=== PATIENT | male | born 1955 | race Caucasian/White ===

== ENCOUNTER 2021-04-25 10:30 | Inpatient (IN) | payer MEDICARE, BC ==
[~2021-04-25] VITALS: Ht 185.4 cm; Wt 157.2 kg
[2021-04-25] MEDS ORDERED: ACETAMINOPHEN 325 MG TABLET PO PRN (12:15)
[2021-04-25] MEDS ORDERED: METHYL SALICYLATE/MENTHOL TOPICAL OINTMENT 57GM TUBE. TP PRN (12:15)
[2021-04-25] MEDS ORDERED: MAGNESIUM HYDROXIDE 2,400 MG/30 ML ORAL.SUSP. PO PRN (12:15)
[2021-04-25] MEDS ORDERED: MAG HYDROX/AL HYDROX/SIMETH 30 ML ORAL.SUSP PO PRN ×2 (12:15→14:45)
[2021-04-25] MEDS ORDERED: SIMETHICONE 80 MG TAB.CHEW PO PRN (13:45)
[2021-04-25] MEDS ORDERED: guaiFENesin 300 MG/15 ML LIQUID PO PRN (13:45)
[2021-04-25] MEDS ORDERED: SENNOSIDES 8.6 MG TABLET PO PRN (13:45)
[2021-04-25] MEDS ORDERED: BISACODYL 10 MG SUPP.RECT RC PRN (13:45)
[2021-04-25] MEDS ORDERED: BISACODYL TAB 5 MG TABLET.DR. PO PRN (13:45)
[2021-04-25] MEDS: hydrALAZINE 25 MG TABLET PO SCH ×2 (14:00→21:33)
[2021-04-25] MEDS: ACETAMINOPHEN 500 MG TABLET PO SCH ×2 (14:00→21:34)
[2021-04-25] MEDS ORDERED: ACET500T33 PO (14:10)
[2021-04-25] MEDS ORDERED: HYDR30CR61 TP (14:10)
[2021-04-25] MEDS ORDERED: SPIR25TA5 PO (14:10)
[2021-04-25] MEDS ORDERED: MINE50OI TP (14:10)
[2021-04-25] MEDS ORDERED: MELA10TA7 PO (14:10)
[2021-04-25] MEDS ORDERED: LOPE2TAB27 PO ×2 (14:10)
[2021-04-25] MEDS ORDERED: INSU100I13 SQ (14:10)
[2021-04-25] MEDS ORDERED: SIME80TA14 PO (14:10)
[2021-04-25] MEDS ORDERED: POTA20TA4 PO (14:10)
[2021-04-25] MEDS ORDERED: [UNRECOGNIZED DRUG - OTHER] PO (14:10)
[2021-04-25] MEDS ORDERED: SENN-182 PO (14:10)
[2021-04-25] MEDS ORDERED: DULO60CA7 PO (14:10)
[2021-04-25] MEDS ORDERED: BUME2TAB3 PO (14:10)
[2021-04-25] MEDS ORDERED: HYDR-2868 PO (14:10)
[2021-04-25] MEDS ORDERED: ASPI-630 PO (14:10)
[2021-04-25] MEDS ORDERED: CYCL5TAB PO (14:10)
[2021-04-25] MEDS ORDERED: MENT3.5O TP (14:10)
[2021-04-25] MEDS ORDERED: LIPITOR80 MG PO (14:10)
[2021-04-25] MEDS ORDERED: CALC1TAB21 PO (14:10)
[2021-04-25] MEDS ORDERED: NYST15PO9 TP (14:10)
[2021-04-25] MEDS ORDERED: SITA100T PO (14:10)
[2021-04-25] MEDS ORDERED: INSU100C4 SQ (14:10)
[2021-04-25] MEDS ORDERED: METO2.5T PO (14:10)
[2021-04-25] MEDS ORDERED: PHEN26CR2 RC (14:10)
[2021-04-25] MEDS ORDERED: ARGI1POW4 PO (14:10)
[2021-04-25] MEDS ORDERED: MULT-121 PO (14:10)
[2021-04-25] MEDS ORDERED: TRAM50TA PO (14:10)
[2021-04-25] MEDS ORDERED: CARV25TA2 PO (14:10)
[2021-04-25] MEDS ORDERED: POLY17PO5 PO (14:10)
[2021-04-25] MEDS ORDERED: CLOP75TA PO (14:10)
[2021-04-25] MEDS ORDERED: BISA10SU4 RC (14:10)
[2021-04-25] MEDS ORDERED: BISA5TAB4 PO (14:10)
[2021-04-25] MEDS ORDERED: TRAZ-125 PO (14:10)
[2021-04-25] MEDS ORDERED: LIDO700A21 TP (14:10)
[2021-04-25] MEDS ORDERED: GUAI100L12 PO (14:13)
[2021-04-25] MEDS ORDERED: CYCLOBENZAPRINE 10 MG TABLET. PO PRN (14:45)
[2021-04-25] MEDS ORDERED: PHENYLEPH/MINERAL OIL/PETROLAT RECTAL OINTMENT TUBE. RC PRN (15:00)
[2021-04-25] MEDS ORDERED: LOPERAMIDE 2 MG CAPSULE PO PRN ×2 (15:00→15:15)
[2021-04-25] MEDS ORDERED: SALIVA STIMULANT AGENT 44ML SPRAY BOTTLE. PO PRN (15:15)
--- NOTE | 2021-04-25 15:30 | NUR ---
Admission Note with Justification for Admission to [facility] Patient admitted to [facility] for protective oversight for emergency stabilization of acute psychiatric crisis. Pt admitted from: LT Facility Mode of arrival: Facility Transport Accompanied By: LT Staff Precipitating behaviors that initiated intake and admission: Anxious, labile mood, grandiose, depressed, stating he wants to give up, expressing self harm thoughts, hitting head with hands Description of failure of out patient attempts at stabilization in previous setting list behavior and medication trials: Q15m checks, redirection, medication changes Behaviors and assessment findings upon admission: This nurse received report from Solange MODI at [facility] ([phone]). Pt admitted and orientated to unit. He is A&Ox4, denies SI/HI/VH/AH. He reports pain in his lower back and RUE, states he was informed by [facility] staff that [facility] would provide him with pain medications "right away." Pt does express grandiose statements such has talking about having a lot of money. Pt brought a CPAP machine; per Solange at [facility] their orders were to apply CPAP HS "at pt's home setting." Pt has a pressure ulcer on R heel, photograph taken. Per Solange at [facility], their wound care consisted of wound cleanser, silver alginate, ABD pad, and kirlex. Pt has already received his COVID and Flu vaccinations at [facility]. When CNAs attempted to transfer pt 2:1 with gait belt from w/c to bed to obtain weight, he began to refuse to cooperate and screamed profanities and yelled "I wish I had a gun so I could shoot myself." At the time of this writing staff unable to complete a head to toe skin assessment d/t pt elevated agitation in regards to standing/transferring. Plan: Admit for protective oversight for adjustment and stabilization of medications, behaviors and mood. Intense treatment regimen including groups, medication adjustments, therapy, consistent regimen for ADL's, self care, and sleep hygiene. Daily monitoring by Inpatient staff, Psychiatry, and Medical Physician.
[2021-04-25 15:43] VITALS: BP 123/79
[2021-04-25] MEDS: traMADol 50 MG TABLET PO PRN ×2 (15:51→21:58)
--- NOTE | 2021-04-25 15:54 | NUR ---
During medication administration pt was observed with a pen and paper. He states he is angry at [facility] for firmly encouraging him to stand and transfer to bed to be weighed. Pt stated, "I'm going to write that bitch up."
[2021-04-25] MEDS: INSULIN LISPRO 300 UNITS/3 ML VIAL. SQ SCH (16:30)
[2021-04-25] MEDS: LIDOCAINE (700MG/PATCH) PATCH. TP SCH (18:00)
--- NOTE | 2021-04-25 18:00 | NUR ---
Pt requesting to have a visit from a Corporate Treasurer, he states that he is a Yaz[employer]. Order placed for spiritual consult and voice message left with [facility] Corporate Treasurer Services ([phone]).
--- NOTE | 2021-04-25 18:29 | NUR ---
This nurse received a call from RIAN Narvaez at [facility]. She states after speaking with [facility] staff she learned that the settings on pt's CPAP are already preset, however at times he will refuse to wear it and staff will substitute with O2 2LPM via NC. Solange also reports that pt has history of being "manipulative" towards nursing staff as well as "pitting administration against nursing staff." She recommends staff going in to provide cares in pairs of 2 d/t this hx. Solange further reports that pt in the past has shown Liam Varner pictures of nude women on his cellphone, and claiming the women are his "girlfriend."
[2021-04-25] MEDS ORDERED: NON FORMULARY ITEM (Menthol/Zinc Oxide (Calmoseptine Ointment) 3.5 GM) TP SCH (21:00)
[2021-04-25] MEDS ORDERED: GLUTAMINE PO SCH (21:00)
[2021-04-25] MEDS: HYDROCORTISONE 2.5% RECTAL CREAM 30GM TUBE. RC SCH (21:00)
[2021-04-25] MEDS: MINERAL OIL/PETROLATUM TOPICAL CREAM 113GM JAR. TP SCH (21:00)
[2021-04-25] MEDS ORDERED: MELATONIN 3 MG TABLET PO SCH (21:00)
[2021-04-25] MEDS ORDERED: ARGININE PO SCH (21:00)
[2021-04-25] MEDS ORDERED: CALCIUM HMB PO SCH (21:00)
[2021-04-25 21:04] LABS: BACTERIA,URINE FEW /HPF (0-FEW); BILIRUBIN,URINE NEG (NEG); CLARITY,URINE CLEAR; COLOR,URINE YELLOW; GLUCOSE,URINE NEG (NEG); HYALINE CASTS, URINE FEW /HPF; NITRITE,URINE NEG (NEG); UROBILINOGEN,URINE 0.2 mg/dL (0.2 mg/dL); WBC,URINE 0 /HPF (0-4)
[2021-04-25] MEDS: ATORVASTATIN CALCIUM 20 MG TABLET PO SCH (21:29)
[2021-04-25] MEDS: traZODone 100 MG TABLET. PO SCH (21:29)
[2021-04-25] MEDS: CARVEDILOL 12.5 MG TABLET PO SCH (21:29)
[2021-04-25] MEDS: NYSTATIN TOPICAL POWDER 15GM BOTTLE. TP SCH (21:30)
[2021-04-25] MEDS: INSULIN GLARGINE SYRINGE. SQ SCH (22:09)
--- NOTE | 2021-04-26 00:03 | NUR ---
Nursing Note The patient was located in his room laying in bed for his assessment and medication pass. The patient was pleasant during interactions with this nurse and took his medication whole. The patient received PRN Tramadol per PRN order @ for shoulder pain. The patient was alert to name, date and location. The patient is currently sleeping in his room.
[2021-04-26] MEDS: traMADol 50 MG TABLET PO PRN ×4 (02:01→20:47)
[2021-04-26 03:12] LABS: HEMOGLOBIN A1C 6.6 % (4.8-5.6); THYROXINE 7.6 ug/dL (4.5-12.0)
[2021-04-26 06:31] VITALS: BP 110/77
[2021-04-26] MEDS: INSULIN LISPRO 300 UNITS/3 ML VIAL. SQ SCH ×3 (07:30→16:30)
[2021-04-26] MEDS: LINAGLIPTIN 5 MG TABLET PO SCH (08:34)
[2021-04-26] MEDS: hydrALAZINE 25 MG TABLET PO SCH (08:34)
[2021-04-26] MEDS: DULoxetine HCL 60 MG CAPSULE.DR PO SCH (08:34)
[2021-04-26] MEDS: CLOPIDOGREL BISULFATE 75 MG TABLET PO SCH (08:34)
[2021-04-26] MEDS: POTASSIUM CHLORIDE 10 MEQ TABLET.ER. PO SCH (08:34)
[2021-04-26] MEDS: CARVEDILOL 12.5 MG TABLET PO SCH ×2 (08:35→20:45)
[2021-04-26] MEDS: BUMETANIDE 1 MG TABLET PO SCH (08:35)
[2021-04-26] MEDS: ACETAMINOPHEN 500 MG TABLET PO SCH (08:36)
[2021-04-26] MEDS: ASPIRIN CHEWABLE 81 MG TABLET. PO SCH (08:36)
[2021-04-26] MEDS: LIDOCAINE (700MG/PATCH) PATCH. TP SCH (08:40)
[2021-04-26] MEDS: MINERAL OIL/PETROLATUM TOPICAL CREAM 113GM JAR. TP SCH (08:40)
[2021-04-26] MEDS: NYSTATIN TOPICAL POWDER 15GM BOTTLE. TP SCH (08:43)
[2021-04-26] MEDS: HYDROCORTISONE 2.5% RECTAL CREAM 30GM TUBE. RC SCH ×2 (08:44→20:43)
--- NOTE | 2021-04-26 08:54 | PDOC ---
Exam Note: Josef Note: Late entry for 04/25/2021.Please also refer to the separate dictated note~for this date of service dictated separately.~Patient seen individually. Discussed the patient with Nursing staff reviewed the chart.~Reviewed interim history and current functioning. Reviewed vital signs,~Labs/ Radiology~and current medica tions noted below. Continue current treatment with the changes noted in the dictated addendum note Assessment: Vital Signs/I&O: Vital Signs Date Time Temp Pulse Resp B/P (MAP) Pulse Ox O2 Delivery O2 Flow Rate FiO2 04/26/21 08:50 16 Room Air 04/26/21 08:35 90 110/77 04/26/21 06:31 97.3 93 I & O 04/25/21 04/25/21 04/26/21 15:00 23:00 07:00 Intake Total 480 ml Balance 480 ml Labs: Laboratory Tests Test 04/25/21 12:29 04/25/21 17:15 04/25/21 19:17 04/25/21 20:40 D-Dimer (Lucina) 0.55 mg/L (0.00-0.50) H Hemoglobin A1c 6.6 % (4.8-5.6) H Magnesium Level 2.1 mg/dL (1.8-2.4) Thyroxine (T4) 7.6 ug/dL (4.5-12.0) Total Triiodothyronine (TT3) 84 ng/dL (71-180) Glucose (Fingerstick) 169 mg/dL (70-99) H 157 mg/dL (70-99) H Urine Collection Type Unknown Urine Color Yellow Urine Clarity Clear Urine pH 5.5 Urine Specific [place] 1.010 Urine Protein Neg (NEG-TRACE) Urine Glucose (UA) Neg mg/dL (NEG) Urine Ketones (Stick) Neg mg/dL (NEG) Urine Blood Neg (NEG) Urine Nitrite Neg (NEG) Urine Bilirubin Neg (NEG) Urine Urobilinogen Dipstick 0.2 mg/dL (0.2 mg/dL) Urine Leukocyte Esterase Neg (NEG) Urine RBC 1-2 /HPF (0-2) Urine WBC 0 /HPF (0-4) Urine Squamous Epithelial Cells None /LPF Urine Bacteria Few /HPF (0-FEW) Urine Hyaline Casts Few /HPF Test 04/26/21 07:34 Glucose (Fingerstick) 84 mg/dL (70-99) Current Medications: Meds: Current Medications Medications (Trade) Dose Ordered Sig/Nicky Route PRN Reason Start Time Stop Time Status Last Admin Dose Admin Acetaminophen (Tylenol) 1,000 mg TID PO 04/25/21 14:00 04/26/21 08:36 Aspirin (Aspirin Chewable) 81 mg DAILY PO 04/26/21 09:00 04/26/21 08:36 Clopidogrel Bisulfate (Plavix) 75 mg DAILY PO 04/26/21 09:00 04/26/21 08:34 Duloxetine HCl (Cymbalta) 60 mg DAILY PO 04/26/21 09:00 04/26/21 08:34 Hydralazine HCl (Apresoline) 25 mg TID PO 04/25/21 14:00 04/26/21 08:34 Hydrocortisone (Proctosol-Hc) 1 neelima BID RC 04/25/21 21:00 04/26/21 08:44 Lidocaine (Lidoderm) 1 patch DAILY TP 04/25/21 18:00 04/26/21 08:40 Metolazone (Zaroxolyn) 2.5 mg QODAY PO 04/26/21 09:00 04/26/21 08:34 Nystatin (Nystop) 1 neelima BID TP 04/25/21 21:00 04/26/21 08:43 Potassium Chloride (Klor-Con) 30 meq DAILY PO 04/26/21 09:00 04/26/21 08:34 Spironolactone (Aldactone) 25 mg DAILY PO 04/26/21 09:00 04/26/21 08:34 Tramadol HCl (Ultram) 100 mg PRN Q4HRS PRN PO PAIN 04/25/21 13:45 04/26/21 08:50 Trazodone HCl (Desyrel) 200 mg HS PO 04/25/21 21:00 04/25/21 21:29 Atorvastatin Calcium (Lipitor) 80 mg QHS PO 04/25/21 21:00 04/25/21 21:29 Bumetanide (Bumex) 2 mg DAILY PO 04/26/21 09:00 04/26/21 08:35 Al Hydroxide/Mg Hydroxide (Mylanta Plus Xs) 30 ml PRN Q12HR PRN PO DYSPEPSIA 04/25/21 14:45 04/26/21 01:37 Carvedilol (Coreg) 37.5 mg BID PO 04/25/21 21:00 04/26/21 08:35 Insulin Glargine (Lantus Syringe) 48 unit QHS SQ 04/25/21 21:00 04/25/21 22:09 Melatonin (Melatonin) 9 mg QHS PO 04/25/21 21:00 04/25/21 21:29 Multi-Ingred Cream/Lotion/Oil/ Oint (Hydrocerin) 1 neelima BID TP 04/25/21 21:00 04/26/21 08:40 Multivitamins/ Calcium (Thera-M Plus) 1 tab DAILY PO 04/26/21 09:00 04/26/21 08:34 Linagliptin (Tradjenta) 5 mg DAILY PO 04/26/21 09:00 04/26/21 08:34 I have reviewed the current psychotropics carefully including drug interactions. Risk benefit ratio favors no change other than as noted in my dictated progress note. ESE LEVI MD Apr 26, 2021 08:54
[2021-04-26] MEDS ORDERED: SPIRONOLACTONE 25 MG TABLET PO SCH (09:00)
[2021-04-26] MEDS ORDERED: MULTIVITAMIN with MINERAL TABLET. PO SCH (09:00)
[2021-04-26] MEDS ORDERED: metOLazone 2.5 MG TABLET PO SCH (09:00)
--- NOTE | 2021-04-26 09:57 | NUR ---
Pt appropriate and cooperative this morning. He is compliant with whole medications. He denies SI/HI/VH/AH, he reports 10/10 pain in lower back and R shoulder, PRN medications given per MAR. He is A&Ox4. So far pt absent of exaggerated or labile affect, absent of physical/verbal aggression. He appears receptive to medication education and explanation for plan of day. He is able to make his needs known to staff. Plan of care continues, will pass to next shift.
[2021-04-26 11:40] LABS: THYROID STIM HORMONE (TSH) 1.914 uIU/mL (0.358-3.740)
--- NOTE | 2021-04-26 13:44 | NUR ---
Pt c/o of not being able to void urine completely. He states, "Something is wrong with my prostate." Per CNAs 150 mL has been emptied from his urinal x2 so far this shift and 250 mL at the start of shift. Pt speaks of his medical concerns in a self-deprecating manner, stating "I'm an utter shame," and "My life is a failure." Pt pending transfer to bed for a bladder scan.
--- NOTE | 2021-04-26 15:09 | NUR ---
Pt transferred to bed her for BM. During transfer he began to scream in pain, swear, and hit self in forehead with his hands. He states rolling onto the bed her is painful for his shoulder. He then began to speak of himself in a dramatic and negative fashion, "My life is worthless," "I'm a freak." Pt had BM and then urinated approx 300 mL. Post void bladder scan performed and revealed approx 0 mL. PRN Tramadol administered per SEP.
[2021-04-26 16:07] VITALS: BP 110/69
--- NOTE | 2021-04-26 17:34 | CONS ---
DATE OF CONSULTATION: 04/26/2021 ATTENDING PHYSICIAN: Dr. Jacobs. We were asked to see this patient for medical consultation. HISTORY OF PRESENT ILLNESS: The patient is a 66-year-old gentleman who is morbidly obese, multiple medical issues. He recently has been living at an extended care facility for the last 4 months, as he cannot take care of himself. He has what appears to be bipolar mood disorder. He is very low at this time, he has had some suicidal ideations; wants to bash his head in and ending the pain. He has also had labile moods with grandiose behavior. PAST MEDICAL HISTORY: Significant for morbid obesity. His weight in excess of 350 pounds. He has a history of old stroke, type 2 diabetes, degenerative arthritis in the knee, congestive heart failure and chronic kidney disease stage 3. ALLERGIES: He has no known drug allergies. MEDICATIONS: Reviewed. He has 40 of them by my count. They include Tylenol, aspirin, Lipitor, bisacodyl, Bumex, Coreg 37.5 mg b.i.d., Plavix, Flexeril, Cymbalta, guaifenesin, hydralazine, hydrocortisone, insulin, Lidoderm patch, Tradjenta, Imodium, magnesium hydroxide, melatonin, methyl salicylate, Zaroxolyn, nystatin, MiraLax, potassium, saliva stimulant, senna, simethicone, Aldactone, tramadol, Desyrel, and menthol. SOCIAL HISTORY: He is a nonsmoker, nondrinker. FAMILY HISTORY: Unobtainable. REVIEW OF SYSTEMS: Significant for his bipolar behavior. He is fairly alert, but when I saw him, his affect was flat. 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 There is also a nonhealing ulcer at the heel. PHYSICAL EXAMINATION: GENERAL: When I saw him, this is an obese, elderly gentleman with a flat affect. VITAL SIGNS: Initial vital signs showed a blood pressure of 110/77 mmHg. He is afebrile. Oxygen saturation 93% on room air. HEENT: Head is without trauma. Pupils are reactive. Sclerae nonicteric. Oropharynx is clear. NECK: Supple, no bruits. LUNGS: Good breath sounds. CARDIOVASCULAR: Regular heart tones. ABDOMEN: Morbidly obese. No guarding or rebound tenderness. EXTREMITIES: Show trace edema. There is surgical absence of the second and third toes of the right foot. There is a draining nonhealing ulcer of the right heel that has been dressed. SKIN: Warm and dry. PERTINENT LABORATORY STUDIES: Obtained from [facility] 2 days ago; his sodium was 133 mEq, potassium 3.2 mEq, creatinine 1.8 mg/dL, BUN 57. Hemoglobin 13.7 g with a white count of 7400. ASSESSMENT: 1. This 66-year-old gentleman has probable bipolar disorder in the depressed phase. 2. Morbid obesity. 3. Polypharmacy. He is on way too many medicines. 4. Underlying depression this admission. 5. Type 2 diabetes. 6. Nonhealing diabetic foot ulcer due to decreased circulation. RECOMMENDATIONS: 1. I will review his medication and try to simplify his regimen. He certainly does not need to be on half of these medications. I will take the liberty of stopping them. 2. Follow up chemistries. I do believe that his elevated creatinine is due to his diuresis. Thank you again for asking to see the patient for medical consultation. I will manage his meds for now and hopefully get him tuned up a bit. We should gladly follow along during his inpatient stay. LORI/CALIXTO DR: ANGEL/luis TID: [id number]
--- NOTE | 2021-04-26 17:47 | HP ---
ADMIT DATE: 04/25/2021 PSYCHIATRIC ADMISSION HISTORY/EVALUATION This is a late entry, date of service 04/25/2021, covers elements not covered in my initial note on 04/25/2021. I met with the patient on the evening of 04/25/2021 for this evaluation. Previously discussed with nursing staff and Shiloh Almanzar, audio visual collections coordinator. IDENTIFYING DATA: The patient is a 66-year-old male referred to us from [facility] by his primary care physician/psychiatrist on account of worsening symptoms of depression, increased anxiety, marked mood lability, being quite grandiose at other times and irritable. Reportedly, he has been depressed and wants to "give up." He has expressed thoughts of hurting himself, hitting himself in the head with his hands repeatedly observed by nursing staff. Behaviors have been deemed dangerous, unmanageable at the facility. He has failed outpatient psychiatric interventions resulting in this referral. CHIEF COMPLAINT: "Yes, I have been very depressed. I also have panic attacks. I have had these problems for about 6 years, but it is getting much worse recently. My of 25 years in 2017 from a pulmonary embolism. She was a tier lift operator. We went to bed at night and when I woke up in the morning she was gone. She was just age 51. 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 Everything changed after that. 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 He has been quite erratic in his behaviors; admits to feeling helpless, hopeless, worthless, but denies current suicidal ideation or homicidal ideation. No clear psychotic symptoms. Cognitively, he is reasonably intact. PAST PSYCHIATRIC HISTORY: As above. MEDICAL HISTORY: Morbid obesity, status post CVA, type 2 diabetes mellitus, osteoarthritis of the knees, CHF, chronic kidney disease stage III, hypertension, dysphagia, coronary artery bypass graft, obstructive sleep apnea, dysphagia, polyphagia, current pressure ulcer, right heel. ACCU-CHEKS: Before meals and at bedtime. CODE STATUS: Full code. DRUG ALLERGIES: Negative. DIET: Mechanical soft ADA renal, cardiac. Takes medications whole. Ambulates, 1-2 person transfer, in his own personal wheelchair. UA is awaited. Earlier in the day, per nursing report, the patient had some grandiose language, was verbally aggressive, resisting a transfer to the toilet. Reportedly, became angry at the DESULFURIZER OPERATOR and asked for paper and a pen to write a grievance against the DESULFURIZER OPERATOR. Per nursing report, he bragged "I am going to write that bitch up." Nursing staff had called me at that time, they have contacted the snf, who shared similar behaviors at their facility and suggested staff should go into the room in pairs. He is also wanting a spiritual consult. CURRENT PSYCHOTROPICS: Trazodone 200 mg at bedtime. He is also on a CPAP machine. FAMILY HISTORY: Noncontributory. SOCIAL HISTORY: No alcohol, drug abuse, physical, sexual or elder abuse history is noted. He is not known to be a perpetrator. REACTION TO HOSPITALIZATION: The patient accepting of it. REVIEW OF SYSTEMS: Ambulation impaired. No CV, , pulmonary, eye system symptoms on review. MENTAL STATUS EXAM: The patient was seen individually evening of 04/25/2021. He is very verbal, forthcoming, somewhat distractible, anxious, hyperverbal at times, but subjectively admits to feeling very depressed and anxious. No active suicidal or homicidal ideation. Cognitively reasonably intact. LABORATORY DATA: Reviewed. IMPRESSION: Major depressive disorder, recurrent; anxiety disorder, unspecified; impulse control disorder, unspecified. Rest as above. PLAN: Admit to Geropsychiatry unit at [facility]. I will see the patient daily individually from a psychiatric standpoint, medical followup, Dr. Gandhi/Dr. Hendrickson. Continue current psychotropics. Consider adding Zoloft or Celexa as an antidepressant post-baseline assessment. If marked mood lability is evident we will look at other options. ESTIMATED LENGTH OF STAY: 10-12 days. DISPOSITION PLANS: Back to snf when stable. YAIMA DR: Reid TID: [id number]
[2021-04-26] MEDS: ATORVASTATIN CALCIUM 20 MG TABLET PO SCH (20:44)
[2021-04-26] MEDS: traZODone 100 MG TABLET. PO SCH (20:44)
[2021-04-26] MEDS: INSULIN GLARGINE SYRINGE. SQ SCH (20:46)
--- NOTE | 2021-04-26 20:47 | NUR ---
Patient reports pain 8/10 in his back. PRN tramadol given for pain per patient request. Will continue to monitor.
--- NOTE | 2021-04-26 21:42 | PDOC ---
Exam Note: Josef Note: Please also refer to the separate dictated note~for this date of service dictated separately.~Patient seen individually. Discussed the patient with Nursing staff reviewed the chart.~Reviewed interim history and current functioning. Reviewed vital signs,~Labs/ Radiology~and current medications noted below. Continue current treatment with the changes noted in the dictated addendum note Assessment: Vital Signs/I&O: Vital Signs Date Time Temp Pulse Resp B/P (MAP) Pulse Ox O2 Delivery O2 Flow Rate FiO2 04/26/21 20:45 67 110/69 04/26/21 18:25 96 Room Air 04/26/21 17:22 18 04/26/21 16:07 97.5 I & O 04/25/21 04/25/21 04/26/21 15:00 23:00 07:00 Intake Total 480 ml Balance 480 ml Labs: Laboratory Tests Test 04/26/21 07:34 04/26/21 12:02 04/26/21 16:36 04/26/21 19:34 Glucose (Fingerstick) 84 mg/dL (70-99) 148 mg/dL (70-99) H 81 mg/dL (70-99) 182 mg/dL (70-99) H Current Medications: Meds: Laboratory Tests Test 04/26/21 07:34 04/26/21 12:02 04/26/21 16:36 04/26/21 19:34 Glucose (Fingerstick) 84 mg/dL 148 mg/dL 81 mg/dL 182 mg/dL Current Medications Medications (Trade) Dose Ordered Sig/Nicky Route PRN Reason Start Time Stop Time Status Last Admin Dose Admin Acetaminophen (Tylenol) 650 mg PRN Q6HRS PRN PO MILD PAIN / TEMP > 100.3'F 04/25/21 12:15 04/25/21 14:18 DC Multi-Ingredient Ointment (Analgesic [place]) 1 neelima PRN QID PRN TP MUSCLE PAIN 04/25/21 12:15 Al Hydroxide/Mg Hydroxide (Mylanta Plus Xs) 15 ml PRN AFTMEALHC PRN PO DYSPEPSIA 04/25/21 12:15 04/26/21 10:24 DC Magnesium Hydroxide (Milk Of Magnesia) 2,400 mg PRN QHS PRN PO 2nd choice CONSTIPATION 04/25/21 12:15 04/26/21 10:24 DC Acetaminophen (Tylenol) 1,000 mg TID PO 04/25/21 14:00 04/26/21 10:24 DC 04/26/21 08:36 Aspirin (Aspirin Chewable) 81 mg DAILY PO 04/26/21 09:00 04/26/21 08:36 Bisacodyl (Dulcolax Tab) 10 mg PRN BID PRN PO 3rd choice CONSTIPATION 04/25/21 13:45 04/26/21 10:24 DC Bisacodyl (Dulcolax Supp) 10 mg PRN DAILY PRN RC 4th choice CONSTIPATION 04/25/21 13:45 04/26/21 10:24 DC Clopidogrel Bisulfate (Plavix) 75 mg DAILY PO 04/26/21 09:00 04/26/21 08:34 Duloxetine HCl (Cymbalta) 60 mg DAILY PO 04/26/21 09:00 04/26/21 08:34 Guaifenesin (Robitussin) 200 mg PRN Q4HRS PRN PO COUGH 04/25/21 13:45 04/26/21 10:24 DC Hydralazine HCl (Apresoline) 25 mg TID PO 04/25/21 14:00 04/26/21 10:24 DC 04/26/21 08:34 Hydrocortisone (Proctosol-Hc) 1 neelima BID RC 04/25/21 21:00 04/26/21 20:43 Lidocaine (Lidoderm) 1 patch DAILY TP 04/25/21 18:00 04/26/21 08:40 Metolazone (Zaroxolyn) 2.5 mg QODAY PO 04/26/21 09:00 04/26/21 10:24 DC 04/26/21 08:34 Nystatin (Nystop) 1 neelima BID TP 04/25/21 21:00 04/26/21 10:24 DC 04/26/21 08:43 Polyethylene Glycol (miraLAX) 17 gm PRN DAILY PRN PO 1st choice CONSTIPATION 04/25/21 13:45 Potassium Chloride (Klor-Con) 30 meq DAILY PO 04/26/21 09:00 04/26/21 08:34 Sennosides (Senna) 8.6 mg PRN QHS PRN PO constipation 04/25/21 13:45 04/26/21 10:24 DC Simethicone (Gas-X) 80 mg PRN BID PRN PO gas 04/25/21 13:45 04/26/21 10:24 DC Spironolactone (Aldactone) 25 mg DAILY PO 04/26/21 09:00 04/26/21 10:24 DC 04/26/21 08:34 Tramadol HCl (Ultram) 100 mg PRN Q4HRS PRN PO PAIN 04/25/21 13:45 04/26/21 20:47 Trazodone HCl (Desyrel) 200 mg HS PO 04/25/21 21:00 04/26/21 20:44 Non-Formulary Medication (Arginine/ Glutamine/Calcium Hmb (Stephen Packet)) 1 each BID PO 04/25/21 21:00 04/25/21 15:06 DC Atorvastatin Calcium (Lipitor) 80 mg QHS PO 04/25/21 21:00 04/26/21 20:44 Bumetanide (Bumex) 2 mg DAILY PO 04/26/21 09:00 04/26/21 08:35 Al Hydroxide/Mg Hydroxide (Mylanta Plus Xs) 30 ml PRN Q12HR PRN PO DYSPEPSIA 04/25/21 14:45 04/26/21 10:24 DC 04/26/21 01:37 Carvedilol (Coreg) 37.5 mg BID PO 04/25/21 21:00 04/26/21 20:45 Cyclobenzaprine HCl (Flexeril) 5 mg PRN BID PRN PO MUSCLE SPASMS 04/25/21 14:45 04/26/21 10:24 DC Insulin Human Lispro (HumaLOG) 8 units TIDBFRMEAL SQ 04/25/21 16:30 04/26/21 12:18 Insulin Glargine (Lantus Syringe) 48 unit QHS SQ 04/25/21 21:00 04/26/21 20:46 Loperamide HCl (Imodium) 2 mg PRN Q1HR PRN PO severe DIARRHEA 04/25/21 15:00 04/26/21 10:24 DC Loperamide HCl (Imodium) 2 mg PRN Q6HRS PRN PO MILD-MOD DIARRHEA 04/25/21 15:15 04/26/21 10:24 DC Melatonin (Melatonin) 9 mg QHS PO 04/25/21 21:00 04/26/21 10:24 DC 04/25/21 21:29 Non-Formulary Medication (Menthol/Zinc Oxide (Calmoseptine Ointment)) 3.5 gm BID TP 04/25/21 21:00 04/25/21 14:56 DC Multi-Ingred Cream/Lotion/Oil/ Oint (Hydrocerin) 1 neelima BID TP 04/25/21 21:00 04/26/21 10:24 DC 04/26/21 08:40 Multivitamins/ Calcium (Thera-M Plus) 1 tab DAILY PO 04/26/21 09:00 04/26/21 10:24 DC 04/26/21 08:34 Phenyleph/Shark Oil/Min Oil/Petrol (Preparation H) 1 neelima PRN Q12HR PRN RC RECTAL PAIN 04/25/21 15:00 04/26/21 10:24 DC Linagliptin (Tradjenta) 5 mg DAILY PO 04/26/21 09:00 04/26/21 08:34 Saliva Substitute (Biotene Moisturizing Mouth) 1 spray PRN Q1HR PRN PO DRY MOUTH 04/25/21 15:15 Duloxetine HCl (Cymbalta) 30 mg DAILY PO 04/27/21 09:00 Current Medications Medications (Trade) Dose Ordered Sig/Nicky Route PRN Reason Start Time Stop Time Status Last Admin Dose Admin Aspirin (Aspirin Chewable) 81 mg DAILY PO 04/26/21 09:00 04/26/21 08:36 Clopidogrel Bisulfate (Plavix) 75 mg DAILY PO 04/26/21 09:00 04/26/21 08:34 Duloxetine HCl (Cymbalta) 60 mg DAILY PO 04/26/21 09:00 04/26/21 08:34 Metolazone (Zaroxolyn) 2.5 mg QODAY PO 04/26/21 09:00 04/26/21 10:24 DC 04/26/21 08:34 Potassium Chloride (Klor-Con) 30 meq DAILY PO 04/26/21 09:00 04/26/21 08:34 Spironolactone (Aldactone) 25 mg DAILY PO 04/26/21 09:00 04/26/21 10:24 DC 04/26/21 08:34 Bumetanide (Bumex) 2 mg DAILY PO 04/26/21 09:00 04/26/21 08:35 Multivitamins/ Calcium (Thera-M Plus) 1 tab DAILY PO 04/26/21 09:00 04/26/21 10:24 DC 04/26/21 08:34 Linagliptin (Tradjenta) 5 mg DAILY PO 04/26/21 09:00 04/26/21 08:34 I have reviewed the current psychotropics carefully including drug interactions. Risk benefit ratio favors no change other than as noted in my dictated progress note. Diagnosis: Problems: (1) Major depressive disorder, recurrent (2) Anxiety disorder, unspecified (3) Impulse control disorder, unspecified ESE LEVI MD Apr 26, 2021 21:41
--- NOTE | 2021-04-27 00:12 | NUR ---
Patient was interactive and pleasant during assessment. Throughout the shift he has had brief episodes of anger, in which he swears and yells out, then immediately apologizes. Patient stated it frustrates him that he cannot do things for himself anymore and that he is in constant pain from his back, shoulder and arm. He asked nurse if she thought he has Tourette Syndrome. Nurse stated that it is not likely, his word outbursts come when he is angry, not just randomly like what is usually observed in Tourettes. Patient then stated that he feels frustrated often and may have "anger management" issues. Patient has not had any episodes of "hitting himself in the head" so far this shift and denies SI when asked directly. Patient compliant with medications and SQ insulin injection. Right heel pressure wound cleansed with saline wash, then wrapped with ABD pad and Kerlix per directions from nurse on former shift. Wound consult had previously been ordered. Patient stated that he was feeling anxious at around 2300, he has no prescribed anxiety medication available. This nurse spoke with Lyn, nursing linen room supervisor, about getting a bariatric bed for patient. He is 6'3" and 334 LBS and is too tall for the [facility] bed. [facility] ordered bariatric bed, which will be here 04/27 at around 0800.
[2021-04-27] MEDS: traMADol 50 MG TABLET PO PRN ×2 (01:57→06:06)
--- NOTE | 2021-04-27 02:04 | NUR ---
patient requested PRN pain medication for back pain, arm pain and shoulder pain. PRN tramadol provided as prescribed. Will continue to monitor.
--- NOTE | 2021-04-27 06:06 | NUR ---
Patient has been asking for PRN tramadol since 0500. Tramadol given per order PRN Q4hrs. Patients pain does not seem to be controlled with Tramadol. Will pass on in shift report to day nurse to speak to hospitalist about it.
[2021-04-27 06:19] VITALS: BP 94/62
[2021-04-27] MEDS: INSULIN LISPRO 300 UNITS/3 ML VIAL. SQ SCH ×3 (07:30→16:30)
--- NOTE | 2021-04-27 07:52 | NUR ---
Pt's morning blood sugar 64, 8 oz of orange juice provided and insulin held
[2021-04-27] MEDS: HYDROCORTISONE 2.5% RECTAL CREAM 30GM TUBE. RC SCH ×2 (09:00→20:58)
[2021-04-27] MEDS ORDERED: DULoxetine HCL 30 MG CAPSULE.DR PO SCH (09:00)
[2021-04-27] MEDS: LIDOCAINE (700MG/PATCH) PATCH. TP SCH (09:20)
[2021-04-27] MEDS: BUMETANIDE 1 MG TABLET PO SCH (09:20)
[2021-04-27] MEDS: CLOPIDOGREL BISULFATE 75 MG TABLET PO SCH (09:21)
[2021-04-27] MEDS: LINAGLIPTIN 5 MG TABLET PO SCH (09:21)
[2021-04-27] MEDS: DULoxetine HCL 60 MG CAPSULE.DR PO SCH (09:21)
[2021-04-27] MEDS: ASPIRIN CHEWABLE 81 MG TABLET. PO SCH (09:21)
[2021-04-27] MEDS: POTASSIUM CHLORIDE 10 MEQ TABLET.ER. PO SCH (09:21)
[2021-04-27] MEDS: CARVEDILOL 12.5 MG TABLET PO SCH ×2 (09:22→20:58)
--- NOTE | 2021-04-27 11:03 | NUR ---
Pt began the morning calling out repeatedly for assistance in a rapid fashion. After pt was informed that someone would assist him as soon as they are able pt called out from his room loudly and very dramatically, "Oh, I guess everyone is too busy to help me!" This nurse, who was assembling his morning medications in the S Nurse station by his room, called out to him by name and said that I was on my way. Upon entering pt's room he appeared to be sulking in bed and said, "I'm sorry for yelling. I was told to 'knock it off'." At no time did any staff member instruct pt to "knock it off" in regards to any behavior during the morning. Pt A&O x4 absent of SI/HI/VH/AH/delusions. Pt compliant with morning medications, Lidocaine patch applied to R shoulder. His bedside urinal was emptied which contained approx 150 mL of clear dark yellow urine. The unit is pending a delivery for a bariatric bed for pt to sleep in. When asked what he needed assistance with which required a rapid repetition of yelling out for staff pt replied, "I need the head of my bed lowered a little." His request was accommodated for. Pt is currently in bed sleeping slightly on his L side. His Tramadol order has been d/c by Dr Hendrickson, and he has given a new order for Percocet 10/325mg 1 tab PO Q6HPRN for pain. Pt is pending dressing change and assessment to wound on R heel. He is also pending a wound care consult during the weekday. Plan of care continues, will pass to next shift.
--- NOTE | 2021-04-27 12:40 | PN ---
DATE: 04/26/2021 PSYCHIATRIC PROGRESS NOTE SUBJECTIVE: I met with the patient in his room. Discussed with RIAN Pappas. The patient slept 4-1/2 hours previous night. Alert, oriented x4. Denies suicidal ideation. Compliant with medications. However, as I met with him in the evening, as I entered the room, he was hitting his head really hard with his hand, complained of having back pain, but he was not able to get the next dosage of tramadol for another 45 minutes. I discussed this with RIAN Restrepo at the shift manager. He denies suicidal ideation. He has been making statements that he feels shameful of himself. He has had limited cooperation with transfers, or for rolling on to his bed, needing a Shyam lift. REVIEW OF SYSTEMS: Positive for back pain, impaired ambulation. No CV, , pulmonary, eye system symptoms on review. MENTAL STATUS EXAMINATION: Reasonably oriented. Speech has some latency coherent. Abstraction fair. Computation impaired. Language function intact. Mood and affect depressed, quiet, withdrawn, irritable. Labs reviewed. Denies suicidal ideation. DIAGNOSIS: Major depressive disorder, severe; anxiety disorder, unspecified. PLAN: Start Cymbalta 30 mg a day. We will increase gradually. Cymbalta will be preferable given his significant pain symptoms. I addressed this at some length with him. Maintain trazodone 200 mg at bedtime. Reviewed drug interactions. SEB/JORGE LUIS DR: Reid TID: [id number]
--- NOTE | 2021-04-27 13:41 | NUR ---
Per Solange at [facility] during pre-admission report, pt's wound care on R heel consisted of wound cleanser, silver alginate, ABD pad, and kirlex. [facility] does not have silver alginate dressings, however we do have Chitosan-based gelling fiber with antimicrobial silver. This nurse spoke with Cushion Assembler Olga, who suggested that this dressing may be a suitable substitute that is closest to [facility]'s wound care until we get further guidance from [facility]'s wound care nurse. Wound cleansed, chitosan-based fiber with silver pad and ABD pad applied, wrapped with kirlex.
--- NOTE | 2021-04-27 15:24 | NUR ---
Received a call from Froylan, pt's son/POJone, inquiring to speak to pt. Pt consented to speak with son. Prior to transfer of call, Froylan spoke of his concerns regarding pt's hx of behaviors. Froylan reported that pt is "cyclical and on going" with dramatic behaviors and language, and states he has copious text messages from pt in the past where pt has threatened suicide or implied about . Froylan also states that this is the 1st successful hospitalization that LTC has been able to do with pt, and the last time LTC attempted inpatient psych care that pt "tried to put himself in hospice out of attention." Froylan states he is concerned about his father "talking himself out of the hospitalization," and stated that once he was on a 48 hour suicide hold after the of his and somehow "convinced the assistant professor nurse education to let him go after 4 hours." Froylan also states that prior to admission pt (who is a self sign) sent texts saying that he was "coerced" to sign the consents for treatment for [facility]. This nurse encouraged Froylan to speak his concerns with SW on Wednesday, and the call was transferred to pt.
[2021-04-27 15:46] VITALS: BP 118/89
[2021-04-27] MEDS: oxyCODONE/APAP 10/325 1 TAB TABLET PO PRN ×2 (16:15→23:49)
[2021-04-27] MEDS: ATORVASTATIN CALCIUM 20 MG TABLET PO SCH (20:57)
[2021-04-27] MEDS: traZODone 100 MG TABLET. PO SCH (20:57)
[2021-04-27] MEDS: INSULIN GLARGINE SYRINGE. SQ SCH (21:04)
--- NOTE | 2021-04-27 21:46 | PDOC ---
Exam Note: Josef Note: Please also refer to the separate dictated note~for this date of service dictated separately.~Patient seen individually. Discussed the patient with Nursing staff reviewed the chart.~Reviewed interim history and current functioning. Reviewed vital signs,~Labs/ Radiology~and current medications noted below. Continue current treatment with the changes noted in the dictated addendum note Assessment: Vital Signs/I&O: Vital Signs Date Time Temp Pulse Resp B/P (MAP) Pulse Ox O2 Delivery O2 Flow Rate FiO2 04/27/21 20:58 92 118/89 04/27/21 15:46 97.4 18 98 Room Air 04/27/21 06:19 2.0 I & O 04/26/21 04/26/21 04/27/21 15:00 23:00 07:00 Intake Total 750 ml 840 ml Output Total 650 ml 975 ml Balance 100 ml -135 ml Labs: Laboratory Tests Test 04/27/21 07:39 04/27/21 11:43 04/27/21 16:56 04/27/21 20:50 Glucose (Fingerstick) 64 mg/dL (70-99) L 102 mg/dL (70-99) H 152 mg/dL (70-99) H 134 mg/dL (70-99) H Current Medications: Meds: Laboratory Tests Test 04/27/21 07:39 04/27/21 11:43 04/27/21 16:56 04/27/21 20:50 Glucose (Fingerstick) 64 mg/dL 102 mg/dL 152 mg/dL 134 mg/dL Current Medications Medications (Trade) Dose Ordered Sig/Nicky Route PRN Reason Start Time Stop Time Status Last Admin Dose Admin Acetaminophen (Tylenol) 650 mg PRN Q6HRS PRN PO MILD PAIN / TEMP > 100.3'F 04/25/21 12:15 04/25/21 14:18 DC Multi-Ingredient Ointment (Analgesic [place]) 1 neelima PRN QID PRN TP MUSCLE PAIN 04/25/21 12:15 Al Hydroxide/Mg Hydroxide (Mylanta Plus Xs) 15 ml PRN AFTMEALHC PRN PO DYSPEPSIA 04/25/21 12:15 04/26/21 10:24 DC Magnesium Hydroxide (Milk Of Magnesia) 2,400 mg PRN QHS PRN PO 2nd choice CONSTIPATION 04/25/21 12:15 10/16/21 10:24 DC Acetaminophen (Tylenol) 1,000 mg TID PO 04/25/21 14:00 04/26/21 10:24 DC 04/26/21 08:36 Aspirin (Aspirin Chewable) 81 mg DAILY PO 04/26/21 09:00 04/27/21 09:21 Bisacodyl (Dulcolax Tab) 10 mg PRN BID PRN PO 3rd choice CONSTIPATION 04/25/21 13:45 04/26/21 10:24 DC Bisacodyl (Dulcolax Supp) 10 mg PRN DAILY PRN RC 4th choice CONSTIPATION 04/25/21 13:45 04/26/21 10:24 DC Clopidogrel Bisulfate (Plavix) 75 mg DAILY PO 04/26/21 09:00 04/27/21 09:21 Duloxetine HCl (Cymbalta) 60 mg DAILY PO 04/26/21 09:00 04/27/21 20:03 DC 04/27/21 09:21 Guaifenesin (Robitussin) 200 mg PRN Q4HRS PRN PO COUGH 04/25/21 13:45 04/26/21 10:24 DC Hydralazine HCl (Apresoline) 25 mg TID PO 04/25/21 14:00 04/26/21 10:24 DC 04/26/21 08:34 Hydrocortisone (Proctosol-Hc) 1 neelima BID RC 04/25/21 21:00 04/27/21 09:00 Lidocaine (Lidoderm) 1 patch DAILY TP 04/25/21 18:00 04/27/21 09:20 Metolazone (Zaroxolyn) 2.5 mg QODAY PO 04/26/21 09:00 04/26/21 10:24 DC 04/26/21 08:34 Nystatin (Nystop) 1 neelima BID TP 04/25/21 21:00 04/26/21 10:24 DC 04/26/21 08:43 Polyethylene Glycol (miraLAX) 17 gm PRN DAILY PRN PO 1st choice CONSTIPATION 04/25/21 13:45 Potassium Chloride (Klor-Con) 30 meq DAILY PO 04/26/21 09:00 04/27/21 09:21 Sennosides (Senna) 8.6 mg PRN QHS PRN PO constipation 04/25/21 13:45 04/26/21 10:24 DC Simethicone (Gas-X) 80 mg PRN BID PRN PO gas 04/25/21 13:45 04/26/21 10:24 DC Spironolactone (Aldactone) 25 mg DAILY PO 04/26/21 09:00 04/26/21 10:24 DC 04/26/21 08:34 Tramadol HCl (Ultram) 100 mg PRN Q4HRS PRN PO PAIN 04/25/21 13:45 04/27/21 10:01 DC 04/27/21 06:06 Trazodone HCl (Desyrel) 200 mg HS PO 04/25/21 21:00 04/27/21 20:57 Non-Formulary Medication (Arginine/ Glutamine/Calcium Hmb (Stephen Packet)) 1 each BID PO 04/25/21 21:00 04/25/21 15:06 DC Atorvastatin Calcium (Lipitor) 80 mg QHS PO 04/25/21 21:00 04/27/21 20:57 Bumetanide (Bumex) 2 mg DAILY PO 04/26/21 09:00 04/27/21 09:20 Al Hydroxide/Mg Hydroxide (Mylanta Plus Xs) 30 ml PRN Q12HR PRN PO DYSPEPSIA 04/25/21 14:45 04/26/21 10:24 DC 04/26/21 01:37 Carvedilol (Coreg) 37.5 mg BID PO 04/25/21 21:00 04/27/21 20:58 Cyclobenzaprine HCl (Flexeril) 5 mg PRN BID PRN PO MUSCLE SPASMS 04/25/21 14:45 04/26/21 10:24 DC Insulin Human Lispro (HumaLOG) 8 units TIDBFRMEAL SQ 04/25/21 16:30 04/26/21 12:18 Insulin Glargine (Lantus Syringe) 48 unit QHS SQ 04/25/21 21:00 04/27/21 21:04 Loperamide HCl (Imodium) 2 mg PRN Q1HR PRN PO severe DIARRHEA 04/25/21 15:00 04/26/21 10:24 DC Loperamide HCl (Imodium) 2 mg PRN Q6HRS PRN PO MILD-MOD DIARRHEA 04/25/21 15:15 04/26/21 10:24 DC Melatonin (Melatonin) 9 mg QHS PO 04/25/21 21:00 04/26/21 10:24 DC 04/25/21 21:29 Non-Formulary Medication (Menthol/Zinc Oxide (Calmoseptine Ointment)) 3.5 gm BID TP 04/25/21 21:00 04/25/21 14:56 DC Multi-Ingred Cream/Lotion/Oil/ Oint (Hydrocerin) 1 neelima BID TP 04/25/21 21:00 04/26/21 10:24 DC 04/26/21 08:40 Multivitamins/ Calcium (Thera-M Plus) 1 tab DAILY PO 04/26/21 09:00 04/26/21 10:24 DC 04/26/21 08:34 Phenyleph/Shark Oil/Min Oil/Petrol (Preparation H) 1 neelima PRN Q12HR PRN RC RECTAL PAIN 04/25/21 15:00 04/26/21 10:24 DC Linagliptin (Tradjenta) 5 mg DAILY PO 04/26/21 09:00 04/27/21 09:21 Saliva Substitute (Biotene Moisturizing Mouth) 1 spray PRN Q1HR PRN PO DRY MOUTH 04/25/21 15:15 Duloxetine HCl (Cymbalta) 30 mg DAILY PO 04/27/21 09:00 04/27/21 07:48 DC Oxycodone/ Acetaminophen (Percocet 10/325) 1 tab PRN Q6HRS PRN PO PAIN 04/27/21 10:00 04/27/21 16:15 Duloxetine HCl (Cymbalta) 90 mg DAILY PO 04/28/21 09:00 Current Medications Medications (Trade) Dose Ordered Sig/Nicky Route PRN Reason Start Time Stop Time Status Last Admin Dose Admin Oxycodone/ Acetaminophen (Percocet 10/325) 1 tab PRN Q6HRS PRN PO PAIN 04/27/21 10:00 04/27/21 16:15 I have reviewed the current psychotropics carefully including drug interactions. Risk benefit ratio favors no change other than as noted in my dictated progress note. Diagnosis: Problems: (1) Major depressive disorder, severe (2) Impulse control disorder, unspecified (3) Anxiety disorder, unspecified AMITA,MAN M MD Apr 27, 2021 21:46
--- NOTE | 2021-04-27 22:59 | NUR ---
Pt laying in bed this evening. Pt interactive and compliant with whole medications. Pt attention seeking and yelling out occasionally. Pt c/o pain to right shoulder 04/20. Pt was informed that he had 2 more hours to wait to receive pain medication.
[2021-04-28 06:03] VITALS: BP 106/73
[2021-04-28] MEDS: oxyCODONE/APAP 10/325 1 TAB TABLET PO PRN ×3 (06:05→21:01)
[2021-04-28] MEDS: INSULIN LISPRO 300 UNITS/3 ML VIAL. SQ SCH ×3 (07:30→17:49)
[2021-04-28] MEDS: HYDROCORTISONE 2.5% RECTAL CREAM 30GM TUBE. RC SCH (09:00)
[2021-04-28] MEDS: LIDOCAINE (700MG/PATCH) PATCH. TP SCH (09:37)
[2021-04-28] MEDS: ASPIRIN CHEWABLE 81 MG TABLET. PO SCH (09:38)
[2021-04-28] MEDS: POTASSIUM CHLORIDE 10 MEQ TABLET.ER. PO SCH (09:38)
[2021-04-28] MEDS: DULoxetine HCL 30 MG CAPSULE.DR PO SCH (09:38)
[2021-04-28] MEDS: LINAGLIPTIN 5 MG TABLET PO SCH (09:38)
[2021-04-28] MEDS: CLOPIDOGREL BISULFATE 75 MG TABLET PO SCH (09:38)
[2021-04-28] MEDS: BUMETANIDE 1 MG TABLET PO SCH (09:39)
[2021-04-28] MEDS: CARVEDILOL 12.5 MG TABLET PO SCH ×2 (09:39→21:00)
--- NOTE | 2021-04-28 10:38 | EKG ---
[address] [address] Test Date: 2021-04-25 Test Time: 21:26:45 Pat Name: MARTA ARIZA Department: Room: [address] [place] [address] Gender: M Nurse Obgyn: : 1955 Requested By: ESE LEVI Order Number: [id number] Reading MD: Oswaldo Arguello MD Measurements Intervals [place] Rate: P: WA: QRS: QRSD: T: QT: QTc: Interpretive Statements POOR QUALITY EKG LBBB POOR R WAVE PROGRESSION CONSIDER V-PACED RHYTHM POSSIBLE UNDERLYING ATRIAL FIBRILLATION REPEAT 12 LEAD Electronically Signed On 04-28-2021 10:38:25 CDT by Oswaldo Arguello MD
--- NOTE | 2021-04-28 12:15 | NUR ---
ACTIVITY THERAPY ASSESSMENT completed based on notes, observation and interview. Pt was sitting in the hallway eating his lunch. Pt was willing to answer assessment questions and was pleasant. SOIL SCIENCE TEACHER, asked what activities he enjoys and he said Richard, poker and watching the Lyst game. Pt went off topic a couple of times but was redirectable. Pt talked in length about his . 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 Pt was able to answer orientation questions without error. Pt did express that he acted poorly towards staff and asked SOIL SCIENCE TEACHER to extend his apology. Pt was offered a few magazines to keep in his room which he accepted. Initial goal aimed to increase socialization and self-esteem development. Pt will participate in at least five Activity Therapy session per week. Addendum: 04/28/21 at 1556 by FORTUNATO NAM ACT Pt denied SI during time of assessment but said that early in the morning he experienced SI Addendum: 05/12/21 at 1313 by FORTUNATO NAM ACT Goal changed 05/12:Pt will participate in at all Activity Therapy session offered
--- NOTE | 2021-04-28 13:00 | NUR ---
Nursing note: Pt has been attention seeking and somatic this shift. Upon entering his room this AM, he immediately began apologizing for not being "cooperative". Pt then stated that he needed to get into bed to lay down in order to urinate because "I can't pee while sitting in this wheelchair". Pt encouraged to use the toilet when he needed to go to the bathroom, but was insistent on using the urinal. Pt agreed to let me change the dressing on his heel first. Therapy then walked in and assisted pt back to bed with the intent of working on exercises. Pt stated he hasn't "been able to bear weight for several months." He was then able to stand up from his wheelchair with some assistance and transfer himself to his bed. When therapy asked him to do exercises, he very dramatically laid himself down in his bed and proceeded to turn from one side to another in order to get his pants down. Pt was getting angry with himself and yelling out, attempting to yell out encouraging words for himself in order to complete his task. Pt continued to attempt to get his pants off on his own and stated "I'm sorry you guys have to witness this and me being overdramatic and hopeless." Pt was assisted with his urinal and began massaging his lower abdomen stating "you just have to milk the cow." Pt continued to do this for a short time and then said he was done. Pt did not urinate but said "the pressure was relieved". Pt continued to lay in bed to allow me to finish his dressing change. Pt's leg was propped up on pillows to allow for leg to be wrapped easier. Pt continued yell out, saying another staff member was needed to hold his leg up. He then started yelling at himself while holding onto the side rail, "Don't hyperventilate! Don't hyperventilate! Just breathe! You can do it!" I was encouraging him the entire time, that with his leg being propped on the pillow, he did not need to hold his leg up and that I was just about finished with his dressing. Pt then began hitting himself in the face with his hands. He quickly stopped with redirection and apologized for his behaviors. Will continue to monitor.
--- NOTE | 2021-04-28 15:49 | NUR ---
WEEKLY ACTIVITY THERAPY NOTE Date of Admission:04/25/21 Date of AT Assessment: 04/28 Precipitating behaviors that initiated intake and admission:Anxious, labile mood, grandiose, depressed, stating he wants to give up, expressing self harm thoughts, hitting head with hands Goal aimed: increase socialization and self-esteem development Initial Goal: Pt will participate in at least five Activity Therapy session per week Weekly progress towards goal: goal evaluation begins next week Group participation level: NA Weekly highlights: arrived on [facility] Behaviors observed: Plan: goal evaluation begins next week Beneficial adaptations: TBD
[2021-04-28 15:50] VITALS: BP 117/80
[2021-04-28] MEDS: traZODone 100 MG TABLET. PO SCH (20:59)
[2021-04-28] MEDS: ATORVASTATIN CALCIUM 20 MG TABLET PO SCH (20:59)
[2021-04-28] MEDS ORDERED: HYDROCORTISONE 2.5% RECTAL CREAM 30GM TUBE. RC PRN (21:00)
[2021-04-28] MEDS: INSULIN GLARGINE SYRINGE. SQ SCH (21:03)
--- NOTE | 2021-04-28 21:37 | PDOC ---
Exam Note: Josef Note: Please also refer to the separate dictated note~for this date of service dictated separately.~Patient seen individually. Discussed the patient with Nursing staff reviewed the chart.~Reviewed interim history and current functioning. Reviewed vital signs,~Labs/ Radiology~and current medications noted below. Continue current treatment with the changes noted in the dictated addendum note Assessment: Vital Signs/I&O: Vital Signs Date Time Temp Pulse Resp B/P (MAP) Pulse Ox O2 Delivery O2 Flow Rate FiO2 04/28/21 21:00 100 117/80 04/28/21 15:50 97.0 20 96 04/28/21 06:03 2.0 04/27/21 15:46 Room Air I & O 04/27/21 04/27/21 04/28/21 15:00 23:00 07:00 Intake Total 480 ml 600 ml Output Total 0 ml 800 ml Balance 480 ml 600 ml -800 ml Labs: Laboratory Tests Test 04/28/21 07:26 04/28/21 11:54 04/28/21 16:46 04/28/21 19:19 Glucose (Fingerstick) 84 mg/dL (70-99) 127 mg/dL (70-99) H 155 mg/dL (70-99) H 173 mg/dL (70-99) H Current Medications: Meds: Laboratory Tests Test 04/28/21 07:26 04/28/21 11:54 04/28/21 16:46 04/28/21 19:19 Glucose (Fingerstick) 84 mg/dL 127 mg/dL 155 mg/dL 173 mg/dL Current Medications Medications (Trade) Dose Ordered Sig/Nicky Route PRN Reason Start Time Stop Time Status Last Admin Dose Admin Acetaminophen (Tylenol) 650 mg PRN Q6HRS PRN PO MILD PAIN / TEMP > 100.3'F 04/25/21 12:15 04/25/21 14:18 DC Multi-Ingredient Ointment (Analgesic [place]) 1 neelima PRN QID PRN TP MUSCLE PAIN 04/25/21 12:15 Al Hydroxide/Mg Hydroxide (Mylanta Plus Xs) 15 ml PRN AFTMEALHC PRN PO DYSPEPSIA 04/25/21 12:15 04/26/21 10:24 DC Magnesium Hydroxide (Milk Of Magnesia) 2,400 mg PRN QHS PRN PO 2nd choice CONSTIPATION 04/25/21 12:15 04/26/21 10:24 DC Acetaminophen (Tylenol) 1,000 mg TID PO 04/25/21 14:00 04/26/21 10:24 DC 04/26/21 08:36 Aspirin (Aspirin Chewable) 81 mg DAILY PO 04/26/21 09:00 04/28/21 09:38 Bisacodyl (Dulcolax Tab) 10 mg PRN BID PRN PO 3rd choice CONSTIPATION 04/25/21 13:45 04/26/21 10:24 DC Bisacodyl (Dulcolax Supp) 10 mg PRN DAILY PRN RC 4th choice CONSTIPATION 04/25/21 13:45 04/26/21 10:24 DC Clopidogrel Bisulfate (Plavix) 75 mg DAILY PO 04/26/21 09:00 04/28/21 09:38 Duloxetine HCl (Cymbalta) 60 mg DAILY PO 04/26/21 09:00 04/27/21 20:03 DC 04/27/21 09:21 Guaifenesin (Robitussin) 200 mg PRN Q4HRS PRN PO COUGH 04/25/21 13:45 04/26/21 10:24 DC Hydralazine HCl (Apresoline) 25 mg TID PO 04/25/21 14:00 04/26/21 10:24 DC 04/26/21 08:34 Hydrocortisone (Proctosol-Hc) 1 neelima BID RC 04/25/21 21:00 04/28/21 11:07 DC 04/27/21 09:00 Lidocaine (Lidoderm) 1 patch DAILY TP 04/25/21 18:00 04/28/21 09:37 Metolazone (Zaroxolyn) 2.5 mg QODAY PO 04/26/21 09:00 04/26/21 10:24 DC 04/26/21 08:34 Nystatin (Nystop) 1 neelima BID TP 04/25/21 21:00 04/26/21 10:24 DC 04/26/21 08:43 Polyethylene Glycol (miraLAX) 17 gm PRN DAILY PRN PO 1st choice CONSTIPATION 04/25/21 13:45 Potassium Chloride (Klor-Con) 30 meq DAILY PO 04/26/21 09:00 04/28/21 09:38 Sennosides (Senna) 8.6 mg PRN QHS PRN PO constipation 04/25/21 13:45 04/26/21 10:24 DC Simethicone (Gas-X) 80 mg PRN BID PRN PO gas 04/25/21 13:45 04/26/21 10:24 DC Spironolactone (Aldactone) 25 mg DAILY PO 04/26/21 09:00 04/26/21 10:24 DC 04/26/21 08:34 Tramadol HCl (Ultram) 100 mg PRN Q4HRS PRN PO PAIN 04/25/21 13:45 04/27/21 10:01 DC 04/27/21 06:06 Trazodone HCl (Desyrel) 200 mg HS PO 04/25/21 21:00 04/28/21 20:59 Non-Formulary Medication (Arginine/ Glutamine/Calcium Hmb (Stephen Packet)) 1 each BID PO 04/25/21 21:00 04/25/21 15:06 DC Atorvastatin Calcium (Lipitor) 80 mg QHS PO 04/25/21 21:00 04/28/21 20:59 Bumetanide (Bumex) 2 mg DAILY PO 04/26/21 09:00 04/28/21 09:39 Al Hydroxide/Mg Hydroxide (Mylanta Plus Xs) 30 ml PRN Q12HR PRN PO DYSPEPSIA 04/25/21 14:45 04/26/21 10:24 DC 04/26/21 01:37 Carvedilol (Coreg) 37.5 mg BID PO 04/25/21 21:00 04/28/21 21:00 Cyclobenzaprine HCl (Flexeril) 5 mg PRN BID PRN PO MUSCLE SPASMS 04/25/21 14:45 04/26/21 10:24 DC Insulin Human Lispro (HumaLOG) 8 units TIDBFRMEAL SQ 04/25/21 16:30 04/28/21 17:49 Insulin Glargine (Lantus Syringe) 48 unit QHS SQ 04/25/21 21:00 04/28/21 21:03 Loperamide HCl (Imodium) 2 mg PRN Q1HR PRN PO severe DIARRHEA 04/25/21 15:00 04/26/21 10:24 DC Loperamide HCl (Imodium) 2 mg PRN Q6HRS PRN PO MILD-MOD DIARRHEA 04/25/21 15:15 04/26/21 10:24 DC Melatonin (Melatonin) 9 mg QHS PO 04/25/21 21:00 04/26/21 10:24 DC 04/25/21 21:29 Non-Formulary Medication (Menthol/Zinc Oxide (Calmoseptine Ointment)) 3.5 gm BID TP 04/25/21 21:00 04/25/21 14:56 DC Multi-Ingred Cream/Lotion/Oil/ Oint (Hydrocerin) 1 neelima BID TP 04/25/21 21:00 04/26/21 10:24 DC 04/26/21 08:40 Multivitamins/ Calcium (Thera-M Plus) 1 tab DAILY PO 04/26/21 09:00 04/26/21 10:24 DC 04/26/21 08:34 Phenyleph/Shark Oil/Min Oil/Petrol (Preparation H) 1 neelima PRN Q12HR PRN RC RECTAL PAIN 04/25/21 15:00 04/26/21 10:24 DC Linagliptin (Tradjenta) 5 mg DAILY PO 04/26/21 09:00 04/28/21 09:38 Saliva Substitute (Biotene Moisturizing Mouth) 1 spray PRN Q1HR PRN PO DRY MOUTH 04/25/21 15:15 Duloxetine HCl (Cymbalta) 30 mg DAILY PO 04/27/21 09:00 04/27/21 07:48 DC Oxycodone/ Acetaminophen (Percocet 10/325) 1 tab PRN Q6HRS PRN PO PAIN 04/27/21 10:00 04/28/21 21:01 Duloxetine HCl (Cymbalta) 90 mg DAILY PO 04/28/21 09:00 04/28/21 09:38 Hydrocortisone (Proctosol-Hc) 1 neelima PRN BID PRN RC RECTAL PAIN 04/28/21 21:00 Aripiprazole (Abilify) 2.5 mg DAILY PO 04/29/21 09:00 Current Medications Medications (Trade) Dose Ordered Sig/Nicky Route PRN Reason Start Time Stop Time Status Last Admin Dose Admin Duloxetine HCl (Cymbalta) 90 mg DAILY PO 04/28/21 09:00 04/28/21 09:38 I have reviewed the current psychotropics carefully including drug interactions. Risk benefit ratio favors no change other than as noted in my dictated progress note. Diagnosis: Problems: (1) Impulse control disorder, unspecified (2) Anxiety disorder, unspecified (3) Major depressive disorder, recurrent ESE LVEI MD Apr 28, 2021 21:37
--- NOTE | 2021-04-28 23:55 | NUR ---
Pt attention seeking this evening, repeatedly asking for various items/ medications. Pt compliant with shower; however was overly dramatic when completing the task. Compliant with whole medications. PRN Percocet administered per pt request. 04/20 pain in right shoulder.
[2021-04-29] MEDS: oxyCODONE/APAP 10/325 1 TAB TABLET PO PRN ×3 (03:02→17:04)
[2021-04-29 06:10] VITALS: BP 105/71
[2021-04-29 06:48] LABS: BASO % 0 % (0-3); EOS # 0.2 x10^3/uL (0.0-0.7); EOS % 2 % (0-3); HEMATOCRIT 42.1 % (39.0-53.0); HEMOGLOBIN 14.2 g/dL (13.0-17.5); LYMPH # 1.4 x10^3/uL (1.0-4.8); LYMPH % 16 % (24-48); MEAN CORPUSCULAR HEMOGLOBIN 31 pg (25-35); MEAN CORPUSCULAR HGB CONC 34 g/dL (31-37); MEAN CORPUSCULAR VOLUME 92 fL (79-100); MONO # 0.9 x10^3/uL (0.0-1.1); MONO % 11 % (0-9); NEUT # 6.1 x10^3uL (1.8-7.7); NEUT % 71 % (31-73); PLATELET COUNT 208 x10^3/uL (140-400); RED BLOOD COUNT 4.58 x10^6/uL (4.30-5.70); RED CELL DISTRIBUTION WIDTH 13.8 % (11.5-14.5); WHITE BLOOD COUNT 8.5 x10^3/uL (4.0-11.0)
[2021-04-29 06:54] LABS: ALBUMIN 3.2 g/dL (3.4-5.0); ALBUMIN/GLOBULIN RATIO 0.8 (1.0-1.7); CALCIUM 8.9 mg/dL (8.5-10.1); CREATININE 1.7 mg/dL (0.7-1.3); GFR 40.4; POTASSIUM 3.3 mmol/L (3.5-5.1); TOTAL BILIRUBIN 0.6 mg/dL (0.2-1.0); TOTAL PROTEIN 7.2 g/dL (6.4-8.2)
[2021-04-29] MEDS: INSULIN LISPRO 300 UNITS/3 ML VIAL. SQ SCH ×3 (07:30→16:30)
[2021-04-29] MEDS: LIDOCAINE (700MG/PATCH) PATCH. TP SCH (09:00)
[2021-04-29] MEDS ORDERED: ARIPiprazole 5 MG TABLET PO SCH (09:00)
[2021-04-29] MEDS: CLOPIDOGREL BISULFATE 75 MG TABLET PO SCH (09:21)
[2021-04-29] MEDS: POTASSIUM CHLORIDE 10 MEQ TABLET.ER. PO SCH (09:21)
[2021-04-29] MEDS: LINAGLIPTIN 5 MG TABLET PO SCH (09:21)
[2021-04-29] MEDS: DULoxetine HCL 30 MG CAPSULE.DR PO SCH (09:22)
[2021-04-29] MEDS: CARVEDILOL 12.5 MG TABLET PO SCH ×2 (09:22→21:05)
[2021-04-29] MEDS: ASPIRIN CHEWABLE 81 MG TABLET. PO SCH (09:22)
[2021-04-29] MEDS: BUMETANIDE 1 MG TABLET PO SCH (09:22)
--- NOTE | 2021-04-29 09:33 | NUR ---
Pt A&Ox4, denies active SI thoughts however states "I just don't want to go on anymore." He began the morning requesting pain medications, but then when this nurse arrived with pain and scheduled medications he stated, "Oh no, go on and take care of other people, they need more help." He presents as very somatic this morning; c/o difficulty breathing, c/o difficulties voiding, c/o his prostate, c/o pain, c/o his depression medications not working. He has periods of dramatic attention seeking, such as screaming loudly every time medications are administered d/t "a pill being stuck in the throat." Later in the morning he continued to crash his w/c into the doorway of the day room while yelling incoherent statements in frustration. Pt also has periods of self-deprecating statements. Dressing to R heel is CDI, pending dressing change later this morning. Plan of care continues, will pass to next shift.
[2021-04-29 15:45] VITALS: BP 110/75
--- NOTE | 2021-04-29 16:30 | NUR ---
Wound/Ostomy Care Wound Type/Assessment: WC consult for right foot wound. 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 Pt states that he has had a recent x-ray and MRI that were negative for osteo. Right heel is red non-granulation with slough present. Wound is 0.9cm deep and very close to bone. patient is very worried he will lose his leg. Treatment Recommendations/Plan: Cleanse wound, apply hydrofera blue and foam dressing, change every 2-3 days. Education provided: Pt educated to use heel medix boot while in bed and to bear weight on toes as much as possible while transferring. He would benefit form heel relief shoe if he is going to ambulate. Pt educated not to use heel to push himself up in bed and to keep all pressure off wound site. Pt verbalized understanding. Offloading surface/device: heel medix boot applied. TQ2H. Recommended Referrals/Tests: may benefit from arterial study if not already done at facility, will consult Justina WILKES to assess. Discharge Recommendations for dressings: see above
[2021-04-29] MEDS: ATORVASTATIN CALCIUM 20 MG TABLET PO SCH (21:05)
[2021-04-29] MEDS: traZODone 100 MG TABLET. PO SCH (21:05)
[2021-04-29] MEDS: INSULIN GLARGINE SYRINGE. SQ SCH (21:07)
--- NOTE | 2021-04-29 22:52 | PDOC ---
Exam Note: Josef Note: Please also refer to the separate dictated note~for this date of service dictated separately.~Patient seen individually. Discussed the patient with Nursing staff reviewed the chart.~Reviewed interim history and current functioning. Reviewed vital signs,~Labs/ Radiology~and current medications noted below. Continue current treatment with the changes noted in the dictated addendum note Assessment: Vital Signs/I&O: Vital Signs Date Time Temp Pulse Resp B/P (MAP) Pulse Ox O2 Delivery O2 Flow Rate FiO2 04/29/21 21:05 93 110/75 04/29/21 15:45 98.4 20 99 04/28/21 06:03 2.0 04/27/21 15:46 Room Air I & O 04/28/21 04/28/21 04/29/21 15:00 23:00 07:00 Intake Total 1020 ml 240 ml Balance 1020 ml 240 ml Labs: Laboratory Tests Test 04/29/21 06:30 04/29/21 07:22 04/29/21 11:46 04/29/21 16:59 White Blood Count 8.5 x10^3/uL (4.0-11.0) Red Blood Count 4.58 x10^6/uL (4.30-5.70) Hemoglobin 14.2 g/dL (13.0-17.5) Hematocrit 42.1 % (39.0-53.0) Mean Corpuscular Volume 92 fL (79-100) Mean Corpuscular Hemoglobin 31 pg (25-35) Mean Corpuscular Hemoglobin Concent 34 g/dL (31-37) Red Cell Distribution Width 13.8 % (11.5-14.5) Platelet Count 208 x10^3/uL (140-400) Neutrophils (%) (Auto) 71 % (31-73) Lymphocytes (%) (Auto) 16 % (24-48) L Monocytes (%) (Auto) 11 % (0-9) H Eosinophils (%) (Auto) 2 % (0-3) Basophils (%) (Auto) 0 % (0-3) Neutrophils # (Auto) 6.1 x10^3uL (1.8-7.7) Lymphocytes # (Auto) 1.4 x10^3/uL (1.0-4.8) Monocytes # (Auto) 0.9 x10^3/uL (0.0-1.1) Eosinophils # (Auto) 0.2 x10^3/uL (0.0-0.7) Basophils # (Auto) 0.0 x10^3/uL (0.0-0.2) Sodium Level 130 mmol/L (136-145) L Potassium Level 3.3 mmol/L (3.5-5.1) L Chloride Level 92 mmol/L (98-107) L Carbon Dioxide Level 32 mmol/L (21-32) Anion Gap 6 (6-14) Blood Urea Nitrogen 42 mg/dL (8-26) H Creatinine 1.7 mg/dL (0.7-1.3) H Estimated GFR (Cockcroft-Gault) 40.4 BUN/Creatinine Ratio 25 (6-20) H Glucose Level 76 mg/dL (70-99) Calcium Level 8.9 mg/dL (8.5-10.1) Total Bilirubin 0.6 mg/dL (0.2-1.0) Aspartate Amino Transferase (AST) 30 U/L (15-37) Alanine Aminotransferase (ALT) 23 U/L (16-63) Alkaline Phosphatase 78 U/L (46-116) Total Protein 7.2 g/dL (6.4-8.2) Albumin 3.2 g/dL (3.4-5.0) L Albumin/Globulin Ratio 0.8 (1.0-1.7) L Glucose (Fingerstick) 95 mg/dL (70-99) 109 mg/dL (70-99) H 151 mg/dL (70-99) H Test 04/29/21 19:26 Glucose (Fingerstick) 123 mg/dL (70-99) H Current Medications: Meds: Laboratory Tests Test 04/29/21 06:30 04/29/21 07:22 04/29/21 11:46 04/29/21 16:59 White Blood Count 8.5 x10^3/uL Red Blood Count 4.58 x10^6/uL Hemoglobin 14.2 g/dL Hematocrit 42.1 % Mean Corpuscular Volume 92 fL Mean Corpuscular Hemoglobin 31 pg Mean Corpuscular Hemoglobin Concent 34 g/dL Red Cell Distribution Width 13.8 % Platelet Count 208 x10^3/uL Neutrophils (%) (Auto) 71 % Lymphocytes (%) (Auto) 16 % Monocytes (%) (Auto) 11 % Eosinophils (%) (Auto) 2 % Basophils (%) (Auto) 0 % Neutrophils # (Auto) 6.1 x10^3uL Lymphocytes # (Auto) 1.4 x10^3/uL Monocytes # (Auto) 0.9 x10^3/uL Eosinophils # (Auto) 0.2 x10^3/uL Basophils # (Auto) 0.0 x10^3/uL Sodium Level 130 mmol/L Potassium Level 3.3 mmol/L Chloride Level 92 mmol/L Carbon Dioxide Level 32 mmol/L Anion Gap 6 Blood Urea Nitrogen 42 mg/dL Creatinine 1.7 mg/dL Estimated GFR (Cockcroft-Gault) 40.4 BUN/Creatinine Ratio 25 Glucose Level 76 mg/dL Calcium Level 8.9 mg/dL Total Bilirubin 0.6 mg/dL Aspartate Amino Transf (AST/SGOT) 30 U/L Alanine Aminotransferase (ALT/SGPT) 23 U/L Alkaline Phosphatase 78 U/L Total Protein 7.2 g/dL Albumin 3.2 g/dL Albumin/Globulin Ratio 0.8 Glucose (Fingerstick) 95 mg/dL 109 mg/dL 151 mg/dL Test 04/29/21 19:26 Glucose (Fingerstick) 123 mg/dL Current Medications Medications (Trade) Dose Ordered Sig/Nicky Route PRN Reason Start Time Stop Time Status Last Admin Dose Admin Acetaminophen (Tylenol) 650 mg PRN Q6HRS PRN PO MILD PAIN / TEMP > 100.3'F 04/25/21 12:15 04/25/21 14:18 DC Multi-Ingredient Ointment (Analgesic [place]) 1 neelima PRN QID PRN TP MUSCLE PAIN 04/25/21 12:15 Al Hydroxide/Mg Hydroxide (Mylanta Plus Xs) 15 ml PRN AFTMEALHC PRN PO DYSPEPSIA 04/25/21 12:15 04/26/21 10:24 DC Magnesium Hydroxide (Milk Of Magnesia) 2,400 mg PRN QHS PRN PO 2nd choice CONSTIPATION 04/25/21 12:15 04/26/21 10:24 DC Acetaminophen (Tylenol) 1,000 mg TID PO 04/25/21 14:00 04/26/21 10:24 DC 04/26/21 08:36 Aspirin (Aspirin Chewable) 81 mg DAILY PO 04/26/21 09:00 04/29/21 09:22 Bisacodyl (Dulcolax Tab) 10 mg PRN BID PRN PO 3rd choice CONSTIPATION 04/25/21 13:45 04/26/21 10:24 DC Bisacodyl (Dulcolax Supp) 10 mg PRN DAILY PRN RC 4th choice CONSTIPATION 04/25/21 13:45 04/26/21 10:24 DC Clopidogrel Bisulfate (Plavix) 75 mg DAILY PO 04/26/21 09:00 04/29/21 09:21 Duloxetine HCl (Cymbalta) 60 mg DAILY PO 04/26/21 09:00 04/27/21 20:03 DC 04/27/21 09:21 Guaifenesin (Robitussin) 200 mg PRN Q4HRS PRN PO COUGH 04/25/21 13:45 04/26/21 10:24 DC Hydralazine HCl (Apresoline) 25 mg TID PO 04/25/21 14:00 04/26/21 10:24 DC 04/26/21 08:34 Hydrocortisone (Proctosol-Hc) 1 neelima BID RC 04/25/21 21:00 04/28/21 11:07 DC 04/27/21 09:00 Lidocaine (Lidoderm) 1 patch DAILY TP 04/25/21 18:00 04/29/21 09:00 Metolazone (Zaroxolyn) 2.5 mg QODAY PO 04/26/21 09:00 04/26/21 10:24 DC 04/26/21 08:34 Nystatin (Nystop) 1 neelima BID TP 04/25/21 21:00 04/26/21 10:24 DC 04/26/21 08:43 Polyethylene Glycol (miraLAX) 17 gm PRN DAILY PRN PO 1st choice CONSTIPATION 04/25/21 13:45 Potassium Chloride (Klor-Con) 30 meq DAILY PO 04/26/21 09:00 04/29/21 09:21 Sennosides (Senna) 8.6 mg PRN QHS PRN PO constipation 04/25/21 13:45 04/26/21 10:24 DC Simethicone (Gas-X) 80 mg PRN BID PRN PO gas 04/25/21 13:45 04/26/21 10:24 DC Spironolactone (Aldactone) 25 mg DAILY PO 04/26/21 09:00 04/26/21 10:24 DC 04/26/21 08:34 Tramadol HCl (Ultram) 100 mg PRN Q4HRS PRN PO PAIN 04/25/21 13:45 04/27/21 10:01 DC 04/27/21 06:06 Trazodone HCl (Desyrel) 200 mg HS PO 04/25/21 21:00 04/29/21 21:05 Non-Formulary Medication (Arginine/ Glutamine/Calcium Hmb (Stephen Packet)) 1 each BID PO 04/25/21 21:00 04/25/21 15:06 DC Atorvastatin Calcium (Lipitor) 80 mg QHS PO 04/25/21 21:00 04/29/21 21:05 Bumetanide (Bumex) 2 mg DAILY PO 04/26/21 09:00 04/29/21 09:22 Al Hydroxide/Mg Hydroxide (Mylanta Plus Xs) 30 ml PRN Q12HR PRN PO DYSPEPSIA 04/25/21 14:45 04/26/21 10:24 DC 04/26/21 01:37 Carvedilol (Coreg) 37.5 mg BID PO 04/25/21 21:00 04/29/21 21:05 Cyclobenzaprine HCl (Flexeril) 5 mg PRN BID PRN PO MUSCLE SPASMS 04/25/21 14:45 04/26/21 10:24 DC Insulin Human Lispro (HumaLOG) 8 units TIDBFRMEAL SQ 04/25/21 16:30 04/29/21 16:30 Insulin Glargine (Lantus Syringe) 48 unit QHS SQ 04/25/21 21:00 04/29/21 21:07 Loperamide HCl (Imodium) 2 mg PRN Q1HR PRN PO severe DIARRHEA 04/25/21 15:00 04/26/21 10:24 DC Loperamide HCl (Imodium) 2 mg PRN Q6HRS PRN PO MILD-MOD DIARRHEA 04/25/21 15:15 04/26/21 10:24 DC Melatonin (Melatonin) 9 mg QHS PO 04/25/21 21:00 04/26/21 10:24 DC 04/25/21 21:29 Non-Formulary Medication (Menthol/Zinc Oxide (Calmoseptine Ointment)) 3.5 gm BID TP 04/25/21 21:00 04/25/21 14:56 DC Multi-Ingred Cream/Lotion/Oil/ Oint (Hydrocerin) 1 neelima BID TP 04/25/21 21:00 04/26/21 10:24 DC 04/26/21 08:40 Multivitamins/ Calcium (Thera-M Plus) 1 tab DAILY PO 04/26/21 09:00 04/26/21 10:24 DC 04/26/21 08:34 Phenyleph/Shark Oil/Min Oil/Petrol (Preparation H) 1 neelima PRN Q12HR PRN RC RECTAL PAIN 04/25/21 15:00 04/26/21 10:24 DC Linagliptin (Tradjenta) 5 mg DAILY PO 04/26/21 09:00 04/29/21 09:21 Saliva Substitute (Biotene Moisturizing Mouth) 1 spray PRN Q1HR PRN PO DRY MOUTH 04/25/21 15:15 Duloxetine HCl (Cymbalta) 30 mg DAILY PO 04/27/21 09:00 04/27/21 07:48 DC Oxycodone/ Acetaminophen (Percocet 10325) 1 tab PRN Q6HRS PRN PO PAIN 04/27/21 10:00 04/29/21 17:04 Duloxetine HCl (Cymbalta) 90 mg DAILY PO 04/28/21 09:00 04/29/21 09:22 Hydrocortisone (Proctosol-Hc) 1 neelima PRN BID PRN RC RECTAL PAIN 04/28/21 21:00 Aripiprazole (Abilify) 2.5 mg DAILY PO 04/29/21 09:00 04/29/21 20:16 DC 04/29/21 09:23 Aripiprazole (Abilify) 5 mg DAILY PO 04/30/21 09:00 Current Medications Medications (Trade) Dose Ordered Sig/Nicky Route PRN Reason Start Time Stop Time Status Last Admin Dose Admin Aripiprazole (Abilify) 2.5 mg DAILY PO 04/29/21 09:00 04/29/21 20:16 DC 04/29/21 09:23 I have reviewed the current psychotropics carefully including drug interactions. Risk benefit ratio favors no change other than as noted in my dictated progress note. Diagnosis: Problems: (1) Impulse control disorder, unspecified (2) Anxiety disorder, unspecified (3) Major depressive disorder, severe ESE LEVI MD Apr 29, 2021 22:52
--- NOTE | 2021-04-29 23:16 | NUR ---
Pt laying in his bed all evening tonight. When approached, pt found with his pants down to his knees. Pt had periods of yelling out and then apologized to staff when asked why he was yelling. Compliant with whole medications.
--- NOTE | 2021-04-30 00:08 | PN ---
DATE: 04/27/2021 PSYCHIATRIC PROGRESS NOTE This late entry of 04/27 covers elements not covered in my initial note. SUBJECTIVE: I met with the patient evening of 04/27/2021. Discussed with RIAN Aquino. The patient slept 3-1/2 hours previous night. He has been anxious, somewhat dramatic, especially during assisting with transfers. REVIEW OF SYSTEMS: Ambulation impaired. No CV, , pulmonary, eye system symptoms on review. Does complain of back pain. MENTAL STATUS EXAMINATION: Reasonably oriented. Speech is coherent, has some latency. Abstraction fair. Computation impaired. Language function intact. Mood and affect is still depressed, anxious, labile. LABORATORY DATA: Reviewed. IMPRESSION: Major depressive disorder, rule out psychotic features; anxiety disorder, unspecified, rule out personality disorder, unspecified; impulse control disorder. PLAN: Continue current psychotropics. Increase Cymbalta to 90 mg a day. Consider augmentation with Abilify for depression depending on his progress. TRANG DR: Reid TID: [id number]
--- NOTE | 2021-04-30 00:37 | PN ---
DATE: 04/28/2021 PSYCHIATRIC PROGRESS NOTE This late entry, date of service 04/28/2021, covers elements not covered in my initial note. Discussed with RIAN Aquino. SUBJECTIVE: The patient slept 5 hours previous night. Per nursing report, he has been attention seeking and gamey, hollering previous night, smacking himself in the head when frustrated. Discussed with treatment team, meeting with entire team in the morning including Chen Morales and Shiloh Almanzar protective services social worker, [facility] activity therapy and RIAN Castellanos. Average appetite, 50%. Average sleep, 4 hours. Occasionally, hitting himself in the head, manipulative, dramatic, reflective of possible personality disorder in addition to depression. Has brief fleeting suicidal ideation, no plans, intent or attempt. REVIEW OF SYSTEMS: Positive for back pain, impaired ambulation. No CV, , pulmonary, eye system symptoms on review. MENTAL STATUS EXAMINATION: Reasonably oriented. Speech is coherent. Abstraction fair. Computation impaired. Language function intact. Mood and affect depressed, anxious, labile. Labs reviewed. No active suicidal ideation. IMPRESSION: Major depressive disorder, recurrent; anxiety disorder, unspecified; impulse control disorder; personality disorder. PLAN: Continue Cymbalta 90 mg a day, augment with Abilify 2.5 mg a day. Continue trazodone 200 mg at bedtime. Rest unchanged for now. [place] DR: Reid TID: [id number]
[2021-04-30] MEDS: oxyCODONE/APAP 10/325 1 TAB TABLET PO PRN ×3 (00:44→20:44)
[2021-04-30 05:52] VITALS: BP 115/81
[2021-04-30] MEDS: INSULIN LISPRO 300 UNITS/3 ML VIAL. SQ SCH ×4 (07:30→16:30)
[2021-04-30] MEDS: ASPIRIN CHEWABLE 81 MG TABLET. PO SCH (08:56)
[2021-04-30] MEDS: LIDOCAINE (700MG/PATCH) PATCH. TP SCH (08:56)
[2021-04-30] MEDS: DULoxetine HCL 30 MG CAPSULE.DR PO SCH (08:56)
[2021-04-30] MEDS: POTASSIUM CHLORIDE 10 MEQ TABLET.ER. PO SCH (08:56)
[2021-04-30] MEDS: LINAGLIPTIN 5 MG TABLET PO SCH (08:56)
[2021-04-30] MEDS: CLOPIDOGREL BISULFATE 75 MG TABLET PO SCH (08:57)
[2021-04-30] MEDS: CARVEDILOL 12.5 MG TABLET PO SCH ×2 (08:57→20:45)
[2021-04-30] MEDS: ARIPiprazole 5 MG TABLET PO SCH (08:57)
[2021-04-30] MEDS: BUMETANIDE 1 MG TABLET PO SCH (08:57)
--- NOTE | 2021-04-30 09:34 | NUR ---
Pt A&Ox4, absent of SI behaviors so far this shift. He is compliant with whole medications. Per NOC shift report, pt woke at approx 0500 requesting his PRN Percoset, but it was too soon for the available dose. Pt began morning shift with elevated statements towards other patients regarding his pain, stating "I'm trying so hard not to go nuts, but I'm in so much pain." Every time pt is asked his pain level, he will consistently each time answer "10/10" but PAINAD score is 0. PRN Percoset 10/325 mg PO administered at approx 0900 for 10/10 R shoulder and lower back pain at his request. Pt claims to this nurse that he has Alzheimers and he has had it "for almost 6 years." Per IGNACIO Matamoros, who did pt's admission intake, pt's facility did not disclose an Alzheimers/dementia diagnosis. Staff unsure about the validity of pt's statement. Dressing to R heel CDI, pt was seen by [facility] yesterday (04/29/21). Plan of care continues, will pass to next shift.
--- NOTE | 2021-04-30 12:42 | NUR ---
Lunch insulin held d\\t pt not consuming lunch. When asked he states he isn't eating because "I'm scared I'm going to throw it up."
[2021-04-30 15:57] VITALS: BP 118/83
--- NOTE | 2021-04-30 16:28 | PDOC2 ---
CONSULT DOS: DATE: 04/30/21 TIME: 16:11 Reason for Consult: Right heel DFU History of Present Illness Patient admitted to [facility] unit for major depressive d kelli. Patient admitted from [facility] in which their wound care doctor was following him for his right heel DFU. Patient states that the wound began in September as a blister and then gradually broke down from there. Patient reports approximately 1 month ago he did have arterial Dopplers which revealed normal blood flow to the affected foot. Patient also states that he had an MRI which did show osteomyelitis. Patient received 3 weeks of oral antibiotics. Patient denies painful symptoms of the affected foot secondary to diabetic neuropathy. 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 Past Medical History Morbid obesity, status post CVA, type 2 diabetes mellitus, osteoarthritis of the knees, CHF, chronic kidney disease stage III, hypertension, dysphagia, coronary artery bypass graft, obstructive sleep apnea, dysphagia, polyphagia, current pressure ulcer, right heel. Social History Patient is . Patient denies use of tobacco, alcohol or illicit drugs. Current Medications Current Medications Acetaminophen (Tylenol) 650 mg PRN Q6HRS PRN PO MILD PAIN / TEMP > 100.3'F; Start 04/25/21 at 12:15; Stop 04/25/21 at 14:18; Status DC Multi-Ingredient Ointment (Analgesic [place]) 1 raquel PRN QID PRN TP MUSCLE PAIN; Start 04/25/21 at 12:15 Al Hydroxide/Mg Hydroxide (Mylanta Plus Xs) 15 ml PRN AFTMEALHC PRN PO DYSPEPSIA; Start 04/25/21 at 12:15; Stop 04/26/21 at 10:24; Status DC Magnesium Hydroxide (Milk Of Magnesia) 2,400 mg PRN QHS PRN PO 2nd choice CONSTIPATION; Start 04/25/21 at 12:15; Stop 04/26/21 at 10:24; Status DC Acetaminophen (Tylenol) 1,000 mg TID PO Last administered on 04/26/21at 08:36; Start 04/25/21 at 14:00; Stop 04/26/21 at 10:24; Status DC Aspirin (Aspirin Chewable) 81 mg DAILY PO Last administered on 04/30/21at 08:56; Start 04/26/21 at 09:00 Bisacodyl (Dulcolax Tab) 10 mg PRN BID PRN PO 3rd choice CONSTIPATION; Start 04/25/21 at 13:45; Stop 04/26/21 at 10:24; Status DC Bisacodyl (Dulcolax Supp) 10 mg PRN DAILY PRN RC 4th choice CONSTIPATION; Start 04/25/21 at 13:45; Stop 04/26/21 at 10:24; Status DC Clopidogrel Bisulfate (Plavix) 75 mg DAILY PO Last administered on 04/30/21at 08:57; Start 04/26/21 at 09:00 Duloxetine HCl (Cymbalta) 60 mg DAILY PO Last administered on 04/27/21at 09:21; Start 04/26/21 at 09:00; Stop 04/27/21 at 20:03; Status DC Guaifenesin (Robitussin) 200 mg PRN Q4HRS PRN PO COUGH; Start 04/25/21 at 13:45; Stop 04/26/21 at 10:24; Status DC Hydralazine HCl (Apresoline) 25 mg TID PO Last administered on 04/26/21at 08:34; Start 04/25/21 at 14:00; Stop 04/26/21 at 10:24; Status DC Hydrocortisone (Proctosol-Hc) 1 raquel BID RC Last administered on 04/27/21at 09:00; Start 04/25/21 at 21:00; Stop 04/28/21 at 11:07; Status DC Lidocaine (Lidoderm) 1 patch DAILY TP Last administered on 04/30/21at 08:56; Start 04/25/21 at 18:00 Metolazone (Zaroxolyn) 2.5 mg QODAY PO Last administered on 04/26/21at 08:34; Start 04/26/21 at 09:00; Stop 04/26/21 at 10:24; Status DC Nystatin (Nystop) 1 raquel BID TP Last administered on 04/26/21at 08:43; Start 04/25/21 at 21:00; Stop 04/26/21 at 10:24; Status DC Polyethylene Glycol (miraLAX) 17 gm PRN DAILY PRN PO 1st choice CONSTIPATION; Start 04/25/21 at 13:45 Potassium Chloride (Klor-Con) 30 meq DAILY PO Last administered on 04/30/21at 08:56; Start 04/26/21 at 09:00 Sennosides (Senna) 8.6 mg PRN QHS PRN PO constipation ; Start 04/25/21 at 13:45; Stop 04/26/21 at 10:24; Status DC Simethicone (Gas-X) 80 mg PRN BID PRN PO gas; Start 04/25/21 at 13:45; Stop 04/26/21 at 10:24; Status DC Spironolactone (Aldactone) 25 mg DAILY PO Last administered on 04/26/21at 08:34; Start 04/26/21 at 09:00; Stop 04/26/21 at 10:24; Status DC Tramadol HCl (Ultram) 100 mg PRN Q4HRS PRN PO PAIN Last administered on 04/11 01/29at 06:06; Start 04/25/21 at 13:45; Stop 04/27/21 at 10:01; Status DC Trazodone HCl (Desyrel) 200 mg HS PO Last administered on 04/29/21at 21:05; Start 04/25/21 at 21:00 Non-Formulary Medication (Arginine/ Glutamine/Calcium Hmb (Stephen Packet)) 1 each BID PO ; Start 04/25/21 at 21:00; Stop 04/25/21 at 15:06; Status DC Atorvastatin Calcium (Lipitor) 80 mg QHS PO Last administered on 04/29/21at 21:05; Start 04/25/21 at 21:00 Bumetanide (Bumex) 2 mg DAILY PO Last administered on 04/30/21at 08:57; Start 04/26/21 at 09:00; Stop 04/30/21 at 10:39; Status DC Al Hydroxide/Mg Hydroxide (Mylanta Plus Xs) 30 ml PRN Q12HR PRN PO DYSPEPSIA Last administered on 04/26/21at 01:37; Start 04/25/21 at 14:45; Stop 04/26/21 at 10:24; Status DC Carvedilol (Coreg) 37.5 mg BID PO Last administered on 04/30/21at 08:57; Start 04/25/21 at 21:00 Cyclobenzaprine HCl (Flexeril) 5 mg PRN BID PRN PO MUSCLE SPASMS; Start 04/25/21 at 14:45; Stop 04/26/21 at 10:24; Status DC Insulin Human Lispro (HumaLOG) 8 units TIDBFRMEAL SQ Last administered on 04/29/21at 16:30; Start 04/25/21 at 16:30 Insulin Glargine (Lantus Syringe) 48 unit QHS SQ Last administered on 04/29/21at 21:07; Start 04/25/21 at 21:00 Loperamide HCl (Imodium) 2 mg PRN Q1HR PRN PO severe DIARRHEA; Start 04/25/21 at 15:00; Stop 04/26/21 at 10:24; Status DC Loperamide HCl (Imodium) 2 mg PRN Q6HRS PRN PO MILD-MOD DIARRHEA; Start 04/25/21 at 15:15; Stop 04/26/21 at 10:24; Status DC Melatonin (Melatonin) 9 mg QHS PO Last administered on 04/25/21at 21:29; Start 04/25/21 at 21:00; Stop 04/26/21 at 10:24; Status DC Non-Formulary Medication (Menthol/Zinc Oxide (Calmoseptine Ointment)) 3.5 gm BID TP ; Start 04/25/21 at 21:00; Stop 04/25/21 at 14:56; Status DC Multi-Ingred Cream/Lotion/Oil/ Oint (Hydrocerin) 1 raquel BID TP Last administered on 04/26/21at 08:40; Start 04/25/21 at 21:00; Stop 04/26/21 at 10:24; Status DC Multivitamins/ Calcium (Thera-M Plus) 1 tab DAILY PO Last administered on 04/26/21at 08:34; Start 04/26/21 at 09:00; Stop 04/26/21 at 10:24; Status DC Phenyleph/Shark Oil/Min Oil/Petrol (Preparation H) 1 raquel PRN Q12HR PRN RC RECTAL PAIN; Start 04/25/21 at 15:00; Stop 04/26/21 at 10:24; Status DC Linagliptin (Tradjenta) 5 mg DAILY PO Last administered on 04/30/21at 08:56; Start 04/26/21 at 09:00 Saliva Substitute (Biotene Moisturizing Mouth) 1 spray PRN Q1HR PRN PO DRY MOUTH; Start 04/25/21 at 15:15 Duloxetine HCl (Cymbalta) 30 mg DAILY PO ; Start 04/27/21 at 09:00; Stop 04/27/21 at 07:48; Status DC Oxycodone/ Acetaminophen (Percocet 10/325) 1 tab PRN Q6HRS PRN PO PAIN Last administered on 04/30/21at 09:25; Start 04/27/21 at 10:00 Duloxetine HCl (Cymbalta) 90 mg DAILY PO Last administered on 04/30/21at 08:56; Start 04/28/21 at 09:00 Hydrocortisone (Proctosol-Hc) 1 raquel PRN BID PRN RC RECTAL PAIN; Start 04/28/21 at 21:00 Aripiprazole (Abilify) 2.5 mg DAILY PO Last administered on 04/29/21at 09:23; Start 04/29/21 at 09:00; Stop 04/29/21 at 20:16; Status DC Aripiprazole (Abilify) 5 mg DAILY PO Last administered on 04/30/21at 08:57; Start 04/30/21 at 09:00 Active Scripts Active Reported Guaifenesin 100 Mg/5 Ml Liquid 10 Ml PO PRN Q4HRS PRN Tylenol Extra Strength (Acetaminophen) 500 Mg Tablet 1,000 Mg PO TID Trazodone Hcl 100 Mg Tablet 200 Mg PO HS Tramadol Hcl (Tramadol HCl) 50 Mg Tablet 100 Mg PO PRN Q4HRS PRN Spironolactone 25 Mg Tablet 25 Mg PO DAILY Senna (Sennosides) 8.6 Mg Tablet 8.6 Mg PO PRN HS Preparation H Cream (Phenyleph/Pramoxin/Glycr/W.pet) 26 Gm Cream..g. 26 Gm RC PRN Q12HR PRN Potassium Chloride (Potassium Chloride) 20 Meq Tablet.er 30 Meq PO DAILY Nystatin 15 Gm Powder 1 Raquel TP BID apply to affected area(s) Multiple Vitamins (Multivitamin) 1 Each Tablet 1 Tab PO DAILY Miralax (Polyethylene Glycol 3350) 17 Gm Powd.pack 1 Packet PO PRN DAILY PRN dissolve in water Metolazone 2.5 Mg Tablet 2.5 Mg PO DAILY Melatonin 10 Mg Tab.rapdis 10 Mg PO HS Maalox Advanced Tab Chew (Calcium Carbonate/Simethicone) 1 Each Tab.chew 2 Each PO PRN Q12HR PRN Loperamide (Loperamide Hcl) 2 Mg Tablet 2 Tab PO PRN Q6HRS PRN 30 Days Loperamide (Loperamide Hcl) 2 Mg Tablet 2 Mg PO PRN Q1HR Lipitor (Atorvastatin Calcium) 80 Mg Tablet 80 Mg PO QHS Lidocaine PATCH (Lidocaine) 1 Each Adh..patch 1 Each TP DAILY REMOVE AFTER 12 HOURS Lantus Solostar (Insulin Glargine,Hum.rec.anlog) 100 Unit/1 Ml Insuln.pen 48 Unit SQ HS Stephen Packet (Arginine/Glutamine/Calcium Hmb) 1 Each Powd.pack 1 Each PO BID Januvia (Sitagliptin Phosphate) 100 Mg Tablet 100 Mg PO DAILY Novolog (Insulin Aspart) 100 Unit/1 Ml Cartridge 8 Unit SQ BEFORE MEALS Hydralazine Hcl 25 Mg Tablet 25 Mg PO TID Simethicone 80 Mg Tab.chew 80 Mg PO PRN BID PRN Cymbalta (Duloxetine Hcl) 60 Mg Capsule.dr 60 Mg PO DAILY Cyclobenzaprine Hcl 5 Mg Tablet 5 Mg PO PRN BID PRN Clopidogrel (Clopidogrel Bisulfate) 75 Mg Tablet 1 Tab PO DAILY Carvedilol 25 Mg Tablet 37.5 Mg PO BID Calmoseptine Ointment (Menthol/Zinc Oxide) 3.5 Gm Oint.pack 3.5 Gm TP BID Bumetanide 2 Mg Tablet 2 Mg PO DAILY Bisacodyl 5 Mg Tablet.dr 10 Mg PO BID PRN Bisacodyl 10 Mg Supp.rect 10 Mg RC PRN DAILY PRN Aspirin 81 Mg Tab.chew 81 Mg PO DAILY [Saliva Gel] 1 Raquel PO PRN Q1HR PRN Aquaphor Healing Ointment (Mineral Oil/Hydrophil Petrolat) 50 Gm Oint...g. 1 Raquel TP BID Anusol-Hc (Hydrocortisone) 30 Gm Cream..g. 1 Raquel TP BID Allergies: Coded Allergies: No Known Drug Allergies (Unverified , 04/25/21) Review of System Patient states that he is feeling well. Patient states that he has been eating and drinking well without nausea, vomiting or diarrhea. Patient denies cough or shortness of breath. Patient denies painful symptoms to the affected area secondary to diabetic neuropathy. Physical Exam Patient awake and alert 66-year-old male in no apparent distress. Patient pleasant conversation and appears to be a good historian. Vital signs are stable. Patient is afebrile. Hemoglobin A1c 6.6 on 04/25. On 04/29 WBC was 8.5, and albumin 3.2. Respirations are even and unlabored. Patient is on room air not requiring supplemental oxygen at this time. Abdomen is soft, nondistended and nontender to palpation. Skin is warm, dry and pink. The right heel presents with an open ulceration, measurements found in nursing documentation. Wound bed 90% granulated to the surface with 10% boggy slough centrally. Max depth is 0.9 cm. Bone is not palpable at this time at max depth however slough is present. Surrounding tissue without erythema or edema at this time. Moderate serosanguineous drainage. No odor following cleansing. VITALS Vital Signs Date Time Temp Pulse Resp B/P (MAP) Pulse Ox O2 Delivery O2 Flow Rate FiO2 04/30/21 15:57 98.2 96 20 118/83 (95) 92 04/28/21 06:03 2.0 04/27/21 15:46 Room Air Labs Laboratory Tests Test 04/28/21 16:46 04/28/21 19:19 04/29/21 06:30 04/29/21 07:22 Glucose (Fingerstick) 155 mg/dL (70-99) 173 mg/dL (70-99) 95 mg/dL (70-99) White Blood Count 8.5 x10^3/uL (4.0-11.0) Red Blood Count 4.58 x10^6/uL (4.30-5.70) Hemoglobin 14.2 g/dL (13.0-17.5) Hematocrit 42.1 % (39.0-53.0) Mean Corpuscular Volume 92 fL (79-100) Mean Corpuscular Hemoglobin 31 pg (25-35) Mean Corpuscular Hemoglobin Concent 34 g/dL (31-37) Red Cell Distribution Width 13.8 % (11.5-14.5) Platelet Count 208 x10^3/uL (140-400) Neutrophils (%) (Auto) 71 % (31-73) Lymphocytes (%) (Auto) 16 % (24-48) Monocytes (%) (Auto) 11 % (0-9) Eosinophils (%) (Auto) 2 % (0-3) Basophils (%) (Auto) 0 % (0-3) Neutrophils # (Auto) 6.1 x10^3uL (1.8-7.7) Lymphocytes # (Auto) 1.4 x10^3/uL (1.0-4.8) Monocytes # (Auto) 0.9 x10^3/uL (0.0-1.1) Eosinophils # (Auto) 0.2 x10^3/uL (0.0-0.7) Basophils # (Auto) 0.0 x10^3/uL (0.0-0.2) Sodium Level 130 mmol/L (136-145) Potassium Level 3.3 mmol/L (3.5-5.1) Chloride Level 92 mmol/L (98-107) Carbon Dioxide Level 32 mmol/L (21-32) Anion Gap 6 (6-14) Blood Urea Nitrogen 42 mg/dL (8-26) Creatinine 1.7 mg/dL (0.7-1.3) Estimated GFR (Cockcroft-Gault) 40.4 BUN/Creatinine Ratio 25 (6-20) Glucose Level 76 mg/dL (70-99) Calcium Level 8.9 mg/dL (8.5-10.1) Total Bilirubin 0.6 mg/dL (0.2-1.0) Aspartate Amino Transf (AST/SGOT) 30 U/L (15-37) Alanine Aminotransferase (ALT/SGPT) 23 U/L (16-63) Alkaline Phosphatase 78 U/L (46-116) Total Protein 7.2 g/dL (6.4-8.2) Albumin 3.2 g/dL (3.4-5.0) Albumin/Globulin Ratio 0.8 (1.0-1.7) Test 04/29/21 11:46 04/29/21 16:59 04/29/21 19:26 04/30/21 06:00 Glucose (Fingerstick) 109 mg/dL (70-99) 151 mg/dL (70-99) 123 mg/dL (70-99) Coronavirus (COVID-19)(PCR) Not detected (NOT DETECTD) Test 04/30/21 07:27 04/30/21 11:45 Glucose (Fingerstick) 79 mg/dL (70-99) 164 mg/dL (70-99) Assessment/Plan Wound assessment and plan: 1) diabetes with right heel ulceration, Rousseau 3 -Per patient report, arterial Doppler recently performed which showed good blood flow. MRI also recently done which showed osteomyelitis. Patient received 3 weeks of oral antibiotics per facility wound care doctor, Dr. Hinton. -If wound stagnates in healing or worsens in presentation, recommend repeat MRI to determine extent of osteomyelitis. If MRI positive for osteomyelitis, patient would require 6 weeks of IV antibiotics. -Cleanse and pat dry. Apply skin prep to surrounding tissue. Cover with Hydrofera Blue and foam adhesive. Change every other day or as needed if dressing loose or saturated -Recommend dietary consult to ensure patient with adequate protein intake for optimal wound healing -Offload heel at all times with heel medics CHRISTIANO Wells APRN Apr 30, 2021 16:27
--- NOTE | 2021-04-30 17:40 | NUR ---
Pt was not willing to get out of bed and come into the hallway to eat dinner until he was provided attention and encouragement by SILVER DESIGNER to do so. After sitting in front of his meal he began to list his grievances regarding his meal: there were no mashed potatoes, the rice was "too hard," and he did not like the ground meat. He then left his plate and did not eat the food. Of note, his diet is dysphagia 2 (ground), ADA, cardiac, renal and so the plate presentation reflects his various dietary needs and restrictions. Dinner time insulin held at this time d\\t pt not eating.
[2021-04-30] MEDS: traZODone 100 MG TABLET. PO SCH (20:44)
[2021-04-30] MEDS: ATORVASTATIN CALCIUM 20 MG TABLET PO SCH (20:45)
--- NOTE | 2021-04-30 21:00 | NUR ---
Pt has been in WC in cha and has been trying to get staff to put him back to bed. He has been demanding and yelling at staff and requesting pain med. He also gags and acts as if he might vomit at times. He told nurse that he has Alzheimers and his prostate is as big as a basketball.He took meds whole. Percocet was given for complaints of generalized pain. At bedtime pt transferred self to bed with encouragement.
[2021-04-30] MEDS: INSULIN GLARGINE SYRINGE. SQ SCH (21:44)
--- NOTE | 2021-04-30 21:56 | PDOC ---
Exam Note: Josef Note: Please also refer to the separate dictated note~for this date of service dictated separately.~Patient seen individually. Discussed the patient with Nursing staff reviewed the chart.~Reviewed interim history and current functioning. Reviewed vital signs,~Labs/ Radiology~and current medications noted below. Continue current treatment with the changes noted in the dictated addendum note Assessment: Vital Signs/I&O: Vital Signs Date Time Temp Pulse Resp B/P (MAP) Pulse Ox O2 Delivery O2 Flow Rate FiO2 04/30/21 20:45 96 118/83 04/30/21 15:57 98.2 20 92 04/28/21 06:03 2.0 04/27/21 15:46 Room Air I & O 04/29/21 04/29/21 04/30/21 15:00 23:00 07:00 Intake Total 840 ml 600 ml Balance 840 ml 600 ml Labs: Laboratory Tests Test 04/30/21 06:00 04/30/21 07:27 04/30/21 11:45 04/30/21 17:00 SARS-CoV-2 (PCR) Not detected (NOT DETECTD) Glucose (Fingerstick) 79 mg/dL (70-99) 164 mg/dL (70-99) H 134 mg/dL (70-99) H Test 04/30/21 19:07 Glucose (Fingerstick) 154 mg/dL (70-99) H Current Medications: Meds: Laboratory Tests Test 04/30/21 06:00 04/30/21 07:27 04/30/21 11:45 04/30/21 17:00 Coronavirus (COVID-19)(PCR) Not detected Glucose (Fingerstick) 79 mg/dL 164 mg/dL 134 mg/dL Test 04/30/21 19:07 Glucose (Fingerstick) 154 mg/dL Current Medications Medications (Trade) Dose Ordered Sig/Nicky Route PRN Reason Start Time Stop Time Status Last Admin Dose Admin Acetaminophen (Tylenol) 650 mg PRN Q6HRS PRN PO MILD PAIN / TEMP > 100.3'F 04/25/21 12:15 04/25/21 14:18 DC Multi-Ingredient Ointment (Analgesic [place]) 1 neelima PRN QID PRN TP MUSCLE PAIN 04/25/21 12:15 Al Hydroxide/Mg Hydroxide (Mylanta Plus Xs) 15 ml PRN AFTMEALHC PRN PO DYSPEPSIA 04/25/21 12:15 04/26/21 10:24 DC Magnesium Hydroxide (Milk Of Magnesia) 2,400 mg PRN QHS PRN PO 2nd choice CONSTIPATION 04/25/21 12:15 04/26/21 10:24 DC Acetaminophen (Tylenol) 1,000 mg TID PO 04/25/21 14:00 04/26/21 10:24 DC 04/26/21 08:36 Aspirin (Aspirin Chewable) 81 mg DAILY PO 04/26/21 09:00 04/30/21 08:56 Bisacodyl (Dulcolax Tab) 10 mg PRN BID PRN PO 3rd choice CONSTIPATION 04/25/21 13:45 04/26/21 10:24 DC Bisacodyl (Dulcolax Supp) 10 mg PRN DAILY PRN RC 4th choice CONSTIPATION 04/25/21 13:45 04/26/21 10:24 DC Clopidogrel Bisulfate (Plavix) 75 mg DAILY PO 04/26/21 09:00 04/30/21 08:57 Duloxetine HCl (Cymbalta) 60 mg DAILY PO 04/26/21 09:00 04/27/21 20:03 DC 04/27/21 09:21 Guaifenesin (Robitussin) 200 mg PRN Q4HRS PRN PO COUGH 04/25/21 13:45 04/26/21 10:24 DC Hydralazine HCl (Apresoline) 25 mg TID PO 04/25/21 14:00 04/26/21 10:24 DC 04/26/21 08:34 Hydrocortisone (Proctosol-Hc) 1 neelima BID RC 04/25/21 21:00 04/28/21 11:07 DC 04/27/21 09:00 Lidocaine (Lidoderm) 1 patch DAILY TP 04/25/21 18:00 04/30/21 08:56 Metolazone (Zaroxolyn) 2.5 mg QODAY PO 04/26/21 09:00 04/26/21 10:24 DC 04/26/21 08:34 Nystatin (Nystop) 1 neelima BID TP 04/25/21 21:00 04/26/21 10:24 DC 04/26/21 08:43 Polyethylene Glycol (miraLAX) 17 gm PRN DAILY PRN PO 1st choice CONSTIPATION 04/25/21 13:45 Potassium Chloride (Klor-Con) 30 meq DAILY PO 04/26/21 09:00 04/30/21 08:56 Sennosides (Senna) 8.6 mg PRN QHS PRN PO constipation 04/25/21 13:45 04/26/21 10:24 DC Simethicone (Gas-X) 80 mg PRN BID PRN PO gas 04/25/21 13:45 04/26/21 10:24 DC Spironolactone (Aldactone) 25 mg DAILY PO 04/26/21 09:00 04/26/21 10:24 DC 04/26/21 08:34 Tramadol HCl (Ultram) 100 mg PRN Q4HRS PRN PO PAIN 04/25/21 13:45 04/27/21 10:01 DC 04/27/21 06:06 Trazodone HCl (Desyrel) 200 mg HS PO 04/25/21 21:00 04/30/21 20:44 Non-Formulary Medication (Arginine/ Glutamine/Calcium Hmb (Stephen Packet)) 1 each BID PO 04/25/21 21:00 04/25/21 15:06 DC Atorvastatin Calcium (Lipitor) 80 mg QHS PO 04/25/21 21:00 04/30/21 20:45 Bumetanide (Bumex) 2 mg DAILY PO 04/26/21 09:00 04/30/21 10:39 DC 04/30/21 08:57 Al Hydroxide/Mg Hydroxide (Mylanta Plus Xs) 30 ml PRN Q12HR PRN PO DYSPEPSIA 04/25/21 14:45 04/26/21 10:24 DC 04/26/21 01:37 Carvedilol (Coreg) 37.5 mg BID PO 04/25/21 21:00 04/30/21 20:45 Cyclobenzaprine HCl (Flexeril) 5 mg PRN BID PRN PO MUSCLE SPASMS 04/25/21 14:45 04/26/21 10:24 DC Insulin Human Lispro (HumaLOG) 8 units TIDBFRMEAL SQ 04/25/21 16:30 04/29/21 16:30 Insulin Glargine (Lantus Syringe) 48 unit QHS SQ 04/25/21 21:00 04/30/21 21:44 Loperamide HCl (Imodium) 2 mg PRN Q1HR PRN PO severe DIARRHEA 04/25/21 15:00 04/26/21 10:24 DC Loperamide HCl (Imodium) 2 mg PRN Q6HRS PRN PO MILD-MOD DIARRHEA 04/25/21 15:15 04/26/21 10:24 DC Melatonin (Melatonin) 9 mg QHS PO 04/25/21 21:00 04/26/21 10:24 DC 04/25/21 21:29 Non-Formulary Medication (Menthol/Zinc Oxide (Calmoseptine Ointment)) 3.5 gm BID TP 04/25/21 21:00 04/25/21 14:56 DC Multi-Ingred Cream/Lotion/Oil/ Oint (Hydrocerin) 1 neelima BID TP 04/25/21 21:00 04/26/21 10:24 DC 04/26/21 08:40 Multivitamins/ Calcium (Thera-M Plus) 1 tab DAILY PO 04/26/21 09:00 04/26/21 10:24 DC 04/26/21 08:34 Phenyleph/Shark Oil/Min Oil/Petrol (Preparation H) 1 neelima PRN Q12HR PRN RC RECTAL PAIN 04/25/21 15:00 04/26/21 10:24 DC Linagliptin (Tradjenta) 5 mg DAILY PO 04/26/21 09:00 04/30/21 08:56 Saliva Substitute (Biotene Moisturizing Mouth) 1 spray PRN Q1HR PRN PO DRY MOUTH 04/25/21 15:15 Duloxetine HCl (Cymbalta) 30 mg DAILY PO 04/27/21 09:00 04/27/21 07:48 DC Oxycodone/ Acetaminophen (Percocet 10/325) 1 tab PRN Q6HRS PRN PO PAIN 04/27/21 10:00 04/30/21 20:44 Duloxetine HCl (Cymbalta) 90 mg DAILY PO 04/28/21 09:00 04/30/21 08:56 Hydrocortisone (Proctosol-Hc) 1 neelima PRN BID PRN RC RECTAL PAIN 04/28/21 21:00 Aripiprazole (Abilify) 2.5 mg DAILY PO 04/29/21 09:00 04/29/21 20:16 DC 04/29/21 09:23 Aripiprazole (Abilify) 5 mg DAILY PO 04/30/21 09:00 04/30/21 08:57 Current Medications Medications (Trade) Dose Ordered Sig/Nicky Route PRN Reason Start Time Stop Time Status Last Admin Dose Admin Aripiprazole (Abilify) 5 mg DAILY PO 04/30/21 09:00 04/30/21 08:57 I have reviewed the current psychotropics carefully including drug interactions. Risk benefit ratio favors no change other than as noted in my dictated progress note. Diagnosis: Problems: (1) Impulse control disorder, unspecified (2) Anxiety disorder, unspecified (3) Major depressive disorder, recurrent ESE LEVI MD Apr 30, 2021 21:56
[2021-05-01 06:31] VITALS: BP 103/75
[2021-05-01 07:23] LABS: BASO % 0 % (0-3); EOS # 0.1 x10^3/uL (0.0-0.7); EOS % 1 % (0-3); HEMATOCRIT 38.3 % (39.0-53.0); HEMOGLOBIN 13.4 g/dL (13.0-17.5); LYMPH # 1.1 x10^3/uL (1.0-4.8); LYMPH % 17 % (24-48); MEAN CORPUSCULAR HEMOGLOBIN 32 pg (25-35); MEAN CORPUSCULAR HGB CONC 35 g/dL (31-37); MEAN CORPUSCULAR VOLUME 91 fL (79-100); MONO # 0.9 x10^3/uL (0.0-1.1); MONO % 13 % (0-9); NEUT # 4.5 x10^3uL (1.8-7.7); NEUT % 68 % (31-73); PLATELET COUNT 182 x10^3/uL (140-400); RED BLOOD COUNT 4.22 x10^6/uL (4.30-5.70); RED CELL DISTRIBUTION WIDTH 13.7 % (11.5-14.5); WHITE BLOOD COUNT 6.6 x10^3/uL (4.0-11.0)
[2021-05-01 07:26] LABS: ALBUMIN 2.8 g/dL (3.4-5.0); ALBUMIN/GLOBULIN RATIO 0.7 (1.0-1.7); CALCIUM 8.9 mg/dL (8.5-10.1); CREATININE 1.6 mg/dL (0.7-1.3); GFR 43.3; POTASSIUM 3.1 mmol/L (3.5-5.1); TOTAL BILIRUBIN 0.5 mg/dL (0.2-1.0); TOTAL PROTEIN 6.6 g/dL (6.4-8.2)
[2021-05-01] MEDS: INSULIN LISPRO 300 UNITS/3 ML VIAL. SQ SCH ×3 (07:30→16:30)
[2021-05-01] MEDS: ARIPiprazole 5 MG TABLET PO SCH (09:19)
[2021-05-01] MEDS: CARVEDILOL 12.5 MG TABLET PO SCH ×2 (09:20→21:29)
[2021-05-01] MEDS: POTASSIUM CHLORIDE 10 MEQ TABLET.ER. PO SCH (09:20)
[2021-05-01] MEDS: DULoxetine HCL 30 MG CAPSULE.DR PO SCH (09:20)
[2021-05-01] MEDS: LINAGLIPTIN 5 MG TABLET PO SCH (09:20)
[2021-05-01] MEDS: CLOPIDOGREL BISULFATE 75 MG TABLET PO SCH (09:20)
[2021-05-01] MEDS: LIDOCAINE (700MG/PATCH) PATCH. TP SCH (09:21)
[2021-05-01] MEDS: ASPIRIN CHEWABLE 81 MG TABLET. PO SCH (09:22)
--- NOTE | 2021-05-01 12:30 | NUR ---
Patient complained of increased shoulder and back pain, prn medication provided per eMAR, will continue to monitor.
[2021-05-01] MEDS: oxyCODONE/APAP 10/325 1 TAB TABLET PO PRN ×2 (12:32→21:29)
[2021-05-01 16:19] VITALS: BP 165/88
[2021-05-01] MEDS: traZODone 100 MG TABLET. PO SCH (21:27)
[2021-05-01] MEDS: ATORVASTATIN CALCIUM 20 MG TABLET PO SCH (21:27)
[2021-05-01] MEDS: INSULIN GLARGINE SYRINGE. SQ SCH (21:28)
--- NOTE | 2021-05-01 21:32 | NUR ---
PRN pain med given for "prostate Burning." Pt has been in his room tonight and has been cooperative with staff. He took meds whole and has not had behaviors tonight.
--- NOTE | 2021-05-01 22:27 | PDOC ---
Exam Note: Josef Note: This note is a late entry for 04/29/2021 covers elements not covered in my initial note. Subjective: The patient was seen individually in the evening of 04/29/2021 with Isidra MODI, discussed and reviewed the chart. The patient slept 6-1/4 hours previous night. Patient has been quite somatic, anxious, and very dramatic about his pain. He complains of breathing problems, yelling, attention seeking. He has been started on Percocet, wanting it more frequently than prescribed per nursing report. Review of Systems: Ambulation impaired in wheelchair. He complains of pain all over shoulders and back. No CV, , pulmonary, eye system symptoms on review. Mental Status Exam: The patient is reasonably oriented. Speech coherent. Abstraction fair. Computation impaired. Language function intact. Attention span short. Mood and affect remains anxious, somewhat depressed, labile. Laboratory Data: Reviewed. Impression: Major depressive disorder, recurrent severe with psychotic features. Anxiety disorder, unspecified. Personality disorder unspecified. Impulse control disorder. Plan: Continue Cymbalta 90 mg a day. Increase Abilify from 2.5 mg a day to 5 mg a day to augment the Cymbalta. Maintain trazodone 200 mg h.s. Make further adjustments as clinically indicated. Consider Lamictal as a mood stabilizer. Reviewed drug interactions and risk-benefit ratio. Assessment: Vital Signs/I&O: Vital Signs Date Time Temp Pulse Resp B/P (MAP) Pulse Ox O2 Delivery O2 Flow Rate FiO2 05/01/21 21:29 96 165/88 05/01/21 16:19 98.6 20 95 04/28/21 06:03 2.0 04/27/21 15:46 Room Air I & O 04/30/21 04/30/21 05/01/21 15:00 23:00 07:00 Intake Total 200 ml 120 ml 50 ml Output Total 500 ml Balance 200 ml 120 ml -450 ml Labs: Laboratory Tests Test 05/01/21 06:42 05/01/21 07:42 05/01/21 11:46 05/01/21 16:31 White Blood Count 6.6 x10^3/uL (4.0-11.0) Red Blood Count 4.22 x10^6/uL (4.30-5.70) L Hemoglobin 13.4 g/dL (13.0-17.5) Hematocrit 38.3 % (39.0-53.0) L Mean Corpuscular Volume 91 fL (79-100) Mean Corpuscular Hemoglobin 32 pg (25-35) Mean Corpuscular Hemoglobin Concent 35 g/dL (31-37) Red Cell Distribution Width 13.7 % (11.5-14.5) Platelet Count 182 x10^3/uL (140-400) Neutrophils (%) (Auto) 68 % (31-73) Lymphocytes (%) (Auto) 17 % (24-48) L Monocytes (%) (Auto) 13 % (0-9) H Eosinophils (%) (Auto) 1 % (0-3) Basophils (%) (Auto) 0 % (0-3) Neutrophils # (Auto) 4.5 x10^3uL (1.8-7.7) Lymphocytes # (Auto) 1.1 x10^3/uL (1.0-4.8) Monocytes # (Auto) 0.9 x10^3/uL (0.0-1.1) Eosinophils # (Auto) 0.1 x10^3/uL (0.0-0.7) Basophils # (Auto) 0.0 x10^3/uL (0.0-0.2) Sodium Level 132 mmol/L (136-145) L Potassium Level 3.1 mmol/L (3.5-5.1) L Chloride Level 94 mmol/L (98-107) L Carbon Dioxide Level 33 mmol/L (21-32) H Anion Gap 5 (6-14) L Blood Urea Nitrogen 38 mg/dL (8-26) H Creatinine 1.6 mg/dL (0.7-1.3) H Estimated GFR (Cockcroft-Gault) 43.3 BUN/Creatinine Ratio 24 (6-20) H Glucose Level 70 mg/dL (70-99) Calcium Level 8.9 mg/dL (8.5-10.1) Total Bilirubin 0.5 mg/dL (0.2-1.0) Aspartate Amino Transferase (AST) 28 U/L (15-37) Alanine Aminotransferase (ALT) 23 U/L (16-63) Alkaline Phosphatase 69 U/L (46-116) Total Protein 6.6 g/dL (6.4-8.2) Albumin 2.8 g/dL (3.4-5.0) L Albumin/Globulin Ratio 0.7 (1.0-1.7) L Glucose (Fingerstick) 75 mg/dL (70-99) 129 mg/dL (70-99) H 67 mg/dL (70-99) L Test 05/01/21 19:05 Glucose (Fingerstick) 135 mg/dL (70-99) H Current Medications: Meds: Laboratory Tests Test 05/01/21 06:42 05/01/21 07:42 05/01/21 11:46 05/01/21 16:31 White Blood Count 6.6 x10^3/uL Red Blood Count 4.22 x10^6/uL Hemoglobin 13.4 g/dL Hematocrit 38.3 % Mean Corpuscular Volume 91 fL Mean Corpuscular Hemoglobin 32 pg Mean Corpuscular Hemoglobin Concent 35 g/dL Red Cell Distribution Width 13.7 % Platelet Count 182 x10^3/uL Neutrophils (%) (Auto) 68 % Lymphocytes (%) (Auto) 17 % Monocytes (%) (Auto) 13 % Eosinophils (%) (Auto) 1 % Basophils (%) (Auto) 0 % Neutrophils # (Auto) 4.5 x10^3uL Lymphocytes # (Auto) 1.1 x10^3/uL Monocytes # (Auto) 0.9 x10^3/uL Eosinophils # (Auto) 0.1 x10^3/uL Basophils # (Auto) 0.0 x10^3/uL Sodium Level 132 mmol/L Potassium Level 3.1 mmol/L Chloride Level 94 mmol/L Carbon Dioxide Level 33 mmol/L Anion Gap 5 Blood Urea Nitrogen 38 mg/dL Creatinine 1.6 mg/dL Estimated GFR (Cockcroft-Gault) 43.3 BUN/Creatinine Ratio 24 Glucose Level 70 mg/dL Calcium Level 8.9 mg/dL Total Bilirubin 0.5 mg/dL Aspartate Amino Transf (AST/SGOT) 28 U/L Alanine Aminotransferase (ALT/SGPT) 23 U/L Alkaline Phosphatase 69 U/L Total Protein 6.6 g/dL Albumin 2.8 g/dL Albumin/Globulin Ratio 0.7 Glucose (Fingerstick) 75 mg/dL 129 mg/dL 67 mg/dL Test 05/01/21 19:05 Glucose (Fingerstick) 135 mg/dL Current Medications Medications (Trade) Dose Ordered Sig/Nicky Route PRN Reason Start Time Stop Time Status Last Admin Dose Admin Acetaminophen (Tylenol) 650 mg PRN Q6HRS PRN PO MILD PAIN / TEMP > 100.3'F 04/25/21 12:15 04/25/21 14:18 DC Multi-Ingredient Ointment (Analgesic [place]) 1 neelima PRN QID PRN TP MUSCLE PAIN 04/25/21 12:15 05/01/21 16:28 Al Hydroxide/Mg Hydroxide (Mylanta Plus Xs) 15 ml PRN AFTMEALHC PRN PO DYSPEPSIA 04/25/21 12:15 04/26/21 10:24 DC Magnesium Hydroxide (Milk Of Magnesia) 2,400 mg PRN QHS PRN PO 2nd choice CONSTIPATION 04/25/21 12:15 04/26/21 10:24 DC Acetaminophen (Tylenol) 1,000 mg TID PO 04/25/21 14:00 04/26/21 10:24 DC 04/26/21 08:36 Aspirin (Aspirin Chewable) 81 mg DAILY PO 04/26/21 09:00 05/01/21 09:22 Bisacodyl (Dulcolax Tab) 10 mg PRN BID PRN PO 3rd choice CONSTIPATION 04/25/21 13:45 04/26/21 10:24 DC Bisacodyl (Dulcolax Supp) 10 mg PRN DAILY PRN RC 4th choice CONSTIPATION 04/25/21 13:45 04/26/21 10:24 DC Clopidogrel Bisulfate (Plavix) 75 mg DAILY PO 04/26/21 09:00 05/01/21 09:20 Duloxetine HCl (Cymbalta) 60 mg DAILY PO 04/26/21 09:00 04/27/21 20:03 DC 04/27/21 09:21 Guaifenesin (Robitussin) 200 mg PRN Q4HRS PRN PO COUGH 04/25/21 13:45 04/26/21 10:24 DC Hydralazine HCl (Apresoline) 25 mg TID PO 04/25/21 14:00 04/26/21 10:24 DC 04/26/21 08:34 Hydrocortisone (Proctosol-Hc) 1 neelima BID RC 04/25/21 21:00 04/28/21 11:07 DC 04/27/21 09:00 Lidocaine (Lidoderm) 1 patch DAILY TP 04/25/21 18:00 05/01/21 09:21 Metolazone (Zaroxolyn) 2.5 mg QODAY PO 04/26/21 09:00 04/26/21 10:24 DC 04/26/21 08:34 Nystatin (Nystop) 1 neelima BID TP 04/25/21 21:00 04/26/21 10:24 DC 04/26/21 08:43 Polyethylene Glycol (miraLAX) 17 gm PRN DAILY PRN PO 1st choice CONSTIPATION 04/25/21 13:45 Potassium Chloride (Klor-Con) 30 meq DAILY PO 04/26/21 09:00 05/01/21 09:20 Sennosides (Senna) 8.6 mg PRN QHS PRN PO constipation 04/25/21 13:45 04/26/21 10:24 DC Simethicone (Gas-X) 80 mg PRN BID PRN PO gas 04/25/21 13:45 04/26/21 10:24 DC Spironolactone (Aldactone) 25 mg DAILY PO 04/26/21 09:00 04/26/21 10:24 DC 04/26/21 08:34 Tramadol HCl (Ultram) 100 mg PRN Q4HRS PRN PO PAIN 04/25/21 13:45 04/27/21 10:01 DC 04/27/21 06:06 Trazodone HCl (Desyrel) 200 mg HS PO 04/25/21 21:00 05/01/21 21:27 Non-Formulary Medication (Arginine/ Glutamine/Calcium Hmb (Stephen Packet)) 1 each BID PO 04/25/21 21:00 04/25/21 15:06 DC Atorvastatin Calcium (Lipitor) 80 mg QHS PO 04/25/21 21:00 05/01/21 21:27 Bumetanide (Bumex) 2 mg DAILY PO 04/26/21 09:00 04/30/21 10:39 DC 04/30/21 08:57 Al Hydroxide/Mg Hydroxide (Mylanta Plus Xs) 30 ml PRN Q12HR PRN PO DYSPEPSIA 04/25/21 14:45 10/16/21 10:24 DC 04/26/21 01:37 Carvedilol (Coreg) 37.5 mg BID PO 04/25/21 21:00 05/01/21 21:29 Cyclobenzaprine HCl (Flexeril) 5 mg PRN BID PRN PO MUSCLE SPASMS 04/25/21 14:45 04/26/21 10:24 DC Insulin Human Lispro (HumaLOG) 8 units TIDBFRMEAL SQ 04/25/21 16:30 05/01/21 12:31 Insulin Glargine (Lantus Syringe) 48 unit QHS SQ 04/25/21 21:00 05/01/21 21:28 Loperamide HCl (Imodium) 2 mg PRN Q1HR PRN PO severe DIARRHEA 04/25/21 15:00 04/26/21 10:24 DC Loperamide HCl (Imodium) 2 mg PRN Q6HRS PRN PO MILD-MOD DIARRHEA 04/25/21 15:15 04/26/21 10:24 DC Melatonin (Melatonin) 9 mg QHS PO 04/25/21 21:00 04/26/21 10:24 DC 04/25/21 21:29 Non-Formulary Medication (Menthol/Zinc Oxide (Calmoseptine Ointment)) 3.5 gm BID TP 04/25/21 21:00 04/25/21 14:56 DC Multi-Ingred Cream/Lotion/Oil/ Oint (Hydrocerin) 1 neelima BID TP 04/25/21 21:00 04/26/21 10:24 DC 04/26/21 08:40 Multivitamins/ Calcium (Thera-M Plus) 1 tab DAILY PO 04/26/21 09:00 04/26/21 10:24 DC 04/26/21 08:34 Phenyleph/Shark Oil/Min Oil/Petrol (Preparation H) 1 neelima PRN Q12HR PRN RC RECTAL PAIN 04/25/21 15:00 04/26/21 10:24 DC Linagliptin (Tradjenta) 5 mg DAILY PO 04/26/21 09:00 05/01/21 09:20 Saliva Substitute (Biotene Moisturizing Mouth) 1 spray PRN Q1HR PRN PO DRY MOUTH 04/25/21 15:15 Duloxetine HCl (Cymbalta) 30 mg DAILY PO 04/27/21 09:00 04/27/21 07:48 DC Oxycodone/ Acetaminophen (Percocet 10) 1 tab PRN Q6HRS PRN PO PAIN 04/27/21 10:00 05/01/21 21:29 Duloxetine HCl (Cymbalta) 90 mg DAILY PO 04/28/21 09:00 05/01/21 09:20 Hydrocortisone (Proctosol-Hc) 1 neelima PRN BID PRN RC RECTAL PAIN 04/28/21 21:00 Aripiprazole (Abilify) 2.5 mg DAILY PO 04/29/21 09:00 04/29/21 20:16 DC 04/29/21 09:23 Aripiprazole (Abilify) 5 mg DAILY PO 04/30/21 09:00 05/01/21 09:19 I have reviewed the current psychotropics carefully including drug interactions. Risk benefit ratio favors no change other than as noted in my dictated progress note. Diagnosis: Problems: (1) Major depressive disorder, recurrent, severe with psychotic features (2) Personality disorder, unspecified (3) Anxiety disorder, unspecified (4) Impulse control disorder, unspecified ESE LEVI MD May 01, 2021 22:27
--- NOTE | 2021-05-01 22:30 | NUR ---
Pt sleeping now, no further complaints of pain.
--- NOTE | 2021-05-01 22:37 | PDOC ---
Exam Note: Josef Note: Please also refer to the separate dictated note~for this date of service dictated separately.~Patient seen individually. Discussed the patient with Nursing staff reviewed the chart.~Reviewed interim history and current functioning. Reviewed vital signs,~Labs/ Radiology~and current medications noted below. Continue current treatment with the changes noted in the dictated addendum note Assessment: Vital Signs/I&O: Vital Signs Date Time Temp Pulse Resp B/P (MAP) Pulse Ox O2 Delivery O2 Flow Rate FiO2 05/01/21 21:29 96 165/88 05/01/21 16:19 98.6 20 95 04/28/21 06:03 2.0 04/27/21 15:46 Room Air I & O 04/30/21 04/30/21 05/01/21 15:00 23:00 07:00 Intake Total 200 ml 120 ml 50 ml Output Total 500 ml Balance 200 ml 120 ml -450 ml Labs: Laboratory Tests Test 05/01/21 06:42 05/01/21 07:42 05/01/21 11:46 05/01/21 16:31 White Blood Count 6.6 x10^3/uL (4.0-11.0) Red Blood Count 4.22 x10^6/uL (4.30-5.70) L Hemoglobin 13.4 g/dL (13.0-17.5) Hematocrit 38.3 % (39.0-53.0) L Mean Corpuscular Volume 91 fL (79-100) Mean Corpuscular Hemoglobin 32 pg (25-35) Mean Corpuscular Hemoglobin Concent 35 g/dL (31-37) Red Cell Distribution Width 13.7 % (11.5-14.5) Platelet Count 182 x10^3/uL (140-400) Neutrophils (%) (Auto) 68 % (31-73) Lymphocytes (%) (Auto) 17 % (24-48) L Monocytes (%) (Auto) 13 % (0-9) H Eosinophils (%) (Auto) 1 % (0-3) Basophils (%) (Auto) 0 % (0-3) Neutrophils # (Auto) 4.5 x10^3uL (1.8-7.7) Lymphocytes # (Auto) 1.1 x10^3/uL (1.0-4.8) Monocytes # (Auto) 0.9 x10^3/uL (0.0-1.1) Eosinophils # (Auto) 0.1 x10^3/uL (0.0-0.7) Basophils # (Auto) 0.0 x10^3/uL (0.0-0.2) Sodium Level 132 mmol/L (136-145) L Potassium Level 3.1 mmol/L (3.5-5.1) L Chloride Level 94 mmol/L (98-107) L Carbon Dioxide Level 33 mmol/L (21-32) H Anion Gap 5 (6-14) L Blood Urea Nitrogen 38 mg/dL (8-26) H Creatinine 1.6 mg/dL (0.7-1.3) H Estimated GFR (Cockcroft-Gault) 43.3 BUN/Creatinine Ratio 24 (6-20) H Glucose Level 70 mg/dL (70-99) Calcium Level 8.9 mg/dL (8.5-10.1) Total Bilirubin 0.5 mg/dL (0.2-1.0) Aspartate Amino Transferase (AST) 28 U/L (15-37) Alanine Aminotransferase (ALT) 23 U/L (16-63) Alkaline Phosphatase 69 U/L (46-116) Total Protein 6.6 g/dL (6.4-8.2) Albumin 2.8 g/dL (3.4-5.0) L Albumin/Globulin Ratio 0.7 (1.0-1.7) L Glucose (Fingerstick) 75 mg/dL (70-99) 129 mg/dL (70-99) H 67 mg/dL (70-99) L Test 05/01/21 19:05 Glucose (Fingerstick) 135 mg/dL (70-99) H Current Medications: Meds: Laboratory Tests Test 05/01/21 06:42 05/01/21 07:42 05/01/21 11:46 05/01/21 16:31 White Blood Count 6.6 x10^3/uL Red Blood Count 4.22 x10^6/uL Hemoglobin 13.4 g/dL Hematocrit 38.3 % Mean Corpuscular Volume 91 fL Mean Corpuscular Hemoglobin 32 pg Mean Corpuscular Hemoglobin Concent 35 g/dL Red Cell Distribution Width 13.7 % Platelet Count 182 x10^3/uL Neutrophils (%) (Auto) 68 % Lymphocytes (%) (Auto) 17 % Monocytes (%) (Auto) 13 % Eosinophils (%) (Auto) 1 % Basophils (%) (Auto) 0 % Neutrophils # (Auto) 4.5 x10^3uL Lymphocytes # (Auto) 1.1 x10^3/uL Monocytes # (Auto) 0.9 x10^3/uL Eosinophils # (Auto) 0.1 x10^3/uL Basophils # (Auto) 0.0 x10^3/uL Sodium Level 132 mmol/L Potassium Level 3.1 mmol/L Chloride Level 94 mmol/L Carbon Dioxide Level 33 mmol/L Anion Gap 5 Blood Urea Nitrogen 38 mg/dL Creatinine 1.6 mg/dL Estimated GFR (Cockcroft-Gault) 43.3 BUN/Creatinine Ratio 24 Glucose Level 70 mg/dL Calcium Level 8.9 mg/dL Total Bilirubin 0.5 mg/dL Aspartate Amino Transf (AST/SGOT) 28 U/L Alanine Aminotransferase (ALT/SGPT) 23 U/L Alkaline Phosphatase 69 U/L Total Protein 6.6 g/dL Albumin 2.8 g/dL Albumin/Globulin Ratio 0.7 Glucose (Fingerstick) 75 mg/dL 129 mg/dL 67 mg/dL Test 05/01/21 19:05 Glucose (Fingerstick) 135 mg/dL Current Medications Medications (Trade) Dose Ordered Sig/Nicky Route PRN Reason Start Time Stop Time Status Last Admin Dose Admin Acetaminophen (Tylenol) 650 mg PRN Q6HRS PRN PO MILD PAIN / TEMP > 100.3'F 04/25/21 12:15 04/25/21 14:18 DC Multi-Ingredient Ointment (Analgesic [place]) 1 neelima PRN QID PRN TP MUSCLE PAIN 04/25/21 12:15 05/01/21 16:28 Al Hydroxide/Mg Hydroxide (Mylanta Plus Xs) 15 ml PRN AFTMEALHC PRN PO DYSPEPSIA 04/25/21 12:15 04/26/21 10:24 DC Magnesium Hydroxide (Milk Of Magnesia) 2,400 mg PRN QHS PRN PO 2nd choice CONSTIPATION 04/25/21 12:15 04/26/21 10:24 DC Acetaminophen (Tylenol) 1,000 mg TID PO 04/25/21 14:00 04/26/21 10:24 DC 04/26/21 08:36 Aspirin (Aspirin Chewable) 81 mg DAILY PO 04/26/21 09:00 05/01/21 09:22 Bisacodyl (Dulcolax Tab) 10 mg PRN BID PRN PO 3rd choice CONSTIPATION 04/25/21 13:45 04/26/21 10:24 DC Bisacodyl (Dulcolax Supp) 10 mg PRN DAILY PRN RC 4th choice CONSTIPATION 04/25/21 13:45 04/26/21 10:24 DC Clopidogrel Bisulfate (Plavix) 75 mg DAILY PO 04/26/21 09:00 05/01/21 09:20 Duloxetine HCl (Cymbalta) 60 mg DAILY PO 04/26/21 09:00 04/27/21 20:03 DC 04/27/21 09:21 Guaifenesin (Robitussin) 200 mg PRN Q4HRS PRN PO COUGH 04/25/21 13:45 04/26/21 10:24 DC Hydralazine HCl (Apresoline) 25 mg TID PO 04/25/21 14:00 04/26/21 10:24 DC 04/26/21 08:34 Hydrocortisone (Proctosol-Hc) 1 neelima BID RC 04/25/21 21:00 04/28/21 11:07 DC 04/27/21 09:00 Lidocaine (Lidoderm) 1 patch DAILY TP 04/25/21 18:00 05/01/21 09:21 Metolazone (Zaroxolyn) 2.5 mg QODAY PO 04/26/21 09:00 04/26/21 10:24 DC 04/26/21 08:34 Nystatin (Nystop) 1 neelima BID TP 04/25/21 21:00 04/26/21 10:24 DC 04/26/21 08:43 Polyethylene Glycol (miraLAX) 17 gm PRN DAILY PRN PO 1st choice CONSTIPATION 04/25/21 13:45 Potassium Chloride (Klor-Con) 30 meq DAILY PO 04/26/21 09:00 05/01/21 09:20 Sennosides (Senna) 8.6 mg PRN QHS PRN PO constipation 04/25/21 13:45 04/26/21 10:24 DC Simethicone (Gas-X) 80 mg PRN BID PRN PO gas 04/25/21 13:45 04/26/21 10:24 DC Spironolactone (Aldactone) 25 mg DAILY PO 04/26/21 09:00 04/26/21 10:24 DC 04/26/21 08:34 Tramadol HCl (Ultram) 100 mg PRN Q4HRS PRN PO PAIN 04/25/21 13:45 04/27/21 10:01 DC 04/27/21 06:06 Trazodone HCl (Desyrel) 200 mg HS PO 04/25/21 21:00 05/01/21 21:27 Non-Formulary Medication (Arginine/ Glutamine/Calcium Hmb (Stephen Packet)) 1 each BID PO 04/25/21 21:00 04/25/21 15:06 DC Atorvastatin Calcium (Lipitor) 80 mg QHS PO 04/25/21 21:00 05/01/21 21:27 Bumetanide (Bumex) 2 mg DAILY PO 04/26/21 09:00 04/30/21 10:39 DC 04/30/21 08:57 Al Hydroxide/Mg Hydroxide (Mylanta Plus Xs) 30 ml PRN Q12HR PRN PO DYSPEPSIA 04/25/21 14:45 04/26/21 10:24 DC 04/26/21 01:37 Carvedilol (Coreg) 37.5 mg BID PO 04/25/21 21:00 05/01/21 21:29 Cyclobenzaprine HCl (Flexeril) 5 mg PRN BID PRN PO MUSCLE SPASMS 04/25/21 14:45 04/26/21 10:24 DC Insulin Human Lispro (HumaLOG) 8 units TIDBFRMEAL SQ 04/25/21 16:30 05/01/21 12:31 Insulin Glargine (Lantus Syringe) 48 unit QHS SQ 04/25/21 21:00 05/01/21 21:28 Loperamide HCl (Imodium) 2 mg PRN Q1HR PRN PO severe DIARRHEA 04/25/21 15:00 04/26/21 10:24 DC Loperamide HCl (Imodium) 2 mg PRN Q6HRS PRN PO MILD-MOD DIARRHEA 04/25/21 15:15 04/26/21 10:24 DC Melatonin (Melatonin) 9 mg QHS PO 04/25/21 21:00 04/26/21 10:24 DC 04/25/21 21:29 Non-Formulary Medication (Menthol/Zinc Oxide (Calmoseptine Ointment)) 3.5 gm BID TP 04/25/21 21:00 04/25/21 14:56 DC Multi-Ingred Cream/Lotion/Oil/ Oint (Hydrocerin) 1 neelima BID TP 04/25/21 21:00 04/26/21 10:24 DC 04/26/21 08:40 Multivitamins/ Calcium (Thera-M Plus) 1 tab DAILY PO 04/26/21 09:00 04/26/21 10:24 DC 04/26/21 08:34 Phenyleph/Shark Oil/Min Oil/Petrol (Preparation H) 1 neelima PRN Q12HR PRN RC RECTAL PAIN 04/25/21 15:00 04/26/21 10:24 DC Linagliptin (Tradjenta) 5 mg DAILY PO 04/26/21 09:00 05/01/21 09:20 Saliva Substitute (Biotene Moisturizing Mouth) 1 spray PRN Q1HR PRN PO DRY MOUTH 04/25/21 15:15 Duloxetine HCl (Cymbalta) 30 mg DAILY PO 04/27/21 09:00 04/27/21 07:48 DC Oxycodone/ Acetaminophen (Percocet 10/325) 1 tab PRN Q6HRS PRN PO PAIN 04/27/21 10:00 05/01/21 21:29 Duloxetine HCl (Cymbalta) 90 mg DAILY PO 04/28/21 09:00 05/01/21 09:20 Hydrocortisone (Proctosol-Hc) 1 neelima PRN BID PRN RC RECTAL PAIN 04/28/21 21:00 Aripiprazole (Abilify) 2.5 mg DAILY PO 04/29/21 09:00 04/29/21 20:16 DC 04/29/21 09:23 Aripiprazole (Abilify) 5 mg DAILY PO 04/30/21 09:00 05/01/21 09:19 I have reviewed the current psychotropics carefully including drug interactions. Risk benefit ratio favors no change other than as noted in my dictated progress note. Diagnosis: Problems: (1) Impulse control disorder, unspecified (2) Anxiety disorder, unspecified (3) Major depressive disorder, recurrent, severe with psychotic features (4) Personality disorder, unspecified ESE LEVI MD May 01, 2021 22:37
--- NOTE | 2021-05-02 03:00 | NUR ---
PRN percocet given for right shoulder pain.
[2021-05-02] MEDS: oxyCODONE/APAP 10/325 1 TAB TABLET PO PRN ×3 (03:07→16:32)
--- NOTE | 2021-05-02 03:45 | NUR ---
Pt appears to be asleep, no further complaints of pain.
[2021-05-02 06:14] VITALS: BP 108/78
[2021-05-02 06:58] LABS: CALCIUM 8.9 mg/dL (8.5-10.1); CREATININE 1.7 mg/dL (0.7-1.3); GFR 40.4; POTASSIUM 3.3 mmol/L (3.5-5.1)
[2021-05-02] MEDS: INSULIN LISPRO 300 UNITS/3 ML VIAL. SQ SCH ×3 (07:30→16:30)
--- NOTE | 2021-05-02 08:50 | PDOC ---
Exam Note: Josef Note: This note is a late entry for 04/30/2021 covers elements not covered in my initial note. Subjective: The patient was seen individually in the evening of 04/30/2021 with Elyse OMDI, discussed and reviewed the chart. The patient slept 4-1/2 hours previous night. He has been extremely somatic, dramatic regarding pain which he always states as 10/10. Per nursing report he is attention seeking but yelling is better. He is very medication seeking for Percocet p.r.n. We will defer to Dr. Hendrickson/Dr. Gandhi for this. 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 Review of Systems: Ambulation impaired in wheelchair. He complains of pain 101/10 back, shoulders all over. No CV, , pulmonary system symptoms on review. Mental Status Exam: The patient is reasonably oriented. Speech coherent. Abstraction fair. Computation impaired. Language function intact. Attention span short. Mood and affect somewhat anxious, labile. Laboratory Data: Reviewed. Impression: Major depressive disorder, recurrent. Anxiety disorder, unspecified. Personality disorder unspecified. Impulse control disorder. Morbid obesity. Chronic pain. Plan: Continue psychotropics from initial note. Continue Cymbalta 90 mg a day, Abilify 5 mg a day to augment the Cymbalta, trazodone 200 mg h.s. Adjust further as clinically indicated. Assessment: Vital Signs/I&O: Vital Signs Date Time Temp Pulse Resp B/P (MAP) Pulse Ox O2 Delivery O2 Flow Rate FiO2 05/02/21 06:14 96.9 84 18 108/78 (88) 97 2.0 04/27/21 15:46 Room Air I & O 05/01/21 05/01/21 05/02/21 15:00 23:00 07:00 Intake Total 500 ml 600 ml Output Total 320 ml Balance 180 ml 600 ml Labs: Laboratory Tests Test 05/01/21 11:46 05/01/21 16:31 05/01/21 19:05 05/02/21 06:35 Glucose (Fingerstick) 129 mg/dL (70-99) H 67 mg/dL (70-99) L 135 mg/dL (70-99) H Sodium Level 132 mmol/L (136-145) L Potassium Level 3.3 mmol/L (3.5-5.1) L Chloride Level 94 mmol/L (98-107) L Carbon Dioxide Level 31 mmol/L (21-32) Anion Gap 7 (6-14) Blood Urea Nitrogen 39 mg/dL (8-26) H Creatinine 1.7 mg/dL (0.7-1.3) H Estimated GFR (Cockcroft-Gault) 40.4 Glucose Level 97 mg/dL (70-99) Calcium Level 8.9 mg/dL (8.5-10.1) Test 05/02/21 07:23 Glucose (Fingerstick) 95 mg/dL (70-99) Current Medications: Meds: Laboratory Tests Test 05/01/21 11:46 05/01/21 16:31 05/01/21 19:05 05/02/21 06:35 Glucose (Fingerstick) 129 mg/dL 67 mg/dL 135 mg/dL Sodium Level 132 mmol/L Potassium Level 3.3 mmol/L Chloride Level 94 mmol/L Carbon Dioxide Level 31 mmol/L Anion Gap 7 Blood Urea Nitrogen 39 mg/dL Creatinine 1.7 mg/dL Estimated GFR (Cockcroft-Gault) 40.4 Glucose Level 97 mg/dL Calcium Level 8.9 mg/dL Test 05/02/21 07:23 Glucose (Fingerstick) 95 mg/dL Current Medications Medications (Trade) Dose Ordered Sig/Nicky Route PRN Reason Start Time Stop Time Status Last Admin Dose Admin Acetaminophen (Tylenol) 650 mg PRN Q6HRS PRN PO MILD PAIN / TEMP > 100.3'F 04/25/21 12:15 04/25/21 14:18 DC Multi-Ingredient Ointment (Analgesic [place]) 1 neelima PRN QID PRN TP MUSCLE PAIN 04/25/21 12:15 05/01/21 16:28 Al Hydroxide/Mg Hydroxide (Mylanta Plus Xs) 15 ml PRN AFTMEALHC PRN PO DYSPEPSIA 04/25/21 12:15 04/26/21 10:24 DC Magnesium Hydroxide (Milk Of Magnesia) 2,400 mg PRN QHS PRN PO 2nd choice CONSTIPATION 04/25/21 12:15 04/26/21 10:24 DC Acetaminophen (Tylenol) 1,000 mg TID PO 04/25/21 14:00 04/26/21 10:24 DC 04/26/21 08:36 Aspirin (Aspirin Chewable) 81 mg DAILY PO 04/26/21 09:00 05/01/21 09:22 Bisacodyl (Dulcolax Tab) 10 mg PRN BID PRN PO 3rd choice CONSTIPATION 04/25/21 13:45 04/26/21 10:24 DC Bisacodyl (Dulcolax Supp) 10 mg PRN DAILY PRN RC 4th choice CONSTIPATION 04/25/21 13:45 04/26/21 10:24 DC Clopidogrel Bisulfate (Plavix) 75 mg DAILY PO 04/26/21 09:00 05/01/21 09:20 Duloxetine HCl (Cymbalta) 60 mg DAILY PO 04/26/21 09:00 04/27/21 20:03 DC 04/27/21 09:21 Guaifenesin (Robitussin) 200 mg PRN Q4HRS PRN PO COUGH 04/25/21 13:45 04/26/21 10:24 DC Hydralazine HCl (Apresoline) 25 mg TID PO 04/25/21 14:00 04/26/21 10:24 DC 04/26/21 08:34 Hydrocortisone (Proctosol-Hc) 1 neelima BID RC 04/25/21 21:00 04/28/21 11:07 DC 04/27/21 09:00 Lidocaine (Lidoderm) 1 patch DAILY TP 04/25/21 18:00 05/01/21 09:21 Metolazone (Zaroxolyn) 2.5 mg QODAY PO 04/26/21 09:00 04/26/21 10:24 DC 04/26/21 08:34 Nystatin (Nystop) 1 neelima BID TP 04/25/21 21:00 04/26/21 10:24 DC 04/26/21 08:43 Polyethylene Glycol (miraLAX) 17 gm PRN DAILY PRN PO 1st choice CONSTIPATION 04/25/21 13:45 Potassium Chloride (Klor-Con) 30 meq DAILY PO 04/26/21 09:00 05/01/21 09:20 Sennosides (Senna) 8.6 mg PRN QHS PRN PO constipation 04/25/21 13:45 04/26/21 10:24 DC Simethicone (Gas-X) 80 mg PRN BID PRN PO gas 04/25/21 13:45 04/26/21 10:24 DC Spironolactone (Aldactone) 25 mg DAILY PO 04/26/21 09:00 04/26/21 10:24 DC 04/26/21 08:34 Tramadol HCl (Ultram) 100 mg PRN Q4HRS PRN PO PAIN 04/25/21 13:45 04/27/21 10:01 DC 04/27/21 06:06 Trazodone HCl (Desyrel) 200 mg HS PO 04/25/21 21:00 05/01/21 21:27 Non-Formulary Medication (Arginine/ Glutamine/Calcium Hmb (Stephen Packet)) 1 each BID PO 04/25/21 21:00 04/25/21 15:06 DC Atorvastatin Calcium (Lipitor) 80 mg QHS PO 04/25/21 21:00 05/01/21 21:27 Bumetanide (Bumex) 2 mg DAILY PO 04/26/21 09:00 04/30/21 10:39 DC 04/30/21 08:57 Al Hydroxide/Mg Hydroxide (Mylanta Plus Xs) 30 ml PRN Q12HR PRN PO DYSPEPSIA 04/25/21 14:45 04/26/21 10:24 DC 04/26/21 01:37 Carvedilol (Coreg) 37.5 mg BID PO 04/25/21 21:00 05/01/21 21:29 Cyclobenzaprine HCl (Flexeril) 5 mg PRN BID PRN PO MUSCLE SPASMS 04/25/21 14:45 04/26/21 10:24 DC Insulin Human Lispro (HumaLOG) 8 units TIDBFRMEAL SQ 04/25/21 16:30 05/01/21 12:31 Insulin Glargine (Lantus Syringe) 48 unit QHS SQ 04/25/21 21:00 05/01/21 21:28 Loperamide HCl (Imodium) 2 mg PRN Q1HR PRN PO severe DIARRHEA 04/25/21 15:00 04/26/21 10:24 DC Loperamide HCl (Imodium) 2 mg PRN Q6HRS PRN PO MILD-MOD DIARRHEA 04/25/21 15:15 04/26/21 10:24 DC Melatonin (Melatonin) 9 mg QHS PO 04/25/21 21:00 04/26/21 10:24 DC 04/25/21 21:29 Non-Formulary Medication (Menthol/Zinc Oxide (Calmoseptine Ointment)) 3.5 gm BID TP 04/25/21 21:00 04/25/21 14:56 DC Multi-Ingred Cream/Lotion/Oil/ Oint (Hydrocerin) 1 neelima BID TP 04/25/21 21:00 04/26/21 10:24 DC 04/26/21 08:40 Multivitamins/ Calcium (Thera-M Plus) 1 tab DAILY PO 04/26/21 09:00 04/26/21 10:24 DC 04/26/21 08:34 Phenyleph/Shark Oil/Min Oil/Petrol (Preparation H) 1 neelima PRN Q12HR PRN RC RECTAL PAIN 04/25/21 15:00 04/26/21 10:24 DC Linagliptin (Tradjenta) 5 mg DAILY PO 04/26/21 09:00 05/01/21 09:20 Saliva Substitute (Biotene Moisturizing Mouth) 1 spray PRN Q1HR PRN PO DRY MOUTH 04/25/21 15:15 Duloxetine HCl (Cymbalta) 30 mg DAILY PO 04/27/21 09:00 04/27/21 07:48 DC Oxycodone/ Acetaminophen (Percocet 10/325) 1 tab PRN Q6HRS PRN PO PAIN 04/27/21 10:00 05/02/21 03:07 Duloxetine HCl (Cymbalta) 90 mg DAILY PO 04/28/21 09:00 05/01/21 09:20 Hydrocortisone (Proctosol-Hc) 1 neelima PRN BID PRN RC RECTAL PAIN 04/28/21 21:00 Aripiprazole (Abilify) 2.5 mg DAILY PO 04/29/21 09:00 04/29/21 20:16 DC 04/29/21 09:23 Aripiprazole (Abilify) 5 mg DAILY PO 04/30/21 09:00 05/01/21 09:19 I have reviewed the current psychotropics carefully including drug interactions. Risk benefit ratio favors no change other than as noted in my dictated progress note. Diagnosis: Problems: (1) Major depressive disorder, recurrent (2) Anxiety disorder, unspecified (3) Impulse control disorder, unspecified (4) Personality disorder, unspecified (5) Morbid obesity (6) Chronic pain ESE LEVI MD May 02, 2021 08:50
[2021-05-02] MEDS: ARIPiprazole 5 MG TABLET PO SCH (09:17)
[2021-05-02] MEDS: CLOPIDOGREL BISULFATE 75 MG TABLET PO SCH (09:18)
[2021-05-02] MEDS: CARVEDILOL 12.5 MG TABLET PO SCH ×2 (09:18→20:00)
[2021-05-02] MEDS: ASPIRIN CHEWABLE 81 MG TABLET. PO SCH (09:18)
[2021-05-02] MEDS: POTASSIUM CHLORIDE 10 MEQ TABLET.ER. PO SCH (09:18)
[2021-05-02] MEDS: LINAGLIPTIN 5 MG TABLET PO SCH (09:19)
[2021-05-02] MEDS: LIDOCAINE (700MG/PATCH) PATCH. TP SCH (09:19)
[2021-05-02] MEDS: DULoxetine HCL 30 MG CAPSULE.DR PO SCH (09:19)
--- NOTE | 2021-05-02 14:59 | NUR ---
Pt became frustrated at the disruptive actions of another patient in the day room. He became so angry that he loudly yelled "shut the hell up!" directly in the other patient's face in very close proximity. Both pt and the other individual were by staff and instructed to stay away from each other.
[2021-05-02 15:48] VITALS: BP 120/90
--- NOTE | 2021-05-02 17:49 | NUR ---
Patient has been labile, attention seeking at times, cooperative with medications, and social with peers. In the later afternoon he started randomly calling out, then started making statements such as "I can't continue like this" and "I have to stop." Patient went to his room where staff members reported he was making crying noises. Went to check on patient, he complained of pain; prn medication provided per eMAR. Will continue to monitor and report to oncoming shift.
[2021-05-02] MEDS: traZODone 100 MG TABLET. PO SCH (20:00)
[2021-05-02] MEDS: ATORVASTATIN CALCIUM 20 MG TABLET PO SCH (20:00)
[2021-05-02] MEDS: ACETAMINOPHEN 500 MG TABLET PO PRN (20:08)
[2021-05-02] MEDS: INSULIN GLARGINE SYRINGE. SQ SCH (21:00)
--- NOTE | 2021-05-02 21:42 | PDOC ---
Exam Note: Josef Note: Please also refer to the separate dictated note~for this date of service dictated separately.~Patient seen individually. Discussed the patient with Nursing staff reviewed the chart.~Reviewed interim history and current functioning. Reviewed vital signs,~Labs/ Radiology~and current medications noted below. Continue current treatment with the changes noted in the dictated addendum note Assessment: Vital Signs/I&O: Vital Signs Date Time Temp Pulse Resp B/P (MAP) Pulse Ox O2 Delivery O2 Flow Rate FiO2 05/02/21 20:00 100 120/90 05/02/21 15:48 97.0 20 93 05/02/21 06:14 2.0 04/27/21 15:46 Room Air I & O 05/01/21 05/01/21 05/02/21 15:00 23:00 07:00 Intake Total 500 ml 600 ml Output Total 320 ml Balance 180 ml 600 ml Labs: Laboratory Tests Test 05/02/21 06:35 05/02/21 07:23 05/02/21 11:49 05/02/21 16:18 Sodium Level 132 mmol/L (136-145) L Potassium Level 3.3 mmol/L (3.5-5.1) L Chloride Level 94 mmol/L (98-107) L Carbon Dioxide Level 31 mmol/L (21-32) Anion Gap 7 (6-14) Blood Urea Nitrogen 39 mg/dL (8-26) H Creatinine 1.7 mg/dL (0.7-1.3) H Estimated GFR (Cockcroft-Gault) 40.4 Glucose Level 97 mg/dL (70-99) Calcium Level 8.9 mg/dL (8.5-10.1) Glucose (Fingerstick) 95 mg/dL (70-99) 169 mg/dL (70-99) H 90 mg/dL (70-99) Test 05/02/21 19:12 Glucose (Fingerstick) 158 mg/dL (70-99) H Current Medications: Meds: Laboratory Tests Test 05/02/21 06:35 05/02/21 07:23 05/02/21 11:49 05/02/21 16:18 Sodium Level 132 mmol/L Potassium Level 3.3 mmol/L Chloride Level 94 mmol/L Carbon Dioxide Level 31 mmol/L Anion Gap 7 Blood Urea Nitrogen 39 mg/dL Creatinine 1.7 mg/dL Estimated GFR (Cockcroft-Gault) 40.4 Glucose Level 97 mg/dL Calcium Level 8.9 mg/dL Glucose (Fingerstick) 95 mg/dL 169 mg/dL 90 mg/dL Test 05/02/21 19:12 Glucose (Fingerstick) 158 mg/dL Current Medications Medications (Trade) Dose Ordered Sig/Nicky Route PRN Reason Start Time Stop Time Status Last Admin Dose Admin Acetaminophen (Tylenol) 650 mg PRN Q6HRS PRN PO MILD PAIN / TEMP > 100.3'F 04/25/21 12:15 04/25/21 14:18 DC Multi-Ingredient Ointment (Analgesic [place]) 1 neelima PRN QID PRN TP MUSCLE PAIN 04/25/21 12:15 05/01/21 16:28 Al Hydroxide/Mg Hydroxide (Mylanta Plus Xs) 15 ml PRN AFTMEALHC PRN PO DYSPEPSIA 04/25/21 12:15 04/26/21 10:24 DC Magnesium Hydroxide (Milk Of Magnesia) 2,400 mg PRN QHS PRN PO 2nd choice CONSTIPATION 04/25/21 12:15 04/26/21 10:24 DC Acetaminophen (Tylenol) 1,000 mg TID PO 04/25/21 14:00 04/26/21 10:24 DC 04/26/21 08:36 Aspirin (Aspirin Chewable) 81 mg DAILY PO 04/26/21 09:00 05/02/21 09:18 Bisacodyl (Dulcolax Tab) 10 mg PRN BID PRN PO 3rd choice CONSTIPATION 04/25/21 13:45 04/26/21 10:24 DC Bisacodyl (Dulcolax Supp) 10 mg PRN DAILY PRN RC 4th choice CONSTIPATION 04/25/21 13:45 04/26/21 10:24 DC Clopidogrel Bisulfate (Plavix) 75 mg DAILY PO 04/26/21 09:00 05/02/21 09:18 Duloxetine HCl (Cymbalta) 60 mg DAILY PO 04/26/21 09:00 04/27/21 20:03 DC 04/27/21 09:21 Guaifenesin (Robitussin) 200 mg PRN Q4HRS PRN PO COUGH 04/25/21 13:45 04/26/21 10:24 DC Hydralazine HCl (Apresoline) 25 mg TID PO 04/25/21 14:00 04/26/21 10:24 DC 04/26/21 08:34 Hydrocortisone (Proctosol-Hc) 1 neelima BID RC 04/25/21 21:00 04/28/21 11:07 DC 04/27/21 09:00 Lidocaine (Lidoderm) 1 patch DAILY TP 04/25/21 18:00 05/02/21 09:19 Metolazone (Zaroxolyn) 2.5 mg QODAY PO 04/26/21 09:00 04/26/21 10:24 DC 04/26/21 08:34 Nystatin (Nystop) 1 neelima BID TP 04/25/21 21:00 04/26/21 10:24 DC 04/26/21 08:43 Polyethylene Glycol (miraLAX) 17 gm PRN DAILY PRN PO 1st choice CONSTIPATION 04/25/21 13:45 Potassium Chloride (Klor-Con) 30 meq DAILY PO 04/26/21 09:00 05/02/21 09:18 Sennosides (Senna) 8.6 mg PRN QHS PRN PO constipation 04/25/21 13:45 04/26/21 10:24 DC Simethicone (Gas-X) 80 mg PRN BID PRN PO gas 04/25/21 13:45 04/26/21 10:24 DC Spironolactone (Aldactone) 25 mg DAILY PO 04/26/21 09:00 04/26/21 10:24 DC 04/26/21 08:34 Tramadol HCl (Ultram) 100 mg PRN Q4HRS PRN PO PAIN 04/25/21 13:45 04/27/21 10:01 DC 04/27/21 06:06 Trazodone HCl (Desyrel) 200 mg HS PO 04/25/21 21:00 05/02/21 20:00 Non-Formulary Medication (Arginine/ Glutamine/Calcium Hmb (Stephen Packet)) 1 each BID PO 04/25/21 21:00 04/25/21 15:06 DC Atorvastatin Calcium (Lipitor) 80 mg QHS PO 04/25/21 21:00 05/02/21 20:00 Bumetanide (Bumex) 2 mg DAILY PO 04/26/21 09:00 04/30/21 10:39 DC 04/30/21 08:57 Al Hydroxide/Mg Hydroxide (Mylanta Plus Xs) 30 ml PRN Q12HR PRN PO DYSPEPSIA 04/25/21 14:45 04/26/21 10:24 DC 04/26/21 01:37 Carvedilol (Coreg) 37.5 mg BID PO 04/25/21 21:00 05/02/21 20:00 Cyclobenzaprine HCl (Flexeril) 5 mg PRN BID PRN PO MUSCLE SPASMS 04/25/21 14:45 04/26/21 10:24 DC Insulin Human Lispro (HumaLOG) 8 units TIDBFRMEAL SQ 04/25/21 16:30 05/02/21 12:37 Insulin Glargine (Lantus Syringe) 48 unit QHS SQ 04/25/21 21:00 05/01/21 21:28 Loperamide HCl (Imodium) 2 mg PRN Q1HR PRN PO severe DIARRHEA 04/25/21 15:00 04/26/21 10:24 DC Loperamide HCl (Imodium) 2 mg PRN Q6HRS PRN PO MILD-MOD DIARRHEA 04/25/21 15:15 04/26/21 10:24 DC Melatonin (Melatonin) 9 mg QHS PO 04/25/21 21:00 04/26/21 10:24 DC 04/25/21 21:29 Non-Formulary Medication (Menthol/Zinc Oxide (Calmoseptine Ointment)) 3.5 gm BID TP 04/25/21 21:00 04/25/21 14:56 DC Multi-Ingred Cream/Lotion/Oil/ Oint (Hydrocerin) 1 neelima BID TP 04/25/21 21:00 04/26/21 10:24 DC 04/26/21 08:40 Multivitamins/ Calcium (Thera-M Plus) 1 tab DAILY PO 04/26/21 09:00 04/26/21 10:24 DC 04/26/21 08:34 Phenyleph/Shark Oil/Min Oil/Petrol (Preparation H) 1 neelima PRN Q12HR PRN RC RECTAL PAIN 04/25/21 15:00 04/26/21 10:24 DC Linagliptin (Tradjenta) 5 mg DAILY PO 04/26/21 09:00 05/02/21 09:19 Saliva Substitute (Biotene Moisturizing Mouth) 1 spray PRN Q1HR PRN PO DRY MOUTH 04/25/21 15:15 Duloxetine HCl (Cymbalta) 30 mg DAILY PO 04/27/21 09:00 04/27/21 07:48 DC Oxycodone/ Acetaminophen (Percocet 10/325) 1 tab PRN Q6HRS PRN PO PAIN 04/27/21 10:00 05/02/21 16:32 Duloxetine HCl (Cymbalta) 90 mg DAILY PO 04/28/21 09:00 05/02/21 09:19 Hydrocortisone (Proctosol-Hc) 1 neelima PRN BID PRN RC RECTAL PAIN 04/28/21 21:00 Aripiprazole (Abilify) 2.5 mg DAILY PO 04/29/21 09:00 04/29/21 20:16 DC 04/29/21 09:23 Aripiprazole (Abilify) 5 mg DAILY PO 04/30/21 09:00 05/02/21 09:17 Acetaminophen (Tylenol) 1,000 mg PRN Q6HRS PRN PO PAIN 05/02/21 11:00 05/02/21 20:08 Current Medications Medications (Trade) Dose Ordered Sig/Nicky Route PRN Reason Start Time Stop Time Status Last Admin Dose Admin Acetaminophen (Tylenol) 1,000 mg PRN Q6HRS PRN PO PAIN 05/02/21 11:00 05/02/21 20:08 I have reviewed the current psychotropics carefully including drug interactions. Risk benefit ratio favors no change other than as noted in my dictated progress note. Diagnosis: Problems: (1) Impulse control disorder, unspecified (2) Anxiety disorder, unspecified (3) Major depressive disorder, recurrent, severe with psychotic features (4) Personality disorder, unspecified (5) Morbid obesity (6) Chronic pain ESE LEVI MD May 02, 2021 21:42
--- NOTE | 2021-05-03 02:54 | NUR ---
Nursing Note The patient was located in the hallway for his assessment and medication pass. The patient was compliant with medications and took them whole. The patient requested PRN Tylenol for pain. The patient received PRN Tylenol with HS medications. The patient was alert to name, date and location. The patient is currently sleeping in his room.
[2021-05-03 06:00] VITALS: BP 119/76
[2021-05-03] MEDS: ASPIRIN CHEWABLE 81 MG TABLET. PO SCH (08:53)
[2021-05-03] MEDS: CLOPIDOGREL BISULFATE 75 MG TABLET PO SCH (08:54)
[2021-05-03] MEDS: POTASSIUM CHLORIDE 10 MEQ TABLET.ER. PO SCH (08:54)
[2021-05-03] MEDS: ARIPiprazole 5 MG TABLET PO SCH (08:54)
[2021-05-03] MEDS: LINAGLIPTIN 5 MG TABLET PO SCH (08:54)
[2021-05-03] MEDS: DULoxetine HCL 30 MG CAPSULE.DR PO SCH (08:54)
[2021-05-03] MEDS: CARVEDILOL 12.5 MG TABLET PO SCH ×2 (08:54→20:14)
[2021-05-03] MEDS: LIDOCAINE (700MG/PATCH) PATCH. TP SCH (08:55)
[2021-05-03] MEDS: oxyCODONE/APAP 10/325 1 TAB TABLET PO PRN ×3 (08:56→21:21)
[2021-05-03] MEDS: INSULIN LISPRO 300 UNITS/3 ML VIAL. SQ SCH ×3 (09:01→16:30)
[2021-05-03] MEDS: MAG HYDROX/AL HYDROX/SIMETH 30 ML ORAL.SUSP PO PRN (10:52)
[2021-05-03 15:11] VITALS: BP 124/80
--- NOTE | 2021-05-03 17:48 | NUR ---
Patient has been labile, attention seeking at times, cooperative with medications, and social with peers. In the later afternoon he was withdrawn to his room. Patient had multiple complaints of pain, prn medication provided per eMAR. Will continue to monitor and report to oncoming shift.
[2021-05-03] MEDS: traZODone 100 MG TABLET. PO SCH (20:13)
[2021-05-03] MEDS: ATORVASTATIN CALCIUM 20 MG TABLET PO SCH (20:13)
--- NOTE | 2021-05-03 22:06 | PDOC ---
Exam Note: Josef Note: Please also refer to the separate dictated note~for this date of service dictated separately.~Patient seen individually. Discussed the patient with Nursing staff reviewed the chart.~Reviewed interim history and current functioning. Reviewed vital signs,~Labs/ Radiology~and current medications noted below. Continue current treatment with the changes noted in the dictated addendum note Assessment: Vital Signs/I&O: Vital Signs Date Time Temp Pulse Resp B/P (MAP) Pulse Ox O2 Delivery O2 Flow Rate FiO2 05/03/21 20:14 99 124/80 05/03/21 15:11 97.4 20 98 05/02/21 06:14 2.0 04/27/21 15:46 Room Air I & O 05/02/21 05/02/21 05/03/21 15:00 23:00 07:00 Intake Total 830 ml 360 ml Output Total 200 ml Balance 830 ml 360 ml -200 ml Labs: Laboratory Tests Test 05/03/21 07:29 05/03/21 11:26 05/03/21 16:30 05/03/21 19:16 Glucose (Fingerstick) 151 mg/dL (70-99) H 180 mg/dL (70-99) H 100 mg/dL (70-99) H 192 mg/dL (70-99) H Current Medications: Meds: Laboratory Tests Test 05/03/21 07:29 05/03/21 11:26 05/03/21 16:30 05/03/21 19:16 Glucose (Fingerstick) 151 mg/dL 180 mg/dL 100 mg/dL 192 mg/dL Current Medications Medications (Trade) Dose Ordered Sig/Nicky Route PRN Reason Start Time Stop Time Status Last Admin Dose Admin Acetaminophen (Tylenol) 650 mg PRN Q6HRS PRN PO MILD PAIN / TEMP > 100.3'F 04/25/21 12:15 04/25/21 14:18 DC Multi-Ingredient Ointment (Analgesic [place]) 1 neelima PRN QID PRN TP MUSCLE PAIN 04/25/21 12:15 05/01/21 16:28 Al Hydroxide/Mg Hydroxide (Mylanta Plus Xs) 15 ml PRN AFTMEALHC PRN PO DYSPEPSIA 04/25/21 12:15 04/26/21 10:24 DC Magnesium Hydroxide (Milk Of Magnesia) 2,400 mg PRN QHS PRN PO 2nd choice CONSTIPATION 04/25/21 12:15 04/26/21 10:24 DC Acetaminophen (Tylenol) 1,000 mg TID PO 04/25/21 14:00 04/26/21 10:24 DC 04/26/21 08:36 Aspirin (Aspirin Chewable) 81 mg DAILY PO 04/26/21 09:00 05/03/21 08:53 Bisacodyl (Dulcolax Tab) 10 mg PRN BID PRN PO 3rd choice CONSTIPATION 04/25/21 13:45 04/26/21 10:24 DC Bisacodyl (Dulcolax Supp) 10 mg PRN DAILY PRN RC 4th choice CONSTIPATION 04/25/21 13:45 04/26/21 10:24 DC Clopidogrel Bisulfate (Plavix) 75 mg DAILY PO 04/26/21 09:00 05/03/21 08:54 Duloxetine HCl (Cymbalta) 60 mg DAILY PO 04/26/21 09:00 04/27/21 20:03 DC 04/27/21 09:21 Guaifenesin (Robitussin) 200 mg PRN Q4HRS PRN PO COUGH 04/25/21 13:45 04/26/21 10:24 DC Hydralazine HCl (Apresoline) 25 mg TID PO 04/25/21 14:00 04/26/21 10:24 DC 04/26/21 08:34 Hydrocortisone (Proctosol-Hc) 1 neelima BID RC 04/25/21 21:00 04/28/21 11:07 DC 04/27/21 09:00 Lidocaine (Lidoderm) 1 patch DAILY TP 04/25/21 18:00 05/03/21 08:55 Metolazone (Zaroxolyn) 2.5 mg QODAY PO 04/26/21 09:00 04/26/21 10:24 DC 04/26/21 08:34 Nystatin (Nystop) 1 neelima BID TP 04/25/21 21:00 04/26/21 10:24 DC 04/26/21 08:43 Polyethylene Glycol (miraLAX) 17 gm PRN DAILY PRN PO 1st choice CONSTIPATION 04/25/21 13:45 Potassium Chloride (Klor-Con) 30 meq DAILY PO 04/26/21 09:00 05/03/21 08:54 Sennosides (Senna) 8.6 mg PRN QHS PRN PO constipation 04/25/21 13:45 04/26/21 10:24 DC Simethicone (Gas-X) 80 mg PRN BID PRN PO gas 04/25/21 13:45 04/26/21 10:24 DC Spironolactone (Aldactone) 25 mg DAILY PO 04/26/21 09:00 04/26/21 10:24 DC 04/26/21 08:34 Tramadol HCl (Ultram) 100 mg PRN Q4HRS PRN PO PAIN 04/25/21 13:45 04/27/21 10:01 DC 04/27/21 06:06 Trazodone HCl (Desyrel) 200 mg HS PO 04/25/21 21:00 05/03/21 20:13 Non-Formulary Medication (Arginine/ Glutamine/Calcium Hmb (Stephen Packet)) 1 each BID PO 04/25/21 21:00 04/25/21 15:06 DC Atorvastatin Calcium (Lipitor) 80 mg QHS PO 04/25/21 21:00 05/03/21 20:13 Bumetanide (Bumex) 2 mg DAILY PO 04/26/21 09:00 04/30/21 10:39 DC 04/30/21 08:57 Al Hydroxide/Mg Hydroxide (Mylanta Plus Xs) 30 ml PRN Q12HR PRN PO DYSPEPSIA 04/25/21 14:45 04/26/21 10:24 DC 04/26/21 01:37 Carvedilol (Coreg) 37.5 mg BID PO 04/25/21 21:00 05/03/21 20:14 Cyclobenzaprine HCl (Flexeril) 5 mg PRN BID PRN PO MUSCLE SPASMS 04/25/21 14:45 04/26/21 10:24 DC Insulin Human Lispro (HumaLOG) 8 units TIDBFRMEAL SQ 04/25/21 16:30 05/03/21 12:29 Insulin Glargine (Lantus Syringe) 48 unit QHS SQ 04/25/21 21:00 05/01/21 21:28 Loperamide HCl (Imodium) 2 mg PRN Q1HR PRN PO severe DIARRHEA 04/25/21 15:00 10/16/21 10:24 DC Loperamide HCl (Imodium) 2 mg PRN Q6HRS PRN PO MILD-MOD DIARRHEA 04/25/21 15:15 04/26/21 10:24 DC Melatonin (Melatonin) 9 mg QHS PO 04/25/21 21:00 04/26/21 10:24 DC 04/25/21 21:29 Non-Formulary Medication (Menthol/Zinc Oxide (Calmoseptine Ointment)) 3.5 gm BID TP 04/25/21 21:00 04/25/21 14:56 DC Multi-Ingred Cream/Lotion/Oil/ Oint (Hydrocerin) 1 neelima BID TP 04/25/21 21:00 04/26/21 10:24 DC 04/26/21 08:40 Multivitamins/ Calcium (Thera-M Plus) 1 tab DAILY PO 04/26/21 09:00 04/26/21 10:24 DC 04/26/21 08:34 Phenyleph/Shark Oil/Min Oil/Petrol (Preparation H) 1 neelima PRN Q12HR PRN RC RECTAL PAIN 04/25/21 15:00 04/26/21 10:24 DC Linagliptin (Tradjenta) 5 mg DAILY PO 04/26/21 09:00 05/03/21 08:54 Saliva Substitute (Biotene Moisturizing Mouth) 1 spray PRN Q1HR PRN PO DRY MOUTH 04/25/21 15:15 Duloxetine HCl (Cymbalta) 30 mg DAILY PO 04/27/21 09:00 04/27/21 07:48 DC Oxycodone/ Acetaminophen (Percocet 10/325) 1 tab PRN Q6HRS PRN PO PAIN 04/27/21 10:00 05/03/21 21:21 Duloxetine HCl (Cymbalta) 90 mg DAILY PO 04/28/21 09:00 05/03/21 08:54 Hydrocortisone (Proctosol-Hc) 1 neelima PRN BID PRN RC RECTAL PAIN 04/28/21 21:00 Aripiprazole (Abilify) 2.5 mg DAILY PO 04/29/21 09:00 04/29/21 20:16 DC 04/29/21 09:23 Aripiprazole (Abilify) 5 mg DAILY PO 04/30/21 09:00 05/03/21 08:54 Acetaminophen (Tylenol) 1,000 mg PRN Q6HRS PRN PO PAIN 05/02/21 11:00 05/02/21 20:08 Al Hydroxide/Mg Hydroxide (Mylanta Plus Xs) 30 ml PRN AFTMEALHC PRN PO DYSPEPSIA 05/03/21 10:45 05/03/21 10:52 Current Medications Medications (Trade) Dose Ordered Sig/Nicky Route PRN Reason Start Time Stop Time Status Last Admin Dose Admin Al Hydroxide/Mg Hydroxide (Mylanta Plus Xs) 30 ml PRN AFTMEALHC PRN PO DYSPEPSIA 05/03/21 10:45 05/03/21 10:52 I have reviewed the current psychotropics carefully including drug interactions. Risk benefit ratio favors no change other than as noted in my dictated progress note. Diagnosis: Problems: (1) Impulse control disorder, unspecified (2) Anxiety disorder, unspecified (3) Major depressive disorder, recurrent, severe with psychotic features (4) Personality disorder, unspecified (5) Morbid obesity (6) Chronic pain ESE LEVI MD May 03, 2021 22:06
[2021-05-03] MEDS: INSULIN GLARGINE SYRINGE. SQ SCH (22:29)
--- NOTE | 2021-05-04 02:42 | NUR ---
Nursing Note The patient was located in his room for his assessment and medication pass. The patient took his medication whole. The patient requested PRN Pain medication @[facility]. The patient was alert to name, date and location. The patient is currently sleeping in his room.
[2021-05-04 05:46] VITALS: BP 122/87
[2021-05-04] MEDS: ACETAMINOPHEN 500 MG TABLET PO PRN (06:30)
[2021-05-04] MEDS: ARIPiprazole 5 MG TABLET PO SCH (08:01)
[2021-05-04] MEDS: ASPIRIN CHEWABLE 81 MG TABLET. PO SCH (08:01)
[2021-05-04] MEDS: POTASSIUM CHLORIDE 10 MEQ TABLET.ER. PO SCH (08:02)
[2021-05-04] MEDS: LINAGLIPTIN 5 MG TABLET PO SCH (08:02)
[2021-05-04] MEDS: CARVEDILOL 12.5 MG TABLET PO SCH ×2 (08:02→20:32)
[2021-05-04] MEDS: LIDOCAINE (700MG/PATCH) PATCH. TP SCH (08:03)
[2021-05-04] MEDS: CLOPIDOGREL BISULFATE 75 MG TABLET PO SCH (08:03)
[2021-05-04] MEDS: DULoxetine HCL 30 MG CAPSULE.DR PO SCH (08:03)
[2021-05-04] MEDS: INSULIN LISPRO 300 UNITS/3 ML VIAL. SQ SCH ×3 (08:08→16:53)
--- NOTE | 2021-05-04 08:57 | PDOC ---
Exam Note: Josef Note: This note is a late entry for 05/01/2021 covers elements not covered in my initial note. Subjective: The patient was seen individually in the evening of 05/01/2021 with Bj MODI, discussed and reviewed the chart. The patient slept 5-1/2 hours previous night. He has been more polite, somewhat attention seeking, anxious, always wanting to be back in bed. Review of Systems: Ambulation impaired in wheelchair. No CV, , pulmonary system symptoms on review. Mental Status Exam: The patient is reasonably oriented. Speech coherent has some latency. Abstraction fair. Computation impaired. Language function intact. Mood and affect somewhat depression, anxious. Laboratory Data: Reviewed. Impression: Major depressive disorder, recurrent. Anxiety disorder, unspecified. Personality disorder unspecified. Plan: Continue psychotropics Cymbalta 90 mg a day, Abilify 5 mg a day to augment the Cymbalta, trazodone for insomnia. Adjust further as clinically indicated. Assessment: Vital Signs/I&O: Vital Signs Date Time Temp Pulse Resp B/P (MAP) Pulse Ox O2 Delivery O2 Flow Rate FiO2 05/04/21 08:02 90 122/87 05/04/21 05:46 97.6 18 97 05/02/21 06:14 2.0 I & O 05/03/21 05/03/21 05/04/21 15:00 23:00 07:00 Intake Total 720 ml 360 ml Balance 720 ml 360 ml Labs: Laboratory Tests Test 05/03/21 11:26 05/03/21 16:30 05/03/21 19:16 05/04/21 07:34 Glucose (Fingerstick) 180 mg/dL (70-99) H 100 mg/dL (70-99) H 192 mg/dL (70-99) H 148 mg/dL (70-99) H Current Medications: Meds: Laboratory Tests Test 05/03/21 11:26 05/03/21 16:30 05/03/21 19:16 05/04/21 07:34 Glucose (Fingerstick) 180 mg/dL 100 mg/dL 192 mg/dL 148 mg/dL Current Medications Medications (Trade) Dose Ordered Sig/Nicky Route PRN Reason Start Time Stop Time Status Last Admin Dose Admin Acetaminophen (Tylenol) 650 mg PRN Q6HRS PRN PO MILD PAIN / TEMP > 100.3'F 04/25/21 12:15 04/25/21 14:18 DC Multi-Ingredient Ointment (Analgesic [place]) 1 neelima PRN QID PRN TP MUSCLE PAIN 04/25/21 12:15 05/01/21 16:28 Al Hydroxide/Mg Hydroxide (Mylanta Plus Xs) 15 ml PRN AFTMEALHC PRN PO DYSPEPSIA 04/25/21 12:15 04/26/21 10:24 DC Magnesium Hydroxide (Milk Of Magnesia) 2,400 mg PRN QHS PRN PO 2nd choice CONSTIPATION 04/25/21 12:15 04/26/21 10:24 DC Acetaminophen (Tylenol) 1,000 mg TID PO 04/25/21 14:00 04/26/21 10:24 DC 04/26/21 08:36 Aspirin (Aspirin Chewable) 81 mg DAILY PO 04/26/21 09:00 05/04/21 08:01 Bisacodyl (Dulcolax Tab) 10 mg PRN BID PRN PO 3rd choice CONSTIPATION 04/25/21 13:45 04/26/21 10:24 DC Bisacodyl (Dulcolax Supp) 10 mg PRN DAILY PRN RC 4th choice CONSTIPATION 04/25/21 13:45 04/26/21 10:24 DC Clopidogrel Bisulfate (Plavix) 75 mg DAILY PO 04/26/21 09:00 05/04/21 08:03 Duloxetine HCl (Cymbalta) 60 mg DAILY PO 04/26/21 09:00 04/27/21 20:03 DC 04/27/21 09:21 Guaifenesin (Robitussin) 200 mg PRN Q4HRS PRN PO COUGH 04/25/21 13:45 04/26/21 10:24 DC Hydralazine HCl (Apresoline) 25 mg TID PO 04/25/21 14:00 04/26/21 10:24 DC 04/26/21 08:34 Hydrocortisone (Proctosol-Hc) 1 neelima BID RC 04/25/21 21:00 04/28/21 11:07 DC 04/27/21 09:00 Lidocaine (Lidoderm) 1 patch DAILY TP 04/25/21 18:00 05/04/21 08:03 Metolazone (Zaroxolyn) 2.5 mg QODAY PO 04/26/21 09:00 04/26/21 10:24 DC 04/26/21 08:34 Nystatin (Nystop) 1 neelima BID TP 04/25/21 21:00 04/26/21 10:24 DC 04/26/21 08:43 Polyethylene Glycol (miraLAX) 17 gm PRN DAILY PRN PO 1st choice CONSTIPATION 04/25/21 13:45 Potassium Chloride (Klor-Con) 30 meq DAILY PO 04/26/21 09:00 05/04/21 08:02 Sennosides (Senna) 8.6 mg PRN QHS PRN PO constipation 04/25/21 13:45 04/26/21 10:24 DC Simethicone (Gas-X) 80 mg PRN BID PRN PO gas 04/25/21 13:45 04/26/21 10:24 DC Spironolactone (Aldactone) 25 mg DAILY PO 04/26/21 09:00 04/26/21 10:24 DC 04/26/21 08:34 Tramadol HCl (Ultram) 100 mg PRN Q4HRS PRN PO PAIN 04/25/21 13:45 04/27/21 10:01 DC 04/27/21 06:06 Trazodone HCl (Desyrel) 200 mg HS PO 04/25/21 21:00 05/03/21 20:13 Non-Formulary Medication (Arginine/ Glutamine/Calcium Hmb (Stephen Packet)) 1 each BID PO 04/25/21 21:00 04/25/21 15:06 DC Atorvastatin Calcium (Lipitor) 80 mg QHS PO 04/25/21 21:00 05/03/21 20:13 Bumetanide (Bumex) 2 mg DAILY PO 04/26/21 09:00 04/30/21 10:39 DC 04/30/21 08:57 Al Hydroxide/Mg Hydroxide (Mylanta Plus Xs) 30 ml PRN Q12HR PRN PO DYSPEPSIA 04/25/21 14:45 04/26/21 10:24 DC 04/26/21 01:37 Carvedilol (Coreg) 37.5 mg BID PO 04/25/21 21:00 05/04/21 08:02 Cyclobenzaprine HCl (Flexeril) 5 mg PRN BID PRN PO MUSCLE SPASMS 04/25/21 14:45 04/26/21 10:24 DC Insulin Human Lispro (HumaLOG) 8 units TIDBFRMEAL SQ 04/25/21 16:30 05/04/21 08:08 Insulin Glargine (Lantus Syringe) 48 unit QHS SQ 04/25/21 21:00 05/03/21 22:29 Loperamide HCl (Imodium) 2 mg PRN Q1HR PRN PO severe DIARRHEA 04/25/21 15:00 04/26/21 10:24 DC Loperamide HCl (Imodium) 2 mg PRN Q6HRS PRN PO MILD-MOD DIARRHEA 04/25/21 15:15 04/26/21 10:24 DC Melatonin (Melatonin) 9 mg QHS PO 04/25/21 21:00 04/26/21 10:24 DC 04/25/21 21:29 Non-Formulary Medication (Menthol/Zinc Oxide (Calmoseptine Ointment)) 3.5 gm BID TP 04/25/21 21:00 04/25/21 14:56 DC Multi-Ingred Cream/Lotion/Oil/ Oint (Hydrocerin) 1 neelima BID TP 04/25/21 21:00 04/26/21 10:24 DC 04/26/21 08:40 Multivitamins/ Calcium (Thera-M Plus) 1 tab DAILY PO 04/26/21 09:00 04/26/21 10:24 DC 04/26/21 08:34 Phenyleph/Shark Oil/Min Oil/Petrol (Preparation H) 1 neelima PRN Q12HR PRN RC RECTAL PAIN 04/25/21 15:00 04/26/21 10:24 DC Linagliptin (Tradjenta) 5 mg DAILY PO 04/26/21 09:00 05/04/21 08:02 Saliva Substitute (Biotene Moisturizing Mouth) 1 spray PRN Q1HR PRN PO DRY MOUTH 04/25/21 15:15 Duloxetine HCl (Cymbalta) 30 mg DAILY PO 04/27/21 09:00 04/27/21 07:48 DC Oxycodone/ Acetaminophen (Percocet 10/325) 1 tab PRN Q6HRS PRN PO PAIN 04/27/21 10:00 05/03/21 21:21 Duloxetine HCl (Cymbalta) 90 mg DAILY PO 04/28/21 09:00 05/04/21 08:03 Hydrocortisone (Proctosol-Hc) 1 neelima PRN BID PRN RC RECTAL PAIN 04/28/21 21:00 Aripiprazole (Abilify) 2.5 mg DAILY PO 04/29/21 09:00 04/29/21 20:16 DC 04/29/21 09:23 Aripiprazole (Abilify) 5 mg DAILY PO 04/30/21 09:00 05/04/21 08:01 Acetaminophen (Tylenol) 1,000 mg PRN Q6HRS PRN PO PAIN 05/02/21 11:00 05/04/21 06:30 Al Hydroxide/Mg Hydroxide (Mylanta Plus Xs) 30 ml PRN AFTMEALHC PRN PO DYSPEPSIA 05/03/21 10:45 05/03/21 10:52 Current Medications Medications (Trade) Dose Ordered Sig/Nicky Route PRN Reason Start Time Stop Time Status Last Admin Dose Admin Al Hydroxide/Mg Hydroxide (Mylanta Plus Xs) 30 ml PRN AFTMEALHC PRN PO DYSPEPSIA 05/03/21 10:45 05/03/21 10:52 I have reviewed the current psychotropics carefully including drug interactions. Risk benefit ratio favors no change other than as noted in my dictated progress note. Diagnosis: Problems: (1) Impulse control disorder, unspecified (2) Anxiety disorder, unspecified (3) Major depressive disorder, recurrent (4) Personality disorder, unspecified ESE LEVI MD May 04, 2021 08:57
--- NOTE | 2021-05-04 09:13 | PDOC ---
Exam Note: Josef Note: This note is a late entry for 05/02/2021 covers elements not covered in my initial note. Subjective: The patient was seen individually in the evening of 05/02/2021 with Froylan MODI, discussed and reviewed the chart. The patient slept 4-1/2 hours previous night. He remains somewhat depressed, anxious, does not want to do things independently even when he can. He had many questions about his diet as I met with him in his room, wanting pureed diet instead of soft and is quite concerned that he has prostate problems. We will defer the latter to Dr. Gandhi. Review of Systems: Ambulation impaired in wheelchair. He complains of back pain and shoulder pain. No CV, GI, system symptoms on review. He has vague somatic symptoms. Mental Status Exam: The patient is reasonably oriented. Speech coherent. Abstraction fair. Computation impaired. Language function intact. Attention span short. Mood and affect somewhat anxious, labile. Laboratory Data: Reviewed. Impression: Major depressive disorder with psychotic features. Anxiety disorder, unspecified. Impulse control disorder unspecified. Plan: Continue current psychotropics, drug interactions and risk-benefit ratio. Adjust further as clinically indicated. Assessment: Vital Signs/I&O: Vital Signs Date Time Temp Pulse Resp B/P (MAP) Pulse Ox O2 Delivery O2 Flow Rate FiO2 05/04/21 08:02 90 122/87 05/04/21 05:46 97.6 18 97 05/02/21 06:14 2.0 I & O 05/03/21 05/03/21 05/04/21 15:00 23:00 07:00 Intake Total 720 ml 360 ml Balance 720 ml 360 ml Labs: Laboratory Tests Test 05/03/21 11:26 05/03/21 16:30 05/03/21 19:16 05/04/21 07:34 Glucose (Fingerstick) 180 mg/dL (70-99) H 100 mg/dL (70-99) H 192 mg/dL (70-99) H 148 mg/dL (70-99) H Current Medications: Meds: Laboratory Tests Test 05/03/21 11:26 05/03/21 16:30 05/03/21 19:16 05/04/21 07:34 Glucose (Fingerstick) 180 mg/dL 100 mg/dL 192 mg/dL 148 mg/dL Current Medications Medications (Trade) Dose Ordered Sig/Nicky Route PRN Reason Start Time Stop Time Status Last Admin Dose Admin Acetaminophen (Tylenol) 650 mg PRN Q6HRS PRN PO MILD PAIN / TEMP > 100.3'F 04/25/21 12:15 04/25/21 14:18 DC Multi-Ingredient Ointment (Analgesic [place]) 1 neelima PRN QID PRN TP MUSCLE PAIN 04/25/21 12:15 05/01/21 16:28 Al Hydroxide/Mg Hydroxide (Mylanta Plus Xs) 15 ml PRN AFTMEALHC PRN PO DYSPEPSIA 04/25/21 12:15 04/26/21 10:24 DC Magnesium Hydroxide (Milk Of Magnesia) 2,400 mg PRN QHS PRN PO 2nd choice CONSTIPATION 04/25/21 12:15 04/26/21 10:24 DC Acetaminophen (Tylenol) 1,000 mg TID PO 04/25/21 14:00 04/26/21 10:24 DC 04/26/21 08:36 Aspirin (Aspirin Chewable) 81 mg DAILY PO 04/26/21 09:00 05/04/21 08:01 Bisacodyl (Dulcolax Tab) 10 mg PRN BID PRN PO 3rd choice CONSTIPATION 04/25/21 13:45 04/26/21 10:24 DC Bisacodyl (Dulcolax Supp) 10 mg PRN DAILY PRN RC 4th choice CONSTIPATION 04/25/21 13:45 04/26/21 10:24 DC Clopidogrel Bisulfate (Plavix) 75 mg DAILY PO 04/26/21 09:00 05/04/21 08:03 Duloxetine HCl (Cymbalta) 60 mg DAILY PO 04/26/21 09:00 04/27/21 20:03 DC 04/27/21 09:21 Guaifenesin (Robitussin) 200 mg PRN Q4HRS PRN PO COUGH 04/25/21 13:45 04/26/21 10:24 DC Hydralazine HCl (Apresoline) 25 mg TID PO 04/25/21 14:00 04/26/21 10:24 DC 04/26/21 08:34 Hydrocortisone (Proctosol-Hc) 1 neelima BID RC 04/25/21 21:00 04/28/21 11:07 DC 04/27/21 09:00 Lidocaine (Lidoderm) 1 patch DAILY TP 04/25/21 18:00 05/04/21 08:03 Metolazone (Zaroxolyn) 2.5 mg QODAY PO 04/26/21 09:00 04/26/21 10:24 DC 04/26/21 08:34 Nystatin (Nystop) 1 neelima BID TP 04/25/21 21:00 04/26/21 10:24 DC 04/26/21 08:43 Polyethylene Glycol (miraLAX) 17 gm PRN DAILY PRN PO 1st choice CONSTIPATION 04/25/21 13:45 Potassium Chloride (Klor-Con) 30 meq DAILY PO 04/26/21 09:00 05/04/21 08:02 Sennosides (Senna) 8.6 mg PRN QHS PRN PO constipation 04/25/21 13:45 04/26/21 10:24 DC Simethicone (Gas-X) 80 mg PRN BID PRN PO gas 04/25/21 13:45 04/26/21 10:24 DC Spironolactone (Aldactone) 25 mg DAILY PO 04/26/21 09:00 04/26/21 10:24 DC 04/26/21 08:34 Tramadol HCl (Ultram) 100 mg PRN Q4HRS PRN PO PAIN 04/25/21 13:45 04/27/21 10:01 DC 04/27/21 06:06 Trazodone HCl (Desyrel) 200 mg HS PO 04/25/21 21:00 05/03/21 20:13 Non-Formulary Medication (Arginine/ Glutamine/Calcium Hmb (Stephen Packet)) 1 each BID PO 04/25/21 21:00 04/25/21 15:06 DC Atorvastatin Calcium (Lipitor) 80 mg QHS PO 04/25/21 21:00 05/03/21 20:13 Bumetanide (Bumex) 2 mg DAILY PO 04/26/21 09:00 04/30/21 10:39 DC 04/30/21 08:57 Al Hydroxide/Mg Hydroxide (Mylanta Plus Xs) 30 ml PRN Q12HR PRN PO DYSPEPSIA 04/25/21 14:45 04/26/21 10:24 DC 04/26/21 01:37 Carvedilol (Coreg) 37.5 mg BID PO 04/25/21 21:00 05/04/21 08:02 Cyclobenzaprine HCl (Flexeril) 5 mg PRN BID PRN PO MUSCLE SPASMS 04/25/21 14:45 04/26/21 10:24 DC Insulin Human Lispro (HumaLOG) 8 units TIDBFRMEAL SQ 04/25/21 16:30 05/04/21 08:08 Insulin Glargine (Lantus Syringe) 48 unit QHS SQ 04/25/21 21:00 05/03/21 22:29 Loperamide HCl (Imodium) 2 mg PRN Q1HR PRN PO severe DIARRHEA 04/25/21 15:00 04/26/21 10:24 DC Loperamide HCl (Imodium) 2 mg PRN Q6HRS PRN PO MILD-MOD DIARRHEA 04/25/21 15:15 04/26/21 10:24 DC Melatonin (Melatonin) 9 mg QHS PO 04/25/21 21:00 04/26/21 10:24 DC 04/25/21 21:29 Non-Formulary Medication (Menthol/Zinc Oxide (Calmoseptine Ointment)) 3.5 gm BID TP 04/25/21 21:00 04/25/21 14:56 DC Multi-Ingred Cream/Lotion/Oil/ Oint (Hydrocerin) 1 neelima BID TP 04/25/21 21:00 04/26/21 10:24 DC 04/26/21 08:40 Multivitamins/ Calcium (Thera-M Plus) 1 tab DAILY PO 04/26/21 09:00 04/26/21 10:24 DC 04/26/21 08:34 Phenyleph/Shark Oil/Min Oil/Petrol (Preparation H) 1 neelima PRN Q12HR PRN RC RECTAL PAIN 04/25/21 15:00 04/26/21 10:24 DC Linagliptin (Tradjenta) 5 mg DAILY PO 04/26/21 09:00 05/04/21 08:02 Saliva Substitute (Biotene Moisturizing Mouth) 1 spray PRN Q1HR PRN PO DRY MOUTH 04/25/21 15:15 Duloxetine HCl (Cymbalta) 30 mg DAILY PO 04/27/21 09:00 04/27/21 07:48 DC Oxycodone/ Acetaminophen (Percocet 10/325) 1 tab PRN Q6HRS PRN PO PAIN 04/27/21 10:00 05/03/21 21:21 Duloxetine HCl (Cymbalta) 90 mg DAILY PO 04/28/21 09:00 05/04/21 08:03 Hydrocortisone (Proctosol-Hc) 1 neelima PRN BID PRN RC RECTAL PAIN 04/28/21 21:00 Aripiprazole (Abilify) 2.5 mg DAILY PO 04/29/21 09:00 04/29/21 20:16 DC 04/29/21 09:23 Aripiprazole (Abilify) 5 mg DAILY PO 04/30/21 09:00 05/04/21 08:01 Acetaminophen (Tylenol) 1,000 mg PRN Q6HRS PRN PO PAIN 05/02/21 11:00 05/04/21 06:30 Al Hydroxide/Mg Hydroxide (Mylanta Plus Xs) 30 ml PRN AFTMEALHC PRN PO DYSPEPSIA 05/03/21 10:45 05/03/21 10:52 Current Medications Medications (Trade) Dose Ordered Sig/Nicky Route PRN Reason Start Time Stop Time Status Last Admin Dose Admin Al Hydroxide/Mg Hydroxide (Mylanta Plus Xs) 30 ml PRN AFTMEALHC PRN PO DYSPEPSIA 05/03/21 10:45 05/03/21 10:52 I have reviewed the current psychotropics carefully including drug interactions. Risk benefit ratio favors no change other than as noted in my dictated progress note. Diagnosis: Problems: (1) Impulse control disorder, unspecified (2) Major depressive disorder, recurrent, severe with psychotic features (3) Anxiety disorder, unspecified (4) Personality disorder, unspecified ESE LEVI MD May 04, 2021 09:13
--- NOTE | 2021-05-04 11:48 | NUR ---
NURSING NOTE PT WAS IN HIS CHAIR AT DINNING ROOM THIS AM UPON ASSESSMENT AND MEDICATION ADMINISTRATION. PT TOOK HIS MEDS WHOLE, WITH NO DIFFICULTY. PT WAS A&OX3 THIS AM. PT REPORTS LBM AT 05/03 SELF TOILETS WITH MINIMAL ASSIST. PT HAS R HEEL WOUND, DRESSING CHANGED. NOTIFIED [facility] [employer] FOR [employer] BOOT, PT STATES HE WILL WEAR THE BOOT WHILE IN THE CHAIR TO KEEP THE PRESSURE OF HIS HEEL OFF THE GROUND WHEN SITTING IN THE CHAIR. PT C/O CHRONIC PAIN IN HIS LOWER BACK, KNEES, SHOULDER, AND "ALL OVER REALLY". PT WENT ON AND ON ABOUT "OBAMA KILLED MY ", "IM GOING TO WRITE A BOOK ABOUT MY BABY WHEN I LEAVE HERE", AND ALSO QUOTED AND TEARED UP WHEN TALKING ABOUT LORIN SIDDIQUI AND STATED "PEOPLE ARE LIKE JEREZ, AND ITS BEEN A PLEASURE WALKING IN YOUR GARDEN". 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 PT HAS BEEN VERBALLY ABUSIVE TO OTHER PATIENTS, YELLING "SHUT UP" AT PATIENTS WHO ARE CONFUSED AND DEMENTED. HAS HAD TO BE MOVED SEVERAL TIMES TODAY AWAY FROM PATIENTS D/T YELLING AT THEM. RIAN KAUR.
[2021-05-04] MEDS: oxyCODONE/APAP 10/325 1 TAB TABLET PO PRN ×2 (13:02→21:35)
[2021-05-04] MEDS: POLYETHYLENE GLYCOL 3350 17 GM PACKET. PO PRN (13:02)
--- NOTE | 2021-05-04 13:03 | NUR ---
NURSING NOTE PRN PAIN MEDICATION GIVEN FOR PAIN 6/10 AND PRN MIRALAX GIVEN PER PT REQUEST. RIAN KAUR.
[2021-05-04] MEDS: MAG HYDROX/AL HYDROX/SIMETH 30 ML ORAL.SUSP PO PRN (15:26)
--- NOTE | 2021-05-04 15:27 | NUR ---
Patient reports that he has gas pains and requests PRN gas X. PRN mylanta given per order for dyspepsia. Will continue to monitor.
--- NOTE | 2021-05-04 15:33 | NUR ---
assumed care of patient at 1400, patient in the day room watching football game.
[2021-05-04 15:53] VITALS: BP 117/83
[2021-05-04] MEDS: ATORVASTATIN CALCIUM 20 MG TABLET PO SCH (20:31)
[2021-05-04] MEDS: traZODone 100 MG TABLET. PO SCH (20:32)
[2021-05-04] MEDS: INSULIN GLARGINE SYRINGE. SQ SCH (20:33)
--- NOTE | 2021-05-04 21:52 | PDOC ---
Exam Note: Josef Note: Please also refer to the separate dictated note~for this date of service dictated separately.~Patient seen individually. Discussed the patient with Nursing staff reviewed the chart.~Reviewed interim history and current functioning. Reviewed vital signs,~Labs/ Radiology~and current medications noted below. Continue current treatment with the changes noted in the dictated addendum note Assessment: Vital Signs/I&O: Vital Signs Date Time Temp Pulse Resp B/P (MAP) Pulse Ox O2 Delivery O2 Flow Rate FiO2 05/04/21 20:32 88 117/83 05/04/21 15:53 96.3 20 94 05/02/21 06:14 2.0 I & O 05/03/21 05/03/21 05/04/21 15:00 23:00 07:00 Intake Total 720 ml 360 ml Balance 720 ml 360 ml Labs: Laboratory Tests Test 05/04/21 07:34 05/04/21 11:36 05/04/21 16:45 05/04/21 19:38 Glucose (Fingerstick) 148 mg/dL (70-99) H 123 mg/dL (70-99) H 116 mg/dL (70-99) H 221 mg/dL (70-99) H Current Medications: Meds: Laboratory Tests Test 05/04/21 07:34 05/04/21 11:36 05/04/21 16:45 05/04/21 19:38 Glucose (Fingerstick) 148 mg/dL 123 mg/dL 116 mg/dL 221 mg/dL Current Medications Medications (Trade) Dose Ordered Sig/Nicky Route PRN Reason Start Time Stop Time Status Last Admin Dose Admin Acetaminophen (Tylenol) 650 mg PRN Q6HRS PRN PO MILD PAIN / TEMP > 100.3'F 04/25/21 12:15 04/25/21 14:18 DC Multi-Ingredient Ointment (Analgesic [place]) 1 neelima PRN QID PRN TP MUSCLE PAIN 04/25/21 12:15 05/01/21 16:28 Al Hydroxide/Mg Hydroxide (Mylanta Plus Xs) 15 ml PRN AFTMEALHC PRN PO DYSPEPSIA 04/25/21 12:15 04/26/21 10:24 DC Magnesium Hydroxide (Milk Of Magnesia) 2,400 mg PRN QHS PRN PO 2nd choice CONSTIPATION 04/25/21 12:15 04/26/21 10:24 DC Acetaminophen (Tylenol) 1,000 mg TID PO 04/25/21 14:00 04/26/21 10:24 DC 04/26/21 08:36 Aspirin (Aspirin Chewable) 81 mg DAILY PO 04/26/21 09:00 05/04/21 08:01 Bisacodyl (Dulcolax Tab) 10 mg PRN BID PRN PO 3rd choice CONSTIPATION 04/25/21 13:45 04/26/21 10:24 DC Bisacodyl (Dulcolax Supp) 10 mg PRN DAILY PRN RC 4th choice CONSTIPATION 04/25/21 13:45 04/26/21 10:24 DC Clopidogrel Bisulfate (Plavix) 75 mg DAILY PO 04/26/21 09:00 05/04/21 08:03 Duloxetine HCl (Cymbalta) 60 mg DAILY PO 04/26/21 09:00 04/27/21 20:03 DC 04/27/21 09:21 Guaifenesin (Robitussin) 200 mg PRN Q4HRS PRN PO COUGH 04/25/21 13:45 04/26/21 10:24 DC Hydralazine HCl (Apresoline) 25 mg TID PO 04/25/21 14:00 04/26/21 10:24 DC 04/26/21 08:34 Hydrocortisone (Proctosol-Hc) 1 neelima BID RC 04/25/21 21:00 04/28/21 11:07 DC 04/27/21 09:00 Lidocaine (Lidoderm) 1 patch DAILY TP 04/25/21 18:00 05/04/21 08:03 Metolazone (Zaroxolyn) 2.5 mg QODAY PO 04/26/21 09:00 04/26/21 10:24 DC 04/26/21 08:34 Nystatin (Nystop) 1 neelima BID TP 04/25/21 21:00 04/26/21 10:24 DC 04/26/21 08:43 Polyethylene Glycol (miraLAX) 17 gm PRN DAILY PRN PO 1st choice CONSTIPATION 04/25/21 13:45 05/04/21 13:02 Potassium Chloride (Klor-Con) 30 meq DAILY PO 04/26/21 09:00 05/04/21 08:02 Sennosides (Senna) 8.6 mg PRN QHS PRN PO constipation 04/25/21 13:45 04/26/21 10:24 DC Simethicone (Gas-X) 80 mg PRN BID PRN PO gas 04/25/21 13:45 04/26/21 10:24 DC Spironolactone (Aldactone) 25 mg DAILY PO 04/26/21 09:00 04/26/21 10:24 DC 04/26/21 08:34 Tramadol HCl (Ultram) 100 mg PRN Q4HRS PRN PO PAIN 04/25/21 13:45 04/27/21 10:01 DC 04/27/21 06:06 Trazodone HCl (Desyrel) 200 mg HS PO 04/25/21 21:00 05/04/21 20:32 Non-Formulary Medication (Arginine/ Glutamine/Calcium Hmb (Stephen Packet)) 1 each BID PO 04/25/21 21:00 04/25/21 15:06 DC Atorvastatin Calcium (Lipitor) 80 mg QHS PO 04/25/21 21:00 05/04/21 20:31 Bumetanide (Bumex) 2 mg DAILY PO 04/26/21 09:00 04/30/21 10:39 DC 04/30/21 08:57 Al Hydroxide/Mg Hydroxide (Mylanta Plus Xs) 30 ml PRN Q12HR PRN PO DYSPEPSIA 04/25/21 14:45 04/26/21 10:24 DC 04/26/21 01:37 Carvedilol (Coreg) 37.5 mg BID PO 04/25/21 21:00 05/04/21 20:32 Cyclobenzaprine HCl (Flexeril) 5 mg PRN BID PRN PO MUSCLE SPASMS 04/25/21 14:45 04/26/21 10:24 DC Insulin Human Lispro (HumaLOG) 8 units TIDBFRMEAL SQ 04/25/21 16:30 05/04/21 12:16 Insulin Glargine (Lantus Syringe) 48 unit QHS SQ 04/25/21 21:00 05/04/21 20:33 Loperamide HCl (Imodium) 2 mg PRN Q1HR PRN PO severe DIARRHEA 04/25/21 15:00 04/26/21 10:24 DC Loperamide HCl (Imodium) 2 mg PRN Q6HRS PRN PO MILD-MOD DIARRHEA 04/25/21 15:15 04/26/21 10:24 DC Melatonin (Melatonin) 9 mg QHS PO 04/25/21 21:00 04/26/21 10:24 DC 04/25/21 21:29 Non-Formulary Medication (Menthol/Zinc Oxide (Calmoseptine Ointment)) 3.5 gm BID TP 04/25/21 21:00 04/25/21 14:56 DC Multi-Ingred Cream/Lotion/Oil/ Oint (Hydrocerin) 1 neelima BID TP 04/25/21 21:00 04/26/21 10:24 DC 04/26/21 08:40 Multivitamins/ Calcium (Thera-M Plus) 1 tab DAILY PO 04/26/21 09:00 04/26/21 10:24 DC 04/26/21 08:34 Phenyleph/Shark Oil/Min Oil/Petrol (Preparation H) 1 neelima PRN Q12HR PRN RC RECTAL PAIN 04/25/21 15:00 04/26/21 10:24 DC Linagliptin (Tradjenta) 5 mg DAILY PO 04/26/21 09:00 05/04/21 08:02 Saliva Substitute (Biotene Moisturizing Mouth) 1 spray PRN Q1HR PRN PO DRY MOUTH 04/25/21 15:15 Duloxetine HCl (Cymbalta) 30 mg DAILY PO 04/27/21 09:00 04/27/21 07:48 DC Oxycodone/ Acetaminophen (Percocet 10/325) 1 tab PRN Q6HRS PRN PO MOD-SEV PAIN 04/27/21 10:00 05/04/21 13:02 Duloxetine HCl (Cymbalta) 90 mg DAILY PO 04/28/21 09:00 05/04/21 08:03 Hydrocortisone (Proctosol-Hc) 1 neelima PRN BID PRN RC RECTAL PAIN 04/28/21 21:00 Aripiprazole (Abilify) 2.5 mg DAILY PO 04/29/21 09:00 04/29/21 20:16 DC 04/29/21 09:23 Aripiprazole (Abilify) 5 mg DAILY PO 04/30/21 09:00 05/04/21 08:01 Acetaminophen (Tylenol) 1,000 mg PRN Q6HRS PRN PO MILD PAIN 1-3 05/02/21 11:00 05/04/21 06:30 Al Hydroxide/Mg Hydroxide (Mylanta Plus Xs) 30 ml PRN AFTMEALHC PRN PO DYSPEPSIA 05/03/21 10:45 05/04/21 15:26 I have reviewed the current psychotropics carefully including drug interactions. Risk benefit ratio favors no change other than as noted in my dictated progress note. Diagnosis: Problems: (1) Personality disorder, unspecified (2) Major depressive disorder, recurrent, severe with psychotic features (3) Anxiety disorder, unspecified (4) Impulse control disorder, unspecified ESE LEVI MD May 04, 2021 21:52
--- NOTE | 2021-05-04 22:00 | NUR ---
Patient called nurse to his room to look at his right buttock, stating that it was bleeding. Nurse examined area, and observed an old, dried healing scab, not bleeding at the time. Patient then stated that his heel was bleeding, nurse observed that patient was in the bed without the medi-boots on to protect his heel. Bandage did not have drainage on it when nurse examined it and no blood was observed. Provided patient with education about wearing the medi-boots to protect his heel. J[employer] assisted nurse to position patients legs and feet at comfortable angle for him. Patient then stated he was having pain and requested his PRN percocet. PRN percocet given for pain per order at 2135. Will continue to monitor.
[2021-05-05] MEDS: oxyCODONE/APAP 10/325 1 TAB TABLET PO PRN ×2 (03:40→20:17)
--- NOTE | 2021-05-05 03:41 | NUR ---
PRN oxycodone/APAP 10/325 give per patient request for pain. He states it is his heel, back, neck and coccyx. Will continue to monitor.
[2021-05-05 05:49] VITALS: BP 111/73
[2021-05-05] MEDS: INSULIN LISPRO 300 UNITS/3 ML VIAL. SQ SCH ×3 (07:30→16:30)
[2021-05-05] MEDS: CARVEDILOL 12.5 MG TABLET PO SCH ×2 (08:55→20:18)
[2021-05-05] MEDS: LIDOCAINE (700MG/PATCH) PATCH. TP SCH (08:55)
[2021-05-05] MEDS: ASPIRIN CHEWABLE 81 MG TABLET. PO SCH (08:56)
[2021-05-05] MEDS: DULoxetine HCL 30 MG CAPSULE.DR PO SCH (08:56)
[2021-05-05] MEDS: CLOPIDOGREL BISULFATE 75 MG TABLET PO SCH (08:56)
[2021-05-05] MEDS: ARIPiprazole 5 MG TABLET PO SCH (08:56)
[2021-05-05] MEDS: POTASSIUM CHLORIDE 10 MEQ TABLET.ER. PO SCH (08:56)
[2021-05-05] MEDS: LINAGLIPTIN 5 MG TABLET PO SCH (08:56)
--- NOTE | 2021-05-05 10:47 | NUR ---
pt presents with a calm mood/affect. pt is medication compliant. pt is able to make needs known to staff. pts vitals are WNL. pt continues to have a good appetite. pt is noted to spend time in the day room with peers. pt is approachable and communicative with select peers and staff. will continue to monitor.
--- NOTE | 2021-05-05 13:40 | NUR ---
WEEKLY ACTIVITY THERAPY NOTE Date of Admission:04/25/21 Date of AT Assessment: 04/28 Precipitating behaviors that initiated intake and admission:Anxious, labile mood, grandiose, depressed, stating he wants to give up, expressing self harm thoughts, hitting head with hands Goal aimed: increase socialization and self-esteem development Initial Goal: Pt will participate in at least five Activity Therapy session per week Weekly progress towards goal: did not achieve, 1/2 Group participation level: 1 full Weekly highlights: moved to group therapy side, socialized with peers and listened to peer sing Wednesday afternoon Behaviors observed: social and pleasant Plan: no change to goal Beneficial adaptations: socialization and engagement
[2021-05-05 16:04] VITALS: BP 112/80
[2021-05-05] MEDS: MAG HYDROX/AL HYDROX/SIMETH 30 ML ORAL.SUSP PO PRN (16:44)
[2021-05-05] MEDS: ATORVASTATIN CALCIUM 20 MG TABLET PO SCH (20:17)
[2021-05-05] MEDS: traZODone 100 MG TABLET. PO SCH (20:17)
--- NOTE | 2021-05-05 21:51 | PDOC ---
Exam Note: Josef Note: Please also refer to the separate dictated note~for this date of service dictated separately.~Patient seen individually. Discussed the patient with Nursing staff reviewed the chart.~Reviewed interim history and current functioning. Reviewed vital signs,~Labs/ Radiology~and current medications noted below. Continue current treatment with the changes noted in the dictated addendum note Assessment: Vital Signs/I&O: Vital Signs Date Time Temp Pulse Resp B/P (MAP) Pulse Ox O2 Delivery O2 Flow Rate FiO2 05/05/21 20:18 92 112/80 05/05/21 16:04 96.5 20 98 05/05/21 05:49 Nasal Cannula 2.0 I & O 0 05/04/21 05/04/21 05/05/21 15:00 23:00 07:00 Intake Total 740 ml 360 ml Output Total 425 ml Balance 740 ml -65 ml Labs: Laboratory Tests Test 05/05/21 07:55 05/05/21 11:56 05/05/21 16:41 05/05/21 19:13 Glucose (Fingerstick) 101 mg/dL (70-99) H 170 mg/dL (70-99) H 86 mg/dL (70-99) 146 mg/dL (70-99) H Current Medications: Meds: Laboratory Tests Test 05/05/21 07:55 05/05/21 11:56 05/05/21 16:41 05/05/21 19:13 Glucose (Fingerstick) 101 mg/dL 170 mg/dL 86 mg/dL 146 mg/dL Current Medications Medications (Trade) Dose Ordered Sig/Nicky Route PRN Reason Start Time Stop Time Status Last Admin Dose Admin Acetaminophen (Tylenol) 650 mg PRN Q6HRS PRN PO MILD PAIN / TEMP > 100.3'F 04/25/21 12:15 04/25/21 14:18 DC Multi-Ingredient Ointment (Analgesic [place]) 1 neelima PRN QID PRN TP MUSCLE PAIN 04/25/21 12:15 05/01/21 16:28 Al Hydroxide/Mg Hydroxide (Mylanta Plus Xs) 15 ml PRN AFTMEALHC PRN PO DYSPEPSIA 04/25/21 12:15 04/26/21 10:24 DC Magnesium Hydroxide (Milk Of Magnesia) 2,400 mg PRN QHS PRN PO 2nd choice CONSTIPATION 04/25/21 12:15 04/26/21 10:24 DC Acetaminophen (Tylenol) 1,000 mg TID PO 04/25/21 14:00 04/26/21 10:24 DC 04/26/21 08:36 Aspirin (Aspirin Chewable) 81 mg DAILY PO 04/26/21 09:00 05/05/21 08:56 Bisacodyl (Dulcolax Tab) 10 mg PRN BID PRN PO 3rd choice CONSTIPATION 04/25/21 13:45 04/26/21 10:24 DC Bisacodyl (Dulcolax Supp) 10 mg PRN DAILY PRN RC 4th choice CONSTIPATION 04/25/21 13:45 04/26/21 10:24 DC Clopidogrel Bisulfate (Plavix) 75 mg DAILY PO 04/26/21 09:00 05/05/21 08:56 Duloxetine HCl (Cymbalta) 60 mg DAILY PO 04/26/21 09:00 04/27/21 20:03 DC 04/27/21 09:21 Guaifenesin (Robitussin) 200 mg PRN Q4HRS PRN PO COUGH 04/25/21 13:45 04/26/21 10:24 DC Hydralazine HCl (Apresoline) 25 mg TID PO 04/25/21 14:00 04/26/21 10:24 DC 04/26/21 08:34 Hydrocortisone (Proctosol-Hc) 1 neelima BID RC 04/25/21 21:00 04/28/21 11:07 DC 04/27/21 09:00 Lidocaine (Lidoderm) 1 patch DAILY TP 04/25/21 18:00 05/05/21 08:55 Metolazone (Zaroxolyn) 2.5 mg QODAY PO 04/26/21 09:00 04/26/21 10:24 DC 04/26/21 08:34 Nystatin (Nystop) 1 neelima BID TP 04/25/21 21:00 04/26/21 10:24 DC 04/26/21 08:43 Polyethylene Glycol (miraLAX) 17 gm PRN DAILY PRN PO 1st choice CONSTIPATION 04/25/21 13:45 05/04/21 13:02 Potassium Chloride (Klor-Con) 30 meq DAILY PO 04/26/21 09:00 05/05/21 08:56 Sennosides (Senna) 8.6 mg PRN QHS PRN PO constipation 04/25/21 13:45 04/26/21 10:24 DC Simethicone (Gas-X) 80 mg PRN BID PRN PO gas 04/25/21 13:45 04/26/21 10:24 DC Spironolactone (Aldactone) 25 mg DAILY PO 04/26/21 09:00 04/26/21 10:24 DC 04/26/21 08:34 Tramadol HCl (Ultram) 100 mg PRN Q4HRS PRN PO PAIN 04/25/21 13:45 04/27/21 10:01 DC 04/27/21 06:06 Trazodone HCl (Desyrel) 200 mg HS PO 04/25/21 21:00 05/05/21 20:17 Non-Formulary Medication (Arginine/ Glutamine/Calcium Hmb (Stephen Packet)) 1 each BID PO 04/25/21 21:00 04/25/21 15:06 DC Atorvastatin Calcium (Lipitor) 80 mg QHS PO 04/25/21 21:00 05/05/21 20:17 Bumetanide (Bumex) 2 mg DAILY PO 04/26/21 09:00 04/30/21 10:39 DC 04/30/21 08:57 Al Hydroxide/Mg Hydroxide (Mylanta Plus Xs) 30 ml PRN Q12HR PRN PO DYSPEPSIA 04/25/21 14:45 04/26/21 10:24 DC 04/26/21 01:37 Carvedilol (Coreg) 37.5 mg BID PO 04/25/21 21:00 05/05/21 20:18 Cyclobenzaprine HCl (Flexeril) 5 mg PRN BID PRN PO MUSCLE SPASMS 04/25/21 14:45 04/26/21 10:24 DC Insulin Human Lispro (HumaLOG) 8 units TIDBFRMEAL SQ 04/25/21 16:30 05/05/21 12:09 Insulin Glargine (Lantus Syringe) 48 unit QHS SQ 04/25/21 21:00 05/04/21 20:33 Loperamide HCl (Imodium) 2 mg PRN Q1HR PRN PO severe DIARRHEA 04/25/21 15:00 04/26/21 10:24 DC Loperamide HCl (Imodium) 2 mg PRN Q6HRS PRN PO MILD-MOD DIARRHEA 04/25/21 15:15 04/26/21 10:24 DC Melatonin (Melatonin) 9 mg QHS PO 04/25/21 21:00 04/26/21 10:24 DC 04/25/21 21:29 Non-Formulary Medication (Menthol/Zinc Oxide (Calmoseptine Ointment)) 3.5 gm BID TP 04/25/21 21:00 04/25/21 14:56 DC Multi-Ingred Cream/Lotion/Oil/ Oint (Hydrocerin) 1 neelima BID TP 04/25/21 21:00 04/26/21 10:24 DC 04/26/21 08:40 Multivitamins/ Calcium (Thera-M Plus) 1 tab DAILY PO 04/26/21 09:00 04/26/21 10:24 DC 04/26/21 08:34 Phenyleph/Shark Oil/Min Oil/Petrol (Preparation H) 1 neelima PRN Q12HR PRN RC RECTAL PAIN 04/25/21 15:00 04/26/21 10:24 DC Linagliptin (Tradjenta) 5 mg DAILY PO 04/26/21 09:00 05/05/21 08:56 Saliva Substitute (Biotene Moisturizing Mouth) 1 spray PRN Q1HR PRN PO DRY MOUTH 04/25/21 15:15 Duloxetine HCl (Cymbalta) 30 mg DAILY PO 04/27/21 09:00 04/27/21 07:48 DC Oxycodone/ Acetaminophen (Percocet 10/325) 1 tab PRN Q6HRS PRN PO MOD-SEV PAIN 04/27/21 10:00 05/05/21 20:17 Duloxetine HCl (Cymbalta) 90 mg DAILY PO 04/28/21 09:00 05/05/21 08:56 Hydrocortisone (Proctosol-Hc) 1 neelima PRN BID PRN RC RECTAL PAIN 04/28/21 21:00 Aripiprazole (Abilify) 2.5 mg DAILY PO 04/29/21 09:00 04/29/21 20:16 DC 04/29/21 09:23 Aripiprazole (Abilify) 5 mg DAILY PO 04/30/21 09:00 05/05/21 08:56 Acetaminophen (Tylenol) 1,000 mg PRN Q6HRS PRN PO MILD PAIN 1-3 05/02/21 11:00 05/04/21 06:30 Al Hydroxide/Mg Hydroxide (Mylanta Plus Xs) 30 ml PRN AFTMEALHC PRN PO DYSPEPSIA 05/03/21 10:45 05/05/21 16:44 I have reviewed the current psychotropics carefully including drug interactions. Risk benefit ratio favors no change other than as noted in my dictated progress note. Diagnosis: Problems: (1) Impulse control disorder, unspecified (2) Anxiety disorder, unspecified (3) Major depressive disorder, recurrent, severe with psychotic features (4) Personality disorder, unspecified ESE LEVI MD May 05, 2021 21:50
[2021-05-05] MEDS: INSULIN GLARGINE SYRINGE. SQ SCH (21:58)
--- NOTE | 2021-05-05 22:27 | NUR ---
Pt irritable tonight and refusing to help transfer himself to shower chair. Patient yelled at staff and also at a peer with dementia. Patient eventually stood and was transferred to the shower chair. He was cooperative in the shower. Patient reports that he cannot urinate when he is "forced" to sit in the wheelchair all day because he is "sitting on his prostate". Nurse discussed patient following up with his PCP or a urologist to have his PSA checked to evaluate his prostate health after discharge as we do not offer urology services on [facility]. Patient seemed agreeable to this idea. Patient reports 8/10 pain and requested PRN percocet for pain with HS meds. PRN perocet provided per order for pain at 2019. Patient compliant with medications taken whole accompanied by water.
[2021-05-06 05:36] VITALS: BP 121/84
[2021-05-06] MEDS: INSULIN LISPRO 300 UNITS/3 ML VIAL. SQ SCH ×3 (07:30→16:30)
[2021-05-06] MEDS: CARVEDILOL 12.5 MG TABLET PO SCH ×2 (08:23→21:06)
[2021-05-06] MEDS: ARIPiprazole 5 MG TABLET PO SCH (08:23)
[2021-05-06] MEDS: ASPIRIN CHEWABLE 81 MG TABLET. PO SCH (08:24)
[2021-05-06] MEDS: DULoxetine HCL 30 MG CAPSULE.DR PO SCH (08:28)
[2021-05-06] MEDS: POTASSIUM CHLORIDE 10 MEQ TABLET.ER. PO SCH (08:30)
[2021-05-06] MEDS: CLOPIDOGREL BISULFATE 75 MG TABLET PO SCH (08:31)
[2021-05-06] MEDS: LINAGLIPTIN 5 MG TABLET PO SCH (08:31)
[2021-05-06] MEDS: LIDOCAINE (700MG/PATCH) PATCH. TP SCH (08:34)
--- NOTE | 2021-05-06 09:17 | PDOC ---
Exam Note: Josef Note: This note is a late entry for 05/03/2021 covers elements not covered in my initial note. Subjective: The patient was seen individually in the evening of 05/03/2021 with Hadley MODI, discussed and reviewed the chart. The patient slept 7 hours previous night. He has had a better appetite. He is still obsessing about his prostate, wanting this checked out. We will defer to Dr. Hendrickson/Dr. Gandhi. He continues to be somewhat anxious, manipulative of staff, somewhat dramatic. Review of Systems: He complains of ongoing pain and impaired ambulation in wheelchair. No CV, , pulmonary, eye system symptoms on review. Mental Status Exam: The patient is reasonably oriented. Speech coherent. Abst raction fair. Computation impaired. He still appears somewhat depressed. Language function intact. Attention span short. Mood and affect somewhat anxious. No suicidal ideation. He talked about his marriage, loss of his suddenly from a pulmonary embolism but less tearful and depressed about this. Laboratory Data: Reviewed. Impression: Major depressive disorder with psychotic features. Anxiety disorder, unspecified. Impulse control disorder unspecified. Plan: Continue current psychotropics. Assessment: Vital Signs/I&O: Vital Signs Date Time Temp Pulse Resp B/P (MAP) Pulse Ox O2 Delivery O2 Flow Rate FiO2 05/06/21 08:23 79 121/84 05/06/21 05:36 97.4 18 96 Room Air 05/05/21 05:49 2.0 I & O 05/05/21 05/05/21 05/06/21 15:00 23:00 07:00 Intake Total 960 ml 840 ml Balance 960 ml 840 ml Labs: Laboratory Tests Test 05/05/21 11:56 05/05/21 16:41 05/05/21 19:13 05/06/21 07:45 Glucose (Fingerstick) 170 mg/dL (70-99) H 86 mg/dL (70-99) 146 mg/dL (70-99) H 101 mg/dL (70-99) H Current Medications: Meds: Laboratory Tests Test 05/05/21 11:56 05/05/21 16:41 05/05/21 19:13 05/06/21 07:45 Glucose (Fingerstick) 170 mg/dL 86 mg/dL 146 mg/dL 101 mg/dL Current Medications Medications (Trade) Dose Ordered Sig/Nicky Route PRN Reason Start Time Stop Time Status Last Admin Dose Admin Acetaminophen (Tylenol) 650 mg PRN Q6HRS PRN PO MILD PAIN / TEMP > 100.3'F 04/25/21 12:15 04/25/21 14:18 DC Multi-Ingredient Ointment (Analgesic [place]) 1 neelima PRN QID PRN TP MUSCLE PAIN 04/25/21 12:15 05/01/21 16:28 Al Hydroxide/Mg Hydroxide (Mylanta Plus Xs) 15 ml PRN AFTMEALHC PRN PO DYSPEPSIA 04/25/21 12:15 04/26/21 10:24 DC Magnesium Hydroxide (Milk Of Magnesia) 2,400 mg PRN QHS PRN PO 2nd choice CONSTIPATION 04/25/21 12:15 04/26/21 10:24 DC Acetaminophen (Tylenol) 1,000 mg TID PO 04/25/21 14:00 04/26/21 10:24 DC 04/26/21 08:36 Aspirin (Aspirin Chewable) 81 mg DAILY PO 04/26/21 09:00 05/06/21 08:24 Bisacodyl (Dulcolax Tab) 10 mg PRN BID PRN PO 3rd choice CONSTIPATION 04/25/21 13:45 04/26/21 10:24 DC Bisacodyl (Dulcolax Supp) 10 mg PRN DAILY PRN RC 4th choice CONSTIPATION 04/25/21 13:45 04/26/21 10:24 DC Clopidogrel Bisulfate (Plavix) 75 mg DAILY PO 04/26/21 09:00 05/06/21 08:31 Duloxetine HCl (Cymbalta) 60 mg DAILY PO 04/26/21 09:00 04/27/21 20:03 DC 04/27/21 09:21 Guaifenesin (Robitussin) 200 mg PRN Q4HRS PRN PO COUGH 04/25/21 13:45 04/26/21 10:24 DC Hydralazine HCl (Apresoline) 25 mg TID PO 04/25/21 14:00 04/26/21 10:24 DC 04/26/21 08:34 Hydrocortisone (Proctosol-Hc) 1 neelima BID RC 04/25/21 21:00 04/28/21 11:07 DC 04/27/21 09:00 Lidocaine (Lidoderm) 1 patch DAILY TP 04/25/21 18:00 05/06/21 08:34 Metolazone (Zaroxolyn) 2.5 mg QODAY PO 04/26/21 09:00 04/26/21 10:24 DC 04/26/21 08:34 Nystatin (Nystop) 1 neelima BID TP 04/25/21 21:00 04/26/21 10:24 DC 04/26/21 08:43 Polyethylene Glycol (miraLAX) 17 gm PRN DAILY PRN PO 1st choice CONSTIPATION 04/25/21 13:45 05/04/21 13:02 Potassium Chloride (Klor-Con) 30 meq DAILY PO 04/26/21 09:00 05/06/21 08:30 Sennosides (Senna) 8.6 mg PRN QHS PRN PO constipation 04/25/21 13:45 04/26/21 10:24 DC Simethicone (Gas-X) 80 mg PRN BID PRN PO gas 04/25/21 13:45 04/26/21 10:24 DC Spironolactone (Aldactone) 25 mg DAILY PO 04/26/21 09:00 04/26/21 10:24 DC 04/26/21 08:34 Tramadol HCl (Ultram) 100 mg PRN Q4HRS PRN PO PAIN 04/25/21 13:45 04/27/21 10:01 DC 04/27/21 06:06 Trazodone HCl (Desyrel) 200 mg HS PO 04/25/21 21:00 05/05/21 20:17 Non-Formulary Medication (Arginine/ Glutamine/Calcium Hmb (Stephen Packet)) 1 each BID PO 04/25/21 21:00 04/25/21 15:06 DC Atorvastatin Calcium (Lipitor) 80 mg QHS PO 04/25/21 21:00 05/05/21 20:17 Bumetanide (Bumex) 2 mg DAILY PO 04/26/21 09:00 04/30/21 10:39 DC 04/30/21 08:57 Al Hydroxide/Mg Hydroxide (Mylanta Plus Xs) 30 ml PRN Q12HR PRN PO DYSPEPSIA 04/25/21 14:45 04/26/21 10:24 DC 04/26/21 01:37 Carvedilol (Coreg) 37.5 mg BID PO 04/25/21 21:00 05/06/21 08:23 Cyclobenzaprine HCl (Flexeril) 5 mg PRN BID PRN PO MUSCLE SPASMS 04/25/21 14:45 04/26/21 10:24 DC Insulin Human Lispro (HumaLOG) 8 units TIDBFRMEAL SQ 04/25/21 16:30 05/05/21 12:09 Insulin Glargine (Lantus Syringe) 48 unit QHS SQ 04/25/21 21:00 05/05/21 21:58 Loperamide HCl (Imodium) 2 mg PRN Q1HR PRN PO severe DIARRHEA 04/25/21 15:00 04/26/21 10:24 DC Loperamide HCl (Imodium) 2 mg PRN Q6HRS PRN PO MILD-MOD DIARRHEA 04/25/21 15:15 04/26/21 10:24 DC Melatonin (Melatonin) 9 mg QHS PO 04/25/21 21:00 04/26/21 10:24 DC 04/25/21 21:29 Non-Formulary Medication (Menthol/Zinc Oxide (Calmoseptine Ointment)) 3.5 gm BID TP 04/25/21 21:00 04/25/21 14:56 DC Multi-Ingred Cream/Lotion/Oil/ Oint (Hydrocerin) 1 neelima BID TP 04/25/21 21:00 04/26/21 10:24 DC 04/26/21 08:40 Multivitamins/ Calcium (Thera-M Plus) 1 tab DAILY PO 04/26/21 09:00 04/26/21 10:24 DC 04/26/21 08:34 Phenyleph/Shark Oil/Min Oil/Petrol (Preparation H) 1 neelima PRN Q12HR PRN RC RECTAL PAIN 04/25/21 15:00 04/26/21 10:24 DC Linagliptin (Tradjenta) 5 mg DAILY PO 04/26/21 09:00 05/06/21 08:31 Saliva Substitute (Biotene Moisturizing Mouth) 1 spray PRN Q1HR PRN PO DRY MOUTH 04/25/21 15:15 Duloxetine HCl (Cymbalta) 30 mg DAILY PO 04/27/21 09:00 04/27/21 07:48 DC Oxycodone/ Acetaminophen (Percocet 10) 1 tab PRN Q6HRS PRN PO MOD-SEV PAIN 04/27/21 10:00 05/05/21 20:17 Duloxetine HCl (Cymbalta) 90 mg DAILY PO 04/28/21 09:00 05/06/21 08:28 Hydrocortisone (Proctosol-Hc) 1 neelima PRN BID PRN RC RECTAL PAIN 04/28/21 21:00 Aripiprazole (Abilify) 2.5 mg DAILY PO 04/29/21 09:00 04/29/21 20:16 DC 04/29/21 09:23 Aripiprazole (Abilify) 5 mg DAILY PO 04/30/21 09:00 05/06/21 08:23 Acetaminophen (Tylenol) 1,000 mg PRN Q6HRS PRN PO MILD PAIN 1-3 05/02/21 11:00 05/04/21 06:30 Al Hydroxide/Mg Hydroxide (Mylanta Plus Xs) 30 ml PRN AFTMEALHC PRN PO DYSPEPSIA 05/03/21 10:45 05/05/21 16:44 I have reviewed the current psychotropics carefully including drug interactions. Risk benefit ratio favors no change other than as noted in my dictated progress note. Diagnosis: Problems: (1) Impulse control disorder, unspecified (2) Anxiety disorder, unspecified (3) Major depressive disorder, recurrent, severe with psychotic features (4) Personality disorder, unspecified ESE LEVI MD May 06, 2021 09:17
--- NOTE | 2021-05-06 10:03 | PDOC ---
Exam Note: Josef Note: This note is a late entry for 05/04/2021 covers elements not covered in my initial note. Subjective: The patient was seen individually in the evening of 05/04/2021 with Kaye MODI, discussed and reviewed the chart. The patient slept 7-1/2 hours previous night. Reportedly per nursing report he was talking earlier in the day of President Mary killed his . It is unclear whether he is referring to the healthcare system. 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 He did come out of the day room interacting with others. Review of Systems: Ambulation impaired in wheelchair. He still complains of pain but feels it is better. No CV, , pulmonary, eye system symptoms on review. Mental Status Exam: The patient is reasonably oriented. Speech coherent. When I questioned him how he was doing, he stated he was feeling better. This is the first time he stated this though apparently during the day there was not much consistency with this. Abstraction fair. Computation impaired. Language function intact. Attention span short. Mood and affect somewhat anxious, labile. Laboratory Data: Reviewed. Impression: Major depressive disorder with psychotic features. Anxiety disorder, unspecified. Impulse control disorder unspecified. Plan: Continue current psychotropics. Assessment: Vital Signs/I&O: Vital Signs Date Time Temp Pulse Resp B/P (MAP) Pulse Ox O2 Delivery O2 Flow Rate FiO2 05/06/21 08:23 79 121/84 05/06/21 05:36 97.4 18 96 Room Air 05/05/21 05:49 2.0 I & O 05/05/21 05/05/21 05/06/21 15:00 23:00 07:00 Intake Total 960 ml 840 ml Balance 960 ml 840 ml Labs: Laboratory Tests Test 05/05/21 11:56 05/05/21 16:41 05/05/21 19:13 05/06/21 07:45 Glucose (Fingerstick) 170 mg/dL (70-99) H 86 mg/dL (70-99) 146 mg/dL (70-99) H 101 mg/dL (70-99) H Current Medications: Meds: Laboratory Tests Test 05/05/21 11:56 05/05/21 16:41 05/05/21 19:13 05/06/21 07:45 Glucose (Fingerstick) 170 mg/dL 86 mg/dL 146 mg/dL 101 mg/dL Current Medications Medications (Trade) Dose Ordered Sig/Nicky Route PRN Reason Start Time Stop Time Status Last Admin Dose Admin Acetaminophen (Tylenol) 650 mg PRN Q6HRS PRN PO MILD PAIN / TEMP > 100.3'F 04/25/21 12:15 04/25/21 14:18 DC Multi-Ingredient Ointment (Analgesic [place]) 1 neelima PRN QID PRN TP MUSCLE PAIN 04/25/21 12:15 05/01/21 16:28 Al Hydroxide/Mg Hydroxide (Mylanta Plus Xs) 15 ml PRN AFTMEALHC PRN PO DYSPEPSIA 04/25/21 12:15 04/26/21 10:24 DC Magnesium Hydroxide (Milk Of Magnesia) 2,400 mg PRN QHS PRN PO 2nd choice CONSTIPATION 04/25/21 12:15 04/26/21 10:24 DC Acetaminophen (Tylenol) 1,000 mg TID PO 04/25/21 14:00 04/26/21 10:24 DC 04/26/21 08:36 Aspirin (Aspirin Chewable) 81 mg DAILY PO 04/26/21 09:00 05/06/21 08:24 Bisacodyl (Dulcolax Tab) 10 mg PRN BID PRN PO 3rd choice CONSTIPATION 04/25/21 13:45 04/26/21 10:24 DC Bisacodyl (Dulcolax Supp) 10 mg PRN DAILY PRN RC 4th choice CONSTIPATION 04/25/21 13:45 04/26/21 10:24 DC Clopidogrel Bisulfate (Plavix) 75 mg DAILY PO 04/26/21 09:00 05/06/21 08:31 Duloxetine HCl (Cymbalta) 60 mg DAILY PO 04/26/21 09:00 04/27/21 20:03 DC 04/27/21 09:21 Guaifenesin (Robitussin) 200 mg PRN Q4HRS PRN PO COUGH 04/25/21 13:45 04/26/21 10:24 DC Hydralazine HCl (Apresoline) 25 mg TID PO 04/25/21 14:00 04/26/21 10:24 DC 04/26/21 08:34 Hydrocortisone (Proctosol-Hc) 1 neelima BID RC 04/25/21 21:00 04/28/21 11:07 DC 04/27/21 09:00 Lidocaine (Lidoderm) 1 patch DAILY TP 04/25/21 18:00 05/06/21 08:34 Metolazone (Zaroxolyn) 2.5 mg QODAY PO 04/26/21 09:00 04/26/21 10:24 DC 04/26/21 08:34 Nystatin (Nystop) 1 neelima BID TP 04/25/21 21:00 04/26/21 10:24 DC 04/26/21 08:43 Polyethylene Glycol (miraLAX) 17 gm PRN DAILY PRN PO 1st choice CONSTIPATION 04/25/21 13:45 05/04/21 13:02 Potassium Chloride (Klor-Con) 30 meq DAILY PO 04/26/21 09:00 05/06/21 08:30 Sennosides (Senna) 8.6 mg PRN QHS PRN PO constipation 04/25/21 13:45 04/26/21 10:24 DC Simethicone (Gas-X) 80 mg PRN BID PRN PO gas 04/25/21 13:45 04/26/21 10:24 DC Spironolactone (Aldactone) 25 mg DAILY PO 04/26/21 09:00 04/26/21 10:24 DC 04/26/21 08:34 Tramadol HCl (Ultram) 100 mg PRN Q4HRS PRN PO PAIN 04/25/21 13:45 04/27/21 10:01 DC 04/27/21 06:06 Trazodone HCl (Desyrel) 200 mg HS PO 04/25/21 21:00 05/05/21 20:17 Non-Formulary Medication (Arginine/ Glutamine/Calcium Hmb (Stephen Packet)) 1 each BID PO 04/25/21 21:00 04/25/21 15:06 DC Atorvastatin Calcium (Lipitor) 80 mg QHS PO 04/25/21 21:00 05/05/21 20:17 Bumetanide (Bumex) 2 mg DAILY PO 04/26/21 09:00 04/30/21 10:39 DC 04/30/21 08:57 Al Hydroxide/Mg Hydroxide (Mylanta Plus Xs) 30 ml PRN Q12HR PRN PO DYSPEPSIA 04/25/21 14:45 04/26/21 10:24 DC 04/26/21 01:37 Carvedilol (Coreg) 37.5 mg BID PO 04/25/21 21:00 05/06/21 08:23 Cyclobenzaprine HCl (Flexeril) 5 mg PRN BID PRN PO MUSCLE SPASMS 04/25/21 14:45 04/26/21 10:24 DC Insulin Human Lispro (HumaLOG) 8 units TIDBFRMEAL SQ 04/25/21 16:30 05/05/21 12:09 Insulin Glargine (Lantus Syringe) 48 unit QHS SQ 04/25/21 21:00 05/05/21 21:58 Loperamide HCl (Imodium) 2 mg PRN Q1HR PRN PO severe DIARRHEA 04/25/21 15:00 04/26/21 10:24 DC Loperamide HCl (Imodium) 2 mg PRN Q6HRS PRN PO MILD-MOD DIARRHEA 04/25/21 15:15 04/26/21 10:24 DC Melatonin (Melatonin) 9 mg QHS PO 04/25/21 21:00 04/26/21 10:24 DC 04/25/21 21:29 Non-Formulary Medication (Menthol/Zinc Oxide (Calmoseptine Ointment)) 3.5 gm BID TP 04/25/21 21:00 04/25/21 14:56 DC Multi-Ingred Cream/Lotion/Oil/ Oint (Hydrocerin) 1 neelima BID TP 04/25/21 21:00 04/26/21 10:24 DC 04/26/21 08:40 Multivitamins/ Calcium (Thera-M Plus) 1 tab DAILY PO 04/26/21 09:00 04/26/21 10:24 DC 04/26/21 08:34 Phenyleph/Shark Oil/Min Oil/Petrol (Preparation H) 1 neelima PRN Q12HR PRN RC RECTAL PAIN 04/25/21 15:00 04/26/21 10:24 DC Linagliptin (Tradjenta) 5 mg DAILY PO 04/26/21 09:00 05/06/21 08:31 Saliva Substitute (Biotene Moisturizing Mouth) 1 spray PRN Q1HR PRN PO DRY MOUTH 04/25/21 15:15 Duloxetine HCl (Cymbalta) 30 mg DAILY PO 04/27/21 09:00 04/27/21 07:48 DC Oxycodone/ Acetaminophen (Percocet 10) 1 tab PRN Q6HRS PRN PO MOD-SEV PAIN 04/27/21 10:00 05/05/21 20:17 Duloxetine HCl (Cymbalta) 90 mg DAILY PO 04/28/21 09:00 05/06/21 08:28 Hydrocortisone (Proctosol-Hc) 1 neelima PRN BID PRN RC RECTAL PAIN 04/28/21 21:00 Aripiprazole (Abilify) 2.5 mg DAILY PO 04/29/21 09:00 04/29/21 20:16 DC 04/29/21 09:23 Aripiprazole (Abilify) 5 mg DAILY PO 04/30/21 09:00 05/06/21 08:23 Acetaminophen (Tylenol) 1,000 mg PRN Q6HRS PRN PO MILD PAIN 1-3 05/02/21 11:00 05/04/21 06:30 Al Hydroxide/Mg Hydroxide (Mylanta Plus Xs) 30 ml PRN AFTMEALHC PRN PO DYSPEPSIA 05/03/21 10:45 05/05/21 16:44 I have reviewed the current psychotropics carefully including drug interactions. Risk benefit ratio favors no change other than as noted in my dictated progress note. Diagnosis: Problems: (1) Major depressive disorder, recurrent, severe with psychotic features (2) Anxiety disorder, unspecified (3) Impulse control disorder, unspecified (4) Personality disorder, unspecified ESE LEVI MD May 06, 2021 10:03
[2021-05-06] MEDS: MAG HYDROX/AL HYDROX/SIMETH 30 ML ORAL.SUSP PO PRN (12:17)
[2021-05-06] MEDS: oxyCODONE/APAP 10/325 1 TAB TABLET PO PRN ×2 (12:47→21:07)
[2021-05-06 15:28] VITALS: BP 118/72
--- NOTE | 2021-05-06 16:10 | NUR ---
Nursing Note Pt. has been pleasant today no behaviors observed. Pt. took all medications and treatment as per the pt.'s care plan. The pt. was receptive to teachings in regards to medication and pain management. Patient requested to have lidocaine patch q day on (R) shoulder due to old "football" injury. Put request on Doctor's "to do" list.
--- NOTE | 2021-05-06 16:21 | NUR ---
Wound/Ostomy Care Wound Type/Assessment: Right heel DFU with red gran and slough, improving in size Treatment Recommendations/Plan: Cleanse wound, apply hydrofera blue, cover with ABD and kerlix. Change Q3 days. Heel medix boot at all times Education provided: PU prevention and WC POC, pt v/u of teaching Offloading surface/device: hel medix boot and order WC cushion. Recommended Referrals/Tests: na Discharge Recommendations for dressings: see above
[2021-05-06] MEDS: ATORVASTATIN CALCIUM 20 MG TABLET PO SCH (21:06)
[2021-05-06] MEDS: traZODone 100 MG TABLET. PO SCH (21:07)
[2021-05-06] MEDS: INSULIN GLARGINE SYRINGE. SQ SCH (21:24)
--- NOTE | 2021-05-06 21:51 | PDOC ---
Exam Note: Josef Note: Please also refer to the separate dictated note~for this date of service dictated separately.~Patient seen individually. Discussed the patient with Nursing staff reviewed the chart.~Reviewed interim history and current functioning. Reviewed vital signs,~Labs/ Radiology~and current medications noted below. Continue current treatment with the changes noted in the dictated addendum note Assessment: Vital Signs/I&O: Vital Signs Date Time Temp Pulse Resp B/P (MAP) Pulse Ox O2 Delivery O2 Flow Rate FiO2 05/06/21 21:06 76 118/72 05/06/21 15:28 98.0 18 96 Room Air 05/05/21 05:49 2.0 I & O 05/05/21 05/05/21 05/06/21 15:00 23:00 07:00 Intake Total 960 ml 840 ml Balance 960 ml 840 ml Labs: Laboratory Tests Test 05/06/21 07:45 05/06/21 11:36 05/06/21 17:00 05/06/21 19:15 Glucose (Fingerstick) 101 mg/dL (70-99) H 156 mg/dL (70-99) H 142 mg/dL (70-99) H 153 mg/dL (70-99) H Current Medications: Meds: Laboratory Tests Test 05/06/21 07:45 05/06/21 11:36 05/06/21 17:00 05/06/21 19:15 Glucose (Fingerstick) 101 mg/dL 156 mg/dL 142 mg/dL 153 mg/dL Current Medications Medications (Trade) Dose Ordered Sig/Nicky Route PRN Reason Start Time Stop Time Status Last Admin Dose Admin Acetaminophen (Tylenol) 650 mg PRN Q6HRS PRN PO MILD PAIN / TEMP > 100.3'F 04/25/21 12:15 04/25/21 14:18 DC Multi-Ingredient Ointment (Analgesic [place]) 1 neelima PRN QID PRN TP MUSCLE PAIN 04/25/21 12:15 05/01/21 16:28 Al Hydroxide/Mg Hydroxide (Mylanta Plus Xs) 15 ml PRN AFTMEALHC PRN PO DYSPEPSIA 04/25/21 12:15 04/26/21 10:24 DC Magnesium Hydroxide (Milk Of Magnesia) 2,400 mg PRN QHS PRN PO 2nd choice CONSTIPATION 04/25/21 12:15 04/26/21 10:24 DC Acetaminophen (Tylenol) 1,000 mg TID PO 04/25/21 14:00 04/26/21 10:24 DC 04/26/21 08:36 Aspirin (Aspirin Chewable) 81 mg DAILY PO 04/26/21 09:00 05/06/21 08:24 Bisacodyl (Dulcolax Tab) 10 mg PRN BID PRN PO 3rd choice CONSTIPATION 04/25/21 13:45 04/26/21 10:24 DC Bisacodyl (Dulcolax Supp) 10 mg PRN DAILY PRN RC 4th choice CONSTIPATION 04/25/21 13:45 04/26/21 10:24 DC Clopidogrel Bisulfate (Plavix) 75 mg DAILY PO 04/26/21 09:00 05/06/21 08:31 Duloxetine HCl (Cymbalta) 60 mg DAILY PO 04/26/21 09:00 04/27/21 20:03 DC 04/27/21 09:21 Guaifenesin (Robitussin) 200 mg PRN Q4HRS PRN PO COUGH 04/25/21 13:45 04/26/21 10:24 DC Hydralazine HCl (Apresoline) 25 mg TID PO 04/25/21 14:00 04/26/21 10:24 DC 04/26/21 08:34 Hydrocortisone (Proctosol-Hc) 1 neelima BID RC 04/25/21 21:00 04/28/21 11:07 DC 04/27/21 09:00 Lidocaine (Lidoderm) 1 patch DAILY TP 04/25/21 18:00 05/06/21 08:34 Metolazone (Zaroxolyn) 2.5 mg QODAY PO 04/26/21 09:00 04/26/21 10:24 DC 04/26/21 08:34 Nystatin (Nystop) 1 neelima BID TP 04/25/21 21:00 04/26/21 10:24 DC 04/26/21 08:43 Polyethylene Glycol (miraLAX) 17 gm PRN DAILY PRN PO 1st choice CONSTIPATION 04/25/21 13:45 05/04/21 13:02 Potassium Chloride (Klor-Con) 30 meq DAILY PO 04/26/21 09:00 05/06/21 08:30 Sennosides (Senna) 8.6 mg PRN QHS PRN PO constipation 04/25/21 13:45 04/26/21 10:24 DC Simethicone (Gas-X) 80 mg PRN BID PRN PO gas 04/25/21 13:45 04/26/21 10:24 DC Spironolactone (Aldactone) 25 mg DAILY PO 04/26/21 09:00 04/26/21 10:24 DC 04/26/21 08:34 Tramadol HCl (Ultram) 100 mg PRN Q4HRS PRN PO PAIN 04/25/21 13:45 04/27/21 10:01 DC 04/27/21 06:06 Trazodone HCl (Desyrel) 200 mg HS PO 04/25/21 21:00 05/06/21 21:07 Non-Formulary Medication (Arginine/ Glutamine/Calcium Hmb (Stephen Packet)) 1 each BID PO 04/25/21 21:00 04/25/21 15:06 DC Atorvastatin Calcium (Lipitor) 80 mg QHS PO 04/25/21 21:00 05/06/21 21:06 Bumetanide (Bumex) 2 mg DAILY PO 04/26/21 09:00 04/30/21 10:39 DC 04/30/21 08:57 Al Hydroxide/Mg Hydroxide (Mylanta Plus Xs) 30 ml PRN Q12HR PRN PO DYSPEPSIA 04/25/21 14:45 04/26/21 10:24 DC 04/26/21 01:37 Carvedilol (Coreg) 37.5 mg BID PO 04/25/21 21:00 05/06/21 21:06 Cyclobenzaprine HCl (Flexeril) 5 mg PRN BID PRN PO MUSCLE SPASMS 04/25/21 14:45 04/26/21 10:24 DC Insulin Human Lispro (HumaLOG) 8 units TIDBFRMEAL SQ 04/25/21 16:30 05/05/21 12:09 Insulin Glargine (Lantus Syringe) 48 unit QHS SQ 04/25/21 21:00 05/06/21 21:24 Loperamide HCl (Imodium) 2 mg PRN Q1HR PRN PO severe DIARRHEA 04/25/21 15:00 04/26/21 10:24 DC Loperamide HCl (Imodium) 2 mg PRN Q6HRS PRN PO MILD-MOD DIARRHEA 04/25/21 15:15 04/26/21 10:24 DC Melatonin (Melatonin) 9 mg QHS PO 04/25/21 21:00 04/26/21 10:24 DC 04/25/21 21:29 Non-Formulary Medication (Menthol/Zinc Oxide (Calmoseptine Ointment)) 3.5 gm BID TP 04/25/21 21:00 04/25/21 14:56 DC Multi-Ingred Cream/Lotion/Oil/ Oint (Hydrocerin) 1 neelima BID TP 04/25/21 21:00 04/26/21 10:24 DC 04/26/21 08:40 Multivitamins/ Calcium (Thera-M Plus) 1 tab DAILY PO 04/26/21 09:00 04/26/21 10:24 DC 04/26/21 08:34 Phenyleph/Shark Oil/Min Oil/Petrol (Preparation H) 1 neelima PRN Q12HR PRN RC RECTAL PAIN 04/25/21 15:00 04/26/21 10:24 DC Linagliptin (Tradjenta) 5 mg DAILY PO 04/26/21 09:00 05/06/21 08:31 Saliva Substitute (Biotene Moisturizing Mouth) 1 spray PRN Q1HR PRN PO DRY MOUTH 04/25/21 15:15 Duloxetine HCl (Cymbalta) 30 mg DAILY PO 04/27/21 09:00 04/27/21 07:48 DC Oxycodone/ Acetaminophen (Percocet 10/325) 1 tab PRN Q6HRS PRN PO MOD-SEV PAIN 04/27/21 10:00 05/06/21 21:07 Duloxetine HCl (Cymbalta) 90 mg DAILY PO 04/28/21 09:00 05/06/21 08:28 Hydrocortisone (Proctosol-Hc) 1 neelima PRN BID PRN RC RECTAL PAIN 04/28/21 21:00 Aripiprazole (Abilify) 2.5 mg DAILY PO 04/29/21 09:00 04/29/21 20:16 DC 04/29/21 09:23 Aripiprazole (Abilify) 5 mg DAILY PO 04/30/21 09:00 05/06/21 08:23 Acetaminophen (Tylenol) 1,000 mg PRN Q6HRS PRN PO MILD PAIN 1-3 05/02/21 11:00 05/04/21 06:30 Al Hydroxide/Mg Hydroxide (Mylanta Plus Xs) 30 ml PRN AFTMEALHC PRN PO DYSPEPSIA 05/03/21 10:45 05/06/21 12:17 I have reviewed the current psychotropics carefully including drug interactions. Risk benefit ratio favors no change other than as noted in my dictated progress note. Diagnosis: Problems: (1) Impulse control disorder, unspecified (2) Anxiety disorder, unspecified (3) Major depressive disorder, recurrent, severe with psychotic features (4) Personality disorder, unspecified ESE LEVI MD May 06, 2021 21:51
--- NOTE | 2021-05-07 02:00 | NUR ---
Patient was in better spirits tonight than he has been previously this week, tonight he is less somatic and more positive. Patient has been making lists on some papers in his room and doing some writing about anxiety and depression. Tonight he seemed to have a better understanding of what he can do to help himself feel better. Patient reports that he is still having pain in his right shoulder and would like a lidoderm patch prescribed for it. Will pass on in shift report and put on hospitalist list. PRN percocet given with HS meds at 2100 per order for pain. Will continue to monitor.
[2021-05-07] MEDS: oxyCODONE/APAP 10/325 1 TAB TABLET PO PRN ×3 (03:52→21:18)
--- NOTE | 2021-05-07 03:53 | NUR ---
PRN percocet given per order for pain. Patient reported pain rated 09/10 in shoulder, back, etc. Will continue to monitor.
[2021-05-07 06:23] VITALS: BP 110/73
[2021-05-07] MEDS: INSULIN LISPRO 300 UNITS/3 ML VIAL. SQ SCH ×3 (07:30→17:30)
[2021-05-07] MEDS: ASPIRIN CHEWABLE 81 MG TABLET. PO SCH (08:18)
[2021-05-07] MEDS: LINAGLIPTIN 5 MG TABLET PO SCH (08:19)
[2021-05-07] MEDS: CARVEDILOL 12.5 MG TABLET PO SCH ×2 (08:19→21:11)
[2021-05-07] MEDS: POTASSIUM CHLORIDE 10 MEQ TABLET.ER. PO SCH (08:19)
[2021-05-07] MEDS: ARIPiprazole 5 MG TABLET PO SCH (08:19)
[2021-05-07] MEDS: CLOPIDOGREL BISULFATE 75 MG TABLET PO SCH (08:20)
[2021-05-07] MEDS: DULoxetine HCL 30 MG CAPSULE.DR PO SCH (08:20)
[2021-05-07] MEDS: LIDOCAINE (700MG/PATCH) PATCH. TP SCH ×2 (08:22→16:15)
--- NOTE | 2021-05-07 10:57 | NUR ---
Pt has been a bit attention seeking today during breakfast. Joking about how "overcooked" his toast is to other patients...but then taking the toast and hitting it onto the table (and creating a huge mess of crumbs) for them to laugh. He also engaged in c/o various somatic complaints to the other patients while they were eating; primarily back pain, anxiety, shoulder pain, prostate pain, and "my underwear is pulled up too far and cutting into my gonads." He has been absent of SI/HI behaviors, absent of delusional statements/behaviors. He is compliant with whole medications. He continues to c/o 10/10 pain in the R shoulder and lower back, scheduled Lidocaine patch applied to R shoulder per his request. He spoke about wanting another PRN Percoset "when I am able to get it." Plan of care continues, will pass to next shift.
--- NOTE | 2021-05-07 12:55 | NUR ---
Pt not eating lunch. He sat at the lunch table among other patients, with his tray pushed to the side of him. He would lay his head down on the table at times...but would continuously sit among peers in an obvious sad and gloomy state. When asked by SILVESTRE what was upsetting him and why he wasn't eating he replied, "I can't eat. I keep thinking about all those starving children on the [facility]." Pt's feeling validated and provided verbal encouragement to eat. Pt then turned back to the table and attempted to consume some lunch. Addendum: 05/07/21 at 1446 by VINCENT BAILEY RN RADHA Percoset 10/325 mg PO administered for 04/20 back and R shoulder pain
[2021-05-07] MEDS: MAG HYDROX/AL HYDROX/SIMETH 30 ML ORAL.SUSP PO PRN (13:59)
[2021-05-07 15:46] VITALS: BP 126/83
[2021-05-07] MEDS: PATCH REMOVAL. MC SCH (21:00)
[2021-05-07] MEDS: ATORVASTATIN CALCIUM 20 MG TABLET PO SCH (21:11)
[2021-05-07] MEDS: traZODone 100 MG TABLET. PO SCH (21:11)
[2021-05-07] MEDS: INSULIN GLARGINE SYRINGE. SQ SCH (21:12)
--- NOTE | 2021-05-07 23:54 | NUR ---
Pt calm and cooperative this evening. Compliant with shower and whole medications. Less attention seeking. PRN Percocet administered with HS medications per pt request.
--- NOTE | 2021-05-08 00:48 | PN ---
DATE: 05/06/2021 PSYCHIATRIC PROGRESS NOTE This is a late entry of 05/06 covers the elements not covered in my initial note. SUBJECTIVE: I met with the patient on the evening of 05/06. Discussed with RIAN Restrepo. The patient slept 6-1/2 hours previous night. He still remained somewhat anxious at times, withdrawn, complains of pain being 8 on a scale of 0-10, back pain, shoulder pain. Impaired ambulation, in wheelchair. REVIEW OF SYSTEMS: No CV, , pulmonary, eye, ENT system symptoms on review. He has been started on lidocaine patch for his pain. MENTAL STATUS EXAMINATION: The patient is reasonably oriented. Speech has some latency, coherent. Abstraction fair. Computation impaired. Language function intact. Attention span short. Mood and affect remain somewhat anxious, labile. LABORATORY DATA: Reviewed. IMPRESSION: Major depressive disorder, recurrent, severe with psychotic features, in partial remission. Personality disorder, unspecified. Anxiety disorder, unspecified. PLAN: Continue current psychotropics from initial note Cymbalta, Abilify and trazodone. Make further adjustments as clinically indicated. Start lidocaine patch for pain in addition to the Percocet. PEACE DR: Reid TID: [id number]
[2021-05-08 05:37] VITALS: BP 108/70
[2021-05-08 06:33] LABS: BASO % 0 % (0-3); EOS # 0.1 x10^3/uL (0.0-0.7); EOS % 1 % (0-3); HEMATOCRIT 41.7 % (39.0-53.0); HEMOGLOBIN 13.8 g/dL (13.0-17.5); LYMPH # 0.7 x10^3/uL (1.0-4.8); LYMPH % 9 % (24-48); MEAN CORPUSCULAR HEMOGLOBIN 31 pg (25-35); MEAN CORPUSCULAR HGB CONC 33 g/dL (31-37); MEAN CORPUSCULAR VOLUME 92 fL (79-100); MONO # 0.6 x10^3/uL (0.0-1.1); MONO % 9 % (0-9); NEUT # 5.7 x10^3uL (1.8-7.7); NEUT % 81 % (31-73); PLATELET COUNT 211 x10^3/uL (140-400); RED BLOOD COUNT 4.51 x10^6/uL (4.30-5.70); RED CELL DISTRIBUTION WIDTH 13.7 % (11.5-14.5)
[2021-05-08 06:44] LABS: ALBUMIN 3.1 g/dL (3.4-5.0); ALBUMIN/GLOBULIN RATIO 0.8 (1.0-1.7); CREATININE 1.4 mg/dL (0.7-1.3); GFR 50.5; POTASSIUM 4.3 mmol/L (3.5-5.1); TOTAL BILIRUBIN 0.5 mg/dL (0.2-1.0)
--- NOTE | 2021-05-08 08:26 | PDOC ---
Exam Note: Josef Note: Late entry for 05/07/2021. Please also refer to the separate dictated note~for this date of service dictated separately.~Patient seen individually. Discussed the patient with Nursing staff reviewed the chart.~Reviewed interim history and current functioning. Reviewed vital signs,~Labs/ Radiology~and current medic ations noted below. Continue current treatment with the changes noted in the dictated addendum note Assessment: Vital Signs/I&O: Vital Signs Date Time Temp Pulse Resp B/P (MAP) Pulse Ox O2 Delivery O2 Flow Rate FiO2 05/08/21 05:37 97.5 67 18 108/70 (83) 94 05/07/21 06:23 2.0 05/06/21 15:28 Room Air I & O 05/07/21 05/07/21 05/08/21 14:59 22:59 06:59 Intake Total 840 ml 840 ml Balance 840 ml 840 ml Labs: Laboratory Tests Test 05/07/21 11:35 05/07/21 16:45 05/07/21 19:16 05/08/21 05:54 Glucose (Fingerstick) 115 mg/dL (70-99) H 157 mg/dL (70-99) H 106 mg/dL (70-99) H 47 mg/dL (70-99) L Test 05/08/21 06:03 05/08/21 06:32 05/08/21 07:41 White Blood Count 7.0 x10^3/uL (4.0-11.0) Red Blood Count 4.51 x10^6/uL (4.30-5.70) Hemoglobin 13.8 g/dL (13.0-17.5) Hematocrit 41.7 % (39.0-53.0) Mean Corpuscular Volume 92 fL (79-100) Mean Corpuscular Hemoglobin 31 pg (25-35) Mean Corpuscular Hemoglobin Concent 33 g/dL (31-37) Red Cell Distribution Width 13.7 % (11.5-14.5) Platelet Count 211 x10^3/uL (140-400) Neutrophils (%) (Auto) 81 % (31-73) H Lymphocytes (%) (Auto) 9 % (24-48) L Monocytes (%) (Auto) 9 % (0-9) Eosinophils (%) (Auto) 1 % (0-3) Basophils (%) (Auto) 0 % (0-3) Neutrophils # (Auto) 5.7 x10^3uL (1.8-7.7) Lymphocytes # (Auto) 0.7 x10^3/uL (1.0-4.8) L Monocytes # (Auto) 0.6 x10^3/uL (0.0-1.1) Eosinophils # (Auto) 0.1 x10^3/uL (0.0-0.7) Basophils # (Auto) 0.0 x10^3/uL (0.0-0.2) Sodium Level 132 mmol/L (136-145) L Potassium Level 4.3 mmol/L (3.5-5.1) Chloride Level 97 mmol/L (98-107) L Carbon Dioxide Level 32 mmol/L (21-32) Anion Gap 3 (6-14) L Blood Urea Nitrogen 24 mg/dL (8-26) Creatinine 1.4 mg/dL (0.7-1.3) H Estimated GFR (Cockcroft-Gault) 50.5 BUN/Creatinine Ratio 17 (6-20) Glucose Level 50 mg/dL (70-99) L Calcium Level 9.0 mg/dL (8.5-10.1) Total Bilirubin 0.5 mg/dL (0.2-1.0) Aspartate Amino Transferase (AST) 25 U/L (15-37) Alanine Aminotransferase (ALT) 26 U/L (16-63) Alkaline Phosphatase 73 U/L (46-116) Total Protein 7.0 g/dL (6.4-8.2) Albumin 3.1 g/dL (3.4-5.0) L Albumin/Globulin Ratio 0.8 (1.0-1.7) L Glucose (Fingerstick) 101 mg/dL (70-99) H 173 mg/dL (70-99) H Current Medications: Meds: Current Medications Medications (Trade) Dose Ordered Sig/Nicky Route PRN Reason Start Time Stop Time Status Last Admin Dose Admin Lidocaine (Lidoderm) 2 patch DAILY TP 05/07/21 16:15 05/07/21 16:15 I have reviewed the current psychotropics carefully including drug interactions. Risk benefit ratio favors no change other than as noted in my dictated progress note. Diagnosis: Problems: (1) Major depressive disorder, recurrent, severe with psychotic features (2) Anxiety disorder, unspecified (3) Impulse control disorder, unspecified ESE LEVI MD May 08, 2021 08:26
[2021-05-08] MEDS: ARIPiprazole 5 MG TABLET PO SCH (08:39)
[2021-05-08] MEDS: DULoxetine HCL 30 MG CAPSULE.DR PO SCH (08:39)
[2021-05-08] MEDS: CLOPIDOGREL BISULFATE 75 MG TABLET PO SCH (08:39)
[2021-05-08] MEDS: ASPIRIN CHEWABLE 81 MG TABLET. PO SCH (08:39)
[2021-05-08] MEDS: CARVEDILOL 12.5 MG TABLET PO SCH ×2 (08:39→21:35)
[2021-05-08] MEDS: LINAGLIPTIN 5 MG TABLET PO SCH (08:39)
--- NOTE | 2021-05-08 08:39 | PN ---
DATE: 05/05/2021 PSYCHIATRIC PROGRESS NOTE This is a late entry, date of service 05/05, covers elements not covered in my initial note. SUBJECTIVE: I met with the patient in the evening at some length and discussed with RIAN Restrepo in the evening. The patient was also discussed at lengthy treatment team meeting with the entire team in the morning and RIAN Celis ____ the nursing staff. He slept 6-1/4 hours. Appetite 60%, compliant with medications. Had his flu vaccine on 04/10. He remains fairly dramatic regarding his pain, though he is in pain, but seems to exaggerate the symptoms per nursing observation. REVIEW OF SYSTEMS: Positive for the back pain and pain all over his body, impaired ambulation. He is extremely obese. No CV, , pulmonary, eye system symptoms on review. MENTAL STATUS EXAMINATION: The patient is reasonably oriented. Speech is coherent, has some latency. Abstraction fair. Computation impaired. Language function intact. Attention span short. Mood and affect somewhat withdrawn. LABORATORY DATA: Reviewed. IMPRESSION: Major depressive disorder, rule out psychotic features; anxiety disorder, unspecified; personality disorder, unspecified. PLAN: Continue current psychotropics, Cymbalta 90 mg a day which is being augmented with Abilify 5 mg a day, trazodone 200 mg at bedtime. He is on Percocet for pain. Adjust further as clinically indicated. WINSTON/JAVON DR: Reid TID: [id number]
[2021-05-08] MEDS: POTASSIUM CHLORIDE 10 MEQ TABLET.ER. PO SCH (08:40)
[2021-05-08] MEDS: LIDOCAINE (700MG/PATCH) PATCH. TP SCH (08:41)
[2021-05-08] MEDS: INSULIN LISPRO 300 UNITS/3 ML VIAL. SQ SCH ×3 (08:44→16:30)
[2021-05-08] MEDS: oxyCODONE/APAP 10/325 1 TAB TABLET PO PRN ×2 (08:49→16:40)
--- NOTE | 2021-05-08 13:14 | NUR ---
Nursing note: Pt in dining room at time of AM med pass and assessment. He is pleasant, med compliant and cooperative. He c/o pain in his R shoulder and lower back and requested PRN. PRN administered with good effect. He is currently in the day room. Will continue to monitor.
[2021-05-08 15:25] VITALS: BP 137/88
[2021-05-08] MEDS: INSULIN GLARGINE SYRINGE. SQ SCH (21:00)
[2021-05-08] MEDS: PATCH REMOVAL. MC SCH (21:00)
--- NOTE | 2021-05-08 21:26 | PDOC ---
Exam Note: Josef Note: Please also refer to the separate dictated note~for this date of service dictated separately.~Patient seen individually. Discussed the patient with Nursing staff reviewed the chart.~Reviewed interim history and current functioning. Reviewed vital signs,~Labs/ Radiology~and current medications noted below. Continue current treatment with the changes noted in the dictated addendum note Assessment: Vital Signs/I&O: Vital Signs Date Time Temp Pulse Resp B/P (MAP) Pulse Ox O2 Delivery O2 Flow Rate FiO2 05/08/21 15:25 97.4 88 18 137/88 (104) 98 Room Air 05/07/21 06:23 2.0 I & O 05/07/21 05/07/21 05/08/21 15:00 23:00 07:00 Intake Total 840 ml 840 ml Balance 840 ml 840 ml Labs: Laboratory Tests Test 05/08/21 05:54 05/08/21 06:03 05/08/21 06:32 05/08/21 07:41 Glucose (Fingerstick) 47 mg/dL (70-99) L 101 mg/dL (70-99) H 173 mg/dL (70-99) H White Blood Count 7.0 x10^3/uL (4.0-11.0) Red Blood Count 4.51 x10^6/uL (4.30-5.70) Hemoglobin 13.8 g/dL (13.0-17.5) Hematocrit 41.7 % (39.0-53.0) Mean Corpuscular Volume 92 fL (79-100) Mean Corpuscular Hemoglobin 31 pg (25-35) Mean Corpuscular Hemoglobin Concent 33 g/dL (31-37) Red Cell Distribution Width 13.7 % (11.5-14.5) Platelet Count 211 x10^3/uL (140-400) Neutrophils (%) (Auto) 81 % (31-73) H Lymphocytes (%) (Auto) 9 % (24-48) L Monocytes (%) (Auto) 9 % (0-9) Eosinophils (%) (Auto) 1 % (0-3) Basophils (%) (Auto) 0 % (0-3) Neutrophils # (Auto) 5.7 x10^3uL (1.8-7.7) Lymphocytes # (Auto) 0.7 x10^3/uL (1.0-4.8) L Monocytes # (Auto) 0.6 x10^3/uL (0.0-1.1) Eosinophils # (Auto) 0.1 x10^3/uL (0.0-0.7) Basophils # (Auto) 0.0 x10^3/uL (0.0-0.2) Sodium Level 132 mmol/L (136-145) L Potassium Level 4.3 mmol/L (3.5-5.1) Chloride Level 97 mmol/L (98-107) L Carbon Dioxide Level 32 mmol/L (21-32) Anion Gap 3 (6-14) L Blood Urea Nitrogen 24 mg/dL (8-26) Creatinine 1.4 mg/dL (0.7-1.3) H Estimated GFR (Cockcroft-Gault) 50.5 BUN/Creatinine Ratio 17 (6-20) Glucose Level 50 mg/dL (70-99) L Calcium Level 9.0 mg/dL (8.5-10.1) Total Bilirubin 0.5 mg/dL (0.2-1.0) Aspartate Amino Transferase (AST) 25 U/L (15-37) Alanine Aminotransferase (ALT) 26 U/L (16-63) Alkaline Phosphatase 73 U/L (46-116) Total Protein 7.0 g/dL (6.4-8.2) Albumin 3.1 g/dL (3.4-5.0) L Albumin/Globulin Ratio 0.8 (1.0-1.7) L Test 05/08/21 12:05 05/08/21 17:05 05/08/21 19:36 Glucose (Fingerstick) 209 mg/dL (70-99) H 91 mg/dL (70-99) 170 mg/dL (70-99) H Current Medications: Meds: Laboratory Tests Test 05/08/21 05:54 05/08/21 06:03 05/08/21 06:32 05/08/21 07:41 Glucose (Fingerstick) 47 mg/dL 101 mg/dL 173 mg/dL White Blood Count 7.0 x10^3/uL Red Blood Count 4.51 x10^6/uL Hemoglobin 13.8 g/dL Hematocrit 41.7 % Mean Corpuscular Volume 92 fL Mean Corpuscular Hemoglobin 31 pg Mean Corpuscular Hemoglobin Concent 33 g/dL Red Cell Distribution Width 13.7 % Platelet Count 211 x10^3/uL Neutrophils (%) (Auto) 81 % Lymphocytes (%) (Auto) 9 % Monocytes (%) (Auto) 9 % Eosinophils (%) (Auto) 1 % Basophils (%) (Auto) 0 % Neutrophils # (Auto) 5.7 x10^3uL Lymphocytes # (Auto) 0.7 x10^3/uL Monocytes # (Auto) 0.6 x10^3/uL Eosinophils # (Auto) 0.1 x10^3/uL Basophils # (Auto) 0.0 x10^3/uL Sodium Level 132 mmol/L Potassium Level 4.3 mmol/L Chloride Level 97 mmol/L Carbon Dioxide Level 32 mmol/L Anion Gap 3 Blood Urea Nitrogen 24 mg/dL Creatinine 1.4 mg/dL Estimated GFR (Cockcroft-Gault) 50.5 BUN/Creatinine Ratio 17 Glucose Level 50 mg/dL Calcium Level 9.0 mg/dL Total Bilirubin 0.5 mg/dL Aspartate Amino Transf (AST/SGOT) 25 U/L Alanine Aminotransferase (ALT/SGPT) 26 U/L Alkaline Phosphatase 73 U/L Total Protein 7.0 g/dL Albumin 3.1 g/dL Albumin/Globulin Ratio 0.8 Test 05/08/21 12:05 05/08/21 17:05 05/08/21 19:36 Glucose (Fingerstick) 209 mg/dL 91 mg/dL 170 mg/dL Current Medications Medications (Trade) Dose Ordered Sig/Nicky Route PRN Reason Start Time Stop Time Status Last Admin Dose Admin Acetaminophen (Tylenol) 650 mg PRN Q6HRS PRN PO MILD PAIN / TEMP > 100.3'F 04/25/21 12:15 04/25/21 14:18 DC Multi-Ingredient Ointment (Analgesic [place]) 1 neelima PRN QID PRN TP MUSCLE PAIN 04/25/21 12:15 05/01/21 16:28 Al Hydroxide/Mg Hydroxide (Mylanta Plus Xs) 15 ml PRN AFTMEALHC PRN PO DYSPEPSIA 04/25/21 12:15 04/26/21 10:24 DC Magnesium Hydroxide (Milk Of Magnesia) 2,400 mg PRN QHS PRN PO 2nd choice CONSTIPATION 04/25/21 12:15 04/26/21 10:24 DC Acetaminophen (Tylenol) 1,000 mg TID PO 04/25/21 14:00 04/26/21 10:24 DC 04/26/21 08:36 Aspirin (Aspirin Chewable) 81 mg DAILY PO 04/26/21 09:00 05/08/21 08:39 Bisacodyl (Dulcolax Tab) 10 mg PRN BID PRN PO 3rd choice CONSTIPATION 04/25/21 13:45 04/26/21 10:24 DC Bisacodyl (Dulcolax Supp) 10 mg PRN DAILY PRN RC 4th choice CONSTIPATION 04/25/21 13:45 04/26/21 10:24 DC Clopidogrel Bisulfate (Plavix) 75 mg DAILY PO 04/26/21 09:00 05/08/21 08:39 Duloxetine HCl (Cymbalta) 60 mg DAILY PO 04/26/21 09:00 04/27/21 20:03 DC 04/27/21 09:21 Guaifenesin (Robitussin) 200 mg PRN Q4HRS PRN PO COUGH 04/25/21 13:45 04/26/21 10:24 DC Hydralazine HCl (Apresoline) 25 mg TID PO 04/25/21 14:00 04/26/21 10:24 DC 04/26/21 08:34 Hydrocortisone (Proctosol-Hc) 1 neelima BID RC 04/25/21 21:00 04/28/21 11:07 DC 04/27/21 09:00 Lidocaine (Lidoderm) 1 patch DAILY TP 04/25/21 18:00 05/07/21 16:12 DC 05/07/21 08:22 Metolazone (Zaroxolyn) 2.5 mg QODAY PO 04/26/21 09:00 04/26/21 10:24 DC 04/26/21 08:34 Nystatin (Nystop) 1 neelima BID TP 04/25/21 21:00 04/26/21 10:24 DC 04/26/21 08:43 Polyethylene Glycol (miraLAX) 17 gm PRN DAILY PRN PO 1st choice CONSTIPATION 04/25/21 13:45 05/04/21 13:02 Potassium Chloride (Klor-Con) 30 meq DAILY PO 04/26/21 09:00 05/08/21 08:40 Sennosides (Senna) 8.6 mg PRN QHS PRN PO constipation 04/25/21 13:45 04/26/21 10:24 DC Simethicone (Gas-X) 80 mg PRN BID PRN PO gas 04/25/21 13:45 04/26/21 10:24 DC Spironolactone (Aldactone) 25 mg DAILY PO 04/26/21 09:00 04/26/21 10:24 DC 04/26/21 08:34 Tramadol HCl (Ultram) 100 mg PRN Q4HRS PRN PO PAIN 04/25/21 13:45 04/27/21 10:01 DC 04/27/21 06:06 Trazodone HCl (Desyrel) 200 mg HS PO 04/25/21 21:00 05/07/21 21:11 Non-Formulary Medication (Arginine/ Glutamine/Calcium Hmb (Stephen Packet)) 1 each BID PO 04/25/21 21:00 04/25/21 15:06 DC Atorvastatin Calcium (Lipitor) 80 mg QHS PO 04/25/21 21:00 05/07/21 21:11 Bumetanide (Bumex) 2 mg DAILY PO 04/26/21 09:00 04/30/21 10:39 DC 04/30/21 08:57 Al Hydroxide/Mg Hydroxide (Mylanta Plus Xs) 30 ml PRN Q12HR PRN PO DYSPEPSIA 04/25/21 14:45 04/26/21 10:24 DC 04/26/21 01:37 Carvedilol (Coreg) 37.5 mg BID PO 04/25/21 21:00 05/08/21 08:39 Cyclobenzaprine HCl (Flexeril) 5 mg PRN BID PRN PO MUSCLE SPASMS 04/25/21 14:45 04/26/21 10:24 DC Insulin Human Lispro (HumaLOG) 8 units TIDBFRMEAL SQ 04/25/21 16:30 05/08/21 12:22 Insulin Glargine (Lantus Syringe) 48 unit QHS SQ 04/25/21 21:00 05/07/21 21:12 Loperamide HCl (Imodium) 2 mg PRN Q1HR PRN PO severe DIARRHEA 04/25/21 15:00 04/26/21 10:24 DC Loperamide HCl (Imodium) 2 mg PRN Q6HRS PRN PO MILD-MOD DIARRHEA 04/25/21 15:15 04/26/21 10:24 DC Melatonin (Melatonin) 9 mg QHS PO 04/25/21 21:00 04/26/21 10:24 DC 04/25/21 21:29 Non-Formulary Medication (Menthol/Zinc Oxide (Calmoseptine Ointment)) 3.5 gm BID TP 04/25/21 21:00 04/25/21 14:56 DC Multi-Ingred Cream/Lotion/Oil/ Oint (Hydrocerin) 1 neelima BID TP 04/25/21 21:00 04/26/21 10:24 DC 04/26/21 08:40 Multivitamins/ Calcium (Thera-M Plus) 1 tab DAILY PO 04/26/21 09:00 04/26/21 10:24 DC 04/26/21 08:34 Phenyleph/Shark Oil/Min Oil/Petrol (Preparation H) 1 neelima PRN Q12HR PRN RC RECTAL PAIN 04/25/21 15:00 04/26/21 10:24 DC Linagliptin (Tradjenta) 5 mg DAILY PO 04/26/21 09:00 05/08/21 08:39 Saliva Substitute (Biotene Moisturizing Mouth) 1 spray PRN Q1HR PRN PO DRY MOUTH 04/25/21 15:15 Duloxetine HCl (Cymbalta) 30 mg DAILY PO 04/27/21 09:00 04/27/21 07:48 DC Oxycodone/ Acetaminophen (Percocet 10/325) 1 tab PRN Q6HRS PRN PO MOD-SEV PAIN 04/27/21 10:00 05/08/21 16:40 Duloxetine HCl (Cymbalta) 90 mg DAILY PO 04/28/21 09:00 05/08/21 08:39 Hydrocortisone (Proctosol-Hc) 1 neelima PRN BID PRN RC RECTAL PAIN 04/28/21 21:00 Aripiprazole (Abilify) 2.5 mg DAILY PO 04/29/21 09:00 04/29/21 20:16 DC 04/29/21 09:23 Aripiprazole (Abilify) 5 mg DAILY PO 04/30/21 09:00 05/08/21 08:39 Acetaminophen (Tylenol) 1,000 mg PRN Q6HRS PRN PO MILD PAIN 1-3 05/02/21 11:00 05/04/21 06:30 Al Hydroxide/Mg Hydroxide (Mylanta Plus Xs) 30 ml PRN AFTMEALHC PRN PO DYSPEPSIA 05/03/21 10:45 05/07/21 13:59 Lidocaine (Lidoderm) 2 patch DAILY TP 05/07/21 16:15 05/08/21 08:41 Miscellaneous (Lidoderm Patch Removal) 1 ea QHS MC 05/07/21 21:00 I have reviewed the current psychotropics carefully including drug interactions. Risk benefit ratio favors no change other than as noted in my dictated progress note. Diagnosis: Problems: (1) Major depressive disorder, recurrent, severe with psychotic features (2) Personality disorder, unspecified (3) Anxiety disorder, unspecified ESE LEVI MD May 08, 2021 21:26
[2021-05-08] MEDS: traZODone 100 MG TABLET. PO SCH (21:34)
[2021-05-08] MEDS: ATORVASTATIN CALCIUM 20 MG TABLET PO SCH (21:35)
--- NOTE | 2021-05-08 22:05 | NUR ---
Pt has been cooperative with staff shruthi. He took meds whole without difficulty. HS Insulin was held due to pts decreased meal intake and some low glucose levels today. [facility] and seemed to be getting himself upset about it.
[2021-05-09 06:24] VITALS: BP 127/79
[2021-05-09] MEDS: INSULIN LISPRO 300 UNITS/3 ML VIAL. SQ SCH ×3 (07:30→16:30)
[2021-05-09] MEDS: POTASSIUM CHLORIDE 10 MEQ TABLET.ER. PO SCH (08:00)
[2021-05-09] MEDS: ARIPiprazole 5 MG TABLET PO SCH (08:00)
[2021-05-09] MEDS: DULoxetine HCL 30 MG CAPSULE.DR PO SCH (08:00)
[2021-05-09] MEDS: CLOPIDOGREL BISULFATE 75 MG TABLET PO SCH (08:00)
[2021-05-09] MEDS: LINAGLIPTIN 5 MG TABLET PO SCH (08:00)
[2021-05-09] MEDS: ASPIRIN CHEWABLE 81 MG TABLET. PO SCH (08:00)
[2021-05-09] MEDS: CARVEDILOL 12.5 MG TABLET PO SCH ×2 (08:01→20:12)
[2021-05-09] MEDS: LIDOCAINE (700MG/PATCH) PATCH. TP SCH (08:03)
[2021-05-09] MEDS: oxyCODONE/APAP 10/325 1 TAB TABLET PO PRN ×2 (09:43→16:10)
--- NOTE | 2021-05-09 12:35 | NUR ---
Pt observed not eating lunch (mechanical ground pork, rice, and green beans). He states he needs a puree diet d/t lack of teeth and not the mechanical soft diet which was ordered. When asked what he at at his facility he replied "I didn't eat their food, I ordered [employer]." When asked what he ordered from [employer] he replied "Chicken and dumplings." When I stated that rice is easier to chew than chicken and dumplings he stated "The rice here is too hard." When asked if cooked green beans is harder in consistency than chicken and dumplings he picked up a green goss and said "Oh I guess I can just swallow it whole." Addendum: 05/09/21 at 1310 by VINCENT BAILEY RN Pt a&o x4, absent of SI/HI/VH/AH/delusions. He reports 10/10 pain in the R shoulder, PRN Percoset 10/325 mg PO administered at his request. He is compliant with whole medications and is receptive to education provided. Pt is able to make his needs known to staff and is appropriate with his interactions with others. He still displays periods of being somatic or exaggerated with complaints and concerns. Plan of care continues, will pass to next shift.
[2021-05-09 15:24] VITALS: BP 121/81
[2021-05-09] MEDS: MAG HYDROX/AL HYDROX/SIMETH 30 ML ORAL.SUSP PO PRN (16:10)
--- NOTE | 2021-05-09 16:25 | NUR ---
Pt c/o indigestion and 10 R shoulder pain. PRN medication administered per SEP.
--- NOTE | 2021-05-09 17:22 | NUR ---
Pt's blood glucose 104, dinner insulin held. He went to dinner and c/o feeling like his blood sugar as "too low," and he was encouraged by staff to consume food. He refused to eat and kept laying his head on the table, this nurse encouraged him further to eat...stating that not eating will only cause his blood sugar to further drop and he will continue to feel worse. He ate one bite of mixed vegetables and then went back to laying his head on the table in a depressed fashion. I once again encouraged him to continue eating and he complained "Do I have to?" He then took a bite of cooked vegetable mix and c/o that it was "too hard to chew." Staff pointed out that in the afternoon he was observed eating apple slices with caramel dip as a snack, and pt attempted to explain that the slices were "thin." Another patient at the table also interjected and began to encourage pt to eat as well.
[2021-05-09] MEDS ORDERED: DEXTROSE ORAL GEL 15 GM TUBE. PO PRN (18:00)
[2021-05-09] MEDS: PATCH REMOVAL. MC SCH (20:11)
[2021-05-09] MEDS: ATORVASTATIN CALCIUM 20 MG TABLET PO SCH (20:12)
[2021-05-09] MEDS: INSULIN GLARGINE SYRINGE. SQ SCH (20:12)
[2021-05-09] MEDS: traZODone 100 MG TABLET. PO SCH (20:12)
[2021-05-09] MEDS ORDERED: MELATONIN 3 MG TABLET PO PRN (21:00)
--- NOTE | 2021-05-09 21:40 | PDOC ---
Exam Note: Josef Note: Please also refer to the separate dictated note~for this date of service dictated separately.~Patient seen individually. Discussed the patient with Nursing staff reviewed the chart.~Reviewed interim history and current functioning. Reviewed vital signs,~Labs/ Radiology~and current medications noted below. Continue current treatment with the changes noted in the dictated addendum note Assessment: Vital Signs/I&O: Vital Signs Date Time Temp Pulse Resp B/P (MAP) Pulse Ox O2 Delivery O2 Flow Rate FiO2 05/09/21 20:12 76 121/81 05/09/21 15:24 97.6 20 97 05/09/21 06:24 Room Air 05/07/21 06:23 2.0 I & O 05/08/21 05/08/21 05/09/21 15:00 23:00 07:00 Intake Total 600 ml 480 ml Balance 600 ml 480 ml Labs: Laboratory Tests Test 05/09/21 07:31 05/09/21 11:15 05/09/21 16:31 05/09/21 19:33 Glucose (Fingerstick) 119 mg/dL (70-99) H 187 mg/dL (70-99) H 104 mg/dL (70-99) H 151 mg/dL (70-99) H Current Medications: Meds: Laboratory Tests Test 05/09/21 07:31 05/09/21 11:15 05/09/21 16:31 05/09/21 19:33 Glucose (Fingerstick) 119 mg/dL 187 mg/dL 104 mg/dL 151 mg/dL Current Medications Medications (Trade) Dose Ordered Sig/Nicky Route PRN Reason Start Time Stop Time Status Last Admin Dose Admin Acetaminophen (Tylenol) 650 mg PRN Q6HRS PRN PO MILD PAIN / TEMP > 100.3'F 04/25/21 12:15 04/25/21 14:18 DC Multi-Ingredient Ointment (Analgesic [place]) 1 neelima PRN QID PRN TP MUSCLE PAIN 04/25/21 12:15 05/01/21 16:28 Al Hydroxide/Mg Hydroxide (Mylanta Plus Xs) 15 ml PRN AFTMEALHC PRN PO DYSPEPSIA 04/25/21 12:15 04/26/21 10:24 DC Magnesium Hydroxide (Milk Of Magnesia) 2,400 mg PRN QHS PRN PO 2nd choice CONSTIPATION 04/25/21 12:15 04/26/21 10:24 DC Acetaminophen (Tylenol) 1,000 mg TID PO 04/25/21 14:00 04/26/21 10:24 DC 04/26/21 08:36 Aspirin (Aspirin Chewable) 81 mg DAILY PO 04/26/21 09:00 05/09/21 08:00 Bisacodyl (Dulcolax Tab) 10 mg PRN BID PRN PO 3rd choice CONSTIPATION 04/25/21 13:45 04/26/21 10:24 DC Bisacodyl (Dulcolax Supp) 10 mg PRN DAILY PRN RC 4th choice CONSTIPATION 04/25/21 13:45 04/26/21 10:24 DC Clopidogrel Bisulfate (Plavix) 75 mg DAILY PO 04/26/21 09:00 05/09/21 08:00 Duloxetine HCl (Cymbalta) 60 mg DAILY PO 04/26/21 09:00 04/27/21 20:03 DC 04/27/21 09:21 Guaifenesin (Robitussin) 200 mg PRN Q4HRS PRN PO COUGH 04/25/21 13:45 04/26/21 10:24 DC Hydralazine HCl (Apresoline) 25 mg TID PO 04/25/21 14:00 04/26/21 10:24 DC 04/26/21 08:34 Hydrocortisone (Proctosol-Hc) 1 neelima BID RC 04/25/21 21:00 04/28/21 11:07 DC 04/27/21 09:00 Lidocaine (Lidoderm) 1 patch DAILY TP 04/25/21 18:00 05/07/21 16:12 DC 05/07/21 08:22 Metolazone (Zaroxolyn) 2.5 mg QODAY PO 04/26/21 09:00 04/26/21 10:24 DC 04/26/21 08:34 Nystatin (Nystop) 1 neelima BID TP 04/25/21 21:00 04/26/21 10:24 DC 04/26/21 08:43 Polyethylene Glycol (miraLAX) 17 gm PRN DAILY PRN PO 1st choice CONSTIPATION 04/25/21 13:45 05/04/21 13:02 Potassium Chloride (Klor-Con) 30 meq DAILY PO 04/26/21 09:00 05/09/21 08:00 Sennosides (Senna) 8.6 mg PRN QHS PRN PO constipation 04/25/21 13:45 04/26/21 10:24 DC Simethicone (Gas-X) 80 mg PRN BID PRN PO gas 04/25/21 13:45 04/26/21 10:24 DC Spironolactone (Aldactone) 25 mg DAILY PO 04/26/21 09:00 04/26/21 10:24 DC 04/26/21 08:34 Tramadol HCl (Ultram) 100 mg PRN Q4HRS PRN PO PAIN 04/25/21 13:45 04/27/21 10:01 DC 04/27/21 06:06 Trazodone HCl (Desyrel) 200 mg HS PO 04/25/21 21:00 05/09/21 20:12 Non-Formulary Medication (Arginine/ Glutamine/Calcium Hmb (Stephen Packet)) 1 each BID PO 04/25/21 21:00 04/25/21 15:06 DC Atorvastatin Calcium (Lipitor) 80 mg QHS PO 04/25/21 21:00 05/09/21 20:12 Bumetanide (Bumex) 2 mg DAILY PO 04/26/21 09:00 04/30/21 10:39 DC 04/30/21 08:57 Al Hydroxide/Mg Hydroxide (Mylanta Plus Xs) 30 ml PRN Q12HR PRN PO DYSPEPSIA 04/25/21 14:45 04/26/21 10:24 DC 04/26/21 01:37 Carvedilol (Coreg) 37.5 mg BID PO 04/25/21 21:00 05/09/21 20:12 Cyclobenzaprine HCl (Flexeril) 5 mg PRN BID PRN PO MUSCLE SPASMS 04/25/21 14:45 04/26/21 10:24 DC Insulin Human Lispro (HumaLOG) 8 units TIDBFRMEAL SQ 04/25/21 16:30 05/09/21 13:03 Insulin Glargine (Lantus Syringe) 48 unit QHS SQ 04/25/21 21:00 05/07/21 21:12 Loperamide HCl (Imodium) 2 mg PRN Q1HR PRN PO severe DIARRHEA 10/15/21 15:00 04/26/21 10:24 DC Loperamide HCl (Imodium) 2 mg PRN Q6HRS PRN PO MILD-MOD DIARRHEA 04/25/21 15:15 04/26/21 10:24 DC Melatonin (Melatonin) 9 mg QHS PO 04/25/21 21:00 04/26/21 10:24 DC 04/25/21 21:29 Non-Formulary Medication (Menthol/Zinc Oxide (Calmoseptine Ointment)) 3.5 gm BID TP 04/25/21 21:00 04/25/21 14:56 DC Multi-Ingred Cream/Lotion/Oil/ Oint (Hydrocerin) 1 neelima BID TP 04/25/21 21:00 04/26/21 10:24 DC 04/26/21 08:40 Multivitamins/ Calcium (Thera-M Plus) 1 tab DAILY PO 04/26/21 09:00 04/26/21 10:24 DC 04/26/21 08:34 Phenyleph/Shark Oil/Min Oil/Petrol (Preparation H) 1 neelima PRN Q12HR PRN RC RECTAL PAIN 04/25/21 15:00 04/26/21 10:24 DC Linagliptin (Tradjenta) 5 mg DAILY PO 04/26/21 09:00 05/09/21 08:00 Saliva Substitute (Biotene Moisturizing Mouth) 1 spray PRN Q1HR PRN PO DRY MOUTH 04/25/21 15:15 Duloxetine HCl (Cymbalta) 30 mg DAILY PO 04/27/21 09:00 04/27/21 07:48 DC Oxycodone/ Acetaminophen (Percocet 10/325) 1 tab PRN Q6HRS PRN PO MOD-SEV PAIN 04/27/21 10:00 05/09/21 16:10 Duloxetine HCl (Cymbalta) 90 mg DAILY PO 04/28/21 09:00 05/09/21 08:00 Hydrocortisone (Proctosol-Hc) 1 neelima PRN BID PRN RC RECTAL PAIN 04/28/21 21:00 Aripiprazole (Abilify) 2.5 mg DAILY PO 04/29/21 09:00 04/29/21 20:16 DC 04/29/21 09:23 Aripiprazole (Abilify) 5 mg DAILY PO 04/30/21 09:00 05/09/21 08:00 Acetaminophen (Tylenol) 1,000 mg PRN Q6HRS PRN PO MILD PAIN 1-3 05/02/21 11:00 05/04/21 06:30 Al Hydroxide/Mg Hydroxide (Mylanta Plus Xs) 30 ml PRN AFTMEALHC PRN PO DYSPEPSIA 05/03/21 10:45 05/09/21 16:10 Lidocaine (Lidoderm) 2 patch DAILY TP 05/07/21 16:15 05/09/21 08:03 Miscellaneous (Lidoderm Patch Removal) 1 ea QHS MC 05/07/21 21:00 05/09/21 20:11 Glucose (Insta-Glucose) 15 gm PRN Q15MIN PRN PO LOW BLOOD SUGAR 05/09/21 18:00 Melatonin (Melatonin) 3 mg PRN QHS PRN PO INSOMNIA 05/09/21 21:00 I have reviewed the current psychotropics carefully including drug interactions. Risk benefit ratio favors no change other than as noted in my dictated progress note. Diagnosis: Problems: (1) Impulse control disorder, unspecified (2) Anxiety disorder, unspecified (3) Major depressive disorder, recurrent, severe with psychotic features (4) Personality disorder, unspecified ESE LEVI MD May 09, 2021 21:40
[2021-05-10] MEDS: oxyCODONE/APAP 10/325 1 TAB TABLET PO PRN ×3 (01:34→20:01)
[2021-05-10 06:00] VITALS: BP 121/83
[2021-05-10] MEDS: INSULIN LISPRO 300 UNITS/3 ML VIAL. SQ SCH ×3 (07:30→16:30)
[2021-05-10] MEDS: ASPIRIN CHEWABLE 81 MG TABLET. PO SCH (08:47)
[2021-05-10] MEDS: LINAGLIPTIN 5 MG TABLET PO SCH (08:48)
[2021-05-10] MEDS: CARVEDILOL 12.5 MG TABLET PO SCH ×2 (08:48→19:51)
[2021-05-10] MEDS: DULoxetine HCL 30 MG CAPSULE.DR PO SCH (08:48)
[2021-05-10] MEDS: ARIPiprazole 5 MG TABLET PO SCH (08:48)
[2021-05-10] MEDS: CLOPIDOGREL BISULFATE 75 MG TABLET PO SCH (08:48)
[2021-05-10] MEDS: LIDOCAINE (700MG/PATCH) PATCH. TP SCH (08:49)
[2021-05-10] MEDS: POTASSIUM CHLORIDE 10 MEQ TABLET.ER. PO SCH (08:49)
--- NOTE | 2021-05-10 13:39 | NUR ---
RN Day Shift Note: Pt presents with a social/interactive/mildly attention seeking mood/affect. Pt was medication compliant for morning medications. Pt is approachable and is very verbal with staff. Pt often initiates offering up information about his health and/or social hx when not prompted to do so. Pt is able to make needs known to staff. Pt is social with select peers. Pt is noted to spend time in the day room today. Pt follows rules/routines on the unit. Pt vitals are WNL. Pt's Blood Sugar read at 142 this am and 160 at noon. Insulin was withheld due to a recent hx of blood sugars rapidly declining from unpredictable eating habits of pt. Will continue to monitor Blood Sugar and insulin needs. Pt was given a PRN Percocet for complaints of shoulder pain. Pt slept 7 hours last night. pt denies SI/HI thoughts. Will continue to monitor.
[2021-05-10 15:53] VITALS: BP 133/81
[2021-05-10] MEDS: MAG HYDROX/AL HYDROX/SIMETH 30 ML ORAL.SUSP PO PRN (18:29)
[2021-05-10] MEDS: MELATONIN 3 MG TABLET PO SCH (19:50)
[2021-05-10] MEDS: traZODone 100 MG TABLET. PO SCH (19:50)
[2021-05-10] MEDS: ATORVASTATIN CALCIUM 20 MG TABLET PO SCH (19:51)
[2021-05-10] MEDS: PATCH REMOVAL. MC SCH (19:51)
[2021-05-10] MEDS: INSULIN GLARGINE SYRINGE. SQ SCH (19:52)
--- NOTE | 2021-05-10 20:00 | NUR ---
PRN Percocet given for rt shoulder pain.
--- NOTE | 2021-05-10 20:30 | NUR ---
Pt now sleeping off and on, no further complaints of pain.
--- NOTE | 2021-05-10 22:00 | NUR ---
Jeancarlos pt sat in the day room watching the [employer] series until bedtime. He was social and interactive with peers and staff. At times seeks attention. and when transferring to bed said his legs would not work and had to be reminded to assist with transfers. The dressing on his rt foot was changed because it was wet, pt said he had gotten urine on the dressing a couple of times. He takes meds whole without difficulty.
[2021-05-11 06:05] VITALS: BP 131/84
[2021-05-11] MEDS: oxyCODONE/APAP 10/325 1 TAB TABLET PO PRN ×2 (06:43→20:08)
[2021-05-11] MEDS: INSULIN LISPRO 300 UNITS/3 ML VIAL. SQ SCH ×3 (07:30→16:30)
[2021-05-11] MEDS: DULoxetine HCL 30 MG CAPSULE.DR PO SCH (08:47)
[2021-05-11] MEDS: ARIPiprazole 5 MG TABLET PO SCH (08:48)
[2021-05-11] MEDS: LINAGLIPTIN 5 MG TABLET PO SCH (08:48)
[2021-05-11] MEDS: CARVEDILOL 12.5 MG TABLET PO SCH ×2 (08:48→20:06)
[2021-05-11] MEDS: POTASSIUM CHLORIDE 10 MEQ TABLET.ER. PO SCH (08:48)
[2021-05-11] MEDS: ASPIRIN CHEWABLE 81 MG TABLET. PO SCH (08:48)
[2021-05-11] MEDS: CLOPIDOGREL BISULFATE 75 MG TABLET PO SCH (08:48)
[2021-05-11] MEDS: LIDOCAINE (700MG/PATCH) PATCH. TP SCH (08:49)
--- NOTE | 2021-05-11 09:53 | PDOC ---
Exam Note: Josef Note: This note is a late entry for 05/07/2021 covers elements not covered in my initial note. Subjective: The patient was seen individually in the evening of 05/07/2021 with Elyse MODI, discussed and reviewed the chart. The patient slept 7 hours previous night. He has been anxious, somewhat attention seeking, especially during meal times when he was hitting his toast on the table, spilling crumbs all over, trying to present the nursing staff that the toast was over-toasted. I addressed this with him. He seemed insightful. Otherwise subjectively he states he feels better since he has been here. Review of Systems: Ambulation impaired in wheelchair. No CV, , pulmonary, eye system symptoms on review. He does complain of pain but feels it better with the Lidocaine patch. Mental Status Exam: The patient is awake, alert and oriented. Speech coherent. Abstraction fair. Computation impaired. Language function intact. Mood and affect is improved, less labile, less dramatic. Laboratory Data: Reviewed. Impression: Major depressive disorder with psychotic features. Anxiety disorder, unspecified. Impulse control disorder unspecified. Plan: Continue current psychotropics. Assessment: Vital Signs/I&O: Vital Signs Date Time Temp Pulse Resp B/P (MAP) Pulse Ox O2 Delivery O2 Flow Rate FiO2 05/11/21 08:48 80 131/84 05/11/21 06:05 97.4 16 96 Room Air 05/07/21 06:23 2.0 I & O 05/10/21 05/10/21 05/11/21 14:59 22:59 06:59 Intake Total 1250 ml 840 ml Output Total 1700 ml Balance 1250 ml 840 ml -1700 ml Labs: Laboratory Tests Test 05/10/21 11:26 05/10/21 16:12 05/10/21 19:05 05/11/21 07:22 Glucose (Fingerstick) 160 mg/dL (70-99) H 182 mg/dL (70-99) H 194 mg/dL (70-99) H 139 mg/dL (70-99) H Current Medications: Meds: Laboratory Tests Test 05/10/21 11:26 05/10/21 16:12 05/10/21 19:05 05/11/21 07:22 Glucose (Fingerstick) 160 mg/dL 182 mg/dL 194 mg/dL 139 mg/dL Current Medications Medications (Trade) Dose Ordered Sig/Nicky Route PRN Reason Start Time Stop Time Status Last Admin Dose Admin Acetaminophen (Tylenol) 650 mg PRN Q6HRS PRN PO MILD PAIN / TEMP > 100.3'F 04/25/21 12:15 04/25/21 14:18 DC Multi-Ingredient Ointment (Analgesic [place]) 1 neelima PRN QID PRN TP MUSCLE PAIN 04/25/21 12:15 05/01/21 16:28 Al Hydroxide/Mg Hydroxide (Mylanta Plus Xs) 15 ml PRN AFTMEALHC PRN PO DYSPEPSIA 04/25/21 12:15 04/26/21 10:24 DC Magnesium Hydroxide (Milk Of Magnesia) 2,400 mg PRN QHS PRN PO 2nd choice CONSTIPATION 04/25/21 12:15 04/26/21 10:24 DC Acetaminophen (Tylenol) 1,000 mg TID PO 04/25/21 14:00 04/26/21 10:24 DC 04/26/21 08:36 Aspirin (Aspirin Chewable) 81 mg DAILY PO 04/26/21 09:00 05/11/21 08:48 Bisacodyl (Dulcolax Tab) 10 mg PRN BID PRN PO 3rd choice CONSTIPATION 04/25/21 13:45 04/26/21 10:24 DC Bisacodyl (Dulcolax Supp) 10 mg PRN DAILY PRN RC 4th choice CONSTIPATION 04/25/21 13:45 04/26/21 10:24 DC Clopidogrel Bisulfate (Plavix) 75 mg DAILY PO 04/26/21 09:00 05/11/21 08:48 Duloxetine HCl (Cymbalta) 60 mg DAILY PO 04/26/21 09:00 04/27/21 20:03 DC 04/27/21 09:21 Guaifenesin (Robitussin) 200 mg PRN Q4HRS PRN PO COUGH 04/25/21 13:45 04/26/21 10:24 DC Hydralazine HCl (Apresoline) 25 mg TID PO 04/25/21 14:00 04/26/21 10:24 DC 04/26/21 08:34 Hydrocortisone (Proctosol-Hc) 1 neelima BID RC 04/25/21 21:00 04/28/21 11:07 DC 04/27/21 09:00 Lidocaine (Lidoderm) 1 patch DAILY TP 04/25/21 18:00 05/07/21 16:12 DC 05/07/21 08:22 Metolazone (Zaroxolyn) 2.5 mg QODAY PO 04/26/21 09:00 04/26/21 10:24 DC 04/26/21 08:34 Nystatin (Nystop) 1 neelima BID TP 04/25/21 21:00 04/26/21 10:24 DC 04/26/21 08:43 Polyethylene Glycol (miraLAX) 17 gm PRN DAILY PRN PO 1st choice CONSTIPATION 04/25/21 13:45 05/04/21 13:02 Potassium Chloride (Klor-Con) 30 meq DAILY PO 04/26/21 09:00 05/11/21 08:48 Sennosides (Senna) 8.6 mg PRN QHS PRN PO constipation 04/25/21 13:45 04/26/21 10:24 DC Simethicone (Gas-X) 80 mg PRN BID PRN PO gas 04/25/21 13:45 04/26/21 10:24 DC Spironolactone (Aldactone) 25 mg DAILY PO 04/26/21 09:00 04/26/21 10:24 DC 04/26/21 08:34 Tramadol HCl (Ultram) 100 mg PRN Q4HRS PRN PO PAIN 04/25/21 13:45 04/27/21 10:01 DC 04/27/21 06:06 Trazodone HCl (Desyrel) 200 mg HS PO 04/25/21 21:00 05/10/21 19:50 Non-Formulary Medication (Arginine/ Glutamine/Calcium Hmb (Stephen Packet)) 1 each BID PO 04/25/21 21:00 04/25/21 15:06 DC Atorvastatin Calcium (Lipitor) 80 mg QHS PO 04/25/21 21:00 05/10/21 19:51 Bumetanide (Bumex) 2 mg DAILY PO 04/26/21 09:00 04/30/21 10:39 DC 04/30/21 08:57 Al Hydroxide/Mg Hydroxide (Mylanta Plus Xs) 30 ml PRN Q12HR PRN PO DYSPEPSIA 04/25/21 14:45 04/26/21 10:24 DC 04/26/21 01:37 Carvedilol (Coreg) 37.5 mg BID PO 04/25/21 21:00 05/11/21 08:48 Cyclobenzaprine HCl (Flexeril) 5 mg PRN BID PRN PO MUSCLE SPASMS 04/25/21 14:45 04/26/21 10:24 DC Insulin Human Lispro (HumaLOG) 8 units TIDBFRMEAL SQ 04/25/21 16:30 05/09/21 13:03 Insulin Glargine (Lantus Syringe) 48 unit QHS SQ 04/25/21 21:00 05/10/21 16:26 DC 05/07/21 21:12 Loperamide HCl (Imodium) 2 mg PRN Q1HR PRN PO severe DIARRHEA 04/25/21 15:00 04/26/21 10:24 DC Loperamide HCl (Imodium) 2 mg PRN Q6HRS PRN PO MILD-MOD DIARRHEA 04/25/21 15:15 04/26/21 10:24 DC Melatonin (Melatonin) 9 mg QHS PO 04/25/21 21:00 04/26/21 10:24 DC 04/25/21 21:29 Non-Formulary Medication (Menthol/Zinc Oxide (Calmoseptine Ointment)) 3.5 gm BID TP 04/25/21 21:00 04/25/21 14:56 DC Multi-Ingred Cream/Lotion/Oil/ Oint (Hydrocerin) 1 neelima BID TP 04/25/21 21:00 04/26/21 10:24 DC 04/26/21 08:40 Multivitamins/ Calcium (Thera-M Plus) 1 tab DAILY PO 04/26/21 09:00 04/26/21 10:24 DC 04/26/21 08:34 Phenyleph/Shark Oil/Min Oil/Petrol (Preparation H) 1 neelima PRN Q12HR PRN RC RECTAL PAIN 04/25/21 15:00 04/26/21 10:24 DC Linagliptin (Tradjenta) 5 mg DAILY PO 04/26/21 09:00 05/11/21 08:48 Saliva Substitute (Biotene Moisturizing Mouth) 1 spray PRN Q1HR PRN PO DRY MOUTH 04/25/21 15:15 Duloxetine HCl (Cymbalta) 30 mg DAILY PO 04/27/21 09:00 04/27/21 07:48 DC Oxycodone/ Acetaminophen (Percocet 10325) 1 tab PRN Q6HRS PRN PO MOD-SEV PAIN 04/27/21 10:00 05/11/21 06:43 Duloxetine HCl (Cymbalta) 90 mg DAILY PO 04/28/21 09:00 05/11/21 08:47 Hydrocortisone (Proctosol-Hc) 1 neelima PRN BID PRN RC RECTAL PAIN 04/28/21 21:00 Aripiprazole (Abilify) 2.5 mg DAILY PO 04/29/21 09:00 04/29/21 20:16 DC 04/29/21 09:23 Aripiprazole (Abilify) 5 mg DAILY PO 04/30/21 09:00 05/11/21 08:48 Acetaminophen (Tylenol) 1,000 mg PRN Q6HRS PRN PO MILD PAIN 1-3 05/02/21 11:00 05/04/21 06:30 Al Hydroxide/Mg Hydroxide (Mylanta Plus Xs) 30 ml PRN AFTMEALHC PRN PO DYSPEPSIA 05/03/21 10:45 05/10/21 18:29 Lidocaine (Lidoderm) 2 patch DAILY TP 05/07/21 16:15 05/11/21 08:49 Miscellaneous (Lidoderm Patch Removal) 1 ea QHS MC 05/07/21 21:00 05/10/21 19:51 Glucose (Insta-Glucose) 15 gm PRN Q15MIN PRN PO LOW BLOOD SUGAR 05/09/21 18:00 Melatonin (Melatonin) 3 mg PRN QHS PRN PO INSOMNIA 05/09/21 21:00 05/10/21 03:08 DC Melatonin (Melatonin) 3 mg HS PO 05/10/21 21:00 05/10/21 19:50 Insulin Glargine (Lantus Syringe) 40 unit QHS SQ 05/10/21 21:00 Current Medications Medications (Trade) Dose Ordered Sig/Nicky Route PRN Reason Start Time Stop Time Status Last Admin Dose Admin Melatonin (Melatonin) 3 mg HS PO 05/10/21 21:00 05/10/21 19:50 I have reviewed the current psychotropics carefully including drug interactions. Risk benefit ratio favors no change other than as noted in my dictated progress note. Diagnosis: Problems: (1) Impulse control disorder, unspecified (2) Anxiety disorder, unspecified (3) Major depressive disorder, recurrent, severe with psychotic features ESE LEVI MD May 11, 2021 09:53
--- NOTE | 2021-05-11 10:05 | NUR ---
Nursing note: Pt in dining room at time of AM med pass and assessment. He is pleasant, med compliant and cooperative. Pt c/o generalized pain. He is currently in the day room watching restoration on TV. Will continue to monitor.
--- NOTE | 2021-05-11 10:10 | PDOC ---
Exam Note: Josef Note: This note is a late entry for 05/08/2021 covers elements not covered in my initial note. Subjective: The patient was seen individually in the evening of 05/08/2021 with Bj MODI, discussed and reviewed the chart. The patient slept 6-1/4 hours previous night. I met with the patient in the dayroom. He was watching TV and was quite aware of what he was watching as I questioned him. Blood sugar is somewhat low. We will defer to Dr. Gandhi. Review of Systems: Ambulation impaired in wheelchair. No CV, , pulmonary, eye system symptoms on review. Mental Status Exam: The patient is reasonably oriented. Speech coherent, has some latency. Abstraction fair. Computation impaired. Language function intact. Mood and affect is less dramatic, less depressed. He states he feels better. No suicidal or homicidal ideation. Laboratory Data: Reviewed. Impression: Major depressive disorder with psychotic features. Anxiety disorder, unspecified. Impulse control disorder unspecified. Plan: Continue current psychotropics. Assessment: Vital Signs/I&O: Vital Signs Date Time Temp Pulse Resp B/P (MAP) Pulse Ox O2 Delivery O2 Flow Rate FiO2 05/11/21 08:48 80 131/84 05/11/21 06:05 97.4 16 96 Room Air 05/07/21 06:23 2.0 I & O 05/10/21 05/10/21 05/11/21 15:00 23:00 07:00 Intake Total 1250 ml 840 ml Output Total 1700 ml Balance 1250 ml 840 ml -1700 ml Labs: Laboratory Tests Test 05/10/21 11:26 05/10/21 16:12 05/10/21 19:05 05/11/21 07:22 Glucose (Fingerstick) 160 mg/dL (70-99) H 182 mg/dL (70-99) H 194 mg/dL (70-99) H 139 mg/dL (70-99) H Current Medications: Meds: Laboratory Tests Test 05/10/21 11:26 05/10/21 16:12 05/10/21 19:05 05/11/21 07:22 Glucose (Fingerstick) 160 mg/dL 182 mg/dL 194 mg/dL 139 mg/dL Current Medications Medications (Trade) Dose Ordered Sig/Nicky Route PRN Reason Start Time Stop Time Status Last Admin Dose Admin Acetaminophen (Tylenol) 650 mg PRN Q6HRS PRN PO MILD PAIN / TEMP > 100.3'F 04/25/21 12:15 04/25/21 14:18 DC Multi-Ingredient Ointment (Analgesic [place]) 1 neelima PRN QID PRN TP MUSCLE PAIN 04/25/21 12:15 05/01/21 16:28 Al Hydroxide/Mg Hydroxide (Mylanta Plus Xs) 15 ml PRN AFTMEALHC PRN PO DYSPEPSIA 04/25/21 12:15 04/26/21 10:24 DC Magnesium Hydroxide (Milk Of Magnesia) 2,400 mg PRN QHS PRN PO 2nd choice CONSTIPATION 04/25/21 12:15 04/26/21 10:24 DC Acetaminophen (Tylenol) 1,000 mg TID PO 04/25/21 14:00 04/26/21 10:24 DC 04/26/21 08:36 Aspirin (Aspirin Chewable) 81 mg DAILY PO 04/26/21 09:00 05/11/21 08:48 Bisacodyl (Dulcolax Tab) 10 mg PRN BID PRN PO 3rd choice CONSTIPATION 04/25/21 13:45 04/26/21 10:24 DC Bisacodyl (Dulcolax Supp) 10 mg PRN DAILY PRN RC 4th choice CONSTIPATION 04/25/21 13:45 04/26/21 10:24 DC Clopidogrel Bisulfate (Plavix) 75 mg DAILY PO 04/26/21 09:00 05/11/21 08:48 Duloxetine HCl (Cymbalta) 60 mg DAILY PO 04/26/21 09:00 04/27/21 20:03 DC 04/27/21 09:21 Guaifenesin (Robitussin) 200 mg PRN Q4HRS PRN PO COUGH 04/25/21 13:45 04/26/21 10:24 DC Hydralazine HCl (Apresoline) 25 mg TID PO 04/25/21 14:00 04/26/21 10:24 DC 04/26/21 08:34 Hydrocortisone (Proctosol-Hc) 1 neelima BID RC 04/25/21 21:00 04/28/21 11:07 DC 04/27/21 09:00 Lidocaine (Lidoderm) 1 patch DAILY TP 04/25/21 18:00 05/07/21 16:12 DC 05/07/21 08:22 Metolazone (Zaroxolyn) 2.5 mg QODAY PO 04/26/21 09:00 04/26/21 10:24 DC 04/26/21 08:34 Nystatin (Nystop) 1 neelima BID TP 04/25/21 21:00 04/26/21 10:24 DC 04/26/21 08:43 Polyethylene Glycol (miraLAX) 17 gm PRN DAILY PRN PO 1st choice CONSTIPATION 04/25/21 13:45 05/04/21 13:02 Potassium Chloride (Klor-Con) 30 meq DAILY PO 04/26/21 09:00 05/11/21 08:48 Sennosides (Senna) 8.6 mg PRN QHS PRN PO constipation 04/25/21 13:45 04/26/21 10:24 DC Simethicone (Gas-X) 80 mg PRN BID PRN PO gas 04/25/21 13:45 04/26/21 10:24 DC Spironolactone (Aldactone) 25 mg DAILY PO 04/26/21 09:00 04/26/21 10:24 DC 04/26/21 08:34 Tramadol HCl (Ultram) 100 mg PRN Q4HRS PRN PO PAIN 04/25/21 13:45 04/27/21 10:01 DC 04/27/21 06:06 Trazodone HCl (Desyrel) 200 mg HS PO 04/25/21 21:00 05/10/21 19:50 Non-Formulary Medication (Arginine/ Glutamine/Calcium Hmb (Stephen Packet)) 1 each BID PO 04/25/21 21:00 04/25/21 15:06 DC Atorvastatin Calcium (Lipitor) 80 mg QHS PO 04/25/21 21:00 05/10/21 19:51 Bumetanide (Bumex) 2 mg DAILY PO 04/26/21 09:00 04/30/21 10:39 DC 04/30/21 08:57 Al Hydroxide/Mg Hydroxide (Mylanta Plus Xs) 30 ml PRN Q12HR PRN PO DYSPEPSIA 04/25/21 14:45 04/26/21 10:24 DC 04/26/21 01:37 Carvedilol (Coreg) 37.5 mg BID PO 04/25/21 21:00 05/11/21 08:48 Cyclobenzaprine HCl (Flexeril) 5 mg PRN BID PRN PO MUSCLE SPASMS 04/25/21 14:45 04/26/21 10:24 DC Insulin Human Lispro (HumaLOG) 8 units TIDBFRMEAL SQ 04/25/21 16:30 05/09/21 13:03 Insulin Glargine (Lantus Syringe) 48 unit QHS SQ 04/25/21 21:00 05/10/21 16:26 DC 05/07/21 21:12 Loperamide HCl (Imodium) 2 mg PRN Q1HR PRN PO severe DIARRHEA 04/25/21 15:00 04/26/21 10:24 DC Loperamide HCl (Imodium) 2 mg PRN Q6HRS PRN PO MILD-MOD DIARRHEA 04/25/21 15:15 04/26/21 10:24 DC Melatonin (Melatonin) 9 mg QHS PO 04/25/21 21:00 04/26/21 10:24 DC 04/25/21 21:29 Non-Formulary Medication (Menthol/Zinc Oxide (Calmoseptine Ointment)) 3.5 gm BID TP 04/25/21 21:00 04/25/21 14:56 DC Multi-Ingred Cream/Lotion/Oil/ Oint (Hydrocerin) 1 neelima BID TP 04/25/21 21:00 04/26/21 10:24 DC 04/26/21 08:40 Multivitamins/ Calcium (Thera-M Plus) 1 tab DAILY PO 04/26/21 09:00 04/26/21 10:24 DC 04/26/21 08:34 Phenyleph/Shark Oil/Min Oil/Petrol (Preparation H) 1 neelima PRN Q12HR PRN RC RECTAL PAIN 04/25/21 15:00 04/26/21 10:24 DC Linagliptin (Tradjenta) 5 mg DAILY PO 04/26/21 09:00 05/11/21 08:48 Saliva Substitute (Biotene Moisturizing Mouth) 1 spray PRN Q1HR PRN PO DRY MOUTH 04/25/21 15:15 Duloxetine HCl (Cymbalta) 30 mg DAILY PO 04/27/21 09:00 04/27/21 07:48 DC Oxycodone/ Acetaminophen (Percocet 10/325) 1 tab PRN Q6HRS PRN PO MOD-SEV PAIN 04/27/21 10:00 05/11/21 06:43 Duloxetine HCl (Cymbalta) 90 mg DAILY PO 04/28/21 09:00 05/11/21 08:47 Hydrocortisone (Proctosol-Hc) 1 neelima PRN BID PRN RC RECTAL PAIN 04/28/21 21:00 Aripiprazole (Abilify) 2.5 mg DAILY PO 04/29/21 09:00 04/29/21 20:16 DC 04/29/21 09:23 Aripiprazole (Abilify) 5 mg DAILY PO 04/30/21 09:00 05/11/21 08:48 Acetaminophen (Tylenol) 1,000 mg PRN Q6HRS PRN PO MILD PAIN 1-3 05/02/21 11:00 05/04/21 06:30 Al Hydroxide/Mg Hydroxide (Mylanta Plus Xs) 30 ml PRN AFTMEALHC PRN PO DYSPEPSIA 05/03/21 10:45 05/10/21 18:29 Lidocaine (Lidoderm) 2 patch DAILY TP 05/07/21 16:15 05/11/21 08:49 Miscellaneous (Lidoderm Patch Removal) 1 ea QHS MC 05/07/21 21:00 05/10/21 19:51 Glucose (Insta-Glucose) 15 gm PRN Q15MIN PRN PO LOW BLOOD SUGAR 05/09/21 18:00 Melatonin (Melatonin) 3 mg PRN QHS PRN PO INSOMNIA 05/09/21 21:00 05/10/21 03:08 DC Melatonin (Melatonin) 3 mg HS PO 05/10/21 21:00 05/10/21 19:50 Insulin Glargine (Lantus Syringe) 40 unit QHS SQ 05/10/21 21:00 Current Medications Medications (Trade) Dose Ordered Sig/Nicky Route PRN Reason Start Time Stop Time Status Last Admin Dose Admin Melatonin (Melatonin) 3 mg HS PO 05/10/21 21:00 05/10/21 19:50 I have reviewed the current psychotropics carefully including drug interactions. Risk benefit ratio favors no change other than as noted in my dictated progress note. Diagnosis: Problems: (1) Major depressive disorder, recurrent, severe with psychotic features (2) Anxiety disorder, unspecified (3) Impulse control disorder, unspecified ESE LEVI MD May 11, 2021 10:09
--- NOTE | 2021-05-11 10:25 | PDOC ---
Exam Note: Josef Note: Late entry for 05/10/21. Please also refer to the separate dictated note~for this date of service dictated separately.~Patient seen individually. Discussed the patient with Nursing staff reviewed the chart.~Reviewed interim history and current functioning. Reviewed vital signs,~Labs/ Radiology~and current medicat ions noted below. Continue current treatment with the changes noted in the dictated addendum note Assessment: Vital Signs/I&O: Vital Signs Date Time Temp Pulse Resp B/P (MAP) Pulse Ox O2 Delivery O2 Flow Rate FiO2 05/11/21 08:48 80 131/84 05/11/21 06:05 97.4 16 96 Room Air 05/07/21 06:23 2.0 I & O 05/10/21 05/10/21 05/11/21 15:00 23:00 07:00 Intake Total 1250 ml 840 ml Output Total 1700 ml Balance 1250 ml 840 ml -1700 ml Labs: Laboratory Tests Test 05/10/21 11:26 05/10/21 16:12 05/10/21 19:05 05/11/21 07:22 Glucose (Fingerstick) 160 mg/dL (70-99) H 182 mg/dL (70-99) H 194 mg/dL (70-99) H 139 mg/dL (70-99) H Current Medications: Meds: Current Medications Medications (Trade) Dose Ordered Sig/Nicky Route PRN Reason Start Time Stop Time Status Last Admin Dose Admin Melatonin (Melatonin) 3 mg HS PO 05/10/21 21:00 05/10/21 19:50 I have reviewed the current psychotropics carefully including drug interactions. Risk benefit ratio favors no change other than as noted in my dictated progress note. Diagnosis: Problems: (1) Impulse control disorder, unspecified (2) Anxiety disorder, unspecified (3) Major depressive disorder, recurrent, severe with psychotic features ESE LEVI MD May 11, 2021 10:25
[2021-05-11 16:03] VITALS: BP 123/92
[2021-05-11] MEDS: MELATONIN 3 MG TABLET PO SCH (20:06)
[2021-05-11] MEDS: traZODone 100 MG TABLET. PO SCH (20:06)
[2021-05-11] MEDS: ATORVASTATIN CALCIUM 20 MG TABLET PO SCH (20:06)
[2021-05-11] MEDS: PATCH REMOVAL. MC SCH (20:07)
[2021-05-11] MEDS: INSULIN GLARGINE SYRINGE. SQ SCH (20:11)
--- NOTE | 2021-05-11 22:11 | NUR ---
Pt located in his room eating his leftover dinner. Pt with flat affect, apologetic after his episode this afternoon. Compliant with whole medications. PRN Percocet administered per pt request.
[2021-05-12 05:53] VITALS: BP 112/77
[2021-05-12] MEDS: INSULIN LISPRO 300 UNITS/3 ML VIAL. SQ SCH ×3 (07:30→16:30)
--- NOTE | 2021-05-12 08:29 | PDOC ---
Exam Note: Josef Note: This note is a late entry for 05/09/2021 covers elements not covered in my initial note. Subjective: The patient was seen individually in the evening of 05/09/2021 with jB MODI, discussed and reviewed the chart. The patient slept 4-3/4 hours previous night. He slept poorly last night. Patient remains depressed, refusing his meals, somewhat dramatic in his presentation. I met with him in the dayroom. He was watching television, was able to describe to me what he was watching, quite appropriately. Review of Systems: Ambulation impaired in wheelchair. No CV, , pulmonary, eye system symptoms on review. He complains of chronic back pain. Mental Status Exam: The patient is reasonably oriented. Speech coherent. Abstraction fair. Computation impaired. Language function intact. Attention span short. Mood and affect appears depressed. Laboratory Data: Reviewed. Impression: Major depressive disorder with psychotic features. Anxiety disorder, unspecified. Impulse control disorder unspecified. Plan: We will add melatonin 3 mg h.s. for his insomnia. Continue Cymbalta, Abilify and trazodone unchanged. Assessment: Vital Signs/I&O: Vital Signs Date Time Temp Pulse Resp B/P (MAP) Pulse Ox O2 Delivery O2 Flow Rate FiO2 05/12/21 05:53 96.9 82 20 112/77 (89) 97 05/11/21 06:05 Room Air 05/07/21 06:23 2.0 I & O 05/11/21 05/11/21 05/12/21 15:00 23:00 07:00 Intake Total 960 ml 720 ml Balance 960 ml 720 ml Labs: Laboratory Tests Test 05/11/21 11:50 05/11/21 17:19 05/11/21 19:28 05/12/21 07:45 Glucose (Fingerstick) 185 mg/dL (70-99) H 153 mg/dL (70-99) H 174 mg/dL (70-99) H 116 mg/dL (70-99) H Current Medications: Meds: Laboratory Tests Test 05/11/21 11:50 05/11/21 17:19 05/11/21 19:28 05/12/21 07:45 Glucose (Fingerstick) 185 mg/dL 153 mg/dL 174 mg/dL 116 mg/dL Current Medications Medications (Trade) Dose Ordered Sig/Nicky Route PRN Reason Start Time Stop Time Status Last Admin Dose Admin Acetaminophen (Tylenol) 650 mg PRN Q6HRS PRN PO MILD PAIN / TEMP > 100.3'F 04/25/21 12:15 04/25/21 14:18 DC Multi-Ingredient Ointment (Analgesic [place]) 1 neelima PRN QID PRN TP MUSCLE PAIN 04/25/21 12:15 05/01/21 16:28 Al Hydroxide/Mg Hydroxide (Mylanta Plus Xs) 15 ml PRN AFTMEALHC PRN PO DYSPEPSIA 04/25/21 12:15 04/26/21 10:24 DC Magnesium Hydroxide (Milk Of Magnesia) 2,400 mg PRN QHS PRN PO 2nd choice CONSTIPATION 04/25/21 12:15 04/26/21 10:24 DC Acetaminophen (Tylenol) 1,000 mg TID PO 04/25/21 14:00 04/26/21 10:24 DC 04/26/21 08:36 Aspirin (Aspirin Chewable) 81 mg DAILY PO 04/26/21 09:00 05/11/21 08:48 Bisacodyl (Dulcolax Tab) 10 mg PRN BID PRN PO 3rd choice CONSTIPATION 04/25/21 13:45 04/26/21 10:24 DC Bisacodyl (Dulcolax Supp) 10 mg PRN DAILY PRN RC 4th choice CONSTIPATION 04/25/21 13:45 04/26/21 10:24 DC Clopidogrel Bisulfate (Plavix) 75 mg DAILY PO 04/26/21 09:00 05/11/21 08:48 Duloxetine HCl (Cymbalta) 60 mg DAILY PO 04/26/21 09:00 04/27/21 20:03 DC 04/27/21 09:21 Guaifenesin (Robitussin) 200 mg PRN Q4HRS PRN PO COUGH 04/25/21 13:45 04/26/21 10:24 DC Hydralazine HCl (Apresoline) 25 mg TID PO 04/25/21 14:00 04/26/21 10:24 DC 04/26/21 08:34 Hydrocortisone (Proctosol-Hc) 1 neelima BID RC 04/25/21 21:00 04/28/21 11:07 DC 04/27/21 09:00 Lidocaine (Lidoderm) 1 patch DAILY TP 04/25/21 18:00 05/07/21 16:12 DC 05/07/21 08:22 Metolazone (Zaroxolyn) 2.5 mg QODAY PO 04/26/21 09:00 04/26/21 10:24 DC 04/26/21 08:34 Nystatin (Nystop) 1 neelima BID TP 04/25/21 21:00 04/26/21 10:24 DC 04/26/21 08:43 Polyethylene Glycol (miraLAX) 17 gm PRN DAILY PRN PO 1st choice CONSTIPATION 04/25/21 13:45 05/04/21 13:02 Potassium Chloride (Klor-Con) 30 meq DAILY PO 04/26/21 09:00 05/11/21 08:48 Sennosides (Senna) 8.6 mg PRN QHS PRN PO constipation 04/25/21 13:45 04/26/21 10:24 DC Simethicone (Gas-X) 80 mg PRN BID PRN PO gas 04/25/21 13:45 04/26/21 10:24 DC Spironolactone (Aldactone) 25 mg DAILY PO 04/26/21 09:00 04/26/21 10:24 DC 04/26/21 08:34 Tramadol HCl (Ultram) 100 mg PRN Q4HRS PRN PO PAIN 04/25/21 13:45 04/27/21 10:01 DC 04/27/21 06:06 Trazodone HCl (Desyrel) 200 mg HS PO 04/25/21 21:00 05/11/21 20:06 Non-Formulary Medication (Arginine/ Glutamine/Calcium Hmb (Stephen Packet)) 1 each BID PO 04/25/21 21:00 04/25/21 15:06 DC Atorvastatin Calcium (Lipitor) 80 mg QHS PO 04/25/21 21:00 05/11/21 20:06 Bumetanide (Bumex) 2 mg DAILY PO 04/26/21 09:00 04/30/21 10:39 DC 04/30/21 08:57 Al Hydroxide/Mg Hydroxide (Mylanta Plus Xs) 30 ml PRN Q12HR PRN PO DYSPEPSIA 04/25/21 14:45 04/26/21 10:24 DC 04/26/21 01:37 Carvedilol (Coreg) 37.5 mg BID PO 04/25/21 21:00 05/11/21 20:06 Cyclobenzaprine HCl (Flexeril) 5 mg PRN BID PRN PO MUSCLE SPASMS 04/25/21 14:45 04/26/21 10:24 DC Insulin Human Lispro (HumaLOG) 8 units TIDBFRMEAL SQ 04/25/21 16:30 05/09/21 13:03 Insulin Glargine (Lantus Syringe) 48 unit QHS SQ 04/25/21 21:00 05/10/21 16:26 DC 05/07/21 21:12 Loperamide HCl (Imodium) 2 mg PRN Q1HR PRN PO severe DIARRHEA 04/25/21 15:00 04/26/21 10:24 DC Loperamide HCl (Imodium) 2 mg PRN Q6HRS PRN PO MILD-MOD DIARRHEA 04/25/21 15:15 04/26/21 10:24 DC Melatonin (Melatonin) 9 mg QHS PO 04/25/21 21:00 04/26/21 10:24 DC 04/25/21 21:29 Non-Formulary Medication (Menthol/Zinc Oxide (Calmoseptine Ointment)) 3.5 gm BID TP 04/25/21 21:00 04/25/21 14:56 DC Multi-Ingred Cream/Lotion/Oil/ Oint (Hydrocerin) 1 neelima BID TP 04/25/21 21:00 04/26/21 10:24 DC 04/26/21 08:40 Multivitamins/ Calcium (Thera-M Plus) 1 tab DAILY PO 04/26/21 09:00 04/26/21 10:24 DC 04/26/21 08:34 Phenyleph/Shark Oil/Min Oil/Petrol (Preparation H) 1 neelima PRN Q12HR PRN RC RECTAL PAIN 04/25/21 15:00 04/26/21 10:24 DC Linagliptin (Tradjenta) 5 mg DAILY PO 04/26/21 09:00 05/11/21 08:48 Saliva Substitute (Biotene Moisturizing Mouth) 1 spray PRN Q1HR PRN PO DRY MOUTH 04/25/21 15:15 Duloxetine HCl (Cymbalta) 30 mg DAILY PO 04/27/21 09:00 04/27/21 07:48 DC Oxycodone/ Acetaminophen (Percocet 10) 1 tab PRN Q6HRS PRN PO MOD-SEV PAIN 04/27/21 10:00 05/11/21 20:08 Duloxetine HCl (Cymbalta) 90 mg DAILY PO 04/28/21 09:00 05/11/21 08:47 Hydrocortisone (Proctosol-Hc) 1 neelima PRN BID PRN RC RECTAL PAIN 04/28/21 21:00 Aripiprazole (Abilify) 2.5 mg DAILY PO 04/29/21 09:00 04/29/21 20:16 DC 04/29/21 09:23 Aripiprazole (Abilify) 5 mg DAILY PO 04/30/21 09:00 05/11/21 08:48 Acetaminophen (Tylenol) 1,000 mg PRN Q6HRS PRN PO MILD PAIN 1-3 05/02/21 11:00 05/04/21 06:30 Al Hydroxide/Mg Hydroxide (Mylanta Plus Xs) 30 ml PRN AFTMEALHC PRN PO DYSPEPSIA 05/03/21 10:45 05/10/21 18:29 Lidocaine (Lidoderm) 2 patch DAILY TP 05/07/21 16:15 05/11/21 08:49 Miscellaneous (Lidoderm Patch Removal) 1 ea QHS MC 05/07/21 21:00 05/10/21 19:51 Glucose (Insta-Glucose) 15 gm PRN Q15MIN PRN PO LOW BLOOD SUGAR 05/09/21 18:00 Melatonin (Melatonin) 3 mg PRN QHS PRN PO INSOMNIA 05/09/21 21:00 05/10/21 03:08 DC Melatonin (Melatonin) 3 mg HS PO 05/10/21 21:00 05/11/21 20:19 DC 05/11/21 20:06 Insulin Glargine (Lantus Syringe) 40 unit QHS SQ 05/10/21 21:00 05/11/21 20:11 Melatonin (Melatonin) 6 mg HS PO 05/12/21 21:00 Docusate Sodium (Colace) 100 mg DAILY PO 05/12/21 09:00 I have reviewed the current psychotropics carefully including drug interactions. Risk benefit ratio favors no change other than as noted in my dictated progress note. Diagnosis: Problems: (1) Anxiety disorder, unspecified (2) Impulse control disorder, unspecified (3) Major depressive disorder, severe (4) Chronic pain ESE LEVI MD May 12, 2021 08:29
--- NOTE | 2021-05-12 08:42 | PDOC ---
Exam Note: Josef Note: This note is a late entry for 05/10/2021 covers elements not covered in my initial note. Subjective: The patient was seen individually in the evening of 05/10/2021 with Bj MODI, discussed and reviewed the chart. The patient slept 7 hours previous night. He has had poor appetite. 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 His insulin is being held because of his oral intake. He refuses to assist with standing up. He was smacking himself in the morning and he was unable to assist with his own ADLs, somewhat rambling in his speech per nursing report in the evening, questionable hallucinations. Review of Systems: Ambulation impaired in wheelchair. No CV, , pulmonary, eye system symptoms on review. Mental Status Exam: The patient is alert and oriented. Speech coherent. Abstraction fair. Computation impaired. Again he was in the dayroom, able to follow along with the TV. Language function intact. Attention span short. Mood and affect is still depressed, anxious but less so than before, somewhat distractible. No suicidal or homicidal ideation. Laboratory Data: Reviewed. Impression: Major depressive disorder with psychotic features. Anxiety disorder, unspecified. Impulse control disorder unspecified. Plan: No change from initial note. Assessment: Vital Signs/I&O: Vital Signs Date Time Temp Pulse Resp B/P (MAP) Pulse Ox O2 Delivery O2 Flow Rate FiO2 05/12/21 05:53 96.9 82 20 112/77 (89) 97 05/11/21 06:05 Room Air 05/07/21 06:23 2.0 I & O 05/11/21 05/11/21 05/12/21 15:00 23:00 07:00 Intake Total 960 ml 720 ml Balance 960 ml 720 ml Labs: Laboratory Tests Test 05/11/21 11:50 05/11/21 17:19 05/11/21 19:28 05/12/21 07:45 Glucose (Fingerstick) 185 mg/dL (70-99) H 153 mg/dL (70-99) H 174 mg/dL (70-99) H 116 mg/dL (70-99) H Current Medications: Meds: Laboratory Tests Test 05/11/21 11:50 05/11/21 17:19 05/11/21 19:28 05/12/21 07:45 Glucose (Fingerstick) 185 mg/dL 153 mg/dL 174 mg/dL 116 mg/dL Current Medications Medications (Trade) Dose Ordered Sig/Nicky Route PRN Reason Start Time Stop Time Status Last Admin Dose Admin Acetaminophen (Tylenol) 650 mg PRN Q6HRS PRN PO MILD PAIN / TEMP > 100.3'F 04/25/21 12:15 04/25/21 14:18 DC Multi-Ingredient Ointment (Analgesic Rupert) 1 neelima PRN QID PRN TP MUSCLE PAIN 04/25/21 12:15 05/01/21 16:28 Al Hydroxide/Mg Hydroxide (Mylanta Plus Xs) 15 ml PRN AFTMEALHC PRN PO DYSPEPSIA 04/25/21 12:15 04/26/21 10:24 DC Magnesium Hydroxide (Milk Of Magnesia) 2,400 mg PRN QHS PRN PO 2nd choice CONSTIPATION 04/25/21 12:15 04/26/21 10:24 DC Acetaminophen (Tylenol) 1,000 mg TID PO 04/25/21 14:00 04/26/21 10:24 DC 04/26/21 08:36 Aspirin (Aspirin Chewable) 81 mg DAILY PO 04/26/21 09:00 05/11/21 08:48 Bisacodyl (Dulcolax Tab) 10 mg PRN BID PRN PO 3rd choice CONSTIPATION 04/25/21 13:45 04/26/21 10:24 DC Bisacodyl (Dulcolax Supp) 10 mg PRN DAILY PRN RC 4th choice CONSTIPATION 04/25/21 13:45 04/26/21 10:24 DC Clopidogrel Bisulfate (Plavix) 75 mg DAILY PO 04/26/21 09:00 05/11/21 08:48 Duloxetine HCl (Cymbalta) 60 mg DAILY PO 04/26/21 09:00 04/27/21 20:03 DC 04/27/21 09:21 Guaifenesin (Robitussin) 200 mg PRN Q4HRS PRN PO COUGH 04/25/21 13:45 04/26/21 10:24 DC Hydralazine HCl (Apresoline) 25 mg TID PO 04/25/21 14:00 04/26/21 10:24 DC 04/26/21 08:34 Hydrocortisone (Proctosol-Hc) 1 neelima BID RC 04/25/21 21:00 04/28/21 11:07 DC 04/27/21 09:00 Lidocaine (Lidoderm) 1 patch DAILY TP 04/25/21 18:00 05/07/21 16:12 DC 05/07/21 08:22 Metolazone (Zaroxolyn) 2.5 mg QODAY PO 04/26/21 09:00 04/26/21 10:24 DC 04/26/21 08:34 Nystatin (Nystop) 1 neelima BID TP 04/25/21 21:00 04/26/21 10:24 DC 04/26/21 08:43 Polyethylene Glycol (miraLAX) 17 gm PRN DAILY PRN PO 1st choice CONSTIPATION 04/25/21 13:45 05/04/21 13:02 Potassium Chloride (Klor-Con) 30 meq DAILY PO 04/26/21 09:00 05/11/21 08:48 Sennosides (Senna) 8.6 mg PRN QHS PRN PO constipation 04/25/21 13:45 04/26/21 10:24 DC Simethicone (Gas-X) 80 mg PRN BID PRN PO gas 04/25/21 13:45 04/26/21 10:24 DC Spironolactone (Aldactone) 25 mg DAILY PO 04/26/21 09:00 04/26/21 10:24 DC 04/26/21 08:34 Tramadol HCl (Ultram) 100 mg PRN Q4HRS PRN PO PAIN 04/25/21 13:45 04/27/21 10:01 DC 04/27/21 06:06 Trazodone HCl (Desyrel) 200 mg HS PO 04/25/21 21:00 05/11/21 20:06 Non-Formulary Medication (Arginine/ Glutamine/Calcium Hmb (Stephen Packet)) 1 each BID PO 04/25/21 21:00 04/25/21 15:06 DC Atorvastatin Calcium (Lipitor) 80 mg QHS PO 04/25/21 21:00 05/11/21 20:06 Bumetanide (Bumex) 2 mg DAILY PO 04/26/21 09:00 04/30/21 10:39 DC 04/30/21 08:57 Al Hydroxide/Mg Hydroxide (Mylanta Plus Xs) 30 ml PRN Q12HR PRN PO DYSPEPSIA 04/25/21 14:45 04/26/21 10:24 DC 04/26/21 01:37 Carvedilol (Coreg) 37.5 mg BID PO 04/25/21 21:00 05/11/21 20:06 Cyclobenzaprine HCl (Flexeril) 5 mg PRN BID PRN PO MUSCLE SPASMS 04/25/21 14:45 04/26/21 10:24 DC Insulin Human Lispro (HumaLOG) 8 units TIDBFRMEAL SQ 04/25/21 16:30 05/09/21 13:03 Insulin Glargine (Lantus Syringe) 48 unit QHS SQ 04/25/21 21:00 05/10/21 16:26 DC 05/07/21 21:12 Loperamide HCl (Imodium) 2 mg PRN Q1HR PRN PO severe DIARRHEA 04/25/21 15:00 04/26/21 10:24 DC Loperamide HCl (Imodium) 2 mg PRN Q6HRS PRN PO MILD-MOD DIARRHEA 04/25/21 15:15 04/26/21 10:24 DC Melatonin (Melatonin) 9 mg QHS PO 04/25/21 21:00 04/26/21 10:24 DC 04/25/21 21:29 Non-Formulary Medication (Menthol/Zinc Oxide (Calmoseptine Ointment)) 3.5 gm BID TP 04/25/21 21:00 04/25/21 14:56 DC Multi-Ingred Cream/Lotion/Oil/ Oint (Hydrocerin) 1 neelima BID TP 04/25/21 21:00 04/26/21 10:24 DC 04/26/21 08:40 Multivitamins/ Calcium (Thera-M Plus) 1 tab DAILY PO 04/26/21 09:00 04/26/21 10:24 DC 04/26/21 08:34 Phenyleph/Shark Oil/Min Oil/Petrol (Preparation H) 1 neelima PRN Q12HR PRN RC RECTAL PAIN 04/25/21 15:00 04/26/21 10:24 DC Linagliptin (Tradjenta) 5 mg DAILY PO 04/26/21 09:00 05/11/21 08:48 Saliva Substitute (Biotene Moisturizing Mouth) 1 spray PRN Q1HR PRN PO DRY MOUTH 04/25/21 15:15 Duloxetine HCl (Cymbalta) 30 mg DAILY PO 04/27/21 09:00 04/27/21 07:48 DC Oxycodone/ Acetaminophen (Percocet 10/325) 1 tab PRN Q6HRS PRN PO MOD-SEV PAIN 04/27/21 10:00 05/11/21 20:08 Duloxetine HCl (Cymbalta) 90 mg DAILY PO 04/28/21 09:00 05/11/21 08:47 Hydrocortisone (Proctosol-Hc) 1 neelima PRN BID PRN RC RECTAL PAIN 04/28/21 21:00 Aripiprazole (Abilify) 2.5 mg DAILY PO 04/29/21 09:00 04/29/21 20:16 DC 04/29/21 09:23 Aripiprazole (Abilify) 5 mg DAILY PO 04/30/21 09:00 05/11/21 08:48 Acetaminophen (Tylenol) 1,000 mg PRN Q6HRS PRN PO MILD PAIN 1-3 05/02/21 11:00 05/04/21 06:30 Al Hydroxide/Mg Hydroxide (Mylanta Plus Xs) 30 ml PRN AFTMEALHC PRN PO DYSPEPSIA 05/03/21 10:45 05/10/21 18:29 Lidocaine (Lidoderm) 2 patch DAILY TP 05/07/21 16:15 05/11/21 08:49 Miscellaneous (Lidoderm Patch Removal) 1 ea QHS MC 05/07/21 21:00 05/10/21 19:51 Glucose (Insta-Glucose) 15 gm PRN Q15MIN PRN PO LOW BLOOD SUGAR 05/09/21 18:00 Melatonin (Melatonin) 3 mg PRN QHS PRN PO INSOMNIA 05/09/21 21:00 05/10/21 03:08 DC Melatonin (Melatonin) 3 mg HS PO 05/10/21 21:00 05/11/21 20:19 DC 05/11/21 20:06 Insulin Glargine (Lantus Syringe) 40 unit QHS SQ 05/10/21 21:00 05/11/21 20:11 Melatonin (Melatonin) 6 mg HS PO 05/12/21 21:00 Docusate Sodium (Colace) 100 mg DAILY PO 05/12/21 09:00 I have reviewed the current psychotropics carefully including drug interactions. Risk benefit ratio favors no change other than as noted in my dictated progress note. Diagnosis: Problems: (1) Major depressive disorder, severe (2) Anxiety disorder, unspecified (3) Impulse control disorder, unspecified (4) Chronic pain ESE LEVI MD May 12, 2021 08:42
--- NOTE | 2021-05-12 09:02 | PDOC ---
Exam Note: Josef Note: Late entry for 05/11/2021. Please also refer to the separate dictated note~for this date of service dictated separately. Discussed the patient with Nursing staff reviewed the chart.~Reviewed interim history and current functioning. Reviewed vital signs,~Labs/ Radiology~and current medications noted below. Continue current treatment with the changes noted in the dictated addendum note Assessment: Vital Signs/I&O: Vital Signs Date Time Temp Pulse Resp B/P (MAP) Pulse Ox O2 Delivery O2 Flow Rate FiO2 05/12/21 05:53 96.9 82 20 112/77 (89) 97 05/11/21 06:05 Room Air 05/07/21 06:23 2.0 I & O 05/11/21 05/11/21 05/12/21 15:00 23:00 07:00 Intake Total 960 ml 720 ml Balance 960 ml 720 ml Labs: Laboratory Tests Test 05/11/21 11:50 05/11/21 17:19 05/11/21 19:28 05/12/21 07:45 Glucose (Fingerstick) 185 mg/dL (70-99) H 153 mg/dL (70-99) H 174 mg/dL (70-99) H 116 mg/dL (70-99) H Current Medications: Meds: Laboratory Tests Test 05/11/21 11:50 05/11/21 17:19 05/11/21 19:28 05/12/21 07:45 Glucose (Fingerstick) 185 mg/dL 153 mg/dL 174 mg/dL 116 mg/dL Current Medications Medications (Trade) Dose Ordered Sig/Nicky Route PRN Reason Start Time Stop Time Status Last Admin Dose Admin Acetaminophen (Tylenol) 650 mg PRN Q6HRS PRN PO MILD PAIN / TEMP > 100.3'F 04/25/21 12:15 04/25/21 14:18 DC Multi-Ingredient Ointment (Analgesic Josephine) 1 neelima PRN QID PRN TP MUSCLE PAIN 04/25/21 12:15 05/01/21 16:28 Al Hydroxide/Mg Hydroxide (Mylanta Plus Xs) 15 ml PRN AFTMEALHC PRN PO DYSPEPSIA 04/25/21 12:15 04/26/21 10:24 DC Magnesium Hydroxide (Milk Of Magnesia) 2,400 mg PRN QHS PRN PO 2nd choice CONSTIPATION 04/25/21 12:15 04/26/21 10:24 DC Acetaminophen (Tylenol) 1,000 mg TID PO 04/25/21 14:00 04/26/21 10:24 DC 04/26/21 08:36 Aspirin (Aspirin Chewable) 81 mg DAILY PO 04/26/21 09:00 05/11/21 08:48 Bisacodyl (Dulcolax Tab) 10 mg PRN BID PRN PO 3rd choice CONSTIPATION 04/25/21 13:45 04/26/21 10:24 DC Bisacodyl (Dulcolax Supp) 10 mg PRN DAILY PRN RC 4th choice CONSTIPATION 04/25/21 13:45 04/26/21 10:24 DC Clopidogrel Bisulfate (Plavix) 75 mg DAILY PO 04/26/21 09:00 05/11/21 08:48 Duloxetine HCl (Cymbalta) 60 mg DAILY PO 04/26/21 09:00 04/27/21 20:03 DC 04/27/21 09:21 Guaifenesin (Robitussin) 200 mg PRN Q4HRS PRN PO COUGH 04/25/21 13:45 04/26/21 10:24 DC Hydralazine HCl (Apresoline) 25 mg TID PO 04/25/21 14:00 04/26/21 10:24 DC 04/26/21 08:34 Hydrocortisone (Proctosol-Hc) 1 neelima BID RC 04/25/21 21:00 04/28/21 11:07 DC 04/27/21 09:00 Lidocaine (Lidoderm) 1 patch DAILY TP 04/25/21 18:00 05/07/21 16:12 DC 05/07/21 08:22 Metolazone (Zaroxolyn) 2.5 mg QODAY PO 04/26/21 09:00 04/26/21 10:24 DC 04/26/21 08:34 Nystatin (Nystop) 1 neelima BID TP 04/25/21 21:00 04/26/21 10:24 DC 04/26/21 08:43 Polyethylene Glycol (miraLAX) 17 gm PRN DAILY PRN PO 1st choice CONSTIPATION 04/25/21 13:45 05/04/21 13:02 Potassium Chloride (Klor-Con) 30 meq DAILY PO 04/26/21 09:00 05/11/21 08:48 Sennosides (Senna) 8.6 mg PRN QHS PRN PO constipation 04/25/21 13:45 04/26/21 10:24 DC Simethicone (Gas-X) 80 mg PRN BID PRN PO gas 04/25/21 13:45 04/26/21 10:24 DC Spironolactone (Aldactone) 25 mg DAILY PO 04/26/21 09:00 04/26/21 10:24 DC 04/26/21 08:34 Tramadol HCl (Ultram) 100 mg PRN Q4HRS PRN PO PAIN 04/25/21 13:45 04/27/21 10:01 DC 04/27/21 06:06 Trazodone HCl (Desyrel) 200 mg HS PO 04/25/21 21:00 05/11/21 20:06 Non-Formulary Medication (Arginine/ Glutamine/Calcium Hmb (Stephen Packet)) 1 each BID PO 04/25/21 21:00 04/25/21 15:06 DC Atorvastatin Calcium (Lipitor) 80 mg QHS PO 04/25/21 21:00 05/11/21 20:06 Bumetanide (Bumex) 2 mg DAILY PO 04/26/21 09:00 04/30/21 10:39 DC 04/30/21 08:57 Al Hydroxide/Mg Hydroxide (Mylanta Plus Xs) 30 ml PRN Q12HR PRN PO DYSPEPSIA 04/25/21 14:45 04/26/21 10:24 DC 04/26/21 01:37 Carvedilol (Coreg) 37.5 mg BID PO 04/25/21 21:00 05/11/21 20:06 Cyclobenzaprine HCl (Flexeril) 5 mg PRN BID PRN PO MUSCLE SPASMS 04/25/21 14:45 04/26/21 10:24 DC Insulin Human Lispro (HumaLOG) 8 units TIDBFRMEAL SQ 04/25/21 16:30 05/09/21 13:03 Insulin Glargine (Lantus Syringe) 48 unit QHS SQ 04/25/21 21:00 05/10/21 16:26 DC 05/07/21 21:12 Loperamide HCl (Imodium) 2 mg PRN Q1HR PRN PO severe DIARRHEA 04/25/21 15:00 04/26/21 10:24 DC Loperamide HCl (Imodium) 2 mg PRN Q6HRS PRN PO MILD-MOD DIARRHEA 04/25/21 15:15 04/26/21 10:24 DC Melatonin (Melatonin) 9 mg QHS PO 04/25/21 21:00 04/26/21 10:24 DC 04/25/21 21:29 Non-Formulary Medication (Menthol/Zinc Oxide (Calmoseptine Ointment)) 3.5 gm BID TP 04/25/21 21:00 04/25/21 14:56 DC Multi-Ingred Cream/Lotion/Oil/ Oint (Hydrocerin) 1 neelima BID TP 04/25/21 21:00 04/26/21 10:24 DC 04/26/21 08:40 Multivitamins/ Calcium (Thera-M Plus) 1 tab DAILY PO 04/26/21 09:00 04/26/21 10:24 DC 04/26/21 08:34 Phenyleph/Shark Oil/Min Oil/Petrol (Preparation H) 1 neelima PRN Q12HR PRN RC RECTAL PAIN 04/25/21 15:00 04/26/21 10:24 DC Linagliptin (Tradjenta) 5 mg DAILY PO 04/26/21 09:00 05/11/21 08:48 Saliva Substitute (Biotene Moisturizing Mouth) 1 spray PRN Q1HR PRN PO DRY MOUTH 04/25/21 15:15 Duloxetine HCl (Cymbalta) 30 mg DAILY PO 04/27/21 09:00 04/27/21 07:48 DC Oxycodone/ Acetaminophen (Percocet 10/325) 1 tab PRN Q6HRS PRN PO MOD-SEV PAIN 04/27/21 10:00 05/11/21 20:08 Duloxetine HCl (Cymbalta) 90 mg DAILY PO 04/28/21 09:00 05/11/21 08:47 Hydrocortisone (Proctosol-Hc) 1 neelima PRN BID PRN RC RECTAL PAIN 04/28/21 21:00 Aripiprazole (Abilify) 2.5 mg DAILY PO 04/29/21 09:00 04/29/21 20:16 DC 04/29/21 09:23 Aripiprazole (Abilify) 5 mg DAILY PO 04/30/21 09:00 05/11/21 08:48 Acetaminophen (Tylenol) 1,000 mg PRN Q6HRS PRN PO MILD PAIN 1-3 05/02/21 11:00 05/04/21 06:30 Al Hydroxide/Mg Hydroxide (Mylanta Plus Xs) 30 ml PRN AFTMEALHC PRN PO DYSPEPSIA 05/03/21 10:45 05/10/21 18:29 Lidocaine (Lidoderm) 2 patch DAILY TP 05/07/21 16:15 05/11/21 08:49 Miscellaneous (Lidoderm Patch Removal) 1 ea QHS MC 05/07/21 21:00 05/10/21 19:51 Glucose (Insta-Glucose) 15 gm PRN Q15MIN PRN PO LOW BLOOD SUGAR 05/09/21 18:00 Melatonin (Melatonin) 3 mg PRN QHS PRN PO INSOMNIA 05/09/21 21:00 05/10/21 03:08 DC Melatonin (Melatonin) 3 mg HS PO 05/10/21 21:00 05/11/21 20:19 DC 05/11/21 20:06 Insulin Glargine (Lantus Syringe) 40 unit QHS SQ 05/10/21 21:00 05/11/21 20:11 Melatonin (Melatonin) 6 mg HS PO 05/12/21 21:00 Docusate Sodium (Colace) 100 mg DAILY PO 05/12/21 09:00 I have reviewed the current psychotropics carefully including drug interactions. Risk benefit ratio favors no change other than as noted in my dictated progress note. Diagnosis: Problems: (1) Impulse control disorder, unspecified (2) Anxiety disorder, unspecified (3) Major depressive disorder, recurrent, severe with psychotic features (4) Chronic pain ESE LEVI MD May 12, 2021 09:02
[2021-05-12] MEDS: ARIPiprazole 5 MG TABLET PO SCH (09:07)
[2021-05-12] MEDS: ASPIRIN CHEWABLE 81 MG TABLET. PO SCH (09:07)
[2021-05-12] MEDS: CLOPIDOGREL BISULFATE 75 MG TABLET PO SCH (09:07)
[2021-05-12] MEDS: LINAGLIPTIN 5 MG TABLET PO SCH (09:07)
[2021-05-12] MEDS: CARVEDILOL 12.5 MG TABLET PO SCH ×2 (09:07→20:12)
[2021-05-12] MEDS: POTASSIUM CHLORIDE 10 MEQ TABLET.ER. PO SCH (09:07)
[2021-05-12] MEDS: DULoxetine HCL 30 MG CAPSULE.DR PO SCH (09:07)
[2021-05-12] MEDS: DOCUSATE SODIUM 100 MG CAPSULE PO SCH (09:08)
[2021-05-12] MEDS: oxyCODONE/APAP 10/325 1 TAB TABLET PO PRN ×2 (09:08→20:14)
[2021-05-12] MEDS: LIDOCAINE (700MG/PATCH) PATCH. TP SCH (09:08)
--- NOTE | 2021-05-12 09:44 | NUR ---
Nursing note: Pt in day room at time of AM med pass. He is pleasant, med compliant, and cooperative. He c/o pain 04/20 and requested PRN. PRN administered with AM meds. He is currently in the day room watching TV. Will continue to monitor.
--- NOTE | 2021-05-12 11:58 | NUR ---
WEEKLY ACTIVITY THERAPY NOTE Date of Admission:04/25/21 Date of AT Assessment: 04/28 Precipitating behaviors that initiated intake and admission:Anxious, labile mood, grandiose, depressed, stating he wants to give up, expressing self harm thoughts, hitting head with hands Goal aimed: increase socialization and self-esteem development Initial Goal: Pt will participate in at least five Activity Therapy session per week Weekly progress towards goal: exceeded, 03/16 Group participation level: 1 min, 4 mod, 4 full Weekly highlights: Halloween word scramble Wednesday, discussed comfort zones Wednesday, answered and discussed would you rather questions and exercises with encouragement Wednesday, answered difficult Halloween trivia , made Halloween craft and accepted a Halloween snack during Mash group Wednesday Behaviors observed: attempts to take over discussion at times but is redirectable, dismisses challenges/goal setting Plan: change goal to:Pt will participate in at all Activity Therapy session offered. Beneficial adaptations: encouragement, redirection
[2021-05-12 15:47] VITALS: BP 125/78
[2021-05-12] MEDS: traZODone 100 MG TABLET. PO SCH (20:11)
[2021-05-12] MEDS: ATORVASTATIN CALCIUM 20 MG TABLET PO SCH (20:11)
[2021-05-12] MEDS: PATCH REMOVAL. MC SCH (20:12)
[2021-05-12] MEDS: MELATONIN 3 MG TABLET PO SCH (20:14)
[2021-05-12] MEDS: INSULIN GLARGINE SYRINGE. SQ SCH (20:15)
--- NOTE | 2021-05-12 21:44 | PDOC ---
Exam Note: Josef Note: Please also refer to the separate dictated note~for this date of service dictated separately.~Patient seen individually. Discussed the patient with Nursing staff reviewed the chart.~Reviewed interim history and current functioning. Reviewed vital signs,~Labs/ Radiology~and current medications noted below. Continue current treatment with the changes noted in the dictated addendum note Assessment: Vital Signs/I&O: Vital Signs Date Time Temp Pulse Resp B/P (MAP) Pulse Ox O2 Delivery O2 Flow Rate FiO2 05/12/21 20:12 82 125/78 05/12/21 15:47 97.5 20 94 05/11/21 06:05 Room Air 05/07/21 06:23 2.0 I & O 05/11/21 05/11/21 05/12/21 15:00 23:00 07:00 Intake Total 960 ml 720 ml Balance 960 ml 720 ml Labs: Laboratory Tests Test 05/12/21 07:45 05/12/21 11:24 05/12/21 16:31 05/12/21 19:44 Glucose (Fingerstick) 116 mg/dL (70-99) H 105 mg/dL (70-99) H 131 mg/dL (70-99) H 165 mg/dL (70-99) H Current Medications: Meds: Laboratory Tests Test 05/12/21 07:45 05/12/21 11:24 05/12/21 16:31 05/12/21 19:44 Glucose (Fingerstick) 116 mg/dL 105 mg/dL 131 mg/dL 165 mg/dL Current Medications Medications (Trade) Dose Ordered Sig/Nicky Route PRN Reason Start Time Stop Time Status Last Admin Dose Admin Acetaminophen (Tylenol) 650 mg PRN Q6HRS PRN PO MILD PAIN / TEMP > 100.3'F 04/25/21 12:15 04/25/21 14:18 DC Multi-Ingredient Ointment (Analgesic [place]) 1 neelima PRN QID PRN TP MUSCLE PAIN 04/25/21 12:15 05/01/21 16:28 Al Hydroxide/Mg Hydroxide (Mylanta Plus Xs) 15 ml PRN AFTMEALHC PRN PO DYSPEPSIA 04/25/21 12:15 04/26/21 10:24 DC Magnesium Hydroxide (Milk Of Magnesia) 2,400 mg PRN QHS PRN PO 2nd choice CONSTIPATION 04/25/21 12:15 04/26/21 10:24 DC Acetaminophen (Tylenol) 1,000 mg TID PO 04/25/21 14:00 04/26/21 10:24 DC 04/26/21 08:36 Aspirin (Aspirin Chewable) 81 mg DAILY PO 04/26/21 09:00 05/12/21 09:07 Bisacodyl (Dulcolax Tab) 10 mg PRN BID PRN PO 3rd choice CONSTIPATION 04/25/21 13:45 04/26/21 10:24 DC Bisacodyl (Dulcolax Supp) 10 mg PRN DAILY PRN RC 4th choice CONSTIPATION 04/25/21 13:45 04/26/21 10:24 DC Clopidogrel Bisulfate (Plavix) 75 mg DAILY PO 04/26/21 09:00 05/12/21 09:07 Duloxetine HCl (Cymbalta) 60 mg DAILY PO 04/26/21 09:00 04/27/21 20:03 DC 04/27/21 09:21 Guaifenesin (Robitussin) 200 mg PRN Q4HRS PRN PO COUGH 04/25/21 13:45 04/26/21 10:24 DC Hydralazine HCl (Apresoline) 25 mg TID PO 04/25/21 14:00 04/26/21 10:24 DC 04/26/21 08:34 Hydrocortisone (Proctosol-Hc) 1 neelima BID RC 04/25/21 21:00 04/28/21 11:07 DC 04/27/21 09:00 Lidocaine (Lidoderm) 1 patch DAILY TP 04/25/21 18:00 05/07/21 16:12 DC 05/07/21 08:22 Metolazone (Zaroxolyn) 2.5 mg QODAY PO 04/26/21 09:00 04/26/21 10:24 DC 04/26/21 08:34 Nystatin (Nystop) 1 neelima BID TP 04/25/21 21:00 04/26/21 10:24 DC 04/26/21 08:43 Polyethylene Glycol (miraLAX) 17 gm PRN DAILY PRN PO 1st choice CONSTIPATION 04/25/21 13:45 05/04/21 13:02 Potassium Chloride (Klor-Con) 30 meq DAILY PO 04/26/21 09:00 05/12/21 09:07 Sennosides (Senna) 8.6 mg PRN QHS PRN PO constipation 04/25/21 13:45 04/26/21 10:24 DC Simethicone (Gas-X) 80 mg PRN BID PRN PO gas 04/25/21 13:45 04/26/21 10:24 DC Spironolactone (Aldactone) 25 mg DAILY PO 04/26/21 09:00 04/26/21 10:24 DC 04/26/21 08:34 Tramadol HCl (Ultram) 100 mg PRN Q4HRS PRN PO PAIN 04/25/21 13:45 04/27/21 10:01 DC 04/27/21 06:06 Trazodone HCl (Desyrel) 200 mg HS PO 04/25/21 21:00 05/12/21 20:11 Non-Formulary Medication (Arginine/ Glutamine/Calcium Hmb (Stephen Packet)) 1 each BID PO 04/25/21 21:00 04/25/21 15:06 DC Atorvastatin Calcium (Lipitor) 80 mg QHS PO 04/25/21 21:00 05/12/21 20:11 Bumetanide (Bumex) 2 mg DAILY PO 04/26/21 09:00 04/30/21 10:39 DC 04/30/21 08:57 Al Hydroxide/Mg Hydroxide (Mylanta Plus Xs) 30 ml PRN Q12HR PRN PO DYSPEPSIA 04/25/21 14:45 04/26/21 10:24 DC 04/26/21 01:37 Carvedilol (Coreg) 37.5 mg BID PO 04/25/21 21:00 05/12/21 20:12 Cyclobenzaprine HCl (Flexeril) 5 mg PRN BID PRN PO MUSCLE SPASMS 04/25/21 14:45 04/26/21 10:24 DC Insulin Human Lispro (HumaLOG) 8 units TIDBFRMEAL SQ 04/25/21 16:30 05/09/21 13:03 Insulin Glargine (Lantus Syringe) 48 unit QHS SQ 04/25/21 21:00 05/10/21 16:26 DC 05/07/21 21:12 Loperamide HCl (Imodium) 2 mg PRN Q1HR PRN PO severe DIARRHEA 04/25/21 15:00 04/26/21 10:24 DC Loperamide HCl (Imodium) 2 mg PRN Q6HRS PRN PO MILD-MOD DIARRHEA 04/25/21 15:15 04/26/21 10:24 DC Melatonin (Melatonin) 9 mg QHS PO 04/25/21 21:00 04/26/21 10:24 DC 04/25/21 21:29 Non-Formulary Medication (Menthol/Zinc Oxide (Calmoseptine Ointment)) 3.5 gm BID TP 04/25/21 21:00 04/25/21 14:56 DC Multi-Ingred Cream/Lotion/Oil/ Oint (Hydrocerin) 1 neelima BID TP 04/25/21 21:00 04/26/21 10:24 DC 04/26/21 08:40 Multivitamins/ Calcium (Thera-M Plus) 1 tab DAILY PO 04/26/21 09:00 04/26/21 10:24 DC 04/26/21 08:34 Phenyleph/Shark Oil/Min Oil/Petrol (Preparation H) 1 neelima PRN Q12HR PRN RC RECTAL PAIN 04/25/21 15:00 04/26/21 10:24 DC Linagliptin (Tradjenta) 5 mg DAILY PO 04/26/21 09:00 05/12/21 09:07 Saliva Substitute (Biotene Moisturizing Mouth) 1 spray PRN Q1HR PRN PO DRY MOUTH 04/25/21 15:15 Duloxetine HCl (Cymbalta) 30 mg DAILY PO 04/27/21 09:00 04/27/21 07:48 DC Oxycodone/ Acetaminophen (Percocet 10/325) 1 tab PRN Q6HRS PRN PO MOD-SEV PAIN 04/27/21 10:00 05/12/21 20:14 Duloxetine HCl (Cymbalta) 90 mg DAILY PO 04/28/21 09:00 05/12/21 09:07 Hydrocortisone (Proctosol-Hc) 1 neelima PRN BID PRN RC RECTAL PAIN 04/28/21 21:00 Aripiprazole (Abilify) 2.5 mg DAILY PO 04/29/21 09:00 04/29/21 20:16 DC 04/29/21 09:23 Aripiprazole (Abilify) 5 mg DAILY PO 04/30/21 09:00 05/12/21 12:03 DC 05/12/21 09:07 Acetaminophen (Tylenol) 1,000 mg PRN Q6HRS PRN PO MILD PAIN 1-3 05/02/21 11:00 05/04/21 06:30 Al Hydroxide/Mg Hydroxide (Mylanta Plus Xs) 30 ml PRN AFTMEALHC PRN PO DYSPEPSIA 05/03/21 10:45 05/10/21 18:29 Lidocaine (Lidoderm) 2 patch DAILY TP 05/07/21 16:15 05/12/21 09:08 Miscellaneous (Lidoderm Patch Removal) 1 ea QHS MC 05/07/21 21:00 05/10/21 19:51 Glucose (Insta-Glucose) 15 gm PRN Q15MIN PRN PO LOW BLOOD SUGAR 05/09/21 18:00 Melatonin (Melatonin) 3 mg PRN QHS PRN PO INSOMNIA 05/09/21 21:00 05/10/21 03:08 DC Melatonin (Melatonin) 3 mg HS PO 05/10/21 21:00 05/11/21 20:19 DC 05/11/21 20:06 Insulin Glargine (Lantus Syringe) 40 unit QHS SQ 05/10/21 21:00 05/12/21 20:15 Melatonin (Melatonin) 6 mg HS PO 05/12/21 21:00 05/12/21 20:14 Docusate Sodium (Colace) 100 mg DAILY PO 05/12/21 09:00 05/12/21 09:08 Aripiprazole (Abilify) 7.5 mg DAILY PO 05/13/21 09:00 Current Medications Medications (Trade) Dose Ordered Sig/Nicky Route PRN Reason Start Time Stop Time Status Last Admin Dose Admin Melatonin (Melatonin) 6 mg HS PO 05/12/21 21:00 05/12/21 20:14 Docusate Sodium (Colace) 100 mg DAILY PO 05/12/21 09:00 05/12/21 09:08 I have reviewed the current psychotropics carefully including drug interactions. Risk benefit ratio favors no change other than as noted in my dictated progress note. Diagnosis: Problems: (1) Major depressive disorder, recurrent, severe with psychotic features (2) Anxiety disorder, unspecified (3) Impulse control disorder, unspecified (4) Chronic pain ESE LEVI MD May 12, 2021 21:44
--- NOTE | 2021-05-12 21:58 | NUR ---
Pt sitting calmly in the group room watching the [employer] game. Compliant with whole medications. No behaviors this evening.
[2021-05-13] MEDS: oxyCODONE/APAP 10/325 1 TAB TABLET PO PRN ×2 (04:46→19:36)
[2021-05-13 05:36] VITALS: BP 114/68
[2021-05-13] MEDS: INSULIN LISPRO 300 UNITS/3 ML VIAL. SQ SCH ×3 (07:30→17:21)
[2021-05-13] MEDS: CARVEDILOL 12.5 MG TABLET PO SCH ×2 (08:04→19:34)
[2021-05-13] MEDS: LINAGLIPTIN 5 MG TABLET PO SCH (08:04)
[2021-05-13] MEDS: POTASSIUM CHLORIDE 10 MEQ TABLET.ER. PO SCH (08:04)
[2021-05-13] MEDS: DULoxetine HCL 30 MG CAPSULE.DR PO SCH (08:04)
[2021-05-13] MEDS: ASPIRIN CHEWABLE 81 MG TABLET. PO SCH (08:04)
[2021-05-13] MEDS: CLOPIDOGREL BISULFATE 75 MG TABLET PO SCH (08:04)
[2021-05-13] MEDS: DOCUSATE SODIUM 100 MG CAPSULE PO SCH (08:05)
[2021-05-13] MEDS: ARIPiprazole 5 MG TABLET PO SCH (08:05)
[2021-05-13] MEDS: LIDOCAINE (700MG/PATCH) PATCH. TP SCH (08:07)
--- NOTE | 2021-05-13 08:33 | PDOC ---
Exam Note: Josef Note: This note is a late entry for 05/12/2021 covers elements not covered in my initial note. Subjective: The patient was reviewed at treatment team meeting individually in the morning on 05/12/2021 with Carmen Gutierrez, Shiloh Dias, and Chen Natarajan (social media director), Kera, activity therapy and Susi MODI, discussed and reviewed the chart. The patient slept 6 hours previous night. Appetite is poor about 10%. Sleeping average 5 hours. Overall he is doing better, less dramatic, less anxious but last evening he put himself on the floor. He said he slid out of the wheelchair but in fact he was lying comfortably on the floor with a pillow under his head. He has attended 9 groups in the past one week. At one point he was found kissing the hand of one of the other demented female patients but no other inappropriate sexual behaviors noted. Reviewed further history from his son which indicated [place] $300,000 house for a female friend of his and her same sex partner including 2 new cars for them. Apparently the son was wondering if he could take conservatorship to be able to manage the patients money more prudently. We discussed psychological testing may have to be pursued as an outpatient for this to happen. I met with him in the TV lounge area. Review of Systems: Ambulation impaired in wheelchair. No CV, , pulmonary, eye system symptoms on review. Mental Status Exam: The patient is reasonably oriented. Speech coherent. Abstraction fair. Computation impaired. Language function intact. Attention span fair. Mood and affect remains somewhat anxious, labile but improved. No suicidal or homicidal ideation. Laboratory Data: Reviewed. Impression: Major depressive disorder with psychotic features. Anxiety disorder, unspecified. Impulse control disorder unspecified. Plan: No change from initial note. On 05/11, when I reviewed the patient with Isidra MODI, he had slept just 3-1/4 hours previous night. I then increased the melatonin from 3 mg h.s. to 6 mg h.s. and we will continue with the current dosage together with trazodone, Cymbalta, and Abilify 5 mg a day. Reviewed drug interactions and risk-benefit ratio. We will adjust further as clinically indicated. Assessment: Vital Signs/I&O: Vital Signs Date Time Temp Pulse Resp B/P (MAP) Pulse Ox O2 Delivery O2 Flow Rate FiO2 05/13/21 08:04 94 114/68 05/13/21 05:36 97.2 18 98 05/11/21 06:05 Room Air I & O 05/12/21 05/12/21 05/13/21 15:00 23:00 07:00 Intake Total 960 ml 960 ml Balance 960 ml 960 ml Labs: Laboratory Tests Test 05/12/21 11:24 05/12/21 16:31 05/12/21 19:44 05/13/21 07:31 Glucose (Fingerstick) 105 mg/dL (70-99) H 131 mg/dL (70-99) H 165 mg/dL (70-99) H 114 mg/dL (70-99) H Current Medications: Meds: Laboratory Tests Test 05/12/21 11:24 05/12/21 16:31 05/12/21 19:44 05/13/21 07:31 Glucose (Fingerstick) 105 mg/dL 131 mg/dL 165 mg/dL 114 mg/dL Current Medications Medications (Trade) Dose Ordered Sig/Nicky Route PRN Reason Start Time Stop Time Status Last Admin Dose Admin Acetaminophen (Tylenol) 650 mg PRN Q6HRS PRN PO MILD PAIN / TEMP > 100.3'F 04/25/21 12:15 04/25/21 14:18 DC Multi-Ingredient Ointment (Analgesic [place]) 1 neelima PRN QID PRN TP MUSCLE PAIN 04/25/21 12:15 05/01/21 16:28 Al Hydroxide/Mg Hydroxide (Mylanta Plus Xs) 15 ml PRN AFTMEALHC PRN PO DYSPEPSIA 04/25/21 12:15 04/26/21 10:24 DC Magnesium Hydroxide (Milk Of Magnesia) 2,400 mg PRN QHS PRN PO 2nd choice CONSTIPATION 04/25/21 12:15 04/26/21 10:24 DC Acetaminophen (Tylenol) 1,000 mg TID PO 04/25/21 14:00 04/26/21 10:24 DC 04/26/21 08:36 Aspirin (Aspirin Chewable) 81 mg DAILY PO 04/26/21 09:00 05/13/21 08:04 Bisacodyl (Dulcolax Tab) 10 mg PRN BID PRN PO 3rd choice CONSTIPATION 04/25/21 13:45 04/26/21 10:24 DC Bisacodyl (Dulcolax Supp) 10 mg PRN DAILY PRN RC 4th choice CONSTIPATION 04/25/21 13:45 04/26/21 10:24 DC Clopidogrel Bisulfate (Plavix) 75 mg DAILY PO 04/26/21 09:00 05/13/21 08:04 Duloxetine HCl (Cymbalta) 60 mg DAILY PO 04/26/21 09:00 04/27/21 20:03 DC 04/27/21 09:21 Guaifenesin (Robitussin) 200 mg PRN Q4HRS PRN PO COUGH 04/25/21 13:45 04/26/21 10:24 DC Hydralazine HCl (Apresoline) 25 mg TID PO 04/25/21 14:00 04/26/21 10:24 DC 04/26/21 08:34 Hydrocortisone (Proctosol-Hc) 1 neelima BID RC 04/25/21 21:00 04/28/21 11:07 DC 04/27/21 09:00 Lidocaine (Lidoderm) 1 patch DAILY TP 04/25/21 18:00 05/07/21 16:12 DC 05/07/21 08:22 Metolazone (Zaroxolyn) 2.5 mg QODAY PO 04/26/21 09:00 04/26/21 10:24 DC 04/26/21 08:34 Nystatin (Nystop) 1 neelima BID TP 04/25/21 21:00 04/26/21 10:24 DC 04/26/21 08:43 Polyethylene Glycol (miraLAX) 17 gm PRN DAILY PRN PO 1st choice CONSTIPATION 04/25/21 13:45 05/04/21 13:02 Potassium Chloride (Klor-Con) 30 meq DAILY PO 04/26/21 09:00 05/13/21 08:04 Sennosides (Senna) 8.6 mg PRN QHS PRN PO constipation 04/25/21 13:45 04/26/21 10:24 DC Simethicone (Gas-X) 80 mg PRN BID PRN PO gas 04/25/21 13:45 04/26/21 10:24 DC Spironolactone (Aldactone) 25 mg DAILY PO 04/26/21 09:00 04/26/21 10:24 DC 04/26/21 08:34 Tramadol HCl (Ultram) 100 mg PRN Q4HRS PRN PO PAIN 04/25/21 13:45 04/27/21 10:01 DC 04/27/21 06:06 Trazodone HCl (Desyrel) 200 mg HS PO 04/25/21 21:00 05/12/21 20:11 Non-Formulary Medication (Arginine/ Glutamine/Calcium Hmb (Stephen Packet)) 1 each BID PO 04/25/21 21:00 04/25/21 15:06 DC Atorvastatin Calcium (Lipitor) 80 mg QHS PO 04/25/21 21:00 05/12/21 20:11 Bumetanide (Bumex) 2 mg DAILY PO 04/26/21 09:00 04/30/21 10:39 DC 04/30/21 08:57 Al Hydroxide/Mg Hydroxide (Mylanta Plus Xs) 30 ml PRN Q12HR PRN PO DYSPEPSIA 04/25/21 14:45 04/26/21 10:24 DC 04/26/21 01:37 Carvedilol (Coreg) 37.5 mg BID PO 04/25/21 21:00 05/13/21 08:04 Cyclobenzaprine HCl (Flexeril) 5 mg PRN BID PRN PO MUSCLE SPASMS 04/25/21 14:45 04/26/21 10:24 DC Insulin Human Lispro (HumaLOG) 8 units TIDBFRMEAL SQ 04/25/21 16:30 05/09/21 13:03 Insulin Glargine (Lantus Syringe) 48 unit QHS SQ 04/25/21 21:00 05/10/21 16:26 DC 05/07/21 21:12 Loperamide HCl (Imodium) 2 mg PRN Q1HR PRN PO severe DIARRHEA 04/25/21 15:00 04/26/21 10:24 DC Loperamide HCl (Imodium) 2 mg PRN Q6HRS PRN PO MILD-MOD DIARRHEA 04/25/21 15:15 04/26/21 10:24 DC Melatonin (Melatonin) 9 mg QHS PO 04/25/21 21:00 04/26/21 10:24 DC 04/25/21 21:29 Non-Formulary Medication (Menthol/Zinc Oxide (Calmoseptine Ointment)) 3.5 gm BID TP 04/25/21 21:00 04/25/21 14:56 DC Multi-Ingred Cream/Lotion/Oil/ Oint (Hydrocerin) 1 neelima BID TP 04/25/21 21:00 04/26/21 10:24 DC 04/26/21 08:40 Multivitamins/ Calcium (Thera-M Plus) 1 tab DAILY PO 04/26/21 09:00 04/26/21 10:24 DC 04/26/21 08:34 Phenyleph/Shark Oil/Min Oil/Petrol (Preparation H) 1 neelima PRN Q12HR PRN RC RECTAL PAIN 04/25/21 15:00 04/26/21 10:24 DC Linagliptin (Tradjenta) 5 mg DAILY PO 04/26/21 09:00 05/13/21 08:04 Saliva Substitute (Biotene Moisturizing Mouth) 1 spray PRN Q1HR PRN PO DRY MOUTH 04/25/21 15:15 Duloxetine HCl (Cymbalta) 30 mg DAILY PO 04/27/21 09:00 04/27/21 07:48 DC Oxycodone/ Acetaminophen (Percocet 10/325) 1 tab PRN Q6HRS PRN PO MOD-SEV PAIN 04/27/21 10:00 05/13/21 04:46 Duloxetine HCl (Cymbalta) 90 mg DAILY PO 04/28/21 09:00 05/13/21 08:04 Hydrocortisone (Proctosol-Hc) 1 neelima PRN BID PRN RC RECTAL PAIN 04/28/21 21:00 Aripiprazole (Abilify) 2.5 mg DAILY PO 04/29/21 09:00 04/29/21 20:16 DC 04/29/21 09:23 Aripiprazole (Abilify) 5 mg DAILY PO 04/30/21 09:00 05/12/21 12:03 DC 05/12/21 09:07 Acetaminophen (Tylenol) 1,000 mg PRN Q6HRS PRN PO MILD PAIN 1-3 05/02/21 11:00 05/04/21 06:30 Al Hydroxide/Mg Hydroxide (Mylanta Plus Xs) 30 ml PRN AFTMEALHC PRN PO DYSPEPSIA 05/03/21 10:45 05/10/21 18:29 Lidocaine (Lidoderm) 2 patch DAILY TP 05/07/21 16:15 05/13/21 08:07 Miscellaneous (Lidoderm Patch Removal) 1 ea QHS MC 05/07/21 21:00 05/10/21 19:51 Glucose (Insta-Glucose) 15 gm PRN Q15MIN PRN PO LOW BLOOD SUGAR 05/09/21 18:00 Melatonin (Melatonin) 3 mg PRN QHS PRN PO INSOMNIA 05/09/21 21:00 05/10/21 03:08 DC Melatonin (Melatonin) 3 mg HS PO 05/10/21 21:00 05/11/21 20:19 DC 05/11/21 20:06 Insulin Glargine (Lantus Syringe) 40 unit QHS SQ 05/10/21 21:00 05/12/21 20:15 Melatonin (Melatonin) 6 mg HS PO 05/12/21 21:00 05/12/21 20:14 Docusate Sodium (Colace) 100 mg DAILY PO 05/12/21 09:00 05/13/21 08:05 Aripiprazole (Abilify) 7.5 mg DAILY PO 05/13/21 09:00 05/13/21 08:05 Current Medications Medications (Trade) Dose Ordered Sig/Nicky Route PRN Reason Start Time Stop Time Status Last Admin Dose Admin Melatonin (Melatonin) 6 mg HS PO 05/12/21 21:00 05/12/21 20:14 Docusate Sodium (Colace) 100 mg DAILY PO 05/12/21 09:00 05/13/21 08:05 Aripiprazole (Abilify) 7.5 mg DAILY PO 05/13/21 09:00 05/13/21 08:05 I have reviewed the current psychotropics carefully including drug interactions. Risk benefit ratio favors no change other than as noted in my dictated progress note. Diagnosis: Problems: (1) Major depressive disorder, recurrent, severe with psychotic features (2) Anxiety disorder, unspecified (3) Impulse control disorder, unspecified (4) Chronic pain ESE LEVI MD May 13, 2021 08:33
--- NOTE | 2021-05-13 08:56 | NUR ---
Wound/Ostomy Care Wound Type/Assessment: Right heel DFU with red hypergranulation and slough, improving in depth. Periwound is reddened and warm. Treatment Recommendations/Plan: Cleanse wound, apply hydrofera blue, cover with ABD and kerlix. Change Q2 days. Heel medix boot at all times Education provided: PU prevention and WC POC, pt v/u of teaching Offloading surface/device: heel medix boot and order WC cushion. Recommended Referrals/Tests: Dr Gandhi will be notified of redness of periwound, photo given to Madiha MODI. Discharge Recommendations for dressings: see above
[2021-05-13 15:41] VITALS: BP 104/68
--- NOTE | 2021-05-13 16:55 | NUR ---
Nsg Note; Increased redness around right heal wound this am as noted by Wound Care this am. Dr Gandhi assessed heal this afternoon, ordered labs for tomorrow am, and a right foot XR 3V for today. Right heal redressed
--- NOTE | 2021-05-13 17:02 | NUR ---
Nsg Note; religiosity noted this afternoon as Silvio was lecturing a peer about god, johan and sikhism. He was persistent but was finally able to be redirected
[2021-05-13] MEDS: MELATONIN 3 MG TABLET PO SCH (19:32)
[2021-05-13] MEDS: traZODone 100 MG TABLET. PO SCH (19:33)
[2021-05-13] MEDS: ATORVASTATIN CALCIUM 20 MG TABLET PO SCH (19:33)
[2021-05-13] MEDS: PATCH REMOVAL. MC SCH (20:19)
--- NOTE | 2021-05-13 21:32 | NUR ---
At approximately 2034 this nurse and SILVESTRE Shea were assisting a patient to transfer from his wheelchair to bed. Patient is a 1-2 person, stand pivot transfer. Tonight, patient stood from wheelchair with staff assistance, when he went to pivot to sit on the bed he started to veer to the left and then weighted. Nurse had been standing to the left of the patient and prevented the fall by easing the patient and then he was eased onto the wheelchair. At that point, this nurse went to get a lift sheet and the guerita to get the patient into the bed. Patient had soiled his pants, staff changed patient into clean brief and gown. Patient compliant with HS meds taken whole.
[2021-05-13] MEDS: INSULIN GLARGINE SYRINGE. SQ SCH (21:50)
--- NOTE | 2021-05-13 22:16 | PDOC ---
Exam Note: Josef Note: Please also refer to the separate dictated note~for this date of service dictated separately.~Patient seen individually. Discussed the patient with Nursing staff reviewed the chart.~Reviewed interim history and current functioning. Reviewed vital signs,~Labs/ Radiology~and current medications noted below. Continue current treatment with the changes noted in the dictated addendum note Assessment: Vital Signs/I&O: Vital Signs Date Time Temp Pulse Resp B/P (MAP) Pulse Ox O2 Delivery O2 Flow Rate FiO2 05/13/21 19:34 86 104/68 05/13/21 15:41 97.2 18 97 05/11/21 06:05 Room Air I & O 05/12/21 05/12/21 05/13/21 15:00 23:00 07:00 Intake Total 960 ml 960 ml Balance 960 ml 960 ml Labs: Laboratory Tests Test 05/13/21 07:31 05/13/21 11:44 05/13/21 17:03 05/13/21 19:10 Glucose (Fingerstick) 114 mg/dL (70-99) H 90 mg/dL (70-99) 148 mg/dL (70-99) H 203 mg/dL (70-99) H Current Medications: Meds: Laboratory Tests Test 05/13/21 07:31 05/13/21 11:44 05/13/21 17:03 05/13/21 19:10 Glucose (Fingerstick) 114 mg/dL 90 mg/dL 148 mg/dL 203 mg/dL Current Medications Medications (Trade) Dose Ordered Sig/Nicky Route PRN Reason Start Time Stop Time Status Last Admin Dose Admin Acetaminophen (Tylenol) 650 mg PRN Q6HRS PRN PO MILD PAIN / TEMP > 100.3'F 04/25/21 12:15 04/25/21 14:18 DC Multi-Ingredient Ointment (Analgesic [place]) 1 neelima PRN QID PRN TP MUSCLE PAIN 04/25/21 12:15 05/01/21 16:28 Al Hydroxide/Mg Hydroxide (Mylanta Plus Xs) 15 ml PRN AFTMEALHC PRN PO DYSPEPSIA 04/25/21 12:15 04/26/21 10:24 DC Magnesium Hydroxide (Milk Of Magnesia) 2,400 mg PRN QHS PRN PO 2nd choice CONSTIPATION 04/25/21 12:15 04/26/21 10:24 DC Acetaminophen (Tylenol) 1,000 mg TID PO 04/25/21 14:00 04/26/21 10:24 DC 04/26/21 08:36 Aspirin (Aspirin Chewable) 81 mg DAILY PO 04/26/21 09:00 05/13/21 08:04 Bisacodyl (Dulcolax Tab) 10 mg PRN BID PRN PO 3rd choice CONSTIPATION 04/25/21 13:45 04/26/21 10:24 DC Bisacodyl (Dulcolax Supp) 10 mg PRN DAILY PRN RC 4th choice CONSTIPATION 04/25/21 13:45 04/26/21 10:24 DC Clopidogrel Bisulfate (Plavix) 75 mg DAILY PO 04/26/21 09:00 05/13/21 08:04 Duloxetine HCl (Cymbalta) 60 mg DAILY PO 04/26/21 09:00 04/27/21 20:03 DC 04/27/21 09:21 Guaifenesin (Robitussin) 200 mg PRN Q4HRS PRN PO COUGH 04/25/21 13:45 04/26/21 10:24 DC Hydralazine HCl (Apresoline) 25 mg TID PO 04/25/21 14:00 04/26/21 10:24 DC 04/26/21 08:34 Hydrocortisone (Proctosol-Hc) 1 neelima BID RC 04/25/21 21:00 04/28/21 11:07 DC 04/27/21 09:00 Lidocaine (Lidoderm) 1 patch DAILY TP 04/25/21 18:00 05/07/21 16:12 DC 05/07/21 08:22 Metolazone (Zaroxolyn) 2.5 mg QODAY PO 04/26/21 09:00 04/26/21 10:24 DC 04/26/21 08:34 Nystatin (Nystop) 1 neelima BID TP 04/25/21 21:00 04/26/21 10:24 DC 04/26/21 08:43 Polyethylene Glycol (miraLAX) 17 gm PRN DAILY PRN PO 1st choice CONSTIPATION 04/25/21 13:45 05/04/21 13:02 Potassium Chloride (Klor-Con) 30 meq DAILY PO 04/26/21 09:00 05/13/21 08:04 Sennosides (Senna) 8.6 mg PRN QHS PRN PO constipation 04/25/21 13:45 04/26/21 10:24 DC Simethicone (Gas-X) 80 mg PRN BID PRN PO gas 04/25/21 13:45 04/26/21 10:24 DC Spironolactone (Aldactone) 25 mg DAILY PO 04/26/21 09:00 04/26/21 10:24 DC 04/26/21 08:34 Tramadol HCl (Ultram) 100 mg PRN Q4HRS PRN PO PAIN 04/25/21 13:45 04/27/21 10:01 DC 04/27/21 06:06 Trazodone HCl (Desyrel) 200 mg HS PO 04/25/21 21:00 05/13/21 19:33 Non-Formulary Medication (Arginine/ Glutamine/Calcium Hmb (Stephen Packet)) 1 each BID PO 04/25/21 21:00 04/25/21 15:06 DC Atorvastatin Calcium (Lipitor) 80 mg QHS PO 04/25/21 21:00 05/13/21 19:33 Bumetanide (Bumex) 2 mg DAILY PO 04/26/21 09:00 04/30/21 10:39 DC 04/30/21 08:57 Al Hydroxide/Mg Hydroxide (Mylanta Plus Xs) 30 ml PRN Q12HR PRN PO DYSPEPSIA 04/25/21 14:45 04/26/21 10:24 DC 04/26/21 01:37 Carvedilol (Coreg) 37.5 mg BID PO 04/25/21 21:00 05/13/21 19:34 Cyclobenzaprine HCl (Flexeril) 5 mg PRN BID PRN PO MUSCLE SPASMS 04/25/21 14:45 04/26/21 10:24 DC Insulin Human Lispro (HumaLOG) 8 units TIDBFRMEAL SQ 04/25/21 16:30 05/09/21 13:03 Insulin Glargine (Lantus Syringe) 48 unit QHS SQ 04/25/21 21:00 05/10/21 16:26 DC 05/07/21 21:12 Loperamide HCl (Imodium) 2 mg PRN Q1HR PRN PO severe DIARRHEA 04/25/21 15:00 04/26/21 10:24 DC Loperamide HCl (Imodium) 2 mg PRN Q6HRS PRN PO MILD-MOD DIARRHEA 04/25/21 15:15 04/26/21 10:24 DC Melatonin (Melatonin) 9 mg QHS PO 04/25/21 21:00 04/26/21 10:24 DC 04/25/21 21:29 Non-Formulary Medication (Menthol/Zinc Oxide (Calmoseptine Ointment)) 3.5 gm BID TP 04/25/21 21:00 04/25/21 14:56 DC Multi-Ingred Cream/Lotion/Oil/ Oint (Hydrocerin) 1 neelima BID TP 04/25/21 21:00 04/26/21 10:24 DC 04/26/21 08:40 Multivitamins/ Calcium (Thera-M Plus) 1 tab DAILY PO 04/26/21 09:00 04/26/21 10:24 DC 04/26/21 08:34 Phenyleph/Shark Oil/Min Oil/Petrol (Preparation H) 1 neelima PRN Q12HR PRN RC RECTAL PAIN 04/25/21 15:00 04/26/21 10:24 DC Linagliptin (Tradjenta) 5 mg DAILY PO 04/26/21 09:00 05/13/21 08:04 Saliva Substitute (Biotene Moisturizing Mouth) 1 spray PRN Q1HR PRN PO DRY MOUTH 04/25/21 15:15 Duloxetine HCl (Cymbalta) 30 mg DAILY PO 04/27/21 09:00 04/27/21 07:48 DC Oxycodone/ Acetaminophen (Percocet 10/325) 1 tab PRN Q6HRS PRN PO MOD-SEV PAIN 04/27/21 10:00 05/13/21 19:36 Duloxetine HCl (Cymbalta) 90 mg DAILY PO 04/28/21 09:00 05/13/21 08:04 Hydrocortisone (Proctosol-Hc) 1 neelima PRN BID PRN RC RECTAL PAIN 04/28/21 21:00 Aripiprazole (Abilify) 2.5 mg DAILY PO 04/29/21 09:00 04/29/21 20:16 DC 04/29/21 09:23 Aripiprazole (Abilify) 5 mg DAILY PO 04/30/21 09:00 05/12/21 12:03 DC 05/12/21 09:07 Acetaminophen (Tylenol) 1,000 mg PRN Q6HRS PRN PO MILD PAIN 1-3 05/02/21 11:00 05/04/21 06:30 Al Hydroxide/Mg Hydroxide (Mylanta Plus Xs) 30 ml PRN AFTMEALHC PRN PO DYSPEPSIA 05/03/21 10:45 05/10/21 18:29 Lidocaine (Lidoderm) 2 patch DAILY TP 05/07/21 16:15 05/13/21 08:07 Miscellaneous (Lidoderm Patch Removal) 1 ea QHS MC 05/07/21 21:00 05/13/21 20:19 Glucose (Insta-Glucose) 15 gm PRN Q15MIN PRN PO LOW BLOOD SUGAR 05/09/21 18:00 Melatonin (Melatonin) 3 mg PRN QHS PRN PO INSOMNIA 05/09/21 21:00 05/10/21 03:08 DC Melatonin (Melatonin) 3 mg HS PO 05/10/21 21:00 05/11/21 20:19 DC 05/11/21 20:06 Insulin Glargine (Lantus Syringe) 40 unit QHS SQ 05/10/21 21:00 05/12/21 20:15 Melatonin (Melatonin) 6 mg HS PO 05/12/21 21:00 05/13/21 19:32 Docusate Sodium (Colace) 100 mg DAILY PO 05/12/21 09:00 05/13/21 08:05 Aripiprazole (Abilify) 7.5 mg DAILY PO 05/13/21 09:00 05/13/21 08:05 Current Medications Medications (Trade) Dose Ordered Sig/Nicky Route PRN Reason Start Time Stop Time Status Last Admin Dose Admin Aripiprazole (Abilify) 7.5 mg DAILY PO 05/13/21 09:00 05/13/21 08:05 I have reviewed the current psychotropics carefully including drug interactions. Risk benefit ratio favors no change other than as noted in my dictated progress note. Diagnosis: Problems: (1) Major depressive disorder, recurrent, severe with psychotic features (2) Anxiety disorder, unspecified (3) Impulse control disorder, unspecified (4) Chronic pain AMITA,MAN M MD May 13, 2021 22:16
--- NOTE | 2021-05-14 00:37 | RAD ---
XR FOOT_RIGHT 3 VIEWS 05/13/2021 5:15 PM INDICATION: Swelling with redness of the right heel COMPARISON: None available. TECHNIQUE: 3 views of the right foot are provided. FINDINGS/ IMPRESSION: No acute fracture or dislocation on the calcaneus. Soft tissue swelling along the heel without subcut aneous gas or osseous erosion. No radiopaque foreign density. Pes planus. 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 Partial osseous fusion of the midfoot ar e noted. Electronically signed by: Linn Fields MD (05/14/2021 12:35 AM) MICHEL
[2021-05-14 05:58] VITALS: BP 127/81
[2021-05-14] MEDS: INSULIN LISPRO 300 UNITS/3 ML VIAL. SQ SCH ×3 (07:30→16:30)
[2021-05-14 07:47] LABS: HEMATOCRIT 38.7 % (39.0-53.0); HEMOGLOBIN 12.6 g/dL (13.0-17.5); RED BLOOD COUNT 4.12 x10^6/uL (4.30-5.70); RED CELL DISTRIBUTION WIDTH 14.1 % (11.5-14.5); WHITE BLOOD COUNT 4.8 x10^3/uL (4.0-11.0)
[2021-05-14 07:59] LABS: ALBUMIN 2.7 g/dL (3.4-5.0); ALBUMIN/GLOBULIN RATIO 0.8 (1.0-1.7); CREATININE 1.2 mg/dL (0.7-1.3); GFR 60.4; POTASSIUM 4.5 mmol/L (3.5-5.1); TOTAL BILIRUBIN 0.4 mg/dL (0.2-1.0); TOTAL PROTEIN 6.3 g/dL (6.4-8.2)
[2021-05-14] MEDS: DULoxetine HCL 30 MG CAPSULE.DR PO SCH (08:58)
[2021-05-14] MEDS: CLOPIDOGREL BISULFATE 75 MG TABLET PO SCH (08:58)
[2021-05-14] MEDS: ASPIRIN CHEWABLE 81 MG TABLET. PO SCH (08:58)
[2021-05-14] MEDS: ARIPiprazole 5 MG TABLET PO SCH (08:59)
[2021-05-14] MEDS: POTASSIUM CHLORIDE 10 MEQ TABLET.ER. PO SCH (08:59)
[2021-05-14] MEDS: LINAGLIPTIN 5 MG TABLET PO SCH (09:00)
[2021-05-14] MEDS: DOCUSATE SODIUM 100 MG CAPSULE PO SCH (09:00)
[2021-05-14] MEDS: LIDOCAINE (700MG/PATCH) PATCH. TP SCH (09:00)
[2021-05-14] MEDS: CARVEDILOL 12.5 MG TABLET PO SCH ×2 (09:00→20:07)
[2021-05-14] MEDS: oxyCODONE/APAP 10/325 1 TAB TABLET PO PRN ×2 (12:16→22:10)
--- NOTE | 2021-05-14 12:28 | NUR ---
Nursing note: Pt in dining room at time of AM med pass and assessment. He is pleasant, med compliant and cooperative. Pt c/o pain that is somewhat relieved by scheduled lidocaine patches. PRN administered at lunch per pt request. He is currently eating his lunch. Will continue to monitor.
[2021-05-14 15:33] VITALS: BP 129/85
[2021-05-14] MEDS: MELATONIN 3 MG TABLET PO SCH (20:06)
[2021-05-14] MEDS: PATCH REMOVAL. MC SCH (20:06)
[2021-05-14] MEDS: ATORVASTATIN CALCIUM 20 MG TABLET PO SCH (20:07)
[2021-05-14] MEDS: traZODone 100 MG TABLET. PO SCH (20:07)
[2021-05-14] MEDS: INSULIN GLARGINE SYRINGE. SQ SCH (20:08)
--- NOTE | 2021-05-14 21:46 | PDOC ---
Exam Note: Josef Note: Information from date of service 05/11/21 and my information from nursing staff for that date and review of labs and interim progress from 05/11/21 was incorporated into the note of 05/12. This note is a late entry for 05/13/2021 covers elements not covered in my initial note. Subjective: The patient was seen individually in the evening of 05/13/2021 with Madiha MODI, discussed and reviewed the chart. The patient slept 5 hours previous night. He has been somewhat hyper-sabianism at times and holding hands of some of the other female demented patients and blessing them and praying with them. Review of Systems: Ambulation impaired in wheelchair. He complains of back pain. No CV, , pulmonary, eye system symptoms on review. Mental Status Exam: The patient is reasonably oriented. Speech coherent has some latency. Abstraction fair. Computation impaired. Language function intact. Attention span short. Mood and affect at times somewhat withdrawn. Laboratory Data: Reviewed. Impression: Major depressive disorder with psychotic features. Anxiety disorder, unspecified. Impulse control disorder unspecified. Plan: No change from initial note. Assessment: Vital Signs/I&O: Vital Signs Date Time Temp Pulse Resp B/P (MAP) Pulse Ox O2 Delivery O2 Flow Rate FiO2 05/14/21 20:07 83 129/85 05/14/21 15:33 97.6 20 93 05/11/21 06:05 Room Air I & O 05/13/21 05/13/21 05/14/21 15:00 23:00 07:00 Intake Total 910 ml 720 ml Balance 910 ml 720 ml Labs: Laboratory Tests Test 05/14/21 06:42 05/14/21 07:24 05/14/21 11:55 05/14/21 16:51 White Blood Count 4.8 x10^3/uL (4.0-11.0) Red Blood Count 4.12 x10^6/uL (4.30-5.70) L Hemoglobin 12.6 g/dL (13.0-17.5) L Hematocrit 38.7 % (39.0-53.0) L Mean Corpuscular Volume 94 fL (79-100) Mean Corpuscular Hemoglobin 31 pg (25-35) Mean Corpuscular Hemoglobin Concent 33 g/dL (31-37) Red Cell Distribution Width 14.1 % (11.5-14.5) Platelet Count 200 x10^3/uL (140-400) Erythrocyte Sedimentation Rate 42 (0-15) H Sodium Level 136 mmol/L (136-145) Potassium Level 4.5 mmol/L (3.5-5.1) Chloride Level 100 mmol/L (98-107) Carbon Dioxide Level 29 mmol/L (21-32) Anion Gap 7 (6-14) Blood Urea Nitrogen 39 mg/dL (8-26) H Creatinine 1.2 mg/dL (0.7-1.3) Estimated GFR (Cockcroft-Gault) 60.4 BUN/Creatinine Ratio 33 (6-20) H Glucose Level 113 mg/dL (70-99) H Calcium Level 9.0 mg/dL (8.5-10.1) Total Bilirubin 0.4 mg/dL (0.2-1.0) Aspartate Amino Transferase (AST) 19 U/L (15-37) Alanine Aminotransferase (ALT) 23 U/L (16-63) Alkaline Phosphatase 66 U/L (46-116) C-Reactive Protein 22.0 mg/L (0-3.3) H Total Protein 6.3 g/dL (6.4-8.2) L Albumin 2.7 g/dL (3.4-5.0) L Albumin/Globulin Ratio 0.8 (1.0-1.7) L Glucose (Fingerstick) 105 mg/dL (70-99) H 99 mg/dL (70-99) 130 mg/dL (70-99) H Test 05/14/21 19:14 Glucose (Fingerstick) 142 mg/dL (70-99) H Current Medications: Meds: Laboratory Tests Test 05/14/21 06:42 05/14/21 07:24 05/14/21 11:55 05/14/21 16:51 White Blood Count 4.8 x10^3/uL Red Blood Count 4.12 x10^6/uL Hemoglobin 12.6 g/dL Hematocrit 38.7 % Mean Corpuscular Volume 94 fL Mean Corpuscular Hemoglobin 31 pg Mean Corpuscular Hemoglobin Concent 33 g/dL Red Cell Distribution Width 14.1 % Platelet Count 200 x10^3/uL Erythrocyte Sedimentation Rate 42 Sodium Level 136 mmol/L Potassium Level 4.5 mmol/L Chloride Level 100 mmol/L Carbon Dioxide Level 29 mmol/L Anion Gap 7 Blood Urea Nitrogen 39 mg/dL Creatinine 1.2 mg/dL Estimated GFR (Cockcroft-Gault) 60.4 BUN/Creatinine Ratio 33 Glucose Level 113 mg/dL Calcium Level 9.0 mg/dL Total Bilirubin 0.4 mg/dL Aspartate Amino Transf (AST/SGOT) 19 U/L Alanine Aminotransferase (ALT/SGPT) 23 U/L Alkaline Phosphatase 66 U/L C-Reactive Protein 22.0 mg/L Total Protein 6.3 g/dL Albumin 2.7 g/dL Albumin/Globulin Ratio 0.8 Glucose (Fingerstick) 105 mg/dL 99 mg/dL 130 mg/dL Test 05/14/21 19:14 Glucose (Fingerstick) 142 mg/dL Current Medications Medications (Trade) Dose Ordered Sig/Nicky Route PRN Reason Start Time Stop Time Status Last Admin Dose Admin Acetaminophen (Tylenol) 650 mg PRN Q6HRS PRN PO MILD PAIN / TEMP > 100.3'F 04/25/21 12:15 04/25/21 14:18 DC Multi-Ingredient Ointment (Analgesic [place]) 1 neelima PRN QID PRN TP MUSCLE PAIN 04/25/21 12:15 05/01/21 16:28 Al Hydroxide/Mg Hydroxide (Mylanta Plus Xs) 15 ml PRN AFTMEALHC PRN PO DYSPEPSIA 04/25/21 12:15 04/26/21 10:24 DC Magnesium Hydroxide (Milk Of Magnesia) 2,400 mg PRN QHS PRN PO 2nd choice CONSTIPATION 04/25/21 12:15 04/26/21 10:24 DC Acetaminophen (Tylenol) 1,000 mg TID PO 04/25/21 14:00 04/26/21 10:24 DC 04/26/21 08:36 Aspirin (Aspirin Chewable) 81 mg DAILY PO 04/26/21 09:00 05/14/21 08:58 Bisacodyl (Dulcolax Tab) 10 mg PRN BID PRN PO 3rd choice CONSTIPATION 04/25/21 13:45 04/26/21 10:24 DC Bisacodyl (Dulcolax Supp) 10 mg PRN DAILY PRN RC 4th choice CONSTIPATION 04/25/21 13:45 04/26/21 10:24 DC Clopidogrel Bisulfate (Plavix) 75 mg DAILY PO 04/26/21 09:00 05/14/21 08:58 Duloxetine HCl (Cymbalta) 60 mg DAILY PO 04/26/21 09:00 04/27/21 20:03 DC 04/27/21 09:21 Guaifenesin (Robitussin) 200 mg PRN Q4HRS PRN PO COUGH 04/25/21 13:45 04/26/21 10:24 DC Hydralazine HCl (Apresoline) 25 mg TID PO 04/25/21 14:00 04/26/21 10:24 DC 04/26/21 08:34 Hydrocortisone (Proctosol-Hc) 1 neelima BID RC 04/25/21 21:00 04/28/21 11:07 DC 04/27/21 09:00 Lidocaine (Lidoderm) 1 patch DAILY TP 04/25/21 18:00 05/07/21 16:12 DC 05/07/21 08:22 Metolazone (Zaroxolyn) 2.5 mg QODAY PO 04/26/21 09:00 04/26/21 10:24 DC 04/26/21 08:34 Nystatin (Nystop) 1 neelima BID TP 04/25/21 21:00 04/26/21 10:24 DC 04/26/21 08:43 Polyethylene Glycol (miraLAX) 17 gm PRN DAILY PRN PO 1st choice CONSTIPATION 04/25/21 13:45 05/04/21 13:02 Potassium Chloride (Klor-Con) 30 meq DAILY PO 04/26/21 09:00 05/14/21 08:59 Sennosides (Senna) 8.6 mg PRN QHS PRN PO constipation 04/25/21 13:45 04/26/21 10:24 DC Simethicone (Gas-X) 80 mg PRN BID PRN PO gas 04/25/21 13:45 04/26/21 10:24 DC Spironolactone (Aldactone) 25 mg DAILY PO 04/26/21 09:00 04/26/21 10:24 DC 04/26/21 08:34 Tramadol HCl (Ultram) 100 mg PRN Q4HRS PRN PO PAIN 04/25/21 13:45 04/27/21 10:01 DC 04/27/21 06:06 Trazodone HCl (Desyrel) 200 mg HS PO 04/25/21 21:00 05/14/21 20:07 Non-Formulary Medication (Arginine/ Glutamine/Calcium Hmb (Stephen Packet)) 1 each BID PO 04/25/21 21:00 04/25/21 15:06 DC Atorvastatin Calcium (Lipitor) 80 mg QHS PO 04/25/21 21:00 05/14/21 20:07 Bumetanide (Bumex) 2 mg DAILY PO 04/26/21 09:00 04/30/21 10:39 DC 04/30/21 08:57 Al Hydroxide/Mg Hydroxide (Mylanta Plus Xs) 30 ml PRN Q12HR PRN PO DYSPEPSIA 04/25/21 14:45 04/26/21 10:24 DC 04/26/21 01:37 Carvedilol (Coreg) 37.5 mg BID PO 04/25/21 21:00 05/14/21 20:07 Cyclobenzaprine HCl (Flexeril) 5 mg PRN BID PRN PO MUSCLE SPASMS 04/25/21 14:45 04/26/21 10:24 DC Insulin Human Lispro (HumaLOG) 8 units TIDBFRMEAL SQ 04/25/21 16:30 05/09/21 13:03 Insulin Glargine (Lantus Syringe) 48 unit QHS SQ 04/25/21 21:00 05/10/21 16:26 DC 05/07/21 21:12 Loperamide HCl (Imodium) 2 mg PRN Q1HR PRN PO severe DIARRHEA 04/25/21 15:00 04/26/21 10:24 DC Loperamide HCl (Imodium) 2 mg PRN Q6HRS PRN PO MILD-MOD DIARRHEA 04/25/21 15:15 04/26/21 10:24 DC Melatonin (Melatonin) 9 mg QHS PO 04/25/21 21:00 04/26/21 10:24 DC 04/25/21 21:29 Non-Formulary Medication (Menthol/Zinc Oxide (Calmoseptine Ointment)) 3.5 gm BID TP 04/25/21 21:00 04/25/21 14:56 DC Multi-Ingred Cream/Lotion/Oil/ Oint (Hydrocerin) 1 neelima BID TP 04/25/21 21:00 04/26/21 10:24 DC 04/26/21 08:40 Multivitamins/ Calcium (Thera-M Plus) 1 tab DAILY PO 04/26/21 09:00 04/26/21 10:24 DC 04/26/21 08:34 Phenyleph/Shark Oil/Min Oil/Petrol (Preparation H) 1 neelima PRN Q12HR PRN RC RECTAL PAIN 04/25/21 15:00 04/26/21 10:24 DC Linagliptin (Tradjenta) 5 mg DAILY PO 04/26/21 09:00 05/14/21 09:00 Saliva Substitute (Biotene Moisturizing Mouth) 1 spray PRN Q1HR PRN PO DRY MOUTH 04/25/21 15:15 Duloxetine HCl (Cymbalta) 30 mg DAILY PO 04/27/21 09:00 04/27/21 07:48 DC Oxycodone/ Acetaminophen (Percocet 10325) 1 tab PRN Q6HRS PRN PO MOD-SEV PAIN 04/27/21 10:00 05/14/21 12:16 Duloxetine HCl (Cymbalta) 90 mg DAILY PO 04/28/21 09:00 05/14/21 08:58 Hydrocortisone (Proctosol-Hc) 1 neelima PRN BID PRN RC RECTAL PAIN 04/28/21 21:00 Aripiprazole (Abilify) 2.5 mg DAILY PO 04/29/21 09:00 04/29/21 20:16 DC 04/29/21 09:23 Aripiprazole (Abilify) 5 mg DAILY PO 04/30/21 09:00 05/12/21 12:03 DC 05/12/21 09:07 Acetaminophen (Tylenol) 1,000 mg PRN Q6HRS PRN PO MILD PAIN 1-3 05/02/21 11:00 05/04/21 06:30 Al Hydroxide/Mg Hydroxide (Mylanta Plus Xs) 30 ml PRN AFTMEALHC PRN PO DYSPEPSIA 05/03/21 10:45 05/10/21 18:29 Lidocaine (Lidoderm) 2 patch DAILY TP 05/07/21 16:15 05/14/21 09:00 Miscellaneous (Lidoderm Patch Removal) 1 ea QHS MC 05/07/21 21:00 05/14/21 20:06 Glucose (Insta-Glucose) 15 gm PRN Q15MIN PRN PO LOW BLOOD SUGAR 05/09/21 18:00 Melatonin (Melatonin) 3 mg PRN QHS PRN PO INSOMNIA 05/09/21 21:00 05/10/21 03:08 DC Melatonin (Melatonin) 3 mg HS PO 05/10/21 21:00 05/11/21 20:19 DC 05/11/21 20:06 Insulin Glargine (Lantus Syringe) 40 unit QHS SQ 05/10/21 21:00 05/12/21 20:15 Melatonin (Melatonin) 6 mg HS PO 05/12/21 21:00 05/14/21 20:06 Docusate Sodium (Colace) 100 mg DAILY PO 05/12/21 09:00 05/14/21 09:00 Aripiprazole (Abilify) 7.5 mg DAILY PO 05/13/21 09:00 05/14/21 08:59 I have reviewed the current psychotropics carefully including drug interactions. Risk benefit ratio favors no change other than as noted in my dictated progress note. Diagnosis: Problems: (1) Major depressive disorder, recurrent, severe with psychotic features (2) Chronic pain (3) Anxiety disorder, unspecified (4) Impulse control disorder, unspecified ESE LEVI MD May 14, 2021 21:46
--- NOTE | 2021-05-14 21:46 | PDOC ---
Exam Note: Josef Note: Please also refer to the separate dictated note~for this date of service dictated separately.~Patient seen individually. Discussed the patient with Nursing staff reviewed the chart.~Reviewed interim history and current functioning. Reviewed vital signs,~Labs/ Radiology~and current medications noted below. Continue current treatment with the changes noted in the dictated addendum note Assessment: Vital Signs/I&O: Vital Signs Date Time Temp Pulse Resp B/P (MAP) Pulse Ox O2 Delivery O2 Flow Rate FiO2 05/14/21 20:07 83 129/85 05/14/21 15:33 97.6 20 93 05/11/21 06:05 Room Air I & O 05/13/21 05/13/21 05/14/21 15:00 23:00 07:00 Intake Total 910 ml 720 ml Balance 910 ml 720 ml Labs: Laboratory Tests Test 05/14/21 06:42 05/14/21 07:24 05/14/21 11:55 05/14/21 16:51 White Blood Count 4.8 x10^3/uL (4.0-11.0) Red Blood Count 4.12 x10^6/uL (4.30-5.70) L Hemoglobin 12.6 g/dL (13.0-17.5) L Hematocrit 38.7 % (39.0-53.0) L Mean Corpuscular Volume 94 fL (79-100) Mean Corpuscular Hemoglobin 31 pg (25-35) Mean Corpuscular Hemoglobin Concent 33 g/dL (31-37) Red Cell Distribution Width 14.1 % (11.5-14.5) Platelet Count 200 x10^3/uL (140-400) Erythrocyte Sedimentation Rate 42 (0-15) H Sodium Level 136 mmol/L (136-145) Potassium Level 4.5 mmol/L (3.5-5.1) Chloride Level 100 mmol/L (98-107) Carbon Dioxide Level 29 mmol/L (21-32) Anion Gap 7 (6-14) Blood Urea Nitrogen 39 mg/dL (8-26) H Creatinine 1.2 mg/dL (0.7-1.3) Estimated GFR (Cockcroft-Gault) 60.4 BUN/Creatinine Ratio 33 (6-20) H Glucose Level 113 mg/dL (70-99) H Calcium Level 9.0 mg/dL (8.5-10.1) Total Bilirubin 0.4 mg/dL (0.2-1.0) Aspartate Amino Transferase (AST) 19 U/L (15-37) Alanine Aminotransferase (ALT) 23 U/L (16-63) Alkaline Phosphatase 66 U/L (46-116) C-Reactive Protein 22.0 mg/L (0-3.3) H Total Protein 6.3 g/dL (6.4-8.2) L Albumin 2.7 g/dL (3.4-5.0) L Albumin/Globulin Ratio 0.8 (1.0-1.7) L Glucose (Fingerstick) 105 mg/dL (70-99) H 99 mg/dL (70-99) 130 mg/dL (70-99) H Test 05/14/21 19:14 Glucose (Fingerstick) 142 mg/dL (70-99) H Current Medications: Meds: Laboratory Tests Test 05/14/21 06:42 05/14/21 07:24 05/14/21 11:55 05/14/21 16:51 White Blood Count 4.8 x10^3/uL Red Blood Count 4.12 x10^6/uL Hemoglobin 12.6 g/dL Hematocrit 38.7 % Mean Corpuscular Volume 94 fL Mean Corpuscular Hemoglobin 31 pg Mean Corpuscular Hemoglobin Concent 33 g/dL Red Cell Distribution Width 14.1 % Platelet Count 200 x10^3/uL Erythrocyte Sedimentation Rate 42 Sodium Level 136 mmol/L Potassium Level 4.5 mmol/L Chloride Level 100 mmol/L Carbon Dioxide Level 29 mmol/L Anion Gap 7 Blood Urea Nitrogen 39 mg/dL Creatinine 1.2 mg/dL Estimated GFR (Cockcroft-Gault) 60.4 BUN/Creatinine Ratio 33 Glucose Level 113 mg/dL Calcium Level 9.0 mg/dL Total Bilirubin 0.4 mg/dL Aspartate Amino Transf (AST/SGOT) 19 U/L Alanine Aminotransferase (ALT/SGPT) 23 U/L Alkaline Phosphatase 66 U/L C-Reactive Protein 22.0 mg/L Total Protein 6.3 g/dL Albumin 2.7 g/dL Albumin/Globulin Ratio 0.8 Glucose (Fingerstick) 105 mg/dL 99 mg/dL 130 mg/dL Test 05/14/21 19:14 Glucose (Fingerstick) 142 mg/dL Current Medications Medications (Trade) Dose Ordered Sig/Nicky Route PRN Reason Start Time Stop Time Status Last Admin Dose Admin Acetaminophen (Tylenol) 650 mg PRN Q6HRS PRN PO MILD PAIN / TEMP > 100.3'F 04/25/21 12:15 04/25/21 14:18 DC Multi-Ingredient Ointment (Analgesic [place]) 1 neelima PRN QID PRN TP MUSCLE PAIN 04/25/21 12:15 05/01/21 16:28 Al Hydroxide/Mg Hydroxide (Mylanta Plus Xs) 15 ml PRN AFTMEALHC PRN PO DYSPEPSIA 04/25/21 12:15 04/26/21 10:24 DC Magnesium Hydroxide (Milk Of Magnesia) 2,400 mg PRN QHS PRN PO 2nd choice CONSTIPATION 04/25/21 12:15 04/26/21 10:24 DC Acetaminophen (Tylenol) 1,000 mg TID PO 04/25/21 14:00 04/26/21 10:24 DC 04/26/21 08:36 Aspirin (Aspirin Chewable) 81 mg DAILY PO 04/26/21 09:00 05/14/21 08:58 Bisacodyl (Dulcolax Tab) 10 mg PRN BID PRN PO 3rd choice CONSTIPATION 04/25/21 13:45 04/26/21 10:24 DC Bisacodyl (Dulcolax Supp) 10 mg PRN DAILY PRN RC 4th choice CONSTIPATION 04/25/21 13:45 04/26/21 10:24 DC Clopidogrel Bisulfate (Plavix) 75 mg DAILY PO 04/26/21 09:00 05/14/21 08:58 Duloxetine HCl (Cymbalta) 60 mg DAILY PO 04/26/21 09:00 04/27/21 20:03 DC 04/27/21 09:21 Guaifenesin (Robitussin) 200 mg PRN Q4HRS PRN PO COUGH 04/25/21 13:45 04/26/21 10:24 DC Hydralazine HCl (Apresoline) 25 mg TID PO 04/25/21 14:00 04/26/21 10:24 DC 04/26/21 08:34 Hydrocortisone (Proctosol-Hc) 1 neelima BID RC 04/25/21 21:00 04/28/21 11:07 DC 04/27/21 09:00 Lidocaine (Lidoderm) 1 patch DAILY TP 04/25/21 18:00 05/07/21 16:12 DC 05/07/21 08:22 Metolazone (Zaroxolyn) 2.5 mg QODAY PO 04/26/21 09:00 04/26/21 10:24 DC 04/26/21 08:34 Nystatin (Nystop) 1 neelima BID TP 04/25/21 21:00 04/26/21 10:24 DC 04/26/21 08:43 Polyethylene Glycol (miraLAX) 17 gm PRN DAILY PRN PO 1st choice CONSTIPATION 04/25/21 13:45 05/04/21 13:02 Potassium Chloride (Klor-Con) 30 meq DAILY PO 04/26/21 09:00 05/14/21 08:59 Sennosides (Senna) 8.6 mg PRN QHS PRN PO constipation 04/25/21 13:45 04/26/21 10:24 DC Simethicone (Gas-X) 80 mg PRN BID PRN PO gas 04/25/21 13:45 04/26/21 10:24 DC Spironolactone (Aldactone) 25 mg DAILY PO 04/26/21 09:00 04/26/21 10:24 DC 04/26/21 08:34 Tramadol HCl (Ultram) 100 mg PRN Q4HRS PRN PO PAIN 04/25/21 13:45 04/27/21 10:01 DC 04/27/21 06:06 Trazodone HCl (Desyrel) 200 mg HS PO 04/25/21 21:00 05/14/21 20:07 Non-Formulary Medication (Arginine/ Glutamine/Calcium Hmb (Stephen Packet)) 1 each BID PO 04/25/21 21:00 04/25/21 15:06 DC Atorvastatin Calcium (Lipitor) 80 mg QHS PO 04/25/21 21:00 05/14/21 20:07 Bumetanide (Bumex) 2 mg DAILY PO 04/26/21 09:00 04/30/21 10:39 DC 04/30/21 08:57 Al Hydroxide/Mg Hydroxide (Mylanta Plus Xs) 30 ml PRN Q12HR PRN PO DYSPEPSIA 04/25/21 14:45 04/26/21 10:24 DC 04/26/21 01:37 Carvedilol (Coreg) 37.5 mg BID PO 04/25/21 21:00 05/14/21 20:07 Cyclobenzaprine HCl (Flexeril) 5 mg PRN BID PRN PO MUSCLE SPASMS 04/25/21 14:45 04/26/21 10:24 DC Insulin Human Lispro (HumaLOG) 8 units TIDBFRMEAL SQ 04/25/21 16:30 05/09/21 13:03 Insulin Glargine (Lantus Syringe) 48 unit QHS SQ 04/25/21 21:00 05/10/21 16:26 DC 05/07/21 21:12 Loperamide HCl (Imodium) 2 mg PRN Q1HR PRN PO severe DIARRHEA 04/25/21 15:00 04/26/21 10:24 DC Loperamide HCl (Imodium) 2 mg PRN Q6HRS PRN PO MILD-MOD DIARRHEA 04/25/21 15:15 04/26/21 10:24 DC Melatonin (Melatonin) 9 mg QHS PO 04/25/21 21:00 04/26/21 10:24 DC 04/25/21 21:29 Non-Formulary Medication (Menthol/Zinc Oxide (Calmoseptine Ointment)) 3.5 gm BID TP 04/25/21 21:00 04/25/21 14:56 DC Multi-Ingred Cream/Lotion/Oil/ Oint (Hydrocerin) 1 neelima BID TP 04/25/21 21:00 04/26/21 10:24 DC 04/26/21 08:40 Multivitamins/ Calcium (Thera-M Plus) 1 tab DAILY PO 04/26/21 09:00 04/26/21 10:24 DC 04/26/21 08:34 Phenyleph/Shark Oil/Min Oil/Petrol (Preparation H) 1 neelima PRN Q12HR PRN RC RECTAL PAIN 04/25/21 15:00 04/26/21 10:24 DC Linagliptin (Tradjenta) 5 mg DAILY PO 04/26/21 09:00 05/14/21 09:00 Saliva Substitute (Biotene Moisturizing Mouth) 1 spray PRN Q1HR PRN PO DRY MOUTH 04/25/21 15:15 Duloxetine HCl (Cymbalta) 30 mg DAILY PO 04/27/21 09:00 04/27/21 07:48 DC Oxycodone/ Acetaminophen (Percocet 10/325) 1 tab PRN Q6HRS PRN PO MOD-SEV PAIN 04/27/21 10:00 05/14/21 12:16 Duloxetine HCl (Cymbalta) 90 mg DAILY PO 04/28/21 09:00 05/14/21 08:58 Hydrocortisone (Proctosol-Hc) 1 neelima PRN BID PRN RC RECTAL PAIN 04/28/21 21:00 Aripiprazole (Abilify) 2.5 mg DAILY PO 04/29/21 09:00 04/29/21 20:16 DC 04/29/21 09:23 Aripiprazole (Abilify) 5 mg DAILY PO 04/30/21 09:00 05/12/21 12:03 DC 05/12/21 09:07 Acetaminophen (Tylenol) 1,000 mg PRN Q6HRS PRN PO MILD PAIN 1-3 05/02/21 11:00 05/04/21 06:30 Al Hydroxide/Mg Hydroxide (Mylanta Plus Xs) 30 ml PRN AFTMEALHC PRN PO DYSPEPSIA 05/03/21 10:45 05/10/21 18:29 Lidocaine (Lidoderm) 2 patch DAILY TP 05/07/21 16:15 05/14/21 09:00 Miscellaneous (Lidoderm Patch Removal) 1 ea QHS MC 05/07/21 21:00 05/14/21 20:06 Glucose (Insta-Glucose) 15 gm PRN Q15MIN PRN PO LOW BLOOD SUGAR 05/09/21 18:00 Melatonin (Melatonin) 3 mg PRN QHS PRN PO INSOMNIA 05/09/21 21:00 05/10/21 03:08 DC Melatonin (Melatonin) 3 mg HS PO 05/10/21 21:00 05/11/21 20:19 DC 05/11/21 20:06 Insulin Glargine (Lantus Syringe) 40 unit QHS SQ 05/10/21 21:00 05/12/21 20:15 Melatonin (Melatonin) 6 mg HS PO 05/12/21 21:00 05/14/21 20:06 Docusate Sodium (Colace) 100 mg DAILY PO 05/12/21 09:00 05/14/21 09:00 Aripiprazole (Abilify) 7.5 mg DAILY PO 05/13/21 09:00 05/14/21 08:59 I have reviewed the current psychotropics carefully including drug interactions. Risk benefit ratio favors no change other than as noted in my dictated progress note. Diagnosis: Problems: (1) Impulse control disorder, unspecified (2) Anxiety disorder, unspecified (3) Major depressive disorder, recurrent, severe with psychotic features (4) Chronic pain ESE LEVI MD May 14, 2021 21:46
--- NOTE | 2021-05-14 22:10 | NUR ---
PRN pain med given. Pt has been cooperative with staff and took med whole. He has had no behaviors tonight. Nystatin powder was placed in abdominal folds at HS care some areas are red and tender.
[2021-05-15 06:17] VITALS: BP 120/73
[2021-05-15] MEDS: INSULIN LISPRO 300 UNITS/3 ML VIAL. SQ SCH ×3 (07:30→16:56)
[2021-05-15] MEDS: POTASSIUM CHLORIDE 10 MEQ TABLET.ER. PO SCH (10:14)
[2021-05-15] MEDS: LINAGLIPTIN 5 MG TABLET PO SCH (10:14)
[2021-05-15] MEDS: DULoxetine HCL 30 MG CAPSULE.DR PO SCH (10:14)
[2021-05-15] MEDS: CARVEDILOL 12.5 MG TABLET PO SCH ×2 (10:15→19:53)
[2021-05-15] MEDS: DOCUSATE SODIUM 100 MG CAPSULE PO SCH (10:15)
[2021-05-15] MEDS: ASPIRIN CHEWABLE 81 MG TABLET. PO SCH (10:15)
[2021-05-15] MEDS: ARIPiprazole 5 MG TABLET PO SCH (10:15)
[2021-05-15] MEDS: CLOPIDOGREL BISULFATE 75 MG TABLET PO SCH (10:16)
[2021-05-15] MEDS: LIDOCAINE (700MG/PATCH) PATCH. TP SCH (10:20)
[2021-05-15] MEDS: oxyCODONE/APAP 10/325 1 TAB TABLET PO PRN ×2 (10:27→19:54)
--- NOTE | 2021-05-15 11:41 | NUR ---
Nsg Note: Silvio rates his pain level 10/10 thought he is calm, talkative and smiling. No frowning, agitation, restlessness or crying noted
[2021-05-15] MEDS ORDERED: DEXTROSE 50% 25 GM / 50ML DISP.SYRIN. IV PRN (13:45)
[2021-05-15] MEDS: ACETAMINOPHEN 500 MG TABLET PO PRN (15:46)
[2021-05-15 15:48] VITALS: BP 120/75
--- NOTE | 2021-05-15 17:22 | NUR ---
Nsg Note; Silvio self isolated this am in his room and bed. When I told him to get up and come to the dining room for lunch, he said multiple staff, including the charge nurse, told him he has to stay in his bed because he has a severe yeast infection. No one told him this, and I am the charge nurse today. He does have a yeasty infection in his groin which is not "severe" and is being treated with nystatin powder. When he came to the dining room for lunch, he dramatically told his peers about his severe yeast infection and that he had been isolated in his room.
[2021-05-15] MEDS: MELATONIN 3 MG TABLET PO SCH (19:52)
[2021-05-15] MEDS: traZODone 100 MG TABLET. PO SCH (19:52)
[2021-05-15] MEDS: ATORVASTATIN CALCIUM 20 MG TABLET PO SCH (19:52)
[2021-05-15] MEDS: PATCH REMOVAL. MC SCH (19:53)
[2021-05-15] MEDS: INSULIN GLARGINE SYRINGE. SQ SCH (21:00)
--- NOTE | 2021-05-15 21:00 | NUR ---
Silvio has been in the hallway most of the evening . He said that another pt accidentally ran over his Left great toe and that he will not be able to stand any more. No obvious injury to toe seen. When assisting pt to bed he only partially assisted staff acting as if he was unable to stand. PRN percocet was given for report of generalized pain. He has taken meds whole without difficulty and continues to not use his CPAP and gives various excuses for not wanting to use it.
[2021-05-15] MEDS: NYSTATIN TOPICAL POWDER 15GM BOTTLE. TP SCH (21:07)
--- NOTE | 2021-05-15 22:03 | PDOC ---
Exam Note: Josef Note: Please also refer to the separate dictated note~for this date of service dictated separately.~Patient seen individually. Discussed the patient with Nursing staff reviewed the chart.~Reviewed interim history and current functioning. Reviewed vital signs,~Labs/ Radiology~and current medications noted below. Continue current treatment with the changes noted in the dictated addendum note Assessment: Vital Signs/I&O: Vital Signs Date Time Temp Pulse Resp B/P (MAP) Pulse Ox O2 Delivery O2 Flow Rate FiO2 05/15/21 19:53 92 120/75 05/15/21 15:48 97.6 18 94 05/15/21 06:17 Nasal Cannula 2.0 I & O 0 05/14/21 05/14/21 05/15/21 15:00 23:00 07:00 Intake Total 960 ml 720 ml Balance 960 ml 720 ml Labs: Laboratory Tests Test 05/15/21 06:00 05/15/21 07:26 05/15/21 16:46 05/15/21 19:17 SARS-CoV-2 (PCR) Not detected (NOT DETECTD) Glucose (Fingerstick) 112 mg/dL (70-99) H 120 mg/dL (70-99) H 176 mg/dL (70-99) H Current Medications: Meds: Laboratory Tests Test 05/15/21 06:00 05/15/21 07:26 05/15/21 16:46 05/15/21 19:17 Coronavirus (COVID-19)(PCR) Not detected Glucose (Fingerstick) 112 mg/dL 120 mg/dL 176 mg/dL Current Medications Medications (Trade) Dose Ordered Sig/Nicky Route PRN Reason Start Time Stop Time Status Last Admin Dose Admin Acetaminophen (Tylenol) 650 mg PRN Q6HRS PRN PO MILD PAIN / TEMP > 100.3'F 04/25/21 12:15 04/25/21 14:18 DC Multi-Ingredient Ointment (Analgesic Harris) 1 neelima PRN QID PRN TP MUSCLE PAIN 04/25/21 12:15 05/01/21 16:28 Al Hydroxide/Mg Hydroxide (Mylanta Plus Xs) 15 ml PRN AFTMEALHC PRN PO DYSPEPSIA 04/25/21 12:15 04/26/21 10:24 DC Magnesium Hydroxide (Milk Of Magnesia) 2,400 mg PRN QHS PRN PO 2nd choice CONSTIPATION 04/25/21 12:15 04/26/21 10:24 DC Acetaminophen (Tylenol) 1,000 mg TID PO 04/25/21 14:00 04/26/21 10:24 DC 04/26/21 08:36 Aspirin (Aspirin Chewable) 81 mg DAILY PO 04/26/21 09:00 05/15/21 10:15 Bisacodyl (Dulcolax Tab) 10 mg PRN BID PRN PO 3rd choice CONSTIPATION 04/25/21 13:45 04/26/21 10:24 DC Bisacodyl (Dulcolax Supp) 10 mg PRN DAILY PRN RC 4th choice CONSTIPATION 04/25/21 13:45 04/26/21 10:24 DC Clopidogrel Bisulfate (Plavix) 75 mg DAILY PO 04/26/21 09:00 05/15/21 10:16 Duloxetine HCl (Cymbalta) 60 mg DAILY PO 04/26/21 09:00 04/27/21 20:03 DC 04/27/21 09:21 Guaifenesin (Robitussin) 200 mg PRN Q4HRS PRN PO COUGH 04/25/21 13:45 04/26/21 10:24 DC Hydralazine HCl (Apresoline) 25 mg TID PO 04/25/21 14:00 04/26/21 10:24 DC 04/26/21 08:34 Hydrocortisone (Proctosol-Hc) 1 neelima BID RC 04/25/21 21:00 04/28/21 11:07 DC 04/27/21 09:00 Lidocaine (Lidoderm) 1 patch DAILY TP 04/25/21 18:00 05/07/21 16:12 DC 05/07/21 08:22 Metolazone (Zaroxolyn) 2.5 mg QODAY PO 04/26/21 09:00 04/26/21 10:24 DC 04/26/21 08:34 Nystatin (Nystop) 1 neelima BID TP 04/25/21 21:00 04/26/21 10:24 DC 04/26/21 08:43 Polyethylene Glycol (miraLAX) 17 gm PRN DAILY PRN PO 1st choice CONSTIPATION 04/25/21 13:45 05/04/21 13:02 Potassium Chloride (Klor-Con) 30 meq DAILY PO 04/26/21 09:00 05/15/21 10:14 Sennosides (Senna) 8.6 mg PRN QHS PRN PO constipation 04/25/21 13:45 04/26/21 10:24 DC Simethicone (Gas-X) 80 mg PRN BID PRN PO gas 04/25/21 13:45 04/26/21 10:24 DC Spironolactone (Aldactone) 25 mg DAILY PO 04/26/21 09:00 04/26/21 10:24 DC 04/26/21 08:34 Tramadol HCl (Ultram) 100 mg PRN Q4HRS PRN PO PAIN 04/25/21 13:45 04/27/21 10:01 DC 04/27/21 06:06 Trazodone HCl (Desyrel) 200 mg HS PO 04/25/21 21:00 05/15/21 19:52 Non-Formulary Medication (Arginine/ Glutamine/Calcium Hmb (Stephen Packet)) 1 each BID PO 04/25/21 21:00 04/25/21 15:06 DC Atorvastatin Calcium (Lipitor) 80 mg QHS PO 04/25/21 21:00 05/15/21 19:52 Bumetanide (Bumex) 2 mg DAILY PO 04/26/21 09:00 04/30/21 10:39 DC 04/30/21 08:57 Al Hydroxide/Mg Hydroxide (Mylanta Plus Xs) 30 ml PRN Q12HR PRN PO DYSPEPSIA 04/25/21 14:45 04/26/21 10:24 DC 04/26/21 01:37 Carvedilol (Coreg) 37.5 mg BID PO 04/25/21 21:00 05/15/21 19:53 Cyclobenzaprine HCl (Flexeril) 5 mg PRN BID PRN PO MUSCLE SPASMS 04/25/21 14:45 04/26/21 10:24 DC Insulin Human Lispro (HumaLOG) 8 units TIDBFRMEAL SQ 04/25/21 16:30 05/15/21 13:44 DC 05/09/21 13:03 Insulin Glargine (Lantus Syringe) 48 unit QHS SQ 04/25/21 21:00 05/10/21 16:26 DC 05/07/21 21:12 Loperamide HCl (Imodium) 2 mg PRN Q1HR PRN PO severe DIARRHEA 04/25/21 15:00 04/26/21 10:24 DC Loperamide HCl (Imodium) 2 mg PRN Q6HRS PRN PO MILD-MOD DIARRHEA 04/25/21 15:15 04/26/21 10:24 DC Melatonin (Melatonin) 9 mg QHS PO 04/25/21 21:00 04/26/21 10:24 DC 04/25/21 21:29 Non-Formulary Medication (Menthol/Zinc Oxide (Calmoseptine Ointment)) 3.5 gm BID TP 04/25/21 21:00 04/25/21 14:56 DC Multi-Ingred Cream/Lotion/Oil/ Oint (Hydrocerin) 1 neelima BID TP 04/25/21 21:00 04/26/21 10:24 DC 04/26/21 08:40 Multivitamins/ Calcium (Thera-M Plus) 1 tab DAILY PO 04/26/21 09:00 04/26/21 10:24 DC 04/26/21 08:34 Phenyleph/Shark Oil/Min Oil/Petrol (Preparation H) 1 neelima PRN Q12HR PRN RC RECTAL PAIN 04/25/21 15:00 04/26/21 10:24 DC Linagliptin (Tradjenta) 5 mg DAILY PO 04/26/21 09:00 05/15/21 10:14 Saliva Substitute (Biotene Moisturizing Mouth) 1 spray PRN Q1HR PRN PO DRY MOUTH 04/25/21 15:15 Duloxetine HCl (Cymbalta) 30 mg DAILY PO 04/27/21 09:00 04/27/21 07:48 DC Oxycodone/ Acetaminophen (Percocet 10/325) 1 tab PRN Q6HRS PRN PO MOD-SEV PAIN 04/27/21 10:00 05/15/21 19:54 Duloxetine HCl (Cymbalta) 90 mg DAILY PO 04/28/21 09:00 05/15/21 10:14 Hydrocortisone (Proctosol-Hc) 1 neelima PRN BID PRN RC RECTAL PAIN 04/28/21 21:00 Aripiprazole (Abilify) 2.5 mg DAILY PO 04/29/21 09:00 04/29/21 20:16 DC 04/29/21 09:23 Aripiprazole (Abilify) 5 mg DAILY PO 04/30/21 09:00 05/12/21 12:03 DC 05/12/21 09:07 Acetaminophen (Tylenol) 1,000 mg PRN Q6HRS PRN PO MILD PAIN 1-3 05/02/21 11:00 05/15/21 15:46 Al Hydroxide/Mg Hydroxide (Mylanta Plus Xs) 30 ml PRN AFTMEALHC PRN PO DYSPEPSIA 05/03/21 10:45 05/10/21 18:29 Lidocaine (Lidoderm) 2 patch DAILY TP 05/07/21 16:15 05/15/21 10:20 Miscellaneous (Lidoderm Patch Removal) 1 ea QHS MC 05/07/21 21:00 05/15/21 19:53 Glucose (Insta-Glucose) 15 gm PRN Q15MIN PRN PO LOW BLOOD SUGAR 05/09/21 18:00 Melatonin (Melatonin) 3 mg PRN QHS PRN PO INSOMNIA 05/09/21 21:00 05/10/21 03:08 DC Melatonin (Melatonin) 3 mg HS PO 05/10/21 21:00 05/11/21 20:19 DC 05/11/21 20:06 Insulin Glargine (Lantus Syringe) 40 unit QHS SQ 05/10/21 21:00 05/15/21 13:44 DC 05/12/21 20:15 Melatonin (Melatonin) 6 mg HS PO 05/12/21 21:00 05/15/21 19:52 Docusate Sodium (Colace) 100 mg DAILY PO 05/12/21 09:00 05/15/21 10:15 Aripiprazole (Abilify) 7.5 mg DAILY PO 05/13/21 09:00 05/15/21 10:15 Nystatin (Nystop) 1 neelima BID TP 05/15/21 21:00 05/15/21 21:07 Insulin Glargine (Lantus Syringe) 25 unit QHS SQ 05/15/21 21:00 Insulin Human Lispro (HumaLOG) 0-5 UNITS TIDWMEALS SQ 05/15/21 17:00 Dextrose (Dextrose 50%-Water Syringe) 12.5 gm PRN Q15MIN PRN IV SEE COMMENTS 05/15/21 13:45 Current Medications Medications (Trade) Dose Ordered Sig/Nicky Route PRN Reason Start Time Stop Time Status Last Admin Dose Admin Nystatin (Nystop) 1 neelima BID TP 05/15/21 21:00 05/15/21 21:07 I have reviewed the current psychotropics carefully including drug interactions. Risk benefit ratio favors no change other than as noted in my dictated progress note. Diagnosis: Problems: (1) Impulse control disorder, unspecified (2) Anxiety disorder, unspecified (3) Major depressive disorder, recurrent, severe with psychotic features (4) Chronic pain ESE LEVI MD May 15, 2021 22:03
[2021-05-16 06:09] VITALS: BP 132/63
[2021-05-16] MEDS: INSULIN LISPRO 300 UNITS/3 ML VIAL. SQ SCH ×3 (07:31→17:00)
[2021-05-16] MEDS: CARVEDILOL 12.5 MG TABLET PO SCH ×2 (08:04→19:47)
[2021-05-16] MEDS: CLOPIDOGREL BISULFATE 75 MG TABLET PO SCH (08:04)
[2021-05-16] MEDS: DOCUSATE SODIUM 100 MG CAPSULE PO SCH (08:05)
[2021-05-16] MEDS: ARIPiprazole 5 MG TABLET PO SCH (08:05)
[2021-05-16] MEDS: DULoxetine HCL 30 MG CAPSULE.DR PO SCH (08:05)
[2021-05-16] MEDS: ASPIRIN CHEWABLE 81 MG TABLET. PO SCH (08:05)
[2021-05-16] MEDS: POTASSIUM CHLORIDE 10 MEQ TABLET.ER. PO SCH (08:05)
[2021-05-16] MEDS: LINAGLIPTIN 5 MG TABLET PO SCH (08:06)
[2021-05-16] MEDS: LIDOCAINE (700MG/PATCH) PATCH. TP SCH (08:09)
[2021-05-16] MEDS: oxyCODONE/APAP 10/325 1 TAB TABLET PO PRN ×2 (08:14→19:46)
[2021-05-16] MEDS: NYSTATIN TOPICAL POWDER 15GM BOTTLE. TP SCH ×2 (09:39→21:10)
--- NOTE | 2021-05-16 09:53 | PDOC ---
Exam Note: Josef Note: This note is a late entry for 05/14/2021 covers elements not covered in my initial note. Subjective: The patient was seen individually in the evening of 05/14/2021 with Susi MODI, discussed and reviewed the chart. The patient slept 7 hours previous night. He was being somewhat deadweight last evening per nursing staff, putting most of his weight on Kaye RN and the night tech even though he is able to do some of this himself according to nursing observations. He also remains somewhat hyper-holiness and puts his hands on the heads often on other demented patients, blessing them and praying for them. Some of this seems a little inappropriate at times. We talked at some length about the loss of his , their life together before that in [place] and [place] on the [facility]. He was quite verbal, forthcoming about this. Review of Systems: Ambulation impaired in wheelchair. No CV, , pulmonary, eye system symptoms on review. Mental Status Exam: The patient is reasonably oriented. Speech coherent. Abstraction fair. Computation impaired. Language function intact. Mood and affect still depressed but improved. No suicidal or homicidal ideation. Laboratory Data: Reviewed. Impression: Major depressive disorder with psychotic features. Anxiety disorder, unspecified. Impulse control disorder unspecified. Plan: No change from initial note. Maintain Cymbalta 90 mg a day, Abilify 7.5 mg a day, melatonin 6 mg h.s., trazodone 200 mg h.s. Assessment: Vital Signs/I&O: Vital Signs Date Time Temp Pulse Resp B/P (MAP) Pulse Ox O2 Delivery O2 Flow Rate FiO2 05/16/21 08:04 87 132/63 05/16/21 06:09 96.7 18 94 05/15/21 06:17 Nasal Cannula 2.0 I & O 05/15/21 05/15/21 05/16/21 15:00 23:00 07:00 Intake Total 380 ml 620 ml Balance 380 ml 620 ml Labs: Laboratory Tests Test 05/15/21 16:46 05/15/21 19:17 05/16/21 07:16 Glucose (Fingerstick) 120 mg/dL (70-99) H 176 mg/dL (70-99) H 139 mg/dL (70-99) H Current Medications: Meds: Laboratory Tests Test 05/15/21 16:46 05/15/21 19:17 05/16/21 07:16 Glucose (Fingerstick) 120 mg/dL 176 mg/dL 139 mg/dL Current Medications Medications (Trade) Dose Ordered Sig/Nicky Route PRN Reason Start Time Stop Time Status Last Admin Dose Admin Acetaminophen (Tylenol) 650 mg PRN Q6HRS PRN PO MILD PAIN / TEMP > 100.3'F 04/25/21 12:15 04/25/21 14:18 DC Multi-Ingredient Ointment (Analgesic Campbell) 1 neelima PRN QID PRN TP MUSCLE PAIN 04/25/21 12:15 05/01/21 16:28 Al Hydroxide/Mg Hydroxide (Mylanta Plus Xs) 15 ml PRN AFTMEALHC PRN PO DYSPEPSIA 04/25/21 12:15 04/26/21 10:24 DC Magnesium Hydroxide (Milk Of Magnesia) 2,400 mg PRN QHS PRN PO 2nd choice CONSTIPATION 04/25/21 12:15 04/26/21 10:24 DC Acetaminophen (Tylenol) 1,000 mg TID PO 04/25/21 14:00 04/26/21 10:24 DC 04/26/21 08:36 Aspirin (Aspirin Chewable) 81 mg DAILY PO 04/26/21 09:00 05/16/21 08:05 Bisacodyl (Dulcolax Tab) 10 mg PRN BID PRN PO 3rd choice CONSTIPATION 04/25/21 13:45 04/26/21 10:24 DC Bisacodyl (Dulcolax Supp) 10 mg PRN DAILY PRN RC 4th choice CONSTIPATION 04/25/21 13:45 04/26/21 10:24 DC Clopidogrel Bisulfate (Plavix) 75 mg DAILY PO 04/26/21 09:00 05/16/21 08:04 Duloxetine HCl (Cymbalta) 60 mg DAILY PO 04/26/21 09:00 04/27/21 20:03 DC 04/27/21 09:21 Guaifenesin (Robitussin) 200 mg PRN Q4HRS PRN PO COUGH 04/25/21 13:45 04/26/21 10:24 DC Hydralazine HCl (Apresoline) 25 mg TID PO 04/25/21 14:00 04/26/21 10:24 DC 04/26/21 08:34 Hydrocortisone (Proctosol-Hc) 1 neelima BID RC 04/25/21 21:00 04/28/21 11:07 DC 04/27/21 09:00 Lidocaine (Lidoderm) 1 patch DAILY TP 04/25/21 18:00 05/07/21 16:12 DC 05/07/21 08:22 Metolazone (Zaroxolyn) 2.5 mg QODAY PO 04/26/21 09:00 04/26/21 10:24 DC 04/26/21 08:34 Nystatin (Nystop) 1 neelima BID TP 04/25/21 21:00 04/26/21 10:24 DC 04/26/21 08:43 Polyethylene Glycol (miraLAX) 17 gm PRN DAILY PRN PO 1st choice CONSTIPATION 04/25/21 13:45 05/04/21 13:02 Potassium Chloride (Klor-Con) 30 meq DAILY PO 04/26/21 09:00 05/16/21 08:05 Sennosides (Senna) 8.6 mg PRN QHS PRN PO constipation 04/25/21 13:45 04/26/21 10:24 DC Simethicone (Gas-X) 80 mg PRN BID PRN PO gas 04/25/21 13:45 04/26/21 10:24 DC Spironolactone (Aldactone) 25 mg DAILY PO 04/26/21 09:00 04/26/21 10:24 DC 04/26/21 08:34 Tramadol HCl (Ultram) 100 mg PRN Q4HRS PRN PO PAIN 04/25/21 13:45 04/27/21 10:01 DC 04/27/21 06:06 Trazodone HCl (Desyrel) 200 mg HS PO 04/25/21 21:00 05/15/21 19:52 Non-Formulary Medication (Arginine/ Glutamine/Calcium Hmb (Stephen Packet)) 1 each BID PO 04/25/21 21:00 04/25/21 15:06 DC Atorvastatin Calcium (Lipitor) 80 mg QHS PO 04/25/21 21:00 05/15/21 19:52 Bumetanide (Bumex) 2 mg DAILY PO 04/26/21 09:00 04/30/21 10:39 DC 04/30/21 08:57 Al Hydroxide/Mg Hydroxide (Mylanta Plus Xs) 30 ml PRN Q12HR PRN PO DYSPEPSIA 04/25/21 14:45 04/26/21 10:24 DC 04/26/21 01:37 Carvedilol (Coreg) 37.5 mg BID PO 04/25/21 21:00 05/16/21 08:04 Cyclobenzaprine HCl (Flexeril) 5 mg PRN BID PRN PO MUSCLE SPASMS 04/25/21 14:45 04/26/21 10:24 DC Insulin Human Lispro (HumaLOG) 8 units TIDBFRMEAL SQ 04/25/21 16:30 05/15/21 13:44 DC 05/09/21 13:03 Insulin Glargine (Lantus Syringe) 48 unit QHS SQ 04/25/21 21:00 05/10/21 16:26 DC 05/07/21 21:12 Loperamide HCl (Imodium) 2 mg PRN Q1HR PRN PO severe DIARRHEA 04/25/21 15:00 04/26/21 10:24 DC Loperamide HCl (Imodium) 2 mg PRN Q6HRS PRN PO MILD-MOD DIARRHEA 04/25/21 15:15 04/26/21 10:24 DC Melatonin (Melatonin) 9 mg QHS PO 04/25/21 21:00 04/26/21 10:24 DC 04/25/21 21:29 Non-Formulary Medication (Menthol/Zinc Oxide (Calmoseptine Ointment)) 3.5 gm BID TP 04/25/21 21:00 04/25/21 14:56 DC Multi-Ingred Cream/Lotion/Oil/ Oint (Hydrocerin) 1 neelima BID TP 04/25/21 21:00 04/26/21 10:24 DC 04/26/21 08:40 Multivitamins/ Calcium (Thera-M Plus) 1 tab DAILY PO 04/26/21 09:00 04/26/21 10:24 DC 04/26/21 08:34 Phenyleph/Shark Oil/Min Oil/Petrol (Preparation H) 1 neelima PRN Q12HR PRN RC RECTAL PAIN 04/25/21 15:00 04/26/21 10:24 DC Linagliptin (Tradjenta) 5 mg DAILY PO 04/26/21 09:00 05/16/21 08:06 Saliva Substitute (Biotene Moisturizing Mouth) 1 spray PRN Q1HR PRN PO DRY MOUTH 04/25/21 15:15 Duloxetine HCl (Cymbalta) 30 mg DAILY PO 04/27/21 09:00 04/27/21 07:48 DC Oxycodone/ Acetaminophen (Percocet 10/325) 1 tab PRN Q6HRS PRN PO MOD-SEV PAIN 04/27/21 10:00 05/16/21 08:14 Duloxetine HCl (Cymbalta) 90 mg DAILY PO 04/28/21 09:00 05/16/21 08:05 Hydrocortisone (Proctosol-Hc) 1 neelima PRN BID PRN RC RECTAL PAIN 04/28/21 21:00 Aripiprazole (Abilify) 2.5 mg DAILY PO 04/29/21 09:00 04/29/21 20:16 DC 04/29/21 09:23 Aripiprazole (Abilify) 5 mg DAILY PO 04/30/21 09:00 05/12/21 12:03 DC 05/12/21 09:07 Acetaminophen (Tylenol) 1,000 mg PRN Q6HRS PRN PO MILD PAIN 1-3 05/02/21 11:00 05/15/21 15:46 Al Hydroxide/Mg Hydroxide (Mylanta Plus Xs) 30 ml PRN AFTMEALHC PRN PO DYSPEPSIA 05/03/21 10:45 05/10/21 18:29 Lidocaine (Lidoderm) 2 patch DAILY TP 05/07/21 16:15 05/16/21 08:09 Miscellaneous (Lidoderm Patch Removal) 1 ea QHS MC 05/07/21 21:00 05/15/21 19:53 Glucose (Insta-Glucose) 15 gm PRN Q15MIN PRN PO LOW BLOOD SUGAR 05/09/21 18:00 Melatonin (Melatonin) 3 mg PRN QHS PRN PO INSOMNIA 05/09/21 21:00 05/10/21 03:08 DC Melatonin (Melatonin) 3 mg HS PO 05/10/21 21:00 05/11/21 20:19 DC 05/11/21 20:06 Insulin Glargine (Lantus Syringe) 40 unit QHS SQ 05/10/21 21:00 05/15/21 13:44 DC 05/12/21 20:15 Melatonin (Melatonin) 6 mg HS PO 05/12/21 21:00 05/15/21 19:52 Docusate Sodium (Colace) 100 mg DAILY PO 05/12/21 09:00 05/16/21 08:05 Aripiprazole (Abilify) 7.5 mg DAILY PO 05/13/21 09:00 05/16/21 08:05 Nystatin (Nystop) 1 neelima BID TP 05/15/21 21:00 05/16/21 09:39 Insulin Glargine (Lantus Syringe) 25 unit QHS SQ 05/15/21 21:00 Insulin Human Lispro (HumaLOG) 0-5 UNITS TIDWMEALS SQ 05/15/21 17:00 Dextrose (Dextrose 50%-Water Syringe) 12.5 gm PRN Q15MIN PRN IV SEE COMMENTS 05/15/21 13:45 Current Medications Medications (Trade) Dose Ordered Sig/Nicky Route PRN Reason Start Time Stop Time Status Last Admin Dose Admin Nystatin (Nystop) 1 neelima BID TP 05/15/21 21:00 05/16/21 09:39 I have reviewed the current psychotropics carefully including drug interactions. Risk benefit ratio favors no change other than as noted in my dictated progress note. Diagnosis: Problems: (1) Impulse control disorder, unspecified (2) Anxiety disorder, unspecified (3) Major depressive disorder, recurrent, severe with psychotic features (4) Chronic pain ESE LEVI MD May 16, 2021 09:53
--- NOTE | 2021-05-16 14:56 | NUR ---
SW sent updates to pt facility and will reach out early next week to discuss discharge plans.
--- NOTE | 2021-05-16 15:37 | NUR ---
PSYCHOSOCIAL ASSESSMENT ADMISSION DATE: 04/25/21 CONTACT INFORMATION: DPOA/Guardian Contact Name: Son-Inocencio Maravilla (not enacted at this time as pt is a self sign) Contact Address: Contact Phone #: [phone] ETHNIC ORIGIN: REASONS FOR ADMISSION: ADDITIONAL ADMISSION COMMENTS: Per intake pt anxious, labile mood, grandiose, depressed, wants to give up, hitting his forehead with hand over and over to not feel the pain. 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 Froylan describes that pt has given thousands of dollars to women in [place] as Froylan believes that he has been financially abused by these women. Froylan states that he has reported the concern to Department of Aging and because pt is his own person, he can really do what he wants to with his money. Froylan states that he agrees with that, but is just concerned because pt is delusional that he has been told that by giving such large amounts of money that he is helping the children and families on the [facility]. Pt did, in fact, live with his for many years on the [facility] as his was a price changer until she unexpectedly from a pulmonary embolism which left pt in a devastated state that, per patient account, he has not recovered from. PATIENT/FAMILY EXPECTATIONS FOR ADMISSION: Decrease feelings of depression, assist with delusional belief that he is the only one that will be able to help the [place], assist pt with self esteem that may help him with better independence. LIVING SITUATION: Patient lives with: [facility] Other living arrangements: Liam Melissa at [place] Contact Name: Luanne Contact Address: [address] [place] [address] Contact Phone #: [phone] Contact Fax #: [phone] FAMILY RELATIONS: Marital Status: # of Marriages: 2 # of Children: 1 [facility] Family Support: Concerned Cooperative Involved in DC Planning Additional Comments r/t Family: Pt reports that he was originally to [place] for a very short time (18 months). He and Kathrine had once child together, Froylan. Pt reports he later , Ngozi, who was a price changer. 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 SIGNIFICANT PSYCHIATRIC/MEDICAL HISTORY: Psychiatric/Treatment History: Pt reports that several years ago, he sought inpatient treatment at [facility] in [place]. Pertinent Family History: None known. HISTORICAL DATA: Childhood Environment: [place] Nurturing Supportive Childhood Environment Additional Comments: Pt reports having been raised in a nurturing home by both parents, Elaine and Heriberto Maravilla. He reports they did move around quite a bit because of his father's job. Pt reports his mother recently at age 97 in her home in [place], [place]. Pt states that he has four other siblings that live in various places. 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 service: N Sabianism background: Islam Sexual orientation: Heterosexual Educational Level: Graduated from [employer] in [place], [place]. Pt reports having taken some classes at the [facility]. Past/Present Interests/Hobbies: Enjoys [employer], playing Richard, golfing, Trivial Pursuit, sushi Financial support/resources: Skilled Nursing/Pension Social Security Monthly income: Adequate Person handling finances: Self/Facility/Son-Froylan Do you have a history of legal problems: N Cultural considerations: Aligns with cultural beliefs SOCIAL RELATIONSHIPS-CURRENT/PAST: Psychiatrist: Dr. Ramirez PCP: Dr. Daisy Sanchez/Abby Pichardo NP Counselor/Therapist: None Veterans' Administration: None Support Group: None Assistant Clinical Nurse Manager/Tube Cleaning Operator: None Other relationships: None STRENGTHS & WEAKNESSES: Patient's strengths: Good family support Good verbal skills Stable living arrange Financial support Education level Approachable Engaged Other patient strengths: Patient's weaknesses: Poor relationships Health problems Other Other patient weaknesses: Helpless personality traits PRELIMINARY PLAN OF TREATMENT: Preliminary plan: Dec. Hallucination/Delus Dec. Symp. Depression Promote Coping Skill Improved Social Skills Medication Stabilization Monitor Med Effects Prevent Deterioration Other preliminary treatment comments: While at [facility], pt will be encouraged to attend SW group and recreational therapy groups. He will report any feelings of depression to medical staff along with verbalizing and focusing on the positives in his life. DISCHARGE PLANNING: Discharge planning/disposition: Current Living Arrange. Additional discharge needs identified: None at this time. ADDITIONAL INFORMATION: Other Pertinent Data: Pt participated in giving information for Psychosocial assessment. Pt enjoys conversing and would like for someone to write a book about his life. Pt likes to joke with others and know that he is helping others. Psychosocial was completed on 04/28/21.
[2021-05-16 15:51] VITALS: BP 128/84
--- NOTE | 2021-05-16 15:57 | TX PLAN ---
Interdisciplinary Tx Plan Admission Information Apr 25, 2021 at 11:49 Legal Status (on Admission): Voluntary DPOA/Guardian Name: Son-Inocencio Maravilla (not enacted at this time as pt is a self sign) Contact Other Contact Name: Luanne Other Contact Verified Code Status: Full Code Allergies: Coded Allergies: No Known Drug Allergies (Unverified , 04/25/21) Diagnoses Primary Diagnosis: (1) Major depressive disorder, recurrent (2) Anxiety disorder, unspecified (3) Impulse control disorder, unspecified Reasons for Admission: Relation/conflict, Depressed, Grief, Anxiety/Panic, Poor impulse control Problem in Patient's Words: Pt son, Froylan, describes that 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 Froylan describes that pt has given thousands of dollars to women in [place] as Froylan believes that he has been financially abused by these women. Froylan states that he has reported the concern to Department of Aging and because pt is his own person, he can really do what he wants to with his money. Froylan states that he agrees with that, but is just concerned because pt is delusinoal that he has been told that by giving such large amounts of money that he is helping the children and families on the [facility]. Pt did, in fact, live with his for many years on the [facility] as his was a peditrician until she unexpectedly from a pulmonary embolism which left pt in a devastated state that, per patient account, he has not recovered from. Additional Admission Comments: Per intake pt anxious, labile mood, grandiose, depressed, wants to give up, hitting his forehead with hand over and over to not feel the pain. Problems Active Problems: Depression, anxiety, unresolved grief from 's , impulse control problems Inactive Problems: None at this time. Pt Strengths/Limitations Ability for [place]: Poor Cognitive Functioning/Ability: Good Communication Skills/Ability: Good Financial Resources: Good Insight/Judgement: Poor Intellectual Ability: Good Physical Health: Poor Social Skills: Fair Stability in Family: Fair Stability in School/Work: Fair Verbal Skills: Good Discharge Criteria Discharge Criteria: Able meet basic life need, No need for close observ., Adequate arrangements @DC, Adequate self-care, Verbal commit med comply, Improved behavior, Improved mood/thought Other Discharge Comments: None at this time. Preliminary Discharge Plan Preliminary DC Plan: Current Living Arrange. Special Precautions Special Precautions: Other Fall Risk: High Other Precautions (specify): 1-2 person assist during transfers, bariatric pt Initial D/C Plan Plan is for pt to return to [facility] when stable. Identified Discharge Needs: None at this time. Currently Utilized Resources Currently Utilized Resources/P: PCP-Dr. Daisy Sanchez Psychiatrist-Dr. Ashley Pichardo, [employer] DPAO (not currently enacted)-Son-Inocencio Maravilla Referrals Community Resources: None at this time. Identified Problems/Hx/Goals Objectives/Short-Term Goals Short Term Goals: Dec. Hallucination/Delus, Dec. Symp. Depression, Improved Social Skills, Medication Stabilization, Monitor Med Effects, Prevent Deterioration, Promote Coping Skill Short Term Goals in Patient's: Would like some help with unresolved grief, decrease feelings of depression, improve thoughts of self esteem Interventions/Frequency Staff Interventions/Frequency&: Psychiatry to assess pt three times per week for medication management. Nursing to assess behaviors, monitor medications, and complete 15 minute checks daily. Social work to see pt at least two times weekly to aid in return to placement. Activities to encourage pt to participate in group activities daily. 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 Education: Graduated from [employer] in [place], [place]. Pt reports having taken some classes at the [facility]. Community Follow-up PCP Psychiatrist Community Provider/Family Inpu: Pt, son (Froylan), and Luanne from pt facility provided information to assist with treatment planning. Treatment Plan Explained Patient/Head Of Cytogenetics had this treatment plan explained to him/her as indicated by the signature below and has been given the opportunity to ask questions and make suggestions: Date: Patient/Head Of Cytogenetics Signature: Additional Comments Treatment plan completed on 04/28/21. EVE CORONA May 16, 2021 15:57
--- NOTE | 2021-05-16 16:10 | TX PLAN ---
Interdisciplinary Tx Plan Admission Information Apr 25, 2021 at 11:49 Legal Status (on Admission): Voluntary DPOA/Guardian Name: Son-Inocencio Maravilla (not enacted at this time as pt is a self sign) Contact Other Contact Name: Luanne Other Contact Verified Code Status: Full Code Allergies: Coded Allergies: No Known Drug Allergies (Unverified , 04/25/21) Diagnoses Primary Diagnosis: (1) Major depressive disorder, recurrent (2) Anxiety disorder, unspecified (3) Impulse control disorder, unspecified Reasons for Admission: Relation/conflict, Depressed, Grief, Anxiety/Panic, Poor impulse control Problem in Patient's Words: Pt son, Froylan, describes that 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 Froylan describes that pt has given thousands of dollars to women in [place] as Froylan believes that he has been financially abused by these women. Froylan states that he has reported the concern to Department of Aging and because pt is his own person, he can really do what he wants to with his money. Froylan states that he agrees with that, but is just concerned because pt is delusinoal that he has been told that by giving such large amounts of money that he is helping the children and families on the [facility]. Pt did, in fact, live with his for many years on the [facility] as his was a peditrician until she unexpectedly from a pulmonary embolism which left pt in a devastated state that, per patient account, he has not recovered from. Additional Admission Comments: Per intake pt anxious, labile mood, grandiose, depressed, wants to give up, hitting his forehead with hand over and over to not feel the pain. Problems Active Problems: Depression, anxiety, unresolved grief from 's , impulse control problems Inactive Problems: None at this time. Pt Strengths/Limitations Ability for [place]: Poor Cognitive Functioning/Ability: Good Communication Skills/Ability: Good Financial Resources: Good Insight/Judgement: Poor Intellectual Ability: Good Physical Health: Poor Social Skills: Fair Stability in Family: Fair Stability in School/Work: Fair Verbal Skills: Good Discharge Criteria Discharge Criteria: Able meet basic life need, No need for close observ., Adequate arrangements @DC, Adequate self-care, Verbal commit med comply, Improved behavior, Improved mood/thought Other Discharge Comments: None at this time. Preliminary Discharge Plan Preliminary DC Plan: Current Living Arrange. Special Precautions Special Precautions: Other Fall Risk: High Other Precautions (specify): 1-2 person assist during transfers, bariatric pt Initial D/C Plan Plan is for pt to return to [facility] when stable. Identified Discharge Needs: None at this time. Currently Utilized Resources Currently Utilized Resources/P: PCP-Dr. Daisy Sanchez Psychiatrist-Dr. Ashley Pichardo, [employer] DPAO (not currently enacted)-Son-Inocencio Maravilla Referrals Community Resources: None at this time. Identified Problems/Hx/Goals Objectives/Short-Term Goals Short Term Goals: Dec. Hallucination/Delus, Dec. Symp. Depression, Improved Social Skills, Medication Stabilization, Monitor Med Effects, Prevent Deterioration, Promote Coping Skill Short Term Goals in Patient's: Would like some help with unresolved grief, decrease feelings of depression, improve thoughts of self esteem Interventions/Frequency Staff Interventions/Frequency&: Psychiatry to assess pt three times per week for medication management. Nursing to assess behaviors, monitor medications, and complete 15 minute checks daily. Social work to see pt at least two times weekly to aid in return to placement. Activities to encourage pt to participate in group activities daily. 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. Education: Graduated from [employer] in [place], [place]. Pt reports having taken some classes at the [facility]. Community Follow-up PCP Psychiatrist Community Provider/Family Inpu: Pt, son (Froylan), and Luanne from pt facility provided information to assist with treatment planning. Treatment Plan Explained Patient/Tip Mender had this treatment plan explained to him/her as indicated by the signature below and has been given the opportunity to ask questions and make suggestions: Date: Patient/Tip Mender Signature: Status Update Update Pt averaging 50% of his meals and sleeping 6.25 hours. Pt reports still being depressed and wanting [place] help [place] Pt has been medication compliant and cooperative with cares. Pt needs assistance with transfers. He is pleasant with staff and other pts. Pt participates in groups and enjoys being around others. Pt will tell grandiose stories and this seems to be reflective of self esteem issues and personality traits. Pt continues to express unresolved grief, but knows that he needs to continue to work on that. Pt plan is to return to [facility] at time of discharge. Treatment plan completed on 05/05/21. EVE CORONA May 16, 2021 16:10
--- NOTE | 2021-05-16 16:18 | TX PLAN ---
Interdisciplinary Tx Plan Admission Information Apr 25, 2021 at 11:49 Legal Status (on Admission): Voluntary DPOA/Guardian Name: Son-Inocencio Maravilla (not enacted at this time as pt is a self sign) Contact Other Contact Name: Luanne Other Contact Verified Code Status: Full Code Allergies: Coded Allergies: No Known Drug Allergies (Unverified , 04/25/21) Diagnoses Primary Diagnosis: (1) Major depressive disorder, recurrent (2) Anxiety disorder, unspecified (3) Impulse control disorder, unspecified Reasons for Admission: Relation/conflict, Depressed, Grief, Anxiety/Panic, Poor impulse control Problem in Patient's Words: Pt son, Froylan, describes that 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 Froylan describes that pt has given thousands of dollars to women in [place] as Froylan believes that he has been financially abused by these women. Froylan states that he has reported the concern to Department of Aging and because pt is his own person, he can really do what he wants to with his money. Froylan states that he agrees with that, but is just concerned because pt is delusinoal that he has been told that by giving such large amounts of money that he is helping the children and families on the [facility]. Pt did, in fact, live with his for many years on the [facility] as his was a peditrician until she unexpectedly from a pulmonary embolism which left pt in a devastated state that, per patient account, he has not recovered from. Additional Admission Comments: Per intake pt anxious, labile mood, grandiose, depressed, wants to give up, hitting his forehead with hand over and over to not feel the pain. Problems Active Problems: Depression, anxiety, unresolved grief from 's , impulse control problems Inactive Problems: None at this time. Pt Strengths/Limitations Ability for [place]: Poor Cognitive Functioning/Ability: Good Communication Skills/Ability: Good Financial Resources: Good Insight/Judgement: Poor Intellectual Ability: Good Physical Health: Poor Social Skills: Fair Stability in Family: Fair Stability in School/Work: Fair Verbal Skills: Good Discharge Criteria Discharge Criteria: Able meet basic life need, No need for close observ., Adequate arrangements @DC, Adequate self-care, Verbal commit med comply, Improved behavior, Improved mood/thought Other Discharge Comments: None at this time. Preliminary Discharge Plan Preliminary DC Plan: Current Living Arrange. Special Precautions Special Precautions: Other Fall Risk: High Other Precautions (specify): 1-2 person assist during transfers, bariatric pt Initial D/C Plan Plan is for pt to return to [facility] when stable. Identified Discharge Needs: None at this time. Currently Utilized Resources Currently Utilized Resources/P: PCP-Dr. Daisy Sanchez Psychiatrist-Dr. Ashley Pichardo, [employer]ATHER[employer] EQUIPMENT REPA[employer] DPAO (not currently enacted)-Son-Inocencio Maravilla Referrals Community Resources: None at this time. Identified Problems/Hx/Goals Objectives/Short-Term Goals Short Term Goals: Dec. Hallucination/Delus, Dec. Symp. Depression, Improved Social Skills, Medication Stabilization, Monitor Med Effects, Prevent Deterioration, Promote Coping Skill Short Term Goals in Patient's: Would like some help with unresolved grief, decrease feelings of depression, improve thoughts of self esteem Interventions/Frequency Staff Interventions/Frequency&: Psychiatry to assess pt three times per week for medication management. Nursing to assess behaviors, monitor medications, and complete 15 minute checks daily. Social work to see pt at least two times weekly to aid in return to placement. Activities to encourage pt to participate in group activities daily. 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 Education: Graduated from [employer] in [place], [place]. Pt reports having taken some classes at the [facility]. Community Follow-up PCP Psychiatrist Community Provider/Family Inpu: Pt, son (Froylan), and Luanne from pt facility provided information to assist with treatment planning. Treatment Plan Explained Patient/Operations And Maintenance Technician had this treatment plan explained to him/her as indicated by the signature below and has been given the opportunity to ask questions and make suggestions: Date: Patient/Operations And Maintenance Technician Signature: Status Update Update Pt eating minimally at 10% of his meals. Pt is diabetic and this has been addressed with him. Insulin is held if pt does not eat. Pt has been sleeping an average of 5 hours. Pt shows signs of some improvement around attention seeking and being less dramatic. He does enjoy conversation and is pleasant with others including staff and other pts. If pt feels that he has done something wrong or not approved by staff, he will be overly apologetic. Pt has participated in nine groups over the past week with independence. He will at times need some encouragement. Pt does experience some pain and this is being addressed. Pt wears boot for right foot wound and this is monitored by the wound team. Pt will return to [facility] at time of discharge. Treatment plan was completed on 05/12/21. EVE CORONA May 16, 2021 16:18
[2021-05-16] MEDS: PATCH REMOVAL. MC SCH (19:45)
[2021-05-16] MEDS: MELATONIN 3 MG TABLET PO SCH (19:46)
[2021-05-16] MEDS: ATORVASTATIN CALCIUM 20 MG TABLET PO SCH (19:46)
[2021-05-16] MEDS: traZODone 100 MG TABLET. PO SCH (19:46)
[2021-05-16] MEDS: INSULIN GLARGINE SYRINGE. SQ SCH (19:47)
--- NOTE | 2021-05-16 20:00 | NUR ---
PRN percocet given for pain. Pt has been in dayroom "getting to know the new patients." Jase tookmeds whole without difficulty and has been cooperative with [facility].
--- NOTE | 2021-05-16 20:40 | NUR ---
Pt resting in bed no further complaints of pain.
--- NOTE | 2021-05-16 21:50 | PDOC ---
Exam Note: Josef Note: Please also refer to the separate dictated note~for this date of service dictated separately.~Patient seen individually. Discussed the patient with Nursing staff reviewed the chart.~Reviewed interim history and current functioning. Reviewed vital signs,~Labs/ Radiology~and current medications noted below. Continue current treatment with the changes noted in the dictated addendum note Assessment: Vital Signs/I&O: Vital Signs Date Time Temp Pulse Resp B/P (MAP) Pulse Ox O2 Delivery O2 Flow Rate FiO2 05/16/21 19:47 103 128/84 05/16/21 15:51 97.0 20 95 05/15/21 06:17 Nasal Cannula 2.0 I & O 05/15/21 05/15/21 05/16/21 15:00 23:00 07:00 Intake Total 380 ml 620 ml Balance 380 ml 620 ml Labs: Laboratory Tests Test 05/16/21 07:16 05/16/21 11:49 05/16/21 16:46 05/16/21 19:28 Glucose (Fingerstick) 139 mg/dL (70-99) H 101 mg/dL (70-99) H 135 mg/dL (70-99) H 194 mg/dL (70-99) H Current Medications: Meds: Laboratory Tests Test 05/16/21 07:16 05/16/21 11:49 05/16/21 16:46 05/16/21 19:28 Glucose (Fingerstick) 139 mg/dL 101 mg/dL 135 mg/dL 194 mg/dL Current Medications Medications (Trade) Dose Ordered Sig/Nicky Route PRN Reason Start Time Stop Time Status Last Admin Dose Admin Acetaminophen (Tylenol) 650 mg PRN Q6HRS PRN PO MILD PAIN / TEMP > 100.3'F 04/25/21 12:15 04/25/21 14:18 DC Multi-Ingredient Ointment (Analgesic Carney) 1 neelima PRN QID PRN TP MUSCLE PAIN 04/25/21 12:15 05/01/21 16:28 Al Hydroxide/Mg Hydroxide (Mylanta Plus Xs) 15 ml PRN AFTMEALHC PRN PO DYSPEPSIA 04/25/21 12:15 04/26/21 10:24 DC Magnesium Hydroxide (Milk Of Magnesia) 2,400 mg PRN QHS PRN PO 2nd choice CONSTIPATION 04/25/21 12:15 04/26/21 10:24 DC Acetaminophen (Tylenol) 1,000 mg TID PO 04/25/21 14:00 04/26/21 10:24 DC 04/26/21 08:36 Aspirin (Aspirin Chewable) 81 mg DAILY PO 04/26/21 09:00 05/16/21 08:05 Bisacodyl (Dulcolax Tab) 10 mg PRN BID PRN PO 3rd choice CONSTIPATION 04/25/21 13:45 04/26/21 10:24 DC Bisacodyl (Dulcolax Supp) 10 mg PRN DAILY PRN RC 4th choice CONSTIPATION 04/25/21 13:45 04/26/21 10:24 DC Clopidogrel Bisulfate (Plavix) 75 mg DAILY PO 04/26/21 09:00 05/16/21 08:04 Duloxetine HCl (Cymbalta) 60 mg DAILY PO 04/26/21 09:00 04/27/21 20:03 DC 04/27/21 09:21 Guaifenesin (Robitussin) 200 mg PRN Q4HRS PRN PO COUGH 04/25/21 13:45 04/26/21 10:24 DC Hydralazine HCl (Apresoline) 25 mg TID PO 04/25/21 14:00 04/26/21 10:24 DC 04/26/21 08:34 Hydrocortisone (Proctosol-Hc) 1 neelima BID RC 04/25/21 21:00 04/28/21 11:07 DC 04/27/21 09:00 Lidocaine (Lidoderm) 1 patch DAILY TP 04/25/21 18:00 05/07/21 16:12 DC 05/07/21 08:22 Metolazone (Zaroxolyn) 2.5 mg QODAY PO 04/26/21 09:00 04/26/21 10:24 DC 04/26/21 08:34 Nystatin (Nystop) 1 neelima BID TP 04/25/21 21:00 04/26/21 10:24 DC 04/26/21 08:43 Polyethylene Glycol (miraLAX) 17 gm PRN DAILY PRN PO 1st choice CONSTIPATION 04/25/21 13:45 05/04/21 13:02 Potassium Chloride (Klor-Con) 30 meq DAILY PO 04/26/21 09:00 05/16/21 08:05 Sennosides (Senna) 8.6 mg PRN QHS PRN PO constipation 04/25/21 13:45 04/26/21 10:24 DC Simethicone (Gas-X) 80 mg PRN BID PRN PO gas 04/25/21 13:45 04/26/21 10:24 DC Spironolactone (Aldactone) 25 mg DAILY PO 04/26/21 09:00 04/26/21 10:24 DC 04/26/21 08:34 Tramadol HCl (Ultram) 100 mg PRN Q4HRS PRN PO PAIN 04/25/21 13:45 04/27/21 10:01 DC 04/27/21 06:06 Trazodone HCl (Desyrel) 200 mg HS PO 04/25/21 21:00 05/16/21 19:46 Non-Formulary Medication (Arginine/ Glutamine/Calcium Hmb (Stephen Packet)) 1 each BID PO 04/25/21 21:00 04/25/21 15:06 DC Atorvastatin Calcium (Lipitor) 80 mg QHS PO 04/25/21 21:00 05/16/21 19:46 Bumetanide (Bumex) 2 mg DAILY PO 04/26/21 09:00 04/30/21 10:39 DC 04/30/21 08:57 Al Hydroxide/Mg Hydroxide (Mylanta Plus Xs) 30 ml PRN Q12HR PRN PO DYSPEPSIA 04/25/21 14:45 04/26/21 10:24 DC 04/26/21 01:37 Carvedilol (Coreg) 37.5 mg BID PO 04/25/21 21:00 05/16/21 19:47 Cyclobenzaprine HCl (Flexeril) 5 mg PRN BID PRN PO MUSCLE SPASMS 04/25/21 14:45 04/26/21 10:24 DC Insulin Human Lispro (HumaLOG) 8 units TIDBFRMEAL SQ 04/25/21 16:30 05/15/21 13:44 DC 05/09/21 13:03 Insulin Glargine (Lantus Syringe) 48 unit QHS SQ 04/25/21 21:00 05/10/21 16:26 DC 05/07/21 21:12 Loperamide HCl (Imodium) 2 mg PRN Q1HR PRN PO severe DIARRHEA 04/25/21 15:00 04/26/21 10:24 DC Loperamide HCl (Imodium) 2 mg PRN Q6HRS PRN PO MILD-MOD DIARRHEA 04/25/21 15:15 04/26/21 10:24 DC Melatonin (Melatonin) 9 mg QHS PO 04/25/21 21:00 04/26/21 10:24 DC 04/25/21 21:29 Non-Formulary Medication (Menthol/Zinc Oxide (Calmoseptine Ointment)) 3.5 gm BID TP 04/25/21 21:00 04/25/21 14:56 DC Multi-Ingred Cream/Lotion/Oil/ Oint (Hydrocerin) 1 neelima BID TP 04/25/21 21:00 04/26/21 10:24 DC 04/26/21 08:40 Multivitamins/ Calcium (Thera-M Plus) 1 tab DAILY PO 04/26/21 09:00 04/26/21 10:24 DC 04/26/21 08:34 Phenyleph/Shark Oil/Min Oil/Petrol (Preparation H) 1 neelima PRN Q12HR PRN RC RECTAL PAIN 04/25/21 15:00 04/26/21 10:24 DC Linagliptin (Tradjenta) 5 mg DAILY PO 04/26/21 09:00 05/16/21 08:06 Saliva Substitute (Biotene Moisturizing Mouth) 1 spray PRN Q1HR PRN PO DRY MOUTH 04/25/21 15:15 Duloxetine HCl (Cymbalta) 30 mg DAILY PO 04/27/21 09:00 04/27/21 07:48 DC Oxycodone/ Acetaminophen (Percocet 10/325) 1 tab PRN Q6HRS PRN PO MOD-SEV PAIN 04/27/21 10:00 05/16/21 19:46 Duloxetine HCl (Cymbalta) 90 mg DAILY PO 04/28/21 09:00 05/16/21 08:05 Hydrocortisone (Proctosol-Hc) 1 neelima PRN BID PRN RC RECTAL PAIN 04/28/21 21:00 Aripiprazole (Abilify) 2.5 mg DAILY PO 04/29/21 09:00 04/29/21 20:16 DC 04/29/21 09:23 Aripiprazole (Abilify) 5 mg DAILY PO 04/30/21 09:00 05/12/21 12:03 DC 05/12/21 09:07 Acetaminophen (Tylenol) 1,000 mg PRN Q6HRS PRN PO MILD PAIN 1-3 05/02/21 11:00 05/15/21 15:46 Al Hydroxide/Mg Hydroxide (Mylanta Plus Xs) 30 ml PRN AFTMEALHC PRN PO DYSPEPSIA 05/03/21 10:45 05/10/21 18:29 Lidocaine (Lidoderm) 2 patch DAILY TP 05/07/21 16:15 05/16/21 08:09 Miscellaneous (Lidoderm Patch Removal) 1 ea QHS MC 05/07/21 21:00 05/16/21 19:45 Glucose (Insta-Glucose) 15 gm PRN Q15MIN PRN PO LOW BLOOD SUGAR 05/09/21 18:00 Melatonin (Melatonin) 3 mg PRN QHS PRN PO INSOMNIA 05/09/21 21:00 05/10/21 03:08 DC Melatonin (Melatonin) 3 mg HS PO 05/10/21 21:00 05/11/21 20:19 DC 05/11/21 20:06 Insulin Glargine (Lantus Syringe) 40 unit QHS SQ 05/10/21 21:00 05/15/21 13:44 DC 05/12/21 20:15 Melatonin (Melatonin) 6 mg HS PO 05/12/21 21:00 05/16/21 19:46 Docusate Sodium (Colace) 100 mg DAILY PO 05/12/21 09:00 05/16/21 08:05 Aripiprazole (Abilify) 7.5 mg DAILY PO 05/13/21 09:00 05/16/21 08:05 Nystatin (Nystop) 1 neelima BID TP 05/15/21 21:00 05/16/21 21:10 Insulin Glargine (Lantus Syringe) 25 unit QHS SQ 05/15/21 21:00 Insulin Human Lispro (HumaLOG) 0-5 UNITS TIDWMEALS SQ 05/15/21 17:00 Dextrose (Dextrose 50%-Water Syringe) 12.5 gm PRN Q15MIN PRN IV SEE COMMENTS 05/15/21 13:45 I have reviewed the current psychotropics carefully including drug interactions. Risk benefit ratio favors no change other than as noted in my dictated progress note. Diagnosis: Problems: (1) Impulse control disorder, unspecified (2) Anxiety disorder, unspecified (3) Major depressive disorder, recurrent, severe with psychotic features (4) Chronic pain ESE LEVI MD May 16, 2021 21:50
[2021-05-17] MEDS: oxyCODONE/APAP 10/325 1 TAB TABLET PO PRN ×2 (05:19→23:06)
--- NOTE | 2021-05-17 05:33 | NUR ---
RADHA maciel given for complaint of pain. Pt said he is having hallucinations and sometimes sees the cats he and his had when they were . He said that he has Parkinson's disease which causes the hallucinations.
[2021-05-17 05:49] VITALS: BP 128/87
[2021-05-17] MEDS: INSULIN LISPRO 300 UNITS/3 ML VIAL. SQ SCH ×3 (08:00→17:00)
[2021-05-17] MEDS: POTASSIUM CHLORIDE 10 MEQ TABLET.ER. PO SCH (08:39)
[2021-05-17] MEDS: DULoxetine HCL 30 MG CAPSULE.DR PO SCH (08:39)
[2021-05-17] MEDS: DOCUSATE SODIUM 100 MG CAPSULE PO SCH (08:39)
[2021-05-17] MEDS: LINAGLIPTIN 5 MG TABLET PO SCH (08:39)
[2021-05-17] MEDS: ASPIRIN CHEWABLE 81 MG TABLET. PO SCH (08:39)
[2021-05-17] MEDS: ARIPiprazole 5 MG TABLET PO SCH (08:40)
[2021-05-17] MEDS: CARVEDILOL 12.5 MG TABLET PO SCH ×2 (08:40→21:02)
[2021-05-17] MEDS: CLOPIDOGREL BISULFATE 75 MG TABLET PO SCH (08:40)
[2021-05-17] MEDS: LIDOCAINE (700MG/PATCH) PATCH. TP SCH (08:41)
[2021-05-17] MEDS: NYSTATIN TOPICAL POWDER 15GM BOTTLE. TP SCH ×2 (08:47→21:00)
[2021-05-17 15:21] VITALS: BP 130/80
--- NOTE | 2021-05-17 16:39 | NUR ---
Pt son called asking for an update. Pt has had a good day thus far except pt became intrusive in am, attempting to give legal advice to another pt. 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 Son stated pt told him that someone was hiding in his room during the night. Pt did not say who was in his room or when the occurrence happened. Staff present today was not aware of any episode like this happening during his stay. Son worried pt may be hallucinating or possibly attention seeking. Informed son staff could of been in room during night, a wandering peer, or pt behavior. Son wanted staff to be on same pt so pt would not be discharged prematurely.
[2021-05-17] MEDS: MAG HYDROX/AL HYDROX/SIMETH 30 ML ORAL.SUSP PO PRN (17:55)
--- NOTE | 2021-05-17 20:26 | PDOC ---
Exam Note: Josef Note: This note is a late entry for 05/15/2021 covers elements not covered in my initial note. Subjective: The patient was seen individually in the evening of 05/15/2021 with Bj MODI, discussed and reviewed the chart. The patient slept 6 hours previous night. He has been fairly dramatic, anxious, somatic at times. I met with him outside his room. He was in his wheelchair trying to placate on one of the other demented patients who was repeatedly yelling out and tearful. Later this patients wheelchair ran over [facility] foot and nursing staff did intervene. Review of Systems: Ambulation impaired in wheelchair. He complains of pain. No CV, , pulmonary, eye system symptoms on review. Mental Status Exam: The patient is reasonably oriented. Speech coherent. Abstraction fair. Computation impaired. Language function intact. Mood and affect somewhat anxious, labile, depressed. No suicidal or homicidal ideation. Laboratory Data: Reviewed. Impression: Major depressive disorder with psychotic features. Anxiety disorder, unspecified. Impulse control disorder unspecified. Plan: No change from initial note. We may need to increase the Abilify further depending on how he does with his mood and anxiety symptoms. Assessment: Vital Signs/I&O: Vital Signs Date Time Temp Pulse Resp B/P (MAP) Pulse Ox O2 Delivery O2 Flow Rate FiO2 05/17/21 15:21 98.7 94 20 130/80 (97) 96 05/17/21 05:49 Nasal Cannula 2.0 I & O 05/16/21 05/16/21 05/17/21 15:00 23:00 07:00 Intake Total 840 ml 600 ml Balance 840 ml 600 ml Labs: Laboratory Tests Test 05/17/21 07:08 05/17/21 11:22 05/17/21 16:23 05/17/21 20:02 Glucose (Fingerstick) 136 mg/dL (70-99) H 100 mg/dL (70-99) H 137 mg/dL (70-99) H 147 mg/dL (70-99) H Current Medications: Meds: Laboratory Tests Test 05/17/21 07:08 05/17/21 11:22 05/17/21 16:23 05/17/21 20:02 Glucose (Fingerstick) 136 mg/dL 100 mg/dL 137 mg/dL 147 mg/dL Current Medications Medications (Trade) Dose Ordered Sig/Nicky Route PRN Reason Start Time Stop Time Status Last Admin Dose Admin Acetaminophen (Tylenol) 650 mg PRN Q6HRS PRN PO MILD PAIN / TEMP > 100.3'F 04/25/21 12:15 04/25/21 14:18 DC Multi-Ingredient Ointment (Analgesic Fromberg) 1 neelima PRN QID PRN TP MUSCLE PAIN 04/25/21 12:15 05/01/21 16:28 Al Hydroxide/Mg Hydroxide (Mylanta Plus Xs) 15 ml PRN AFTMEALHC PRN PO DYSPEPSIA 04/25/21 12:15 04/26/21 10:24 DC Magnesium Hydroxide (Milk Of Magnesia) 2,400 mg PRN QHS PRN PO 2nd choice CONSTIPATION 04/25/21 12:15 04/26/21 10:24 DC Acetaminophen (Tylenol) 1,000 mg TID PO 04/25/21 14:00 04/26/21 10:24 DC 04/26/21 08:36 Aspirin (Aspirin Chewable) 81 mg DAILY PO 04/26/21 09:00 05/17/21 08:39 Bisacodyl (Dulcolax Tab) 10 mg PRN BID PRN PO 3rd choice CONSTIPATION 04/25/21 13:45 04/26/21 10:24 DC Bisacodyl (Dulcolax Supp) 10 mg PRN DAILY PRN RC 4th choice CONSTIPATION 04/25/21 13:45 04/26/21 10:24 DC Clopidogrel Bisulfate (Plavix) 75 mg DAILY PO 04/26/21 09:00 05/17/21 08:40 Duloxetine HCl (Cymbalta) 60 mg DAILY PO 04/26/21 09:00 04/27/21 20:03 DC 04/27/21 09:21 Guaifenesin (Robitussin) 200 mg PRN Q4HRS PRN PO COUGH 04/25/21 13:45 04/26/21 10:24 DC Hydralazine HCl (Apresoline) 25 mg TID PO 04/25/21 14:00 04/26/21 10:24 DC 04/26/21 08:34 Hydrocortisone (Proctosol-Hc) 1 neelima BID RC 04/25/21 21:00 04/28/21 11:07 DC 04/27/21 09:00 Lidocaine (Lidoderm) 1 patch DAILY TP 04/25/21 18:00 05/07/21 16:12 DC 05/07/21 08:22 Metolazone (Zaroxolyn) 2.5 mg QODAY PO 04/26/21 09:00 04/26/21 10:24 DC 04/26/21 08:34 Nystatin (Nystop) 1 neelima BID TP 04/25/21 21:00 04/26/21 10:24 DC 04/26/21 08:43 Polyethylene Glycol (miraLAX) 17 gm PRN DAILY PRN PO 1st choice CONSTIPATION 04/25/21 13:45 05/04/21 13:02 Potassium Chloride (Klor-Con) 30 meq DAILY PO 04/26/21 09:00 05/17/21 08:39 Sennosides (Senna) 8.6 mg PRN QHS PRN PO constipation 04/25/21 13:45 04/26/21 10:24 DC Simethicone (Gas-X) 80 mg PRN BID PRN PO gas 04/25/21 13:45 04/26/21 10:24 DC Spironolactone (Aldactone) 25 mg DAILY PO 04/26/21 09:00 04/26/21 10:24 DC 04/26/21 08:34 Tramadol HCl (Ultram) 100 mg PRN Q4HRS PRN PO PAIN 04/25/21 13:45 04/27/21 10:01 DC 04/27/21 06:06 Trazodone HCl (Desyrel) 200 mg HS PO 04/25/21 21:00 05/16/21 19:46 Non-Formulary Medication (Arginine/ Glutamine/Calcium Hmb (Stephen Packet)) 1 each BID PO 04/25/21 21:00 04/25/21 15:06 DC Atorvastatin Calcium (Lipitor) 80 mg QHS PO 04/25/21 21:00 05/16/21 19:46 Bumetanide (Bumex) 2 mg DAILY PO 04/26/21 09:00 04/30/21 10:39 DC 04/30/21 08:57 Al Hydroxide/Mg Hydroxide (Mylanta Plus Xs) 30 ml PRN Q12HR PRN PO DYSPEPSIA 04/25/21 14:45 04/26/21 10:24 DC 04/26/21 01:37 Carvedilol (Coreg) 37.5 mg BID PO 04/25/21 21:00 05/17/21 08:40 Cyclobenzaprine HCl (Flexeril) 5 mg PRN BID PRN PO MUSCLE SPASMS 04/25/21 14:45 04/26/21 10:24 DC Insulin Human Lispro (HumaLOG) 8 units TIDBFRMEAL SQ 04/25/21 16:30 05/15/21 13:44 DC 05/09/21 13:03 Insulin Glargine (Lantus Syringe) 48 unit QHS SQ 04/25/21 21:00 05/10/21 16:26 DC 05/07/21 21:12 Loperamide HCl (Imodium) 2 mg PRN Q1HR PRN PO severe DIARRHEA 04/25/21 15:00 04/26/21 10:24 DC Loperamide HCl (Imodium) 2 mg PRN Q6HRS PRN PO MILD-MOD DIARRHEA 04/25/21 15:15 04/26/21 10:24 DC Melatonin (Melatonin) 9 mg QHS PO 04/25/21 21:00 04/26/21 10:24 DC 04/25/21 21:29 Non-Formulary Medication (Menthol/Zinc Oxide (Calmoseptine Ointment)) 3.5 gm BID TP 04/25/21 21:00 04/25/21 14:56 DC Multi-Ingred Cream/Lotion/Oil/ Oint (Hydrocerin) 1 neelima BID TP 04/25/21 21:00 04/26/21 10:24 DC 04/26/21 08:40 Multivitamins/ Calcium (Thera-M Plus) 1 tab DAILY PO 04/26/21 09:00 04/26/21 10:24 DC 04/26/21 08:34 Phenyleph/Shark Oil/Min Oil/Petrol (Preparation H) 1 neelima PRN Q12HR PRN RC RECTAL PAIN 04/25/21 15:00 04/26/21 10:24 DC Linagliptin (Tradjenta) 5 mg DAILY PO 04/26/21 09:00 05/17/21 08:39 Saliva Substitute (Biotene Moisturizing Mouth) 1 spray PRN Q1HR PRN PO DRY MOUTH 04/25/21 15:15 Duloxetine HCl (Cymbalta) 30 mg DAILY PO 04/27/21 09:00 04/27/21 07:48 DC Oxycodone/ Acetaminophen (Percocet 10325) 1 tab PRN Q6HRS PRN PO MOD-SEV PAIN 04/27/21 10:00 05/17/21 05:19 Duloxetine HCl (Cymbalta) 90 mg DAILY PO 04/28/21 09:00 05/17/21 08:39 Hydrocortisone (Proctosol-Hc) 1 neelima PRN BID PRN RC RECTAL PAIN 04/28/21 21:00 Aripiprazole (Abilify) 2.5 mg DAILY PO 04/29/21 09:00 04/29/21 20:16 DC 04/29/21 09:23 Aripiprazole (Abilify) 5 mg DAILY PO 04/30/21 09:00 05/12/21 12:03 DC 05/12/21 09:07 Acetaminophen (Tylenol) 1,000 mg PRN Q6HRS PRN PO MILD PAIN 1-3 05/02/21 11:00 05/15/21 15:46 Al Hydroxide/Mg Hydroxide (Mylanta Plus Xs) 30 ml PRN AFTMEALHC PRN PO DYSPEPSIA 05/03/21 10:45 05/17/21 17:55 Lidocaine (Lidoderm) 2 patch DAILY TP 05/07/21 16:15 05/17/21 08:41 Miscellaneous (Lidoderm Patch Removal) 1 ea QHS MC 05/07/21 21:00 05/16/21 19:45 Glucose (Insta-Glucose) 15 gm PRN Q15MIN PRN PO LOW BLOOD SUGAR 05/09/21 18:00 Melatonin (Melatonin) 3 mg PRN QHS PRN PO INSOMNIA 05/09/21 21:00 05/10/21 03:08 DC Melatonin (Melatonin) 3 mg HS PO 05/10/21 21:00 05/11/21 20:19 DC 05/11/21 20:06 Insulin Glargine (Lantus Syringe) 40 unit QHS SQ 05/10/21 21:00 05/15/21 13:44 DC 05/12/21 20:15 Melatonin (Melatonin) 6 mg HS PO 05/12/21 21:00 05/16/21 19:46 Docusate Sodium (Colace) 100 mg DAILY PO 05/12/21 09:00 05/17/21 08:39 Aripiprazole (Abilify) 7.5 mg DAILY PO 05/13/21 09:00 05/17/21 08:40 Nystatin (Nystop) 1 neelima BID TP 05/15/21 21:00 05/17/21 08:47 Insulin Glargine (Lantus Syringe) 25 unit QHS SQ 05/15/21 21:00 Insulin Human Lispro (HumaLOG) 0-5 UNITS TIDWMEALS SQ 05/15/21 17:00 Dextrose (Dextrose 50%-Water Syringe) 12.5 gm PRN Q15MIN PRN IV SEE COMMENTS 05/15/21 13:45 I have reviewed the current psychotropics carefully including drug interactions. Risk benefit ratio favors no change other than as noted in my dictated progress note. Diagnosis: Problems: (1) Impulse control disorder, unspecified (2) Anxiety disorder, unspecified (3) Major depressive disorder, recurrent, severe with psychotic features (4) Chronic pain ESE LEVI MD May 17, 2021 20:26
--- NOTE | 2021-05-17 20:52 | PDOC ---
Exam Note: Josef Note: This note is a late entry for 05/16/2021 covers elements not covered in my initial note. Subjective: The patient was seen individually in the evening of 05/16/2021 with Madiha MODI, discussed and reviewed the chart. The patient slept 5-1/2 hours previous night. He has been quite social with peers. Review of Systems: Ambulation impaired in wheelchair. Positive for back pain. No CV, , pulmonary, eye system symptoms on review. Mental Status Exam: The patient is reasonably oriented. Speech coherent has some latency. Abstraction fair. Computation impaired. Language function intact. Mood and affect somewhat anxious, labile, depressed. No suicidal or homicidal ideation. Laboratory Data: Reviewed. Impression: Major depressive disorder with psychotic features. Anxiety disorder, unspecified. Impulse control disorder unspecified. Plan: No change from initial note. Assessment: Vital Signs/I&O: Vital Signs Date Time Temp Pulse Resp B/P (MAP) Pulse Ox O2 Delivery O2 Flow Rate FiO2 05/17/21 15:21 98.7 94 20 130/80 (97) 96 05/17/21 05:49 Nasal Cannula 2.0 I & O 05/16/21 05/16/21 05/17/21 15:00 23:00 07:00 Intake Total 840 ml 600 ml Balance 840 ml 600 ml Labs: Laboratory Tests Test 05/17/21 07:08 05/17/21 11:22 05/17/21 16:23 05/17/21 20:02 Glucose (Fingerstick) 136 mg/dL (70-99) H 100 mg/dL (70-99) H 137 mg/dL (70-99) H 147 mg/dL (70-99) H Current Medications: Meds: Laboratory Tests Test 05/17/21 07:08 05/17/21 11:22 05/17/21 16:23 05/17/21 20:02 Glucose (Fingerstick) 136 mg/dL 100 mg/dL 137 mg/dL 147 mg/dL Current Medications Medications (Trade) Dose Ordered Sig/Nicky Route PRN Reason Start Time Stop Time Status Last Admin Dose Admin Acetaminophen (Tylenol) 650 mg PRN Q6HRS PRN PO MILD PAIN / TEMP > 100.3'F 04/25/21 12:15 04/25/21 14:18 DC Multi-Ingredient Ointment (Analgesic Robinson) 1 neelima PRN QID PRN TP MUSCLE PAIN 04/25/21 12:15 05/01/21 16:28 Al Hydroxide/Mg Hydroxide (Mylanta Plus Xs) 15 ml PRN AFTMEALHC PRN PO DYSPEPSIA 04/25/21 12:15 04/26/21 10:24 DC Magnesium Hydroxide (Milk Of Magnesia) 2,400 mg PRN QHS PRN PO 2nd choice CONSTIPATION 04/25/21 12:15 04/26/21 10:24 DC Acetaminophen (Tylenol) 1,000 mg TID PO 04/25/21 14:00 04/26/21 10:24 DC 04/26/21 08:36 Aspirin (Aspirin Chewable) 81 mg DAILY PO 04/26/21 09:00 05/17/21 08:39 Bisacodyl (Dulcolax Tab) 10 mg PRN BID PRN PO 3rd choice CONSTIPATION 04/25/21 13:45 04/26/21 10:24 DC Bisacodyl (Dulcolax Supp) 10 mg PRN DAILY PRN RC 4th choice CONSTIPATION 04/25/21 13:45 04/26/21 10:24 DC Clopidogrel Bisulfate (Plavix) 75 mg DAILY PO 04/26/21 09:00 05/17/21 08:40 Duloxetine HCl (Cymbalta) 60 mg DAILY PO 04/26/21 09:00 04/27/21 20:03 DC 04/27/21 09:21 Guaifenesin (Robitussin) 200 mg PRN Q4HRS PRN PO COUGH 04/25/21 13:45 04/26/21 10:24 DC Hydralazine HCl (Apresoline) 25 mg TID PO 04/25/21 14:00 04/26/21 10:24 DC 04/26/21 08:34 Hydrocortisone (Proctosol-Hc) 1 neelima BID RC 04/25/21 21:00 04/28/21 11:07 DC 04/27/21 09:00 Lidocaine (Lidoderm) 1 patch DAILY TP 04/25/21 18:00 05/07/21 16:12 DC 05/07/21 08:22 Metolazone (Zaroxolyn) 2.5 mg QODAY PO 04/26/21 09:00 04/26/21 10:24 DC 04/26/21 08:34 Nystatin (Nystop) 1 neelima BID TP 04/25/21 21:00 04/26/21 10:24 DC 04/26/21 08:43 Polyethylene Glycol (miraLAX) 17 gm PRN DAILY PRN PO 1st choice CONSTIPATION 04/25/21 13:45 05/04/21 13:02 Potassium Chloride (Klor-Con) 30 meq DAILY PO 04/26/21 09:00 05/17/21 08:39 Sennosides (Senna) 8.6 mg PRN QHS PRN PO constipation 04/25/21 13:45 04/26/21 10:24 DC Simethicone (Gas-X) 80 mg PRN BID PRN PO gas 04/25/21 13:45 04/26/21 10:24 DC Spironolactone (Aldactone) 25 mg DAILY PO 04/26/21 09:00 04/26/21 10:24 DC 04/26/21 08:34 Tramadol HCl (Ultram) 100 mg PRN Q4HRS PRN PO PAIN 04/25/21 13:45 04/27/21 10:01 DC 04/27/21 06:06 Trazodone HCl (Desyrel) 200 mg HS PO 04/25/21 21:00 05/16/21 19:46 Non-Formulary Medication (Arginine/ Glutamine/Calcium Hmb (Stephen Packet)) 1 each BID PO 04/25/21 21:00 04/25/21 15:06 DC Atorvastatin Calcium (Lipitor) 80 mg QHS PO 04/25/21 21:00 05/16/21 19:46 Bumetanide (Bumex) 2 mg DAILY PO 04/26/21 09:00 04/30/21 10:39 DC 04/30/21 08:57 Al Hydroxide/Mg Hydroxide (Mylanta Plus Xs) 30 ml PRN Q12HR PRN PO DYSPEPSIA 04/25/21 14:45 04/26/21 10:24 DC 04/26/21 01:37 Carvedilol (Coreg) 37.5 mg BID PO 04/25/21 21:00 05/17/21 08:40 Cyclobenzaprine HCl (Flexeril) 5 mg PRN BID PRN PO MUSCLE SPASMS 04/25/21 14:45 04/26/21 10:24 DC Insulin Human Lispro (HumaLOG) 8 units TIDBFRMEAL SQ 04/25/21 16:30 05/15/21 13:44 DC 05/09/21 13:03 Insulin Glargine (Lantus Syringe) 48 unit QHS SQ 04/25/21 21:00 05/10/21 16:26 DC 05/07/21 21:12 Loperamide HCl (Imodium) 2 mg PRN Q1HR PRN PO severe DIARRHEA 04/25/21 15:00 04/26/21 10:24 DC Loperamide HCl (Imodium) 2 mg PRN Q6HRS PRN PO MILD-MOD DIARRHEA 04/25/21 15:15 04/26/21 10:24 DC Melatonin (Melatonin) 9 mg QHS PO 04/25/21 21:00 04/26/21 10:24 DC 04/25/21 21:29 Non-Formulary Medication (Menthol/Zinc Oxide (Calmoseptine Ointment)) 3.5 gm BID TP 04/25/21 21:00 04/25/21 14:56 DC Multi-Ingred Cream/Lotion/Oil/ Oint (Hydrocerin) 1 neelima BID TP 04/25/21 21:00 04/26/21 10:24 DC 04/26/21 08:40 Multivitamins/ Calcium (Thera-M Plus) 1 tab DAILY PO 04/26/21 09:00 04/26/21 10:24 DC 04/26/21 08:34 Phenyleph/Shark Oil/Min Oil/Petrol (Preparation H) 1 neelima PRN Q12HR PRN RC RECTAL PAIN 04/25/21 15:00 04/26/21 10:24 DC Linagliptin (Tradjenta) 5 mg DAILY PO 04/26/21 09:00 05/17/21 08:39 Saliva Substitute (Biotene Moisturizing Mouth) 1 spray PRN Q1HR PRN PO DRY MOUTH 04/25/21 15:15 Duloxetine HCl (Cymbalta) 30 mg DAILY PO 04/27/21 09:00 04/27/21 07:48 DC Oxycodone/ Acetaminophen (Percocet 10) 1 tab PRN Q6HRS PRN PO MOD-SEV PAIN 04/27/21 10:00 05/17/21 05:19 Duloxetine HCl (Cymbalta) 90 mg DAILY PO 04/28/21 09:00 05/17/21 08:39 Hydrocortisone (Proctosol-Hc) 1 neelima PRN BID PRN RC RECTAL PAIN 04/28/21 21:00 Aripiprazole (Abilify) 2.5 mg DAILY PO 04/29/21 09:00 04/29/21 20:16 DC 04/29/21 09:23 Aripiprazole (Abilify) 5 mg DAILY PO 04/30/21 09:00 05/12/21 12:03 DC 05/12/21 09:07 Acetaminophen (Tylenol) 1,000 mg PRN Q6HRS PRN PO MILD PAIN 1-3 05/02/21 11:00 05/15/21 15:46 Al Hydroxide/Mg Hydroxide (Mylanta Plus Xs) 30 ml PRN AFTMEALHC PRN PO DYSPEPSIA 05/03/21 10:45 05/17/21 17:55 Lidocaine (Lidoderm) 2 patch DAILY TP 05/07/21 16:15 05/17/21 08:41 Miscellaneous (Lidoderm Patch Removal) 1 ea QHS MC 05/07/21 21:00 05/16/21 19:45 Glucose (Insta-Glucose) 15 gm PRN Q15MIN PRN PO LOW BLOOD SUGAR 05/09/21 18:00 Melatonin (Melatonin) 3 mg PRN QHS PRN PO INSOMNIA 05/09/21 21:00 05/10/21 03:08 DC Melatonin (Melatonin) 3 mg HS PO 05/10/21 21:00 05/11/21 20:19 DC 05/11/21 20:06 Insulin Glargine (Lantus Syringe) 40 unit QHS SQ 05/10/21 21:00 05/15/21 13:44 DC 05/12/21 20:15 Melatonin (Melatonin) 6 mg HS PO 05/12/21 21:00 05/16/21 19:46 Docusate Sodium (Colace) 100 mg DAILY PO 05/12/21 09:00 05/17/21 08:39 Aripiprazole (Abilify) 7.5 mg DAILY PO 05/13/21 09:00 05/17/21 08:40 Nystatin (Nystop) 1 neelima BID TP 05/15/21 21:00 05/17/21 08:47 Insulin Glargine (Lantus Syringe) 25 unit QHS SQ 05/15/21 21:00 Insulin Human Lispro (HumaLOG) 0-5 UNITS TIDWMEALS SQ 05/15/21 17:00 Dextrose (Dextrose 50%-Water Syringe) 12.5 gm PRN Q15MIN PRN IV SEE COMMENTS 05/15/21 13:45 I have reviewed the current psychotropics carefully including drug interactions. Risk benefit ratio favors no change other than as noted in my dictated progress note. Diagnosis: Problems: (1) Impulse control disorder, unspecified (2) Anxiety disorder, unspecified (3) Major depressive disorder, recurrent, severe with psychotic features (4) Chronic pain ESE LEVI MD May 17, 2021 20:52
--- NOTE | 2021-05-17 20:52 | PDOC ---
Exam Note: Josef Note: Please also refer to the separate dictated note~for this date of service dictated separately.~Patient seen individually. Discussed the patient with Nursing staff reviewed the chart.~Reviewed interim history and current functioning. Reviewed vital signs,~Labs/ Radiology~and current medications noted below. Continue current treatment with the changes noted in the dictated addendum note Assessment: Vital Signs/I&O: Vital Signs Date Time Temp Pulse Resp B/P (MAP) Pulse Ox O2 Delivery O2 Flow Rate FiO2 05/17/21 15:21 98.7 94 20 130/80 (97) 96 05/17/21 05:49 Nasal Cannula 2.0 I & O 05/16/21 05/16/21 05/17/21 15:00 23:00 07:00 Intake Total 840 ml 600 ml Balance 840 ml 600 ml Labs: Laboratory Tests Test 05/17/21 07:08 05/17/21 11:22 05/17/21 16:23 05/17/21 20:02 Glucose (Fingerstick) 136 mg/dL (70-99) H 100 mg/dL (70-99) H 137 mg/dL (70-99) H 147 mg/dL (70-99) H Current Medications: I have reviewed the current psychotropics carefully including drug interactions. Risk benefit ratio favors no change other than as noted in my dictated progress note. Diagnosis: Problems: (1) Impulse control disorder, unspecified (2) Anxiety disorder, unspecified (3) Major depressive disorder, recurrent, severe with psychotic features ESE LEVI MD May 17, 2021 20:52
[2021-05-17] MEDS: PATCH REMOVAL. MC SCH (21:00)
[2021-05-17] MEDS: ATORVASTATIN CALCIUM 20 MG TABLET PO SCH (21:02)
[2021-05-17] MEDS: MELATONIN 3 MG TABLET PO SCH (21:02)
[2021-05-17] MEDS: traZODone 100 MG TABLET. PO SCH (21:02)
[2021-05-17] MEDS: INSULIN GLARGINE SYRINGE. SQ SCH (21:04)
--- NOTE | 2021-05-17 23:43 | NUR ---
Pt located in his room this evening. Pt has been cooperative with cares. Compliant with whole medications. PRN Percocet administered per pt request.
[2021-05-18] MEDS: oxyCODONE/APAP 10/325 1 TAB TABLET PO PRN ×2 (05:39→21:17)
[2021-05-18 06:23] VITALS: BP 135/84
[2021-05-18] MEDS: INSULIN LISPRO 300 UNITS/3 ML VIAL. SQ SCH ×3 (07:53→17:00)
[2021-05-18] MEDS: LINAGLIPTIN 5 MG TABLET PO SCH (08:55)
[2021-05-18] MEDS: ARIPiprazole 5 MG TABLET PO SCH (08:55)
[2021-05-18] MEDS: DOCUSATE SODIUM 100 MG CAPSULE PO SCH (08:55)
[2021-05-18] MEDS: DULoxetine HCL 30 MG CAPSULE.DR PO SCH (08:55)
[2021-05-18] MEDS: ASPIRIN CHEWABLE 81 MG TABLET. PO SCH (08:55)
[2021-05-18] MEDS: CLOPIDOGREL BISULFATE 75 MG TABLET PO SCH (08:55)
[2021-05-18] MEDS: CARVEDILOL 12.5 MG TABLET PO SCH ×2 (08:56→20:19)
[2021-05-18] MEDS: LIDOCAINE (700MG/PATCH) PATCH. TP SCH (08:56)
[2021-05-18] MEDS: POTASSIUM CHLORIDE 10 MEQ TABLET.ER. PO SCH (08:56)
[2021-05-18] MEDS: NYSTATIN TOPICAL POWDER 15GM BOTTLE. TP SCH ×2 (08:57→20:20)
--- NOTE | 2021-05-18 11:15 | NUR ---
Nursing note: Pt in dining room at time of AM med pass and assessment. He appears to be drowsy this AM, but is compliant with meds whole and cooperative with assessment. Pt c/o generalized pain he rates a 10/10. Pt had already received PRN pain medication prior to shift change, but received scheduled lidocaine patches at that time. He is currently in the day room watching TV. Will continue to monitor.
[2021-05-18 16:07] VITALS: BP 125/81
[2021-05-18] MEDS: traZODone 100 MG TABLET. PO SCH (20:18)
[2021-05-18] MEDS: MELATONIN 3 MG TABLET PO SCH (20:18)
[2021-05-18] MEDS: ATORVASTATIN CALCIUM 20 MG TABLET PO SCH (20:19)
[2021-05-18] MEDS: PATCH REMOVAL. MC SCH (20:19)
[2021-05-18] MEDS: INSULIN GLARGINE SYRINGE. SQ SCH (20:21)
--- NOTE | 2021-05-18 20:25 | PDOC ---
Exam Note: Josef Note: Please also refer to the separate dictated note~for this date of service dictated separately.~Patient seen individually. Discussed the patient with Nursing staff reviewed the chart.~Reviewed interim history and current functioning. Reviewed vital signs,~Labs/ Radiology~and current medications noted below. Continue current treatment with the changes noted in the dictated addendum note Assessment: Vital Signs/I&O: Vital Signs Date Time Temp Pulse Resp B/P (MAP) Pulse Ox O2 Delivery O2 Flow Rate FiO2 05/18/21 20:19 99 125/81 05/18/21 16:07 98.7 18 93 Room Air 05/18/21 06:23 2.0 I & O 05/17/21 05/17/21 05/18/21 15:00 23:00 07:00 Intake Total 840 ml 360 ml Balance 840 ml 360 ml Labs: Laboratory Tests Test 05/18/21 07:15 05/18/21 11:51 05/18/21 17:07 05/18/21 19:15 Glucose (Fingerstick) 131 mg/dL (70-99) H 119 mg/dL (70-99) H 152 mg/dL (70-99) H 179 mg/dL (70-99) H Current Medications: Meds: Laboratory Tests Test 05/18/21 07:15 05/18/21 11:51 05/18/21 17:07 05/18/21 19:15 Glucose (Fingerstick) 131 mg/dL 119 mg/dL 152 mg/dL 179 mg/dL Current Medications Medications (Trade) Dose Ordered Sig/Nicky Route PRN Reason Start Time Stop Time Status Last Admin Dose Admin Acetaminophen (Tylenol) 650 mg PRN Q6HRS PRN PO MILD PAIN / TEMP > 100.3'F 04/25/21 12:15 04/25/21 14:18 DC Multi-Ingredient Ointment (Analgesic [place]) 1 neelima PRN QID PRN TP MUSCLE PAIN 04/25/21 12:15 05/01/21 16:28 Al Hydroxide/Mg Hydroxide (Mylanta Plus Xs) 15 ml PRN AFTMEALHC PRN PO DYSPEPSIA 04/25/21 12:15 04/26/21 10:24 DC Magnesium Hydroxide (Milk Of Magnesia) 2,400 mg PRN QHS PRN PO 2nd choice CONSTIPATION 04/25/21 12:15 04/26/21 10:24 DC Acetaminophen (Tylenol) 1,000 mg TID PO 04/25/21 14:00 04/26/21 10:24 DC 04/26/21 08:36 Aspirin (Aspirin Chewable) 81 mg DAILY PO 04/26/21 09:00 05/18/21 08:55 Bisacodyl (Dulcolax Tab) 10 mg PRN BID PRN PO 3rd choice CONSTIPATION 04/25/21 13:45 04/26/21 10:24 DC Bisacodyl (Dulcolax Supp) 10 mg PRN DAILY PRN RC 4th choice CONSTIPATION 04/25/21 13:45 04/26/21 10:24 DC Clopidogrel Bisulfate (Plavix) 75 mg DAILY PO 04/26/21 09:00 05/18/21 08:55 Duloxetine HCl (Cymbalta) 60 mg DAILY PO 04/26/21 09:00 04/27/21 20:03 DC 04/27/21 09:21 Guaifenesin (Robitussin) 200 mg PRN Q4HRS PRN PO COUGH 04/25/21 13:45 04/26/21 10:24 DC Hydralazine HCl (Apresoline) 25 mg TID PO 04/25/21 14:00 04/26/21 10:24 DC 04/26/21 08:34 Hydrocortisone (Proctosol-Hc) 1 neelima BID RC 04/25/21 21:00 04/28/21 11:07 DC 04/27/21 09:00 Lidocaine (Lidoderm) 1 patch DAILY TP 04/25/21 18:00 05/07/21 16:12 DC 05/07/21 08:22 Metolazone (Zaroxolyn) 2.5 mg QODAY PO 04/26/21 09:00 04/26/21 10:24 DC 04/26/21 08:34 Nystatin (Nystop) 1 neelima BID TP 04/25/21 21:00 04/26/21 10:24 DC 04/26/21 08:43 Polyethylene Glycol (miraLAX) 17 gm PRN DAILY PRN PO 1st choice CONSTIPATION 04/25/21 13:45 05/04/21 13:02 Potassium Chloride (Klor-Con) 30 meq DAILY PO 04/26/21 09:00 05/18/21 08:56 Sennosides (Senna) 8.6 mg PRN QHS PRN PO constipation 04/25/21 13:45 04/26/21 10:24 DC Simethicone (Gas-X) 80 mg PRN BID PRN PO gas 04/25/21 13:45 04/26/21 10:24 DC Spironolactone (Aldactone) 25 mg DAILY PO 04/26/21 09:00 04/26/21 10:24 DC 04/26/21 08:34 Tramadol HCl (Ultram) 100 mg PRN Q4HRS PRN PO PAIN 04/25/21 13:45 04/27/21 10:01 DC 04/27/21 06:06 Trazodone HCl (Desyrel) 200 mg HS PO 04/25/21 21:00 05/18/21 20:18 Non-Formulary Medication (Arginine/ Glutamine/Calcium Hmb (Stephen Packet)) 1 each BID PO 04/25/21 21:00 04/25/21 15:06 DC Atorvastatin Calcium (Lipitor) 80 mg QHS PO 04/25/21 21:00 05/18/21 20:19 Bumetanide (Bumex) 2 mg DAILY PO 04/26/21 09:00 04/30/21 10:39 DC 04/30/21 08:57 Al Hydroxide/Mg Hydroxide (Mylanta Plus Xs) 30 ml PRN Q12HR PRN PO DYSPEPSIA 04/25/21 14:45 04/26/21 10:24 DC 04/26/21 01:37 Carvedilol (Coreg) 37.5 mg BID PO 04/25/21 21:00 05/18/21 20:19 Cyclobenzaprine HCl (Flexeril) 5 mg PRN BID PRN PO MUSCLE SPASMS 04/25/21 14:45 04/26/21 10:24 DC Insulin Human Lispro (HumaLOG) 8 units TIDBFRMEAL SQ 04/25/21 16:30 05/15/21 13:44 DC 05/09/21 13:03 Insulin Glargine (Lantus Syringe) 48 unit QHS SQ 04/25/21 21:00 05/10/21 16:26 DC 05/07/21 21:12 Loperamide HCl (Imodium) 2 mg PRN Q1HR PRN PO severe DIARRHEA 04/25/21 15:00 04/26/21 10:24 DC Loperamide HCl (Imodium) 2 mg PRN Q6HRS PRN PO MILD-MOD DIARRHEA 04/25/21 15:15 04/26/21 10:24 DC Melatonin (Melatonin) 9 mg QHS PO 04/25/21 21:00 04/26/21 10:24 DC 04/25/21 21:29 Non-Formulary Medication (Menthol/Zinc Oxide (Calmoseptine Ointment)) 3.5 gm BID TP 04/25/21 21:00 04/25/21 14:56 DC Multi-Ingred Cream/Lotion/Oil/ Oint (Hydrocerin) 1 neelima BID TP 04/25/21 21:00 04/26/21 10:24 DC 04/26/21 08:40 Multivitamins/ Calcium (Thera-M Plus) 1 tab DAILY PO 04/26/21 09:00 04/26/21 10:24 DC 04/26/21 08:34 Phenyleph/Shark Oil/Min Oil/Petrol (Preparation H) 1 neelima PRN Q12HR PRN RC RECTAL PAIN 04/25/21 15:00 04/26/21 10:24 DC Linagliptin (Tradjenta) 5 mg DAILY PO 04/26/21 09:00 05/18/21 08:55 Saliva Substitute (Biotene Moisturizing Mouth) 1 spray PRN Q1HR PRN PO DRY MOUTH 04/25/21 15:15 Duloxetine HCl (Cymbalta) 30 mg DAILY PO 04/27/21 09:00 04/27/21 07:48 DC Oxycodone/ Acetaminophen (Percocet 10/325) 1 tab PRN Q6HRS PRN PO MOD-SEV PAIN 04/27/21 10:00 05/18/21 05:39 Duloxetine HCl (Cymbalta) 90 mg DAILY PO 04/28/21 09:00 05/18/21 08:55 Hydrocortisone (Proctosol-Hc) 1 neelima PRN BID PRN RC RECTAL PAIN 04/28/21 21:00 Aripiprazole (Abilify) 2.5 mg DAILY PO 04/29/21 09:00 04/29/21 20:16 DC 04/29/21 09:23 Aripiprazole (Abilify) 5 mg DAILY PO 04/30/21 09:00 05/12/21 12:03 DC 05/12/21 09:07 Acetaminophen (Tylenol) 1,000 mg PRN Q6HRS PRN PO MILD PAIN 1-3 05/02/21 11:00 05/15/21 15:46 Al Hydroxide/Mg Hydroxide (Mylanta Plus Xs) 30 ml PRN AFTMEALHC PRN PO DYSPEPSIA 05/03/21 10:45 05/17/21 17:55 Lidocaine (Lidoderm) 2 patch DAILY TP 05/07/21 16:15 05/18/21 08:56 Miscellaneous (Lidoderm Patch Removal) 1 ea QHS MC 05/07/21 21:00 05/18/21 20:19 Glucose (Insta-Glucose) 15 gm PRN Q15MIN PRN PO LOW BLOOD SUGAR 05/09/21 18:00 Melatonin (Melatonin) 3 mg PRN QHS PRN PO INSOMNIA 05/09/21 21:00 05/10/21 03:08 DC Melatonin (Melatonin) 3 mg HS PO 05/10/21 21:00 05/11/21 20:19 DC 05/11/21 20:06 Insulin Glargine (Lantus Syringe) 40 unit QHS SQ 05/10/21 21:00 05/15/21 13:44 DC 05/12/21 20:15 Melatonin (Melatonin) 6 mg HS PO 05/12/21 21:00 05/18/21 20:18 Docusate Sodium (Colace) 100 mg DAILY PO 05/12/21 09:00 05/18/21 08:55 Aripiprazole (Abilify) 7.5 mg DAILY PO 05/13/21 09:00 05/18/21 08:55 Nystatin (Nystop) 1 neelima BID TP 05/15/21 21:00 05/18/21 20:20 Insulin Glargine (Lantus Syringe) 25 unit QHS SQ 05/15/21 21:00 05/18/21 20:21 Insulin Human Lispro (HumaLOG) 0-5 UNITS TIDWMEALS SQ 05/15/21 17:00 Dextrose (Dextrose 50%-Water Syringe) 12.5 gm PRN Q15MIN PRN IV SEE COMMENTS 05/15/21 13:45 I have reviewed the current psychotropics carefully including drug interactions. Risk benefit ratio favors no change other than as noted in my dictated progress note. Diagnosis: Problems: (1) Impulse control disorder, unspecified (2) Anxiety disorder, unspecified (3) Major depressive disorder, recurrent, severe with psychotic features (4) Chronic pain ESE LEVI MD May 18, 2021 20:24
--- NOTE | 2021-05-19 02:40 | NUR ---
Nursing Note Pt somatic, complains of pain and dizziness, states "Is there a percocet in there?" when I handed him his meds. I informed him they were as needed, I would be happy to get that for him. He then stated "Not scheduled? I thought I got them nightly, well no maybe you are right My Bad. Thanks." Returned shortly after with the med, then patient wanted a Red gatorade, after getting that, then wants a cheese stick. Pt talked at length of his who was a weight and balance control agent. 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 Pt compliant with meds and assessments.
[2021-05-19 05:56] VITALS: BP 129/80
[2021-05-19 06:16] LABS: BASO % 1 % (0-3); EOS # 0.1 x10^3/uL (0.0-0.7); EOS % 2 % (0-3); HEMATOCRIT 39.5 % (39.0-53.0); LYMPH # 1.1 x10^3/uL (1.0-4.8); LYMPH % 18 % (24-48); MEAN CORPUSCULAR HEMOGLOBIN 31 pg (25-35); MEAN CORPUSCULAR HGB CONC 33 g/dL (31-37); MEAN CORPUSCULAR VOLUME 94 fL (79-100); MONO # 0.8 x10^3/uL (0.0-1.1); MONO % 13 % (0-9); NEUT # 4.1 x10^3uL (1.8-7.7); NEUT % 67 % (31-73); PLATELET COUNT 223 x10^3/uL (140-400); RED BLOOD COUNT 4.19 x10^6/uL (4.30-5.70); RED CELL DISTRIBUTION WIDTH 14.4 % (11.5-14.5)
[2021-05-19 06:17] LABS: CALCIUM 8.9 mg/dL (8.5-10.1); CREATININE 1.2 mg/dL (0.7-1.3); GFR 60.4; POTASSIUM 4.7 mmol/L (3.5-5.1)
[2021-05-19] MEDS: INSULIN LISPRO 300 UNITS/3 ML VIAL. SQ SCH ×3 (07:42→17:00)
[2021-05-19] MEDS: LINAGLIPTIN 5 MG TABLET PO SCH (08:33)
[2021-05-19] MEDS: POTASSIUM CHLORIDE 10 MEQ TABLET.ER. PO SCH (08:33)
[2021-05-19] MEDS: DULoxetine HCL 30 MG CAPSULE.DR PO SCH (08:33)
[2021-05-19] MEDS: DOCUSATE SODIUM 100 MG CAPSULE PO SCH (08:33)
[2021-05-19] MEDS: ARIPiprazole 5 MG TABLET PO SCH (08:33)
[2021-05-19] MEDS: CLOPIDOGREL BISULFATE 75 MG TABLET PO SCH (08:34)
[2021-05-19] MEDS: NYSTATIN TOPICAL POWDER 15GM BOTTLE. TP SCH ×2 (08:34→20:00)
[2021-05-19] MEDS: CARVEDILOL 12.5 MG TABLET PO SCH ×2 (08:34→19:59)
[2021-05-19] MEDS: ASPIRIN CHEWABLE 81 MG TABLET. PO SCH (08:34)
[2021-05-19] MEDS: LIDOCAINE (700MG/PATCH) PATCH. TP SCH (08:35)
[2021-05-19] MEDS: oxyCODONE/APAP 10/325 1 TAB TABLET PO PRN ×2 (08:38→19:58)
--- NOTE | 2021-05-19 09:26 | NUR ---
Nursing note: Pt in dining room at time of AM med pass and assessment. He is compliant with meds whole and cooperative with assessment. Pt c/o generalized pain he rates a 10/10. PRN pain medication provided with AM meds. He is currently in the day room watching TV. Will continue to monitor.
[2021-05-19] MEDS: MAG HYDROX/AL HYDROX/SIMETH 30 ML ORAL.SUSP PO PRN (11:39)
--- NOTE | 2021-05-19 12:57 | NUR ---
WEEKLY ACTIVITY THERAPY NOTE Date of Admission:04/25/21 Date of AT Assessment: 04/28 Precipitating behaviors that initiated intake and admission:Anxious, labile mood, grandiose, depressed, stating he wants to give up, expressing self harm thoughts, hitting head with hands Goal aimed: increase socialization and self-esteem development Initial Goal: Pt will participate in at least five Activity Therapy session per week Goal changed 05/12:Pt will participate in at all Activity Therapy session offered Weekly progress towards goal: achieved, 02/16 Group participation level: 3 mod, 5 full Weekly highlights: participated in guided meditation and explained to importance of relaxation Wednesday, answered most thomas is right questions correctly Wednesday, answered many president facts correctly Wednesday, enjoyed balloon bopping with peers , able to answer most tv show theme songs Wednesday Behaviors observed:attempting to help another pt answer sentence starter questions and rubbed her h and Wednesday morning, encouragement with exercises, pleasant and calm Plan: no change to goal Beneficial adaptations: encouragement, goal setting
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
[2021-05-19 15:42] VITALS: BP 113/82
[2021-05-19] MEDS: ACETAMINOPHEN 500 MG TABLET PO PRN (17:23)
[2021-05-19] MEDS: traZODone 100 MG TABLET. PO SCH (19:58)
[2021-05-19] MEDS: MELATONIN 3 MG TABLET PO SCH (19:59)
[2021-05-19] MEDS: ATORVASTATIN CALCIUM 20 MG TABLET PO SCH (19:59)
[2021-05-19] MEDS: PATCH REMOVAL. MC SCH (20:00)
--- NOTE | 2021-05-19 20:39 | PDOC ---
Exam Note: Josef Note: This note is a late entry for 05/17/2021 covers elements not covered in my initial note. Subjective: The patient was seen individually in the evening of 05/17/2021 with Ariana MODI, discussed and reviewed the chart. The patient slept 6 hours previous night. 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 He has been paranoid, felt someone was hiding in his room. Nursing staff wonder whether he is having intermittent hallucinations. He did watch TV in the group room, refused dinner. Review of Systems: Ambulation impaired in wheelchair. No CV, , pulmonary, eye system symptoms on review. Mental Status Exam: The patient is reasonably oriented. Speech coherent, pleasant, verbal, interactive, quite animated as I met with him. Abstraction fair. Computation impaired. Language function intact. Mood and affect somewhat anxious. No suicidal or homicidal ideation. Laboratory Data: Reviewed. Impression: Major depressive disorder with psychotic features. Anxiety disorder, unspecified. Impulse control disorder unspecified. Plan: No change from initial note. Assessment: Vital Signs/I&O: Vital Signs Date Time Temp Pulse Resp B/P (MAP) Pulse Ox O2 Delivery O2 Flow Rate FiO2 05/19/21 19:59 90 113/82 05/19/21 15:42 97.5 18 96 05/19/21 05:56 Room Air 05/18/21 06:23 2.0 I & O 05/18/21 05/18/21 05/19/21 15:00 23:00 07:00 Intake Total 960 ml 840 ml Balance 960 ml 840 ml Labs: Laboratory Tests Test 05/19/21 05:51 05/19/21 07:30 05/19/21 11:58 05/19/21 16:38 White Blood Count 6.0 x10^3/uL (4.0-11.0) Red Blood Count 4.19 x10^6/uL (4.30-5.70) L Hemoglobin 13.0 g/dL (13.0-17.5) Hematocrit 39.5 % (39.0-53.0) Mean Corpuscular Volume 94 fL (79-100) Mean Corpuscular Hemoglobin 31 pg (25-35) Mean Corpuscular Hemoglobin Concent 33 g/dL (31-37) Red Cell Distribution Width 14.4 % (11.5-14.5) Platelet Count 223 x10^3/uL (140-400) Neutrophils (%) (Auto) 67 % (31-73) Lymphocytes (%) (Auto) 18 % (24-48) L Monocytes (%) (Auto) 13 % (0-9) H Eosinophils (%) (Auto) 2 % (0-3) Basophils (%) (Auto) 1 % (0-3) Neutrophils # (Auto) 4.1 x10^3uL (1.8-7.7) Lymphocytes # (Auto) 1.1 x10^3/uL (1.0-4.8) Monocytes # (Auto) 0.8 x10^3/uL (0.0-1.1) Eosinophils # (Auto) 0.1 x10^3/uL (0.0-0.7) Basophils # (Auto) 0.0 x10^3/uL (0.0-0.2) Sodium Level 138 mmol/L (136-145) Potassium Level 4.7 mmol/L (3.5-5.1) Chloride Level 104 mmol/L (98-107) Carbon Dioxide Level 25 mmol/L (21-32) Anion Gap 9 (6-14) Blood Urea Nitrogen 36 mg/dL (8-26) H Creatinine 1.2 mg/dL (0.7-1.3) Estimated GFR (Cockcroft-Gault) 60.4 Glucose Level 118 mg/dL (70-99) H Calcium Level 8.9 mg/dL (8.5-10.1) Glucose (Fingerstick) 138 mg/dL (70-99) H 85 mg/dL (70-99) 138 mg/dL (70-99) H Test 05/19/21 19:32 Glucose (Fingerstick) 147 mg/dL (70-99) H Current Medications: Meds: Laboratory Tests Test 05/19/21 05:51 05/19/21 07:30 05/19/21 11:58 05/19/21 16:38 White Blood Count 6.0 x10^3/uL Red Blood Count 4.19 x10^6/uL Hemoglobin 13.0 g/dL Hematocrit 39.5 % Mean Corpuscular Volume 94 fL Mean Corpuscular Hemoglobin 31 pg Mean Corpuscular Hemoglobin Concent 33 g/dL Red Cell Distribution Width 14.4 % Platelet Count 223 x10^3/uL Neutrophils (%) (Auto) 67 % Lymphocytes (%) (Auto) 18 % Monocytes (%) (Auto) 13 % Eosinophils (%) (Auto) 2 % Basophils (%) (Auto) 1 % Neutrophils # (Auto) 4.1 x10^3uL Lymphocytes # (Auto) 1.1 x10^3/uL Monocytes # (Auto) 0.8 x10^3/uL Eosinophils # (Auto) 0.1 x10^3/uL Basophils # (Auto) 0.0 x10^3/uL Sodium Level 138 mmol/L Potassium Level 4.7 mmol/L Chloride Level 104 mmol/L Carbon Dioxide Level 25 mmol/L Anion Gap 9 Blood Urea Nitrogen 36 mg/dL Creatinine 1.2 mg/dL Estimated GFR (Cockcroft-Gault) 60.4 Glucose Level 118 mg/dL Calcium Level 8.9 mg/dL Glucose (Fingerstick) 138 mg/dL 85 mg/dL 138 mg/dL Test 05/19/21 19:32 Glucose (Fingerstick) 147 mg/dL Current Medications Medications (Trade) Dose Ordered Sig/Nicky Route PRN Reason Start Time Stop Time Status Last Admin Dose Admin Acetaminophen (Tylenol) 650 mg PRN Q6HRS PRN PO MILD PAIN / TEMP > 100.3'F 04/25/21 12:15 04/25/21 14:18 DC Multi-Ingredient Ointment (Analgesic [place]) 1 neelima PRN QID PRN TP MUSCLE PAIN 04/25/21 12:15 05/01/21 16:28 Al Hydroxide/Mg Hydroxide (Mylanta Plus Xs) 15 ml PRN AFTMEALHC PRN PO DYSPEPSIA 04/25/21 12:15 04/26/21 10:24 DC Magnesium Hydroxide (Milk Of Magnesia) 2,400 mg PRN QHS PRN PO 2nd choice CONSTIPATION 04/25/21 12:15 04/26/21 10:24 DC Acetaminophen (Tylenol) 1,000 mg TID PO 04/25/21 14:00 04/26/21 10:24 DC 04/26/21 08:36 Aspirin (Aspirin Chewable) 81 mg DAILY PO 04/26/21 09:00 05/19/21 08:34 Bisacodyl (Dulcolax Tab) 10 mg PRN BID PRN PO 3rd choice CONSTIPATION 04/25/21 13:45 04/26/21 10:24 DC Bisacodyl (Dulcolax Supp) 10 mg PRN DAILY PRN RC 4th choice CONSTIPATION 04/25/21 13:45 04/26/21 10:24 DC Clopidogrel Bisulfate (Plavix) 75 mg DAILY PO 04/26/21 09:00 05/19/21 08:34 Duloxetine HCl (Cymbalta) 60 mg DAILY PO 04/26/21 09:00 04/27/21 20:03 DC 04/27/21 09:21 Guaifenesin (Robitussin) 200 mg PRN Q4HRS PRN PO COUGH 04/25/21 13:45 04/26/21 10:24 DC Hydralazine HCl (Apresoline) 25 mg TID PO 04/25/21 14:00 04/26/21 10:24 DC 04/26/21 08:34 Hydrocortisone (Proctosol-Hc) 1 neelima BID RC 04/25/21 21:00 04/28/21 11:07 DC 04/27/21 09:00 Lidocaine (Lidoderm) 1 patch DAILY TP 04/25/21 18:00 05/07/21 16:12 DC 05/07/21 08:22 Metolazone (Zaroxolyn) 2.5 mg QODAY PO 04/26/21 09:00 04/26/21 10:24 DC 04/26/21 08:34 Nystatin (Nystop) 1 neelima BID TP 04/25/21 21:00 04/26/21 10:24 DC 04/26/21 08:43 Polyethylene Glycol (miraLAX) 17 gm PRN DAILY PRN PO 1st choice CONSTIPATION 04/25/21 13:45 05/04/21 13:02 Potassium Chloride (Klor-Con) 30 meq DAILY PO 04/26/21 09:00 05/19/21 08:33 Sennosides (Senna) 8.6 mg PRN QHS PRN PO constipation 04/25/21 13:45 04/26/21 10:24 DC Simethicone (Gas-X) 80 mg PRN BID PRN PO gas 04/25/21 13:45 04/26/21 10:24 DC Spironolactone (Aldactone) 25 mg DAILY PO 04/26/21 09:00 04/26/21 10:24 DC 04/26/21 08:34 Tramadol HCl (Ultram) 100 mg PRN Q4HRS PRN PO PAIN 04/25/21 13:45 04/27/21 10:01 DC 04/27/21 06:06 Trazodone HCl (Desyrel) 200 mg HS PO 04/25/21 21:00 05/19/21 19:58 Non-Formulary Medication (Arginine/ Glutamine/Calcium Hmb (Stephen Packet)) 1 each BID PO 04/25/21 21:00 04/25/21 15:06 DC Atorvastatin Calcium (Lipitor) 80 mg QHS PO 04/25/21 21:00 05/19/21 19:59 Bumetanide (Bumex) 2 mg DAILY PO 04/26/21 09:00 04/30/21 10:39 DC 04/30/21 08:57 Al Hydroxide/Mg Hydroxide (Mylanta Plus Xs) 30 ml PRN Q12HR PRN PO DYSPEPSIA 04/25/21 14:45 04/26/21 10:24 DC 04/26/21 01:37 Carvedilol (Coreg) 37.5 mg BID PO 04/25/21 21:00 05/19/21 19:59 Cyclobenzaprine HCl (Flexeril) 5 mg PRN BID PRN PO MUSCLE SPASMS 04/25/21 14:45 04/26/21 10:24 DC Insulin Human Lispro (HumaLOG) 8 units TIDBFRMEAL SQ 04/25/21 16:30 05/15/21 13:44 DC 05/09/21 13:03 Insulin Glargine (Lantus Syringe) 48 unit QHS SQ 04/25/21 21:00 05/10/21 16:26 DC 05/07/21 21:12 Loperamide HCl (Imodium) 2 mg PRN Q1HR PRN PO severe DIARRHEA 04/25/21 15:00 04/26/21 10:24 DC Loperamide HCl (Imodium) 2 mg PRN Q6HRS PRN PO MILD-MOD DIARRHEA 04/25/21 15:15 04/26/21 10:24 DC Melatonin (Melatonin) 9 mg QHS PO 04/25/21 21:00 04/26/21 10:24 DC 04/25/21 21:29 Non-Formulary Medication (Menthol/Zinc Oxide (Calmoseptine Ointment)) 3.5 gm BID TP 04/25/21 21:00 04/25/21 14:56 DC Multi-Ingred Cream/Lotion/Oil/ Oint (Hydrocerin) 1 neelima BID TP 04/25/21 21:00 04/26/21 10:24 DC 04/26/21 08:40 Multivitamins/ Calcium (Thera-M Plus) 1 tab DAILY PO 04/26/21 09:00 04/26/21 10:24 DC 04/26/21 08:34 Phenyleph/Shark Oil/Min Oil/Petrol (Preparation H) 1 neelima PRN Q12HR PRN RC RECTAL PAIN 04/25/21 15:00 04/26/21 10:24 DC Linagliptin (Tradjenta) 5 mg DAILY PO 04/26/21 09:00 05/19/21 08:33 Saliva Substitute (Biotene Moisturizing Mouth) 1 spray PRN Q1HR PRN PO DRY MOUTH 04/25/21 15:15 Duloxetine HCl (Cymbalta) 30 mg DAILY PO 04/27/21 09:00 04/27/21 07:48 DC Oxycodone/ Acetaminophen (Percocet 10/325) 1 tab PRN Q6HRS PRN PO MOD-SEV PAIN 04/27/21 10:00 05/19/21 19:58 Duloxetine HCl (Cymbalta) 90 mg DAILY PO 04/28/21 09:00 05/19/21 08:33 Hydrocortisone (Proctosol-Hc) 1 neelima PRN BID PRN RC RECTAL PAIN 04/28/21 21:00 Aripiprazole (Abilify) 2.5 mg DAILY PO 04/29/21 09:00 04/29/21 20:16 DC 04/29/21 09:23 Aripiprazole (Abilify) 5 mg DAILY PO 04/30/21 09:00 05/12/21 12:03 DC 05/12/21 09:07 Acetaminophen (Tylenol) 1,000 mg PRN Q6HRS PRN PO MILD PAIN 1-3 05/02/21 11:00 05/19/21 17:23 Al Hydroxide/Mg Hydroxide (Mylanta Plus Xs) 30 ml PRN AFTMEALHC PRN PO DYSPEPSIA 05/03/21 10:45 05/19/21 11:39 Lidocaine (Lidoderm) 2 patch DAILY TP 05/07/21 16:15 05/19/21 08:35 Miscellaneous (Lidoderm Patch Removal) 1 ea QHS MC 05/07/21 21:00 05/19/21 20:00 Glucose (Insta-Glucose) 15 gm PRN Q15MIN PRN PO LOW BLOOD SUGAR 05/09/21 18:00 Melatonin (Melatonin) 3 mg PRN QHS PRN PO INSOMNIA 05/09/21 21:00 05/10/21 03:08 DC Melatonin (Melatonin) 3 mg HS PO 05/10/21 21:00 05/11/21 20:19 DC 05/11/21 20:06 Insulin Glargine (Lantus Syringe) 40 unit QHS SQ 05/10/21 21:00 05/15/21 13:44 DC 05/12/21 20:15 Melatonin (Melatonin) 6 mg HS PO 05/12/21 21:00 05/19/21 19:59 Docusate Sodium (Colace) 100 mg DAILY PO 05/12/21 09:00 05/19/21 08:33 Aripiprazole (Abilify) 7.5 mg DAILY PO 05/13/21 09:00 05/19/21 08:33 Nystatin (Nystop) 1 neelima BID TP 05/15/21 21:00 05/19/21 20:00 Insulin Glargine (Lantus Syringe) 25 unit QHS SQ 05/15/21 21:00 05/18/21 20:21 Insulin Human Lispro (HumaLOG) 0-5 UNITS TIDWMEALS SQ 05/15/21 17:00 Dextrose (Dextrose 50%-Water Syringe) 12.5 gm PRN Q15MIN PRN IV SEE COMMENTS 05/15/21 13:45 I have reviewed the current psychotropics carefully including drug interactions. Risk benefit ratio favors no change other than as noted in my dictated progress note. Diagnosis: Problems: (1) Impulse control disorder, unspecified (2) Anxiety disorder, unspecified (3) Major depressive disorder, recurrent, severe with psychotic features (4) Chronic pain ESE LEVI MD May 19, 2021 20:39
--- NOTE | 2021-05-19 21:04 | PDOC ---
Exam Note: Josef Note: This note is a late entry for 05/18/2021 covers elements not covered in my initial note. Subjective: The patient was seen individually in the evening of 05/18/2021 with Kathy MODI, discussed and reviewed the chart. The patient slept 6-1/2 hours previous night. He tried to throw himself on the floor earlier today. This evening as I met with him, he was in the dining room watching the [employer] play the [employer] and was following along with the football game very closely. He states he had some behaviors earlier today but is trying to control things. Review of Systems: Ambulation impaired in wheelchair. He does complain of back pain. No CV, , pulmonary, eye system symptoms on review. Mental Status Exam: The patient is reasonably oriented. Speech coherent. Abstraction fair. Computation impaired. Language function intact. Mood and affect still somewhat anxious, labile. No suicidal or homicidal ideation. Laboratory Data: Reviewed. Impression: Major depressive disorder with psychotic features. Anxiety disorder, unspecified. Impulse control disorder unspecified. Plan: No change from initial note. Assessment: Vital Signs/I&O: Vital Signs Date Time Temp Pulse Resp B/P (MAP) Pulse Ox O2 Delivery O2 Flow Rate FiO2 05/19/21 19:59 90 113/82 05/19/21 15:42 97.5 18 96 05/19/21 05:56 Room Air 05/18/21 06:23 2.0 I & O0 05/18/21 05/18/21 05/19/21 15:00 23:00 07:00 Intake Total 960 ml 840 ml Balance 960 ml 840 ml Labs: Laboratory Tests Test 05/19/21 05:51 05/19/21 07:30 05/19/21 11:58 05/19/21 16:38 White Blood Count 6.0 x10^3/uL (4.0-11.0) Red Blood Count 4.19 x10^6/uL (4.30-5.70) L Hemoglobin 13.0 g/dL (13.0-17.5) Hematocrit 39.5 % (39.0-53.0) Mean Corpuscular Volume 94 fL (79-100) Mean Corpuscular Hemoglobin 31 pg (25-35) Mean Corpuscular Hemoglobin Concent 33 g/dL (31-37) Red Cell Distribution Width 14.4 % (11.5-14.5) Platelet Count 223 x10^3/uL (140-400) Neutrophils (%) (Auto) 67 % (31-73) Lymphocytes (%) (Auto) 18 % (24-48) L Monocytes (%) (Auto) 13 % (0-9) H Eosinophils (%) (Auto) 2 % (0-3) Basophils (%) (Auto) 1 % (0-3) Neutrophils # (Auto) 4.1 x10^3uL (1.8-7.7) Lymphocytes # (Auto) 1.1 x10^3/uL (1.0-4.8) Monocytes # (Auto) 0.8 x10^3/uL (0.0-1.1) Eosinophils # (Auto) 0.1 x10^3/uL (0.0-0.7) Basophils # (Auto) 0.0 x10^3/uL (0.0-0.2) Sodium Level 138 mmol/L (136-145) Potassium Level 4.7 mmol/L (3.5-5.1) Chloride Level 104 mmol/L (98-107) Carbon Dioxide Level 25 mmol/L (21-32) Anion Gap 9 (6-14) Blood Urea Nitrogen 36 mg/dL (8-26) H Creatinine 1.2 mg/dL (0.7-1.3) Estimated GFR (Cockcroft-Gault) 60.4 Glucose Level 118 mg/dL (70-99) H Calcium Level 8.9 mg/dL (8.5-10.1) Glucose (Fingerstick) 138 mg/dL (70-99) H 85 mg/dL (70-99) 138 mg/dL (70-99) H Test 05/19/21 19:32 Glucose (Fingerstick) 147 mg/dL (70-99) H Current Medications: Meds: Laboratory Tests Test 05/19/21 05:51 05/19/21 07:30 05/19/21 11:58 05/19/21 16:38 White Blood Count 6.0 x10^3/uL Red Blood Count 4.19 x10^6/uL Hemoglobin 13.0 g/dL Hematocrit 39.5 % Mean Corpuscular Volume 94 fL Mean Corpuscular Hemoglobin 31 pg Mean Corpuscular Hemoglobin Concent 33 g/dL Red Cell Distribution Width 14.4 % Platelet Count 223 x10^3/uL Neutrophils (%) (Auto) 67 % Lymphocytes (%) (Auto) 18 % Monocytes (%) (Auto) 13 % Eosinophils (%) (Auto) 2 % Basophils (%) (Auto) 1 % Neutrophils # (Auto) 4.1 x10^3uL Lymphocytes # (Auto) 1.1 x10^3/uL Monocytes # (Auto) 0.8 x10^3/uL Eosinophils # (Auto) 0.1 x10^3/uL Basophils # (Auto) 0.0 x10^3/uL Sodium Level 138 mmol/L Potassium Level 4.7 mmol/L Chloride Level 104 mmol/L Carbon Dioxide Level 25 mmol/L Anion Gap 9 Blood Urea Nitrogen 36 mg/dL Creatinine 1.2 mg/dL Estimated GFR (Cockcroft-Gault) 60.4 Glucose Level 118 mg/dL Calcium Level 8.9 mg/dL Glucose (Fingerstick) 138 mg/dL 85 mg/dL 138 mg/dL Test 05/19/21 19:32 Glucose (Fingerstick) 147 mg/dL Current Medications Medications (Trade) Dose Ordered Sig/Nicky Route PRN Reason Start Time Stop Time Status Last Admin Dose Admin Acetaminophen (Tylenol) 650 mg PRN Q6HRS PRN PO MILD PAIN / TEMP > 100.3'F 04/25/21 12:15 04/25/21 14:18 DC Multi-Ingredient Ointment (Analgesic [place]) 1 neelima PRN QID PRN TP MUSCLE PAIN 04/25/21 12:15 05/01/21 16:28 Al Hydroxide/Mg Hydroxide (Mylanta Plus Xs) 15 ml PRN AFTMEALHC PRN PO DYSPEPSIA 04/25/21 12:15 04/26/21 10:24 DC Magnesium Hydroxide (Milk Of Magnesia) 2,400 mg PRN QHS PRN PO 2nd choice CONSTIPATION 04/25/21 12:15 04/26/21 10:24 DC Acetaminophen (Tylenol) 1,000 mg TID PO 04/25/21 14:00 04/26/21 10:24 DC 04/26/21 08:36 Aspirin (Aspirin Chewable) 81 mg DAILY PO 04/26/21 09:00 05/19/21 08:34 Bisacodyl (Dulcolax Tab) 10 mg PRN BID PRN PO 3rd choice CONSTIPATION 04/25/21 13:45 04/26/21 10:24 DC Bisacodyl (Dulcolax Supp) 10 mg PRN DAILY PRN RC 4th choice CONSTIPATION 04/25/21 13:45 04/26/21 10:24 DC Clopidogrel Bisulfate (Plavix) 75 mg DAILY PO 04/26/21 09:00 05/19/21 08:34 Duloxetine HCl (Cymbalta) 60 mg DAILY PO 04/26/21 09:00 04/27/21 20:03 DC 04/27/21 09:21 Guaifenesin (Robitussin) 200 mg PRN Q4HRS PRN PO COUGH 04/25/21 13:45 04/26/21 10:24 DC Hydralazine HCl (Apresoline) 25 mg TID PO 04/25/21 14:00 04/26/21 10:24 DC 04/26/21 08:34 Hydrocortisone (Proctosol-Hc) 1 neelima BID RC 04/25/21 21:00 04/28/21 11:07 DC 04/27/21 09:00 Lidocaine (Lidoderm) 1 patch DAILY TP 04/25/21 18:00 05/07/21 16:12 DC 05/07/21 08:22 Metolazone (Zaroxolyn) 2.5 mg QODAY PO 04/26/21 09:00 04/26/21 10:24 DC 04/26/21 08:34 Nystatin (Nystop) 1 neelima BID TP 04/25/21 21:00 04/26/21 10:24 DC 04/26/21 08:43 Polyethylene Glycol (miraLAX) 17 gm PRN DAILY PRN PO 1st choice CONSTIPATION 04/25/21 13:45 05/04/21 13:02 Potassium Chloride (Klor-Con) 30 meq DAILY PO 04/26/21 09:00 05/19/21 08:33 Sennosides (Senna) 8.6 mg PRN QHS PRN PO constipation 04/25/21 13:45 04/26/21 10:24 DC Simethicone (Gas-X) 80 mg PRN BID PRN PO gas 04/25/21 13:45 04/26/21 10:24 DC Spironolactone (Aldactone) 25 mg DAILY PO 04/26/21 09:00 04/26/21 10:24 DC 04/26/21 08:34 Tramadol HCl (Ultram) 100 mg PRN Q4HRS PRN PO PAIN 04/25/21 13:45 04/27/21 10:01 DC 04/27/21 06:06 Trazodone HCl (Desyrel) 200 mg HS PO 04/25/21 21:00 05/19/21 19:58 Non-Formulary Medication (Arginine/ Glutamine/Calcium Hmb (Stephen Packet)) 1 each BID PO 04/25/21 21:00 04/25/21 15:06 DC Atorvastatin Calcium (Lipitor) 80 mg QHS PO 04/25/21 21:00 05/19/21 19:59 Bumetanide (Bumex) 2 mg DAILY PO 04/26/21 09:00 04/30/21 10:39 DC 04/30/21 08:57 Al Hydroxide/Mg Hydroxide (Mylanta Plus Xs) 30 ml PRN Q12HR PRN PO DYSPEPSIA 04/25/21 14:45 04/26/21 10:24 DC 04/26/21 01:37 Carvedilol (Coreg) 37.5 mg BID PO 04/25/21 21:00 05/19/21 19:59 Cyclobenzaprine HCl (Flexeril) 5 mg PRN BID PRN PO MUSCLE SPASMS 04/25/21 14:45 04/26/21 10:24 DC Insulin Human Lispro (HumaLOG) 8 units TIDBFRMEAL SQ 04/25/21 16:30 05/15/21 13:44 DC 05/09/21 13:03 Insulin Glargine (Lantus Syringe) 48 unit QHS SQ 04/25/21 21:00 05/10/21 16:26 DC 05/07/21 21:12 Loperamide HCl (Imodium) 2 mg PRN Q1HR PRN PO severe DIARRHEA 04/25/21 15:00 04/26/21 10:24 DC Loperamide HCl (Imodium) 2 mg PRN Q6HRS PRN PO MILD-MOD DIARRHEA 04/25/21 15:15 04/26/21 10:24 DC Melatonin (Melatonin) 9 mg QHS PO 04/25/21 21:00 04/26/21 10:24 DC 04/25/21 21:29 Non-Formulary Medication (Menthol/Zinc Oxide (Calmoseptine Ointment)) 3.5 gm BID TP 04/25/21 21:00 04/25/21 14:56 DC Multi-Ingred Cream/Lotion/Oil/ Oint (Hydrocerin) 1 neelima BID TP 04/25/21 21:00 04/26/21 10:24 DC 04/26/21 08:40 Multivitamins/ Calcium (Thera-M Plus) 1 tab DAILY PO 04/26/21 09:00 04/26/21 10:24 DC 04/26/21 08:34 Phenyleph/Shark Oil/Min Oil/Petrol (Preparation H) 1 neelima PRN Q12HR PRN RC RECTAL PAIN 04/25/21 15:00 04/26/21 10:24 DC Linagliptin (Tradjenta) 5 mg DAILY PO 04/26/21 09:00 05/19/21 08:33 Saliva Substitute (Biotene Moisturizing Mouth) 1 spray PRN Q1HR PRN PO DRY MOUTH 04/25/21 15:15 Duloxetine HCl (Cymbalta) 30 mg DAILY PO 04/27/21 09:00 04/27/21 07:48 DC Oxycodone/ Acetaminophen (Percocet 10/325) 1 tab PRN Q6HRS PRN PO MOD-SEV PAIN 04/27/21 10:00 05/19/21 19:58 Duloxetine HCl (Cymbalta) 90 mg DAILY PO 04/28/21 09:00 05/19/21 08:33 Hydrocortisone (Proctosol-Hc) 1 neelima PRN BID PRN RC RECTAL PAIN 04/28/21 21:00 Aripiprazole (Abilify) 2.5 mg DAILY PO 04/29/21 09:00 04/29/21 20:16 DC 04/29/21 09:23 Aripiprazole (Abilify) 5 mg DAILY PO 04/30/21 09:00 05/12/21 12:03 DC 05/12/21 09:07 Acetaminophen (Tylenol) 1,000 mg PRN Q6HRS PRN PO MILD PAIN 1-3 05/02/21 11:00 05/19/21 17:23 Al Hydroxide/Mg Hydroxide (Mylanta Plus Xs) 30 ml PRN AFTMEALHC PRN PO DYSPEPSIA 05/03/21 10:45 05/19/21 11:39 Lidocaine (Lidoderm) 2 patch DAILY TP 05/07/21 16:15 05/19/21 08:35 Miscellaneous (Lidoderm Patch Removal) 1 ea QHS MC 05/07/21 21:00 05/19/21 20:00 Glucose (Insta-Glucose) 15 gm PRN Q15MIN PRN PO LOW BLOOD SUGAR 05/09/21 18:00 Melatonin (Melatonin) 3 mg PRN QHS PRN PO INSOMNIA 05/09/21 21:00 05/10/21 03:08 DC Melatonin (Melatonin) 3 mg HS PO 05/10/21 21:00 05/11/21 20:19 DC 05/11/21 20:06 Insulin Glargine (Lantus Syringe) 40 unit QHS SQ 05/10/21 21:00 05/15/21 13:44 DC 05/12/21 20:15 Melatonin (Melatonin) 6 mg HS PO 05/12/21 21:00 05/19/21 19:59 Docusate Sodium (Colace) 100 mg DAILY PO 05/12/21 09:00 05/19/21 08:33 Aripiprazole (Abilify) 7.5 mg DAILY PO 05/13/21 09:00 05/19/21 08:33 Nystatin (Nystop) 1 neelmia BID TP 05/15/21 21:00 05/19/21 20:00 Insulin Glargine (Lantus Syringe) 25 unit QHS SQ 05/15/21 21:00 05/18/21 20:21 Insulin Human Lispro (HumaLOG) 0-5 UNITS TIDWMEALS SQ 05/15/21 17:00 Dextrose (Dextrose 50%-Water Syringe) 12.5 gm PRN Q15MIN PRN IV SEE COMMENTS 05/15/21 13:45 I have reviewed the current psychotropics carefully including drug interactions. Risk benefit ratio favors no change other than as noted in my dictated progress note. Diagnosis: Problems: (1) Impulse control disorder, unspecified (2) Anxiety disorder, unspecified (3) Major depressive disorder, recurrent, severe with psychotic features (4) Chronic pain ESE LEVI MD May 19, 2021 21:04
--- NOTE | 2021-05-19 21:04 | PDOC ---
Exam Note: Josef Note: Please also refer to the separate dictated note~for this date of service dictated separately.~Patient seen individually. Discussed the patient with Nursing staff reviewed the chart.~Reviewed interim history and current functioning. Reviewed vital signs,~Labs/ Radiology~and current medications noted below. Continue current treatment with the changes noted in the dictated addendum note Assessment: Vital Signs/I&O: Vital Signs Date Time Temp Pulse Resp B/P (MAP) Pulse Ox O2 Delivery O2 Flow Rate FiO2 05/19/21 19:59 90 113/82 05/19/21 15:42 97.5 18 96 05/19/21 05:56 Room Air 05/18/21 06:23 2.0 I & O 05/18/21 05/18/21 05/19/21 15:00 23:00 07:00 Intake Total 960 ml 840 ml Balance 960 ml 840 ml Labs: Laboratory Tests Test 05/19/21 05:51 05/19/21 07:30 05/19/21 11:58 05/19/21 16:38 White Blood Count 6.0 x10^3/uL (4.0-11.0) Red Blood Count 4.19 x10^6/uL (4.30-5.70) L Hemoglobin 13.0 g/dL (13.0-17.5) Hematocrit 39.5 % (39.0-53.0) Mean Corpuscular Volume 94 fL (79-100) Mean Corpuscular Hemoglobin 31 pg (25-35) Mean Corpuscular Hemoglobin Concent 33 g/dL (31-37) Red Cell Distribution Width 14.4 % (11.5-14.5) Platelet Count 223 x10^3/uL (140-400) Neutrophils (%) (Auto) 67 % (31-73) Lymphocytes (%) (Auto) 18 % (24-48) L Monocytes (%) (Auto) 13 % (0-9) H Eosinophils (%) (Auto) 2 % (0-3) Basophils (%) (Auto) 1 % (0-3) Neutrophils # (Auto) 4.1 x10^3uL (1.8-7.7) Lymphocytes # (Auto) 1.1 x10^3/uL (1.0-4.8) Monocytes # (Auto) 0.8 x10^3/uL (0.0-1.1) Eosinophils # (Auto) 0.1 x10^3/uL (0.0-0.7) Basophils # (Auto) 0.0 x10^3/uL (0.0-0.2) Sodium Level 138 mmol/L (136-145) Potassium Level 4.7 mmol/L (3.5-5.1) Chloride Level 104 mmol/L (98-107) Carbon Dioxide Level 25 mmol/L (21-32) Anion Gap 9 (6-14) Blood Urea Nitrogen 36 mg/dL (8-26) H Creatinine 1.2 mg/dL (0.7-1.3) Estimated GFR (Cockcroft-Gault) 60.4 Glucose Level 118 mg/dL (70-99) H Calcium Level 8.9 mg/dL (8.5-10.1) Glucose (Fingerstick) 138 mg/dL (70-99) H 85 mg/dL (70-99) 138 mg/dL (70-99) H Test 05/19/21 19:32 Glucose (Fingerstick) 147 mg/dL (70-99) H Current Medications: Meds: Laboratory Tests Test 05/19/21 05:51 05/19/21 07:30 05/19/21 11:58 05/19/21 16:38 White Blood Count 6.0 x10^3/uL Red Blood Count 4.19 x10^6/uL Hemoglobin 13.0 g/dL Hematocrit 39.5 % Mean Corpuscular Volume 94 fL Mean Corpuscular Hemoglobin 31 pg Mean Corpuscular Hemoglobin Concent 33 g/dL Red Cell Distribution Width 14.4 % Platelet Count 223 x10^3/uL Neutrophils (%) (Auto) 67 % Lymphocytes (%) (Auto) 18 % Monocytes (%) (Auto) 13 % Eosinophils (%) (Auto) 2 % Basophils (%) (Auto) 1 % Neutrophils # (Auto) 4.1 x10^3uL Lymphocytes # (Auto) 1.1 x10^3/uL Monocytes # (Auto) 0.8 x10^3/uL Eosinophils # (Auto) 0.1 x10^3/uL Basophils # (Auto) 0.0 x10^3/uL Sodium Level 138 mmol/L Potassium Level 4.7 mmol/L Chloride Level 104 mmol/L Carbon Dioxide Level 25 mmol/L Anion Gap 9 Blood Urea Nitrogen 36 mg/dL Creatinine 1.2 mg/dL Estimated GFR (Cockcroft-Gault) 60.4 Glucose Level 118 mg/dL Calcium Level 8.9 mg/dL Glucose (Fingerstick) 138 mg/dL 85 mg/dL 138 mg/dL Test 05/19/21 19:32 Glucose (Fingerstick) 147 mg/dL Current Medications Medications (Trade) Dose Ordered Sig/Nicky Route PRN Reason Start Time Stop Time Status Last Admin Dose Admin Acetaminophen (Tylenol) 650 mg PRN Q6HRS PRN PO MILD PAIN / TEMP > 100.3'F 04/25/21 12:15 04/25/21 14:18 DC Multi-Ingredient Ointment (Analgesic [place]) 1 neelima PRN QID PRN TP MUSCLE PAIN 04/25/21 12:15 05/01/21 16:28 Al Hydroxide/Mg Hydroxide (Mylanta Plus Xs) 15 ml PRN AFTMEALHC PRN PO DYSPEPSIA 04/25/21 12:15 04/26/21 10:24 DC Magnesium Hydroxide (Milk Of Magnesia) 2,400 mg PRN QHS PRN PO 2nd choice CONSTIPATION 04/25/21 12:15 04/26/21 10:24 DC Acetaminophen (Tylenol) 1,000 mg TID PO 04/25/21 14:00 04/26/21 10:24 DC 04/26/21 08:36 Aspirin (Aspirin Chewable) 81 mg DAILY PO 04/26/21 09:00 05/19/21 08:34 Bisacodyl (Dulcolax Tab) 10 mg PRN BID PRN PO 3rd choice CONSTIPATION 04/25/21 13:45 04/26/21 10:24 DC Bisacodyl (Dulcolax Supp) 10 mg PRN DAILY PRN RC 4th choice CONSTIPATION 04/25/21 13:45 04/26/21 10:24 DC Clopidogrel Bisulfate (Plavix) 75 mg DAILY PO 04/26/21 09:00 05/19/21 08:34 Duloxetine HCl (Cymbalta) 60 mg DAILY PO 04/26/21 09:00 04/27/21 20:03 DC 04/27/21 09:21 Guaifenesin (Robitussin) 200 mg PRN Q4HRS PRN PO COUGH 04/25/21 13:45 04/26/21 10:24 DC Hydralazine HCl (Apresoline) 25 mg TID PO 04/25/21 14:00 04/26/21 10:24 DC 04/26/21 08:34 Hydrocortisone (Proctosol-Hc) 1 neelima BID RC 04/25/21 21:00 04/28/21 11:07 DC 04/27/21 09:00 Lidocaine (Lidoderm) 1 patch DAILY TP 04/25/21 18:00 05/07/21 16:12 DC 05/07/21 08:22 Metolazone (Zaroxolyn) 2.5 mg QODAY PO 04/26/21 09:00 04/26/21 10:24 DC 04/26/21 08:34 Nystatin (Nystop) 1 neelima BID TP 04/25/21 21:00 04/26/21 10:24 DC 04/26/21 08:43 Polyethylene Glycol (miraLAX) 17 gm PRN DAILY PRN PO 1st choice CONSTIPATION 04/25/21 13:45 05/04/21 13:02 Potassium Chloride (Klor-Con) 30 meq DAILY PO 04/26/21 09:00 05/19/21 08:33 Sennosides (Senna) 8.6 mg PRN QHS PRN PO constipation 04/25/21 13:45 04/26/21 10:24 DC Simethicone (Gas-X) 80 mg PRN BID PRN PO gas 04/25/21 13:45 04/26/21 10:24 DC Spironolactone (Aldactone) 25 mg DAILY PO 04/26/21 09:00 04/26/21 10:24 DC 04/26/21 08:34 Tramadol HCl (Ultram) 100 mg PRN Q4HRS PRN PO PAIN 04/25/21 13:45 04/27/21 10:01 DC 04/27/21 06:06 Trazodone HCl (Desyrel) 200 mg HS PO 04/25/21 21:00 05/19/21 19:58 Non-Formulary Medication (Arginine/ Glutamine/Calcium Hmb (Stephen Packet)) 1 each BID PO 04/25/21 21:00 04/25/21 15:06 DC Atorvastatin Calcium (Lipitor) 80 mg QHS PO 04/25/21 21:00 05/19/21 19:59 Bumetanide (Bumex) 2 mg DAILY PO 04/26/21 09:00 04/30/21 10:39 DC 04/30/21 08:57 Al Hydroxide/Mg Hydroxide (Mylanta Plus Xs) 30 ml PRN Q12HR PRN PO DYSPEPSIA 04/25/21 14:45 04/26/21 10:24 DC 04/26/21 01:37 Carvedilol (Coreg) 37.5 mg BID PO 04/25/21 21:00 05/19/21 19:59 Cyclobenzaprine HCl (Flexeril) 5 mg PRN BID PRN PO MUSCLE SPASMS 04/25/21 14:45 04/26/21 10:24 DC Insulin Human Lispro (HumaLOG) 8 units TIDBFRMEAL SQ 04/25/21 16:30 05/15/21 13:44 DC 05/09/21 13:03 Insulin Glargine (Lantus Syringe) 48 unit QHS SQ 04/25/21 21:00 05/10/21 16:26 DC 05/07/21 21:12 Loperamide HCl (Imodium) 2 mg PRN Q1HR PRN PO severe DIARRHEA 04/25/21 15:00 04/26/21 10:24 DC Loperamide HCl (Imodium) 2 mg PRN Q6HRS PRN PO MILD-MOD DIARRHEA 04/25/21 15:15 04/26/21 10:24 DC Melatonin (Melatonin) 9 mg QHS PO 04/25/21 21:00 04/26/21 10:24 DC 04/25/21 21:29 Non-Formulary Medication (Menthol/Zinc Oxide (Calmoseptine Ointment)) 3.5 gm BID TP 04/25/21 21:00 04/25/21 14:56 DC Multi-Ingred Cream/Lotion/Oil/ Oint (Hydrocerin) 1 neelima BID TP 04/25/21 21:00 04/26/21 10:24 DC 04/26/21 08:40 Multivitamins/ Calcium (Thera-M Plus) 1 tab DAILY PO 04/26/21 09:00 04/26/21 10:24 DC 04/26/21 08:34 Phenyleph/Shark Oil/Min Oil/Petrol (Preparation H) 1 neelima PRN Q12HR PRN RC RECTAL PAIN 04/25/21 15:00 04/26/21 10:24 DC Linagliptin (Tradjenta) 5 mg DAILY PO 04/26/21 09:00 05/19/21 08:33 Saliva Substitute (Biotene Moisturizing Mouth) 1 spray PRN Q1HR PRN PO DRY MOUTH 04/25/21 15:15 Duloxetine HCl (Cymbalta) 30 mg DAILY PO 04/27/21 09:00 04/27/21 07:48 DC Oxycodone/ Acetaminophen (Percocet 10) 1 tab PRN Q6HRS PRN PO MOD-SEV PAIN 04/27/21 10:00 05/19/21 19:58 Duloxetine HCl (Cymbalta) 90 mg DAILY PO 04/28/21 09:00 05/19/21 08:33 Hydrocortisone (Proctosol-Hc) 1 neelima PRN BID PRN RC RECTAL PAIN 04/28/21 21:00 Aripiprazole (Abilify) 2.5 mg DAILY PO 04/29/21 09:00 04/29/21 20:16 DC 04/29/21 09:23 Aripiprazole (Abilify) 5 mg DAILY PO 04/30/21 09:00 05/12/21 12:03 DC 05/12/21 09:07 Acetaminophen (Tylenol) 1,000 mg PRN Q6HRS PRN PO MILD PAIN 1-3 05/02/21 11:00 05/19/21 17:23 Al Hydroxide/Mg Hydroxide (Mylanta Plus Xs) 30 ml PRN AFTMEALHC PRN PO DYSPEPSIA 05/03/21 10:45 05/19/21 11:39 Lidocaine (Lidoderm) 2 patch DAILY TP 05/07/21 16:15 05/19/21 08:35 Miscellaneous (Lidoderm Patch Removal) 1 ea QHS MC 05/07/21 21:00 05/19/21 20:00 Glucose (Insta-Glucose) 15 gm PRN Q15MIN PRN PO LOW BLOOD SUGAR 05/09/21 18:00 Melatonin (Melatonin) 3 mg PRN QHS PRN PO INSOMNIA 05/09/21 21:00 05/10/21 03:08 DC Melatonin (Melatonin) 3 mg HS PO 05/10/21 21:00 05/11/21 20:19 DC 05/11/21 20:06 Insulin Glargine (Lantus Syringe) 40 unit QHS SQ 05/10/21 21:00 05/15/21 13:44 DC 05/12/21 20:15 Melatonin (Melatonin) 6 mg HS PO 05/12/21 21:00 05/19/21 19:59 Docusate Sodium (Colace) 100 mg DAILY PO 05/12/21 09:00 05/19/21 08:33 Aripiprazole (Abilify) 7.5 mg DAILY PO 05/13/21 09:00 05/19/21 08:33 Nystatin (Nystop) 1 neelima BID TP 05/15/21 21:00 05/19/21 20:00 Insulin Glargine (Lantus Syringe) 25 unit QHS SQ 05/15/21 21:00 05/18/21 20:21 Insulin Human Lispro (HumaLOG) 0-5 UNITS TIDWMEALS SQ 05/15/21 17:00 Dextrose (Dextrose 50%-Water Syringe) 12.5 gm PRN Q15MIN PRN IV SEE COMMENTS 05/15/21 13:45 I have reviewed the current psychotropics carefully including drug interactions. Risk benefit ratio favors no change other than as noted in my dictated progress note. Diagnosis: Problems: (1) Impulse control disorder, unspecified (2) Anxiety disorder, unspecified (3) Major depressive disorder, recurrent, severe with psychotic features (4) Chronic pain ESE LEVI MD May 19, 2021 21:04
[2021-05-19] MEDS: INSULIN GLARGINE SYRINGE. SQ SCH (21:24)
--- NOTE | 2021-05-19 23:26 | NUR ---
Nursing Note Pt is cooperative this pm, takes po meds no complaints percocet given for back pain. Pt is a bit grandiose, states that we have the best staff, we are all professionals, and know how to impact patients lives. He comments on interactions witnessed with peers, and how well staff handle things. He rounds out the conversation with "What is the official address of this place? I'm planning to send a large platter of chocolate covered strawberries to this unit to celebrate all that have taken the time to be nice to me and provide outstanding care." Pt somewhat hyperverbal but redirects easily. Wounds to heel and bleeding toe are dressed dry and intact. Pt asks for snacks but is not out of line in his requests or attention seeking as the previous night. Pt states "I have good news! Dr. Jacobs said I can go this week, I'm not sure who needs that information but it important that you all know that you will be losing me to my home tomorrow, Wednesday at the latest." I informed him that he needs to discuss with SW. Pt now resting in bed.
[2021-05-20 05:35] VITALS: BP 123/86
[2021-05-20] MEDS: POTASSIUM CHLORIDE 10 MEQ TABLET.ER. PO SCH (08:16)
[2021-05-20] MEDS: DULoxetine HCL 30 MG CAPSULE.DR PO SCH (08:16)
[2021-05-20] MEDS: ARIPiprazole 5 MG TABLET PO SCH (08:16)
[2021-05-20] MEDS: CLOPIDOGREL BISULFATE 75 MG TABLET PO SCH (08:17)
[2021-05-20] MEDS: LINAGLIPTIN 5 MG TABLET PO SCH (08:17)
[2021-05-20] MEDS: ASPIRIN CHEWABLE 81 MG TABLET. PO SCH (08:17)
[2021-05-20] MEDS: DOCUSATE SODIUM 100 MG CAPSULE PO SCH (08:17)
[2021-05-20] MEDS: CARVEDILOL 12.5 MG TABLET PO SCH ×2 (08:17→20:27)
[2021-05-20] MEDS: LIDOCAINE (700MG/PATCH) PATCH. TP SCH (08:19)
[2021-05-20] MEDS: INSULIN LISPRO 300 UNITS/3 ML VIAL. SQ SCH ×3 (08:26→17:00)
[2021-05-20] MEDS: NYSTATIN TOPICAL POWDER 15GM BOTTLE. TP SCH ×2 (08:26→20:27)
--- NOTE | 2021-05-20 08:31 | NUR ---
Wound/Ostomy Care Wound Type/Assessment: Right heel DFU with red hypergranulation and slough, improving in depth. Periwound is no longer reddened. Treatment Recommendations/Plan: Cleanse wound, apply hydrofera blue, cover with ABD and kerlix. Change every Q2 days. Heel medix boot at all times Education provided: PU prevention and WC POC, pt v/u of teaching Offloading surface/device: heel medix boot and order WC cushion. Recommended Referrals/Tests: na. Discharge Recommendations for dressings: see above
[2021-05-20] MEDS: MAG HYDROX/AL HYDROX/SIMETH 30 ML ORAL.SUSP PO PRN (09:49)
[2021-05-20 15:16] VITALS: BP 120/82
--- NOTE | 2021-05-20 16:05 | NUR ---
[facility] Social Work Discharge Planning Form Patient Name MARTA ARIZA Admit Date: 04/25/21 DISCHARGE PLAN Discharge Destination: [facility] Care Assessment: No Level II Assessment: No Transportation: [facility] will pick pt up at 1300 on 05/22/21 Special Instructions/Notes: Please fax signed med list and visit summary to number below. DISCHARGE TO FACILITY Facility: [facility] Phone: (Main #)[phone] Address: [facility] [place] [address] Contact Name: IGNACIO Stroud [phone] PCP: Dr. Daisy Sanchez/ Abby Pichardo NP Psychiatrist: Dr. Ramirez
[2021-05-20] MEDS: ATORVASTATIN CALCIUM 20 MG TABLET PO SCH (20:23)
[2021-05-20] MEDS: traZODone 100 MG TABLET. PO SCH (20:23)
[2021-05-20] MEDS: MELATONIN 3 MG TABLET PO SCH (20:24)
[2021-05-20] MEDS: oxyCODONE/APAP 10/325 1 TAB TABLET PO PRN (20:37)
--- NOTE | 2021-05-20 20:46 | PDOC ---
Exam Note: Josef Note: Please also refer to the separate dictated note~for this date of service dictated separately.~Patient seen individually. Discussed the patient with Nursing staff reviewed the chart.~Reviewed interim history and current functioning. Reviewed vital signs,~Labs/ Radiology~and current medications noted below. Continue current treatment with the changes noted in the dictated addendum note Assessment: Vital Signs/I&O: Vital Signs Date Time Temp Pulse Resp B/P (MAP) Pulse Ox O2 Delivery O2 Flow Rate FiO2 05/20/21 20:27 94 120/82 05/20/21 15:16 98.4 18 98 Room Air 05/18/21 06:23 2.0 I & O 05/19/21 05/19/21 05/20/21 15:00 23:00 07:00 Intake Total 600 ml 480 ml Balance 600 ml 480 ml Labs: Laboratory Tests Test 05/20/21 07:29 05/20/21 11:38 05/20/21 16:51 05/20/21 20:04 Glucose (Fingerstick) 167 mg/dL (70-99) H 82 mg/dL (70-99) 144 mg/dL (70-99) H 141 mg/dL (70-99) H Current Medications: Meds: Laboratory Tests Test 05/20/21 07:29 05/20/21 11:38 05/20/21 16:51 05/20/21 20:04 Glucose (Fingerstick) 167 mg/dL 82 mg/dL 144 mg/dL 141 mg/dL Current Medications Medications (Trade) Dose Ordered Sig/Nicky Route PRN Reason Start Time Stop Time Status Last Admin Dose Admin Acetaminophen (Tylenol) 650 mg PRN Q6HRS PRN PO MILD PAIN / TEMP > 100.3'F 04/25/21 12:15 04/25/21 14:18 DC Multi-Ingredient Ointment (Analgesic [place]) 1 neelima PRN QID PRN TP MUSCLE PAIN 04/25/21 12:15 05/01/21 16:28 Al Hydroxide/Mg Hydroxide (Mylanta Plus Xs) 15 ml PRN AFTMEALHC PRN PO DYSPEPSIA 04/25/21 12:15 04/26/21 10:24 DC Magnesium Hydroxide (Milk Of Magnesia) 2,400 mg PRN QHS PRN PO 2nd choice CONSTIPATION 04/25/21 12:15 04/26/21 10:24 DC Acetaminophen (Tylenol) 1,000 mg TID PO 04/25/21 14:00 04/26/21 10:24 DC 04/26/21 08:36 Aspirin (Aspirin Chewable) 81 mg DAILY PO 04/26/21 09:00 05/20/21 08:17 Bisacodyl (Dulcolax Tab) 10 mg PRN BID PRN PO 3rd choice CONSTIPATION 04/25/21 13:45 04/26/21 10:24 DC Bisacodyl (Dulcolax Supp) 10 mg PRN DAILY PRN RC 4th choice CONSTIPATION 04/25/21 13:45 04/26/21 10:24 DC Clopidogrel Bisulfate (Plavix) 75 mg DAILY PO 04/26/21 09:00 05/20/21 08:17 Duloxetine HCl (Cymbalta) 60 mg DAILY PO 04/26/21 09:00 04/27/21 20:03 DC 04/27/21 09:21 Guaifenesin (Robitussin) 200 mg PRN Q4HRS PRN PO COUGH 04/25/21 13:45 04/26/21 10:24 DC Hydralazine HCl (Apresoline) 25 mg TID PO 04/25/21 14:00 04/26/21 10:24 DC 04/26/21 08:34 Hydrocortisone (Proctosol-Hc) 1 neelima BID RC 04/25/21 21:00 04/28/21 11:07 DC 04/27/21 09:00 Lidocaine (Lidoderm) 1 patch DAILY TP 04/25/21 18:00 05/07/21 16:12 DC 05/07/21 08:22 Metolazone (Zaroxolyn) 2.5 mg QODAY PO 04/26/21 09:00 04/26/21 10:24 DC 04/26/21 08:34 Nystatin (Nystop) 1 neelima BID TP 04/25/21 21:00 04/26/21 10:24 DC 04/26/21 08:43 Polyethylene Glycol (miraLAX) 17 gm PRN DAILY PRN PO 1st choice CONSTIPATION 04/25/21 13:45 05/04/21 13:02 Potassium Chloride (Klor-Con) 30 meq DAILY PO 04/26/21 09:00 05/20/21 08:16 Sennosides (Senna) 8.6 mg PRN QHS PRN PO constipation 04/25/21 13:45 04/26/21 10:24 DC Simethicone (Gas-X) 80 mg PRN BID PRN PO gas 04/25/21 13:45 04/26/21 10:24 DC Spironolactone (Aldactone) 25 mg DAILY PO 04/26/21 09:00 04/26/21 10:24 DC 04/26/21 08:34 Tramadol HCl (Ultram) 100 mg PRN Q4HRS PRN PO PAIN 04/25/21 13:45 04/27/21 10:01 DC 04/27/21 06:06 Trazodone HCl (Desyrel) 200 mg HS PO 04/25/21 21:00 05/20/21 20:23 Non-Formulary Medication (Arginine/ Glutamine/Calcium Hmb ([place] Packet)) 1 each BID PO 04/25/21 21:00 04/25/21 15:06 DC Atorvastatin Calcium (Lipitor) 80 mg QHS PO 04/25/21 21:00 05/20/21 20:23 Bumetanide (Bumex) 2 mg DAILY PO 04/26/21 09:00 04/30/21 10:39 DC 04/30/21 08:57 Al Hydroxide/Mg Hydroxide (Mylanta Plus Xs) 30 ml PRN Q12HR PRN PO DYSPEPSIA 04/25/21 14:45 04/26/21 10:24 DC 04/26/21 01:37 Carvedilol (Coreg) 37.5 mg BID PO 04/25/21 21:00 05/20/21 20:27 Cyclobenzaprine HCl (Flexeril) 5 mg PRN BID PRN PO MUSCLE SPASMS 04/25/21 14:45 04/26/21 10:24 DC Insulin Human Lispro (HumaLOG) 8 units TIDBFRMEAL SQ 04/25/21 16:30 05/15/21 13:44 DC 05/09/21 13:03 Insulin Glargine (Lantus Syringe) 48 unit QHS SQ 04/25/21 21:00 05/10/21 16:26 DC 05/07/21 21:12 Loperamide HCl (Imodium) 2 mg PRN Q1HR PRN PO severe DIARRHEA 04/25/21 15:00 04/26/21 10:24 DC Loperamide HCl (Imodium) 2 mg PRN Q6HRS PRN PO MILD-MOD DIARRHEA 04/25/21 15:15 04/26/21 10:24 DC Melatonin (Melatonin) 9 mg QHS PO 04/25/21 21:00 04/26/21 10:24 DC 04/25/21 21:29 Non-Formulary Medication (Menthol/Zinc Oxide (Calmoseptine Ointment)) 3.5 gm BID TP 04/25/21 21:00 04/25/21 14:56 DC Multi-Ingred Cream/Lotion/Oil/ Oint (Hydrocerin) 1 neelima BID TP 04/25/21 21:00 04/26/21 10:24 DC 04/26/21 08:40 Multivitamins/ Calcium (Thera-M Plus) 1 tab DAILY PO 04/26/21 09:00 04/26/21 10:24 DC 04/26/21 08:34 Phenyleph/Shark Oil/Min Oil/Petrol (Preparation H) 1 neelima PRN Q12HR PRN RC RECTAL PAIN 04/25/21 15:00 04/26/21 10:24 DC Linagliptin (Tradjenta) 5 mg DAILY PO 04/26/21 09:00 05/20/21 08:17 Saliva Substitute (Biotene Moisturizing Mouth) 1 spray PRN Q1HR PRN PO DRY MOUTH 04/25/21 15:15 Duloxetine HCl (Cymbalta) 30 mg DAILY PO 04/27/21 09:00 04/27/21 07:48 DC Oxycodone/ Acetaminophen (Percocet 10/325) 1 tab PRN Q6HRS PRN PO MOD-SEV PAIN 04/27/21 10:00 05/20/21 20:37 Duloxetine HCl (Cymbalta) 90 mg DAILY PO 04/28/21 09:00 05/20/21 08:16 Hydrocortisone (Proctosol-Hc) 1 neelima PRN BID PRN RC RECTAL PAIN 04/28/21 21:00 Aripiprazole (Abilify) 2.5 mg DAILY PO 04/29/21 09:00 04/29/21 20:16 DC 04/29/21 09:23 Aripiprazole (Abilify) 5 mg DAILY PO 04/30/21 09:00 05/12/21 12:03 DC 05/12/21 09:07 Acetaminophen (Tylenol) 1,000 mg PRN Q6HRS PRN PO MILD PAIN 1-3 05/02/21 11:00 05/19/21 17:23 Al Hydroxide/Mg Hydroxide (Mylanta Plus Xs) 30 ml PRN AFTMEALHC PRN PO DYSPEPSIA 05/03/21 10:45 05/20/21 09:49 Lidocaine (Lidoderm) 2 patch DAILY TP 05/07/21 16:15 05/20/21 08:19 Miscellaneous (Lidoderm Patch Removal) 1 ea QHS MC 05/07/21 21:00 05/19/21 20:00 Glucose (Insta-Glucose) 15 gm PRN Q15MIN PRN PO LOW BLOOD SUGAR 05/09/21 18:00 Melatonin (Melatonin) 3 mg PRN QHS PRN PO INSOMNIA 05/09/21 21:00 05/10/21 03:08 DC Melatonin (Melatonin) 3 mg HS PO 05/10/21 21:00 05/11/21 20:19 DC 05/11/21 20:06 Insulin Glargine (Lantus Syringe) 40 unit QHS SQ 05/10/21 21:00 05/15/21 13:44 DC 05/12/21 20:15 Melatonin (Melatonin) 6 mg HS PO 05/12/21 21:00 05/20/21 20:24 Docusate Sodium (Colace) 100 mg DAILY PO 05/12/21 09:00 05/20/21 08:17 Aripiprazole (Abilify) 7.5 mg DAILY PO 05/13/21 09:00 05/20/21 08:16 Nystatin (Nystop) 1 neelima BID TP 05/15/21 21:00 05/20/21 20:27 Insulin Glargine (Lantus Syringe) 25 unit QHS SQ 05/15/21 21:00 05/19/21 21:24 Insulin Human Lispro (HumaLOG) 0-5 UNITS TIDWMEALS SQ 05/15/21 17:00 05/20/21 08:26 Dextrose (Dextrose 50%-Water Syringe) 12.5 gm PRN Q15MIN PRN IV SEE COMMENTS 05/15/21 13:45 I have reviewed the current psychotropics carefully including drug interactions. Risk benefit ratio favors no change other than as noted in my dictated progress note. Diagnosis: Problems: (1) Impulse control disorder, unspecified (2) Anxiety disorder, unspecified (3) Major depressive disorder, recurrent, severe with psychotic features (4) Chronic pain ESE LEVI MD May 20, 2021 20:46
[2021-05-20] MEDS: PATCH REMOVAL. MC SCH (21:00)
[2021-05-20] MEDS: INSULIN GLARGINE SYRINGE. SQ SCH (21:06)
--- NOTE | 2021-05-20 22:09 | NUR ---
Nursing Note Pt blowing his nose onto the floor in the cha way, staff told him to refrain from blowing his nose without tissues. He apologized for his "bad manners" to staff. Later patient states he is planning to send the unit [facility] as a token of his appreciation for the care given here. Pt makes small talk as I give insulin. I told him to get some rest and relax, and he stated on my way out the door, "I love you!!" I told him good night and left. Pt was med compliant, also compliant with assessment.
[2021-05-21 06:04] VITALS: BP 143/92
--- NOTE | 2021-05-21 07:00 | PDOC ---
Exam Note: Josef Note: This note is a late entry for 05/19/2021 covers elements not covered in my initial note. Subjective: The patient was reviewed at treatment team meeting individually in the morning on 05/19/2021 with Carmen Gutierrez, Shiloh Dias, and Chen Natarajan (social work supervisor), Kera, activity therapy and Susi MODI, discussed and reviewed the chart. The patient slept 6-1/2 hours previous night. Appetite is 40%. We discussed his progress, discharge and after care plans, transition back to alf later this week. Patient remains somewhat somatic. He was quite social previous evening. He attended 8 groups in the past one week including meditation group and actively participates in this. Review of Systems: Ambulation impaired in wheelchair. He does complain of back pain. No CV, , pulmonary, eye system symptoms on review. Mental Status Exam: The patient is reasonably oriented. Speech coherent. Abstraction fair. Computation impaired. Language function intact. Mood and affect is pleasant, somewhat dysphoric, anxious. No suicidal or homicidal ideation. Laboratory Data: Reviewed. Impression: Major depressive disorder with psychotic features. Anxiety disorder, unspecified. Impulse control disorder unspecified. Plan: No change from initial note. Assessment: Vital Signs/I&O: Vital Signs Date Time Temp Pulse Resp B/P (MAP) Pulse Ox O2 Delivery O2 Flow Rate FiO2 05/21/21 06:04 98.3 83 18 143/92 (109) 99 05/20/21 15:16 Room Air 05/18/21 06:23 2.0 I & O 05/20/21 05/20/21 05/21/21 15:00 23:00 07:00 Intake Total 360 ml 480 ml Balance 360 ml 480 ml Labs: Laboratory Tests Test 05/20/21 07:29 05/20/21 11:38 05/20/21 16:51 05/20/21 20:04 Glucose (Fingerstick) 167 mg/dL (70-99) H 82 mg/dL (70-99) 144 mg/dL (70-99) H 141 mg/dL (70-99) H Current Medications: Meds: Laboratory Tests Test 05/20/21 07:29 05/20/21 11:38 05/20/21 16:51 05/20/21 20:04 Glucose (Fingerstick) 167 mg/dL 82 mg/dL 144 mg/dL 141 mg/dL Current Medications Medications (Trade) Dose Ordered Sig/Nicky Route PRN Reason Start Time Stop Time Status Last Admin Dose Admin Acetaminophen (Tylenol) 650 mg PRN Q6HRS PRN PO MILD PAIN / TEMP > 100.3'F 04/25/21 12:15 04/25/21 14:18 DC Multi-Ingredient Ointment (Analgesic [place]) 1 neelima PRN QID PRN TP MUSCLE PAIN 04/25/21 12:15 05/01/21 16:28 Al Hydroxide/Mg Hydroxide (Mylanta Plus Xs) 15 ml PRN AFTMEALHC PRN PO DYSPEPSIA 04/25/21 12:15 04/26/21 10:24 DC Magnesium Hydroxide (Milk Of Magnesia) 2,400 mg PRN QHS PRN PO 2nd choice CONSTIPATION 04/25/21 12:15 04/26/21 10:24 DC Acetaminophen (Tylenol) 1,000 mg TID PO 04/25/21 14:00 04/26/21 10:24 DC 04/26/21 08:36 Aspirin (Aspirin Chewable) 81 mg DAILY PO 04/26/21 09:00 05/20/21 08:17 Bisacodyl (Dulcolax Tab) 10 mg PRN BID PRN PO 3rd choice CONSTIPATION 04/25/21 13:45 04/26/21 10:24 DC Bisacodyl (Dulcolax Supp) 10 mg PRN DAILY PRN RC 4th choice CONSTIPATION 04/25/21 13:45 04/26/21 10:24 DC Clopidogrel Bisulfate (Plavix) 75 mg DAILY PO 04/26/21 09:00 05/20/21 08:17 Duloxetine HCl (Cymbalta) 60 mg DAILY PO 04/26/21 09:00 04/27/21 20:03 DC 04/27/21 09:21 Guaifenesin (Robitussin) 200 mg PRN Q4HRS PRN PO COUGH 04/25/21 13:45 04/26/21 10:24 DC Hydralazine HCl (Apresoline) 25 mg TID PO 04/25/21 14:00 04/26/21 10:24 DC 04/26/21 08:34 Hydrocortisone (Proctosol-Hc) 1 neelima BID RC 10/15/21 21:00 04/28/21 11:07 DC 04/27/21 09:00 Lidocaine (Lidoderm) 1 patch DAILY TP 04/25/21 18:00 05/07/21 16:12 DC 05/07/21 08:22 Metolazone (Zaroxolyn) 2.5 mg QODAY PO 04/26/21 09:00 04/26/21 10:24 DC 04/26/21 08:34 Nystatin (Nystop) 1 neelima BID TP 04/25/21 21:00 04/26/21 10:24 DC 04/26/21 08:43 Polyethylene Glycol (miraLAX) 17 gm PRN DAILY PRN PO 1st choice CONSTIPATION 04/25/21 13:45 05/04/21 13:02 Potassium Chloride (Klor-Con) 30 meq DAILY PO 04/26/21 09:00 05/20/21 08:16 Sennosides (Senna) 8.6 mg PRN QHS PRN PO constipation 04/25/21 13:45 04/26/21 10:24 DC Simethicone (Gas-X) 80 mg PRN BID PRN PO gas 04/25/21 13:45 04/26/21 10:24 DC Spironolactone (Aldactone) 25 mg DAILY PO 04/26/21 09:00 04/26/21 10:24 DC 04/26/21 08:34 Tramadol HCl (Ultram) 100 mg PRN Q4HRS PRN PO PAIN 04/25/21 13:45 04/27/21 10:01 DC 04/27/21 06:06 Trazodone HCl (Desyrel) 200 mg HS PO 04/25/21 21:00 05/20/21 20:23 Non-Formulary Medication (Arginine/ Glutamine/Calcium Hmb (Stephen Packet)) 1 each BID PO 04/25/21 21:00 04/25/21 15:06 DC Atorvastatin Calcium (Lipitor) 80 mg QHS PO 04/25/21 21:00 05/20/21 20:23 Bumetanide (Bumex) 2 mg DAILY PO 04/26/21 09:00 04/30/21 10:39 DC 04/30/21 08:57 Al Hydroxide/Mg Hydroxide (Mylanta Plus Xs) 30 ml PRN Q12HR PRN PO DYSPEPSIA 04/25/21 14:45 04/26/21 10:24 DC 04/26/21 01:37 Carvedilol (Coreg) 37.5 mg BID PO 04/25/21 21:00 05/20/21 20:27 Cyclobenzaprine HCl (Flexeril) 5 mg PRN BID PRN PO MUSCLE SPASMS 04/25/21 14:45 04/26/21 10:24 DC Insulin Human Lispro (HumaLOG) 8 units TIDBFRMEAL SQ 04/25/21 16:30 05/15/21 13:44 DC 05/09/21 13:03 Insulin Glargine (Lantus Syringe) 48 unit QHS SQ 04/25/21 21:00 05/10/21 16:26 DC 05/07/21 21:12 Loperamide HCl (Imodium) 2 mg PRN Q1HR PRN PO severe DIARRHEA 04/25/21 15:00 04/26/21 10:24 DC Loperamide HCl (Imodium) 2 mg PRN Q6HRS PRN PO MILD-MOD DIARRHEA 04/25/21 15:15 04/26/21 10:24 DC Melatonin (Melatonin) 9 mg QHS PO 04/25/21 21:00 04/26/21 10:24 DC 04/25/21 21:29 Non-Formulary Medication (Menthol/Zinc Oxide (Calmoseptine Ointment)) 3.5 gm BID TP 04/25/21 21:00 04/25/21 14:56 DC Multi-Ingred Cream/Lotion/Oil/ Oint (Hydrocerin) 1 neelima BID TP 04/25/21 21:00 04/26/21 10:24 DC 04/26/21 08:40 Multivitamins/ Calcium (Thera-M Plus) 1 tab DAILY PO 04/26/21 09:00 04/26/21 10:24 DC 04/26/21 08:34 Phenyleph/Shark Oil/Min Oil/Petrol (Preparation H) 1 neelima PRN Q12HR PRN RC RECTAL PAIN 04/25/21 15:00 04/26/21 10:24 DC Linagliptin (Tradjenta) 5 mg DAILY PO 04/26/21 09:00 05/20/21 08:17 Saliva Substitute (Biotene Moisturizing Mouth) 1 spray PRN Q1HR PRN PO DRY MOUTH 04/25/21 15:15 Duloxetine HCl (Cymbalta) 30 mg DAILY PO 04/27/21 09:00 04/27/21 07:48 DC Oxycodone/ Acetaminophen (Percocet 10/325) 1 tab PRN Q6HRS PRN PO MOD-SEV PAIN 04/27/21 10:00 05/20/21 20:37 Duloxetine HCl (Cymbalta) 90 mg DAILY PO 04/28/21 09:00 05/20/21 08:16 Hydrocortisone (Proctosol-Hc) 1 neelima PRN BID PRN RC RECTAL PAIN 04/28/21 21:00 Aripiprazole (Abilify) 2.5 mg DAILY PO 04/29/21 09:00 04/29/21 20:16 DC 04/29/21 09:23 Aripiprazole (Abilify) 5 mg DAILY PO 04/30/21 09:00 05/12/21 12:03 DC 05/12/21 09:07 Acetaminophen (Tylenol) 1,000 mg PRN Q6HRS PRN PO MILD PAIN 1-3 05/02/21 11:00 05/19/21 17:23 Al Hydroxide/Mg Hydroxide (Mylanta Plus Xs) 30 ml PRN AFTMEALHC PRN PO DYSPEPSIA 05/03/21 10:45 05/20/21 09:49 Lidocaine (Lidoderm) 2 patch DAILY TP 05/07/21 16:15 05/20/21 08:19 Miscellaneous (Lidoderm Patch Removal) 1 ea QHS MC 05/07/21 21:00 05/20/21 21:00 Glucose (Insta-Glucose) 15 gm PRN Q15MIN PRN PO LOW BLOOD SUGAR 05/09/21 18:00 Melatonin (Melatonin) 3 mg PRN QHS PRN PO INSOMNIA 05/09/21 21:00 05/10/21 03:08 DC Melatonin (Melatonin) 3 mg HS PO 05/10/21 21:00 05/11/21 20:19 DC 05/11/21 20:06 Insulin Glargine (Lantus Syringe) 40 unit QHS SQ 05/10/21 21:00 05/15/21 13:44 DC 05/12/21 20:15 Melatonin (Melatonin) 6 mg HS PO 05/12/21 21:00 05/20/21 20:24 Docusate Sodium (Colace) 100 mg DAILY PO 05/12/21 09:00 05/20/21 08:17 Aripiprazole (Abilify) 7.5 mg DAILY PO 05/13/21 09:00 05/20/21 08:16 Nystatin (Nystop) 1 neelima BID TP 05/15/21 21:00 05/20/21 20:27 Insulin Glargine (Lantus Syringe) 25 unit QHS SQ 05/15/21 21:00 05/20/21 21:06 Insulin Human Lispro (HumaLOG) 0-5 UNITS TIDWMEALS SQ 05/15/21 17:00 05/20/21 08:26 Dextrose (Dextrose 50%-Water Syringe) 12.5 gm PRN Q15MIN PRN IV SEE COMMENTS 05/15/21 13:45 I have reviewed the current psychotropics carefully including drug interactions. Risk benefit ratio favors no change other than as noted in my dictated progress note. Diagnosis: Problems: (1) Major depressive disorder, recurrent, severe with psychotic features (2) Anxiety disorder, unspecified (3) Impulse control disorder, unspecified (4) Chronic pain ESE LEVI MD May 21, 2021 07:00
--- NOTE | 2021-05-21 07:22 | PDOC ---
Exam Note: Josef Note: This note is a late entry for 05/20/2021 covers elements not covered in my initial note. Subjective: The patient was seen individually in the evening of 05/20/2021 with Kathy MODI, discussed and reviewed the chart. The patient slept 7 hours previous night. He remains somewhat dramatic at times but otherwise appropriate. I met with him at great length in his room. He does have significant swelling of his ankle and foot area with significant fungal infection and nail problems consequent to both feet. We will defer to Dr. Gandhi. He states there is a staff software engineer at the custodial and he is looking forward to getting back there later this week. Per nursing report he ripped the toenail off his right foot. Wound Care team did re-evaluate him and felt there is significant improvement. Review of Systems: Ambulation impaired in wheelchair. He does complain of back pain. No CV, , pulmonary, eye system symptoms on review. Mental Status Exam: The patient is reasonably oriented. Speech coherent. Abstraction fair. Computation impaired. Language function intact. Mood and affect somewhat anxious, dysphoric. No suicidal or homicidal ideation. Laboratory Data: Reviewed. Impression: Major depressive disorder with psychotic features. Anxiety disorder, unspecified. Impulse control disorder unspecified. Plan: No change from initial note. Assessment: Vital Signs/I&O: Vital Signs Date Time Temp Pulse Resp B/P (MAP) Pulse Ox O2 Delivery O2 Flow Rate FiO2 05/21/21 06:04 98.3 83 18 143/92 (109) 99 05/20/21 15:16 Room Air 05/18/21 06:23 2.0 I & O 05/20/21 05/20/21 05/21/21 15:00 23:00 07:00 Intake Total 360 ml 480 ml Balance 360 ml 480 ml Labs: Laboratory Tests Test 05/20/21 07:29 05/20/21 11:38 05/20/21 16:51 05/20/21 20:04 Glucose (Fingerstick) 167 mg/dL (70-99) H 82 mg/dL (70-99) 144 mg/dL (70-99) H 141 mg/dL (70-99) H Test 05/21/21 07:18 Glucose (Fingerstick) 118 mg/dL (70-99) H Current Medications: Meds: Laboratory Tests Test 05/20/21 07:29 05/20/21 11:38 05/20/21 16:51 05/20/21 20:04 Glucose (Fingerstick) 167 mg/dL 82 mg/dL 144 mg/dL 141 mg/dL Test 05/21/21 07:18 Glucose (Fingerstick) 118 mg/dL Current Medications Medications (Trade) Dose Ordered Sig/Nicky Route PRN Reason Start Time Stop Time Status Last Admin Dose Admin Acetaminophen (Tylenol) 650 mg PRN Q6HRS PRN PO MILD PAIN / TEMP > 100.3'F 04/25/21 12:15 04/25/21 14:18 DC Multi-Ingredient Ointment (Analgesic [place]) 1 neelima PRN QID PRN TP MUSCLE PAIN 04/25/21 12:15 05/01/21 16:28 Al Hydroxide/Mg Hydroxide (Mylanta Plus Xs) 15 ml PRN AFTMEALHC PRN PO DYSPEPSIA 04/25/21 12:15 04/26/21 10:24 DC Magnesium Hydroxide (Milk Of Magnesia) 2,400 mg PRN QHS PRN PO 2nd choice CONSTIPATION 04/25/21 12:15 04/26/21 10:24 DC Acetaminophen (Tylenol) 1,000 mg TID PO 04/25/21 14:00 04/26/21 10:24 DC 04/26/21 08:36 Aspirin (Aspirin Chewable) 81 mg DAILY PO 04/26/21 09:00 05/20/21 08:17 Bisacodyl (Dulcolax Tab) 10 mg PRN BID PRN PO 3rd choice CONSTIPATION 04/25/21 13:45 04/26/21 10:24 DC Bisacodyl (Dulcolax Supp) 10 mg PRN DAILY PRN RC 4th choice CONSTIPATION 04/25/21 13:45 04/26/21 10:24 DC Clopidogrel Bisulfate (Plavix) 75 mg DAILY PO 04/26/21 09:00 05/20/21 08:17 Duloxetine HCl (Cymbalta) 60 mg DAILY PO 04/26/21 09:00 04/27/21 20:03 DC 04/27/21 09:21 Guaifenesin (Robitussin) 200 mg PRN Q4HRS PRN PO COUGH 04/25/21 13:45 04/26/21 10:24 DC Hydralazine HCl (Apresoline) 25 mg TID PO 04/25/21 14:00 04/26/21 10:24 DC 04/26/21 08:34 Hydrocortisone (Proctosol-Hc) 1 neelima BID RC 04/25/21 21:00 04/28/21 11:07 DC 04/27/21 09:00 Lidocaine (Lidoderm) 1 patch DAILY TP 04/25/21 18:00 05/07/21 16:12 DC 05/07/21 08:22 Metolazone (Zaroxolyn) 2.5 mg QODAY PO 04/26/21 09:00 04/26/21 10:24 DC 04/26/21 08:34 Nystatin (Nystop) 1 neelima BID TP 04/25/21 21:00 04/26/21 10:24 DC 04/26/21 08:43 Polyethylene Glycol (miraLAX) 17 gm PRN DAILY PRN PO 1st choice CONSTIPATION 04/25/21 13:45 05/04/21 13:02 Potassium Chloride (Klor-Con) 30 meq DAILY PO 04/26/21 09:00 05/20/21 08:16 Sennosides (Senna) 8.6 mg PRN QHS PRN PO constipation 04/25/21 13:45 04/26/21 10:24 DC Simethicone (Gas-X) 80 mg PRN BID PRN PO gas 04/25/21 13:45 04/26/21 10:24 DC Spironolactone (Aldactone) 25 mg DAILY PO 04/26/21 09:00 04/26/21 10:24 DC 04/26/21 08:34 Tramadol HCl (Ultram) 100 mg PRN Q4HRS PRN PO PAIN 04/25/21 13:45 04/27/21 10:01 DC 04/27/21 06:06 Trazodone HCl (Desyrel) 200 mg HS PO 04/25/21 21:00 05/20/21 20:23 Non-Formulary Medication (Arginine/ Glutamine/Calcium Hmb (Stephen Packet)) 1 each BID PO 04/25/21 21:00 04/25/21 15:06 DC Atorvastatin Calcium (Lipitor) 80 mg QHS PO 04/25/21 21:00 05/20/21 20:23 Bumetanide (Bumex) 2 mg DAILY PO 04/26/21 09:00 04/30/21 10:39 DC 04/30/21 08:57 Al Hydroxide/Mg Hydroxide (Mylanta Plus Xs) 30 ml PRN Q12HR PRN PO DYSPEPSIA 04/25/21 14:45 04/26/21 10:24 DC 04/26/21 01:37 Carvedilol (Coreg) 37.5 mg BID PO 04/25/21 21:00 05/20/21 20:27 Cyclobenzaprine HCl (Flexeril) 5 mg PRN BID PRN PO MUSCLE SPASMS 04/25/21 14:45 04/26/21 10:24 DC Insulin Human Lispro (HumaLOG) 8 units TIDBFRMEAL SQ 04/25/21 16:30 05/15/21 13:44 DC 05/09/21 13:03 Insulin Glargine (Lantus Syringe) 48 unit QHS SQ 04/25/21 21:00 05/10/21 16:26 DC 05/07/21 21:12 Loperamide HCl (Imodium) 2 mg PRN Q1HR PRN PO severe DIARRHEA 04/25/21 15:00 04/26/21 10:24 DC Loperamide HCl (Imodium) 2 mg PRN Q6HRS PRN PO MILD-MOD DIARRHEA 04/25/21 15:15 04/26/21 10:24 DC Melatonin (Melatonin) 9 mg QHS PO 04/25/21 21:00 04/26/21 10:24 DC 04/25/21 21:29 Non-Formulary Medication (Menthol/Zinc Oxide (Calmoseptine Ointment)) 3.5 gm BID TP 04/25/21 21:00 04/25/21 14:56 DC Multi-Ingred Cream/Lotion/Oil/ Oint (Hydrocerin) 1 neelima BID TP 04/25/21 21:00 04/26/21 10:24 DC 04/26/21 08:40 Multivitamins/ Calcium (Thera-M Plus) 1 tab DAILY PO 04/26/21 09:00 04/26/21 10:24 DC 04/26/21 08:34 Phenyleph/Shark Oil/Min Oil/Petrol (Preparation H) 1 neelima PRN Q12HR PRN RC RECTAL PAIN 04/25/21 15:00 04/26/21 10:24 DC Linagliptin (Tradjenta) 5 mg DAILY PO 04/26/21 09:00 05/20/21 08:17 Saliva Substitute (Biotene Moisturizing Mouth) 1 spray PRN Q1HR PRN PO DRY MOUTH 04/25/21 15:15 Duloxetine HCl (Cymbalta) 30 mg DAILY PO 04/27/21 09:00 04/27/21 07:48 DC Oxycodone/ Acetaminophen (Percocet 10) 1 tab PRN Q6HRS PRN PO MOD-SEV PAIN 04/27/21 10:00 05/20/21 20:37 Duloxetine HCl (Cymbalta) 90 mg DAILY PO 04/28/21 09:00 05/20/21 08:16 Hydrocortisone (Proctosol-Hc) 1 neelima PRN BID PRN RC RECTAL PAIN 04/28/21 21:00 Aripiprazole (Abilify) 2.5 mg DAILY PO 04/29/21 09:00 04/29/21 20:16 DC 04/29/21 09:23 Aripiprazole (Abilify) 5 mg DAILY PO 04/30/21 09:00 05/12/21 12:03 DC 05/12/21 09:07 Acetaminophen (Tylenol) 1,000 mg PRN Q6HRS PRN PO MILD PAIN 1-3 05/02/21 11:00 05/19/21 17:23 Al Hydroxide/Mg Hydroxide (Mylanta Plus Xs) 30 ml PRN AFTMEALHC PRN PO DYSPEPSIA 05/03/21 10:45 05/20/21 09:49 Lidocaine (Lidoderm) 2 patch DAILY TP 05/07/21 16:15 05/20/21 08:19 Miscellaneous (Lidoderm Patch Removal) 1 ea QHS MC 05/07/21 21:00 05/20/21 21:00 Glucose (Insta-Glucose) 15 gm PRN Q15MIN PRN PO LOW BLOOD SUGAR 05/09/21 18:00 Melatonin (Melatonin) 3 mg PRN QHS PRN PO INSOMNIA 05/09/21 21:00 05/10/21 03:08 DC Melatonin (Melatonin) 3 mg HS PO 05/10/21 21:00 05/11/21 20:19 DC 05/11/21 20:06 Insulin Glargine (Lantus Syringe) 40 unit QHS SQ 05/10/21 21:00 05/15/21 13:44 DC 05/12/21 20:15 Melatonin (Melatonin) 6 mg HS PO 05/12/21 21:00 05/20/21 20:24 Docusate Sodium (Colace) 100 mg DAILY PO 05/12/21 09:00 05/20/21 08:17 Aripiprazole (Abilify) 7.5 mg DAILY PO 05/13/21 09:00 05/20/21 08:16 Nystatin (Nystop) 1 neelima BID TP 05/15/21 21:00 05/20/21 20:27 Insulin Glargine (Lantus Syringe) 25 unit QHS SQ 05/15/21 21:00 05/20/21 21:06 Insulin Human Lispro (HumaLOG) 0-5 UNITS TIDWMEALS SQ 05/15/21 17:00 05/20/21 08:26 Dextrose (Dextrose 50%-Water Syringe) 12.5 gm PRN Q15MIN PRN IV SEE COMMENTS 05/15/21 13:45 I have reviewed the current psychotropics carefully including drug interactions. Risk benefit ratio favors no change other than as noted in my dictated progress note. Diagnosis: Problems: (1) Impulse control disorder, unspecified (2) Anxiety disorder, unspecified (3) Major depressive disorder, recurrent, severe with psychotic features (4) Chronic pain ESE LEVI MD May 21, 2021 07:22
[2021-05-21] MEDS: INSULIN LISPRO 300 UNITS/3 ML VIAL. SQ SCH ×3 (07:36→17:00)
[2021-05-21] MEDS: ARIPiprazole 5 MG TABLET PO SCH (08:40)
[2021-05-21] MEDS: ASPIRIN CHEWABLE 81 MG TABLET. PO SCH (08:40)
[2021-05-21] MEDS: DULoxetine HCL 30 MG CAPSULE.DR PO SCH (08:41)
[2021-05-21] MEDS: CLOPIDOGREL BISULFATE 75 MG TABLET PO SCH (08:41)
[2021-05-21] MEDS: POTASSIUM CHLORIDE 10 MEQ TABLET.ER. PO SCH (08:41)
[2021-05-21] MEDS: LINAGLIPTIN 5 MG TABLET PO SCH (08:41)
[2021-05-21] MEDS: NYSTATIN TOPICAL POWDER 15GM BOTTLE. TP SCH ×2 (08:41→21:03)
[2021-05-21] MEDS: DOCUSATE SODIUM 100 MG CAPSULE PO SCH (08:41)
[2021-05-21] MEDS: CARVEDILOL 12.5 MG TABLET PO SCH ×2 (08:41→20:58)
[2021-05-21] MEDS: LIDOCAINE (700MG/PATCH) PATCH. TP SCH (08:42)
--- NOTE | 2021-05-21 10:12 | NUR ---
Nursing note: Pt in dining room at time of AM med pass and assessment. He is pleasant, med compliant and cooperative. Pt c/o pain in his back and shoulder he rates a 10/10. Scheduled lidocaine patches were placed. He expressed excitement about going home tomorrow. Pt has no further complaints/concerns. He is currently sitting in the cha waiting for group to begin. Will continue to monitor.
[2021-05-21] MEDS: MAG HYDROX/AL HYDROX/SIMETH 30 ML ORAL.SUSP PO PRN (15:31)
[2021-05-21 15:38] VITALS: BP 131/90
[2021-05-21] MEDS: PATCH REMOVAL. MC SCH (20:58)
[2021-05-21] MEDS: traZODone 100 MG TABLET. PO SCH (20:59)
[2021-05-21] MEDS: MELATONIN 3 MG TABLET PO SCH (20:59)
[2021-05-21] MEDS: ATORVASTATIN CALCIUM 20 MG TABLET PO SCH (20:59)
[2021-05-21] MEDS: oxyCODONE/APAP 10/325 1 TAB TABLET PO PRN (20:59)
--- NOTE | 2021-05-21 21:01 | PDOC ---
Exam Note: Josef Note: Please also refer to the separate dictated note~for this date of service dictated separately.~Patient seen individually. Discussed the patient with Nursing staff reviewed the chart.~Reviewed interim history and current functioning. Reviewed vital signs,~Labs/ Radiology~and current medications noted below. Continue current treatment with the changes noted in the dictated addendum note Assessment: Vital Signs/I&O: Vital Signs Date Time Temp Pulse Resp B/P (MAP) Pulse Ox O2 Delivery O2 Flow Rate FiO2 05/21/21 15:38 97.6 90 18 131/90 (104) 100 05/20/21 15:16 Room Air 05/18/21 06:23 2.0 I & O 0 05/20/21 05/20/21 05/21/21 15:00 23:00 07:00 Intake Total 360 ml 480 ml Balance 360 ml 480 ml Labs: Laboratory Tests Test 05/21/21 06:00 05/21/21 07:18 05/21/21 11:34 05/21/21 16:53 SARS-CoV-2 (PCR) Not detected (NOT DETECTD) Glucose (Fingerstick) 118 mg/dL (70-99) H 102 mg/dL (70-99) H 145 mg/dL (70-99) H Test 05/21/21 19:03 Glucose (Fingerstick) 187 mg/dL (70-99) H Current Medications: Meds: Laboratory Tests Test 05/21/21 06:00 05/21/21 07:18 05/21/21 11:34 05/21/21 16:53 Coronavirus (COVID-19)(PCR) Not detected Glucose (Fingerstick) 118 mg/dL 102 mg/dL 145 mg/dL Test 05/21/21 19:03 Glucose (Fingerstick) 187 mg/dL Current Medications Medications (Trade) Dose Ordered Sig/Nicky Route PRN Reason Start Time Stop Time Status Last Admin Dose Admin Acetaminophen (Tylenol) 650 mg PRN Q6HRS PRN PO MILD PAIN / TEMP > 100.3'F 04/25/21 12:15 04/25/21 14:18 DC Multi-Ingredient Ointment (Analgesic [place]) 1 neelima PRN QID PRN TP MUSCLE PAIN 04/25/21 12:15 05/01/21 16:28 Al Hydroxide/Mg Hydroxide (Mylanta Plus Xs) 15 ml PRN AFTMEALHC PRN PO DYSPEPSIA 04/25/21 12:15 04/26/21 10:24 DC Magnesium Hydroxide (Milk Of Magnesia) 2,400 mg PRN QHS PRN PO 2nd choice CONSTIPATION 04/25/21 12:15 04/26/21 10:24 DC Acetaminophen (Tylenol) 1,000 mg TID PO 04/25/21 14:00 04/26/21 10:24 DC 04/26/21 08:36 Aspirin (Aspirin Chewable) 81 mg DAILY PO 04/26/21 09:00 05/21/21 08:40 Bisacodyl (Dulcolax Tab) 10 mg PRN BID PRN PO 3rd choice CONSTIPATION 04/25/21 13:45 04/26/21 10:24 DC Bisacodyl (Dulcolax Supp) 10 mg PRN DAILY PRN RC 4th choice CONSTIPATION 04/25/21 13:45 04/26/21 10:24 DC Clopidogrel Bisulfate (Plavix) 75 mg DAILY PO 04/26/21 09:00 05/21/21 08:41 Duloxetine HCl (Cymbalta) 60 mg DAILY PO 04/26/21 09:00 04/27/21 20:03 DC 04/27/21 09:21 Guaifenesin (Robitussin) 200 mg PRN Q4HRS PRN PO COUGH 04/25/21 13:45 04/26/21 10:24 DC Hydralazine HCl (Apresoline) 25 mg TID PO 04/25/21 14:00 04/26/21 10:24 DC 04/26/21 08:34 Hydrocortisone (Proctosol-Hc) 1 neelima BID RC 04/25/21 21:00 04/28/21 11:07 DC 04/27/21 09:00 Lidocaine (Lidoderm) 1 patch DAILY TP 04/25/21 18:00 05/07/21 16:12 DC 05/07/21 08:22 Metolazone (Zaroxolyn) 2.5 mg QODAY PO 04/26/21 09:00 04/26/21 10:24 DC 04/26/21 08:34 Nystatin (Nystop) 1 neelima BID TP 04/25/21 21:00 04/26/21 10:24 DC 04/26/21 08:43 Polyethylene Glycol (miraLAX) 17 gm PRN DAILY PRN PO 1st choice CONSTIPATION 04/25/21 13:45 05/04/21 13:02 Potassium Chloride (Klor-Con) 30 meq DAILY PO 04/26/21 09:00 05/21/21 08:41 Sennosides (Senna) 8.6 mg PRN QHS PRN PO constipation 04/25/21 13:45 04/26/21 10:24 DC Simethicone (Gas-X) 80 mg PRN BID PRN PO gas 04/25/21 13:45 04/26/21 10:24 DC Spironolactone (Aldactone) 25 mg DAILY PO 04/26/21 09:00 04/26/21 10:24 DC 04/26/21 08:34 Tramadol HCl (Ultram) 100 mg PRN Q4HRS PRN PO PAIN 04/25/21 13:45 04/27/21 10:01 DC 04/27/21 06:06 Trazodone HCl (Desyrel) 200 mg HS PO 04/25/21 21:00 05/20/21 20:23 Non-Formulary Medication (Arginine/ Glutamine/Calcium Hmb (Stephen Packet)) 1 each BID PO 04/25/21 21:00 04/25/21 15:06 DC Atorvastatin Calcium (Lipitor) 80 mg QHS PO 04/25/21 21:00 05/20/21 20:23 Bumetanide (Bumex) 2 mg DAILY PO 04/26/21 09:00 04/30/21 10:39 DC 04/30/21 08:57 Al Hydroxide/Mg Hydroxide (Mylanta Plus Xs) 30 ml PRN Q12HR PRN PO DYSPEPSIA 04/25/21 14:45 04/26/21 10:24 DC 04/26/21 01:37 Carvedilol (Coreg) 37.5 mg BID PO 04/25/21 21:00 05/21/21 08:41 Cyclobenzaprine HCl (Flexeril) 5 mg PRN BID PRN PO MUSCLE SPASMS 04/25/21 14:45 04/26/21 10:24 DC Insulin Human Lispro (HumaLOG) 8 units TIDBFRMEAL SQ 04/25/21 16:30 05/15/21 13:44 DC 05/09/21 13:03 Insulin Glargine (Lantus Syringe) 48 unit QHS SQ 04/25/21 21:00 05/10/21 16:26 DC 05/07/21 21:12 Loperamide HCl (Imodium) 2 mg PRN Q1HR PRN PO severe DIARRHEA 04/25/21 15:00 04/26/21 10:24 DC Loperamide HCl (Imodium) 2 mg PRN Q6HRS PRN PO MILD-MOD DIARRHEA 04/25/21 15:15 04/26/21 10:24 DC Melatonin (Melatonin) 9 mg QHS PO 04/25/21 21:00 04/26/21 10:24 DC 04/25/21 21:29 Non-Formulary Medication (Menthol/Zinc Oxide (Calmoseptine Ointment)) 3.5 gm BID TP 04/25/21 21:00 04/25/21 14:56 DC Multi-Ingred Cream/Lotion/Oil/ Oint (Hydrocerin) 1 neelima BID TP 04/25/21 21:00 04/26/21 10:24 DC 04/26/21 08:40 Multivitamins/ Calcium (Thera-M Plus) 1 tab DAILY PO 04/26/21 09:00 04/26/21 10:24 DC 04/26/21 08:34 Phenyleph/Shark Oil/Min Oil/Petrol (Preparation H) 1 neelima PRN Q12HR PRN RC RECTAL PAIN 04/25/21 15:00 04/26/21 10:24 DC Linagliptin (Tradjenta) 5 mg DAILY PO 04/26/21 09:00 05/21/21 08:41 Saliva Substitute (Biotene Moisturizing Mouth) 1 spray PRN Q1HR PRN PO DRY MOUTH 04/25/21 15:15 Duloxetine HCl (Cymbalta) 30 mg DAILY PO 04/27/21 09:00 04/27/21 07:48 DC Oxycodone/ Acetaminophen (Percocet 10/325) 1 tab PRN Q6HRS PRN PO MOD-SEV PAIN 04/27/21 10:00 05/20/21 20:37 Duloxetine HCl (Cymbalta) 90 mg DAILY PO 04/28/21 09:00 05/21/21 08:41 Hydrocortisone (Proctosol-Hc) 1 neelima PRN BID PRN RC RECTAL PAIN 04/28/21 21:00 Aripiprazole (Abilify) 2.5 mg DAILY PO 04/29/21 09:00 04/29/21 20:16 DC 04/29/21 09:23 Aripiprazole (Abilify) 5 mg DAILY PO 04/30/21 09:00 05/12/21 12:03 DC 05/12/21 09:07 Acetaminophen (Tylenol) 1,000 mg PRN Q6HRS PRN PO MILD PAIN 1-3 05/02/21 11:00 05/19/21 17:23 Al Hydroxide/Mg Hydroxide (Mylanta Plus Xs) 30 ml PRN AFTMEALHC PRN PO DYSPEPSIA 05/03/21 10:45 05/21/21 15:31 Lidocaine (Lidoderm) 2 patch DAILY TP 05/07/21 16:15 05/21/21 08:42 Miscellaneous (Lidoderm Patch Removal) 1 ea QHS MC 05/07/21 21:00 05/20/21 21:00 Glucose (Insta-Glucose) 15 gm PRN Q15MIN PRN PO LOW BLOOD SUGAR 05/09/21 18:00 Melatonin (Melatonin) 3 mg PRN QHS PRN PO INSOMNIA 05/09/21 21:00 05/10/21 03:08 DC Melatonin (Melatonin) 3 mg HS PO 05/10/21 21:00 05/11/21 20:19 DC 05/11/21 20:06 Insulin Glargine (Lantus Syringe) 40 unit QHS SQ 05/10/21 21:00 05/15/21 13:44 DC 05/12/21 20:15 Melatonin (Melatonin) 6 mg HS PO 05/12/21 21:00 05/20/21 20:24 Docusate Sodium (Colace) 100 mg DAILY PO 05/12/21 09:00 05/21/21 08:41 Aripiprazole (Abilify) 7.5 mg DAILY PO 05/13/21 09:00 05/21/21 08:40 Nystatin (Nystop) 1 neelima BID TP 05/15/21 21:00 05/21/21 08:41 Insulin Glargine (Lantus Syringe) 25 unit QHS SQ 05/15/21 21:00 05/20/21 21:06 Insulin Human Lispro (HumaLOG) 0-5 UNITS TIDWMEALS SQ 05/15/21 17:00 05/20/21 08:26 Dextrose (Dextrose 50%-Water Syringe) 12.5 gm PRN Q15MIN PRN IV SEE COMMENTS 05/15/21 13:45 I have reviewed the current psychotropics carefully including drug interactions. Risk benefit ratio favors no change other than as noted in my dictated progress note. Diagnosis: Problems: (1) Impulse control disorder, unspecified (2) Anxiety disorder, unspecified (3) Major depressive disorder, recurrent, severe with psychotic features (4) Chronic pain ESE LEVI MD May 21, 2021 21:01
[2021-05-21] MEDS: INSULIN GLARGINE SYRINGE. SQ SCH (21:02)
--- NOTE | 2021-05-21 22:52 | NUR ---
Patient located in his room for assessments and medications. He is pleasant, interactive, appropriate. He expressed gratitude to the staff here and says he is looking forward to discharging. Patient complains of 8/10 pain in his shoulder/back and requested PRN Percocet with his HS meds. Cooperative with shower and HS care. Denies SI. He appears to be sleeping comfortably at present time. Will continue to monitor.
[2021-05-22] MEDS ORDERED: ARIP5TAB13 PO (00:30)
[2021-05-22] MEDS ORDERED: DOCU-109 PO (00:31)
[2021-05-22] MEDS ORDERED: OXYC1TAB22 PO (00:33)
[2021-05-22] MEDS: oxyCODONE/APAP 10/325 1 TAB TABLET PO PRN (03:08)
[2021-05-22] MEDS: POLYETHYLENE GLYCOL 3350 17 GM PACKET. PO PRN ×2 (03:08→12:31)
[2021-05-22 06:12] VITALS: BP 126/85
--- NOTE | 2021-05-22 07:15 | PDOC ---
Exam Note: Josef Note: This note is a late entry for 05/21/2021 covers elements not covered in my initial note. Subjective: The patient was seen individually in the evening of 05/21/2021 with Susi MODI, discussed and reviewed the chart. The patient slept 6-1/2 hours previous night. Overall he has done reasonably well during the day and his discharge is planned for tomorrow. However as I met with him in the evening, reportedly he had thrown his urinal all over his floor. When I questioned the patient on this, he stated he was wanting to urinate but this pant was very tight and couldnt get the urinal to fit, it splashed over. He was very apologetic about this, still looking forward to a discharge tomorrow. Review of Systems: Ambulation impaired in wheelchair. No CV, , pulmonary, eye system symptoms on review. Mental Status Exam: The patient is reasonably oriented. Speech is coherent. Abstraction fair. Computation somewhat impaired. Language function intact. Mood and affect despite the above is improved. No suicidal or homicidal ideation. Laboratory Data: Reviewed. Impression: Major depressive disorder with psychotic features. Anxiety disorder, unspecified. Impulse control disorder unspecified. Plan: No change from initial note. Assessment: Vital Signs/I&O: Vital Signs Date Time Temp Pulse Resp B/P (MAP) Pulse Ox O2 Delivery O2 Flow Rate FiO2 05/22/21 06:12 96.8 76 20 126/85 (99) 99 05/20/21 15:16 Room Air 05/18/21 06:23 2.0 I & O 05/21/21 05/21/21 05/22/21 15:00 23:00 07:00 Intake Total 840 ml 600 ml Balance 840 ml 600 ml Labs: Laboratory Tests Test 05/21/21 07:18 05/21/21 11:34 05/21/21 16:53 05/21/21 19:03 Glucose (Fingerstick) 118 mg/dL (70-99) H 102 mg/dL (70-99) H 145 mg/dL (70-99) H 187 mg/dL (70-99) H Current Medications: Meds: Laboratory Tests Test 05/21/21 07:18 05/21/21 11:34 05/21/21 16:53 05/21/21 19:03 Glucose (Fingerstick) 118 mg/dL 102 mg/dL 145 mg/dL 187 mg/dL Current Medications Medications (Trade) Dose Ordered Sig/Nicky Route PRN Reason Start Time Stop Time Status Last Admin Dose Admin Acetaminophen (Tylenol) 650 mg PRN Q6HRS PRN PO MILD PAIN / TEMP > 100.3'F 04/25/21 12:15 04/25/21 14:18 DC Multi-Ingredient Ointment (Analgesic [place]) 1 neelima PRN QID PRN TP MUSCLE PAIN 04/25/21 12:15 05/01/21 16:28 Al Hydroxide/Mg Hydroxide (Mylanta Plus Xs) 15 ml PRN AFTMEALHC PRN PO DYSPEPSIA 04/25/21 12:15 04/26/21 10:24 DC Magnesium Hydroxide (Milk Of Magnesia) 2,400 mg PRN QHS PRN PO 2nd choice CONSTIPATION 04/25/21 12:15 04/26/21 10:24 DC Acetaminophen (Tylenol) 1,000 mg TID PO 04/25/21 14:00 04/26/21 10:24 DC 04/26/21 08:36 Aspirin (Aspirin Chewable) 81 mg DAILY PO 04/26/21 09:00 05/21/21 08:40 Bisacodyl (Dulcolax Tab) 10 mg PRN BID PRN PO 3rd choice CONSTIPATION 04/25/21 13:45 04/26/21 10:24 DC Bisacodyl (Dulcolax Supp) 10 mg PRN DAILY PRN RC 4th choice CONSTIPATION 04/25/21 13:45 04/26/21 10:24 DC Clopidogrel Bisulfate (Plavix) 75 mg DAILY PO 04/26/21 09:00 05/21/21 08:41 Duloxetine HCl (Cymbalta) 60 mg DAILY PO 04/26/21 09:00 04/27/21 20:03 DC 04/27/21 09:21 Guaifenesin (Robitussin) 200 mg PRN Q4HRS PRN PO COUGH 04/25/21 13:45 04/26/21 10:24 DC Hydralazine HCl (Apresoline) 25 mg TID PO 04/25/21 14:00 04/26/21 10:24 DC 04/26/21 08:34 Hydrocortisone (Proctosol-Hc) 1 neelima BID RC 04/25/21 21:00 04/28/21 11:07 DC 04/27/21 09:00 Lidocaine (Lidoderm) 1 patch DAILY TP 04/25/21 18:00 05/07/21 16:12 DC 05/07/21 08:22 Metolazone (Zaroxolyn) 2.5 mg QODAY PO 04/26/21 09:00 04/26/21 10:24 DC 04/26/21 08:34 Nystatin (Nystop) 1 neelima BID TP 04/25/21 21:00 04/26/21 10:24 DC 04/26/21 08:43 Polyethylene Glycol (miraLAX) 17 gm PRN DAILY PRN PO 1st choice CONSTIPATION 04/25/21 13:45 05/04/21 13:02 Potassium Chloride (Klor-Con) 30 meq DAILY PO 04/26/21 09:00 05/21/21 08:41 Sennosides (Senna) 8.6 mg PRN QHS PRN PO constipation 04/25/21 13:45 04/26/21 10:24 DC Simethicone (Gas-X) 80 mg PRN BID PRN PO gas 04/25/21 13:45 04/26/21 10:24 DC Spironolactone (Aldactone) 25 mg DAILY PO 04/26/21 09:00 04/26/21 10:24 DC 04/26/21 08:34 Tramadol HCl (Ultram) 100 mg PRN Q4HRS PRN PO PAIN 04/25/21 13:45 04/27/21 10:01 DC 04/27/21 06:06 Trazodone HCl (Desyrel) 200 mg HS PO 04/25/21 21:00 05/21/21 20:59 Non-Formulary Medication (Arginine/ Glutamine/Calcium Hmb (Stephen Packet)) 1 each BID PO 04/25/21 21:00 04/25/21 15:06 DC Atorvastatin Calcium (Lipitor) 80 mg QHS PO 04/25/21 21:00 05/21/21 20:59 Bumetanide (Bumex) 2 mg DAILY PO 04/26/21 09:00 04/30/21 10:39 DC 04/30/21 08:57 Al Hydroxide/Mg Hydroxide (Mylanta Plus Xs) 30 ml PRN Q12HR PRN PO DYSPEPSIA 04/25/21 14:45 04/26/21 10:24 DC 04/26/21 01:37 Carvedilol (Coreg) 37.5 mg BID PO 04/25/21 21:00 05/21/21 20:58 Cyclobenzaprine HCl (Flexeril) 5 mg PRN BID PRN PO MUSCLE SPASMS 04/25/21 14:45 04/26/21 10:24 DC Insulin Human Lispro (HumaLOG) 8 units TIDBFRMEAL SQ 04/25/21 16:30 05/15/21 13:44 DC 05/09/21 13:03 Insulin Glargine (Lantus Syringe) 48 unit QHS SQ 04/25/21 21:00 05/10/21 16:26 DC 05/07/21 21:12 Loperamide HCl (Imodium) 2 mg PRN Q1HR PRN PO severe DIARRHEA 04/25/21 15:00 04/26/21 10:24 DC Loperamide HCl (Imodium) 2 mg PRN Q6HRS PRN PO MILD-MOD DIARRHEA 04/25/21 15:15 04/26/21 10:24 DC Melatonin (Melatonin) 9 mg QHS PO 04/25/21 21:00 04/26/21 10:24 DC 04/25/21 21:29 Non-Formulary Medication (Menthol/Zinc Oxide (Calmoseptine Ointment)) 3.5 gm BID TP 04/25/21 21:00 04/25/21 14:56 DC Multi-Ingred Cream/Lotion/Oil/ Oint (Hydrocerin) 1 neelima BID TP 04/25/21 21:00 04/26/21 10:24 DC 04/26/21 08:40 Multivitamins/ Calcium (Thera-M Plus) 1 tab DAILY PO 04/26/21 09:00 04/26/21 10:24 DC 04/26/21 08:34 Phenyleph/Shark Oil/Min Oil/Petrol (Preparation H) 1 neelima PRN Q12HR PRN RC RECTAL PAIN 04/25/21 15:00 04/26/21 10:24 DC Linagliptin (Tradjenta) 5 mg DAILY PO 04/26/21 09:00 05/21/21 08:41 Saliva Substitute (Biotene Moisturizing Mouth) 1 spray PRN Q1HR PRN PO DRY MOUTH 04/25/21 15:15 Duloxetine HCl (Cymbalta) 30 mg DAILY PO 04/27/21 09:00 04/27/21 07:48 DC Oxycodone/ Acetaminophen (Percocet 10/325) 1 tab PRN Q6HRS PRN PO MOD-SEV PAIN 04/27/21 10:00 05/22/21 03:08 Duloxetine HCl (Cymbalta) 90 mg DAILY PO 04/28/21 09:00 05/21/21 08:41 Hydrocortisone (Proctosol-Hc) 1 neelima PRN BID PRN RC RECTAL PAIN 04/28/21 21:00 Aripiprazole (Abilify) 2.5 mg DAILY PO 04/29/21 09:00 04/29/21 20:16 DC 04/29/21 09:23 Aripiprazole (Abilify) 5 mg DAILY PO 04/30/21 09:00 05/12/21 12:03 DC 05/12/21 09:07 Acetaminophen (Tylenol) 1,000 mg PRN Q6HRS PRN PO MILD PAIN 1-3 05/02/21 11:00 05/19/21 17:23 Al Hydroxide/Mg Hydroxide (Mylanta Plus Xs) 30 ml PRN AFTMEALHC PRN PO DYSPEPSIA 05/03/21 10:45 05/21/21 15:31 Lidocaine (Lidoderm) 2 patch DAILY TP 05/07/21 16:15 05/21/21 08:42 Miscellaneous (Lidoderm Patch Removal) 1 ea QHS MC 05/07/21 21:00 05/21/21 20:58 Glucose (Insta-Glucose) 15 gm PRN Q15MIN PRN PO LOW BLOOD SUGAR 05/09/21 18:00 Melatonin (Melatonin) 3 mg PRN QHS PRN PO INSOMNIA 05/09/21 21:00 05/10/21 03:08 DC Melatonin (Melatonin) 3 mg HS PO 05/10/21 21:00 05/11/21 20:19 DC 05/11/21 20:06 Insulin Glargine (Lantus Syringe) 40 unit QHS SQ 05/10/21 21:00 05/15/21 13:44 DC 05/12/21 20:15 Melatonin (Melatonin) 6 mg HS PO 05/12/21 21:00 05/21/21 20:59 Docusate Sodium (Colace) 100 mg DAILY PO 05/12/21 09:00 05/21/21 08:41 Aripiprazole (Abilify) 7.5 mg DAILY PO 05/13/21 09:00 05/21/21 08:40 Nystatin (Nystop) 1 neelima BID TP 05/15/21 21:00 05/21/21 21:03 Insulin Glargine (Lantus Syringe) 25 unit QHS SQ 05/15/21 21:00 05/21/21 21:02 Insulin Human Lispro (HumaLOG) 0-5 UNITS TIDWMEALS SQ 05/15/21 17:00 05/20/21 08:26 Dextrose (Dextrose 50%-Water Syringe) 12.5 gm PRN Q15MIN PRN IV SEE COMMENTS 05/15/21 13:45 I have reviewed the current psychotropics carefully including drug interactions. Risk benefit ratio favors no change other than as noted in my dictated progress note. Diagnosis: Problems: (1) Impulse control disorder, unspecified (2) Anxiety disorder, unspecified (3) Major depressive disorder, recurrent, severe with psychotic features (4) Chronic pain ESE LEVI MD May 22, 2021 07:15
[2021-05-22] MEDS: INSULIN LISPRO 300 UNITS/3 ML VIAL. SQ SCH ×2 (07:39→12:00)
[2021-05-22 08:26] VITALS: BP 126/85
[2021-05-22] MEDS: LINAGLIPTIN 5 MG TABLET PO SCH (08:26)
[2021-05-22] MEDS: CARVEDILOL 12.5 MG TABLET PO SCH (08:26)
[2021-05-22] MEDS: DULoxetine HCL 30 MG CAPSULE.DR PO SCH (08:26)
[2021-05-22] MEDS: CLOPIDOGREL BISULFATE 75 MG TABLET PO SCH (08:26)
[2021-05-22] MEDS: ASPIRIN CHEWABLE 81 MG TABLET. PO SCH (08:26)
[2021-05-22] MEDS: DOCUSATE SODIUM 100 MG CAPSULE PO SCH (08:27)
[2021-05-22] MEDS: POTASSIUM CHLORIDE 10 MEQ TABLET.ER. PO SCH (08:27)
[2021-05-22] MEDS: ARIPiprazole 5 MG TABLET PO SCH (08:27)
[2021-05-22] MEDS: LIDOCAINE (700MG/PATCH) PATCH. TP SCH (08:28)
[2021-05-22] MEDS: NYSTATIN TOPICAL POWDER 15GM BOTTLE. TP SCH (08:28)
--- NOTE | 2021-05-22 13:01 | NUR ---
IGNACIO received a call from Luanne at pt facility to inform that transportation service will be running late as they are short on drivers. IGNACIO told Luanne that wasn't a problem and that this SW would forward the message onto the nursing staff as well as the pt. IGNACIO then reported to nursing staff that pts transportation would be arriving an hour to an hour and a half late. Nursing staff appreciative of the update. IGNACIO finally let pt know of the expected delay in transport. Pt voiced concern based on passed experience that the transport company might not send a van that would be adequate to fit his wheelchair. Therefore, IGNACIO contacted Luanne back and had to leave a voice message requesting that she confirm with the transport company of sending the correct vehicle to accommodate pts wheelchair. SW awaiting call back from Luanne.
--- NOTE | 2021-05-22 15:36 | NUR ---
Transition Record was faxed to follow-up provider with the following elements: Reason for admission, procedures, tests, principal diagnosis, pending studies, patient instructions, 01/02 contact information for unit, phone number to obtain pending test results, plan for follow-up care, physician follow-up, advanced directive information, and medication list with dose, duration and instructions. This information was included in the following documents: History and physical, lab results, study results, progress notes, social work planning form, DC instruction form, patient visit summary, and medication reconciliation form. Date & time record faxed: 05/22/21 @ 0041 Record faxed to: Liam Marmolejo at [place] @ [phone] Record discussed with/ report given to: Solange @ [phone]
--- NOTE | 2021-05-22 21:11 | PDOC ---
Exam Note: Josef Note: Please also refer to the separate dictated note~for this date of service dictated separately.~Patient seen individually. Discussed the patient with Nursing staff reviewed the chart.~Reviewed interim history and current functioning. Reviewed vital signs,~Labs/ Radiology~and current medications noted below. Continue current treatment with the changes noted in the dictated addendum note Assessment: Vital Signs/I&O: Vital Signs Date Time Temp Pulse Resp B/P (MAP) Pulse Ox O2 Delivery O2 Flow Rate FiO2 05/22/21 08:26 76 126/85 05/22/21 06:12 96.8 20 99 05/20/21 15:16 Room Air 05/18/21 06:23 2.0 I & O 05/21/21 05/21/21 05/22/21 15:00 23:00 07:00 Intake Total 840 ml 600 ml Balance 840 ml 600 ml Labs: Laboratory Tests Test 05/22/21 07:32 05/22/21 12:04 Glucose (Fingerstick) 117 mg/dL (70-99) H 115 mg/dL (70-99) H Current Medications: Meds: Laboratory Tests Test 05/22/21 07:32 05/22/21 12:04 Glucose (Fingerstick) 117 mg/dL 115 mg/dL Current Medications Medications (Trade) Dose Ordered Sig/Nicky Route PRN Reason Start Time Stop Time Status Last Admin Dose Admin Acetaminophen (Tylenol) 650 mg PRN Q6HRS PRN PO MILD PAIN / TEMP > 100.3'F 04/25/21 12:15 04/25/21 14:18 DC Multi-Ingredient Ointment (Analgesic [place]) 1 neelima PRN QID PRN TP MUSCLE PAIN 04/25/21 12:15 05/22/21 15:39 DC 05/01/21 16:28 Al Hydroxide/Mg Hydroxide (Mylanta Plus Xs) 15 ml PRN AFTMEALHC PRN PO DYSPEPSIA 04/25/21 12:15 04/26/21 10:24 DC Magnesium Hydroxide (Milk Of Magnesia) 2,400 mg PRN QHS PRN PO 2nd choice CONSTIPATION 04/25/21 12:15 04/26/21 10:24 DC Acetaminophen (Tylenol) 1,000 mg TID PO 04/25/21 14:00 10/16/21 10:24 DC 04/26/21 08:36 Aspirin (Aspirin Chewable) 81 mg DAILY PO 04/26/21 09:00 05/22/21 15:39 DC 05/22/21 08:26 Bisacodyl (Dulcolax Tab) 10 mg PRN BID PRN PO 3rd choice CONSTIPATION 04/25/21 13:45 04/26/21 10:24 DC Bisacodyl (Dulcolax Supp) 10 mg PRN DAILY PRN RC 4th choice CONSTIPATION 04/25/21 13:45 04/26/21 10:24 DC Clopidogrel Bisulfate (Plavix) 75 mg DAILY PO 04/26/21 09:00 05/22/21 15:39 DC 05/22/21 08:26 Duloxetine HCl (Cymbalta) 60 mg DAILY PO 04/26/21 09:00 04/27/21 20:03 DC 04/27/21 09:21 Guaifenesin (Robitussin) 200 mg PRN Q4HRS PRN PO COUGH 04/25/21 13:45 04/26/21 10:24 DC Hydralazine HCl (Apresoline) 25 mg TID PO 04/25/21 14:00 04/26/21 10:24 DC 04/26/21 08:34 Hydrocortisone (Proctosol-Hc) 1 neelima BID RC 04/25/21 21:00 04/28/21 11:07 DC 04/27/21 09:00 Lidocaine (Lidoderm) 1 patch DAILY TP 04/25/21 18:00 05/07/21 16:12 DC 05/07/21 08:22 Metolazone (Zaroxolyn) 2.5 mg QODAY PO 04/26/21 09:00 04/26/21 10:24 DC 04/26/21 08:34 Nystatin (Nystop) 1 neelima BID TP 04/25/21 21:00 04/26/21 10:24 DC 04/26/21 08:43 Polyethylene Glycol (miraLAX) 17 gm PRN DAILY PRN PO 1st choice CONSTIPATION 04/25/21 13:45 05/22/21 15:39 DC 05/22/21 12:31 Potassium Chloride (Klor-Con) 30 meq DAILY PO 04/26/21 09:00 05/22/21 15:39 DC 05/22/21 08:27 Sennosides (Senna) 8.6 mg PRN QHS PRN PO constipation 04/25/21 13:45 04/26/21 10:24 DC Simethicone (Gas-X) 80 mg PRN BID PRN PO gas 04/25/21 13:45 04/26/21 10:24 DC Spironolactone (Aldactone) 25 mg DAILY PO 04/26/21 09:00 04/26/21 10:24 DC 04/26/21 08:34 Tramadol HCl (Ultram) 100 mg PRN Q4HRS PRN PO PAIN 04/25/21 13:45 04/27/21 10:01 DC 04/27/21 06:06 Trazodone HCl (Desyrel) 200 mg HS PO 04/25/21 21:00 05/22/21 15:39 DC 05/21/21 20:59 Non-Formulary Medication (Arginine/ Glutamine/Calcium Hmb (Stephen Packet)) 1 each BID PO 04/25/21 21:00 04/25/21 15:06 DC Atorvastatin Calcium (Lipitor) 80 mg QHS PO 04/25/21 21:00 05/22/21 15:39 DC 05/21/21 20:59 Bumetanide (Bumex) 2 mg DAILY PO 04/26/21 09:00 04/30/21 10:39 DC 04/30/21 08:57 Al Hydroxide/Mg Hydroxide (Mylanta Plus Xs) 30 ml PRN Q12HR PRN PO DYSPEPSIA 04/25/21 14:45 04/26/21 10:24 DC 04/26/21 01:37 Carvedilol (Coreg) 37.5 mg BID PO 04/25/21 21:00 05/22/21 15:39 DC 05/22/21 08:26 Cyclobenzaprine HCl (Flexeril) 5 mg PRN BID PRN PO MUSCLE SPASMS 04/25/21 14:45 04/26/21 10:24 DC Insulin Human Lispro (HumaLOG) 8 units TIDBFRMEAL SQ 04/25/21 16:30 05/15/21 13:44 DC 05/09/21 13:03 Insulin Glargine (Lantus Syringe) 48 unit QHS SQ 04/25/21 21:00 05/10/21 16:26 DC 05/07/21 21:12 Loperamide HCl (Imodium) 2 mg PRN Q1HR PRN PO severe DIARRHEA 04/25/21 15:00 04/26/21 10:24 DC Loperamide HCl (Imodium) 2 mg PRN Q6HRS PRN PO MILD-MOD DIARRHEA 04/25/21 15:15 04/26/21 10:24 DC Melatonin (Melatonin) 9 mg QHS PO 04/25/21 21:00 04/26/21 10:24 DC 04/25/21 21:29 Non-Formulary Medication (Menthol/Zinc Oxide (Calmoseptine Ointment)) 3.5 gm BID TP 04/25/21 21:00 04/25/21 14:56 DC Multi-Ingred Cream/Lotion/Oil/ Oint (Hydrocerin) 1 neelima BID TP 04/25/21 21:00 04/26/21 10:24 DC 04/26/21 08:40 Multivitamins/ Calcium (Thera-M Plus) 1 tab DAILY PO 04/26/21 09:00 04/26/21 10:24 DC 04/26/21 08:34 Phenyleph/Shark Oil/Min Oil/Petrol (Preparation H) 1 neelima PRN Q12HR PRN RC RECTAL PAIN 04/25/21 15:00 04/26/21 10:24 DC Linagliptin (Tradjenta) 5 mg DAILY PO 04/26/21 09:00 05/22/21 15:39 DC 05/22/21 08:26 Saliva Substitute (Biotene Moisturizing Mouth) 1 spray PRN Q1HR PRN PO DRY MOUTH 04/25/21 15:15 05/22/21 15:39 DC Duloxetine HCl (Cymbalta) 30 mg DAILY PO 04/27/21 09:00 04/27/21 07:48 DC Oxycodone/ Acetaminophen (Percocet 10) 1 tab PRN Q6HRS PRN PO MOD-SEV PAIN 04/27/21 10:00 05/22/21 15:39 DC 05/22/21 03:08 Duloxetine HCl (Cymbalta) 90 mg DAILY PO 04/28/21 09:00 05/22/21 15:39 DC 05/22/21 08:26 Hydrocortisone (Proctosol-Hc) 1 neelima PRN BID PRN RC RECTAL PAIN 04/28/21 21:00 05/22/21 15:39 DC Aripiprazole (Abilify) 2.5 mg DAILY PO 04/29/21 09:00 04/29/21 20:16 DC 04/29/21 09:23 Aripiprazole (Abilify) 5 mg DAILY PO 04/30/21 09:00 05/12/21 12:03 DC 05/12/21 09:07 Acetaminophen (Tylenol) 1,000 mg PRN Q6HRS PRN PO MILD PAIN 1-3 05/02/21 11:00 05/22/21 15:39 DC 05/19/21 17:23 Al Hydroxide/Mg Hydroxide (Mylanta Plus Xs) 30 ml PRN AFTMEALHC PRN PO DYSPEPSIA 05/03/21 10:45 05/22/21 15:39 DC 05/21/21 15:31 Lidocaine (Lidoderm) 2 patch DAILY TP 05/07/21 16:15 05/22/21 15:39 DC 05/22/21 08:28 Miscellaneous (Lidoderm Patch Removal) 1 ea QHS MC 05/07/21 21:00 05/22/21 15:39 DC 05/21/21 20:58 Glucose (Insta-Glucose) 15 gm PRN Q15MIN PRN PO LOW BLOOD SUGAR 05/09/21 18:00 05/22/21 15:39 DC Melatonin (Melatonin) 3 mg PRN QHS PRN PO INSOMNIA 05/09/21 21:00 05/10/21 03:08 DC Melatonin (Melatonin) 3 mg HS PO 05/10/21 21:00 05/11/21 20:19 DC 05/11/21 20:06 Insulin Glargine (Lantus Syringe) 40 unit QHS SQ 05/10/21 21:00 05/15/21 13:44 DC 05/12/21 20:15 Melatonin (Melatonin) 6 mg HS PO 05/12/21 21:00 05/22/21 15:39 DC 05/21/21 20:59 Docusate Sodium (Colace) 100 mg DAILY PO 05/12/21 09:00 05/22/21 15:39 DC 05/22/21 08:27 Aripiprazole (Abilify) 7.5 mg DAILY PO 05/13/21 09:00 05/22/21 15:39 DC 05/22/21 08:27 Nystatin (Nystop) 1 neelima BID TP 05/15/21 21:00 05/22/21 15:39 DC 05/22/21 08:28 Insulin Glargine (Lantus Syringe) 25 unit QHS SQ 05/15/21 21:00 05/22/21 15:39 DC 05/21/21 21:02 Insulin Human Lispro (HumaLOG) 0-5 UNITS TIDWMEALS SQ 05/15/21 17:00 05/22/21 15:39 DC 05/20/21 08:26 Dextrose (Dextrose 50%-Water Syringe) 12.5 gm PRN Q15MIN PRN IV SEE COMMENTS 05/15/21 13:45 05/22/21 15:39 DC I have reviewed the current psychotropics carefully including drug interactions. Risk benefit ratio favors no change other than as noted in my dictated progress note. Diagnosis: Problems: (1) Impulse control disorder, unspecified (2) Anxiety disorder, unspecified (3) Major depressive disorder, recurrent, severe with psychotic features ESE LEVI MD May 22, 2021 21:11
--- NOTE | 2021-05-24 19:11 | DS ---
DATE OF DISCHARGE: 05/22/2021 DISCHARGE SUMMARY/PSYCHIATRIC PROGRESS NOTE This is a late entry, date of service 05/22, covers elements not covered in my initial note, 05/22. REASON FOR ADMISSION: Please refer to the admission history for details. Briefly, the patient is a 66-year-old male referred to us from [facility] on account of worsening symptoms of depression, worsening anxiety, marked mood lability. At times, the patient was noted to have grandiose language and thoughts. He also appeared depressed, was voicing thoughts of "giving up." He had expressed suicidal ideation, was repeatedly hitting himself in the head with his hand, easily frustrated. Some of this was consequent to his physical disabilities, marked obesity, needing cares with most activities. Some of it worsened by his personality disorder and a significant proportion consequent to his major depressive disorder. The patient had failed outpatient psychiatric intervention resulting in this referral. SIGNIFICANT FINDINGS AND CLINICAL COURSE: Following admission, the patient was seen daily individually by myself from a psychiatric standpoint, medical followup per Dr. Gandhi/Dr. Hendrickson. The patient had multiple medical problems including status post CVA, diabetes mellitus, morbid obesity, osteoarthritis, CHF, chronic kidney disease, hypertension, obstructive sleep apnea, dysphagia. Even with these, there were things he could do for himself, which he frequently would not do and per nursing staff was weight for them. He admitted to being depressed, hopeless, helpless, worthless. Adjustments were made in his psychotropics and he seemed to respond to a combination of Cymbalta 90 mg a day, which was augmented with Abilify 7.5 mg a day, melatonin 6 mg at bedtime used for his insomnia, trazodone 200 mg at bedtime for his insomnia. Gradually mood appeared to improve. He denies suicidal ideation, but his physical inabilities consequent to medical factors persisted, but he was able to handle these better. Prior to discharge on 05/22, review of systems, ambulation impaired, wheelchair/Broda chair. No CV, , pulmonary, eye system symptoms on review does complain of chronic pain, which was a major complicating factor during this hospitalization as well, impaired ambulation. MENTAL STATUS EXAMINATION: The patient is reasonably oriented. Speech is coherent. Abstraction fair. Computation impaired. Language function intact. Attention span short. Mood and affect despite the above was improved and no suicidal ideation at discharge. CONDITION ON DISCHARGE: Improved. FINAL DIAGNOSES: Major depressive disorder, recurrent, in partial remission; anxiety disorder, unspecified; impulse control disorder. Rest diagnoses as above and personality disorder, unspecified. DISCHARGE MEDICATIONS: Please refer to the MRAD. DISCHARGE INSTRUCTIONS: Outpatient psychiatric and medical followup at the half-way. Time for discharge day management greater than 30 minutes. SEB/MILENA/CLAUDIA DR: Reid TID: [id number]
== END 2021-05-22 15:15 | DRG 885 ==
LOC: GEROPSY 11:49
PROVIDERS: ADMIT Psychiatry & Neurology Psychiatry; ATTEND Psychiatry & Neurology Psychiatry
DX: F33.3 Major depressive disorder, recurrent, severe with psychotic symptoms (principal); N18.30 Chronic kidney disease, stage 3 unspecified; I13.0 Hypertensive heart and chronic kidney disease with heart failure and stage 1 through stage 4 chronic kidney disease, or unspecified chronic kidney disease; R45.851 Suicidal ideations; Z68.42 Body mass index [BMI] 45.0-49.9, adult; E11.22 Type 2 diabetes mellitus with diabetic chronic kidney disease; E11.621 Type 2 diabetes mellitus with foot ulcer; E66.01 Morbid (severe) obesity due to excess calories; F02.80 Dementia in other diseases classified elsewhere, unspecified severity, without behavioral disturbance, psychotic disturbance, mood disturbance, and anxiety; F41.0 Panic disorder [episodic paroxysmal anxiety]; F60.9 Personality disorder, unspecified; F63.9 Impulse disorder, unspecified; G30.9 Alzheimer's disease, unspecified; G47.00 Insomnia, unspecified; G89.29 Other chronic pain; I50.9 Heart failure, unspecified; L89.619 Pressure ulcer of right heel, unspecified stage; Z20.822 Contact with and (suspected) exposure to COVID-19; L97.509 Non-pressure chronic ulcer of other part of unspecified foot with unspecified severity; G47.33 Obstructive sleep apnea (adult) (pediatric); M17.0 Bilateral primary osteoarthritis of knee; Z79.899 Other long term (current) drug therapy; Z86.711 Personal history of pulmonary embolism; Z86.73 Personal history of transient ischemic attack (TIA), and cerebral infarction without residual deficits; Z95.1 Presence of aortocoronary bypass graft
CPT/HCPCS: 36415; 73630; 80048; 80053; 80061; 81001; 82306; 82607; 82947; 83036; 83540; 83550; 83735; 84436; 84443; 84480; 85025; 85027; 85379; 85651; 86140; 86592; 93005; J1815; U0003; 97530

== ENCOUNTER 2021-06-19 13:36 | Inpatient (IN) | payer MEDICARE, BC ==
[~2021-06-19] VITALS: Ht 182.9 cm; Wt 141.2 kg
[~2021-06-19 13:36] MED LIST: ACET500T33 PO; ARGI1POW4 PO; ARIP5TAB13 PO; ASPI-630 PO; BISA10SU4 RC; BISA5TAB4 PO; BUME2TAB3 PO; CALC1TAB21 PO; CARV25TA2 PO; CLOP75TA PO; CYCL5TAB PO; DOCU-109 PO; DULO60CA7 PO; GUAI100L12 PO; HYDR-2868 PO; HYDR30CR61 TP; INSU100C4 SQ; INSU100I13 SQ; LIDO700A21 TP; LIPITOR80 MG PO; LOPE2TAB27 PO; MELA10TA7 PO; MENT3.5O TP; METO2.5T PO; MINE50OI TP; MULT-121 PO; NYST15PO9 TP; OXYC1TAB22 PO; PHEN26CR2 RC; POLY17PO5 PO; POTA20TA4 PO; SENN-182 PO; SIME80TA14 PO; SITA100T PO; SPIR25TA5 PO; TRAM50TA PO; TRAZ-125 PO; [UNRECOGNIZED DRUG - OTHER] PO
[2021-06-19] MEDS ORDERED: MULT-121 PO (14:21)
[2021-06-19] MEDS ORDERED: METHYL SALICYLATE/MENTHOL TOPICAL OINTMENT 57GM TUBE. TP PRN (17:00)
[2021-06-19 17:35] VITALS: BP 120/90
[2021-06-19 18:19] LABS: BACTERIA,URINE 0 /HPF (0-FEW); BILIRUBIN,URINE NEG (NEG); CLARITY,URINE CLEAR; COLOR,URINE YELLOW; GLUCOSE,URINE NEG (NEG); NITRITE,URINE NEG (NEG); RBC,URINE 0 /HPF (0-2); UROBILINOGEN,URINE 0.2 mg/dL (0.2 mg/dL); WBC,URINE OCC /HPF (0-4)
[2021-06-19 20:37] LABS: BASO % 0 % (0-3); EOS # 0.1 x10^3/uL (0.0-0.7); EOS % 2 % (0-3); LYMPH # 0.4 x10^3/uL (1.0-4.8); LYMPH % 7 % (24-48); MEAN CORPUSCULAR HEMOGLOBIN 31 pg (25-35); MEAN CORPUSCULAR HGB CONC 33 g/dL (31-37); MEAN CORPUSCULAR VOLUME 95 fL (79-100); MONO # 0.6 x10^3/uL (0.0-1.1); MONO % 11 % (0-9); NEUT # 4.3 x10^3uL (1.8-7.7); NEUT % 80 % (31-73); PLATELET COUNT 241 x10^3/uL (140-400); RED BLOOD COUNT 4.22 x10^6/uL (4.30-5.70); RED CELL DISTRIBUTION WIDTH 17.2 % (11.5-14.5); WHITE BLOOD COUNT 5.4 x10^3/uL (4.0-11.0)
[2021-06-19 20:45] LABS: ALBUMIN 2.9 g/dL (3.4-5.0); ALBUMIN/GLOBULIN RATIO 0.7 (1.0-1.7); CALCIUM 8.4 mg/dL (8.5-10.1); CREATININE 1.2 mg/dL (0.7-1.3); GFR 60.4; POTASSIUM 3.9 mmol/L (3.5-5.1); TOTAL BILIRUBIN 0.7 mg/dL (0.2-1.0); TOTAL PROTEIN 6.8 g/dL (6.4-8.2)
[2021-06-19] MEDS: INSULIN GLARGINE SYRINGE. SQ SCH (21:00)
[2021-06-19] MEDS: traZODone 100 MG TABLET. PO SCH (21:15)
[2021-06-19] MEDS: ATORVASTATIN CALCIUM 20 MG TABLET PO SCH (21:15)
[2021-06-19] MEDS: CARVEDILOL 12.5 MG TABLET PO SCH (21:21)
--- NOTE | 2021-06-19 21:23 | PDOC ---
Exam Note: Josef Note: Please also refer to the separate dictated note~for this date of service dictated separately.~Patient seen individually. Discussed the patient with Nursing staff reviewed the chart.~Reviewed interim history and current functioning. Reviewed vital signs,~Labs/ Radiology~and current medications noted below. Continue current treatment with the changes noted in the dictated addendum note Assessment: Vital Signs/I&O: Vital Signs Date Time Temp Pulse Resp B/P (MAP) Pulse Ox O2 Delivery O2 Flow Rate FiO2 06/19/21 17:35 98.2 90 20 120/90 (100) 98 Nasal Cannula 2.0 Labs: Laboratory Tests Test 06/19/21 17:00 06/19/21 17:12 06/19/21 19:20 06/19/21 20:18 Urine Collection Type Clean catch Urine Color Yellow Urine Clarity Clear Urine pH 5.5 Urine Specific [place] 1.015 Urine Protein Neg (NEG-TRACE) Urine Glucose (UA) Neg mg/dL (NEG) Urine Ketones (Stick) Neg mg/dL (NEG) Urine Blood Neg (NEG) Urine Nitrite Neg (NEG) Urine Bilirubin Neg (NEG) Urine Urobilinogen Dipstick 0.2 mg/dL (0.2 mg/dL) Urine Leukocyte Esterase Neg (NEG) Urine RBC 0 /HPF (0-2) Urine WBC Occ /HPF (0-4) Urine Bacteria 0 /HPF (0-FEW) Glucose (Fingerstick) 101 mg/dL (70-99) H 167 mg/dL (70-99) H White Blood Count 5.4 x10^3/uL (4.0-11.0) Red Blood Count 4.22 x10^6/uL (4.30-5.70) L Hemoglobin 13.0 g/dL (13.0-17.5) Hematocrit 40.0 % (39.0-53.0) Mean Corpuscular Volume 95 fL (79-100) Mean Corpuscular Hemoglobin 31 pg (25-35) Mean Corpuscular Hemoglobin Concent 33 g/dL (31-37) Red Cell Distribution Width 17.2 % (11.5-14.5) H Platelet Count 241 x10^3/uL (140-400) Neutrophils (%) (Auto) 80 % (31-73) H Lymphocytes (%) (Auto) 7 % (24-48) L Monocytes (%) (Auto) 11 % (0-9) H Eosinophils (%) (Auto) 2 % (0-3) Basophils (%) (Auto) 0 % (0-3) Neutrophils # (Auto) 4.3 x10^3uL (1.8-7.7) Lymphocytes # (Auto) 0.4 x10^3/uL (1.0-4.8) L Monocytes # (Auto) 0.6 x10^3/uL (0.0-1.1) Eosinophils # (Auto) 0.1 x10^3/uL (0.0-0.7) Basophils # (Auto) 0.0 x10^3/uL (0.0-0.2) D-Dimer (Lucina) 0.61 mg/L (0.00-0.50) H Sodium Level 137 mmol/L (136-145) Potassium Level 3.9 mmol/L (3.5-5.1) Chloride Level 101 mmol/L (98-107) Carbon Dioxide Level 26 mmol/L (21-32) Anion Gap 10 (6-14) Blood Urea Nitrogen 16 mg/dL (8-26) Creatinine 1.2 mg/dL (0.7-1.3) Estimated GFR (Cockcroft-Gault) 60.4 BUN/Creatinine Ratio 13 (6-20) Glucose Level 162 mg/dL (70-99) H Calcium Level 8.4 mg/dL (8.5-10.1) L Magnesium Level 2.0 mg/dL (1.8-2.4) Total Bilirubin 0.7 mg/dL (0.2-1.0) Aspartate Amino Transferase (AST) 27 U/L (15-37) Alanine Aminotransferase (ALT) 35 U/L (16-63) Alkaline Phosphatase 92 U/L (46-116) Total Protein 6.8 g/dL (6.4-8.2) Albumin 2.9 g/dL (3.4-5.0) L Albumin/Globulin Ratio 0.7 (1.0-1.7) L Current Medications: I have reviewed the current psychotropics carefully including drug interactions. Risk benefit ratio favors no change other than as noted in my dictated progress note. Diagnosis: Problems: (1) Impulse control disorder, unspecified (2) Anxiety disorder, unspecified (3) Major depressive disorder, recurrent, severe with psychotic features (4) Personality disorder, unspecified ESE LEVI MD Jun 19, 2021 21:23
[2021-06-19] MEDS: oxyCODONE/APAP 10/325 1 TAB TABLET PO PRN (21:37)
[2021-06-20] MEDS: MAG HYDROX/AL HYDROX/SIMETH 30 ML ORAL.SUSP PO PRN (04:51)
[2021-06-20 06:16] VITALS: BP 146/85
[2021-06-20] MEDS: INSULIN LISPRO 300 UNITS/3 ML VIAL. SQ SCH ×3 (07:30→17:56)
[2021-06-20] MEDS ORDERED: DULoxetine HCL 30 MG CAPSULE.DR PO SCH (09:00)
[2021-06-20] MEDS: CLOPIDOGREL BISULFATE 75 MG TABLET PO SCH (09:53)
[2021-06-20] MEDS: ARIPiprazole 5 MG TABLET PO SCH (09:53)
[2021-06-20] MEDS: CARVEDILOL 12.5 MG TABLET PO SCH ×2 (09:54→20:20)
[2021-06-20] MEDS: LINAGLIPTIN 5 MG TABLET PO SCH (09:54)
[2021-06-20] MEDS: MULTIVITAMIN with MINERAL TABLET. PO SCH (09:54)
[2021-06-20] MEDS: ASPIRIN CHEWABLE 81 MG TABLET. PO SCH (09:54)
[2021-06-20] MEDS: POTASSIUM CHLORIDE 10 MEQ TABLET.ER. PO SCH (09:54)
[2021-06-20 15:21] VITALS: BP 116/77
[2021-06-20] MEDS: traZODone 100 MG TABLET. PO SCH (20:19)
[2021-06-20] MEDS: ATORVASTATIN CALCIUM 20 MG TABLET PO SCH (20:20)
[2021-06-20] MEDS: INSULIN GLARGINE SYRINGE. SQ SCH (20:20)
--- NOTE | 2021-06-20 20:27 | PDOC ---
Exam Note: Josef Note: Please also refer to the separate dictated note~for this date of service dictated separately.~Patient seen individually. Discussed the patient with Nursing staff reviewed the chart.~Reviewed interim history and current functioning. Reviewed vital signs,~Labs/ Radiology~and current medications noted below. Continue current treatment with the changes noted in the dictated addendum note Assessment: Vital Signs/I&O: Vital Signs Date Time Temp Pulse Resp B/P (MAP) Pulse Ox O2 Delivery O2 Flow Rate FiO2 06/20/21 20:20 94 116/77 06/20/21 15:21 97.1 16 97 06/20/21 06:16 2.0 06/19/21 17:35 Nasal Cannula I & O 06/19/21 06/19/21 06/20/21 15:00 23:00 07:00 Intake Total 480 ml Balance 480 ml Labs: Laboratory Tests Test 06/20/21 07:15 06/20/21 11:27 06/20/21 16:21 06/20/21 19:34 Glucose (Fingerstick) 114 mg/dL (70-99) H 162 mg/dL (70-99) H 230 mg/dL (70-99) H 246 mg/dL (70-99) H Current Medications: Meds: Laboratory Tests Test 06/20/21 07:15 06/20/21 11:27 06/20/21 16:21 06/20/21 19:34 Glucose (Fingerstick) 114 mg/dL 162 mg/dL 230 mg/dL 246 mg/dL Current Medications Medications (Trade) Dose Ordered Sig/Nicky Route PRN Reason Start Time Stop Time Status Last Admin Dose Admin Acetaminophen (Tylenol) 650 mg PRN Q6HRS PRN PO MILD PAIN / TEMP > 100.3'F 06/19/21 17:00 Multi-Ingredient Ointment (Analgesic [place]) 1 neelima PRN QID PRN TP MUSCLE PAIN 06/19/21 17:00 Al Hydroxide/Mg Hydroxide (Mylanta Plus Xs) 15 ml PRN AFTMEALHC PRN PO DYSPEPSIA 06/19/21 17:00 06/20/21 04:51 Magnesium Hydroxide (Milk Of Magnesia) 2,400 mg PRN QHS PRN PO CONSTIPATION 06/19/21 17:00 Aripiprazole (Abilify) 7.5 mg DAILY PO 06/20/21 09:00 06/20/21 09:53 Aspirin (Aspirin Chewable) 81 mg DAILY PO 06/20/21 09:00 06/20/21 09:54 Clopidogrel Bisulfate (Plavix) 75 mg DAILY PO 06/20/21 09:00 06/20/21 09:53 Duloxetine HCl (Cymbalta) 90 mg DAILY PO 06/20/21 09:00 06/20/21 18:46 DC 06/20/21 09:53 Oxycodone/ Acetaminophen (Percocet 10/325) 1 tab PRN Q6HRS PRN PO PAIN 06/19/21 17:00 06/19/21 21:37 Potassium Chloride (Klor-Con) 30 meq DAILY PO 06/20/21 09:00 06/20/21 09:54 Trazodone HCl (Desyrel) 150 mg HS PO 06/19/21 21:00 06/20/21 20:19 Atorvastatin Calcium (Lipitor) 80 mg QHS PO 06/19/21 21:00 06/20/21 20:20 Carvedilol (Coreg) 37.5 mg BID PO 06/19/21 21:00 06/20/21 20:20 Insulin Human Lispro (HumaLOG) 12 units TIDBFRMEAL SQ 06/20/21 07:30 06/20/21 17:56 Insulin Glargine (Lantus Syringe) 48 unit QHS SQ 06/19/21 21:00 Multivitamins/ Calcium (Thera-M Plus) 1 tab DAILY PO 06/20/21 09:00 06/20/21 09:54 Linagliptin (Tradjenta) 5 mg DAILY PO 06/20/21 09:00 06/20/21 09:54 Olanzapine (ZyPREXA ZYDIS) 2.5 mg PRN Q2HR PRN PO PSYCHOSIS 06/20/21 03:15 06/20/21 03:14 Duloxetine HCl (Cymbalta) 60 mg DAILY PO 06/21/21 09:00 Bupropion HCl (Wellbutrin Xl) 150 mg DAILY PO 06/21/21 09:00 06/25/21 21:00 Bupropion HCl (Wellbutrin Xl) 300 mg DAILY PO 06/26/21 09:00 Current Medications Medications (Trade) Dose Ordered Sig/Nicky Route PRN Reason Start Time Stop Time Status Last Admin Dose Admin Aripiprazole (Abilify) 7.5 mg DAILY PO 06/20/21 09:00 06/20/21 09:53 Aspirin (Aspirin Chewable) 81 mg DAILY PO 06/20/21 09:00 06/20/21 09:54 Clopidogrel Bisulfate (Plavix) 75 mg DAILY PO 06/20/21 09:00 06/20/21 09:53 Duloxetine HCl (Cymbalta) 90 mg DAILY PO 06/20/21 09:00 06/20/21 18:46 DC 06/20/21 09:53 Potassium Chloride (Klor-Con) 30 meq DAILY PO 06/20/21 09:00 06/20/21 09:54 Trazodone HCl (Desyrel) 150 mg HS PO 06/19/21 21:00 06/20/21 20:19 Atorvastatin Calcium (Lipitor) 80 mg QHS PO 06/19/21 21:00 06/20/21 20:20 Carvedilol (Coreg) 37.5 mg BID PO 06/19/21 21:00 06/20/21 20:20 Insulin Human Lispro (HumaLOG) 12 units TIDBFRMEAL SQ 06/20/21 07:30 06/20/21 17:56 Multivitamins/ Calcium (Thera-M Plus) 1 tab DAILY PO 06/20/21 09:00 06/20/21 09:54 Linagliptin (Tradjenta) 5 mg DAILY PO 06/20/21 09:00 06/20/21 09:54 Olanzapine (ZyPREXA ZYDIS) 2.5 mg PRN Q2HR PRN PO PSYCHOSIS 06/20/21 03:15 06/20/21 03:14 I have reviewed the current psychotropics carefully including drug interactions. Risk benefit ratio favors no change other than as noted in my dictated progress note. Diagnosis: Problems: (1) Major depressive disorder, recurrent, severe with psychotic features (2) Impulse control disorder, unspecified (3) Personality disorder, unspecified (4) Anxiety disorder, unspecified ESE LEVI MD Jun 20, 2021 20:27
--- NOTE | 2021-06-20 22:03 | HP ---
DATE OF SERVICE: 06/20/2021 ADMIT DATE: 06/19/2021 PSYCHIATRIC ADMISSION HISTORY/EVALUATION This is a late entry, date of service, 06/19/2021 covers the elements not covered in my initial note, 06/19/2021. I met with the patient in the evening of 06/19/2021 shortly after he arrived on the unit. IDENTIFYING DATA: The patient is a 66-year-old male referred back to us from [facility] by his primary care physician on account of worsening symptoms of depression and anxiety, marked impulsivity, refusing to eat and deliberately dropping his blood sugars very significantly. He has been putting himself on the floor, verbally aggressive toward staff, depressed, anxious. He has voiced suicidal ideation, has been sending text messages to his son that he had a plan to end his life. The patient had failed outpatient psychiatric interventions and a prior inpatient hospitalization with us in the past couple of months. He has multiple cuts and bruises on his lower extremity from his attempts to hurt himself. He is admitted for inpatient psychiatric stabilization. CHIEF COMPLAINT: "Yes, I am depressed." HISTORY OF PRESENT ILLNESS: Reportedly, the patient has a history of personality disorder and major depressive disorder. He states he is physically very incapacitated, feels overwhelmed with his general medical condition and has felt helpless, hopeless, worthless, with suicidal ideation as noted above. He has been quite paranoid as well. He has been manipulating his oral intake and worsening his blood sugars, insulin has to be monitored very closely to compensate for this. He denied active suicidal or homicidal ideation when I met in the evening of 06/19/2021. PAST PSYCHIATRIC HISTORY: As above and he does have a history of personality disorder. MEDICAL HISTORY: Obesity, impaired ambulation in wheelchair, pressure ulcer, right heel, history of cerebral infarction, diabetes mellitus, skin infection, morbid obesity, bilateral osteoarthritis of knees, congestive heart failure, polyphagia by history, atherosclerotic heart disease, chronic kidney disease, stage III, abnormal weight gain, abnormal cardiac function, cellulitis, hypertension, history of aortocoronary bypass, muscle weakness, dysphagia. Accu-Cheks before meals and at bedtime. ALLERGIES: Negative. CODE STATUS: Full code. DIET: Diabetic renal __ dysphagia 2 diet. Takes medications whole. Ambulates wheelchair. UA, 06/19/2021 was negative. CURRENT PSYCHOTROPICS: Cymbalta 90 mg a day, trazodone 150 mg at bedtime, Abilify 7.5 mg a day. FAMILY HISTORY: Noncontributory. SOCIAL HISTORY: No alcohol, drug abuse, physical, sexual, elder abuse history is noted. He is not known to be a perpetrator. The patient was and lived on the [facility] with his who [place] a [place] in [place]. His rather suddenly reportedly from a blood clot and the patient has gradually deteriorated since then. 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 REVIEW OF SYSTEMS: Ambulation impaired, in wheelchair. No CV, , pulmonary, eye system symptoms on review. MENTAL STATUS EXAM: The patient is reasonably oriented, remembered me from me past visit. Abstraction fair. Computation somewhat impaired. Language function intact. Mood and affect depressed, anxious, slightly paranoid, irritable. No active suicidal or homicidal ideation. He is somewhat distractible. IMPRESSION: Major depressive disorder, recurrent, rule out psychotic features, personality disorder, unspecified; rule out bipolar disorder, unspecified. Rest as above. PLAN: Admit to Geropsychiatry unit at [facility]. I will see the patient daily individually from a psychiatric standpoint, medical followup, Dr. Gandhi/Dr. Hendrickson. Continue the patient on his current psychotropics. Consider adding Wellbutrin as an antidepressant. We will take precautions for his suicide risk as clinically appropriate. ESTIMATED LENGTH OF STAY: 10-12 days. DISPOSITION PLANS: Back to [facility] when stable. NOLAN DR: Reid TID: [id number]
--- NOTE | 2021-06-20 22:57 | CONS ---
DATE OF CONSULTATION: 06/20/2021 ATTENDING PHYSICIAN: Dr. Levi. HISTORY OF PRESENT ILLNESS: We are asked to see this patient for medical consultation. The patient is a 66-year-old gentleman from a alf in [place]. He is well known to us as he was just here a month ago. He is having more anxiety, putting himself on the floor, being aggressive towards the staff. He was readmitted then for adjustment of his medication. When I saw him, he was fairly alert. He was a bit remorseful regarding his behavior. PAST MEDICAL HISTORY: Significant for old stroke, congestive heart failure, compensated; chronic kidney disease, type 2 diabetes, essential hypertension, obesity, degenerative arthritis, polyneuropathy, generalized anxiety, and impulse control disorder. CURRENT MEDICATIONS: Reviewed. He was on schedule Abilify, aspirin, Lipitor, Coreg, Plavix, Cymbalta, insulin regular and Lantus, multivitamin, oxycodone p.r.n., potassium, Januvia, and trazodone. ALLERGIES: He has no recorded drug allergies. SOCIAL HISTORY: He is a nonsmoker, nondrinker. FAMILY HISTORY: Unobtainable. REVIEW OF SYSTEMS: Significant for the recent admission to the senior behavioral unit. He is fairly alert in the sense that he wants his medication adjusted. He is still very anxious. He has somewhat limited insight. All other systems reviewed and turned out to be negative. PHYSICAL EXAMINATION: GENERAL: When I saw him, this is a pleasant elderly gentleman in no acute distress. VITAL SIGNS: Initial vital signs showed a blood pressure 146/85, pulse was 90 and regular. He was afebrile, oxygen saturation 94% on 2 liters by nasal cannula. HEENT: Head is without trauma. Pupils are reactive. Sclerae nonicteric. Oropharynx clear. NECK: Supple, no bruits identified. LUNGS: Otherwise clear. CARDIOVASCULAR: Showed regular heart tones. No gallops. ABDOMEN: Soft. EXTREMITIES: Without edema. NEUROLOGIC: He is pleasantly confused, but otherwise, focally intact. PERTINENT LABORATORY STUDIES: On this admission, his hemoglobin was 13.0 g/dL with a white count of 5400. Electrolytes were all within normal range. Nonfasting blood sugar 162, creatinine is 1.2 mg percent. Urinalysis is clear. ASSESSMENT: 1. This 66-year-old gentleman has significant anxiety with associated depression and behavioral issues. 2. Obesity. 3. Type 2 diabetes with stable blood sugars. 4. Essential hypertension. 5. History of congestive heart failure, compensated. 6. Old stroke with residual deficits. 7. Degenerative arthritis. RECOMMENDATIONS: 1. This patient has been seen and is stable from a medical standpoint. 2. I have reviewed all his medications and these need to be continued at the same dosage. 3. Thank you again for asking me to see the patient for medical consultation. We are familiar with him from his last admission. We shall gladly follow along during his current inpatient stay. ELISA DR: Francisco TID: [id number] CC: ESE LEVI MD
[2021-06-21 00:09] LABS: HEMOGLOBIN A1C 6.4 % (4.8-5.6); THYROXINE 6.3 ug/dL (4.5-12.0)
[2021-06-21] MEDS: oxyCODONE/APAP 10/325 1 TAB TABLET PO PRN (00:36)
--- NOTE | 2021-06-21 02:42 | PN ---
DATE: 06/20/2021 PSYCHIATRIC PROGRESS NOTE This note covers elements not covered in my initial note. I met with the patient on the evening of 06/20/2021. The patient was staffed at treatment team meeting with the entire team, morning of 06/20/2021. SUBJECTIVE: We had a lengthy discussion about the patient's diagnosis circumstances prompting admission. Reportedly, he had refused to eat and blood sugars had dropped significantly to where even after three injections of glucose, blood sugar just came up to 40, at which time, he had been sent to the Emergency Room. He has been making cuts on his legs prior to admission as a self-harm and previous night, he was hitting his head with his hands. Nursing staff spent a long period of time with him. He is frequently asking for assistance even for things he can do himself, needs a Shyam lift. He had a flu vaccine 04/10/2021. Discussed with RIAN Hemphill in the evening. The patient has been depressed, helpless. Appetite is poor. REVIEW OF SYSTEMS: Ambulation impaired, in wheelchair. No CV, , pulmonary, eye system symptoms on review. He has vague somatic symptoms. MENTAL STATUS EXAMINATION: Oriented reasonably. Speech is coherent, some latency. Abstraction fair. Computation impaired. Language function intact. Attention span short. He is depressed, anxious. No active suicidal or homicidal ideation. LABORATORY DATA: Reviewed. IMPRESSION: Major depressive disorder with possible psychotic features; anxiety disorder, unspecified; personality disorder, unspecified. PLAN: Reduce the Cymbalta from 90 mg a day to 60 mg a day and augment with Wellbutrin-XL 150 mg a day for 5 days, then 300 mg a day thereafter. Continue trazodone 150 mg at bedtime, Abilify 7.5 mg a day to augment the antidepressants and Zyprexa p.r.n. We will make further adjustments as clinically indicated. DUTCH DR: Reid TID: [id number]
--- NOTE | 2021-06-21 06:32 | EKG ---
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
[2021-06-21 07:20] VITALS: BP 138/92
[2021-06-21] MEDS: INSULIN LISPRO 300 UNITS/3 ML VIAL. SQ SCH ×3 (07:30→16:30)
[2021-06-21] MEDS: MULTIVITAMIN with MINERAL TABLET. PO SCH (09:02)
[2021-06-21] MEDS: POTASSIUM CHLORIDE 10 MEQ TABLET.ER. PO SCH (09:02)
[2021-06-21] MEDS: LINAGLIPTIN 5 MG TABLET PO SCH (09:02)
[2021-06-21] MEDS: ARIPiprazole 5 MG TABLET PO SCH (09:02)
[2021-06-21] MEDS: ASPIRIN CHEWABLE 81 MG TABLET. PO SCH (09:02)
[2021-06-21] MEDS: CLOPIDOGREL BISULFATE 75 MG TABLET PO SCH (09:02)
[2021-06-21] MEDS: DULoxetine HCL 30 MG CAPSULE.DR PO SCH (09:03)
[2021-06-21] MEDS: CARVEDILOL 12.5 MG TABLET PO SCH ×2 (09:03→19:42)
[2021-06-21] MEDS: buPROPion XL 150 MG TAB.ER.24H PO SCH (09:03)
[2021-06-21 15:14] VITALS: BP 122/81
[2021-06-21] MEDS: INSULIN GLARGINE SYRINGE. SQ SCH (19:31)
[2021-06-21] MEDS: ATORVASTATIN CALCIUM 20 MG TABLET PO SCH (19:42)
[2021-06-21] MEDS: traZODone 100 MG TABLET. PO SCH (19:42)
--- NOTE | 2021-06-21 20:53 | PDOC ---
Exam Note: Josef Note: Please also refer to the separate dictated note~for this date of service dictated separately.~Patient seen individually. Discussed the patient with Nursing staff reviewed the chart.~Reviewed interim history and current functioning. Reviewed vital signs,~Labs/ Radiology~and current medications noted below. Continue current treatment with the changes noted in the dictated addendum note Assessment: Vital Signs/I&O: Vital Signs Date Time Temp Pulse Resp B/P (MAP) Pulse Ox O2 Delivery O2 Flow Rate FiO2 06/21/21 19:42 100 122/81 06/21/21 15:14 97.0 18 94 06/20/21 06:16 2.0 06/19/21 17:35 Nasal Cannula I & O 06/20/21 06/20/21 06/21/21 14:59 22:59 06:59 Intake Total 480 ml 600 ml Balance 480 ml 600 ml Labs: Laboratory Tests Test 06/21/21 07:13 06/21/21 11:37 06/21/21 16:35 06/21/21 19:18 Glucose (Fingerstick) 145 mg/dL (70-99) H 250 mg/dL (70-99) H 112 mg/dL (70-99) H 161 mg/dL (70-99) H Current Medications: Meds: Current Medications Medications (Trade) Dose Ordered Sig/Nicky Route PRN Reason Start Time Stop Time Status Last Admin Dose Admin Duloxetine HCl (Cymbalta) 60 mg DAILY PO 06/21/21 09:00 06/21/21 09:03 Bupropion HCl (Wellbutrin Xl) 150 mg DAILY PO 06/21/21 09:00 06/25/21 21:00 06/21/21 09:03 I have reviewed the current psychotropics carefully including drug interactions. Risk benefit ratio favors no change other than as noted in my dictated progress note. Diagnosis: Problems: (1) Major depressive disorder, recurrent (2) Impulse control disorder, unspecified (3) Personality disorder, unspecified (4) Anxiety disorder, unspecified ESE LEVI MD Jun 21, 2021 20:53
[2021-06-21] MEDS: lamoTRIgine 25 MG TABLET. PO SCH (21:10)
[2021-06-22 05:43] VITALS: BP 152/86
[2021-06-22] MEDS ORDERED: DOCUSATE SODIUM 100 MG CAPSULE PO SCH (09:00)
[2021-06-22] MEDS: DOCUSATE SODIUM 100 MG CAPSULE PO SCH ×2 (09:11→19:56)
[2021-06-22] MEDS: buPROPion XL 150 MG TAB.ER.24H PO SCH (09:11)
[2021-06-22] MEDS: LINAGLIPTIN 5 MG TABLET PO SCH (09:11)
[2021-06-22] MEDS: DULoxetine HCL 30 MG CAPSULE.DR PO SCH (09:11)
[2021-06-22] MEDS: POTASSIUM CHLORIDE 10 MEQ TABLET.ER. PO SCH (09:12)
[2021-06-22] MEDS: ARIPiprazole 5 MG TABLET PO SCH (09:12)
[2021-06-22] MEDS: ASPIRIN CHEWABLE 81 MG TABLET. PO SCH (09:12)
[2021-06-22] MEDS: CLOPIDOGREL BISULFATE 75 MG TABLET PO SCH (09:12)
[2021-06-22] MEDS: CARVEDILOL 12.5 MG TABLET PO SCH ×2 (09:12→19:56)
[2021-06-22] MEDS: MULTIVITAMIN with MINERAL TABLET. PO SCH (09:12)
[2021-06-22] MEDS: INSULIN LISPRO 300 UNITS/3 ML VIAL. SQ SCH ×3 (09:17→16:30)
[2021-06-22 15:44] VITALS: BP 129/77
[2021-06-22] MEDS: INSULIN GLARGINE SYRINGE. SQ SCH (19:19)
[2021-06-22] MEDS: traZODone 100 MG TABLET. PO SCH (19:55)
[2021-06-22] MEDS: ATORVASTATIN CALCIUM 20 MG TABLET PO SCH (19:56)
[2021-06-22] MEDS: lamoTRIgine 25 MG TABLET. PO SCH (19:56)
--- NOTE | 2021-06-22 20:40 | PDOC ---
Exam Note: Josef Note: Please also refer to the separate dictated note~for this date of service dictated separately.~Patient seen individually. Discussed the patient with Nursing staff reviewed the chart.~Reviewed interim history and current functioning. Reviewed vital signs,~Labs/ Radiology~and current medications noted below. Continue current treatment with the changes noted in the dictated addendum note Assessment: Vital Signs/I&O: Vital Signs Date Time Temp Pulse Resp B/P (MAP) Pulse Ox O2 Delivery O2 Flow Rate FiO2 06/22/21 19:56 92 129/77 06/22/21 15:44 97.1 20 96 06/20/21 06:16 2.0 06/19/21 17:35 Nasal Cannula I & O 06/21/21 06/21/21 06/22/21 15:00 23:00 07:00 Intake Total 520 ml 600 ml Output Total 250 ml Balance 520 ml 600 ml -250 ml Labs: Laboratory Tests Test 06/22/21 07:14 06/22/21 11:36 06/22/21 16:52 06/22/21 19:09 Glucose (Fingerstick) 138 mg/dL (70-99) H 153 mg/dL (70-99) H 79 mg/dL (70-99) 110 mg/dL (70-99) H Current Medications: Meds: Laboratory Tests Test 06/22/21 07:14 06/22/21 11:36 06/22/21 16:52 06/22/21 19:09 Glucose (Fingerstick) 138 mg/dL 153 mg/dL 79 mg/dL 110 mg/dL Current Medications Medications (Trade) Dose Ordered Sig/Nicky Route PRN Reason Start Time Stop Time Status Last Admin Dose Admin Acetaminophen (Tylenol) 650 mg PRN Q6HRS PRN PO MILD PAIN / TEMP > 100.3'F 06/19/21 17:00 Multi-Ingredient Ointment (Analgesic [place]) 1 neelima PRN QID PRN TP MUSCLE PAIN 06/19/21 17:00 Al Hydroxide/Mg Hydroxide (Mylanta Plus Xs) 15 ml PRN AFTMEALHC PRN PO DYSPEPSIA 06/19/21 17:00 06/20/21 04:51 Magnesium Hydroxide (Milk Of Magnesia) 2,400 mg PRN QHS PRN PO CONSTIPATION 06/19/21 17:00 Aripiprazole (Abilify) 7.5 mg DAILY PO 06/20/21 09:00 06/22/21 09:12 Aspirin (Aspirin Chewable) 81 mg DAILY PO 06/20/21 09:00 06/22/21 09:12 Clopidogrel Bisulfate (Plavix) 75 mg DAILY PO 06/20/21 09:00 06/22/21 09:12 Duloxetine HCl (Cymbalta) 90 mg DAILY PO 06/20/21 09:00 06/20/21 18:46 DC 06/20/21 09:53 Oxycodone/ Acetaminophen (Percocet 10/325) 1 tab PRN Q6HRS PRN PO PAIN 06/19/21 17:00 06/21/21 00:36 Potassium Chloride (Klor-Con) 30 meq DAILY PO 06/20/21 09:00 06/22/21 09:12 Trazodone HCl (Desyrel) 150 mg HS PO 06/19/21 21:00 06/22/21 19:55 Atorvastatin Calcium (Lipitor) 80 mg QHS PO 06/19/21 21:00 06/22/21 19:56 Carvedilol (Coreg) 37.5 mg BID PO 06/19/21 21:00 06/22/21 19:56 Insulin Human Lispro (HumaLOG) 12 units TIDBFRMEAL SQ 06/20/21 07:30 06/22/21 13:17 Insulin Glargine (Lantus Syringe) 48 unit QHS SQ 06/19/21 21:00 Multivitamins/ Calcium (Thera-M Plus) 1 tab DAILY PO 06/20/21 09:00 06/22/21 09:12 Linagliptin (Tradjenta) 5 mg DAILY PO 06/20/21 09:00 06/22/21 09:11 Olanzapine (ZyPREXA ZYDIS) 2.5 mg PRN Q2HR PRN PO PSYCHOSIS 06/20/21 03:15 06/20/21 03:14 Duloxetine HCl (Cymbalta) 60 mg DAILY PO 06/21/21 09:00 06/22/21 09:11 Bupropion HCl (Wellbutrin Xl) 150 mg DAILY PO 06/21/21 09:00 06/25/21 21:00 06/22/21 09:11 Bupropion HCl (Wellbutrin Xl) 300 mg DAILY PO 06/26/21 09:00 Docusate Sodium (Colace) 100 mg DAILY PO 06/22/21 09:00 06/22/21 00:17 DC Lamotrigine (LaMICtal) 25 mg QHS PO 06/21/21 21:00 06/23/21 23:59 06/22/21 19:56 Lamotrigine (LaMICtal) 50 mg QHS PO 06/24/21 21:00 06/26/21 23:59 Lamotrigine (LaMICtal) 75 mg QHS PO 06/27/21 21:00 06/29/21 23:55 Lamotrigine (LaMICtal) 100 mg QHS PO 06/30/21 21:00 Docusate Sodium (Colace) 100 mg BID PO 06/22/21 09:00 06/22/21 19:56 Current Medications Medications (Trade) Dose Ordered Sig/Nicky Route PRN Reason Start Time Stop Time Status Last Admin Dose Admin Lamotrigine (LaMICtal) 25 mg QHS PO 06/21/21 21:00 06/23/21 23:59 06/22/21 19:56 Docusate Sodium (Colace) 100 mg BID PO 06/22/21 09:00 06/22/21 19:56 I have reviewed the current psychotropics carefully including drug interactions. Risk benefit ratio favors no change other than as noted in my dictated progress note. Diagnosis: Problems: (1) Impulse control disorder, unspecified (2) Personality disorder, unspecified (3) Anxiety disorder, unspecified (4) Major depressive disorder, recurrent (5) Major depressive disorder, recurrent, severe with psychotic features ESE LEVI MD Jun 22, 2021 20:40
[2021-06-23 06:00] VITALS: BP 123/81
--- NOTE | 2021-06-23 08:26 | PDOC ---
Exam Note: Josef Note: This note is a late entry for 06/21/2021 covers elements not covered in my initial note. Subjective: The patient was seen individually in the evening of 06/21/2021 with Ashli MODI, discussed and reviewed the chart. The patient slept 6-1/4 hours previous night. She did better previous night, trying to do things by himself. He is somewhat self deprecating in his comments. He was hitting his head with his hand and then apologized to nursing for doing this. He stated this happened because of his panic attacks and at that time he made statements that he wanted to kill himself. When I questioned him closely on this he denied suicidal ideation. Review of Systems: Ambulation impaired, in Broda chair. No CV, , pulmonary, eye, ENT system symptoms on review. He does complain of discomfort in lower extremity and he does continue to have some bruising and Wound Management was involved. He does complain of constipation. This may be due to his pain medication. We will start Colace b.i.d. Mental Status Exam: The patient is reasonably oriented. Speech has some la tency, coherent. Abstraction fair. Computation impaired. Language function intact. Attention span short. Mood and affect remains somewhat anxious, labile. Laboratory Data: Reviewed. Impression: Major depressive disorder, recurrent, rule out psychotic features. Personality disorder unspecified. Anxiety disorder unspecified. Plan: The patient does have some symptoms of bipolar 2 disorder with his mood swings, worsening depressive symptoms. We will start Lamictal 25 mg a day for 3 days, then 50 mg a day after that. Continue rest unchanged for now. Assessment: Vital Signs/I&O: Vital Signs Date Time Temp Pulse Resp B/P (MAP) Pulse Ox O2 Delivery O2 Flow Rate FiO2 06/23/21 06:00 96.8 98 22 123/81 (95) 91 06/20/21 06:16 2.0 06/19/21 17:35 Nasal Cannula I & O 06/22/21 06/22/21 06/23/21 15:00 23:00 07:00 Intake Total 840 ml 600 ml Balance 840 ml 600 ml Labs: Laboratory Tests Test 06/22/21 11:36 06/22/21 16:52 06/22/21 19:09 06/23/21 07:24 Glucose (Fingerstick) 153 mg/dL (70-99) H 79 mg/dL (70-99) 110 mg/dL (70-99) H 151 mg/dL (70-99) H Current Medications: Meds: Laboratory Tests Test 06/22/21 11:36 06/22/21 16:52 06/22/21 19:09 06/23/21 07:24 Glucose (Fingerstick) 153 mg/dL 79 mg/dL 110 mg/dL 151 mg/dL Current Medications Medications (Trade) Dose Ordered Sig/Nicky Route PRN Reason Start Time Stop Time Status Last Admin Dose Admin Acetaminophen (Tylenol) 650 mg PRN Q6HRS PRN PO MILD PAIN / TEMP > 100.3'F 06/19/21 17:00 Multi-Ingredient Ointment (Analgesic [place]) 1 neelima PRN QID PRN TP MUSCLE PAIN 06/19/21 17:00 Al Hydroxide/Mg Hydroxide (Mylanta Plus Xs) 15 ml PRN AFTMEALHC PRN PO DYSPEPSIA 06/19/21 17:00 06/20/21 04:51 Magnesium Hydroxide (Milk Of Magnesia) 2,400 mg PRN QHS PRN PO CONSTIPATION 06/19/21 17:00 Aripiprazole (Abilify) 7.5 mg DAILY PO 06/20/21 09:00 06/22/21 09:12 Aspirin (Aspirin Chewable) 81 mg DAILY PO 06/20/21 09:00 06/22/21 09:12 Clopidogrel Bisulfate (Plavix) 75 mg DAILY PO 06/20/21 09:00 06/22/21 09:12 Duloxetine HCl (Cymbalta) 90 mg DAILY PO 06/20/21 09:00 06/20/21 18:46 DC 06/20/21 09:53 Oxycodone/ Acetaminophen (Percocet 10/325) 1 tab PRN Q6HRS PRN PO PAIN 06/19/21 17:00 06/21/21 00:36 Potassium Chloride (Klor-Con) 30 meq DAILY PO 06/20/21 09:00 06/22/21 09:12 Trazodone HCl (Desyrel) 150 mg HS PO 06/19/21 21:00 06/22/21 19:55 Atorvastatin Calcium (Lipitor) 80 mg QHS PO 06/19/21 21:00 06/22/21 19:56 Carvedilol (Coreg) 37.5 mg BID PO 06/19/21 21:00 06/22/21 19:56 Insulin Human Lispro (HumaLOG) 12 units TIDBFRMEAL SQ 06/20/21 07:30 06/22/21 13:17 Insulin Glargine (Lantus Syringe) 48 unit QHS SQ 06/19/21 21:00 Multivitamins/ Calcium (Thera-M Plus) 1 tab DAILY PO 06/20/21 09:00 06/22/21 09:12 Linagliptin (Tradjenta) 5 mg DAILY PO 06/20/21 09:00 06/22/21 09:11 Olanzapine (ZyPREXA ZYDIS) 2.5 mg PRN Q2HR PRN PO PSYCHOSIS 06/20/21 03:15 06/23/21 00:14 Duloxetine HCl (Cymbalta) 60 mg DAILY PO 06/21/21 09:00 06/22/21 09:11 Bupropion HCl (Wellbutrin Xl) 150 mg DAILY PO 06/21/21 09:00 06/25/21 21:00 06/22/21 09:11 Bupropion HCl (Wellbutrin Xl) 300 mg DAILY PO 06/26/21 09:00 Docusate Sodium (Colace) 100 mg DAILY PO 06/22/21 09:00 06/22/21 00:17 DC Lamotrigine (LaMICtal) 25 mg QHS PO 06/21/21 21:00 06/23/21 23:59 06/22/21 19:56 Lamotrigine (LaMICtal) 50 mg QHS PO 06/24/21 21:00 06/26/21 23:59 Lamotrigine (LaMICtal) 75 mg QHS PO 06/27/21 21:00 06/29/21 23:55 Lamotrigine (LaMICtal) 100 mg QHS PO 06/30/21 21:00 Docusate Sodium (Colace) 100 mg BID PO 06/22/21 09:00 06/22/21 19:56 Current Medications Medications (Trade) Dose Ordered Sig/Nicky Route PRN Reason Start Time Stop Time Status Last Admin Dose Admin Docusate Sodium (Colace) 100 mg BID PO 06/22/21 09:00 06/22/21 19:56 I have reviewed the current psychotropics carefully including drug interactions. Risk benefit ratio favors no change other than as noted in my dictated progress note. Diagnosis: Problems: (1) Major depressive disorder, recurrent, severe with psychotic features (2) Impulse control disorder, unspecified (3) Personality disorder, unspecified (4) Anxiety disorder, unspecified ESE LEVI MD Jun 23, 2021 08:26
--- NOTE | 2021-06-23 08:41 | PDOC ---
Exam Note: Josef Note: This note is a late entry for 06/22/2021 covers elements not covered in my initial note. Subjective: The patient was seen individually in the evening of 06/22/2021 with Ashli MODI, discussed and reviewed the chart. The patient slept poorly 3-3/4 hours previous night partly because bed alarm was going off frequently. Nursing staff will address this today. She remains somewhat withdrawn and per nursing report tends to present himself as poor me. He denies suicidal ideation. He has been attention seeking, puts himself on the floor and then urinated on the floor. He has been up and down all night. Review of Systems: Ambulation impaired, in Broda chair. No CV, , pulmonary, eye, ENT system symptoms on review. Mental Status Exam: The patient is reasonably oriented. Speech has some latency, coherent. Abstraction fair. Computation impaired. Language function intact. Attention span short. Mood and affect remains somewhat anxious, labile. Laboratory Data: Reviewed. Impression: Major depressive disorder, recurrent, rule out psychotic features. Anxiety disorder unspecified. Personality disorder unspecified. Plan: Continue rest unchanged for now. Assessment: Vital Signs/I&O: Vital Signs Date Time Temp Pulse Resp B/P (MAP) Pulse Ox O2 Delivery O2 Flow Rate FiO2 06/23/21 06:00 96.8 98 22 123/81 (95) 91 06/20/21 06:16 2.0 06/19/21 17:35 Nasal Cannula I & O 06/22/21 06/22/21 06/23/21 15:00 23:00 07:00 Intake Total 840 ml 600 ml Balance 840 ml 600 ml Labs: Laboratory Tests Test 06/22/21 11:36 06/22/21 16:52 06/22/21 19:09 06/23/21 07:24 Glucose (Fingerstick) 153 mg/dL (70-99) H 79 mg/dL (70-99) 110 mg/dL (70-99) H 151 mg/dL (70-99) H Current Medications: Meds: Laboratory Tests Test 06/22/21 11:36 06/22/21 16:52 06/22/21 19:09 06/23/21 07:24 Glucose (Fingerstick) 153 mg/dL 79 mg/dL 110 mg/dL 151 mg/dL Current Medications Medications (Trade) Dose Ordered Sig/Nicky Route PRN Reason Start Time Stop Time Status Last Admin Dose Admin Acetaminophen (Tylenol) 650 mg PRN Q6HRS PRN PO MILD PAIN / TEMP > 100.3'F 06/19/21 17:00 Multi-Ingredient Ointment (Analgesic [place]) 1 neelima PRN QID PRN TP MUSCLE PAIN 06/19/21 17:00 Al Hydroxide/Mg Hydroxide (Mylanta Plus Xs) 15 ml PRN AFTMEALHC PRN PO DYSPEPSIA 06/19/21 17:00 06/20/21 04:51 Magnesium Hydroxide (Milk Of Magnesia) 2,400 mg PRN QHS PRN PO CONSTIPATION 06/19/21 17:00 Aripiprazole (Abilify) 7.5 mg DAILY PO 06/20/21 09:00 06/22/21 09:12 Aspirin (Aspirin Chewable) 81 mg DAILY PO 06/20/21 09:00 06/22/21 09:12 Clopidogrel Bisulfate (Plavix) 75 mg DAILY PO 06/20/21 09:00 06/22/21 09:12 Duloxetine HCl (Cymbalta) 90 mg DAILY PO 06/20/21 09:00 06/20/21 18:46 DC 06/20/21 09:53 Oxycodone/ Acetaminophen (Percocet 10/325) 1 tab PRN Q6HRS PRN PO PAIN 06/19/21 17:00 06/21/21 00:36 Potassium Chloride (Klor-Con) 30 meq DAILY PO 06/20/21 09:00 06/22/21 09:12 Trazodone HCl (Desyrel) 150 mg HS PO 06/19/21 21:00 06/22/21 19:55 Atorvastatin Calcium (Lipitor) 80 mg QHS PO 06/19/21 21:00 06/22/21 19:56 Carvedilol (Coreg) 37.5 mg BID PO 06/19/21 21:00 06/22/21 19:56 Insulin Human Lispro (HumaLOG) 12 units TIDBFRMEAL SQ 06/20/21 07:30 06/22/21 13:17 Insulin Glargine (Lantus Syringe) 48 unit QHS SQ 06/19/21 21:00 Multivitamins/ Calcium (Thera-M Plus) 1 tab DAILY PO 06/20/21 09:00 06/22/21 09:12 Linagliptin (Tradjenta) 5 mg DAILY PO 06/20/21 09:00 06/22/21 09:11 Olanzapine (ZyPREXA ZYDIS) 2.5 mg PRN Q2HR PRN PO PSYCHOSIS 06/20/21 03:15 06/23/21 00:14 Duloxetine HCl (Cymbalta) 60 mg DAILY PO 06/21/21 09:00 06/22/21 09:11 Bupropion HCl (Wellbutrin Xl) 150 mg DAILY PO 06/21/21 09:00 06/25/21 21:00 06/22/21 09:11 Bupropion HCl (Wellbutrin Xl) 300 mg DAILY PO 06/26/21 09:00 Docusate Sodium (Colace) 100 mg DAILY PO 06/22/21 09:00 06/22/21 00:17 DC Lamotrigine (LaMICtal) 25 mg QHS PO 06/21/21 21:00 06/23/21 23:59 06/22/21 19:56 Lamotrigine (LaMICtal) 50 mg QHS PO 06/24/21 21:00 06/26/21 23:59 Lamotrigine (LaMICtal) 75 mg QHS PO 06/27/21 21:00 06/29/21 23:55 Lamotrigine (LaMICtal) 100 mg QHS PO 06/30/21 21:00 Docusate Sodium (Colace) 100 mg BID PO 06/22/21 09:00 06/22/21 19:56 Current Medications Medications (Trade) Dose Ordered Sig/Nicky Route PRN Reason Start Time Stop Time Status Last Admin Dose Admin Docusate Sodium (Colace) 100 mg BID PO 06/22/21 09:00 06/22/21 19:56 I have reviewed the current psychotropics carefully including drug interactions. Risk benefit ratio favors no change other than as noted in my dictated progress note. Diagnosis: Problems: (1) Major depressive disorder, recurrent, severe with psychotic features (2) Impulse control disorder, unspecified (3) Personality disorder, unspecified (4) Anxiety disorder, unspecified ESE LEVI MD Jun 23, 2021 08:41
[2021-06-23] MEDS: DOCUSATE SODIUM 100 MG CAPSULE PO SCH ×2 (08:54→19:55)
[2021-06-23] MEDS: MULTIVITAMIN with MINERAL TABLET. PO SCH (08:54)
[2021-06-23] MEDS: ASPIRIN CHEWABLE 81 MG TABLET. PO SCH (08:54)
[2021-06-23] MEDS: buPROPion XL 150 MG TAB.ER.24H PO SCH (08:54)
[2021-06-23] MEDS: LINAGLIPTIN 5 MG TABLET PO SCH (08:54)
[2021-06-23] MEDS: CLOPIDOGREL BISULFATE 75 MG TABLET PO SCH (08:54)
[2021-06-23] MEDS: POTASSIUM CHLORIDE 10 MEQ TABLET.ER. PO SCH (08:55)
[2021-06-23] MEDS: DULoxetine HCL 30 MG CAPSULE.DR PO SCH (08:55)
[2021-06-23] MEDS: ARIPiprazole 5 MG TABLET PO SCH (08:55)
[2021-06-23] MEDS: CARVEDILOL 12.5 MG TABLET PO SCH ×2 (08:55→19:56)
[2021-06-23] MEDS: INSULIN LISPRO 300 UNITS/3 ML VIAL. SQ SCH ×3 (09:25→17:48)
[2021-06-23 15:50] VITALS: BP 136/84
[2021-06-23] MEDS: ATORVASTATIN CALCIUM 20 MG TABLET PO SCH (19:48)
[2021-06-23] MEDS: lamoTRIgine 25 MG TABLET. PO SCH (19:55)
[2021-06-23] MEDS: traZODone 100 MG TABLET. PO SCH (19:55)
--- NOTE | 2021-06-23 20:11 | PDOC ---
Exam Note: Josef Note: Please also refer to the separate dictated note~for this date of service dictated separately.~Patient seen individually. Discussed the patient with Nursing staff reviewed the chart.~Reviewed interim history and current functioning. Reviewed vital signs,~Labs/ Radiology~and current medications noted below. Continue current treatment with the changes noted in the dictated addendum note Assessment: Vital Signs/I&O: Vital Signs Date Time Temp Pulse Resp B/P (MAP) Pulse Ox O2 Delivery O2 Flow Rate FiO2 06/23/21 19:56 87 136/84 06/23/21 15:50 97.4 20 95 Room Air 06/20/21 06:16 2.0 I & O 06/22/21 06/22/21 06/23/21 15:00 23:00 07:00 Intake Total 840 ml 600 ml Balance 840 ml 600 ml Labs: Laboratory Tests Test 06/23/21 07:24 06/23/21 09:13 06/23/21 11:44 06/23/21 17:13 Glucose (Fingerstick) 151 mg/dL (70-99) H 187 mg/dL (70-99) H 143 mg/dL (70-99) H 164 mg/dL (70-99) H Test 06/23/21 19:47 Glucose (Fingerstick) 135 mg/dL (70-99) H Current Medications: Meds: Laboratory Tests Test 06/23/21 07:24 06/23/21 09:13 06/23/21 11:44 06/23/21 17:13 Glucose (Fingerstick) 151 mg/dL 187 mg/dL 143 mg/dL 164 mg/dL Test 06/23/21 19:47 Glucose (Fingerstick) 135 mg/dL Current Medications Medications (Trade) Dose Ordered Sig/Nicky Route PRN Reason Start Time Stop Time Status Last Admin Dose Admin Acetaminophen (Tylenol) 650 mg PRN Q6HRS PRN PO MILD PAIN / TEMP > 100.3'F 06/19/21 17:00 Multi-Ingredient Ointment (Analgesic [place]) 1 neelima PRN QID PRN TP MUSCLE PAIN 06/19/21 17:00 Al Hydroxide/Mg Hydroxide (Mylanta Plus Xs) 15 ml PRN AFTMEALHC PRN PO DYSPEPSIA 06/19/21 17:00 06/20/21 04:51 Magnesium Hydroxide (Milk Of Magnesia) 2,400 mg PRN QHS PRN PO CONSTIPATION 06/19/21 17:00 Aripiprazole (Abilify) 7.5 mg DAILY PO 06/20/21 09:00 06/23/21 08:55 Aspirin (Aspirin Chewable) 81 mg DAILY PO 06/20/21 09:00 06/23/21 08:54 Clopidogrel Bisulfate (Plavix) 75 mg DAILY PO 06/20/21 09:00 06/23/21 08:54 Duloxetine HCl (Cymbalta) 90 mg DAILY PO 06/20/21 09:00 06/20/21 18:46 DC 06/20/21 09:53 Oxycodone/ Acetaminophen (Percocet 10/325) 1 tab PRN Q6HRS PRN PO PAIN 06/19/21 17:00 06/21/21 00:36 Potassium Chloride (Klor-Con) 30 meq DAILY PO 06/20/21 09:00 06/23/21 08:55 Trazodone HCl (Desyrel) 150 mg HS PO 06/19/21 21:00 06/23/21 19:55 Atorvastatin Calcium (Lipitor) 80 mg QHS PO 06/19/21 21:00 06/23/21 19:48 Carvedilol (Coreg) 37.5 mg BID PO 06/19/21 21:00 06/23/21 19:56 Insulin Human Lispro (HumaLOG) 12 units TIDBFRMEAL SQ 06/20/21 07:30 06/23/21 17:48 Insulin Glargine (Lantus Syringe) 48 unit QHS SQ 06/19/21 21:00 Multivitamins/ Calcium (Thera-M Plus) 1 tab DAILY PO 06/20/21 09:00 06/23/21 08:54 Linagliptin (Tradjenta) 5 mg DAILY PO 06/20/21 09:00 06/23/21 08:54 Olanzapine (ZyPREXA ZYDIS) 2.5 mg PRN Q2HR PRN PO PSYCHOSIS 06/20/21 03:15 06/23/21 00:14 Duloxetine HCl (Cymbalta) 60 mg DAILY PO 06/21/21 09:00 06/23/21 08:55 Bupropion HCl (Wellbutrin Xl) 150 mg DAILY PO 06/21/21 09:00 06/25/21 21:00 06/23/21 08:54 Bupropion HCl (Wellbutrin Xl) 300 mg DAILY PO 06/26/21 09:00 Docusate Sodium (Colace) 100 mg DAILY PO 06/22/21 09:00 06/22/21 00:17 DC Lamotrigine (LaMICtal) 25 mg QHS PO 06/21/21 21:00 06/23/21 23:59 06/23/21 19:55 Lamotrigine (LaMICtal) 50 mg QHS PO 06/24/21 21:00 06/26/21 23:59 Lamotrigine (LaMICtal) 75 mg QHS PO 06/27/21 21:00 06/29/21 23:55 Lamotrigine (LaMICtal) 100 mg QHS PO 06/30/21 21:00 Docusate Sodium (Colace) 100 mg BID PO 06/22/21 09:00 06/23/21 19:55 I have reviewed the current psychotropics carefully including drug interactions. Risk benefit ratio favors no change other than as noted in my dictated progress note. Diagnosis: Problems: (1) Major depressive disorder, recurrent, severe with psychotic features (2) Impulse control disorder, unspecified (3) Personality disorder, unspecified (4) Anxiety disorder, unspecified ESE LEVI MD Jun 23, 2021 20:11
[2021-06-23] MEDS: INSULIN GLARGINE SYRINGE. SQ SCH (20:16)
[2021-06-24 06:07] VITALS: BP 128/84
--- NOTE | 2021-06-24 06:50 | PDOC ---
Exam Note: Josef Note: This note is a late entry for 06/23/2021 covers elements not covered in my initial note. Subjective: The patient was seen individually in the evening of 06/23/2021 with Froylan MODI, discussed and reviewed the chart. The patient slept 4-3/4 hours previous night. He continues to have ongoing mood lability. Last evening he reportedly took his urinal, threw it on the floor, later was apologizing for this. He was lying in bed. Nursing staff was changing him with the Shyam lift. Review of Systems: He complains of pain. Ambulation impaired, in Broda chair. No CV, , pulmonary, eye, ENT system symptoms on review. Mental Status Exam: The patient is reasonably oriented. Speech coherent. Abstraction fair. Computation impaired. Language function intact. Mood and affect still depressed, anxious. No suicidal or homicidal ideation. Laboratory Data: Reviewed. Impression: Major depressive disorder, recurrent, rule out psychotic features. Anxiety disorder unspecified. Plan: Continue current psychotropics. Continue to gradually increase Lamictal till we reach a therapeutic level. Rest unchanged. Assessment: Vital Signs/I&O: Vital Signs Date Time Temp Pulse Resp B/P (MAP) Pulse Ox O2 Delivery O2 Flow Rate FiO2 06/24/21 06:07 97.8 89 22 128/84 (99) 95 06/23/21 15:50 Room Air 06/20/21 06:16 2.0 I & O 06/23/21 06/23/21 06/24/21 15:00 23:00 07:00 Intake Total 480 ml 600 ml Balance 480 ml 600 ml Labs: Laboratory Tests Test 06/23/21 07:24 06/23/21 09:13 06/23/21 11:44 06/23/21 17:13 Glucose (Fingerstick) 151 mg/dL (70-99) H 187 mg/dL (70-99) H 143 mg/dL (70-99) H 164 mg/dL (70-99) H Test 06/23/21 19:47 Glucose (Fingerstick) 135 mg/dL (70-99) H Current Medications: Meds: Laboratory Tests Test 06/23/21 07:24 06/23/21 09:13 06/23/21 11:44 06/23/21 17:13 Glucose (Fingerstick) 151 mg/dL 187 mg/dL 143 mg/dL 164 mg/dL Test 06/23/21 19:47 Glucose (Fingerstick) 135 mg/dL Current Medications Medications (Trade) Dose Ordered Sig/Nicky Route PRN Reason Start Time Stop Time Status Last Admin Dose Admin Acetaminophen (Tylenol) 650 mg PRN Q6HRS PRN PO MILD PAIN / TEMP > 100.3'F 06/19/21 17:00 Multi-Ingredient Ointment (Analgesic [place]) 1 neelima PRN QID PRN TP MUSCLE PAIN 06/19/21 17:00 Al Hydroxide/Mg Hydroxide (Mylanta Plus Xs) 15 ml PRN AFTMEALHC PRN PO DYSPEPSIA 06/19/21 17:00 06/20/21 04:51 Magnesium Hydroxide (Milk Of Magnesia) 2,400 mg PRN QHS PRN PO CONSTIPATION 06/19/21 17:00 Aripiprazole (Abilify) 7.5 mg DAILY PO 06/20/21 09:00 06/23/21 08:55 Aspirin (Aspirin Chewable) 81 mg DAILY PO 06/20/21 09:00 06/23/21 08:54 Clopidogrel Bisulfate (Plavix) 75 mg DAILY PO 06/20/21 09:00 06/23/21 08:54 Duloxetine HCl (Cymbalta) 90 mg DAILY PO 06/20/21 09:00 06/20/21 18:46 DC 06/20/21 09:53 Oxycodone/ Acetaminophen (Percocet 10/325) 1 tab PRN Q6HRS PRN PO PAIN 06/19/21 17:00 06/21/21 00:36 Potassium Chloride (Klor-Con) 30 meq DAILY PO 06/20/21 09:00 06/23/21 08:55 Trazodone HCl (Desyrel) 150 mg HS PO 06/19/21 21:00 06/23/21 19:55 Atorvastatin Calcium (Lipitor) 80 mg QHS PO 06/19/21 21:00 06/23/21 19:48 Carvedilol (Coreg) 37.5 mg BID PO 06/19/21 21:00 06/23/21 19:56 Insulin Human Lispro (HumaLOG) 12 units TIDBFRMEAL SQ 06/20/21 07:30 06/23/21 17:48 Insulin Glargine (Lantus Syringe) 48 unit QHS SQ 06/19/21 21:00 Multivitamins/ Calcium (Thera-M Plus) 1 tab DAILY PO 06/20/21 09:00 06/23/21 08:54 Linagliptin (Tradjenta) 5 mg DAILY PO 06/20/21 09:00 06/23/21 08:54 Olanzapine (ZyPREXA ZYDIS) 2.5 mg PRN Q2HR PRN PO PSYCHOSIS 06/20/21 03:15 06/23/21 00:14 Duloxetine HCl (Cymbalta) 60 mg DAILY PO 06/21/21 09:00 06/23/21 08:55 Bupropion HCl (Wellbutrin Xl) 150 mg DAILY PO 06/21/21 09:00 06/25/21 21:00 06/23/21 08:54 Bupropion HCl (Wellbutrin Xl) 300 mg DAILY PO 06/26/21 09:00 Docusate Sodium (Colace) 100 mg DAILY PO 06/22/21 09:00 06/22/21 00:17 DC Lamotrigine (LaMICtal) 25 mg QHS PO 06/21/21 21:00 06/23/21 23:59 DC 06/23/21 19:55 Lamotrigine (LaMICtal) 50 mg QHS PO 06/24/21 21:00 06/26/21 23:59 Lamotrigine (LaMICtal) 75 mg QHS PO 06/27/21 21:00 06/29/21 23:55 Lamotrigine (LaMICtal) 100 mg QHS PO 06/30/21 21:00 Docusate Sodium (Colace) 100 mg BID PO 06/22/21 09:00 06/23/21 19:55 I have reviewed the current psychotropics carefully including drug interactions. Risk benefit ratio favors no change other than as noted in my dictated progress note. Diagnosis: Problems: (1) Impulse control disorder, unspecified (2) Personality disorder, unspecified (3) Anxiety disorder, unspecified (4) Major depressive disorder, recurrent, severe with psychotic features ESE LEVI MD Jun 24, 2021 06:50
[2021-06-24] MEDS: INSULIN LISPRO 300 UNITS/3 ML VIAL. SQ SCH ×3 (07:30→16:30)
[2021-06-24] MEDS: MULTIVITAMIN with MINERAL TABLET. PO SCH (08:54)
[2021-06-24] MEDS: DOCUSATE SODIUM 100 MG CAPSULE PO SCH ×2 (08:54→20:43)
[2021-06-24] MEDS: ARIPiprazole 5 MG TABLET PO SCH (08:54)
[2021-06-24] MEDS: CARVEDILOL 12.5 MG TABLET PO SCH ×2 (08:55→20:43)
[2021-06-24] MEDS: buPROPion XL 150 MG TAB.ER.24H PO SCH (08:55)
[2021-06-24] MEDS: LINAGLIPTIN 5 MG TABLET PO SCH (08:55)
[2021-06-24] MEDS: DULoxetine HCL 30 MG CAPSULE.DR PO SCH (08:55)
[2021-06-24] MEDS: POTASSIUM CHLORIDE 10 MEQ TABLET.ER. PO SCH (08:55)
[2021-06-24] MEDS: CLOPIDOGREL BISULFATE 75 MG TABLET PO SCH (08:55)
[2021-06-24] MEDS: ASPIRIN CHEWABLE 81 MG TABLET. PO SCH (08:55)
[2021-06-24 16:12] VITALS: BP 145/78
[2021-06-24] MEDS: traZODone 100 MG TABLET. PO SCH (20:44)
[2021-06-24] MEDS: ATORVASTATIN CALCIUM 20 MG TABLET PO SCH (20:44)
[2021-06-24] MEDS: lamoTRIgine 25 MG TABLET. PO SCH (20:46)
[2021-06-24] MEDS: INSULIN GLARGINE SYRINGE. SQ SCH (21:00)
--- NOTE | 2021-06-24 21:07 | PDOC ---
Exam Note: Josef Note: Please also refer to the separate dictated note~for this date of service dictated separately.~Patient seen individually. Discussed the patient with Nursing staff reviewed the chart.~Reviewed interim history and current functioning. Reviewed vital signs,~Labs/ Radiology~and current medications noted below. Continue current treatment with the changes noted in the dictated addendum note Assessment: Vital Signs/I&O: Vital Signs Date Time Temp Pulse Resp B/P (MAP) Pulse Ox O2 Delivery O2 Flow Rate FiO2 06/24/21 20:43 96 145/78 06/24/21 16:12 97.3 18 95 06/23/21 15:50 Room Air 06/20/21 06:16 2.0 I & O 06/23/21 06/23/21 06/24/21 15:00 23:00 07:00 Intake Total 480 ml 600 ml Balance 480 ml 600 ml Labs: Laboratory Tests Test 06/24/21 07:13 06/24/21 12:00 06/24/21 16:58 06/24/21 19:28 Glucose (Fingerstick) 127 mg/dL (70-99) H 168 mg/dL (70-99) H 92 mg/dL (70-99) 174 mg/dL (70-99) H Current Medications: Meds: Laboratory Tests Test 06/24/21 07:13 06/24/21 12:00 06/24/21 16:58 06/24/21 19:28 Glucose (Fingerstick) 127 mg/dL 168 mg/dL 92 mg/dL 174 mg/dL Current Medications Medications (Trade) Dose Ordered Sig/Nicky Route PRN Reason Start Time Stop Time Status Last Admin Dose Admin Acetaminophen (Tylenol) 650 mg PRN Q6HRS PRN PO MILD PAIN / TEMP > 100.3'F 06/19/21 17:00 Multi-Ingredient Ointment (Analgesic [place]) 1 neelima PRN QID PRN TP MUSCLE PAIN 06/19/21 17:00 Al Hydroxide/Mg Hydroxide (Mylanta Plus Xs) 15 ml PRN AFTMEALHC PRN PO DYSPEPSIA 06/19/21 17:00 06/20/21 04:51 Magnesium Hydroxide (Milk Of Magnesia) 2,400 mg PRN QHS PRN PO CONSTIPATION 06/19/21 17:00 Aripiprazole (Abilify) 7.5 mg DAILY PO 06/20/21 09:00 06/24/21 08:54 Aspirin (Aspirin Chewable) 81 mg DAILY PO 06/20/21 09:00 06/24/21 08:55 Clopidogrel Bisulfate (Plavix) 75 mg DAILY PO 06/20/21 09:00 06/24/21 08:55 Duloxetine HCl (Cymbalta) 90 mg DAILY PO 06/20/21 09:00 06/20/21 18:46 DC 06/20/21 09:53 Oxycodone/ Acetaminophen (Percocet 10/325) 1 tab PRN Q6HRS PRN PO PAIN 06/19/21 17:00 06/21/21 00:36 Potassium Chloride (Klor-Con) 30 meq DAILY PO 06/20/21 09:00 06/24/21 08:55 Trazodone HCl (Desyrel) 150 mg HS PO 06/19/21 21:00 06/24/21 20:44 Atorvastatin Calcium (Lipitor) 80 mg QHS PO 06/19/21 21:00 06/24/21 20:44 Carvedilol (Coreg) 37.5 mg BID PO 06/19/21 21:00 06/24/21 20:43 Insulin Human Lispro (HumaLOG) 12 units TIDBFRMEAL SQ 06/20/21 07:30 06/24/21 12:43 Insulin Glargine (Lantus Syringe) 48 unit QHS SQ 06/19/21 21:00 Multivitamins/ Calcium (Thera-M Plus) 1 tab DAILY PO 06/20/21 09:00 06/24/21 08:54 Linagliptin (Tradjenta) 5 mg DAILY PO 06/20/21 09:00 06/24/21 08:55 Olanzapine (ZyPREXA ZYDIS) 2.5 mg PRN Q2HR PRN PO PSYCHOSIS 06/20/21 03:15 06/23/21 00:14 Duloxetine HCl (Cymbalta) 60 mg DAILY PO 06/21/21 09:00 06/24/21 08:55 Bupropion HCl (Wellbutrin Xl) 150 mg DAILY PO 06/21/21 09:00 06/25/21 21:00 06/24/21 08:55 Bupropion HCl (Wellbutrin Xl) 300 mg DAILY PO 06/26/21 09:00 Docusate Sodium (Colace) 100 mg DAILY PO 06/22/21 09:00 06/22/21 00:17 DC Lamotrigine (LaMICtal) 25 mg QHS PO 06/21/21 21:00 06/23/21 23:59 DC 06/23/21 19:55 Lamotrigine (LaMICtal) 50 mg QHS PO 06/24/21 21:00 06/26/21 23:59 06/24/21 20:46 Lamotrigine (LaMICtal) 75 mg QHS PO 06/27/21 21:00 06/29/21 23:55 Lamotrigine (LaMICtal) 100 mg QHS PO 06/30/21 21:00 Docusate Sodium (Colace) 100 mg BID PO 06/22/21 09:00 06/24/21 20:43 Current Medications Medications (Trade) Dose Ordered Sig/Nicky Route PRN Reason Start Time Stop Time Status Last Admin Dose Admin Lamotrigine (LaMICtal) 50 mg QHS PO 06/24/21 21:00 06/26/21 23:59 06/24/21 20:46 I have reviewed the current psychotropics carefully including drug interactions. Risk benefit ratio favors no change other than as noted in my dictated progress note. Diagnosis: Problems: (1) Major depressive disorder, recurrent, severe with psychotic features (2) Impulse control disorder, unspecified (3) Personality disorder, unspecified (4) Anxiety disorder, unspecified ESE LEVI MD Jun 24, 2021 21:07
[2021-06-24] MEDS: oxyCODONE/APAP 10/325 1 TAB TABLET PO PRN (21:21)
[2021-06-25 06:01] VITALS: BP 148/94
[2021-06-25] MEDS: INSULIN LISPRO 300 UNITS/3 ML VIAL. SQ SCH ×3 (07:30→16:30)
--- NOTE | 2021-06-25 07:35 | PDOC ---
Exam Note: Josef Note: This note is a late entry for 06/24/2021 covers elements not covered in my initial note. Subjective: The patient was seen individually in the evening of 06/24/2021 with Froylan MODI, discussed and reviewed the chart. The patient slept 2-3/4 hours previous night. He has been more incontinent at times but less so than before. He has been able to toilet himself a little better with assistance from staff. He is compliant with medications. He still acts helpless per nursing report. Oral intake is poor. Blood sugar has been low. Insulin has been held. We will defer this to Dr. Gandhi/Dr. Hendrickson. Review of Systems: Ambulation impaired, in wheelchair. No CV, , pulmonary, eye, ENT system symptoms on review. He has vague somatic symptoms and pain. Mental Status Exam: The patient is oriented to himself and situation. Speech coherent has some latency. He complains of anxiety. Abstraction fair. Computation impaired. Language function intact. Mood and affect still depressed, anxious. No active suicidal or homicidal ideation. Laboratory Data: Reviewed. Impression: Major depressive disorder, recurrent, rule out psychotic features. Anxiety disorder unspecified. Plan: Continue current psychotropics. We will continue to gradually increase Lamictal as a mood stabilizer. Maintain Cymbalta, trazodone, Abilify, Zyprexa p.r.n., Wellbutrin and adjust further as clinically indicated. Assessment: Vital Signs/I&O: Vital Signs Date Time Temp Pulse Resp B/P (MAP) Pulse Ox O2 Delivery O2 Flow Rate FiO2 06/25/21 06:01 97.5 100 24 148/94 (112) 95 2.0 06/23/21 15:50 Room Air I & O 06/24/21 06/24/21 06/25/21 15:00 23:00 07:00 Intake Total 940 ml 600 ml 360 ml Balance 940 ml 600 ml 360 ml Labs: Laboratory Tests Test 06/24/21 12:00 06/24/21 16:58 06/24/21 19:28 Glucose (Fingerstick) 168 mg/dL (70-99) H 92 mg/dL (70-99) 174 mg/dL (70-99) H Current Medications: Meds: Laboratory Tests Test 06/24/21 12:00 06/24/21 16:58 06/24/21 19:28 Glucose (Fingerstick) 168 mg/dL 92 mg/dL 174 mg/dL Current Medications Medications (Trade) Dose Ordered Sig/Nicky Route PRN Reason Start Time Stop Time Status Last Admin Dose Admin Acetaminophen (Tylenol) 650 mg PRN Q6HRS PRN PO MILD PAIN / TEMP > 100.3'F 06/19/21 17:00 Multi-Ingredient Ointment (Analgesic [place]) 1 neelima PRN QID PRN TP MUSCLE PAIN 06/19/21 17:00 Al Hydroxide/Mg Hydroxide (Mylanta Plus Xs) 15 ml PRN AFTMEALHC PRN PO DYSPEPSIA 06/19/21 17:00 06/20/21 04:51 Magnesium Hydroxide (Milk Of Magnesia) 2,400 mg PRN QHS PRN PO CONSTIPATION 06/19/21 17:00 Aripiprazole (Abilify) 7.5 mg DAILY PO 06/20/21 09:00 06/24/21 08:54 Aspirin (Aspirin Chewable) 81 mg DAILY PO 06/20/21 09:00 06/24/21 08:55 Clopidogrel Bisulfate (Plavix) 75 mg DAILY PO 06/20/21 09:00 06/24/21 08:55 Duloxetine HCl (Cymbalta) 90 mg DAILY PO 06/20/21 09:00 06/20/21 18:46 DC 06/20/21 09:53 Oxycodone/ Acetaminophen (Percocet 10/325) 1 tab PRN Q6HRS PRN PO PAIN 06/19/21 17:00 06/24/21 21:21 Potassium Chloride (Klor-Con) 30 meq DAILY PO 06/20/21 09:00 06/24/21 08:55 Trazodone HCl (Desyrel) 150 mg HS PO 06/19/21 21:00 06/24/21 20:44 Atorvastatin Calcium (Lipitor) 80 mg QHS PO 06/19/21 21:00 06/24/21 20:44 Carvedilol (Coreg) 37.5 mg BID PO 06/19/21 21:00 06/24/21 20:43 Insulin Human Lispro (HumaLOG) 12 units TIDBFRMEAL SQ 06/20/21 07:30 06/24/21 12:43 Insulin Glargine (Lantus Syringe) 48 unit QHS SQ 06/19/21 21:00 Multivitamins/ Calcium (Thera-M Plus) 1 tab DAILY PO 06/20/21 09:00 06/24/21 08:54 Linagliptin (Tradjenta) 5 mg DAILY PO 06/20/21 09:00 06/24/21 08:55 Olanzapine (ZyPREXA ZYDIS) 2.5 mg PRN Q2HR PRN PO PSYCHOSIS 06/20/21 03:15 06/23/21 00:14 Duloxetine HCl (Cymbalta) 60 mg DAILY PO 06/21/21 09:00 06/24/21 08:55 Bupropion HCl (Wellbutrin Xl) 150 mg DAILY PO 06/21/21 09:00 06/25/21 21:00 06/24/21 08:55 Bupropion HCl (Wellbutrin Xl) 300 mg DAILY PO 06/26/21 09:00 Docusate Sodium (Colace) 100 mg DAILY PO 06/22/21 09:00 06/22/21 00:17 DC Lamotrigine (LaMICtal) 25 mg QHS PO 06/21/21 21:00 06/23/21 23:59 DC 06/23/21 19:55 Lamotrigine (LaMICtal) 50 mg QHS PO 06/24/21 21:00 06/26/21 23:59 06/24/21 20:46 Lamotrigine (LaMICtal) 75 mg QHS PO 06/27/21 21:00 06/29/21 23:55 Lamotrigine (LaMICtal) 100 mg QHS PO 06/30/21 21:00 Docusate Sodium (Colace) 100 mg BID PO 06/22/21 09:00 06/24/21 20:43 Current Medications Medications (Trade) Dose Ordered Sig/Nicky Route PRN Reason Start Time Stop Time Status Last Admin Dose Admin Lamotrigine (LaMICtal) 50 mg QHS PO 06/24/21 21:00 06/26/21 23:59 06/24/21 20:46 I have reviewed the current psychotropics carefully including drug interactions. Risk benefit ratio favors no change other than as noted in my dictated progress note. Diagnosis: Problems: (1) Impulse control disorder, unspecified (2) Personality disorder, unspecified (3) Anxiety disorder, unspecified (4) Major depressive disorder, recurrent (5) Major depressive disorder, recurrent, severe with psychotic features ESE LEVI MD Jun 25, 2021 07:35
[2021-06-25] MEDS: ARIPiprazole 5 MG TABLET PO SCH (09:55)
[2021-06-25] MEDS: DULoxetine HCL 30 MG CAPSULE.DR PO SCH (09:55)
[2021-06-25] MEDS: buPROPion XL 150 MG TAB.ER.24H PO SCH (09:55)
[2021-06-25] MEDS: LINAGLIPTIN 5 MG TABLET PO SCH (09:55)
[2021-06-25] MEDS: DOCUSATE SODIUM 100 MG CAPSULE PO SCH ×2 (09:55→20:18)
[2021-06-25] MEDS: CARVEDILOL 12.5 MG TABLET PO SCH ×2 (09:55→20:19)
[2021-06-25] MEDS: POTASSIUM CHLORIDE 10 MEQ TABLET.ER. PO SCH (09:56)
[2021-06-25] MEDS: ASPIRIN CHEWABLE 81 MG TABLET. PO SCH (09:56)
[2021-06-25] MEDS: MULTIVITAMIN with MINERAL TABLET. PO SCH (09:56)
[2021-06-25] MEDS: CLOPIDOGREL BISULFATE 75 MG TABLET PO SCH (09:56)
[2021-06-25 16:01] VITALS: BP 142/95
[2021-06-25] MEDS: traZODone 100 MG TABLET. PO SCH (20:18)
[2021-06-25] MEDS: ATORVASTATIN CALCIUM 20 MG TABLET PO SCH (20:18)
[2021-06-25] MEDS: oxyCODONE/APAP 10/325 1 TAB TABLET PO PRN (20:19)
[2021-06-25] MEDS: NYSTATIN TOPICAL POWDER 15GM BOTTLE. TP SCH (20:19)
[2021-06-25] MEDS: lamoTRIgine 25 MG TABLET. PO SCH (20:19)
[2021-06-25] MEDS: INSULIN GLARGINE SYRINGE. SQ SCH (21:00)
--- NOTE | 2021-06-25 21:02 | PDOC ---
Exam Note: Josef Note: Please also refer to the separate dictated note~for this date of service dictated separately.~Patient seen individually. Discussed the patient with Nursing staff reviewed the chart.~Reviewed interim history and current functioning. Reviewed vital signs,~Labs/ Radiology~and current medications noted below. Continue current treatment with the changes noted in the dictated addendum note Assessment: Vital Signs/I&O: Vital Signs Date Time Temp Pulse Resp B/P (MAP) Pulse Ox O2 Delivery O2 Flow Rate FiO2 06/25/21 20:19 88 142/95 06/25/21 16:01 97.4 20 97 Room Air 06/25/21 06:01 2.0 I & O 06/24/21 06/24/21 06/25/21 15:00 23:00 07:00 Intake Total 940 ml 600 ml 360 ml Balance 940 ml 600 ml 360 ml Labs: Laboratory Tests Test 06/25/21 06:30 06/25/21 07:39 06/25/21 11:42 06/25/21 17:00 SARS-CoV-2 (PCR) Not detected (NOT DETECTD) Glucose (Fingerstick) 141 mg/dL (70-99) H 152 mg/dL (70-99) H 141 mg/dL (70-99) H Test 06/25/21 19:08 Glucose (Fingerstick) 173 mg/dL (70-99) H Current Medications: Meds: Laboratory Tests Test 06/25/21 06:30 06/25/21 07:39 06/25/21 11:42 06/25/21 17:00 Coronavirus (COVID-19)(PCR) Not detected Glucose (Fingerstick) 141 mg/dL 152 mg/dL 141 mg/dL Test 06/25/21 19:08 Glucose (Fingerstick) 173 mg/dL Current Medications Medications (Trade) Dose Ordered Sig/Nicky Route PRN Reason Start Time Stop Time Status Last Admin Dose Admin Acetaminophen (Tylenol) 650 mg PRN Q6HRS PRN PO MILD PAIN / TEMP > 100.3'F 06/19/21 17:00 Multi-Ingredient Ointment (Analgesic [place]) 1 neelima PRN QID PRN TP MUSCLE PAIN 06/19/21 17:00 Al Hydroxide/Mg Hydroxide (Mylanta Plus Xs) 15 ml PRN AFTMEALHC PRN PO DYSPEPSIA 06/19/21 17:00 06/20/21 04:51 Magnesium Hydroxide (Milk Of Magnesia) 2,400 mg PRN QHS PRN PO CONSTIPATION 06/19/21 17:00 Aripiprazole (Abilify) 7.5 mg DAILY PO 06/20/21 09:00 06/25/21 09:55 Aspirin (Aspirin Chewable) 81 mg DAILY PO 06/20/21 09:00 06/25/21 09:56 Clopidogrel Bisulfate (Plavix) 75 mg DAILY PO 06/20/21 09:00 06/25/21 09:56 Duloxetine HCl (Cymbalta) 90 mg DAILY PO 06/20/21 09:00 06/20/21 18:46 DC 06/20/21 09:53 Oxycodone/ Acetaminophen (Percocet 10/325) 1 tab PRN Q6HRS PRN PO PAIN 06/19/21 17:00 06/25/21 20:19 Potassium Chloride (Klor-Con) 30 meq DAILY PO 06/20/21 09:00 06/25/21 09:56 Trazodone HCl (Desyrel) 150 mg HS PO 06/19/21 21:00 06/25/21 20:18 Atorvastatin Calcium (Lipitor) 80 mg QHS PO 06/19/21 21:00 06/25/21 20:18 Carvedilol (Coreg) 37.5 mg BID PO 06/19/21 21:00 06/25/21 20:19 Insulin Human Lispro (HumaLOG) 12 units TIDBFRMEAL SQ 06/20/21 07:30 06/24/21 12:43 Insulin Glargine (Lantus Syringe) 48 unit QHS SQ 06/19/21 21:00 Multivitamins/ Calcium (Thera-M Plus) 1 tab DAILY PO 06/20/21 09:00 06/25/21 09:56 Linagliptin (Tradjenta) 5 mg DAILY PO 06/20/21 09:00 06/25/21 09:55 Olanzapine (ZyPREXA ZYDIS) 2.5 mg PRN Q2HR PRN PO PSYCHOSIS 06/20/21 03:15 06/23/21 00:14 Duloxetine HCl (Cymbalta) 60 mg DAILY PO 06/21/21 09:00 06/25/21 09:55 Bupropion HCl (Wellbutrin Xl) 150 mg DAILY PO 06/21/21 09:00 06/25/21 21:00 DC 06/25/21 09:55 Bupropion HCl (Wellbutrin Xl) 300 mg DAILY PO 06/26/21 09:00 Docusate Sodium (Colace) 100 mg DAILY PO 06/22/21 09:00 06/22/21 00:17 DC Lamotrigine (LaMICtal) 25 mg QHS PO 06/21/21 21:00 06/23/21 23:59 DC 06/23/21 19:55 Lamotrigine (LaMICtal) 50 mg QHS PO 06/24/21 21:00 06/26/21 23:59 06/25/21 20:19 Lamotrigine (LaMICtal) 75 mg QHS PO 06/27/21 21:00 06/29/21 23:55 Lamotrigine (LaMICtal) 100 mg QHS PO 06/30/21 21:00 Docusate Sodium (Colace) 100 mg BID PO 06/22/21 09:00 06/25/21 20:18 Nystatin (Nystop) 1 neelima BID TP 06/25/21 21:00 06/25/21 20:19 Current Medications Medications (Trade) Dose Ordered Sig/Nicky Route PRN Reason Start Time Stop Time Status Last Admin Dose Admin Nystatin (Nystop) 1 neelima BID TP 06/25/21 21:00 06/25/21 20:19 I have reviewed the current psychotropics carefully including drug interactions. Risk benefit ratio favors no change other than as noted in my dictated progress note. Diagnosis: Problems: (1) Impulse control disorder, unspecified (2) Personality disorder, unspecified (3) Anxiety disorder, unspecified (4) Major depressive disorder, recurrent, severe with psychotic features ESE ELVI MD Jun 25, 2021 21:02
[2021-06-26 05:52] VITALS: BP 143/91
[2021-06-26] MEDS: INSULIN LISPRO 300 UNITS/3 ML VIAL. SQ SCH ×3 (07:30→16:30)
[2021-06-26 07:32] LABS: BASO % 0 % (0-3); EOS # 0.2 x10^3/uL (0.0-0.7); EOS % 2 % (0-3); HEMATOCRIT 34.1 % (39.0-53.0); HEMOGLOBIN 11.1 g/dL (13.0-17.5); LYMPH # 0.6 x10^3/uL (1.0-4.8); LYMPH % 7 % (24-48); MEAN CORPUSCULAR HEMOGLOBIN 31 pg (25-35); MEAN CORPUSCULAR HGB CONC 33 g/dL (31-37); MEAN CORPUSCULAR VOLUME 94 fL (79-100); MONO # 0.9 x10^3/uL (0.0-1.1); MONO % 10 % (0-9); NEUT # 6.9 x10^3uL (1.8-7.7); NEUT % 81 % (31-73); PLATELET COUNT 246 x10^3/uL (140-400); RED BLOOD COUNT 3.62 x10^6/uL (4.30-5.70); RED CELL DISTRIBUTION WIDTH 16.7 % (11.5-14.5); WHITE BLOOD COUNT 8.6 x10^3/uL (4.0-11.0)
--- NOTE | 2021-06-26 08:01 | PDOC ---
Exam Note: Josef Note: This note is a late entry for 06/25/2021 covers elements not covered in my initial note. Subjective: The patient was seen individually in the evening of 06/25/2021 with Susi MODI, discussed and reviewed the chart. The patient slept 7-3/4 hours previous night. He has been yelling less than before, did not hit his head with his hand today though he continues to be incontinent. Diet has been changed to pureed. I met with him at some length in his room. Review of Systems: Ambulation impaired, in wheelchair. He complains of vague pain and some chest tightness that he attributes to anxiety. No CV, , eye, ENT system symptoms on review. Mental Status Exam: The patient is reasonably oriented. Speech coherent has some latency. Abstraction fair. Computation impaired. Language function intact. Mood and affect lability is improved, still depressed, anxious. No suicidal ideation. Laboratory Data: Reviewed. Impression: Major depressive disorder, recurrent, rule out psychotic features. Anxiety disorder unspecified. Plan: Continue current psychotropics. Continue to increase Lamictal till we reach approximately 150 mg a day. Maintain Cymbalta, Abilify, Zyprexa p.r.n., Wellbutrin and adjust further as clinically indicated. Assessment: Vital Signs/I&O: Vital Signs Date Time Temp Pulse Resp B/P (MAP) Pulse Ox O2 Delivery O2 Flow Rate FiO2 06/26/21 05:52 97.9 95 24 143/91 (108) 94 06/25/21 16:01 Room Air 06/25/21 06:01 2.0 I & O 06/25/21 06/25/21 06/26/21 15:00 23:00 07:00 Intake Total 240 ml 600 ml Balance 240 ml 600 ml Labs: Laboratory Tests Test 06/25/21 11:42 06/25/21 17:00 06/25/21 19:08 06/26/21 06:35 Glucose (Fingerstick) 152 mg/dL (70-99) H 141 mg/dL (70-99) H 173 mg/dL (70-99) H White Blood Count 8.6 x10^3/uL (4.0-11.0) Red Blood Count 3.62 x10^6/uL (4.30-5.70) L Hemoglobin 11.1 g/dL (13.0-17.5) L Hematocrit 34.1 % (39.0-53.0) L Mean Corpuscular Volume 94 fL (79-100) Mean Corpuscular Hemoglobin 31 pg (25-35) Mean Corpuscular Hemoglobin Concent 33 g/dL (31-37) Red Cell Distribution Width 16.7 % (11.5-14.5) H Platelet Count 246 x10^3/uL (140-400) Neutrophils (%) (Auto) 81 % (31-73) H Lymphocytes (%) (Auto) 7 % (24-48) L Monocytes (%) (Auto) 10 % (0-9) H Eosinophils (%) (Auto) 2 % (0-3) Basophils (%) (Auto) 0 % (0-3) Neutrophils # (Auto) 6.9 x10^3uL (1.8-7.7) Lymphocytes # (Auto) 0.6 x10^3/uL (1.0-4.8) L Monocytes # (Auto) 0.9 x10^3/uL (0.0-1.1) Eosinophils # (Auto) 0.2 x10^3/uL (0.0-0.7) Basophils # (Auto) 0.0 x10^3/uL (0.0-0.2) Current Medications: Meds: Laboratory Tests Test 06/25/21 11:42 06/25/21 17:00 06/25/21 19:08 06/26/21 06:35 Glucose (Fingerstick) 152 mg/dL 141 mg/dL 173 mg/dL White Blood Count 8.6 x10^3/uL Red Blood Count 3.62 x10^6/uL Hemoglobin 11.1 g/dL Hematocrit 34.1 % Mean Corpuscular Volume 94 fL Mean Corpuscular Hemoglobin 31 pg Mean Corpuscular Hemoglobin Concent 33 g/dL Red Cell Distribution Width 16.7 % Platelet Count 246 x10^3/uL Neutrophils (%) (Auto) 81 % Lymphocytes (%) (Auto) 7 % Monocytes (%) (Auto) 10 % Eosinophils (%) (Auto) 2 % Basophils (%) (Auto) 0 % Neutrophils # (Auto) 6.9 x10^3uL Lymphocytes # (Auto) 0.6 x10^3/uL Monocytes # (Auto) 0.9 x10^3/uL Eosinophils # (Auto) 0.2 x10^3/uL Basophils # (Auto) 0.0 x10^3/uL Current Medications Medications (Trade) Dose Ordered Sig/Nicky Route PRN Reason Start Time Stop Time Status Last Admin Dose Admin Acetaminophen (Tylenol) 650 mg PRN Q6HRS PRN PO MILD PAIN / TEMP > 100.3'F 06/19/21 17:00 Multi-Ingredient Ointment (Analgesic [place]) 1 neelima PRN QID PRN TP MUSCLE PAIN 06/19/21 17:00 Al Hydroxide/Mg Hydroxide (Mylanta Plus Xs) 15 ml PRN AFTMEALHC PRN PO DYSPEPSIA 06/19/21 17:00 06/20/21 04:51 Magnesium Hydroxide (Milk Of Magnesia) 2,400 mg PRN QHS PRN PO CONSTIPATION 06/19/21 17:00 Aripiprazole (Abilify) 7.5 mg DAILY PO 06/20/21 09:00 06/25/21 09:55 Aspirin (Aspirin Chewable) 81 mg DAILY PO 06/20/21 09:00 06/25/21 09:56 Clopidogrel Bisulfate (Plavix) 75 mg DAILY PO 06/20/21 09:00 06/25/21 09:56 Duloxetine HCl (Cymbalta) 90 mg DAILY PO 06/20/21 09:00 06/20/21 18:46 DC 06/20/21 09:53 Oxycodone/ Acetaminophen (Percocet 10/325) 1 tab PRN Q6HRS PRN PO PAIN 06/19/21 17:00 06/25/21 20:19 Potassium Chloride (Klor-Con) 30 meq DAILY PO 06/20/21 09:00 06/25/21 09:56 Trazodone HCl (Desyrel) 150 mg HS PO 06/19/21 21:00 06/25/21 20:18 Atorvastatin Calcium (Lipitor) 80 mg QHS PO 06/19/21 21:00 06/25/21 20:18 Carvedilol (Coreg) 37.5 mg BID PO 06/19/21 21:00 06/25/21 20:19 Insulin Human Lispro (HumaLOG) 12 units TIDBFRMEAL SQ 06/20/21 07:30 06/24/21 12:43 Insulin Glargine (Lantus Syringe) 48 unit QHS SQ 06/19/21 21:00 Multivitamins/ Calcium (Thera-M Plus) 1 tab DAILY PO 06/20/21 09:00 06/25/21 09:56 Linagliptin (Tradjenta) 5 mg DAILY PO 06/20/21 09:00 06/25/21 09:55 Olanzapine (ZyPREXA ZYDIS) 2.5 mg PRN Q2HR PRN PO PSYCHOSIS 06/20/21 03:15 06/26/21 02:14 Duloxetine HCl (Cymbalta) 60 mg DAILY PO 06/21/21 09:00 06/25/21 09:55 Bupropion HCl (Wellbutrin Xl) 150 mg DAILY PO 06/21/21 09:00 06/25/21 21:00 DC 06/25/21 09:55 Bupropion HCl (Wellbutrin Xl) 300 mg DAILY PO 06/26/21 09:00 Docusate Sodium (Colace) 100 mg DAILY PO 06/22/21 09:00 06/22/21 00:17 DC Lamotrigine (LaMICtal) 25 mg QHS PO 06/21/21 21:00 06/23/21 23:59 DC 06/23/21 19:55 Lamotrigine (LaMICtal) 50 mg QHS PO 06/24/21 21:00 06/26/21 23:59 06/25/21 20:19 Lamotrigine (LaMICtal) 75 mg QHS PO 06/27/21 21:00 06/29/21 23:55 Lamotrigine (LaMICtal) 100 mg QHS PO 06/30/21 21:00 Docusate Sodium (Colace) 100 mg BID PO 06/22/21 09:00 06/25/21 20:18 Nystatin (Nystop) 1 neelima BID TP 06/25/21 21:00 06/25/21 20:19 Current Medications Medications (Trade) Dose Ordered Sig/Nicky Route PRN Reason Start Time Stop Time Status Last Admin Dose Admin Nystatin (Nystop) 1 neelima BID TP 06/25/21 21:00 06/25/21 20:19 I have reviewed the current psychotropics carefully including drug interactions. Risk benefit ratio favors no change other than as noted in my dictated progress note. Diagnosis: Problems: (1) Major depressive disorder, recurrent, severe with psychotic features (2) Impulse control disorder, unspecified (3) Personality disorder, unspecified (4) Anxiety disorder, unspecified ESE LEVI MD Jun 26, 2021 08:01
[2021-06-26] MEDS: NYSTATIN TOPICAL POWDER 15GM BOTTLE. TP SCH ×2 (09:00→20:41)
[2021-06-26] MEDS: POTASSIUM CHLORIDE 10 MEQ TABLET.ER. PO SCH (09:06)
[2021-06-26] MEDS: DOCUSATE SODIUM 100 MG CAPSULE PO SCH ×2 (09:06→20:40)
[2021-06-26] MEDS: ARIPiprazole 5 MG TABLET PO SCH (09:06)
[2021-06-26] MEDS: MULTIVITAMIN with MINERAL TABLET. PO SCH (09:06)
[2021-06-26] MEDS: buPROPion XL 300 MG TAB.ER.24H. PO SCH (09:06)
[2021-06-26] MEDS: LINAGLIPTIN 5 MG TABLET PO SCH (09:07)
[2021-06-26] MEDS: DULoxetine HCL 30 MG CAPSULE.DR PO SCH (09:07)
[2021-06-26] MEDS: ASPIRIN CHEWABLE 81 MG TABLET. PO SCH (09:07)
[2021-06-26] MEDS: CARVEDILOL 12.5 MG TABLET PO SCH ×2 (09:07→20:40)
[2021-06-26] MEDS: CLOPIDOGREL BISULFATE 75 MG TABLET PO SCH (09:07)
[2021-06-26 09:42] LABS: CREATININE 0.9 mg/dL (0.7-1.3); GFR 84.2
[2021-06-26 10:08] LABS: ALBUMIN 2.5 g/dL (3.4-5.0); ALBUMIN/GLOBULIN RATIO 0.6 (1.0-1.7); CALCIUM 8.5 mg/dL (8.5-10.1); POTASSIUM 4.5 mmol/L (3.5-5.1); TOTAL BILIRUBIN 0.8 mg/dL (0.2-1.0); TOTAL PROTEIN 6.5 g/dL (6.4-8.2)
--- NOTE | 2021-06-26 13:03 | TX PLAN ---
Interdisciplinary Tx Plan Admission Information Jun 19, 2021 at 16:45 Legal Status (on Admission): Voluntary DPOA/Guardian Name: SonSharri Maravilla (not enacted at this time as pt is a self sign) Contact Other Contact Name: Luanne Boyle Contact Verified Code Status: Full Code Allergies: Coded Allergies: No Known Drug Allergies (Unverified , 04/25/21) Diagnoses Primary Diagnosis: 1) Major depressive disorder, recurrent, severe with psychotic features (2) Impulse control disorder, unspecified (3) Personality disorder, unspecified (4) Anxiety disorder, unspecified Problem in Patient's Words: I am terribly depressed and anxious. Additional Admission Comments: Per intake pt is depressed, anxious, not eating to tank blood sugar to kill himself, put himself on the floor seven times over a weekend, verbally aggressive toward staff, SI, and texted his son expressing plan to end his life. Problems Active Problems: Pt denies SI, but continues to demonstrate anxiety and depression and has a lack of interest. Pt has been banging his head with his hand. Inactive Problems: Pt has not put himself on the floor. Pt Strengths/Limitations Ability for [place]: Poor Cognitive Functioning/Ability: Good Communication Skills/Ability: Good Financial Resources: Good Insight/Judgement: Poor Intellectual Ability: Good Physical Health: Poor Social Skills: Fair Stability in Family: Fair Stability in School/Work: Fair Verbal Skills: Good Discharge Criteria Discharge Criteria: Able meet basic life need, No need for close observ., Adequate arrangements @DC, Adequate self-care, Verbal commit med comply, Improved behavior, Improved mood/thought Preliminary Discharge Plan Preliminary DC Plan: Current Living Arrange. Other Arrangements: Pt facility is looking for an alternate placement, but will accept him back Special Precautions Fall Risk: High Initial D/C Plan Pt to return to [facility]. Facility is looking for an alternate placement, but will accept him back at time of discharge. Identified Discharge Needs: None at this time. Currently Utilized Resources Currently Utilized Resources/P: PCP-Dr. Daisy Sanchez Psychiatrist-Dr. Ashley Pichardo NP DPOA (not currently enacted)-Hema Maravilla Referrals Community Resources: None at this time. Identified Problems/Hx/Goals Objectives/Short-Term Goals Short Term Goals in Patient's: Need help feeling less depressed and anxious. Interventions/Frequency Staff Interventions/Frequency&: Psychiatry to assess pt three times per week for medication management. Nursing to assess behaviors, monitor medications, and complete 15 minute checks daily. Social work to see pt at least two times weekly to aid in return to placement. Activities to encourage pt to participate in group activities daily. 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 Education: Graduated from [employer] in [place], [place]. Pt reports having taken some classes at the [facility]. Community Follow-up PCP Psychiatrist Community Provider/Family Inpu: Pt is a self sign and participated in the development of his own treatment plan. Treatment Plan Explained Patient/Lead Recreation Assistant had this treatment plan explained to him/her as indicated by the signature below and has been given the opportunity to ask questions and make suggestions: Date: Patient/Lead Recreation Assistant Signature: EVE CORONA Jun 26, 2021 13:03
--- NOTE | 2021-06-26 13:10 | TX PLAN ---
Interdisciplinary Tx Plan Admission Information Jun 19, 2021 at 16:45 Legal Status (on Admission): Voluntary DPOA/Guardian Name: SonSharri Maravilla (not enacted at this time as pt is a self sign) Contact Other Contact Name: Luanne Boyle Contact Verified Code Status: Full Code Allergies: Coded Allergies: No Known Drug Allergies (Unverified , 04/25/21) Diagnoses Primary Diagnosis: 1) Major depressive disorder, recurrent, severe with psychotic features (2) Impulse control disorder, unspecified (3) Personality disorder, unspecified (4) Anxiety disorder, unspecified Problem in Patient's Words: I am terribly depressed and anxious. Additional Admission Comments: Per intake pt is depressed, anxious, not eating to tank blood sugar to kill himself, put himself on the floor seven times over a weekend, verbally aggressive toward staff, SI, and texted his son expressing plan to end his life. Problems Active Problems: Pt denies SI, but continues to demonstrate anxiety and depression and has a lack of interest. Pt has been banging his head with his hand. Inactive Problems: Pt has not put himself on the floor. Pt Strengths/Limitations Ability for [place]: Poor Cognitive Functioning/Ability: Good Communication Skills/Ability: Good Financial Resources: Good Insight/Judgement: Poor Intellectual Ability: Good Physical Health: Poor Social Skills: Fair Stability in Family: Fair Stability in School/Work: Fair Verbal Skills: Good Discharge Criteria Discharge Criteria: Able meet basic life need, No need for close observ., Adequate arrangements @DC, Adequate self-care, Verbal commit med comply, Improved behavior, Improved mood/thought Preliminary Discharge Plan Preliminary DC Plan: Current Living Arrange. Other Arrangements: Pt facility is looking for an alternate placement, but will accept him back Special Precautions Fall Risk: High Initial D/C Plan Pt to return to [facility]. Facility is looking for an alternate placement, but will accept him back at time of discharge. Identified Discharge Needs: None at this time. Currently Utilized Resources Currently Utilized Resources/P: PCP-Dr. Daisy Sanchez Psychiatrist-Dr. Ashley Pichardo NP DPOA (not currently enacted)-Hema Maravilla Referrals Community Resources: None at this time. Identified Problems/Hx/Goals Objectives/Short-Term Goals Short Term Goals in Patient's: Need help feeling less depressed and anxious. Interventions/Frequency Staff Interventions/Frequency&: Psychiatry to assess pt three times per week for medication management. Nursing to assess behaviors, monitor medications, and complete 15 minute checks daily. Social work to see pt at least two times weekly to aid in return to placement. Activities to encourage pt to participate in group activities daily. 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 Education: Graduated from [employer] in [place], [place]. Pt reports having taken some classes at the [facility]. Community Follow-up PCP Psychiatrist Community Provider/Family Inpu: Pt is a self sign and participated in the development of his own treatment plan. Treatment Plan Explained Patient/Supervisor Paper Machine had this treatment plan explained to him/her as indicated by the signature below and has been given the opportunity to ask questions and make suggestions: Date: Patient/Supervisor Paper Machine Signature: Status Update Update Pt is reportedly eating 75% of his meals and averaging 4.5 hours of sleep. Last night pt only received 1.25 hours of sleep. Pt is on a pureed diet. PT/OT has signed off on him as he is unwilling to complete the tasks they have asked him to do. Pt has had some head banging with his hand; this appears to be less than at time of admission. Pt engages in conversation with staff and seems to be interested in what staff have to offer for him, but then does not follow through with suggestions. Additionally pt acts helpless and staff feel that he has more capabilities than he demonstrates. Pt has worked 1:1 with [facility] and accepted magazines. Pt plan for discharge is to return to [facility] at time of discharge unless alternative placement if found for him prior to that. EVE CORONA Jun 26, 2021 13:10
[2021-06-26 15:51] VITALS: BP 123/81
[2021-06-26] MEDS: lamoTRIgine 25 MG TABLET. PO SCH (20:39)
[2021-06-26] MEDS: ATORVASTATIN CALCIUM 20 MG TABLET PO SCH (20:40)
[2021-06-26] MEDS: traZODone 100 MG TABLET. PO SCH (20:40)
[2021-06-26] MEDS: INSULIN GLARGINE SYRINGE. SQ SCH (20:42)
--- NOTE | 2021-06-26 21:04 | PDOC ---
Exam Note: Josef Note: Please also refer to the separate dictated note~for this date of service dictated separately.~Patient seen individually. Discussed the patient with Nursing staff reviewed the chart.~Reviewed interim history and current functioning. Reviewed vital signs,~Labs/ Radiology~and current medications noted below. Continue current treatment with the changes noted in the dictated addendum note Assessment: Vital Signs/I&O: Vital Signs Date Time Temp Pulse Resp B/P (MAP) Pulse Ox O2 Delivery O2 Flow Rate FiO2 06/26/21 20:40 101 123/81 06/26/21 15:51 97.6 20 97 Room Air 06/25/21 06:01 2.0 I & O 06/25/21 06/25/21 06/26/21 15:00 23:00 07:00 Intake Total 240 ml 600 ml Balance 240 ml 600 ml Labs: Laboratory Tests Test 06/26/21 06:35 06/26/21 08:03 06/26/21 11:55 06/26/21 17:02 White Blood Count 8.6 x10^3/uL (4.0-11.0) Red Blood Count 3.62 x10^6/uL (4.30-5.70) L Hemoglobin 11.1 g/dL (13.0-17.5) L Hematocrit 34.1 % (39.0-53.0) L Mean Corpuscular Volume 94 fL (79-100) Mean Corpuscular Hemoglobin 31 pg (25-35) Mean Corpuscular Hemoglobin Concent 33 g/dL (31-37) Red Cell Distribution Width 16.7 % (11.5-14.5) H Platelet Count 246 x10^3/uL (140-400) Neutrophils (%) (Auto) 81 % (31-73) H Lymphocytes (%) (Auto) 7 % (24-48) L Monocytes (%) (Auto) 10 % (0-9) H Eosinophils (%) (Auto) 2 % (0-3) Basophils (%) (Auto) 0 % (0-3) Neutrophils # (Auto) 6.9 x10^3uL (1.8-7.7) Lymphocytes # (Auto) 0.6 x10^3/uL (1.0-4.8) L Monocytes # (Auto) 0.9 x10^3/uL (0.0-1.1) Eosinophils # (Auto) 0.2 x10^3/uL (0.0-0.7) Basophils # (Auto) 0.0 x10^3/uL (0.0-0.2) Sodium Level 138 mmol/L (136-145) Potassium Level 4.5 mmol/L (3.5-5.1) Chloride Level 104 mmol/L (98-107) Carbon Dioxide Level 24 mmol/L (21-32) Anion Gap 10 (6-14) Blood Urea Nitrogen 24 mg/dL (8-26) Creatinine 0.9 mg/dL (0.7-1.3) Estimated GFR (Cockcroft-Gault) 84.2 BUN/Creatinine Ratio 27 (6-20) H Glucose Level 150 mg/dL (70-99) H Calcium Level 8.5 mg/dL (8.5-10.1) Total Bilirubin 0.8 mg/dL (0.2-1.0) Aspartate Amino Transferase (AST) 21 U/L (15-37) Alanine Aminotransferase (ALT) 27 U/L (16-63) Alkaline Phosphatase 82 U/L (46-116) Total Protein 6.5 g/dL (6.4-8.2) Albumin 2.5 g/dL (3.4-5.0) L Albumin/Globulin Ratio 0.6 (1.0-1.7) L Glucose (Fingerstick) 156 mg/dL (70-99) H 187 mg/dL (70-99) H 181 mg/dL (70-99) H Test 06/26/21 19:09 Glucose (Fingerstick) 156 mg/dL (70-99) H Current Medications: Meds: Laboratory Tests Test 06/26/21 06:35 06/26/21 08:03 06/26/21 11:55 06/26/21 17:02 White Blood Count 8.6 x10^3/uL Red Blood Count 3.62 x10^6/uL Hemoglobin 11.1 g/dL Hematocrit 34.1 % Mean Corpuscular Volume 94 fL Mean Corpuscular Hemoglobin 31 pg Mean Corpuscular Hemoglobin Concent 33 g/dL Red Cell Distribution Width 16.7 % Platelet Count 246 x10^3/uL Neutrophils (%) (Auto) 81 % Lymphocytes (%) (Auto) 7 % Monocytes (%) (Auto) 10 % Eosinophils (%) (Auto) 2 % Basophils (%) (Auto) 0 % Neutrophils # (Auto) 6.9 x10^3uL Lymphocytes # (Auto) 0.6 x10^3/uL Monocytes # (Auto) 0.9 x10^3/uL Eosinophils # (Auto) 0.2 x10^3/uL Basophils # (Auto) 0.0 x10^3/uL Sodium Level 138 mmol/L Potassium Level 4.5 mmol/L Chloride Level 104 mmol/L Carbon Dioxide Level 24 mmol/L Anion Gap 10 Blood Urea Nitrogen 24 mg/dL Creatinine 0.9 mg/dL Estimated GFR (Cockcroft-Gault) 84.2 BUN/Creatinine Ratio 27 Glucose Level 150 mg/dL Calcium Level 8.5 mg/dL Total Bilirubin 0.8 mg/dL Aspartate Amino Transf (AST/SGOT) 21 U/L Alanine Aminotransferase (ALT/SGPT) 27 U/L Alkaline Phosphatase 82 U/L Total Protein 6.5 g/dL Albumin 2.5 g/dL Albumin/Globulin Ratio 0.6 Glucose (Fingerstick) 156 mg/dL 187 mg/dL 181 mg/dL Test 06/26/21 19:09 Glucose (Fingerstick) 156 mg/dL Current Medications Medications (Trade) Dose Ordered Sig/Nicky Route PRN Reason Start Time Stop Time Status Last Admin Dose Admin Acetaminophen (Tylenol) 650 mg PRN Q6HRS PRN PO MILD PAIN / TEMP > 100.3'F 06/19/21 17:00 Multi-Ingredient Ointment (Analgesic [place]) 1 neelima PRN QID PRN TP MUSCLE PAIN 06/19/21 17:00 Al Hydroxide/Mg Hydroxide (Mylanta Plus Xs) 15 ml PRN AFTMEALHC PRN PO DYSPEPSIA 06/19/21 17:00 06/20/21 04:51 Magnesium Hydroxide (Milk Of Magnesia) 2,400 mg PRN QHS PRN PO CONSTIPATION 06/19/21 17:00 Aripiprazole (Abilify) 7.5 mg DAILY PO 06/20/21 09:00 06/26/21 09:06 Aspirin (Aspirin Chewable) 81 mg DAILY PO 06/20/21 09:00 06/26/21 09:07 Clopidogrel Bisulfate (Plavix) 75 mg DAILY PO 06/20/21 09:00 06/26/21 09:07 Duloxetine HCl (Cymbalta) 90 mg DAILY PO 06/20/21 09:00 06/20/21 18:46 DC 06/20/21 09:53 Oxycodone/ Acetaminophen (Percocet 10/325) 1 tab PRN Q6HRS PRN PO PAIN 06/19/21 17:00 06/25/21 20:19 Potassium Chloride (Klor-Con) 30 meq DAILY PO 06/20/21 09:00 06/26/21 09:06 Trazodone HCl (Desyrel) 150 mg HS PO 06/19/21 21:00 06/26/21 20:40 Atorvastatin Calcium (Lipitor) 80 mg QHS PO 06/19/21 21:00 06/26/21 20:40 Carvedilol (Coreg) 37.5 mg BID PO 06/19/21 21:00 06/26/21 20:40 Insulin Human Lispro (HumaLOG) 12 units TIDBFRMEAL SQ 06/20/21 07:30 06/24/21 12:43 Insulin Glargine (Lantus Syringe) 48 unit QHS SQ 06/19/21 21:00 Multivitamins/ Calcium (Thera-M Plus) 1 tab DAILY PO 06/20/21 09:00 06/26/21 09:06 Linagliptin (Tradjenta) 5 mg DAILY PO 06/20/21 09:00 06/26/21 09:07 Olanzapine (ZyPREXA ZYDIS) 2.5 mg PRN Q2HR PRN PO PSYCHOSIS 06/20/21 03:15 06/26/21 02:14 Duloxetine HCl (Cymbalta) 60 mg DAILY PO 06/21/21 09:00 06/26/21 09:07 Bupropion HCl (Wellbutrin Xl) 150 mg DAILY PO 06/21/21 09:00 06/25/21 21:00 DC 06/25/21 09:55 Bupropion HCl (Wellbutrin Xl) 300 mg DAILY PO 06/26/21 09:00 06/26/21 09:06 Docusate Sodium (Colace) 100 mg DAILY PO 06/22/21 09:00 06/22/21 00:17 DC Lamotrigine (LaMICtal) 25 mg QHS PO 06/21/21 21:00 06/23/21 23:59 DC 06/23/21 19:55 Lamotrigine (LaMICtal) 50 mg QHS PO 06/24/21 21:00 06/26/21 23:59 06/26/21 20:39 Lamotrigine (LaMICtal) 75 mg QHS PO 06/27/21 21:00 06/29/21 23:55 Lamotrigine (LaMICtal) 100 mg QHS PO 06/30/21 21:00 Docusate Sodium (Colace) 100 mg BID PO 06/22/21 09:00 06/26/21 20:40 Nystatin (Nystop) 1 neelima BID TP 06/25/21 21:00 06/26/21 20:41 Trazodone HCl (Desyrel) 100 mg PRN QHS PRN PO INSOMNIA 06/26/21 12:00 Current Medications Medications (Trade) Dose Ordered Sig/Nicky Route PRN Reason Start Time Stop Time Status Last Admin Dose Admin Bupropion HCl (Wellbutrin Xl) 300 mg DAILY PO 06/26/21 09:00 06/26/21 09:06 I have reviewed the current psychotropics carefully including drug interactions. Risk benefit ratio favors no change other than as noted in my dictated progress note. Diagnosis: Problems: (1) Major depressive disorder, recurrent, severe with psychotic features (2) Impulse control disorder, unspecified (3) Personality disorder, unspecified (4) Anxiety disorder, unspecified ESE LEVI MD Jun 26, 2021 21:04
[2021-06-27 06:20] VITALS: BP 156/81
--- NOTE | 2021-06-27 06:57 | PDOC ---
Exam Note: Josef Note: This note is a late entry for 06/26/2021 covers elements not covered in my initial note. Subjective: The patient was reviewed at treatment team meeting individually in the morning on 06/26/2021 with Carmen Gutierrez, Shiloh Dias, and Chen Natarajan (geriatric social work professor), Rachel Mclaughlin (Research Assistant), Kera, activity therapy, and Susi MODI, discussed and reviewed the chart. The patient slept 1- 1/4 hours previous night. Average sleep 4-1/2 hours. Appetite 75%. Last night he was hitting his head with his hand. He remains on one-one-one status for his activity therapy. We will add trazodone 100 mg h.s. p.r.n. insomnia in addition to 150 mg h.s. scheduled that he is already taking. Review of Systems: Ambulation impaired, in Broda chair. No CV, , eye, ENT system symptoms on review. Mental Status Exam: The patient is reasonably oriented. Speech coherent has some latency. Abstraction fair. Computation impaired. Language function intact. Mood and affect withdrawn. Laboratory Data: Reviewed. Impression: Major depressive disorder, recurrent, rule out psychotic features. Anxiety disorder unspecified. Plan: Add trazodone as above and rest unchanged for now. Assessment: Vital Signs/I&O: Vital Signs Date Time Temp Pulse Resp B/P (MAP) Pulse Ox O2 Delivery O2 Flow Rate FiO2 06/27/21 06:20 98.1 101 19 156/81 (106) 96 Room Air 06/25/21 06:01 2.0 I & O 06/26/21 06/26/21 06/27/21 14:59 22:59 06:59 Intake Total 200 ml 840 ml Balance 200 ml 840 ml Labs: Laboratory Tests Test 06/26/21 08:03 06/26/21 11:55 06/26/21 17:02 06/26/21 19:09 Glucose (Fingerstick) 156 mg/dL (70-99) H 187 mg/dL (70-99) H 181 mg/dL (70-99) H 156 mg/dL (70-99) H Current Medications: Meds: Laboratory Tests Test 06/26/21 08:03 06/26/21 11:55 06/26/21 17:02 06/26/21 19:09 Glucose (Fingerstick) 156 mg/dL 187 mg/dL 181 mg/dL 156 mg/dL Current Medications Medications (Trade) Dose Ordered Sig/Nicky Route PRN Reason Start Time Stop Time Status Last Admin Dose Admin Acetaminophen (Tylenol) 650 mg PRN Q6HRS PRN PO MILD PAIN / TEMP > 100.3'F 06/19/21 17:00 Multi-Ingredient Ointment (Analgesic [place]) 1 neelima PRN QID PRN TP MUSCLE PAIN 06/19/21 17:00 Al Hydroxide/Mg Hydroxide (Mylanta Plus Xs) 15 ml PRN AFTMEALHC PRN PO DYSPEPSIA 06/19/21 17:00 06/20/21 04:51 Magnesium Hydroxide (Milk Of Magnesia) 2,400 mg PRN QHS PRN PO CONSTIPATION 06/19/21 17:00 Aripiprazole (Abilify) 7.5 mg DAILY PO 06/20/21 09:00 06/26/21 09:06 Aspirin (Aspirin Chewable) 81 mg DAILY PO 06/20/21 09:00 06/26/21 09:07 Clopidogrel Bisulfate (Plavix) 75 mg DAILY PO 06/20/21 09:00 06/26/21 09:07 Duloxetine HCl (Cymbalta) 90 mg DAILY PO 06/20/21 09:00 06/20/21 18:46 DC 06/20/21 09:53 Oxycodone/ Acetaminophen (Percocet 10/325) 1 tab PRN Q6HRS PRN PO PAIN 06/19/21 17:00 06/25/21 20:19 Potassium Chloride (Klor-Con) 30 meq DAILY PO 06/20/21 09:00 06/26/21 09:06 Trazodone HCl (Desyrel) 150 mg HS PO 06/19/21 21:00 06/26/21 20:40 Atorvastatin Calcium (Lipitor) 80 mg QHS PO 06/19/21 21:00 06/26/21 20:40 Carvedilol (Coreg) 37.5 mg BID PO 06/19/21 21:00 06/26/21 20:40 Insulin Human Lispro (HumaLOG) 12 units TIDBFRMEAL SQ 06/20/21 07:30 06/24/21 12:43 Insulin Glargine (Lantus Syringe) 48 unit QHS SQ 06/19/21 21:00 Multivitamins/ Calcium (Thera-M Plus) 1 tab DAILY PO 06/20/21 09:00 06/26/21 09:06 Linagliptin (Tradjenta) 5 mg DAILY PO 06/20/21 09:00 06/26/21 09:07 Olanzapine (ZyPREXA ZYDIS) 2.5 mg PRN Q2HR PRN PO PSYCHOSIS 06/20/21 03:15 06/26/21 02:14 Duloxetine HCl (Cymbalta) 60 mg DAILY PO 06/21/21 09:00 06/26/21 09:07 Bupropion HCl (Wellbutrin Xl) 150 mg DAILY PO 06/21/21 09:00 06/25/21 21:00 DC 06/25/21 09:55 Bupropion HCl (Wellbutrin Xl) 300 mg DAILY PO 06/26/21 09:00 06/26/21 09:06 Docusate Sodium (Colace) 100 mg DAILY PO 06/22/21 09:00 06/22/21 00:17 DC Lamotrigine (LaMICtal) 25 mg QHS PO 06/21/21 21:00 06/23/21 23:59 DC 06/23/21 19:55 Lamotrigine (LaMICtal) 50 mg QHS PO 06/24/21 21:00 06/26/21 23:59 DC 06/26/21 20:39 Lamotrigine (LaMICtal) 75 mg QHS PO 06/27/21 21:00 06/29/21 23:55 Lamotrigine (LaMICtal) 100 mg QHS PO 06/30/21 21:00 Docusate Sodium (Colace) 100 mg BID PO 06/22/21 09:00 06/26/21 20:40 Nystatin (Nystop) 1 neelima BID TP 06/25/21 21:00 06/26/21 20:41 Trazodone HCl (Desyrel) 100 mg PRN QHS PRN PO INSOMNIA 06/26/21 12:00 Current Medications Medications (Trade) Dose Ordered Sig/Nicky Route PRN Reason Start Time Stop Time Status Last Admin Dose Admin Bupropion HCl (Wellbutrin Xl) 300 mg DAILY PO 06/26/21 09:00 06/26/21 09:06 I have reviewed the current psychotropics carefully including drug interactions. Risk benefit ratio favors no change other than as noted in my dictated progress note. Diagnosis: Problems: (1) Major depressive disorder, recurrent, severe with psychotic features (2) Impulse control disorder, unspecified (3) Personality disorder, unspecified (4) Anxiety disorder, unspecified ESE LEVI MD Jun 27, 2021 06:57
[2021-06-27] MEDS: INSULIN LISPRO 300 UNITS/3 ML VIAL. SQ SCH ×3 (07:30→16:30)
[2021-06-27] MEDS: DOCUSATE SODIUM 100 MG CAPSULE PO SCH ×2 (08:21→20:20)
[2021-06-27] MEDS: CARVEDILOL 12.5 MG TABLET PO SCH ×2 (08:21→20:20)
[2021-06-27] MEDS: MULTIVITAMIN with MINERAL TABLET. PO SCH (08:21)
[2021-06-27] MEDS: CLOPIDOGREL BISULFATE 75 MG TABLET PO SCH (08:22)
[2021-06-27] MEDS: ARIPiprazole 5 MG TABLET PO SCH (08:22)
[2021-06-27] MEDS: LINAGLIPTIN 5 MG TABLET PO SCH (08:22)
[2021-06-27] MEDS: DULoxetine HCL 30 MG CAPSULE.DR PO SCH (08:22)
[2021-06-27] MEDS: buPROPion XL 300 MG TAB.ER.24H. PO SCH (08:22)
[2021-06-27] MEDS: POTASSIUM CHLORIDE 10 MEQ TABLET.ER. PO SCH (08:23)
[2021-06-27] MEDS: ASPIRIN CHEWABLE 81 MG TABLET. PO SCH (08:23)
[2021-06-27] MEDS: NYSTATIN TOPICAL POWDER 15GM BOTTLE. TP SCH ×2 (09:00→20:19)
[2021-06-27 15:22] VITALS: BP 128/82
[2021-06-27] MEDS: ATORVASTATIN CALCIUM 20 MG TABLET PO SCH (20:20)
[2021-06-27] MEDS: INSULIN GLARGINE SYRINGE. SQ SCH (20:21)
[2021-06-27] MEDS: traZODone 100 MG TABLET. PO SCH (20:21)
[2021-06-27] MEDS: lamoTRIgine 25 MG TABLET. PO SCH (20:21)
--- NOTE | 2021-06-27 21:04 | PDOC ---
Exam Note: Josef Note: Please also refer to the separate dictated note~for this date of service dictated separately.~Patient seen individually. Discussed the patient with Nursing staff reviewed the chart.~Reviewed interim history and current functioning. Reviewed vital signs,~Labs/ Radiology~and current medications noted below. Continue current treatment with the changes noted in the dictated addendum note Assessment: Vital Signs/I&O: Vital Signs Date Time Temp Pulse Resp B/P (MAP) Pulse Ox O2 Delivery O2 Flow Rate FiO2 06/27/21 20:20 105 128/82 06/27/21 15:22 97.5 20 92 06/27/21 06:20 Room Air 06/25/21 06:01 2.0 I & O 06/26/21 06/26/21 06/27/21 15:00 23:00 07:00 Intake Total 200 ml 840 ml Balance 200 ml 840 ml Labs: Laboratory Tests Test 06/27/21 07:18 06/27/21 11:23 06/27/21 16:26 06/27/21 19:14 Glucose (Fingerstick) 163 mg/dL (70-99) H 146 mg/dL (70-99) H 139 mg/dL (70-99) H 161 mg/dL (70-99) H Current Medications: Meds: Laboratory Tests Test 06/27/21 07:18 06/27/21 11:23 06/27/21 16:26 06/27/21 19:14 Glucose (Fingerstick) 163 mg/dL 146 mg/dL 139 mg/dL 161 mg/dL Current Medications Medications (Trade) Dose Ordered Sig/Nicky Route PRN Reason Start Time Stop Time Status Last Admin Dose Admin Acetaminophen (Tylenol) 650 mg PRN Q6HRS PRN PO MILD PAIN / TEMP > 100.3'F 06/19/21 17:00 Multi-Ingredient Ointment (Analgesic [place]) 1 neelima PRN QID PRN TP MUSCLE PAIN 06/19/21 17:00 Al Hydroxide/Mg Hydroxide (Mylanta Plus Xs) 15 ml PRN AFTMEALHC PRN PO DYSPEPSIA 06/19/21 17:00 06/20/21 04:51 Magnesium Hydroxide (Milk Of Magnesia) 2,400 mg PRN QHS PRN PO CONSTIPATION 06/19/21 17:00 Aripiprazole (Abilify) 7.5 mg DAILY PO 06/20/21 09:00 06/27/21 08:22 Aspirin (Aspirin Chewable) 81 mg DAILY PO 06/20/21 09:00 06/27/21 08:23 Clopidogrel Bisulfate (Plavix) 75 mg DAILY PO 06/20/21 09:00 06/27/21 08:22 Duloxetine HCl (Cymbalta) 90 mg DAILY PO 06/20/21 09:00 06/20/21 18:46 DC 06/20/21 09:53 Oxycodone/ Acetaminophen (Percocet 10/325) 1 tab PRN Q6HRS PRN PO PAIN 06/19/21 17:00 06/25/21 20:19 Potassium Chloride (Klor-Con) 30 meq DAILY PO 06/20/21 09:00 06/27/21 08:23 Trazodone HCl (Desyrel) 150 mg HS PO 06/19/21 21:00 06/27/21 20:21 Atorvastatin Calcium (Lipitor) 80 mg QHS PO 06/19/21 21:00 06/27/21 20:20 Carvedilol (Coreg) 37.5 mg BID PO 06/19/21 21:00 06/27/21 20:20 Insulin Human Lispro (HumaLOG) 12 units TIDBFRMEAL SQ 06/20/21 07:30 06/24/21 12:43 Insulin Glargine (Lantus Syringe) 48 unit QHS SQ 06/19/21 21:00 Multivitamins/ Calcium (Thera-M Plus) 1 tab DAILY PO 06/20/21 09:00 06/27/21 08:21 Linagliptin (Tradjenta) 5 mg DAILY PO 06/20/21 09:00 06/27/21 08:22 Olanzapine (ZyPREXA ZYDIS) 2.5 mg PRN Q2HR PRN PO PSYCHOSIS 06/20/21 03:15 06/26/21 02:14 Duloxetine HCl (Cymbalta) 60 mg DAILY PO 06/21/21 09:00 06/27/21 08:22 Bupropion HCl (Wellbutrin Xl) 150 mg DAILY PO 06/21/21 09:00 06/25/21 21:00 DC 06/25/21 09:55 Bupropion HCl (Wellbutrin Xl) 300 mg DAILY PO 06/26/21 09:00 06/27/21 08:22 Docusate Sodium (Colace) 100 mg DAILY PO 06/22/21 09:00 06/22/21 00:17 DC Lamotrigine (LaMICtal) 25 mg QHS PO 06/21/21 21:00 06/23/21 23:59 DC 06/23/21 19:55 Lamotrigine (LaMICtal) 50 mg QHS PO 06/24/21 21:00 06/26/21 23:59 DC 06/26/21 20:39 Lamotrigine (LaMICtal) 75 mg QHS PO 06/27/21 21:00 06/29/21 23:55 06/27/21 20:21 Lamotrigine (LaMICtal) 100 mg QHS PO 06/30/21 21:00 Docusate Sodium (Colace) 100 mg BID PO 06/22/21 09:00 06/27/21 20:20 Nystatin (Nystop) 1 neelima BID TP 06/25/21 21:00 06/27/21 20:19 Trazodone HCl (Desyrel) 100 mg PRN QHS PRN PO INSOMNIA 06/26/21 12:00 Current Medications Medications (Trade) Dose Ordered Sig/Nicky Route PRN Reason Start Time Stop Time Status Last Admin Dose Admin Lamotrigine (LaMICtal) 75 mg QHS PO 06/27/21 21:00 06/29/21 23:55 06/27/21 20:21 I have reviewed the current psychotropics carefully including drug interactions. Risk benefit ratio favors no change other than as noted in my dictated progress note. Diagnosis: Problems: (1) Impulse control disorder, unspecified (2) Personality disorder, unspecified (3) Anxiety disorder, unspecified (4) Major depressive disorder, recurrent, severe with psychotic features ESE LEVI MD Jun 27, 2021 21:04
[2021-06-28 05:42] VITALS: BP 151/93
[2021-06-28] MEDS: INSULIN LISPRO 300 UNITS/3 ML VIAL. SQ SCH ×3 (07:30→16:30)
--- NOTE | 2021-06-28 07:56 | PDOC ---
Exam Note: Josef Note: This note is a late entry for 06/27/2021 covers elements not covered in my initial note. Subjective: The patient was seen individually in the evening of 06/27/2021 with Ashli MODI, discussed and reviewed the chart. The patient slept 3-3/4 hours previous night. He has been extremely attention seeking per nursing staff. He has had marked mood lability, throwing himself on the floor and staff have placed cushion mats all around his bed. He has been refusing to eat other than some [employer] chocolates given to him by the activity therapy staff. Review of Systems: Ambulation impaired and he was lying in bed as I met with him at length. No CV, , eye, ENT system symptoms on review. He complains of tiredness. Mental Status Exam: The patient is oriented to himself and situation. Speech is low in rate and rhythm, low in volume, coherent. Abstraction fair. Computation impaired. Language function intact. Mood and affect depressed, anx ious. He is somewhat delusional. He denies suicidal ideation. Laboratory Data: Reviewed. Impression: Major depressive disorder, recurrent, rule out psychotic features. Anxiety disorder unspecified. Plan: Continue current psychotropics. Reviewed drug interactions. Risk- benefit ratio. Adjust further as clinically indicated. Assessment: Vital Signs/I&O: Vital Signs Date Time Temp Pulse Resp B/P (MAP) Pulse Ox O2 Delivery O2 Flow Rate FiO2 06/28/21 05:42 96.5 98 26 151/93 (112) 94 Room Air 06/25/21 06:01 2.0 I & O 06/27/21 06/27/21 06/28/21 15:00 23:00 07:00 Intake Total 290 ml 240 ml Balance 290 ml 240 ml Labs: Laboratory Tests Test 06/27/21 11:23 06/27/21 16:26 06/27/21 19:14 06/28/21 07:15 Glucose (Fingerstick) 146 mg/dL (70-99) H 139 mg/dL (70-99) H 161 mg/dL (70-99) H 152 mg/dL (70-99) H Current Medications: Meds: Laboratory Tests Test 06/27/21 11:23 06/27/21 16:26 06/27/21 19:14 06/28/21 07:15 Glucose (Fingerstick) 146 mg/dL 139 mg/dL 161 mg/dL 152 mg/dL Current Medications Medications (Trade) Dose Ordered Sig/Nicky Route PRN Reason Start Time Stop Time Status Last Admin Dose Admin Acetaminophen (Tylenol) 650 mg PRN Q6HRS PRN PO MILD PAIN / TEMP > 100.3'F 06/19/21 17:00 Multi-Ingredient Ointment (Analgesic [place]) 1 neelima PRN QID PRN TP MUSCLE PAIN 06/19/21 17:00 Al Hydroxide/Mg Hydroxide (Mylanta Plus Xs) 15 ml PRN AFTMEALHC PRN PO DYSPEPSIA 06/19/21 17:00 06/20/21 04:51 Magnesium Hydroxide (Milk Of Magnesia) 2,400 mg PRN QHS PRN PO CONSTIPATION 06/19/21 17:00 Aripiprazole (Abilify) 7.5 mg DAILY PO 06/20/21 09:00 06/27/21 08:22 Aspirin (Aspirin Chewable) 81 mg DAILY PO 06/20/21 09:00 06/27/21 08:23 Clopidogrel Bisulfate (Plavix) 75 mg DAILY PO 06/20/21 09:00 06/27/21 08:22 Duloxetine HCl (Cymbalta) 90 mg DAILY PO 06/20/21 09:00 06/20/21 18:46 DC 06/20/21 09:53 Oxycodone/ Acetaminophen (Percocet 10/325) 1 tab PRN Q6HRS PRN PO PAIN 06/19/21 17:00 06/25/21 20:19 Potassium Chloride (Klor-Con) 30 meq DAILY PO 06/20/21 09:00 06/27/21 08:23 Trazodone HCl (Desyrel) 150 mg HS PO 06/19/21 21:00 06/27/21 20:21 Atorvastatin Calcium (Lipitor) 80 mg QHS PO 06/19/21 21:00 06/27/21 20:20 Carvedilol (Coreg) 37.5 mg BID PO 06/19/21 21:00 06/27/21 20:20 Insulin Human Lispro (HumaLOG) 12 units TIDBFRMEAL SQ 06/20/21 07:30 06/24/21 12:43 Insulin Glargine (Lantus Syringe) 48 unit QHS SQ 06/19/21 21:00 Multivitamins/ Calcium (Thera-M Plus) 1 tab DAILY PO 06/20/21 09:00 06/27/21 08:21 Linagliptin (Tradjenta) 5 mg DAILY PO 06/20/21 09:00 06/27/21 08:22 Olanzapine (ZyPREXA ZYDIS) 2.5 mg PRN Q2HR PRN PO PSYCHOSIS 06/20/21 03:15 06/26/21 02:14 Duloxetine HCl (Cymbalta) 60 mg DAILY PO 06/21/21 09:00 06/27/21 08:22 Bupropion HCl (Wellbutrin Xl) 150 mg DAILY PO 06/21/21 09:00 06/25/21 21:00 DC 06/25/21 09:55 Bupropion HCl (Wellbutrin Xl) 300 mg DAILY PO 06/26/21 09:00 06/27/21 08:22 Docusate Sodium (Colace) 100 mg DAILY PO 06/22/21 09:00 06/22/21 00:17 DC Lamotrigine (LaMICtal) 25 mg QHS PO 06/21/21 21:00 06/23/21 23:59 DC 06/23/21 19:55 Lamotrigine (LaMICtal) 50 mg QHS PO 06/24/21 21:00 06/26/21 23:59 DC 06/26/21 20:39 Lamotrigine (LaMICtal) 75 mg QHS PO 06/27/21 21:00 06/29/21 23:55 06/27/21 20:21 Lamotrigine (LaMICtal) 100 mg QHS PO 06/30/21 21:00 Docusate Sodium (Colace) 100 mg BID PO 06/22/21 09:00 06/27/21 20:20 Nystatin (Nystop) 1 neelima BID TP 06/25/21 21:00 06/27/21 20:19 Trazodone HCl (Desyrel) 100 mg PRN QHS PRN PO INSOMNIA 06/26/21 12:00 Current Medications Medications (Trade) Dose Ordered Sig/Nicky Route PRN Reason Start Time Stop Time Status Last Admin Dose Admin Lamotrigine (LaMICtal) 75 mg QHS PO 06/27/21 21:00 06/29/21 23:55 06/27/21 20:21 I have reviewed the current psychotropics carefully including drug interactions. Risk benefit ratio favors no change other than as noted in my dictated progress note. Diagnosis: Problems: (1) Impulse control disorder, unspecified (2) Personality disorder, unspecified (3) Anxiety disorder, unspecified (4) Major depressive disorder, recurrent, severe with psychotic features ESE LEVI MD Jun 28, 2021 07:56
[2021-06-28] MEDS: DOCUSATE SODIUM 100 MG CAPSULE PO SCH ×2 (08:15→20:17)
[2021-06-28] MEDS: ARIPiprazole 5 MG TABLET PO SCH (08:15)
[2021-06-28] MEDS: LINAGLIPTIN 5 MG TABLET PO SCH (08:15)
[2021-06-28] MEDS: buPROPion XL 300 MG TAB.ER.24H. PO SCH (08:15)
[2021-06-28] MEDS: CARVEDILOL 12.5 MG TABLET PO SCH ×2 (08:15→20:18)
[2021-06-28] MEDS: ASPIRIN CHEWABLE 81 MG TABLET. PO SCH (08:16)
[2021-06-28] MEDS: CLOPIDOGREL BISULFATE 75 MG TABLET PO SCH (08:16)
[2021-06-28] MEDS: POTASSIUM CHLORIDE 10 MEQ TABLET.ER. PO SCH (08:16)
[2021-06-28] MEDS: MULTIVITAMIN with MINERAL TABLET. PO SCH (08:16)
[2021-06-28] MEDS: NYSTATIN TOPICAL POWDER 15GM BOTTLE. TP SCH ×2 (08:17→20:20)
[2021-06-28] MEDS: DULoxetine HCL 30 MG CAPSULE.DR PO SCH (08:17)
[2021-06-28 14:59] VITALS: BP 133/93
[2021-06-28 17:07] LABS: BASO % 0 % (0-3); EOS # 0.1 x10^3/uL (0.0-0.7); EOS % 1 % (0-3); HEMATOCRIT 35.2 % (39.0-53.0); HEMOGLOBIN 11.4 g/dL (13.0-17.5); LYMPH # 0.8 x10^3/uL (1.0-4.8); LYMPH % 9 % (24-48); MEAN CORPUSCULAR HEMOGLOBIN 31 pg (25-35); MEAN CORPUSCULAR HGB CONC 32 g/dL (31-37); MEAN CORPUSCULAR VOLUME 94 fL (79-100); MONO # 0.9 x10^3/uL (0.0-1.1); MONO % 11 % (0-9); NEUT # 7.1 x10^3uL (1.8-7.7); NEUT % 79 % (31-73); PLATELET COUNT 282 x10^3/uL (140-400); RED BLOOD COUNT 3.73 x10^6/uL (4.30-5.70); RED CELL DISTRIBUTION WIDTH 16.6 % (11.5-14.5); WHITE BLOOD COUNT 8.9 x10^3/uL (4.0-11.0)
[2021-06-28 17:25] LABS: ALBUMIN 2.5 g/dL (3.4-5.0); ALBUMIN/GLOBULIN RATIO 0.6 (1.0-1.7); CALCIUM 8.7 mg/dL (8.5-10.1); GFR 74.5; POTASSIUM 4.7 mmol/L (3.5-5.1); TOTAL BILIRUBIN 0.9 mg/dL (0.2-1.0); TOTAL PROTEIN 6.8 g/dL (6.4-8.2)
[2021-06-28] MEDS: INSULIN GLARGINE SYRINGE. SQ SCH (19:55)
[2021-06-28] MEDS: DOXEPIN HCL 10 MG CAPSULE PO SCH (20:17)
[2021-06-28] MEDS: lamoTRIgine 25 MG TABLET. PO SCH (20:17)
[2021-06-28] MEDS: ATORVASTATIN CALCIUM 20 MG TABLET PO SCH (20:18)
[2021-06-28] MEDS: traZODone 100 MG TABLET. PO SCH (20:19)
[2021-06-28] MEDS: MAGNESIUM HYDROXIDE 2,400 MG/30 ML ORAL.SUSP. PO PRN (20:19)
--- NOTE | 2021-06-28 22:23 | PN ---
DATE: 06/28/2021 SUBJECTIVE: The patient was seen today, met with the staff. Chart reviewed and also covering for Dr. Jacobs. Staff reports he has been refusing to eat. Apparently, he has been hypoglycemic and also noncompliant with the treatment. Staff also reports he is attention seeking and demanding and also throwing himself on the floor. OBSERVATION: VITAL SIGNS: Temperature 96.5, blood pressure 151/93, pulse 98, respirations 26, O2 sat 94%. General: Slept about 3 hours last night. The patient's appetite decreased. LABORATORY DATA: The patient's lab reviewed. The patient's BUN 27, glucose level was 105. Otherwise, no other changes. CURRENT MEDICATIONS: The patient's medications reviewed, currently on Lamictal 100 mg at night and 75 mg at night, trazodone 100 mg at night p.r.n. for sleep, bupropion 300 mg daily, Cymbalta 60 mg daily, Abilify 7.5 mg daily, olanzapine 2.5 mg q. 2 hours p.r.n., trazodone 150 mg at night. The patient is not having any side effects. ASSESSMENT: Major depression, recurrent. PLAN: The patient's medications reviewed, discussed with the staff and the patient continues to have problems with sleep, sleeping only about 3 hours at night. The patient's Abilify was increased to 10 mg daily to decrease his agitation. LENGTH OF STAY: Three to five days. BETH DR: Gregory TID: [id number]
[2021-06-29] MEDS: traZODone 100 MG TABLET. PO PRN ×2 (00:07→22:28)
[2021-06-29] MEDS: oxyCODONE/APAP 10/325 1 TAB TABLET PO PRN ×2 (02:14→20:03)
[2021-06-29 05:24] VITALS: BP 112/75
[2021-06-29] MEDS: INSULIN LISPRO 300 UNITS/3 ML VIAL. SQ SCH ×3 (07:30→16:30)
[2021-06-29] MEDS: NYSTATIN TOPICAL POWDER 15GM BOTTLE. TP SCH ×2 (09:00→19:38)
[2021-06-29] MEDS: ASPIRIN CHEWABLE 81 MG TABLET. PO SCH (09:32)
[2021-06-29] MEDS: CARVEDILOL 12.5 MG TABLET PO SCH ×2 (09:33→20:01)
[2021-06-29] MEDS: MULTIVITAMIN with MINERAL TABLET. PO SCH (09:33)
[2021-06-29] MEDS: buPROPion XL 300 MG TAB.ER.24H. PO SCH (09:33)
[2021-06-29] MEDS: DOCUSATE SODIUM 100 MG CAPSULE PO SCH ×2 (09:33→20:00)
[2021-06-29] MEDS: POTASSIUM CHLORIDE 10 MEQ TABLET.ER. PO SCH (09:33)
[2021-06-29] MEDS: CLOPIDOGREL BISULFATE 75 MG TABLET PO SCH (09:33)
[2021-06-29] MEDS: ARIPiprazole 10 MG TABLET PO SCH (09:34)
[2021-06-29] MEDS: LINAGLIPTIN 5 MG TABLET PO SCH (09:34)
[2021-06-29] MEDS: DULoxetine HCL 30 MG CAPSULE.DR PO SCH (09:34)
--- NOTE | 2021-06-29 14:33 | RAD ---
AP portable chest radiograph 06/29/2021 Clinical History: Cough and shortness of breath. An AP erect portable digital radiograph of the chest was obtained. The patient is post median sternotomy. The cardiac silhouette is mildly enlarged. The thoracic aorta is tortuous. Atherosclerotic calcification of the thoracic aorta is seen. Bilateral perihilar infiltr ates are seen which likely reflect pulmonary edema from CHF. No pneumothorax or pleural effusion is n oted. Degenerative changes are seen involving the thoracic spine and both shoulders. IMPRESSION: Bilateral perihilar infiltrates are seen which likely reflect pulmonary edema from CHF. Electronically signed by: Mitchel Sanchez MD (06/29/2021 2:31 PM) [id number]
[2021-06-29 15:33] VITALS: BP 122/82
[2021-06-29] MEDS: ACETAMINOPHEN 325 MG TABLET PO PRN (17:56)
[2021-06-29] MEDS: INSULIN GLARGINE SYRINGE. SQ SCH (19:38)
[2021-06-29] MEDS: ATORVASTATIN CALCIUM 20 MG TABLET PO SCH (20:00)
[2021-06-29] MEDS: traZODone 100 MG TABLET. PO SCH (20:01)
[2021-06-29] MEDS: lamoTRIgine 25 MG TABLET. PO SCH (20:02)
[2021-06-29] MEDS: DOXEPIN HCL 10 MG CAPSULE PO SCH (20:03)
--- NOTE | 2021-06-29 23:02 | PN ---
DATE: 06/29/2021 SUBJECTIVE: The patient was seen today, met with the staff. Chart reviewed and also covering for Dr. Jacobs. The patient's behavior remains the same, still anxious and nervous. The patient continues to be demanding, multiple physical complaints. The patient is also noncompliant with the treatment. OBJECTIVE: VITAL SIGNS: Temperature 97.4, blood pressure 112/75, pulse 85, respirations 18, O2 sat 96%. Slept about 3.5 hours last night. GENERAL: The patient's appetite is decreased. LABORATORY DATA: The patient's lab reviewed. CURRENT MEDICATIONS: The patient's current medications include Lamictal 100 mg at night and 75 mg at night, trazodone 100 mg at night p.r.n. for sleep, bupropion 300 mg daily. He is also on Cymbalta 60 mg daily, Abilify 7.5 mg daily. The patient is also getting olanzapine 2.5 mg q. 2 hours p.r.n. The patient denies of having any side effects. ASSESSMENT: Major depression, recurrent. PLAN: The patient will continue the current treatment plan. LENGTH OF STAY: 3 to 5 days. MAREN/ROHINI/LETICIA DR: Gregory TID: [id number]
[2021-06-30 05:45] VITALS: BP 124/88
[2021-06-30] MEDS: INSULIN LISPRO 300 UNITS/3 ML VIAL. SQ SCH ×3 (07:30→16:30)
[2021-06-30] MEDS: buPROPion XL 300 MG TAB.ER.24H. PO SCH (08:32)
[2021-06-30] MEDS: POTASSIUM CHLORIDE 10 MEQ TABLET.ER. PO SCH (08:33)
[2021-06-30] MEDS: CLOPIDOGREL BISULFATE 75 MG TABLET PO SCH (08:33)
[2021-06-30] MEDS: ARIPiprazole 10 MG TABLET PO SCH (08:33)
[2021-06-30] MEDS: DULoxetine HCL 30 MG CAPSULE.DR PO SCH (08:33)
[2021-06-30] MEDS: ASPIRIN CHEWABLE 81 MG TABLET. PO SCH (08:33)
[2021-06-30] MEDS: CARVEDILOL 12.5 MG TABLET PO SCH ×2 (08:33→20:55)
[2021-06-30] MEDS: MULTIVITAMIN with MINERAL TABLET. PO SCH (08:33)
[2021-06-30] MEDS: LINAGLIPTIN 5 MG TABLET PO SCH (08:33)
[2021-06-30] MEDS: DOCUSATE SODIUM 100 MG CAPSULE PO SCH ×2 (08:33→20:55)
[2021-06-30] MEDS: FUROSEMIDE 40 MG TABLET PO SCH (08:34)
[2021-06-30] MEDS: NYSTATIN TOPICAL POWDER 15GM BOTTLE. TP SCH ×2 (08:34→20:18)
[2021-06-30 15:31] VITALS: BP 95/60
[2021-06-30] MEDS: INSULIN GLARGINE SYRINGE. SQ SCH (20:17)
[2021-06-30] MEDS: ATORVASTATIN CALCIUM 20 MG TABLET PO SCH (20:54)
[2021-06-30] MEDS: lamoTRIgine 100 MG TABLET. PO SCH (20:54)
[2021-06-30] MEDS: traZODone 100 MG TABLET. PO SCH (20:54)
[2021-06-30] MEDS: DOXEPIN HCL 10 MG CAPSULE PO SCH (20:55)
[2021-06-30] MEDS: oxyCODONE/APAP 10/325 1 TAB TABLET PO PRN (21:21)
[2021-06-30] MEDS: traZODone 100 MG TABLET. PO PRN (23:32)
--- NOTE | 2021-07-01 00:31 | PN ---
DATE: 06/30/2021 SUBJECTIVE: The patient was seen today, met with the staff. Chart was reviewed and also covering for Dr. Jacobs. The patient's behavior fluctuates. The patient apparently has mood swings and also demanding at times. Today, he is much more pleasant. The patient also has periods of depression, restlessness and increased anxiety. OBSERVATION: VITAL SIGNS: Temperature 96.9, blood pressure 124/88, pulse 99, respirations 26, O2 sat 93%. Slept only one hour last night. LABORATORY DATA: The patient's lab reviewed. CURRENT MEDICATIONS: The patient's current medications: Lamictal 100 mg plus 75 mg at night, trazodone 100 mg at night p.r.n. for sleep, bupropion 300 mg daily. The patient is also on Abilify 7.5 mg daily and Cymbalta 60 mg daily. The patient is not having any side effects. ASSESSMENT: Major depression, recurrent. PLAN: Continue with the current treatment plan. LENGTH OF STAY: 3-5 days. MAREN/JUSTIN DR: Gregory TID: [id number]
[2021-07-01 05:36] VITALS: BP 133/83
[2021-07-01] MEDS: INSULIN LISPRO 300 UNITS/3 ML VIAL. SQ SCH ×3 (07:30→16:29)
[2021-07-01] MEDS: CLOPIDOGREL BISULFATE 75 MG TABLET PO SCH (08:29)
[2021-07-01] MEDS: DOCUSATE SODIUM 100 MG CAPSULE PO SCH ×2 (08:29→20:06)
[2021-07-01] MEDS: buPROPion XL 300 MG TAB.ER.24H. PO SCH (08:29)
[2021-07-01] MEDS: FUROSEMIDE 40 MG TABLET PO SCH (08:29)
[2021-07-01] MEDS: MULTIVITAMIN with MINERAL TABLET. PO SCH (08:29)
[2021-07-01] MEDS: DULoxetine HCL 30 MG CAPSULE.DR PO SCH (08:29)
[2021-07-01] MEDS: POTASSIUM CHLORIDE 10 MEQ TABLET.ER. PO SCH (08:29)
[2021-07-01] MEDS: CARVEDILOL 12.5 MG TABLET PO SCH ×2 (08:30→20:06)
[2021-07-01] MEDS: ASPIRIN CHEWABLE 81 MG TABLET. PO SCH (08:30)
[2021-07-01] MEDS: LINAGLIPTIN 5 MG TABLET PO SCH (08:30)
[2021-07-01] MEDS: NYSTATIN TOPICAL POWDER 15GM BOTTLE. TP SCH ×2 (08:30→20:07)
[2021-07-01] MEDS: ARIPiprazole 10 MG TABLET PO SCH (08:30)
[2021-07-01 15:03] VITALS: BP 108/70
[2021-07-01] MEDS: lamoTRIgine 100 MG TABLET. PO SCH (20:06)
[2021-07-01] MEDS: traZODone 100 MG TABLET. PO SCH (20:06)
[2021-07-01] MEDS: INSULIN GLARGINE SYRINGE. SQ SCH (20:07)
[2021-07-01] MEDS: ATORVASTATIN CALCIUM 20 MG TABLET PO SCH (20:07)
[2021-07-01] MEDS: DOXEPIN HCL 10 MG CAPSULE PO SCH (20:13)
[2021-07-01] MEDS: oxyCODONE/APAP 10/325 1 TAB TABLET PO PRN (20:13)
--- NOTE | 2021-07-01 23:41 | PN ---
DATE: 07/01/2021 SUBJECTIVE: The patient is seen today, met with the staff and chart reviewed. The patient continues to show fluctuating behavior, sometimes pleasant and friendly and at times gets irritable, ivey, demanding. Complaining of having panic attacks frequently. The patient also admits to feeling depressed, but no negative thoughts. OBSERVATION: VITAL SIGNS: Temperature 97.0, blood pressure 133/83, pulse 106, respirations 22, O2 sat 92%. Slept about 2 hours last night. GENERAL: The patient's appetite improved. The patient is not having any other physical complaints at this time. CURRENT MEDICATIONS: The patient's current medications include Lamictal 100 mg plus 75 mg at night, trazodone 100 mg at night p.r.n., bupropion 300 mg daily. He is also on Abilify 7.5 mg daily and Cymbalta 60 mg daily. The patient denies of any side effects to medications. ASSESSMENT: Major depression, recurrent. PLAN: To continue with current treatment plan. LENGTH OF STAY: Three to five days. TERESA DR: Gregory TID: [id number]
[2021-07-02 06:07] VITALS: BP 120/93
[2021-07-02] MEDS: INSULIN LISPRO 300 UNITS/3 ML VIAL. SQ SCH ×3 (07:30→16:30)
[2021-07-02] MEDS: POTASSIUM CHLORIDE 10 MEQ TABLET.ER. PO SCH (08:20)
[2021-07-02] MEDS: FUROSEMIDE 40 MG TABLET PO SCH (08:20)
[2021-07-02] MEDS: ASPIRIN CHEWABLE 81 MG TABLET. PO SCH (08:20)
[2021-07-02] MEDS: ARIPiprazole 10 MG TABLET PO SCH (08:21)
[2021-07-02] MEDS: CLOPIDOGREL BISULFATE 75 MG TABLET PO SCH (08:21)
[2021-07-02] MEDS: MULTIVITAMIN with MINERAL TABLET. PO SCH (08:21)
[2021-07-02] MEDS: CARVEDILOL 12.5 MG TABLET PO SCH ×2 (08:21→20:15)
[2021-07-02] MEDS: buPROPion XL 300 MG TAB.ER.24H. PO SCH (08:21)
[2021-07-02] MEDS: DULoxetine HCL 30 MG CAPSULE.DR PO SCH (08:21)
[2021-07-02] MEDS: DOCUSATE SODIUM 100 MG CAPSULE PO SCH ×2 (08:21→20:15)
[2021-07-02] MEDS: LINAGLIPTIN 5 MG TABLET PO SCH (08:21)
[2021-07-02] MEDS: NYSTATIN TOPICAL POWDER 15GM BOTTLE. TP SCH ×2 (08:39→21:00)
[2021-07-02 15:29] VITALS: BP 106/54
[2021-07-02] MEDS: traZODone 100 MG TABLET. PO SCH (20:13)
[2021-07-02] MEDS: lamoTRIgine 100 MG TABLET. PO SCH (20:15)
[2021-07-02] MEDS: ATORVASTATIN CALCIUM 20 MG TABLET PO SCH (20:16)
[2021-07-02] MEDS: DOXEPIN HCL 10 MG CAPSULE PO SCH (20:18)
[2021-07-02] MEDS: INSULIN GLARGINE SYRINGE. SQ SCH (21:00)
[2021-07-02] MEDS: oxyCODONE/APAP 10/325 1 TAB TABLET PO PRN (22:57)
--- NOTE | 2021-07-03 01:31 | PN ---
DATE: 07/02/2021 SUBJECTIVE: The patient was seen today, met with the staff, chart reviewed, and also covering for Dr. Jacobs. Staff reports fluctuating behaviors, demanding, complaining about his diet, wanting to switch from pureed diet to mechanical diet and will be seeing the dietitian. The patient also complaining of decreased appetite. The patient has not complained of having any panic attacks. OBSERVATION: VITAL SIGNS: Temperature 97.2, blood pressure 120/93, pulse 90, respirations 22, O2 saturation 91%. GENERAL: Slept about 6 hours last night. The patient's appetite decreased. CURRENT MEDICATIONS: The patient's medications reviewed. Currently on Lamictal 100 mg plus 75 mg at night, trazodone 100 mg at night p.r.n., bupropion 300 mg daily. The patient will continue on his Abilify 7.5 mg daily and also Cymbalta 60 mg daily. He denies of any side effects. The patient has been alert, oriented to surroundings and did not have any major complaints today. ASSESSMENT: Major depression, recurrent. PLAN: To continue with the treatment. LENGTH OF STAY: Five days. SERGEY DR: Gregory TID: [id number]
[2021-07-03 05:26] VITALS: BP 133/92
[2021-07-03] MEDS: INSULIN LISPRO 300 UNITS/3 ML VIAL. SQ SCH ×3 (07:30→16:30)
[2021-07-03] MEDS: FUROSEMIDE 40 MG TABLET PO SCH (08:06)
[2021-07-03] MEDS: DOCUSATE SODIUM 100 MG CAPSULE PO SCH ×2 (08:06→19:34)
[2021-07-03] MEDS: buPROPion XL 300 MG TAB.ER.24H. PO SCH (08:06)
[2021-07-03] MEDS: CLOPIDOGREL BISULFATE 75 MG TABLET PO SCH (08:06)
[2021-07-03] MEDS: ARIPiprazole 10 MG TABLET PO SCH (08:06)
[2021-07-03] MEDS: POTASSIUM CHLORIDE 10 MEQ TABLET.ER. PO SCH (08:06)
[2021-07-03] MEDS: MULTIVITAMIN with MINERAL TABLET. PO SCH (08:07)
[2021-07-03] MEDS: CARVEDILOL 12.5 MG TABLET PO SCH ×2 (08:07→19:34)
[2021-07-03] MEDS: ASPIRIN CHEWABLE 81 MG TABLET. PO SCH (08:07)
[2021-07-03] MEDS: DULoxetine HCL 30 MG CAPSULE.DR PO SCH (08:07)
[2021-07-03] MEDS: LINAGLIPTIN 5 MG TABLET PO SCH (08:07)
[2021-07-03] MEDS: NYSTATIN TOPICAL POWDER 15GM BOTTLE. TP SCH ×2 (08:08→19:36)
[2021-07-03] MEDS: oxyCODONE/APAP 10/325 1 TAB TABLET PO PRN (09:34)
[2021-07-03 13:42] LABS: BASO % 0 % (0-3); EOS # 0.1 x10^3/uL (0.0-0.7); EOS % 1 % (0-3); HEMOGLOBIN 10.6 g/dL (13.0-17.5); LYMPH # 0.7 x10^3/uL (1.0-4.8); LYMPH % 7 % (24-48); MEAN CORPUSCULAR HEMOGLOBIN 30 pg (25-35); MEAN CORPUSCULAR HGB CONC 32 g/dL (31-37); MEAN CORPUSCULAR VOLUME 94 fL (79-100); MONO # 0.9 x10^3/uL (0.0-1.1); MONO % 9 % (0-9); NEUT # 7.8 x10^3uL (1.8-7.7); NEUT % 82 % (31-73); PLATELET COUNT 314 x10^3/uL (140-400); RED BLOOD COUNT 3.49 x10^6/uL (4.30-5.70); WHITE BLOOD COUNT 9.5 x10^3/uL (4.0-11.0)
[2021-07-03 14:12] LABS: ALBUMIN 2.4 g/dL (3.4-5.0); ALBUMIN/GLOBULIN RATIO 0.6 (1.0-1.7); CALCIUM 8.1 mg/dL (8.5-10.1); CREATININE 1.2 mg/dL (0.7-1.3); GFR 60.4; POTASSIUM 4.2 mmol/L (3.5-5.1); TOTAL BILIRUBIN 0.5 mg/dL (0.2-1.0); TOTAL PROTEIN 6.3 g/dL (6.4-8.2)
[2021-07-03 15:40] VITALS: BP 123/84
[2021-07-03] MEDS: ATORVASTATIN CALCIUM 20 MG TABLET PO SCH (19:34)
[2021-07-03] MEDS: lamoTRIgine 100 MG TABLET. PO SCH (19:35)
[2021-07-03] MEDS: traZODone 100 MG TABLET. PO SCH (19:35)
[2021-07-03] MEDS: DOXEPIN HCL 10 MG CAPSULE PO SCH (19:36)
[2021-07-03] MEDS: INSULIN GLARGINE SYRINGE. SQ SCH (21:00)
[2021-07-03] MEDS: traZODone 100 MG TABLET. PO PRN (21:53)
--- NOTE | 2021-07-04 02:15 | PN ---
DATE: 07/03/2021 SUBJECTIVE: The patient was seen today, met with the staff, chart reviewed and also participated in the treatment review conference. Staff reports continues to have problems with sleep, averaging 2-3 hours at night. The patient also being treated for pulmonary edema, currently on Lasix 40 mg daily since she was having panic attacks and also difficulty breathing. VITAL SIGNS: Stable. MEDICATIONS: The patient's current medications include Lamictal 100 mg +75 mg at night, trazodone 100 mg at night p.r.n., bupropion 300 mg daily. The patient is also on Abilify 7.5 mg daily and Cymbalta 60 mg daily. The patient is not having any side effects. LABORATORY DATA: The patient's lab reviewed and the patient's hemoglobin was 10.6. The patient's glucose level was 155. BUN was 30. ASSESSMENT: Major depression, recurrent. PLAN: To continue with the treatment. LENGTH OF STAY: Five to seven days. ALISHA DR: Gregory TID: [id number]
[2021-07-04 05:46] VITALS: BP 146/95
[2021-07-04] MEDS: INSULIN LISPRO 300 UNITS/3 ML VIAL. SQ SCH ×3 (07:30→16:30)
[2021-07-04] MEDS: ASPIRIN CHEWABLE 81 MG TABLET. PO SCH (08:03)
[2021-07-04] MEDS: FUROSEMIDE 40 MG TABLET PO SCH (08:03)
[2021-07-04] MEDS: MULTIVITAMIN with MINERAL TABLET. PO SCH (08:04)
[2021-07-04] MEDS: DULoxetine HCL 30 MG CAPSULE.DR PO SCH (08:04)
[2021-07-04] MEDS: CLOPIDOGREL BISULFATE 75 MG TABLET PO SCH (08:04)
[2021-07-04] MEDS: LINAGLIPTIN 5 MG TABLET PO SCH (08:04)
[2021-07-04] MEDS: buPROPion XL 300 MG TAB.ER.24H. PO SCH (08:04)
[2021-07-04] MEDS: CARVEDILOL 12.5 MG TABLET PO SCH ×2 (08:05→19:38)
[2021-07-04] MEDS: DOCUSATE SODIUM 100 MG CAPSULE PO SCH ×2 (08:05→19:37)
[2021-07-04] MEDS: POTASSIUM CHLORIDE 10 MEQ TABLET.ER. PO SCH (08:05)
[2021-07-04] MEDS: ARIPiprazole 10 MG TABLET PO SCH (08:06)
[2021-07-04] MEDS: NYSTATIN TOPICAL POWDER 15GM BOTTLE. TP SCH ×2 (08:10→21:00)
[2021-07-04] MEDS ORDERED: MAGNESIUM CITRATE 296 ML SOLUTION. PO PRN (12:30)
--- NOTE | 2021-07-04 12:50 | PN ---
DATE: 07/04/2021 SUBJECTIVE: The patient was seen today, met with the staff, chart reviewed, also covering for Dr. Jacobs. Staff reports that he is not sleeping at all at night, but stays in bed most of the time during the daytime. The patient continues to have high level of anxiety, also showing mood swings, irritability. He is medication compliant. He continues to have difficulty breathing. The patient apparently has difficulty moving around on the mattress and also constantly yelling. OBSERVATION: VITAL SIGNS: Temperature of 97.6, blood pressure 146/95, pulse 117, respirations 20, O2 sat 97%. GENERAL: The patient's appetite is fair. The patient is currently not having any other physical complaints except for breathing occasional palpitations. The patient is also having difficulty dealing with his physical problems. Apparently, he is also on his foot and the patient also admits to having problems with pain. The patient is not able to ambulate. CURRENT MEDICATIONS: Include Lamictal 100 mg plus 75 mg at night, trazodone 100 mg at night p.r.n., bupropion 300 mg daily and Abilify 7.5 mg daily and Cymbalta 60 mg daily. He is not having any side effects. LABORATORY DATA: Reviewed. ASSESSMENT: 1. Major depression, recurrent. 2. Generalized anxiety disorder. PLAN: To continue with treatment. LENGTH OF STAY: Five to seven days. MAREN/IRWIN DR: Gregory TID: [id number]
[2021-07-04] MEDS: ACETAMINOPHEN 325 MG TABLET PO PRN ×2 (14:09→21:07)
[2021-07-04 15:35] VITALS: BP 105/68
[2021-07-04] MEDS: traZODone 100 MG TABLET. PO SCH (19:37)
[2021-07-04] MEDS: MAG HYDROX/AL HYDROX/SIMETH 30 ML ORAL.SUSP PO PRN (19:37)
[2021-07-04] MEDS: lamoTRIgine 100 MG TABLET. PO SCH (19:38)
[2021-07-04] MEDS: DOXEPIN HCL 10 MG CAPSULE PO SCH (19:38)
[2021-07-04] MEDS: ATORVASTATIN CALCIUM 20 MG TABLET PO SCH (19:39)
[2021-07-05] MEDS: traZODone 100 MG TABLET. PO PRN ×2 (01:26→22:40)
[2021-07-05 05:45] VITALS: BP 125/85
[2021-07-05] MEDS: INSULIN LISPRO 300 UNITS/3 ML VIAL. SQ SCH ×3 (07:30→16:30)
[2021-07-05] MEDS: CLOPIDOGREL BISULFATE 75 MG TABLET PO SCH (07:59)
[2021-07-05] MEDS: POTASSIUM CHLORIDE 10 MEQ TABLET.ER. PO SCH (07:59)
[2021-07-05] MEDS: DULoxetine HCL 30 MG CAPSULE.DR PO SCH (08:00)
[2021-07-05] MEDS: MULTIVITAMIN with MINERAL TABLET. PO SCH (08:00)
[2021-07-05] MEDS: FUROSEMIDE 40 MG TABLET PO SCH (08:00)
[2021-07-05] MEDS: CARVEDILOL 12.5 MG TABLET PO SCH ×2 (08:00→20:27)
[2021-07-05] MEDS: buPROPion XL 300 MG TAB.ER.24H. PO SCH (08:01)
[2021-07-05] MEDS: ARIPiprazole 10 MG TABLET PO SCH (08:01)
[2021-07-05] MEDS: ASPIRIN CHEWABLE 81 MG TABLET. PO SCH (08:01)
[2021-07-05] MEDS: LINAGLIPTIN 5 MG TABLET PO SCH (08:01)
[2021-07-05] MEDS: DOCUSATE SODIUM 100 MG CAPSULE PO SCH ×2 (08:01→20:26)
[2021-07-05] MEDS: NYSTATIN TOPICAL POWDER 15GM BOTTLE. TP SCH ×2 (08:40→20:27)
[2021-07-05 15:37] VITALS: BP 117/76
[2021-07-05] MEDS: traZODone 100 MG TABLET. PO SCH (20:25)
[2021-07-05] MEDS: lamoTRIgine 100 MG TABLET. PO SCH (20:26)
[2021-07-05] MEDS: DOXEPIN HCL 10 MG CAPSULE PO SCH (20:26)
[2021-07-05] MEDS: ATORVASTATIN CALCIUM 20 MG TABLET PO SCH (20:26)
[2021-07-05] MEDS: oxyCODONE/APAP 10/325 1 TAB TABLET PO PRN (22:40)
--- NOTE | 2021-07-06 02:57 | PN ---
DATE: 07/05/2021 SUBJECTIVE: The patient was seen today, met with the staff, chart reviewed and also covering for Dr. Jacobs. Staff reports slight improvement with his behavior, but continues to be demanding, attention seeking. He is medication compliant. The patient also ____ with this thinking, tend to be impulsive with his behaviors at times. Staff also reports he was intensely placed himself on the floor during lunch. OBSERVATIONS: VITAL SIGNS: Temperature 97.3, blood pressure 125/85, pulse 95, respirations 20, O2 sat 95%. The patient did not get much sleep last night. LABORATORY DATA: The patient's lab reviewed. CURRENT MEDICATIONS: The patient's current medications include Lamictal 100 mg plus 75 mg at night, trazodone 100 mg at night p.r.n. He is also on Cymbalta 60 mg daily, bupropion 300 mg daily and Abilify 7.5 mg daily. The patient is not having any side effects to medications. ASSESSMENT: 1. Cognitive major depression, recurrent. 2. Generalized anxiety disorder. PLAN: To continue with treatment. LENGTH OF STAY: 5 to 7 days. ANIYA/CLAUDIA DR: Gregory TID: [id number]
[2021-07-06 05:41] VITALS: BP 106/68
[2021-07-06] MEDS: INSULIN LISPRO 300 UNITS/3 ML VIAL. SQ SCH ×3 (07:30→16:30)
[2021-07-06] MEDS: FUROSEMIDE 40 MG TABLET PO SCH (07:47)
[2021-07-06] MEDS: LINAGLIPTIN 5 MG TABLET PO SCH (07:47)
[2021-07-06] MEDS: MULTIVITAMIN with MINERAL TABLET. PO SCH (07:47)
[2021-07-06] MEDS: buPROPion XL 300 MG TAB.ER.24H. PO SCH (07:47)
[2021-07-06] MEDS: CLOPIDOGREL BISULFATE 75 MG TABLET PO SCH (07:48)
[2021-07-06] MEDS: ASPIRIN CHEWABLE 81 MG TABLET. PO SCH (07:48)
[2021-07-06] MEDS: DULoxetine HCL 30 MG CAPSULE.DR PO SCH (07:48)
[2021-07-06] MEDS: CARVEDILOL 12.5 MG TABLET PO SCH ×2 (07:48→20:15)
[2021-07-06] MEDS: POTASSIUM CHLORIDE 10 MEQ TABLET.ER. PO SCH (07:48)
[2021-07-06] MEDS: ARIPiprazole 10 MG TABLET PO SCH (07:48)
[2021-07-06] MEDS: DOCUSATE SODIUM 100 MG CAPSULE PO SCH ×2 (07:48→20:15)
[2021-07-06] MEDS: NYSTATIN TOPICAL POWDER 15GM BOTTLE. TP SCH ×2 (08:57→20:17)
[2021-07-06 15:52] VITALS: BP 124/87
[2021-07-06] MEDS: ATORVASTATIN CALCIUM 20 MG TABLET PO SCH (20:15)
[2021-07-06] MEDS: lamoTRIgine 100 MG TABLET. PO SCH (20:15)
[2021-07-06] MEDS: traZODone 150 MG TABLET. PO SCH (20:17)
[2021-07-06] MEDS: DOXEPIN HCL 10 MG CAPSULE PO SCH (20:17)
--- NOTE | 2021-07-06 21:26 | PN ---
DATE: 07/06/2021 SUBJECTIVE: The patient was seen today, met with the staff, chart reviewed. Also, covering for Dr. Jacobs. The patient apparently had problems last night. He was found putting his oxygen tubing around his neck and staff confronted him about his behavior. Apparently, he denied, but the patient has had behaviors like this before and it was decided to put him on 1:1. The patient also frequently falling to the floor and calling out for help. OBSERVATION: VITAL SIGNS: Temperature 97.5, blood pressure 106/68, pulse 89, respirations 24, O2 sat 97%. GENERAL: Slept about 5 hours last night. CURRENT MEDICATIONS: The patient's current medications include Cymbalta 60 mg daily, Abilify 10 mg daily, Wellbutrin-XL 300 mg daily, Lamictal 100 mg daily, doxepin 10 mg at night. The patient is also on trazodone 150 mg at night and 100 mg p.r.n. for sleep. The patient continues to have problems with sleep. His appetite decreased. LABORATORY DATA: The patient's lab reviewed. ASSESSMENT: 1. Major neurocognitive disorder with the depression. 2. Generalized anxiety disorder. PLAN: To continue with the treatment. The patient's medications reviewed. The patient's trazodone was increased to 250 mg at night with no p.r.n. Abilify was increased to 15 mg at night. LENGTH OF STAY: Five to seven days. JUAN PABLO DR: Gregory TID: [id number]
[2021-07-06] MEDS: oxyCODONE/APAP 10/325 1 TAB TABLET PO PRN (21:46)
[2021-07-07 05:24] VITALS: BP 105/59
[2021-07-07] MEDS: CLOPIDOGREL BISULFATE 75 MG TABLET PO SCH (07:29)
[2021-07-07] MEDS: DULoxetine HCL 30 MG CAPSULE.DR PO SCH (07:29)
[2021-07-07] MEDS: buPROPion XL 300 MG TAB.ER.24H. PO SCH (07:30)
[2021-07-07] MEDS: ASPIRIN CHEWABLE 81 MG TABLET. PO SCH (07:30)
[2021-07-07] MEDS: DOCUSATE SODIUM 100 MG CAPSULE PO SCH ×2 (07:30→20:36)
[2021-07-07] MEDS: LINAGLIPTIN 5 MG TABLET PO SCH (07:30)
[2021-07-07] MEDS: INSULIN LISPRO 300 UNITS/3 ML VIAL. SQ SCH ×3 (07:30→17:00)
[2021-07-07] MEDS: FUROSEMIDE 40 MG TABLET PO SCH (07:30)
[2021-07-07] MEDS: MULTIVITAMIN with MINERAL TABLET. PO SCH (07:30)
[2021-07-07] MEDS: CARVEDILOL 12.5 MG TABLET PO SCH ×2 (07:31→20:36)
[2021-07-07] MEDS: POTASSIUM CHLORIDE 10 MEQ TABLET.ER. PO SCH (07:31)
[2021-07-07] MEDS: NYSTATIN TOPICAL POWDER 15GM BOTTLE. TP SCH ×2 (07:33→20:36)
[2021-07-07] MEDS: ARIPiprazole 15 MG TABLET PO SCH (07:33)
--- NOTE | 2021-07-07 11:58 | PN ---
DATE: 07/07/2021 SUBJECTIVE: The patient was seen today, met with the staff, chart reviewed. The patient's behavior remains the same, fluctuating, increased anxiety. Complains of having panic attacks, difficulty breathing and also attention seeking and apparently some discomfort because of multiple wounds including fairly deep ulcer on his ankle and also apparently bruises easily when he turns around in bed. OBSERVATION: VITAL SIGNS: Temperature 97.1, blood pressure 105/59, pulse 98, respirations 22, O2 sat 91%. GENERAL: Slept about 1 hour last night. LABORATORY DATA: The patient's lab reviewed. CURRENT MEDICATIONS: Include Cymbalta 60 mg daily, Abilify 10 mg daily, Wellbutrin XL 300 mg daily, Lamictal 100 mg daily and doxepin 10 mg at night. The patient is also on trazodone 250 mg at night for sleep. The patient's Abilify was increased to 15 mg yesterday. ASSESSMENT: 1. Major neurocognitive disorder with depression. 2. Generalized anxiety disorder. PLAN: To continue treatment. LENGTH OF STAY: Five to seven days. JENNIFER DR: Gregory TID: [id number]
[2021-07-07] MEDS ORDERED: DEXTROSE 50% 25 GM / 50ML DISP.SYRIN. IV PRN (12:00)
--- NOTE | 2021-07-07 14:42 | TX PLAN ---
Interdisciplinary Tx Plan Admission Information Jun 19, 2021 at 16:45 Legal Status (on Admission): Voluntary DPOA/Guardian Name: SonSharri Maravilla (not enacted at this time as pt is a self sign) Contact Other Contact Name: Luanne Boyle Contact Verified Code Status: Full Code Allergies: Coded Allergies: No Known Drug Allergies (Unverified , 04/25/21) Diagnoses Primary Diagnosis: 1) Major depressive disorder, recurrent, severe with psychotic features (2) Impulse control disorder, unspecified (3) Personality disorder, unspecified (4) Anxiety disorder, unspecified Problem in Patient's Words: I am terribly depressed and anxious. Additional Admission Comments: Per intake pt is depressed, anxious, not eating to tank blood sugar to kill himself, put himself on the floor seven times over a weekend, verbally aggressive toward staff, SI, and texted his son expressing plan to end his life. Problems Active Problems: Pt denies SI, but continues to demonstrate anxiety and depression and has a lack of interest. Pt has been banging his head with his hand. Inactive Problems: Pt has not put himself on the floor. Pt Strengths/Limitations Ability for [place]: Poor Cognitive Functioning/Ability: Good Communication Skills/Ability: Good Financial Resources: Good Insight/Judgement: Poor Intellectual Ability: Good Physical Health: Poor Social Skills: Fair Stability in Family: Fair Stability in School/Work: Fair Verbal Skills: Good Discharge Criteria Discharge Criteria: Able meet basic life need, No need for close observ., Adequate arrangements @DC, Adequate self-care, Verbal commit med comply, Improved behavior, Improved mood/thought Preliminary Discharge Plan Preliminary DC Plan: Current Living Arrange. Other Arrangements: Pt facility is looking for an alternate placement, but will accept him back Special Precautions Fall Risk: High Initial D/C Plan Pt to return to [facility]. Facility is looking for an alternate placement, but will accept him back at time of discharge. Identified Discharge Needs: None at this time. Currently Utilized Resources Currently Utilized Resources/P: PCP-Dr. Daisy Sanchez Psychiatrist-Dr. Ashley Pichardo NP DPOA (not currently enacted)-Hema Maravilla Referrals Community Resources: None at this time. Identified Problems/Hx/Goals Objectives/Short-Term Goals Short Term Goals in Patient's: Need help feeling less depressed and anxious. Interventions/Frequency Staff Interventions/Frequency&: Psychiatry to assess pt three times per week for medication management. Nursing to assess behaviors, monitor medications, and complete 15 minute checks daily. Social work to see pt at least two times weekly to aid in return to placement. Activities to encourage pt to participate in group activities daily. 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 Education: Graduated from [employer] in [place], [place]. Pt reports having taken some classes at the [facility]. Community Follow-up PCP Psychiatrist Community Provider/Family Inpu: Pt is a self sign and participated in the development of his own treatment plan. Treatment Plan Explained Patient/Um Rn had this treatment plan explained to him/her as indicated by the signature below and has been given the opportunity to ask questions and make suggestions: Date: Patient/Um Rn Signature: Status Update Update Pt is eating approximately 50% of his meals and averaging 3 hours of sleep. Pt r eportedly is not sleeping well and it is speculated that he may try to keep himself awake. Pt has been messing with the controls of his bed and put himself in a v-shape with the bed. Pt moves around in his bed a lot and struggles with breathing d/t pulmonary edema to which he has been started on Lasix for this. Staff believes that he is dehydrated. Labs will be repeated to see if he is getting too much Lasix. His UA is negative for UTI. Pt has requested diet change from puree to Dysphagia 2(ground). Pt plan for discharge is to return to [facility] at time of discharge unless alternative placement if found for him prior to that. Treatment plan completed on 07/03/21 and entered on 07/07/21. EVE CORONA Jul 07, 2021 14:42
[2021-07-07 15:31] VITALS: BP 117/76
[2021-07-07] MEDS: ATORVASTATIN CALCIUM 20 MG TABLET PO SCH (20:36)
[2021-07-07] MEDS: lamoTRIgine 100 MG TABLET. PO SCH (20:36)
[2021-07-07] MEDS: traZODone 150 MG TABLET. PO SCH (20:36)
[2021-07-07] MEDS: oxyCODONE/APAP 10/325 1 TAB TABLET PO PRN (20:38)
[2021-07-07] MEDS: DOXEPIN HCL 10 MG CAPSULE PO SCH (20:38)
[2021-07-08 06:34] VITALS: BP 123/88
[2021-07-08] MEDS: INSULIN LISPRO 300 UNITS/3 ML VIAL. SQ SCH ×3 (07:36→17:00)
[2021-07-08] MEDS: buPROPion XL 300 MG TAB.ER.24H. PO SCH (08:28)
[2021-07-08] MEDS: FUROSEMIDE 40 MG TABLET PO SCH (08:28)
[2021-07-08] MEDS: DOCUSATE SODIUM 100 MG CAPSULE PO SCH ×2 (08:28→19:32)
[2021-07-08] MEDS: MULTIVITAMIN with MINERAL TABLET. PO SCH (08:28)
[2021-07-08] MEDS: POTASSIUM CHLORIDE 10 MEQ TABLET.ER. PO SCH (08:28)
[2021-07-08] MEDS: CARVEDILOL 12.5 MG TABLET PO SCH ×2 (08:28→19:31)
[2021-07-08] MEDS: LINAGLIPTIN 5 MG TABLET PO SCH (08:29)
[2021-07-08] MEDS: CLOPIDOGREL BISULFATE 75 MG TABLET PO SCH (08:29)
[2021-07-08] MEDS: DULoxetine HCL 30 MG CAPSULE.DR PO SCH (08:29)
[2021-07-08] MEDS: ASPIRIN CHEWABLE 81 MG TABLET. PO SCH (08:29)
[2021-07-08] MEDS: ARIPiprazole 15 MG TABLET PO SCH (08:29)
[2021-07-08] MEDS: NYSTATIN TOPICAL POWDER 15GM BOTTLE. TP SCH ×2 (08:29→19:34)
[2021-07-08 16:08] VITALS: BP 132/84
[2021-07-08] MEDS: MAG HYDROX/AL HYDROX/SIMETH 30 ML ORAL.SUSP PO PRN (18:11)
[2021-07-08] MEDS: ATORVASTATIN CALCIUM 20 MG TABLET PO SCH (19:26)
[2021-07-08] MEDS: lamoTRIgine 100 MG TABLET. PO SCH (19:31)
[2021-07-08] MEDS: traZODone 150 MG TABLET. PO SCH (19:32)
[2021-07-08] MEDS: DOXEPIN HCL 10 MG CAPSULE PO SCH (19:32)
--- NOTE | 2021-07-09 02:51 | PN ---
DATE: 07/08/2021 SUBJECTIVE: The patient was seen today, met with the staff, chart reviewed and also covering for Dr. Jacobs. Staff reports significant improvement with his behavior, pleasant, did not make any suicidal statements and he continues to be on 1:1. OBSERVATION: VITAL SIGNS: Temperature 98.2, blood pressure 123/88, pulse 90, respirations 20, O2 sat 98%. GENERAL: Slept about 6 hours last night. LABORATORY DATA: The patient's lab reviewed. CURRENT MEDICATIONS: The patient's current medications include Cymbalta 60 mg daily, Abilify 10 mg daily, Wellbutrin 300 mg daily, Lamictal 100 mg daily and doxepin 10 mg at night. The patient is also on trazodone 250 mg at night for sleep. The patient's Abilify was increased to 15 mg 2 days ago. The patient is not having any major side effects to medications. ASSESSMENT: 1. Major neurocognitive disorder with depression. 2. Generalized anxiety disorder. PLAN: To continue treatment. LENGTH OF STAY: Five to seven days. DAVONTE DR: Gregory TID: [id number]
[2021-07-09 05:58] VITALS: BP 158/83
[2021-07-09] MEDS: INSULIN LISPRO 300 UNITS/3 ML VIAL. SQ SCH ×3 (07:40→16:46)
[2021-07-09] MEDS: ARIPiprazole 15 MG TABLET PO SCH (08:03)
[2021-07-09] MEDS: FUROSEMIDE 40 MG TABLET PO SCH (08:04)
[2021-07-09] MEDS: CLOPIDOGREL BISULFATE 75 MG TABLET PO SCH (08:04)
[2021-07-09] MEDS: ASPIRIN CHEWABLE 81 MG TABLET. PO SCH (08:04)
[2021-07-09] MEDS: CARVEDILOL 12.5 MG TABLET PO SCH ×2 (08:04→20:15)
[2021-07-09] MEDS: POTASSIUM CHLORIDE 10 MEQ TABLET.ER. PO SCH (08:05)
[2021-07-09] MEDS: MULTIVITAMIN with MINERAL TABLET. PO SCH (08:05)
[2021-07-09] MEDS: LINAGLIPTIN 5 MG TABLET PO SCH (08:05)
[2021-07-09] MEDS: DOCUSATE SODIUM 100 MG CAPSULE PO SCH ×2 (08:05→20:14)
[2021-07-09] MEDS: NYSTATIN TOPICAL POWDER 15GM BOTTLE. TP SCH ×2 (08:05→20:15)
[2021-07-09] MEDS: buPROPion XL 300 MG TAB.ER.24H. PO SCH (08:05)
[2021-07-09] MEDS: DULoxetine HCL 30 MG CAPSULE.DR PO SCH (08:05)
[2021-07-09 15:25] VITALS: BP 132/90
[2021-07-09] MEDS: ATORVASTATIN CALCIUM 20 MG TABLET PO SCH (20:14)
[2021-07-09] MEDS: lamoTRIgine 100 MG TABLET. PO SCH (20:14)
[2021-07-09] MEDS: MIRTAZAPINE 7.5 MG TABLET. PO SCH (20:15)
[2021-07-09] MEDS: DOXEPIN HCL 10 MG CAPSULE PO SCH (20:16)
[2021-07-09] MEDS: traZODone 100 MG TABLET. PO SCH (20:16)
--- NOTE | 2021-07-10 02:38 | PN ---
DATE: 07/09/2021 DATE OF SERVICE: 07/09/2021 SUBJECTIVE: The patient was seen today, met with the staff, chart reviewed. Also, covering for Dr. Jacobs. Staff reports that he is not sleeping at all at night, tends to sleep during the daytime. The patient is able to stay in the activity room mostly pleasant, not aggressive, and able to follow directions. The patient admits he has been diagnosed with sleep apnea in the past, but never used the CPAP machine because they could not find the right fit for him. The patient's O2 saturation is reasonable at 93%. OBSERVATION: VITAL SIGNS: Temperature 97.5, blood pressure 158/83, pulse 105, respirations 20, O2 saturation 93%. GENERAL: Slept about 5 hours last night. The patient's appetite improved. LABORATORY DATA: The patient's lab reviewed. CURRENT MEDICATIONS: Remain the same, Cymbalta 60 mg daily, trazodone was decreased to 100 mg at night, Abilify 15 mg daily, Zyprexa Zydis 2.5 mg q. 2 hours p.r.n., Wellbutrin XL 300 mg daily, Lamictal 100 mg daily, doxepin 10 mg at night. Staff is concerned patient's inability to sleep and then agreed to make some changes. We will decrease the trazodone to 100 mg at night and also start on trazodone 50 mg at night p.r.n. for sleep and also start on Remeron 22.5 mg at night. ASSESSMENT: 1. Major depressive disorder, recurrent. 2. Anxiety disorder, unspecified. 3. Impulse control disorder, unspecified. PLAN: Continue with the treatment. LENGTH OF STAY: Five to seven days. MAREN/GUSTAVO/RENEA DR: MAREN/luis TID: [id number]
[2021-07-10 06:01] VITALS: BP 145/96
[2021-07-10] MEDS: INSULIN LISPRO 300 UNITS/3 ML VIAL. SQ SCH ×3 (07:26→16:56)
[2021-07-10] MEDS: CLOPIDOGREL BISULFATE 75 MG TABLET PO SCH (08:38)
[2021-07-10] MEDS: POTASSIUM CHLORIDE 10 MEQ TABLET.ER. PO SCH (08:38)
[2021-07-10] MEDS: FUROSEMIDE 40 MG TABLET PO SCH (08:38)
[2021-07-10] MEDS: ARIPiprazole 15 MG TABLET PO SCH (08:38)
[2021-07-10] MEDS: ASPIRIN CHEWABLE 81 MG TABLET. PO SCH (08:38)
[2021-07-10] MEDS: MULTIVITAMIN with MINERAL TABLET. PO SCH (08:39)
[2021-07-10] MEDS: NYSTATIN TOPICAL POWDER 15GM BOTTLE. TP SCH ×2 (08:39→20:45)
[2021-07-10] MEDS: DOCUSATE SODIUM 100 MG CAPSULE PO SCH ×2 (08:39→20:43)
[2021-07-10] MEDS: buPROPion XL 300 MG TAB.ER.24H. PO SCH (08:39)
[2021-07-10] MEDS: DULoxetine HCL 30 MG CAPSULE.DR PO SCH (08:39)
[2021-07-10] MEDS: LINAGLIPTIN 5 MG TABLET PO SCH (08:39)
[2021-07-10] MEDS: CARVEDILOL 12.5 MG TABLET PO SCH ×2 (08:39→20:44)
--- NOTE | 2021-07-10 12:15 | TX PLAN ---
Interdisciplinary Tx Plan Admission Information Jun 19, 2021 at 16:45 Legal Status (on Admission): Voluntary DPOA/Guardian Name: SonSharri Maravilla (not enacted at this time as pt is a self sign) Contact Other Contact Name: Luanne Boyle Contact Verified Code Status: Full Code Allergies: Coded Allergies: No Known Drug Allergies (Unverified , 04/25/21) Diagnoses Primary Diagnosis: 1) Major depressive disorder, recurrent, severe with psychotic features (2) Impulse control disorder, unspecified (3) Personality disorder, unspecified (4) Anxiety disorder, unspecified Problem in Patient's Words: I am terribly depressed and anxious. Additional Admission Comments: Per intake pt is depressed, anxious, not eating to tank blood sugar to kill himself, put himself on the floor seven times over a weekend, verbally aggressive toward staff, SI, and texted his son expressing plan to end his life. Problems Active Problems: Pt denies SI, but continues to demonstrate anxiety and depression and has a lack of interest. Pt has been banging his head with his hand. Inactive Problems: Pt has not put himself on the floor. Pt Strengths/Limitations Ability for [place]: Poor Cognitive Functioning/Ability: Good Communication Skills/Ability: Good Financial Resources: Good Insight/Judgement: Poor Intellectual Ability: Good Physical Health: Poor Social Skills: Fair Stability in Family: Fair Stability in School/Work: Fair Verbal Skills: Good Discharge Criteria Discharge Criteria: Able meet basic life need, No need for close observ., Adequate arrangements @DC, Adequate self-care, Verbal commit med comply, Improved behavior, Improved mood/thought Preliminary Discharge Plan Preliminary DC Plan: Current Living Arrange. Other Arrangements: Pt facility is looking for an alternate placement, but will accept him back Special Precautions Fall Risk: High Initial D/C Plan Pt to return to [facility]. Facility is looking for an alternate placement, but will accept him back at time of discharge. Identified Discharge Needs: None at this time. Currently Utilized Resources Currently Utilized Resources/P: PCP-Dr. Daisy Sanchez Psychiatrist-Dr. Ashley Pichardo NP DPOA (not currently enacted)-Hema Maravilla Referrals Community Resources: None at this time. Identified Problems/Hx/Goals Objectives/Short-Term Goals Short Term Goals in Patient's: Need help feeling less depressed and anxious. Interventions/Frequency Staff Interventions/Frequency&: Psychiatry to assess pt three times per week for medication management. Nursing to assess behaviors, monitor medications, and complete 15 minute checks daily. Social work to see pt at least two times weekly to aid in return to placement. Activities to encourage pt to participate in group activities daily. 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 Education: Graduated from [employer] in [place], [place]. Pt reports having taken some classes at the [facility]. Community Follow-up PCP Psychiatrist Community Provider/Family Inpu: Pt is a self sign and participated in the development of his own treatment plan. Treatment Plan Explained Patient/Aeronautical Drafter had this treatment plan explained to him/her as indicated by the signature below and has been given the opportunity to ask questions and make suggestions: Date: Patient/Aeronautical Drafter Signature: Status Update Update Pt continues to eat about 50% of his meals and is averaging 4.5 hours of sleep. It appears that he is having some broken sleep patterns. There is a concern that there may be a decrease in mental confusion and an overall decrease medically. This will continue to be monitored. It is reported that he uses a CPAP when at his facility, but he reports that it does not fit properly and therefore the nasal cannula works better. Pt needs ongoing encouragement to do things for himself as he often displays helplessness. Pt plan for discharge is to return to [facility] at time of discharge unless alternative placement if found for him prior to that. EVE CORONA Jul 10, 2021 12:15
[2021-07-10 15:05] VITALS: BP 141/89
--- NOTE | 2021-07-10 20:16 | PN ---
DATE: 07/10/2021 SUBJECTIVE: The patient was seen today, met with the staff, chart reviewed also participated in the treatment review conference today. Staff reports some improvement with his behavior, tends to be emotional at times and also having difficulty talking about his problems. The patient is able to follow directions, some improvement with his cooperation with ADLs. He has not shown any aggressive behaviors lately. OBSERVATION: VITAL SIGNS: Stable. GENERAL: The patient is slept about 4-1/2 hours last night compared to previous where he was not getting not even 1-2 hours of sleep. Apparently responded well to medication change. LABORATORY DATA: The patient's lab reviewed. CURRENT MEDICATIONS: The patient's current medications include mirtazapine 22.5 mg at night, trazodone 100 mg at night, and trazodone 50 mg at night p.r.n. Abilify 15 mg daily, Lamictal 100 mg at night, doxepin 10 mg at night, bupropion 300 mg daily, Cymbalta 60 mg daily, olanzapine 2.5 mg q. 2 hours p.r.n. The patient is not having any side effects to medications. ASSESSMENT: 1. Major depressive disorder, recurrent. 2. Anxiety disorder, unspecified. 3. Impulse control disorder, unspecified. PLAN: Continue with treatment. The patient is awaiting for placement. ALISHA DR: Gregory TID: [id number]
[2021-07-10] MEDS: traZODone 100 MG TABLET. PO SCH (20:43)
[2021-07-10] MEDS: MIRTAZAPINE 7.5 MG TABLET. PO SCH (20:44)
[2021-07-10] MEDS: DOXEPIN HCL 10 MG CAPSULE PO SCH (20:44)
[2021-07-10] MEDS: lamoTRIgine 100 MG TABLET. PO SCH (20:44)
[2021-07-10] MEDS: ATORVASTATIN CALCIUM 20 MG TABLET PO SCH (20:44)
[2021-07-11 05:56] VITALS: BP 138/97
[2021-07-11 06:57] LABS: BASO # 0.1 x10^3/uL (0.0-0.2); BASO % 1 % (0-3); EOS # 0.2 x10^3/uL (0.0-0.7); EOS % 2 % (0-3); HEMATOCRIT 35.6 % (39.0-53.0); HEMOGLOBIN 11.5 g/dL (13.0-17.5); LYMPH # 0.7 x10^3/uL (1.0-4.8); LYMPH % 7 % (24-48); MEAN CORPUSCULAR HEMOGLOBIN 31 pg (25-35); MEAN CORPUSCULAR HGB CONC 32 g/dL (31-37); MEAN CORPUSCULAR VOLUME 96 fL (79-100); MONO % 10 % (0-9); NEUT % 81 % (31-73); PLATELET COUNT 322 x10^3/uL (140-400); RED CELL DISTRIBUTION WIDTH 18.1 % (11.5-14.5); WHITE BLOOD COUNT 9.9 x10^3/uL (4.0-11.0)
[2021-07-11 07:19] LABS: ALBUMIN 2.9 g/dL (3.4-5.0); ALBUMIN/GLOBULIN RATIO 0.8 (1.0-1.7); CALCIUM 8.5 mg/dL (8.5-10.1); CREATININE 1.1 mg/dL (0.7-1.3); GFR 66.8; POTASSIUM 4.3 mmol/L (3.5-5.1); TOTAL BILIRUBIN 0.9 mg/dL (0.2-1.0); TOTAL PROTEIN 6.5 g/dL (6.4-8.2)
[2021-07-11] MEDS: DOCUSATE SODIUM 100 MG CAPSULE PO SCH ×2 (08:29→20:15)
[2021-07-11] MEDS: MULTIVITAMIN with MINERAL TABLET. PO SCH (08:29)
[2021-07-11] MEDS: ARIPiprazole 15 MG TABLET PO SCH (08:29)
[2021-07-11] MEDS: POTASSIUM CHLORIDE 10 MEQ TABLET.ER. PO SCH (08:29)
[2021-07-11] MEDS: LINAGLIPTIN 5 MG TABLET PO SCH (08:30)
[2021-07-11] MEDS: buPROPion XL 300 MG TAB.ER.24H. PO SCH (08:30)
[2021-07-11] MEDS: CLOPIDOGREL BISULFATE 75 MG TABLET PO SCH (08:30)
[2021-07-11] MEDS: FUROSEMIDE 40 MG TABLET PO SCH (08:30)
[2021-07-11] MEDS: DULoxetine HCL 30 MG CAPSULE.DR PO SCH (08:30)
[2021-07-11] MEDS: ASPIRIN CHEWABLE 81 MG TABLET. PO SCH (08:30)
[2021-07-11] MEDS: NYSTATIN TOPICAL POWDER 15GM BOTTLE. TP SCH ×2 (08:30→20:13)
[2021-07-11] MEDS: CARVEDILOL 12.5 MG TABLET PO SCH ×2 (08:30→20:16)
[2021-07-11] MEDS: INSULIN LISPRO 300 UNITS/3 ML VIAL. SQ SCH ×3 (08:34→17:00)
[2021-07-11 15:28] VITALS: BP 110/60
[2021-07-11] MEDS: MIRTAZAPINE 7.5 MG TABLET. PO SCH (20:13)
[2021-07-11] MEDS: traZODone 50 MG TABLET. PO PRN (20:14)
[2021-07-11] MEDS: lamoTRIgine 100 MG TABLET. PO SCH (20:15)
[2021-07-11] MEDS: traZODone 100 MG TABLET. PO SCH (20:16)
[2021-07-11] MEDS: DOXEPIN HCL 10 MG CAPSULE PO SCH (20:16)
[2021-07-11] MEDS: ATORVASTATIN CALCIUM 20 MG TABLET PO SCH (20:17)
--- NOTE | 2021-07-11 23:00 | PN ---
DATE: 07/11/2021 SUBJECTIVE: The patient was seen today, met with the staff, chart reviewed and also covering for Dr. Jacobs. The patient continues to have behavioral problems. Apparently, he put himself to the floor twice and also attention seeking, presenting with a lot of symptoms including heavy breathing when the staff approaches him. Staff reports decreased appetite. He weighed 144.3 kg, now it is 142. The patient otherwise is not showing any major behavioral problems. He is not aggressive and he is not angry, mostly passive aggressive behaviors. OBSERVATION: VITAL SIGNS: Temperature 97.2, blood pressure 138/97, pulse 100, respirations 20, O2 sat 95%. Slept only about 2.5 hours last night. GENERAL: The patient's appetite decreased. CURRENT MEDICATIONS: The patient's current medications include mirtazapine 22.5 mg at night, trazodone 100 mg at night, and also trazodone 50 mg at night p.r.n., Abilify 15 mg daily, Lamictal 100 mg at night, bupropion 300 mg daily, and Cymbalta 60 mg daily. The patient is also on doxepin 10 mg at night and p.r.n. olanzapine. The patient is not having any side effects. LABORATORY DATA: The patient's lab reviewed. ASSESSMENT: 1. Major depressive disorder, recurrent. 2. Anxiety disorder, unspecified. 3. Impulse control disorder, unspecified. PLAN: To continue with treatment. LENGTH OF STAY: 5-[address]: Gregory TID: [id number]
[2021-07-12 05:57] VITALS: BP 165/97
[2021-07-12] MEDS: INSULIN LISPRO 300 UNITS/3 ML VIAL. SQ SCH ×3 (08:00→17:00)
[2021-07-12] MEDS: ASPIRIN CHEWABLE 81 MG TABLET. PO SCH (08:03)
[2021-07-12] MEDS: CARVEDILOL 12.5 MG TABLET PO SCH ×2 (08:03→19:45)
[2021-07-12] MEDS: DOCUSATE SODIUM 100 MG CAPSULE PO SCH ×2 (08:03→19:44)
[2021-07-12] MEDS: ARIPiprazole 15 MG TABLET PO SCH (08:03)
[2021-07-12] MEDS: FUROSEMIDE 40 MG TABLET PO SCH (08:03)
[2021-07-12] MEDS: LINAGLIPTIN 5 MG TABLET PO SCH (08:04)
[2021-07-12] MEDS: CLOPIDOGREL BISULFATE 75 MG TABLET PO SCH (08:04)
[2021-07-12] MEDS: MULTIVITAMIN with MINERAL TABLET. PO SCH (08:04)
[2021-07-12] MEDS: buPROPion XL 300 MG TAB.ER.24H. PO SCH (08:04)
[2021-07-12] MEDS: DULoxetine HCL 30 MG CAPSULE.DR PO SCH (08:04)
[2021-07-12] MEDS: POTASSIUM CHLORIDE 10 MEQ TABLET.ER. PO SCH (08:04)
[2021-07-12] MEDS: NYSTATIN TOPICAL POWDER 15GM BOTTLE. TP SCH ×2 (09:05→19:44)
[2021-07-12 15:50] VITALS: BP 137/77
[2021-07-12] MEDS: lamoTRIgine 100 MG TABLET. PO SCH (19:44)
[2021-07-12] MEDS: traZODone 100 MG TABLET. PO SCH (19:45)
[2021-07-12] MEDS: MIRTAZAPINE 30 MG TABLET PO SCH (19:48)
[2021-07-12] MEDS: ATORVASTATIN CALCIUM 20 MG TABLET PO SCH (19:48)
[2021-07-13 06:26] VITALS: BP 162/85
[2021-07-13] MEDS: INSULIN LISPRO 300 UNITS/3 ML VIAL. SQ SCH ×3 (08:00→17:29)
[2021-07-13] MEDS: CARVEDILOL 12.5 MG TABLET PO SCH ×3 (08:31→19:52)
[2021-07-13] MEDS: DOCUSATE SODIUM 100 MG CAPSULE PO SCH ×3 (08:31→19:53)
[2021-07-13] MEDS: ASPIRIN CHEWABLE 81 MG TABLET. PO SCH ×2 (08:31→08:40)
[2021-07-13] MEDS: ARIPiprazole 15 MG TABLET PO SCH ×2 (08:31→08:40)
[2021-07-13] MEDS: MULTIVITAMIN with MINERAL TABLET. PO SCH ×2 (08:32→08:40)
[2021-07-13] MEDS: LINAGLIPTIN 5 MG TABLET PO SCH ×2 (08:32→08:40)
[2021-07-13] MEDS: CLOPIDOGREL BISULFATE 75 MG TABLET PO SCH ×2 (08:32→08:40)
[2021-07-13] MEDS: FUROSEMIDE 40 MG TABLET PO SCH ×2 (08:32→08:40)
[2021-07-13] MEDS: buPROPion XL 150 MG TAB.ER.24H PO SCH ×2 (08:32→08:40)
[2021-07-13] MEDS: DULoxetine HCL 30 MG CAPSULE.DR PO SCH ×3 (08:33→12:17)
[2021-07-13] MEDS: POTASSIUM CHLORIDE 10 MEQ TABLET.ER. PO SCH ×2 (08:33→08:40)
[2021-07-13] MEDS: NYSTATIN TOPICAL POWDER 15GM BOTTLE. TP SCH ×2 (09:00→19:52)
[2021-07-13] MEDS: MAG HYDROX/AL HYDROX/SIMETH 30 ML ORAL.SUSP PO PRN (12:16)
--- NOTE | 2021-07-13 13:57 | PN ---
DATE: 07/13/2021 SUBJECTIVE: The patient was seen today, met with the staff, chart reviewed. The patient appears to be in a good mood today, able to hold a conversation. The patient states that he has been having physical problems, apparently threw up 3 times today and having stomach problems. OBSERVATION: VITAL SIGNS: Temperature 96.8, blood pressure refused, pulse 102, respirations 22, O2 sat 92%. GENERAL: Slept about 4 hours last night. The patient's appetite normal. The patient has not presented with any major behavior problems, except sliding to the floor intentionally. CURRENT MEDICATIONS: Include Cymbalta 60 mg in the morning and 30 mg in the afternoon, bupropion 150 mg daily, mirtazapine 30 mg at night, trazodone 100 mg at night and also 50 mg at night p.r.n., Abilify 15 mg daily, Lamictal 100 mg at night, olanzapine 2.5 mg q. 2 hours p.r.n. for psychosis. The patient is not having any side effects to medications. ASSESSMENT: 1. Major depressive disorder, recurrent. 2. Anxiety disorder, unspecified. 3. Impulse control disorder, unspecified. PLAN: To continue with the treatment. LENGTH OF STAY: Five to seven days. JENNIFER DR: Gregory TID: [id number]
--- NOTE | 2021-07-13 13:57 | PN ---
DATE: 07/12/2021 This is a late entry for the service date 07/12/2021 by [employer]. HISTORY: The patient was evaluated today, discussed with the staff and chart reviewed. Staff reports continued behavior problems at putting himself to the floor and because of his morbid obesity he is not able to get up on his own and staff have to struggle to get him back to the bed. The patient does it frequently, but the patient cannot explain why he is doing that, but staff reports it is mostly for attention seeking and also when staff approaches him, he started having panic attacks. The patient otherwise much clearer with his thinking, able to hold a conversation and states he has been depressed most of his life. He is not happy with himself. He does not know how to deal with his problems. PHYSICAL EXAMINATION: VITAL SIGNS: Temperature 96.7, blood pressure 165/97, pulse 115, respirations 22, O2 sat 97%. GENERAL: Slept about 4 hours last night. The patient has had no falls resulting in injuries. The patient tends to stay in his room most of the time. LABORATORY DATA: The patient's lab reviewed. CURRENT MEDICATIONS: Include mirtazapine 22.5 mg at night, trazodone 100 mg at night and also trazodone 50 mg at night p.r.n., Abilify 15 mg daily, Lamictal 100 mg at night and bupropion 300 mg daily, that was decreased to 150 mg daily. The patient's mirtazapine was increased to 30 mg at night. The patient is also on Cymbalta. ASSESSMENT: 1. Major depressive disorder, recurrent. 2. Anxiety disorder, unspecified. 3. Impulse control disorder, unspecified. PLAN: Continue with treatment. LENGTH OF STAY: Five to seven days. MAREN/JORGE LUIS DR: Gregory TID: [id number]
[2021-07-13 15:53] VITALS: BP 133/88
[2021-07-13] MEDS: MIRTAZAPINE 30 MG TABLET PO SCH (19:52)
[2021-07-13] MEDS: ATORVASTATIN CALCIUM 20 MG TABLET PO SCH (19:53)
[2021-07-13] MEDS: lamoTRIgine 100 MG TABLET. PO SCH (19:54)
[2021-07-13] MEDS: traZODone 100 MG TABLET. PO SCH (19:54)
[2021-07-13] MEDS: oxyCODONE/APAP 10/325 1 TAB TABLET PO PRN (20:11)
[2021-07-14] MEDS: traZODone 50 MG TABLET. PO PRN (01:35)
[2021-07-14 06:10] VITALS: BP 154/86
[2021-07-14] MEDS: INSULIN LISPRO 300 UNITS/3 ML VIAL. SQ SCH ×3 (08:00→17:50)
[2021-07-14] MEDS: ARIPiprazole 15 MG TABLET PO SCH (08:17)
[2021-07-14] MEDS: CLOPIDOGREL BISULFATE 75 MG TABLET PO SCH (08:17)
[2021-07-14] MEDS: POTASSIUM CHLORIDE 10 MEQ TABLET.ER. PO SCH (08:17)
[2021-07-14] MEDS: FUROSEMIDE 40 MG TABLET PO SCH (08:18)
[2021-07-14] MEDS: buPROPion XL 150 MG TAB.ER.24H PO SCH (08:18)
[2021-07-14] MEDS: DULoxetine HCL 30 MG CAPSULE.DR PO SCH ×2 (08:18→12:50)
[2021-07-14] MEDS: MULTIVITAMIN with MINERAL TABLET. PO SCH (08:18)
[2021-07-14] MEDS: LINAGLIPTIN 5 MG TABLET PO SCH (08:18)
[2021-07-14] MEDS: ASPIRIN CHEWABLE 81 MG TABLET. PO SCH (08:18)
[2021-07-14] MEDS: DOCUSATE SODIUM 100 MG CAPSULE PO SCH ×2 (08:18→20:13)
[2021-07-14] MEDS: CARVEDILOL 12.5 MG TABLET PO SCH ×2 (08:19→20:13)
[2021-07-14] MEDS: NYSTATIN TOPICAL POWDER 15GM BOTTLE. TP SCH ×2 (11:26→20:14)
[2021-07-14 16:20] VITALS: BP 132/81
[2021-07-14] MEDS: lamoTRIgine 100 MG TABLET. PO SCH (20:12)
[2021-07-14] MEDS: ATORVASTATIN CALCIUM 20 MG TABLET PO SCH (20:13)
[2021-07-14] MEDS: MIRTAZAPINE 30 MG TABLET PO SCH (20:13)
[2021-07-14] MEDS: traZODone 100 MG TABLET. PO SCH (20:13)
[2021-07-14] MEDS: NEOMY/BACITR/POLYMYXIN OINT PACKET. TP SCH (20:14)
--- NOTE | 2021-07-14 21:19 | PN ---
DATE: 07/14/2021 SUBJECTIVE: The patient was seen today, met with the staff. Chart was reviewed and also covering for Dr. Jacobs. Also participated in the treatment. We will repeat treatment review conference today. The patient continues to have fluctuating symptoms, unable to control his behavior at times, is very aggressive, kicking the doors and also threatening to the staff. OBSERVATION: VITAL SIGNS: Temperature 97.3, blood pressure 154/86, pulse 110, respirations 22 and O2 sat 96%. Slept about 3 hours last night. GENERAL: The patient observed to be irritable, ivey and also periods of agitation followed with withdrawn, sleeping. The patient's behavior is worse in the last 2 days. The patient apparently has not responded well to current medication regimen. CURRENT MEDICATIONS: Include mirtazapine 22.5 mg at night, trazodone 100 mg at night and trazodone 50 mg p.r.n., Abilify 15 mg. DICTATION ENDS HERE. ANIYA DR: Gregory TID: [id number]
--- NOTE | 2021-07-14 21:19 | PN ---
DATE: 07/14/2021 SUBJECTIVE: The patient was seen today. I met with the staff. Chart was reviewed. I am also covering for Dr. Jacobs. The patient continues to have problems, attention seeking, helpless, not sleeping well and also put himself on the floor today. The patient also has been verbally abusive towards the staff and residents. The patient at the time of assessment was sleeping. OBSERVATION: VITAL SIGNS: Temperature 97.3, blood pressure 154/86, pulse 110, respirations 22, O2 sat 96%. GENERAL: Slept about 4 hours last night. The patient's appetite is fair. LABORATORY DATA: The patient's lab reviewed. CURRENT MEDICATIONS: The patient's current medications include Cymbalta 60 mg daily and 30 mg daily, trazodone 100 mg at night and 50 mg at night p.r.n., Abilify 15 mg daily, Zyprexa Zydis 2.5 mg q. 2 hours p.r.n., Wellbutrin-XL 150 mg daily, Lamictal 100 mg daily, Remeron 30 mg at night, Zyprexa Zydis 2.5 mg q. 2 hours p.r.n. and Wellbutrin-XL 150 mg daily. The patient also getting Lamictal 100 mg at night and also Remeron 30 mg at night. ASSESSMENT: 1. Major depressive disorder, recurrent. 2. Anxiety disorder, unspecified. 3. Impulse control disorder, unspecified. PLAN: Continue with the treatment. LENGTH OF STAY: 5-7 days. MAREN/EKT DR: MAREN/luis TID: [id number]
[2021-07-15] MEDS: traZODone 50 MG TABLET. PO PRN (01:08)
[2021-07-15] MEDS: CARVEDILOL 12.5 MG TABLET PO SCH ×2 (05:38→21:04)
[2021-07-15 06:07] VITALS: BP 145/85
[2021-07-15] MEDS: INSULIN LISPRO 300 UNITS/3 ML VIAL. SQ SCH ×3 (08:00→17:00)
[2021-07-15] MEDS: FUROSEMIDE 40 MG TABLET PO SCH (08:27)
[2021-07-15] MEDS: ASPIRIN CHEWABLE 81 MG TABLET. PO SCH (08:27)
[2021-07-15] MEDS: ARIPiprazole 15 MG TABLET PO SCH (08:27)
[2021-07-15] MEDS: MULTIVITAMIN with MINERAL TABLET. PO SCH (08:27)
[2021-07-15] MEDS: CLOPIDOGREL BISULFATE 75 MG TABLET PO SCH (08:27)
[2021-07-15] MEDS: buPROPion XL 150 MG TAB.ER.24H PO SCH (08:27)
[2021-07-15] MEDS: LINAGLIPTIN 5 MG TABLET PO SCH (08:27)
[2021-07-15] MEDS: DOCUSATE SODIUM 100 MG CAPSULE PO SCH ×2 (08:27→21:03)
[2021-07-15] MEDS: POTASSIUM CHLORIDE 10 MEQ TABLET.ER. PO SCH (08:28)
[2021-07-15] MEDS: DULoxetine HCL 30 MG CAPSULE.DR PO SCH ×2 (08:28→12:27)
[2021-07-15] MEDS: NEOMY/BACITR/POLYMYXIN OINT PACKET. TP SCH ×2 (08:28→21:04)
[2021-07-15] MEDS: NYSTATIN TOPICAL POWDER 15GM BOTTLE. TP SCH ×2 (09:00→21:04)
[2021-07-15 15:38] VITALS: BP 123/69
[2021-07-15] MEDS: MIRTAZAPINE 30 MG TABLET PO SCH (21:03)
[2021-07-15] MEDS: lamoTRIgine 100 MG TABLET. PO SCH (21:03)
[2021-07-15] MEDS: traZODone 100 MG TABLET. PO SCH (21:03)
[2021-07-15] MEDS: ATORVASTATIN CALCIUM 20 MG TABLET PO SCH (21:04)
--- NOTE | 2021-07-15 21:48 | PN ---
DATE: 07/15/2021 SUBJECTIVE: The patient was seen today, met with the staff, chart reviewed. Staff reports continued behavior problems, periods of agitation, social withdrawal, attention seeking and not sleeping well. The patient did not put himself to the ground today. OBSERVATION: VITAL SIGNS: Temperature 97.5, blood pressure 145/85, pulse 114, respirations 22, O2 sat 95%. Slept about 3 hours last night. The patient's appetite is fair. LABORATORY DATA: The patient's lab reviewed. CURRENT MEDICATIONS: The patient's current medications include mirtazapine 22.5 mg at night, trazodone 100 mg at night, and trazodone 50 mg at night p.r.n. and Abilify 15 mg daily. ASSESSMENT: 1. Major depression, recurrent. 2. Anxiety disorder, unspecified. 3. Impulse control disorder, unspecified. PLAN: To continue with treatment. LENGTH OF STAY: Five to seven days. RUBY DR: Gregory TID: [id number]
[2021-07-16 06:21] VITALS: BP 138/92
[2021-07-16] MEDS: CLOPIDOGREL BISULFATE 75 MG TABLET PO SCH (08:35)
[2021-07-16] MEDS: buPROPion XL 150 MG TAB.ER.24H PO SCH (08:35)
[2021-07-16] MEDS: ASPIRIN CHEWABLE 81 MG TABLET. PO SCH (08:35)
[2021-07-16] MEDS: DULoxetine HCL 30 MG CAPSULE.DR PO SCH ×2 (08:35→13:52)
[2021-07-16] MEDS: MULTIVITAMIN with MINERAL TABLET. PO SCH (08:36)
[2021-07-16] MEDS: LINAGLIPTIN 5 MG TABLET PO SCH (08:36)
[2021-07-16] MEDS: POTASSIUM CHLORIDE 10 MEQ TABLET.ER. PO SCH (08:36)
[2021-07-16] MEDS: NEOMY/BACITR/POLYMYXIN OINT PACKET. TP SCH ×2 (08:36→19:51)
[2021-07-16] MEDS: ARIPiprazole 15 MG TABLET PO SCH (08:37)
[2021-07-16] MEDS: DOCUSATE SODIUM 100 MG CAPSULE PO SCH ×2 (08:37→19:50)
[2021-07-16] MEDS: FUROSEMIDE 40 MG TABLET PO SCH (08:37)
[2021-07-16] MEDS: NYSTATIN TOPICAL POWDER 15GM BOTTLE. TP SCH ×2 (08:37→19:51)
[2021-07-16] MEDS: CARVEDILOL 12.5 MG TABLET PO SCH ×2 (08:37→19:50)
[2021-07-16] MEDS: INSULIN LISPRO 300 UNITS/3 ML VIAL. SQ SCH ×3 (08:44→17:00)
[2021-07-16 15:38] VITALS: BP 111/73
[2021-07-16] MEDS: traZODone 100 MG TABLET. PO SCH (19:50)
[2021-07-16] MEDS: ATORVASTATIN CALCIUM 20 MG TABLET PO SCH (19:50)
[2021-07-16] MEDS: lamoTRIgine 100 MG TABLET. PO SCH (19:51)
[2021-07-16] MEDS: MIRTAZAPINE 30 MG TABLET PO SCH (19:51)
[2021-07-16] MEDS: MAGNESIUM HYDROXIDE 2,400 MG/30 ML ORAL.SUSP. PO PRN (19:51)
[2021-07-17 06:05] VITALS: BP 136/94
[2021-07-17] MEDS: INSULIN LISPRO 300 UNITS/3 ML VIAL. SQ SCH ×3 (08:00→17:00)
[2021-07-17] MEDS: ARIPiprazole 15 MG TABLET PO SCH (08:25)
[2021-07-17] MEDS: DOCUSATE SODIUM 100 MG CAPSULE PO SCH ×2 (08:25→20:02)
[2021-07-17] MEDS: buPROPion XL 150 MG TAB.ER.24H PO SCH (08:25)
[2021-07-17] MEDS: POTASSIUM CHLORIDE 10 MEQ TABLET.ER. PO SCH (08:25)
[2021-07-17] MEDS: NYSTATIN TOPICAL POWDER 15GM BOTTLE. TP SCH ×2 (08:26→20:04)
[2021-07-17] MEDS: NEOMY/BACITR/POLYMYXIN OINT PACKET. TP SCH ×2 (08:26→20:03)
[2021-07-17] MEDS: CLOPIDOGREL BISULFATE 75 MG TABLET PO SCH (08:26)
[2021-07-17] MEDS: DULoxetine HCL 30 MG CAPSULE.DR PO SCH ×2 (08:26→12:27)
[2021-07-17] MEDS: MULTIVITAMIN with MINERAL TABLET. PO SCH (08:26)
[2021-07-17] MEDS: FUROSEMIDE 40 MG TABLET PO SCH (08:26)
[2021-07-17] MEDS: LINAGLIPTIN 5 MG TABLET PO SCH (08:26)
[2021-07-17] MEDS: ASPIRIN CHEWABLE 81 MG TABLET. PO SCH (08:26)
[2021-07-17] MEDS: CARVEDILOL 12.5 MG TABLET PO SCH ×2 (08:26→20:03)
--- NOTE | 2021-07-17 08:29 | PN ---
DATE: 07/16/2021 SUBJECTIVE: The patient is seen today, met with the staff, chart reviewed. The patient's behavior remains the same. He continues to be demanding, multiple physical complaints and frequently placing himself on the floor. The patient has not presented with any major behavior problems, not aggressive, not depressed, not having any negative thoughts. OBSERVATION: VITAL SIGNS: Temperature 97.5, blood pressure 138/92, pulse 116, respirations 22, O2 sat 92%. GENERAL: Slept about 6 hours last night. The patient's appetite is fair. LABORATORY DATA: The patient's lab reviewed. CURRENT MEDICATIONS: The patient is also on Cymbalta 30 mg daily, bupropion 150 mg daily, mirtazapine 30 mg at night, trazodone 100 mg at night. The patient also on Lamictal 100 mg at night. The patient is not having any side effects to medications. ASSESSMENT: 1. Major depression, recurrent. 2. Anxiety disorder, unspecified. 3. Impulse control disorder, unspecified. PLAN: To continue treatment. LENGTH OF STAY: Five to seven days. CELINA/LETICIA DR: Gregory TID: [id number]
[2021-07-17] MEDS: oxyCODONE/APAP 10/325 1 TAB TABLET PO PRN (08:32)
--- NOTE | 2021-07-17 13:25 | TX PLAN ---
Interdisciplinary Tx Plan Admission Information Jun 19, 2021 at 16:45 Legal Status (on Admission): Voluntary DPOA/Guardian Name: SonSharri Maravilla (not enacted at this time as pt is a self sign) Contact Other Contact Name: Luanne Boyle Contact Verified Code Status: Full Code Allergies: Coded Allergies: No Known Drug Allergies (Unverified , 04/25/21) Diagnoses Primary Diagnosis: 1) Major depressive disorder, recurrent, severe with psychotic features (2) Impulse control disorder, unspecified (3) Personality disorder, unspecified (4) Anxiety disorder, unspecified Problem in Patient's Words: I am terribly depressed and anxious. Additional Admission Comments: Per intake pt is depressed, anxious, not eating to tank blood sugar to kill himself, put himself on the floor seven times over a weekend, verbally aggressive toward staff, SI, and texted his son expressing plan to end his life. Problems Active Problems: Pt denies SI, but continues to demonstrate anxiety and depression and has a lack of interest. Pt has been banging his head with his hand. Inactive Problems: Pt has not put himself on the floor. Pt Strengths/Limitations Ability for Tucker: Poor Cognitive Functioning/Ability: Good Communication Skills/Ability: Good Financial Resources: Good Insight/Judgement: Poor Intellectual Ability: Good Physical Health: Poor Social Skills: Fair Stability in Family: Fair Stability in School/Work: Fair Verbal Skills: Good Discharge Criteria Discharge Criteria: Able meet basic life need, No need for close observ., Adequate arrangements @DC, Adequate self-care, Verbal commit med comply, Improved behavior, Improved mood/thought Preliminary Discharge Plan Preliminary DC Plan: Current Living Arrange. Other Arrangements: Pt facility is looking for an alternate placement, but will accept him back Special Precautions Fall Risk: High Initial D/C Plan Pt to return to [facility]. Facility is looking for an alternate placement, but will accept him back at time of discharge. Identified Discharge Needs: None at this time. Currently Utilized Resources Currently Utilized Resources/P: PCP-Dr. Daisy Sanchez Psychiatrist-Dr. Ashley Pichardo NP DPOA (not currently enacted)-Hema Maravilla Referrals Community Resources: None at this time. Identified Problems/Hx/Goals Objectives/Short-Term Goals Short Term Goals in Patient's: Need help feeling less depressed and anxious. Interventions/Frequency Staff Interventions/Frequency&: Psychiatry to assess pt three times per week for medication management. Nursing to assess behaviors, monitor medications, and complete 15 minute checks daily. Social work to see pt at least two times weekly to aid in return to placement. Activities to encourage pt to participate in group activities daily. 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 Education: Graduated from [employer] in [place], [place]. Pt reports having taken some classes at the [facility]. Community Follow-up PCP Psychiatrist Community Provider/Family Inpu: Pt is a self sign and participated in the development of his own treatment plan. Treatment Plan Explained Patient/Station Tender had this treatment plan explained to him/her as indicated by the signature below and has been given the opportunity to ask questions and make suggestions: Date: Patient/Station Tender Signature: Status Update Update Pt has been eating between 25% and 50% of his meals. He does not always want to join others in the dinning area and often need encouragement to do so. Pt blood sugar levels are stable despite not eating well. Pt has been averaging between 5 and 6 hours of sleep at night. Pt continues to demonstrate helplessness and has placed himself on the floor once over the past few days and had no obvious signs of injury. Pt appears to present as being uncomfortable in large part due to his weight. Staff encourage pt to remain sitting in a more upright position to relieve pressure from his abdomen and lung area. Pt has participated in three groups over the past week and did well engaging with staff and other pts. Pt does tend to get frustrated with himself when he feels that he can't do something or isn't doing something he should be doing. Pt had a call with his son that he enjoyed and stated went well. Pt plan for discharge is to return to [facility] at time of discharge unless alternative placement is found for him prior to that. EVE CORONA Jul 17, 2021 13:25
[2021-07-17 15:51] VITALS: BP 131/82
[2021-07-17] MEDS: lamoTRIgine 100 MG TABLET. PO SCH (20:02)
[2021-07-17] MEDS: ATORVASTATIN CALCIUM 20 MG TABLET PO SCH (20:02)
[2021-07-17] MEDS: traZODone 100 MG TABLET. PO SCH (20:02)
[2021-07-17] MEDS: MIRTAZAPINE 30 MG TABLET PO SCH (20:03)
--- NOTE | 2021-07-17 20:33 | PN ---
DATE: 07/17/2021 SUBJECTIVE: The patient is seen today, met with the staff, chart reviewed and also participated in the treatment review meeting. He slept about 5 hours last night and ate only about 25% of his meals. Slight improvement. Did not place himself on the floor today. The patient also participated in some of the activities. The patient mainly focused on his depression, low self-esteem, poor self-concept, constantly negative with his thinking, but no suicidal thoughts. OBSERVATION: VITAL SIGNS: Temperature 97.3, blood pressure 136/94, pulse 98, respirations 18, O2 sat 93%. GENERAL: Apparently, he slept about almost 10 hours last night. LABORATORY DATA: The patient's lab reviewed, CURRENT MEDICATIONS: Cymbalta 30 mg daily, bupropion 150 mg daily, mirtazapine 30 mg at night, and trazodone 100 mg at night. The patient is also on Lamictal 100 mg at night. ASSESSMENT: 1. Major depressive disorder, recurrent. 2. Anxiety disorder, unspecified. 3. Impulse control disorder, unspecified. PLAN: To continue treatment. LENGTH OF STAY: Five to seven days. TERESA DR: Gregory TID: [id number]
[2021-07-18 06:04] VITALS: BP 116/75
[2021-07-18 06:46] LABS: BASO % 1 % (0-3); EOS # 0.2 x10^3/uL (0.0-0.7); EOS % 3 % (0-3); HEMATOCRIT 35.8 % (39.0-53.0); HEMOGLOBIN 11.5 g/dL (13.0-17.5); LYMPH # 0.7 x10^3/uL (1.0-4.8); LYMPH % 9 % (24-48); MEAN CORPUSCULAR HEMOGLOBIN 31 pg (25-35); MEAN CORPUSCULAR HGB CONC 32 g/dL (31-37); MEAN CORPUSCULAR VOLUME 97 fL (79-100); MONO # 0.7 x10^3/uL (0.0-1.1); MONO % 10 % (0-9); NEUT # 5.8 x10^3uL (1.8-7.7); NEUT % 77 % (31-73); PLATELET COUNT 260 x10^3/uL (140-400); RED BLOOD COUNT 3.68 x10^6/uL (4.30-5.70); RED CELL DISTRIBUTION WIDTH 18.3 % (11.5-14.5); WHITE BLOOD COUNT 7.5 x10^3/uL (4.0-11.0)
[2021-07-18 06:56] LABS: ALBUMIN 2.8 g/dL (3.4-5.0); ALBUMIN/GLOBULIN RATIO 0.8 (1.0-1.7); CALCIUM 8.5 mg/dL (8.5-10.1); CREATININE 1.2 mg/dL (0.7-1.3); GFR 60.4; POTASSIUM 4.3 mmol/L (3.5-5.1); TOTAL BILIRUBIN 0.6 mg/dL (0.2-1.0); TOTAL PROTEIN 6.4 g/dL (6.4-8.2)
[2021-07-18] MEDS: FUROSEMIDE 40 MG TABLET PO SCH (08:48)
[2021-07-18] MEDS: POTASSIUM CHLORIDE 10 MEQ TABLET.ER. PO SCH (08:49)
[2021-07-18] MEDS: ASPIRIN CHEWABLE 81 MG TABLET. PO SCH (08:50)
[2021-07-18] MEDS: ARIPiprazole 15 MG TABLET PO SCH (08:50)
[2021-07-18] MEDS: CARVEDILOL 12.5 MG TABLET PO SCH ×2 (08:50→20:10)
[2021-07-18] MEDS: MULTIVITAMIN with MINERAL TABLET. PO SCH (08:51)
[2021-07-18] MEDS: CLOPIDOGREL BISULFATE 75 MG TABLET PO SCH (08:51)
[2021-07-18] MEDS: buPROPion XL 150 MG TAB.ER.24H PO SCH (08:51)
[2021-07-18] MEDS: LINAGLIPTIN 5 MG TABLET PO SCH (08:51)
[2021-07-18] MEDS: DOCUSATE SODIUM 100 MG CAPSULE PO SCH ×2 (08:51→20:10)
[2021-07-18] MEDS: DULoxetine HCL 30 MG CAPSULE.DR PO SCH ×2 (08:52→12:24)
[2021-07-18] MEDS: NEOMY/BACITR/POLYMYXIN OINT PACKET. TP SCH ×2 (08:53→20:10)
[2021-07-18] MEDS: ACETAMINOPHEN 325 MG TABLET PO PRN (08:54)
[2021-07-18] MEDS: INSULIN LISPRO 300 UNITS/3 ML VIAL. SQ SCH ×3 (09:02→17:00)
[2021-07-18] MEDS: NYSTATIN TOPICAL POWDER 15GM BOTTLE. TP SCH ×2 (09:03→20:10)
[2021-07-18 15:46] VITALS: BP 113/79
[2021-07-18] MEDS: ATORVASTATIN CALCIUM 20 MG TABLET PO SCH (20:09)
[2021-07-18] MEDS: traZODone 100 MG TABLET. PO SCH (20:10)
[2021-07-18] MEDS: MIRTAZAPINE 30 MG TABLET PO SCH (20:10)
[2021-07-18] MEDS: lamoTRIgine 100 MG TABLET. PO SCH (20:10)
--- NOTE | 2021-07-18 22:01 | PN ---
DATE: 07/18/2021 SUBJECTIVE: The patient reports no major problems except difficulty with his ADLs because of his morbid obesity. Staff reports he did not place himself on the floor today and he is eating between 25%-50% of his meals. The patient's behavior has been appropriate. OBSERVATION: VITAL SIGNS: Temperature 97.1, blood pressure 116/75, pulse 102, respirations 20, and O2 sat 93%. GENERAL: Slept about 6-1/2 hours last night. LABORATORY DATA: The patient's lab reviewed. CURRENT MEDICATIONS: The patient's current medications, Cymbalta 30 mg daily, bupropion 150 mg daily, mirtazapine 30 mg at night, and trazodone 100 mg at night. He is also on Lamictal 100 mg at night. He is not having any side effects to medications. ASSESSMENT: 1. Major depressive disorder, recurrent. 2. Anxiety disorder, unspecified. 3. Impulse control disorder, unspecified. PLAN: To continue with treatment. LENGTH OF STAY: Five to seven days. MYKE DR: Gregory TID: [id number]
[2021-07-19 06:19] VITALS: BP 108/64
[2021-07-19] MEDS: INSULIN LISPRO 300 UNITS/3 ML VIAL. SQ SCH ×3 (08:00→17:00)
[2021-07-19] MEDS: NEOMY/BACITR/POLYMYXIN OINT PACKET. TP SCH ×2 (08:47→19:57)
[2021-07-19] MEDS: ARIPiprazole 15 MG TABLET PO SCH (08:47)
[2021-07-19] MEDS: FUROSEMIDE 40 MG TABLET PO SCH (08:48)
[2021-07-19] MEDS: CLOPIDOGREL BISULFATE 75 MG TABLET PO SCH (08:48)
[2021-07-19] MEDS: DOCUSATE SODIUM 100 MG CAPSULE PO SCH ×2 (08:48→19:55)
[2021-07-19] MEDS: ASPIRIN CHEWABLE 81 MG TABLET. PO SCH (08:49)
[2021-07-19] MEDS: CARVEDILOL 12.5 MG TABLET PO SCH ×2 (08:49→19:56)
[2021-07-19] MEDS: MULTIVITAMIN with MINERAL TABLET. PO SCH (08:50)
[2021-07-19] MEDS: buPROPion XL 150 MG TAB.ER.24H PO SCH (08:50)
[2021-07-19] MEDS: LINAGLIPTIN 5 MG TABLET PO SCH (08:50)
[2021-07-19] MEDS: POTASSIUM CHLORIDE 10 MEQ TABLET.ER. PO SCH (08:50)
[2021-07-19] MEDS: DULoxetine HCL 30 MG CAPSULE.DR PO SCH ×2 (08:50→13:10)
[2021-07-19] MEDS: NYSTATIN TOPICAL POWDER 15GM BOTTLE. TP SCH ×2 (08:52→19:57)
[2021-07-19] MEDS: ACETAMINOPHEN 325 MG TABLET PO PRN (10:25)
[2021-07-19 16:12] VITALS: BP 100/67
[2021-07-19] MEDS: ATORVASTATIN CALCIUM 20 MG TABLET PO SCH (19:56)
[2021-07-19] MEDS: traZODone 100 MG TABLET. PO SCH (19:56)
[2021-07-19] MEDS: MIRTAZAPINE 30 MG TABLET PO SCH (19:57)
[2021-07-19] MEDS: lamoTRIgine 100 MG TABLET. PO SCH (19:57)
[2021-07-19] MEDS: oxyCODONE/APAP 10/325 1 TAB TABLET PO PRN (23:19)
[2021-07-20 06:40] VITALS: BP 155/88
[2021-07-20] MEDS: INSULIN LISPRO 300 UNITS/3 ML VIAL. SQ SCH ×3 (08:00→17:00)
[2021-07-20] MEDS: buPROPion XL 150 MG TAB.ER.24H PO SCH (08:15)
[2021-07-20] MEDS: DOCUSATE SODIUM 100 MG CAPSULE PO SCH ×2 (08:15→20:31)
[2021-07-20] MEDS: CLOPIDOGREL BISULFATE 75 MG TABLET PO SCH (08:15)
[2021-07-20] MEDS: MULTIVITAMIN with MINERAL TABLET. PO SCH (08:15)
[2021-07-20] MEDS: NEOMY/BACITR/POLYMYXIN OINT PACKET. TP SCH ×2 (08:16→20:31)
[2021-07-20] MEDS: ASPIRIN CHEWABLE 81 MG TABLET. PO SCH (08:16)
[2021-07-20] MEDS: POTASSIUM CHLORIDE 10 MEQ TABLET.ER. PO SCH (08:16)
[2021-07-20] MEDS: FUROSEMIDE 40 MG TABLET PO SCH (08:17)
[2021-07-20] MEDS: CARVEDILOL 12.5 MG TABLET PO SCH ×2 (08:17→20:31)
[2021-07-20] MEDS: ARIPiprazole 15 MG TABLET PO SCH (08:17)
[2021-07-20] MEDS: LINAGLIPTIN 5 MG TABLET PO SCH (08:18)
[2021-07-20] MEDS: DULoxetine HCL 30 MG CAPSULE.DR PO SCH ×2 (08:18→13:07)
[2021-07-20] MEDS: NYSTATIN TOPICAL POWDER 15GM BOTTLE. TP SCH ×2 (08:19→20:31)
[2021-07-20] MEDS: MAG HYDROX/AL HYDROX/SIMETH 30 ML ORAL.SUSP PO PRN (15:31)
[2021-07-20 16:15] VITALS: BP 127/89
[2021-07-20] MEDS: lamoTRIgine 100 MG TABLET. PO SCH (20:31)
[2021-07-20] MEDS: MIRTAZAPINE 30 MG TABLET PO SCH (20:31)
[2021-07-20] MEDS: ATORVASTATIN CALCIUM 20 MG TABLET PO SCH (20:31)
[2021-07-20] MEDS: traZODone 100 MG TABLET. PO SCH (20:31)
[2021-07-20] MEDS: oxyCODONE/APAP 10/325 1 TAB TABLET PO PRN (20:33)
--- NOTE | 2021-07-20 21:02 | PDOC ---
Exam Note: Josef Note: Late entry for 07/19/2021. Please also refer to the separate dictated note~for this date of service dictated separately.~Patient seen individually. Discussed the patient with Nursing staff reviewed the chart.~Reviewed interim history and current functioning. Reviewed vital signs,~Labs/ Radiology~and current medic ations noted below. Continue current treatment with the changes noted in the dictated addendum note Assessment: Vital Signs/I&O: Vital Signs Date Time Temp Pulse Resp B/P (MAP) Pulse Ox O2 Delivery O2 Flow Rate FiO2 07/20/21 20:31 94 127/89 07/20/21 16:15 97.9 20 95 Room Air 07/14/21 16:20 2.0 I & O 07/19/21 07/19/21 07/20/21 15:00 23:00 07:00 Intake Total 840 ml 480 ml Balance 840 ml 480 ml Labs: Laboratory Tests Test 07/20/21 07:32 07/20/21 12:09 07/20/21 17:11 07/20/21 19:34 Glucose (Fingerstick) 146 mg/dL (70-99) H 150 mg/dL (70-99) H 151 mg/dL (70-99) H 156 mg/dL (70-99) H Current Medications: Meds: Laboratory Tests Test 07/20/21 07:32 07/20/21 12:09 07/20/21 17:11 07/20/21 19:34 Glucose (Fingerstick) 146 mg/dL 150 mg/dL 151 mg/dL 156 mg/dL Current Medications Medications (Trade) Dose Ordered Sig/Nicky Route PRN Reason Start Time Stop Time Status Last Admin Dose Admin Acetaminophen (Tylenol) 650 mg PRN Q6HRS PRN PO MILD PAIN / TEMP > 100.3'F 06/19/21 17:00 07/19/21 10:25 Multi-Ingredient Ointment (Analgesic [place]) 1 neelima PRN QID PRN TP MUSCLE PAIN 06/19/21 17:00 Al Hydroxide/Mg Hydroxide (Mylanta Plus Xs) 15 ml PRN AFTMEALHC PRN PO DYSPEPSIA 06/19/21 17:00 07/20/21 15:31 Magnesium Hydroxide (Milk Of Magnesia) 2,400 mg PRN QHS PRN PO 1ST CHOICE CONSTIPATION 06/19/21 17:00 07/16/21 19:51 Aripiprazole (Abilify) 7.5 mg DAILY PO 06/20/21 09:00 06/28/21 15:42 DC 06/28/21 08:15 Aspirin (Aspirin Chewable) 81 mg DAILY PO 06/20/21 09:00 07/20/21 08:16 Clopidogrel Bisulfate (Plavix) 75 mg DAILY PO 06/20/21 09:00 07/20/21 08:15 Duloxetine HCl (Cymbalta) 90 mg DAILY PO 06/20/21 09:00 06/20/21 18:46 DC 06/20/21 09:53 Oxycodone/ Acetaminophen (Percocet 10/325) 1 tab PRN Q6HRS PRN PO PAIN 06/19/21 17:00 07/20/21 20:33 Potassium Chloride (Klor-Con) 30 meq DAILY PO 06/20/21 09:00 07/20/21 08:16 Trazodone HCl (Desyrel) 150 mg HS PO 06/19/21 21:00 07/06/21 14:47 DC 07/05/21 20:25 Atorvastatin Calcium (Lipitor) 80 mg QHS PO 06/19/21 21:00 07/20/21 20:31 Carvedilol (Coreg) 37.5 mg BID PO 06/19/21 21:00 07/20/21 20:31 Insulin Human Lispro (HumaLOG) 12 units TIDBFRMEAL SQ 06/20/21 07:30 07/07/21 11:53 DC 06/24/21 12:43 Insulin Glargine (Lantus Syringe) 48 unit QHS SQ 06/19/21 21:00 07/04/21 12:27 DC Multivitamins/ Calcium (Thera-M Plus) 1 tab DAILY PO 06/20/21 09:00 07/20/21 08:15 Linagliptin (Tradjenta) 5 mg DAILY PO 06/20/21 09:00 07/20/21 08:18 Olanzapine (ZyPREXA ZYDIS) 2.5 mg PRN Q2HR PRN PO PSYCHOSIS 06/20/21 03:15 07/06/21 22:40 Duloxetine HCl (Cymbalta) 60 mg DAILY PO 06/21/21 09:00 1/9/22 08:18 Bupropion HCl (Wellbutrin Xl) 150 mg DAILY PO 06/21/21 09:00 06/25/21 21:00 DC 06/25/21 09:55 Bupropion HCl (Wellbutrin Xl) 300 mg DAILY PO 06/26/21 09:00 07/12/21 15:31 DC 07/12/21 08:04 Docusate Sodium (Colace) 100 mg DAILY PO 06/22/21 09:00 06/22/21 00:17 DC Lamotrigine (LaMICtal) 25 mg QHS PO 06/21/21 21:00 06/23/21 23:59 DC 06/23/21 19:55 Lamotrigine (LaMICtal) 50 mg QHS PO 06/24/21 21:00 06/26/21 23:59 DC 06/26/21 20:39 Lamotrigine (LaMICtal) 75 mg QHS PO 06/27/21 21:00 06/29/21 23:55 DC 06/29/21 20:02 Lamotrigine (LaMICtal) 100 mg QHS PO 06/30/21 21:00 07/20/21 20:31 Docusate Sodium (Colace) 100 mg BID PO 06/22/21 09:00 07/20/21 20:31 Nystatin (Nystop) 1 neelima BID TP 06/25/21 21:00 07/20/21 20:31 Trazodone HCl (Desyrel) 100 mg PRN QHS PRN PO INSOMNIA 06/26/21 12:00 07/06/21 14:47 DC 07/05/21 22:40 Aripiprazole (Abilify) 10 mg DAILY PO 06/29/21 09:00 07/06/21 14:47 DC 07/06/21 07:48 Doxepin HCl (SINEquan) 10 mg QHS PO 06/28/21 21:00 07/12/21 15:31 DC 07/11/21 20:16 Furosemide (Lasix) 40 mg DAILY PO 06/30/21 09:00 07/20/21 08:17 Magnesium Citrate (Citroma) 296 ml PRN 1X PRN PO 2ND CHOICE CONSTIPATION 07/04/21 12:30 07/04/21 13:03 Aripiprazole (Abilify) 15 mg DAILY PO 07/07/21 09:00 07/20/21 08:17 Trazodone HCl (Desyrel) 250 mg HS PO 07/06/21 21:00 07/09/21 13:32 DC 07/08/21 19:32 Insulin Human Lispro (HumaLOG) 0-5 UNITS TIDWMEALS SQ 07/07/21 12:00 07/18/21 09:02 Dextrose (Dextrose 50%-Water Syringe) 12.5 gm PRN Q15MIN PRN IV SEE COMMENTS 07/07/21 12:00 Trazodone HCl (Desyrel) 100 mg HS PO 07/09/21 21:00 07/20/21 20:31 Trazodone HCl (Desyrel) 50 mg PRN QHS PRN PO insomnia 07/09/21 13:30 07/15/21 01:08 Mirtazapine (Remeron) 22.5 mg QHS PO 07/09/21 21:00 07/12/21 15:31 DC 07/11/21 20:13 Bupropion HCl (Wellbutrin Xl) 150 mg DAILY PO 07/13/21 09:00 07/20/21 08:15 Mirtazapine (Remeron) 30 mg QHS PO 07/12/21 21:00 07/20/21 20:31 Duloxetine HCl (Cymbalta) 30 mg AFTRNOON PO 07/13/21 13:00 07/20/21 13:07 Neomycin/ Polymyxin/ Bacitracin (Triple Antibiotic Ointment) 1 pkt BID TP 07/14/21 21:00 07/20/21 20:31 I have reviewed the current psychotropics carefully including drug interactions. Risk benefit ratio favors no change other than as noted in my dictated progress note. Diagnosis: Problems: (1) Impulse control disorder, unspecified (2) Personality disorder, unspecified (3) Anxiety disorder, unspecified (4) Major depressive disorder, recurrent ESE LEVI MD Jul 20, 2021 21:02
[2021-07-21] MEDS: MAGNESIUM HYDROXIDE 2,400 MG/30 ML ORAL.SUSP. PO PRN (06:07)
[2021-07-21 06:39] VITALS: BP 148/82
--- NOTE | 2021-07-21 07:20 | PDOC ---
Exam Note: Josef Note: This note is a late entry for 07/19/2021 covers elements not covered in my initial note. Subjective: The patient was seen on telehealth rounds in the evening of 07/19/2021 due to COVID-19 exposure on our unit and half the patients have been COVID positive and transferred to the Medical/Surgical Floor. Discussed with Elyse MODI and reviewed the chart. Also discussed the patient with Dr. Means who covered for me for the past 2 weeks. Reviewed the patients history, diagnoses, progress, work-up, labs etc. The patient slept 8-3/4 hours previous night. Overall he has appeared more depressed, withdrawn, little more regressed. He was able to walk earlier last week and then became quite withdrawn. For the last day or so he has been more active and energetic though physically he is worse. Patients appetite is poor. He is diabetic and stops eating. Insulin has to be adjusted, otherwise, blood sugars seem to fall. Subjectively he states he feels better but per nursing report it is not being true. He had urinated on the floor and the nursing staff stepped into it during the telehealth round and the patient is totally oblivious of this. Review of Systems: Ambulation impaired. He was lying in bed. Complains of right shoulder pain. Received Percocet and Tylenol. No CV, , eye, ENT system symptoms on review. He complains of tiredness. Mental Status Exam: The patient is reasonably oriented. He readily recognized me. Speech coherent. Abstraction fair. Computation impaired. Language function intact. Attention span short. He was quite animated but still depr essed. He denies psychotic symptoms, suicidal or homicidal ideation. Laboratory Data: Reviewed. Impression: Major depressive disorder, recurrent, rule out psychotic features. Anxiety disorder unspecified. Plan: I have reviewed the patients current psychotropics. Reviewed drug interactions. Risk-benefit ratio. He is currently on Cymbalta 60 mg daily, 30 mg at 1300, trazodone 100 mg h.s. plus 50 mg h.s. p.r.n., Abilify 15 mg a day, Zyprexa p.r.n., Wellbutrin XL 150 mg daily, Lamictal 100 mg daily, Remeron 30 mg h.s. We will keep all this unchanged. Consider adjusting Abilify to a lower dosage depending on how he does. Assessment: Vital Signs/I&O: Vital Signs Date Time Temp Pulse Resp B/P (MAP) Pulse Ox O2 Delivery O2 Flow Rate FiO2 07/21/21 06:39 97.1 97 22 148/82 (104) 91 07/20/21 16:15 Room Air l I & O 07/20/21 07/20/21 07/21/21 15:00 23:00 07:00 Intake Total 480 ml 560 ml Balance 480 ml 560 ml Labs: Laboratory Tests Test 07/20/21 07:32 07/20/21 12:09 07/20/21 17:11 07/20/21 19:34 Glucose (Fingerstick) 146 mg/dL (70-99) H 150 mg/dL (70-99) H 151 mg/dL (70-99) H 156 mg/dL (70-99) H Current Medications: Meds: Laboratory Tests Test 07/20/21 07:32 07/20/21 12:09 07/20/21 17:11 07/20/21 19:34 Glucose (Fingerstick) 146 mg/dL 150 mg/dL 151 mg/dL 156 mg/dL Current Medications Medications (Trade) Dose Ordered Sig/Nicky Route PRN Reason Start Time Stop Time Status Last Admin Dose Admin Acetaminophen (Tylenol) 650 mg PRN Q6HRS PRN PO MILD PAIN / TEMP > 100.3'F 06/19/21 17:00 07/19/21 10:25 Multi-Ingredient Ointment (Analgesic [place]) 1 neelima PRN QID PRN TP MUSCLE PAIN 06/19/21 17:00 Al Hydroxide/Mg Hydroxide (Mylanta Plus Xs) 15 ml PRN AFTMEALHC PRN PO DYSPEPSIA 06/19/21 17:00 07/20/21 15:31 Magnesium Hydroxide (Milk Of Magnesia) 2,400 mg PRN QHS PRN PO 1ST CHOICE CONSTIPATION 06/19/21 17:00 07/21/21 06:07 Aripiprazole (Abilify) 7.5 mg DAILY PO 06/20/21 09:00 06/28/21 15:42 DC 06/28/21 08:15 Aspirin (Aspirin Chewable) 81 mg DAILY PO 06/20/21 09:00 07/20/21 08:16 Clopidogrel Bisulfate (Plavix) 75 mg DAILY PO 06/20/21 09:00 07/20/21 08:15 Duloxetine HCl (Cymbalta) 90 mg DAILY PO 06/20/21 09:00 06/20/21 18:46 DC 06/20/21 09:53 Oxycodone/ Acetaminophen (Percocet 10/325) 1 tab PRN Q6HRS PRN PO PAIN 06/19/21 17:00 07/20/21 20:33 Potassium Chloride (Klor-Con) 30 meq DAILY PO 06/20/21 09:00 07/20/21 08:16 Trazodone HCl (Desyrel) 150 mg HS PO 06/19/21 21:00 07/06/21 14:47 DC 07/05/21 20:25 Atorvastatin Calcium (Lipitor) 80 mg QHS PO 06/19/21 21:00 07/20/21 20:31 Carvedilol (Coreg) 37.5 mg BID PO 06/19/21 21:00 07/20/21 20:31 Insulin Human Lispro (HumaLOG) 12 units TIDBFRMEAL SQ 06/20/21 07:30 07/07/21 11:53 DC 06/24/21 12:43 Insulin Glargine (Lantus Syringe) 48 unit QHS SQ 06/19/21 21:00 07/04/21 12:27 DC Multivitamins/ Calcium (Thera-M Plus) 1 tab DAILY PO 06/20/21 09:00 07/20/21 08:15 Linagliptin (Tradjenta) 5 mg DAILY PO 06/20/21 09:00 07/20/21 08:18 Olanzapine (ZyPREXA ZYDIS) 2.5 mg PRN Q2HR PRN PO PSYCHOSIS 06/20/21 03:15 07/06/21 22:40 Duloxetine HCl (Cymbalta) 60 mg DAILY PO 06/21/21 09:00 07/20/21 08:18 Bupropion HCl (Wellbutrin Xl) 150 mg DAILY PO 06/21/21 09:00 06/25/21 21:00 DC 06/25/21 09:55 Bupropion HCl (Wellbutrin Xl) 300 mg DAILY PO 06/26/21 09:00 07/12/21 15:31 DC 07/12/21 08:04 Docusate Sodium (Colace) 100 mg DAILY PO 06/22/21 09:00 06/22/21 00:17 DC Lamotrigine (LaMICtal) 25 mg QHS PO 06/21/21 21:00 06/23/21 23:59 DC 06/23/21 19:55 Lamotrigine (LaMICtal) 50 mg QHS PO 06/24/21 21:00 06/26/21 23:59 DC 06/26/21 20:39 Lamotrigine (LaMICtal) 75 mg QHS PO 06/27/21 21:00 06/29/21 23:55 DC 06/29/21 20:02 Lamotrigine (LaMICtal) 100 mg QHS PO 06/30/21 21:00 07/20/21 20:31 Docusate Sodium (Colace) 100 mg BID PO 06/22/21 09:00 07/20/21 20:31 Nystatin (Nystop) 1 neelima BID TP 06/25/21 21:00 07/20/21 20:31 Trazodone HCl (Desyrel) 100 mg PRN QHS PRN PO INSOMNIA 06/26/21 12:00 07/06/21 14:47 DC 07/05/21 22:40 Aripiprazole (Abilify) 10 mg DAILY PO 06/29/21 09:00 07/06/21 14:47 DC 07/06/21 07:48 Doxepin HCl (SINEquan) 10 mg QHS PO 06/28/21 21:00 07/12/21 15:31 DC 07/11/21 20:16 Furosemide (Lasix) 40 mg DAILY PO 06/30/21 09:00 07/20/21 08:17 Magnesium Citrate (Citroma) 296 ml PRN 1X PRN PO 2ND CHOICE CONSTIPATION 07/04/21 12:30 07/04/21 13:03 Aripiprazole (Abilify) 15 mg DAILY PO 07/07/21 09:00 07/20/21 08:17 Trazodone HCl (Desyrel) 250 mg HS PO 07/06/21 21:00 07/09/21 13:32 DC 07/08/21 19:32 Insulin Human Lispro (HumaLOG) 0-5 UNITS TIDWMEALS SQ 07/07/21 12:00 07/18/21 09:02 Dextrose (Dextrose 50%-Water Syringe) 12.5 gm PRN Q15MIN PRN IV SEE COMMENTS 07/07/21 12:00 Trazodone HCl (Desyrel) 100 mg HS PO 07/09/21 21:00 07/20/21 20:31 Trazodone HCl (Desyrel) 50 mg PRN QHS PRN PO insomnia 07/09/21 13:30 07/15/21 01:08 Mirtazapine (Remeron) 22.5 mg QHS PO 07/09/21 21:00 07/12/21 15:31 DC 07/11/21 20:13 Bupropion HCl (Wellbutrin Xl) 150 mg DAILY PO 07/13/21 09:00 07/20/21 08:15 Mirtazapine (Remeron) 30 mg QHS PO 07/12/21 21:00 07/20/21 20:31 Duloxetine HCl (Cymbalta) 30 mg AFTRNOON PO 07/13/21 13:00 07/20/21 13:07 Neomycin/ Polymyxin/ Bacitracin (Triple Antibiotic Ointment) 1 pkt BID TP 07/14/21 21:00 07/20/21 20:31 I have reviewed the current psychotropics carefully including drug interactions. Risk benefit ratio favors no change other than as noted in my dictated progress note. Diagnosis: Problems: (1) Impulse control disorder, unspecified (2) Personality disorder, unspecified (3) Anxiety disorder, unspecified (4) Major depressive disorder, recurrent ESE LEVI MD Jul 21, 2021 07:20
[2021-07-21] MEDS: INSULIN LISPRO 300 UNITS/3 ML VIAL. SQ SCH ×3 (08:00→17:00)
[2021-07-21] MEDS: NYSTATIN TOPICAL POWDER 15GM BOTTLE. TP SCH ×2 (09:00→20:11)
[2021-07-21] MEDS: FUROSEMIDE 40 MG TABLET PO SCH (09:31)
[2021-07-21] MEDS: NEOMY/BACITR/POLYMYXIN OINT PACKET. TP SCH ×2 (09:31→20:07)
[2021-07-21] MEDS: CLOPIDOGREL BISULFATE 75 MG TABLET PO SCH (09:31)
[2021-07-21] MEDS: CARVEDILOL 12.5 MG TABLET PO SCH ×2 (09:31→20:07)
[2021-07-21] MEDS: ASPIRIN CHEWABLE 81 MG TABLET. PO SCH (09:31)
[2021-07-21] MEDS: DOCUSATE SODIUM 100 MG CAPSULE PO SCH ×2 (09:31→20:08)
[2021-07-21] MEDS: ARIPiprazole 15 MG TABLET PO SCH (09:32)
[2021-07-21] MEDS: buPROPion XL 150 MG TAB.ER.24H PO SCH (09:32)
[2021-07-21] MEDS: LINAGLIPTIN 5 MG TABLET PO SCH (09:32)
[2021-07-21] MEDS: MULTIVITAMIN with MINERAL TABLET. PO SCH (09:32)
[2021-07-21] MEDS: DULoxetine HCL 30 MG CAPSULE.DR PO SCH ×2 (09:32→13:04)
[2021-07-21] MEDS: POTASSIUM CHLORIDE 10 MEQ TABLET.ER. PO SCH (09:33)
[2021-07-21 15:42] VITALS: BP 117/79
[2021-07-21] MEDS: lamoTRIgine 100 MG TABLET. PO SCH (20:06)
[2021-07-21] MEDS: ATORVASTATIN CALCIUM 20 MG TABLET PO SCH (20:07)
[2021-07-21] MEDS: traZODone 100 MG TABLET. PO SCH (20:07)
[2021-07-21] MEDS: MIRTAZAPINE 30 MG TABLET PO SCH (20:08)
--- NOTE | 2021-07-21 20:57 | PDOC ---
Exam Note: Josef Note: Please also refer to the separate dictated note~for this date of service dictated separately.~Patient seen individually. Discussed the patient with Nursing staff reviewed the chart.~Reviewed interim history and current functioning. Reviewed vital signs,~Labs/ Radiology~and current medications noted below. Continue current treatment with the changes noted in the dictated addendum note Assessment: Vital Signs/I&O: Vital Signs Date Time Temp Pulse Resp B/P (MAP) Pulse Ox O2 Delivery O2 Flow Rate FiO2 07/21/21 20:07 95 117/79 07/21/21 15:42 97.9 20 95 Room Air I & O 07/20/21 07/20/21 07/21/21 15:00 23:00 07:00 Intake Total 480 ml 560 ml Balance 480 ml 560 ml Labs: Laboratory Tests Test 07/21/21 07:35 07/21/21 11:45 07/21/21 17:18 07/21/21 19:41 Glucose (Fingerstick) 141 mg/dL (70-99) H 165 mg/dL (70-99) H 166 mg/dL (70-99) H 165 mg/dL (70-99) H Current Medications: Meds: Laboratory Tests Test 07/21/21 07:35 07/21/21 11:45 07/21/21 17:18 07/21/21 19:41 Glucose (Fingerstick) 141 mg/dL 165 mg/dL 166 mg/dL 165 mg/dL Current Medications Medications (Trade) Dose Ordered Sig/Nicky Route PRN Reason Start Time Stop Time Status Last Admin Dose Admin Acetaminophen (Tylenol) 650 mg PRN Q6HRS PRN PO MILD PAIN / TEMP > 100.3'F 06/19/21 17:00 07/19/21 10:25 Multi-Ingredient Ointment (Analgesic [place]) 1 neelima PRN QID PRN TP MUSCLE PAIN 06/19/21 17:00 Al Hydroxide/Mg Hydroxide (Mylanta Plus Xs) 15 ml PRN AFTMEALHC PRN PO DYSPEPSIA 06/19/21 17:00 07/20/21 15:31 Magnesium Hydroxide (Milk Of Magnesia) 2,400 mg PRN QHS PRN PO 1ST CHOICE CONSTIPATION 06/19/21 17:00 07/21/21 06:07 Aripiprazole (Abilify) 7.5 mg DAILY PO 06/20/21 09:00 06/28/21 15:42 DC 06/28/21 08:15 Aspirin (Aspirin Chewable) 81 mg DAILY PO 06/20/21 09:00 07/21/21 09:31 Clopidogrel Bisulfate (Plavix) 75 mg DAILY PO 06/20/21 09:00 07/21/21 09:31 Duloxetine HCl (Cymbalta) 90 mg DAILY PO 06/20/21 09:00 06/20/21 18:46 DC 06/20/21 09:53 Oxycodone/ Acetaminophen (Percocet 10/325) 1 tab PRN Q6HRS PRN PO PAIN 06/19/21 17:00 07/20/21 20:33 Potassium Chloride (Klor-Con) 30 meq DAILY PO 06/20/21 09:00 07/21/21 09:33 Trazodone HCl (Desyrel) 150 mg HS PO 06/19/21 21:00 07/06/21 14:47 DC 07/05/21 20:25 Atorvastatin Calcium (Lipitor) 80 mg QHS PO 06/19/21 21:00 07/21/21 20:07 Carvedilol (Coreg) 37.5 mg BID PO 06/19/21 21:00 07/21/21 20:07 Insulin Human Lispro (HumaLOG) 12 units TIDBFRMEAL SQ 06/20/21 07:30 07/07/21 11:53 DC 06/24/21 12:43 Insulin Glargine (Lantus Syringe) 48 unit QHS SQ 06/19/21 21:00 07/04/21 12:27 DC Multivitamins/ Calcium (Thera-M Plus) 1 tab DAILY PO 06/20/21 09:00 07/21/21 09:32 Linagliptin (Tradjenta) 5 mg DAILY PO 06/20/21 09:00 07/21/21 09:32 Olanzapine (ZyPREXA ZYDIS) 2.5 mg PRN Q2HR PRN PO PSYCHOSIS 06/20/21 03:15 07/06/21 22:40 Duloxetine HCl (Cymbalta) 60 mg DAILY PO 06/21/21 09:00 07/21/21 09:32 Bupropion HCl (Wellbutrin Xl) 150 mg DAILY PO 06/21/21 09:00 06/25/21 21:00 DC 06/25/21 09:55 Bupropion HCl (Wellbutrin Xl) 300 mg DAILY PO 06/26/21 09:00 07/12/21 15:31 DC 07/12/21 08:04 Docusate Sodium (Colace) 100 mg DAILY PO 06/22/21 09:00 06/22/21 00:17 DC Lamotrigine (LaMICtal) 25 mg QHS PO 06/21/21 21:00 06/23/21 23:59 DC 06/23/21 19:55 Lamotrigine (LaMICtal) 50 mg QHS PO 06/24/21 21:00 06/26/21 23:59 DC 06/26/21 20:39 Lamotrigine (LaMICtal) 75 mg QHS PO 06/27/21 21:00 06/29/21 23:55 DC 06/29/21 20:02 Lamotrigine (LaMICtal) 100 mg QHS PO 06/30/21 21:00 07/21/21 20:06 Docusate Sodium (Colace) 100 mg BID PO 06/22/21 09:00 07/21/21 20:08 Nystatin (Nystop) 1 neelima BID TP 06/25/21 21:00 07/21/21 20:11 Trazodone HCl (Desyrel) 100 mg PRN QHS PRN PO INSOMNIA 06/26/21 12:00 07/06/21 14:47 DC 07/05/21 22:40 Aripiprazole (Abilify) 10 mg DAILY PO 06/29/21 09:00 07/06/21 14:47 DC 07/06/21 07:48 Doxepin HCl (SINEquan) 10 mg QHS PO 06/28/21 21:00 07/12/21 15:31 DC 07/11/21 20:16 Furosemide (Lasix) 40 mg DAILY PO 06/30/21 09:00 07/21/21 09:31 Magnesium Citrate (Citroma) 296 ml PRN 1X PRN PO 2ND CHOICE CONSTIPATION 07/04/21 12:30 07/04/21 13:03 Aripiprazole (Abilify) 15 mg DAILY PO 07/07/21 09:00 07/21/21 09:32 Trazodone HCl (Desyrel) 250 mg HS PO 07/06/21 21:00 07/09/21 13:32 DC 07/08/21 19:32 Insulin Human Lispro (HumaLOG) 0-5 UNITS TIDWMEALS SQ 07/07/21 12:00 07/18/21 09:02 Dextrose (Dextrose 50%-Water Syringe) 12.5 gm PRN Q15MIN PRN IV SEE COMMENTS 07/07/21 12:00 Trazodone HCl (Desyrel) 100 mg HS PO 07/09/21 21:00 07/21/21 20:07 Trazodone HCl (Desyrel) 50 mg PRN QHS PRN PO insomnia 07/09/21 13:30 07/15/21 01:08 Mirtazapine (Remeron) 22.5 mg QHS PO 07/09/21 21:00 07/12/21 15:31 DC 07/11/21 20:13 Bupropion HCl (Wellbutrin Xl) 150 mg DAILY PO 07/13/21 09:00 07/21/21 09:32 Mirtazapine (Remeron) 30 mg QHS PO 07/12/21 21:00 07/21/21 20:08 Duloxetine HCl (Cymbalta) 30 mg AFTRNOON PO 07/13/21 13:00 07/21/21 13:04 Neomycin/ Polymyxin/ Bacitracin (Triple Antibiotic Ointment) 1 pkt BID TP 07/14/21 21:00 07/21/21 20:07 I have reviewed the current psychotropics carefully including drug interactions. Risk benefit ratio favors no change other than as noted in my dictated progress note. Diagnosis: Problems: (1) Impulse control disorder, unspecified (2) Personality disorder, unspecified (3) Anxiety disorder, unspecified (4) Major depressive disorder, recurrent ESE LEVI MD Jul 21, 2021 20:57
[2021-07-22 05:50] VITALS: BP 116/77
--- NOTE | 2021-07-22 07:27 | PDOC ---
Exam Note: Josef Note: This note is a late entry for 07/21/2021 covers elements not covered in my initial note. Subjective: The patient was seen on telehealth rounds in the evening of 07/21/2021 due to COVID-19 exposure on our unit. Discussed with Julia MODI and reviewed the chart. The patient slept 6-1/4 hours previous night. Reviewed current and past historical information from Dr. Means. The patient has some blisters on the back of his right leg. This is probably contributed by his incontinence and rubbing back of his leg during transfers. He states there is some discomfort with this and we will defer to Dr. Hendrickson. Review of Systems: Ambulation impaired and transfers are with Shyam lift. No CV, , pulmonary, eye, ENT system symptoms on review. Mental Status Exam: The patient is reasonably oriented. Speech coherent. Abstraction fair. Computation impaired. Language function intact. Attention span fair. Mood and affect somewhat depressed, though he minimizes this. No suicidal ideation. Laboratory Data: Reviewed. Impression: Major depressive disorder, recurrent, rule out psychotic features. Anxiety disorder unspecified. Plan: Continue current psychotropics. We may increase Cymbalta depending on his progress. Maintain Lamictal, Remeron, Wellbutrin, trazodone and Abilify and change for now. Assessment: Vital Signs/I&O: Vital Signs Date Time Temp Pulse Resp B/P (MAP) Pulse Ox O2 Delivery O2 Flow Rate FiO2 07/22/21 05:50 97.6 97 20 116/77 (90) 97 3.0 07/21/21 15:42 Room Air I & O 07/21/21 07/21/21 07/22/21 15:00 23:00 07:00 Intake Total 720 ml 480 ml Balance 720 ml 480 ml Labs: Laboratory Tests Test 07/21/21 07:35 07/21/21 11:45 07/21/21 17:18 07/21/21 19:41 Glucose (Fingerstick) 141 mg/dL (70-99) H 165 mg/dL (70-99) H 166 mg/dL (70-99) H 165 mg/dL (70-99) H Current Medications: Meds: Laboratory Tests Test 07/21/21 07:35 07/21/21 11:45 07/21/21 17:18 07/21/21 19:41 Glucose (Fingerstick) 141 mg/dL 165 mg/dL 166 mg/dL 165 mg/dL Current Medications Medications (Trade) Dose Ordered Sig/Nicky Route PRN Reason Start Time Stop Time Status Last Admin Dose Admin Acetaminophen (Tylenol) 650 mg PRN Q6HRS PRN PO MILD PAIN / TEMP > 100.3'F 06/19/21 17:00 07/19/21 10:25 Multi-Ingredient Ointment (Analgesic [place]) 1 neelima PRN QID PRN TP MUSCLE PAIN 06/19/21 17:00 Al Hydroxide/Mg Hydroxide (Mylanta Plus Xs) 15 ml PRN AFTMEALHC PRN PO DYSPEPSIA 06/19/21 17:00 07/20/21 15:31 Magnesium Hydroxide (Milk Of Magnesia) 2,400 mg PRN QHS PRN PO 1ST CHOICE CONSTIPATION 06/19/21 17:00 07/21/21 06:07 Aripiprazole (Abilify) 7.5 mg DAILY PO 06/20/21 09:00 06/28/21 15:42 DC 06/28/21 08:15 Aspirin (Aspirin Chewable) 81 mg DAILY PO 06/20/21 09:00 07/21/21 09:31 Clopidogrel Bisulfate (Plavix) 75 mg DAILY PO 06/20/21 09:00 07/21/21 09:31 Duloxetine HCl (Cymbalta) 90 mg DAILY PO 06/20/21 09:00 06/20/21 18:46 DC 06/20/21 09:53 Oxycodone/ Acetaminophen (Percocet 10/325) 1 tab PRN Q6HRS PRN PO PAIN 06/19/21 17:00 07/20/21 20:33 Potassium Chloride (Klor-Con) 30 meq DAILY PO 06/20/21 09:00 07/21/21 09:33 Trazodone HCl (Desyrel) 150 mg HS PO 06/19/21 21:00 07/06/21 14:47 DC 07/05/21 20:25 Atorvastatin Calcium (Lipitor) 80 mg QHS PO 06/19/21 21:00 07/21/21 20:07 Carvedilol (Coreg) 37.5 mg BID PO 06/19/21 21:00 07/21/21 20:07 Insulin Human Lispro (HumaLOG) 12 units TIDBFRMEAL SQ 06/20/21 07:30 07/07/21 11:53 DC 06/24/21 12:43 Insulin Glargine (Lantus Syringe) 48 unit QHS SQ 06/19/21 21:00 07/04/21 12:27 DC Multivitamins/ Calcium (Thera-M Plus) 1 tab DAILY PO 06/20/21 09:00 07/21/21 09:32 Linagliptin (Tradjenta) 5 mg DAILY PO 06/20/21 09:00 07/21/21 09:32 Olanzapine (ZyPREXA ZYDIS) 2.5 mg PRN Q2HR PRN PO PSYCHOSIS 06/20/21 03:15 07/06/21 22:40 Duloxetine HCl (Cymbalta) 60 mg DAILY PO 06/21/21 09:00 07/21/21 09:32 Bupropion HCl (Wellbutrin Xl) 150 mg DAILY PO 06/21/21 09:00 06/25/21 21:00 DC 06/25/21 09:55 Bupropion HCl (Wellbutrin Xl) 300 mg DAILY PO 06/26/21 09:00 07/12/21 15:31 DC 07/12/21 08:04 Docusate Sodium (Colace) 100 mg DAILY PO 06/22/21 09:00 06/22/21 00:17 DC Lamotrigine (LaMICtal) 25 mg QHS PO 06/21/21 21:00 06/23/21 23:59 DC 06/23/21 19:55 Lamotrigine (LaMICtal) 50 mg QHS PO 06/24/21 21:00 06/26/21 23:59 DC 06/26/21 20:39 Lamotrigine (LaMICtal) 75 mg QHS PO 06/27/21 21:00 06/29/21 23:55 DC 06/29/21 20:02 Lamotrigine (LaMICtal) 100 mg QHS PO 06/30/21 21:00 07/21/21 20:06 Docusate Sodium (Colace) 100 mg BID PO 06/22/21 09:00 07/21/21 20:08 Nystatin (Nystop) 1 neelima BID TP 06/25/21 21:00 07/21/21 20:11 Trazodone HCl (Desyrel) 100 mg PRN QHS PRN PO INSOMNIA 06/26/21 12:00 07/06/21 14:47 DC 07/05/21 22:40 Aripiprazole (Abilify) 10 mg DAILY PO 06/29/21 09:00 07/06/21 14:47 DC 07/06/21 07:48 Doxepin HCl (SINEquan) 10 mg QHS PO 06/28/21 21:00 07/12/21 15:31 DC 07/11/21 20:16 Furosemide (Lasix) 40 mg DAILY PO 06/30/21 09:00 07/21/21 09:31 Magnesium Citrate (Citroma) 296 ml PRN 1X PRN PO 2ND CHOICE CONSTIPATION 07/04/21 12:30 07/04/21 13:03 Aripiprazole (Abilify) 15 mg DAILY PO 07/07/21 09:00 07/21/21 09:32 Trazodone HCl (Desyrel) 250 mg HS PO 07/06/21 21:00 07/09/21 13:32 DC 07/08/21 19:32 Insulin Human Lispro (HumaLOG) 0-5 UNITS TIDWMEALS SQ 07/07/21 12:00 07/18/21 09:02 Dextrose (Dextrose 50%-Water Syringe) 12.5 gm PRN Q15MIN PRN IV SEE COMMENTS 07/07/21 12:00 Trazodone HCl (Desyrel) 100 mg HS PO 07/09/21 21:00 07/21/21 20:07 Trazodone HCl (Desyrel) 50 mg PRN QHS PRN PO insomnia 07/09/21 13:30 07/15/21 01:08 Mirtazapine (Remeron) 22.5 mg QHS PO 07/09/21 21:00 07/12/21 15:31 DC 07/11/21 20:13 Bupropion HCl (Wellbutrin Xl) 150 mg DAILY PO 07/13/21 09:00 07/21/21 09:32 Mirtazapine (Remeron) 30 mg QHS PO 07/12/21 21:00 07/21/21 20:08 Duloxetine HCl (Cymbalta) 30 mg AFTRNOON PO 07/13/21 13:00 07/21/21 13:04 Neomycin/ Polymyxin/ Bacitracin (Triple Antibiotic Ointment) 1 pkt BID TP 07/14/21 21:00 07/21/21 20:07 I have reviewed the current psychotropics carefully including drug interactions. Risk benefit ratio favors no change other than as noted in my dictated progress note. Diagnosis: Problems: (1) Impulse control disorder, unspecified (2) Personality disorder, unspecified (3) Anxiety disorder, unspecified (4) Major depressive disorder, recurrent ESE LEVI MD Jul 22, 2021 07:27
[2021-07-22] MEDS: INSULIN LISPRO 300 UNITS/3 ML VIAL. SQ SCH ×3 (08:00→17:00)
[2021-07-22] MEDS: NEOMY/BACITR/POLYMYXIN OINT PACKET. TP SCH ×2 (09:07→20:05)
[2021-07-22] MEDS: NYSTATIN TOPICAL POWDER 15GM BOTTLE. TP SCH ×2 (09:07→21:18)
[2021-07-22] MEDS: POTASSIUM CHLORIDE 10 MEQ TABLET.ER. PO SCH (09:08)
[2021-07-22] MEDS: CLOPIDOGREL BISULFATE 75 MG TABLET PO SCH (09:08)
[2021-07-22] MEDS: ASPIRIN CHEWABLE 81 MG TABLET. PO SCH (09:09)
[2021-07-22] MEDS: LINAGLIPTIN 5 MG TABLET PO SCH (09:09)
[2021-07-22] MEDS: ARIPiprazole 15 MG TABLET PO SCH (09:09)
[2021-07-22] MEDS: CARVEDILOL 12.5 MG TABLET PO SCH ×2 (09:09→20:06)
[2021-07-22] MEDS: DULoxetine HCL 30 MG CAPSULE.DR PO SCH ×2 (09:09→14:05)
[2021-07-22] MEDS: buPROPion XL 150 MG TAB.ER.24H PO SCH (09:09)
[2021-07-22] MEDS: MULTIVITAMIN with MINERAL TABLET. PO SCH (09:09)
[2021-07-22] MEDS: DOCUSATE SODIUM 100 MG CAPSULE PO SCH ×2 (09:09→20:04)
[2021-07-22] MEDS: FUROSEMIDE 40 MG TABLET PO SCH (09:10)
[2021-07-22] MEDS: MAGNESIUM HYDROXIDE 2,400 MG/30 ML ORAL.SUSP. PO PRN (14:06)
[2021-07-22 16:16] VITALS: BP 129/80
[2021-07-22] MEDS: ATORVASTATIN CALCIUM 20 MG TABLET PO SCH (20:05)
[2021-07-22] MEDS: traZODone 100 MG TABLET. PO SCH (20:05)
[2021-07-22] MEDS: MIRTAZAPINE 30 MG TABLET PO SCH (20:05)
[2021-07-22] MEDS: lamoTRIgine 100 MG TABLET. PO SCH (20:06)
--- NOTE | 2021-07-22 21:12 | PDOC ---
Exam Note: Josef Note: Please also refer to the separate dictated note~for this date of service dictated separately.~Patient seen individually. Discussed the patient with Nursing staff reviewed the chart.~Reviewed interim history and current functioning. Reviewed vital signs,~Labs/ Radiology~and current medications noted below. Continue current treatment with the changes noted in the dictated addendum note Assessment: Vital Signs/I&O: Vital Signs Date Time Temp Pulse Resp B/P (MAP) Pulse Ox O2 Delivery O2 Flow Rate FiO2 07/22/21 20:06 93 129/80 07/22/21 16:16 98.0 20 97 07/22/21 05:50 3.0 07/21/21 15:42 Room Air I & O 07/21/21 07/21/21 07/22/21 15:00 23:00 07:00 Intake Total 720 ml 480 ml Balance 720 ml 480 ml Labs: Laboratory Tests Test 07/22/21 06:00 07/22/21 07:29 07/22/21 14:02 07/22/21 16:51 SARS-CoV-2 (PCR) Not detected (NOT DETECTD) Glucose (Fingerstick) 137 mg/dL (70-99) H 147 mg/dL (70-99) H 138 mg/dL (70-99) H Test 07/22/21 19:37 Glucose (Fingerstick) 128 mg/dL (70-99) H Current Medications: Meds: Laboratory Tests Test 07/22/21 06:00 07/22/21 07:29 07/22/21 14:02 07/22/21 16:51 Coronavirus (COVID-19)(PCR) Not detected Glucose (Fingerstick) 137 mg/dL 147 mg/dL 138 mg/dL Test 07/22/21 19:37 Glucose (Fingerstick) 128 mg/dL Current Medications Medications (Trade) Dose Ordered Sig/Nicky Route PRN Reason Start Time Stop Time Status Last Admin Dose Admin Acetaminophen (Tylenol) 650 mg PRN Q6HRS PRN PO MILD PAIN / TEMP > 100.3'F 06/19/21 17:00 07/19/21 10:25 Multi-Ingredient Ointment (Analgesic [place]) 1 neelima PRN QID PRN TP MUSCLE PAIN 06/19/21 17:00 Al Hydroxide/Mg Hydroxide (Mylanta Plus Xs) 15 ml PRN AFTMEALHC PRN PO DYSPEPSIA 06/19/21 17:00 07/20/21 15:31 Magnesium Hydroxide (Milk Of Magnesia) 2,400 mg PRN QHS PRN PO 1ST CHOICE CONSTIPATION 06/19/21 17:00 07/22/21 14:06 Aripiprazole (Abilify) 7.5 mg DAILY PO 06/20/21 09:00 06/28/21 15:42 DC 06/28/21 08:15 Aspirin (Aspirin Chewable) 81 mg DAILY PO 06/20/21 09:00 07/22/21 09:09 Clopidogrel Bisulfate (Plavix) 75 mg DAILY PO 06/20/21 09:00 07/22/21 09:08 Duloxetine HCl (Cymbalta) 90 mg DAILY PO 06/20/21 09:00 06/20/21 18:46 DC 06/20/21 09:53 Oxycodone/ Acetaminophen (Percocet 10/325) 1 tab PRN Q6HRS PRN PO PAIN 06/19/21 17:00 07/20/21 20:33 Potassium Chloride (Klor-Con) 30 meq DAILY PO 06/20/21 09:00 07/22/21 09:08 Trazodone HCl (Desyrel) 150 mg HS PO 06/19/21 21:00 07/06/21 14:47 DC 07/05/21 20:25 Atorvastatin Calcium (Lipitor) 80 mg QHS PO 06/19/21 21:00 07/22/21 20:05 Carvedilol (Coreg) 37.5 mg BID PO 06/19/21 21:00 07/22/21 20:06 Insulin Human Lispro (HumaLOG) 12 units TIDBFRMEAL SQ 06/20/21 07:30 07/07/21 11:53 DC 06/24/21 12:43 Insulin Glargine (Lantus Syringe) 48 unit QHS SQ 06/19/21 21:00 07/04/21 12:27 DC Multivitamins/ Calcium (Thera-M Plus) 1 tab DAILY PO 06/20/21 09:00 07/22/21 09:09 Linagliptin (Tradjenta) 5 mg DAILY PO 06/20/21 09:00 07/22/21 09:09 Olanzapine (ZyPREXA ZYDIS) 2.5 mg PRN Q2HR PRN PO PSYCHOSIS 06/20/21 03:15 07/06/21 22:40 Duloxetine HCl (Cymbalta) 60 mg DAILY PO 06/21/21 09:00 07/22/21 09:09 Bupropion HCl (Wellbutrin Xl) 150 mg DAILY PO 06/21/21 09:00 06/25/21 21:00 DC 06/25/21 09:55 Bupropion HCl (Wellbutrin Xl) 300 mg DAILY PO 06/26/21 09:00 07/12/21 15:31 DC 07/12/21 08:04 Docusate Sodium (Colace) 100 mg DAILY PO 06/22/21 09:00 06/22/21 00:17 DC Lamotrigine (LaMICtal) 25 mg QHS PO 06/21/21 21:00 06/23/21 23:59 DC 06/23/21 19:55 Lamotrigine (LaMICtal) 50 mg QHS PO 06/24/21 21:00 06/26/21 23:59 DC 06/26/21 20:39 Lamotrigine (LaMICtal) 75 mg QHS PO 06/27/21 21:00 06/29/21 23:55 DC 06/29/21 20:02 Lamotrigine (LaMICtal) 100 mg QHS PO 06/30/21 21:00 07/22/21 20:06 Docusate Sodium (Colace) 100 mg BID PO 06/22/21 09:00 07/22/21 20:04 Nystatin (Nystop) 1 neelima BID TP 06/25/21 21:00 07/22/21 09:07 Trazodone HCl (Desyrel) 100 mg PRN QHS PRN PO INSOMNIA 06/26/21 12:00 07/06/21 14:47 DC 07/05/21 22:40 Aripiprazole (Abilify) 10 mg DAILY PO 06/29/21 09:00 07/06/21 14:47 DC 07/06/21 07:48 Doxepin HCl (SINEquan) 10 mg QHS PO 06/28/21 21:00 07/12/21 15:31 DC 07/11/21 20:16 Furosemide (Lasix) 40 mg DAILY PO 06/30/21 09:00 07/22/21 09:10 Magnesium Citrate (Citroma) 296 ml PRN 1X PRN PO 2ND CHOICE CONSTIPATION 07/04/21 12:30 07/04/21 13:03 Aripiprazole (Abilify) 15 mg DAILY PO 07/07/21 09:00 07/22/21 09:09 Trazodone HCl (Desyrel) 250 mg HS PO 07/06/21 21:00 07/09/21 13:32 DC 07/08/21 19:32 Insulin Human Lispro (HumaLOG) 0-5 UNITS TIDWMEALS SQ 07/07/21 12:00 07/18/21 09:02 Dextrose (Dextrose 50%-Water Syringe) 12.5 gm PRN Q15MIN PRN IV SEE COMMENTS 07/07/21 12:00 Trazodone HCl (Desyrel) 100 mg HS PO 07/09/21 21:00 07/22/21 20:05 Trazodone HCl (Desyrel) 50 mg PRN QHS PRN PO insomnia 07/09/21 13:30 07/15/21 01:08 Mirtazapine (Remeron) 22.5 mg QHS PO 07/09/21 21:00 07/12/21 15:31 DC 07/11/21 20:13 Bupropion HCl (Wellbutrin Xl) 150 mg DAILY PO 07/13/21 09:00 07/22/21 09:09 Mirtazapine (Remeron) 30 mg QHS PO 07/12/21 21:00 07/22/21 20:05 Duloxetine HCl (Cymbalta) 30 mg AFTRNOON PO 07/13/21 13:00 07/22/21 14:05 Neomycin/ Polymyxin/ Bacitracin (Triple Antibiotic Ointment) 1 pkt BID TP 07/14/21 21:00 07/22/21 20:05 I have reviewed the current psychotropics carefully including drug interactions. Risk benefit ratio favors no change other than as noted in my dictated progress note. Diagnosis: Problems: (1) Impulse control disorder, unspecified (2) Anxiety disorder, unspecified (3) Major depressive disorder, recurrent AMITAESE MD Jul 22, 2021 21:12
[2021-07-22] MEDS: traZODone 50 MG TABLET. PO PRN (21:23)
[2021-07-22] MEDS: ACETAMINOPHEN 325 MG TABLET PO PRN (21:23)
[2021-07-23 06:05] VITALS: BP 123/77
--- NOTE | 2021-07-23 06:39 | PDOC ---
Exam Note: Josef Note: This note is a late entry for 07/22/2021 covers elements not covered in my initial note. Subjective: The patient was seen on telehealth rounds in the evening of 07/22/2021 due to COVID-19 exposure on our unit. Discussed with Manuel MODI and reviewed the chart. The patient slept 3-1/2 hours previous night. Patient has had a poor appetite though he minimizes this. So far he is Covid screen negative. He has not been agitated or disruptive or not urinating on the floor which is an improvement. Review of Systems: Ambulation impaired. No CV, , pulmonary, eye, ENT system symptoms on review. Mental Status Exam: The patient is awake, alert, and oriented. He is quite animated, verbal, interactive, quite excited to see me and expressed this. Speech coherent. Abstraction fair. Computation impaired. Language function intact. Mood and affect improved. No suicidal or homicidal ideation. Laboratory Data: Reviewed. Impression: Major depressive disorder, recurrent, rule out psychotic features. Anxiety disorder unspecified. Plan: Continue current psychotropics. Assessment: Vital Signs/I&O: Vital Signs Date Time Temp Pulse Resp B/P (MAP) Pulse Ox O2 Delivery O2 Flow Rate FiO2 07/23/21 06:05 98.3 88 20 123/77 (92) 94 3.0 07/21/21 15:42 Room Air I & O 07/22/21 07/22/21 07/23/21 15:00 23:00 07:00 Intake Total 120 ml 240 ml Balance 120 ml 240 ml Labs: Laboratory Tests Test 07/22/21 07:29 07/22/21 14:02 07/22/21 16:51 07/22/21 19:37 Glucose (Fingerstick) 137 mg/dL (70-99) H 147 mg/dL (70-99) H 138 mg/dL (70-99) H 128 mg/dL (70-99) H Current Medications: Meds: Laboratory Tests Test 07/22/21 07:29 07/22/21 14:02 07/22/21 16:51 07/22/21 19:37 Glucose (Fingerstick) 137 mg/dL 147 mg/dL 138 mg/dL 128 mg/dL Current Medications Medications (Trade) Dose Ordered Sig/Nicky Route PRN Reason Start Time Stop Time Status Last Admin Dose Admin Acetaminophen (Tylenol) 650 mg PRN Q6HRS PRN PO MILD PAIN / TEMP > 100.3'F 06/19/21 17:00 07/22/21 21:23 Multi-Ingredient Ointment (Analgesic [place]) 1 neelima PRN QID PRN TP MUSCLE PAIN 06/19/21 17:00 Al Hydroxide/Mg Hydroxide (Mylanta Plus Xs) 15 ml PRN AFTMEALHC PRN PO DYSPEPSIA 06/19/21 17:00 07/20/21 15:31 Magnesium Hydroxide (Milk Of Magnesia) 2,400 mg PRN QHS PRN PO 1ST CHOICE CONSTIPATION 06/19/21 17:00 07/22/21 14:06 Aripiprazole (Abilify) 7.5 mg DAILY PO 06/20/21 09:00 06/28/21 15:42 DC 06/28/21 08:15 Aspirin (Aspirin Chewable) 81 mg DAILY PO 06/20/21 09:00 07/22/21 09:09 Clopidogrel Bisulfate (Plavix) 75 mg DAILY PO 06/20/21 09:00 07/22/21 09:08 Duloxetine HCl (Cymbalta) 90 mg DAILY PO 06/20/21 09:00 06/20/21 18:46 DC 06/20/21 09:53 Oxycodone/ Acetaminophen (Percocet 10/325) 1 tab PRN Q6HRS PRN PO PAIN 06/19/21 17:00 07/20/21 20:33 Potassium Chloride (Klor-Con) 30 meq DAILY PO 06/20/21 09:00 07/22/21 09:08 Trazodone HCl (Desyrel) 150 mg HS PO 06/19/21 21:00 07/06/21 14:47 DC 07/05/21 20:25 Atorvastatin Calcium (Lipitor) 80 mg QHS PO 06/19/21 21:00 07/22/21 20:05 Carvedilol (Coreg) 37.5 mg BID PO 06/19/21 21:00 07/22/21 20:06 Insulin Human Lispro (HumaLOG) 12 units TIDBFRMEAL SQ 06/20/21 07:30 07/07/21 11:53 DC 06/24/21 12:43 Insulin Glargine (Lantus Syringe) 48 unit QHS SQ 06/19/21 21:00 07/04/21 12:27 DC Multivitamins/ Calcium (Thera-M Plus) 1 tab DAILY PO 06/20/21 09:00 07/22/21 09:09 Linagliptin (Tradjenta) 5 mg DAILY PO 06/20/21 09:00 07/22/21 09:09 Olanzapine (ZyPREXA ZYDIS) 2.5 mg PRN Q2HR PRN PO PSYCHOSIS 06/20/21 03:15 07/06/21 22:40 Duloxetine HCl (Cymbalta) 60 mg DAILY PO 06/21/21 09:00 07/22/21 09:09 Bupropion HCl (Wellbutrin Xl) 150 mg DAILY PO 06/21/21 09:00 06/25/21 21:00 DC 06/25/21 09:55 Bupropion HCl (Wellbutrin Xl) 300 mg DAILY PO 06/26/21 09:00 07/12/21 15:31 DC 07/12/21 08:04 Docusate Sodium (Colace) 100 mg DAILY PO 06/22/21 09:00 06/22/21 00:17 DC Lamotrigine (LaMICtal) 25 mg QHS PO 06/21/21 21:00 06/23/21 23:59 DC 06/23/21 19:55 Lamotrigine (LaMICtal) 50 mg QHS PO 06/24/21 21:00 06/26/21 23:59 DC 06/26/21 20:39 Lamotrigine (LaMICtal) 75 mg QHS PO 06/27/21 21:00 06/29/21 23:55 DC 06/29/21 20:02 Lamotrigine (LaMICtal) 100 mg QHS PO 06/30/21 21:00 07/22/21 20:06 Docusate Sodium (Colace) 100 mg BID PO 06/22/21 09:00 07/22/21 20:04 Nystatin (Nystop) 1 neelima BID TP 06/25/21 21:00 07/22/21 21:18 Trazodone HCl (Desyrel) 100 mg PRN QHS PRN PO INSOMNIA 06/26/21 12:00 07/06/21 14:47 DC 07/05/21 22:40 Aripiprazole (Abilify) 10 mg DAILY PO 06/29/21 09:00 07/06/21 14:47 DC 07/06/21 07:48 Doxepin HCl (SINEquan) 10 mg QHS PO 06/28/21 21:00 07/12/21 15:31 DC 07/11/21 20:16 Furosemide (Lasix) 40 mg DAILY PO 06/30/21 09:00 07/22/21 09:10 Magnesium Citrate (Citroma) 296 ml PRN 1X PRN PO 2ND CHOICE CONSTIPATION 07/04/21 12:30 07/04/21 13:03 Aripiprazole (Abilify) 15 mg DAILY PO 07/07/21 09:00 07/22/21 09:09 Trazodone HCl (Desyrel) 250 mg HS PO 07/06/21 21:00 07/09/21 13:32 DC 07/08/21 19:32 Insulin Human Lispro (HumaLOG) 0-5 UNITS TIDWMEALS SQ 07/07/21 12:00 07/18/21 09:02 Dextrose (Dextrose 50%-Water Syringe) 12.5 gm PRN Q15MIN PRN IV SEE COMMENTS 07/07/21 12:00 Trazodone HCl (Desyrel) 100 mg HS PO 07/09/21 21:00 07/22/21 20:05 Trazodone HCl (Desyrel) 50 mg PRN QHS PRN PO insomnia 07/09/21 13:30 07/22/21 21:23 Mirtazapine (Remeron) 22.5 mg QHS PO 07/09/21 21:00 07/12/21 15:31 DC 07/11/21 20:13 Bupropion HCl (Wellbutrin Xl) 150 mg DAILY PO 07/13/21 09:00 07/22/21 09:09 Mirtazapine (Remeron) 30 mg QHS PO 07/12/21 21:00 07/22/21 20:05 Duloxetine HCl (Cymbalta) 30 mg AFTRNOON PO 07/13/21 13:00 07/22/21 14:05 Neomycin/ Polymyxin/ Bacitracin (Triple Antibiotic Ointment) 1 pkt BID TP 1/3/22 21:00 07/22/21 20:05 I have reviewed the current psychotropics carefully including drug interactions. Risk benefit ratio favors no change other than as noted in my dictated progress note. Diagnosis: Problems: (1) Impulse control disorder, unspecified (2) Personality disorder, unspecified (3) Anxiety disorder, unspecified (4) Major depressive disorder, recurrent ESE LEVI MD Jul 23, 2021 06:39
[2021-07-23] MEDS: INSULIN LISPRO 300 UNITS/3 ML VIAL. SQ SCH ×3 (07:48→17:00)
[2021-07-23] MEDS: NYSTATIN TOPICAL POWDER 15GM BOTTLE. TP SCH ×2 (09:04→20:33)
[2021-07-23] MEDS: CARVEDILOL 12.5 MG TABLET PO SCH ×2 (09:05→20:33)
[2021-07-23] MEDS: ARIPiprazole 15 MG TABLET PO SCH (09:06)
[2021-07-23] MEDS: LINAGLIPTIN 5 MG TABLET PO SCH (09:06)
[2021-07-23] MEDS: DULoxetine HCL 30 MG CAPSULE.DR PO SCH ×2 (09:06→13:22)
[2021-07-23] MEDS: FUROSEMIDE 40 MG TABLET PO SCH (09:06)
[2021-07-23] MEDS: buPROPion XL 150 MG TAB.ER.24H PO SCH (09:06)
[2021-07-23] MEDS: NEOMY/BACITR/POLYMYXIN OINT PACKET. TP SCH ×2 (09:07→20:34)
[2021-07-23] MEDS: POTASSIUM CHLORIDE 10 MEQ TABLET.ER. PO SCH (09:07)
[2021-07-23] MEDS: MULTIVITAMIN with MINERAL TABLET. PO SCH (09:07)
[2021-07-23] MEDS: CLOPIDOGREL BISULFATE 75 MG TABLET PO SCH (09:07)
[2021-07-23] MEDS: DOCUSATE SODIUM 100 MG CAPSULE PO SCH ×2 (09:07→20:33)
[2021-07-23] MEDS: ASPIRIN CHEWABLE 81 MG TABLET. PO SCH (09:07)
[2021-07-23 15:19] VITALS: BP 132/88
[2021-07-23] MEDS: traZODone 100 MG TABLET. PO SCH (20:33)
[2021-07-23] MEDS: MIRTAZAPINE 30 MG TABLET PO SCH (20:33)
[2021-07-23] MEDS: ATORVASTATIN CALCIUM 20 MG TABLET PO SCH (20:33)
[2021-07-23] MEDS: lamoTRIgine 100 MG TABLET. PO SCH (20:33)
--- NOTE | 2021-07-23 20:56 | PDOC ---
Exam Note: Josef Note: Please also refer to the separate dictated note~for this date of service dictated separately.~Patient seen individually. Discussed the patient with Nursing staff reviewed the chart.~Reviewed interim history and current functioning. Reviewed vital signs,~Labs/ Radiology~and current medications noted below. Continue current treatment with the changes noted in the dictated addendum note Assessment: Vital Signs/I&O: Vital Signs Date Time Temp Pulse Resp B/P (MAP) Pulse Ox O2 Delivery O2 Flow Rate FiO2 07/23/21 20:33 90 132/88 07/23/21 15:19 97.6 20 96 Room Air 07/23/21 06:05 3.0 I & O 07/22/21 07/22/21 07/23/21 15:00 23:00 07:00 Intake Total 120 ml 240 ml Balance 120 ml 240 ml Labs: Laboratory Tests Test 07/23/21 07:26 07/23/21 11:33 07/23/21 17:13 07/23/21 19:41 Glucose (Fingerstick) 130 mg/dL (70-99) H 166 mg/dL (70-99) H 143 mg/dL (70-99) H 182 mg/dL (70-99) H Current Medications: Meds: Laboratory Tests Test 07/23/21 07:26 07/23/21 11:33 07/23/21 17:13 07/23/21 19:41 Glucose (Fingerstick) 130 mg/dL 166 mg/dL 143 mg/dL 182 mg/dL Current Medications Medications (Trade) Dose Ordered Sig/Nicky Route PRN Reason Start Time Stop Time Status Last Admin Dose Admin Acetaminophen (Tylenol) 650 mg PRN Q6HRS PRN PO MILD PAIN / TEMP > 100.3'F 06/19/21 17:00 07/22/21 21:23 Multi-Ingredient Ointment (Analgesic [place]) 1 neelima PRN QID PRN TP MUSCLE PAIN 06/19/21 17:00 Al Hydroxide/Mg Hydroxide (Mylanta Plus Xs) 15 ml PRN AFTMEALHC PRN PO DYSPEPSIA 06/19/21 17:00 07/20/21 15:31 Magnesium Hydroxide (Milk Of Magnesia) 2,400 mg PRN QHS PRN PO 1ST CHOICE CONSTIPATION 06/19/21 17:00 07/22/21 14:06 Aripiprazole (Abilify) 7.5 mg DAILY PO 06/20/21 09:00 06/28/21 15:42 DC 06/28/21 08:15 Aspirin (Aspirin Chewable) 81 mg DAILY PO 06/20/21 09:00 07/23/21 09:07 Clopidogrel Bisulfate (Plavix) 75 mg DAILY PO 06/20/21 09:00 07/23/21 09:07 Duloxetine HCl (Cymbalta) 90 mg DAILY PO 06/20/21 09:00 06/20/21 18:46 DC 06/20/21 09:53 Oxycodone/ Acetaminophen (Percocet 10/325) 1 tab PRN Q6HRS PRN PO PAIN 06/19/21 17:00 07/20/21 20:33 Potassium Chloride (Klor-Con) 30 meq DAILY PO 06/20/21 09:00 07/23/21 09:07 Trazodone HCl (Desyrel) 150 mg HS PO 06/19/21 21:00 07/06/21 14:47 DC 07/05/21 20:25 Atorvastatin Calcium (Lipitor) 80 mg QHS PO 06/19/21 21:00 07/23/21 20:33 Carvedilol (Coreg) 37.5 mg BID PO 06/19/21 21:00 07/23/21 20:33 Insulin Human Lispro (HumaLOG) 12 units TIDBFRMEAL SQ 06/20/21 07:30 07/07/21 11:53 DC 06/24/21 12:43 Insulin Glargine (Lantus Syringe) 48 unit QHS SQ 06/19/21 21:00 07/04/21 12:27 DC Multivitamins/ Calcium (Thera-M Plus) 1 tab DAILY PO 06/20/21 09:00 07/23/21 09:07 Linagliptin (Tradjenta) 5 mg DAILY PO 06/20/21 09:00 07/23/21 09:06 Olanzapine (ZyPREXA ZYDIS) 2.5 mg PRN Q2HR PRN PO PSYCHOSIS 06/20/21 03:15 07/06/21 22:40 Duloxetine HCl (Cymbalta) 60 mg DAILY PO 06/21/21 09:00 07/23/21 09:06 Bupropion HCl (Wellbutrin Xl) 150 mg DAILY PO 06/21/21 09:00 06/25/21 21:00 DC 06/25/21 09:55 Bupropion HCl (Wellbutrin Xl) 300 mg DAILY PO 06/26/21 09:00 07/12/21 15:31 DC 07/12/21 08:04 Docusate Sodium (Colace) 100 mg DAILY PO 06/22/21 09:00 06/22/21 00:17 DC Lamotrigine (LaMICtal) 25 mg QHS PO 06/21/21 21:00 06/23/21 23:59 DC 06/23/21 19:55 Lamotrigine (LaMICtal) 50 mg QHS PO 06/24/21 21:00 06/26/21 23:59 DC 06/26/21 20:39 Lamotrigine (LaMICtal) 75 mg QHS PO 06/27/21 21:00 06/29/21 23:55 DC 06/29/21 20:02 Lamotrigine (LaMICtal) 100 mg QHS PO 06/30/21 21:00 07/23/21 20:33 Docusate Sodium (Colace) 100 mg BID PO 06/22/21 09:00 07/23/21 20:33 Nystatin (Nystop) 1 neelima BID TP 06/25/21 21:00 07/23/21 20:33 Trazodone HCl (Desyrel) 100 mg PRN QHS PRN PO INSOMNIA 06/26/21 12:00 07/06/21 14:47 DC 07/05/21 22:40 Aripiprazole (Abilify) 10 mg DAILY PO 06/29/21 09:00 07/06/21 14:47 DC 07/06/21 07:48 Doxepin HCl (SINEquan) 10 mg QHS PO 06/28/21 21:00 07/12/21 15:31 DC 07/11/21 20:16 Furosemide (Lasix) 40 mg DAILY PO 06/30/21 09:00 07/23/21 09:06 Magnesium Citrate (Citroma) 296 ml PRN 1X PRN PO 2ND CHOICE CONSTIPATION 07/04/21 12:30 07/04/21 13:03 Aripiprazole (Abilify) 15 mg DAILY PO 07/07/21 09:00 07/23/21 09:06 Trazodone HCl (Desyrel) 250 mg HS PO 07/06/21 21:00 07/09/21 13:32 DC 07/08/21 19:32 Insulin Human Lispro (HumaLOG) 0-5 UNITS TIDWMEALS SQ 07/07/21 12:00 07/18/21 09:02 Dextrose (Dextrose 50%-Water Syringe) 12.5 gm PRN Q15MIN PRN IV SEE COMMENTS 07/07/21 12:00 Trazodone HCl (Desyrel) 100 mg HS PO 07/09/21 21:00 07/23/21 20:33 Trazodone HCl (Desyrel) 50 mg PRN QHS PRN PO insomnia 07/09/21 13:30 07/22/21 21:23 Mirtazapine (Remeron) 22.5 mg QHS PO 07/09/21 21:00 07/12/21 15:31 DC 07/11/21 20:13 Bupropion HCl (Wellbutrin Xl) 150 mg DAILY PO 07/13/21 09:00 07/23/21 09:06 Mirtazapine (Remeron) 30 mg QHS PO 07/12/21 21:00 07/23/21 20:33 Duloxetine HCl (Cymbalta) 30 mg AFTRNOON PO 07/13/21 13:00 07/23/21 13:22 Neomycin/ Polymyxin/ Bacitracin (Triple Antibiotic Ointment) 1 pkt BID TP 07/14/21 21:00 07/23/21 20:34 I have reviewed the current psychotropics carefully including drug interactions. Risk benefit ratio favors no change other than as noted in my dictated progress note. Diagnosis: Problems: (1) Impulse control disorder, unspecified (2) Anxiety disorder, unspecified (3) Major depressive disorder, recurrent ESE LEVI MD Jul 23, 2021 20:56
[2021-07-23] MEDS: ACETAMINOPHEN 325 MG TABLET PO PRN (23:23)
[2021-07-24 06:34] VITALS: BP 124/90
[2021-07-24] MEDS: INSULIN LISPRO 300 UNITS/3 ML VIAL. SQ SCH ×3 (08:00→17:00)
[2021-07-24 08:25] LABS: BASO % 0 % (0-3); EOS # 0.2 x10^3/uL (0.0-0.7); EOS % 3 % (0-3); HEMATOCRIT 34.7 % (39.0-53.0); HEMOGLOBIN 11.2 g/dL (13.0-17.5); LYMPH # 0.8 x10^3/uL (1.0-4.8); LYMPH % 12 % (24-48); MEAN CORPUSCULAR HEMOGLOBIN 31 pg (25-35); MEAN CORPUSCULAR HGB CONC 32 g/dL (31-37); MEAN CORPUSCULAR VOLUME 97 fL (79-100); MONO # 0.7 x10^3/uL (0.0-1.1); MONO % 10 % (0-9); NEUT % 74 % (31-73); PLATELET COUNT 238 x10^3/uL (140-400); RED BLOOD COUNT 3.57 x10^6/uL (4.30-5.70); RED CELL DISTRIBUTION WIDTH 18.1 % (11.5-14.5); WHITE BLOOD COUNT 6.8 x10^3/uL (4.0-11.0)
[2021-07-24 08:38] LABS: ALBUMIN 2.4 g/dL (3.4-5.0); ALBUMIN/GLOBULIN RATIO 0.8 (1.0-1.7); GFR 74.5; POTASSIUM 3.9 mmol/L (3.5-5.1); TOTAL BILIRUBIN 0.6 mg/dL (0.2-1.0); TOTAL PROTEIN 5.6 g/dL (6.4-8.2)
[2021-07-24] MEDS: DULoxetine HCL 30 MG CAPSULE.DR PO SCH ×2 (09:00→13:39)
[2021-07-24] MEDS: ARIPiprazole 15 MG TABLET PO SCH (09:00)
[2021-07-24] MEDS: ASPIRIN CHEWABLE 81 MG TABLET. PO SCH (09:00)
[2021-07-24] MEDS: NEOMY/BACITR/POLYMYXIN OINT PACKET. TP SCH ×2 (09:00→20:21)
[2021-07-24] MEDS: CARVEDILOL 12.5 MG TABLET PO SCH ×2 (09:00→20:20)
[2021-07-24] MEDS: DOCUSATE SODIUM 100 MG CAPSULE PO SCH ×2 (09:00→20:20)
[2021-07-24] MEDS: FUROSEMIDE 40 MG TABLET PO SCH (09:00)
[2021-07-24] MEDS: CLOPIDOGREL BISULFATE 75 MG TABLET PO SCH (09:00)
[2021-07-24] MEDS: NYSTATIN TOPICAL POWDER 15GM BOTTLE. TP SCH ×2 (09:00→20:21)
[2021-07-24] MEDS: buPROPion XL 150 MG TAB.ER.24H PO SCH (09:00)
[2021-07-24] MEDS: POTASSIUM CHLORIDE 10 MEQ TABLET.ER. PO SCH (09:00)
[2021-07-24] MEDS: LINAGLIPTIN 5 MG TABLET PO SCH (09:00)
[2021-07-24] MEDS: MULTIVITAMIN with MINERAL TABLET. PO SCH (09:00)
--- NOTE | 2021-07-24 11:49 | TX PLAN ---
Interdisciplinary Tx Plan Admission Information Jun 19, 2021 at 16:45 Legal Status (on Admission): Voluntary DPOA/Guardian Name: SonSharri Maravilla (not enacted at this time as pt is a self sign) Contact Other Contact Name: Luanne Boyle Contact Verified Code Status: Full Code Allergies: Coded Allergies: No Known Drug Allergies (Unverified , 04/25/21) Diagnoses Primary Diagnosis: 1) Major depressive disorder, recurrent, severe with psychotic features (2) Impulse control disorder, unspecified (3) Personality disorder, unspecified (4) Anxiety disorder, unspecified Problem in Patient's Words: I am terribly depressed and anxious. Additional Admission Comments: Per intake pt is depressed, anxious, not eating to tank blood sugar to kill himself, put himself on the floor seven times over a weekend, verbally aggressive toward staff, SI, and texted his son expressing plan to end his life. Problems Active Problems: Pt denies SI, but continues to demonstrate anxiety and depression and has a lack of interest. Pt has been banging his head with his hand. Inactive Problems: Pt has not put himself on the floor. Pt Strengths/Limitations Ability for [place]: Poor Cognitive Functioning/Ability: Good Communication Skills/Ability: Good Financial Resources: Good Insight/Judgement: Poor Intellectual Ability: Good Physical Health: Poor Social Skills: Fair Stability in Family: Fair Stability in School/Work: Fair Verbal Skills: Good Discharge Criteria Discharge Criteria: Able meet basic life need, No need for close observ., Adequate arrangements @DC, Adequate self-care, Verbal commit med comply, Improved behavior, Improved mood/thought Preliminary Discharge Plan Preliminary DC Plan: Current Living Arrange. Other Arrangements: Pt facility is looking for an alternate placement, but will accept him back Special Precautions Fall Risk: High Initial D/C Plan Pt to return to [facility]. Facility is looking for an alternate placement, but will accept him back at time of discharge. Identified Discharge Needs: None at this time. Currently Utilized Resources Currently Utilized Resources/P: PCP-Dr. Daisy Sanchez Psychiatrist-Dr. Ashley Pichardo NP DPOA (not currently enacted)-Hema Maravilla Referrals Community Resources: None at this time. Identified Problems/Hx/Goals Objectives/Short-Term Goals Short Term Goals in Patient's: Need help feeling less depressed and anxious. Interventions/Frequency Staff Interventions/Frequency&: Psychiatry to assess pt three times per week for medication management. Nursing to assess behaviors, monitor medications, and complete 15 minute checks daily. Social work to see pt at least two times weekly to aid in return to placement. Activities to encourage pt to participate in group activities daily. 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 Education: Graduated from [email or web address] in [place], [place]. Pt reports having taken some classes at the [facility]. Community Follow-up PCP Psychiatrist Community Provider/Family Inpu: Pt is a self sign and participated in the development of his own treatment plan. Treatment Plan Explained Patient/Operating Room Nurse had this treatment plan explained to him/her as indicated by the signature below and has been given the opportunity to ask questions and make suggestions: Date: Patient/Operating Room Nurse Signature: Status Update Update Pt has been eating 75% of his meals. He has requested for now to have the boxed meals as he believes they taste better. Nursing staff plan to address this with dietary. Pt has wounds on the back of his legs that continue to get opened up and need redressed. Pt is seen by the wound team who recommends that pt remain in bed for healing. Currently pt along with all others on the unit are in quarantine due to Covid spread. Pt has remained Covid negative and will be tested twice weekly. Overall, pt has been less attention seeking. He has engaged with activities and accepts the Candie to listen to music. He has been pleasant and social with the staff. Pt will not be able to discharge from the unit until his quarantine period is over which at this time is 08/03/21, but could be moved out further if he, another patient, or any staff member test positive. Pt plan will be to send referral to [facility] per request of Liam Marmolejo. If pt gets accepted at [facility], he will discharge there; otherwise, he should return to [facility]. EVE CORONA Jul 24, 2021 11:49
[2021-07-24 16:11] VITALS: BP 120/89
[2021-07-24] MEDS: ATORVASTATIN CALCIUM 20 MG TABLET PO SCH (20:17)
[2021-07-24] MEDS: traZODone 100 MG TABLET. PO SCH (20:17)
[2021-07-24] MEDS: lamoTRIgine 100 MG TABLET. PO SCH (20:18)
[2021-07-24] MEDS: MIRTAZAPINE 30 MG TABLET PO SCH (20:20)
[2021-07-24] MEDS: oxyCODONE/APAP 10/325 1 TAB TABLET PO PRN (20:24)
--- NOTE | 2021-07-24 21:11 | PDOC ---
Exam Note: Josef Note: This note is a late entry for 07/23/2021 covers elements not covered in my initial note. Subjective: The patient was seen on telehealth rounds in the evening of 07/23/2021 due to COVID-19 exposure on our unit. Discussed with Hadley MODI and reviewed the chart. The patient slept 4-1/2 hours previous night. Reviewed current and past records. Overall he is doing better. He has scratched opening a knee wound and had some bleeding but cooperative with treatment. Appetite is better. No suicidal ideation. Review of Systems: Ambulation impaired and transfers are with Shyam lift. No CV, , pulmonary, eye, ENT system symptoms on review. Mental Status Exam: The patient is reasonably oriented. Speech coherent has some latency is quite animated, verbal, appreciative of our visit. Abstraction fair. Computation impaired. Language function intact. Attention span fair. Mood and affect improved. Laboratory Data: Reviewed. Impression: Major depressive disorder, recurrent, rule out psychotic features. Anxiety disorder unspecified. Plan: Continue current psychotropics. Reviewed drug interactions, risk-benefit ratio favors no change at this time. Adjust further as clinically indicated. Assessment: Vital Signs/I&O: Vital Signs Date Time Temp Pulse Resp B/P (MAP) Pulse Ox O2 Delivery O2 Flow Rate FiO2 07/24/21 20:20 101 120/89 07/24/21 16:11 97.6 18 96 Room Air 07/23/21 06:05 3.0 I & O 07/23/21 07/23/21 07/24/21 14:59 22:59 06:59 Intake Total 840 ml 680 ml Balance 840 ml 680 ml Labs: Laboratory Tests Test 07/24/21 07:35 07/24/21 08:00 07/24/21 11:41 07/24/21 16:51 Glucose (Fingerstick) 134 mg/dL (70-99) H 155 mg/dL (70-99) H 152 mg/dL (70-99) H White Blood Count 6.8 x10^3/uL (4.0-11.0) Red Blood Count 3.57 x10^6/uL (4.30-5.70) L Hemoglobin 11.2 g/dL (13.0-17.5) L Hematocrit 34.7 % (39.0-53.0) L Mean Corpuscular Volume 97 fL (79-100) Mean Corpuscular Hemoglobin 31 pg (25-35) Mean Corpuscular Hemoglobin Concent 32 g/dL (31-37) Red Cell Distribution Width 18.1 % (11.5-14.5) H Platelet Count 238 x10^3/uL (140-400) Neutrophils (%) (Auto) 74 % (31-73) H Lymphocytes (%) (Auto) 12 % (24-48) L Monocytes (%) (Auto) 10 % (0-9) H Eosinophils (%) (Auto) 3 % (0-3) Basophils (%) (Auto) 0 % (0-3) Neutrophils # (Auto) 5.0 x10^3uL (1.8-7.7) Lymphocytes # (Auto) 0.8 x10^3/uL (1.0-4.8) L Monocytes # (Auto) 0.7 x10^3/uL (0.0-1.1) Eosinophils # (Auto) 0.2 x10^3/uL (0.0-0.7) Basophils # (Auto) 0.0 x10^3/uL (0.0-0.2) Sodium Level 141 mmol/L (136-145) Potassium Level 3.9 mmol/L (3.5-5.1) Chloride Level 104 mmol/L (98-107) Carbon Dioxide Level 30 mmol/L (21-32) Anion Gap 7 (6-14) Blood Urea Nitrogen 21 mg/dL (8-26) Creatinine 1.0 mg/dL (0.7-1.3) Estimated GFR (Cockcroft-Gault) 74.5 BUN/Creatinine Ratio 21 (6-20) H Glucose Level 138 mg/dL (70-99) H Calcium Level 8.0 mg/dL (8.5-10.1) L Total Bilirubin 0.6 mg/dL (0.2-1.0) Aspartate Amino Transferase (AST) 19 U/L (15-37) Alanine Aminotransferase (ALT) 24 U/L (16-63) Alkaline Phosphatase 87 U/L (46-116) Total Protein 5.6 g/dL (6.4-8.2) L Albumin 2.4 g/dL (3.4-5.0) L Albumin/Globulin Ratio 0.8 (1.0-1.7) L Test 07/24/21 19:12 Glucose (Fingerstick) 175 mg/dL (70-99) H Current Medications: Meds: Laboratory Tests Test 07/24/21 07:35 07/24/21 08:00 07/24/21 11:41 07/24/21 16:51 Glucose (Fingerstick) 134 mg/dL 155 mg/dL 152 mg/dL White Blood Count 6.8 x10^3/uL Red Blood Count 3.57 x10^6/uL Hemoglobin 11.2 g/dL Hematocrit 34.7 % Mean Corpuscular Volume 97 fL Mean Corpuscular Hemoglobin 31 pg Mean Corpuscular Hemoglobin Concent 32 g/dL Red Cell Distribution Width 18.1 % Platelet Count 238 x10^3/uL Neutrophils (%) (Auto) 74 % Lymphocytes (%) (Auto) 12 % Monocytes (%) (Auto) 10 % Eosinophils (%) (Auto) 3 % Basophils (%) (Auto) 0 % Neutrophils # (Auto) 5.0 x10^3uL Lymphocytes # (Auto) 0.8 x10^3/uL Monocytes # (Auto) 0.7 x10^3/uL Eosinophils # (Auto) 0.2 x10^3/uL Basophils # (Auto) 0.0 x10^3/uL Sodium Level 141 mmol/L Potassium Level 3.9 mmol/L Chloride Level 104 mmol/L Carbon Dioxide Level 30 mmol/L Anion Gap 7 Blood Urea Nitrogen 21 mg/dL Creatinine 1.0 mg/dL Estimated GFR (Cockcroft-Gault) 74.5 BUN/Creatinine Ratio 21 Glucose Level 138 mg/dL Calcium Level 8.0 mg/dL Total Bilirubin 0.6 mg/dL Aspartate Amino Transf (AST/SGOT) 19 U/L Alanine Aminotransferase (ALT/SGPT) 24 U/L Alkaline Phosphatase 87 U/L Total Protein 5.6 g/dL Albumin 2.4 g/dL Albumin/Globulin Ratio 0.8 Test 07/24/21 19:12 Glucose (Fingerstick) 175 mg/dL Current Medications Medications (Trade) Dose Ordered Sig/Nicky Route PRN Reason Start Time Stop Time Status Last Admin Dose Admin Acetaminophen (Tylenol) 650 mg PRN Q6HRS PRN PO MILD PAIN / TEMP > 100.3'F 06/19/21 17:00 07/23/21 23:23 Multi-Ingredient Ointment (Analgesic [place]) 1 neelima PRN QID PRN TP MUSCLE PAIN 06/19/21 17:00 Al Hydroxide/Mg Hydroxide (Mylanta Plus Xs) 15 ml PRN AFTMEALHC PRN PO DYSPEPSIA 06/19/21 17:00 07/20/21 15:31 Magnesium Hydroxide (Milk Of Magnesia) 2,400 mg PRN QHS PRN PO 1ST CHOICE CONSTIPATION 06/19/21 17:00 07/22/21 14:06 Aripiprazole (Abilify) 7.5 mg DAILY PO 06/20/21 09:00 06/28/21 15:42 DC 06/28/21 08:15 Aspirin (Aspirin Chewable) 81 mg DAILY PO 06/20/21 09:00 07/24/21 09:00 Clopidogrel Bisulfate (Plavix) 75 mg DAILY PO 06/20/21 09:00 07/24/21 09:00 Duloxetine HCl (Cymbalta) 90 mg DAILY PO 06/20/21 09:00 06/20/21 18:46 DC 06/20/21 09:53 Oxycodone/ Acetaminophen (Percocet 10/325) 1 tab PRN Q6HRS PRN PO PAIN 06/19/21 17:00 07/24/21 20:24 Potassium Chloride (Klor-Con) 30 meq DAILY PO 06/20/21 09:00 07/24/21 09:00 Trazodone HCl (Desyrel) 150 mg HS PO 06/19/21 21:00 07/06/21 14:47 DC 07/05/21 20:25 Atorvastatin Calcium (Lipitor) 80 mg QHS PO 06/19/21 21:00 07/24/21 20:17 Carvedilol (Coreg) 37.5 mg BID PO 06/19/21 21:00 07/24/21 20:20 Insulin Human Lispro (HumaLOG) 12 units TIDBFRMEAL SQ 06/20/21 07:30 07/07/21 11:53 DC 06/24/21 12:43 Insulin Glargine (Lantus Syringe) 48 unit QHS SQ 06/19/21 21:00 07/04/21 12:27 DC Multivitamins/ Calcium (Thera-M Plus) 1 tab DAILY PO 06/20/21 09:00 07/24/21 09:00 Linagliptin (Tradjenta) 5 mg DAILY PO 06/20/21 09:00 07/24/21 09:00 Olanzapine (ZyPREXA ZYDIS) 2.5 mg PRN Q2HR PRN PO PSYCHOSIS 06/20/21 03:15 07/06/21 22:40 Duloxetine HCl (Cymbalta) 60 mg DAILY PO 06/21/21 09:00 07/24/21 09:00 Bupropion HCl (Wellbutrin Xl) 150 mg DAILY PO 06/21/21 09:00 06/25/21 21:00 DC 06/25/21 09:55 Bupropion HCl (Wellbutrin Xl) 300 mg DAILY PO 06/26/21 09:00 07/12/21 15:31 DC 07/12/21 08:04 Docusate Sodium (Colace) 100 mg DAILY PO 06/22/21 09:00 06/22/21 00:17 DC Lamotrigine (LaMICtal) 25 mg QHS PO 06/21/21 21:00 06/23/21 23:59 DC 06/23/21 19:55 Lamotrigine (LaMICtal) 50 mg QHS PO 06/24/21 21:00 06/26/21 23:59 DC 06/26/21 20:39 Lamotrigine (LaMICtal) 75 mg QHS PO 06/27/21 21:00 06/29/21 23:55 DC 06/29/21 20:02 Lamotrigine (LaMICtal) 100 mg QHS PO 06/30/21 21:00 07/24/21 20:18 Docusate Sodium (Colace) 100 mg BID PO 06/22/21 09:00 07/24/21 20:20 Nystatin (Nystop) 1 neelima BID TP 06/25/21 21:00 07/24/21 20:21 Trazodone HCl (Desyrel) 100 mg PRN QHS PRN PO INSOMNIA 06/26/21 12:00 07/06/21 14:47 DC 07/05/21 22:40 Aripiprazole (Abilify) 10 mg DAILY PO 06/29/21 09:00 07/06/21 14:47 DC 07/06/21 07:48 Doxepin HCl (SINEquan) 10 mg QHS PO 06/28/21 21:00 07/12/21 15:31 DC 07/11/21 20:16 Furosemide (Lasix) 40 mg DAILY PO 06/30/21 09:00 07/24/21 09:00 Magnesium Citrate (Citroma) 296 ml PRN 1X PRN PO 2ND CHOICE CONSTIPATION 07/04/21 12:30 07/04/21 13:03 Aripiprazole (Abilify) 15 mg DAILY PO 07/07/21 09:00 07/24/21 09:00 Trazodone HCl (Desyrel) 250 mg HS PO 07/06/21 21:00 07/09/21 13:32 DC 07/08/21 19:32 Insulin Human Lispro (HumaLOG) 0-5 UNITS TIDWMEALS SQ 07/07/21 12:00 07/18/21 09:02 Dextrose (Dextrose 50%-Water Syringe) 12.5 gm PRN Q15MIN PRN IV SEE COMMENTS 07/07/21 12:00 Trazodone HCl (Desyrel) 100 mg HS PO 07/09/21 21:00 07/24/21 20:17 Trazodone HCl (Desyrel) 50 mg PRN QHS PRN PO insomnia 07/09/21 13:30 07/22/21 21:23 Mirtazapine (Remeron) 22.5 mg QHS PO 07/09/21 21:00 07/12/21 15:31 DC 07/11/21 20:13 Bupropion HCl (Wellbutrin Xl) 150 mg DAILY PO 07/13/21 09:00 07/24/21 09:00 Mirtazapine (Remeron) 30 mg QHS PO 07/12/21 21:00 07/24/21 20:20 Duloxetine HCl (Cymbalta) 30 mg AFTRNOON PO 07/13/21 13:00 07/24/21 13:39 Neomycin/ Polymyxin/ Bacitracin (Triple Antibiotic Ointment) 1 pkt BID TP 07/14/21 21:00 07/24/21 20:21 I have reviewed the current psychotropics carefully including drug interactions. Risk benefit ratio favors no change other than as noted in my dictated progress note. Diagnosis: Problems: (1) Impulse control disorder, unspecified (2) Anxiety disorder, unspecified (3) Major depressive disorder, recurrent ESE LEVI MD Jul 24, 2021 21:11
--- NOTE | 2021-07-24 21:11 | PDOC ---
Exam Note: Josef Note: Please also refer to the separate dictated note~for this date of service dictated separately.~Patient seen individually. Discussed the patient with Nursing staff reviewed the chart.~Reviewed interim history and current functioning. Reviewed vital signs,~Labs/ Radiology~and current medications noted below. Continue current treatment with the changes noted in the dictated addendum note Assessment: Vital Signs/I&O: Vital Signs Date Time Temp Pulse Resp B/P (MAP) Pulse Ox O2 Delivery O2 Flow Rate FiO2 07/24/21 20:20 101 120/89 07/24/21 16:11 97.6 18 96 Room Air 07/23/21 06:05 3.0 I & O 07/23/21 07/23/21 07/24/21 14:59 22:59 06:59 Intake Total 840 ml 680 ml Balance 840 ml 680 ml Labs: Laboratory Tests Test 07/24/21 07:35 07/24/21 08:00 07/24/21 11:41 07/24/21 16:51 Glucose (Fingerstick) 134 mg/dL (70-99) H 155 mg/dL (70-99) H 152 mg/dL (70-99) H White Blood Count 6.8 x10^3/uL (4.0-11.0) Red Blood Count 3.57 x10^6/uL (4.30-5.70) L Hemoglobin 11.2 g/dL (13.0-17.5) L Hematocrit 34.7 % (39.0-53.0) L Mean Corpuscular Volume 97 fL (79-100) Mean Corpuscular Hemoglobin 31 pg (25-35) Mean Corpuscular Hemoglobin Concent 32 g/dL (31-37) Red Cell Distribution Width 18.1 % (11.5-14.5) H Platelet Count 238 x10^3/uL (140-400) Neutrophils (%) (Auto) 74 % (31-73) H Lymphocytes (%) (Auto) 12 % (24-48) L Monocytes (%) (Auto) 10 % (0-9) H Eosinophils (%) (Auto) 3 % (0-3) Basophils (%) (Auto) 0 % (0-3) Neutrophils # (Auto) 5.0 x10^3uL (1.8-7.7) Lymphocytes # (Auto) 0.8 x10^3/uL (1.0-4.8) L Monocytes # (Auto) 0.7 x10^3/uL (0.0-1.1) Eosinophils # (Auto) 0.2 x10^3/uL (0.0-0.7) Basophils # (Auto) 0.0 x10^3/uL (0.0-0.2) Sodium Level 141 mmol/L (136-145) Potassium Level 3.9 mmol/L (3.5-5.1) Chloride Level 104 mmol/L (98-107) Carbon Dioxide Level 30 mmol/L (21-32) Anion Gap 7 (6-14) Blood Urea Nitrogen 21 mg/dL (8-26) Creatinine 1.0 mg/dL (0.7-1.3) Estimated GFR (Cockcroft-Gault) 74.5 BUN/Creatinine Ratio 21 (6-20) H Glucose Level 138 mg/dL (70-99) H Calcium Level 8.0 mg/dL (8.5-10.1) L Total Bilirubin 0.6 mg/dL (0.2-1.0) Aspartate Amino Transferase (AST) 19 U/L (15-37) Alanine Aminotransferase (ALT) 24 U/L (16-63) Alkaline Phosphatase 87 U/L (46-116) Total Protein 5.6 g/dL (6.4-8.2) L Albumin 2.4 g/dL (3.4-5.0) L Albumin/Globulin Ratio 0.8 (1.0-1.7) L Test 07/24/21 19:12 Glucose (Fingerstick) 175 mg/dL (70-99) H Current Medications: Meds: Laboratory Tests Test 07/24/21 07:35 07/24/21 08:00 07/24/21 11:41 07/24/21 16:51 Glucose (Fingerstick) 134 mg/dL 155 mg/dL 152 mg/dL White Blood Count 6.8 x10^3/uL Red Blood Count 3.57 x10^6/uL Hemoglobin 11.2 g/dL Hematocrit 34.7 % Mean Corpuscular Volume 97 fL Mean Corpuscular Hemoglobin 31 pg Mean Corpuscular Hemoglobin Concent 32 g/dL Red Cell Distribution Width 18.1 % Platelet Count 238 x10^3/uL Neutrophils (%) (Auto) 74 % Lymphocytes (%) (Auto) 12 % Monocytes (%) (Auto) 10 % Eosinophils (%) (Auto) 3 % Basophils (%) (Auto) 0 % Neutrophils # (Auto) 5.0 x10^3uL Lymphocytes # (Auto) 0.8 x10^3/uL Monocytes # (Auto) 0.7 x10^3/uL Eosinophils # (Auto) 0.2 x10^3/uL Basophils # (Auto) 0.0 x10^3/uL Sodium Level 141 mmol/L Potassium Level 3.9 mmol/L Chloride Level 104 mmol/L Carbon Dioxide Level 30 mmol/L Anion Gap 7 Blood Urea Nitrogen 21 mg/dL Creatinine 1.0 mg/dL Estimated GFR (Cockcroft-Gault) 74.5 BUN/Creatinine Ratio 21 Glucose Level 138 mg/dL Calcium Level 8.0 mg/dL Total Bilirubin 0.6 mg/dL Aspartate Amino Transf (AST/SGOT) 19 U/L Alanine Aminotransferase (ALT/SGPT) 24 U/L Alkaline Phosphatase 87 U/L Total Protein 5.6 g/dL Albumin 2.4 g/dL Albumin/Globulin Ratio 0.8 Test 07/24/21 19:12 Glucose (Fingerstick) 175 mg/dL Current Medications Medications (Trade) Dose Ordered Sig/Nicky Route PRN Reason Start Time Stop Time Status Last Admin Dose Admin Acetaminophen (Tylenol) 650 mg PRN Q6HRS PRN PO MILD PAIN / TEMP > 100.3'F 06/19/21 17:00 07/23/21 23:23 Multi-Ingredient Ointment (Analgesic [place]) 1 neelima PRN QID PRN TP MUSCLE PAIN 06/19/21 17:00 Al Hydroxide/Mg Hydroxide (Mylanta Plus Xs) 15 ml PRN AFTMEALHC PRN PO DYSPEPSIA 06/19/21 17:00 07/20/21 15:31 Magnesium Hydroxide (Milk Of Magnesia) 2,400 mg PRN QHS PRN PO 1ST CHOICE CONSTIPATION 06/19/21 17:00 07/22/21 14:06 Aripiprazole (Abilify) 7.5 mg DAILY PO 06/20/21 09:00 06/28/21 15:42 DC 06/28/21 08:15 Aspirin (Aspirin Chewable) 81 mg DAILY PO 06/20/21 09:00 07/24/21 09:00 Clopidogrel Bisulfate (Plavix) 75 mg DAILY PO 06/20/21 09:00 07/24/21 09:00 Duloxetine HCl (Cymbalta) 90 mg DAILY PO 06/20/21 09:00 06/20/21 18:46 DC 06/20/21 09:53 Oxycodone/ Acetaminophen (Percocet 10/325) 1 tab PRN Q6HRS PRN PO PAIN 06/19/21 17:00 07/24/21 20:24 Potassium Chloride (Klor-Con) 30 meq DAILY PO 06/20/21 09:00 07/24/21 09:00 Trazodone HCl (Desyrel) 150 mg HS PO 06/19/21 21:00 07/06/21 14:47 DC 07/05/21 20:25 Atorvastatin Calcium (Lipitor) 80 mg QHS PO 06/19/21 21:00 07/24/21 20:17 Carvedilol (Coreg) 37.5 mg BID PO 06/19/21 21:00 07/24/21 20:20 Insulin Human Lispro (HumaLOG) 12 units TIDBFRMEAL SQ 06/20/21 07:30 07/07/21 11:53 DC 06/24/21 12:43 Insulin Glargine (Lantus Syringe) 48 unit QHS SQ 06/19/21 21:00 07/04/21 12:27 DC Multivitamins/ Calcium (Thera-M Plus) 1 tab DAILY PO 06/20/21 09:00 07/24/21 09:00 Linagliptin (Tradjenta) 5 mg DAILY PO 06/20/21 09:00 07/24/21 09:00 Olanzapine (ZyPREXA ZYDIS) 2.5 mg PRN Q2HR PRN PO PSYCHOSIS 06/20/21 03:15 07/06/21 22:40 Duloxetine HCl (Cymbalta) 60 mg DAILY PO 06/21/21 09:00 07/24/21 09:00 Bupropion HCl (Wellbutrin Xl) 150 mg DAILY PO 06/21/21 09:00 06/25/21 21:00 DC 06/25/21 09:55 Bupropion HCl (Wellbutrin Xl) 300 mg DAILY PO 06/26/21 09:00 07/12/21 15:31 DC 07/12/21 08:04 Docusate Sodium (Colace) 100 mg DAILY PO 06/22/21 09:00 06/22/21 00:17 DC Lamotrigine (LaMICtal) 25 mg QHS PO 06/21/21 21:00 06/23/21 23:59 DC 06/23/21 19:55 Lamotrigine (LaMICtal) 50 mg QHS PO 06/24/21 21:00 06/26/21 23:59 DC 06/26/21 20:39 Lamotrigine (LaMICtal) 75 mg QHS PO 06/27/21 21:00 06/29/21 23:55 DC 06/29/21 20:02 Lamotrigine (LaMICtal) 100 mg QHS PO 06/30/21 21:00 07/24/21 20:18 Docusate Sodium (Colace) 100 mg BID PO 06/22/21 09:00 07/24/21 20:20 Nystatin (Nystop) 1 neelima BID TP 06/25/21 21:00 07/24/21 20:21 Trazodone HCl (Desyrel) 100 mg PRN QHS PRN PO INSOMNIA 06/26/21 12:00 07/06/21 14:47 DC 07/05/21 22:40 Aripiprazole (Abilify) 10 mg DAILY PO 06/29/21 09:00 07/06/21 14:47 DC 07/06/21 07:48 Doxepin HCl (SINEquan) 10 mg QHS PO 06/28/21 21:00 07/12/21 15:31 DC 07/11/21 20:16 Furosemide (Lasix) 40 mg DAILY PO 06/30/21 09:00 07/24/21 09:00 Magnesium Citrate (Citroma) 296 ml PRN 1X PRN PO 2ND CHOICE CONSTIPATION 07/04/21 12:30 07/04/21 13:03 Aripiprazole (Abilify) 15 mg DAILY PO 07/07/21 09:00 07/24/21 09:00 Trazodone HCl (Desyrel) 250 mg HS PO 07/06/21 21:00 12/29/21 13:32 DC 07/08/21 19:32 Insulin Human Lispro (HumaLOG) 0-5 UNITS TIDWMEALS SQ 07/07/21 12:00 07/18/21 09:02 Dextrose (Dextrose 50%-Water Syringe) 12.5 gm PRN Q15MIN PRN IV SEE COMMENTS 07/07/21 12:00 Trazodone HCl (Desyrel) 100 mg HS PO 07/09/21 21:00 07/24/21 20:17 Trazodone HCl (Desyrel) 50 mg PRN QHS PRN PO insomnia 07/09/21 13:30 07/22/21 21:23 Mirtazapine (Remeron) 22.5 mg QHS PO 07/09/21 21:00 07/12/21 15:31 DC 07/11/21 20:13 Bupropion HCl (Wellbutrin Xl) 150 mg DAILY PO 07/13/21 09:00 07/24/21 09:00 Mirtazapine (Remeron) 30 mg QHS PO 07/12/21 21:00 07/24/21 20:20 Duloxetine HCl (Cymbalta) 30 mg AFTRNOON PO 07/13/21 13:00 07/24/21 13:39 Neomycin/ Polymyxin/ Bacitracin (Triple Antibiotic Ointment) 1 pkt BID TP 07/14/21 21:00 07/24/21 20:21 I have reviewed the current psychotropics carefully including drug interactions. Risk benefit ratio favors no change other than as noted in my dictated progress note. Diagnosis: Problems: (1) Impulse control disorder, unspecified (2) Anxiety disorder, unspecified (3) Major depressive disorder, recurrent ESE LEVI MD Jul 24, 2021 21:11
[2021-07-25 05:53] VITALS: BP 163/88
[2021-07-25] MEDS: oxyCODONE/APAP 10/325 1 TAB TABLET PO PRN ×3 (07:00→12:52)
[2021-07-25] MEDS: CARVEDILOL 12.5 MG TABLET PO SCH ×2 (07:18→20:36)
[2021-07-25] MEDS: ARIPiprazole 15 MG TABLET PO SCH (07:19)
[2021-07-25] MEDS: CLOPIDOGREL BISULFATE 75 MG TABLET PO SCH (07:19)
[2021-07-25] MEDS: ASPIRIN CHEWABLE 81 MG TABLET. PO SCH (07:19)
[2021-07-25] MEDS: DULoxetine HCL 30 MG CAPSULE.DR PO SCH ×2 (07:19→12:17)
[2021-07-25] MEDS: MULTIVITAMIN with MINERAL TABLET. PO SCH (07:19)
[2021-07-25] MEDS: POTASSIUM CHLORIDE 10 MEQ TABLET.ER. PO SCH (07:19)
[2021-07-25] MEDS: buPROPion XL 150 MG TAB.ER.24H PO SCH (07:20)
[2021-07-25] MEDS: DOCUSATE SODIUM 100 MG CAPSULE PO SCH ×2 (07:20→20:36)
[2021-07-25] MEDS: FUROSEMIDE 40 MG TABLET PO SCH (07:20)
[2021-07-25] MEDS: LINAGLIPTIN 5 MG TABLET PO SCH (07:20)
[2021-07-25] MEDS: NEOMY/BACITR/POLYMYXIN OINT PACKET. TP SCH ×2 (07:21→20:36)
[2021-07-25] MEDS: NYSTATIN TOPICAL POWDER 15GM BOTTLE. TP SCH ×2 (07:22→20:36)
[2021-07-25] MEDS: INSULIN LISPRO 300 UNITS/3 ML VIAL. SQ SCH ×3 (08:00→17:00)
[2021-07-25] MEDS: MAGNESIUM HYDROXIDE 2,400 MG/30 ML ORAL.SUSP. PO PRN (12:52)
[2021-07-25 16:09] VITALS: BP 110/75
[2021-07-25 20:36] VITALS: BP 110/75
[2021-07-25] MEDS: ATORVASTATIN CALCIUM 20 MG TABLET PO SCH (20:36)
[2021-07-25] MEDS: traZODone 100 MG TABLET. PO SCH (20:36)
[2021-07-25] MEDS: MIRTAZAPINE 30 MG TABLET PO SCH (20:36)
[2021-07-25] MEDS: lamoTRIgine 100 MG TABLET. PO SCH (20:36)
--- NOTE | 2021-07-25 21:15 | PDOC ---
Exam Note: Josef Note: Late entry for discharge 07/25/2021. Please also refer to the separate dictated note~for this date of service dictated separately.~Patient seen individually. Discussed the patient with Nursing staff reviewed the chart.~Reviewed interim history and current functioning. Reviewed vital signs,~Labs/ Radiology~and cur rent medications noted below. Continue current treatment with the changes noted in the dictated addendum note Assessment: Vital Signs/I&O: Vital Signs Date Time Temp Pulse Resp B/P (MAP) Pulse Ox O2 Delivery O2 Flow Rate FiO2 07/25/21 20:36 94 110/75 07/25/21 16:09 97.4 18 97 Room Air 07/23/21 06:05 3.0 I & O 07/24/21 07/24/21 07/25/21 15:00 23:00 07:00 Intake Total 300 ml 120 ml Balance 300 ml 120 ml Labs: Laboratory Tests Test 07/25/21 06:00 07/25/21 07:47 07/25/21 16:51 07/25/21 19:21 SARS-CoV-2 (PCR) Positive (NOT DETECTD) H Glucose (Fingerstick) 150 mg/dL (70-99) H 135 mg/dL (70-99) H 147 mg/dL (70-99) H Current Medications: Meds: Laboratory Tests Test 07/25/21 06:00 07/25/21 07:47 07/25/21 16:51 07/25/21 19:21 Coronavirus (COVID-19)(PCR) Positive Glucose (Fingerstick) 150 mg/dL 135 mg/dL 147 mg/dL Current Medications Medications (Trade) Dose Ordered Sig/Nicky Route PRN Reason Start Time Stop Time Status Last Admin Dose Admin Acetaminophen (Tylenol) 650 mg PRN Q6HRS PRN PO MILD PAIN / TEMP > 100.3'F 06/19/21 17:00 07/23/21 23:23 Multi-Ingredient Ointment (Analgesic [place]) 1 neelima PRN QID PRN TP MUSCLE PAIN 06/19/21 17:00 07/25/21 12:45 Al Hydroxide/Mg Hydroxide (Mylanta Plus Xs) 15 ml PRN AFTMEALHC PRN PO DYSPEPSIA 06/19/21 17:00 07/20/21 15:31 Magnesium Hydroxide (Milk Of Magnesia) 2,400 mg PRN QHS PRN PO 1ST CHOICE CONSTIPATION 06/19/21 17:00 07/25/21 12:52 Aripiprazole (Abilify) 7.5 mg DAILY PO 06/20/21 09:00 06/28/21 15:42 DC 06/28/21 08:15 Aspirin (Aspirin Chewable) 81 mg DAILY PO 06/20/21 09:00 07/25/21 07:19 Clopidogrel Bisulfate (Plavix) 75 mg DAILY PO 06/20/21 09:00 07/25/21 07:19 Duloxetine HCl (Cymbalta) 90 mg DAILY PO 06/20/21 09:00 06/20/21 18:46 DC 06/20/21 09:53 Oxycodone/ Acetaminophen (Percocet 10) 1 tab PRN Q6HRS PRN PO PAIN 06/19/21 17:00 07/25/21 12:52 Potassium Chloride (Klor-Con) 30 meq DAILY PO 06/20/21 09:00 07/25/21 07:19 Trazodone HCl (Desyrel) 150 mg HS PO 06/19/21 21:00 07/06/21 14:47 DC 07/05/21 20:25 Atorvastatin Calcium (Lipitor) 80 mg QHS PO 06/19/21 21:00 07/25/21 20:36 Carvedilol (Coreg) 37.5 mg BID PO 06/19/21 21:00 07/25/21 20:36 Insulin Human Lispro (HumaLOG) 12 units TIDBFRMEAL SQ 06/20/21 07:30 07/07/21 11:53 DC 06/24/21 12:43 Insulin Glargine (Lantus Syringe) 48 unit QHS SQ 06/19/21 21:00 07/04/21 12:27 DC Multivitamins/ Calcium (Thera-M Plus) 1 tab DAILY PO 06/20/21 09:00 07/25/21 07:19 Linagliptin (Tradjenta) 5 mg DAILY PO 06/20/21 09:00 07/25/21 07:20 Olanzapine (ZyPREXA ZYDIS) 2.5 mg PRN Q2HR PRN PO PSYCHOSIS 06/20/21 03:15 07/06/21 22:40 Duloxetine HCl (Cymbalta) 60 mg DAILY PO 06/21/21 09:00 07/25/21 07:19 Bupropion HCl (Wellbutrin Xl) 150 mg DAILY PO 06/21/21 09:00 06/25/21 21:00 DC 06/25/21 09:55 Bupropion HCl (Wellbutrin Xl) 300 mg DAILY PO 06/26/21 09:00 07/12/21 15:31 DC 07/12/21 08:04 Docusate Sodium (Colace) 100 mg DAILY PO 06/22/21 09:00 06/22/21 00:17 DC Lamotrigine (LaMICtal) 25 mg QHS PO 06/21/21 21:00 06/23/21 23:59 DC 06/23/21 19:55 Lamotrigine (LaMICtal) 50 mg QHS PO 06/24/21 21:00 06/26/21 23:59 DC 06/26/21 20:39 Lamotrigine (LaMICtal) 75 mg QHS PO 06/27/21 21:00 06/29/21 23:55 DC 06/29/21 20:02 Lamotrigine (LaMICtal) 100 mg QHS PO 06/30/21 21:00 07/25/21 20:36 Docusate Sodium (Colace) 100 mg BID PO 06/22/21 09:00 07/25/21 20:36 Nystatin (Nystop) 1 neelima BID TP 06/25/21 21:00 07/25/21 20:36 Trazodone HCl (Desyrel) 100 mg PRN QHS PRN PO INSOMNIA 06/26/21 12:00 07/06/21 14:47 DC 07/05/21 22:40 Aripiprazole (Abilify) 10 mg DAILY PO 06/29/21 09:00 07/06/21 14:47 DC 07/06/21 07:48 Doxepin HCl (SINEquan) 10 mg QHS PO 06/28/21 21:00 07/12/21 15:31 DC 07/11/21 20:16 Furosemide (Lasix) 40 mg DAILY PO 06/30/21 09:00 07/25/21 07:20 Magnesium Citrate (Citroma) 296 ml PRN 1X PRN PO 2ND CHOICE CONSTIPATION 07/04/21 12:30 07/04/21 13:03 Aripiprazole (Abilify) 15 mg DAILY PO 07/07/21 09:00 07/25/21 07:19 Trazodone HCl (Desyrel) 250 mg HS PO 07/06/21 21:00 07/09/21 13:32 DC 07/08/21 19:32 Insulin Human Lispro (HumaLOG) 0-5 UNITS TIDWMEALS SQ 07/07/21 12:00 07/18/21 09:02 Dextrose (Dextrose 50%-Water Syringe) 12.5 gm PRN Q15MIN PRN IV SEE COMMENTS 07/07/21 12:00 Trazodone HCl (Desyrel) 100 mg HS PO 07/09/21 21:00 07/25/21 20:36 Trazodone HCl (Desyrel) 50 mg PRN QHS PRN PO insomnia 07/09/21 13:30 07/22/21 21:23 Mirtazapine (Remeron) 22.5 mg QHS PO 07/09/21 21:00 07/12/21 15:31 DC 07/11/21 20:13 Bupropion HCl (Wellbutrin Xl) 150 mg DAILY PO 07/13/21 09:00 07/25/21 07:20 Mirtazapine (Remeron) 30 mg QHS PO 07/12/21 21:00 07/25/21 20:36 Duloxetine HCl (Cymbalta) 30 mg AFTRNOON PO 07/13/21 13:00 07/25/21 12:17 Neomycin/ Polymyxin/ Bacitracin (Triple Antibiotic Ointment) 1 pkt BID TP 07/14/21 21:00 07/25/21 20:36 I have reviewed the current psychotropics carefully including drug interactions. Risk benefit ratio favors no change other than as noted in my dictated progress note. Diagnosis: Problems: (1) Impulse control disorder, unspecified (2) Anxiety disorder, unspecified (3) Major depressive disorder, recurrent AMITA,ESE Spivey MD Jul 25, 2021 21:15
[2021-07-25] MEDS ORDERED: ACET325T9 PO (21:34)
[2021-07-25] MEDS ORDERED: ARIP15TA36 PO (21:35)
[2021-07-25] MEDS ORDERED: DEXT50DI3 IV (21:36)
[2021-07-25] MEDS ORDERED: DOCU100C28 PO (21:39)
[2021-07-25] MEDS ORDERED: DULO60CA7 PO (21:40)
[2021-07-25] MEDS ORDERED: DULO30CA2 PO (21:40)
[2021-07-25] MEDS ORDERED: FURO-68 PO (21:41)
[2021-07-25] MEDS ORDERED: INSU100V SQ (21:42)
[2021-07-25] MEDS ORDERED: MAG-115 PO (21:44)
[2021-07-25] MEDS ORDERED: MAGN24003 PO (21:45)
[2021-07-25] MEDS ORDERED: MAGN296S4 PO (21:45)
[2021-07-25] MEDS ORDERED: TROL86CR TP (21:46)
[2021-07-25] MEDS ORDERED: MIRT-35 PO (21:47)
[2021-07-25] MEDS ORDERED: NEOM1OIN6 TP (21:48)
[2021-07-25] MEDS ORDERED: LINA5TAB4 PO (21:48)
[2021-07-25] MEDS ORDERED: NYST15PO9 TP (21:49)
[2021-07-25] MEDS ORDERED: BUPR150T21 PO (21:50)
[2021-07-25] MEDS ORDERED: OLAN5TAB99 PO (21:50)
[2021-07-25] MEDS ORDERED: LAMO100T5 PO (21:52)
[2021-07-25] MEDS ORDERED: TRAZ-120 PO (21:52)
--- NOTE | 2021-07-25 22:49 | DS ---
DATE OF DISCHARGE: 07/25/2021 DISCHARGE SUMMARY/PSYCHIATRIC PROGRESS VISIT This note covers elements not covered in my initial note, 07/25/2021. REASON FOR ADMISSION: Please refer to the admission history for details. Briefly, the patient is a 66-year-old male who returned back to us from [facility] for reportedly not eating to deliberately drop his blood sugars. He was putting himself on the floor, being verbally aggressive toward staff, depressed, anxious, voicing suicidal ideation and texting his son expressing a plan to kill himself. He had failed prior outpatient treatment and inpatient hospitalization with us. Behaviors were deemed dangerous, unmanageable resulting in this referral back to us. SIGNIFICANT FINDINGS AND CLINICAL COURSE: Following admission, the patient was seen daily individually by myself from a psychiatric standpoint, medical followup Dr. Gandhi/Dr. Hendrickson. Initially, the patient remained depressed, anxious, quite difficult to manage on the unit. Adjustments were made in his psychotropics and he seemed to be doing better on a combination of Cymbalta 60 mg daily, 30 mg at 1300; trazodone 100 mg at bedtime and 50 mg at bedtime p.r.n. insomnia; Abilify 15 mg a day; Zyprexa p.r.n.; Wellbutrin-XL 150 mg a day; Lamictal 100 mg a day; Remeron 30 mg at bedtime. At this stage, the unit was on COVID precautions and discharges had been postponed, but the patient remained negative on COVID screening. However, on 07/25/2021, he returned positive and was discharged to the medical surgical floor for further management until he completes the isolation. Prior to discharge, ambulation impaired. He was lying in bed and transfers are with Shyam lift. REVIEW OF SYSTEMS: No CV, , pulmonary, eye, ENT system symptoms on review. MENTAL STATUS EXAMINATION: Reasonably oriented. Speech is coherent, has some latency. Abstraction fair. Computation impaired. Language function intact. Attention span fair. Mood and affect showing improvement. No suicidal ideation at discharge. LABORATORY DATA: Reviewed. FINAL DIAGNOSES: Major depressive disorder, recurrent, in partial remission; bipolar 2 disorder, depressed; anxiety disorder, unspecified; impulse control disorder; COVID positive screen. Rest unchanged from admission. DISCHARGE MEDICATIONS: Please refer to the MRAD. Psychiatric and medical followup on the medical surgical floor. Time for discharge day management greater than 30 minutes. SEB/JHONNY DR: Reid TID: [id number]
--- NOTE | 2021-07-26 02:51 | PN ---
DATE: 07/25/2021 SUBJECTIVE: The patient was seen today at the request of the nursing staff as he tested positive for coronavirus by PCR. However, when I questioned him, he denied any complaint, in particular, denied any chills, rigors or fever. Denied any cough, phlegm or hemoptysis. Denied any chest pain. Denied any shortness of breath, headache, nausea, vomiting, diarrhea, loss of taste or loss of smell. PHYSICAL EXAMINATION: GENERAL: When I examined him, he looked well and was clearly in no apparent respiratory distress. He was somewhat pale, but not jaundiced or cyanosed. No lymphadenopathy, no thyromegaly, no jugular venous distention, no limb edema. VITAL SIGNS: His heart rate was 102, blood pressure was 163/88, temperature was 97.1, respiratory rate 20, and his oxygen saturation was 95% on room air. HEAD, EYES, EARS, NOSE, AND THROAT: Normocephalic, atraumatic. NECK: Supple. HEART: Showed normal first and second heart sounds. No gallop, rub or murmur. CHEST: Showed central trachea, equal bilateral chest expansion, air entry, vesicular breath sounds. I could not really appreciate any crepitation or rhonchi. ABDOMEN: Distended, soft, nontender, no guarding or rigidity. No organomegaly. All hernial orifice intact. Bowel sounds normal. NEUROLOGIC: He was awake, alert, responding appropriately. All cranial nerves are intact. He moves his upper extremities to much good extent than his lower extremities. He is mostly wheelchair bound, bedbound. LABORATORY DATA: His most recent lab work show white cell count of 6800, hemoglobin 11, hematocrit 34, MCV 97, platelet count 238,000 with normal manual differential. His chemistry showed a serum sodium was 141, potassium 3.9, chloride 104, bicarbonate 30, anion gap of 7, BUN 21, creatinine 1, estimated GFR was 74 mL per minute. His glucose 138, calcium was 8. Total bilirubin, AST, ALT, alkaline phosphatase were normal. Total protein 5.6, albumin 2.4. His D-dimer last month was 0.61 and the patient has been consistently negative for the COVID-19 by PCR on 07/09, 07/14, 07/18, 07/22 and was positive today 07/25. In summary, this is a 66-year-old male patient who has asymptomatic COVID-19 infection. He obviously has a multitude of other medical problems including obesity, impaired ambulation. He was basically bedbound, wheelchair bound, has pressure ulcers on the right heel, history of cerebral infarction, type 2 diabetes mellitus, skin infection, morbid obesity, bilateral osteoarthritis of both knees, congestive heart failure, polyphagia by history, atherosclerotic heart disease, chronic kidney disease stage III, abnormal weight gain, and he has also hypertension. PAST SURGICAL HISTORY: Significant for aortocoronary bypass graft surgery. ALLERGIES: He has no known drug allergies. CODE STATUS: Full code. FAMILY HISTORY: Noncontributory. SOCIAL HISTORY: The patient was and lived in [facility] with his who was a dog beautician on the [facility] in [facility]. Apparently, his rather suddenly, reportedly from a blood clot. The patient has gradually deteriorated since then. 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 He apparently does not smoke, drink alcohol or use recreational drugs. My recommendation is that for the patient to be transferred to [facility] usp unit. He should continue on all his medications that included a triple antibiotic to his wounds twice a day, duloxetine 30 mg once a day, Wellbutrin-XL 150 mg daily, mirtazapine 30 mg at bedtime, trazodone 50 mg at bedtime, should be on insulin sliding scale low dose 3 times a day with meals, aripiprazole 15 mg p.o. daily and magnesium citrate 295 mL daily p.r.n., lamotrigine 100 mg p.o. at bedtime, furosemide 40 mg daily, nystatin powder apply topically twice a day, Colace 100 mg twice a day, duloxetine 60 mg once a day and linagliptin 5 mg daily, multivitamin 1 tablet once a day, aspirin 81 mg once a day, olanzapine 2.5 mg every 2 hours, carvedilol 37.5 mg twice a day, atorvastatin calcium 80 mg at bedtime; oxycodone/APAP, Percocet 10/325 one tablet every 6 hours; magnesium hydroxide 30 mL p.o. daily p.r.n. for constipation and Mylanta 15 mL after meals as needed and acetaminophen 650 mg every 6 hours. JEANNETTE/YUMIKO/CLAUDIA DR: JEANNETTE/luis TID: [id number]
--- NOTE | 2021-07-26 07:02 | PDOC ---
Exam Note: Josef Note: This note is a late entry for 07/24/2021 covers elements not covered in my initial note. Subjective: The patient was seen individually at treatment team meeting in the morning on 07/24/2021 with Carmen Gutierrez, Shiloh Dias, and Chen Natarajan (group social worker), Kera, activity therapy, and Gage MODI, discussed and reviewed the chart. Reviewed interim history and current functioning. The patient slept 6 hours previous night. I also saw him late in the evening on rounds. Average sleep 6 hours. Appetite 75%. Patient is doing better, little more cooperative. He prefers the box lunches rather than cooked food. He has been somewhat anxious, scratching at his wounds on his lower extremities groin area some of which has worsened by using the Shyam lift. He is cooperative with medications. Attended 4 groups. He remains isolated in his room for Covid precautions. Review of Systems: Ambulation impaired lying in bed. No CV, , pulmonary, eye, ENT system symptoms on review. He complains of some discomfort in the lower extremity. Mental Status Exam: The patient is alert and oriented. Speech is coherent. Abstraction fair. Computation impaired. He is quite animated, verbal, talking about the years he spent with the [place] in the [place] and [facility] regions, very animated as we discussed this at some length individually. Mood is improved. No suicidal or homicidal ideation. Attention span slightly distractible. Laboratory Data: Reviewed. Impression: Major depressive disorder, recurrent, rule out psychotic features. Anxiety disorder unspecified. Plan: Continue current psychotropics mentioned in my initial note. He remains on Cymbalta, trazodone, Abilify, Wellbutrin, Lamictal, Remeron. Reviewed drug interactions, risk-benefit ratio favors no change at this time. Assessment: Vital Signs/I&O: Vital Signs Date Time Temp Pulse Resp B/P (MAP) Pulse Ox O2 Delivery O2 Flow Rate FiO2 07/25/21 20:36 94 110/75 07/25/21 16:09 97.4 18 97 Room Air 07/23/21 06:05 3.0 I & O 07/25/21 07/25/21 07/26/21 15:00 23:00 07:00 Intake Total 360 ml 720 ml Balance 360 ml 720 ml Labs: Laboratory Tests Test 07/25/21 07:47 07/25/21 16:51 07/25/21 19:21 Glucose (Fingerstick) 150 mg/dL (70-99) H 135 mg/dL (70-99) H 147 mg/dL (70-99) H Current Medications: Meds: Laboratory Tests Test 07/25/21 07:47 07/25/21 16:51 07/25/21 19:21 Glucose (Fingerstick) 150 mg/dL 135 mg/dL 147 mg/dL Current Medications Medications (Trade) Dose Ordered Sig/Nicky Route PRN Reason Start Time Stop Time Status Last Admin Dose Admin Acetaminophen (Tylenol) 650 mg PRN Q6HRS PRN PO MILD PAIN / TEMP > 100.3'F 06/19/21 17:00 07/25/21 22:11 DC 07/23/21 23:23 Multi-Ingredient Ointment (Analgesic [place]) 1 neelima PRN QID PRN TP MUSCLE PAIN 06/19/21 17:00 07/25/21 22:11 DC 07/25/21 12:45 Al Hydroxide/Mg Hydroxide (Mylanta Plus Xs) 15 ml PRN AFTMEALHC PRN PO DYSPEPSIA 06/19/21 17:00 07/25/21 22:11 DC 07/20/21 15:31 Magnesium Hydroxide (Milk Of Magnesia) 2,400 mg PRN QHS PRN PO 1ST CHOICE CONSTIPATION 06/19/21 17:00 07/25/21 22:11 DC 07/25/21 12:52 Aripiprazole (Abilify) 7.5 mg DAILY PO 06/20/21 09:00 06/28/21 15:42 DC 06/28/21 08:15 Aspirin (Aspirin Chewable) 81 mg DAILY PO 06/20/21 09:00 07/25/21 22:11 DC 07/25/21 07:19 Clopidogrel Bisulfate (Plavix) 75 mg DAILY PO 06/20/21 09:00 07/25/21 22:11 DC 07/25/21 07:19 Duloxetine HCl (Cymbalta) 90 mg DAILY PO 06/20/21 09:00 06/20/21 18:46 DC 06/20/21 09:53 Oxycodone/ Acetaminophen (Percocet 10/325) 1 tab PRN Q6HRS PRN PO PAIN 06/19/21 17:00 07/25/21 22:11 DC 07/25/21 12:52 Potassium Chloride (Klor-Con) 30 meq DAILY PO 06/20/21 09:00 07/25/21 22:11 DC 07/25/21 07:19 Trazodone HCl (Desyrel) 150 mg HS PO 06/19/21 21:00 07/06/21 14:47 DC 07/05/21 20:25 Atorvastatin Calcium (Lipitor) 80 mg QHS PO 06/19/21 21:00 07/25/21 22:11 DC 07/25/21 20:36 Carvedilol (Coreg) 37.5 mg BID PO 06/19/21 21:00 07/25/21 22:11 DC 07/25/21 20:36 Insulin Human Lispro (HumaLOG) 12 units TIDBFRMEAL SQ 06/20/21 07:30 07/07/21 11:53 DC 06/24/21 12:43 Insulin Glargine (Lantus Syringe) 48 unit QHS SQ 06/19/21 21:00 07/04/21 12:27 DC Multivitamins/ Calcium (Thera-M Plus) 1 tab DAILY PO 06/20/21 09:00 07/25/21 22:11 DC 07/25/21 07:19 Linagliptin (Tradjenta) 5 mg DAILY PO 06/20/21 09:00 07/25/21 22:11 DC 07/25/21 07:20 Olanzapine (ZyPREXA ZYDIS) 2.5 mg PRN Q2HR PRN PO PSYCHOSIS 06/20/21 03:15 07/25/21 22:11 DC 07/06/21 22:40 Duloxetine HCl (Cymbalta) 60 mg DAILY PO 06/21/21 09:00 07/25/21 22:11 DC 07/25/21 07:19 Bupropion HCl (Wellbutrin Xl) 150 mg DAILY PO 06/21/21 09:00 06/25/21 21:00 DC 06/25/21 09:55 Bupropion HCl (Wellbutrin Xl) 300 mg DAILY PO 06/26/21 09:00 1/1/22 15:31 DC 07/12/21 08:04 Docusate Sodium (Colace) 100 mg DAILY PO 06/22/21 09:00 06/22/21 00:17 DC Lamotrigine (LaMICtal) 25 mg QHS PO 06/21/21 21:00 06/23/21 23:59 DC 06/23/21 19:55 Lamotrigine (LaMICtal) 50 mg QHS PO 06/24/21 21:00 06/26/21 23:59 DC 06/26/21 20:39 Lamotrigine (LaMICtal) 75 mg QHS PO 06/27/21 21:00 06/29/21 23:55 DC 06/29/21 20:02 Lamotrigine (LaMICtal) 100 mg QHS PO 06/30/21 21:00 07/25/21 22:11 DC 07/25/21 20:36 Docusate Sodium (Colace) 100 mg BID PO 06/22/21 09:00 07/25/21 22:11 DC 07/25/21 20:36 Nystatin (Nystop) 1 neelima BID TP 06/25/21 21:00 07/25/21 22:11 DC 07/25/21 20:36 Trazodone HCl (Desyrel) 100 mg PRN QHS PRN PO INSOMNIA 06/26/21 12:00 07/06/21 14:47 DC 07/05/21 22:40 Aripiprazole (Abilify) 10 mg DAILY PO 06/29/21 09:00 07/06/21 14:47 DC 07/06/21 07:48 Doxepin HCl (SINEquan) 10 mg QHS PO 06/28/21 21:00 07/12/21 15:31 DC 07/11/21 20:16 Furosemide (Lasix) 40 mg DAILY PO 06/30/21 09:00 07/25/21 22:11 DC 07/25/21 07:20 Magnesium Citrate (Citroma) 296 ml PRN 1X PRN PO 2ND CHOICE CONSTIPATION 07/04/21 12:30 07/25/21 22:11 DC 07/04/21 13:03 Aripiprazole (Abilify) 15 mg DAILY PO 07/07/21 09:00 07/25/21 22:11 DC 07/25/21 07:19 Trazodone HCl (Desyrel) 250 mg HS PO 07/06/21 21:00 07/09/21 13:32 DC 07/08/21 19:32 Insulin Human Lispro (HumaLOG) 0-5 UNITS TIDWMEALS SQ 07/07/21 12:00 07/25/21 22:11 DC 07/18/21 09:02 Dextrose (Dextrose 50%-Water Syringe) 12.5 gm PRN Q15MIN PRN IV SEE COMMENTS 07/07/21 12:00 07/25/21 22:11 DC Trazodone HCl (Desyrel) 100 mg HS PO 07/09/21 21:00 07/25/21 22:11 DC 07/25/21 20:36 Trazodone HCl (Desyrel) 50 mg PRN QHS PRN PO insomnia 07/09/21 13:30 07/25/21 22:11 DC 07/22/21 21:23 Mirtazapine (Remeron) 22.5 mg QHS PO 07/09/21 21:00 07/12/21 15:31 DC 07/11/21 20:13 Bupropion HCl (Wellbutrin Xl) 150 mg DAILY PO 07/13/21 09:00 07/25/21 22:11 DC 07/25/21 07:20 Mirtazapine (Remeron) 30 mg QHS PO 07/12/21 21:00 07/25/21 22:11 DC 07/25/21 20:36 Duloxetine HCl (Cymbalta) 30 mg AFTRNOON PO 07/13/21 13:00 07/25/21 22:11 DC 07/25/21 12:17 Neomycin/ Polymyxin/ Bacitracin (Triple Antibiotic Ointment) 1 pkt BID TP 07/14/21 21:00 07/25/21 22:11 DC 07/25/21 20:36 I have reviewed the current psychotropics carefully including drug interactions. Risk benefit ratio favors no change other than as noted in my dictated progress note. Diagnosis: Problems: (1) Impulse control disorder, unspecified (2) Anxiety disorder, unspecified (3) Major depressive disorder, recurrent AMITAESE MD Jul 26, 2021 07:02
== END 2021-07-25 22:11 | DRG 885 ==
LOC: GEROPSY 16:45
PROVIDERS: ADMIT Psychiatry & Neurology Psychiatry; ATTEND Psychiatry & Neurology Psychiatry
DX: F31.81 Bipolar II disorder (principal); U07.1 COVID-19; N18.30 Chronic kidney disease, stage 3 unspecified; I13.0 Hypertensive heart and chronic kidney disease with heart failure and stage 1 through stage 4 chronic kidney disease, or unspecified chronic kidney disease; R45.851 Suicidal ideations; Z68.41 Body mass index [BMI] 40.0-44.9, adult; E11.22 Type 2 diabetes mellitus with diabetic chronic kidney disease; E11.649 Type 2 diabetes mellitus with hypoglycemia without coma; E66.01 Morbid (severe) obesity due to excess calories; F03.90 Unspecified dementia, unspecified severity, without behavioral disturbance, psychotic disturbance, mood disturbance, and anxiety; F41.0 Panic disorder [episodic paroxysmal anxiety]; M17.0 Bilateral primary osteoarthritis of knee; F41.1 Generalized anxiety disorder; F60.9 Personality disorder, unspecified; F63.9 Impulse disorder, unspecified; G47.30 Sleep apnea, unspecified; I25.10 Atherosclerotic heart disease of native coronary artery without angina pectoris; I50.9 Heart failure, unspecified; Z95.1 Presence of aortocoronary bypass graft; Z91.19 Patient's noncompliance with other medical treatment and regimen
CPT/HCPCS: 36415; 71045; 80053; 81001; 82140; 82306; 82607; 82947; 83036; 83540; 83550; 83735; 83880; 84436; 84443; 84480; 85025; 85379; 86592; 93005; J1815; U0003; 97530

== ENCOUNTER 2021-07-25 18:09 | Inpatient (IN) | payer MEDICARE, BC ==
[~2021-07-25] VITALS: Ht 182.9 cm; Wt 133.5 kg
[2021-07-25] MEDS ORDERED: ACET325T9 PO (21:34)
[2021-07-25] MEDS ORDERED: ARIP15TA36 PO (21:35)
[2021-07-25] MEDS ORDERED: DEXT50DI3 IV (21:36)
[2021-07-25] MEDS ORDERED: DOCU100C28 PO (21:39)
[2021-07-25] MEDS ORDERED: DULO60CA7 PO (21:40)
[2021-07-25] MEDS ORDERED: DULO30CA2 PO (21:40)
[2021-07-25] MEDS ORDERED: FURO-68 PO (21:41)
[2021-07-25] MEDS ORDERED: INSU100V SQ (21:42)
[2021-07-25] MEDS ORDERED: MAG-115 PO (21:44)
[2021-07-25] MEDS ORDERED: MAGN296S4 PO (21:45)
[2021-07-25] MEDS ORDERED: MAGN24003 PO (21:45)
[2021-07-25] MEDS ORDERED: TROL86CR TP (21:46)
[2021-07-25] MEDS ORDERED: MIRT-35 PO (21:47)
[2021-07-25] MEDS ORDERED: LINA5TAB4 PO (21:48)
[2021-07-25] MEDS ORDERED: NEOM1OIN6 TP (21:48)
[2021-07-25] MEDS ORDERED: NYST15PO9 TP (21:49)
[2021-07-25] MEDS ORDERED: BUPR150T21 PO (21:50)
[2021-07-25] MEDS ORDERED: OLAN5TAB99 PO (21:50)
[2021-07-25] MEDS ORDERED: LAMO100T5 PO (21:52)
[2021-07-25] MEDS ORDERED: TRAZ-120 PO (21:52)
[2021-07-25] MEDS ORDERED: DEXTROSE 50% 25 GM / 50ML DISP.SYRIN. IV PRN (23:00)
[2021-07-25] MEDS ORDERED: ACETAMINOPHEN 325 MG TABLET PO PRN (23:00)
[2021-07-25] MEDS ORDERED: TROLAMINE SALICYLATE 10% TOPICAL CREAM 85GM JAR. TP PRN (23:00)
[2021-07-25] MEDS ORDERED: MAGNESIUM CITRATE 296 ML SOLUTION. PO PRN (23:00)
[2021-07-25] MEDS ORDERED: MAG HYDROX/AL HYDROX/SIMETH 30 ML ORAL.SUSP PO PRN (23:00)
[2021-07-25] MEDS ORDERED: MAGNESIUM HYDROXIDE 2,400 MG/30 ML ORAL.SUSP. PO PRN (23:15)
--- NOTE | 2021-07-25 23:30 | NUR ---
The patient, MARTA ARIZA, 66 y/o, M admitted by ELIAN BARNETT MD, was given written information regarding hospital policies, unit procedures and contact persons. Valuables were checked and left with patient. Patient appears to be sleeping at present time. Bed alarm set for safety. Will continue to monitor.
[2021-07-26 06:42] VITALS: BP 133/90
[2021-07-26 06:54] LABS: BASO % 1 % (0-3); EOS # 0.2 x10^3/uL (0.0-0.7); EOS % 3 % (0-3); HEMATOCRIT 35.8 % (39.0-53.0); HEMOGLOBIN 11.4 g/dL (13.0-17.5); LYMPH # 0.7 x10^3/uL (1.0-4.8); LYMPH % 9 % (24-48); MEAN CORPUSCULAR HEMOGLOBIN 31 pg (25-35); MEAN CORPUSCULAR HGB CONC 32 g/dL (31-37); MEAN CORPUSCULAR VOLUME 98 fL (79-100); MONO # 0.7 x10^3/uL (0.0-1.1); MONO % 9 % (0-9); NEUT # 5.4 x10^3uL (1.8-7.7); NEUT % 78 % (31-73); PLATELET COUNT 234 x10^3/uL (140-400); RED BLOOD COUNT 3.63 x10^6/uL (4.30-5.70); RED CELL DISTRIBUTION WIDTH 18.3 % (11.5-14.5); WHITE BLOOD COUNT 6.9 x10^3/uL (4.0-11.0)
[2021-07-26 07:41] LABS: ALBUMIN 2.6 g/dL (3.4-5.0); ALBUMIN/GLOBULIN RATIO 0.7 (1.0-1.7); CALCIUM 8.1 mg/dL (8.5-10.1); GFR 74.5; POTASSIUM 4.1 mmol/L (3.5-5.1); TOTAL BILIRUBIN 0.5 mg/dL (0.2-1.0); TOTAL PROTEIN 6.1 g/dL (6.4-8.2)
[2021-07-26] MEDS ORDERED: NON FORMULARY ITEM (Insulin Lispro (Humalog) 0 UNIT) SQ SCH (08:00)
[2021-07-26] MEDS: INSULIN LISPRO 300 UNITS/3 ML VIAL. SQ SCH ×3 (08:00→18:00)
[2021-07-26] MEDS ORDERED: METHYL SALICYLATE/MENTHOL TOPICAL OINTMENT 57GM TUBE. TP PRN (09:15)
[2021-07-26] MEDS: CARVEDILOL 12.5 MG TABLET PO SCH ×2 (09:21→17:20)
[2021-07-26] MEDS: LINAGLIPTIN 5 MG TABLET PO SCH (09:21)
[2021-07-26] MEDS: MULTIVITAMIN with MINERAL TABLET. PO SCH (09:21)
[2021-07-26] MEDS: buPROPion XL 150 MG TAB.ER.24H PO SCH (09:21)
[2021-07-26] MEDS: ARIPiprazole 15 MG TABLET PO SCH (09:21)
[2021-07-26] MEDS: CLOPIDOGREL BISULFATE 75 MG TABLET PO SCH (09:21)
[2021-07-26] MEDS: DULoxetine HCL 60 MG CAPSULE.DR PO SCH (09:21)
[2021-07-26] MEDS: FUROSEMIDE 40 MG TABLET PO SCH (09:21)
[2021-07-26] MEDS: POTASSIUM CHLORIDE 10 MEQ TABLET.ER. PO SCH (09:22)
[2021-07-26] MEDS: DOCUSATE SODIUM 100 MG CAPSULE PO SCH ×2 (09:22→19:39)
[2021-07-26] MEDS: ASPIRIN CHEWABLE 81 MG TABLET. PO SCH (09:22)
[2021-07-26] MEDS: NYSTATIN TOPICAL POWDER 15GM BOTTLE. TP SCH ×2 (09:22→19:39)
[2021-07-26] MEDS: NEOMY/BACITR/POLYMYXIN OINT PACKET. TP SCH ×2 (09:22→19:39)
[2021-07-26] MEDS: oxyCODONE/APAP 10/325 1 TAB TABLET PO PRN (09:41)
--- NOTE | 2021-07-26 09:45 | NUR ---
Patient is attention seeking, demanding, and mildly agitated. He was found lying on the edge of his bed with one leg hanging over the rails; when asked what he was doing, he stated 'hanging out'. Patient is upset that there is no television in his room and stated the kitchen sent him a brick for breakfast; he claims he has been calling out for water for three hours. He also complains of back pain. Scheduled and PRN medications provided per eMAR, will continue to monitor and report to MD during rounds.
[2021-07-26 11:00] VITALS: BP 138/79
[2021-07-26] MEDS: DULoxetine HCL 30 MG CAPSULE.DR PO SCH (13:20)
--- NOTE | 2021-07-26 13:46 | NUR ---
Patient has been increasingly attention seeking and agitated. He has been coughing dramatically and yelling 'I can't breath' loud enough to be heard at the opposite end of the unit. He started smacking himself and calling himself names when he was unable to pull himself up in bed all the way. After I left the room after providing afternoon medication, patient continued to smack himself and his bed. Patient has soiled himself and poured his Glucerna on the floor. Patient changed, new linens and gown provided, prn medication provided per eMAR. Will continue to monitor and report to oncoming shift.
[2021-07-26 16:30] VITALS: BP 137/56
--- NOTE | 2021-07-26 17:19 | HP ---
DATE OF SERVICE: 07/26/2021 ADMIT DATE: 07/25/2021 HISTORY OF PRESENT ILLNESS: The patient is a 66-year-old male patient who was tested positive for COVID-19 infection while at [facility] and he was completely asymptomatic. Denied any complaint; however, the patient therefore transferred to the Group Home Unit for quarantine and to repeat his COVID-19 by PCR periodically. When I saw him today, he denied any complaint, although he continued to have some behavioral issues. The nursing staff did not voice any concern. They stated that he continued to completely asymptomatic and hemodynamically stable, afebrile. PAST MEDICAL HISTORY: Significant for morbid obesity and impaired ambulation. He is bedbound, wheelchair bound, has pressure ulcers, right heel. History of cerebral infarction, type 2 diabetes mellitus, skin infection, bilateral osteoarthritis of both knees. Congestive heart failure, polyphagia by history, atherosclerotic heart disease, chronic kidney disease stage III, abnormal weight gain and hypertension. PAST SURGICAL HISTORY: Significant for aortocoronary bypass graft surgery. ALLERGIES: He has no known drug allergies. CODE STATUS: Full code. FAMILY HISTORY: Noncontributory. SOCIAL HISTORY: The patient was and lived in [facility] with his who was a rn hedis on the [employer] in [place] and [facility]. Currently, his rather suddenly, reportedly from a blood clot. The patient has gradually deteriorated since then. 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 He apparently does not smoke, drink alcohol or recreational drugs. REVIEW OF SYSTEMS: As per history of present illness. MEDICATIONS: He was transferred to Group Home Unit to continue on triple antibiotics for his wounds twice a day, duloxetine 30 mg once a day, Wellbutrin-XL 150 mg once a day, mirtazapine 30 mg p.o. at bedtime, trazodone 100 mg at bedtime, trazodone 50 mg at bedtime. He is on insulin sliding scale, aripiprazole 15 mg daily, magnesium citrate 296 mL once a day, lamotrigine 100 mg at bedtime, furosemide 40 mg daily, nystatin powder topically twice a day, Colace 100 mg twice a day, duloxetine 60 mg daily, linagliptin 5 mg daily, multivitamin 1 tablet once a day, potassium chloride 30 mEq once a day, Plavix 75 mg once a day, aspirin 81 mg once a day, olanzapine 2.5 mg every 2 hours, carvedilol 37.5 mg twice a day, atorvastatin calcium 80 mg p.o. at bedtime. He is on oxycodone/APAP 10/325 one tablet every 6 hours, magnesium oxide 30 mL p.o. daily p.r.n. for constipation, Lantus 15 mL after meals and as needed and acetaminophen 650 mg every 6 hours. PHYSICAL EXAMINATION: GENERAL: When I examined him today, he was sitting comfortably in his chair, no apparent respiratory distress, somewhat pale, but not jaundiced or cyanosed, no lymphadenopathy, no thyromegaly, no jugular venous distention. Mild bilateral lower limb edema. VITAL SIGNS: His heart rate was 94, blood pressure was 138/79, temperature 96.5, respiratory rate was 14 and oxygen saturation was 95% on 2 liters of oxygen. HEAD, EYES, EARS, NOSE, AND THROAT: Normocephalic, atraumatic. NECK: Supple. HEART: Normal first and second heart sounds, no gallop or murmur. CHEST: Clear to auscultation, no crepitation or rhonchi. ABDOMEN: Distended, soft, nontender. NEUROLOGIC: He is awake, alert, responding appropriately. All cranial nerves intact. He moves his upper extremities without difficulty, he is mostly bedbound, wheelchair bound. He has multiple wounds on his both feet and heel. LABORATORY DATA: His lab work this morning showed a serum sodium of 139, potassium 4.1, chloride 103, bicarbonate 30, anion gap of 6, BUN 21, creatinine 1, estimated GFR was 74 mL per minute. His glucose 139, calcium was 8.1. Total bilirubin, AST, ALT, alkaline phosphatase were normal. Total protein 6.1, albumin was 2.6. White cell count was 6900, hemoglobin 11, hematocrit 35, MCV 98 and platelet count of 234,000 with normal manual differential. ASSESSMENT AND PLAN: 1. Asymptomatic COVID-19 infection. 2. The patient has a multitude of other medical problems including: A. Type 2 diabetes mellitus. B. Cerebrovascular accident. C. Morbid obesity and probably obstructive sleep apnea. D. Hypertension, impaired mobility, congestive heart failure, polyphagia and chronic kidney disease. RUIZ DR: Johanne TID: [id number]
--- NOTE | 2021-07-26 18:00 | NUR ---
Patient has not been eating well today, held insulin due to poor intake. Will continue to monitor and report to oncoming shift.
[2021-07-26] MEDS: traZODone 100 MG TABLET. PO SCH (19:39)
[2021-07-26] MEDS: ATORVASTATIN CALCIUM 20 MG TABLET PO SCH (19:39)
[2021-07-26] MEDS: lamoTRIgine 100 MG TABLET. PO SCH (19:39)
[2021-07-26] MEDS: MIRTAZAPINE 30 MG TABLET PO SCH (19:40)
--- NOTE | 2021-07-26 21:28 | PDOC ---
Exam Note: Josef Note: Please also refer to the separate dictated note~for this date of service dictated separately.~Patient seen individually. Discussed the patient with Nursing staff reviewed the chart.~Reviewed interim history and current functioning. Reviewed vital signs,~Labs/ Radiology~and current medications noted below. Continue current treatment with the changes noted in the dictated addendum note Assessment: Vital Signs/I&O: Vital Signs Date Time Temp Pulse Resp B/P (MAP) Pulse Ox O2 Delivery O2 Flow Rate FiO2 07/26/21 17:20 94 138/79 07/26/21 16:30 96.7 20 92 Room Air 07/26/21 08:00 2.0 I & O 07/25/21 07/25/21 07/26/21 15:00 23:00 07:00 Intake Total 240 ml Balance 240 ml Labs: Laboratory Tests Test 07/26/21 06:39 07/26/21 08:36 07/26/21 11:41 White Blood Count 6.9 x10^3/uL (4.0-11.0) Red Blood Count 3.63 x10^6/uL (4.30-5.70) L Hemoglobin 11.4 g/dL (13.0-17.5) L Hematocrit 35.8 % (39.0-53.0) L Mean Corpuscular Volume 98 fL (79-100) Mean Corpuscular Hemoglobin 31 pg (25-35) Mean Corpuscular Hemoglobin Concent 32 g/dL (31-37) Red Cell Distribution Width 18.3 % (11.5-14.5) H Platelet Count 234 x10^3/uL (140-400) Neutrophils (%) (Auto) 78 % (31-73) H Lymphocytes (%) (Auto) 9 % (24-48) L Monocytes (%) (Auto) 9 % (0-9) Eosinophils (%) (Auto) 3 % (0-3) Basophils (%) (Auto) 1 % (0-3) Neutrophils # (Auto) 5.4 x10^3uL (1.8-7.7) Lymphocytes # (Auto) 0.7 x10^3/uL (1.0-4.8) L Monocytes # (Auto) 0.7 x10^3/uL (0.0-1.1) Eosinophils # (Auto) 0.2 x10^3/uL (0.0-0.7) Basophils # (Auto) 0.0 x10^3/uL (0.0-0.2) Sodium Level 139 mmol/L (136-145) Potassium Level 4.1 mmol/L (3.5-5.1) Chloride Level 103 mmol/L (98-107) Carbon Dioxide Level 30 mmol/L (21-32) Anion Gap 6 (6-14) Blood Urea Nitrogen 21 mg/dL (8-26) Creatinine 1.0 mg/dL (0.7-1.3) Estimated GFR (Cockcroft-Gault) 74.5 BUN/Creatinine Ratio 21 (6-20) H Glucose Level 139 mg/dL (70-99) H Calcium Level 8.1 mg/dL (8.5-10.1) L Total Bilirubin 0.5 mg/dL (0.2-1.0) Aspartate Amino Transferase (AST) 19 U/L (15-37) Alanine Aminotransferase (ALT) 24 U/L (16-63) Alkaline Phosphatase 91 U/L (46-116) Total Protein 6.1 g/dL (6.4-8.2) L Albumin 2.6 g/dL (3.4-5.0) L Albumin/Globulin Ratio 0.7 (1.0-1.7) L Glucose (Fingerstick) 130 mg/dL (70-99) H 190 mg/dL (70-99) H Current Medications: Meds: Current Medications Medications (Trade) Dose Ordered Sig/Nicky Route PRN Reason Start Time Stop Time Status Last Admin Dose Admin Aripiprazole (Abilify) 15 mg DAILY PO 07/26/21 09:00 07/26/21 09:21 Aspirin (Aspirin Chewable) 81 mg DAILY PO 07/26/21 09:00 07/26/21 09:22 Bupropion HCl (Wellbutrin Xl) 150 mg DAILY PO 07/26/21 09:00 07/26/21 09:21 Clopidogrel Bisulfate (Plavix) 75 mg DAILY PO 07/26/21 09:00 07/26/21 09:21 Docusate Sodium (Colace) 100 mg BID PO 07/26/21 09:00 07/26/21 19:39 Duloxetine HCl (Cymbalta) 30 mg AFTRNOON PO 07/26/21 13:00 07/26/21 13:20 Duloxetine HCl (Cymbalta) 60 mg DAILY PO 07/26/21 09:00 07/26/21 09:21 Furosemide (Lasix) 40 mg DAILY PO 07/26/21 09:00 07/26/21 09:21 Lamotrigine (LaMICtal) 100 mg QHS PO 07/26/21 21:00 07/26/21 19:39 Linagliptin (Tradjenta) 5 mg DAILY PO 07/26/21 09:00 07/26/21 09:21 Mirtazapine (Remeron) 30 mg HS PO 07/26/21 21:00 07/26/21 19:40 Neomycin/ Polymyxin/ Bacitracin (Triple Antibiotic Ointment) 1 pkt BID TP 07/26/21 09:00 07/26/21 19:39 Nystatin (Nystop) 1 neelima BID TP 07/26/21 09:00 07/26/21 19:39 Olanzapine (ZyPREXA ZYDIS) 2.5 mg PRN Q2HRS PRN PO psychosis/agitation 07/25/21 23:00 07/26/21 13:41 Oxycodone/ Acetaminophen (Percocet 10/325) 1 tab PRN Q6HRS PRN PO PAIN 07/25/21 23:00 07/26/21 09:41 Potassium Chloride (Klor-Con) 30 meq DAILYWBKFT PO 07/26/21 08:00 07/26/21 09:22 Trazodone HCl (Desyrel) 100 mg HS PO 07/26/21 21:00 07/26/21 19:39 Atorvastatin Calcium (Lipitor) 80 mg QHS PO 07/26/21 21:00 07/26/21 19:39 Carvedilol (Coreg) 37.5 mg BIDWMEALS PO 07/26/21 08:00 07/26/21 17:20 Multivitamins/ Calcium (Thera-M Plus) 1 tab DAILY PO 07/26/21 09:00 07/26/21 09:21 I have reviewed the current psychotropics carefully including drug interactions. Risk benefit ratio favors no change other than as noted in my dictated progress note. Diagnosis: Problems: (1) Impulse control disorder, unspecified (2) Anxiety disorder, unspecified (3) Major depressive disorder, recurrent (4) COVID-19 ESE LEVI MD Jul 26, 2021 21:28
[2021-07-26 22:00] VITALS: BP 137/56
--- NOTE | 2021-07-26 23:15 | NUR ---
Patient is located in his room on assumption of care, awake in bed. Listening to music on the samuel. He is pleasant and interactive. Continues to be attention seeking, although less so than baseline. Compliant with assessments and medications whole. Denies thoughts of SI or self harm. Patient remains quietly awake in his room. Will continue to monitor.
[2021-07-27 05:30] VITALS: BP 148/85
[2021-07-27] MEDS: INSULIN LISPRO 300 UNITS/3 ML VIAL. SQ SCH ×3 (07:53→17:00)
[2021-07-27] MEDS: ARIPiprazole 15 MG TABLET PO SCH (09:00)
[2021-07-27] MEDS: NEOMY/BACITR/POLYMYXIN OINT PACKET. TP SCH ×2 (09:00→19:49)
[2021-07-27] MEDS: NYSTATIN TOPICAL POWDER 15GM BOTTLE. TP SCH ×2 (09:00→19:49)
[2021-07-27] MEDS: DOCUSATE SODIUM 100 MG CAPSULE PO SCH ×2 (09:41→19:48)
[2021-07-27] MEDS: MULTIVITAMIN with MINERAL TABLET. PO SCH (09:41)
[2021-07-27] MEDS: buPROPion XL 150 MG TAB.ER.24H PO SCH (09:41)
[2021-07-27] MEDS: CARVEDILOL 12.5 MG TABLET PO SCH ×2 (09:41→16:51)
[2021-07-27] MEDS: POTASSIUM CHLORIDE 10 MEQ TABLET.ER. PO SCH (09:41)
[2021-07-27] MEDS: FUROSEMIDE 40 MG TABLET PO SCH (09:41)
[2021-07-27] MEDS: DULoxetine HCL 60 MG CAPSULE.DR PO SCH (09:42)
[2021-07-27] MEDS: CLOPIDOGREL BISULFATE 75 MG TABLET PO SCH (09:42)
[2021-07-27] MEDS: ASPIRIN CHEWABLE 81 MG TABLET. PO SCH (09:42)
[2021-07-27] MEDS: LINAGLIPTIN 5 MG TABLET PO SCH (09:42)
--- NOTE | 2021-07-27 10:59 | NUR ---
Pt remains in bed during shift, absent of disruptive behaviors so far during shift. He ate approx 25% of breakfast, morning insulin held d/t BS 135. He is compliant with whole medications. He remains attention seeking; making himself hyperventilate and wheeze only while staff are present and c/o that he "can't breathe." O2 sats remain >98% RA. He has multiple wounds that are visible on BLE, per NOC report pt has additional wounds on the posterior shoulders. Wound assessments and dressing changes pending. Plan of care continues, will pass to next shift.
[2021-07-27 16:02] VITALS: BP 116/75
[2021-07-27] MEDS: DULoxetine HCL 30 MG CAPSULE.DR PO SCH (16:51)
[2021-07-27] MEDS: lamoTRIgine 100 MG TABLET. PO SCH (19:48)
[2021-07-27] MEDS: traZODone 100 MG TABLET. PO SCH (19:48)
[2021-07-27] MEDS: ATORVASTATIN CALCIUM 20 MG TABLET PO SCH (19:48)
[2021-07-27] MEDS: MIRTAZAPINE 30 MG TABLET PO SCH (19:48)
[2021-07-27] MEDS: oxyCODONE/APAP 10/325 1 TAB TABLET PO PRN (20:02)
[2021-07-27] MEDS: traZODone 50 MG TABLET. PO PRN (20:02)
--- NOTE | 2021-07-27 21:36 | PDOC ---
Exam Note: Josef Note: Please also refer to the separate dictated note~for this date of service dictated separately.~Patient seen individually. Discussed the patient with Nursing staff reviewed the chart.~Reviewed interim history and current functioning. Reviewed vital signs,~Labs/ Radiology~and current medications noted below. Continue current treatment with the changes noted in the dictated addendum note Assessment: Vital Signs/I&O: Vital Signs Date Time Temp Pulse Resp B/P (MAP) Pulse Ox O2 Delivery O2 Flow Rate FiO2 07/27/21 16:54 Room Air 07/27/21 16:51 84 116/75 07/27/21 16:02 97.5 20 94 07/26/21 08:00 2.0 I & O 07/26/21 07/26/21 07/27/21 14:59 22:59 06:59 Intake Total 240 ml 480 ml 120 ml Balance 240 ml 480 ml 120 ml Labs: Laboratory Tests Test 07/27/21 07:46 07/27/21 12:16 07/27/21 17:17 07/27/21 19:33 Glucose (Fingerstick) 135 mg/dL (70-99) H 173 mg/dL (70-99) H 157 mg/dL (70-99) H 183 mg/dL (70-99) H Current Medications: Meds: Laboratory Tests Test 07/27/21 07:46 07/27/21 12:16 07/27/21 17:17 07/27/21 19:33 Glucose (Fingerstick) 135 mg/dL 173 mg/dL 157 mg/dL 183 mg/dL Current Medications Medications (Trade) Dose Ordered Sig/Nicky Route PRN Reason Start Time Stop Time Status Last Admin Dose Admin Acetaminophen (Tylenol) 650 mg PRN Q6HRS PRN PO mild pain/temp >100.3 F 07/25/21 23:00 Aripiprazole (Abilify) 15 mg DAILY PO 07/26/21 09:00 07/27/21 09:00 Aspirin (Aspirin Chewable) 81 mg DAILY PO 07/26/21 09:00 07/27/21 09:42 Bupropion HCl (Wellbutrin Xl) 150 mg DAILY PO 07/26/21 09:00 07/27/21 09:41 Clopidogrel Bisulfate (Plavix) 75 mg DAILY PO 07/26/21 09:00 07/27/21 09:42 Dextrose (Dextrose 50%-Water Syringe) 12.5 gm PRN Q15MIN PRN IV hypoglycemia 07/25/21 23:00 Docusate Sodium (Colace) 100 mg BID PO 07/26/21 09:00 07/27/21 19:48 Duloxetine HCl (Cymbalta) 30 mg AFTRNOON PO 07/26/21 13:00 07/27/21 16:51 Duloxetine HCl (Cymbalta) 60 mg DAILY PO 07/26/21 09:00 07/27/21 09:42 Furosemide (Lasix) 40 mg DAILY PO 07/26/21 09:00 07/27/21 09:41 Lamotrigine (LaMICtal) 100 mg QHS PO 07/26/21 21:00 07/27/21 19:48 Linagliptin (Tradjenta) 5 mg DAILY PO 07/26/21 09:00 07/27/21 09:42 Al Hydroxide/Mg Hydroxide (Mylanta Plus Xs) 15 ml PRN AFTMEALHC PRN PO DYSPEPSIA 07/25/21 23:00 Magnesium Citrate (Citroma) 296 ml PRN 1X PRN PO 2nd choice constipation 07/25/21 23:00 Mirtazapine (Remeron) 30 mg HS PO 07/26/21 21:00 07/27/21 19:48 Neomycin/ Polymyxin/ Bacitracin (Triple Antibiotic Ointment) 1 pkt BID TP 07/26/21 09:00 07/27/21 19:49 Nystatin (Nystop) 1 neelima BID TP 07/26/21 09:00 07/27/21 19:49 Olanzapine (ZyPREXA ZYDIS) 2.5 mg PRN Q2HRS PRN PO psychosis/agitation 07/25/21 23:00 07/26/21 13:41 Oxycodone/ Acetaminophen (Percocet 10/325) 1 tab PRN Q6HRS PRN PO PAIN 07/25/21 23:00 07/27/21 20:02 Potassium Chloride (Klor-Con) 30 meq DAILYWBKFT PO 07/26/21 08:00 07/27/21 09:41 Trazodone HCl (Desyrel) 50 mg PRN QHS PRN PO INSOMNIA 07/25/21 23:00 07/27/21 20:02 Trazodone HCl (Desyrel) 100 mg HS PO 07/26/21 21:00 07/27/21 19:48 Trolamine Salicylate (Myoplex) 1 neelima PRN QID PRN TP muscle pain 07/25/21 23:00 Cancel Atorvastatin Calcium (Lipitor) 80 mg QHS PO 07/26/21 21:00 07/27/21 19:48 Carvedilol (Coreg) 37.5 mg BIDWMEALS PO 07/26/21 08:00 07/27/21 16:51 Non-Formulary Medication (Insulin Lispro (Humalog)) SLIDING SCALE TIDWMEALS SQ 07/26/21 08:00 UNV Magnesium Hydroxide (Milk Of Magnesia) 2,400 mg PRN QHS PRN PO 1st choice constipation 07/25/21 23:15 Multivitamins/ Calcium (Thera-M Plus) 1 tab DAILY PO 07/26/21 09:00 07/27/21 09:41 Insulin Human Lispro (HumaLOG) 0-5 UNITS TIDWMEALS SQ 07/26/21 08:00 Multi-Ingredient Ointment (Analgesic [place]) 1 neelima PRN QID PRN TP MUSCLE PAIN 07/26/21 09:15 I have reviewed the current psychotropics carefully including drug interactions. Risk benefit ratio favors no change other than as noted in my dictated progress note. Diagnosis: Problems: (1) Impulse control disorder, unspecified (2) Anxiety disorder, unspecified (3) Major depressive disorder, recurrent (4) COVID-19 ESE LEVI MD Jul 27, 2021 21:36
[2021-07-27 23:00] VITALS: BP 110/72
[2021-07-28 05:00] VITALS: BP 147/90
--- NOTE | 2021-07-28 07:34 | PDOC ---
Exam Note: Josef Note: This note is a late entry for 07/26/2021 covers elements not covered in my initial note. Subjective: The patient seen on telehealth rounds on 07/26/2021 with Isidra MODI with the camera, discussed and reviewed the chart. Reviewed his interim history and current functioning. Overall the patient has been fairly oriented and cooperative. He remains anxious sometimes, is manifesting symptoms of Covid infection with breathlessness complaints but nursing staff feels this is part of his somatic symptoms rather than true symptoms and reflective of his anxiety. Review of Systems: Ambulation impaired, transfers with Shyam lift. No CV, , eye, ENT system symptoms on review. He complains of some shortness of breath. Mental Status Exam: The patient is quite pleasant, verbal, interactive. Speech coherent. Abstraction fair. Computation impaired. Language function intact. Mood and affect somewhat dysphoric. No suicidal or homicidal ideation. Laboratory Data: Reviewed. Impression: Major depressive disorder, recurrent, rule out psychotic features. Anxiety disorder unspecified. Plan: Continue current psychotropics and I addressed the above with him, processed cognitive behavioral ways to help improve mood and anxiety. Assessment: Vital Signs/I&O: Vital Signs Date Time Temp Pulse Resp B/P (MAP) Pulse Ox O2 Delivery O2 Flow Rate FiO2 07/28/21 05:00 96.6 94 22 147/90 (109) 94 Room Air 07/27/21 23:00 2.0 I & O 07/27/21 07/27/21 07/28/21 15:00 23:00 07:00 Intake Total 740 ml 500 ml 0 ml Balance 740 ml 500 ml 0 ml Labs: Laboratory Tests Test 07/27/21 07:46 07/27/21 12:16 07/27/21 17:17 07/27/21 19:33 Glucose (Fingerstick) 135 mg/dL (70-99) H 173 mg/dL (70-99) H 157 mg/dL (70-99) H 183 mg/dL (70-99) H Current Medications: Meds: Laboratory Tests Test 07/27/21 07:46 07/27/21 12:16 07/27/21 17:17 07/27/21 19:33 Glucose (Fingerstick) 135 mg/dL 173 mg/dL 157 mg/dL 183 mg/dL Current Medications Medications (Trade) Dose Ordered Sig/Nicky Route PRN Reason Start Time Stop Time Status Last Admin Dose Admin Acetaminophen (Tylenol) 650 mg PRN Q6HRS PRN PO mild pain/temp >100.3 F 07/25/21 23:00 Aripiprazole (Abilify) 15 mg DAILY PO 07/26/21 09:00 07/27/21 09:00 Aspirin (Aspirin Chewable) 81 mg DAILY PO 07/26/21 09:00 07/27/21 09:42 Bupropion HCl (Wellbutrin Xl) 150 mg DAILY PO 07/26/21 09:00 07/27/21 09:41 Clopidogrel Bisulfate (Plavix) 75 mg DAILY PO 07/26/21 09:00 07/27/21 09:42 Dextrose (Dextrose 50%-Water Syringe) 12.5 gm PRN Q15MIN PRN IV hypoglycemia 07/25/21 23:00 Docusate Sodium (Colace) 100 mg BID PO 07/26/21 09:00 07/27/21 19:48 Duloxetine HCl (Cymbalta) 30 mg AFTRNOON PO 07/26/21 13:00 07/27/21 16:51 Duloxetine HCl (Cymbalta) 60 mg DAILY PO 07/26/21 09:00 07/27/21 09:42 Furosemide (Lasix) 40 mg DAILY PO 07/26/21 09:00 07/27/21 09:41 Lamotrigine (LaMICtal) 100 mg QHS PO 07/26/21 21:00 07/27/21 19:48 Linagliptin (Tradjenta) 5 mg DAILY PO 07/26/21 09:00 07/27/21 09:42 Al Hydroxide/Mg Hydroxide (Mylanta Plus Xs) 15 ml PRN AFTMEALHC PRN PO DYSPEPSIA 07/25/21 23:00 Magnesium Citrate (Citroma) 296 ml PRN 1X PRN PO 2nd choice constipation 07/25/21 23:00 Mirtazapine (Remeron) 30 mg HS PO 07/26/21 21:00 07/27/21 19:48 Neomycin/ Polymyxin/ Bacitracin (Triple Antibiotic Ointment) 1 pkt BID TP 07/26/21 09:00 07/27/21 19:49 Nystatin (Nystop) 1 neelima BID TP 07/26/21 09:00 07/27/21 19:49 Olanzapine (ZyPREXA ZYDIS) 2.5 mg PRN Q2HRS PRN PO psychosis/agitation 07/25/21 23:00 07/26/21 13:41 Oxycodone/ Acetaminophen (Percocet 10/325) 1 tab PRN Q6HRS PRN PO PAIN 07/25/21 23:00 07/27/21 20:02 Potassium Chloride (Klor-Con) 30 meq DAILYWBKFT PO 07/26/21 08:00 07/27/21 09:41 Trazodone HCl (Desyrel) 50 mg PRN QHS PRN PO INSOMNIA 07/25/21 23:00 07/27/21 20:02 Trazodone HCl (Desyrel) 100 mg HS PO 07/26/21 21:00 07/27/21 19:48 Trolamine Salicylate (Myoplex) 1 neelima PRN QID PRN TP muscle pain 07/25/21 23:00 Cancel Atorvastatin Calcium (Lipitor) 80 mg QHS PO 07/26/21 21:00 07/27/21 19:48 Carvedilol (Coreg) 37.5 mg BIDWMEALS PO 07/26/21 08:00 07/27/21 16:51 Non-Formulary Medication (Insulin Lispro (Humalog)) SLIDING SCALE TIDWMEALS SQ 07/26/21 08:00 UNV Magnesium Hydroxide (Milk Of Magnesia) 2,400 mg PRN QHS PRN PO 1st choice constipation 07/25/21 23:15 Multivitamins/ Calcium (Thera-M Plus) 1 tab DAILY PO 07/26/21 09:00 07/27/21 09:41 Insulin Human Lispro (HumaLOG) 0-5 UNITS TIDWMEALS SQ 07/26/21 08:00 Multi-Ingredient Ointment (Analgesic [place]) 1 neelima PRN QID PRN TP MUSCLE PAIN 07/26/21 09:15 I have reviewed the current psychotropics carefully including drug interactions. Risk benefit ratio favors no change other than as noted in my dictated progress note. Diagnosis: Problems: (1) Impulse control disorder, unspecified (2) Anxiety disorder, unspecified (3) Major depressive disorder, recurrent (4) COVID-19 ESE LEVI MD Jul 28, 2021 07:34
--- NOTE | 2021-07-28 07:52 | PDOC ---
Exam Note: Josef Note: This note is a late entry for 07/27/2021 covers elements not covered in my initial note. Subjective: The patient seen on telehealth rounds on 07/27/2021 with Elyse MODI, discussed and reviewed the chart. Reviewed his interim history and current functioning. The patient has been somatic. O2 sats are 98% on room air. Wounds are worse and seemed to be self inflicted because he scratches anything that is healing. I addressed this with him individually on telehealth rounds. He agreed to control this. He has new open wounds on his feet, complains of some wheezing and hyperventilation. He has not been dumping his urinal on the floor or not throwing himself out of the bed. Review of Systems: Ambulation impaired, transfers with Shyam lift. No CV, , eye, ENT system symptoms on review. He does complain of some shortness of breath at times. Mental Status Exam: The patient is reasonably oriented. Speech coherent. Abstraction fair. Computation impaired. We had discussion about increased wounds on his lower extremities and he admits he could be scratching himself and we addressed how to control this. He seemed to show insight but when it comes to it pragmatically often he does not change during the day. We will continue to monitor this. Language function intact. Mood and affect somewhat dysphoric. No suicidal or homicidal ideation. Laboratory Data: Reviewed. Impression: Major depressive disorder, recurrent, rule out psychotic features. Anxiety disorder unspecified. Plan: Continue current psychotropics. Assessment: Vital Signs/I&O: Vital Signs Date Time Temp Pulse Resp B/P (MAP) Pulse Ox O2 Delivery O2 Flow Rate FiO2 07/28/21 05:00 96.6 94 22 147/90 (109) 94 Room Air 07/27/21 23:00 2.0 I & O 07/27/21 07/27/21 07/28/21 15:00 23:00 07:00 Intake Total 740 ml 500 ml 0 ml Balance 740 ml 500 ml 0 ml Labs: Laboratory Tests Test 07/27/21 12:16 07/27/21 17:17 07/27/21 19:33 07/28/21 07:44 Glucose (Fingerstick) 173 mg/dL (70-99) H 157 mg/dL (70-99) H 183 mg/dL (70-99) H 138 mg/dL (70-99) H Current Medications: Meds: Laboratory Tests Test 07/27/21 12:16 07/27/21 17:17 07/27/21 19:33 07/28/21 07:44 Glucose (Fingerstick) 173 mg/dL 157 mg/dL 183 mg/dL 138 mg/dL Current Medications Medications (Trade) Dose Ordered Sig/Nicky Route PRN Reason Start Time Stop Time Status Last Admin Dose Admin Acetaminophen (Tylenol) 650 mg PRN Q6HRS PRN PO mild pain/temp >100.3 F 07/25/21 23:00 Aripiprazole (Abilify) 15 mg DAILY PO 07/26/21 09:00 07/27/21 09:00 Aspirin (Aspirin Chewable) 81 mg DAILY PO 07/26/21 09:00 07/27/21 09:42 Bupropion HCl (Wellbutrin Xl) 150 mg DAILY PO 07/26/21 09:00 07/27/21 09:41 Clopidogrel Bisulfate (Plavix) 75 mg DAILY PO 07/26/21 09:00 07/27/21 09:42 Dextrose (Dextrose 50%-Water Syringe) 12.5 gm PRN Q15MIN PRN IV hypoglycemia 07/25/21 23:00 Docusate Sodium (Colace) 100 mg BID PO 07/26/21 09:00 07/27/21 19:48 Duloxetine HCl (Cymbalta) 30 mg AFTRNOON PO 07/26/21 13:00 07/27/21 16:51 Duloxetine HCl (Cymbalta) 60 mg DAILY PO 07/26/21 09:00 07/27/21 09:42 Furosemide (Lasix) 40 mg DAILY PO 07/26/21 09:00 07/27/21 09:41 Lamotrigine (LaMICtal) 100 mg QHS PO 07/26/21 21:00 07/27/21 19:48 Linagliptin (Tradjenta) 5 mg DAILY PO 07/26/21 09:00 07/27/21 09:42 Al Hydroxide/Mg Hydroxide (Mylanta Plus Xs) 15 ml PRN AFTMEALHC PRN PO DYSPEPSIA 07/25/21 23:00 Magnesium Citrate (Citroma) 296 ml PRN 1X PRN PO 2nd choice constipation 07/25/21 23:00 Mirtazapine (Remeron) 30 mg HS PO 07/26/21 21:00 07/27/21 19:48 Neomycin/ Polymyxin/ Bacitracin (Triple Antibiotic Ointment) 1 pkt BID TP 07/26/21 09:00 07/27/21 19:49 Nystatin (Nystop) 1 neelima BID TP 07/26/21 09:00 07/27/21 19:49 Olanzapine (ZyPREXA ZYDIS) 2.5 mg PRN Q2HRS PRN PO psychosis/agitation 07/25/21 23:00 07/26/21 13:41 Oxycodone/ Acetaminophen (Percocet 10/325) 1 tab PRN Q6HRS PRN PO PAIN 07/25/21 23:00 07/27/21 20:02 Potassium Chloride (Klor-Con) 30 meq DAILYWBKFT PO 07/26/21 08:00 07/27/21 09:41 Trazodone HCl (Desyrel) 50 mg PRN QHS PRN PO INSOMNIA 07/25/21 23:00 07/27/21 20:02 Trazodone HCl (Desyrel) 100 mg HS PO 07/26/21 21:00 07/27/21 19:48 Trolamine Salicylate (Myoplex) 1 neelima PRN QID PRN TP muscle pain 07/25/21 23:00 Cancel Atorvastatin Calcium (Lipitor) 80 mg QHS PO 07/26/21 21:00 07/27/21 19:48 Carvedilol (Coreg) 37.5 mg BIDWMEALS PO 07/26/21 08:00 07/27/21 16:51 Non-Formulary Medication (Insulin Lispro (Humalog)) SLIDING SCALE TIDWMEALS SQ 07/26/21 08:00 UNV Magnesium Hydroxide (Milk Of Magnesia) 2,400 mg PRN QHS PRN PO 1st choice constipation 07/25/21 23:15 Multivitamins/ Calcium (Thera-M Plus) 1 tab DAILY PO 07/26/21 09:00 07/27/21 09:41 Insulin Human Lispro (HumaLOG) 0-5 UNITS TIDWMEALS SQ 07/26/21 08:00 Multi-Ingredient Ointment (Analgesic [place]) 1 neelima PRN QID PRN TP MUSCLE PAIN 07/26/21 09:15 I have reviewed the current psychotropics carefully including drug interactions. Risk benefit ratio favors no change other than as noted in my dictated progress note. Diagnosis: Problems: (1) Impulse control disorder, unspecified (2) Anxiety disorder, unspecified (3) Major depressive disorder, recurrent (4) COVID-19 ESE LEVI MD Jul 28, 2021 07:52
[2021-07-28] MEDS: buPROPion XL 150 MG TAB.ER.24H PO SCH (07:53)
[2021-07-28] MEDS: DULoxetine HCL 60 MG CAPSULE.DR PO SCH (07:53)
[2021-07-28] MEDS: POTASSIUM CHLORIDE 10 MEQ TABLET.ER. PO SCH (07:56)
[2021-07-28] MEDS: ASPIRIN CHEWABLE 81 MG TABLET. PO SCH (07:57)
[2021-07-28] MEDS: FUROSEMIDE 40 MG TABLET PO SCH (07:57)
[2021-07-28] MEDS: CLOPIDOGREL BISULFATE 75 MG TABLET PO SCH (07:57)
[2021-07-28] MEDS: LINAGLIPTIN 5 MG TABLET PO SCH (07:57)
[2021-07-28] MEDS: DOCUSATE SODIUM 100 MG CAPSULE PO SCH ×2 (07:57→20:40)
[2021-07-28] MEDS: CARVEDILOL 12.5 MG TABLET PO SCH ×2 (07:57→16:33)
[2021-07-28] MEDS: NEOMY/BACITR/POLYMYXIN OINT PACKET. TP SCH ×2 (07:58→20:40)
[2021-07-28] MEDS: ARIPiprazole 15 MG TABLET PO SCH (07:58)
[2021-07-28] MEDS: NYSTATIN TOPICAL POWDER 15GM BOTTLE. TP SCH ×2 (07:58→20:40)
[2021-07-28] MEDS: MULTIVITAMIN with MINERAL TABLET. PO SCH (07:58)
[2021-07-28] MEDS: INSULIN LISPRO 300 UNITS/3 ML VIAL. SQ SCH ×3 (07:59→17:00)
[2021-07-28 11:30] VITALS: BP 107/68
[2021-07-28] MEDS: DULoxetine HCL 30 MG CAPSULE.DR PO SCH (12:17)
--- NOTE | 2021-07-28 12:53 | NUR ---
Nurse Day Shift Note: Pt presents with pleasant mood/affect. Pt is medication compliant. Pt is noted to be resting in bed during the day. It is noted pt likes hard boiled eggs and cold cut sandwiches. Will continue to monitor.
[2021-07-28 14:30] VITALS: BP 112/63
[2021-07-28] MEDS: oxyCODONE/APAP 10/325 1 TAB TABLET PO PRN ×2 (15:18→23:49)
[2021-07-28 18:00] VITALS: BP 101/65
[2021-07-28] MEDS: ATORVASTATIN CALCIUM 20 MG TABLET PO SCH (20:40)
[2021-07-28] MEDS: lamoTRIgine 100 MG TABLET. PO SCH (20:40)
[2021-07-28] MEDS: traZODone 100 MG TABLET. PO SCH (20:40)
[2021-07-28] MEDS: MIRTAZAPINE 30 MG TABLET PO SCH (20:40)
--- NOTE | 2021-07-28 21:40 | PDOC ---
Exam Note: Josef Note: Please also refer to the separate dictated note~for this date of service dictated separately.~Patient seen individually. Discussed the patient with Nursing staff reviewed the chart.~Reviewed interim history and current functioning. Reviewed vital signs,~Labs/ Radiology~and current medications noted below. Continue current treatment with the changes noted in the dictated addendum note Assessment: Vital Signs/I&O: Vital Signs Date Time Temp Pulse Resp B/P (MAP) Pulse Ox O2 Delivery O2 Flow Rate FiO2 07/28/21 18:00 96.9 97 18 101/65 (77) 95 07/28/21 14:30 Room Air 07/27/21 23:00 2.0 I & O 0 07/27/21 07/27/21 07/28/21 14:59 22:59 06:59 Intake Total 740 ml 500 ml 0 ml Balance 740 ml 500 ml 0 ml Labs: Laboratory Tests Test 07/28/21 07:44 07/28/21 11:56 07/28/21 16:43 07/28/21 20:06 Glucose (Fingerstick) 138 mg/dL (70-99) H 140 mg/dL (70-99) H 145 mg/dL (70-99) H 175 mg/dL (70-99) H Current Medications: Meds: Laboratory Tests Test 07/28/21 07:44 07/28/21 11:56 07/28/21 16:43 07/28/21 20:06 Glucose (Fingerstick) 138 mg/dL 140 mg/dL 145 mg/dL 175 mg/dL Current Medications Medications (Trade) Dose Ordered Sig/Nicky Route PRN Reason Start Time Stop Time Status Last Admin Dose Admin Acetaminophen (Tylenol) 650 mg PRN Q6HRS PRN PO mild pain/temp >100.3 F 07/25/21 23:00 Aripiprazole (Abilify) 15 mg DAILY PO 07/26/21 09:00 07/28/21 07:58 Aspirin (Aspirin Chewable) 81 mg DAILY PO 07/26/21 09:00 07/28/21 07:57 Bupropion HCl (Wellbutrin Xl) 150 mg DAILY PO 07/26/21 09:00 07/28/21 07:53 Clopidogrel Bisulfate (Plavix) 75 mg DAILY PO 07/26/21 09:00 07/28/21 07:57 Dextrose (Dextrose 50%-Water Syringe) 12.5 gm PRN Q15MIN PRN IV hypoglycemia 07/25/21 23:00 Docusate Sodium (Colace) 100 mg BID PO 07/26/21 09:00 07/28/21 20:40 Duloxetine HCl (Cymbalta) 30 mg AFTRNOON PO 07/26/21 13:00 07/28/21 12:17 Duloxetine HCl (Cymbalta) 60 mg DAILY PO 07/26/21 09:00 07/28/21 07:53 Furosemide (Lasix) 40 mg DAILY PO 07/26/21 09:00 07/28/21 07:57 Lamotrigine (LaMICtal) 100 mg QHS PO 07/26/21 21:00 07/28/21 20:40 Linagliptin (Tradjenta) 5 mg DAILY PO 07/26/21 09:00 07/28/21 07:57 Al Hydroxide/Mg Hydroxide (Mylanta Plus Xs) 15 ml PRN AFTMEALHC PRN PO DYSPEPSIA 07/25/21 23:00 Magnesium Citrate (Citroma) 296 ml PRN 1X PRN PO 2nd choice constipation 07/25/21 23:00 Mirtazapine (Remeron) 30 mg HS PO 07/26/21 21:00 07/28/21 20:40 Neomycin/ Polymyxin/ Bacitracin (Triple Antibiotic Ointment) 1 pkt BID TP 07/26/21 09:00 07/28/21 20:40 Nystatin (Nystop) 1 neelima BID TP 07/26/21 09:00 07/28/21 20:40 Olanzapine (ZyPREXA ZYDIS) 2.5 mg PRN Q2HRS PRN PO psychosis/agitation 07/25/21 23:00 07/26/21 13:41 Oxycodone/ Acetaminophen (Percocet 10/325) 1 tab PRN Q6HRS PRN PO PAIN 07/25/21 23:00 07/28/21 15:18 Potassium Chloride (Klor-Con) 30 meq DAILYWBKFT PO 07/26/21 08:00 07/28/21 07:56 Trazodone HCl (Desyrel) 50 mg PRN QHS PRN PO INSOMNIA 07/25/21 23:00 07/27/21 20:02 Trazodone HCl (Desyrel) 100 mg HS PO 07/26/21 21:00 07/28/21 20:40 Trolamine Salicylate (Myoplex) 1 neelima PRN QID PRN TP muscle pain 07/25/21 23:00 Cancel Atorvastatin Calcium (Lipitor) 80 mg QHS PO 07/26/21 21:00 07/28/21 20:40 Carvedilol (Coreg) 37.5 mg BIDWMEALS PO 07/26/21 08:00 07/28/21 16:33 Non-Formulary Medication (Insulin Lispro (Humalog)) SLIDING SCALE TIDWMEALS SQ 07/26/21 08:00 UNV Magnesium Hydroxide (Milk Of Magnesia) 2,400 mg PRN QHS PRN PO 1st choice constipation 07/25/21 23:15 Multivitamins/ Calcium (Thera-M Plus) 1 tab DAILY PO 07/26/21 09:00 07/28/21 07:58 Insulin Human Lispro (HumaLOG) 0-5 UNITS TIDWMEALS SQ 07/26/21 08:00 Multi-Ingredient Ointment (Analgesic [place]) 1 neelima PRN QID PRN TP MUSCLE PAIN 07/26/21 09:15 I have reviewed the current psychotropics carefully including drug interactions. Risk benefit ratio favors no change other than as noted in my dictated progress note. Diagnosis: Problems: (1) Impulse control disorder, unspecified (2) Anxiety disorder, unspecified (3) Major depressive disorder, recurrent (4) COVID-19 ESE LEVI MD Jul 28, 2021 21:40
[2021-07-28 22:28] VITALS: BP 98/63
--- NOTE | 2021-07-28 23:41 | NUR ---
Pt located in his room laying calmly in bed. Compliant with whole medications. Pt dozing on/off all evening.
[2021-07-28] MEDS: traZODone 50 MG TABLET. PO PRN (23:49)
[2021-07-29 06:29] VITALS: BP 132/90
[2021-07-29] MEDS: INSULIN LISPRO 300 UNITS/3 ML VIAL. SQ SCH ×3 (08:00→17:00)
--- NOTE | 2021-07-29 08:27 | PDOC ---
Exam Note: Josef Note: This note is a late entry for 07/28/2021 covers elements not covered in my initial note. Subjective: The patient reviewed on 07/28/2021 with Manuel MODI, discussed and reviewed the chart. Reviewed his interim history and current functioning. Overall the patient has had poor appetite, otherwise pleasant, doing about the same. He has not been scratching on himself. Review of Systems: Per nursing report no CV, , eye, ENT system symptoms on review. Gait unsteady, transfers with Shyam lift. Mental Status Exam: Per nursing observation, the patient is alert and oriented. Speech coherent. Abstraction fair. Computation impaired. Language function intact. Mood and affect improved. No suicidal ideation. Laboratory Data: Reviewed. Impression: Major depressive disorder, recurrent, rule out psychotic features. Anxiety disorder unspecified. Plan: Continue current psychotropics. Assessment: Vital Signs/I&O: Vital Signs Date Time Temp Pulse Resp B/P (MAP) Pulse Ox O2 Delivery O2 Flow Rate FiO2 07/29/21 06:29 97.0 93 20 132/90 (104) 97 2.0 07/28/21 20:00 Room Air I & O 07/28/21 07/28/21 07/29/21 14:59 22:59 06:59 Intake Total 580 ml 220 ml 300 ml Balance 580 ml 220 ml 300 ml Labs: Laboratory Tests Test 07/28/21 11:56 07/28/21 16:43 07/28/21 20:06 07/29/21 08:08 Glucose (Fingerstick) 140 mg/dL (70-99) H 145 mg/dL (70-99) H 175 mg/dL (70-99) H 164 mg/dL (70-99) H Current Medications: Meds: Laboratory Tests Test 07/28/21 11:56 07/28/21 16:43 07/28/21 20:06 07/29/21 08:08 Glucose (Fingerstick) 140 mg/dL 145 mg/dL 175 mg/dL 164 mg/dL Current Medications Medications (Trade) Dose Ordered Sig/Nicky Route PRN Reason Start Time Stop Time Status Last Admin Dose Admin Acetaminophen (Tylenol) 650 mg PRN Q6HRS PRN PO mild pain/temp >100.3 F 07/25/21 23:00 Aripiprazole (Abilify) 15 mg DAILY PO 1/15/22 09:00 07/28/21 07:58 Aspirin (Aspirin Chewable) 81 mg DAILY PO 07/26/21 09:00 07/28/21 07:57 Bupropion HCl (Wellbutrin Xl) 150 mg DAILY PO 07/26/21 09:00 07/28/21 07:53 Clopidogrel Bisulfate (Plavix) 75 mg DAILY PO 07/26/21 09:00 07/28/21 07:57 Dextrose (Dextrose 50%-Water Syringe) 12.5 gm PRN Q15MIN PRN IV hypoglycemia 07/25/21 23:00 Docusate Sodium (Colace) 100 mg BID PO 07/26/21 09:00 07/28/21 20:40 Duloxetine HCl (Cymbalta) 30 mg AFTRNOON PO 07/26/21 13:00 07/28/21 12:17 Duloxetine HCl (Cymbalta) 60 mg DAILY PO 07/26/21 09:00 07/28/21 07:53 Furosemide (Lasix) 40 mg DAILY PO 07/26/21 09:00 07/28/21 07:57 Lamotrigine (LaMICtal) 100 mg QHS PO 07/26/21 21:00 07/28/21 20:40 Linagliptin (Tradjenta) 5 mg DAILY PO 07/26/21 09:00 07/28/21 07:57 Al Hydroxide/Mg Hydroxide (Mylanta Plus Xs) 15 ml PRN AFTMEALHC PRN PO DYSPEPSIA 07/25/21 23:00 Magnesium Citrate (Citroma) 296 ml PRN 1X PRN PO 2nd choice constipation 07/25/21 23:00 Mirtazapine (Remeron) 30 mg HS PO 07/26/21 21:00 07/28/21 20:40 Neomycin/ Polymyxin/ Bacitracin (Triple Antibiotic Ointment) 1 pkt BID TP 07/26/21 09:00 07/28/21 20:40 Nystatin (Nystop) 1 neelima BID TP 07/26/21 09:00 07/28/21 20:40 Olanzapine (ZyPREXA ZYDIS) 2.5 mg PRN Q2HRS PRN PO psychosis/agitation 07/25/21 23:00 07/26/21 13:41 Oxycodone/ Acetaminophen (Percocet 10/325) 1 tab PRN Q6HRS PRN PO PAIN 07/25/21 23:00 07/28/21 23:49 Potassium Chloride (Klor-Con) 30 meq DAILYWBKFT PO 07/26/21 08:00 07/28/21 07:56 Trazodone HCl (Desyrel) 50 mg PRN QHS PRN PO INSOMNIA 07/25/21 23:00 07/28/21 23:49 Trazodone HCl (Desyrel) 100 mg HS PO 07/26/21 21:00 07/28/21 20:40 Trolamine Salicylate (Myoplex) 1 neelima PRN QID PRN TP muscle pain 07/25/21 23:00 Cancel Atorvastatin Calcium (Lipitor) 80 mg QHS PO 07/26/21 21:00 07/28/21 20:40 Carvedilol (Coreg) 37.5 mg BIDWMEALS PO 07/26/21 08:00 07/28/21 16:33 Non-Formulary Medication (Insulin Lispro (Humalog)) SLIDING SCALE TIDWMEALS SQ 07/26/21 08:00 UNV Magnesium Hydroxide (Milk Of Magnesia) 2,400 mg PRN QHS PRN PO 1st choice constipation 07/25/21 23:15 Multivitamins/ Calcium (Thera-M Plus) 1 tab DAILY PO 07/26/21 09:00 07/28/21 07:58 Insulin Human Lispro (HumaLOG) 0-5 UNITS TIDWMEALS SQ 07/26/21 08:00 Multi-Ingredient Ointment (Analgesic [place]) 1 neelima PRN QID PRN TP MUSCLE PAIN 07/26/21 09:15 I have reviewed the current psychotropics carefully including drug interactions. Risk benefit ratio favors no change other than as noted in my dictated progress note. Diagnosis: Problems: (1) Impulse control disorder, unspecified (2) Anxiety disorder, unspecified (3) Major depressive disorder, recurrent (4) COVID-19 ESE LVEI MD Jul 29, 2021 08:26
[2021-07-29] MEDS: ASPIRIN CHEWABLE 81 MG TABLET. PO SCH (08:50)
[2021-07-29] MEDS: DULoxetine HCL 60 MG CAPSULE.DR PO SCH (08:50)
[2021-07-29] MEDS: POTASSIUM CHLORIDE 10 MEQ TABLET.ER. PO SCH (08:50)
[2021-07-29] MEDS: CARVEDILOL 12.5 MG TABLET PO SCH ×2 (08:50→17:10)
[2021-07-29] MEDS: CLOPIDOGREL BISULFATE 75 MG TABLET PO SCH (08:50)
[2021-07-29] MEDS: MULTIVITAMIN with MINERAL TABLET. PO SCH (08:50)
[2021-07-29] MEDS: FUROSEMIDE 40 MG TABLET PO SCH (08:50)
[2021-07-29] MEDS: buPROPion XL 150 MG TAB.ER.24H PO SCH (08:50)
[2021-07-29] MEDS: LINAGLIPTIN 5 MG TABLET PO SCH (08:50)
[2021-07-29] MEDS: ARIPiprazole 15 MG TABLET PO SCH (08:50)
[2021-07-29] MEDS: DOCUSATE SODIUM 100 MG CAPSULE PO SCH ×2 (08:50→19:27)
[2021-07-29] MEDS: NYSTATIN TOPICAL POWDER 15GM BOTTLE. TP SCH ×2 (08:51→19:28)
[2021-07-29] MEDS: NEOMY/BACITR/POLYMYXIN OINT PACKET. TP SCH ×2 (08:51→19:28)
[2021-07-29 12:26] VITALS: BP 142/89
[2021-07-29] MEDS: DULoxetine HCL 30 MG CAPSULE.DR PO SCH (12:48)
[2021-07-29 15:51] VITALS: BP 111/73
--- NOTE | 2021-07-29 16:17 | NUR ---
Nursing note: Patient cooperative with assessment. Compliant with medications crushed/floated in pudding. He is A/O X3, not to situation. He has been sleeping on and off through the day. He has been absent of disruptive behaviors. He has been eating very poorly, morning & lunch insulin held. He remains attention seeking; making himself hyperventilate and wheeze only while staff are present and c/o that he "can't breathe." SaO2 remain >98% RA. He has multiple wounds that are visible on BLE. He is currently resting in bed with eyes closed. Will continue to monitor.
[2021-07-29] MEDS: MIRTAZAPINE 30 MG TABLET PO SCH (19:27)
[2021-07-29] MEDS: ATORVASTATIN CALCIUM 20 MG TABLET PO SCH (19:27)
[2021-07-29] MEDS: lamoTRIgine 100 MG TABLET. PO SCH (19:28)
[2021-07-29] MEDS: traZODone 100 MG TABLET. PO SCH (19:28)
[2021-07-29] MEDS: traZODone 50 MG TABLET. PO PRN (19:50)
[2021-07-29] MEDS: oxyCODONE/APAP 10/325 1 TAB TABLET PO PRN (19:50)
[2021-07-29 21:13] VITALS: BP 109/69
--- NOTE | 2021-07-29 21:44 | PDOC ---
Exam Note: Josef Note: Please also refer to the separate dictated note~for this date of service dictated separately.~Patient seen individually. Discussed the patient with Nursing staff reviewed the chart.~Reviewed interim history and current functioning. Reviewed vital signs,~Labs/ Radiology~and current medications noted below. Continue current treatment with the changes noted in the dictated addendum note Assessment: Vital Signs/I&O: Vital Signs Date Time Temp Pulse Resp B/P (MAP) Pulse Ox O2 Delivery O2 Flow Rate FiO2 07/29/21 21:13 97.0 88 22 109/69 (82) 95 2.0 07/29/21 08:00 Room Air I & O 07/28/21 07/28/21 07/29/21 15:00 23:00 07:00 Intake Total 580 ml 220 ml 300 ml Balance 580 ml 220 ml 300 ml Labs: Laboratory Tests Test 07/29/21 08:08 07/29/21 12:09 07/29/21 16:30 07/29/21 18:55 Glucose (Fingerstick) 164 mg/dL (70-99) H 181 mg/dL (70-99) H 164 mg/dL (70-99) H 176 mg/dL (70-99) H Current Medications: Meds: Laboratory Tests Test 07/29/21 08:08 07/29/21 12:09 07/29/21 16:30 07/29/21 18:55 Glucose (Fingerstick) 164 mg/dL 181 mg/dL 164 mg/dL 176 mg/dL Current Medications Medications (Trade) Dose Ordered Sig/Nicky Route PRN Reason Start Time Stop Time Status Last Admin Dose Admin Acetaminophen (Tylenol) 650 mg PRN Q6HRS PRN PO mild pain/temp >100.3 F 07/25/21 23:00 Aripiprazole (Abilify) 15 mg DAILY PO 07/26/21 09:00 07/29/21 08:50 Aspirin (Aspirin Chewable) 81 mg DAILY PO 07/26/21 09:00 07/29/21 08:50 Bupropion HCl (Wellbutrin Xl) 150 mg DAILY PO 07/26/21 09:00 07/29/21 08:50 Clopidogrel Bisulfate (Plavix) 75 mg DAILY PO 07/26/21 09:00 07/29/21 08:50 Dextrose (Dextrose 50%-Water Syringe) 12.5 gm PRN Q15MIN PRN IV hypoglycemia 07/25/21 23:00 Docusate Sodium (Colace) 100 mg BID PO 07/26/21 09:00 07/29/21 19:27 Duloxetine HCl (Cymbalta) 30 mg AFTRNOON PO 07/26/21 13:00 07/29/21 12:48 Duloxetine HCl (Cymbalta) 60 mg DAILY PO 07/26/21 09:00 07/29/21 08:50 Furosemide (Lasix) 40 mg DAILY PO 07/26/21 09:00 07/29/21 08:50 Lamotrigine (LaMICtal) 100 mg QHS PO 07/26/21 21:00 07/29/21 19:28 Linagliptin (Tradjenta) 5 mg DAILY PO 07/26/21 09:00 07/29/21 08:50 Al Hydroxide/Mg Hydroxide (Mylanta Plus Xs) 15 ml PRN AFTMEALHC PRN PO DYSPEPSIA 07/25/21 23:00 Magnesium Citrate (Citroma) 296 ml PRN 1X PRN PO 2nd choice constipation 07/25/21 23:00 Mirtazapine (Remeron) 30 mg HS PO 07/26/21 21:00 07/29/21 19:27 Neomycin/ Polymyxin/ Bacitracin (Triple Antibiotic Ointment) 1 pkt BID TP 07/26/21 09:00 07/29/21 19:28 Nystatin (Nystop) 1 neelima BID TP 07/26/21 09:00 07/29/21 19:28 Olanzapine (ZyPREXA ZYDIS) 2.5 mg PRN Q2HRS PRN PO psychosis/agitation 07/25/21 23:00 07/26/21 13:41 Oxycodone/ Acetaminophen (Percocet 10/325) 1 tab PRN Q6HRS PRN PO PAIN 07/25/21 23:00 07/29/21 19:50 Potassium Chloride (Klor-Con) 30 meq DAILYWBKFT PO 07/26/21 08:00 07/29/21 08:50 Trazodone HCl (Desyrel) 50 mg PRN QHS PRN PO INSOMNIA 07/25/21 23:00 07/29/21 19:50 Trazodone HCl (Desyrel) 100 mg HS PO 07/26/21 21:00 07/29/21 19:28 Trolamine Salicylate (Myoplex) 1 neelima PRN QID PRN TP muscle pain 07/25/21 23:00 Cancel Atorvastatin Calcium (Lipitor) 80 mg QHS PO 07/26/21 21:00 07/29/21 19:27 Carvedilol (Coreg) 37.5 mg BIDWMEALS PO 07/26/21 08:00 07/29/21 17:10 Non-Formulary Medication (Insulin Lispro (Humalog)) SLIDING SCALE TIDWMEALS SQ 07/26/21 08:00 UNV Magnesium Hydroxide (Milk Of Magnesia) 2,400 mg PRN QHS PRN PO 1st choice constipation 07/25/21 23:15 07/29/21 08:49 Multivitamins/ Calcium (Thera-M Plus) 1 tab DAILY PO 07/26/21 09:00 07/29/21 08:50 Insulin Human Lispro (HumaLOG) 0-5 UNITS TIDWMEALS SQ 07/26/21 08:00 Multi-Ingredient Ointment (Analgesic [place]) 1 neelima PRN QID PRN TP MUSCLE PAIN 07/26/21 09:15 I have reviewed the current psychotropics carefully including drug interactions. Risk benefit ratio favors no change other than as noted in my dictated progress note. Diagnosis: Problems: (1) Impulse control disorder, unspecified (2) Anxiety disorder, unspecified (3) Major depressive disorder, recurrent (4) COVID-19 ESE LEVI MD Jul 29, 2021 21:44
[2021-07-30] MEDS: oxyCODONE/APAP 10/325 1 TAB TABLET PO PRN (03:00)
--- NOTE | 2021-07-30 04:20 | NUR ---
Nursing Note Pt in bed complains of generalized pain. Percocet given. Pt has wounds all over his legs and feet. Constantly rubs feet and legs on the bed.
[2021-07-30 06:08] VITALS: BP 122/79
[2021-07-30] MEDS: INSULIN LISPRO 300 UNITS/3 ML VIAL. SQ SCH ×3 (08:00→17:00)
--- NOTE | 2021-07-30 08:26 | PDOC ---
Exam Note: Josef Note: This note is a late entry for 07/29/2021 covers elements not covered in my initial note. Subjective: The patient seen on telehealth rounds on 07/29/2021 with Kathy Gray RN, discussed and reviewed the chart. Reviewed his interim history and current functioning. The patients oral intake remains poor. He has not been scratching himself however. Review of Systems: No CV, , eye, ENT system symptoms on review. Gait unsteady, transfers with Shyam lift. Mental Status Exam: The patient is reasonably oriented. Speech coherent. Abstraction fair. Computation impaired. Language function intact. Mood and affect remains somewhat dysphoric and anxious. No suicidal or homicidal ideatio n. Laboratory Data: Reviewed. Impression: Major depressive disorder, recurrent, rule out psychotic features. Anxiety disorder unspecified. Plan: Continue current psychotropics. He remains on Cymbalta 90 mg a day, trazodone p.r.n., Abilify 15 mg a day, Zyprexa p.r.n., Wellbutrin XL 150 mg a day, Lamictal 100 mg a day, Remeron 30 mg h.s. Adjust further as clinically indicated. Assessment: Vital Signs/I&O: Vital Signs Date Time Temp Pulse Resp B/P (MAP) Pulse Ox O2 Delivery O2 Flow Rate FiO2 07/30/21 06:08 97.8 96 22 122/79 (93) 99 2.0 07/30/21 03:27 Room Air I & O 07/29/21 07/29/21 07/30/21 15:00 23:00 07:00 Intake Total 720 ml 560 ml 0 ml Balance 720 ml 560 ml 0 ml Labs: Laboratory Tests Test 07/29/21 12:09 07/29/21 16:30 07/29/21 18:55 07/30/21 07:37 Glucose (Fingerstick) 181 mg/dL (70-99) H 164 mg/dL (70-99) H 176 mg/dL (70-99) H 119 mg/dL (70-99) H Current Medications: Meds: Laboratory Tests Test 07/29/21 12:09 07/29/21 16:30 07/29/21 18:55 07/30/21 07:37 Glucose (Fingerstick) 181 mg/dL 164 mg/dL 176 mg/dL 119 mg/dL Current Medications Medications (Trade) Dose Ordered Sig/Nicky Route PRN Reason Start Time Stop Time Status Last Admin Dose Admin Acetaminophen (Tylenol) 650 mg PRN Q6HRS PRN PO mild pain/temp >100.3 F 07/25/21 23:00 Aripiprazole (Abilify) 15 mg DAILY PO 07/26/21 09:00 07/29/21 08:50 Aspirin (Aspirin Chewable) 81 mg DAILY PO 07/26/21 09:00 07/29/21 08:50 Bupropion HCl (Wellbutrin Xl) 150 mg DAILY PO 07/26/21 09:00 07/29/21 08:50 Clopidogrel Bisulfate (Plavix) 75 mg DAILY PO 07/26/21 09:00 07/29/21 08:50 Dextrose (Dextrose 50%-Water Syringe) 12.5 gm PRN Q15MIN PRN IV hypoglycemia 07/25/21 23:00 Docusate Sodium (Colace) 100 mg BID PO 07/26/21 09:00 07/29/21 19:27 Duloxetine HCl (Cymbalta) 30 mg AFTRNOON PO 07/26/21 13:00 07/29/21 12:48 Duloxetine HCl (Cymbalta) 60 mg DAILY PO 07/26/21 09:00 07/29/21 08:50 Furosemide (Lasix) 40 mg DAILY PO 07/26/21 09:00 07/29/21 08:50 Lamotrigine (LaMICtal) 100 mg QHS PO 07/26/21 21:00 07/29/21 19:28 Linagliptin (Tradjenta) 5 mg DAILY PO 07/26/21 09:00 07/29/21 08:50 Al Hydroxide/Mg Hydroxide (Mylanta Plus Xs) 15 ml PRN AFTMEALHC PRN PO DYSPEPSIA 07/25/21 23:00 Magnesium Citrate (Citroma) 296 ml PRN 1X PRN PO 2nd choice constipation 07/25/21 23:00 Mirtazapine (Remeron) 30 mg HS PO 07/26/21 21:00 07/29/21 19:27 Neomycin/ Polymyxin/ Bacitracin (Triple Antibiotic Ointment) 1 pkt BID TP 07/26/21 09:00 07/29/21 19:28 Nystatin (Nystop) 1 neelima BID TP 07/26/21 09:00 07/29/21 19:28 Olanzapine (ZyPREXA ZYDIS) 2.5 mg PRN Q2HRS PRN PO psychosis/agitation 07/25/21 23:00 07/30/21 03:00 Oxycodone/ Acetaminophen (Percocet 10/325) 1 tab PRN Q6HRS PRN PO PAIN 07/25/21 23:00 07/30/21 03:00 Potassium Chloride (Klor-Con) 30 meq DAILYWBKFT PO 07/26/21 08:00 07/29/21 08:50 Trazodone HCl (Desyrel) 50 mg PRN QHS PRN PO INSOMNIA 07/25/21 23:00 07/29/21 19:50 Trazodone HCl (Desyrel) 100 mg HS PO 07/26/21 21:00 07/29/21 19:28 Trolamine Salicylate (Myoplex) 1 neelima PRN QID PRN TP muscle pain 07/25/21 23:00 Cancel Atorvastatin Calcium (Lipitor) 80 mg QHS PO 07/26/21 21:00 07/29/21 19:27 Carvedilol (Coreg) 37.5 mg BIDWMEALS PO 07/26/21 08:00 07/29/21 17:10 Non-Formulary Medication (Insulin Lispro (Humalog)) SLIDING SCALE TIDWMEALS SQ 07/26/21 08:00 UNV Magnesium Hydroxide (Milk Of Magnesia) 2,400 mg PRN QHS PRN PO 1st choice constipation 07/25/21 23:15 07/29/21 08:49 Multivitamins/ Calcium (Thera-M Plus) 1 tab DAILY PO 07/26/21 09:00 07/29/21 08:50 Insulin Human Lispro (HumaLOG) 0-5 UNITS TIDWMEALS SQ 07/26/21 08:00 Multi-Ingredient Ointment (Analgesic [place]) 1 neelima PRN QID PRN TP MUSCLE PAIN 07/26/21 09:15 I have reviewed the current psychotropics carefully including drug interactions. Risk benefit ratio favors no change other than as noted in my dictated progress note. Diagnosis: Problems: (1) Impulse control disorder, unspecified (2) Anxiety disorder, unspecified (3) Major depressive disorder, recurrent (4) COVID-19 ESE LEVI MD Jul 30, 2021 08:26
[2021-07-30] MEDS: POTASSIUM CHLORIDE 10 MEQ TABLET.ER. PO SCH (08:30)
[2021-07-30] MEDS: DULoxetine HCL 60 MG CAPSULE.DR PO SCH (08:30)
[2021-07-30] MEDS: buPROPion XL 150 MG TAB.ER.24H PO SCH (08:30)
[2021-07-30] MEDS: MULTIVITAMIN with MINERAL TABLET. PO SCH (08:30)
[2021-07-30] MEDS: CLOPIDOGREL BISULFATE 75 MG TABLET PO SCH (08:31)
[2021-07-30] MEDS: DOCUSATE SODIUM 100 MG CAPSULE PO SCH ×2 (08:31→20:52)
[2021-07-30] MEDS: ASPIRIN CHEWABLE 81 MG TABLET. PO SCH (08:31)
[2021-07-30] MEDS: FUROSEMIDE 40 MG TABLET PO SCH (08:31)
[2021-07-30] MEDS: CARVEDILOL 12.5 MG TABLET PO SCH ×2 (08:31→16:55)
[2021-07-30] MEDS: LINAGLIPTIN 5 MG TABLET PO SCH (08:31)
[2021-07-30] MEDS: NYSTATIN TOPICAL POWDER 15GM BOTTLE. TP SCH ×2 (08:32→20:57)
[2021-07-30] MEDS: NEOMY/BACITR/POLYMYXIN OINT PACKET. TP SCH ×2 (08:32→20:58)
[2021-07-30] MEDS: ARIPiprazole 15 MG TABLET PO SCH (08:37)
--- NOTE | 2021-07-30 10:18 | NUR ---
Nursing note: Pt in bed eating breakfast at time of AM med pass and assessment. He is med compliant and cooperative. When asked about all his scratches and wounds on his legs, pt responded "I toss and turn in my sleep and I just stick to this mattress." Pt is noted to have a sheet on top of the mattress, so he is not directly on the mattress. Pt has no concerns at this time. Will continue monitor.
[2021-07-30 11:43] VITALS: BP 130/80
[2021-07-30] MEDS: DULoxetine HCL 30 MG CAPSULE.DR PO SCH (13:39)
[2021-07-30 15:19] VITALS: BP 133/86
[2021-07-30 18:28] VITALS: BP 133/86
[2021-07-30] MEDS: MIRTAZAPINE 30 MG TABLET PO SCH (20:52)
[2021-07-30] MEDS: traZODone 100 MG TABLET. PO SCH (20:52)
[2021-07-30] MEDS: ATORVASTATIN CALCIUM 20 MG TABLET PO SCH (20:52)
[2021-07-30] MEDS: lamoTRIgine 100 MG TABLET. PO SCH (20:57)
[2021-07-30 21:10] VITALS: BP 136/101
--- NOTE | 2021-07-30 21:26 | PDOC ---
Exam Note: Josef Note: Please also refer to the separate dictated note~for this date of service dictated separately.~Patient seen individually. Discussed the patient with Nursing staff reviewed the chart.~Reviewed interim history and current functioning. Reviewed vital signs,~Labs/ Radiology~and current medications noted below. Continue current treatment with the changes noted in the dictated addendum note Assessment: Vital Signs/I&O: Vital Signs Date Time Temp Pulse Resp B/P (MAP) Pulse Ox O2 Delivery O2 Flow Rate FiO2 07/30/21 21:10 97.8 84 22 136/101 (113) 95 Nasal Cannula 2.0 I & O 07/29/21 07/29/21 07/30/21 15:00 23:00 07:00 Intake Total 720 ml 560 ml 0 ml Balance 720 ml 560 ml 0 ml Labs: Laboratory Tests Test 07/30/21 07:37 07/30/21 12:08 07/30/21 16:42 07/30/21 19:13 Glucose (Fingerstick) 119 mg/dL (70-99) H 159 mg/dL (70-99) H 170 mg/dL (70-99) H 147 mg/dL (70-99) H Current Medications: Meds: Laboratory Tests Test 07/30/21 07:37 07/30/21 12:08 07/30/21 16:42 07/30/21 19:13 Glucose (Fingerstick) 119 mg/dL 159 mg/dL 170 mg/dL 147 mg/dL Current Medications Medications (Trade) Dose Ordered Sig/Nicky Route PRN Reason Start Time Stop Time Status Last Admin Dose Admin Acetaminophen (Tylenol) 650 mg PRN Q6HRS PRN PO mild pain/temp >100.3 F 07/25/21 23:00 Aripiprazole (Abilify) 15 mg DAILY PO 07/26/21 09:00 07/30/21 18:37 DC 07/30/21 08:37 Aspirin (Aspirin Chewable) 81 mg DAILY PO 07/26/21 09:00 07/30/21 08:31 Bupropion HCl (Wellbutrin Xl) 150 mg DAILY PO 07/26/21 09:00 07/30/21 08:30 Clopidogrel Bisulfate (Plavix) 75 mg DAILY PO 07/26/21 09:00 07/30/21 08:31 Dextrose (Dextrose 50%-Water Syringe) 12.5 gm PRN Q15MIN PRN IV hypoglycemia 07/25/21 23:00 Docusate Sodium (Colace) 100 mg BID PO 07/26/21 09:00 07/30/21 20:52 Duloxetine HCl (Cymbalta) 30 mg AFTRNOON PO 07/26/21 13:00 07/30/21 13:39 Duloxetine HCl (Cymbalta) 60 mg DAILY PO 07/26/21 09:00 07/30/21 08:30 Furosemide (Lasix) 40 mg DAILY PO 07/26/21 09:00 07/30/21 08:31 Lamotrigine (LaMICtal) 100 mg QHS PO 07/26/21 21:00 07/30/21 18:37 DC 07/29/21 19:28 Linagliptin (Tradjenta) 5 mg DAILY PO 07/26/21 09:00 07/30/21 08:31 Al Hydroxide/Mg Hydroxide (Mylanta Plus Xs) 15 ml PRN AFTMEALHC PRN PO DYSPEPSIA 07/25/21 23:00 Magnesium Citrate (Citroma) 296 ml PRN 1X PRN PO 2nd choice constipation 07/25/21 23:00 Mirtazapine (Remeron) 30 mg HS PO 07/26/21 21:00 07/30/21 20:52 Neomycin/ Polymyxin/ Bacitracin (Triple Antibiotic Ointment) 1 pkt BID TP 07/26/21 09:00 07/30/21 20:58 Nystatin (Nystop) 1 neelima BID TP 07/26/21 09:00 07/30/21 20:57 Olanzapine (ZyPREXA ZYDIS) 2.5 mg PRN Q2HRS PRN PO psychosis/agitation 07/25/21 23:00 07/30/21 03:00 Oxycodone/ Acetaminophen (Percocet 10/325) 1 tab PRN Q6HRS PRN PO PAIN 07/25/21 23:00 07/30/21 03:00 Potassium Chloride (Klor-Con) 30 meq DAILYWBKFT PO 07/26/21 08:00 07/30/21 08:30 Trazodone HCl (Desyrel) 50 mg PRN QHS PRN PO INSOMNIA 07/25/21 23:00 07/29/21 19:50 Trazodone HCl (Desyrel) 100 mg HS PO 07/26/21 21:00 07/30/21 20:52 Trolamine Salicylate (Myoplex) 1 neelima PRN QID PRN TP muscle pain 07/25/21 23:00 Cancel Atorvastatin Calcium (Lipitor) 80 mg QHS PO 07/26/21 21:00 07/30/21 20:52 Carvedilol (Coreg) 37.5 mg BIDWMEALS PO 07/26/21 08:00 07/30/21 16:55 Non-Formulary Medication (Insulin Lispro (Humalog)) SLIDING SCALE TIDWMEALS SQ 07/26/21 08:00 UNV Magnesium Hydroxide (Milk Of Magnesia) 2,400 mg PRN QHS PRN PO 1st choice constipation 07/25/21 23:15 07/29/21 08:49 Multivitamins/ Calcium (Thera-M Plus) 1 tab DAILY PO 07/26/21 09:00 07/30/21 08:30 Insulin Human Lispro (HumaLOG) 0-5 UNITS TIDWMEALS SQ 07/26/21 08:00 Multi-Ingredient Ointment (Analgesic [place]) 1 neelima PRN QID PRN TP MUSCLE PAIN 07/26/21 09:15 Aripiprazole (Abilify) 10 mg DAILY PO 07/31/21 09:00 Lamotrigine (LaMICtal) 150 mg QHS PO 07/30/21 21:00 07/30/21 20:57 Current Medications Medications (Trade) Dose Ordered Sig/Nicky Route PRN Reason Start Time Stop Time Status Last Admin Dose Admin Lamotrigine (LaMICtal) 150 mg QHS PO 07/30/21 21:00 07/30/21 20:57 I have reviewed the current psychotropics carefully including drug interactions. Risk benefit ratio favors no change other than as noted in my dictated progress note. Diagnosis: Problems: (1) Impulse control disorder, unspecified (2) Anxiety disorder, unspecified (3) Major depressive disorder, recurrent (4) COVID-19 ESE LEVI MD Jul 30, 2021 21:26
--- NOTE | 2021-07-30 21:40 | PN ---
DATE: 07/30/2021 ATTENDING PHYSICIAN: Dr. Gandhi. SUBJECTIVE: Alert, no new complaints OBJECTIVE FINDINGS: VITAL SIGNS: The patient is afebrile. Vital signs were stable. His oxygen saturations are at baseline. HEENT: Head is without trauma. Pupils are reactive. Sclerae nonicteric. Oropharynx clear. NECK: Supple. LUNGS: Good breath sounds. CARDIOVASCULAR: Showed distant heart tones. No gallops. ABDOMEN: Obese, protuberant. No organomegaly. Bowel sounds are normoactive. EXTREMITIES: Show trace edema. NEUROLOGIC: Function focally intact. ASSESSMENT: 1. A 66-year-old gentleman asymptomatic, COVID exposure. He has been fully vaccinated. 2. Underlying dementia with behavioral issues. 3. Morbid obesity. 4. Degenerative arthritis. PLAN: 1. Continue home medications. 2. Diet as tolerated. 3. Quarantine for COVID exposure. 4. He will return to the detention when his COVID exposure quarantine is complete. MELCHOR DR: Francisco TID: [id number]
[2021-07-31] MEDS: oxyCODONE/APAP 10/325 1 TAB TABLET PO PRN (00:29)
--- NOTE | 2021-07-31 05:11 | NUR ---
Nursing Note The patient was located in his bed for cares and assessments. The patient was cooperative and assisted staff when providing HS cares. The patient was medication compliant and took them whole. The patient requested PRN Oxycodone for back pain per PRN order. Medication was effective and patient slept after. The patient is currently sleeping.
[2021-07-31 06:00] VITALS: BP 141/93
[2021-07-31] MEDS: LINAGLIPTIN 5 MG TABLET PO SCH (07:58)
[2021-07-31] MEDS: MULTIVITAMIN with MINERAL TABLET. PO SCH (07:58)
[2021-07-31] MEDS: POTASSIUM CHLORIDE 10 MEQ TABLET.ER. PO SCH (07:58)
[2021-07-31] MEDS: ARIPiprazole 10 MG TABLET PO SCH (07:58)
[2021-07-31] MEDS: CARVEDILOL 12.5 MG TABLET PO SCH ×2 (07:58→17:34)
[2021-07-31] MEDS: DOCUSATE SODIUM 100 MG CAPSULE PO SCH ×2 (07:58→20:03)
[2021-07-31] MEDS: DULoxetine HCL 60 MG CAPSULE.DR PO SCH (07:59)
[2021-07-31] MEDS: NEOMY/BACITR/POLYMYXIN OINT PACKET. TP SCH ×2 (07:59→20:04)
[2021-07-31] MEDS: ASPIRIN CHEWABLE 81 MG TABLET. PO SCH (07:59)
[2021-07-31] MEDS: FUROSEMIDE 40 MG TABLET PO SCH (07:59)
[2021-07-31] MEDS: buPROPion XL 150 MG TAB.ER.24H PO SCH (07:59)
[2021-07-31] MEDS: CLOPIDOGREL BISULFATE 75 MG TABLET PO SCH (07:59)
[2021-07-31] MEDS: NYSTATIN TOPICAL POWDER 15GM BOTTLE. TP SCH ×2 (08:00→20:14)
[2021-07-31] MEDS: INSULIN LISPRO 300 UNITS/3 ML VIAL. SQ SCH ×3 (08:00→17:00)
[2021-07-31 10:15] VITALS: BP 101/50
--- NOTE | 2021-07-31 10:33 | NUR ---
Nursing note: Pt has been pleasant, med compliant and cooperative this shift. He has no complaints of pain/concerns. All wounds were cleansed and re-dressed. Pt tolerated well. He is currently resting quietly in bed. Will continue to monitor.
[2021-07-31] MEDS: DULoxetine HCL 30 MG CAPSULE.DR PO SCH (12:56)
[2021-07-31 14:31] VITALS: BP 119/76
[2021-07-31] MEDS: lamoTRIgine 100 MG TABLET. PO SCH (20:03)
[2021-07-31] MEDS: traZODone 100 MG TABLET. PO SCH (20:03)
[2021-07-31] MEDS: MIRTAZAPINE 30 MG TABLET PO SCH (20:04)
[2021-07-31] MEDS: ATORVASTATIN CALCIUM 20 MG TABLET PO SCH (20:04)
--- NOTE | 2021-07-31 21:50 | PDOC ---
Exam Note: Josef Note: Please also refer to the separate dictated note~for this date of service dictated separately.~Patient seen individually. Discussed the patient with Nursing staff reviewed the chart.~Reviewed interim history and current functioning. Reviewed vital signs,~Labs/ Radiology~and current medications noted below. Continue current treatment with the changes noted in the dictated addendum note Assessment: Vital Signs/I&O: Vital Signs Date Time Temp Pulse Resp B/P (MAP) Pulse Ox O2 Delivery O2 Flow Rate FiO2 07/31/21 17:34 100 119/76 07/31/21 14:31 98.0 20 96 Room Air 07/31/21 06:00 2.0 I & O 07/30/21 07/30/21 07/31/21 15:00 23:00 07:00 Intake Total 480 ml 240 ml 50 ml Balance 480 ml 240 ml 50 ml Labs: Laboratory Tests Test 07/31/21 07:45 07/31/21 12:03 07/31/21 17:02 07/31/21 18:59 Glucose (Fingerstick) 144 mg/dL (70-99) H 172 mg/dL (70-99) H 172 mg/dL (70-99) H 211 mg/dL (70-99) H Current Medications: Meds: Laboratory Tests Test 07/31/21 07:45 07/31/21 12:03 07/31/21 17:02 07/31/21 18:59 Glucose (Fingerstick) 144 mg/dL 172 mg/dL 172 mg/dL 211 mg/dL Current Medications Medications (Trade) Dose Ordered Sig/Nicky Route PRN Reason Start Time Stop Time Status Last Admin Dose Admin Acetaminophen (Tylenol) 650 mg PRN Q6HRS PRN PO mild pain/temp >100.3 F 07/25/21 23:00 Aripiprazole (Abilify) 15 mg DAILY PO 07/26/21 09:00 07/30/21 18:37 DC 07/30/21 08:37 Aspirin (Aspirin Chewable) 81 mg DAILY PO 07/26/21 09:00 07/31/21 07:59 Bupropion HCl (Wellbutrin Xl) 150 mg DAILY PO 07/26/21 09:00 07/31/21 07:59 Clopidogrel Bisulfate (Plavix) 75 mg DAILY PO 07/26/21 09:00 07/31/21 07:59 Dextrose (Dextrose 50%-Water Syringe) 12.5 gm PRN Q15MIN PRN IV hypoglycemia 07/25/21 23:00 Docusate Sodium (Colace) 100 mg BID PO 07/26/21 09:00 07/31/21 20:03 Duloxetine HCl (Cymbalta) 30 mg AFTRNOON PO 07/26/21 13:00 07/31/21 12:56 Duloxetine HCl (Cymbalta) 60 mg DAILY PO 07/26/21 09:00 07/31/21 07:59 Furosemide (Lasix) 40 mg DAILY PO 07/26/21 09:00 07/31/21 07:59 Lamotrigine (LaMICtal) 100 mg QHS PO 07/26/21 21:00 07/30/21 18:37 DC 07/29/21 19:28 Linagliptin (Tradjenta) 5 mg DAILY PO 07/26/21 09:00 07/31/21 07:58 Al Hydroxide/Mg Hydroxide (Mylanta Plus Xs) 15 ml PRN AFTMEALHC PRN PO DYSPEPSIA 07/25/21 23:00 Magnesium Citrate (Citroma) 296 ml PRN 1X PRN PO 2nd choice constipation 07/25/21 23:00 Mirtazapine (Remeron) 30 mg HS PO 07/26/21 21:00 07/31/21 20:04 Neomycin/ Polymyxin/ Bacitracin (Triple Antibiotic Ointment) 1 pkt BID TP 07/26/21 09:00 07/31/21 20:04 Nystatin (Nystop) 1 neelima BID TP 07/26/21 09:00 07/31/21 20:14 Olanzapine (ZyPREXA ZYDIS) 2.5 mg PRN Q2HRS PRN PO psychosis/agitation 07/25/21 23:00 07/30/21 03:00 Oxycodone/ Acetaminophen (Percocet 10/325) 1 tab PRN Q6HRS PRN PO PAIN 07/25/21 23:00 07/31/21 00:29 Potassium Chloride (Klor-Con) 30 meq DAILYWBKFT PO 07/26/21 08:00 07/31/21 07:58 Trazodone HCl (Desyrel) 50 mg PRN QHS PRN PO INSOMNIA 07/25/21 23:00 07/29/21 19:50 Trazodone HCl (Desyrel) 100 mg HS PO 07/26/21 21:00 07/31/21 20:03 Trolamine Salicylate (Myoplex) 1 neelima PRN QID PRN TP muscle pain 07/25/21 23:00 Cancel Atorvastatin Calcium (Lipitor) 80 mg QHS PO 07/26/21 21:00 07/31/21 20:04 Carvedilol (Coreg) 37.5 mg BIDWMEALS PO 07/26/21 08:00 07/31/21 17:34 Non-Formulary Medication (Insulin Lispro (Humalog)) SLIDING SCALE TIDWMEALS SQ 07/26/21 08:00 UNV Magnesium Hydroxide (Milk Of Magnesia) 2,400 mg PRN QHS PRN PO 1st choice constipation 07/25/21 23:15 07/29/21 08:49 Multivitamins/ Calcium (Thera-M Plus) 1 tab DAILY PO 07/26/21 09:00 07/31/21 07:58 Insulin Human Lispro (HumaLOG) 0-5 UNITS TIDWMEALS SQ 07/26/21 08:00 Multi-Ingredient Ointment (Analgesic [place]) 1 neelima PRN QID PRN TP MUSCLE PAIN 07/26/21 09:15 Aripiprazole (Abilify) 10 mg DAILY PO 07/31/21 09:00 07/31/21 07:58 Lamotrigine (LaMICtal) 150 mg QHS PO 07/30/21 21:00 07/31/21 20:03 Current Medications Medications (Trade) Dose Ordered Sig/Nicky Route PRN Reason Start Time Stop Time Status Last Admin Dose Admin Aripiprazole (Abilify) 10 mg DAILY PO 07/31/21 09:00 07/31/21 07:58 I have reviewed the current psychotropics carefully including drug interactions. Risk benefit ratio favors no change other than as noted in my dictated progress note. Diagnosis: Problems: (1) Impulse control disorder, unspecified (2) Anxiety disorder, unspecified (3) Major depressive disorder, recurrent (4) COVID-19 ESE LEVI MD Jul 31, 2021 21:50
[2021-07-31] MEDS: traZODone 50 MG TABLET. PO PRN (22:59)
--- NOTE | 2021-07-31 23:00 | NUR ---
Patient is very restless and has been adjusting his pillow, moving his blankets, kicking his legs about and generally thrashing around for at least an hour. PRN trazodone given for insomnia and PRN zyprexa given for restlessness/agitation. Will continue to monitor.
--- NOTE | 2021-07-31 23:53 | PN ---
DATE: 07/31/2021 ATTENDING PHYSICIAN: Dr. Hendrickson. SUBJECTIVE: The patient is a little bit teary eye, little anxious. He otherwise has no complaints. OBJECTIVE FINDINGS: VITAL SIGNS: Blood pressure this morning is 101/50 mmHg, pulse regular. He is afebrile. Oxygen saturation 95% on room air. HEENT: Head is without trauma. Pupils are reactive. Sclerae nonicteric. Oropharynx is clear. NECK: Supple, no bruits. LUNGS: Good breath sounds. CARDIOVASCULAR: Regular heart tones. ABDOMEN: Soft. EXTREMITIES: Showed excoriations and various degrees of healing. No active draining wounds. ASSESSMENT: 1. A 66-year-old gentleman with asymptomatic COVID exposure. He has been fully vaccinated. 2. Underlying dementia with behavioral issues. 3. Depression with anxiety. 4. Morbid obesity. 5. Chronic excoriation of lower extremities. PLAN: 1. Home meds were continued. 2. No antibiotics necessary at this time. 3. Quarantine precautions. 4. Tentative discharge plans for later next week. ELISA DR: Francisco TID: [id number] CC: ESE LEVI MD
--- NOTE | 2021-08-01 03:45 | NUR ---
Patient continues to be awake. He pulled his brief aside and urinated in the bed and on the floor. Complete bed change done. Patient is pushing buttons on the bed controls and has made an alarm sound. The adjustment controls are locked out to prevent him from raising the bed and lowering his head. Patient has coughed a few times, no phlegm produced. He remains attention seeking and attempts to be manipulative with staff by saying things about day shift staff to manager learning. At one point patient was hitting himself in the head and then denied it when asked.
[2021-08-01 05:20] VITALS: BP 133/78
--- NOTE | 2021-08-01 07:48 | PDOC ---
Exam Note: Josef Note: This note is a late entry for 07/30/2021 covers elements not covered in my initial note. Subjective: The patient seen on telehealth rounds on 07/30/2021 with Susi MODI, discussed and reviewed the chart. Reviewed his interim history and current functioning. Overall the patient remains somewhat depressed, ate no breakfast but did eat lunch and supper. Review of Systems: No CV, , eye, ENT system symptoms on review. Ambulation impaired. He complains of chronic pain. He is still being scratching on his lower extremity lesions making it hard to heal for them. Mental Status Exam: The patient is reasonably oriented. Speech coherent. Abstraction fair. Computation impaired. Language function intact. Mood and affect still depressed. Laboratory Data: Reviewed. Impression: Major depressive disorder, recurrent, rule out psychotic features. Anxiety disorder unspecified. Plan: Continue current psychotropics. Abilify 15 mg a day could be causing some pseudo-parkinsonian symptoms for him and we will reduce to 10 mg a day. He still has some mood swings. Lamictal 100 mg a day. We will increase to 150 mg a day. Maintain Remeron 30 mg h.s., Wellbutrin XL 150 mg a day, Cymbalta 90 mg a day, trazodone 100 mg h.s. Adjust further as clinically indicated. Assessment: Vital Signs/I&O: Vital Signs Date Time Temp Pulse Resp B/P (MAP) Pulse Ox O2 Delivery O2 Flow Rate FiO2 08/01/21 05:23 Nasal Cannula 08/01/21 05:20 95.8 110 22 133/78 (96) 98 2.0 I & O 07/31/21 07/31/21 08/01/21 15:00 23:00 07:00 Intake Total 600 ml 440 ml Balance 600 ml 440 ml Labs: Laboratory Tests Test 07/31/21 12:03 07/31/21 17:02 07/31/21 18:59 Glucose (Fingerstick) 172 mg/dL (70-99) H 172 mg/dL (70-99) H 211 mg/dL (70-99) H Current Medications: Meds: Laboratory Tests Test 07/31/21 12:03 07/31/21 17:02 07/31/21 18:59 Glucose (Fingerstick) 172 mg/dL 172 mg/dL 211 mg/dL Current Medications Medications (Trade) Dose Ordered Sig/Nicky Route PRN Reason Start Time Stop Time Status Last Admin Dose Admin Acetaminophen (Tylenol) 650 mg PRN Q6HRS PRN PO mild pain/temp >100.3 F 07/25/21 23:00 Aripiprazole (Abilify) 15 mg DAILY PO 07/26/21 09:00 07/30/21 18:37 DC 07/30/21 08:37 Aspirin (Aspirin Chewable) 81 mg DAILY PO 07/26/21 09:00 07/31/21 07:59 Bupropion HCl (Wellbutrin Xl) 150 mg DAILY PO 07/26/21 09:00 07/31/21 07:59 Clopidogrel Bisulfate (Plavix) 75 mg DAILY PO 07/26/21 09:00 07/31/21 07:59 Dextrose (Dextrose 50%-Water Syringe) 12.5 gm PRN Q15MIN PRN IV hypoglycemia 07/25/21 23:00 Docusate Sodium (Colace) 100 mg BID PO 07/26/21 09:00 07/31/21 20:03 Duloxetine HCl (Cymbalta) 30 mg AFTRNOON PO 07/26/21 13:00 07/31/21 12:56 Duloxetine HCl (Cymbalta) 60 mg DAILY PO 07/26/21 09:00 07/31/21 07:59 Furosemide (Lasix) 40 mg DAILY PO 07/26/21 09:00 07/31/21 07:59 Lamotrigine (LaMICtal) 100 mg QHS PO 07/26/21 21:00 07/30/21 18:37 DC 07/29/21 19:28 Linagliptin (Tradjenta) 5 mg DAILY PO 07/26/21 09:00 07/31/21 07:58 Al Hydroxide/Mg Hydroxide (Mylanta Plus Xs) 15 ml PRN AFTMEALHC PRN PO DYSPEPSIA 07/25/21 23:00 Magnesium Citrate (Citroma) 296 ml PRN 1X PRN PO 2nd choice constipation 07/25/21 23:00 Mirtazapine (Remeron) 30 mg HS PO 07/26/21 21:00 07/31/21 20:04 Neomycin/ Polymyxin/ Bacitracin (Triple Antibiotic Ointment) 1 pkt BID TP 07/26/21 09:00 07/31/21 20:04 Nystatin (Nystop) 1 neelima BID TP 07/26/21 09:00 07/31/21 20:14 Olanzapine (ZyPREXA ZYDIS) 2.5 mg PRN Q2HRS PRN PO psychosis/agitation 07/25/21 23:00 07/31/21 22:59 Oxycodone/ Acetaminophen (Percocet 10/325) 1 tab PRN Q6HRS PRN PO PAIN 07/25/21 23:00 07/31/21 00:29 Potassium Chloride (Klor-Con) 30 meq DAILYWBKFT PO 07/26/21 08:00 07/31/21 07:58 Trazodone HCl (Desyrel) 50 mg PRN QHS PRN PO INSOMNIA 07/25/21 23:00 07/31/21 22:59 Trazodone HCl (Desyrel) 100 mg HS PO 07/26/21 21:00 07/31/21 20:03 Trolamine Salicylate (Myoplex) 1 neelima PRN QID PRN TP muscle pain 07/25/21 23:00 Cancel Atorvastatin Calcium (Lipitor) 80 mg QHS PO 07/26/21 21:00 07/31/21 20:04 Carvedilol (Coreg) 37.5 mg BIDWMEALS PO 07/26/21 08:00 07/31/21 17:34 Non-Formulary Medication (Insulin Lispro (Humalog)) SLIDING SCALE TIDWMEALS SQ 07/26/21 08:00 UNV Magnesium Hydroxide (Milk Of Magnesia) 2,400 mg PRN QHS PRN PO 1st choice constipation 07/25/21 23:15 07/29/21 08:49 Multivitamins/ Calcium (Thera-M Plus) 1 tab DAILY PO 07/26/21 09:00 07/31/21 07:58 Insulin Human Lispro (HumaLOG) 0-5 UNITS TIDWMEALS SQ 07/26/21 08:00 Multi-Ingredient Ointment (Analgesic [place]) 1 neelima PRN QID PRN TP MUSCLE PAIN 07/26/21 09:15 Aripiprazole (Abilify) 10 mg DAILY PO 07/31/21 09:00 07/31/21 07:58 Lamotrigine (LaMICtal) 150 mg QHS PO 07/30/21 21:00 07/31/21 20:03 Current Medications Medications (Trade) Dose Ordered Sig/Nicky Route PRN Reason Start Time Stop Time Status Last Admin Dose Admin Aripiprazole (Abilify) 10 mg DAILY PO 07/31/21 09:00 07/31/21 07:58 I have reviewed the current psychotropics carefully including drug interactions. Risk benefit ratio favors no change other than as noted in my dictated progress note. Diagnosis: Problems: (1) Impulse control disorder, unspecified (2) Anxiety disorder, unspecified (3) Major depressive disorder, recurrent (4) COVID-19 ESE LEVI MD Aug 01, 2021 07:48
[2021-08-01] MEDS: INSULIN LISPRO 300 UNITS/3 ML VIAL. SQ SCH ×3 (08:00→17:00)
--- NOTE | 2021-08-01 08:05 | PDOC ---
Exam Note: Josef Note: This note is a late entry for 07/31/2021 covers elements not covered in my initial note. Subjective: The patient was reviewed with nursing staff on 07/31/2021, discussed and reviewed the chart. Reviewed his interim history and current functioning. The patient has been cooperative at times, attention seeking, does complain of chronic pain. Review of Systems: He has difficulty with ambulation, transfers with Shyam lift. No CV, , eye, ENT system symptoms on review. Mental Status Exam: The patient is reasonably oriented per nursing report. Speech coherent. Abstraction fair. Computation impaired. Language function intact. Mood and affect somewhat dysphoric and anxious. Laboratory Data: Reviewed. Impression: Major depressive disorder, recurrent, rule out psychotic features. Anxiety disorder unspecified. Plan: Continue current psychotropics. Assessment: Vital Signs/I&O: Vital Signs Date Time Temp Pulse Resp B/P (MAP) Pulse Ox O2 Delivery O2 Flow Rate FiO2 08/01/21 05:23 Nasal Cannula 08/01/21 05:20 95.8 110 22 133/78 (96) 98 2.0 I & O 07/31/21 07/31/21 08/01/21 15:00 23:00 07:00 Intake Total 600 ml 440 ml Balance 600 ml 440 ml Labs: Laboratory Tests Test 07/31/21 12:03 07/31/21 17:02 07/31/21 18:59 Glucose (Fingerstick) 172 mg/dL (70-99) H 172 mg/dL (70-99) H 211 mg/dL (70-99) H Current Medications: Meds: Laboratory Tests Test 07/31/21 12:03 07/31/21 17:02 07/31/21 18:59 Glucose (Fingerstick) 172 mg/dL 172 mg/dL 211 mg/dL Current Medications Medications (Trade) Dose Ordered Sig/Nicky Route PRN Reason Start Time Stop Time Status Last Admin Dose Admin Acetaminophen (Tylenol) 650 mg PRN Q6HRS PRN PO mild pain/temp >100.3 F 07/25/21 23:00 Aripiprazole (Abilify) 15 mg DAILY PO 07/26/21 09:00 07/30/21 18:37 DC 07/30/21 08:37 Aspirin (Aspirin Chewable) 81 mg DAILY PO 07/26/21 09:00 07/31/21 07:59 Bupropion HCl (Wellbutrin Xl) 150 mg DAILY PO 07/26/21 09:00 07/31/21 07:59 Clopidogrel Bisulfate (Plavix) 75 mg DAILY PO 07/26/21 09:00 07/31/21 07:59 Dextrose (Dextrose 50%-Water Syringe) 12.5 gm PRN Q15MIN PRN IV hypoglycemia 07/25/21 23:00 Docusate Sodium (Colace) 100 mg BID PO 07/26/21 09:00 07/31/21 20:03 Duloxetine HCl (Cymbalta) 30 mg AFTRNOON PO 07/26/21 13:00 07/31/21 12:56 Duloxetine HCl (Cymbalta) 60 mg DAILY PO 07/26/21 09:00 07/31/21 07:59 Furosemide (Lasix) 40 mg DAILY PO 07/26/21 09:00 07/31/21 07:59 Lamotrigine (LaMICtal) 100 mg QHS PO 07/26/21 21:00 07/30/21 18:37 DC 07/29/21 19:28 Linagliptin (Tradjenta) 5 mg DAILY PO 07/26/21 09:00 07/31/21 07:58 Al Hydroxide/Mg Hydroxide (Mylanta Plus Xs) 15 ml PRN AFTMEALHC PRN PO DYSPEPSIA 07/25/21 23:00 Magnesium Citrate (Citroma) 296 ml PRN 1X PRN PO 2nd choice constipation 07/25/21 23:00 Mirtazapine (Remeron) 30 mg HS PO 07/26/21 21:00 07/31/21 20:04 Neomycin/ Polymyxin/ Bacitracin (Triple Antibiotic Ointment) 1 pkt BID TP 07/26/21 09:00 07/31/21 20:04 Nystatin (Nystop) 1 neelima BID TP 07/26/21 09:00 07/31/21 20:14 Olanzapine (ZyPREXA ZYDIS) 2.5 mg PRN Q2HRS PRN PO psychosis/agitation 07/25/21 23:00 07/31/21 22:59 Oxycodone/ Acetaminophen (Percocet 10/325) 1 tab PRN Q6HRS PRN PO PAIN 07/25/21 23:00 07/31/21 00:29 Potassium Chloride (Klor-Con) 30 meq DAILYWBKFT PO 07/26/21 08:00 07/31/21 07:58 Trazodone HCl (Desyrel) 50 mg PRN QHS PRN PO INSOMNIA 07/25/21 23:00 07/31/21 22:59 Trazodone HCl (Desyrel) 100 mg HS PO 07/26/21 21:00 07/31/21 20:03 Trolamine Salicylate (Myoplex) 1 neelima PRN QID PRN TP muscle pain 07/25/21 23:00 Cancel Atorvastatin Calcium (Lipitor) 80 mg QHS PO 07/26/21 21:00 07/31/21 20:04 Carvedilol (Coreg) 37.5 mg BIDWMEALS PO 07/26/21 08:00 07/31/21 17:34 Non-Formulary Medication (Insulin Lispro (Humalog)) SLIDING SCALE TIDWMEALS SQ 07/26/21 08:00 UNV Magnesium Hydroxide (Milk Of Magnesia) 2,400 mg PRN QHS PRN PO 1st choice constipation 07/25/21 23:15 07/29/21 08:49 Multivitamins/ Calcium (Thera-M Plus) 1 tab DAILY PO 07/26/21 09:00 07/31/21 07:58 Insulin Human Lispro (HumaLOG) 0-5 UNITS TIDWMEALS SQ 07/26/21 08:00 Multi-Ingredient Ointment (Analgesic [place]) 1 neelima PRN QID PRN TP MUSCLE PAIN 07/26/21 09:15 Aripiprazole (Abilify) 10 mg DAILY PO 07/31/21 09:00 07/31/21 07:58 Lamotrigine (LaMICtal) 150 mg QHS PO 07/30/21 21:00 07/31/21 20:03 Current Medications Medications (Trade) Dose Ordered Sig/Nicky Route PRN Reason Start Time Stop Time Status Last Admin Dose Admin Aripiprazole (Abilify) 10 mg DAILY PO 07/31/21 09:00 07/31/21 07:58 I have reviewed the current psychotropics carefully including drug interactions. Risk benefit ratio favors no change other than as noted in my dictated progress note. Diagnosis: Problems: (1) Impulse control disorder, unspecified (2) Anxiety disorder, unspecified (3) Major depressive disorder, recurrent (4) COVID-19 ESE LEVI MD Aug 01, 2021 08:05
[2021-08-01] MEDS: DULoxetine HCL 60 MG CAPSULE.DR PO SCH (08:07)
[2021-08-01] MEDS: NEOMY/BACITR/POLYMYXIN OINT PACKET. TP SCH ×2 (08:07→19:57)
[2021-08-01] MEDS: MULTIVITAMIN with MINERAL TABLET. PO SCH (08:07)
[2021-08-01] MEDS: buPROPion XL 150 MG TAB.ER.24H PO SCH (08:07)
[2021-08-01] MEDS: ASPIRIN CHEWABLE 81 MG TABLET. PO SCH (08:07)
[2021-08-01] MEDS: FUROSEMIDE 40 MG TABLET PO SCH (08:07)
[2021-08-01] MEDS: POTASSIUM CHLORIDE 10 MEQ TABLET.ER. PO SCH (08:07)
[2021-08-01] MEDS: ARIPiprazole 10 MG TABLET PO SCH (08:07)
[2021-08-01] MEDS: CLOPIDOGREL BISULFATE 75 MG TABLET PO SCH (08:07)
[2021-08-01] MEDS: DOCUSATE SODIUM 100 MG CAPSULE PO SCH ×2 (08:08→19:56)
[2021-08-01] MEDS: LINAGLIPTIN 5 MG TABLET PO SCH (08:08)
[2021-08-01] MEDS: NYSTATIN TOPICAL POWDER 15GM BOTTLE. TP SCH ×2 (08:15→19:57)
[2021-08-01] MEDS: CARVEDILOL 12.5 MG TABLET PO SCH ×2 (08:15→17:05)
--- NOTE | 2021-08-01 09:25 | NUR ---
Nursing note: Pt in bed eating breakfast at time of AM med pass and assessment. He is is compliant with meds whole and cooperative with assessment. Pt is depressed and attention seeking this AM, picking at himself and hitting himself stating he's "worthless". Pt cooperative and accepting of redirection. He is currently watching TV. Will continue to monitor.
[2021-08-01] MEDS: DULoxetine HCL 30 MG CAPSULE.DR PO SCH (12:55)
--- NOTE | 2021-08-01 14:40 | NUR ---
REPORT RECEIVED FROM RIAN DRUMMOND. PT MOVED TO ROOM 107. PT OXYGEN REMOVED AND PT PHONE MOVED TO CLOSET.
[2021-08-01 15:53] VITALS: BP 129/82
[2021-08-01 19:28] VITALS: BP 121/74
[2021-08-01] MEDS: traZODone 100 MG TABLET. PO SCH (19:56)
[2021-08-01] MEDS: lamoTRIgine 100 MG TABLET. PO SCH (19:56)
[2021-08-01] MEDS: MIRTAZAPINE 30 MG TABLET PO SCH (19:57)
[2021-08-01] MEDS: ATORVASTATIN CALCIUM 20 MG TABLET PO SCH (19:57)
--- NOTE | 2021-08-01 21:40 | PDOC ---
Exam Note: Josef Note: Please also refer to the separate dictated note~for this date of service dictated separately.~Patient seen individually. Discussed the patient with Nursing staff reviewed the chart.~Reviewed interim history and current functioning. Reviewed vital signs,~Labs/ Radiology~and current medications noted below. Continue current treatment with the changes noted in the dictated addendum note Assessment: Vital Signs/I&O: Vital Signs Date Time Temp Pulse Resp B/P (MAP) Pulse Ox O2 Delivery O2 Flow Rate FiO2 08/01/21 19:28 98.2 90 22 121/74 (90) 97.0 08/01/21 15:53 97 Room Air I & O 07/31/21 07/31/21 08/01/21 15:00 23:00 07:00 Intake Total 600 ml 440 ml Balance 600 ml 440 ml Labs: Laboratory Tests Test 08/01/21 08:06 08/01/21 12:17 08/01/21 17:00 08/01/21 18:54 Glucose (Fingerstick) 137 mg/dL (70-99) H 165 mg/dL (70-99) H 137 mg/dL (70-99) H 145 mg/dL (70-99) H Current Medications: Meds: Laboratory Tests Test 08/01/21 08:06 08/01/21 12:17 08/01/21 17:00 08/01/21 18:54 Glucose (Fingerstick) 137 mg/dL 165 mg/dL 137 mg/dL 145 mg/dL Current Medications Medications (Trade) Dose Ordered Sig/Nicky Route PRN Reason Start Time Stop Time Status Last Admin Dose Admin Acetaminophen (Tylenol) 650 mg PRN Q6HRS PRN PO mild pain/temp >100.3 F 07/25/21 23:00 Aripiprazole (Abilify) 15 mg DAILY PO 07/26/21 09:00 07/30/21 18:37 DC 07/30/21 08:37 Aspirin (Aspirin Chewable) 81 mg DAILY PO 07/26/21 09:00 08/01/21 08:07 Bupropion HCl (Wellbutrin Xl) 150 mg DAILY PO 07/26/21 09:00 08/01/21 08:07 Clopidogrel Bisulfate (Plavix) 75 mg DAILY PO 07/26/21 09:00 08/01/21 08:07 Dextrose (Dextrose 50%-Water Syringe) 12.5 gm PRN Q15MIN PRN IV hypoglycemia 07/25/21 23:00 Docusate Sodium (Colace) 100 mg BID PO 07/26/21 09:00 08/01/21 19:56 Duloxetine HCl (Cymbalta) 30 mg AFTRNOON PO 07/26/21 13:00 08/01/21 12:55 Duloxetine HCl (Cymbalta) 60 mg DAILY PO 07/26/21 09:00 08/01/21 08:07 Furosemide (Lasix) 40 mg DAILY PO 07/26/21 09:00 08/01/21 08:07 Lamotrigine (LaMICtal) 100 mg QHS PO 07/26/21 21:00 07/30/21 18:37 DC 07/29/21 19:28 Linagliptin (Tradjenta) 5 mg DAILY PO 07/26/21 09:00 08/01/21 08:08 Al Hydroxide/Mg Hydroxide (Mylanta Plus Xs) 15 ml PRN AFTMEALHC PRN PO DYSPEPSIA 07/25/21 23:00 Magnesium Citrate (Citroma) 296 ml PRN 1X PRN PO 2nd choice constipation 07/25/21 23:00 Mirtazapine (Remeron) 30 mg HS PO 07/26/21 21:00 08/01/21 19:57 Neomycin/ Polymyxin/ Bacitracin (Triple Antibiotic Ointment) 1 pkt BID TP 07/26/21 09:00 08/01/21 19:57 Nystatin (Nystop) 1 neelima BID TP 07/26/21 09:00 08/01/21 19:57 Olanzapine (ZyPREXA ZYDIS) 2.5 mg PRN Q2HRS PRN PO psychosis/agitation 07/25/21 23:00 08/01/21 19:56 Oxycodone/ Acetaminophen (Percocet 10/325) 1 tab PRN Q6HRS PRN PO PAIN 07/25/21 23:00 07/31/21 00:29 Potassium Chloride (Klor-Con) 30 meq DAILYWBKFT PO 07/26/21 08:00 08/01/21 08:07 Trazodone HCl (Desyrel) 50 mg PRN QHS PRN PO INSOMNIA 07/25/21 23:00 07/31/21 22:59 Trazodone HCl (Desyrel) 100 mg HS PO 07/26/21 21:00 08/01/21 19:56 Trolamine Salicylate (Myoplex) 1 neelima PRN QID PRN TP muscle pain 07/25/21 23:00 Cancel Atorvastatin Calcium (Lipitor) 80 mg QHS PO 07/26/21 21:00 08/01/21 19:57 Carvedilol (Coreg) 37.5 mg BIDWMEALS PO 07/26/21 08:00 08/01/21 17:05 Non-Formulary Medication (Insulin Lispro (Humalog)) SLIDING SCALE TIDWMEALS SQ 07/26/21 08:00 UNV Magnesium Hydroxide (Milk Of Magnesia) 2,400 mg PRN QHS PRN PO 1st choice constipation 07/25/21 23:15 07/29/21 08:49 Multivitamins/ Calcium (Thera-M Plus) 1 tab DAILY PO 07/26/21 09:00 08/01/21 08:07 Insulin Human Lispro (HumaLOG) 0-5 UNITS TIDWMEALS SQ 07/26/21 08:00 Multi-Ingredient Ointment (Analgesic [place]) 1 neelima PRN QID PRN TP MUSCLE PAIN 07/26/21 09:15 Aripiprazole (Abilify) 10 mg DAILY PO 07/31/21 09:00 08/01/21 08:07 Lamotrigine (LaMICtal) 150 mg QHS PO 07/30/21 21:00 08/01/21 19:56 I have reviewed the current psychotropics carefully including drug interactions. Risk benefit ratio favors no change other than as noted in my dictated progress note. Diagnosis: Problems: (1) Impulse control disorder, unspecified (2) Anxiety disorder, unspecified (3) Major depressive disorder, recurrent (4) COVID-19 ESE LEVI MD Aug 01, 2021 21:40
[2021-08-01 22:56] VITALS: BP 98/57
--- NOTE | 2021-08-02 00:33 | PN ---
DATE: 08/01/2021 ATTENDING PHYSICIAN: Dr. Hendrickson. SUBJECTIVE: No new complaints. He is a very pleasant and cooperative. OBJECTIVE FINDINGS: VITAL SIGNS: Blood pressure is 133/78, pulse was 100 and regular. He is afebrile. Oxygen saturation 98% on 2 liters. HEENT: Head is without trauma. Pupils are reactive. Sclerae nonicteric. The oropharynx is clear. NECK: Supple, no bruits identified. LUNGS: Good breath sounds. CARDIOVASCULAR: Showed regular heart tones. ABDOMEN: Soft. EXTREMITIES: Showed excoriations. No new lesions identified. ASSESSMENT: 1. A 66-year-old gentleman with asymptomatic COVID exposure. He has been fully vaccinated. 2. Underlying dementia with behavioral issues. 3. Depression with anxiety. 4. Chronic excoriation of lower extremity. 5. Morbid obesity. PLAN: 1. Home meds continued. 2. No antibiotics necessary at this time. 3. Quarantine precautions. 4. [facility] ALANNA DR: Francisco TID: [id number]
[2021-08-02 04:23] VITALS: BP 130/74
[2021-08-02] MEDS: INSULIN LISPRO 300 UNITS/3 ML VIAL. SQ SCH ×3 (07:45→16:59)
[2021-08-02 07:59] VITALS: BP 122/83
[2021-08-02] MEDS: ASPIRIN CHEWABLE 81 MG TABLET. PO SCH (08:31)
[2021-08-02] MEDS: FUROSEMIDE 40 MG TABLET PO SCH (08:31)
[2021-08-02] MEDS: DOCUSATE SODIUM 100 MG CAPSULE PO SCH ×2 (08:31→19:56)
[2021-08-02] MEDS: CLOPIDOGREL BISULFATE 75 MG TABLET PO SCH (08:31)
[2021-08-02] MEDS: ARIPiprazole 10 MG TABLET PO SCH (08:31)
[2021-08-02] MEDS: MULTIVITAMIN with MINERAL TABLET. PO SCH (08:31)
[2021-08-02] MEDS: DULoxetine HCL 60 MG CAPSULE.DR PO SCH (08:31)
[2021-08-02] MEDS: NEOMY/BACITR/POLYMYXIN OINT PACKET. TP SCH ×2 (08:31→19:56)
[2021-08-02] MEDS: LINAGLIPTIN 5 MG TABLET PO SCH (08:31)
[2021-08-02] MEDS: POTASSIUM CHLORIDE 10 MEQ TABLET.ER. PO SCH (08:31)
[2021-08-02] MEDS: buPROPion XL 150 MG TAB.ER.24H PO SCH (08:32)
[2021-08-02] MEDS: CARVEDILOL 12.5 MG TABLET PO SCH ×2 (08:32→16:30)
[2021-08-02] MEDS: NYSTATIN TOPICAL POWDER 15GM BOTTLE. TP SCH ×2 (08:32→19:57)
[2021-08-02 11:00] VITALS: BP 131/86
[2021-08-02] MEDS: DULoxetine HCL 30 MG CAPSULE.DR PO SCH (11:57)
--- NOTE | 2021-08-02 15:41 | NUR ---
PT RESTED ON AND OFF TODAY. PT WOULD BE ASLEEP UPON ENTERING THE ROOM THEN COMPLAIN THAT HE IS UNABLE TO SLEEP. PT WOULD ASK HOW TO TURN THE TV OFF WHEN IT WAS ALREADY OFF. PT COUGHING THIS MORNING, STATING THAT HE HAD PHLEGM THAT HE COULDN'T GET UP. AQUAFORM DRESSING PUT ON RIGHT INNER BIG TOE. NEOSPORIN APPLIED TO SCABS. PT DID NOT HAVE MUCH OF AN APPETITE TODAY.
--- NOTE | 2021-08-02 17:28 | PN ---
DATE: 08/02/2021 ATTENDING PHYSICIAN: Dr. Hendrickson. SUBJECTIVE: Alert, no new complaints. OBJECTIVE FINDINGS: VITAL SIGNS: Blood pressure this morning is 122/80. He is afebrile, pulse 90 and regular, oxygen saturation 96% on room air. HEENT: Head is without trauma. Pupils are reactive. Sclerae nonicteric. Oropharynx is clear. NECK: Supple, no bruits. LUNGS: Clear with good breath sounds. CARDIOVASCULAR: Showed regular heart tones. No gallops. ABDOMEN: Soft. No guarding or rebound tenderness. EXTREMITIES: Showed trace edema. He still has various excoriations from scratching. The skin is open, but there are no abscesses or oozing. It is healing nicely. ASSESSMENT: 1. A 66-year-old gentleman with asymptomatic COVID exposure. He has been fully vaccinated. 2. Profound dementia with behavioral issues. 3. Depression with anxiety. 4. Chronic excoriation of the legs due to scratching. 5. Morbid obesity. PLAN: 1. Home meds reviewed and continued. 2. Diet as tolerated. 3. No antibiotics necessary at this time for his leg wounds. 4. Quarantine precautions. [facility]. ANGEL/RONA DR: ANGEL/luis TID: [id number]
[2021-08-02 19:00] VITALS: BP 120/78
[2021-08-02] MEDS: traZODone 100 MG TABLET. PO SCH (19:55)
[2021-08-02] MEDS: MIRTAZAPINE 30 MG TABLET PO SCH (19:56)
[2021-08-02] MEDS: ATORVASTATIN CALCIUM 20 MG TABLET PO SCH (19:56)
[2021-08-02] MEDS: lamoTRIgine 100 MG TABLET. PO SCH (19:56)
[2021-08-03 05:30] VITALS: BP 145/80
--- NOTE | 2021-08-03 06:18 | NUR ---
Pt called throughout the night and was restless. Pt compliant and pleasant.
[2021-08-03] MEDS: INSULIN LISPRO 300 UNITS/3 ML VIAL. SQ SCH ×3 (08:00→17:00)
[2021-08-03] MEDS: CARVEDILOL 12.5 MG TABLET PO SCH ×2 (08:39→16:13)
[2021-08-03] MEDS: LINAGLIPTIN 5 MG TABLET PO SCH (08:39)
[2021-08-03] MEDS: buPROPion XL 150 MG TAB.ER.24H PO SCH (08:39)
[2021-08-03] MEDS: ARIPiprazole 10 MG TABLET PO SCH (08:39)
[2021-08-03] MEDS: ASPIRIN CHEWABLE 81 MG TABLET. PO SCH (08:40)
[2021-08-03] MEDS: DOCUSATE SODIUM 100 MG CAPSULE PO SCH ×2 (08:40→19:48)
[2021-08-03] MEDS: DULoxetine HCL 60 MG CAPSULE.DR PO SCH (08:40)
[2021-08-03] MEDS: POTASSIUM CHLORIDE 10 MEQ TABLET.ER. PO SCH (08:40)
[2021-08-03] MEDS: FUROSEMIDE 40 MG TABLET PO SCH (08:41)
[2021-08-03] MEDS: MULTIVITAMIN with MINERAL TABLET. PO SCH (08:41)
[2021-08-03] MEDS: CLOPIDOGREL BISULFATE 75 MG TABLET PO SCH (08:41)
[2021-08-03] MEDS: NYSTATIN TOPICAL POWDER 15GM BOTTLE. TP SCH ×2 (09:00→19:49)
[2021-08-03] MEDS: NEOMY/BACITR/POLYMYXIN OINT PACKET. TP SCH ×2 (09:00→19:49)
--- NOTE | 2021-08-03 10:00 | PN ---
DATE: 08/03/2021 ATTENDING PHYSICIAN: Dr. Hendrickson. SUBJECTIVE: He is alert, bright. No new complaints. Affect is good and his anxiety is not present today. OBJECTIVE FINDINGS: VITAL SIGNS: Blood pressure this morning is 120/78 mmHg, his pulse is 90 and regular. He is afebrile. Oxygen saturation 96% on room air. HEENT: Head is without trauma. Pupils are reactive. Sclerae nonicteric. Oropharynx clear. NECK: Supple, no bruits. LUNGS: Good breath sounds. CARDIOVASCULAR: Regular heart tones. ABDOMEN: Soft. EXTREMITIES: With 2+ edema. There is surgical absence of the second and fifth toes of the right foot. Various excoriations are still present on his lower extremities. They are noninfected. ASSESSMENT: 1. A 66-year-old gentleman, asymptomatic COVID-19 exposure. He has been fully vaccinated. 2. Profound dementia with behavioral issues. 3. Depression with anxiety. 4. Chronic excoriations. 5. Peripheral vascular disease. 6. Morbid obesity. PLAN: 1. Home meds reviewed and continued. 2. Diet as tolerated. 3. Quarantine on the medical floor until August 05. ANGEL/JAI DR: ANGEL/luis TID: [id number]
[2021-08-03 12:07] VITALS: BP 107/72
[2021-08-03] MEDS: DULoxetine HCL 30 MG CAPSULE.DR PO SCH (12:23)
[2021-08-03 15:00] VITALS: BP 133/87
[2021-08-03] MEDS: MIRTAZAPINE 30 MG TABLET PO SCH (19:48)
[2021-08-03] MEDS: ATORVASTATIN CALCIUM 20 MG TABLET PO SCH (19:48)
[2021-08-03] MEDS: oxyCODONE/APAP 10/325 1 TAB TABLET PO PRN (19:49)
[2021-08-03] MEDS: lamoTRIgine 100 MG TABLET. PO SCH (19:49)
[2021-08-03] MEDS: traZODone 100 MG TABLET. PO SCH (19:50)
[2021-08-03 19:56] VITALS: BP 119/82
[2021-08-04 06:20] VITALS: BP 125/84
[2021-08-04] MEDS: INSULIN LISPRO 300 UNITS/3 ML VIAL. SQ SCH ×3 (08:00→17:27)
[2021-08-04] MEDS: NYSTATIN TOPICAL POWDER 15GM BOTTLE. TP SCH ×2 (09:00→20:41)
[2021-08-04] MEDS: POTASSIUM CHLORIDE 10 MEQ TABLET.ER. PO SCH (09:12)
[2021-08-04] MEDS: ARIPiprazole 10 MG TABLET PO SCH (09:13)
[2021-08-04] MEDS: DOCUSATE SODIUM 100 MG CAPSULE PO SCH ×2 (09:13→20:40)
[2021-08-04] MEDS: CARVEDILOL 12.5 MG TABLET PO SCH ×2 (09:13→17:27)
[2021-08-04] MEDS: buPROPion XL 150 MG TAB.ER.24H PO SCH (09:13)
[2021-08-04] MEDS: CLOPIDOGREL BISULFATE 75 MG TABLET PO SCH (09:14)
[2021-08-04] MEDS: MULTIVITAMIN with MINERAL TABLET. PO SCH (09:14)
[2021-08-04] MEDS: LINAGLIPTIN 5 MG TABLET PO SCH (09:14)
[2021-08-04] MEDS: FUROSEMIDE 40 MG TABLET PO SCH (09:15)
[2021-08-04] MEDS: ASPIRIN CHEWABLE 81 MG TABLET. PO SCH (09:15)
[2021-08-04] MEDS: DULoxetine HCL 60 MG CAPSULE.DR PO SCH (09:15)
[2021-08-04] MEDS: NEOMY/BACITR/POLYMYXIN OINT PACKET. TP SCH ×2 (09:16→20:40)
[2021-08-04 12:08] VITALS: BP 134/90
[2021-08-04] MEDS: DULoxetine HCL 30 MG CAPSULE.DR PO SCH (13:24)
[2021-08-04 15:02] VITALS: BP 116/82
[2021-08-04 20:12] VITALS: BP 136/98
[2021-08-04] MEDS: MIRTAZAPINE 30 MG TABLET PO SCH (20:40)
[2021-08-04] MEDS: lamoTRIgine 100 MG TABLET. PO SCH (20:40)
[2021-08-04] MEDS: traZODone 100 MG TABLET. PO SCH (20:40)
[2021-08-04] MEDS: ATORVASTATIN CALCIUM 20 MG TABLET PO SCH (20:40)
[2021-08-04] MEDS: oxyCODONE/APAP 10/325 1 TAB TABLET PO PRN (20:40)
--- NOTE | 2021-08-04 22:00 | NUR ---
Patient cooperative and medication compliant. He stated he is glad to be going to [facility] in the morning. PRN pain medications provided at HS per patient request.
--- NOTE | 2021-08-05 01:12 | PN ---
DATE: 08/04/2021 ATTENDING PHYSICIAN: Dr. Hendrickson. SUBJECTIVE: No new complaints. OBJECTIVE FINDINGS: VITAL SIGNS: Blood pressure this morning is 125/84 mmHg, pulse is 100 and regular. He is afebrile. Oxygen saturation 97% on room air. HEENT: Head is without trauma. Pupils are reactive. Sclerae nonicteric. Oropharynx is clear. NECK: Supple. LUNGS: Clear. CARDIOVASCULAR: Regular heart tones. ABDOMEN: Soft. EXTREMITIES: Without edema. NEUROLOGIC: Excoriations are healing. ASSESSMENT: 1. A 66-year-old gentleman with asymptomatic COVID exposure. He has been fully vaccinated. 2. Profound dementia with behavioral issues. 3. Depression with anxiety. 4. Chronic excoriation. 5. Peripheral vascular disease. PLAN: 1. Continue home medications and reviewed. 2. He does not need supplemental oxygen. 3. Diet as tolerated. 4. He will finish quarantine tomorrow and go back to Behavioral Unit. ANGEL/NETTA/CLAUDIA DR: ANGEL/luis TID: [id number]
[2021-08-05 05:55] VITALS: BP 150/78
[2021-08-05] MEDS: INSULIN LISPRO 300 UNITS/3 ML VIAL. SQ SCH ×2 (08:00→12:00)
[2021-08-05 08:17] VITALS: BP 150/78
[2021-08-05] MEDS: POTASSIUM CHLORIDE 10 MEQ TABLET.ER. PO SCH (08:17)
[2021-08-05] MEDS: CARVEDILOL 12.5 MG TABLET PO SCH (08:17)
[2021-08-05] MEDS: DULoxetine HCL 60 MG CAPSULE.DR PO SCH (08:17)
[2021-08-05] MEDS: CLOPIDOGREL BISULFATE 75 MG TABLET PO SCH (08:18)
[2021-08-05] MEDS: LINAGLIPTIN 5 MG TABLET PO SCH (08:18)
[2021-08-05] MEDS: ARIPiprazole 10 MG TABLET PO SCH (08:18)
[2021-08-05] MEDS: buPROPion XL 150 MG TAB.ER.24H PO SCH (08:18)
[2021-08-05] MEDS: FUROSEMIDE 40 MG TABLET PO SCH (08:18)
[2021-08-05] MEDS: MULTIVITAMIN with MINERAL TABLET. PO SCH (08:18)
[2021-08-05] MEDS: ASPIRIN CHEWABLE 81 MG TABLET. PO SCH (08:18)
[2021-08-05] MEDS: DOCUSATE SODIUM 100 MG CAPSULE PO SCH (08:18)
[2021-08-05] MEDS: NEOMY/BACITR/POLYMYXIN OINT PACKET. TP SCH (08:19)
[2021-08-05] MEDS: NYSTATIN TOPICAL POWDER 15GM BOTTLE. TP SCH (09:00)
--- NOTE | 2021-08-05 11:12 | DS ---
DATE OF DISCHARGE: 08/05/2021 ATTENDING PHYSICIAN: Mya Gandhi M.D. FINAL DISCHARGE DIAGNOSES: 1. Asymptomatic COVID infection. 2. Type 2 diabetes. 3. Old cerebrovascular accident with deficits. 4. Morbid obesity. 5. Hypertension. 6. Dementia with behavioral issues. 7. Chronic excoriations of the lower extremities. HISTORY AND PHYSICAL: The patient brought back at age 66, was on the [facility] for psychiatric issues. He tested positive for COVID-19. He was asymptomatic. He was brought here for quarantine on the medical floor. PHYSICAL EXAMINATION: Please see the dictated note. PERTINENT LABORATORY AND X-RAY STUDIES: Hemoglobin 11.4, white count 6900. Sugars were in the low 100s. Chemistry panel is unremarkable. COURSE IN THE HOSPITAL: He was on the medical floor for 10 days. No significant respiratory distress. He was afebrile, oxygen saturation is adequate and he tolerated diet. On the 11th hospital day, arrangements were made for the patient to go back to the [facility]. His meds are unchanged, they include the following: He will continue his extensive psychiatric meds including Abilify, aspirin, Lipitor, BuSpar, Coreg, Plavix, docusate, Cymbalta, Lasix, insulin, Lamictal, Tradjenta, magnesium citrate, Remeron, multivitamin, nystatin, Zyprexa, oxycodone p.r.n., potassium, trazodone and salicylate cream. He is a FULL CODE. His prognosis is fair. He was discharged then from our floor back to the [facility] in stable condition with explicit drug and followup care. NUNU DR: Francisco TID: [id number] CC: ESE LEVI MD
[2021-08-05] MEDS: DULoxetine HCL 30 MG CAPSULE.DR PO SCH (13:22)
[2021-08-05] MEDS: oxyCODONE/APAP 10/325 1 TAB TABLET PO PRN (14:37)
--- NOTE | 2021-08-05 16:14 | NUR ---
nursing note Pt discharged at 1400 [address] bed to [facility] pt given written and verbal instructions with vebal statement of understanding recived
--- NOTE | 2021-08-21 07:49 | PDOC ---
Exam Note: Josef Note: The original record of this date cannot be traced in the medical record system and I am therefore re-dictating this note as a late entry for DOS 08/01/2021 on 08/20/2021. Subjective: The patient was reviewed with nursing staff on 08/01/2021, discussed and reviewed the chart. Reviewed his interim history and current functioning. Overall per nursing report, the patient has been fairly appropriate on the unit. Review of Systems: Per nursing report, no CV, , eye, ENT system symptoms on review. Mental Status Exam: The patient is oriented to himself per nursing report. Speech coherent. Abstraction fair. Computation impaired. Language function intact. Mood and affect anxious, withdrawn. Laboratory Data: Reviewed. Impression: Major depressive disorder, recurrent, rule out psychotic features. Anxiety disorder unspecified. Plan: Continue current psychotropics. Adjust further as clinically indicated. Current Medications: I have reviewed the current psychotropics carefully including drug interactions. Risk benefit ratio favors no change other than as noted in my dictated progress note. Diagnosis: Problems: (1) Impulse control disorder, unspecified (2) Anxiety disorder, unspecified (3) Major depressive disorder, recurrent (4) Personality disorder, unspecified ESE LEVI MD Aug 21, 2021 07:49
== END 2021-08-05 16:15 | DRG 177 ==
LOC: LND 22:13 → 1 SOUTH 08-01 14:24
PROVIDERS: ADMIT Internal Medicine; ATTEND Internal Medicine
DX: U07.1 COVID-19 (principal); E43 Unspecified severe protein-calorie malnutrition; F03.91 Unspecified dementia, unspecified severity, with behavioral disturbance; F33.9 Major depressive disorder, recurrent, unspecified; I13.0 Hypertensive heart and chronic kidney disease with heart failure and stage 1 through stage 4 chronic kidney disease, or unspecified chronic kidney disease; E11.22 Type 2 diabetes mellitus with diabetic chronic kidney disease; E11.51 Type 2 diabetes mellitus with diabetic peripheral angiopathy without gangrene; E66.01 Morbid (severe) obesity due to excess calories; F41.8 Other specified anxiety disorders; F63.9 Impulse disorder, unspecified; G47.33 Obstructive sleep apnea (adult) (pediatric); G89.29 Other chronic pain; I25.10 Atherosclerotic heart disease of native coronary artery without angina pectoris; I50.9 Heart failure, unspecified; M17.0 Bilateral primary osteoarthritis of knee; N18.30 Chronic kidney disease, stage 3 unspecified; Z86.73 Personal history of transient ischemic attack (TIA), and cerebral infarction without residual deficits; Z95.1 Presence of aortocoronary bypass graft; Z99.3 Dependence on wheelchair; Z68.39 Body mass index [BMI] 39.0-39.9, adult
CPT/HCPCS: 36415; 80053; 82947; 85025

== ENCOUNTER 2021-08-05 09:42 | Inpatient (IN) | payer MEDICARE, BC ==
[~2021-08-05] VITALS: Ht 182.9 cm; Wt 117.5 kg
[~2021-08-05 09:42] MED LIST changes: +ACET325T9 PO; +ARIP15TA36 PO; +BUPR150T21 PO; +DEXT50DI3 IV; +DOCU100C28 PO; +DULO30CA2 PO; +FURO-68 PO; +INSU100V SQ; +LAMO100T5 PO; +LINA5TAB4 PO; +MAG-115 PO; +MAGN24003 PO; +MAGN296S4 PO; +MIRT-35 PO; +NEOM1OIN6 TP; +OLAN5TAB99 PO; +TRAZ-120 PO; +TROL86CR TP
[2021-08-05] MEDS ORDERED: MAG HYDROX/AL HYDROX/SIMETH 30 ML ORAL.SUSP PO PRN (16:30)
[2021-08-05] MEDS ORDERED: TROLAMINE SALICYLATE 10% TOPICAL CREAM 85GM JAR. TP PRN (16:30)
[2021-08-05] MEDS ORDERED: MAGNESIUM CITRATE 296 ML SOLUTION. PO PRN (16:30)
[2021-08-05 16:45] VITALS: BP 144/87
[2021-08-05] MEDS ORDERED: METHYL SALICYLATE/MENTHOL TOPICAL OINTMENT 57GM TUBE. TP PRN (17:00)
[2021-08-05] MEDS ORDERED: DEXTROSE 50% 25 GM / 50ML DISP.SYRIN. IV PRN (17:00)
[2021-08-05] MEDS: INSULIN LISPRO 300 UNITS/3 ML VIAL. SQ SCH (17:00)
[2021-08-05] MEDS: CARVEDILOL 12.5 MG TABLET PO SCH (17:00)
[2021-08-05] MEDS ORDERED: NON FORMULARY ITEM (Insulin Lispro (Humalog) 0 UNIT) SQ SCH (17:00)
[2021-08-05 19:47] LABS: BASO % 1 % (0-3); EOS # 0.2 x10^3/uL (0.0-0.7); EOS % 3 % (0-3); HEMATOCRIT 34.4 % (39.0-53.0); HEMOGLOBIN 11.2 g/dL (13.0-17.5); LYMPH # 0.7 x10^3/uL (1.0-4.8); LYMPH % 10 % (24-48); MEAN CORPUSCULAR HEMOGLOBIN 32 pg (25-35); MEAN CORPUSCULAR HGB CONC 33 g/dL (31-37); MEAN CORPUSCULAR VOLUME 97 fL (79-100); MONO # 0.6 x10^3/uL (0.0-1.1); MONO % 9 % (0-9); NEUT # 5.5 x10^3uL (1.8-7.7); NEUT % 78 % (31-73); PLATELET COUNT 263 x10^3/uL (140-400); RED BLOOD COUNT 3.55 x10^6/uL (4.30-5.70); RED CELL DISTRIBUTION WIDTH 17.1 % (11.5-14.5); WHITE BLOOD COUNT 7.1 x10^3/uL (4.0-11.0)
[2021-08-05 19:58] LABS: ALBUMIN 2.5 g/dL (3.4-5.0); ALBUMIN/GLOBULIN RATIO 0.6 (1.0-1.7); CALCIUM 8.3 mg/dL (8.5-10.1); CREATININE 0.9 mg/dL (0.7-1.3); GFR 84.2; MAGNESIUM 2.2 mg/dL (1.8-2.4); POTASSIUM 4.1 mmol/L (3.5-5.1); TOTAL BILIRUBIN 0.4 mg/dL (0.2-1.0); TOTAL PROTEIN 6.5 g/dL (6.4-8.2)
[2021-08-05 20:00] LABS: BACTERIA,URINE 0 /HPF (0-FEW); CLARITY,URINE CLEAR; COLOR,URINE YELLOW; GLUCOSE,URINE NEG (NEG); NITRITE,URINE NEG (NEG); SQUAMOUS EPITHELIAL CELL,UR OCC /LPF; UROBILINOGEN,URINE 0.2 mg/dL (0.2 mg/dL); WBC,URINE 0 /HPF (0-4)
[2021-08-05] MEDS: lamoTRIgine 100 MG TABLET. PO SCH (20:31)
[2021-08-05] MEDS: ATORVASTATIN CALCIUM 20 MG TABLET PO SCH (20:32)
[2021-08-05] MEDS: ACETAMINOPHEN 325 MG TABLET PO PRN (20:32)
[2021-08-05] MEDS: traZODone 100 MG TABLET. PO SCH (20:32)
[2021-08-05] MEDS: DOCUSATE SODIUM 100 MG CAPSULE PO SCH (20:33)
[2021-08-05] MEDS: NYSTATIN TOPICAL POWDER 15GM BOTTLE. TP SCH (20:33)
[2021-08-05] MEDS: NEOMY/BACITR/POLYMYXIN OINT PACKET. TP SCH (20:33)
[2021-08-05] MEDS: MIRTAZAPINE 30 MG TABLET PO SCH (20:33)
[2021-08-06 06:02] VITALS: BP 120/77
[2021-08-06] MEDS: INSULIN LISPRO 300 UNITS/3 ML VIAL. SQ SCH ×3 (07:38→17:00)
[2021-08-06] MEDS: DOCUSATE SODIUM 100 MG CAPSULE PO SCH ×2 (08:24→19:45)
[2021-08-06] MEDS: POTASSIUM CHLORIDE 10 MEQ TABLET.ER. PO SCH (08:24)
[2021-08-06] MEDS: DULoxetine HCL 60 MG CAPSULE.DR PO SCH (08:24)
[2021-08-06] MEDS: buPROPion XL 150 MG TAB.ER.24H PO SCH (08:25)
[2021-08-06] MEDS: ASPIRIN CHEWABLE 81 MG TABLET. PO SCH (08:25)
[2021-08-06] MEDS: CARVEDILOL 12.5 MG TABLET PO SCH ×2 (08:25→16:45)
[2021-08-06] MEDS: LINAGLIPTIN 5 MG TABLET PO SCH (08:25)
[2021-08-06] MEDS: FUROSEMIDE 40 MG TABLET PO SCH (08:26)
[2021-08-06] MEDS: MULTIVITAMIN with MINERAL TABLET. PO SCH (08:26)
[2021-08-06] MEDS: ARIPiprazole 10 MG TABLET PO SCH (08:26)
[2021-08-06] MEDS: CLOPIDOGREL BISULFATE 75 MG TABLET PO SCH (08:27)
[2021-08-06] MEDS: NYSTATIN TOPICAL POWDER 15GM BOTTLE. TP SCH ×2 (09:00→19:46)
[2021-08-06] MEDS: NEOMY/BACITR/POLYMYXIN OINT PACKET. TP SCH ×2 (09:00→19:46)
[2021-08-06] MEDS: DULoxetine HCL 30 MG CAPSULE.DR PO SCH (11:59)
[2021-08-06 15:45] VITALS: BP 130/81
[2021-08-06] MEDS: traZODone 100 MG TABLET. PO SCH (19:45)
[2021-08-06] MEDS: lamoTRIgine 100 MG TABLET. PO SCH (19:45)
[2021-08-06] MEDS: MIRTAZAPINE 30 MG TABLET PO SCH (19:45)
[2021-08-06] MEDS: ATORVASTATIN CALCIUM 20 MG TABLET PO SCH (19:45)
[2021-08-06] MEDS: oxyCODONE/APAP 10/325 1 TAB TABLET PO PRN (19:47)
[2021-08-06 20:16] LABS: CHOLESTEROL/HDL RATIO 2.6; THYROID STIM HORMONE (TSH) 3.416 uIU/mL (0.358-3.740)
[2021-08-06 23:06] LABS: THYROXINE 5.6 ug/dL (4.5-12.0)
[2021-08-07 01:08] LABS: HEMOGLOBIN A1C 6.4 % (4.8-5.6)
[2021-08-07] MEDS: traZODone 50 MG TABLET. PO PRN (02:21)
[2021-08-07] MEDS: oxyCODONE/APAP 10/325 1 TAB TABLET PO PRN ×2 (02:22→11:43)
--- NOTE | 2021-08-07 03:03 | PN ---
DATE: 08/06/2021 SUBJECTIVE: The patient is seen today, met with the staff, chart reviewed and also covering for Dr. Jacobs. The patient's behavior has improved, still stays in bed most of the time, pleasant. The patient admits to having nightmares and apparently staff reported that he did have a visual hallucination last night, apparently saw his son. The patient states he did not have any problems with visual hallucinations before and probably it is related to his sleep-wake cycle. OBSERVATION: VITAL SIGNS: Temperature 97.7, blood pressure 130/81, pulse 99, respirations 20, O2 sat 95%. GENERAL: Slept fair. The patient is not having any other physical complaints. The patient was seen by the Wound Care. Apparently, he was pleased with the visit. The patient is not having any other major physical complaints at this time. LABORATORY DATA: The patient's lab reviewed. Hemoglobin 11.2. The patient's glucose level was 138. CURRENT MEDICATIONS: Include Cymbalta 30 mg daily and 60 mg daily, bupropion 150 mg daily, Abilify 10 mg daily, trazodone 100 mg at night, mirtazapine 30 mg at night, Lamictal 150 mg at night and also trazodone 50 mg at night p.r.n. for sleep and olanzapine 2.5 mg q. 2 hours p.r.n. for psychosis. The patient is not having any side effects to the medications. ASSESSMENT: 1. Major depressive disorder, recurrent, moderate. 2. Generalized anxiety disorder. PLAN: To continue treatment. LENGTH OF STAY: Five to seven days. CELINA DR: Gregory TID: [id number]
[2021-08-07 05:53] VITALS: BP 135/92
[2021-08-07] MEDS: INSULIN LISPRO 300 UNITS/3 ML VIAL. SQ SCH ×3 (08:00→17:00)
[2021-08-07] MEDS: NYSTATIN TOPICAL POWDER 15GM BOTTLE. TP SCH ×2 (09:00→19:44)
[2021-08-07] MEDS: NEOMY/BACITR/POLYMYXIN OINT PACKET. TP SCH ×2 (09:00→19:45)
[2021-08-07] MEDS: LINAGLIPTIN 5 MG TABLET PO SCH (09:43)
[2021-08-07] MEDS: CLOPIDOGREL BISULFATE 75 MG TABLET PO SCH (09:43)
[2021-08-07] MEDS: POTASSIUM CHLORIDE 10 MEQ TABLET.ER. PO SCH (09:43)
[2021-08-07] MEDS: ARIPiprazole 10 MG TABLET PO SCH (09:43)
[2021-08-07] MEDS: ASPIRIN CHEWABLE 81 MG TABLET. PO SCH (09:44)
[2021-08-07] MEDS: MULTIVITAMIN with MINERAL TABLET. PO SCH (09:44)
[2021-08-07] MEDS: CARVEDILOL 12.5 MG TABLET PO SCH ×2 (09:44→17:00)
[2021-08-07] MEDS: DULoxetine HCL 60 MG CAPSULE.DR PO SCH (09:44)
[2021-08-07] MEDS: buPROPion XL 150 MG TAB.ER.24H PO SCH (09:44)
[2021-08-07] MEDS: FUROSEMIDE 40 MG TABLET PO SCH (09:44)
[2021-08-07] MEDS: DOCUSATE SODIUM 100 MG CAPSULE PO SCH ×2 (09:44→19:45)
[2021-08-07] MEDS: DULoxetine HCL 30 MG CAPSULE.DR PO SCH (13:00)
--- NOTE | 2021-08-07 13:01 | TX PLAN ---
Interdisciplinary Tx Plan Admission Information Aug 05, 2021 at 16:20 Legal Status (on Admission): Voluntary DPOA/Guardian Name: Son-Inocencio Maravilla (not enacted at this time as pt is a self sign) Contact Other Contact Name: Luanne Other Contact Verified Code Status: Full Code Allergies: Coded Allergies: No Known Drug Allergies (Unverified , 04/25/21) Diagnoses Primary Diagnosis: 1. Major depressive disorder, recurrent, moderate. 2. Generalized anxiety disorder. Reasons for Admission: Relation/conflict, Agitated, Depressed, Sig. Change Appetite, Anxiety/Panic, Suicidal ideation, Poor impulse control Problem in Patient's Words: I am terribly depressed and anxious. 08/07/21-Pt reports being very sad. Additional Admission Comments: Per intake pt is depressed, anxious, not eating to tank blood sugar to kill himself, put himself on the floor seven times over a weekend, verbally aggressive toward staff, SI, and texted his son expressing plan to end his life. 08/07/21-Pt reports being very sad. He has spent time in his bed as he has wounds on his legs that require special care. Some of the concern is if he is scratching himself intentionally to create the wounds or if the wounds are created by his skin sticking to his mattress and during transitions using the guerita lift. Problems Active Problems: Depression, anxiety, poor appetite, poor impulse control Inactive Problems: Suicidal ideation Pt Strengths/Limitations Ability for [place]: Poor Cognitive Functioning/Ability: Good Communication Skills/Ability: Good Financial Resources: Good Insight/Judgement: Poor Intellectual Ability: Good Physical Health: Poor Social Skills: Fair Stability in Family: Fair Stability in School/Work: Fair Verbal Skills: Good Discharge Criteria Discharge Criteria: Able meet basic life need, No need for close observ., Adequate arrangements @DC, Adequate self-care, Verbal commit med comply, Improved behavior, Improved mood/thought Other Discharge Comments: None at this time. Preliminary Discharge Plan Preliminary DC Plan: Current Living Arrange. Other Arrangements: Pt facility is looking for an alternate placement, but will accept him back Special Precautions Special Precautions: Other Fall Risk: High Other Precautions (specify): Pt has put himself on the floor. He offers little help during transfers. Initial D/C Plan Pt to return to [facility] should alternative placement not be found. Identified Discharge Needs: None at this time. Currently Utilized Resources Currently Utilized Resources/P: PCP-Dr. Daisy Sanchez Psychiatrist-Dr. Ashley Pichardo, CERTIFIED ART THERAPIST DPOA (not currently enacted)-Son-Inocencio Maravilla Referrals Community Resources: None at this time. Identified Problems/Hx/Goals Objectives/Short-Term Goals Short Term Goals in Patient's: Need help feeling less depressed and anxious. Interventions/Frequency Staff Interventions/Frequency&: Psychiatry to assess pt three times per week for medication management. Nursing to assess behaviors, monitor medications, and complete 15 minute checks daily. Social work to see pt at least two times weekly to aid in return to placement. Activities to encourage pt to participate in group activities daily. 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 Education: Graduated from [employer] in [place], [place]. Pt reports having taken some classes at the [facility] [facility]. Community Follow-up PCP Community Provider/Family Inpu: Pt is a self sign and participated in the development of his own treatment plan. Treatment Plan Explained Patient/Underwriting Manager had this treatment plan explained to him/her as indicated by the signature below and has been given the opportunity to ask questions and make suggestions: Date: Patient/Underwriting Manager Signature: EVE CORONA Aug 07, 2021 13:01
[2021-08-07 16:21] VITALS: BP 136/91
[2021-08-07] MEDS: traZODone 100 MG TABLET. PO SCH (19:45)
[2021-08-07] MEDS: MIRTAZAPINE 30 MG TABLET PO SCH (19:45)
[2021-08-07] MEDS: ATORVASTATIN CALCIUM 20 MG TABLET PO SCH (19:46)
[2021-08-07] MEDS: lamoTRIgine 100 MG TABLET. PO SCH (19:46)
--- NOTE | 2021-08-07 23:44 | PN ---
DATE: 08/07/2021 SUBJECTIVE: The patient is seen today, met with the staff. Chart was reviewed. Also covering for Dr. Jacobs. Participated in the treatment review meeting today. The patient continues to show improvement, not having any panic attacks, but continues to complain of having problems with his boots and he end up in the night because of the frequent movements. He has multiple cuts which are superficial on his lower extremity. The patient was seen by the Wound Care yesterday. The patient's appetite is fair, ate 60% of his meals, slept about 8 hours last night. Staff reports no major behavior problems, no falls. He is no longer putting himself on the floor. OBSERVATION: VITAL SIGNS: Temperature 97.6, blood pressure 135/92, pulse 107, respirations 22, O2 sat 94%. GENERAL: Slept about 5 hours last night. CURRENT MEDICATIONS: Cymbalta 30 mg daily and 60 mg daily, bupropion 150 mg daily, Abilify 10 mg daily, trazodone 100 mg at night and mirtazapine 30 mg at night. The patient is also on Lamictal 150 mg daily and trazodone 50 mg at night p.r.n. and olanzapine 2.5 mg q. 2 hours p.r.n. The patient denies of any side effects to medications. LABORATORY DATA: The patient's lab reviewed. ASSESSMENT: 1. Major depressive disorder, recurrent, moderate to severe. 2. Generalized anxiety disorder. PLAN: The patient is awaiting for placement. We will continue on the current treatment plan. LENGTH OF STAY: Three to five days. MAREN/JUSTIN DR: Gregoyr TID: [id number]
[2021-08-08 06:08] VITALS: BP 144/101
--- NOTE | 2021-08-08 06:29 | EKG ---
[address] [address] Test Date: 2021-08-06 Test Time: 11:12:21 Pat Name: MARTA ARIZA Department: Room: [address] [place] [address] Gender: M Case Loader Operator: : [id number] Requested By: DAYANA GONZALEZ Order Number: [id number] Reading MD: Albert Becker Measurements Intervals [place] Rate: P: ID: QRS: QRSD: T: QT: QTc: Interpretive Statements ATRIAL FIBRILLATION PREMATURE VENTRICULAR COMPLEXES Electronically Signed On 08-08-2021 13:14:51 ASSISTANT PROFESSOR OF ART by Albert Becker
[2021-08-08] MEDS: INSULIN LISPRO 300 UNITS/3 ML VIAL. SQ SCH ×3 (08:00→17:00)
[2021-08-08] MEDS: NEOMY/BACITR/POLYMYXIN OINT PACKET. TP SCH ×2 (08:37→19:54)
[2021-08-08] MEDS: DOCUSATE SODIUM 100 MG CAPSULE PO SCH ×2 (08:38→19:55)
[2021-08-08] MEDS: MULTIVITAMIN with MINERAL TABLET. PO SCH (08:38)
[2021-08-08] MEDS: FUROSEMIDE 40 MG TABLET PO SCH (08:38)
[2021-08-08] MEDS: CARVEDILOL 12.5 MG TABLET PO SCH ×2 (08:38→16:05)
[2021-08-08] MEDS: POTASSIUM CHLORIDE 10 MEQ TABLET.ER. PO SCH (08:38)
[2021-08-08] MEDS: ARIPiprazole 10 MG TABLET PO SCH (08:38)
[2021-08-08] MEDS: ASPIRIN CHEWABLE 81 MG TABLET. PO SCH (08:38)
[2021-08-08] MEDS: DULoxetine HCL 60 MG CAPSULE.DR PO SCH (08:38)
[2021-08-08] MEDS: LINAGLIPTIN 5 MG TABLET PO SCH (08:38)
[2021-08-08] MEDS: buPROPion XL 150 MG TAB.ER.24H PO SCH (08:39)
[2021-08-08] MEDS: CLOPIDOGREL BISULFATE 75 MG TABLET PO SCH (08:39)
[2021-08-08] MEDS: NYSTATIN TOPICAL POWDER 15GM BOTTLE. TP SCH ×2 (08:39→19:55)
[2021-08-08] MEDS: DULoxetine HCL 30 MG CAPSULE.DR PO SCH (12:05)
[2021-08-08 15:56] VITALS: BP 108/76
[2021-08-08] MEDS: MIRTAZAPINE 30 MG TABLET PO SCH (19:55)
[2021-08-08] MEDS: ATORVASTATIN CALCIUM 20 MG TABLET PO SCH (19:55)
[2021-08-08] MEDS: traZODone 100 MG TABLET. PO SCH (19:55)
[2021-08-08] MEDS: lamoTRIgine 100 MG TABLET. PO SCH (19:55)
[2021-08-08] MEDS: oxyCODONE/APAP 10/325 1 TAB TABLET PO PRN (22:07)
[2021-08-08] MEDS: MAGNESIUM HYDROXIDE 2,400 MG/30 ML ORAL.SUSP. PO PRN (23:02)
--- NOTE | 2021-08-09 02:08 | PN ---
DATE: 08/08/2021 SUBJECTIVE: The patient is seen today, met with the staff. Chart was reviewed. I am covering for Dr. Jacobs. Staff reports some improvement, tend to spend more time in bed, he is medication compliant and not exhibiting any major mood swings. OBSERVATION: VITAL SIGNS: Temperature 97.2, blood pressure 144/101, pulse 98, respirations 22, O2 sat 98%. GENERAL: Slept about 2 hours last night, but he spent more time sleeping during the daytime. LABORATORY DATA: The patient's lab reviewed. CURRENT MEDICATIONS: Cymbalta 30 mg daily and 60 mg daily, bupropion 150 mg daily, Abilify 10 mg daily, trazodone 100 mg at night, mirtazapine 30 mg at night, Lamictal 150 mg daily. The patient is also on p.r.n. medications including trazodone 50 mg at night and olanzapine 2.5 mg q.2 hours p.r.n. The patient is not having any side effects to medications. ASSESSMENT: 1. Major depressive disorder, recurrent, moderate to severe. 2. Generalized anxiety disorder. PLAN: The patient still awaiting for placement. LENGTH OF STAY: Three to five days. RITU DR: Gregory TID: [id number]
[2021-08-09 05:36] VITALS: BP 105/70
[2021-08-09] MEDS: CARVEDILOL 12.5 MG TABLET PO SCH ×2 (08:00→17:00)
[2021-08-09] MEDS: INSULIN LISPRO 300 UNITS/3 ML VIAL. SQ SCH ×3 (08:00→17:00)
[2021-08-09] MEDS: MULTIVITAMIN with MINERAL TABLET. PO SCH (08:03)
[2021-08-09] MEDS: FUROSEMIDE 40 MG TABLET PO SCH (08:03)
[2021-08-09] MEDS: DOCUSATE SODIUM 100 MG CAPSULE PO SCH ×2 (08:03→20:03)
[2021-08-09] MEDS: POTASSIUM CHLORIDE 10 MEQ TABLET.ER. PO SCH (08:04)
[2021-08-09] MEDS: ARIPiprazole 10 MG TABLET PO SCH (08:04)
[2021-08-09] MEDS: ASPIRIN CHEWABLE 81 MG TABLET. PO SCH (08:04)
[2021-08-09] MEDS: DULoxetine HCL 60 MG CAPSULE.DR PO SCH (08:04)
[2021-08-09] MEDS: LINAGLIPTIN 5 MG TABLET PO SCH (08:05)
[2021-08-09] MEDS: CLOPIDOGREL BISULFATE 75 MG TABLET PO SCH (08:05)
[2021-08-09] MEDS: buPROPion XL 150 MG TAB.ER.24H PO SCH (08:05)
[2021-08-09] MEDS: NEOMY/BACITR/POLYMYXIN OINT PACKET. TP SCH ×2 (08:06→20:06)
[2021-08-09] MEDS: NYSTATIN TOPICAL POWDER 15GM BOTTLE. TP SCH ×2 (08:08→20:06)
[2021-08-09] MEDS: DULoxetine HCL 30 MG CAPSULE.DR PO SCH (13:00)
[2021-08-09] MEDS: oxyCODONE/APAP 10/325 1 TAB TABLET PO PRN ×2 (13:38→20:06)
[2021-08-09 15:16] VITALS: BP 126/89
[2021-08-09] MEDS: traZODone 100 MG TABLET. PO SCH (20:03)
[2021-08-09] MEDS: MIRTAZAPINE 30 MG TABLET PO SCH (20:03)
[2021-08-09] MEDS: lamoTRIgine 100 MG TABLET. PO SCH (20:04)
[2021-08-09] MEDS: ATORVASTATIN CALCIUM 20 MG TABLET PO SCH (20:04)
--- NOTE | 2021-08-09 23:05 | PN ---
DATE: 08/09/2021 SUBJECTIVE: The patient was seen today, met with the staff. Chart reviewed. The patient's behavior has improved. The patient has not presented with any major behavior problems. The patient is still dealing with his physical issues including his obesity and gets panicky when he tries to move around in bed, he has difficulty with his physical activities. He is also feeling helpless at times, but no recent history of putting himself to the floor. OBSERVATION: VITAL SIGNS: Temperature 98.3, blood pressure 105/70, pulse 112, respirations 18, O2 sat 95%. GENERAL: Slept about 6 hours last night. LABORATORY DATA: The patient's lab reviewed. CURRENT MEDICATIONS: The patient's current medications include Cymbalta 30 mg daily and 60 mg daily, bupropion 150 mg daily, Abilify 10 mg daily, trazodone 100 mg at night, mirtazapine 30 mg at night, Lamictal 150 mg daily. The patient is also on p.r.n. medications including trazodone, olanzapine, but did not require any PRNs lately. ASSESSMENT: 1. Major depressive disorder, recurrent, moderate to severe. 2. Generalized anxiety disorder. PLAN: To continue with treatment. LENGTH OF STAY: Three to five days and awaiting for placement. TERESA DR: Gregory TID: [id number]
[2021-08-10 06:34] VITALS: BP 128/90
[2021-08-10] MEDS: INSULIN LISPRO 300 UNITS/3 ML VIAL. SQ SCH ×3 (07:50→17:00)
[2021-08-10] MEDS: MULTIVITAMIN with MINERAL TABLET. PO SCH (08:10)
[2021-08-10] MEDS: CARVEDILOL 12.5 MG TABLET PO SCH ×2 (08:10→17:46)
[2021-08-10] MEDS: DULoxetine HCL 60 MG CAPSULE.DR PO SCH (08:10)
[2021-08-10] MEDS: ASPIRIN CHEWABLE 81 MG TABLET. PO SCH (08:10)
[2021-08-10] MEDS: DOCUSATE SODIUM 100 MG CAPSULE PO SCH ×2 (08:10→19:52)
[2021-08-10] MEDS: buPROPion XL 150 MG TAB.ER.24H PO SCH (08:11)
[2021-08-10] MEDS: POTASSIUM CHLORIDE 10 MEQ TABLET.ER. PO SCH (08:11)
[2021-08-10] MEDS: CLOPIDOGREL BISULFATE 75 MG TABLET PO SCH (08:11)
[2021-08-10] MEDS: ARIPiprazole 10 MG TABLET PO SCH (08:11)
[2021-08-10] MEDS: LINAGLIPTIN 5 MG TABLET PO SCH (08:11)
[2021-08-10] MEDS: NEOMY/BACITR/POLYMYXIN OINT PACKET. TP SCH ×2 (08:12→19:52)
[2021-08-10] MEDS: FUROSEMIDE 40 MG TABLET PO SCH (08:12)
[2021-08-10] MEDS: MAGNESIUM HYDROXIDE 2,400 MG/30 ML ORAL.SUSP. PO PRN (08:12)
[2021-08-10] MEDS: NYSTATIN TOPICAL POWDER 15GM BOTTLE. TP SCH ×2 (09:00→19:52)
[2021-08-10] MEDS: DULoxetine HCL 30 MG CAPSULE.DR PO SCH (13:10)
[2021-08-10 15:47] VITALS: BP 126/57
[2021-08-10] MEDS: MIRTAZAPINE 30 MG TABLET PO SCH (19:51)
[2021-08-10] MEDS: lamoTRIgine 100 MG TABLET. PO SCH (19:52)
[2021-08-10] MEDS: traZODone 100 MG TABLET. PO SCH (19:52)
[2021-08-10] MEDS: ATORVASTATIN CALCIUM 20 MG TABLET PO SCH (19:52)
[2021-08-10] MEDS: oxyCODONE/APAP 10/325 1 TAB TABLET PO PRN (19:54)
--- NOTE | 2021-08-10 23:00 | PN ---
DATE: 08/10/2021 SUBJECTIVE: The patient was seen today, met with the staff. Chart reviewed and covering for Dr. Jacobs. Staff reports no major behavior problems, stays in bed most of the time. Staff also witnessed he was hitting himself in the head repeatedly, yelling out and also was tearful. The patient is still feeling hopeless and worthless and making suicidal statements, not wanting to live anymore. OBSERVATION: VITAL SIGNS: Temperature 97.7, blood pressure 128/90, pulse 114, respirations 22, O2 sat 98%. GENERAL: Slept about 5 hours last night. The patient's appetite fluctuates. CURRENT MEDICATIONS: The patient's current medications include Cymbalta 30 mg daily and 60 mg daily, bupropion 150 mg daily, Lamictal 150 mg daily, Abilify 10 mg daily, trazodone 100 mg at night and mirtazapine 30 mg at night. The patient is not having any side effects to medications. LABORATORY DATA: The patient's lab reviewed. ASSESSMENT: 1. Major depressive disorder, recurrent, moderate to severe. 2. Generalized anxiety disorder. PLAN: To continue with treatment. LENGTH OF STAY: Three to five days. MAREN/MILENA/LETICIA DR: MAREN/luis TID: [id number]
[2021-08-11] MEDS: oxyCODONE/APAP 10/325 1 TAB TABLET PO PRN ×2 (03:45→20:01)
[2021-08-11 05:46] VITALS: BP 124/87
[2021-08-11] MEDS: INSULIN LISPRO 300 UNITS/3 ML VIAL. SQ SCH ×3 (08:00→17:00)
[2021-08-11] MEDS: ASPIRIN CHEWABLE 81 MG TABLET. PO SCH (08:40)
[2021-08-11] MEDS: FUROSEMIDE 40 MG TABLET PO SCH (08:40)
[2021-08-11] MEDS: MULTIVITAMIN with MINERAL TABLET. PO SCH (08:40)
[2021-08-11] MEDS: DULoxetine HCL 60 MG CAPSULE.DR PO SCH (08:40)
[2021-08-11] MEDS: CARVEDILOL 12.5 MG TABLET PO SCH ×2 (08:40→18:33)
[2021-08-11] MEDS: NEOMY/BACITR/POLYMYXIN OINT PACKET. TP SCH ×2 (08:40→19:59)
[2021-08-11] MEDS: DOCUSATE SODIUM 100 MG CAPSULE PO SCH ×2 (08:40→19:58)
[2021-08-11] MEDS: LINAGLIPTIN 5 MG TABLET PO SCH (08:40)
[2021-08-11] MEDS: CLOPIDOGREL BISULFATE 75 MG TABLET PO SCH (08:40)
[2021-08-11] MEDS: ARIPiprazole 10 MG TABLET PO SCH (08:40)
[2021-08-11] MEDS: buPROPion XL 150 MG TAB.ER.24H PO SCH (08:41)
[2021-08-11] MEDS: NYSTATIN TOPICAL POWDER 15GM BOTTLE. TP SCH ×2 (08:41→20:00)
[2021-08-11] MEDS: POTASSIUM CHLORIDE 10 MEQ TABLET.ER. PO SCH (08:41)
[2021-08-11] MEDS: DULoxetine HCL 30 MG CAPSULE.DR PO SCH (12:40)
[2021-08-11 15:40] VITALS: BP 134/68
[2021-08-11] MEDS: MIRTAZAPINE 30 MG TABLET PO SCH (19:58)
[2021-08-11] MEDS: lamoTRIgine 100 MG TABLET. PO SCH (19:59)
[2021-08-11] MEDS: traZODone 100 MG TABLET. PO SCH (19:59)
[2021-08-11] MEDS: ATORVASTATIN CALCIUM 20 MG TABLET PO SCH (19:59)
--- NOTE | 2021-08-11 21:39 | PDOC ---
Exam Note: Josef Note: Please also refer to the separate dictated note~for this date of service dictated separately.~Patient seen individually. Discussed the patient with Nursing staff reviewed the chart.~Reviewed interim history and current functioning. Reviewed vital signs,~Labs/ Radiology~and current medications noted below. Continue current treatment with the changes noted in the dictated addendum note Assessment: Vital Signs/I&O: Vital Signs Date Time Temp Pulse Resp B/P (MAP) Pulse Ox O2 Delivery O2 Flow Rate FiO2 08/11/21 18:33 114 134/68 08/11/21 15:40 97.0 20 100 08/09/21 05:36 Room Air I & O 08/10/21 08/10/21 08/11/21 14:59 22:59 06:59 Intake Total 720 ml 600 ml Balance 720 ml 600 ml Labs: Laboratory Tests Test 08/11/21 07:32 08/11/21 11:53 08/11/21 16:56 08/11/21 19:50 Glucose (Fingerstick) 155 mg/dL (70-99) H 148 mg/dL (70-99) H 194 mg/dL (70-99) H 178 mg/dL (70-99) H Current Medications: I have reviewed the current psychotropics carefully including drug interactions. Risk benefit ratio favors no change other than as noted in my dictated progress note. Diagnosis: Problems: (1) Impulse control disorder, unspecified (2) Anxiety disorder, unspecified (3) Major depressive disorder, recurrent ESE LEVI MD Aug 11, 2021 21:39
[2021-08-12] MEDS: traZODone 50 MG TABLET. PO PRN ×2 (00:10→19:53)
[2021-08-12 06:00] VITALS: BP 127/77
[2021-08-12 07:13] LABS: BASO % 0 % (0-3); EOS # 0.1 x10^3/uL (0.0-0.7); EOS % 2 % (0-3); HEMATOCRIT 33.6 % (39.0-53.0); HEMOGLOBIN 10.7 g/dL (13.0-17.5); LYMPH # 0.6 x10^3/uL (1.0-4.8); LYMPH % 8 % (24-48); MEAN CORPUSCULAR HEMOGLOBIN 31 pg (25-35); MEAN CORPUSCULAR HGB CONC 32 g/dL (31-37); MEAN CORPUSCULAR VOLUME 97 fL (79-100); MONO # 0.8 x10^3/uL (0.0-1.1); MONO % 11 % (0-9); NEUT # 5.6 x10^3uL (1.8-7.7); NEUT % 79 % (31-73); PLATELET COUNT 309 x10^3/uL (140-400); RED BLOOD COUNT 3.47 x10^6/uL (4.30-5.70); RED CELL DISTRIBUTION WIDTH 16.8 % (11.5-14.5); WHITE BLOOD COUNT 7.1 x10^3/uL (4.0-11.0)
[2021-08-12 07:31] LABS: ALBUMIN 2.5 g/dL (3.4-5.0); ALBUMIN/GLOBULIN RATIO 0.6 (1.0-1.7); CALCIUM 8.5 mg/dL (8.5-10.1); CREATININE 1.2 mg/dL (0.7-1.3); GFR 60.4; POTASSIUM 4.5 mmol/L (3.5-5.1); TOTAL BILIRUBIN 0.5 mg/dL (0.2-1.0); TOTAL PROTEIN 6.6 g/dL (6.4-8.2)
[2021-08-12] MEDS: INSULIN LISPRO 300 UNITS/3 ML VIAL. SQ SCH ×3 (08:00→17:00)
[2021-08-12] MEDS: NEOMY/BACITR/POLYMYXIN OINT PACKET. TP SCH ×2 (08:45→19:54)
[2021-08-12] MEDS: DOCUSATE SODIUM 100 MG CAPSULE PO SCH ×2 (08:46→19:54)
[2021-08-12] MEDS: NYSTATIN TOPICAL POWDER 15GM BOTTLE. TP SCH ×2 (08:46→19:54)
[2021-08-12] MEDS: POTASSIUM CHLORIDE 10 MEQ TABLET.ER. PO SCH (08:46)
[2021-08-12] MEDS: LINAGLIPTIN 5 MG TABLET PO SCH (08:46)
[2021-08-12] MEDS: CARVEDILOL 12.5 MG TABLET PO SCH ×2 (08:46→17:32)
[2021-08-12] MEDS: ARIPiprazole 10 MG TABLET PO SCH (08:46)
[2021-08-12] MEDS: MULTIVITAMIN with MINERAL TABLET. PO SCH (08:46)
[2021-08-12] MEDS: ASPIRIN CHEWABLE 81 MG TABLET. PO SCH (08:46)
[2021-08-12] MEDS: CLOPIDOGREL BISULFATE 75 MG TABLET PO SCH (08:46)
[2021-08-12] MEDS: buPROPion XL 150 MG TAB.ER.24H PO SCH (08:46)
[2021-08-12] MEDS: FUROSEMIDE 40 MG TABLET PO SCH (08:46)
[2021-08-12] MEDS: DULoxetine HCL 60 MG CAPSULE.DR PO SCH (08:46)
[2021-08-12] MEDS: DULoxetine HCL 30 MG CAPSULE.DR PO SCH (12:46)
--- NOTE | 2021-08-12 13:23 | PSYEV ---
DATE OF SERVICE: 08/05/2021 PSYCHIATRIC EVALUATION HISTORY OF PRESENT ILLNESS: This 66-year-old male was readmitted to [facility] from the medical floor where he was kept under observation after he turned COVID-19 positive. The patient was originally admitted to the unit on 06/19/2021 from [facility] for not eating, not following the guidelines for his diabetes, putting himself on the floor, verbally aggressive and also being depressed and not sleeping at night. The patient's behavior has improved recently, but still having problems with insomnia, high level of anxiety, feeling helpless and hopeless and also having multiple medical issues including obesity and also his inability to walk because he has open wound on his heels. The patient was continued on his medications. The patient continued all the medications that he was on prior to discharge to medical floor. MENTAL STATUS EXAMINATION: The patient appeared to be of his stated age, casually dressed, withdrawn, but appropriate, able to make eye contact. Able to hold a reasonable conversation. The patient's speech was clear, spontaneous with normal rate and rhythm. His affect and mood showed he is somewhat withdrawn, still depressed, anxious, having difficulty going through his problems and also not able to sleep well at night. The patient currently not exhibiting any psychotic symptoms. He is oriented to time, place and person. His memory is intact for both past and present. Judgment fair. Insight minimal. ADMITTING DIAGNOSES: AXIS I: 1. Major depressive disorder, recurrent, without psychotic features. 2. Generalized anxiety disorder. AXIS II: None. AXIS III: Pressure ulcer, right heel; history of cerebral infarction, diabetes mellitus, bilateral osteoarthritis of knees, CHF, atherosclerotic heart disease, chronic kidney disease stage III, obesity, hypertension. INITIAL TREATMENT PLAN: The patient will continue with the current treatment plan including individual therapy, group therapy, activity therapy and continue on his medications. LENGTH OF STAY: [address]: Gregory TID: [id number]
[2021-08-12 15:44] VITALS: BP 113/78
[2021-08-12] MEDS: ATORVASTATIN CALCIUM 20 MG TABLET PO SCH (19:53)
[2021-08-12] MEDS: lamoTRIgine 100 MG TABLET. PO SCH (19:53)
[2021-08-12] MEDS: oxyCODONE/APAP 10/325 1 TAB TABLET PO PRN (19:54)
[2021-08-12] MEDS: MIRTAZAPINE 30 MG TABLET PO SCH (19:54)
[2021-08-12] MEDS: traZODone 100 MG TABLET. PO SCH (19:54)
--- NOTE | 2021-08-12 21:32 | PDOC ---
Exam Note: Josef Note: Please also refer to the separate dictated note~for this date of service dictated separately.~Patient seen individually. Discussed the patient with Nursing staff reviewed the chart.~Reviewed interim history and current functioning. Reviewed vital signs,~Labs/ Radiology~and current medications noted below. Continue current treatment with the changes noted in the dictated addendum note Assessment: Vital Signs/I&O: Vital Signs Date Time Temp Pulse Resp B/P (MAP) Pulse Ox O2 Delivery O2 Flow Rate FiO2 08/12/21 17:32 95 113/78 08/12/21 15:44 97.3 20 97 08/09/21 05:36 Room Air I & O 08/11/21 08/11/21 08/12/21 15:00 23:00 07:00 Intake Total 320 ml 220 ml Balance 320 ml 220 ml Labs: Laboratory Tests Test 08/12/21 06:34 08/12/21 07:39 08/12/21 11:50 08/12/21 16:54 White Blood Count 7.1 x10^3/uL (4.0-11.0) Red Blood Count 3.47 x10^6/uL (4.30-5.70) L Hemoglobin 10.7 g/dL (13.0-17.5) L Hematocrit 33.6 % (39.0-53.0) L Mean Corpuscular Volume 97 fL (79-100) Mean Corpuscular Hemoglobin 31 pg (25-35) Mean Corpuscular Hemoglobin Concent 32 g/dL (31-37) Red Cell Distribution Width 16.8 % (11.5-14.5) H Platelet Count 309 x10^3/uL (140-400) Neutrophils (%) (Auto) 79 % (31-73) H Lymphocytes (%) (Auto) 8 % (24-48) L Monocytes (%) (Auto) 11 % (0-9) H Eosinophils (%) (Auto) 2 % (0-3) Basophils (%) (Auto) 0 % (0-3) Neutrophils # (Auto) 5.6 x10^3uL (1.8-7.7) Lymphocytes # (Auto) 0.6 x10^3/uL (1.0-4.8) L Monocytes # (Auto) 0.8 x10^3/uL (0.0-1.1) Eosinophils # (Auto) 0.1 x10^3/uL (0.0-0.7) Basophils # (Auto) 0.0 x10^3/uL (0.0-0.2) Sodium Level 140 mmol/L (136-145) Potassium Level 4.5 mmol/L (3.5-5.1) Chloride Level 105 mmol/L (98-107) Carbon Dioxide Level 26 mmol/L (21-32) Anion Gap 9 (6-14) Blood Urea Nitrogen 31 mg/dL (8-26) H Creatinine 1.2 mg/dL (0.7-1.3) Estimated GFR (Cockcroft-Gault) 60.4 BUN/Creatinine Ratio 26 (6-20) H Glucose Level 163 mg/dL (70-99) H Calcium Level 8.5 mg/dL (8.5-10.1) Total Bilirubin 0.5 mg/dL (0.2-1.0) Aspartate Amino Transferase (AST) 17 U/L (15-37) Alanine Aminotransferase (ALT) 24 U/L (16-63) Alkaline Phosphatase 78 U/L (46-116) Total Protein 6.6 g/dL (6.4-8.2) Albumin 2.5 g/dL (3.4-5.0) L Albumin/Globulin Ratio 0.6 (1.0-1.7) L Glucose (Fingerstick) 156 mg/dL (70-99) H 157 mg/dL (70-99) H 166 mg/dL (70-99) H Test 08/12/21 19:01 Glucose (Fingerstick) 153 mg/dL (70-99) H Current Medications: Meds: Laboratory Tests Test 08/12/21 06:34 08/12/21 07:39 08/12/21 11:50 08/12/21 16:54 White Blood Count 7.1 x10^3/uL Red Blood Count 3.47 x10^6/uL Hemoglobin 10.7 g/dL Hematocrit 33.6 % Mean Corpuscular Volume 97 fL Mean Corpuscular Hemoglobin 31 pg Mean Corpuscular Hemoglobin Concent 32 g/dL Red Cell Distribution Width 16.8 % Platelet Count 309 x10^3/uL Neutrophils (%) (Auto) 79 % Lymphocytes (%) (Auto) 8 % Monocytes (%) (Auto) 11 % Eosinophils (%) (Auto) 2 % Basophils (%) (Auto) 0 % Neutrophils # (Auto) 5.6 x10^3uL Lymphocytes # (Auto) 0.6 x10^3/uL Monocytes # (Auto) 0.8 x10^3/uL Eosinophils # (Auto) 0.1 x10^3/uL Basophils # (Auto) 0.0 x10^3/uL Sodium Level 140 mmol/L Potassium Level 4.5 mmol/L Chloride Level 105 mmol/L Carbon Dioxide Level 26 mmol/L Anion Gap 9 Blood Urea Nitrogen 31 mg/dL Creatinine 1.2 mg/dL Estimated GFR (Cockcroft-Gault) 60.4 BUN/Creatinine Ratio 26 Glucose Level 163 mg/dL Calcium Level 8.5 mg/dL Total Bilirubin 0.5 mg/dL Aspartate Amino Transf (AST/SGOT) 17 U/L Alanine Aminotransferase (ALT/SGPT) 24 U/L Alkaline Phosphatase 78 U/L Total Protein 6.6 g/dL Albumin 2.5 g/dL Albumin/Globulin Ratio 0.6 Glucose (Fingerstick) 156 mg/dL 157 mg/dL 166 mg/dL Test 08/12/21 19:01 Glucose (Fingerstick) 153 mg/dL Current Medications Medications (Trade) Dose Ordered Sig/Nicky Route PRN Reason Start Time Stop Time Status Last Admin Dose Admin Acetaminophen (Tylenol) 650 mg PRN Q6HRS PRN PO mild pain/temp >100.3 F 08/05/21 16:30 08/05/21 20:32 Aripiprazole (Abilify) 10 mg DAILY PO 08/06/21 09:00 08/12/21 08:46 Aspirin (Aspirin Chewable) 81 mg DAILY PO 08/06/21 09:00 08/12/21 08:46 Bupropion HCl (Wellbutrin Xl) 150 mg DAILY PO 08/06/21 09:00 08/12/21 08:46 Clopidogrel Bisulfate (Plavix) 75 mg DAILY PO 08/06/21 09:00 08/12/21 08:46 Docusate Sodium (Colace) 100 mg BID PO 08/05/21 21:00 08/12/21 19:54 Duloxetine HCl (Cymbalta) 30 mg AFTRNOON PO 08/06/21 13:00 08/12/21 12:46 Duloxetine HCl (Cymbalta) 60 mg DAILY PO 08/06/21 09:00 08/12/21 08:46 Furosemide (Lasix) 40 mg DAILY PO 08/06/21 09:00 08/12/21 08:46 Lamotrigine (LaMICtal) 150 mg QHS PO 08/05/21 21:00 08/12/21 19:53 Linagliptin (Tradjenta) 5 mg DAILY PO 08/06/21 09:00 08/12/21 08:46 Al Hydroxide/Mg Hydroxide (Mylanta Plus Xs) 15 ml PRN AFTMEALHC PRN PO DYSPEPSIA 08/05/21 16:30 Magnesium Citrate (Citroma) 296 ml PRN 1X PRN PO 2nd choice constipation 08/05/21 16:30 08/12/21 07:19 DC 08/11/21 18:33 Mirtazapine (Remeron) 30 mg HS PO 08/05/21 21:00 08/12/21 19:54 Neomycin/ Polymyxin/ Bacitracin (Triple Antibiotic Ointment) 1 pkt BID TP 08/05/21 21:00 08/12/21 19:54 Nystatin (Nystop) 1 neelima BID TP 08/05/21 21:00 08/12/21 19:54 Olanzapine (ZyPREXA ZYDIS) 2.5 mg PRN Q2HRS PRN PO psychosis/agitation 08/05/21 16:30 08/12/21 19:53 Oxycodone/ Acetaminophen (Percocet 10/325) 1 tab PRN Q6HRS PRN PO MODERATE TO SEVERE PAIN 08/05/21 16:30 08/12/21 19:54 Potassium Chloride (Klor-Con) 30 meq DAILY PO 08/06/21 09:00 08/12/21 08:46 Trazodone HCl (Desyrel) 50 mg PRN QHS PRN PO INSOMNIA 08/05/21 16:30 08/12/21 19:53 Trazodone HCl (Desyrel) 100 mg HS PO 08/05/21 21:00 08/12/21 19:54 Trolamine Salicylate (Myoplex) 1 neelima PRN QID PRN TP muscle pain 08/05/21 16:30 UNV Atorvastatin Calcium (Lipitor) 80 mg QHS PO 08/05/21 21:00 08/12/21 19:53 Carvedilol (Coreg) 37.5 mg BIDWMEALS PO 08/05/21 17:00 08/12/21 17:32 Non-Formulary Medication (Insulin Lispro (Humalog)) 0-5 Units, low dose scale. TIDWMEALS SQ 08/05/21 17:00 UNV Multivitamins/ Calcium (Thera-M Plus) 1 tab DAILY PO 08/06/21 09:00 08/12/21 08:46 Multi-Ingredient Ointment (Analgesic [place]) 1 neelima PRN QID PRN TP MUSCLE PAIN 08/05/21 17:00 Insulin Human Lispro (HumaLOG) 0-5 UNITS TIDWMEALS SQ 08/05/21 17:00 08/10/21 13:08 Dextrose (Dextrose 50%-Water Syringe) 12.5 gm PRN Q15MIN PRN IV SEE COMMENTS 08/05/21 17:00 Magnesium Hydroxide (Milk Of Magnesia) 2,400 mg PRN QHS PRN PO CONSTIPATION 08/08/21 22:15 08/10/21 08:12 Senna/Docusate Sodium (Senna Plus) 1 tab PRN BID PRN PO CONSTIPATION 08/12/21 15:30 I have reviewed the current psychotropics carefully including drug interactions. Risk benefit ratio favors no change other than as noted in my dictated progress note. Diagnosis: Problems: (1) Impulse control disorder, unspecified (2) Anxiety disorder, unspecified (3) Major depressive disorder, recurrent AMITA,ESE Spivey MD Aug 12, 2021 21:32
[2021-08-13 06:08] VITALS: BP 126/76
--- NOTE | 2021-08-13 07:52 | PDOC ---
Exam Note: Josef Note: This note is a late entry for 08/11/2021 covers elements not covered in my initial note. Subjective: The patient was seen individually on 08/11/2021, discussed and reviewed the chart with Julia MODI. Dr. Means had covered for me for the past two weeks and I have reviewed information, notes and records by Dr. Means. The unit is currently on lockdown for any admissions due to Covid-19 positive status. The patient slept 4-1/4 hours previous night. he has been somewhat difficult, repeatedly taking his bandage off, picking at his scabs on the lower extremity. Labs are to be checked morning of Aug 12. 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 No injury was noted. Placement is being sought actively but no options available at this time, because some of his impulsive behaviors. He went back to bed after breakfast, yelling at himself and angry that he fell off the chair. I met with him individually on rounds in his room in the evening. The patient readily recognized me. Review of Systems: Impaired ambulation, in wheelchair. He has chronic pain, itching lower extremity, complains of some irritation and wanting throat lozenges. We will defer nursing staff for this. No CV, , eye, ENT system symptoms on review. Mental Status Exam: The patient is awake, alert and oriented. Speech is coherent. He was apologetic about falling off the chair. Abstraction fair. Computation impaired. Language function intact. Mood and affect somewhat anxious, dysphoric at times. No active psychotic symptoms, suicidal or homicidal ideation. Laboratory Data: Reviewed. Impression: Major depressive disorder, recurrent, rule out psychotic features. Anxiety disorder unspecified. Plan: I have carefully reviewed the patients current psychotropics as mentioned in my initial note. Reviewed drug interactions and risk-benefit r atio. He is on Wellbutrin, trazodone, Cymbalta; Abilify as an augmentation to his antidepressants, Lamictal as mood stabilizer, Remeron and Zyprexa p.r.n. We may consider increasing Lamictal as a mood stabilizer for his bipolar 2 disorder depending on how he does. Assessment: Vital Signs/I&O: Vital Signs Date Time Temp Pulse Resp B/P (MAP) Pulse Ox O2 Delivery O2 Flow Rate FiO2 08/13/21 06:08 97.3 98 20 126/76 (93) 96 Room Air I & O 08/12/21 08/12/21 08/13/21 15:00 23:00 07:00 Intake Total 480 ml 360 ml 0 ml Balance 480 ml 360 ml 0 ml Labs: Laboratory Tests Test 08/12/21 11:50 08/12/21 16:54 08/12/21 19:01 08/13/21 07:34 Glucose (Fingerstick) 157 mg/dL (70-99) H 166 mg/dL (70-99) H 153 mg/dL (70-99) H 150 mg/dL (70-99) H Current Medications: I have reviewed the current psychotropics carefully including drug interactions. Risk benefit ratio favors no change other than as noted in my dictated progress note. Diagnosis: Problems: (1) Impulse control disorder, unspecified (2) Anxiety disorder, unspecified (3) Major depressive disorder, recurrent ESE LEVI MD Aug 13, 2021 07:52
[2021-08-13] MEDS: INSULIN LISPRO 300 UNITS/3 ML VIAL. SQ SCH ×3 (08:00→17:00)
--- NOTE | 2021-08-13 08:13 | PDOC ---
Exam Note: Josef Note: This note is a late entry for 08/12/2021 covers elements not covered in my initial note. Subjective: The patient was seen individually on 08/12/2021, discussed and reviewed the chart with Julia MODI. The unit is currently on lockdown for any admissions due to Covid-19 positive status. The patient slept 1 hour previous night. Overall he is doing better. He has not thrown himself on the floor. He is quite constipated and reportedly dug himself out and has been started on senna for this. Review of Systems: Impaired ambulation, in wheelchair. Positive for pain, constipation and he complains of rotator cuff problems in his right arm. We will defer to Dr. Gandhi. No CV, , eye, ENT system symptoms on review. Mental Status Exam: The patient is reasonably oriented. Speech is coherent. Abstraction fair. Computation impaired. Language function intact. Attention span fair. Mood and affect improved. Laboratory Data: Reviewed. Impression: Major depressive disorder, recurrent, rule out psychotic features. Anxiety disorder unspecified. Plan: Prophylactically treat the patients constipation and rest unchanged for now. Assessment: Vital Signs/I&O: Vital Signs Date Time Temp Pulse Resp B/P (MAP) Pulse Ox O2 Delivery O2 Flow Rate FiO2 08/13/21 06:08 97.3 98 20 126/76 (93) 96 Room Air I & O 08/12/21 08/12/21 08/13/21 15:00 23:00 07:00 Intake Total 480 ml 360 ml 0 ml Balance 480 ml 360 ml 0 ml Labs: Laboratory Tests Test 08/12/21 11:50 08/12/21 16:54 08/12/21 19:01 08/13/21 07:34 Glucose (Fingerstick) 157 mg/dL (70-99) H 166 mg/dL (70-99) H 153 mg/dL (70-99) H 150 mg/dL (70-99) H Current Medications: I have reviewed the current psychotropics carefully including drug interactions. Risk benefit ratio favors no change other than as noted in my dictated progress note. Diagnosis: Problems: (1) Impulse control disorder, unspecified (2) Anxiety disorder, unspecified (3) Major depressive disorder, recurrent AMITAESE STANLEY MD Aug 13, 2021 08:13
[2021-08-13] MEDS: NYSTATIN TOPICAL POWDER 15GM BOTTLE. TP SCH ×2 (09:00→19:56)
[2021-08-13] MEDS: ARIPiprazole 10 MG TABLET PO SCH (09:03)
[2021-08-13] MEDS: CLOPIDOGREL BISULFATE 75 MG TABLET PO SCH (09:03)
[2021-08-13] MEDS: LINAGLIPTIN 5 MG TABLET PO SCH (09:03)
[2021-08-13] MEDS: ASPIRIN CHEWABLE 81 MG TABLET. PO SCH (09:03)
[2021-08-13] MEDS: DOCUSATE SODIUM 100 MG CAPSULE PO SCH ×2 (09:03→19:56)
[2021-08-13] MEDS: POTASSIUM CHLORIDE 10 MEQ TABLET.ER. PO SCH (09:04)
[2021-08-13] MEDS: MULTIVITAMIN with MINERAL TABLET. PO SCH (09:04)
[2021-08-13] MEDS: FUROSEMIDE 40 MG TABLET PO SCH (09:04)
[2021-08-13] MEDS: DULoxetine HCL 60 MG CAPSULE.DR PO SCH (09:04)
[2021-08-13] MEDS: buPROPion XL 150 MG TAB.ER.24H PO SCH (09:04)
[2021-08-13] MEDS: NEOMY/BACITR/POLYMYXIN OINT PACKET. TP SCH ×2 (09:05→19:56)
[2021-08-13] MEDS: CARVEDILOL 12.5 MG TABLET PO SCH ×2 (09:05→17:26)
[2021-08-13] MEDS: DULoxetine HCL 30 MG CAPSULE.DR PO SCH (13:00)
[2021-08-13 15:41] VITALS: BP 109/74
[2021-08-13] MEDS: lamoTRIgine 100 MG TABLET. PO SCH (19:55)
[2021-08-13] MEDS: ATORVASTATIN CALCIUM 20 MG TABLET PO SCH (19:55)
[2021-08-13] MEDS: MIRTAZAPINE 30 MG TABLET PO SCH (19:56)
[2021-08-13] MEDS: traZODone 100 MG TABLET. PO SCH (19:56)
[2021-08-13] MEDS: oxyCODONE/APAP 10/325 1 TAB TABLET PO PRN (20:01)
[2021-08-13] MEDS: traZODone 50 MG TABLET. PO PRN (20:01)
--- NOTE | 2021-08-13 21:27 | PDOC ---
Exam Note: Josef Note: Please also refer to the separate dictated note~for this date of service dictated separately.~Patient seen individually. Discussed the patient with Nursing staff reviewed the chart.~Reviewed interim history and current functioning. Reviewed vital signs,~Labs/ Radiology~and current medications noted below. Continue current treatment with the changes noted in the dictated addendum note Assessment: Vital Signs/I&O: Vital Signs Date Time Temp Pulse Resp B/P (MAP) Pulse Ox O2 Delivery O2 Flow Rate FiO2 08/13/21 17:26 93 109/74 08/13/21 15:41 97.6 20 95 08/13/21 06:08 Room Air I & O 08/12/21 08/12/21 08/13/21 15:00 23:00 07:00 Intake Total 480 ml 360 ml 0 ml Balance 480 ml 360 ml 0 ml Labs: Laboratory Tests Test 08/13/21 07:34 08/13/21 16:55 08/13/21 19:08 Glucose (Fingerstick) 150 mg/dL (70-99) H 164 mg/dL (70-99) H 144 mg/dL (70-99) H Current Medications: Meds: Laboratory Tests Test 08/13/21 07:34 08/13/21 16:55 08/13/21 19:08 Glucose (Fingerstick) 150 mg/dL 164 mg/dL 144 mg/dL Current Medications Medications (Trade) Dose Ordered Sig/Nicky Route PRN Reason Start Time Stop Time Status Last Admin Dose Admin Acetaminophen (Tylenol) 650 mg PRN Q6HRS PRN PO mild pain/temp >100.3 F 08/05/21 16:30 08/05/21 20:32 Aripiprazole (Abilify) 10 mg DAILY PO 08/06/21 09:00 08/13/21 09:03 Aspirin (Aspirin Chewable) 81 mg DAILY PO 08/06/21 09:00 08/13/21 09:03 Bupropion HCl (Wellbutrin Xl) 150 mg DAILY PO 08/06/21 09:00 08/13/21 09:04 Clopidogrel Bisulfate (Plavix) 75 mg DAILY PO 08/06/21 09:00 08/13/21 09:03 Docusate Sodium (Colace) 100 mg BID PO 08/05/21 21:00 08/13/21 19:56 Duloxetine HCl (Cymbalta) 30 mg AFTRNOON PO 08/06/21 13:00 08/13/21 13:00 Duloxetine HCl (Cymbalta) 60 mg DAILY PO 08/06/21 09:00 08/13/21 09:04 Furosemide (Lasix) 40 mg DAILY PO 08/06/21 09:00 08/13/21 09:04 Lamotrigine (LaMICtal) 150 mg QHS PO 08/05/21 21:00 08/13/21 19:55 Linagliptin (Tradjenta) 5 mg DAILY PO 08/06/21 09:00 08/13/21 09:03 Al Hydroxide/Mg Hydroxide (Mylanta Plus Xs) 15 ml PRN AFTMEALHC PRN PO DYSPEPSIA 08/05/21 16:30 Magnesium Citrate (Citroma) 296 ml PRN 1X PRN PO 2nd choice constipation 08/05/21 16:30 08/12/21 07:19 DC 08/11/21 18:33 Mirtazapine (Remeron) 30 mg HS PO 08/05/21 21:00 08/13/21 19:56 Neomycin/ Polymyxin/ Bacitracin (Triple Antibiotic Ointment) 1 pkt BID TP 08/05/21 21:00 08/13/21 19:56 Nystatin (Nystop) 1 neelima BID TP 08/05/21 21:00 08/13/21 19:56 Olanzapine (ZyPREXA ZYDIS) 2.5 mg PRN Q2HRS PRN PO psychosis/agitation 08/05/21 16:30 08/13/21 20:02 Oxycodone/ Acetaminophen (Percocet 10/325) 1 tab PRN Q6HRS PRN PO MODERATE TO SEVERE PAIN 08/05/21 16:30 08/13/21 20:01 Potassium Chloride (Klor-Con) 30 meq DAILY PO 08/06/21 09:00 08/13/21 09:04 Trazodone HCl (Desyrel) 50 mg PRN QHS PRN PO INSOMNIA 08/05/21 16:30 08/13/21 20:01 Trazodone HCl (Desyrel) 100 mg HS PO 08/05/21 21:00 08/13/21 19:56 Trolamine Salicylate (Myoplex) 1 neelima PRN QID PRN TP muscle pain 08/05/21 16:30 UNV Atorvastatin Calcium (Lipitor) 80 mg QHS PO 08/05/21 21:00 08/13/21 19:55 Carvedilol (Coreg) 37.5 mg BIDWMEALS PO 08/05/21 17:00 08/13/21 17:26 Non-Formulary Medication (Insulin Lispro (Humalog)) 0-5 Units, low dose scale. TIDWMEALS SQ 08/05/21 17:00 UNV Multivitamins/ Calcium (Thera-M Plus) 1 tab DAILY PO 08/06/21 09:00 08/13/21 09:04 Multi-Ingredient Ointment (Analgesic [place]) 1 neelima PRN QID PRN TP MUSCLE PAIN 08/05/21 17:00 Insulin Human Lispro (HumaLOG) 0-5 UNITS TIDWMEALS SQ 08/05/21 17:00 08/10/21 13:08 Dextrose (Dextrose 50%-Water Syringe) 12.5 gm PRN Q15MIN PRN IV SEE COMMENTS 08/05/21 17:00 Magnesium Hydroxide (Milk Of Magnesia) 2,400 mg PRN QHS PRN PO 1st choice CONSTIPATION 08/08/21 22:15 08/10/21 08:12 Senna/Docusate Sodium (Senna Plus) 1 tab PRN BID PRN PO 2nd choice CONSTIPATION 08/12/21 15:30 I have reviewed the current psychotropics carefully including drug interactions. Risk benefit ratio favors no change other than as noted in my dictated progress note. Diagnosis: Problems: (1) Impulse control disorder, unspecified (2) Anxiety disorder, unspecified (3) Major depressive disorder, recurrent AMITA,ESE Spivey MD Aug 13, 2021 21:27
[2021-08-14 06:05] VITALS: BP 137/86
--- NOTE | 2021-08-14 07:57 | PDOC ---
Exam Note: Josef Note: This note is a late entry for 08/13/2021 covers elements not covered in my initial note. Subjective: The patient was seen on telehealth rounds with Susi MODI on 08/13/2021, discussed and reviewed the chart with Irene MODI. The patient slept 6-1/4 hours previous night Overall he appeared somewhat helpless in the morning, did better later in the day. Oral appetite remains poor. Review of Systems: Impaired ambulation, in wheelchair. Positive for pain. No CV, , eye, ENT system symptoms on review. Mental Status Exam: The patient is awake, alert, oriented. He is very pleasant, cooperative, verbal, interactive. He feels he is doing better, still somewhat depressed and anxious. Speech is coherent. Abstraction fair. Computation impaired. Language function intact. Attention span fair. No suicidal or homicidal ideation. Laboratory Data: Reviewed. Impression: Major depressive disorder, recurrent, rule out psychotic features. Anxiety disorder unspecified. Plan: No change from initial note. Assessment: Vital Signs/I&O: Vital Signs Date Time Temp Pulse Resp B/P (MAP) Pulse Ox O2 Delivery O2 Flow Rate FiO2 08/14/21 06:05 97.1 108 22 137/86 (103) 98 08/13/21 06:08 Room Air I & O 08/13/21 08/13/21 08/14/21 15:00 23:00 07:00 Intake Total 120 ml 360 ml Balance 120 ml 360 ml Labs: Laboratory Tests Test 08/13/21 16:55 08/13/21 19:08 08/14/21 07:31 Glucose (Fingerstick) 164 mg/dL (70-99) H 144 mg/dL (70-99) H 134 mg/dL (70-99) H Current Medications: I have reviewed the current psychotropics carefully including drug interactions. Risk benefit ratio favors no change other than as noted in my dictated progress note. Diagnosis: Problems: (1) Impulse control disorder, unspecified (2) Anxiety disorder, unspecified (3) Major depressive disorder, recurrent ESE LEVI MD Aug 14, 2021 07:57
[2021-08-14] MEDS: INSULIN LISPRO 300 UNITS/3 ML VIAL. SQ SCH ×3 (08:00→16:47)
[2021-08-14] MEDS: NEOMY/BACITR/POLYMYXIN OINT PACKET. TP SCH ×2 (08:26→21:00)
[2021-08-14] MEDS: DULoxetine HCL 60 MG CAPSULE.DR PO SCH (08:27)
[2021-08-14] MEDS: LINAGLIPTIN 5 MG TABLET PO SCH (08:27)
[2021-08-14] MEDS: MULTIVITAMIN with MINERAL TABLET. PO SCH (08:27)
[2021-08-14] MEDS: DOCUSATE SODIUM 100 MG CAPSULE PO SCH ×2 (08:27→19:56)
[2021-08-14] MEDS: CARVEDILOL 12.5 MG TABLET PO SCH ×2 (08:27→17:07)
[2021-08-14] MEDS: POTASSIUM CHLORIDE 10 MEQ TABLET.ER. PO SCH (08:27)
[2021-08-14] MEDS: ARIPiprazole 10 MG TABLET PO SCH (08:27)
[2021-08-14] MEDS: ASPIRIN CHEWABLE 81 MG TABLET. PO SCH (08:27)
[2021-08-14] MEDS: buPROPion XL 150 MG TAB.ER.24H PO SCH (08:28)
[2021-08-14] MEDS: FUROSEMIDE 40 MG TABLET PO SCH (08:28)
[2021-08-14] MEDS: CLOPIDOGREL BISULFATE 75 MG TABLET PO SCH (08:28)
[2021-08-14] MEDS: NYSTATIN TOPICAL POWDER 15GM BOTTLE. TP SCH ×2 (08:28→21:00)
--- NOTE | 2021-08-14 12:46 | TX PLAN ---
Interdisciplinary Tx Plan Admission Information Aug 05, 2021 at 16:20 Legal Status (on Admission): Voluntary DPOA/Guardian Name: Son-Inocencio Maravilla (not enacted at this time as pt is a self sign) Contact Other Contact Name: Luanne Other Contact Verified Code Status: Full Code Allergies: Coded Allergies: No Known Drug Allergies (Unverified , 04/25/21) Diagnoses Primary Diagnosis: 1. Major depressive disorder, recurrent, moderate. 2. Generalized anxiety disorder. Reasons for Admission: Relation/conflict, Agitated, Depressed, Sig. Change Appetite, Anxiety/Panic, Suicidal ideation, Poor impulse control Problem in Patient's Words: I am terribly depressed and anxious. 08/07/21-Pt reports being very sad. Additional Admission Comments: Per intake pt is depressed, anxious, not eating to tank blood sugar to kill himself, put himself on the floor seven times over a weekend, verbally aggressive toward staff, SI, and texted his son expressing plan to end his life. 08/07/21-Pt reports being very sad. He has spent time in his bed as he has wounds on his legs that require special care. Some of the concern is if he is scratching himself intentionally to create the wounds or if the wounds are created by his skin sticking to his mattress and during transitions using the guerita lift. Problems Active Problems: Depression, anxiety, poor appetite, poor impulse control Inactive Problems: Suicidal ideation Pt Strengths/Limitations Ability for [place]: Poor Cognitive Functioning/Ability: Good Communication Skills/Ability: Good Financial Resources: Good Insight/Judgement: Poor Intellectual Ability: Good Physical Health: Poor Social Skills: Fair Stability in Family: Fair Stability in School/Work: Fair Verbal Skills: Good Discharge Criteria Discharge Criteria: Able meet basic life need, No need for close observ., Adequate arrangements @DC, Adequate self-care, Verbal commit med comply, Improved behavior, Improved mood/thought Other Discharge Comments: None at this time. Preliminary Discharge Plan Preliminary DC Plan: Current Living Arrange. Other Arrangements: Pt facility is looking for an alternate placement, but will accept him back Special Precautions Special Precautions: Other Fall Risk: High Other Precautions (specify): Pt has put himself on the floor. He offers little help during transfers. Initial D/C Plan Pt to return to [facility] should alternative placement not be found. Identified Discharge Needs: None at this time. Currently Utilized Resources Currently Utilized Resources/P: PCP-Dr. Daisy Sanchez Psychiatrist-Dr. Ashley Pichardo, ENVIRONMENT COORDINATOR DPOA (not currently enacted)-Son-Inocencio Maravilla Referrals Community Resources: None at this time. Identified Problems/Hx/Goals Objectives/Short-Term Goals Short Term Goals in Patient's: Need help feeling less depressed and anxious. Interventions/Frequency Staff Interventions/Frequency&: Psychiatry to assess pt three times per week for medication management. Nursing to assess behaviors, monitor medications, and complete 15 minute checks daily. Social work to see pt at least two times weekly to aid in return to placement. Activities to encourage pt to participate in group activities daily. 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 Education: Graduated from [employer] in [place], [place]. Pt reports having taken some classes at the [employer]. Community Follow-up PCP Community Provider/Family Inpu: Pt is a self sign and participated in the development of his own treatment plan. Treatment Plan Explained Patient/Tape Transferrer had this treatment plan explained to him/her as indicated by the signature below and has been given the opportunity to ask questions and make suggestions: Date: Patient/Tape Transferrer Signature: Status Update Update Pt has been eating 30% to 50% of his meals. His insulin is held most of the time as his intake does not require it. He is averaging 4.5 hours of sleep, but has been taking naps intermittently throughout the day. Pt often demonstrates attention seeking behaviors such as hitting himself and urinating on the floor. Pt further, appears labile and depressed making comments of helplessness and reporting feelings of depression about his condition. Staff have to provide ongoing encouragement to pt to complete as many tasks on his own as the goal is for pt to remain as independent as possible. Pt has ongoing treatment for wounds as he had dug his toenails into his skin causing many open and bloody soars that appear to be healing. Pt reports feeling better when he is able to be up and out of bed, socializing, and participating in groups on the unit. Pt medication, Lamictal, will be increased from 150mg to 200mg. Pt plan once stable is for a referral to be sent to [facility]. If he is not approved there, the plan is to send him back to [facility]. EVE CORONA Aug 14, 2021 12:46
[2021-08-14] MEDS: DULoxetine HCL 30 MG CAPSULE.DR PO SCH (14:34)
[2021-08-14 16:26] VITALS: BP 129/63
[2021-08-14] MEDS: ATORVASTATIN CALCIUM 20 MG TABLET PO SCH (19:55)
[2021-08-14] MEDS: traZODone 50 MG TABLET. PO PRN (19:55)
[2021-08-14] MEDS: lamoTRIgine 100 MG TABLET. PO SCH (19:55)
[2021-08-14] MEDS: MIRTAZAPINE 30 MG TABLET PO SCH (19:56)
[2021-08-14] MEDS: traZODone 100 MG TABLET. PO SCH (19:56)
[2021-08-14] MEDS: oxyCODONE/APAP 10/325 1 TAB TABLET PO PRN (19:56)
--- NOTE | 2021-08-14 22:09 | PDOC ---
Exam Note: Josef Note: Please also refer to the separate dictated note~for this date of service dictated separately.~Patient seen individually. Discussed the patient with Nursing staff reviewed the chart.~Reviewed interim history and current functioning. Reviewed vital signs,~Labs/ Radiology~and current medications noted below. Continue current treatment with the changes noted in the dictated addendum note Assessment: Vital Signs/I&O: Vital Signs Date Time Temp Pulse Resp B/P (MAP) Pulse Ox O2 Delivery O2 Flow Rate FiO2 08/14/21 17:07 98 129/63 08/14/21 16:26 97.6 20 96 Room Air I & O 08/13/21 08/13/21 08/14/21 15:00 23:00 07:00 Intake Total 120 ml 360 ml Balance 120 ml 360 ml Labs: Laboratory Tests Test 08/14/21 07:31 08/14/21 11:13 08/14/21 16:46 08/14/21 19:18 Glucose (Fingerstick) 134 mg/dL (70-99) H 177 mg/dL (70-99) H 143 mg/dL (70-99) H 156 mg/dL (70-99) H Current Medications: Meds: Laboratory Tests Test 08/14/21 07:31 08/14/21 11:13 08/14/21 16:46 08/14/21 19:18 Glucose (Fingerstick) 134 mg/dL 177 mg/dL 143 mg/dL 156 mg/dL Current Medications Medications (Trade) Dose Ordered Sig/Incky Route PRN Reason Start Time Stop Time Status Last Admin Dose Admin Acetaminophen (Tylenol) 650 mg PRN Q6HRS PRN PO mild pain/temp >100.3 F 08/05/21 16:30 08/05/21 20:32 Aripiprazole (Abilify) 10 mg DAILY PO 08/06/21 09:00 08/14/21 08:27 Aspirin (Aspirin Chewable) 81 mg DAILY PO 08/06/21 09:00 08/14/21 08:27 Bupropion HCl (Wellbutrin Xl) 150 mg DAILY PO 08/06/21 09:00 08/14/21 08:28 Clopidogrel Bisulfate (Plavix) 75 mg DAILY PO 08/06/21 09:00 08/14/21 08:28 Docusate Sodium (Colace) 100 mg BID PO 08/05/21 21:00 08/14/21 19:56 Duloxetine HCl (Cymbalta) 30 mg AFTRNOON PO 08/06/21 13:00 08/14/21 14:34 Duloxetine HCl (Cymbalta) 60 mg DAILY PO 08/06/21 09:00 08/14/21 08:27 Furosemide (Lasix) 40 mg DAILY PO 08/06/21 09:00 08/14/21 08:28 Lamotrigine (LaMICtal) 150 mg QHS PO 08/05/21 21:00 08/14/21 10:06 DC 08/13/21 19:55 Linagliptin (Tradjenta) 5 mg DAILY PO 08/06/21 09:00 08/14/21 08:27 Al Hydroxide/Mg Hydroxide (Mylanta Plus Xs) 15 ml PRN AFTMEALHC PRN PO DYSPEPSIA 08/05/21 16:30 Magnesium Citrate (Citroma) 296 ml PRN 1X PRN PO 2nd choice constipation 08/05/21 16:30 08/12/21 07:19 DC 08/11/21 18:33 Mirtazapine (Remeron) 30 mg HS PO 08/05/21 21:00 08/14/21 19:56 Neomycin/ Polymyxin/ Bacitracin (Triple Antibiotic Ointment) 1 pkt BID TP 08/05/21 21:00 08/14/21 08:26 Nystatin (Nystop) 1 neelima BID TP 08/05/21 21:00 08/14/21 08:28 Olanzapine (ZyPREXA ZYDIS) 2.5 mg PRN Q2HRS PRN PO psychosis/agitation 08/05/21 16:30 08/14/21 19:56 Oxycodone/ Acetaminophen (Percocet 10/325) 1 tab PRN Q6HRS PRN PO MODERATE TO SEVERE PAIN 08/05/21 16:30 08/14/21 19:56 Potassium Chloride (Klor-Con) 30 meq DAILY PO 08/06/21 09:00 08/14/21 08:27 Trazodone HCl (Desyrel) 50 mg PRN QHS PRN PO INSOMNIA 08/05/21 16:30 08/14/21 19:55 Trazodone HCl (Desyrel) 100 mg HS PO 08/05/21 21:00 08/14/21 19:56 Trolamine Salicylate (Myoplex) 1 neelima PRN QID PRN TP muscle pain 08/05/21 16:30 UNV Atorvastatin Calcium (Lipitor) 80 mg QHS PO 08/05/21 21:00 08/14/21 19:55 Carvedilol (Coreg) 37.5 mg BIDWMEALS PO 08/05/21 17:00 08/14/21 17:07 Non-Formulary Medication (Insulin Lispro (Humalog)) 0-5 Units, low dose scale. TIDWMEALS SQ 08/05/21 17:00 UNV Multivitamins/ Calcium (Thera-M Plus) 1 tab DAILY PO 08/06/21 09:00 08/14/21 08:27 Multi-Ingredient Ointment (Analgesic [place]) 1 neelima PRN QID PRN TP MUSCLE PAIN 08/05/21 17:00 Insulin Human Lispro (HumaLOG) 0-5 UNITS TIDWMEALS SQ 08/05/21 17:00 08/10/21 13:08 Dextrose (Dextrose 50%-Water Syringe) 12.5 gm PRN Q15MIN PRN IV SEE COMMENTS 08/05/21 17:00 Magnesium Hydroxide (Milk Of Magnesia) 2,400 mg PRN QHS PRN PO 1st choice CONSTIPATION 08/08/21 22:15 08/10/21 08:12 Senna/Docusate Sodium (Senna Plus) 1 tab PRN BID PRN PO 2nd choice CONSTIPATION 08/12/21 15:30 Lamotrigine (LaMICtal) 200 mg QHS PO 08/14/21 21:00 08/14/21 19:55 Current Medications Medications (Trade) Dose Ordered Sig/Nicky Route PRN Reason Start Time Stop Time Status Last Admin Dose Admin Lamotrigine (LaMICtal) 200 mg QHS PO 08/14/21 21:00 08/14/21 19:55 I have reviewed the current psychotropics carefully including drug interactions. Risk benefit ratio favors no change other than as noted in my dictated progress note. Diagnosis: Problems: (1) Impulse control disorder, unspecified (2) Anxiety disorder, unspecified (3) Major depressive disorder, recurrent AMITA,ESE Spivey MD Aug 14, 2021 22:09
[2021-08-15 06:00] VITALS: BP 134/80
[2021-08-15] MEDS: INSULIN LISPRO 300 UNITS/3 ML VIAL. SQ SCH ×3 (08:00→17:00)
[2021-08-15] MEDS: CARVEDILOL 12.5 MG TABLET PO SCH ×2 (08:29→17:31)
[2021-08-15] MEDS: buPROPion XL 150 MG TAB.ER.24H PO SCH (08:30)
[2021-08-15] MEDS: POTASSIUM CHLORIDE 10 MEQ TABLET.ER. PO SCH (08:30)
[2021-08-15] MEDS: DOCUSATE SODIUM 100 MG CAPSULE PO SCH ×2 (08:30→19:43)
[2021-08-15] MEDS: NYSTATIN TOPICAL POWDER 15GM BOTTLE. TP SCH ×2 (08:30→19:44)
[2021-08-15] MEDS: NEOMY/BACITR/POLYMYXIN OINT PACKET. TP SCH ×2 (08:30→19:44)
[2021-08-15] MEDS: FUROSEMIDE 40 MG TABLET PO SCH (08:30)
[2021-08-15] MEDS: MULTIVITAMIN with MINERAL TABLET. PO SCH (08:30)
[2021-08-15] MEDS: CLOPIDOGREL BISULFATE 75 MG TABLET PO SCH (08:30)
[2021-08-15] MEDS: DULoxetine HCL 60 MG CAPSULE.DR PO SCH (08:30)
[2021-08-15] MEDS: LINAGLIPTIN 5 MG TABLET PO SCH (08:30)
[2021-08-15] MEDS: ARIPiprazole 10 MG TABLET PO SCH (08:30)
[2021-08-15] MEDS: ASPIRIN CHEWABLE 81 MG TABLET. PO SCH (08:31)
[2021-08-15] MEDS: DULoxetine HCL 30 MG CAPSULE.DR PO SCH (13:55)
[2021-08-15 15:48] VITALS: BP 100/64
[2021-08-15] MEDS: traZODone 100 MG TABLET. PO SCH (19:42)
[2021-08-15] MEDS: ATORVASTATIN CALCIUM 20 MG TABLET PO SCH (19:42)
[2021-08-15] MEDS: oxyCODONE/APAP 10/325 1 TAB TABLET PO PRN (19:42)
[2021-08-15] MEDS: MIRTAZAPINE 30 MG TABLET PO SCH (19:42)
[2021-08-15] MEDS: lamoTRIgine 100 MG TABLET. PO SCH (19:43)
--- NOTE | 2021-08-15 21:51 | PDOC ---
Exam Note: Josef Note: Please also refer to the separate dictated note~for this date of service dictated separately.~Patient seen individually. Discussed the patient with Nursing staff reviewed the chart.~Reviewed interim history and current functioning. Reviewed vital signs,~Labs/ Radiology~and current medications noted below. Continue current treatment with the changes noted in the dictated addendum note Assessment: Vital Signs/I&O: Vital Signs Date Time Temp Pulse Resp B/P (MAP) Pulse Ox O2 Delivery O2 Flow Rate FiO2 08/15/21 17:31 94 100/64 08/15/21 15:48 97.2 20 98 Room Air I & O 08/14/21 08/14/21 08/15/21 15:00 23:00 07:00 Intake Total 60 ml 600 ml Balance 60 ml 600 ml Labs: Laboratory Tests Test 08/15/21 07:55 08/15/21 16:57 08/15/21 19:06 Glucose (Fingerstick) 132 mg/dL (70-99) H 159 mg/dL (70-99) H 167 mg/dL (70-99) H Current Medications: Meds: Laboratory Tests Test 08/15/21 07:55 08/15/21 16:57 08/15/21 19:06 Glucose (Fingerstick) 132 mg/dL 159 mg/dL 167 mg/dL Current Medications Medications (Trade) Dose Ordered Sig/Nicky Route PRN Reason Start Time Stop Time Status Last Admin Dose Admin Acetaminophen (Tylenol) 650 mg PRN Q6HRS PRN PO mild pain/temp >100.3 F 08/05/21 16:30 08/05/21 20:32 Aripiprazole (Abilify) 10 mg DAILY PO 08/06/21 09:00 08/15/21 08:30 Aspirin (Aspirin Chewable) 81 mg DAILY PO 08/06/21 09:00 08/15/21 08:31 Bupropion HCl (Wellbutrin Xl) 150 mg DAILY PO 08/06/21 09:00 08/15/21 08:30 Clopidogrel Bisulfate (Plavix) 75 mg DAILY PO 08/06/21 09:00 08/15/21 08:30 Docusate Sodium (Colace) 100 mg BID PO 08/05/21 21:00 08/15/21 19:43 Duloxetine HCl (Cymbalta) 30 mg AFTRNOON PO 08/06/21 13:00 08/15/21 13:55 Duloxetine HCl (Cymbalta) 60 mg DAILY PO 08/06/21 09:00 08/15/21 08:30 Furosemide (Lasix) 40 mg DAILY PO 08/06/21 09:00 08/15/21 08:30 Lamotrigine (LaMICtal) 150 mg QHS PO 08/05/21 21:00 08/14/21 10:06 DC 08/13/21 19:55 Linagliptin (Tradjenta) 5 mg DAILY PO 08/06/21 09:00 08/15/21 08:30 Al Hydroxide/Mg Hydroxide (Mylanta Plus Xs) 15 ml PRN AFTMEALHC PRN PO DYSPEPSIA 08/05/21 16:30 Magnesium Citrate (Citroma) 296 ml PRN 1X PRN PO 2nd choice constipation 08/05/21 16:30 08/12/21 07:19 DC 08/11/21 18:33 Mirtazapine (Remeron) 30 mg HS PO 08/05/21 21:00 08/15/21 19:42 Neomycin/ Polymyxin/ Bacitracin (Triple Antibiotic Ointment) 1 pkt BID TP 08/05/21 21:00 08/15/21 19:44 Nystatin (Nystop) 1 neelima BID TP 08/05/21 21:00 08/15/21 19:44 Olanzapine (ZyPREXA ZYDIS) 2.5 mg PRN Q2HRS PRN PO psychosis/agitation 08/05/21 16:30 08/15/21 19:42 Oxycodone/ Acetaminophen (Percocet 10/325) 1 tab PRN Q6HRS PRN PO MODERATE TO SEVERE PAIN 08/05/21 16:30 08/15/21 19:42 Potassium Chloride (Klor-Con) 30 meq DAILY PO 08/06/21 09:00 08/15/21 08:30 Trazodone HCl (Desyrel) 50 mg PRN QHS PRN PO INSOMNIA 08/05/21 16:30 08/14/21 19:55 Trazodone HCl (Desyrel) 100 mg HS PO 08/05/21 21:00 08/15/21 19:42 Trolamine Salicylate (Myoplex) 1 neelima PRN QID PRN TP muscle pain 08/05/21 16:30 UNV Atorvastatin Calcium (Lipitor) 80 mg QHS PO 08/05/21 21:00 08/15/21 19:42 Carvedilol (Coreg) 37.5 mg BIDWMEALS PO 08/05/21 17:00 08/15/21 17:31 Non-Formulary Medication (Insulin Lispro (Humalog)) 0-5 Units, low dose scale. TIDWMEALS SQ 08/05/21 17:00 UNV Multivitamins/ Calcium (Thera-M Plus) 1 tab DAILY PO 08/06/21 09:00 08/15/21 08:30 Multi-Ingredient Ointment (Analgesic [place]) 1 neelima PRN QID PRN TP MUSCLE PAIN 08/05/21 17:00 Insulin Human Lispro (HumaLOG) 0-5 UNITS TIDWMEALS SQ 08/05/21 17:00 08/10/21 13:08 Dextrose (Dextrose 50%-Water Syringe) 12.5 gm PRN Q15MIN PRN IV SEE COMMENTS 08/05/21 17:00 Magnesium Hydroxide (Milk Of Magnesia) 2,400 mg PRN QHS PRN PO 1st choice CONSTIPATION 08/08/21 22:15 08/10/21 08:12 Senna/Docusate Sodium (Senna Plus) 1 tab PRN BID PRN PO 2nd choice CONSTIPATION 08/12/21 15:30 Lamotrigine (LaMICtal) 200 mg QHS PO 08/14/21 21:00 08/15/21 19:43 I have reviewed the current psychotropics carefully including drug interactions. Risk benefit ratio favors no change other than as noted in my dictated progress note. Diagnosis: Problems: (1) Impulse control disorder, unspecified (2) Anxiety disorder, unspecified (3) Major depressive disorder, recurrent AMITA,ESE Spivey MD Aug 15, 2021 21:51
[2021-08-16 06:14] VITALS: BP 132/91
--- NOTE | 2021-08-16 07:56 | PDOC ---
Exam Note: Josef Note: This note is a late entry for 08/14/2021 covers elements not covered in my initial note. Subjective: The patient was reviewed at treatment team meeting in the morning on 08/14/2021 with Carmen Gutierrez, Shiloh Dias, and Chen Natarajan (pediatric social worker), Kera, activity therapy, Madiha RN, discussed and reviewed the chart. The patient slept 4-1/2 hours previous night. He continues to have mood lability and remains depressed. He threw his urinal on the floor, pouring it on the floor and then making somewhat disparaging remarks towards female nursing staff. Given his physical status, it is quite understandable how frustrated he gets because of his needs but during the individual visit he is always extremely pleasant, verbal, accepting responsibility and blaming himself, seeking to change his behaviors. Oral intake remains poor about 30%. He has attended 4 groups in the past one week. He listens to music on the samuel to keep himself occupied. He was seen individually in the evening. Review of Systems: Impaired ambulation, in wheelchair. Positive for chronic pain. No CV, , eye, ENT system symptoms on review. Mental Status Exam: The patient is alert, oriented, cooperative. Speech is coherent has some latency. Abstraction fair. Computation reasonable. Language function intact. Mood and affect somewhat dysphoric, anxious. We had a lengthy session addressing some of his above behaviors and ways to change this. He continues to have some mood swings. Laboratory Data: Reviewed. Impression: Major depressive disorder, recurrent, rule out psychotic features. Anxiety disorder unspecified. Plan: Increase Lamictal from 150 mg a day to 200 mg a day. Continue rest of the psychotropics. We discussed at treatment team about placement options and whether [facility] will take him back or not or [facility] may be an option. Assessment: Vital Signs/I&O: Vital Signs Date Time Temp Pulse Resp B/P (MAP) Pulse Ox O2 Delivery O2 Flow Rate FiO2 08/16/21 06:14 97.5 101 18 132/91 (105) 97 08/15/21 15:48 Room Air I & O 08/15/21 08/15/21 08/16/21 15:00 23:00 07:00 Intake Total 600 ml 360 ml Balance 600 ml 360 ml Labs: Laboratory Tests Test 08/15/21 16:57 08/15/21 19:06 08/16/21 07:23 Glucose (Fingerstick) 159 mg/dL (70-99) H 167 mg/dL (70-99) H 133 mg/dL (70-99) H Current Medications: I have reviewed the current psychotropics carefully including drug interactions. Risk benefit ratio favors no change other than as noted in my dictated progress note. Diagnosis: Problems: (1) Impulse control disorder, unspecified (2) Anxiety disorder, unspecified (3) Major depressive disorder, recurrent ESE LEVI MD Aug 16, 2021 07:56
[2021-08-16] MEDS: INSULIN LISPRO 300 UNITS/3 ML VIAL. SQ SCH ×3 (08:00→17:00)
--- NOTE | 2021-08-16 08:04 | PDOC ---
Exam Note: Josef Note: This note is a late entry for 08/15/2021 covers elements not covered in my initial note. Subjective: The patient was seen individually on 08/15/2021, discussed and reviewed the chart with Madiha MODI. The patient slept 2-3/4 hours previous night. Essentially he has put himself on the floor twice today. I addressed with him today at great length individually in his room. He continues to appear depressed, states he does stupid things and seems to show insight but then gets frustrated due to his physical needs and does things in response to this which he later regrets like pouring urinal on the floor. Oral intake remains poor. Review of Systems: Impaired ambulation, in wheelchair. Positive for pain. No CV, , eye, ENT system symptoms on review. Mental Status Exam: The patient is awake, alert, oriented. Speech is coherent has some latency. Abstraction fair. Computation impaired. Language function intact. Mood and affect withdrawn. No suicidal ideation. Laboratory Data: Reviewed. Impression: Major depressive disorder, recurrent, rule out psychotic features. Anxiety disorder unspecified. Plan: No change from initial note. Assessment: Vital Signs/I&O: Vital Signs Date Time Temp Pulse Resp B/P (MAP) Pulse Ox O2 Delivery O2 Flow Rate FiO2 08/16/21 06:14 97.5 101 18 132/91 (105) 97 08/15/21 15:48 Room Air I & O 08/15/21 08/15/21 08/16/21 15:00 23:00 07:00 Intake Total 600 ml 360 ml Balance 600 ml 360 ml Labs: Laboratory Tests Test 08/15/21 16:57 08/15/21 19:06 08/16/21 07:23 Glucose (Fingerstick) 159 mg/dL (70-99) H 167 mg/dL (70-99) H 133 mg/dL (70-99) H Current Medications: I have reviewed the current psychotropics carefully including drug interactions. Risk benefit ratio favors no change other than as noted in my dictated progress note. Diagnosis: Problems: (1) Impulse control disorder, unspecified (2) Anxiety disorder, unspecified (3) Major depressive disorder, recurrent ESE LEVI MD Aug 16, 2021 08:04
[2021-08-16] MEDS: ARIPiprazole 10 MG TABLET PO SCH (09:00)
[2021-08-16] MEDS: POTASSIUM CHLORIDE 10 MEQ TABLET.ER. PO SCH (09:01)
[2021-08-16] MEDS: DOCUSATE SODIUM 100 MG CAPSULE PO SCH ×2 (09:01→20:15)
[2021-08-16] MEDS: LINAGLIPTIN 5 MG TABLET PO SCH (09:01)
[2021-08-16] MEDS: ASPIRIN CHEWABLE 81 MG TABLET. PO SCH (09:01)
[2021-08-16] MEDS: DULoxetine HCL 60 MG CAPSULE.DR PO SCH (09:01)
[2021-08-16] MEDS: FUROSEMIDE 40 MG TABLET PO SCH (09:01)
[2021-08-16] MEDS: MULTIVITAMIN with MINERAL TABLET. PO SCH (09:01)
[2021-08-16] MEDS: buPROPion XL 150 MG TAB.ER.24H PO SCH (09:01)
[2021-08-16] MEDS: CLOPIDOGREL BISULFATE 75 MG TABLET PO SCH (09:02)
[2021-08-16] MEDS: CARVEDILOL 12.5 MG TABLET PO SCH ×2 (09:02→17:17)
[2021-08-16] MEDS: NEOMY/BACITR/POLYMYXIN OINT PACKET. TP SCH ×2 (09:05→20:16)
[2021-08-16] MEDS: NYSTATIN TOPICAL POWDER 15GM BOTTLE. TP SCH ×2 (09:05→20:16)
[2021-08-16 11:40] VITALS: BP 96/61
[2021-08-16] MEDS: DULoxetine HCL 30 MG CAPSULE.DR PO SCH (13:20)
[2021-08-16 15:39] VITALS: BP 126/80
[2021-08-16] MEDS: lamoTRIgine 100 MG TABLET. PO SCH (20:15)
[2021-08-16] MEDS: ATORVASTATIN CALCIUM 20 MG TABLET PO SCH (20:15)
[2021-08-16] MEDS: MIRTAZAPINE 30 MG TABLET PO SCH (20:16)
[2021-08-16] MEDS: traZODone 100 MG TABLET. PO SCH (20:17)
[2021-08-16] MEDS: oxyCODONE/APAP 10/325 1 TAB TABLET PO PRN (20:18)
--- NOTE | 2021-08-16 21:40 | PDOC ---
Exam Note: Josef Note: Please also refer to the separate dictated note~for this date of service dictated separately.~Patient seen individually. Discussed the patient with Nursing staff reviewed the chart.~Reviewed interim history and current functioning. Reviewed vital signs,~Labs/ Radiology~and current medications noted below. Continue current treatment with the changes noted in the dictated addendum note Assessment: Vital Signs/I&O: Vital Signs Date Time Temp Pulse Resp B/P (MAP) Pulse Ox O2 Delivery O2 Flow Rate FiO2 08/16/21 17:17 93 126/80 08/16/21 15:39 97.7 20 98 08/15/21 15:48 Room Air I & O 08/15/21 08/15/21 08/16/21 15:00 23:00 07:00 Intake Total 600 ml 360 ml Balance 600 ml 360 ml Labs: Laboratory Tests Test 08/16/21 07:23 08/16/21 11:57 08/16/21 19:19 Glucose (Fingerstick) 133 mg/dL (70-99) H 168 mg/dL (70-99) H 161 mg/dL (70-99) H Current Medications: Meds: Laboratory Tests Test 08/16/21 07:23 08/16/21 11:57 08/16/21 19:19 Glucose (Fingerstick) 133 mg/dL 168 mg/dL 161 mg/dL Current Medications Medications (Trade) Dose Ordered Sig/Nicky Route PRN Reason Start Time Stop Time Status Last Admin Dose Admin Acetaminophen (Tylenol) 650 mg PRN Q6HRS PRN PO mild pain/temp >100.3 F 08/05/21 16:30 08/05/21 20:32 Aripiprazole (Abilify) 10 mg DAILY PO 08/06/21 09:00 08/16/21 09:00 Aspirin (Aspirin Chewable) 81 mg DAILY PO 08/06/21 09:00 08/16/21 09:01 Bupropion HCl (Wellbutrin Xl) 150 mg DAILY PO 08/06/21 09:00 08/16/21 09:01 Clopidogrel Bisulfate (Plavix) 75 mg DAILY PO 08/06/21 09:00 08/16/21 09:02 Docusate Sodium (Colace) 100 mg BID PO 08/05/21 21:00 08/16/21 20:15 Duloxetine HCl (Cymbalta) 30 mg AFTRNOON PO 08/06/21 13:00 08/16/21 13:20 Duloxetine HCl (Cymbalta) 60 mg DAILY PO 08/06/21 09:00 08/16/21 09:01 Furosemide (Lasix) 40 mg DAILY PO 08/06/21 09:00 08/16/21 09:01 Lamotrigine (LaMICtal) 150 mg QHS PO 08/05/21 21:00 08/14/21 10:06 DC 08/13/21 19:55 Linagliptin (Tradjenta) 5 mg DAILY PO 08/06/21 09:00 08/16/21 09:01 Al Hydroxide/Mg Hydroxide (Mylanta Plus Xs) 15 ml PRN AFTMEALHC PRN PO DYSPEPSIA 08/05/21 16:30 Magnesium Citrate (Citroma) 296 ml PRN 1X PRN PO 2nd choice constipation 08/05/21 16:30 08/12/21 07:19 DC 08/11/21 18:33 Mirtazapine (Remeron) 30 mg HS PO 08/05/21 21:00 08/16/21 20:16 Neomycin/ Polymyxin/ Bacitracin (Triple Antibiotic Ointment) 1 pkt BID TP 08/05/21 21:00 08/16/21 20:16 Nystatin (Nystop) 1 neelima BID TP 08/05/21 21:00 08/16/21 20:16 Olanzapine (ZyPREXA ZYDIS) 2.5 mg PRN Q2HRS PRN PO psychosis/agitation 08/05/21 16:30 08/15/21 19:42 Oxycodone/ Acetaminophen (Percocet 10/325) 1 tab PRN Q6HRS PRN PO MODERATE TO SEVERE PAIN 08/05/21 16:30 08/16/21 20:18 Potassium Chloride (Klor-Con) 30 meq DAILY PO 08/06/21 09:00 08/16/21 09:01 Trazodone HCl (Desyrel) 50 mg PRN QHS PRN PO INSOMNIA 08/05/21 16:30 08/14/21 19:55 Trazodone HCl (Desyrel) 100 mg HS PO 08/05/21 21:00 08/16/21 20:17 Trolamine Salicylate (Myoplex) 1 neelima PRN QID PRN TP muscle pain 08/05/21 16:30 UNV Atorvastatin Calcium (Lipitor) 80 mg QHS PO 08/05/21 21:00 08/16/21 20:15 Carvedilol (Coreg) 37.5 mg BIDWMEALS PO 08/05/21 17:00 08/16/21 17:17 Non-Formulary Medication (Insulin Lispro (Humalog)) 0-5 Units, low dose scale. TIDWMEALS SQ 08/05/21 17:00 UNV Multivitamins/ Calcium (Thera-M Plus) 1 tab DAILY PO 08/06/21 09:00 08/16/21 09:01 Multi-Ingredient Ointment (Analgesic [place]) 1 neelima PRN QID PRN TP MUSCLE PAIN 08/05/21 17:00 Insulin Human Lispro (HumaLOG) 0-5 UNITS TIDWMEALS SQ 08/05/21 17:00 08/10/21 13:08 Dextrose (Dextrose 50%-Water Syringe) 12.5 gm PRN Q15MIN PRN IV SEE COMMENTS 08/05/21 17:00 Magnesium Hydroxide (Milk Of Magnesia) 2,400 mg PRN QHS PRN PO 1st choice CONSTIPATION 08/08/21 22:15 08/10/21 08:12 Senna/Docusate Sodium (Senna Plus) 1 tab PRN BID PRN PO 2nd choice CONSTIPATION 08/12/21 15:30 Lamotrigine (LaMICtal) 200 mg QHS PO 08/14/21 21:00 08/16/21 20:15 I have reviewed the current psychotropics carefully including drug interactions. Risk benefit ratio favors no change other than as noted in my dictated progress note. Diagnosis: Problems: (1) Impulse control disorder, unspecified (2) Anxiety disorder, unspecified (3) Major depressive disorder, recurrent AMITA,ESE Spivey MD Aug 16, 2021 21:40
[2021-08-17 05:42] VITALS: BP 124/88
[2021-08-17] MEDS: INSULIN LISPRO 300 UNITS/3 ML VIAL. SQ SCH ×3 (08:00→17:00)
[2021-08-17] MEDS: ARIPiprazole 10 MG TABLET PO SCH (08:51)
[2021-08-17] MEDS: DULoxetine HCL 60 MG CAPSULE.DR PO SCH (08:51)
[2021-08-17] MEDS: buPROPion XL 150 MG TAB.ER.24H PO SCH (08:51)
[2021-08-17] MEDS: MULTIVITAMIN with MINERAL TABLET. PO SCH (08:51)
[2021-08-17] MEDS: ASPIRIN CHEWABLE 81 MG TABLET. PO SCH (08:51)
[2021-08-17] MEDS: LINAGLIPTIN 5 MG TABLET PO SCH (08:51)
[2021-08-17] MEDS: CLOPIDOGREL BISULFATE 75 MG TABLET PO SCH (08:51)
[2021-08-17] MEDS: FUROSEMIDE 40 MG TABLET PO SCH (08:51)
[2021-08-17] MEDS: POTASSIUM CHLORIDE 10 MEQ TABLET.ER. PO SCH (08:51)
[2021-08-17] MEDS: CARVEDILOL 12.5 MG TABLET PO SCH ×2 (08:51→17:54)
[2021-08-17] MEDS: NEOMY/BACITR/POLYMYXIN OINT PACKET. TP SCH ×2 (08:52→20:15)
[2021-08-17] MEDS: DOCUSATE SODIUM 100 MG CAPSULE PO SCH ×2 (08:52→20:16)
[2021-08-17] MEDS: NYSTATIN TOPICAL POWDER 15GM BOTTLE. TP SCH ×2 (08:52→20:16)
[2021-08-17] MEDS: oxyCODONE/APAP 10/325 1 TAB TABLET PO PRN ×2 (10:10→20:17)
[2021-08-17] MEDS: DULoxetine HCL 30 MG CAPSULE.DR PO SCH (12:57)
[2021-08-17] MEDS: SENNOSIDES/DOCUSATE 8.6/50MG TABLET. PO PRN ×2 (12:57→20:18)
[2021-08-17 16:28] VITALS: BP 162/75
[2021-08-17] MEDS: traZODone 100 MG TABLET. PO SCH (20:16)
[2021-08-17] MEDS: lamoTRIgine 100 MG TABLET. PO SCH (20:16)
[2021-08-17] MEDS: MIRTAZAPINE 30 MG TABLET PO SCH (20:16)
[2021-08-17] MEDS: ATORVASTATIN CALCIUM 20 MG TABLET PO SCH (20:16)
--- NOTE | 2021-08-17 21:42 | PDOC ---
Exam Note: Josef Note: Please also refer to the separate dictated note~for this date of service dictated separately.~Patient seen individually. Discussed the patient with Nursing staff reviewed the chart.~Reviewed interim history and current functioning. Reviewed vital signs,~Labs/ Radiology~and current medications noted below. Continue current treatment with the changes noted in the dictated addendum note Assessment: Vital Signs/I&O: Vital Signs Date Time Temp Pulse Resp B/P (MAP) Pulse Ox O2 Delivery O2 Flow Rate FiO2 08/17/21 17:54 101 162/75 08/17/21 16:28 98.6 20 100 Room Air I & O 08/16/21 08/16/21 08/17/21 15:00 23:00 07:00 Intake Total 740 ml 480 ml Output Total 375 ml Balance 740 ml 105 ml Labs: Laboratory Tests Test 08/17/21 07:53 08/17/21 16:43 08/17/21 19:10 Glucose (Fingerstick) 143 mg/dL (70-99) H 144 mg/dL (70-99) H 154 mg/dL (70-99) H Current Medications: Meds: Laboratory Tests Test 08/17/21 07:53 08/17/21 16:43 08/17/21 19:10 Glucose (Fingerstick) 143 mg/dL 144 mg/dL 154 mg/dL Current Medications Medications (Trade) Dose Ordered Sig/Nicky Route PRN Reason Start Time Stop Time Status Last Admin Dose Admin Acetaminophen (Tylenol) 650 mg PRN Q6HRS PRN PO mild pain/temp >100.3 F 08/05/21 16:30 08/05/21 20:32 Aripiprazole (Abilify) 10 mg DAILY PO 08/06/21 09:00 08/17/21 08:51 Aspirin (Aspirin Chewable) 81 mg DAILY PO 08/06/21 09:00 08/17/21 08:51 Bupropion HCl (Wellbutrin Xl) 150 mg DAILY PO 08/06/21 09:00 08/17/21 08:51 Clopidogrel Bisulfate (Plavix) 75 mg DAILY PO 08/06/21 09:00 08/17/21 08:51 Docusate Sodium (Colace) 100 mg BID PO 08/05/21 21:00 08/17/21 20:16 Duloxetine HCl (Cymbalta) 30 mg AFTRNOON PO 08/06/21 13:00 08/17/21 12:57 Duloxetine HCl (Cymbalta) 60 mg DAILY PO 08/06/21 09:00 08/17/21 08:51 Furosemide (Lasix) 40 mg DAILY PO 08/06/21 09:00 08/17/21 08:51 Lamotrigine (LaMICtal) 150 mg QHS PO 08/05/21 21:00 08/14/21 10:06 DC 08/13/21 19:55 Linagliptin (Tradjenta) 5 mg DAILY PO 08/06/21 09:00 08/17/21 08:51 Al Hydroxide/Mg Hydroxide (Mylanta Plus Xs) 15 ml PRN AFTMEALHC PRN PO DYSPEPSIA 08/05/21 16:30 Magnesium Citrate (Citroma) 296 ml PRN 1X PRN PO 2nd choice constipation 08/05/21 16:30 08/12/21 07:19 DC 08/11/21 18:33 Mirtazapine (Remeron) 30 mg HS PO 08/05/21 21:00 08/17/21 20:16 Neomycin/ Polymyxin/ Bacitracin (Triple Antibiotic Ointment) 1 pkt BID TP 08/05/21 21:00 08/17/21 20:15 Nystatin (Nystop) 1 neelima BID TP 08/05/21 21:00 08/17/21 20:16 Olanzapine (ZyPREXA ZYDIS) 2.5 mg PRN Q2HRS PRN PO psychosis/agitation 08/05/21 16:30 08/15/21 19:42 Oxycodone/ Acetaminophen (Percocet 10/325) 1 tab PRN Q6HRS PRN PO MODERATE TO SEVERE PAIN 08/05/21 16:30 08/17/21 20:17 Potassium Chloride (Klor-Con) 30 meq DAILY PO 08/06/21 09:00 08/17/21 08:51 Trazodone HCl (Desyrel) 50 mg PRN QHS PRN PO INSOMNIA 08/05/21 16:30 08/14/21 19:55 Trazodone HCl (Desyrel) 100 mg HS PO 08/05/21 21:00 08/17/21 20:16 Trolamine Salicylate (Myoplex) 1 neelima PRN QID PRN TP muscle pain 08/05/21 16:30 UNV Atorvastatin Calcium (Lipitor) 80 mg QHS PO 08/05/21 21:00 08/17/21 20:16 Carvedilol (Coreg) 37.5 mg BIDWMEALS PO 08/05/21 17:00 08/17/21 17:54 Non-Formulary Medication (Insulin Lispro (Humalog)) 0-5 Units, low dose scale. TIDWMEALS SQ 08/05/21 17:00 UNV Multivitamins/ Calcium (Thera-M Plus) 1 tab DAILY PO 08/06/21 09:00 08/17/21 08:51 Multi-Ingredient Ointment (Analgesic [place]) 1 neelima PRN QID PRN TP MUSCLE PAIN 08/05/21 17:00 Insulin Human Lispro (HumaLOG) 0-5 UNITS TIDWMEALS SQ 08/05/21 17:00 08/10/21 13:08 Dextrose (Dextrose 50%-Water Syringe) 12.5 gm PRN Q15MIN PRN IV SEE COMMENTS 08/05/21 17:00 Magnesium Hydroxide (Milk Of Magnesia) 2,400 mg PRN QHS PRN PO 1st choice CONSTIPATION 08/08/21 22:15 08/10/21 08:12 Senna/Docusate Sodium (Senna Plus) 1 tab PRN BID PRN PO 2nd choice CONSTIPATION 08/12/21 15:30 08/17/21 20:18 Lamotrigine (LaMICtal) 200 mg QHS PO 08/14/21 21:00 08/17/21 20:16 I have reviewed the current psychotropics carefully including drug interactions. Risk benefit ratio favors no change other than as noted in my dictated progress note. Diagnosis: Problems: (1) Impulse control disorder, unspecified (2) Anxiety disorder, unspecified (3) Major depressive disorder, recurrent AMITA,ESE Spivey MD Aug 17, 2021 21:42
[2021-08-18 05:37] VITALS: BP 127/87
--- NOTE | 2021-08-18 07:01 | PDOC ---
Exam Note: Josef Note: This note is a late entry for 08/16/2021 covers elements not covered in my initial note. Subjective: The patient was seen individually on 08/16/2021, discussed and reviewed the chart with Irene MODI. The patient slept 8 hours previous night. Overall he has been fairly appropriate on the unit. He has not been throwing himself on the floor or pulling out or tipping his urinal all over. Review of Systems: Impaired ambulation, in wheelchair. No CV, , eye, ENT system symptoms on review. Mental Status Exam: The patient is awake, alert, oriented. He is quite verbal, interactive blaming himself that his mood lability persists and he sometimes is not very nice to the nursing staff. We addressed this with him. He still remains somewhat dysphoric but better than before. Speech is coherent. Abstraction fair. Computation impaired. Language function intact. Mood and affect withdrawn. No suicidal ideation. Laboratory Data: Reviewed. Impression: Major depressive disorder, recurrent, rule out psychotic features. Anxiety disorder unspecified. Plan: Continue psychotropics from initial note. Adjust further as clinically indicated. Assessment: Vital Signs/I&O: Vital Signs Date Time Temp Pulse Resp B/P (MAP) Pulse Ox O2 Delivery O2 Flow Rate FiO2 08/18/21 05:37 97.9 102 22 127/87 (100) 97 Room Air I & O 08/17/21 08/17/21 08/18/21 15:00 23:00 07:00 Intake Total 60 ml 240 ml Balance 60 ml 240 ml Labs: Laboratory Tests Test 08/17/21 07:53 08/17/21 16:43 08/17/21 19:10 Glucose (Fingerstick) 143 mg/dL (70-99) H 144 mg/dL (70-99) H 154 mg/dL (70-99) H Current Medications: I have reviewed the current psychotropics carefully including drug interactions. Risk benefit ratio favors no change other than as noted in my dictated progress note. Diagnosis: Problems: (1) Impulse control disorder, unspecified (2) Anxiety disorder, unspecified (3) Major depressive disorder, recurrent ESE LEVI MD Aug 18, 2021 07:01
--- NOTE | 2021-08-18 07:29 | PDOC ---
Exam Note: Josef Note: This note is a late entry for 08/17/2021 covers elements not covered in my initial note. Subjective: The patient was seen individually on 08/17/2021, discussed and reviewed the chart with Isidra MODI. The patient slept 5-1/4 hours previous night. He has been doing reasonably well on the unit. No disruptive behaviors noted. Review of Systems: No CV, , eye, ENT system symptoms on review. Mental Status Exam: The patient is reasonably oriented. Speech is coherent has some latency. Abstraction fair. Computation impaired. Language function intact. Mood and affect withdrawn. No suicidal ideation. Laboratory Data: Reviewed. Impression: Major depressive disorder, recurrent, rule out psychotic features. Anxiety disorder unspecified. Plan: No change from initial note. Adjust further as clinically indicated. Assessment: Vital Signs/I&O: Vital Signs Date Time Temp Pulse Resp B/P (MAP) Pulse Ox O2 Delivery O2 Flow Rate FiO2 08/18/21 05:37 97.9 102 22 127/87 (100) 97 Room Air I & O 08/17/21 08/17/21 08/18/21 15:00 23:00 07:00 Intake Total 60 ml 240 ml Balance 60 ml 240 ml Labs: Laboratory Tests Test 08/17/21 07:53 08/17/21 16:43 08/17/21 19:10 08/18/21 07:24 Glucose (Fingerstick) 143 mg/dL (70-99) H 144 mg/dL (70-99) H 154 mg/dL (70-99) H 152 mg/dL (70-99) H Current Medications: I have reviewed the current psychotropics carefully including drug interactions. Risk benefit ratio favors no change other than as noted in my dictated progress note. Diagnosis: Problems: (1) Impulse control disorder, unspecified (2) Anxiety disorder, unspecified (3) Major depressive disorder, recurrent ESE LEVI MD Aug 18, 2021 07:28
[2021-08-18] MEDS: DULoxetine HCL 60 MG CAPSULE.DR PO SCH (08:23)
[2021-08-18] MEDS: NYSTATIN TOPICAL POWDER 15GM BOTTLE. TP SCH ×2 (08:23→20:26)
[2021-08-18] MEDS: buPROPion XL 150 MG TAB.ER.24H PO SCH (08:23)
[2021-08-18] MEDS: CARVEDILOL 12.5 MG TABLET PO SCH ×2 (08:23→17:02)
[2021-08-18] MEDS: POTASSIUM CHLORIDE 10 MEQ TABLET.ER. PO SCH (08:23)
[2021-08-18] MEDS: ASPIRIN CHEWABLE 81 MG TABLET. PO SCH (08:24)
[2021-08-18] MEDS: MULTIVITAMIN with MINERAL TABLET. PO SCH (08:24)
[2021-08-18] MEDS: FUROSEMIDE 40 MG TABLET PO SCH (08:24)
[2021-08-18] MEDS: ARIPiprazole 10 MG TABLET PO SCH (08:24)
[2021-08-18] MEDS: LINAGLIPTIN 5 MG TABLET PO SCH (08:24)
[2021-08-18] MEDS: CLOPIDOGREL BISULFATE 75 MG TABLET PO SCH (08:24)
[2021-08-18] MEDS: NEOMY/BACITR/POLYMYXIN OINT PACKET. TP SCH ×2 (08:24→20:25)
[2021-08-18] MEDS: DOCUSATE SODIUM 100 MG CAPSULE PO SCH ×2 (08:24→20:26)
[2021-08-18] MEDS: INSULIN LISPRO 300 UNITS/3 ML VIAL. SQ SCH ×3 (08:51→17:00)
[2021-08-18] MEDS: DULoxetine HCL 30 MG CAPSULE.DR PO SCH (14:52)
[2021-08-18 15:49] VITALS: BP 121/79
[2021-08-18] MEDS: traZODone 100 MG TABLET. PO SCH (20:25)
[2021-08-18] MEDS: ATORVASTATIN CALCIUM 20 MG TABLET PO SCH (20:25)
[2021-08-18] MEDS: lamoTRIgine 100 MG TABLET. PO SCH (20:25)
[2021-08-18] MEDS: MIRTAZAPINE 30 MG TABLET PO SCH (20:26)
[2021-08-18] MEDS: oxyCODONE/APAP 10/325 1 TAB TABLET PO PRN (20:26)
[2021-08-18] MEDS: SENNOSIDES/DOCUSATE 8.6/50MG TABLET. PO PRN (20:28)
--- NOTE | 2021-08-18 21:16 | PDOC ---
Exam Note: Josef Note: Please also refer to the separate dictated note~for this date of service dictated separately.~Patient seen individually. Discussed the patient with Nursing staff reviewed the chart.~Reviewed interim history and current functioning. Reviewed vital signs,~Labs/ Radiology~and current medications noted below. Continue current treatment with the changes noted in the dictated addendum note Assessment: Vital Signs/I&O: Vital Signs Date Time Temp Pulse Resp B/P (MAP) Pulse Ox O2 Delivery O2 Flow Rate FiO2 08/18/21 17:02 99 121/79 08/18/21 15:49 98.0 24 97 intentional rapid breathing I & O 08/17/21 08/17/21 08/18/21 15:00 23:00 07:00 Intake Total 60 ml 240 ml Balance 60 ml 240 ml Labs: Laboratory Tests Test 08/18/21 07:24 08/18/21 12:00 08/18/21 16:33 08/18/21 19:28 Glucose (Fingerstick) 152 mg/dL (70-99) H 163 mg/dL (70-99) H 154 mg/dL (70-99) H 155 mg/dL (70-99) H Current Medications: Meds: Laboratory Tests Test 08/18/21 07:24 08/18/21 12:00 08/18/21 16:33 08/18/21 19:28 Glucose (Fingerstick) 152 mg/dL 163 mg/dL 154 mg/dL 155 mg/dL Current Medications Medications (Trade) Dose Ordered Sig/Nicky Route PRN Reason Start Time Stop Time Status Last Admin Dose Admin Acetaminophen (Tylenol) 650 mg PRN Q6HRS PRN PO mild pain/temp >100.3 F 08/05/21 16:30 08/05/21 20:32 Aripiprazole (Abilify) 10 mg DAILY PO 08/06/21 09:00 08/18/21 08:24 Aspirin (Aspirin Chewable) 81 mg DAILY PO 08/06/21 09:00 08/18/21 08:24 Bupropion HCl (Wellbutrin Xl) 150 mg DAILY PO 08/06/21 09:00 08/18/21 08:23 Clopidogrel Bisulfate (Plavix) 75 mg DAILY PO 08/06/21 09:00 08/18/21 08:24 Docusate Sodium (Colace) 100 mg BID PO 08/05/21 21:00 08/18/21 20:26 Duloxetine HCl (Cymbalta) 30 mg AFTRNOON PO 08/06/21 13:00 08/18/21 14:52 Duloxetine HCl (Cymbalta) 60 mg DAILY PO 08/06/21 09:00 08/18/21 08:23 Furosemide (Lasix) 40 mg DAILY PO 08/06/21 09:00 08/18/21 08:24 Lamotrigine (LaMICtal) 150 mg QHS PO 08/05/21 21:00 08/14/21 10:06 DC 08/13/21 19:55 Linagliptin (Tradjenta) 5 mg DAILY PO 08/06/21 09:00 08/18/21 08:24 Al Hydroxide/Mg Hydroxide (Mylanta Plus Xs) 15 ml PRN AFTMEALHC PRN PO DYSPEPSIA 08/05/21 16:30 Magnesium Citrate (Citroma) 296 ml PRN 1X PRN PO 2nd choice constipation 08/05/21 16:30 08/12/21 07:19 DC 08/11/21 18:33 Mirtazapine (Remeron) 30 mg HS PO 08/05/21 21:00 08/18/21 20:26 Neomycin/ Polymyxin/ Bacitracin (Triple Antibiotic Ointment) 1 pkt BID TP 08/05/21 21:00 08/18/21 20:25 Nystatin (Nystop) 1 neelima BID TP 08/05/21 21:00 08/18/21 20:26 Olanzapine (ZyPREXA ZYDIS) 2.5 mg PRN Q2HRS PRN PO psychosis/agitation 08/05/21 16:30 08/15/21 19:42 Oxycodone/ Acetaminophen (Percocet 10/325) 1 tab PRN Q6HRS PRN PO MODERATE TO SEVERE PAIN 08/05/21 16:30 08/18/21 20:26 Potassium Chloride (Klor-Con) 30 meq DAILY PO 08/06/21 09:00 08/18/21 08:23 Trazodone HCl (Desyrel) 50 mg PRN QHS PRN PO INSOMNIA 08/05/21 16:30 08/14/21 19:55 Trazodone HCl (Desyrel) 100 mg HS PO 08/05/21 21:00 08/18/21 20:25 Trolamine Salicylate (Myoplex) 1 neelima PRN QID PRN TP muscle pain 08/05/21 16:30 UNV Atorvastatin Calcium (Lipitor) 80 mg QHS PO 08/05/21 21:00 08/18/21 20:25 Carvedilol (Coreg) 37.5 mg BIDWMEALS PO 08/05/21 17:00 08/18/21 17:02 Non-Formulary Medication (Insulin Lispro (Humalog)) 0-5 Units, low dose scale. TIDWMEALS SQ 08/05/21 17:00 UNV Multivitamins/ Calcium (Thera-M Plus) 1 tab DAILY PO 08/06/21 09:00 08/18/21 08:24 Multi-Ingredient Ointment (Analgesic [place]) 1 neelima PRN QID PRN TP MUSCLE PAIN 08/05/21 17:00 Insulin Human Lispro (HumaLOG) 0-5 UNITS TIDWMEALS SQ 08/05/21 17:00 08/10/21 13:08 Dextrose (Dextrose 50%-Water Syringe) 12.5 gm PRN Q15MIN PRN IV SEE COMMENTS 08/05/21 17:00 Magnesium Hydroxide (Milk Of Magnesia) 2,400 mg PRN QHS PRN PO 1st choice CONSTIPATION 08/08/21 22:15 08/10/21 08:12 Senna/Docusate Sodium (Senna Plus) 1 tab PRN BID PRN PO 2nd choice CONSTIPATION 08/12/21 15:30 08/18/21 20:28 Lamotrigine (LaMICtal) 200 mg QHS PO 08/14/21 21:00 08/18/21 20:25 I have reviewed the current psychotropics carefully including drug interactions. Risk benefit ratio favors no change other than as noted in my dictated progress note. Diagnosis: Problems: (1) Impulse control disorder, unspecified (2) Anxiety disorder, unspecified (3) Major depressive disorder, recurrent AMITA,ESE Spivey MD Aug 18, 2021 21:16
[2021-08-19] MEDS: oxyCODONE/APAP 10/325 1 TAB TABLET PO PRN ×3 (04:51→20:04)
[2021-08-19 06:04] VITALS: BP 116/73
[2021-08-19 06:13] LABS: BASO % 0 % (0-3); EOS # 0.1 x10^3/uL (0.0-0.7); EOS % 2 % (0-3); HEMATOCRIT 34.4 % (39.0-53.0); HEMOGLOBIN 10.9 g/dL (13.0-17.5); LYMPH # 0.6 x10^3/uL (1.0-4.8); LYMPH % 9 % (24-48); MEAN CORPUSCULAR HEMOGLOBIN 30 pg (25-35); MEAN CORPUSCULAR HGB CONC 32 g/dL (31-37); MEAN CORPUSCULAR VOLUME 96 fL (79-100); MONO # 0.7 x10^3/uL (0.0-1.1); MONO % 10 % (0-9); NEUT # 5.6 x10^3uL (1.8-7.7); NEUT % 79 % (31-73); PLATELET COUNT 276 x10^3/uL (140-400); RED CELL DISTRIBUTION WIDTH 16.2 % (11.5-14.5)
[2021-08-19 06:25] LABS: ALBUMIN 2.4 g/dL (3.4-5.0); ALBUMIN/GLOBULIN RATIO 0.6 (1.0-1.7); CALCIUM 8.5 mg/dL (8.5-10.1); CREATININE 1.1 mg/dL (0.7-1.3); GFR 66.8; POTASSIUM 3.8 mmol/L (3.5-5.1); TOTAL BILIRUBIN 0.5 mg/dL (0.2-1.0); TOTAL PROTEIN 6.3 g/dL (6.4-8.2)
[2021-08-19] MEDS: INSULIN LISPRO 300 UNITS/3 ML VIAL. SQ SCH ×3 (08:00→17:00)
[2021-08-19] MEDS: NYSTATIN TOPICAL POWDER 15GM BOTTLE. TP SCH ×2 (08:32→20:02)
[2021-08-19] MEDS: DULoxetine HCL 60 MG CAPSULE.DR PO SCH (08:33)
[2021-08-19] MEDS: CARVEDILOL 12.5 MG TABLET PO SCH ×2 (08:33→17:16)
[2021-08-19] MEDS: ARIPiprazole 10 MG TABLET PO SCH (08:34)
[2021-08-19] MEDS: CLOPIDOGREL BISULFATE 75 MG TABLET PO SCH (08:34)
[2021-08-19] MEDS: POTASSIUM CHLORIDE 10 MEQ TABLET.ER. PO SCH (08:34)
[2021-08-19] MEDS: ASPIRIN CHEWABLE 81 MG TABLET. PO SCH (08:34)
[2021-08-19] MEDS: buPROPion XL 150 MG TAB.ER.24H PO SCH (08:34)
[2021-08-19] MEDS: FUROSEMIDE 40 MG TABLET PO SCH (08:34)
[2021-08-19] MEDS: LINAGLIPTIN 5 MG TABLET PO SCH (08:35)
[2021-08-19] MEDS: MULTIVITAMIN with MINERAL TABLET. PO SCH (08:35)
[2021-08-19] MEDS: DOCUSATE SODIUM 100 MG CAPSULE PO SCH ×2 (08:35→20:01)
[2021-08-19] MEDS: NEOMY/BACITR/POLYMYXIN OINT PACKET. TP SCH ×2 (08:36→20:03)
[2021-08-19] MEDS: DULoxetine HCL 30 MG CAPSULE.DR PO SCH (12:28)
[2021-08-19 16:07] VITALS: BP 117/78
[2021-08-19] MEDS: lamoTRIgine 100 MG TABLET. PO SCH (20:01)
[2021-08-19] MEDS: traZODone 100 MG TABLET. PO SCH (20:01)
[2021-08-19] MEDS: ATORVASTATIN CALCIUM 20 MG TABLET PO SCH (20:02)
[2021-08-19] MEDS: MIRTAZAPINE 30 MG TABLET PO SCH (20:02)
--- NOTE | 2021-08-19 21:22 | PDOC ---
Exam Note: Josef Note: Please also refer to the separate dictated note~for this date of service dictated separately.~Patient seen individually. Discussed the patient with Nursing staff reviewed the chart.~Reviewed interim history and current functioning. Reviewed vital signs,~Labs/ Radiology~and current medications noted below. Continue current treatment with the changes noted in the dictated addendum note Assessment: Vital Signs/I&O: Vital Signs Date Time Temp Pulse Resp B/P (MAP) Pulse Ox O2 Delivery O2 Flow Rate FiO2 08/19/21 17:16 98 117/78 08/19/21 16:07 96.9 20 93 08/18/21 15:49 intentional rapid breathing I & O 08/18/21 08/18/21 08/19/21 15:00 23:00 07:00 Intake Total 480 ml 420 ml Balance 480 ml 420 ml Labs: Laboratory Tests Test 08/19/21 06:01 08/19/21 07:28 08/19/21 12:32 08/19/21 16:52 White Blood Count 7.0 x10^3/uL (4.0-11.0) Red Blood Count 3.60 x10^6/uL (4.30-5.70) L Hemoglobin 10.9 g/dL (13.0-17.5) L Hematocrit 34.4 % (39.0-53.0) L Mean Corpuscular Volume 96 fL (79-100) Mean Corpuscular Hemoglobin 30 pg (25-35) Mean Corpuscular Hemoglobin Concent 32 g/dL (31-37) Red Cell Distribution Width 16.2 % (11.5-14.5) H Platelet Count 276 x10^3/uL (140-400) Neutrophils (%) (Auto) 79 % (31-73) H Lymphocytes (%) (Auto) 9 % (24-48) L Monocytes (%) (Auto) 10 % (0-9) H Eosinophils (%) (Auto) 2 % (0-3) Basophils (%) (Auto) 0 % (0-3) Neutrophils # (Auto) 5.6 x10^3uL (1.8-7.7) Lymphocytes # (Auto) 0.6 x10^3/uL (1.0-4.8) L Monocytes # (Auto) 0.7 x10^3/uL (0.0-1.1) Eosinophils # (Auto) 0.1 x10^3/uL (0.0-0.7) Basophils # (Auto) 0.0 x10^3/uL (0.0-0.2) Sodium Level 140 mmol/L (136-145) Potassium Level 3.8 mmol/L (3.5-5.1) Chloride Level 105 mmol/L (98-107) Carbon Dioxide Level 26 mmol/L (21-32) Anion Gap 9 (6-14) Blood Urea Nitrogen 30 mg/dL (8-26) H Creatinine 1.1 mg/dL (0.7-1.3) Estimated GFR (Cockcroft-Gault) 66.8 BUN/Creatinine Ratio 27 (6-20) H Glucose Level 159 mg/dL (70-99) H Calcium Level 8.5 mg/dL (8.5-10.1) Total Bilirubin 0.5 mg/dL (0.2-1.0) Aspartate Amino Transferase (AST) 21 U/L (15-37) Alanine Aminotransferase (ALT) 25 U/L (16-63) Alkaline Phosphatase 85 U/L (46-116) Total Protein 6.3 g/dL (6.4-8.2) L Albumin 2.4 g/dL (3.4-5.0) L Albumin/Globulin Ratio 0.6 (1.0-1.7) L Glucose (Fingerstick) 144 mg/dL (70-99) H 179 mg/dL (70-99) H 149 mg/dL (70-99) H Test 08/19/21 19:08 Glucose (Fingerstick) 175 mg/dL (70-99) H Current Medications: Meds: Laboratory Tests Test 08/19/21 06:01 08/19/21 07:28 08/19/21 12:32 08/19/21 16:52 White Blood Count 7.0 x10^3/uL Red Blood Count 3.60 x10^6/uL Hemoglobin 10.9 g/dL Hematocrit 34.4 % Mean Corpuscular Volume 96 fL Mean Corpuscular Hemoglobin 30 pg Mean Corpuscular Hemoglobin Concent 32 g/dL Red Cell Distribution Width 16.2 % Platelet Count 276 x10^3/uL Neutrophils (%) (Auto) 79 % Lymphocytes (%) (Auto) 9 % Monocytes (%) (Auto) 10 % Eosinophils (%) (Auto) 2 % Basophils (%) (Auto) 0 % Neutrophils # (Auto) 5.6 x10^3uL Lymphocytes # (Auto) 0.6 x10^3/uL Monocytes # (Auto) 0.7 x10^3/uL Eosinophils # (Auto) 0.1 x10^3/uL Basophils # (Auto) 0.0 x10^3/uL Sodium Level 140 mmol/L Potassium Level 3.8 mmol/L Chloride Level 105 mmol/L Carbon Dioxide Level 26 mmol/L Anion Gap 9 Blood Urea Nitrogen 30 mg/dL Creatinine 1.1 mg/dL Estimated GFR (Cockcroft-Gault) 66.8 BUN/Creatinine Ratio 27 Glucose Level 159 mg/dL Calcium Level 8.5 mg/dL Total Bilirubin 0.5 mg/dL Aspartate Amino Transf (AST/SGOT) 21 U/L Alanine Aminotransferase (ALT/SGPT) 25 U/L Alkaline Phosphatase 85 U/L Total Protein 6.3 g/dL Albumin 2.4 g/dL Albumin/Globulin Ratio 0.6 Glucose (Fingerstick) 144 mg/dL 179 mg/dL 149 mg/dL Test 08/19/21 19:08 Glucose (Fingerstick) 175 mg/dL Current Medications Medications (Trade) Dose Ordered Sig/Nicky Route PRN Reason Start Time Stop Time Status Last Admin Dose Admin Acetaminophen (Tylenol) 650 mg PRN Q6HRS PRN PO mild pain/temp >100.3 F 08/05/21 16:30 08/05/21 20:32 Aripiprazole (Abilify) 10 mg DAILY PO 08/06/21 09:00 08/19/21 08:34 Aspirin (Aspirin Chewable) 81 mg DAILY PO 08/06/21 09:00 08/19/21 08:34 Bupropion HCl (Wellbutrin Xl) 150 mg DAILY PO 08/06/21 09:00 08/19/21 08:34 Clopidogrel Bisulfate (Plavix) 75 mg DAILY PO 08/06/21 09:00 08/19/21 08:34 Docusate Sodium (Colace) 100 mg BID PO 08/05/21 21:00 08/19/21 20:01 Duloxetine HCl (Cymbalta) 30 mg AFTRNOON PO 08/06/21 13:00 2/8/22 12:28 Duloxetine HCl (Cymbalta) 60 mg DAILY PO 08/06/21 09:00 08/19/21 08:33 Furosemide (Lasix) 40 mg DAILY PO 08/06/21 09:00 08/19/21 08:34 Lamotrigine (LaMICtal) 150 mg QHS PO 08/05/21 21:00 08/14/21 10:06 DC 08/13/21 19:55 Linagliptin (Tradjenta) 5 mg DAILY PO 08/06/21 09:00 08/19/21 08:35 Al Hydroxide/Mg Hydroxide (Mylanta Plus Xs) 15 ml PRN AFTMEALHC PRN PO DYSPEPSIA 08/05/21 16:30 Magnesium Citrate (Citroma) 296 ml PRN 1X PRN PO 2nd choice constipation 08/05/21 16:30 08/12/21 07:19 DC 08/11/21 18:33 Mirtazapine (Remeron) 30 mg HS PO 08/05/21 21:00 08/19/21 20:02 Neomycin/ Polymyxin/ Bacitracin (Triple Antibiotic Ointment) 1 pkt BID TP 08/05/21 21:00 08/19/21 20:03 Nystatin (Nystop) 1 neelima BID TP 08/05/21 21:00 08/19/21 20:02 Olanzapine (ZyPREXA ZYDIS) 2.5 mg PRN Q2HRS PRN PO psychosis/agitation 08/05/21 16:30 08/19/21 09:53 Oxycodone/ Acetaminophen (Percocet 10/325) 1 tab PRN Q6HRS PRN PO MODERATE TO SEVERE PAIN 08/05/21 16:30 08/19/21 20:04 Potassium Chloride (Klor-Con) 30 meq DAILY PO 08/06/21 09:00 08/19/21 08:34 Trazodone HCl (Desyrel) 50 mg PRN QHS PRN PO INSOMNIA 08/05/21 16:30 08/14/21 19:55 Trazodone HCl (Desyrel) 100 mg HS PO 08/05/21 21:00 08/19/21 20:01 Trolamine Salicylate (Myoplex) 1 neelima PRN QID PRN TP muscle pain 08/05/21 16:30 UNV Atorvastatin Calcium (Lipitor) 80 mg QHS PO 08/05/21 21:00 08/19/21 20:02 Carvedilol (Coreg) 37.5 mg BIDWMEALS PO 08/05/21 17:00 08/19/21 17:16 Non-Formulary Medication (Insulin Lispro (Humalog)) 0-5 Units, low dose scale. TIDWMEALS SQ 08/05/21 17:00 UNV Multivitamins/ Calcium (Thera-M Plus) 1 tab DAILY PO 08/06/21 09:00 08/19/21 08:35 Multi-Ingredient Ointment (Analgesic [place]) 1 neelima PRN QID PRN TP MUSCLE PAIN 08/05/21 17:00 Insulin Human Lispro (HumaLOG) 0-5 UNITS TIDWMEALS SQ 08/05/21 17:00 08/10/21 13:08 Dextrose (Dextrose 50%-Water Syringe) 12.5 gm PRN Q15MIN PRN IV SEE COMMENTS 08/05/21 17:00 Magnesium Hydroxide (Milk Of Magnesia) 2,400 mg PRN QHS PRN PO 1st choice CONSTIPATION 08/08/21 22:15 08/10/21 08:12 Senna/Docusate Sodium (Senna Plus) 1 tab PRN BID PRN PO 2nd choice CONSTIPATION 08/12/21 15:30 08/18/21 20:28 Lamotrigine (LaMICtal) 200 mg QHS PO 08/14/21 21:00 08/19/21 17:54 DC 08/18/21 20:25 Lamotrigine (LaMICtal) 150 mg QHS PO 08/19/21 21:00 08/19/21 20:01 Lamotrigine (LaMICtal) 100 mg DAILY PO 08/20/21 09:00 Current Medications Medications (Trade) Dose Ordered Sig/Nicky Route PRN Reason Start Time Stop Time Status Last Admin Dose Admin Lamotrigine (LaMICtal) 150 mg QHS PO 08/19/21 21:00 08/19/21 20:01 I have reviewed the current psychotropics carefully including drug interactions. Risk benefit ratio favors no change other than as noted in my dictated progress note. Diagnosis: Problems: (1) Impulse control disorder, unspecified (2) Anxiety disorder, unspecified (3) Major depressive disorder, recurrent ESE LEVI MD Aug 19, 2021 21:22
[2021-08-20] MEDS: MAGNESIUM HYDROXIDE 2,400 MG/30 ML ORAL.SUSP. PO PRN ×2 (05:16→20:33)
[2021-08-20 06:07] VITALS: BP 146/96
--- NOTE | 2021-08-20 07:28 | PDOC ---
Exam Note: Josef Note: This note is a late entry for 08/18/2021 covers elements not covered in my initial note. Subjective: The patient was seen individually on 08/18/2021, discussed and reviewed the chart with Julia MODI. The patient slept 7 hours previous night. I met with him in the evening in his room. Oral intake is poor. He is in bed, needs a Shyam lift for transfers. He tries to throw himself out of bed, splitting staff at times with statements per nursing report. Review of Systems: No CV, , eye, ENT system symptoms on review. Ambulation impaired. Mental Status Exam: The patient is awake, alert, oriented. Speech is coherent. He is very animated, appreciative of my visit with him. Abstraction fair. Computation impaired. Language function intact. Mood and affect remains somewhat anxious depressed, withdrawn but better than before. Laboratory Data: Reviewed. Impression: Major depressive disorder, recurrent, rule out psychotic features. Anxiety disorder unspecified. Plan: No change from initial note. Adjust further as clinically indicated. Assessment: Vital Signs/I&O: Vital Signs Date Time Temp Pulse Resp B/P (MAP) Pulse Ox O2 Delivery O2 Flow Rate FiO2 08/20/21 06:07 97.3 104 22 146/96 (113) 97 08/18/21 15:49 intentional rapid breathing I & O 08/19/21 08/19/21 08/20/21 15:00 23:00 07:00 Intake Total 360 ml 240 ml Balance 360 ml 240 ml Labs: Laboratory Tests Test 08/19/21 07:28 08/19/21 12:32 08/19/21 16:52 08/19/21 19:08 Glucose (Fingerstick) 144 mg/dL (70-99) H 179 mg/dL (70-99) H 149 mg/dL (70-99) H 175 mg/dL (70-99) H Current Medications: Meds: Current Medications Medications (Trade) Dose Ordered Sig/Nicky Route PRN Reason Start Time Stop Time Status Last Admin Dose Admin Lamotrigine (LaMICtal) 150 mg QHS PO 08/19/21 21:00 08/19/21 20:01 I have reviewed the current psychotropics carefully including drug interactions. Risk benefit ratio favors no change other than as noted in my dictated progress note. Diagnosis: Problems: (1) Impulse control disorder, unspecified (2) Anxiety disorder, unspecified (3) Major depressive disorder, recurrent ESE LEVI MD Aug 20, 2021 07:28
--- NOTE | 2021-08-20 07:44 | PDOC ---
Exam Note: Josef Note: This note is a late entry for 08/19/2021 covers elements not covered in my initial note. Subjective: The patient was seen individually on 08/19/2021, discussed and reviewed the chart with Kay MODI. The patient slept 2-3/4 hours previous night. According to the nursing staff, the patient has been appearing somewhat depressed, hopeless, anxious, and very needy. He was asking for a clinical nursing assistant to assist him 3 times in about 10 mins., to change his position. Some of this is understandable given his significant morbidity/obesity/wounds. He did receive Zyprexa at 9.30 a.m., Percocet 12.30 p.m. He continues to have some mood swings. He was extremely restless in his bed apologizing as I met with him that he had been demanding of nursing staff and stating he was stupid and wanted to hit himself. We processed this at some length. Due to his restlessness he would push the bed sheets off his bed and was lying on the plastic mattress rather uncomfortable in cold. I did talk to the nursing staff to assist him. Review of Systems: No CV, , eye, ENT system symptoms on review. Ambulation impaired. Mental Status Exam: The patient is awake, alert, oriented. He was extremely restless in his bed apologizing as I met with him that he had been demanding of nursing staff and stating he was stupid and wanted to hit himself. We processed this at some length. Speech is coherent. Abstraction fair. Computation impaired. Language function intact. Mood and affect remains somewhat labile, anxious. Laboratory Data: Reviewed. Impression: Major depressive disorder, recurrent, rule out psychotic features. Anxiety disorder unspecified. Plan: Given the patients ongoing mood lability, we will increase Lamictal from 200 mg a day to 100 mg a.m. and 150 mg h.s. Continue rest unchanged. Assessment: Vital Signs/I&O: Vital Signs Date Time Temp Pulse Resp B/P (MAP) Pulse Ox O2 Delivery O2 Flow Rate FiO2 08/20/21 06:07 97.3 104 22 146/96 (113) 97 08/18/21 15:49 intentional rapid breathing I & O 08/19/21 08/19/21 08/20/21 15:00 23:00 07:00 Intake Total 360 ml 240 ml Balance 360 ml 240 ml Labs: Laboratory Tests Test 08/19/21 12:32 08/19/21 16:52 08/19/21 19:08 Glucose (Fingerstick) 179 mg/dL (70-99) H 149 mg/dL (70-99) H 175 mg/dL (70-99) H Current Medications: Meds: Current Medications Medications (Trade) Dose Ordered Sig/Nicky Route PRN Reason Start Time Stop Time Status Last Admin Dose Admin Lamotrigine (LaMICtal) 150 mg QHS PO 08/19/21 21:00 08/19/21 20:01 I have reviewed the current psychotropics carefully including drug interactions. Risk benefit ratio favors no change other than as noted in my dictated progress note. Diagnosis: Problems: (1) Impulse control disorder, unspecified (2) Anxiety disorder, unspecified (3) Major depressive disorder, recurrent ESE LEVI MD Aug 20, 2021 07:44
[2021-08-20] MEDS: INSULIN LISPRO 300 UNITS/3 ML VIAL. SQ SCH ×3 (08:00→17:00)
[2021-08-20] MEDS: NYSTATIN TOPICAL POWDER 15GM BOTTLE. TP SCH ×2 (08:33→20:33)
[2021-08-20] MEDS: buPROPion XL 150 MG TAB.ER.24H PO SCH (08:33)
[2021-08-20] MEDS: DOCUSATE SODIUM 100 MG CAPSULE PO SCH ×2 (08:33→20:29)
[2021-08-20] MEDS: NEOMY/BACITR/POLYMYXIN OINT PACKET. TP SCH ×2 (08:33→20:33)
[2021-08-20] MEDS: CARVEDILOL 12.5 MG TABLET PO SCH ×2 (08:34→17:12)
[2021-08-20] MEDS: FUROSEMIDE 40 MG TABLET PO SCH (08:34)
[2021-08-20] MEDS: LINAGLIPTIN 5 MG TABLET PO SCH (08:34)
[2021-08-20] MEDS: POTASSIUM CHLORIDE 10 MEQ TABLET.ER. PO SCH (08:34)
[2021-08-20] MEDS: lamoTRIgine 100 MG TABLET. PO SCH ×2 (08:35→20:30)
[2021-08-20] MEDS: DULoxetine HCL 60 MG CAPSULE.DR PO SCH (08:35)
[2021-08-20] MEDS: MULTIVITAMIN with MINERAL TABLET. PO SCH (08:35)
[2021-08-20] MEDS: ASPIRIN CHEWABLE 81 MG TABLET. PO SCH (08:35)
[2021-08-20] MEDS: CLOPIDOGREL BISULFATE 75 MG TABLET PO SCH (08:35)
[2021-08-20] MEDS: ARIPiprazole 10 MG TABLET PO SCH (08:35)
[2021-08-20] MEDS: DULoxetine HCL 30 MG CAPSULE.DR PO SCH (12:27)
[2021-08-20 15:35] VITALS: BP 105/69
[2021-08-20] MEDS: traZODone 100 MG TABLET. PO SCH (20:28)
[2021-08-20] MEDS: SENNOSIDES/DOCUSATE 8.6/50MG TABLET. PO PRN (20:29)
[2021-08-20] MEDS: MIRTAZAPINE 30 MG TABLET PO SCH (20:29)
[2021-08-20] MEDS: ATORVASTATIN CALCIUM 20 MG TABLET PO SCH (20:30)
--- NOTE | 2021-08-20 21:19 | PDOC ---
Exam Note: Josef Note: Please also refer to the separate dictated note~for this date of service dictated separately.~Patient seen individually. Discussed the patient with Nursing staff reviewed the chart.~Reviewed interim history and current functioning. Reviewed vital signs,~Labs/ Radiology~and current medications noted below. Continue current treatment with the changes noted in the dictated addendum note Assessment: Vital Signs/I&O: Vital Signs Date Time Temp Pulse Resp B/P (MAP) Pulse Ox O2 Delivery O2 Flow Rate FiO2 08/20/21 17:12 90 105/69 08/20/21 15:35 97.2 20 97 Room Air I & O 08/19/21 08/19/21 08/20/21 15:00 23:00 07:00 Intake Total 360 ml 240 ml Balance 360 ml 240 ml Labs: Laboratory Tests Test 08/20/21 07:46 08/20/21 16:51 08/20/21 19:04 Glucose (Fingerstick) 161 mg/dL (70-99) H 172 mg/dL (70-99) H 211 mg/dL (70-99) H Current Medications: Meds: Laboratory Tests Test 08/20/21 07:46 08/20/21 16:51 08/20/21 19:04 Glucose (Fingerstick) 161 mg/dL 172 mg/dL 211 mg/dL Current Medications Medications (Trade) Dose Ordered Sig/Nicky Route PRN Reason Start Time Stop Time Status Last Admin Dose Admin Acetaminophen (Tylenol) 650 mg PRN Q6HRS PRN PO mild pain/temp >100.3 F 08/05/21 16:30 08/05/21 20:32 Aripiprazole (Abilify) 10 mg DAILY PO 08/06/21 09:00 08/20/21 08:35 Aspirin (Aspirin Chewable) 81 mg DAILY PO 08/06/21 09:00 08/20/21 08:35 Bupropion HCl (Wellbutrin Xl) 150 mg DAILY PO 08/06/21 09:00 08/20/21 08:33 Clopidogrel Bisulfate (Plavix) 75 mg DAILY PO 08/06/21 09:00 08/20/21 08:35 Docusate Sodium (Colace) 100 mg BID PO 08/05/21 21:00 08/20/21 20:29 Duloxetine HCl (Cymbalta) 30 mg AFTRNOON PO 08/06/21 13:00 08/20/21 12:27 Duloxetine HCl (Cymbalta) 60 mg DAILY PO 08/06/21 09:00 08/20/21 08:35 Furosemide (Lasix) 40 mg DAILY PO 08/06/21 09:00 08/20/21 08:34 Lamotrigine (LaMICtal) 150 mg QHS PO 08/05/21 21:00 08/14/21 10:06 DC 08/13/21 19:55 Linagliptin (Tradjenta) 5 mg DAILY PO 08/06/21 09:00 08/20/21 08:34 Al Hydroxide/Mg Hydroxide (Mylanta Plus Xs) 15 ml PRN AFTMEALHC PRN PO DYSPEPSIA 08/05/21 16:30 Magnesium Citrate (Citroma) 296 ml PRN 1X PRN PO 2nd choice constipation 08/05/21 16:30 08/12/21 07:19 DC 08/11/21 18:33 Mirtazapine (Remeron) 30 mg HS PO 08/05/21 21:00 08/20/21 20:29 Neomycin/ Polymyxin/ Bacitracin (Triple Antibiotic Ointment) 1 pkt BID TP 08/05/21 21:00 08/20/21 20:33 Nystatin (Nystop) 1 neelima BID TP 08/05/21 21:00 08/20/21 20:33 Olanzapine (ZyPREXA ZYDIS) 2.5 mg PRN Q2HRS PRN PO psychosis/agitation 08/05/21 16:30 08/19/21 09:53 Oxycodone/ Acetaminophen (Percocet 10/325) 1 tab PRN Q6HRS PRN PO MODERATE TO SEVERE PAIN 08/05/21 16:30 08/19/21 20:04 Potassium Chloride (Klor-Con) 30 meq DAILY PO 08/06/21 09:00 08/20/21 08:34 Trazodone HCl (Desyrel) 50 mg PRN QHS PRN PO INSOMNIA 08/05/21 16:30 08/14/21 19:55 Trazodone HCl (Desyrel) 100 mg HS PO 08/05/21 21:00 08/20/21 20:28 Trolamine Salicylate (Myoplex) 1 neelima PRN QID PRN TP muscle pain 08/05/21 16:30 UNV Atorvastatin Calcium (Lipitor) 80 mg QHS PO 08/05/21 21:00 08/20/21 20:30 Carvedilol (Coreg) 37.5 mg BIDWMEALS PO 08/05/21 17:00 08/20/21 17:12 Non-Formulary Medication (Insulin Lispro (Humalog)) 0-5 Units, low dose scale. TIDWMEALS SQ 08/05/21 17:00 UNV Multivitamins/ Calcium (Thera-M Plus) 1 tab DAILY PO 08/06/21 09:00 08/20/21 08:35 Multi-Ingredient Ointment (Analgesic [place]) 1 neelima PRN QID PRN TP MUSCLE PAIN 08/05/21 17:00 Insulin Human Lispro (HumaLOG) 0-5 UNITS TIDWMEALS SQ 08/05/21 17:00 08/10/21 13:08 Dextrose (Dextrose 50%-Water Syringe) 12.5 gm PRN Q15MIN PRN IV SEE COMMENTS 08/05/21 17:00 Magnesium Hydroxide (Milk Of Magnesia) 2,400 mg PRN QHS PRN PO 1st choice CONSTIPATION 08/08/21 22:15 08/20/21 20:33 Senna/Docusate Sodium (Senna Plus) 1 tab PRN BID PRN PO 2nd choice CONSTIPATION 08/12/21 15:30 08/20/21 20:29 Lamotrigine (LaMICtal) 200 mg QHS PO 08/14/21 21:00 08/19/21 17:54 DC 08/18/21 20:25 Lamotrigine (LaMICtal) 150 mg QHS PO 08/19/21 21:00 08/20/21 20:30 Lamotrigine (LaMICtal) 100 mg DAILY PO 08/20/21 09:00 08/20/21 08:35 Current Medications Medications (Trade) Dose Ordered Sig/Nicky Route PRN Reason Start Time Stop Time Status Last Admin Dose Admin Lamotrigine (LaMICtal) 100 mg DAILY PO 08/20/21 09:00 08/20/21 08:35 I have reviewed the current psychotropics carefully including drug interactions. Risk benefit ratio favors no change other than as noted in my dictated progress note. Diagnosis: Problems: (1) Impulse control disorder, unspecified (2) Anxiety disorder, unspecified (3) Major depressive disorder, recurrent ESE LEVI MD Aug 20, 2021 21:19
[2021-08-21 05:49] VITALS: BP 128/81
[2021-08-21] MEDS: INSULIN LISPRO 300 UNITS/3 ML VIAL. SQ SCH ×3 (08:00→16:35)
[2021-08-21] MEDS: ASPIRIN CHEWABLE 81 MG TABLET. PO SCH (08:25)
[2021-08-21] MEDS: CLOPIDOGREL BISULFATE 75 MG TABLET PO SCH (08:25)
[2021-08-21] MEDS: FUROSEMIDE 40 MG TABLET PO SCH (08:25)
[2021-08-21] MEDS: POTASSIUM CHLORIDE 10 MEQ TABLET.ER. PO SCH (08:25)
[2021-08-21] MEDS: MULTIVITAMIN with MINERAL TABLET. PO SCH (08:25)
[2021-08-21] MEDS: ARIPiprazole 10 MG TABLET PO SCH (08:25)
[2021-08-21] MEDS: buPROPion XL 150 MG TAB.ER.24H PO SCH (08:25)
[2021-08-21] MEDS: lamoTRIgine 100 MG TABLET. PO SCH ×2 (08:26→20:41)
[2021-08-21] MEDS: DOCUSATE SODIUM 100 MG CAPSULE PO SCH ×2 (08:26→20:41)
[2021-08-21] MEDS: DULoxetine HCL 60 MG CAPSULE.DR PO SCH (08:26)
[2021-08-21] MEDS: CARVEDILOL 12.5 MG TABLET PO SCH ×2 (08:26→16:02)
[2021-08-21] MEDS: LINAGLIPTIN 5 MG TABLET PO SCH (08:26)
[2021-08-21] MEDS: NEOMY/BACITR/POLYMYXIN OINT PACKET. TP SCH ×2 (08:26→20:42)
[2021-08-21] MEDS: NYSTATIN TOPICAL POWDER 15GM BOTTLE. TP SCH ×2 (08:27→20:40)
--- NOTE | 2021-08-21 11:28 | TX PLAN ---
Interdisciplinary Tx Plan Admission Information Aug 05, 2021 at 16:20 Legal Status (on Admission): Voluntary DPOA/Guardian Name: Son-Inocencio Maravilla (not enacted at this time as pt is a self sign) Contact Other Contact Name: Luanne Other Contact Verified Code Status: Full Code Allergies: Coded Allergies: No Known Drug Allergies (Unverified , 04/25/21) Diagnoses Primary Diagnosis: 1. Major depressive disorder, recurrent, moderate. 2. Generalized anxiety disorder. Reasons for Admission: Relation/conflict, Agitated, Depressed, Sig. Change Appetite, Anxiety/Panic, Suicidal ideation, Poor impulse control Problem in Patient's Words: I am terribly depressed and anxious. 08/07/21-Pt reports being very sad. Additional Admission Comments: Per intake pt is depressed, anxious, not eating to tank blood sugar to kill himself, put himself on the floor seven times over a weekend, verbally aggressive toward staff, SI, and texted his son expressing plan to end his life. 08/07/21-Pt reports being very sad. He has spent time in his bed as he has wounds on his legs that require special care. Some of the concern is if he is scratching himself intentionally to create the wounds or if the wounds are created by his skin sticking to his mattress and during transitions using the guerita lift. Problems Active Problems: Depression, anxiety, poor appetite, poor impulse control Inactive Problems: Suicidal ideation Pt Strengths/Limitations Ability for [place]: Poor Cognitive Functioning/Ability: Good Communication Skills/Ability: Good Financial Resources: Good Insight/Judgement: Poor Intellectual Ability: Good Physical Health: Poor Social Skills: Fair Stability in Family: Fair Stability in School/Work: Fair Verbal Skills: Good Discharge Criteria Discharge Criteria: Able meet basic life need, No need for close observ., Adequate arrangements @DC, Adequate self-care, Verbal commit med comply, Improved behavior, Improved mood/thought Other Discharge Comments: None at this time. Preliminary Discharge Plan Preliminary DC Plan: Current Living Arrange. Other Arrangements: Pt facility is looking for an alternate placement, but will accept him back Special Precautions Special Precautions: Other Fall Risk: High Other Precautions (specify): Pt has put himself on the floor. He offers little help during transfers. Initial D/C Plan Pt to return to [facility] should alternative placement not be found. Identified Discharge Needs: None at this time. Currently Utilized Resources Currently Utilized Resources/P: PCP-Dr. Daisy Sanchez Psychiatrist-Dr. Ashley Pichardo, [facility] DPOA (not currently enacted)-Son-Inocencio Maravilla Referrals Community Resources: None at this time. Identified Problems/Hx/Goals Objectives/Short-Term Goals Short Term Goals in Patient's: Need help feeling less depressed and anxious. Interventions/Frequency Staff Interventions/Frequency&: Psychiatry to assess pt three times per week for medication management. Nursing to assess behaviors, monitor medications, and complete 15 minute checks daily. Social work to see pt at least two times weekly to aid in return to placement. Activities to encourage pt to participate in group activities daily. 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 Education: Graduated from [employer] in [place], [place]. Pt reports having taken some classes at the [facility]. Community Follow-up PCP Community Provider/Family Inpu: Pt is a self sign and participated in the development of his own treatment plan. Treatment Plan Explained Patient/Storeperson had this treatment plan explained to him/her as indicated by the signature below and has been given the opportunity to ask questions and make suggestions: Date: Patient/Storeperson Signature: Status Update Update Over the past week pt has been eating an average of 25% of his meals and and sleeping 5 hours at night. Pt has been drowsy and spends most of the time in bed. Therefore, pt is most likely getting more sleep than just 5 hours at night. Pt continues to receive wound care. Wounds appear to be getting better. Pt continues to be labile and expresses negative thought patterns. SW and KNIFE EDGER have been spending time with pt in his room working on individual goal setting that includes, trusting in self and others, bed/wheelchair exercises, deep breathing and turning negative thoughts into positive thoughts. Pt has been med compliant. Last placed himself on the floor on 08/15/21 and has apologized for his actions stating that he believes his behaviors are a reflection of fear of being alone. Abilify will be decreased from 10mg to 5mg to help with some of the drowsiness. Pt plan once stable is for a referral to be sent to [facility]. If he is not approved there, the plan is to send him back to [facility]. EVE CORONA Aug 21, 2021 11:28
[2021-08-21] MEDS: DULoxetine HCL 30 MG CAPSULE.DR PO SCH (12:01)
[2021-08-21 15:37] VITALS: BP 97/60
[2021-08-21] MEDS: traZODone 100 MG TABLET. PO SCH (20:40)
[2021-08-21] MEDS: ATORVASTATIN CALCIUM 20 MG TABLET PO SCH (20:41)
[2021-08-21] MEDS: MIRTAZAPINE 30 MG TABLET PO SCH (20:41)
[2021-08-21] MEDS: oxyCODONE/APAP 10/325 1 TAB TABLET PO PRN (21:40)
--- NOTE | 2021-08-21 21:46 | PDOC ---
Exam Note: Josef Note: Please also refer to the separate dictated note~for this date of service dictated separately.~Patient seen individually. Discussed the patient with Nursing staff reviewed the chart.~Reviewed interim history and current functioning. Reviewed vital signs,~Labs/ Radiology~and current medications noted below. Continue current treatment with the changes noted in the dictated addendum note Assessment: Vital Signs/I&O: Vital Signs Date Time Temp Pulse Resp B/P (MAP) Pulse Ox O2 Delivery O2 Flow Rate FiO2 08/21/21 16:02 99 97/60 08/21/21 15:37 97.6 18 94 08/20/21 15:35 Room Air I & O 08/20/21 08/20/21 08/21/21 15:00 23:00 07:00 Intake Total 600 ml 460 ml Balance 600 ml 460 ml Labs: Laboratory Tests Test 08/21/21 07:33 08/21/21 12:04 08/21/21 16:30 08/21/21 19:13 Glucose (Fingerstick) 164 mg/dL (70-99) H 193 mg/dL (70-99) H 165 mg/dL (70-99) H 181 mg/dL (70-99) H Current Medications: Meds: Laboratory Tests Test 08/21/21 07:33 08/21/21 12:04 08/21/21 16:30 08/21/21 19:13 Glucose (Fingerstick) 164 mg/dL 193 mg/dL 165 mg/dL 181 mg/dL Current Medications Medications (Trade) Dose Ordered Sig/Nicky Route PRN Reason Start Time Stop Time Status Last Admin Dose Admin Acetaminophen (Tylenol) 650 mg PRN Q6HRS PRN PO mild pain/temp >100.3 F 08/05/21 16:30 08/05/21 20:32 Aripiprazole (Abilify) 10 mg DAILY PO 08/06/21 09:00 08/21/21 10:13 DC 08/21/21 08:25 Aspirin (Aspirin Chewable) 81 mg DAILY PO 08/06/21 09:00 08/21/21 08:25 Bupropion HCl (Wellbutrin Xl) 150 mg DAILY PO 08/06/21 09:00 08/21/21 08:25 Clopidogrel Bisulfate (Plavix) 75 mg DAILY PO 08/06/21 09:00 08/21/21 08:25 Docusate Sodium (Colace) 100 mg BID PO 08/05/21 21:00 08/21/21 20:41 Duloxetine HCl (Cymbalta) 30 mg AFTRNOON PO 08/06/21 13:00 08/21/21 12:01 Duloxetine HCl (Cymbalta) 60 mg DAILY PO 08/06/21 09:00 08/21/21 08:26 Furosemide (Lasix) 40 mg DAILY PO 08/06/21 09:00 08/21/21 08:25 Lamotrigine (LaMICtal) 150 mg QHS PO 08/05/21 21:00 08/14/21 10:06 DC 08/13/21 19:55 Linagliptin (Tradjenta) 5 mg DAILY PO 08/06/21 09:00 08/21/21 08:26 Al Hydroxide/Mg Hydroxide (Mylanta Plus Xs) 15 ml PRN AFTMEALHC PRN PO DYSPEPSIA 08/05/21 16:30 Magnesium Citrate (Citroma) 296 ml PRN 1X PRN PO 2nd choice constipation 08/05/21 16:30 08/12/21 07:19 DC 08/11/21 18:33 Mirtazapine (Remeron) 30 mg HS PO 08/05/21 21:00 08/21/21 20:41 Neomycin/ Polymyxin/ Bacitracin (Triple Antibiotic Ointment) 1 pkt BID TP 08/05/21 21:00 08/21/21 20:42 Nystatin (Nystop) 1 neelima BID TP 08/05/21 21:00 08/21/21 20:40 Olanzapine (ZyPREXA ZYDIS) 2.5 mg PRN Q2HRS PRN PO psychosis/agitation 08/05/21 16:30 08/19/21 09:53 Oxycodone/ Acetaminophen (Percocet 10/325) 1 tab PRN Q6HRS PRN PO MODERATE TO SEVERE PAIN 08/05/21 16:30 08/21/21 21:40 Potassium Chloride (Klor-Con) 30 meq DAILY PO 08/06/21 09:00 08/21/21 08:25 Trazodone HCl (Desyrel) 50 mg PRN QHS PRN PO INSOMNIA 08/05/21 16:30 08/14/21 19:55 Trazodone HCl (Desyrel) 100 mg HS PO 08/05/21 21:00 08/21/21 20:40 Trolamine Salicylate (Myoplex) 1 neelima PRN QID PRN TP muscle pain 08/05/21 16:30 UNV Atorvastatin Calcium (Lipitor) 80 mg QHS PO 08/05/21 21:00 08/21/21 20:41 Carvedilol (Coreg) 37.5 mg BIDWMEALS PO 08/05/21 17:00 08/21/21 08:26 Non-Formulary Medication (Insulin Lispro (Humalog)) 0-5 Units, low dose scale. TIDWMEALS SQ 08/05/21 17:00 UNV Multivitamins/ Calcium (Thera-M Plus) 1 tab DAILY PO 08/06/21 09:00 08/21/21 08:25 Multi-Ingredient Ointment (Analgesic [place]) 1 neelima PRN QID PRN TP MUSCLE PAIN 08/05/21 17:00 Insulin Human Lispro (HumaLOG) 0-5 UNITS TIDWMEALS SQ 08/05/21 17:00 08/10/21 13:08 Dextrose (Dextrose 50%-Water Syringe) 12.5 gm PRN Q15MIN PRN IV SEE COMMENTS 08/05/21 17:00 Magnesium Hydroxide (Milk Of Magnesia) 2,400 mg PRN QHS PRN PO 1st choice CONSTIPATION 08/08/21 22:15 08/20/21 20:33 Senna/Docusate Sodium (Senna Plus) 1 tab PRN BID PRN PO 2nd choice CONSTIPATION 08/12/21 15:30 08/20/21 20:29 Lamotrigine (LaMICtal) 200 mg QHS PO 08/14/21 21:00 08/19/21 17:54 DC 08/18/21 20:25 Lamotrigine (LaMICtal) 150 mg QHS PO 08/19/21 21:00 08/21/21 20:41 Lamotrigine (LaMICtal) 100 mg DAILY PO 08/20/21 09:00 08/21/21 08:26 Aripiprazole (Abilify) 5 mg HS PO 08/22/21 21:00 I have reviewed the current psychotropics carefully including drug interactions. Risk benefit ratio favors no change other than as noted in my dictated progress note. Diagnosis: Problems: (1) Impulse control disorder, unspecified (2) Anxiety disorder, unspecified (3) Major depressive disorder, recurrent ESE LEVI MD Aug 21, 2021 21:46
[2021-08-22 05:46] VITALS: BP 138/81
[2021-08-22] MEDS: INSULIN LISPRO 300 UNITS/3 ML VIAL. SQ SCH ×3 (08:00→17:00)
[2021-08-22] MEDS: DOCUSATE SODIUM 100 MG CAPSULE PO SCH ×2 (08:45→19:59)
[2021-08-22] MEDS: buPROPion XL 150 MG TAB.ER.24H PO SCH (08:45)
[2021-08-22] MEDS: CARVEDILOL 12.5 MG TABLET PO SCH ×2 (08:45→17:37)
[2021-08-22] MEDS: ASPIRIN CHEWABLE 81 MG TABLET. PO SCH (08:45)
[2021-08-22] MEDS: lamoTRIgine 100 MG TABLET. PO SCH ×2 (08:46→19:59)
[2021-08-22] MEDS: DULoxetine HCL 60 MG CAPSULE.DR PO SCH (08:46)
[2021-08-22] MEDS: LINAGLIPTIN 5 MG TABLET PO SCH (08:46)
[2021-08-22] MEDS: CLOPIDOGREL BISULFATE 75 MG TABLET PO SCH (08:46)
[2021-08-22] MEDS: NEOMY/BACITR/POLYMYXIN OINT PACKET. TP SCH ×2 (08:46→19:59)
[2021-08-22] MEDS: MULTIVITAMIN with MINERAL TABLET. PO SCH (08:46)
[2021-08-22] MEDS: FUROSEMIDE 40 MG TABLET PO SCH (08:46)
[2021-08-22] MEDS: POTASSIUM CHLORIDE 10 MEQ TABLET.ER. PO SCH (08:46)
[2021-08-22] MEDS: NYSTATIN TOPICAL POWDER 15GM BOTTLE. TP SCH ×2 (08:46→19:59)
[2021-08-22] MEDS: DULoxetine HCL 30 MG CAPSULE.DR PO SCH (12:17)
[2021-08-22 15:38] VITALS: BP 142/90
[2021-08-22] MEDS: ACETAMINOPHEN 325 MG TABLET PO PRN (17:43)
[2021-08-22] MEDS: ARIPiprazole 5 MG TABLET PO SCH (20:00)
[2021-08-22] MEDS: MIRTAZAPINE 30 MG TABLET PO SCH (20:00)
[2021-08-22] MEDS: traZODone 100 MG TABLET. PO SCH (20:00)
[2021-08-22] MEDS: ATORVASTATIN CALCIUM 20 MG TABLET PO SCH (20:01)
[2021-08-22] MEDS: SENNOSIDES/DOCUSATE 8.6/50MG TABLET. PO SCH (20:01)
--- NOTE | 2021-08-22 20:49 | PDOC ---
Exam Note: Josef Note: Please also refer to the separate dictated note~for this date of service dictated separately.~Patient seen individually. Discussed the patient with Nursing staff reviewed the chart.~Reviewed interim history and current functioning. Reviewed vital signs,~Labs/ Radiology~and current medications noted below. Continue current treatment with the changes noted in the dictated addendum note Assessment: Vital Signs/I&O: Vital Signs Date Time Temp Pulse Resp B/P (MAP) Pulse Ox O2 Delivery O2 Flow Rate FiO2 08/22/21 17:37 103 142/90 08/22/21 15:38 97.8 20 98 Room Air I & O 08/21/21 08/21/21 08/22/21 15:00 23:00 07:00 Intake Total 580 ml 460 ml Balance 580 ml 460 ml Labs: Laboratory Tests Test 08/22/21 07:42 08/22/21 12:02 08/22/21 17:13 08/22/21 19:24 Glucose (Fingerstick) 161 mg/dL (70-99) H 162 mg/dL (70-99) H 153 mg/dL (70-99) H 170 mg/dL (70-99) H Current Medications: Meds: Laboratory Tests Test 08/22/21 07:42 08/22/21 12:02 08/22/21 17:13 08/22/21 19:24 Glucose (Fingerstick) 161 mg/dL 162 mg/dL 153 mg/dL 170 mg/dL Current Medications Medications (Trade) Dose Ordered Sig/Nicky Route PRN Reason Start Time Stop Time Status Last Admin Dose Admin Acetaminophen (Tylenol) 650 mg PRN Q6HRS PRN PO mild pain/temp >100.3 F 08/05/21 16:30 08/22/21 17:43 Aripiprazole (Abilify) 10 mg DAILY PO 08/06/21 09:00 08/21/21 10:13 DC 08/21/21 08:25 Aspirin (Aspirin Chewable) 81 mg DAILY PO 08/06/21 09:00 08/22/21 08:45 Bupropion HCl (Wellbutrin Xl) 150 mg DAILY PO 08/06/21 09:00 08/22/21 08:45 Clopidogrel Bisulfate (Plavix) 75 mg DAILY PO 08/06/21 09:00 08/22/21 08:46 Docusate Sodium (Colace) 100 mg BID PO 08/05/21 21:00 08/22/21 19:59 Duloxetine HCl (Cymbalta) 30 mg AFTRNOON PO 08/06/21 13:00 08/22/21 12:17 Duloxetine HCl (Cymbalta) 60 mg DAILY PO 08/06/21 09:00 08/22/21 08:46 Furosemide (Lasix) 40 mg DAILY PO 08/06/21 09:00 08/22/21 08:46 Lamotrigine (LaMICtal) 150 mg QHS PO 08/05/21 21:00 08/14/21 10:06 DC 08/13/21 19:55 Linagliptin (Tradjenta) 5 mg DAILY PO 08/06/21 09:00 08/22/21 08:46 Al Hydroxide/Mg Hydroxide (Mylanta Plus Xs) 15 ml PRN AFTMEALHC PRN PO DYSPEPSIA 08/05/21 16:30 Magnesium Citrate (Citroma) 296 ml PRN 1X PRN PO 2nd choice constipation 08/05/21 16:30 08/12/21 07:19 DC 08/11/21 18:33 Mirtazapine (Remeron) 30 mg HS PO 08/05/21 21:00 08/22/21 20:00 Neomycin/ Polymyxin/ Bacitracin (Triple Antibiotic Ointment) 1 pkt BID TP 08/05/21 21:00 08/22/21 19:59 Nystatin (Nystop) 1 neelima BID TP 08/05/21 21:00 08/22/21 19:59 Olanzapine (ZyPREXA ZYDIS) 2.5 mg PRN Q2HRS PRN PO psychosis/agitation 08/05/21 16:30 08/19/21 09:53 Oxycodone/ Acetaminophen (Percocet 10/325) 1 tab PRN Q6HRS PRN PO MODERATE TO SEVERE PAIN 08/05/21 16:30 08/21/21 21:40 Potassium Chloride (Klor-Con) 30 meq DAILY PO 08/06/21 09:00 08/22/21 08:46 Trazodone HCl (Desyrel) 50 mg PRN QHS PRN PO INSOMNIA 08/05/21 16:30 08/14/21 19:55 Trazodone HCl (Desyrel) 100 mg HS PO 08/05/21 21:00 08/22/21 20:00 Trolamine Salicylate (Myoplex) 1 neelima PRN QID PRN TP muscle pain 08/05/21 16:30 UNV Atorvastatin Calcium (Lipitor) 80 mg QHS PO 08/05/21 21:00 08/22/21 20:01 Carvedilol (Coreg) 37.5 mg BIDWMEALS PO 08/05/21 17:00 08/22/21 17:37 Non-Formulary Medication (Insulin Lispro (Humalog)) 0-5 Units, low dose scale. TIDWMEALS SQ 08/05/21 17:00 UNV Multivitamins/ Calcium (Thera-M Plus) 1 tab DAILY PO 08/06/21 09:00 08/22/21 08:46 Multi-Ingredient Ointment (Analgesic [place]) 1 neelima PRN QID PRN TP MUSCLE PAIN 08/05/21 17:00 Insulin Human Lispro (HumaLOG) 0-5 UNITS TIDWMEALS SQ 08/05/21 17:00 08/10/21 13:08 Dextrose (Dextrose 50%-Water Syringe) 12.5 gm PRN Q15MIN PRN IV SEE COMMENTS 08/05/21 17:00 Magnesium Hydroxide (Milk Of Magnesia) 2,400 mg PRN QHS PRN PO 1st choice CONSTIPATION 08/08/21 22:15 08/20/21 20:33 Senna/Docusate Sodium (Senna Plus) 1 tab PRN BID PRN PO 2nd choice CONSTIPATION 08/12/21 15:30 08/22/21 13:50 DC 08/20/21 20:29 Lamotrigine (LaMICtal) 200 mg QHS PO 08/14/21 21:00 08/19/21 17:54 DC 08/18/21 20:25 Lamotrigine (LaMICtal) 150 mg QHS PO 08/19/21 21:00 08/22/21 19:59 Lamotrigine (LaMICtal) 100 mg DAILY PO 08/20/21 09:00 08/22/21 08:46 Aripiprazole (Abilify) 5 mg HS PO 08/22/21 21:00 08/22/21 20:00 Senna/Docusate Sodium (Senna Plus) 1 tab BID PO 08/22/21 21:00 08/22/21 20:01 Current Medications Medications (Trade) Dose Ordered Sig/Nicky Route PRN Reason Start Time Stop Time Status Last Admin Dose Admin Aripiprazole (Abilify) 5 mg HS PO 08/22/21 21:00 08/22/21 20:00 Senna/Docusate Sodium (Senna Plus) 1 tab BID PO 08/22/21 21:00 08/22/21 20:01 I have reviewed the current psychotropics carefully including drug interactions. Risk benefit ratio favors no change other than as noted in my dictated progress note. Diagnosis: Problems: (1) Impulse control disorder, unspecified (2) Anxiety disorder, unspecified (3) Major depressive disorder, recurrent ESE LEVI MD Aug 22, 2021 20:49
[2021-08-22] MEDS: oxyCODONE/APAP 10/325 1 TAB TABLET PO PRN (22:24)
[2021-08-23 06:16] VITALS: BP 130/91
[2021-08-23] MEDS: INSULIN LISPRO 300 UNITS/3 ML VIAL. SQ SCH ×3 (08:00→17:00)
--- NOTE | 2021-08-23 08:18 | PDOC ---
Exam Note: Josef Note: This note is a late entry for 08/21/2021 covers elements not covered in my initial note. Subjective: The patient was reviewed at treatment team meeting in the morning on 08/21/2021 with Carmen Gutierrez, Shiloh Dias, and Chen Natarajan (geriatric social work professor), Kera, activity therapy, Rachel Mclaughlin, Creative Recruiter, and Manuel MODI, discussed and reviewed the chart. Discussed and reviewed his progress, placement options, psychotropic medications, ongoing mood symptoms, sedation. Appetite is 25%. The patient slept 5 hours previous night. At times he has been coming out of his room, went to the dining room on a couple of occasions, at times he places himself on the floor, attended 9 groups in the past one week. Denies suicidal ideation but is quite frustrated with his multiple physical needs and need for Shyam lift for transfers. Also met with him at length in the evening in his room. Review of Systems: No CV, , eye, ENT system symptoms on review. Ambulation impaired. Mental Status Exam: The patient is alert, oriented. Speech is coherent. He is very appreciative of me visiting him in the evening. He states he feels hopeless that placement has not come through but denies suicidal ideation. We processed ways to improve insight into his condition. Cognitively he is well intact which makes it even more difficult for him given his marked physical disabilities. No suicidal or homicidal ideation. Laboratory Data: Reviewed. Impression: Major depressive disorder, recurrent, rule out psychotic features. Anxiety disorder unspecified. Plan: The patient has been somewhat sedated during the day. We are using Abilify to augment the antidepressants and we will reduce it from 10 mg a day to 2.5 mg h.s. Maintain Cymbalta, trazodone, Wellbutrin, Lamictal, which is being increased and Zyprexa p.r.n. for now. Reviewed drug interactions. Risk-benefit ratio favors no further change. Assessment: Vital Signs/I&O: Vital Signs Date Time Temp Pulse Resp B/P (MAP) Pulse Ox O2 Delivery O2 Flow Rate FiO2 08/23/21 06:16 98.1 104 20 130/91 (104) 93 08/22/21 15:38 Room Air I & O 08/22/21 08/22/21 08/23/21 15:00 23:00 07:00 Intake Total 480 ml 670 ml Balance 480 ml 670 ml Labs: Laboratory Tests Test 08/22/21 12:02 08/22/21 17:13 08/22/21 19:24 08/23/21 07:47 Glucose (Fingerstick) 162 mg/dL (70-99) H 153 mg/dL (70-99) H 170 mg/dL (70-99) H 154 mg/dL (70-99) H Current Medications: Meds: Current Medications Medications (Trade) Dose Ordered Sig/Nicky Route PRN Reason Start Time Stop Time Status Last Admin Dose Admin Aripiprazole (Abilify) 5 mg HS PO 08/22/21 21:00 08/22/21 20:00 Senna/Docusate Sodium (Senna Plus) 1 tab BID PO 08/22/21 21:00 08/22/21 20:01 I have reviewed the current psychotropics carefully including drug interactions. Risk benefit ratio favors no change other than as noted in my dictated progress note. Diagnosis: Problems: (1) Impulse control disorder, unspecified (2) Anxiety disorder, unspecified (3) Major depressive disorder, recurrent ESE LEVI MD Aug 23, 2021 08:18
--- NOTE | 2021-08-23 08:35 | PDOC ---
Exam Note: Josef Note: This note is a late entry for 08/22/2021 covers elements not covered in my initial note. Subjective: The patient was seen individually on 08/22/2021, discussed and reviewed the chart with Susi MODI. The patient slept 4 hours previous night. He has been attention seeking. He was constipated and manually removed it himself. He has been quite agitated today, kicking the foot end of his bed, opening up the wound. Apparently he pulled out a tooth as well though it is unclear whether it just fell off on its own. He has been started on another stool softener in addition to Colace. Review of Systems: No CV, , eye, ENT system symptoms on review. Poor ambulation, in wheelchair. Positive for constipation. Mental Status Exam: The patient is alert, oriented. Speech is coherent. Abstraction fair. Computation impaired. Language function intact. Mood and affect withdrawn. Laboratory Data: Reviewed. Impression: Major depressive disorder, recurrent, rule out psychotic features. Anxiety disorder unspecified. Plan: No change in current psychotropics. Assessment: Vital Signs/I&O: Vital Signs Date Time Temp Pulse Resp B/P (MAP) Pulse Ox O2 Delivery O2 Flow Rate FiO2 08/23/21 06:16 98.1 104 20 130/91 (104) 93 08/22/21 15:38 Room Air I & O 08/22/21 08/22/21 08/23/21 14:59 22:59 06:59 Intake Total 480 ml 670 ml Balance 480 ml 670 ml Labs: Laboratory Tests Test 08/22/21 12:02 08/22/21 17:13 08/22/21 19:24 08/23/21 07:47 Glucose (Fingerstick) 162 mg/dL (70-99) H 153 mg/dL (70-99) H 170 mg/dL (70-99) H 154 mg/dL (70-99) H Current Medications: Meds: Current Medications Medications (Trade) Dose Ordered Sig/Nicky Route PRN Reason Start Time Stop Time Status Last Admin Dose Admin Aripiprazole (Abilify) 5 mg HS PO 08/22/21 21:00 08/22/21 20:00 Senna/Docusate Sodium (Senna Plus) 1 tab BID PO 08/22/21 21:00 08/22/21 20:01 I have reviewed the current psychotropics carefully including drug interactions. Risk benefit ratio favors no change other than as noted in my dictated progress note. Diagnosis: Problems: (1) Impulse control disorder, unspecified (2) Anxiety disorder, unspecified (3) Major depressive disorder, severe ESE LEVI MD Aug 23, 2021 08:35
[2021-08-23] MEDS: buPROPion XL 150 MG TAB.ER.24H PO SCH (09:58)
[2021-08-23] MEDS: SENNOSIDES/DOCUSATE 8.6/50MG TABLET. PO SCH ×2 (09:58→18:01)
[2021-08-23] MEDS: DOCUSATE SODIUM 100 MG CAPSULE PO SCH ×2 (09:58→18:02)
[2021-08-23] MEDS: POTASSIUM CHLORIDE 10 MEQ TABLET.ER. PO SCH (09:58)
[2021-08-23] MEDS: LINAGLIPTIN 5 MG TABLET PO SCH (09:58)
[2021-08-23] MEDS: DULoxetine HCL 60 MG CAPSULE.DR PO SCH (09:58)
[2021-08-23] MEDS: NEOMY/BACITR/POLYMYXIN OINT PACKET. TP SCH ×2 (09:59→18:02)
[2021-08-23] MEDS: CLOPIDOGREL BISULFATE 75 MG TABLET PO SCH (09:59)
[2021-08-23] MEDS: NYSTATIN TOPICAL POWDER 15GM BOTTLE. TP SCH ×2 (09:59→18:02)
[2021-08-23] MEDS: lamoTRIgine 100 MG TABLET. PO SCH ×2 (09:59→18:02)
[2021-08-23] MEDS: CARVEDILOL 12.5 MG TABLET PO SCH ×2 (09:59→17:20)
[2021-08-23] MEDS: ASPIRIN CHEWABLE 81 MG TABLET. PO SCH (09:59)
[2021-08-23] MEDS: MULTIVITAMIN with MINERAL TABLET. PO SCH (09:59)
[2021-08-23] MEDS: FUROSEMIDE 40 MG TABLET PO SCH (09:59)
[2021-08-23] MEDS: DULoxetine HCL 30 MG CAPSULE.DR PO SCH (12:20)
[2021-08-23 15:22] VITALS: BP 114/79
[2021-08-23] MEDS: ACETAMINOPHEN 325 MG TABLET PO PRN (17:22)
[2021-08-23] MEDS: ARIPiprazole 5 MG TABLET PO SCH (18:01)
[2021-08-23] MEDS: ATORVASTATIN CALCIUM 20 MG TABLET PO SCH (18:02)
[2021-08-23] MEDS: MIRTAZAPINE 30 MG TABLET PO SCH (18:02)
[2021-08-23] MEDS: traZODone 100 MG TABLET. PO SCH (18:02)
--- NOTE | 2021-08-23 22:04 | PDOC ---
Exam Note: Josef Note: Please also refer to the separate dictated note~for this date of service dictated separately.~Patient seen individually. Discussed the patient with Nursing staff reviewed the chart.~Reviewed interim history and current functioning. Reviewed vital signs,~Labs/ Radiology~and current medications noted below. Continue current treatment with the changes noted in the dictated addendum note Assessment: Vital Signs/I&O: Vital Signs Date Time Temp Pulse Resp B/P (MAP) Pulse Ox O2 Delivery O2 Flow Rate FiO2 08/23/21 17:20 101 114/79 08/23/21 15:22 97.1 19 99 Room Air I & O 08/22/21 08/22/21 08/23/21 15:00 23:00 07:00 Intake Total 480 ml 670 ml Balance 480 ml 670 ml Labs: Laboratory Tests Test 08/23/21 07:47 08/23/21 11:59 08/23/21 17:16 08/23/21 19:14 Glucose (Fingerstick) 154 mg/dL (70-99) H 180 mg/dL (70-99) H 200 mg/dL (70-99) H 180 mg/dL (70-99) H Current Medications: Meds: Laboratory Tests Test 08/23/21 07:47 08/23/21 11:59 08/23/21 17:16 08/23/21 19:14 Glucose (Fingerstick) 154 mg/dL 180 mg/dL 200 mg/dL 180 mg/dL Current Medications Medications (Trade) Dose Ordered Sig/Nicky Route PRN Reason Start Time Stop Time Status Last Admin Dose Admin Acetaminophen (Tylenol) 650 mg PRN Q6HRS PRN PO mild pain/temp >100.3 F 08/05/21 16:30 08/23/21 17:22 Aripiprazole (Abilify) 10 mg DAILY PO 08/06/21 09:00 08/21/21 10:13 DC 08/21/21 08:25 Aspirin (Aspirin Chewable) 81 mg DAILY PO 08/06/21 09:00 08/23/21 09:59 Bupropion HCl (Wellbutrin Xl) 150 mg DAILY PO 08/06/21 09:00 08/23/21 09:58 Clopidogrel Bisulfate (Plavix) 75 mg DAILY PO 08/06/21 09:00 08/23/21 09:59 Docusate Sodium (Colace) 100 mg BID PO 08/05/21 21:00 08/23/21 18:02 Duloxetine HCl (Cymbalta) 30 mg AFTRNOON PO 08/06/21 13:00 08/23/21 12:20 Duloxetine HCl (Cymbalta) 60 mg DAILY PO 08/06/21 09:00 08/23/21 09:58 Furosemide (Lasix) 40 mg DAILY PO 08/06/21 09:00 08/23/21 09:59 Lamotrigine (LaMICtal) 150 mg QHS PO 08/05/21 21:00 08/14/21 10:06 DC 08/13/21 19:55 Linagliptin (Tradjenta) 5 mg DAILY PO 08/06/21 09:00 08/23/21 09:58 Al Hydroxide/Mg Hydroxide (Mylanta Plus Xs) 15 ml PRN AFTMEALHC PRN PO DYSPEPSIA 08/05/21 16:30 Magnesium Citrate (Citroma) 296 ml PRN 1X PRN PO 2nd choice constipation 08/05/21 16:30 08/12/21 07:19 DC 08/11/21 18:33 Mirtazapine (Remeron) 30 mg HS PO 08/05/21 21:00 08/23/21 18:02 Neomycin/ Polymyxin/ Bacitracin (Triple Antibiotic Ointment) 1 pkt BID TP 08/05/21 21:00 08/23/21 18:02 Nystatin (Nystop) 1 neelima BID TP 08/05/21 21:00 08/23/21 18:02 Olanzapine (ZyPREXA ZYDIS) 2.5 mg PRN Q2HRS PRN PO psychosis/agitation 08/05/21 16:30 08/19/21 09:53 Oxycodone/ Acetaminophen (Percocet 10/325) 1 tab PRN Q6HRS PRN PO MODERATE TO SEVERE PAIN 08/05/21 16:30 08/22/21 22:24 Potassium Chloride (Klor-Con) 30 meq DAILY PO 08/06/21 09:00 08/23/21 09:58 Trazodone HCl (Desyrel) 50 mg PRN QHS PRN PO INSOMNIA 08/05/21 16:30 08/14/21 19:55 Trazodone HCl (Desyrel) 100 mg HS PO 08/05/21 21:00 08/23/21 18:02 Trolamine Salicylate (Myoplex) 1 neelima PRN QID PRN TP muscle pain 08/05/21 16:30 UNV Atorvastatin Calcium (Lipitor) 80 mg QHS PO 08/05/21 21:00 08/23/21 18:02 Carvedilol (Coreg) 37.5 mg BIDWMEALS PO 08/05/21 17:00 08/23/21 17:20 Non-Formulary Medication (Insulin Lispro (Humalog)) 0-5 Units, low dose scale. TIDWMEALS SQ 08/05/21 17:00 UNV Multivitamins/ Calcium (Thera-M Plus) 1 tab DAILY PO 08/06/21 09:00 08/23/21 09:59 Multi-Ingredient Ointment (Analgesic [place]) 1 neelima PRN QID PRN TP MUSCLE PAIN 08/05/21 17:00 Insulin Human Lispro (HumaLOG) 0-5 UNITS TIDWMEALS SQ 08/05/21 17:00 08/10/21 13:08 Dextrose (Dextrose 50%-Water Syringe) 12.5 gm PRN Q15MIN PRN IV SEE COMMENTS 08/05/21 17:00 Magnesium Hydroxide (Milk Of Magnesia) 2,400 mg PRN QHS PRN PO 1st choice CONSTIPATION 08/08/21 22:15 08/20/21 20:33 Senna/Docusate Sodium (Senna Plus) 1 tab PRN BID PRN PO 2nd choice CONSTIPATION 08/12/21 15:30 08/22/21 13:50 DC 08/20/21 20:29 Lamotrigine (LaMICtal) 200 mg QHS PO 08/14/21 21:00 08/19/21 17:54 DC 08/18/21 20:25 Lamotrigine (LaMICtal) 150 mg QHS PO 08/19/21 21:00 08/23/21 18:02 Lamotrigine (LaMICtal) 100 mg DAILY PO 08/20/21 09:00 08/23/21 09:59 Aripiprazole (Abilify) 5 mg HS PO 08/22/21 21:00 08/23/21 18:01 Senna/Docusate Sodium (Senna Plus) 1 tab BID PO 08/22/21 21:00 08/23/21 18:01 I have reviewed the current psychotropics carefully including drug interactions. Risk benefit ratio favors no change other than as noted in my dictated progress note. Diagnosis: Problems: (1) Impulse control disorder, unspecified (2) Anxiety disorder, unspecified (3) Major depressive disorder, recurrent (4) Major depressive disorder, severe ESE LEVI MD Aug 23, 2021 22:04
[2021-08-23] MEDS: oxyCODONE/APAP 10/325 1 TAB TABLET PO PRN (23:42)
[2021-08-24 05:59] VITALS: BP 141/91
--- NOTE | 2021-08-24 06:37 | PDOC ---
Exam Note: Josef Note: This note is a late entry for 08/20/2021 covers elements not covered in my initial note. Subjective: The patient was seen individually on 08/20/2021, discussed and reviewed the chart with Kay MODI. The patient slept 6-1/4 hours previous night. He is compliant with medications. Oral intake is poor. He appears somewhat needy, anxious, helpless with a flat affect per nursing report. He did have Wound Care come and visit him in the morning and he was pleased with the visit. I met with him in the evening on rounds. Review of Systems: No CV, , eye, ENT system symptoms on review. Ambulation impaired. Mental Status Exam: The patient is awake, alert, oriented. He is quite verbal, interactive, appreciative of my visits with him, states he feels little helpless that placement has not been found for him. He is tolerating the increased psychotropics. Speech is coherent. Abstraction fair. Computation impaired. Language function intact. Mood and affect remains somewhat labile, anxious. Laboratory Data: Reviewed. Impression: Major depressive disorder, recurrent, rule out psychotic features. Anxiety disorder unspecified. Plan: No change from initial note. Assessment: Vital Signs/I&O: Vital Signs Date Time Temp Pulse Resp B/P (MAP) Pulse Ox O2 Delivery O2 Flow Rate FiO2 08/24/21 05:59 96.6 103 24 141/91 (108) 94 08/23/21 15:22 Room Air I & O0 08/23/21 08/23/21 08/24/21 14:59 22:59 06:59 Intake Total 720 ml 600 ml Balance 720 ml 600 ml Labs: Laboratory Tests Test 08/23/21 07:47 08/23/21 11:59 08/23/21 17:16 08/23/21 19:14 Glucose (Fingerstick) 154 mg/dL (70-99) H 180 mg/dL (70-99) H 200 mg/dL (70-99) H 180 mg/dL (70-99) H Current Medications: I have reviewed the current psychotropics carefully including drug interactions. Risk benefit ratio favors no change other than as noted in my dictated progress note. Diagnosis: Problems: (1) Anxiety disorder, unspecified (2) Major depressive disorder, recurrent (3) Impulse control disorder, unspecified (4) Major depressive disorder, severe AMITA,MAN M MD Aug 24, 2021 06:37
--- NOTE | 2021-08-24 06:51 | PDOC ---
Exam Note: Josef Note: This note is a late entry for 08/23/2021 covers elements not covered in my initial note. Subjective: The patient was seen individually on 08/23/2021, discussed and reviewed the chart with Susi MODI. The patient slept 3 hours previous night. Review of Systems: No CV, , eye, ENT system symptoms on review. Ambulation in wheelchair. Mental Status Exam: The patient is alert, oriented. Speech is coherent. Abstraction fair. Computation impaired. Language function intact. Mood and affect withdrawn. Laboratory Data: Reviewed. Impression: Major depressive disorder, recurrent, rule out psychotic features. Anxiety disorder unspecified. Plan: No change in current psychotropics. Assessment: Vital Signs/I&O: Vital Signs Date Time Temp Pulse Resp B/P (MAP) Pulse Ox O2 Delivery O2 Flow Rate FiO2 08/24/21 05:59 96.6 103 24 141/91 (108) 94 08/23/21 15:22 Room Air I & O 08/23/21 08/23/21 08/24/21 15:00 23:00 07:00 Intake Total 720 ml 600 ml Balance 720 ml 600 ml Labs: Laboratory Tests Test 08/23/21 07:47 08/23/21 11:59 08/23/21 17:16 08/23/21 19:14 Glucose (Fingerstick) 154 mg/dL (70-99) H 180 mg/dL (70-99) H 200 mg/dL (70-99) H 180 mg/dL (70-99) H Current Medications: I have reviewed the current psychotropics carefully including drug interactions. Risk benefit ratio favors no change other than as noted in my dictated progress note. Diagnosis: Problems: (1) Impulse control disorder, unspecified (2) Anxiety disorder, unspecified (3) Major depressive disorder, severe ESE LEVI MD Aug 24, 2021 06:51
[2021-08-24] MEDS: INSULIN LISPRO 300 UNITS/3 ML VIAL. SQ SCH ×3 (08:00→17:00)
[2021-08-24] MEDS: lamoTRIgine 100 MG TABLET. PO SCH ×2 (08:52→19:46)
[2021-08-24] MEDS: ASPIRIN CHEWABLE 81 MG TABLET. PO SCH (08:52)
[2021-08-24] MEDS: DULoxetine HCL 60 MG CAPSULE.DR PO SCH (08:53)
[2021-08-24] MEDS: CARVEDILOL 12.5 MG TABLET PO SCH ×2 (08:53→18:27)
[2021-08-24] MEDS: POTASSIUM CHLORIDE 10 MEQ TABLET.ER. PO SCH (08:53)
[2021-08-24] MEDS: DOCUSATE SODIUM 100 MG CAPSULE PO SCH ×2 (08:53→19:47)
[2021-08-24] MEDS: NEOMY/BACITR/POLYMYXIN OINT PACKET. TP SCH ×2 (08:54→19:46)
[2021-08-24] MEDS: CLOPIDOGREL BISULFATE 75 MG TABLET PO SCH (08:54)
[2021-08-24] MEDS: LINAGLIPTIN 5 MG TABLET PO SCH (08:54)
[2021-08-24] MEDS: MULTIVITAMIN with MINERAL TABLET. PO SCH (08:54)
[2021-08-24] MEDS: buPROPion XL 150 MG TAB.ER.24H PO SCH (08:54)
[2021-08-24] MEDS: FUROSEMIDE 40 MG TABLET PO SCH (08:54)
[2021-08-24] MEDS: SENNOSIDES/DOCUSATE 8.6/50MG TABLET. PO SCH ×2 (08:54→19:48)
[2021-08-24] MEDS: NYSTATIN TOPICAL POWDER 15GM BOTTLE. TP SCH ×2 (08:55→19:46)
[2021-08-24] MEDS: DULoxetine HCL 30 MG CAPSULE.DR PO SCH (11:59)
[2021-08-24 15:44] VITALS: BP 121/78
[2021-08-24] MEDS: ACETAMINOPHEN 325 MG TABLET PO PRN (18:26)
[2021-08-24] MEDS: ARIPiprazole 5 MG TABLET PO SCH (19:46)
[2021-08-24] MEDS: MIRTAZAPINE 30 MG TABLET PO SCH (19:47)
[2021-08-24] MEDS: traZODone 100 MG TABLET. PO SCH (19:48)
[2021-08-24] MEDS: oxyCODONE/APAP 10/325 1 TAB TABLET PO PRN (19:48)
[2021-08-24] MEDS: ATORVASTATIN CALCIUM 20 MG TABLET PO SCH (19:48)
--- NOTE | 2021-08-24 21:39 | PDOC ---
Exam Note: Josef Note: Please also refer to the separate dictated note~for this date of service dictated separately.~Patient seen individually. Discussed the patient with Nursing staff reviewed the chart.~Reviewed interim history and current functioning. Reviewed vital signs,~Labs/ Radiology~and current medications noted below. Continue current treatment with the changes noted in the dictated addendum note Assessment: Vital Signs/I&O: Vital Signs Date Time Temp Pulse Resp B/P (MAP) Pulse Ox O2 Delivery O2 Flow Rate FiO2 08/24/21 18:27 99 121/78 08/24/21 15:44 97.0 22 99 08/23/21 15:22 Room Air I & O 08/23/21 08/23/21 08/24/21 15:00 23:00 07:00 Intake Total 720 ml 600 ml Balance 720 ml 600 ml Labs: Laboratory Tests Test 08/24/21 07:46 08/24/21 11:27 08/24/21 17:10 08/24/21 19:10 Glucose (Fingerstick) 148 mg/dL (70-99) H 141 mg/dL (70-99) H 150 mg/dL (70-99) H 143 mg/dL (70-99) H Current Medications: Meds: Laboratory Tests Test 08/24/21 07:46 08/24/21 11:27 08/24/21 17:10 08/24/21 19:10 Glucose (Fingerstick) 148 mg/dL 141 mg/dL 150 mg/dL 143 mg/dL Current Medications Medications (Trade) Dose Ordered Sig/Nicky Route PRN Reason Start Time Stop Time Status Last Admin Dose Admin Acetaminophen (Tylenol) 650 mg PRN Q6HRS PRN PO mild pain/temp >100.3 F 08/05/21 16:30 08/24/21 18:26 Aripiprazole (Abilify) 10 mg DAILY PO 08/06/21 09:00 08/21/21 10:13 DC 08/21/21 08:25 Aspirin (Aspirin Chewable) 81 mg DAILY PO 08/06/21 09:00 08/24/21 08:52 Bupropion HCl (Wellbutrin Xl) 150 mg DAILY PO 08/06/21 09:00 08/24/21 08:54 Clopidogrel Bisulfate (Plavix) 75 mg DAILY PO 08/06/21 09:00 08/24/21 08:54 Docusate Sodium (Colace) 100 mg BID PO 08/05/21 21:00 08/24/21 19:47 Duloxetine HCl (Cymbalta) 30 mg AFTRNOON PO 08/06/21 13:00 08/24/21 11:59 Duloxetine HCl (Cymbalta) 60 mg DAILY PO 08/06/21 09:00 08/24/21 08:53 Furosemide (Lasix) 40 mg DAILY PO 08/06/21 09:00 08/24/21 08:54 Lamotrigine (LaMICtal) 150 mg QHS PO 08/05/21 21:00 08/14/21 10:06 DC 08/13/21 19:55 Linagliptin (Tradjenta) 5 mg DAILY PO 08/06/21 09:00 08/24/21 08:54 Al Hydroxide/Mg Hydroxide (Mylanta Plus Xs) 15 ml PRN AFTMEALHC PRN PO DYSPEPSIA 08/05/21 16:30 Magnesium Citrate (Citroma) 296 ml PRN 1X PRN PO 2nd choice constipation 08/05/21 16:30 08/12/21 07:19 DC 08/11/21 18:33 Mirtazapine (Remeron) 30 mg HS PO 08/05/21 21:00 08/24/21 19:47 Neomycin/ Polymyxin/ Bacitracin (Triple Antibiotic Ointment) 1 pkt BID TP 08/05/21 21:00 08/24/21 19:46 Nystatin (Nystop) 1 neelima BID TP 08/05/21 21:00 08/24/21 19:46 Olanzapine (ZyPREXA ZYDIS) 2.5 mg PRN Q2HRS PRN PO psychosis/agitation 08/05/21 16:30 08/19/21 09:53 Oxycodone/ Acetaminophen (Percocet 10/325) 1 tab PRN Q6HRS PRN PO MODERATE TO SEVERE PAIN 08/05/21 16:30 08/23/21 23:42 Potassium Chloride (Klor-Con) 30 meq DAILY PO 08/06/21 09:00 08/24/21 08:53 Trazodone HCl (Desyrel) 50 mg PRN QHS PRN PO INSOMNIA 08/05/21 16:30 08/14/21 19:55 Trazodone HCl (Desyrel) 100 mg HS PO 08/05/21 21:00 08/24/21 19:48 Trolamine Salicylate (Myoplex) 1 neelima PRN QID PRN TP muscle pain 08/05/21 16:30 UNV Atorvastatin Calcium (Lipitor) 80 mg QHS PO 08/05/21 21:00 08/24/21 19:48 Carvedilol (Coreg) 37.5 mg BIDWMEALS PO 08/05/21 17:00 08/24/21 18:27 Non-Formulary Medication (Insulin Lispro (Humalog)) 0-5 Units, low dose scale. TIDWMEALS SQ 08/05/21 17:00 UNV Multivitamins/ Calcium (Thera-M Plus) 1 tab DAILY PO 08/06/21 09:00 08/24/21 08:54 Multi-Ingredient Ointment (Analgesic [place]) 1 neelima PRN QID PRN TP MUSCLE PAIN 08/05/21 17:00 Insulin Human Lispro (HumaLOG) 0-5 UNITS TIDWMEALS SQ 08/05/21 17:00 08/10/21 13:08 Dextrose (Dextrose 50%-Water Syringe) 12.5 gm PRN Q15MIN PRN IV SEE COMMENTS 08/05/21 17:00 Magnesium Hydroxide (Milk Of Magnesia) 2,400 mg PRN QHS PRN PO 1st choice CONSTIPATION 08/08/21 22:15 08/20/21 20:33 Senna/Docusate Sodium (Senna Plus) 1 tab PRN BID PRN PO 2nd choice CONSTIPATION 08/12/21 15:30 08/22/21 13:50 DC 08/20/21 20:29 Lamotrigine (LaMICtal) 200 mg QHS PO 08/14/21 21:00 08/19/21 17:54 DC 08/18/21 20:25 Lamotrigine (LaMICtal) 150 mg QHS PO 08/19/21 21:00 08/24/21 19:46 Lamotrigine (LaMICtal) 100 mg DAILY PO 08/20/21 09:00 08/24/21 08:52 Aripiprazole (Abilify) 5 mg HS PO 08/22/21 21:00 08/24/21 19:46 Senna/Docusate Sodium (Senna Plus) 1 tab BID PO 08/22/21 21:00 08/24/21 19:48 I have reviewed the current psychotropics carefully including drug interactions. Risk benefit ratio favors no change other than as noted in my dictated progress note. Diagnosis: Problems: (1) Impulse control disorder, unspecified (2) Anxiety disorder, unspecified (3) Major depressive disorder, recurrent (4) Major depressive disorder, severe ESE LEVI MD Aug 24, 2021 21:39
[2021-08-25 06:11] VITALS: BP 128/94
--- NOTE | 2021-08-25 07:07 | PDOC ---
Exam Note: Josef Note: This note is a late entry for 08/24/2021 covers elements not covered in my initial note. Subjective: The patient was seen individually on 08/24/2021, discussed and reviewed the chart with Manuel MODI. He is doing about the same. I met with him in the hallway, where he was watching the other [employer] competition and seemed quite involved with this. He states he has not been doing very well. It was non- specific about what exactly he meant by that and seemed more interested in the game. He did remark Chrissy been better. Review of Systems: No CV, , eye, ENT system symptoms on review. Ambulation in wheelchair. Mental Status Exam: The patient is alert, oriented. Speech is coherent. Abs traction fair. Computation impaired. Language function intact. Mood and affect withdrawn. No suicidal or homicidal ideation. Laboratory Data: Reviewed. Impression: Major depressive disorder, recurrent, rule out psychotic features. Anxiety disorder unspecified. Plan: No change in current psychotropics. Assessment: Vital Signs/I&O: Vital Signs Date Time Temp Pulse Resp B/P (MAP) Pulse Ox O2 Delivery O2 Flow Rate FiO2 08/25/21 06:11 97.1 96 24 128/94 (105) 89 Room Air I & O 08/24/21 08/24/21 08/25/21 14:59 22:59 06:59 Intake Total 440 ml 240 ml Balance 440 ml 240 ml Labs: Laboratory Tests Test 08/24/21 07:46 08/24/21 11:27 08/24/21 17:10 08/24/21 19:10 Glucose (Fingerstick) 148 mg/dL (70-99) H 141 mg/dL (70-99) H 150 mg/dL (70-99) H 143 mg/dL (70-99) H Current Medications: I have reviewed the current psychotropics carefully including drug interactions. Risk benefit ratio favors no change other than as noted in my dictated progress note. Diagnosis: Problems: (1) Impulse control disorder, unspecified (2) Anxiety disorder, unspecified (3) Major depressive disorder, recurrent (4) Major depressive disorder, severe ESE LEVI MD Aug 25, 2021 07:07
[2021-08-25] MEDS: INSULIN LISPRO 300 UNITS/3 ML VIAL. SQ SCH ×3 (08:00→17:00)
[2021-08-25] MEDS: NYSTATIN TOPICAL POWDER 15GM BOTTLE. TP SCH ×2 (09:00→19:53)
[2021-08-25] MEDS: CLOPIDOGREL BISULFATE 75 MG TABLET PO SCH (09:01)
[2021-08-25] MEDS: SENNOSIDES/DOCUSATE 8.6/50MG TABLET. PO SCH ×2 (09:01→19:51)
[2021-08-25] MEDS: LINAGLIPTIN 5 MG TABLET PO SCH (09:01)
[2021-08-25] MEDS: CARVEDILOL 12.5 MG TABLET PO SCH ×2 (09:01→17:00)
[2021-08-25] MEDS: lamoTRIgine 100 MG TABLET. PO SCH ×2 (09:01→19:51)
[2021-08-25] MEDS: DOCUSATE SODIUM 100 MG CAPSULE PO SCH ×2 (09:01→19:51)
[2021-08-25] MEDS: POTASSIUM CHLORIDE 10 MEQ TABLET.ER. PO SCH (09:01)
[2021-08-25] MEDS: NEOMY/BACITR/POLYMYXIN OINT PACKET. TP SCH ×2 (09:02→19:53)
[2021-08-25] MEDS: DULoxetine HCL 60 MG CAPSULE.DR PO SCH (09:02)
[2021-08-25] MEDS: ASPIRIN CHEWABLE 81 MG TABLET. PO SCH (09:02)
[2021-08-25] MEDS: FUROSEMIDE 40 MG TABLET PO SCH (09:02)
[2021-08-25] MEDS: MULTIVITAMIN with MINERAL TABLET. PO SCH (09:02)
[2021-08-25] MEDS: buPROPion XL 150 MG TAB.ER.24H PO SCH (09:02)
[2021-08-25] MEDS: DULoxetine HCL 30 MG CAPSULE.DR PO SCH (12:23)
[2021-08-25 15:27] VITALS: BP 124/75
[2021-08-25] MEDS: traZODone 100 MG TABLET. PO SCH (19:50)
[2021-08-25] MEDS: ARIPiprazole 5 MG TABLET PO SCH (19:50)
[2021-08-25] MEDS: MIRTAZAPINE 30 MG TABLET PO SCH (19:51)
[2021-08-25] MEDS: ATORVASTATIN CALCIUM 20 MG TABLET PO SCH (19:52)
--- NOTE | 2021-08-25 21:46 | PDOC ---
Exam Note: Josef Note: Please also refer to the separate dictated note~for this date of service dictated separately.~Patient seen individually. Discussed the patient with Nursing staff reviewed the chart.~Reviewed interim history and current functioning. Reviewed vital signs,~Labs/ Radiology~and current medications noted below. Continue current treatment with the changes noted in the dictated addendum note Assessment: Vital Signs/I&O: Vital Signs Date Time Temp Pulse Resp B/P (MAP) Pulse Ox O2 Delivery O2 Flow Rate FiO2 08/25/21 17:00 103 124/75 08/25/21 15:27 97.4 20 99 08/25/21 06:11 Room Air I & O 08/24/21 08/24/21 08/25/21 14:59 22:59 06:59 Intake Total 440 ml 240 ml Balance 440 ml 240 ml Labs: Laboratory Tests Test 08/25/21 07:49 08/25/21 12:07 08/25/21 16:53 08/25/21 19:06 Glucose (Fingerstick) 141 mg/dL (70-99) H 154 mg/dL (70-99) H 137 mg/dL (70-99) H 143 mg/dL (70-99) H Current Medications: Meds: Laboratory Tests Test 08/25/21 07:49 08/25/21 12:07 08/25/21 16:53 08/25/21 19:06 Glucose (Fingerstick) 141 mg/dL 154 mg/dL 137 mg/dL 143 mg/dL Current Medications Medications (Trade) Dose Ordered Sig/Nicky Route PRN Reason Start Time Stop Time Status Last Admin Dose Admin Acetaminophen (Tylenol) 650 mg PRN Q6HRS PRN PO mild pain/temp >100.3 F 08/05/21 16:30 08/24/21 18:26 Aripiprazole (Abilify) 10 mg DAILY PO 08/06/21 09:00 08/21/21 10:13 DC 08/21/21 08:25 Aspirin (Aspirin Chewable) 81 mg DAILY PO 08/06/21 09:00 08/25/21 09:02 Bupropion HCl (Wellbutrin Xl) 150 mg DAILY PO 08/06/21 09:00 08/25/21 09:02 Clopidogrel Bisulfate (Plavix) 75 mg DAILY PO 08/06/21 09:00 08/25/21 09:01 Docusate Sodium (Colace) 100 mg BID PO 08/05/21 21:00 08/25/21 19:51 Duloxetine HCl (Cymbalta) 30 mg AFTRNOON PO 08/06/21 13:00 08/25/21 12:23 Duloxetine HCl (Cymbalta) 60 mg DAILY PO 08/06/21 09:00 08/25/21 09:02 Furosemide (Lasix) 40 mg DAILY PO 08/06/21 09:00 08/25/21 09:02 Lamotrigine (LaMICtal) 150 mg QHS PO 08/05/21 21:00 08/14/21 10:06 DC 08/13/21 19:55 Linagliptin (Tradjenta) 5 mg DAILY PO 08/06/21 09:00 08/25/21 09:01 Al Hydroxide/Mg Hydroxide (Mylanta Plus Xs) 15 ml PRN AFTMEALHC PRN PO DYSPEPSIA 08/05/21 16:30 Magnesium Citrate (Citroma) 296 ml PRN 1X PRN PO 2nd choice constipation 08/05/21 16:30 08/12/21 07:19 DC 08/11/21 18:33 Mirtazapine (Remeron) 30 mg HS PO 08/05/21 21:00 08/25/21 19:51 Neomycin/ Polymyxin/ Bacitracin (Triple Antibiotic Ointment) 1 pkt BID TP 08/05/21 21:00 08/25/21 19:53 Nystatin (Nystop) 1 neelima BID TP 08/05/21 21:00 08/25/21 19:53 Olanzapine (ZyPREXA ZYDIS) 2.5 mg PRN Q2HRS PRN PO psychosis/agitation 08/05/21 16:30 08/19/21 09:53 Oxycodone/ Acetaminophen (Percocet 10/325) 1 tab PRN Q6HRS PRN PO MODERATE TO SEVERE PAIN 08/05/21 16:30 08/24/21 19:48 Potassium Chloride (Klor-Con) 30 meq DAILY PO 08/06/21 09:00 08/25/21 09:01 Trazodone HCl (Desyrel) 50 mg PRN QHS PRN PO INSOMNIA 08/05/21 16:30 08/14/21 19:55 Trazodone HCl (Desyrel) 100 mg HS PO 08/05/21 21:00 08/25/21 19:50 Trolamine Salicylate (Myoplex) 1 neelima PRN QID PRN TP muscle pain 08/05/21 16:30 UNV Atorvastatin Calcium (Lipitor) 80 mg QHS PO 08/05/21 21:00 08/25/21 19:52 Carvedilol (Coreg) 37.5 mg BIDWMEALS PO 08/05/21 17:00 08/25/21 17:00 Non-Formulary Medication (Insulin Lispro (Humalog)) 0-5 Units, low dose scale. TIDWMEALS SQ 08/05/21 17:00 UNV Multivitamins/ Calcium (Thera-M Plus) 1 tab DAILY PO 08/06/21 09:00 08/25/21 09:02 Multi-Ingredient Ointment (Analgesic [place]) 1 neelima PRN QID PRN TP MUSCLE PAIN 08/05/21 17:00 Insulin Human Lispro (HumaLOG) 0-5 UNITS TIDWMEALS SQ 08/05/21 17:00 08/10/21 13:08 Dextrose (Dextrose 50%-Water Syringe) 12.5 gm PRN Q15MIN PRN IV SEE COMMENTS 08/05/21 17:00 Magnesium Hydroxide (Milk Of Magnesia) 2,400 mg PRN QHS PRN PO 1st choice CONSTIPATION 08/08/21 22:15 08/20/21 20:33 Senna/Docusate Sodium (Senna Plus) 1 tab PRN BID PRN PO 2nd choice CONSTIPATION 08/12/21 15:30 08/22/21 13:50 DC 08/20/21 20:29 Lamotrigine (LaMICtal) 200 mg QHS PO 08/14/21 21:00 08/19/21 17:54 DC 08/18/21 20:25 Lamotrigine (LaMICtal) 150 mg QHS PO 08/19/21 21:00 08/25/21 19:51 Lamotrigine (LaMICtal) 100 mg DAILY PO 08/20/21 09:00 08/28/21 09:00 08/25/21 09:01 Aripiprazole (Abilify) 5 mg HS PO 08/22/21 21:00 2/14/22 19:50 Senna/Docusate Sodium (Senna Plus) 1 tab BID PO 08/22/21 21:00 08/25/21 19:51 Lamotrigine (LaMICtal) 150 mg DAILY PO 08/29/21 09:00 I have reviewed the current psychotropics carefully including drug interactions. Risk benefit ratio favors no change other than as noted in my dictated progress note. Diagnosis: Problems: (1) Impulse control disorder, unspecified (2) Anxiety disorder, unspecified (3) Major depressive disorder, severe ESE LEVI MD Aug 25, 2021 21:46
[2021-08-26 05:56] VITALS: BP 126/83
[2021-08-26 06:04] LABS: BASO % 0 % (0-3); EOS # 0.1 x10^3/uL (0.0-0.7); EOS % 2 % (0-3); HEMATOCRIT 35.5 % (39.0-53.0); HEMOGLOBIN 11.4 g/dL (13.0-17.5); LYMPH # 0.8 x10^3/uL (1.0-4.8); LYMPH % 9 % (24-48); MEAN CORPUSCULAR HEMOGLOBIN 31 pg (25-35); MEAN CORPUSCULAR HGB CONC 32 g/dL (31-37); MEAN CORPUSCULAR VOLUME 96 fL (79-100); MONO # 0.8 x10^3/uL (0.0-1.1); MONO % 9 % (0-9); NEUT # 7.1 x10^3uL (1.8-7.7); NEUT % 80 % (31-73); PLATELET COUNT 269 x10^3/uL (140-400); RED BLOOD COUNT 3.69 x10^6/uL (4.30-5.70); RED CELL DISTRIBUTION WIDTH 16.7 % (11.5-14.5); WHITE BLOOD COUNT 8.9 x10^3/uL (4.0-11.0)
[2021-08-26 06:14] LABS: ALBUMIN 2.6 g/dL (3.4-5.0); ALBUMIN/GLOBULIN RATIO 0.7 (1.0-1.7); CALCIUM 8.3 mg/dL (8.5-10.1); CREATININE 1.1 mg/dL (0.7-1.3); GFR 66.8; POTASSIUM 3.8 mmol/L (3.5-5.1); TOTAL BILIRUBIN 0.5 mg/dL (0.2-1.0); TOTAL PROTEIN 6.5 g/dL (6.4-8.2)
[2021-08-26] MEDS: INSULIN LISPRO 300 UNITS/3 ML VIAL. SQ SCH ×3 (08:00→17:00)
[2021-08-26] MEDS: POTASSIUM CHLORIDE 10 MEQ TABLET.ER. PO SCH (09:22)
[2021-08-26] MEDS: SENNOSIDES/DOCUSATE 8.6/50MG TABLET. PO SCH ×2 (09:22→20:18)
[2021-08-26] MEDS: DULoxetine HCL 60 MG CAPSULE.DR PO SCH (09:22)
[2021-08-26] MEDS: ASPIRIN CHEWABLE 81 MG TABLET. PO SCH (09:23)
[2021-08-26] MEDS: DOCUSATE SODIUM 100 MG CAPSULE PO SCH ×2 (09:23→20:18)
[2021-08-26] MEDS: LINAGLIPTIN 5 MG TABLET PO SCH (09:23)
[2021-08-26] MEDS: MULTIVITAMIN with MINERAL TABLET. PO SCH (09:23)
[2021-08-26] MEDS: CLOPIDOGREL BISULFATE 75 MG TABLET PO SCH (09:23)
[2021-08-26] MEDS: FUROSEMIDE 40 MG TABLET PO SCH (09:23)
[2021-08-26] MEDS: buPROPion XL 150 MG TAB.ER.24H PO SCH (09:23)
[2021-08-26] MEDS: lamoTRIgine 100 MG TABLET. PO SCH ×2 (09:23→20:19)
[2021-08-26] MEDS: CARVEDILOL 12.5 MG TABLET PO SCH ×2 (09:24→17:52)
[2021-08-26] MEDS: NEOMY/BACITR/POLYMYXIN OINT PACKET. TP SCH ×2 (09:24→20:18)
[2021-08-26] MEDS: NYSTATIN TOPICAL POWDER 15GM BOTTLE. TP SCH ×2 (09:24→20:24)
[2021-08-26] MEDS: DULoxetine HCL 30 MG CAPSULE.DR PO SCH (12:36)
[2021-08-26 15:28] VITALS: BP 96/60
[2021-08-26] MEDS: ATORVASTATIN CALCIUM 20 MG TABLET PO SCH (20:18)
[2021-08-26] MEDS: MIRTAZAPINE 30 MG TABLET PO SCH (20:18)
[2021-08-26] MEDS: ARIPiprazole 5 MG TABLET PO SCH (20:19)
[2021-08-26] MEDS: traZODone 100 MG TABLET. PO SCH (20:19)
--- NOTE | 2021-08-26 21:26 | PDOC ---
Exam Note: Josef Note: Please also refer to the separate dictated note~for this date of service dictated separately.~Patient seen individually. Discussed the patient with Nursing staff reviewed the chart.~Reviewed interim history and current functioning. Reviewed vital signs,~Labs/ Radiology~and current medications noted below. Continue current treatment with the changes noted in the dictated addendum note Assessment: Vital Signs/I&O: Vital Signs Date Time Temp Pulse Resp B/P (MAP) Pulse Ox O2 Delivery O2 Flow Rate FiO2 08/26/21 17:52 101 96/60 08/26/21 15:28 97.4 18 95 08/26/21 05:56 Room Air I & O 08/25/21 08/25/21 08/26/21 15:00 23:00 07:00 Intake Total 480 ml 480 ml Balance 480 ml 480 ml Labs: Laboratory Tests Test 08/26/21 05:48 08/26/21 07:33 08/26/21 17:44 08/26/21 19:02 White Blood Count 8.9 x10^3/uL (4.0-11.0) Red Blood Count 3.69 x10^6/uL (4.30-5.70) L Hemoglobin 11.4 g/dL (13.0-17.5) L Hematocrit 35.5 % (39.0-53.0) L Mean Corpuscular Volume 96 fL (79-100) Mean Corpuscular Hemoglobin 31 pg (25-35) Mean Corpuscular Hemoglobin Concent 32 g/dL (31-37) Red Cell Distribution Width 16.7 % (11.5-14.5) H Platelet Count 269 x10^3/uL (140-400) Neutrophils (%) (Auto) 80 % (31-73) H Lymphocytes (%) (Auto) 9 % (24-48) L Monocytes (%) (Auto) 9 % (0-9) Eosinophils (%) (Auto) 2 % (0-3) Basophils (%) (Auto) 0 % (0-3) Neutrophils # (Auto) 7.1 x10^3uL (1.8-7.7) Lymphocytes # (Auto) 0.8 x10^3/uL (1.0-4.8) L Monocytes # (Auto) 0.8 x10^3/uL (0.0-1.1) Eosinophils # (Auto) 0.1 x10^3/uL (0.0-0.7) Basophils # (Auto) 0.0 x10^3/uL (0.0-0.2) Sodium Level 139 mmol/L (136-145) Potassium Level 3.8 mmol/L (3.5-5.1) Chloride Level 104 mmol/L (98-107) Carbon Dioxide Level 26 mmol/L (21-32) Anion Gap 9 (6-14) Blood Urea Nitrogen 19 mg/dL (8-26) Creatinine 1.1 mg/dL (0.7-1.3) Estimated GFR (Cockcroft-Gault) 66.8 BUN/Creatinine Ratio 17 (6-20) Glucose Level 150 mg/dL (70-99) H Calcium Level 8.3 mg/dL (8.5-10.1) L Total Bilirubin 0.5 mg/dL (0.2-1.0) Aspartate Amino Transferase (AST) 17 U/L (15-37) Alanine Aminotransferase (ALT) 23 U/L (16-63) Alkaline Phosphatase 97 U/L (46-116) Total Protein 6.5 g/dL (6.4-8.2) Albumin 2.6 g/dL (3.4-5.0) L Albumin/Globulin Ratio 0.7 (1.0-1.7) L Glucose (Fingerstick) 138 mg/dL (70-99) H 179 mg/dL (70-99) H 180 mg/dL (70-99) H Current Medications: Meds: Laboratory Tests Test 08/26/21 05:48 08/26/21 07:33 08/26/21 17:44 08/26/21 19:02 White Blood Count 8.9 x10^3/uL Red Blood Count 3.69 x10^6/uL Hemoglobin 11.4 g/dL Hematocrit 35.5 % Mean Corpuscular Volume 96 fL Mean Corpuscular Hemoglobin 31 pg Mean Corpuscular Hemoglobin Concent 32 g/dL Red Cell Distribution Width 16.7 % Platelet Count 269 x10^3/uL Neutrophils (%) (Auto) 80 % Lymphocytes (%) (Auto) 9 % Monocytes (%) (Auto) 9 % Eosinophils (%) (Auto) 2 % Basophils (%) (Auto) 0 % Neutrophils # (Auto) 7.1 x10^3uL Lymphocytes # (Auto) 0.8 x10^3/uL Monocytes # (Auto) 0.8 x10^3/uL Eosinophils # (Auto) 0.1 x10^3/uL Basophils # (Auto) 0.0 x10^3/uL Sodium Level 139 mmol/L Potassium Level 3.8 mmol/L Chloride Level 104 mmol/L Carbon Dioxide Level 26 mmol/L Anion Gap 9 Blood Urea Nitrogen 19 mg/dL Creatinine 1.1 mg/dL Estimated GFR (Cockcroft-Gault) 66.8 BUN/Creatinine Ratio 17 Glucose Level 150 mg/dL Calcium Level 8.3 mg/dL Total Bilirubin 0.5 mg/dL Aspartate Amino Transf (AST/SGOT) 17 U/L Alanine Aminotransferase (ALT/SGPT) 23 U/L Alkaline Phosphatase 97 U/L Total Protein 6.5 g/dL Albumin 2.6 g/dL Albumin/Globulin Ratio 0.7 Glucose (Fingerstick) 138 mg/dL 179 mg/dL 180 mg/dL Current Medications Medications (Trade) Dose Ordered Sig/Nicky Route PRN Reason Start Time Stop Time Status Last Admin Dose Admin Acetaminophen (Tylenol) 650 mg PRN Q6HRS PRN PO mild pain/temp >100.3 F 08/05/21 16:30 08/24/21 18:26 Aripiprazole (Abilify) 10 mg DAILY PO 08/06/21 09:00 08/21/21 10:13 DC 08/21/21 08:25 Aspirin (Aspirin Chewable) 81 mg DAILY PO 08/06/21 09:00 08/26/21 09:23 Bupropion HCl (Wellbutrin Xl) 150 mg DAILY PO 08/06/21 09:00 08/26/21 09:23 Clopidogrel Bisulfate (Plavix) 75 mg DAILY PO 08/06/21 09:00 08/26/21 09:23 Docusate Sodium (Colace) 100 mg BID PO 08/05/21 21:00 08/26/21 20:18 Duloxetine HCl (Cymbalta) 30 mg AFTRNOON PO 08/06/21 13:00 08/26/21 12:36 Duloxetine HCl (Cymbalta) 60 mg DAILY PO 08/06/21 09:00 08/26/21 09:22 Furosemide (Lasix) 40 mg DAILY PO 08/06/21 09:00 08/26/21 09:23 Lamotrigine (LaMICtal) 150 mg QHS PO 08/05/21 21:00 08/14/21 10:06 DC 08/13/21 19:55 Linagliptin (Tradjenta) 5 mg DAILY PO 08/06/21 09:00 08/26/21 09:23 Al Hydroxide/Mg Hydroxide (Mylanta Plus Xs) 15 ml PRN AFTMEALHC PRN PO DYSPEPSIA 08/05/21 16:30 08/26/21 12:36 Magnesium Citrate (Citroma) 296 ml PRN 1X PRN PO 2nd choice constipation 08/05/21 16:30 08/12/21 07:19 DC 08/11/21 18:33 Mirtazapine (Remeron) 30 mg HS PO 08/05/21 21:00 08/26/21 20:18 Neomycin/ Polymyxin/ Bacitracin (Triple Antibiotic Ointment) 1 pkt BID TP 08/05/21 21:00 08/26/21 20:18 Nystatin (Nystop) 1 neelima BID TP 08/05/21 21:00 08/26/21 20:24 Olanzapine (ZyPREXA ZYDIS) 2.5 mg PRN Q2HRS PRN PO psychosis/agitation 08/05/21 16:30 08/19/21 09:53 Oxycodone/ Acetaminophen (Percocet 10/325) 1 tab PRN Q6HRS PRN PO MODERATE TO SEVERE PAIN 08/05/21 16:30 08/24/21 19:48 Potassium Chloride (Klor-Con) 30 meq DAILY PO 08/06/21 09:00 08/26/21 09:22 Trazodone HCl (Desyrel) 50 mg PRN QHS PRN PO INSOMNIA 08/05/21 16:30 08/14/21 19:55 Trazodone HCl (Desyrel) 100 mg HS PO 08/05/21 21:00 08/26/21 20:19 Trolamine Salicylate (Myoplex) 1 neelima PRN QID PRN TP muscle pain 08/05/21 16:30 UNV Atorvastatin Calcium (Lipitor) 80 mg QHS PO 08/05/21 21:00 08/26/21 20:18 Carvedilol (Coreg) 37.5 mg BIDWMEALS PO 08/05/21 17:00 08/26/21 17:52 Non-Formulary Medication (Insulin Lispro (Humalog)) 0-5 Units, low dose scale. TIDWMEALS SQ 08/05/21 17:00 UNV Multivitamins/ Calcium (Thera-M Plus) 1 tab DAILY PO 08/06/21 09:00 08/26/21 09:23 Multi-Ingredient Ointment (Analgesic [place]) 1 neelima PRN QID PRN TP MUSCLE PAIN 08/05/21 17:00 Insulin Human Lispro (HumaLOG) 0-5 UNITS TIDWMEALS SQ 08/05/21 17:00 08/10/21 13:08 Dextrose (Dextrose 50%-Water Syringe) 12.5 gm PRN Q15MIN PRN IV SEE COMMENTS 08/05/21 17:00 Magnesium Hydroxide (Milk Of Magnesia) 2,400 mg PRN QHS PRN PO 1st choice CONSTIPATION 08/08/21 22:15 08/20/21 20:33 Senna/Docusate Sodium (Senna Plus) 1 tab PRN BID PRN PO 2nd choice CONSTIPATION 08/12/21 15:30 08/22/21 13:50 DC 08/20/21 20:29 Lamotrigine (LaMICtal) 200 mg QHS PO 08/14/21 21:00 08/19/21 17:54 DC 08/18/21 20:25 Lamotrigine (LaMICtal) 150 mg QHS PO 08/19/21 21:00 08/26/21 20:19 Lamotrigine (LaMICtal) 100 mg DAILY PO 08/20/21 09:00 08/28/21 09:00 08/26/21 09:23 Aripiprazole (Abilify) 5 mg HS PO 08/22/21 21:00 08/26/21 20:19 Senna/Docusate Sodium (Senna Plus) 1 tab BID PO 08/22/21 21:00 08/26/21 20:18 Lamotrigine (LaMICtal) 150 mg DAILY PO 08/29/21 09:00 I have reviewed the current psychotropics carefully including drug interactions. Risk benefit ratio favors no change other than as noted in my dictated progress note. Diagnosis: Problems: (1) Anxiety disorder, unspecified (2) Impulse control disorder, unspecified (3) Major depressive disorder, recurrent (4) Major depressive disorder, severe ESE LEVI MD Aug 26, 2021 21:26
[2021-08-27 06:11] VITALS: BP 130/81
--- NOTE | 2021-08-27 07:15 | PDOC ---
Exam Note: Josef Note: This note is a late entry for 08/25/2021 covers elements not covered in my initial note. Subjective: The patient was seen individually on 08/25/2021, discussed and reviewed the chart with Julia MODI. He slept 4-3/4 hours previous night. The patient had a dressing change per nursing staff but today he was taking his dressing off and hitting his foot against the bedrails. He complains of being helpless and at one point he was urinating on the floor. He continues to have some of the behaviors and I addressed this with him. Review of Systems: No CV, , eye, ENT system symptoms on review. Ambulation in wheelchair. Mental Status Exam: The patient is alert, oriented. Speech is coherent. Abstraction fair. Computation impaired. Language function intact. Mood and affect anxious, depressed. He did appear depressed but no active suicidal or homicidal ideation. The patient continues to blame himself for his behaviors states he does not know why he continues to have these intermittent behaviors and we addressed ways to help modulate this. Laboratory Data: Reviewed. Impression: Major depressive disorder, recurrent. Anxiety disorder unspecified. Plan: No change in current psychotropics. The patient is currently on Lamictal 100 mg a.m. and 150 mg h.s. We will increase this to 150 mg twice a day to help compensate for his mood swings. Assessment: Vital Signs/I&O: Vital Signs Date Time Temp Pulse Resp B/P (MAP) Pulse Ox O2 Delivery O2 Flow Rate FiO2 08/27/21 06:11 97.1 104 20 130/81 (97) 92 08/26/21 05:56 Room Air I & O 08/26/21 08/26/21 08/27/21 14:59 22:59 06:59 Intake Total 480 ml 420 ml Balance 480 ml 420 ml Labs: Laboratory Tests Test 08/26/21 07:33 08/26/21 17:44 08/26/21 19:02 Glucose (Fingerstick) 138 mg/dL (70-99) H 179 mg/dL (70-99) H 180 mg/dL (70-99) H Current Medications: I have reviewed the current psychotropics carefully including drug interactions. Risk benefit ratio favors no change other than as noted in my dictated progress note. Diagnosis: Problems: (1) Impulse control disorder, unspecified (2) Anxiety disorder, unspecified (3) Major depressive disorder, recurrent AMITAESE MD Aug 27, 2021 07:15
--- NOTE | 2021-08-27 07:29 | PDOC ---
Exam Note: Josef Note: This note is a late entry for 08/26/2021 covers elements not covered in my initial note. Subjective: The patient was seen individually on 08/26/2021, discussed and reviewed the chart with Hadley MODI. He slept 4-3/4 hours previous night. Per nursing report, the patient is doing about the same. He continues to have some of the behaviors and I addressed this with him. Ads I met with him individually in his room he stated he did not have a good day. He was complaining of some hip pain. We will defer to Dr. Gandhi. I met with him in his room. Review of Systems: No CV, , eye, ENT system symptoms on review. Ambulation in wheelchair. Mental Status Exam: The patient is alert, oriented. He had not eaten again much of his supper sandwich that had been left for him. His room was dark as I went to meet him. He remains somewhat depressed with no suicidal or homicidal ideation. Speech is coherent. Abstraction fair. Computation impaired. Language function intact. Mood and affect depressed. Laboratory Data: Reviewed. Impression: Major depressive disorder, recurrent, rule out psychotic features. Anxiety disorder unspecified. Plan: No change in current psychotropics. Assessment: Vital Signs/I&O: Vital Signs Date Time Temp Pulse Resp B/P (MAP) Pulse Ox O2 Delivery O2 Flow Rate FiO2 08/27/21 06:11 97.1 104 20 130/81 (97) 92 08/26/21 05:56 Room Air I & O 08/26/21 08/26/21 08/27/21 15:00 23:00 07:00 Intake Total 480 ml 420 ml Balance 480 ml 420 ml Labs: Laboratory Tests Test 08/26/21 07:33 08/26/21 17:44 08/26/21 19:02 Glucose (Fingerstick) 138 mg/dL (70-99) H 179 mg/dL (70-99) H 180 mg/dL (70-99) H Current Medications: I have reviewed the current psychotropics carefully including drug interactions. Risk benefit ratio favors no change other than as noted in my dictated progress note. Diagnosis: Problems: (1) Impulse control disorder, unspecified (2) Anxiety disorder, unspecified (3) Major depressive disorder, recurrent (4) Personality disorder, unspecified ESE LEVI MD Aug 27, 2021 07:29
[2021-08-27] MEDS: INSULIN LISPRO 300 UNITS/3 ML VIAL. SQ SCH ×3 (08:00→17:00)
[2021-08-27] MEDS: DOCUSATE SODIUM 100 MG CAPSULE PO SCH ×2 (08:46→20:27)
[2021-08-27] MEDS: SENNOSIDES/DOCUSATE 8.6/50MG TABLET. PO SCH ×2 (08:46→20:26)
[2021-08-27] MEDS: POTASSIUM CHLORIDE 10 MEQ TABLET.ER. PO SCH (08:47)
[2021-08-27] MEDS: FUROSEMIDE 40 MG TABLET PO SCH (08:47)
[2021-08-27] MEDS: buPROPion XL 150 MG TAB.ER.24H PO SCH (08:47)
[2021-08-27] MEDS: DULoxetine HCL 60 MG CAPSULE.DR PO SCH (08:47)
[2021-08-27] MEDS: CLOPIDOGREL BISULFATE 75 MG TABLET PO SCH (08:47)
[2021-08-27] MEDS: lamoTRIgine 100 MG TABLET. PO SCH ×2 (08:47→20:26)
[2021-08-27] MEDS: CARVEDILOL 12.5 MG TABLET PO SCH ×2 (08:47→17:21)
[2021-08-27] MEDS: ASPIRIN CHEWABLE 81 MG TABLET. PO SCH (08:47)
[2021-08-27] MEDS: LINAGLIPTIN 5 MG TABLET PO SCH (08:47)
[2021-08-27] MEDS: MULTIVITAMIN with MINERAL TABLET. PO SCH (08:47)
[2021-08-27] MEDS: NYSTATIN TOPICAL POWDER 15GM BOTTLE. TP SCH ×2 (09:00→20:27)
[2021-08-27] MEDS: NEOMY/BACITR/POLYMYXIN OINT PACKET. TP SCH ×2 (09:00→20:27)
[2021-08-27] MEDS: DULoxetine HCL 30 MG CAPSULE.DR PO SCH (12:51)
[2021-08-27 16:18] VITALS: BP 119/56
[2021-08-27] MEDS: MIRTAZAPINE 30 MG TABLET PO SCH (20:26)
[2021-08-27] MEDS: ARIPiprazole 5 MG TABLET PO SCH (20:27)
[2021-08-27] MEDS: ATORVASTATIN CALCIUM 20 MG TABLET PO SCH (20:27)
[2021-08-27] MEDS: traZODone 100 MG TABLET. PO SCH (20:27)
--- NOTE | 2021-08-27 21:35 | PDOC ---
Exam Note: Josef Note: Please also refer to the separate dictated note~for this date of service dictated separately.~Patient seen individually. Discussed the patient with Nursing staff reviewed the chart.~Reviewed interim history and current functioning. Reviewed vital signs,~Labs/ Radiology~and current medications noted below. Continue current treatment with the changes noted in the dictated addendum note Assessment: Vital Signs/I&O: Vital Signs Date Time Temp Pulse Resp B/P (MAP) Pulse Ox O2 Delivery O2 Flow Rate FiO2 08/27/21 17:21 92 119/56 08/27/21 16:18 97.7 20 93 Room Air I & O 08/26/21 08/26/21 08/27/21 15:00 23:00 07:00 Intake Total 480 ml 420 ml Balance 480 ml 420 ml Labs: Laboratory Tests Test 08/27/21 07:33 08/27/21 11:51 08/27/21 16:55 08/27/21 19:03 Glucose (Fingerstick) 134 mg/dL (70-99) H 177 mg/dL (70-99) H 162 mg/dL (70-99) H 166 mg/dL (70-99) H Current Medications: Meds: Laboratory Tests Test 08/27/21 07:33 08/27/21 11:51 08/27/21 16:55 08/27/21 19:03 Glucose (Fingerstick) 134 mg/dL 177 mg/dL 162 mg/dL 166 mg/dL Current Medications Medications (Trade) Dose Ordered Sig/Nicky Route PRN Reason Start Time Stop Time Status Last Admin Dose Admin Acetaminophen (Tylenol) 650 mg PRN Q6HRS PRN PO mild pain/temp >100.3 F 08/05/21 16:30 08/24/21 18:26 Aripiprazole (Abilify) 10 mg DAILY PO 08/06/21 09:00 08/21/21 10:13 DC 08/21/21 08:25 Aspirin (Aspirin Chewable) 81 mg DAILY PO 08/06/21 09:00 08/27/21 08:47 Bupropion HCl (Wellbutrin Xl) 150 mg DAILY PO 08/06/21 09:00 08/27/21 08:47 Clopidogrel Bisulfate (Plavix) 75 mg DAILY PO 08/06/21 09:00 08/27/21 08:47 Docusate Sodium (Colace) 100 mg BID PO 08/05/21 21:00 08/27/21 20:27 Duloxetine HCl (Cymbalta) 30 mg AFTRNOON PO 08/06/21 13:00 08/27/21 12:51 Duloxetine HCl (Cymbalta) 60 mg DAILY PO 08/06/21 09:00 08/27/21 08:47 Furosemide (Lasix) 40 mg DAILY PO 08/06/21 09:00 08/27/21 08:47 Lamotrigine (LaMICtal) 150 mg QHS PO 08/05/21 21:00 08/14/21 10:06 DC 08/13/21 19:55 Linagliptin (Tradjenta) 5 mg DAILY PO 08/06/21 09:00 08/27/21 08:47 Al Hydroxide/Mg Hydroxide (Mylanta Plus Xs) 15 ml PRN AFTMEALHC PRN PO DYSPEPSIA 08/05/21 16:30 08/26/21 12:36 Magnesium Citrate (Citroma) 296 ml PRN 1X PRN PO 2nd choice constipation 08/05/21 16:30 08/12/21 07:19 DC 08/11/21 18:33 Mirtazapine (Remeron) 30 mg HS PO 08/05/21 21:00 08/27/21 20:26 Neomycin/ Polymyxin/ Bacitracin (Triple Antibiotic Ointment) 1 pkt BID TP 08/05/21 21:00 08/27/21 20:27 Nystatin (Nystop) 1 neelima BID TP 08/05/21 21:00 08/27/21 20:27 Olanzapine (ZyPREXA ZYDIS) 2.5 mg PRN Q2HRS PRN PO psychosis/agitation 08/05/21 16:30 08/19/21 09:53 Oxycodone/ Acetaminophen (Percocet 10/325) 1 tab PRN Q6HRS PRN PO MODERATE TO SEVERE PAIN 08/05/21 16:30 08/24/21 19:48 Potassium Chloride (Klor-Con) 30 meq DAILY PO 08/06/21 09:00 08/27/21 08:47 Trazodone HCl (Desyrel) 50 mg PRN QHS PRN PO INSOMNIA 08/05/21 16:30 08/14/21 19:55 Trazodone HCl (Desyrel) 100 mg HS PO 08/05/21 21:00 08/27/21 20:27 Trolamine Salicylate (Myoplex) 1 neelima PRN QID PRN TP muscle pain 08/05/21 16:30 UNV Atorvastatin Calcium (Lipitor) 80 mg QHS PO 08/05/21 21:00 08/27/21 20:27 Carvedilol (Coreg) 37.5 mg BIDWMEALS PO 08/05/21 17:00 08/27/21 17:21 Non-Formulary Medication (Insulin Lispro (Humalog)) 0-5 Units, low dose scale. TIDWMEALS SQ 08/05/21 17:00 UNV Multivitamins/ Calcium (Thera-M Plus) 1 tab DAILY PO 08/06/21 09:00 08/27/21 08:47 Multi-Ingredient Ointment (Analgesic [place]uit[place]) 1 neelima PRN QID PRN TP MUSCLE PAIN 08/05/21 17:00 Insulin Human Lispro (HumaLOG) 0-5 UNITS TIDWMEALS SQ 08/05/21 17:00 08/10/21 13:08 Dextrose (Dextrose 50%-Water Syringe) 12.5 gm PRN Q15MIN PRN IV SEE COMMENTS 08/05/21 17:00 Magnesium Hydroxide (Milk Of Magnesia) 2,400 mg PRN QHS PRN PO 1st choice CONSTIPATION 08/08/21 22:15 08/20/21 20:33 Senna/Docusate Sodium (Senna Plus) 1 tab PRN BID PRN PO 2nd choice CONSTIPATION 08/12/21 15:30 08/22/21 13:50 DC 08/20/21 20:29 Lamotrigine (LaMICtal) 200 mg QHS PO 08/14/21 21:00 08/19/21 17:54 DC 08/18/21 20:25 Lamotrigine (LaMICtal) 150 mg QHS PO 08/19/21 21:00 08/27/21 20:26 Lamotrigine (LaMICtal) 100 mg DAILY PO 08/20/21 09:00 08/28/21 09:00 08/27/21 08:47 Aripiprazole (Abilify) 5 mg HS PO 08/22/21 21:00 2/16/22 20:27 Senna/Docusate Sodium (Senna Plus) 1 tab BID PO 08/22/21 21:00 08/27/21 20:26 Lamotrigine (LaMICtal) 150 mg DAILY PO 08/29/21 09:00 I have reviewed the current psychotropics carefully including drug interactions. Risk benefit ratio favors no change other than as noted in my dictated progress note. Diagnosis: Problems: (1) Impulse control disorder, unspecified (2) Anxiety disorder, unspecified (3) Major depressive disorder, recurrent (4) Personality disorder, unspecified ESE LEVI MD Aug 27, 2021 21:35
[2021-08-28 06:14] VITALS: BP 90/53
[2021-08-28] MEDS: INSULIN LISPRO 300 UNITS/3 ML VIAL. SQ SCH ×3 (08:00→17:00)
[2021-08-28] MEDS: MULTIVITAMIN with MINERAL TABLET. PO SCH (09:12)
[2021-08-28] MEDS: NEOMY/BACITR/POLYMYXIN OINT PACKET. TP SCH ×2 (09:12→20:46)
[2021-08-28] MEDS: ASPIRIN CHEWABLE 81 MG TABLET. PO SCH (09:12)
[2021-08-28] MEDS: NYSTATIN TOPICAL POWDER 15GM BOTTLE. TP SCH ×2 (09:12→20:46)
[2021-08-28] MEDS: lamoTRIgine 100 MG TABLET. PO SCH ×2 (09:14→20:47)
[2021-08-28] MEDS: DULoxetine HCL 60 MG CAPSULE.DR PO SCH (09:14)
[2021-08-28] MEDS: CLOPIDOGREL BISULFATE 75 MG TABLET PO SCH (09:14)
[2021-08-28] MEDS: SENNOSIDES/DOCUSATE 8.6/50MG TABLET. PO SCH ×2 (09:14→20:46)
[2021-08-28] MEDS: FUROSEMIDE 40 MG TABLET PO SCH (09:14)
[2021-08-28] MEDS: DOCUSATE SODIUM 100 MG CAPSULE PO SCH ×2 (09:14→20:46)
[2021-08-28] MEDS: LINAGLIPTIN 5 MG TABLET PO SCH (09:14)
[2021-08-28] MEDS: POTASSIUM CHLORIDE 10 MEQ TABLET.ER. PO SCH (09:14)
[2021-08-28] MEDS: CARVEDILOL 12.5 MG TABLET PO SCH ×2 (09:14→17:32)
[2021-08-28] MEDS: buPROPion XL 150 MG TAB.ER.24H PO SCH (09:14)
--- NOTE | 2021-08-28 12:22 | TX PLAN ---
Interdisciplinary Tx Plan Admission Information Aug 05, 2021 at 16:20 Legal Status (on Admission): Voluntary DPOA/Guardian Name: Son-Inocencio Maravilla (not enacted at this time as pt is a self sign) Contact Other Contact Name: Luanne Other Contact Verified Code Status: Full Code Allergies: Coded Allergies: No Known Drug Allergies (Unverified , 04/25/21) Diagnoses Primary Diagnosis: 1. Major depressive disorder, recurrent, moderate. 2. Generalized anxiety disorder. Reasons for Admission: Relation/conflict, Agitated, Depressed, Sig. Change Appetite, Anxiety/Panic, Suicidal ideation, Poor impulse control Problem in Patient's Words: I am terribly depressed and anxious. 08/07/21-Pt reports being very sad. Additional Admission Comments: Per intake pt is depressed, anxious, not eating to tank blood sugar to kill himself, put himself on the floor seven times over a weekend, verbally aggressive toward staff, SI, and texted his son expressing plan to end his life. 08/07/21-Pt reports being very sad. He has spent time in his bed as he has wounds on his legs that require special care. Some of the concern is if he is scratching himself intentionally to create the wounds or if the wounds are created by his skin sticking to his mattress and during transitions using the guerita lift. Problems Active Problems: Depression, anxiety, poor appetite, poor impulse control Inactive Problems: Suicidal ideation Pt Strengths/Limitations Ability for Hall: Poor Cognitive Functioning/Ability: Good Communication Skills/Ability: Good Financial Resources: Good Insight/Judgement: Poor Intellectual Ability: Good Physical Health: Poor Social Skills: Fair Stability in Family: Fair Stability in School/Work: Fair Verbal Skills: Good Discharge Criteria Discharge Criteria: Able meet basic life need, No need for close observ., Adequate arrangements @DC, Adequate self-care, Verbal commit med comply, Improved behavior, Improved mood/thought Other Discharge Comments: None at this time. Preliminary Discharge Plan Preliminary DC Plan: Current Living Arrange. Other Arrangements: Pt facility is looking for an alternate placement, but will accept him back Special Precautions Special Precautions: Other Fall Risk: High Other Precautions (specify): Pt has put himself on the floor. He offers little help during transfers. Initial D/C Plan Pt to return to [facility] should alternative placement not be found. Identified Discharge Needs: None at this time. Currently Utilized Resources Currently Utilized Resources/P: PCP-Dr. Daisy Sanchez Psychiatrist-Dr. Ashley Pichardo, [employer] DPOA (not currently enacted)-Son-Inocencio Maravilla Referrals Community Resources: None at this time. Identified Problems/Hx/Goals Objectives/Short-Term Goals Short Term Goals in Patient's: Need help feeling less depressed and anxious. Interventions/Frequency Staff Interventions/Frequency&: Psychiatry to assess pt three times per week for medication management. Nursing to assess behaviors, monitor medications, and complete 15 minute checks daily. Social work to see pt at least two times weekly to aid in return to placement. Activities to encourage pt to participate in group activities daily. 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 Education: Graduated from [employer] in [place], [place]. Pt reports having taken some classes at the [facility]. Community Follow-up PCP Community Provider/Family Inpu: Pt is a self sign and participated in the development of his own treatment plan. Treatment Plan Explained Patient/Teller Head had this treatment plan explained to him/her as indicated by the signature below and has been given the opportunity to ask questions and make suggestions: Date: Patient/Teller Head Signature: Status Update Update Pt has been eating 30% of his meals. He has been averaging 4 hours of sleep per night, but sleeps a lot during the daytime. Wounds continue to improve. Behaviors remain mostly the same with attention seeking and negative thought patterns. SW and SHEEP HERDER continue to work with pt on his goals of trust, exercise, deep breathing, and focusing on positive thoughts. Pt appreciates time spent with him. Pt continues to be medication compliant. Pt has been up in his wheelchair more, and has not placed himself on the floor. Referral has been sent to [facility] and awaiting response. D/C plan is to return to [facility] if not accepted at [facility]. EVE CORONA Aug 28, 2021 12:22
[2021-08-28] MEDS: DULoxetine HCL 30 MG CAPSULE.DR PO SCH (12:40)
[2021-08-28 15:33] VITALS: BP 128/87
[2021-08-28] MEDS: MIRTAZAPINE 30 MG TABLET PO SCH (20:46)
[2021-08-28] MEDS: traZODone 100 MG TABLET. PO SCH (20:46)
[2021-08-28] MEDS: ATORVASTATIN CALCIUM 20 MG TABLET PO SCH (20:46)
[2021-08-28] MEDS: ARIPiprazole 5 MG TABLET PO SCH (20:46)
--- NOTE | 2021-08-28 21:37 | PDOC ---
Exam Note: Josef Note: Please also refer to the separate dictated note~for this date of service dictated separately.~Patient seen individually. Discussed the patient with Nursing staff reviewed the chart.~Reviewed interim history and current functioning. Reviewed vital signs,~Labs/ Radiology~and current medications noted below. Continue current treatment with the changes noted in the dictated addendum note Assessment: Vital Signs/I&O: Vital Signs Date Time Temp Pulse Resp B/P (MAP) Pulse Ox O2 Delivery O2 Flow Rate FiO2 08/28/21 17:32 88 128/87 08/28/21 15:33 97.3 20 97 08/27/21 16:18 Room Air I & O 08/27/21 08/27/21 08/28/21 15:00 23:00 07:00 Intake Total 600 ml 480 ml Balance 600 ml 480 ml Labs: Laboratory Tests Test 08/28/21 08:01 08/28/21 11:50 08/28/21 17:09 Glucose (Fingerstick) 123 mg/dL (70-99) H 144 mg/dL (70-99) H 130 mg/dL (70-99) H Current Medications: Meds: Laboratory Tests Test 08/28/21 08:01 08/28/21 11:50 08/28/21 17:09 Glucose (Fingerstick) 123 mg/dL 144 mg/dL 130 mg/dL Current Medications Medications (Trade) Dose Ordered Sig/Nicky Route PRN Reason Start Time Stop Time Status Last Admin Dose Admin Acetaminophen (Tylenol) 650 mg PRN Q6HRS PRN PO mild pain/temp >100.3 F 08/05/21 16:30 08/24/21 18:26 Aripiprazole (Abilify) 10 mg DAILY PO 08/06/21 09:00 08/21/21 10:13 DC 08/21/21 08:25 Aspirin (Aspirin Chewable) 81 mg DAILY PO 08/06/21 09:00 08/28/21 09:12 Bupropion HCl (Wellbutrin Xl) 150 mg DAILY PO 08/06/21 09:00 08/28/21 09:14 Clopidogrel Bisulfate (Plavix) 75 mg DAILY PO 08/06/21 09:00 08/28/21 09:14 Docusate Sodium (Colace) 100 mg BID PO 08/05/21 21:00 08/28/21 20:46 Duloxetine HCl (Cymbalta) 30 mg AFTRNOON PO 08/06/21 13:00 08/28/21 12:40 Duloxetine HCl (Cymbalta) 60 mg DAILY PO 08/06/21 09:00 08/28/21 09:14 Furosemide (Lasix) 40 mg DAILY PO 08/06/21 09:00 08/28/21 09:14 Lamotrigine (LaMICtal) 150 mg QHS PO 08/05/21 21:00 08/14/21 10:06 DC 08/13/21 19:55 Linagliptin (Tradjenta) 5 mg DAILY PO 08/06/21 09:00 08/28/21 09:14 Al Hydroxide/Mg Hydroxide (Mylanta Plus Xs) 15 ml PRN AFTMEALHC PRN PO DYSPEPSIA 08/05/21 16:30 08/26/21 12:36 Magnesium Citrate (Citroma) 296 ml PRN 1X PRN PO 2nd choice constipation 08/05/21 16:30 08/12/21 07:19 DC 08/11/21 18:33 Mirtazapine (Remeron) 30 mg HS PO 08/05/21 21:00 08/28/21 20:46 Neomycin/ Polymyxin/ Bacitracin (Triple Antibiotic Ointment) 1 pkt BID TP 08/05/21 21:00 08/28/21 20:46 Nystatin (Nystop) 1 neelima BID TP 08/05/21 21:00 08/28/21 20:46 Olanzapine (ZyPREXA ZYDIS) 2.5 mg PRN Q2HRS PRN PO psychosis/agitation 08/05/21 16:30 08/19/21 09:53 Oxycodone/ Acetaminophen (Percocet 10/325) 1 tab PRN Q6HRS PRN PO MODERATE TO SEVERE PAIN 08/05/21 16:30 08/24/21 19:48 Potassium Chloride (Klor-Con) 30 meq DAILY PO 08/06/21 09:00 08/28/21 09:14 Trazodone HCl (Desyrel) 50 mg PRN QHS PRN PO INSOMNIA 08/05/21 16:30 08/14/21 19:55 Trazodone HCl (Desyrel) 100 mg HS PO 08/05/21 21:00 08/28/21 20:46 Trolamine Salicylate (Myoplex) 1 neelima PRN QID PRN TP muscle pain 08/05/21 16:30 UNV Atorvastatin Calcium (Lipitor) 80 mg QHS PO 08/05/21 21:00 08/28/21 20:46 Carvedilol (Coreg) 37.5 mg BIDWMEALS PO 08/05/21 17:00 08/28/21 17:32 Non-Formulary Medication (Insulin Lispro (Humalog)) 0-5 Units, low dose scale. TIDWMEALS SQ 08/05/21 17:00 UNV Multivitamins/ Calcium (Thera-M Plus) 1 tab DAILY PO 08/06/21 09:00 08/28/21 09:12 Multi-Ingredient Ointment (Analgesic [place]) 1 neelima PRN QID PRN TP MUSCLE PAIN 08/05/21 17:00 Insulin Human Lispro (HumaLOG) 0-5 UNITS TIDWMEALS SQ 08/05/21 17:00 08/10/21 13:08 Dextrose (Dextrose 50%-Water Syringe) 12.5 gm PRN Q15MIN PRN IV SEE COMMENTS 08/05/21 17:00 Magnesium Hydroxide (Milk Of Magnesia) 2,400 mg PRN QHS PRN PO 1st choice CONSTIPATION 08/08/21 22:15 08/20/21 20:33 Senna/Docusate Sodium (Senna Plus) 1 tab PRN BID PRN PO 2nd choice CONSTIPATION 08/12/21 15:30 08/22/21 13:50 DC 08/20/21 20:29 Lamotrigine (LaMICtal) 200 mg QHS PO 08/14/21 21:00 08/19/21 17:54 DC 08/18/21 20:25 Lamotrigine (LaMICtal) 150 mg QHS PO 08/19/21 21:00 08/28/21 20:47 Lamotrigine (LaMICtal) 100 mg DAILY PO 08/20/21 09:00 08/28/21 09:00 DC 08/28/21 09:14 Aripiprazole (Abilify) 5 mg HS PO 08/22/21 21:00 08/28/21 20:46 Senna/Docusate Sodium (Senna Plus) 1 tab BID PO 08/22/21 21:00 08/28/21 20:46 Lamotrigine (LaMICtal) 150 mg DAILY PO 08/29/21 09:00 I have reviewed the current psychotropics carefully including drug interactions. Risk benefit ratio favors no change other than as noted in my dictated progress note. Diagnosis: Problems: (1) Impulse control disorder, unspecified (2) Anxiety disorder, unspecified (3) Major depressive disorder, recurrent (4) Major depressive disorder, severe ESE LEVI MD Aug 28, 2021 21:37
[2021-08-29 06:32] VITALS: BP 122/87
[2021-08-29] MEDS: INSULIN LISPRO 300 UNITS/3 ML VIAL. SQ SCH ×3 (08:00→16:46)
[2021-08-29] MEDS: NEOMY/BACITR/POLYMYXIN OINT PACKET. TP SCH ×2 (09:17→19:57)
[2021-08-29] MEDS: CLOPIDOGREL BISULFATE 75 MG TABLET PO SCH (09:17)
[2021-08-29] MEDS: DOCUSATE SODIUM 100 MG CAPSULE PO SCH ×2 (09:17→19:58)
[2021-08-29] MEDS: LINAGLIPTIN 5 MG TABLET PO SCH (09:17)
[2021-08-29] MEDS: MULTIVITAMIN with MINERAL TABLET. PO SCH (09:17)
[2021-08-29] MEDS: CARVEDILOL 12.5 MG TABLET PO SCH ×2 (09:17→16:43)
[2021-08-29] MEDS: FUROSEMIDE 40 MG TABLET PO SCH (09:18)
[2021-08-29] MEDS: ASPIRIN CHEWABLE 81 MG TABLET. PO SCH (09:18)
[2021-08-29] MEDS: POTASSIUM CHLORIDE 10 MEQ TABLET.ER. PO SCH (09:18)
[2021-08-29] MEDS: DULoxetine HCL 60 MG CAPSULE.DR PO SCH (09:18)
[2021-08-29] MEDS: buPROPion XL 150 MG TAB.ER.24H PO SCH (09:18)
[2021-08-29] MEDS: SENNOSIDES/DOCUSATE 8.6/50MG TABLET. PO SCH ×2 (09:18→19:58)
[2021-08-29] MEDS: lamoTRIgine 100 MG TABLET. PO SCH ×2 (09:19→19:57)
[2021-08-29] MEDS: NYSTATIN TOPICAL POWDER 15GM BOTTLE. TP SCH ×2 (09:20→19:58)
[2021-08-29] MEDS: DULoxetine HCL 30 MG CAPSULE.DR PO SCH (12:13)
--- NOTE | 2021-08-29 13:54 | RAD ---
EXAM: Right foot, 3 views. HISTORY: Wound. Osteomyelitis. COMPARISON: 05/13/2021 FINDINGS: 3 views of the right foot are obtained. There has been amputation of the fifth metatarsal a nd phalanx and second phalanx. There is a mildly displaced fracture involving the lateral base of the first distal phalanx. There is a chronic appearing nonunited fracture deformity at the base of the t hird metatarsal. There is also a suspected healed fracture involving the base of the fourth metatarsa l. There are third and fourth hammertoe deformities. There is dorsal soft tissue swelling. There is m inimal enthesopathy at the Achilles tendon insertion. IMPRESSION: 1. No convincing radiographic evidence of osteomyelitis. Note is made that MRI is more sensitive for osteomyelitis. 2. Mildly displaced fracture involving the base of the first distal phalanx. There also chronic appea ring fractures involving the bases of the third and fourth metatarsals. 3. 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 4. Third and fourth hammertoe deformities. Electronically signed by: Kathryn Wells MD (08/29/2021 1:51 PM) [id number]
[2021-08-29 15:35] VITALS: BP 120/81
[2021-08-29] MEDS: ATORVASTATIN CALCIUM 20 MG TABLET PO SCH (19:58)
[2021-08-29] MEDS: traZODone 100 MG TABLET. PO SCH (19:58)
[2021-08-29] MEDS: MIRTAZAPINE 30 MG TABLET PO SCH (19:58)
[2021-08-29] MEDS: ARIPiprazole 5 MG TABLET PO SCH (19:58)
--- NOTE | 2021-08-29 21:23 | PDOC ---
Exam Note: Josef Note: This note is a late entry for 08/27/2021 covers elements not covered in my initial note. Subjective: The patient was seen individually on 08/27/2021, discussed and reviewed the chart with Irene MODI. He slept 4 hours previous night. Overall per nursing report, the patient is doing better. He wanted to get out of bed for dinner which is an improvement for him. He has not been hitting his feet on the bedrail. Review of Systems: Chronic pain. Impaired ambulation in wheelchair. No CV, , pulmonary, eye, ENT system symptoms on review. Mental Status Exam: The patient is reasonably oriented. Speech is coherent has some latency. Abstraction fair. Computation impaired. Language function intact. Mood and affect remains somewhat dysphoric but improved. No psychotic symptoms, suicidal or homicidal ideation. Laboratory Data: Reviewed. Impression: Major depressive disorder, recurrent, rule out psychotic features. Anxiety disorder unspecified. Plan: No change in current psychotropics. Assessment: Vital Signs/I&O: Vital Signs Date Time Temp Pulse Resp B/P (MAP) Pulse Ox O2 Delivery O2 Flow Rate FiO2 08/29/21 16:43 105 120/81 08/29/21 15:35 97.4 18 100 08/27/21 16:18 Room Air I & O 08/28/21 08/28/21 08/29/21 15:00 23:00 07:00 Intake Total 240 ml 480 ml Balance 240 ml 480 ml Labs: Laboratory Tests Test 08/29/21 07:58 08/29/21 11:55 08/29/21 16:27 08/29/21 19:08 Glucose (Fingerstick) 133 mg/dL (70-99) H 127 mg/dL (70-99) H 162 mg/dL (70-99) H 127 mg/dL (70-99) H Current Medications: Meds: Current Medications Medications (Trade) Dose Ordered Sig/Nicky Route PRN Reason Start Time Stop Time Status Last Admin Dose Admin Lamotrigine (LaMICtal) 150 mg DAILY PO 08/29/21 09:00 08/29/21 09:19 I have reviewed the current psychotropics carefully including drug interactions. Risk benefit ratio favors no change other than as noted in my dictated progress note. Diagnosis: Problems: (1) Impulse control disorder, unspecified (2) Anxiety disorder, unspecified (3) Major depressive disorder, severe ESE LEVI MD Aug 29, 2021 21:23
--- NOTE | 2021-08-29 21:35 | PDOC ---
Exam Note: Josef Note: This note is a late entry for 08/28/2021 covers elements not covered in my initial note. Subjective: The patient was reviewed on telehealth rounds at treatment team meeting in the morning on 08/28/2021 with Chen Natarajan (manager social media) and Susi MODI, discussed and reviewed the chart. Discussed and reviewed his diagnoses, progress, placement options at length. Sleeping average 4 hours. Appetite is 30%. He remains anxious, restless. I met with the patient on telehealth rounds in the evening. Per nursing report, he has been pulling off his bandages from the wounds. Review of Systems: Chronic pain. Impaired ambulation in wheelchair. No CV, , pulmonary, eye, ENT system symptoms on review. Mental Status Exam: The patient is oriented reasonably. Speech is coherent. Abstraction fair. Computation impaired. Language function intact. Mood and affect less dysphoric. No suicidal or homicidal ideation. Laboratory Data: Reviewed. Impression: Major depressive disorder, recurrent. Anxiety disorder unspecified. Plan: No change in current psychotropics. Assessment: Vital Signs/I&O: Vital Signs Date Time Temp Pulse Resp B/P (MAP) Pulse Ox O2 Delivery O2 Flow Rate FiO2 08/29/21 16:43 105 120/81 08/29/21 15:35 97.4 18 100 08/27/21 16:18 Room Air I & O 08/28/21 08/28/21 08/29/21 14:59 22:59 06:59 Intake Total 240 ml 480 ml Balance 240 ml 480 ml Labs: Laboratory Tests Test 08/29/21 07:58 08/29/21 11:55 08/29/21 16:27 08/29/21 19:08 Glucose (Fingerstick) 133 mg/dL (70-99) H 127 mg/dL (70-99) H 162 mg/dL (70-99) H 127 mg/dL (70-99) H Current Medications: Meds: Current Medications Medications (Trade) Dose Ordered Sig/Nicky Route PRN Reason Start Time Stop Time Status Last Admin Dose Admin Lamotrigine (LaMICtal) 150 mg DAILY PO 08/29/21 09:00 08/29/21 09:19 I have reviewed the current psychotropics carefully including drug interactions. Risk benefit ratio favors no change other than as noted in my dictated progress note. Diagnosis: Problems: (1) Impulse control disorder, unspecified (2) Anxiety disorder, unspecified (3) Major depressive disorder, recurrent (4) Major depressive disorder, recurrent, severe with psychotic features ESE LEVI MD Aug 29, 2021 21:35
--- NOTE | 2021-08-29 21:48 | PDOC ---
Exam Note: Josef Note: Please also refer to the separate dictated note~for this date of service dictated separately.~Patient seen individually. Discussed the patient with Nursing staff reviewed the chart.~Reviewed interim history and current functioning. Reviewed vital signs,~Labs/ Radiology~and current medications noted below. Continue current treatment with the changes noted in the dictated addendum note Assessment: Vital Signs/I&O: Vital Signs Date Time Temp Pulse Resp B/P (MAP) Pulse Ox O2 Delivery O2 Flow Rate FiO2 08/29/21 16:43 105 120/81 08/29/21 15:35 97.4 18 100 08/27/21 16:18 Room Air I & O 08/28/21 08/28/21 08/29/21 15:00 23:00 07:00 Intake Total 240 ml 480 ml Balance 240 ml 480 ml Labs: Laboratory Tests Test 08/29/21 07:58 08/29/21 11:55 08/29/21 16:27 08/29/21 19:08 Glucose (Fingerstick) 133 mg/dL (70-99) H 127 mg/dL (70-99) H 162 mg/dL (70-99) H 127 mg/dL (70-99) H Current Medications: Meds: Laboratory Tests Test 08/29/21 07:58 08/29/21 11:55 08/29/21 16:27 08/29/21 19:08 Glucose (Fingerstick) 133 mg/dL 127 mg/dL 162 mg/dL 127 mg/dL Current Medications Medications (Trade) Dose Ordered Sig/Nicky Route PRN Reason Start Time Stop Time Status Last Admin Dose Admin Acetaminophen (Tylenol) 650 mg PRN Q6HRS PRN PO mild pain/temp >100.3 F 08/05/21 16:30 08/24/21 18:26 Aripiprazole (Abilify) 10 mg DAILY PO 08/06/21 09:00 08/21/21 10:13 DC 08/21/21 08:25 Aspirin (Aspirin Chewable) 81 mg DAILY PO 08/06/21 09:00 08/29/21 09:18 Bupropion HCl (Wellbutrin Xl) 150 mg DAILY PO 08/06/21 09:00 08/29/21 09:18 Clopidogrel Bisulfate (Plavix) 75 mg DAILY PO 08/06/21 09:00 08/29/21 09:17 Docusate Sodium (Colace) 100 mg BID PO 08/05/21 21:00 08/29/21 19:58 Duloxetine HCl (Cymbalta) 30 mg AFTRNOON PO 08/06/21 13:00 08/29/21 12:13 Duloxetine HCl (Cymbalta) 60 mg DAILY PO 08/06/21 09:00 08/29/21 09:18 Furosemide (Lasix) 40 mg DAILY PO 08/06/21 09:00 08/29/21 09:18 Lamotrigine (LaMICtal) 150 mg QHS PO 08/05/21 21:00 08/14/21 10:06 DC 08/13/21 19:55 Linagliptin (Tradjenta) 5 mg DAILY PO 08/06/21 09:00 08/29/21 09:17 Al Hydroxide/Mg Hydroxide (Mylanta Plus Xs) 15 ml PRN AFTMEALHC PRN PO DYSPEPSIA 08/05/21 16:30 08/26/21 12:36 Magnesium Citrate (Citroma) 296 ml PRN 1X PRN PO 2nd choice constipation 08/05/21 16:30 08/12/21 07:19 DC 08/11/21 18:33 Mirtazapine (Remeron) 30 mg HS PO 08/05/21 21:00 08/29/21 19:58 Neomycin/ Polymyxin/ Bacitracin (Triple Antibiotic Ointment) 1 pkt BID TP 08/05/21 21:00 08/29/21 19:57 Nystatin (Nystop) 1 neelima BID TP 08/05/21 21:00 08/29/21 19:58 Olanzapine (ZyPREXA ZYDIS) 2.5 mg PRN Q2HRS PRN PO psychosis/agitation 08/05/21 16:30 08/19/21 09:53 Oxycodone/ Acetaminophen (Percocet 10/325) 1 tab PRN Q6HRS PRN PO MODERATE TO SEVERE PAIN 08/05/21 16:30 08/24/21 19:48 Potassium Chloride (Klor-Con) 30 meq DAILY PO 08/06/21 09:00 08/29/21 09:18 Trazodone HCl (Desyrel) 50 mg PRN QHS PRN PO INSOMNIA 08/05/21 16:30 08/14/21 19:55 Trazodone HCl (Desyrel) 100 mg HS PO 08/05/21 21:00 08/29/21 19:58 Trolamine Salicylate (Myoplex) 1 neelima PRN QID PRN TP muscle pain 08/05/21 16:30 UNV Atorvastatin Calcium (Lipitor) 80 mg QHS PO 08/05/21 21:00 08/29/21 19:58 Carvedilol (Coreg) 37.5 mg BIDWMEALS PO 08/05/21 17:00 08/29/21 16:43 Non-Formulary Medication (Insulin Lispro (Humalog)) 0-5 Units, low dose scale. TIDWMEALS SQ 08/05/21 17:00 UNV Multivitamins/ Calcium (Thera-M Plus) 1 tab DAILY PO 08/06/21 09:00 08/29/21 09:17 Multi-Ingredient Ointment (Analgesic [place]) 1 neelima PRN QID PRN TP MUSCLE PAIN 08/05/21 17:00 Insulin Human Lispro (HumaLOG) 0-5 UNITS TIDWMEALS SQ 08/05/21 17:00 08/10/21 13:08 Dextrose (Dextrose 50%-Water Syringe) 12.5 gm PRN Q15MIN PRN IV SEE COMMENTS 08/05/21 17:00 Magnesium Hydroxide (Milk Of Magnesia) 2,400 mg PRN QHS PRN PO 1st choice CONSTIPATION 08/08/21 22:15 08/20/21 20:33 Senna/Docusate Sodium (Senna Plus) 1 tab PRN BID PRN PO 2nd choice CONSTIPATION 08/12/21 15:30 08/22/21 13:50 DC 08/20/21 20:29 Lamotrigine (LaMICtal) 200 mg QHS PO 08/14/21 21:00 08/19/21 17:54 DC 08/18/21 20:25 Lamotrigine (LaMICtal) 150 mg QHS PO 08/19/21 21:00 08/29/21 19:57 Lamotrigine (LaMICtal) 100 mg DAILY PO 08/20/21 09:00 08/28/21 09:00 DC 08/28/21 09:14 Aripiprazole (Abilify) 5 mg HS PO 08/22/21 21:00 08/29/21 19:58 Senna/Docusate Sodium (Senna Plus) 1 tab BID PO 08/22/21 21:00 08/29/21 19:58 Lamotrigine (LaMICtal) 150 mg DAILY PO 08/29/21 09:00 08/29/21 09:19 Current Medications Medications (Trade) Dose Ordered Sig/Nicky Route PRN Reason Start Time Stop Time Status Last Admin Dose Admin Lamotrigine (LaMICtal) 150 mg DAILY PO 08/29/21 09:00 08/29/21 09:19 I have reviewed the current psychotropics carefully including drug interactions. Risk benefit ratio favors no change other than as noted in my dictated progress note. Diagnosis: Problems: (1) Impulse control disorder, unspecified (2) Anxiety disorder, unspecified (3) Major depressive disorder, severe (4) Major depressive disorder, recurrent, severe with psychotic features ESE LEVI MD Aug 29, 2021 21:48
[2021-08-30 05:52] VITALS: BP 107/73
[2021-08-30] MEDS: INSULIN LISPRO 300 UNITS/3 ML VIAL. SQ SCH ×3 (08:00→17:00)
[2021-08-30] MEDS: DOCUSATE SODIUM 100 MG CAPSULE PO SCH ×2 (08:29→19:44)
[2021-08-30] MEDS: buPROPion XL 150 MG TAB.ER.24H PO SCH (08:29)
[2021-08-30] MEDS: CARVEDILOL 12.5 MG TABLET PO SCH ×2 (08:29→16:56)
[2021-08-30] MEDS: POTASSIUM CHLORIDE 10 MEQ TABLET.ER. PO SCH (08:30)
[2021-08-30] MEDS: ASPIRIN CHEWABLE 81 MG TABLET. PO SCH (08:30)
[2021-08-30] MEDS: MULTIVITAMIN with MINERAL TABLET. PO SCH (08:30)
[2021-08-30] MEDS: FUROSEMIDE 40 MG TABLET PO SCH (08:30)
[2021-08-30] MEDS: SENNOSIDES/DOCUSATE 8.6/50MG TABLET. PO SCH ×2 (08:30→19:44)
[2021-08-30] MEDS: CLOPIDOGREL BISULFATE 75 MG TABLET PO SCH (08:30)
[2021-08-30] MEDS: LINAGLIPTIN 5 MG TABLET PO SCH (08:30)
[2021-08-30] MEDS: DULoxetine HCL 60 MG CAPSULE.DR PO SCH (08:30)
[2021-08-30] MEDS: lamoTRIgine 100 MG TABLET. PO SCH ×2 (08:31→19:44)
[2021-08-30] MEDS: NEOMY/BACITR/POLYMYXIN OINT PACKET. TP SCH ×2 (08:33→19:44)
[2021-08-30] MEDS: NYSTATIN TOPICAL POWDER 15GM BOTTLE. TP SCH ×2 (08:33→21:00)
[2021-08-30] MEDS: DULoxetine HCL 30 MG CAPSULE.DR PO SCH (11:58)
[2021-08-30 15:51] VITALS: BP 111/75
[2021-08-30] MEDS: ATORVASTATIN CALCIUM 20 MG TABLET PO SCH (19:44)
[2021-08-30] MEDS: ARIPiprazole 5 MG TABLET PO SCH (19:44)
[2021-08-30] MEDS: MIRTAZAPINE 30 MG TABLET PO SCH (19:44)
[2021-08-30] MEDS: traZODone 100 MG TABLET. PO SCH (19:44)
[2021-08-30] MEDS: traZODone 50 MG TABLET. PO PRN (19:47)
--- NOTE | 2021-08-30 21:27 | PDOC ---
Exam Note: Josef Note: Please also refer to the separate dictated note~for this date of service dictated separately.~Patient seen individually. Discussed the patient with Nursing staff reviewed the chart.~Reviewed interim history and current functioning. Reviewed vital signs,~Labs/ Radiology~and current medications noted below. Continue current treatment with the changes noted in the dictated addendum note Assessment: Vital Signs/I&O: Vital Signs Date Time Temp Pulse Resp B/P (MAP) Pulse Ox O2 Delivery O2 Flow Rate FiO2 08/30/21 16:56 91 111/75 08/30/21 15:51 97.5 22 95 08/30/21 05:52 Room Air I & O 08/29/21 08/29/21 08/30/21 15:00 23:00 07:00 Intake Total 600 ml 900 ml Output Total 300 ml Balance 600 ml 900 ml -300 ml Labs: Laboratory Tests Test 08/30/21 07:40 08/30/21 12:12 08/30/21 16:44 08/30/21 20:32 Glucose (Fingerstick) 137 mg/dL (70-99) H 160 mg/dL (70-99) H 129 mg/dL (70-99) H 122 mg/dL (70-99) H Current Medications: Meds: Laboratory Tests Test 08/30/21 07:40 08/30/21 12:12 08/30/21 16:44 08/30/21 20:32 Glucose (Fingerstick) 137 mg/dL 160 mg/dL 129 mg/dL 122 mg/dL Current Medications Medications (Trade) Dose Ordered Sig/Nicky Route PRN Reason Start Time Stop Time Status Last Admin Dose Admin Acetaminophen (Tylenol) 650 mg PRN Q6HRS PRN PO mild pain/temp >100.3 F 08/05/21 16:30 08/24/21 18:26 Aripiprazole (Abilify) 10 mg DAILY PO 08/06/21 09:00 08/21/21 10:13 DC 08/21/21 08:25 Aspirin (Aspirin Chewable) 81 mg DAILY PO 08/06/21 09:00 08/30/21 08:30 Bupropion HCl (Wellbutrin Xl) 150 mg DAILY PO 08/06/21 09:00 08/30/21 08:29 Clopidogrel Bisulfate (Plavix) 75 mg DAILY PO 08/06/21 09:00 08/30/21 08:30 Docusate Sodium (Colace) 100 mg BID PO 08/05/21 21:00 08/30/21 19:44 Duloxetine HCl (Cymbalta) 30 mg AFTRNOON PO 08/06/21 13:00 08/30/21 11:58 Duloxetine HCl (Cymbalta) 60 mg DAILY PO 08/06/21 09:00 08/30/21 08:30 Furosemide (Lasix) 40 mg DAILY PO 08/06/21 09:00 08/30/21 08:30 Lamotrigine (LaMICtal) 150 mg QHS PO 08/05/21 21:00 08/14/21 10:06 DC 08/13/21 19:55 Linagliptin (Tradjenta) 5 mg DAILY PO 08/06/21 09:00 08/30/21 08:30 Al Hydroxide/Mg Hydroxide (Mylanta Plus Xs) 15 ml PRN AFTMEALHC PRN PO DYSPEPSIA 08/05/21 16:30 08/26/21 12:36 Magnesium Citrate (Citroma) 296 ml PRN 1X PRN PO 2nd choice constipation 08/05/21 16:30 08/12/21 07:19 DC 08/11/21 18:33 Mirtazapine (Remeron) 30 mg HS PO 08/05/21 21:00 08/30/21 19:44 Neomycin/ Polymyxin/ Bacitracin (Triple Antibiotic Ointment) 1 pkt BID TP 08/05/21 21:00 08/30/21 19:44 Nystatin (Nystop) 1 neelima BID TP 08/05/21 21:00 08/30/21 08:33 Olanzapine (ZyPREXA ZYDIS) 2.5 mg PRN Q2HRS PRN PO psychosis/agitation 08/05/21 16:30 08/19/21 09:53 Oxycodone/ Acetaminophen (Percocet 10/325) 1 tab PRN Q6HRS PRN PO MODERATE TO SEVERE PAIN 08/05/21 16:30 08/24/21 19:48 Potassium Chloride (Klor-Con) 30 meq DAILY PO 08/06/21 09:00 08/30/21 08:30 Trazodone HCl (Desyrel) 50 mg PRN QHS PRN PO INSOMNIA 08/05/21 16:30 08/30/21 19:47 Trazodone HCl (Desyrel) 100 mg HS PO 08/05/21 21:00 08/30/21 19:44 Trolamine Salicylate (Myoplex) 1 neelima PRN QID PRN TP muscle pain 08/05/21 16:30 UNV Atorvastatin Calcium (Lipitor) 80 mg QHS PO 08/05/21 21:00 08/30/21 19:44 Carvedilol (Coreg) 37.5 mg BIDWMEALS PO 08/05/21 17:00 08/30/21 16:56 Non-Formulary Medication (Insulin Lispro (Humalog)) 0-5 Units, low dose scale. TIDWMEALS SQ 08/05/21 17:00 UNV Multivitamins/ Calcium (Thera-M Plus) 1 tab DAILY PO 08/06/21 09:00 08/30/21 08:30 Multi-Ingredient Ointment (Analgesic [place]) 1 neelima PRN QID PRN TP MUSCLE PAIN 08/05/21 17:00 Insulin Human Lispro (HumaLOG) 0-5 UNITS TIDWMEALS SQ 08/05/21 17:00 08/10/21 13:08 Dextrose (Dextrose 50%-Water Syringe) 12.5 gm PRN Q15MIN PRN IV SEE COMMENTS 08/05/21 17:00 Magnesium Hydroxide (Milk Of Magnesia) 2,400 mg PRN QHS PRN PO CONSTIPATION 08/08/21 22:15 08/20/21 20:33 Senna/Docusate Sodium (Senna Plus) 1 tab PRN BID PRN PO 2nd choice CONSTIPATION 08/12/21 15:30 08/22/21 13:50 DC 08/20/21 20:29 Lamotrigine (LaMICtal) 200 mg QHS PO 08/14/21 21:00 08/19/21 17:54 DC 08/18/21 20:25 Lamotrigine (LaMICtal) 150 mg QHS PO 08/19/21 21:00 08/30/21 19:44 Lamotrigine (LaMICtal) 100 mg DAILY PO 08/20/21 09:00 08/28/21 09:00 DC 08/28/21 09:14 Aripiprazole (Abilify) 5 mg HS PO 08/22/21 21:00 08/30/21 19:44 Senna/Docusate Sodium (Senna Plus) 1 tab BID PO 08/22/21 21:00 08/30/21 19:44 Lamotrigine (LaMICtal) 150 mg DAILY PO 08/29/21 09:00 08/30/21 08:31 I have reviewed the current psychotropics carefully including drug interactions. Risk benefit ratio favors no change other than as noted in my dictated progress note. Diagnosis: Problems: (1) Anxiety disorder, unspecified (2) Major depressive disorder, severe (3) Impulse control disorder, unspecified ESE LEVI MD Aug 30, 2021 21:27
[2021-08-30] MEDS: oxyCODONE/APAP 10/325 1 TAB TABLET PO PRN (23:35)
[2021-08-31 06:04] VITALS: BP 161/89
[2021-08-31] MEDS: INSULIN LISPRO 300 UNITS/3 ML VIAL. SQ SCH ×3 (08:00→17:00)
[2021-08-31] MEDS: SENNOSIDES/DOCUSATE 8.6/50MG TABLET. PO SCH ×2 (08:38→21:07)
[2021-08-31] MEDS: NEOMY/BACITR/POLYMYXIN OINT PACKET. TP SCH ×2 (08:38→21:07)
[2021-08-31] MEDS: DULoxetine HCL 60 MG CAPSULE.DR PO SCH (08:38)
[2021-08-31] MEDS: CARVEDILOL 12.5 MG TABLET PO SCH ×2 (08:38→16:46)
[2021-08-31] MEDS: POTASSIUM CHLORIDE 10 MEQ TABLET.ER. PO SCH (08:39)
[2021-08-31] MEDS: CLOPIDOGREL BISULFATE 75 MG TABLET PO SCH (08:39)
[2021-08-31] MEDS: FUROSEMIDE 40 MG TABLET PO SCH (08:39)
[2021-08-31] MEDS: lamoTRIgine 100 MG TABLET. PO SCH ×2 (08:40→21:07)
[2021-08-31] MEDS: LINAGLIPTIN 5 MG TABLET PO SCH (08:40)
[2021-08-31] MEDS: buPROPion XL 150 MG TAB.ER.24H PO SCH (08:41)
[2021-08-31] MEDS: MULTIVITAMIN with MINERAL TABLET. PO SCH (08:41)
[2021-08-31] MEDS: DOCUSATE SODIUM 100 MG CAPSULE PO SCH ×2 (08:41→21:07)
[2021-08-31] MEDS: ASPIRIN CHEWABLE 81 MG TABLET. PO SCH (08:41)
[2021-08-31] MEDS: NYSTATIN TOPICAL POWDER 15GM BOTTLE. TP SCH ×2 (08:44→21:08)
[2021-08-31] MEDS: DULoxetine HCL 30 MG CAPSULE.DR PO SCH (12:00)
[2021-08-31] MEDS: MAGNESIUM HYDROXIDE 2,400 MG/30 ML ORAL.SUSP. PO PRN (15:15)
[2021-08-31 15:39] VITALS: BP 129/89
[2021-08-31] MEDS: traZODone 100 MG TABLET. PO SCH (21:07)
[2021-08-31] MEDS: MIRTAZAPINE 30 MG TABLET PO SCH (21:07)
[2021-08-31] MEDS: ARIPiprazole 5 MG TABLET PO SCH (21:07)
[2021-08-31] MEDS: ATORVASTATIN CALCIUM 20 MG TABLET PO SCH (21:08)
--- NOTE | 2021-08-31 21:28 | PDOC ---
Exam Note: Josef Note: Please also refer to the separate dictated note~for this date of service dictated separately.~Patient seen individually. Discussed the patient with Nursing staff reviewed the chart.~Reviewed interim history and current functioning. Reviewed vital signs,~Labs/ Radiology~and current medications noted below. Continue current treatment with the changes noted in the dictated addendum note Assessment: Vital Signs/I&O: Vital Signs Date Time Temp Pulse Resp B/P (MAP) Pulse Ox O2 Delivery O2 Flow Rate FiO2 08/31/21 16:46 101 129/89 08/31/21 15:39 97.6 20 100 Room Air I & O 08/30/21 08/30/21 08/31/21 15:00 23:00 07:00 Intake Total 340 ml 120 ml Balance 340 ml 120 ml Labs: Laboratory Tests Test 08/31/21 08:01 08/31/21 12:02 08/31/21 16:59 08/31/21 19:24 Glucose (Fingerstick) 125 mg/dL (70-99) H 140 mg/dL (70-99) H 117 mg/dL (70-99) H 149 mg/dL (70-99) H Current Medications: Meds: Laboratory Tests Test 08/31/21 08:01 08/31/21 12:02 08/31/21 16:59 08/31/21 19:24 Glucose (Fingerstick) 125 mg/dL 140 mg/dL 117 mg/dL 149 mg/dL Current Medications Medications (Trade) Dose Ordered Sig/Nicky Route PRN Reason Start Time Stop Time Status Last Admin Dose Admin Acetaminophen (Tylenol) 650 mg PRN Q6HRS PRN PO mild pain/temp >100.3 F 08/05/21 16:30 08/24/21 18:26 Aripiprazole (Abilify) 10 mg DAILY PO 08/06/21 09:00 08/21/21 10:13 DC 08/21/21 08:25 Aspirin (Aspirin Chewable) 81 mg DAILY PO 08/06/21 09:00 08/31/21 08:41 Bupropion HCl (Wellbutrin Xl) 150 mg DAILY PO 08/06/21 09:00 08/31/21 08:41 Clopidogrel Bisulfate (Plavix) 75 mg DAILY PO 08/06/21 09:00 08/31/21 08:39 Docusate Sodium (Colace) 100 mg BID PO 08/05/21 21:00 08/31/21 21:07 Duloxetine HCl (Cymbalta) 30 mg AFTRNOON PO 08/06/21 13:00 08/31/21 12:00 Duloxetine HCl (Cymbalta) 60 mg DAILY PO 08/06/21 09:00 08/31/21 08:38 Furosemide (Lasix) 40 mg DAILY PO 08/06/21 09:00 08/31/21 08:39 Lamotrigine (LaMICtal) 150 mg QHS PO 08/05/21 21:00 08/14/21 10:06 DC 08/13/21 19:55 Linagliptin (Tradjenta) 5 mg DAILY PO 08/06/21 09:00 08/31/21 08:40 Al Hydroxide/Mg Hydroxide (Mylanta Plus Xs) 15 ml PRN AFTMEALHC PRN PO DYSPEPSIA 08/05/21 16:30 08/26/21 12:36 Magnesium Citrate (Citroma) 296 ml PRN 1X PRN PO 2nd choice constipation 08/05/21 16:30 08/12/21 07:19 DC 08/11/21 18:33 Mirtazapine (Remeron) 30 mg HS PO 08/05/21 21:00 08/31/21 21:07 Neomycin/ Polymyxin/ Bacitracin (Triple Antibiotic Ointment) 1 pkt BID TP 08/05/21 21:00 08/31/21 21:07 Nystatin (Nystop) 1 neelima BID TP 08/05/21 21:00 08/31/21 21:08 Olanzapine (ZyPREXA ZYDIS) 2.5 mg PRN Q2HRS PRN PO psychosis/agitation 08/05/21 16:30 08/30/21 23:35 Oxycodone/ Acetaminophen (Percocet 10/325) 1 tab PRN Q6HRS PRN PO MODERATE TO SEVERE PAIN 08/05/21 16:30 08/30/21 23:35 Potassium Chloride (Klor-Con) 30 meq DAILY PO 08/06/21 09:00 08/31/21 08:39 Trazodone HCl (Desyrel) 50 mg PRN QHS PRN PO INSOMNIA 08/05/21 16:30 08/30/21 19:47 Trazodone HCl (Desyrel) 100 mg HS PO 08/05/21 21:00 08/31/21 21:07 Trolamine Salicylate (Myoplex) 1 neelima PRN QID PRN TP muscle pain 08/05/21 16:30 UNV Atorvastatin Calcium (Lipitor) 80 mg QHS PO 08/05/21 21:00 08/31/21 21:08 Carvedilol (Coreg) 37.5 mg BIDWMEALS PO 08/05/21 17:00 08/31/21 16:46 Non-Formulary Medication (Insulin Lispro (Humalog)) 0-5 Units, low dose scale. TIDWMEALS SQ 08/05/21 17:00 UNV Multivitamins/ Calcium (Thera-M Plus) 1 tab DAILY PO 08/06/21 09:00 08/31/21 08:41 Multi-Ingredient Ointment (Analgesic [place]) 1 neelima PRN QID PRN TP MUSCLE PAIN 08/05/21 17:00 Insulin Human Lispro (HumaLOG) 0-5 UNITS TIDWMEALS SQ 08/05/21 17:00 08/10/21 13:08 Dextrose (Dextrose 50%-Water Syringe) 12.5 gm PRN Q15MIN PRN IV SEE COMMENTS 08/05/21 17:00 Magnesium Hydroxide (Milk Of Magnesia) 2,400 mg PRN QHS PRN PO CONSTIPATION 08/08/21 22:15 08/31/21 15:15 Senna/Docusate Sodium (Senna Plus) 1 tab PRN BID PRN PO 2nd choice CONSTIPATION 08/12/21 15:30 08/22/21 13:50 DC 08/20/21 20:29 Lamotrigine (LaMICtal) 200 mg QHS PO 08/14/21 21:00 08/19/21 17:54 DC 08/18/21 20:25 Lamotrigine (LaMICtal) 150 mg QHS PO 08/19/21 21:00 08/31/21 21:07 Lamotrigine (LaMICtal) 100 mg DAILY PO 08/20/21 09:00 08/28/21 09:00 DC 08/28/21 09:14 Aripiprazole (Abilify) 5 mg HS PO 08/22/21 21:00 08/31/21 21:07 Senna/Docusate Sodium (Senna Plus) 1 tab BID PO 08/22/21 21:00 08/31/21 21:07 Lamotrigine (LaMICtal) 150 mg DAILY PO 08/29/21 09:00 08/31/21 08:40 I have reviewed the current psychotropics carefully including drug interactions. Risk benefit ratio favors no change other than as noted in my dictated progress note. Diagnosis: Problems: (1) Impulse control disorder, unspecified (2) Anxiety disorder, unspecified (3) Major depressive disorder, recurrent (4) Major depressive disorder, recurrent, severe with psychotic features ESE LEVI MD Aug 31, 2021 21:28
[2021-08-31] MEDS: traZODone 50 MG TABLET. PO PRN (22:53)
[2021-09-01 05:48] VITALS: BP 129/84
--- NOTE | 2021-09-01 07:20 | PDOC ---
Exam Note: Josef Note: This note is a late entry for 08/29/2021 covers elements not covered in my initial note. Subjective: The patient was seen individually on 08/29/2021, discussed and reviewed the chart with Mnauel MODI. The patient slept 7-1/2 hours previous night. He has been up for meals which is an improvement for him. He has been less irritable, still depressed, but not suicidal. Review of Systems: Chronic pain. Impaired ambulation, in wheelchair and Broda chair with Shyam lift. No CV, , pulmonary, eye, ENT system symptoms on review. Mental Status Exam: The patient is oriented reasonably. Speech is coherent. Abstraction fair. Computation impaired. Language function intact. Mood and affect still somewhat dysphoric. He felt a little hopeless that he would never get to leave here. We discussed that Jason-19 had extended his hospitalization here but the plan was for him to transition back to the halfway. No suicidal or homicidal ideation. Laboratory Data: Reviewed. Impression: Major depressive disorder with psychotic features. Anxiety disorder unspecified. Plan: No change in current psychotropics. Assessment: Vital Signs/I&O: Vital Signs Date Time Temp Pulse Resp B/P (MAP) Pulse Ox O2 Delivery O2 Flow Rate FiO2 09/01/21 05:48 97.0 103 24 129/84 (99) 93 08/31/21 15:39 Room Air I & O 08/31/21 08/31/21 09/01/21 15:00 23:00 07:00 Intake Total 480 ml 240 ml 240 ml Balance 480 ml 240 ml 240 ml Labs: Laboratory Tests Test 08/31/21 08:01 08/31/21 12:02 08/31/21 16:59 08/31/21 19:24 Glucose (Fingerstick) 125 mg/dL (70-99) H 140 mg/dL (70-99) H 117 mg/dL (70-99) H 149 mg/dL (70-99) H Current Medications: I have reviewed the current psychotropics carefully including drug interactions. Risk benefit ratio favors no change other than as noted in my dictated progress note. Diagnosis: Problems: (1) Impulse control disorder, unspecified (2) Anxiety disorder, unspecified (3) Major depressive disorder, severe (4) Major depressive disorder, recurrent, severe with psychotic features ESE LEVI MD Sep 01, 2021 07:20
--- NOTE | 2021-09-01 07:40 | PDOC ---
Exam Note: Josef Note: This note is a late entry for 08/30/2021 covers elements not covered in my initial note. Subjective: The patient was seen individually on 08/30/2021, discussed and reviewed the chart with Froylan MODI. The patient slept 4-1/2 hours previous night. Appetite is poor. Overall he has been somewhat incontinent, purposely urinates in his bed and I processed this with him individually. Review of Systems: Chronic pain. Impaired ambulation, in wheelchair and with Shyam lift. No CV, , pulmonary, eye, ENT system symptoms on review. Mental Status Exam: The patient is oriented reasonably. Speech is coherent. Abstraction fair. Computation impaired. Language function intact. Mood and affect still somewhat dysphoric. No suicidal ideation. As I met with him in his room he stated I have to figure myself out. We discussed this at some length and he states he gets irritable and labile in his mood with nursing staff and does not know why he does that and feels badly about it after the fact. Mood still appears somewhat dysphoric. Laboratory Data: Reviewed. Impression: Major depressive disorder with psychotic features. Anxiety disorder unspecified. Plan: Continue current psychotropics. We are gradually increasing the Lamictal. Maintain Cymbalta, trazodone, Wellbutrin, Abilify, and Remeron. Adjust further as clinically indicated. Assessment: Vital Signs/I&O: Vital Signs Date Time Temp Pulse Resp B/P (MAP) Pulse Ox O2 Delivery O2 Flow Rate FiO2 09/01/21 05:48 97.0 103 24 129/84 (99) 93 08/31/21 15:39 Room Air I & O 08/31/21 08/31/21 09/01/21 15:00 23:00 07:00 Intake Total 480 ml 240 ml 240 ml Balance 480 ml 240 ml 240 ml Labs: Laboratory Tests Test 08/31/21 08:01 08/31/21 12:02 08/31/21 16:59 08/31/21 19:24 Glucose (Fingerstick) 125 mg/dL (70-99) H 140 mg/dL (70-99) H 117 mg/dL (70-99) H 149 mg/dL (70-99) H Test 09/01/21 07:28 Glucose (Fingerstick) 149 mg/dL (70-99) H Current Medications: I have reviewed the current psychotropics carefully including drug interactions. Risk benefit ratio favors no change other than as noted in my dictated progress note. Diagnosis: Problems: (1) Impulse control disorder, unspecified (2) Anxiety disorder, unspecified (3) Major depressive disorder, severe (4) Major depressive disorder, recurrent, severe with psychotic features ESE LEVI MD Sep 01, 2021 07:40
--- NOTE | 2021-09-01 07:53 | PDOC ---
Exam Note: Josef Note: This note is a late entry for 08/31/2021 covers elements not covered in my initial note. Subjective: The patient was seen individually on 08/31/2021, discussed and reviewed the chart with Kaye MODI. The patient slept 4 hours previous night. I met with him at some length in his room. He has again thrown the urinal on the floor once. He states he feels much more comfortable today with his left leg having had a dressing change. He is questioning whether his back could be checked to make sure he has no wounds or lesions and nursing staff is addressing this. Review of Systems: Chronic pain. Impaired ambulation. No CV, , pulmonary, eye, ENT system symptoms on review. Mental Status Exam: The patient is oriented reasonably. He is quite verbal, interactive, appreciative of my visit, wanting to shake my hand repeatedly. Speech is coherent. Abstraction fair. Computation impaired. Language function intact. Mood and affect dysphoric, anxious. No suicidal or homicidal ideation. Laboratory Data: Reviewed. Impression: Major depressive disorder with psychotic features. Anxiety disorder unspecified. Plan: No change in current psychotropics. Assessment: Vital Signs/I&O: Vital Signs Date Time Temp Pulse Resp B/P (MAP) Pulse Ox O2 Delivery O2 Flow Rate FiO2 09/01/21 05:48 97.0 103 24 129/84 (99) 93 08/31/21 15:39 Room Air I & O 08/31/21 08/31/21 09/01/21 15:00 23:00 07:00 Intake Total 480 ml 240 ml 240 ml Balance 480 ml 240 ml 240 ml Labs: Laboratory Tests Test 08/31/21 08:01 08/31/21 12:02 08/31/21 16:59 08/31/21 19:24 Glucose (Fingerstick) 125 mg/dL (70-99) H 140 mg/dL (70-99) H 117 mg/dL (70-99) H 149 mg/dL (70-99) H Test 09/01/21 07:28 Glucose (Fingerstick) 149 mg/dL (70-99) H Current Medications: I have reviewed the current psychotropics carefully including drug interactions. Risk benefit ratio favors no change other than as noted in my dictated progress note. Diagnosis: Problems: (1) Impulse control disorder, unspecified (2) Anxiety disorder, unspecified (3) Major depressive disorder, recurrent (4) Personality disorder, unspecified (5) Major depressive disorder, recurrent, severe with psychotic features ESE LEVI MD Sep 01, 2021 07:53
[2021-09-01] MEDS: INSULIN LISPRO 300 UNITS/3 ML VIAL. SQ SCH ×3 (08:00→17:00)
[2021-09-01] MEDS: NEOMY/BACITR/POLYMYXIN OINT PACKET. TP SCH ×2 (08:20→19:34)
[2021-09-01] MEDS: CARVEDILOL 12.5 MG TABLET PO SCH ×2 (08:20→17:26)
[2021-09-01] MEDS: SENNOSIDES/DOCUSATE 8.6/50MG TABLET. PO SCH ×2 (08:21→19:35)
[2021-09-01] MEDS: buPROPion XL 150 MG TAB.ER.24H PO SCH (08:21)
[2021-09-01] MEDS: lamoTRIgine 100 MG TABLET. PO SCH ×2 (08:21→19:34)
[2021-09-01] MEDS: MULTIVITAMIN with MINERAL TABLET. PO SCH (08:21)
[2021-09-01] MEDS: DULoxetine HCL 60 MG CAPSULE.DR PO SCH (08:21)
[2021-09-01] MEDS: ASPIRIN CHEWABLE 81 MG TABLET. PO SCH (08:21)
[2021-09-01] MEDS: CLOPIDOGREL BISULFATE 75 MG TABLET PO SCH (08:21)
[2021-09-01] MEDS: FUROSEMIDE 40 MG TABLET PO SCH (08:22)
[2021-09-01] MEDS: POTASSIUM CHLORIDE 10 MEQ TABLET.ER. PO SCH (08:22)
[2021-09-01] MEDS: DOCUSATE SODIUM 100 MG CAPSULE PO SCH ×2 (08:22→19:35)
[2021-09-01] MEDS: LINAGLIPTIN 5 MG TABLET PO SCH (08:22)
[2021-09-01] MEDS: NYSTATIN TOPICAL POWDER 15GM BOTTLE. TP SCH ×2 (08:23→19:33)
[2021-09-01] MEDS: DULoxetine HCL 30 MG CAPSULE.DR PO SCH (13:41)
[2021-09-01 15:35] VITALS: BP 102/64
[2021-09-01] MEDS: ATORVASTATIN CALCIUM 20 MG TABLET PO SCH (19:34)
[2021-09-01] MEDS: ARIPiprazole 5 MG TABLET PO SCH (19:34)
[2021-09-01] MEDS: traZODone 100 MG TABLET. PO SCH (19:35)
[2021-09-01] MEDS: MIRTAZAPINE 30 MG TABLET PO SCH (19:35)
--- NOTE | 2021-09-01 21:07 | PDOC ---
Exam Note: Josef Note: Please also refer to the separate dictated note~for this date of service dictated separately.~Patient seen individually. Discussed the patient with Nursing staff reviewed the chart.~Reviewed interim history and current functioning. Reviewed vital signs,~Labs/ Radiology~and current medications noted below. Continue current treatment with the changes noted in the dictated addendum note Assessment: Vital Signs/I&O: Vital Signs Date Time Temp Pulse Resp B/P (MAP) Pulse Ox O2 Delivery O2 Flow Rate FiO2 09/01/21 17:26 100 102/64 09/01/21 15:35 98.6 20 93 08/31/21 15:39 Room Air I & O 08/31/21 08/31/21 09/01/21 15:00 23:00 07:00 Intake Total 480 ml 240 ml 240 ml Balance 480 ml 240 ml 240 ml Labs: Laboratory Tests Test 09/01/21 07:28 09/01/21 12:00 09/01/21 17:25 Glucose (Fingerstick) 149 mg/dL (70-99) H 153 mg/dL (70-99) H 166 mg/dL (70-99) H Current Medications: Meds: Laboratory Tests Test 09/01/21 07:28 09/01/21 12:00 09/01/21 17:25 Glucose (Fingerstick) 149 mg/dL 153 mg/dL 166 mg/dL Current Medications Medications (Trade) Dose Ordered Sig/Nicky Route PRN Reason Start Time Stop Time Status Last Admin Dose Admin Acetaminophen (Tylenol) 650 mg PRN Q6HRS PRN PO mild pain/temp >100.3 F 08/05/21 16:30 08/24/21 18:26 Aripiprazole (Abilify) 10 mg DAILY PO 08/06/21 09:00 08/21/21 10:13 DC 08/21/21 08:25 Aspirin (Aspirin Chewable) 81 mg DAILY PO 08/06/21 09:00 09/01/21 08:21 Bupropion HCl (Wellbutrin Xl) 150 mg DAILY PO 08/06/21 09:00 09/01/21 08:21 Clopidogrel Bisulfate (Plavix) 75 mg DAILY PO 08/06/21 09:00 09/01/21 08:21 Docusate Sodium (Colace) 100 mg BID PO 08/05/21 21:00 09/01/21 19:35 Duloxetine HCl (Cymbalta) 30 mg AFTRNOON PO 08/06/21 13:00 09/01/21 13:41 Duloxetine HCl (Cymbalta) 60 mg DAILY PO 08/06/21 09:00 09/01/21 08:21 Furosemide (Lasix) 40 mg DAILY PO 08/06/21 09:00 09/01/21 08:22 Lamotrigine (LaMICtal) 150 mg QHS PO 08/05/21 21:00 08/14/21 10:06 DC 08/13/21 19:55 Linagliptin (Tradjenta) 5 mg DAILY PO 08/06/21 09:00 09/01/21 08:22 Al Hydroxide/Mg Hydroxide (Mylanta Plus Xs) 15 ml PRN AFTMEALHC PRN PO DYSPEPSIA 08/05/21 16:30 08/26/21 12:36 Magnesium Citrate (Citroma) 296 ml PRN 1X PRN PO 2nd choice constipation 08/05/21 16:30 08/12/21 07:19 DC 08/11/21 18:33 Mirtazapine (Remeron) 30 mg HS PO 08/05/21 21:00 09/01/21 19:35 Neomycin/ Polymyxin/ Bacitracin (Triple Antibiotic Ointment) 1 pkt BID TP 08/05/21 21:00 09/01/21 19:34 Nystatin (Nystop) 1 neelima BID TP 08/05/21 21:00 09/01/21 19:33 Olanzapine (ZyPREXA ZYDIS) 2.5 mg PRN Q2HRS PRN PO psychosis/agitation 08/05/21 16:30 08/31/21 22:53 Oxycodone/ Acetaminophen (Percocet 10/325) 1 tab PRN Q6HRS PRN PO MODERATE TO SEVERE PAIN 08/05/21 16:30 08/30/21 23:35 Potassium Chloride (Klor-Con) 30 meq DAILY PO 08/06/21 09:00 09/01/21 08:22 Trazodone HCl (Desyrel) 50 mg PRN QHS PRN PO INSOMNIA 08/05/21 16:30 08/31/21 22:53 Trazodone HCl (Desyrel) 100 mg HS PO 08/05/21 21:00 09/01/21 19:35 Trolamine Salicylate (Myoplex) 1 neelima PRN QID PRN TP muscle pain 08/05/21 16:30 UNV Atorvastatin Calcium (Lipitor) 80 mg QHS PO 08/05/21 21:00 09/01/21 19:34 Carvedilol (Coreg) 37.5 mg BIDWMEALS PO 08/05/21 17:00 09/01/21 17:26 Non-Formulary Medication (Insulin Lispro (Humalog)) 0-5 Units, low dose scale. TIDWMEALS SQ 08/05/21 17:00 UNV Multivitamins/ Calcium (Thera-M Plus) 1 tab DAILY PO 08/06/21 09:00 09/01/21 08:21 Multi-Ingredient Ointment (Analgesic [place]) 1 neelima PRN QID PRN TP MUSCLE PAIN 08/05/21 17:00 Insulin Human Lispro (HumaLOG) 0-5 UNITS TIDWMEALS SQ 08/05/21 17:00 08/10/21 13:08 Dextrose (Dextrose 50%-Water Syringe) 12.5 gm PRN Q15MIN PRN IV SEE COMMENTS 08/05/21 17:00 Magnesium Hydroxide (Milk Of Magnesia) 2,400 mg PRN QHS PRN PO CONSTIPATION 08/08/21 22:15 08/31/21 15:15 Senna/Docusate Sodium (Senna Plus) 1 tab PRN BID PRN PO 2nd choice CONSTIPATION 08/12/21 15:30 08/22/21 13:50 DC 08/20/21 20:29 Lamotrigine (LaMICtal) 200 mg QHS PO 08/14/21 21:00 08/19/21 17:54 DC 08/18/21 20:25 Lamotrigine (LaMICtal) 150 mg QHS PO 08/19/21 21:00 09/01/21 19:34 Lamotrigine (LaMICtal) 100 mg DAILY PO 08/20/21 09:00 08/28/21 09:00 DC 08/28/21 09:14 Aripiprazole (Abilify) 5 mg HS PO 08/22/21 21:00 09/01/21 19:34 Senna/Docusate Sodium (Senna Plus) 1 tab BID PO 08/22/21 21:00 09/01/21 19:35 Lamotrigine (LaMICtal) 150 mg DAILY PO 08/29/21 09:00 09/01/21 08:21 I have reviewed the current psychotropics carefully including drug interactions. Risk benefit ratio favors no change other than as noted in my dictated progress note. Diagnosis: Problems: (1) Impulse control disorder, unspecified (2) Anxiety disorder, unspecified (3) Major depressive disorder, recurrent, severe with psychotic features ESE LEVI MD Sep 01, 2021 21:07
[2021-09-02 06:19] VITALS: BP 125/83
[2021-09-02 06:31] LABS: BASO % 1 % (0-3); EOS # 0.2 x10^3/uL (0.0-0.7); EOS % 3 % (0-3); HEMATOCRIT 36.7 % (39.0-53.0); HEMOGLOBIN 11.8 g/dL (13.0-17.5); LYMPH # 0.7 x10^3/uL (1.0-4.8); LYMPH % 11 % (24-48); MEAN CORPUSCULAR HEMOGLOBIN 31 pg (25-35); MEAN CORPUSCULAR HGB CONC 32 g/dL (31-37); MEAN CORPUSCULAR VOLUME 95 fL (79-100); MONO # 0.6 x10^3/uL (0.0-1.1); MONO % 10 % (0-9); NEUT # 4.9 x10^3uL (1.8-7.7); NEUT % 76 % (31-73); PLATELET COUNT 240 x10^3/uL (140-400); RED BLOOD COUNT 3.85 x10^6/uL (4.30-5.70); RED CELL DISTRIBUTION WIDTH 16.4 % (11.5-14.5); WHITE BLOOD COUNT 6.5 x10^3/uL (4.0-11.0)
[2021-09-02 06:47] LABS: ALBUMIN 2.7 g/dL (3.4-5.0); ALBUMIN/GLOBULIN RATIO 0.7 (1.0-1.7); CALCIUM 8.3 mg/dL (8.5-10.1); CREATININE 1.1 mg/dL (0.7-1.3); GFR 66.8; POTASSIUM 4.1 mmol/L (3.5-5.1); TOTAL BILIRUBIN 0.5 mg/dL (0.2-1.0); TOTAL PROTEIN 6.5 g/dL (6.4-8.2)
[2021-09-02] MEDS: INSULIN LISPRO 300 UNITS/3 ML VIAL. SQ SCH ×3 (07:42→17:00)
[2021-09-02] MEDS: SENNOSIDES/DOCUSATE 8.6/50MG TABLET. PO SCH ×2 (08:13→19:51)
[2021-09-02] MEDS: NYSTATIN TOPICAL POWDER 15GM BOTTLE. TP SCH ×2 (08:13→19:56)
[2021-09-02] MEDS: NEOMY/BACITR/POLYMYXIN OINT PACKET. TP SCH ×2 (08:13→19:56)
[2021-09-02] MEDS: ASPIRIN CHEWABLE 81 MG TABLET. PO SCH (08:13)
[2021-09-02] MEDS: CLOPIDOGREL BISULFATE 75 MG TABLET PO SCH (08:13)
[2021-09-02] MEDS: CARVEDILOL 12.5 MG TABLET PO SCH ×2 (08:13→17:07)
[2021-09-02] MEDS: lamoTRIgine 100 MG TABLET. PO SCH ×2 (08:14→19:56)
[2021-09-02] MEDS: DOCUSATE SODIUM 100 MG CAPSULE PO SCH ×2 (08:14→19:56)
[2021-09-02] MEDS: MULTIVITAMIN with MINERAL TABLET. PO SCH (08:14)
[2021-09-02] MEDS: buPROPion XL 150 MG TAB.ER.24H PO SCH (08:14)
[2021-09-02] MEDS: FUROSEMIDE 40 MG TABLET PO SCH (08:14)
[2021-09-02] MEDS: LINAGLIPTIN 5 MG TABLET PO SCH (08:14)
[2021-09-02] MEDS: DULoxetine HCL 60 MG CAPSULE.DR PO SCH (08:14)
[2021-09-02] MEDS: POTASSIUM CHLORIDE 10 MEQ TABLET.ER. PO SCH (08:15)
[2021-09-02] MEDS: DULoxetine HCL 30 MG CAPSULE.DR PO SCH (12:50)
[2021-09-02 16:08] VITALS: BP 114/78
[2021-09-02] MEDS: MIRTAZAPINE 30 MG TABLET PO SCH (19:49)
[2021-09-02] MEDS: ARIPiprazole 5 MG TABLET PO SCH (19:50)
[2021-09-02] MEDS: ATORVASTATIN CALCIUM 20 MG TABLET PO SCH (19:51)
[2021-09-02] MEDS: traZODone 100 MG TABLET. PO SCH (19:51)
[2021-09-02] MEDS: oxyCODONE/APAP 10/325 1 TAB TABLET PO PRN (20:15)
[2021-09-02] MEDS: traZODone 50 MG TABLET. PO PRN (20:16)
--- NOTE | 2021-09-02 21:33 | PDOC ---
Exam Note: Josef Note: Please also refer to the separate dictated note~for this date of service dictated separately.~Patient seen individually. Discussed the patient with Nursing staff reviewed the chart.~Reviewed interim history and current functioning. Reviewed vital signs,~Labs/ Radiology~and current medications noted below. Continue current treatment with the changes noted in the dictated addendum note Assessment: Vital Signs/I&O: Vital Signs Date Time Temp Pulse Resp B/P (MAP) Pulse Ox O2 Delivery O2 Flow Rate FiO2 09/02/21 17:07 99 114/78 09/02/21 16:08 97.9 18 95 09/02/21 06:19 Room Air I & O 09/01/21 09/01/21 09/02/21 15:00 23:00 07:00 Intake Total 420 ml 420 ml Balance 420 ml 420 ml Labs: Laboratory Tests Test 09/02/21 06:14 09/02/21 07:29 09/02/21 11:57 09/02/21 17:10 White Blood Count 6.5 x10^3/uL (4.0-11.0) Red Blood Count 3.85 x10^6/uL (4.30-5.70) L Hemoglobin 11.8 g/dL (13.0-17.5) L Hematocrit 36.7 % (39.0-53.0) L Mean Corpuscular Volume 95 fL (79-100) Mean Corpuscular Hemoglobin 31 pg (25-35) Mean Corpuscular Hemoglobin Concent 32 g/dL (31-37) Red Cell Distribution Width 16.4 % (11.5-14.5) H Platelet Count 240 x10^3/uL (140-400) Neutrophils (%) (Auto) 76 % (31-73) H Lymphocytes (%) (Auto) 11 % (24-48) L Monocytes (%) (Auto) 10 % (0-9) H Eosinophils (%) (Auto) 3 % (0-3) Basophils (%) (Auto) 1 % (0-3) Neutrophils # (Auto) 4.9 x10^3uL (1.8-7.7) Lymphocytes # (Auto) 0.7 x10^3/uL (1.0-4.8) L Monocytes # (Auto) 0.6 x10^3/uL (0.0-1.1) Eosinophils # (Auto) 0.2 x10^3/uL (0.0-0.7) Basophils # (Auto) 0.0 x10^3/uL (0.0-0.2) Sodium Level 137 mmol/L (136-145) Potassium Level 4.1 mmol/L (3.5-5.1) Chloride Level 104 mmol/L (98-107) Carbon Dioxide Level 27 mmol/L (21-32) Anion Gap 6 (6-14) Blood Urea Nitrogen 18 mg/dL (8-26) Creatinine 1.1 mg/dL (0.7-1.3) Estimated GFR (Cockcroft-Gault) 66.8 BUN/Creatinine Ratio 16 (6-20) Glucose Level 152 mg/dL (70-99) H Calcium Level 8.3 mg/dL (8.5-10.1) L Total Bilirubin 0.5 mg/dL (0.2-1.0) Aspartate Amino Transferase (AST) 18 U/L (15-37) Alanine Aminotransferase (ALT) 23 U/L (16-63) Alkaline Phosphatase 97 U/L (46-116) Total Protein 6.5 g/dL (6.4-8.2) Albumin 2.7 g/dL (3.4-5.0) L Albumin/Globulin Ratio 0.7 (1.0-1.7) L Glucose (Fingerstick) 132 mg/dL (70-99) H 142 mg/dL (70-99) H 122 mg/dL (70-99) H Test 09/02/21 19:13 Glucose (Fingerstick) 139 mg/dL (70-99) H Current Medications: Meds: Laboratory Tests Test 09/02/21 06:14 09/02/21 07:29 09/02/21 11:57 09/02/21 17:10 White Blood Count 6.5 x10^3/uL Red Blood Count 3.85 x10^6/uL Hemoglobin 11.8 g/dL Hematocrit 36.7 % Mean Corpuscular Volume 95 fL Mean Corpuscular Hemoglobin 31 pg Mean Corpuscular Hemoglobin Concent 32 g/dL Red Cell Distribution Width 16.4 % Platelet Count 240 x10^3/uL Neutrophils (%) (Auto) 76 % Lymphocytes (%) (Auto) 11 % Monocytes (%) (Auto) 10 % Eosinophils (%) (Auto) 3 % Basophils (%) (Auto) 1 % Neutrophils # (Auto) 4.9 x10^3uL Lymphocytes # (Auto) 0.7 x10^3/uL Monocytes # (Auto) 0.6 x10^3/uL Eosinophils # (Auto) 0.2 x10^3/uL Basophils # (Auto) 0.0 x10^3/uL Sodium Level 137 mmol/L Potassium Level 4.1 mmol/L Chloride Level 104 mmol/L Carbon Dioxide Level 27 mmol/L Anion Gap 6 Blood Urea Nitrogen 18 mg/dL Creatinine 1.1 mg/dL Estimated GFR (Cockcroft-Gault) 66.8 BUN/Creatinine Ratio 16 Glucose Level 152 mg/dL Calcium Level 8.3 mg/dL Total Bilirubin 0.5 mg/dL Aspartate Amino Transf (AST/SGOT) 18 U/L Alanine Aminotransferase (ALT/SGPT) 23 U/L Alkaline Phosphatase 97 U/L Total Protein 6.5 g/dL Albumin 2.7 g/dL Albumin/Globulin Ratio 0.7 Glucose (Fingerstick) 132 mg/dL 142 mg/dL 122 mg/dL Test 09/02/21 19:13 Glucose (Fingerstick) 139 mg/dL Current Medications Medications (Trade) Dose Ordered Sig/Nicky Route PRN Reason Start Time Stop Time Status Last Admin Dose Admin Acetaminophen (Tylenol) 650 mg PRN Q6HRS PRN PO mild pain/temp >100.3 F 08/05/21 16:30 08/24/21 18:26 Aripiprazole (Abilify) 10 mg DAILY PO 08/06/21 09:00 08/21/21 10:13 DC 08/21/21 08:25 Aspirin (Aspirin Chewable) 81 mg DAILY PO 08/06/21 09:00 09/02/21 08:13 Bupropion HCl (Wellbutrin Xl) 150 mg DAILY PO 08/06/21 09:00 09/02/21 08:14 Clopidogrel Bisulfate (Plavix) 75 mg DAILY PO 08/06/21 09:00 09/02/21 08:13 Docusate Sodium (Colace) 100 mg BID PO 08/05/21 21:00 09/02/21 19:56 Duloxetine HCl (Cymbalta) 30 mg AFTRNOON PO 08/06/21 13:00 09/02/21 12:50 Duloxetine HCl (Cymbalta) 60 mg DAILY PO 08/06/21 09:00 09/02/21 08:14 Furosemide (Lasix) 40 mg DAILY PO 08/06/21 09:00 09/02/21 08:14 Lamotrigine (LaMICtal) 150 mg QHS PO 08/05/21 21:00 08/14/21 10:06 DC 08/13/21 19:55 Linagliptin (Tradjenta) 5 mg DAILY PO 08/06/21 09:00 09/02/21 08:14 Al Hydroxide/Mg Hydroxide (Mylanta Plus Xs) 15 ml PRN AFTMEALHC PRN PO DYSPEPSIA 08/05/21 16:30 08/26/21 12:36 Magnesium Citrate (Citroma) 296 ml PRN 1X PRN PO 2nd choice constipation 08/05/21 16:30 08/12/21 07:19 DC 08/11/21 18:33 Mirtazapine (Remeron) 30 mg HS PO 08/05/21 21:00 09/02/21 19:49 Neomycin/ Polymyxin/ Bacitracin (Triple Antibiotic Ointment) 1 pkt BID TP 08/05/21 21:00 09/02/21 19:56 Nystatin (Nystop) 1 neelima BID TP 08/05/21 21:00 09/02/21 19:56 Olanzapine (ZyPREXA ZYDIS) 2.5 mg PRN Q2HRS PRN PO psychosis/agitation 08/05/21 16:30 08/31/21 22:53 Oxycodone/ Acetaminophen (Percocet 10/325) 1 tab PRN Q6HRS PRN PO MODERATE TO SEVERE PAIN 08/05/21 16:30 09/02/21 20:15 Potassium Chloride (Klor-Con) 30 meq DAILY PO 08/06/21 09:00 09/02/21 08:15 Trazodone HCl (Desyrel) 50 mg PRN QHS PRN PO INSOMNIA 08/05/21 16:30 09/02/21 20:16 Trazodone HCl (Desyrel) 100 mg HS PO 08/05/21 21:00 09/02/21 19:51 Trolamine Salicylate (Myoplex) 1 neelima PRN QID PRN TP muscle pain 08/05/21 16:30 UNV Atorvastatin Calcium (Lipitor) 80 mg QHS PO 08/05/21 21:00 09/02/21 19:51 Carvedilol (Coreg) 37.5 mg BIDWMEALS PO 08/05/21 17:00 09/02/21 17:07 Non-Formulary Medication (Insulin Lispro (Humalog)) 0-5 Units, low dose scale. TIDWMEALS SQ 08/05/21 17:00 UNV Multivitamins/ Calcium (Thera-M Plus) 1 tab DAILY PO 08/06/21 09:00 09/02/21 08:14 Multi-Ingredient Ointment (Analgesic [place]) 1 neelima PRN QID PRN TP MUSCLE PAIN 08/05/21 17:00 Insulin Human Lispro (HumaLOG) 0-5 UNITS TIDWMEALS SQ 08/05/21 17:00 08/10/21 13:08 Dextrose (Dextrose 50%-Water Syringe) 12.5 gm PRN Q15MIN PRN IV SEE COMMENTS 08/05/21 17:00 Magnesium Hydroxide (Milk Of Magnesia) 2,400 mg PRN QHS PRN PO CONSTIPATION 08/08/21 22:15 08/31/21 15:15 Senna/Docusate Sodium (Senna Plus) 1 tab PRN BID PRN PO 2nd choice CONSTIPATION 08/12/21 15:30 08/22/21 13:50 DC 08/20/21 20:29 Lamotrigine (LaMICtal) 200 mg QHS PO 08/14/21 21:00 08/19/21 17:54 DC 08/18/21 20:25 Lamotrigine (LaMICtal) 150 mg QHS PO 08/19/21 21:00 09/02/21 19:56 Lamotrigine (LaMICtal) 100 mg DAILY PO 08/20/21 09:00 08/28/21 09:00 DC 08/28/21 09:14 Aripiprazole (Abilify) 5 mg HS PO 08/22/21 21:00 09/02/21 19:50 Senna/Docusate Sodium (Senna Plus) 1 tab BID PO 08/22/21 21:00 09/02/21 19:51 Lamotrigine (LaMICtal) 150 mg DAILY PO 08/29/21 09:00 09/02/21 08:14 I have reviewed the current psychotropics carefully including drug interactions. Risk benefit ratio favors no change other than as noted in my dictated progress note. Diagnosis: Problems: (1) Impulse control disorder, unspecified (2) Anxiety disorder, unspecified (3) Major depressive disorder, recurrent (4) Major depressive disorder, recurrent, severe with psychotic features ESE LEVI MD Sep 02, 2021 21:33
[2021-09-03 06:05] VITALS: BP 120/72
--- NOTE | 2021-09-03 06:45 | PDOC ---
Exam Note: Josef Note: This note is a late entry for 09/01/2021 covers elements not covered in my initial note. Subjective: The patient was seen individually on 09/01/2021, discussed and reviewed the chart with Kaye MODI. I met with him in the dayroom where he was watching television. Per nursing report, he appeared somewhat more depressed and was somewhat unkempt and unshaven this evening. No suicidal or homicidal ideation. Review of Systems: Ambulation impaired in wheelchair but he was pleased that Wound Care had attended to him and has stabilized his foot drop. No CV, , p ulmonary, eye, ENT system symptoms on review. Mental Status Exam: The patient is reasonably oriented. Speech is coherent. Abstraction fair. Computation impaired. Language function intact. He was not very verbal, somewhat depressed. No suicidal ideation. No clear psychotic symptoms. Laboratory Data: Reviewed. Impression: Major depressive disorder with psychotic features. Anxiety disorder unspecified. Plan: Continue current psychotropics mentioned in my initial note. We have increased the Lamictal for his mood swings. We will continue to do that as clinically indicated. Maintain Cymbalta, trazodone, Wellbutrin and the lowered Abilify at 5 mg a day, Remeron and Zyprexa p.r.n. Assessment: Vital Signs/I&O: Vital Signs Date Time Temp Pulse Resp B/P (MAP) Pulse Ox O2 Delivery O2 Flow Rate FiO2 09/03/21 06:05 97.2 97 16 120/72 (88) 95 09/02/21 06:19 Room Air I & O 09/02/21 09/02/21 09/03/21 15:00 23:00 07:00 Intake Total 360 ml 0 ml 240 ml Balance 360 ml 0 ml 240 ml Labs: Laboratory Tests Test 09/02/21 07:29 09/02/21 11:57 09/02/21 17:10 09/02/21 19:13 Glucose (Fingerstick) 132 mg/dL (70-99) H 142 mg/dL (70-99) H 122 mg/dL (70-99) H 139 mg/dL (70-99) H Current Medications: I have reviewed the current psychotropics carefully including drug interactions. Risk benefit ratio favors no change other than as noted in my dictated progress note. Diagnosis: Problems: (1) Impulse control disorder, unspecified (2) Anxiety disorder, unspecified (3) Major depressive disorder, recurrent (4) Major depressive disorder, recurrent, severe with psychotic features ESE LEVI MD Sep 03, 2021 06:45
--- NOTE | 2021-09-03 06:58 | PDOC ---
Exam Note: Josef Note: This note is a late entry for 09/02/2021 covers elements not covered in my initial note. Subjective: The patient was seen individually on 09/02/2021, discussed and reviewed the chart with Susi MODI. The patient slept 7-3/4 hours previous night. He has been somewhat helpless, appears depressed per nursing staff, ignoring staff, trying to put his feet over the rails and is a fall risk. I met with him in the corridor and shortly after my visit he had slipped himself out of the wheelchair but no injury noted. Review of Systems: Ambulation impaired in wheelchair. No CV, , pulmonary, eye, ENT system symptoms on review. Mental Status Exam: The patient is reasonably oriented. Speech has some latency, coherent. Abstraction fair. Computation impaired. Language function intact. Mood is dysphoric, anxious. No suicidal or homicidal ideation. Laboratory Data: Reviewed. Impression: Major depressive disorder with psychotic features. Anxiety disorder unspecified. Plan: Continue current psychotropics mentioned in my initial note. Assessment: Vital Signs/I&O: Vital Signs Date Time Temp Pulse Resp B/P (MAP) Pulse Ox O2 Delivery O2 Flow Rate FiO2 09/03/21 06:05 97.2 97 16 120/72 (88) 95 09/02/21 06:19 Room Air I & O 0 09/02/21 09/02/21 09/03/21 15:00 23:00 07:00 Intake Total 360 ml 0 ml 240 ml Balance 360 ml 0 ml 240 ml Labs: Laboratory Tests Test 09/02/21 07:29 09/02/21 11:57 09/02/21 17:10 09/02/21 19:13 Glucose (Fingerstick) 132 mg/dL (70-99) H 142 mg/dL (70-99) H 122 mg/dL (70-99) H 139 mg/dL (70-99) H Current Medications: I have reviewed the current psychotropics carefully including drug interactions. Risk benefit ratio favors no change other than as noted in my dictated progress note. Diagnosis: Problems: (1) Impulse control disorder, unspecified (2) Anxiety disorder, unspecified (3) Major depressive disorder, recurrent (4) Major depressive disorder, severe (5) Major depressive disorder, recurrent, severe with psychotic features ESE LEVI MD Sep 03, 2021 06:58
[2021-09-03] MEDS: INSULIN LISPRO 300 UNITS/3 ML VIAL. SQ SCH ×3 (08:00→17:00)
[2021-09-03] MEDS: FUROSEMIDE 40 MG TABLET PO SCH (08:22)
[2021-09-03] MEDS: DULoxetine HCL 60 MG CAPSULE.DR PO SCH (08:22)
[2021-09-03] MEDS: lamoTRIgine 100 MG TABLET. PO SCH ×2 (08:23→20:21)
[2021-09-03] MEDS: DOCUSATE SODIUM 100 MG CAPSULE PO SCH ×2 (08:23→20:20)
[2021-09-03] MEDS: POTASSIUM CHLORIDE 10 MEQ TABLET.ER. PO SCH (08:24)
[2021-09-03] MEDS: CARVEDILOL 12.5 MG TABLET PO SCH ×2 (08:25→17:06)
[2021-09-03] MEDS: MULTIVITAMIN with MINERAL TABLET. PO SCH (08:25)
[2021-09-03] MEDS: SENNOSIDES/DOCUSATE 8.6/50MG TABLET. PO SCH ×2 (08:25→20:20)
[2021-09-03] MEDS: ASPIRIN CHEWABLE 81 MG TABLET. PO SCH (08:26)
[2021-09-03] MEDS: LINAGLIPTIN 5 MG TABLET PO SCH (08:26)
[2021-09-03] MEDS: buPROPion XL 150 MG TAB.ER.24H PO SCH (08:26)
[2021-09-03] MEDS: CLOPIDOGREL BISULFATE 75 MG TABLET PO SCH (08:26)
[2021-09-03] MEDS: NEOMY/BACITR/POLYMYXIN OINT PACKET. TP SCH ×2 (08:26→20:21)
[2021-09-03] MEDS: NYSTATIN TOPICAL POWDER 15GM BOTTLE. TP SCH ×2 (08:28→20:21)
[2021-09-03] MEDS: ACETAMINOPHEN 325 MG TABLET PO PRN (08:46)
[2021-09-03] MEDS: DULoxetine HCL 30 MG CAPSULE.DR PO SCH (11:56)
[2021-09-03 15:21] VITALS: BP 112/64
[2021-09-03] MEDS: ARIPiprazole 5 MG TABLET PO SCH (20:20)
[2021-09-03] MEDS: traZODone 100 MG TABLET. PO SCH (20:21)
[2021-09-03] MEDS: ATORVASTATIN CALCIUM 20 MG TABLET PO SCH (20:21)
[2021-09-03] MEDS: MIRTAZAPINE 30 MG TABLET PO SCH (20:21)
[2021-09-03] MEDS: oxyCODONE/APAP 10/325 1 TAB TABLET PO PRN (20:23)
[2021-09-03] MEDS: traZODone 50 MG TABLET. PO PRN (20:23)
--- NOTE | 2021-09-03 21:24 | PDOC ---
Exam Note: Josef Note: Please also refer to the separate dictated note~for this date of service dictated separately.~Patient seen individually. Discussed the patient with Nursing staff reviewed the chart.~Reviewed interim history and current functioning. Reviewed vital signs,~Labs/ Radiology~and current medications noted below. Continue current treatment with the changes noted in the dictated addendum note Assessment: Vital Signs/I&O: Vital Signs Date Time Temp Pulse Resp B/P (MAP) Pulse Ox O2 Delivery O2 Flow Rate FiO2 09/03/21 17:06 109 112/64 09/03/21 15:21 97.2 22 95 Room Air I & O 09/02/21 09/02/21 09/03/21 15:00 23:00 07:00 Intake Total 360 ml 0 ml 240 ml Balance 360 ml 0 ml 240 ml Labs: Laboratory Tests Test 09/03/21 07:48 09/03/21 11:38 09/03/21 17:09 09/03/21 19:10 Glucose (Fingerstick) 120 mg/dL (70-99) H 118 mg/dL (70-99) H 127 mg/dL (70-99) H 139 mg/dL (70-99) H Current Medications: Meds: Laboratory Tests Test 09/03/21 07:48 09/03/21 11:38 09/03/21 17:09 09/03/21 19:10 Glucose (Fingerstick) 120 mg/dL 118 mg/dL 127 mg/dL 139 mg/dL Current Medications Medications (Trade) Dose Ordered Sig/Nicky Route PRN Reason Start Time Stop Time Status Last Admin Dose Admin Acetaminophen (Tylenol) 650 mg PRN Q6HRS PRN PO mild pain/temp >100.3 F 08/05/21 16:30 09/03/21 08:46 Aripiprazole (Abilify) 10 mg DAILY PO 08/06/21 09:00 08/21/21 10:13 DC 08/21/21 08:25 Aspirin (Aspirin Chewable) 81 mg DAILY PO 08/06/21 09:00 09/03/21 08:26 Bupropion HCl (Wellbutrin Xl) 150 mg DAILY PO 08/06/21 09:00 09/03/21 08:26 Clopidogrel Bisulfate (Plavix) 75 mg DAILY PO 08/06/21 09:00 09/03/21 08:26 Docusate Sodium (Colace) 100 mg BID PO 08/05/21 21:00 09/03/21 20:20 Duloxetine HCl (Cymbalta) 30 mg AFTRNOON PO 08/06/21 13:00 09/03/21 11:56 Duloxetine HCl (Cymbalta) 60 mg DAILY PO 08/06/21 09:00 09/03/21 08:22 Furosemide (Lasix) 40 mg DAILY PO 08/06/21 09:00 09/03/21 08:22 Lamotrigine (LaMICtal) 150 mg QHS PO 08/05/21 21:00 08/14/21 10:06 DC 08/13/21 19:55 Linagliptin (Tradjenta) 5 mg DAILY PO 08/06/21 09:00 09/03/21 08:26 Al Hydroxide/Mg Hydroxide (Mylanta Plus Xs) 15 ml PRN AFTMEALHC PRN PO DYSPEPSIA 08/05/21 16:30 08/26/21 12:36 Magnesium Citrate (Citroma) 296 ml PRN 1X PRN PO 2nd choice constipation 08/05/21 16:30 08/12/21 07:19 DC 08/11/21 18:33 Mirtazapine (Remeron) 30 mg HS PO 08/05/21 21:00 09/03/21 20:21 Neomycin/ Polymyxin/ Bacitracin (Triple Antibiotic Ointment) 1 pkt BID TP 08/05/21 21:00 09/03/21 20:21 Nystatin (Nystop) 1 neelima BID TP 08/05/21 21:00 09/03/21 20:21 Olanzapine (ZyPREXA ZYDIS) 2.5 mg PRN Q2HRS PRN PO psychosis/agitation 08/05/21 16:30 09/03/21 20:23 Oxycodone/ Acetaminophen (Percocet 10/325) 1 tab PRN Q6HRS PRN PO MODERATE TO SEVERE PAIN 08/05/21 16:30 09/03/21 20:23 Potassium Chloride (Klor-Con) 30 meq DAILY PO 08/06/21 09:00 09/03/21 08:24 Trazodone HCl (Desyrel) 50 mg PRN QHS PRN PO INSOMNIA 08/05/21 16:30 09/03/21 20:23 Trazodone HCl (Desyrel) 100 mg HS PO 08/05/21 21:00 09/03/21 20:21 Trolamine Salicylate (Myoplex) 1 neelima PRN QID PRN TP muscle pain 08/05/21 16:30 UNV Atorvastatin Calcium (Lipitor) 80 mg QHS PO 08/05/21 21:00 09/03/21 20:21 Carvedilol (Coreg) 37.5 mg BIDWMEALS PO 08/05/21 17:00 09/03/21 17:06 Non-Formulary Medication (Insulin Lispro (Humalog)) 0-5 Units, low dose scale. TIDWMEALS SQ 08/05/21 17:00 UNV Multivitamins/ Calcium (Thera-M Plus) 1 tab DAILY PO 08/06/21 09:00 09/03/21 08:25 Multi-Ingredient Ointment (Analgesic [place]) 1 neelima PRN QID PRN TP MUSCLE PAIN 08/05/21 17:00 Insulin Human Lispro (HumaLOG) 0-5 UNITS TIDWMEALS SQ 08/05/21 17:00 08/10/21 13:08 Dextrose (Dextrose 50%-Water Syringe) 12.5 gm PRN Q15MIN PRN IV SEE COMMENTS 08/05/21 17:00 Magnesium Hydroxide (Milk Of Magnesia) 2,400 mg PRN QHS PRN PO CONSTIPATION 08/08/21 22:15 08/31/21 15:15 Senna/Docusate Sodium (Senna Plus) 1 tab PRN BID PRN PO 2nd choice CONSTIPATION 08/12/21 15:30 08/22/21 13:50 DC 08/20/21 20:29 Lamotrigine (LaMICtal) 200 mg QHS PO 08/14/21 21:00 08/19/21 17:54 DC 08/18/21 20:25 Lamotrigine (LaMICtal) 150 mg QHS PO 08/19/21 21:00 09/03/21 20:21 Lamotrigine (LaMICtal) 100 mg DAILY PO 08/20/21 09:00 08/28/21 09:00 DC 08/28/21 09:14 Aripiprazole (Abilify) 5 mg HS PO 08/22/21 21:00 09/03/21 20:20 Senna/Docusate Sodium (Senna Plus) 1 tab BID PO 08/22/21 21:00 09/03/21 20:20 Lamotrigine (LaMICtal) 150 mg DAILY PO 08/29/21 09:00 09/03/21 08:23 I have reviewed the current psychotropics carefully including drug interactions. Risk benefit ratio favors no change other than as noted in my dictated progress note. Diagnosis: Problems: (1) Impulse control disorder, unspecified (2) Anxiety disorder, unspecified (3) Major depressive disorder, severe (4) Major depressive disorder, recurrent, severe with psychotic features ESE LEVI MD Sep 03, 2021 21:23
[2021-09-04 06:02] VITALS: BP 137/83
[2021-09-04] MEDS: INSULIN LISPRO 300 UNITS/3 ML VIAL. SQ SCH ×3 (08:00→17:00)
[2021-09-04] MEDS: LINAGLIPTIN 5 MG TABLET PO SCH (08:23)
[2021-09-04] MEDS: POTASSIUM CHLORIDE 10 MEQ TABLET.ER. PO SCH (08:23)
[2021-09-04] MEDS: buPROPion XL 150 MG TAB.ER.24H PO SCH (08:23)
[2021-09-04] MEDS: DOCUSATE SODIUM 100 MG CAPSULE PO SCH ×2 (08:23→20:46)
[2021-09-04] MEDS: CARVEDILOL 12.5 MG TABLET PO SCH ×2 (08:23→17:49)
[2021-09-04] MEDS: MULTIVITAMIN with MINERAL TABLET. PO SCH (08:23)
[2021-09-04] MEDS: DULoxetine HCL 60 MG CAPSULE.DR PO SCH (08:23)
[2021-09-04] MEDS: NEOMY/BACITR/POLYMYXIN OINT PACKET. TP SCH ×2 (08:23→20:46)
[2021-09-04] MEDS: ASPIRIN CHEWABLE 81 MG TABLET. PO SCH (08:23)
[2021-09-04] MEDS: CLOPIDOGREL BISULFATE 75 MG TABLET PO SCH (08:24)
[2021-09-04] MEDS: lamoTRIgine 100 MG TABLET. PO SCH ×2 (08:24→20:45)
[2021-09-04] MEDS: FUROSEMIDE 40 MG TABLET PO SCH (08:25)
[2021-09-04] MEDS: SENNOSIDES/DOCUSATE 8.6/50MG TABLET. PO SCH ×2 (08:25→20:45)
[2021-09-04] MEDS: NYSTATIN TOPICAL POWDER 15GM BOTTLE. TP SCH ×2 (08:26→20:46)
--- NOTE | 2021-09-04 11:33 | TX PLAN ---
Interdisciplinary Tx Plan Admission Information Aug 05, 2021 at 16:20 Legal Status (on Admission): Voluntary DPOA/Guardian Name: Son-Inocencio Maravilla (not enacted at this time as pt is a self sign) Contact Other Contact Name: Luanne Other Contact Verified Code Status: Full Code Allergies: Coded Allergies: No Known Drug Allergies (Unverified , 04/25/21) Diagnoses Primary Diagnosis: 1. Major depressive disorder, recurrent, moderate. 2. Generalized anxiety disorder. Reasons for Admission: Relation/conflict, Agitated, Depressed, Sig. Change Appetite, Anxiety/Panic, Suicidal ideation, Poor impulse control Problem in Patient's Words: I am terribly depressed and anxious. 08/07/21-Pt reports being very sad. Additional Admission Comments: Per intake pt is depressed, anxious, not eating to tank blood sugar to kill himself, put himself on the floor seven times over a weekend, verbally aggressive toward staff, SI, and texted his son expressing plan to end his life. 08/07/21-Pt reports being very sad. He has spent time in his bed as he has wounds on his legs that require special care. Some of the concern is if he is scratching himself intentionally to create the wounds or if the wounds are created by his skin sticking to his mattress and during transitions using the guerita lift. Problems Active Problems: Depression, anxiety, poor appetite, poor impulse control Inactive Problems: Suicidal ideation Pt Strengths/Limitations Ability for [place]: Poor Cognitive Functioning/Ability: Good Communication Skills/Ability: Good Financial Resources: Good Insight/Judgement: Poor Intellectual Ability: Good Physical Health: Poor Social Skills: Fair Stability in Family: Fair Stability in School/Work: Fair Verbal Skills: Good Discharge Criteria Discharge Criteria: Able meet basic life need, No need for close observ., Adequate arrangements @DC, Adequate self-care, Verbal commit med comply, Improved behavior, Improved mood/thought Other Discharge Comments: None at this time. Preliminary Discharge Plan Preliminary DC Plan: Current Living Arrange. Other Arrangements: Pt facility is looking for an alternate placement, but will accept him back Special Precautions Special Precautions: Other Fall Risk: High Other Precautions (specify): Pt has put himself on the floor. He offers little help during transfers. Initial D/C Plan Pt to return to [facility] should alternative placement not be found. Identified Discharge Needs: None at this time. Currently Utilized Resources Currently Utilized Resources/P: PCP-Dr. Daisy Sanchez Psychiatrist-Dr. Ashley Pcihardo, [employer] DPOA (not currently enacted)-Son-Inocencio Maravilla Referrals Community Resources: None at this time. Identified Problems/Hx/Goals Objectives/Short-Term Goals Short Term Goals in Patient's: Need help feeling less depressed and anxious. Interventions/Frequency Staff Interventions/Frequency&: Psychiatry to assess pt three times per week for medication management. Nursing to assess behaviors, monitor medications, and complete 15 minute checks daily. Social work to see pt at least two times weekly to aid in return to placement. Activities to encourage pt to participate in group activities daily. 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 Education: Graduated from [employer] in [place], [place]. Pt reports having taken some classes at the [facility]. Community Follow-up PCP Community Provider/Family Inpu: Pt is a self sign and participated in the development of his own treatment plan. Treatment Plan Explained Patient/Health And Wellness Coordinator had this treatment plan explained to him/her as indicated by the signature below and has been given the opportunity to ask questions and make suggestions: Date: Patient/Health And Wellness Coordinator Signature: Status Update Update Pt eats between 25-30% of his meals and has been getting 6.5 hours of sleep at night. Pt continues to nap throughout the day and, therefore, gets additional sleep. Pt continues to demonstrate attention seeking behavior and overall depressive affect with poor self esteem. Pt continues to receive wound care and has been compliant with this treatment. Pt take medications whole. Pt has engaged with [facility] and will accept listening to the [facility]. Wellbutrin XL will be increased to 300mg daily. [facility] is on an admissions hold, but is awaiting a response to find out how long the hold will be. [facility] has, also, left message for Liam that pt could return to them while awaiting admissions decision from [place]. [facility] will continue to follow. EVE CORONA Sep 04, 2021 11:33
[2021-09-04] MEDS: DULoxetine HCL 30 MG CAPSULE.DR PO SCH (13:22)
[2021-09-04 15:50] VITALS: BP 125/80
[2021-09-04] MEDS: MAGNESIUM HYDROXIDE 2,400 MG/30 ML ORAL.SUSP. PO PRN (20:45)
[2021-09-04] MEDS: traZODone 100 MG TABLET. PO SCH (20:45)
[2021-09-04] MEDS: ARIPiprazole 5 MG TABLET PO SCH (20:45)
[2021-09-04] MEDS: ATORVASTATIN CALCIUM 20 MG TABLET PO SCH (20:46)
[2021-09-04] MEDS: MIRTAZAPINE 30 MG TABLET PO SCH (20:46)
--- NOTE | 2021-09-04 21:25 | PDOC ---
Exam Note: Josef Note: Please also refer to the separate dictated note~for this date of service dictated separately.~Patient seen individually. Discussed the patient with Nursing staff reviewed the chart.~Reviewed interim history and current functioning. Reviewed vital signs,~Labs/ Radiology~and current medications noted below. Continue current treatment with the changes noted in the dictated addendum note Assessment: Vital Signs/I&O: Vital Signs Date Time Temp Pulse Resp B/P (MAP) Pulse Ox O2 Delivery O2 Flow Rate FiO2 09/04/21 17:49 98 125/80 09/04/21 15:50 97.4 22 96 09/03/21 15:21 Room Air I & O 09/03/21 09/03/21 09/04/21 14:59 22:59 06:59 Intake Total 360 ml 360 ml Balance 360 ml 360 ml Labs: Laboratory Tests Test 09/04/21 07:50 09/04/21 17:46 09/04/21 18:59 Glucose (Fingerstick) 117 mg/dL (70-99) H 128 mg/dL (70-99) H 128 mg/dL (70-99) H Current Medications: Meds: Laboratory Tests Test 09/04/21 07:50 09/04/21 17:46 09/04/21 18:59 Glucose (Fingerstick) 117 mg/dL 128 mg/dL 128 mg/dL Current Medications Medications (Trade) Dose Ordered Sig/Nicky Route PRN Reason Start Time Stop Time Status Last Admin Dose Admin Acetaminophen (Tylenol) 650 mg PRN Q6HRS PRN PO mild pain/temp >100.3 F 08/05/21 16:30 09/03/21 08:46 Aripiprazole (Abilify) 10 mg DAILY PO 08/06/21 09:00 08/21/21 10:13 DC 08/21/21 08:25 Aspirin (Aspirin Chewable) 81 mg DAILY PO 08/06/21 09:00 09/04/21 08:23 Bupropion HCl (Wellbutrin Xl) 150 mg DAILY PO 08/06/21 09:00 09/04/21 10:46 DC 09/04/21 08:23 Clopidogrel Bisulfate (Plavix) 75 mg DAILY PO 08/06/21 09:00 09/04/21 08:24 Docusate Sodium (Colace) 100 mg BID PO 08/05/21 21:00 09/04/21 20:46 Duloxetine HCl (Cymbalta) 30 mg AFTRNOON PO 08/06/21 13:00 09/04/21 13:22 Duloxetine HCl (Cymbalta) 60 mg DAILY PO 08/06/21 09:00 09/04/21 08:23 Furosemide (Lasix) 40 mg DAILY PO 08/06/21 09:00 09/04/21 08:25 Lamotrigine (LaMICtal) 150 mg QHS PO 08/05/21 21:00 08/14/21 10:06 DC 08/13/21 19:55 Linagliptin (Tradjenta) 5 mg DAILY PO 08/06/21 09:00 09/04/21 08:23 Al Hydroxide/Mg Hydroxide (Mylanta Plus Xs) 15 ml PRN AFTMEALHC PRN PO DYSPEPSIA 08/05/21 16:30 08/26/21 12:36 Magnesium Citrate (Citroma) 296 ml PRN 1X PRN PO 2nd choice constipation 08/05/21 16:30 08/12/21 07:19 DC 08/11/21 18:33 Mirtazapine (Remeron) 30 mg HS PO 08/05/21 21:00 09/04/21 20:46 Neomycin/ Polymyxin/ Bacitracin (Triple Antibiotic Ointment) 1 pkt BID TP 08/05/21 21:00 09/04/21 20:46 Nystatin (Nystop) 1 neelima BID TP 08/05/21 21:00 09/04/21 20:46 Olanzapine (ZyPREXA ZYDIS) 2.5 mg PRN Q2HRS PRN PO psychosis/agitation 08/05/21 16:30 09/04/21 20:47 Oxycodone/ Acetaminophen (Percocet 10/325) 1 tab PRN Q6HRS PRN PO MODERATE TO SEVERE PAIN 08/05/21 16:30 09/03/21 20:23 Potassium Chloride (Klor-Con) 30 meq DAILY PO 08/06/21 09:00 09/04/21 08:23 Trazodone HCl (Desyrel) 50 mg PRN QHS PRN PO INSOMNIA 08/05/21 16:30 09/03/21 20:23 Trazodone HCl (Desyrel) 100 mg HS PO 08/05/21 21:00 09/04/21 20:45 Trolamine Salicylate (Myoplex) 1 neelima PRN QID PRN TP muscle pain 08/05/21 16:30 UNV Atorvastatin Calcium (Lipitor) 80 mg QHS PO 08/05/21 21:00 09/04/21 20:46 Carvedilol (Coreg) 37.5 mg BIDWMEALS PO 08/05/21 17:00 09/04/21 17:49 Non-Formulary Medication (Insulin Lispro (Humalog)) 0-5 Units, low dose scale. TIDWMEALS SQ 08/05/21 17:00 UNV Multivitamins/ Calcium (Thera-M Plus) 1 tab DAILY PO 08/06/21 09:00 09/04/21 08:23 Multi-Ingredient Ointment (Analgesic [place]) 1 neelima PRN QID PRN TP MUSCLE PAIN 08/05/21 17:00 Insulin Human Lispro (HumaLOG) 0-5 UNITS TIDWMEALS SQ 08/05/21 17:00 08/10/21 13:08 Dextrose (Dextrose 50%-Water Syringe) 12.5 gm PRN Q15MIN PRN IV SEE COMMENTS 08/05/21 17:00 Magnesium Hydroxide (Milk Of Magnesia) 2,400 mg PRN QHS PRN PO CONSTIPATION 08/08/21 22:15 09/04/21 20:45 Senna/Docusate Sodium (Senna Plus) 1 tab PRN BID PRN PO 2nd choice CONSTIPATION 08/12/21 15:30 08/22/21 13:50 DC 08/20/21 20:29 Lamotrigine (LaMICtal) 200 mg QHS PO 08/14/21 21:00 08/19/21 17:54 DC 08/18/21 20:25 Lamotrigine (LaMICtal) 150 mg QHS PO 08/19/21 21:00 09/04/21 20:45 Lamotrigine (LaMICtal) 100 mg DAILY PO 08/20/21 09:00 08/28/21 09:00 DC 08/28/21 09:14 Aripiprazole (Abilify) 5 mg HS PO 08/22/21 21:00 09/04/21 20:45 Senna/Docusate Sodium (Senna Plus) 1 tab BID PO 08/22/21 21:00 09/04/21 20:45 Lamotrigine (LaMICtal) 150 mg DAILY PO 08/29/21 09:00 09/04/21 08:24 Bupropion HCl (Wellbutrin Xl) 300 mg DAILY PO 09/05/21 09:00 I have reviewed the current psychotropics carefully including drug interactions. Risk benefit ratio favors no change other than as noted in my dictated progress note. Diagnosis: Problems: (1) Impulse control disorder, unspecified (2) Anxiety disorder, unspecified (3) Major depressive disorder, recurrent (4) Major depressive disorder, severe (5) Major depressive disorder, recurrent, severe with psychotic features ESE LEVI MD Sep 04, 2021 21:25
[2021-09-05 06:14] VITALS: BP 117/74
--- NOTE | 2021-09-05 07:04 | PDOC ---
Exam Note: Josef Note: This note is a late entry for 09/03/2021 covers elements not covered in my initial note. Subjective: The patient was seen individually on 09/03/2021, discussed and reviewed the chart with Susi MODI. The patient slept 7-1/4 hours previous night. He was playing [place] per nursing staff previous night. He has been yelling and quite labile in his mood during the day today and he urinated on the floor. Wound consult his following his wounds. Review of Systems: Ambulation impaired in wheelchair. No CV, , pulmonary, eye, ENT system symptoms on review. Mental Status Exam: The patient is reasonably oriented. Speech coherent. Abstraction fair. Computation impaired. Language function intact. Mood is dysphoric, anxious. No suicidal or homicidal ideation. Laboratory Data: Reviewed. Impression: Major depressive disorder with psychotic features. Anxiety disorder unspecified. Plan: Continue current psychotropics mentioned in my initial note. Assessment: Vital Signs/I&O: Vital Signs Date Time Temp Pulse Resp B/P (MAP) Pulse Ox O2 Delivery O2 Flow Rate FiO2 09/05/21 06:14 97.6 110 22 117/74 (88) 95 09/03/21 15:21 Room Air I & O 09/04/21 09/04/21 09/05/21 15:00 23:00 07:00 Intake Total 60 ml 480 ml Balance 60 ml 480 ml Labs: Laboratory Tests Test 09/04/21 07:50 09/04/21 17:46 09/04/21 18:59 Glucose (Fingerstick) 117 mg/dL (70-99) H 128 mg/dL (70-99) H 128 mg/dL (70-99) H Current Medications: I have reviewed the current psychotropics carefully including drug interactions. Risk benefit ratio favors no change other than as noted in my dictated progress note. Diagnosis: Problems: (1) Impulse control disorder, unspecified (2) Anxiety disorder, unspecified (3) Major depressive disorder, severe (4) Major depressive disorder, recurrent, severe with psychotic features ESE LEVI MD Sep 05, 2021 07:04
[2021-09-05] MEDS: INSULIN LISPRO 300 UNITS/3 ML VIAL. SQ SCH ×3 (08:00→16:43)
[2021-09-05] MEDS: POTASSIUM CHLORIDE 10 MEQ TABLET.ER. PO SCH (08:27)
[2021-09-05] MEDS: CARVEDILOL 12.5 MG TABLET PO SCH ×2 (08:28→16:28)
[2021-09-05] MEDS: DOCUSATE SODIUM 100 MG CAPSULE PO SCH ×2 (08:29→20:31)
[2021-09-05] MEDS: buPROPion XL 300 MG TAB.ER.24H. PO SCH (08:29)
[2021-09-05] MEDS: ASPIRIN CHEWABLE 81 MG TABLET. PO SCH (08:29)
[2021-09-05] MEDS: lamoTRIgine 100 MG TABLET. PO SCH ×2 (08:30→20:32)
[2021-09-05] MEDS: DULoxetine HCL 60 MG CAPSULE.DR PO SCH (08:30)
[2021-09-05] MEDS: FUROSEMIDE 40 MG TABLET PO SCH (08:31)
[2021-09-05] MEDS: SENNOSIDES/DOCUSATE 8.6/50MG TABLET. PO SCH ×2 (08:31→20:31)
[2021-09-05] MEDS: NEOMY/BACITR/POLYMYXIN OINT PACKET. TP SCH ×2 (08:31→20:32)
[2021-09-05] MEDS: MULTIVITAMIN with MINERAL TABLET. PO SCH (08:31)
[2021-09-05] MEDS: CLOPIDOGREL BISULFATE 75 MG TABLET PO SCH (08:31)
[2021-09-05] MEDS: LINAGLIPTIN 5 MG TABLET PO SCH (08:31)
[2021-09-05] MEDS: NYSTATIN TOPICAL POWDER 15GM BOTTLE. TP SCH ×2 (08:32→20:33)
[2021-09-05] MEDS: DULoxetine HCL 30 MG CAPSULE.DR PO SCH (12:01)
[2021-09-05 15:28] VITALS: BP 108/72
[2021-09-05] MEDS: MIRTAZAPINE 30 MG TABLET PO SCH (20:31)
[2021-09-05] MEDS: ARIPiprazole 5 MG TABLET PO SCH (20:31)
[2021-09-05] MEDS: ATORVASTATIN CALCIUM 20 MG TABLET PO SCH (20:31)
[2021-09-05] MEDS: traZODone 100 MG TABLET. PO SCH (20:32)
--- NOTE | 2021-09-05 21:13 | PDOC ---
Exam Note: Josef Note: Please also refer to the separate dictated note~for this date of service dictated separately.~Patient seen individually. Discussed the patient with Nursing staff reviewed the chart.~Reviewed interim history and current functioning. Reviewed vital signs,~Labs/ Radiology~and current medications noted below. Continue current treatment with the changes noted in the dictated addendum note Assessment: Vital Signs/I&O: Vital Signs Date Time Temp Pulse Resp B/P (MAP) Pulse Ox O2 Delivery O2 Flow Rate FiO2 09/05/21 16:28 101 108/72 09/05/21 15:28 97.1 14 94 Room Air I & O 09/04/21 09/04/21 09/05/21 15:00 23:00 07:00 Intake Total 60 ml 480 ml Balance 60 ml 480 ml Labs: Laboratory Tests Test 09/05/21 07:45 09/05/21 12:04 09/05/21 16:42 09/05/21 18:59 Glucose (Fingerstick) 151 mg/dL (70-99) H 145 mg/dL (70-99) H 138 mg/dL (70-99) H 127 mg/dL (70-99) H Current Medications: Meds: Laboratory Tests Test 09/05/21 07:45 09/05/21 12:04 09/05/21 16:42 09/05/21 18:59 Glucose (Fingerstick) 151 mg/dL 145 mg/dL 138 mg/dL 127 mg/dL Current Medications Medications (Trade) Dose Ordered Sig/Nicky Route PRN Reason Start Time Stop Time Status Last Admin Dose Admin Acetaminophen (Tylenol) 650 mg PRN Q6HRS PRN PO mild pain/temp >100.3 F 08/05/21 16:30 09/03/21 08:46 Aripiprazole (Abilify) 10 mg DAILY PO 08/06/21 09:00 08/21/21 10:13 DC 08/21/21 08:25 Aspirin (Aspirin Chewable) 81 mg DAILY PO 08/06/21 09:00 09/05/21 08:29 Bupropion HCl (Wellbutrin Xl) 150 mg DAILY PO 08/06/21 09:00 09/04/21 10:46 DC 09/04/21 08:23 Clopidogrel Bisulfate (Plavix) 75 mg DAILY PO 08/06/21 09:00 09/05/21 08:31 Docusate Sodium (Colace) 100 mg BID PO 08/05/21 21:00 09/05/21 20:31 Duloxetine HCl (Cymbalta) 30 mg AFTRNOON PO 08/06/21 13:00 09/05/21 12:01 Duloxetine HCl (Cymbalta) 60 mg DAILY PO 08/06/21 09:00 09/05/21 08:30 Furosemide (Lasix) 40 mg DAILY PO 08/06/21 09:00 09/05/21 08:31 Lamotrigine (LaMICtal) 150 mg QHS PO 08/05/21 21:00 08/14/21 10:06 DC 08/13/21 19:55 Linagliptin (Tradjenta) 5 mg DAILY PO 08/06/21 09:00 09/05/21 08:31 Al Hydroxide/Mg Hydroxide (Mylanta Plus Xs) 15 ml PRN AFTMEALHC PRN PO DYSPEPSIA 08/05/21 16:30 08/26/21 12:36 Magnesium Citrate (Citroma) 296 ml PRN 1X PRN PO 2nd choice constipation 08/05/21 16:30 08/12/21 07:19 DC 08/11/21 18:33 Mirtazapine (Remeron) 30 mg HS PO 08/05/21 21:00 09/05/21 20:31 Neomycin/ Polymyxin/ Bacitracin (Triple Antibiotic Ointment) 1 pkt BID TP 08/05/21 21:00 09/05/21 20:32 Nystatin (Nystop) 1 neelima BID TP 08/05/21 21:00 09/05/21 20:33 Olanzapine (ZyPREXA ZYDIS) 2.5 mg PRN Q2HRS PRN PO psychosis/agitation 08/05/21 16:30 09/04/21 20:47 Oxycodone/ Acetaminophen (Percocet 10/325) 1 tab PRN Q6HRS PRN PO MODERATE TO SEVERE PAIN 08/05/21 16:30 09/03/21 20:23 Potassium Chloride (Klor-Con) 30 meq DAILY PO 08/06/21 09:00 09/05/21 08:27 Trazodone HCl (Desyrel) 50 mg PRN QHS PRN PO INSOMNIA 08/05/21 16:30 09/03/21 20:23 Trazodone HCl (Desyrel) 100 mg HS PO 08/05/21 21:00 09/05/21 20:32 Trolamine Salicylate (Myoplex) 1 neelima PRN QID PRN TP muscle pain 08/05/21 16:30 UNV Atorvastatin Calcium (Lipitor) 80 mg QHS PO 08/05/21 21:00 09/05/21 20:31 Carvedilol (Coreg) 37.5 mg BIDWMEALS PO 08/05/21 17:00 09/05/21 16:28 Non-Formulary Medication (Insulin Lispro (Humalog)) 0-5 Units, low dose scale. TIDWMEALS SQ 08/05/21 17:00 UNV Multivitamins/ Calcium (Thera-M Plus) 1 tab DAILY PO 08/06/21 09:00 09/05/21 08:31 Multi-Ingredient Ointment (Analgesic [place]) 1 neelima PRN QID PRN TP MUSCLE PAIN 08/05/21 17:00 Insulin Human Lispro (HumaLOG) 0-5 UNITS TIDWMEALS SQ 08/05/21 17:00 08/10/21 13:08 Dextrose (Dextrose 50%-Water Syringe) 12.5 gm PRN Q15MIN PRN IV SEE COMMENTS 08/05/21 17:00 Magnesium Hydroxide (Milk Of Magnesia) 2,400 mg PRN QHS PRN PO CONSTIPATION 08/08/21 22:15 09/04/21 20:45 Senna/Docusate Sodium (Senna Plus) 1 tab PRN BID PRN PO 2nd choice CONSTIPATION 08/12/21 15:30 08/22/21 13:50 DC 08/20/21 20:29 Lamotrigine (LaMICtal) 200 mg QHS PO 08/14/21 21:00 08/19/21 17:54 DC 08/18/21 20:25 Lamotrigine (LaMICtal) 150 mg QHS PO 08/19/21 21:00 09/05/21 20:32 Lamotrigine (LaMICtal) 100 mg DAILY PO 08/20/21 09:00 08/28/21 09:00 DC 08/28/21 09:14 Aripiprazole (Abilify) 5 mg HS PO 08/22/21 21:00 09/05/21 20:31 Senna/Docusate Sodium (Senna Plus) 1 tab BID PO 08/22/21 21:00 09/05/21 20:31 Lamotrigine (LaMICtal) 150 mg DAILY PO 08/29/21 09:00 09/05/21 08:30 Bupropion HCl (Wellbutrin Xl) 300 mg DAILY PO 09/05/21 09:00 09/05/21 08:29 Current Medications Medications (Trade) Dose Ordered Sig/Nicky Route PRN Reason Start Time Stop Time Status Last Admin Dose Admin Bupropion HCl (Wellbutrin Xl) 300 mg DAILY PO 09/05/21 09:00 09/05/21 08:29 I have reviewed the current psychotropics carefully including drug interactions. Risk benefit ratio favors no change other than as noted in my dictated progress note. Diagnosis: Problems: (1) Impulse control disorder, unspecified (2) Anxiety disorder, unspecified (3) Major depressive disorder, severe (4) Major depressive disorder, recurrent, severe with psychotic features ESE LEVI MD Sep 05, 2021 21:13
[2021-09-06] MEDS: oxyCODONE/APAP 10/325 1 TAB TABLET PO PRN ×2 (00:42→20:08)
[2021-09-06 06:11] VITALS: BP 117/82
[2021-09-06] MEDS: INSULIN LISPRO 300 UNITS/3 ML VIAL. SQ SCH ×3 (08:00→17:00)
[2021-09-06] MEDS: NEOMY/BACITR/POLYMYXIN OINT PACKET. TP SCH ×2 (09:00→20:06)
[2021-09-06] MEDS: MULTIVITAMIN with MINERAL TABLET. PO SCH (09:02)
[2021-09-06] MEDS: NYSTATIN TOPICAL POWDER 15GM BOTTLE. TP SCH ×2 (09:02→20:06)
[2021-09-06] MEDS: ASPIRIN CHEWABLE 81 MG TABLET. PO SCH (09:02)
[2021-09-06] MEDS: DOCUSATE SODIUM 100 MG CAPSULE PO SCH ×2 (09:03→20:05)
[2021-09-06] MEDS: DULoxetine HCL 60 MG CAPSULE.DR PO SCH (09:03)
[2021-09-06] MEDS: POTASSIUM CHLORIDE 10 MEQ TABLET.ER. PO SCH (09:03)
[2021-09-06] MEDS: lamoTRIgine 100 MG TABLET. PO SCH ×2 (09:03→20:06)
[2021-09-06] MEDS: FUROSEMIDE 40 MG TABLET PO SCH (09:04)
[2021-09-06] MEDS: CARVEDILOL 12.5 MG TABLET PO SCH ×2 (09:04→17:00)
[2021-09-06] MEDS: LINAGLIPTIN 5 MG TABLET PO SCH (09:04)
[2021-09-06] MEDS: buPROPion XL 300 MG TAB.ER.24H. PO SCH (09:04)
[2021-09-06] MEDS: CLOPIDOGREL BISULFATE 75 MG TABLET PO SCH (09:04)
[2021-09-06] MEDS: SENNOSIDES/DOCUSATE 8.6/50MG TABLET. PO SCH ×2 (09:04→20:05)
[2021-09-06] MEDS: DULoxetine HCL 30 MG CAPSULE.DR PO SCH (13:00)
[2021-09-06 15:35] VITALS: BP 118/78
[2021-09-06] MEDS: ARIPiprazole 5 MG TABLET PO SCH (20:05)
[2021-09-06] MEDS: MIRTAZAPINE 30 MG TABLET PO SCH (20:05)
[2021-09-06] MEDS: traZODone 100 MG TABLET. PO SCH (20:05)
[2021-09-06] MEDS: ATORVASTATIN CALCIUM 20 MG TABLET PO SCH (20:05)
--- NOTE | 2021-09-06 21:48 | PDOC ---
Exam Note: Josef Note: Please also refer to the separate dictated note~for this date of service dictated separately.~Patient seen individually. Discussed the patient with Nursing staff reviewed the chart.~Reviewed interim history and current functioning. Reviewed vital signs,~Labs/ Radiology~and current medications noted below. Continue current treatment with the changes noted in the dictated addendum note Assessment: Vital Signs/I&O: Vital Signs Date Time Temp Pulse Resp B/P (MAP) Pulse Ox O2 Delivery O2 Flow Rate FiO2 09/06/21 17:00 98 118/78 09/06/21 15:35 97.4 22 95 09/06/21 06:11 Room Air I & O 09/05/21 09/05/21 09/06/21 15:00 23:00 07:00 Intake Total 420 ml 360 ml Balance 420 ml 360 ml Labs: Laboratory Tests Test 09/06/21 07:31 09/06/21 11:34 09/06/21 16:58 09/06/21 19:14 Glucose (Fingerstick) 141 mg/dL (70-99) H 123 mg/dL (70-99) H 138 mg/dL (70-99) H 160 mg/dL (70-99) H Current Medications: Meds: Laboratory Tests Test 09/06/21 07:31 09/06/21 11:34 09/06/21 16:58 09/06/21 19:14 Glucose (Fingerstick) 141 mg/dL 123 mg/dL 138 mg/dL 160 mg/dL Current Medications Medications (Trade) Dose Ordered Sig/Nicky Route PRN Reason Start Time Stop Time Status Last Admin Dose Admin Acetaminophen (Tylenol) 650 mg PRN Q6HRS PRN PO mild pain/temp >100.3 F 08/05/21 16:30 09/03/21 08:46 Aripiprazole (Abilify) 10 mg DAILY PO 08/06/21 09:00 08/21/21 10:13 DC 08/21/21 08:25 Aspirin (Aspirin Chewable) 81 mg DAILY PO 08/06/21 09:00 09/06/21 09:02 Bupropion HCl (Wellbutrin Xl) 150 mg DAILY PO 08/06/21 09:00 09/04/21 10:46 DC 09/04/21 08:23 Clopidogrel Bisulfate (Plavix) 75 mg DAILY PO 08/06/21 09:00 09/06/21 09:04 Docusate Sodium (Colace) 100 mg BID PO 08/05/21 21:00 09/06/21 20:05 Duloxetine HCl (Cymbalta) 30 mg AFTRNOON PO 08/06/21 13:00 09/06/21 13:00 Duloxetine HCl (Cymbalta) 60 mg DAILY PO 08/06/21 09:00 09/06/21 09:03 Furosemide (Lasix) 40 mg DAILY PO 08/06/21 09:00 09/06/21 09:04 Lamotrigine (LaMICtal) 150 mg QHS PO 08/05/21 21:00 08/14/21 10:06 DC 08/13/21 19:55 Linagliptin (Tradjenta) 5 mg DAILY PO 08/06/21 09:00 09/06/21 09:04 Al Hydroxide/Mg Hydroxide (Mylanta Plus Xs) 15 ml PRN AFTMEALHC PRN PO DYSPEPSIA 08/05/21 16:30 08/26/21 12:36 Magnesium Citrate (Citroma) 296 ml PRN 1X PRN PO 2nd choice constipation 08/05/21 16:30 08/12/21 07:19 DC 08/11/21 18:33 Mirtazapine (Remeron) 30 mg HS PO 08/05/21 21:00 09/06/21 20:05 Neomycin/ Polymyxin/ Bacitracin (Triple Antibiotic Ointment) 1 pkt BID TP 08/05/21 21:00 09/06/21 20:06 Nystatin (Nystop) 1 neelima BID TP 08/05/21 21:00 09/06/21 20:06 Olanzapine (ZyPREXA ZYDIS) 2.5 mg PRN Q2HRS PRN PO psychosis/agitation 08/05/21 16:30 09/04/21 20:47 Oxycodone/ Acetaminophen (Percocet 10/325) 1 tab PRN Q6HRS PRN PO MODERATE TO SEVERE PAIN 08/05/21 16:30 09/06/21 20:08 Potassium Chloride (Klor-Con) 30 meq DAILY PO 08/06/21 09:00 09/06/21 09:03 Trazodone HCl (Desyrel) 50 mg PRN QHS PRN PO INSOMNIA 08/05/21 16:30 09/03/21 20:23 Trazodone HCl (Desyrel) 100 mg HS PO 08/05/21 21:00 09/06/21 20:05 Trolamine Salicylate (Myoplex) 1 neelima PRN QID PRN TP muscle pain 08/05/21 16:30 UNV Atorvastatin Calcium (Lipitor) 80 mg QHS PO 08/05/21 21:00 09/06/21 20:05 Carvedilol (Coreg) 37.5 mg BIDWMEALS PO 08/05/21 17:00 09/06/21 17:00 Non-Formulary Medication (Insulin Lispro (Humalog)) 0-5 Units, low dose scale. TIDWMEALS SQ 08/05/21 17:00 UNV Multivitamins/ Calcium (Thera-M Plus) 1 tab DAILY PO 08/06/21 09:00 09/06/21 09:02 Multi-Ingredient Ointment (Analgesic [place]) 1 neelima PRN QID PRN TP MUSCLE PAIN 08/05/21 17:00 Insulin Human Lispro (HumaLOG) 0-5 UNITS TIDWMEALS SQ 08/05/21 17:00 08/10/21 13:08 Dextrose (Dextrose 50%-Water Syringe) 12.5 gm PRN Q15MIN PRN IV SEE COMMENTS 08/05/21 17:00 Magnesium Hydroxide (Milk Of Magnesia) 2,400 mg PRN QHS PRN PO CONSTIPATION 08/08/21 22:15 09/04/21 20:45 Senna/Docusate Sodium (Senna Plus) 1 tab PRN BID PRN PO 2nd choice CONSTIPATION 08/12/21 15:30 08/22/21 13:50 DC 08/20/21 20:29 Lamotrigine (LaMICtal) 200 mg QHS PO 08/14/21 21:00 08/19/21 17:54 DC 08/18/21 20:25 Lamotrigine (LaMICtal) 150 mg QHS PO 08/19/21 21:00 09/06/21 20:06 Lamotrigine (LaMICtal) 100 mg DAILY PO 08/20/21 09:00 08/28/21 09:00 DC 08/28/21 09:14 Aripiprazole (Abilify) 5 mg HS PO 08/22/21 21:00 09/06/21 20:05 Senna/Docusate Sodium (Senna Plus) 1 tab BID PO 08/22/21 21:00 09/06/21 20:05 Lamotrigine (LaMICtal) 150 mg DAILY PO 08/29/21 09:00 09/06/21 09:03 Bupropion HCl (Wellbutrin Xl) 300 mg DAILY PO 09/05/21 09:00 09/06/21 09:04 I have reviewed the current psychotropics carefully including drug interactions. Risk benefit ratio favors no change other than as noted in my dictated progress note. Diagnosis: Problems: (1) Impulse control disorder, unspecified (2) Anxiety disorder, unspecified (3) Major depressive disorder, severe (4) Major depressive disorder, recurrent, severe with psychotic features ESE LEVI MD Sep 06, 2021 21:48
[2021-09-07] MEDS: traZODone 50 MG TABLET. PO PRN (01:14)
[2021-09-07 05:45] VITALS: BP 116/77
[2021-09-07] MEDS: INSULIN LISPRO 300 UNITS/3 ML VIAL. SQ SCH ×3 (07:50→17:00)
[2021-09-07] MEDS: LINAGLIPTIN 5 MG TABLET PO SCH (08:59)
[2021-09-07] MEDS: CARVEDILOL 12.5 MG TABLET PO SCH ×2 (08:59→17:30)
[2021-09-07] MEDS: DULoxetine HCL 60 MG CAPSULE.DR PO SCH (08:59)
[2021-09-07] MEDS: lamoTRIgine 100 MG TABLET. PO SCH ×2 (08:59→20:11)
[2021-09-07] MEDS: SENNOSIDES/DOCUSATE 8.6/50MG TABLET. PO SCH ×2 (08:59→20:10)
[2021-09-07] MEDS: buPROPion XL 300 MG TAB.ER.24H. PO SCH (08:59)
[2021-09-07] MEDS: CLOPIDOGREL BISULFATE 75 MG TABLET PO SCH (08:59)
[2021-09-07] MEDS: MULTIVITAMIN with MINERAL TABLET. PO SCH (08:59)
[2021-09-07] MEDS: DOCUSATE SODIUM 100 MG CAPSULE PO SCH ×2 (08:59→20:10)
[2021-09-07] MEDS: ASPIRIN CHEWABLE 81 MG TABLET. PO SCH (08:59)
[2021-09-07] MEDS: POTASSIUM CHLORIDE 10 MEQ TABLET.ER. PO SCH (09:00)
[2021-09-07] MEDS: FUROSEMIDE 40 MG TABLET PO SCH (09:00)
[2021-09-07] MEDS: NEOMY/BACITR/POLYMYXIN OINT PACKET. TP SCH ×2 (09:00→20:11)
[2021-09-07] MEDS: NYSTATIN TOPICAL POWDER 15GM BOTTLE. TP SCH ×2 (09:00→20:11)
[2021-09-07] MEDS: DULoxetine HCL 30 MG CAPSULE.DR PO SCH (12:37)
[2021-09-07 15:22] VITALS: BP 140/90
[2021-09-07] MEDS: MIRTAZAPINE 30 MG TABLET PO SCH (20:10)
[2021-09-07] MEDS: ATORVASTATIN CALCIUM 20 MG TABLET PO SCH (20:10)
[2021-09-07] MEDS: traZODone 100 MG TABLET. PO SCH (20:10)
[2021-09-07] MEDS: ARIPiprazole 5 MG TABLET PO SCH (20:10)
[2021-09-07] MEDS: oxyCODONE/APAP 10/325 1 TAB TABLET PO PRN (20:12)
--- NOTE | 2021-09-07 22:13 | PDOC ---
Exam Note: Josef Note: Please also refer to the separate dictated note~for this date of service dictated separately.~Patient seen individually. Discussed the patient with Nursing staff reviewed the chart.~Reviewed interim history and current functioning. Reviewed vital signs,~Labs/ Radiology~and current medications noted below. Continue current treatment with the changes noted in the dictated addendum note Assessment: Vital Signs/I&O: Vital Signs Date Time Temp Pulse Resp B/P (MAP) Pulse Ox O2 Delivery O2 Flow Rate FiO2 09/07/21 17:30 99 140/90 09/07/21 15:22 97.1 22 100 09/06/21 06:11 Room Air I & O 09/06/21 09/06/21 09/07/21 15:00 23:00 07:00 Intake Total 720 ml 600 ml Balance 720 ml 600 ml Labs: Laboratory Tests Test 09/07/21 07:38 09/07/21 11:42 09/07/21 17:04 09/07/21 19:37 Glucose (Fingerstick) 126 mg/dL (70-99) H 114 mg/dL (70-99) H 134 mg/dL (70-99) H 137 mg/dL (70-99) H Current Medications: Meds: Laboratory Tests Test 09/07/21 07:38 09/07/21 11:42 09/07/21 17:04 09/07/21 19:37 Glucose (Fingerstick) 126 mg/dL 114 mg/dL 134 mg/dL 137 mg/dL Current Medications Medications (Trade) Dose Ordered Sig/Nicky Route PRN Reason Start Time Stop Time Status Last Admin Dose Admin Acetaminophen (Tylenol) 650 mg PRN Q6HRS PRN PO mild pain/temp >100.3 F 08/05/21 16:30 09/03/21 08:46 Aripiprazole (Abilify) 10 mg DAILY PO 08/06/21 09:00 08/21/21 10:13 DC 08/21/21 08:25 Aspirin (Aspirin Chewable) 81 mg DAILY PO 08/06/21 09:00 09/07/21 08:59 Bupropion HCl (Wellbutrin Xl) 150 mg DAILY PO 08/06/21 09:00 09/04/21 10:46 DC 09/04/21 08:23 Clopidogrel Bisulfate (Plavix) 75 mg DAILY PO 08/06/21 09:00 09/07/21 08:59 Docusate Sodium (Colace) 100 mg BID PO 08/05/21 21:00 09/07/21 20:10 Duloxetine HCl (Cymbalta) 30 mg AFTRNOON PO 08/06/21 13:00 09/07/21 12:37 Duloxetine HCl (Cymbalta) 60 mg DAILY PO 08/06/21 09:00 09/07/21 08:59 Furosemide (Lasix) 40 mg DAILY PO 08/06/21 09:00 09/07/21 09:00 Lamotrigine (LaMICtal) 150 mg QHS PO 08/05/21 21:00 08/14/21 10:06 DC 08/13/21 19:55 Linagliptin (Tradjenta) 5 mg DAILY PO 08/06/21 09:00 09/07/21 08:59 Al Hydroxide/Mg Hydroxide (Mylanta Plus Xs) 15 ml PRN AFTMEALHC PRN PO DYSPEPSIA 08/05/21 16:30 08/26/21 12:36 Magnesium Citrate (Citroma) 296 ml PRN 1X PRN PO 2nd choice constipation 08/05/21 16:30 08/12/21 07:19 DC 08/11/21 18:33 Mirtazapine (Remeron) 30 mg HS PO 08/05/21 21:00 09/07/21 20:10 Neomycin/ Polymyxin/ Bacitracin (Triple Antibiotic Ointment) 1 pkt BID TP 08/05/21 21:00 09/07/21 20:11 Nystatin (Nystop) 1 neelima BID TP 08/05/21 21:00 09/07/21 20:11 Olanzapine (ZyPREXA ZYDIS) 2.5 mg PRN Q2HRS PRN PO psychosis/agitation 08/05/21 16:30 09/07/21 01:14 Oxycodone/ Acetaminophen (Percocet 10/325) 1 tab PRN Q6HRS PRN PO MODERATE TO SEVERE PAIN 08/05/21 16:30 09/07/21 20:12 Potassium Chloride (Klor-Con) 30 meq DAILY PO 08/06/21 09:00 09/07/21 09:00 Trazodone HCl (Desyrel) 50 mg PRN QHS PRN PO INSOMNIA 08/05/21 16:30 09/07/21 01:14 Trazodone HCl (Desyrel) 100 mg HS PO 08/05/21 21:00 09/07/21 20:10 Trolamine Salicylate (Myoplex) 1 neelima PRN QID PRN TP muscle pain 08/05/21 16:30 UNV Atorvastatin Calcium (Lipitor) 80 mg QHS PO 08/05/21 21:00 09/07/21 20:10 Carvedilol (Coreg) 37.5 mg BIDWMEALS PO 08/05/21 17:00 09/07/21 17:30 Non-Formulary Medication (Insulin Lispro (Humalog)) 0-5 Units, low dose scale. TIDWMEALS SQ 08/05/21 17:00 UNV Multivitamins/ Calcium (Thera-M Plus) 1 tab DAILY PO 08/06/21 09:00 09/07/21 08:59 Multi-Ingredient Ointment (Analgesic [place]) 1 neelima PRN QID PRN TP MUSCLE PAIN 08/05/21 17:00 Insulin Human Lispro (HumaLOG) 0-5 UNITS TIDWMEALS SQ 08/05/21 17:00 08/10/21 13:08 Dextrose (Dextrose 50%-Water Syringe) 12.5 gm PRN Q15MIN PRN IV SEE COMMENTS 08/05/21 17:00 Magnesium Hydroxide (Milk Of Magnesia) 2,400 mg PRN QHS PRN PO CONSTIPATION 08/08/21 22:15 09/04/21 20:45 Senna/Docusate Sodium (Senna Plus) 1 tab PRN BID PRN PO 2nd choice CONSTIPATION 08/12/21 15:30 08/22/21 13:50 DC 08/20/21 20:29 Lamotrigine (LaMICtal) 200 mg QHS PO 08/14/21 21:00 08/19/21 17:54 DC 08/18/21 20:25 Lamotrigine (LaMICtal) 150 mg QHS PO 08/19/21 21:00 09/07/21 20:11 Lamotrigine (LaMICtal) 100 mg DAILY PO 08/20/21 09:00 08/28/21 09:00 DC 08/28/21 09:14 Aripiprazole (Abilify) 5 mg HS PO 08/22/21 21:00 09/07/21 20:10 Senna/Docusate Sodium (Senna Plus) 1 tab BID PO 08/22/21 21:00 09/07/21 20:10 Lamotrigine (LaMICtal) 150 mg DAILY PO 08/29/21 09:00 09/07/21 08:59 Bupropion HCl (Wellbutrin Xl) 300 mg DAILY PO 09/05/21 09:00 09/07/21 08:59 I have reviewed the current psychotropics carefully including drug interactions. Risk benefit ratio favors no change other than as noted in my dictated progress note. Diagnosis: Problems: (1) Impulse control disorder, unspecified (2) Anxiety disorder, unspecified (3) Major depressive disorder, severe (4) Major depressive disorder, recurrent, severe with psychotic features ESE LEVI MD Sep 07, 2021 22:13
[2021-09-08 06:05] VITALS: BP 145/96
[2021-09-08 06:35] LABS: BASO % 1 % (0-3); EOS # 0.2 x10^3/uL (0.0-0.7); EOS % 3 % (0-3); HEMOGLOBIN 12.1 g/dL (13.0-17.5); LYMPH # 0.9 x10^3/uL (1.0-4.8); LYMPH % 11 % (24-48); MEAN CORPUSCULAR HEMOGLOBIN 31 pg (25-35); MEAN CORPUSCULAR HGB CONC 32 g/dL (31-37); MEAN CORPUSCULAR VOLUME 96 fL (79-100); MONO # 0.7 x10^3/uL (0.0-1.1); MONO % 9 % (0-9); NEUT # 5.8 x10^3uL (1.8-7.7); NEUT % 76 % (31-73); PLATELET COUNT 268 x10^3/uL (140-400); RED BLOOD COUNT 3.96 x10^6/uL (4.30-5.70); RED CELL DISTRIBUTION WIDTH 16.7 % (11.5-14.5); WHITE BLOOD COUNT 7.6 x10^3/uL (4.0-11.0)
[2021-09-08 06:50] LABS: ALBUMIN 2.8 g/dL (3.4-5.0); ALBUMIN/GLOBULIN RATIO 0.7 (1.0-1.7); CALCIUM 8.8 mg/dL (8.5-10.1); CREATININE 1.3 mg/dL (0.7-1.3); GFR 55.1; POTASSIUM 4.1 mmol/L (3.5-5.1); TOTAL BILIRUBIN 0.5 mg/dL (0.2-1.0); TOTAL PROTEIN 6.8 g/dL (6.4-8.2)
[2021-09-08] MEDS: INSULIN LISPRO 300 UNITS/3 ML VIAL. SQ SCH ×3 (07:24→17:00)
--- NOTE | 2021-09-08 08:38 | PDOC ---
Exam Note: Josef Note: This note is a late entry for 09/04/2021 covers elements not covered in my initial note. Subjective: The patient was reviewed at treatment team meeting in the morning on 09/04/2021 with Carmen Gutierrez, Chen Natarajan (psychiatric social worker supervisor), Kera, activity therapy, and Madiha MODI, discussed and reviewed the chart. Discussed and reviewed his diagnoses, progress, placement options at length. The patient reportedly appears depressed. Appetite 25%. Sleeping 6 hours average. He was sleeping off and on during the day. He takes meds crushed in pudding. He attended one group in the past one week. Review of Systems: Ambulation impaired, in wheelchair. No CV, , pulmonary, eye, ENT system symptoms on review. Mental Status Exam: The patient is awake, alert, and oriented. Speech has some latency, coherent, very appreciative of my visit. Abstraction fair. Computation impaired. Language function intact. Mood and affect depressed. No suicidal or homicidal ideation. Appetite is poor. Laboratory Data: Reviewed. Impression: Major depressive disorder with psychotic features. Anxiety disorder unspecified. Plan: We had lengthy discussion about further interventions. He may be feeling good reading on Dr. Josh Rudolph or listening to audio on [employer] which he has. Maintain rest of the psychotropics unchanged. Increase Wellbutrin XL from 150 mg a day to 300 mg a day. Rest psychotropics unchanged including Cymbalta 60 mg a day. Assessment: Vital Signs/I&O: Vital Signs Date Time Temp Pulse Resp B/P (MAP) Pulse Ox O2 Delivery O2 Flow Rate FiO2 09/08/21 06:05 97.4 98 19 145/96 (112) 97 09/06/21 06:11 Room Air I & O 09/07/21 09/07/21 09/08/21 15:00 23:00 07:00 Intake Total 610 ml 300 ml Balance 610 ml 300 ml Labs: Laboratory Tests Test 09/07/21 11:42 09/07/21 17:04 09/07/21 19:37 09/08/21 06:18 Glucose (Fingerstick) 114 mg/dL (70-99) H 134 mg/dL (70-99) H 137 mg/dL (70-99) H White Blood Count 7.6 x10^3/uL (4.0-11.0) Red Blood Count 3.96 x10^6/uL (4.30-5.70) L Hemoglobin 12.1 g/dL (13.0-17.5) L Hematocrit 38.0 % (39.0-53.0) L Mean Corpuscular Volume 96 fL (79-100) Mean Corpuscular Hemoglobin 31 pg (25-35) Mean Corpuscular Hemoglobin Concent 32 g/dL (31-37) Red Cell Distribution Width 16.7 % (11.5-14.5) H Platelet Count 268 x10^3/uL (140-400) Neutrophils (%) (Auto) 76 % (31-73) H Lymphocytes (%) (Auto) 11 % (24-48) L Monocytes (%) (Auto) 9 % (0-9) Eosinophils (%) (Auto) 3 % (0-3) Basophils (%) (Auto) 1 % (0-3) Neutrophils # (Auto) 5.8 x10^3uL (1.8-7.7) Lymphocytes # (Auto) 0.9 x10^3/uL (1.0-4.8) L Monocytes # (Auto) 0.7 x10^3/uL (0.0-1.1) Eosinophils # (Auto) 0.2 x10^3/uL (0.0-0.7) Basophils # (Auto) 0.0 x10^3/uL (0.0-0.2) Sodium Level 139 mmol/L (136-145) Potassium Level 4.1 mmol/L (3.5-5.1) Chloride Level 105 mmol/L (98-107) Carbon Dioxide Level 25 mmol/L (21-32) Anion Gap 9 (6-14) Blood Urea Nitrogen 32 mg/dL (8-26) H Creatinine 1.3 mg/dL (0.7-1.3) Estimated GFR (Cockcroft-Gault) 55.1 BUN/Creatinine Ratio 25 (6-20) H Glucose Level 142 mg/dL (70-99) H Calcium Level 8.8 mg/dL (8.5-10.1) Total Bilirubin 0.5 mg/dL (0.2-1.0) Aspartate Amino Transferase (AST) 31 U/L (15-37) Alanine Aminotransferase (ALT) 33 U/L (16-63) Alkaline Phosphatase 100 U/L (46-116) Total Protein 6.8 g/dL (6.4-8.2) Albumin 2.8 g/dL (3.4-5.0) L Albumin/Globulin Ratio 0.7 (1.0-1.7) L Test 09/08/21 07:17 Glucose (Fingerstick) 135 mg/dL (70-99) H Current Medications: I have reviewed the current psychotropics carefully including drug interactions. Risk benefit ratio favors no change other than as noted in my dictated progress note. Diagnosis: Problems: (1) Impulse control disorder, unspecified (2) Anxiety disorder, unspecified (3) Major depressive disorder, severe (4) Personality disorder, unspecified (5) Major depressive disorder, recurrent, severe with psychotic features ESE LEVI MD Sep 08, 2021 08:38
[2021-09-08] MEDS: ASPIRIN CHEWABLE 81 MG TABLET. PO SCH (08:44)
[2021-09-08] MEDS: LINAGLIPTIN 5 MG TABLET PO SCH (08:44)
[2021-09-08] MEDS: DULoxetine HCL 60 MG CAPSULE.DR PO SCH (08:44)
[2021-09-08] MEDS: NEOMY/BACITR/POLYMYXIN OINT PACKET. TP SCH ×2 (08:44→19:58)
[2021-09-08] MEDS: FUROSEMIDE 40 MG TABLET PO SCH (08:44)
[2021-09-08] MEDS: buPROPion XL 300 MG TAB.ER.24H. PO SCH (08:44)
[2021-09-08] MEDS: SENNOSIDES/DOCUSATE 8.6/50MG TABLET. PO SCH ×2 (08:45→19:58)
[2021-09-08] MEDS: lamoTRIgine 100 MG TABLET. PO SCH ×2 (08:45→19:58)
[2021-09-08] MEDS: CARVEDILOL 12.5 MG TABLET PO SCH ×2 (08:45→16:28)
[2021-09-08] MEDS: MULTIVITAMIN with MINERAL TABLET. PO SCH (08:45)
[2021-09-08] MEDS: POTASSIUM CHLORIDE 10 MEQ TABLET.ER. PO SCH (08:45)
[2021-09-08] MEDS: CLOPIDOGREL BISULFATE 75 MG TABLET PO SCH (08:45)
[2021-09-08] MEDS: DOCUSATE SODIUM 100 MG CAPSULE PO SCH ×2 (08:45→19:58)
[2021-09-08] MEDS: NYSTATIN TOPICAL POWDER 15GM BOTTLE. TP SCH ×2 (08:51→19:59)
--- NOTE | 2021-09-08 08:54 | PDOC ---
Exam Note: Josef Note: This note is a late entry for 09/05/2021 covers elements not covered in my initial note. Subjective: The patient was seen individually on 09/05/2021, discussed and reviewed the chart with Manuel MODI. According to the nursing staff, the patient has been yelling at times, trying to put his legs over the side rails of the bed and is a fall risk. He has placed himself on the floor in the dayroom and for a total of 5 times. He slept half hour previous night but he sleeps off and on during the day. Review of Systems: Ambulation impaired in wheelchair. No CV, , pulmonary, eye, ENT system symptoms on review. Mental Status Exam: The patient is reasonably oriented. He is alert and orien isaac. Speech is coherent. Abstraction fair. Computation impaired. Language function intact. Mood and affect still depressed. No suicidal or homicidal ideation. No clear psychotic symptoms. Laboratory Data: Reviewed. Impression: Major depressive disorder with psychotic features. Anxiety disorder unspecified. Plan: Continue current psychotropics mentioned in my initial note. Assessment: Vital Signs/I&O: Vital Signs Date Time Temp Pulse Resp B/P (MAP) Pulse Ox O2 Delivery O2 Flow Rate FiO2 09/08/21 08:45 98 145/96 09/08/21 06:05 97.4 19 97 09/06/21 06:11 Room Air I & O 09/07/21 09/07/21 09/08/21 15:00 23:00 07:00 Intake Total 610 ml 300 ml Balance 610 ml 300 ml Labs: Laboratory Tests Test 09/07/21 11:42 09/07/21 17:04 09/07/21 19:37 09/08/21 06:18 Glucose (Fingerstick) 114 mg/dL (70-99) H 134 mg/dL (70-99) H 137 mg/dL (70-99) H White Blood Count 7.6 x10^3/uL (4.0-11.0) Red Blood Count 3.96 x10^6/uL (4.30-5.70) L Hemoglobin 12.1 g/dL (13.0-17.5) L Hematocrit 38.0 % (39.0-53.0) L Mean Corpuscular Volume 96 fL (79-100) Mean Corpuscular Hemoglobin 31 pg (25-35) Mean Corpuscular Hemoglobin Concent 32 g/dL (31-37) Red Cell Distribution Width 16.7 % (11.5-14.5) H Platelet Count 268 x10^3/uL (140-400) Neutrophils (%) (Auto) 76 % (31-73) H Lymphocytes (%) (Auto) 11 % (24-48) L Monocytes (%) (Auto) 9 % (0-9) Eosinophils (%) (Auto) 3 % (0-3) Basophils (%) (Auto) 1 % (0-3) Neutrophils # (Auto) 5.8 x10^3uL (1.8-7.7) Lymphocytes # (Auto) 0.9 x10^3/uL (1.0-4.8) L Monocytes # (Auto) 0.7 x10^3/uL (0.0-1.1) Eosinophils # (Auto) 0.2 x10^3/uL (0.0-0.7) Basophils # (Auto) 0.0 x10^3/uL (0.0-0.2) Sodium Level 139 mmol/L (136-145) Potassium Level 4.1 mmol/L (3.5-5.1) Chloride Level 105 mmol/L (98-107) Carbon Dioxide Level 25 mmol/L (21-32) Anion Gap 9 (6-14) Blood Urea Nitrogen 32 mg/dL (8-26) H Creatinine 1.3 mg/dL (0.7-1.3) Estimated GFR (Cockcroft-Gault) 55.1 BUN/Creatinine Ratio 25 (6-20) H Glucose Level 142 mg/dL (70-99) H Calcium Level 8.8 mg/dL (8.5-10.1) Total Bilirubin 0.5 mg/dL (0.2-1.0) Aspartate Amino Transferase (AST) 31 U/L (15-37) Alanine Aminotransferase (ALT) 33 U/L (16-63) Alkaline Phosphatase 100 U/L (46-116) Total Protein 6.8 g/dL (6.4-8.2) Albumin 2.8 g/dL (3.4-5.0) L Albumin/Globulin Ratio 0.7 (1.0-1.7) L Test 09/08/21 07:17 Glucose (Fingerstick) 135 mg/dL (70-99) H Current Medications: I have reviewed the current psychotropics carefully including drug interactions. Risk benefit ratio favors no change other than as noted in my dictated progress note. Diagnosis: Problems: (1) Impulse control disorder, unspecified (2) Anxiety disorder, unspecified (3) Major depressive disorder, severe (4) Personality disorder, unspecified (5) Major depressive disorder, recurrent, severe with psychotic features ESE LEVI MD Sep 08, 2021 08:54
--- NOTE | 2021-09-08 09:16 | PDOC ---
Exam Note: Josef Note: This note is a late entry for 09/06/2021 covers elements not covered in my initial note. Subjective: The patient was seen individually on 09/06/2021, discussed and reviewed the chart with Isidra MODI. He slept 2-1/4 hours previous night. I met with him in his room. He has not had a shave and I talked with Madiha, nursing aid and she will help facilitate this tonight. He states he has had a pasta meal and seemed to like this. He still appears depressed, somewhat hopeless states he is very old. I reminded him he was 66 years old, certainly he has many physical problems and wounds which complicate but he has a fairly intact mind. He was able to accept some of this. Review of Systems: Ambulation impaired in wheelchair. No CV, , pulmonary, eye, ENT system symptoms on review. Mental Status Exam: The patient is reasonably oriented. He is alert and oriented. Speech is coherent. Abstraction fair. Computation impaired. Language function intact. Mood and affect depressed, anxious. No suicidal or homicidal ideation. No clear psychotic symptoms. Laboratory Data: Reviewed. Impression: Major depressive disorder with psychotic features. Anxiety disorder unspecified. Plan: Continue current psychotropics mentioned in my initial note. Assessment: Vital Signs/I&O: Vital Signs Date Time Temp Pulse Resp B/P (MAP) Pulse Ox O2 Delivery O2 Flow Rate FiO2 09/08/21 08:45 98 145/96 09/08/21 06:05 97.4 19 97 09/06/21 06:11 Room Air I & O 09/07/21 09/07/21 09/08/21 14:59 22:59 06:59 Intake Total 610 ml 300 ml Balance 610 ml 300 ml Labs: Laboratory Tests Test 09/07/21 11:42 09/07/21 17:04 09/07/21 19:37 09/08/21 06:18 Glucose (Fingerstick) 114 mg/dL (70-99) H 134 mg/dL (70-99) H 137 mg/dL (70-99) H White Blood Count 7.6 x10^3/uL (4.0-11.0) Red Blood Count 3.96 x10^6/uL (4.30-5.70) L Hemoglobin 12.1 g/dL (13.0-17.5) L Hematocrit 38.0 % (39.0-53.0) L Mean Corpuscular Volume 96 fL (79-100) Mean Corpuscular Hemoglobin 31 pg (25-35) Mean Corpuscular Hemoglobin Concent 32 g/dL (31-37) Red Cell Distribution Width 16.7 % (11.5-14.5) H Platelet Count 268 x10^3/uL (140-400) Neutrophils (%) (Auto) 76 % (31-73) H Lymphocytes (%) (Auto) 11 % (24-48) L Monocytes (%) (Auto) 9 % (0-9) Eosinophils (%) (Auto) 3 % (0-3) Basophils (%) (Auto) 1 % (0-3) Neutrophils # (Auto) 5.8 x10^3uL (1.8-7.7) Lymphocytes # (Auto) 0.9 x10^3/uL (1.0-4.8) L Monocytes # (Auto) 0.7 x10^3/uL (0.0-1.1) Eosinophils # (Auto) 0.2 x10^3/uL (0.0-0.7) Basophils # (Auto) 0.0 x10^3/uL (0.0-0.2) Sodium Level 139 mmol/L (136-145) Potassium Level 4.1 mmol/L (3.5-5.1) Chloride Level 105 mmol/L (98-107) Carbon Dioxide Level 25 mmol/L (21-32) Anion Gap 9 (6-14) Blood Urea Nitrogen 32 mg/dL (8-26) H Creatinine 1.3 mg/dL (0.7-1.3) Estimated GFR (Cockcroft-Gault) 55.1 BUN/Creatinine Ratio 25 (6-20) H Glucose Level 142 mg/dL (70-99) H Calcium Level 8.8 mg/dL (8.5-10.1) Total Bilirubin 0.5 mg/dL (0.2-1.0) Aspartate Amino Transferase (AST) 31 U/L (15-37) Alanine Aminotransferase (ALT) 33 U/L (16-63) Alkaline Phosphatase 100 U/L (46-116) Total Protein 6.8 g/dL (6.4-8.2) Albumin 2.8 g/dL (3.4-5.0) L Albumin/Globulin Ratio 0.7 (1.0-1.7) L Test 09/08/21 07:17 Glucose (Fingerstick) 135 mg/dL (70-99) H Current Medications: I have reviewed the current psychotropics carefully including drug interactions. Risk benefit ratio favors no change other than as noted in my dictated progress note. Diagnosis: Problems: (1) Impulse control disorder, unspecified (2) Anxiety disorder, unspecified (3) Major depressive disorder, recurrent (4) Major depressive disorder, severe (5) Major depressive disorder, recurrent, severe with psychotic features ESE LEVI MD Sep 08, 2021 09:16
--- NOTE | 2021-09-08 09:25 | PDOC ---
Exam Note: Josef Note: This note is a late entry for 09/07/2021 covers elements not covered in my initial note. Subjective: The patient was seen individually on 09/07/2021, discussed and reviewed the chart with Susi MODI. He slept 4-1/4 hours previous night. The patient has been acting helpless per nursing staff. Apparently last evening, he appeared somewhat delusional per nursing report. He states he was plugged into the ceiling and needed to be unplugged. None of this has been repeated today. He has been cooperative with dressing changes and a bed bath but has not gone to the dining room even for his meals even though he told me that he had when I met with him on one on one visit. Review of Systems: Ambulation impaired in wheelchair. No CV, , pulmonary, eye, ENT system symptoms on review. Mental Status Exam: The patient is reasonably oriented. 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 Speech has some latency, coherent. Abstraction fair. Computation impaired. Language function intact. Attention span fair. Mood and affect remains somewhat depressed, anxious. No suicidal or homicidal ideation. Laboratory Data: Reviewed. Impression: Major depressive disorder with psychotic features. Anxiety disorder unspecified. Plan: Continue current psychotropics mentioned in my initial note. Assessment: Vital Signs/I&O: Vital Signs Date Time Temp Pulse Resp B/P (MAP) Pulse Ox O2 Delivery O2 Flow Rate FiO2 09/08/21 08:45 98 145/96 09/08/21 06:05 97.4 19 97 09/06/21 06:11 Room Air l I & O 09/07/21 09/07/21 09/08/21 14:59 22:59 06:59 Intake Total 610 ml 300 ml Balance 610 ml 300 ml Labs: Laboratory Tests Test 09/07/21 11:42 09/07/21 17:04 09/07/21 19:37 09/08/21 06:18 Glucose (Fingerstick) 114 mg/dL (70-99) H 134 mg/dL (70-99) H 137 mg/dL (70-99) H White Blood Count 7.6 x10^3/uL (4.0-11.0) Red Blood Count 3.96 x10^6/uL (4.30-5.70) L Hemoglobin 12.1 g/dL (13.0-17.5) L Hematocrit 38.0 % (39.0-53.0) L Mean Corpuscular Volume 96 fL (79-100) Mean Corpuscular Hemoglobin 31 pg (25-35) Mean Corpuscular Hemoglobin Concent 32 g/dL (31-37) Red Cell Distribution Width 16.7 % (11.5-14.5) H Platelet Count 268 x10^3/uL (140-400) Neutrophils (%) (Auto) 76 % (31-73) H Lymphocytes (%) (Auto) 11 % (24-48) L Monocytes (%) (Auto) 9 % (0-9) Eosinophils (%) (Auto) 3 % (0-3) Basophils (%) (Auto) 1 % (0-3) Neutrophils # (Auto) 5.8 x10^3uL (1.8-7.7) Lymphocytes # (Auto) 0.9 x10^3/uL (1.0-4.8) L Monocytes # (Auto) 0.7 x10^3/uL (0.0-1.1) Eosinophils # (Auto) 0.2 x10^3/uL (0.0-0.7) Basophils # (Auto) 0.0 x10^3/uL (0.0-0.2) Sodium Level 139 mmol/L (136-145) Potassium Level 4.1 mmol/L (3.5-5.1) Chloride Level 105 mmol/L (98-107) Carbon Dioxide Level 25 mmol/L (21-32) Anion Gap 9 (6-14) Blood Urea Nitrogen 32 mg/dL (8-26) H Creatinine 1.3 mg/dL (0.7-1.3) Estimated GFR (Cockcroft-Gault) 55.1 BUN/Creatinine Ratio 25 (6-20) H Glucose Level 142 mg/dL (70-99) H Calcium Level 8.8 mg/dL (8.5-10.1) Total Bilirubin 0.5 mg/dL (0.2-1.0) Aspartate Amino Transferase (AST) 31 U/L (15-37) Alanine Aminotransferase (ALT) 33 U/L (16-63) Alkaline Phosphatase 100 U/L (46-116) Total Protein 6.8 g/dL (6.4-8.2) Albumin 2.8 g/dL (3.4-5.0) L Albumin/Globulin Ratio 0.7 (1.0-1.7) L Test 09/08/21 07:17 Glucose (Fingerstick) 135 mg/dL (70-99) H Current Medications: I have reviewed the current psychotropics carefully including drug interactions. Risk benefit ratio favors no change other than as noted in my dictated progress note. Diagnosis: Problems: (1) Impulse control disorder, unspecified (2) Anxiety disorder, unspecified (3) Major depressive disorder, recurrent (4) Major depressive disorder, severe (5) Major depressive disorder, recurrent, severe with psychotic features ESE LEVI MD Sep 08, 2021 09:25
[2021-09-08] MEDS: DULoxetine HCL 30 MG CAPSULE.DR PO SCH (12:37)
[2021-09-08 15:51] VITALS: BP 96/62
[2021-09-08] MEDS: ARIPiprazole 5 MG TABLET PO SCH (19:58)
[2021-09-08] MEDS: MIRTAZAPINE 30 MG TABLET PO SCH (19:58)
[2021-09-08] MEDS: ATORVASTATIN CALCIUM 20 MG TABLET PO SCH (19:58)
[2021-09-08] MEDS: traZODone 100 MG TABLET. PO SCH (19:58)
[2021-09-08] MEDS: oxyCODONE/APAP 10/325 1 TAB TABLET PO PRN (20:00)
--- NOTE | 2021-09-08 21:56 | PDOC ---
Exam Note: Josef Note: Please also refer to the separate dictated note~for this date of service dictated separately.~Patient seen individually. Discussed the patient with Nursing staff reviewed the chart.~Reviewed interim history and current functioning. Reviewed vital signs,~Labs/ Radiology~and current medications noted below. Continue current treatment with the changes noted in the dictated addendum note Assessment: Vital Signs/I&O: Vital Signs Date Time Temp Pulse Resp B/P (MAP) Pulse Ox O2 Delivery O2 Flow Rate FiO2 09/08/21 16:28 107 96/62 09/08/21 15:51 97.6 20 95 09/06/21 06:11 Room Air I & O 09/07/21 09/07/21 09/08/21 14:59 22:59 06:59 Intake Total 610 ml 300 ml Balance 610 ml 300 ml Labs: Laboratory Tests Test 09/08/21 06:18 09/08/21 07:17 09/08/21 12:06 09/08/21 16:53 White Blood Count 7.6 x10^3/uL (4.0-11.0) Red Blood Count 3.96 x10^6/uL (4.30-5.70) L Hemoglobin 12.1 g/dL (13.0-17.5) L Hematocrit 38.0 % (39.0-53.0) L Mean Corpuscular Volume 96 fL (79-100) Mean Corpuscular Hemoglobin 31 pg (25-35) Mean Corpuscular Hemoglobin Concent 32 g/dL (31-37) Red Cell Distribution Width 16.7 % (11.5-14.5) H Platelet Count 268 x10^3/uL (140-400) Neutrophils (%) (Auto) 76 % (31-73) H Lymphocytes (%) (Auto) 11 % (24-48) L Monocytes (%) (Auto) 9 % (0-9) Eosinophils (%) (Auto) 3 % (0-3) Basophils (%) (Auto) 1 % (0-3) Neutrophils # (Auto) 5.8 x10^3uL (1.8-7.7) Lymphocytes # (Auto) 0.9 x10^3/uL (1.0-4.8) L Monocytes # (Auto) 0.7 x10^3/uL (0.0-1.1) Eosinophils # (Auto) 0.2 x10^3/uL (0.0-0.7) Basophils # (Auto) 0.0 x10^3/uL (0.0-0.2) Sodium Level 139 mmol/L (136-145) Potassium Level 4.1 mmol/L (3.5-5.1) Chloride Level 105 mmol/L (98-107) Carbon Dioxide Level 25 mmol/L (21-32) Anion Gap 9 (6-14) Blood Urea Nitrogen 32 mg/dL (8-26) H Creatinine 1.3 mg/dL (0.7-1.3) Estimated GFR (Cockcroft-Gault) 55.1 BUN/Creatinine Ratio 25 (6-20) H Glucose Level 142 mg/dL (70-99) H Calcium Level 8.8 mg/dL (8.5-10.1) Total Bilirubin 0.5 mg/dL (0.2-1.0) Aspartate Amino Transferase (AST) 31 U/L (15-37) Alanine Aminotransferase (ALT) 33 U/L (16-63) Alkaline Phosphatase 100 U/L (46-116) Total Protein 6.8 g/dL (6.4-8.2) Albumin 2.8 g/dL (3.4-5.0) L Albumin/Globulin Ratio 0.7 (1.0-1.7) L Glucose (Fingerstick) 135 mg/dL (70-99) H 139 mg/dL (70-99) H 127 mg/dL (70-99) H Test 09/08/21 20:13 Glucose (Fingerstick) 108 mg/dL (70-99) H Current Medications: Meds: Laboratory Tests Test 09/08/21 06:18 09/08/21 07:17 09/08/21 12:06 09/08/21 16:53 White Blood Count 7.6 x10^3/uL Red Blood Count 3.96 x10^6/uL Hemoglobin 12.1 g/dL Hematocrit 38.0 % Mean Corpuscular Volume 96 fL Mean Corpuscular Hemoglobin 31 pg Mean Corpuscular Hemoglobin Concent 32 g/dL Red Cell Distribution Width 16.7 % Platelet Count 268 x10^3/uL Neutrophils (%) (Auto) 76 % Lymphocytes (%) (Auto) 11 % Monocytes (%) (Auto) 9 % Eosinophils (%) (Auto) 3 % Basophils (%) (Auto) 1 % Neutrophils # (Auto) 5.8 x10^3uL Lymphocytes # (Auto) 0.9 x10^3/uL Monocytes # (Auto) 0.7 x10^3/uL Eosinophils # (Auto) 0.2 x10^3/uL Basophils # (Auto) 0.0 x10^3/uL Sodium Level 139 mmol/L Potassium Level 4.1 mmol/L Chloride Level 105 mmol/L Carbon Dioxide Level 25 mmol/L Anion Gap 9 Blood Urea Nitrogen 32 mg/dL Creatinine 1.3 mg/dL Estimated GFR (Cockcroft-Gault) 55.1 BUN/Creatinine Ratio 25 Glucose Level 142 mg/dL Calcium Level 8.8 mg/dL Total Bilirubin 0.5 mg/dL Aspartate Amino Transf (AST/SGOT) 31 U/L Alanine Aminotransferase (ALT/SGPT) 33 U/L Alkaline Phosphatase 100 U/L Total Protein 6.8 g/dL Albumin 2.8 g/dL Albumin/Globulin Ratio 0.7 Glucose (Fingerstick) 135 mg/dL 139 mg/dL 127 mg/dL Test 09/08/21 20:13 Glucose (Fingerstick) 108 mg/dL Current Medications Medications (Trade) Dose Ordered Sig/Nicky Route PRN Reason Start Time Stop Time Status Last Admin Dose Admin Acetaminophen (Tylenol) 650 mg PRN Q6HRS PRN PO mild pain/temp >100.3 F 08/05/21 16:30 09/03/21 08:46 Aripiprazole (Abilify) 10 mg DAILY PO 08/06/21 09:00 08/21/21 10:13 DC 08/21/21 08:25 Aspirin (Aspirin Chewable) 81 mg DAILY PO 08/06/21 09:00 09/08/21 08:44 Bupropion HCl (Wellbutrin Xl) 150 mg DAILY PO 08/06/21 09:00 09/04/21 10:46 DC 09/04/21 08:23 Clopidogrel Bisulfate (Plavix) 75 mg DAILY PO 08/06/21 09:00 09/08/21 08:45 Docusate Sodium (Colace) 100 mg BID PO 08/05/21 21:00 09/08/21 19:58 Duloxetine HCl (Cymbalta) 30 mg AFTRNOON PO 08/06/21 13:00 09/08/21 12:37 Duloxetine HCl (Cymbalta) 60 mg DAILY PO 08/06/21 09:00 09/08/21 08:44 Furosemide (Lasix) 40 mg DAILY PO 08/06/21 09:00 09/08/21 08:44 Lamotrigine (LaMICtal) 150 mg QHS PO 08/05/21 21:00 08/14/21 10:06 DC 08/13/21 19:55 Linagliptin (Tradjenta) 5 mg DAILY PO 08/06/21 09:00 09/08/21 08:44 Al Hydroxide/Mg Hydroxide (Mylanta Plus Xs) 15 ml PRN AFTMEALHC PRN PO DYSPEPSIA 08/05/21 16:30 08/26/21 12:36 Magnesium Citrate (Citroma) 296 ml PRN 1X PRN PO 2nd choice constipation 08/05/21 16:30 08/12/21 07:19 DC 08/11/21 18:33 Mirtazapine (Remeron) 30 mg HS PO 08/05/21 21:00 09/08/21 19:58 Neomycin/ Polymyxin/ Bacitracin (Triple Antibiotic Ointment) 1 pkt BID TP 08/05/21 21:00 09/08/21 19:58 Nystatin (Nystop) 1 neelima BID TP 08/05/21 21:00 09/08/21 19:59 Olanzapine (ZyPREXA ZYDIS) 2.5 mg PRN Q2HRS PRN PO psychosis/agitation 08/05/21 16:30 09/07/21 01:14 Oxycodone/ Acetaminophen (Percocet 10/325) 1 tab PRN Q6HRS PRN PO MODERATE TO SEVERE PAIN 08/05/21 16:30 09/08/21 20:00 Potassium Chloride (Klor-Con) 30 meq DAILY PO 08/06/21 09:00 09/08/21 08:45 Trazodone HCl (Desyrel) 50 mg PRN QHS PRN PO INSOMNIA 08/05/21 16:30 09/07/21 01:14 Trazodone HCl (Desyrel) 100 mg HS PO 08/05/21 21:00 09/08/21 19:58 Trolamine Salicylate (Myoplex) 1 neelima PRN QID PRN TP muscle pain 08/05/21 16:30 UNV Atorvastatin Calcium (Lipitor) 80 mg QHS PO 08/05/21 21:00 09/08/21 19:58 Carvedilol (Coreg) 37.5 mg BIDWMEALS PO 08/05/21 17:00 09/08/21 08:45 Non-Formulary Medication (Insulin Lispro (Humalog)) 0-5 Units, low dose scale. TIDWMEALS SQ 08/05/21 17:00 UNV Multivitamins/ Calcium (Thera-M Plus) 1 tab DAILY PO 08/06/21 09:00 09/08/21 08:45 Multi-Ingredient Ointment (Analgesic [place]) 1 neelima PRN QID PRN TP MUSCLE PAIN 08/05/21 17:00 Insulin Human Lispro (HumaLOG) 0-5 UNITS TIDWMEALS SQ 08/05/21 17:00 08/10/21 13:08 Dextrose (Dextrose 50%-Water Syringe) 12.5 gm PRN Q15MIN PRN IV SEE COMMENTS 08/05/21 17:00 Magnesium Hydroxide (Milk Of Magnesia) 2,400 mg PRN QHS PRN PO CONSTIPATION 08/08/21 22:15 09/04/21 20:45 Senna/Docusate Sodium (Senna Plus) 1 tab PRN BID PRN PO 2nd choice CONSTIPATION 08/12/21 15:30 08/22/21 13:50 DC 08/20/21 20:29 Lamotrigine (LaMICtal) 200 mg QHS PO 08/14/21 21:00 08/19/21 17:54 DC 08/18/21 20:25 Lamotrigine (LaMICtal) 150 mg QHS PO 08/19/21 21:00 09/08/21 19:58 Lamotrigine (LaMICtal) 100 mg DAILY PO 08/20/21 09:00 08/28/21 09:00 DC 08/28/21 09:14 Aripiprazole (Abilify) 5 mg HS PO 08/22/21 21:00 09/08/21 19:58 Senna/Docusate Sodium (Senna Plus) 1 tab BID PO 08/22/21 21:00 09/08/21 19:58 Lamotrigine (LaMICtal) 150 mg DAILY PO 08/29/21 09:00 09/08/21 08:45 Bupropion HCl (Wellbutrin Xl) 300 mg DAILY PO 09/05/21 09:00 09/08/21 08:44 I have reviewed the current psychotropics carefully including drug interactions. Risk benefit ratio favors no change other than as noted in my dictated progress note. Diagnosis: Problems: (1) Impulse control disorder, unspecified (2) Anxiety disorder, unspecified (3) Major depressive disorder, recurrent (4) Major depressive disorder, recurrent, severe with psychotic features ESE LEVI MD Sep 08, 2021 21:55
[2021-09-09 06:11] VITALS: BP 123/83
[2021-09-09] MEDS: buPROPion XL 300 MG TAB.ER.24H. PO SCH (07:25)
[2021-09-09] MEDS: DULoxetine HCL 60 MG CAPSULE.DR PO SCH (07:25)
[2021-09-09] MEDS: CARVEDILOL 12.5 MG TABLET PO SCH ×2 (07:25→17:50)
[2021-09-09] MEDS: CLOPIDOGREL BISULFATE 75 MG TABLET PO SCH (07:25)
[2021-09-09] MEDS: ASPIRIN CHEWABLE 81 MG TABLET. PO SCH (07:26)
[2021-09-09] MEDS: SENNOSIDES/DOCUSATE 8.6/50MG TABLET. PO SCH ×2 (07:26→21:00)
[2021-09-09] MEDS: DOCUSATE SODIUM 100 MG CAPSULE PO SCH ×2 (07:26→21:00)
[2021-09-09] MEDS: FUROSEMIDE 40 MG TABLET PO SCH (07:26)
[2021-09-09] MEDS: lamoTRIgine 100 MG TABLET. PO SCH ×2 (07:26→21:00)
[2021-09-09] MEDS: LINAGLIPTIN 5 MG TABLET PO SCH (07:27)
[2021-09-09] MEDS: NEOMY/BACITR/POLYMYXIN OINT PACKET. TP SCH ×2 (07:27→21:00)
[2021-09-09] MEDS: MULTIVITAMIN with MINERAL TABLET. PO SCH (07:27)
[2021-09-09] MEDS: POTASSIUM CHLORIDE 10 MEQ TABLET.ER. PO SCH (07:27)
[2021-09-09] MEDS: INSULIN LISPRO 300 UNITS/3 ML VIAL. SQ SCH ×3 (08:00→17:00)
[2021-09-09] MEDS: NYSTATIN TOPICAL POWDER 15GM BOTTLE. TP SCH ×2 (09:00→21:00)
[2021-09-09] MEDS: ACETAMINOPHEN 325 MG TABLET PO PRN (09:26)
[2021-09-09] MEDS: DULoxetine HCL 30 MG CAPSULE.DR PO SCH (13:00)
[2021-09-09 16:03] VITALS: BP 101/62
[2021-09-09 19:33] VITALS: BP 106/67
[2021-09-09] MEDS ORDERED: ONDANSETRON ODT 4 MG TAB.RAPDIS PO PRN (19:45)
[2021-09-09 20:55] LABS: BASO % 0 % (0-3); EOS # 0.1 x10^3/uL (0.0-0.7); EOS % 1 % (0-3); HEMATOCRIT 36.7 % (39.0-53.0); HEMOGLOBIN 11.9 g/dL (13.0-17.5); LYMPH # 0.6 x10^3/uL (1.0-4.8); LYMPH % 6 % (24-48); MEAN CORPUSCULAR HEMOGLOBIN 30 pg (25-35); MEAN CORPUSCULAR HGB CONC 32 g/dL (31-37); MEAN CORPUSCULAR VOLUME 94 fL (79-100); MONO # 0.8 x10^3/uL (0.0-1.1); MONO % 8 % (0-9); NEUT # 8.3 x10^3uL (1.8-7.7); NEUT % 85 % (31-73); PLATELET COUNT 241 x10^3/uL (140-400); RED BLOOD COUNT 3.92 x10^6/uL (4.30-5.70); RED CELL DISTRIBUTION WIDTH 16.6 % (11.5-14.5); WHITE BLOOD COUNT 9.8 x10^3/uL (4.0-11.0)
[2021-09-09] MEDS: ARIPiprazole 5 MG TABLET PO SCH (21:00)
[2021-09-09] MEDS: traZODone 100 MG TABLET. PO SCH (21:00)
[2021-09-09] MEDS: MIRTAZAPINE 30 MG TABLET PO SCH (21:00)
[2021-09-09] MEDS: ATORVASTATIN CALCIUM 20 MG TABLET PO SCH (21:00)
[2021-09-09 21:07] LABS: ALBUMIN 2.7 g/dL (3.4-5.0); ALBUMIN/GLOBULIN RATIO 0.7 (1.0-1.7); CALCIUM 8.9 mg/dL (8.5-10.1); CREATININE 1.3 mg/dL (0.7-1.3); GFR 55.1; POTASSIUM 4.2 mmol/L (3.5-5.1); TOTAL BILIRUBIN 0.6 mg/dL (0.2-1.0); TOTAL PROTEIN 6.4 g/dL (6.4-8.2)
--- NOTE | 2021-09-09 21:24 | PDOC ---
Exam Note: Josef Note: Please also refer to the separate dictated note~for this date of service dictated separately.~Patient seen individually. Discussed the patient with Nursing staff reviewed the chart.~Reviewed interim history and current functioning. Reviewed vital signs,~Labs/ Radiology~and current medications noted below. Continue current treatment with the changes noted in the dictated addendum note Assessment: Vital Signs/I&O: Vital Signs Date Time Temp Pulse Resp B/P (MAP) Pulse Ox O2 Delivery O2 Flow Rate FiO2 09/09/21 19:33 98.0 111 20 106/67 (80) 95 09/09/21 16:03 Room Air I & O 09/08/21 09/08/21 09/09/21 14:59 22:59 06:59 Intake Total 120 ml Balance 120 ml Labs: Laboratory Tests Test 09/09/21 07:45 09/09/21 12:07 09/09/21 18:18 09/09/21 19:16 Glucose (Fingerstick) 134 mg/dL (70-99) H 137 mg/dL (70-99) H 130 mg/dL (70-99) H 160 mg/dL (70-99) H Test 09/09/21 19:30 09/09/21 20:44 Glucose (Fingerstick) 149 mg/dL (70-99) H White Blood Count 9.8 x10^3/uL (4.0-11.0) Red Blood Count 3.92 x10^6/uL (4.30-5.70) L Hemoglobin 11.9 g/dL (13.0-17.5) L Hematocrit 36.7 % (39.0-53.0) L Mean Corpuscular Volume 94 fL (79-100) Mean Corpuscular Hemoglobin 30 pg (25-35) Mean Corpuscular Hemoglobin Concent 32 g/dL (31-37) Red Cell Distribution Width 16.6 % (11.5-14.5) H Platelet Count 241 x10^3/uL (140-400) Neutrophils (%) (Auto) 85 % (31-73) H Lymphocytes (%) (Auto) 6 % (24-48) L Monocytes (%) (Auto) 8 % (0-9) Eosinophils (%) (Auto) 1 % (0-3) Basophils (%) (Auto) 0 % (0-3) Neutrophils # (Auto) 8.3 x10^3uL (1.8-7.7) H Lymphocytes # (Auto) 0.6 x10^3/uL (1.0-4.8) L Monocytes # (Auto) 0.8 x10^3/uL (0.0-1.1) Eosinophils # (Auto) 0.1 x10^3/uL (0.0-0.7) Basophils # (Auto) 0.0 x10^3/uL (0.0-0.2) Sodium Level 144 mmol/L (136-145) Potassium Level 4.2 mmol/L (3.5-5.1) Chloride Level 108 mmol/L (98-107) H Carbon Dioxide Level 21 mmol/L (21-32) Anion Gap 15 (6-14) H Blood Urea Nitrogen 39 mg/dL (8-26) H Creatinine 1.3 mg/dL (0.7-1.3) Estimated GFR (Cockcroft-Gault) 55.1 BUN/Creatinine Ratio 30 (6-20) H Glucose Level 141 mg/dL (70-99) H Calcium Level 8.9 mg/dL (8.5-10.1) Total Bilirubin 0.6 mg/dL (0.2-1.0) Aspartate Amino Transferase (AST) 50 U/L (15-37) H Alanine Aminotransferase (ALT) 38 U/L (16-63) Alkaline Phosphatase 94 U/L (46-116) Total Protein 6.4 g/dL (6.4-8.2) Albumin 2.7 g/dL (3.4-5.0) L Albumin/Globulin Ratio 0.7 (1.0-1.7) L Current Medications: Meds: Laboratory Tests Test 09/09/21 07:45 09/09/21 12:07 09/09/21 18:18 09/09/21 19:16 Glucose (Fingerstick) 134 mg/dL 137 mg/dL 130 mg/dL 160 mg/dL Test 09/09/21 19:30 09/09/21 20:44 Glucose (Fingerstick) 149 mg/dL White Blood Count 9.8 x10^3/uL Red Blood Count 3.92 x10^6/uL Hemoglobin 11.9 g/dL Hematocrit 36.7 % Mean Corpuscular Volume 94 fL Mean Corpuscular Hemoglobin 30 pg Mean Corpuscular Hemoglobin Concent 32 g/dL Red Cell Distribution Width 16.6 % Platelet Count 241 x10^3/uL Neutrophils (%) (Auto) 85 % Lymphocytes (%) (Auto) 6 % Monocytes (%) (Auto) 8 % Eosinophils (%) (Auto) 1 % Basophils (%) (Auto) 0 % Neutrophils # (Auto) 8.3 x10^3uL Lymphocytes # (Auto) 0.6 x10^3/uL Monocytes # (Auto) 0.8 x10^3/uL Eosinophils # (Auto) 0.1 x10^3/uL Basophils # (Auto) 0.0 x10^3/uL Sodium Level 144 mmol/L Potassium Level 4.2 mmol/L Chloride Level 108 mmol/L Carbon Dioxide Level 21 mmol/L Anion Gap 15 Blood Urea Nitrogen 39 mg/dL Creatinine 1.3 mg/dL Estimated GFR (Cockcroft-Gault) 55.1 BUN/Creatinine Ratio 30 Glucose Level 141 mg/dL Calcium Level 8.9 mg/dL Total Bilirubin 0.6 mg/dL Aspartate Amino Transf (AST/SGOT) 50 U/L Alanine Aminotransferase (ALT/SGPT) 38 U/L Alkaline Phosphatase 94 U/L Total Protein 6.4 g/dL Albumin 2.7 g/dL Albumin/Globulin Ratio 0.7 Current Medications Medications (Trade) Dose Ordered Sig/Nicky Route PRN Reason Start Time Stop Time Status Last Admin Dose Admin Acetaminophen (Tylenol) 650 mg PRN Q6HRS PRN PO mild pain/temp >100.3 F 08/05/21 16:30 09/09/21 09:26 Aripiprazole (Abilify) 10 mg DAILY PO 08/06/21 09:00 08/21/21 10:13 DC 08/21/21 08:25 Aspirin (Aspirin Chewable) 81 mg DAILY PO 08/06/21 09:00 09/09/21 07:26 Bupropion HCl (Wellbutrin Xl) 150 mg DAILY PO 08/06/21 09:00 09/04/21 10:46 DC 09/04/21 08:23 Clopidogrel Bisulfate (Plavix) 75 mg DAILY PO 08/06/21 09:00 09/09/21 07:25 Docusate Sodium (Colace) 100 mg BID PO 08/05/21 21:00 09/09/21 07:26 Duloxetine HCl (Cymbalta) 30 mg AFTRNOON PO 08/06/21 13:00 09/09/21 13:00 Duloxetine HCl (Cymbalta) 60 mg DAILY PO 08/06/21 09:00 09/09/21 07:25 Furosemide (Lasix) 40 mg DAILY PO 08/06/21 09:00 09/09/21 07:26 Lamotrigine (LaMICtal) 150 mg QHS PO 08/05/21 21:00 08/14/21 10:06 DC 08/13/21 19:55 Linagliptin (Tradjenta) 5 mg DAILY PO 08/06/21 09:00 09/09/21 07:27 Al Hydroxide/Mg Hydroxide (Mylanta Plus Xs) 15 ml PRN AFTMEALHC PRN PO DYSPEPSIA 08/05/21 16:30 08/26/21 12:36 Magnesium Citrate (Citroma) 296 ml PRN 1X PRN PO 2nd choice constipation 08/05/21 16:30 08/12/21 07:19 DC 08/11/21 18:33 Mirtazapine (Remeron) 30 mg HS PO 08/05/21 21:00 09/08/21 19:58 Neomycin/ Polymyxin/ Bacitracin (Triple Antibiotic Ointment) 1 pkt BID TP 08/05/21 21:00 09/09/21 07:27 Nystatin (Nystop) 1 neelima BID TP 08/05/21 21:00 09/09/21 09:00 Olanzapine (ZyPREXA ZYDIS) 2.5 mg PRN Q2HRS PRN PO psychosis/agitation 08/05/21 16:30 09/07/21 01:14 Oxycodone/ Acetaminophen (Percocet 10/325) 1 tab PRN Q6HRS PRN PO MODERATE TO SEVERE PAIN 08/05/21 16:30 09/08/21 20:00 Potassium Chloride (Klor-Con) 30 meq DAILY PO 08/06/21 09:00 09/09/21 07:27 Trazodone HCl (Desyrel) 50 mg PRN QHS PRN PO INSOMNIA 08/05/21 16:30 09/07/21 01:14 Trazodone HCl (Desyrel) 100 mg HS PO 08/05/21 21:00 09/08/21 19:58 Trolamine Salicylate (Myoplex) 1 neelima PRN QID PRN TP muscle pain 08/05/21 16:30 UNV Atorvastatin Calcium (Lipitor) 80 mg QHS PO 08/05/21 21:00 09/08/21 19:58 Carvedilol (Coreg) 37.5 mg BIDWMEALS PO 08/05/21 17:00 09/09/21 17:50 Non-Formulary Medication (Insulin Lispro (Humalog)) 0-5 Units, low dose scale. TIDWMEALS SQ 08/05/21 17:00 UNV Multivitamins/ Calcium (Thera-M Plus) 1 tab DAILY PO 08/06/21 09:00 09/09/21 07:27 Multi-Ingredient Ointment (Analgesic [place]) 1 neelima PRN QID PRN TP MUSCLE PAIN 08/05/21 17:00 Insulin Human Lispro (HumaLOG) 0-5 UNITS TIDWMEALS SQ 08/05/21 17:00 08/10/21 13:08 Dextrose (Dextrose 50%-Water Syringe) 12.5 gm PRN Q15MIN PRN IV SEE COMMENTS 08/05/21 17:00 Magnesium Hydroxide (Milk Of Magnesia) 2,400 mg PRN QHS PRN PO CONSTIPATION 08/08/21 22:15 09/04/21 20:45 Senna/Docusate Sodium (Senna Plus) 1 tab PRN BID PRN PO 2nd choice CONSTIPATION 08/12/21 15:30 08/22/21 13:50 DC 08/20/21 20:29 Lamotrigine (LaMICtal) 200 mg QHS PO 08/14/21 21:00 08/19/21 17:54 DC 08/18/21 20:25 Lamotrigine (LaMICtal) 150 mg QHS PO 08/19/21 21:00 09/08/21 19:58 Lamotrigine (LaMICtal) 100 mg DAILY PO 08/20/21 09:00 08/28/21 09:00 DC 08/28/21 09:14 Aripiprazole (Abilify) 5 mg HS PO 08/22/21 21:00 09/08/21 19:58 Senna/Docusate Sodium (Senna Plus) 1 tab BID PO 08/22/21 21:00 09/09/21 07:26 Lamotrigine (LaMICtal) 150 mg DAILY PO 08/29/21 09:00 09/09/21 07:26 Bupropion HCl (Wellbutrin Xl) 300 mg DAILY PO 09/05/21 09:00 09/09/21 07:25 Ondansetron HCl (Zofran Odt) 4 mg PRN Q4HRS PRN PO NAUSEA/VOMITING 09/09/21 19:45 09/09/21 19:42 Current Medications Medications (Trade) Dose Ordered Sig/Nicky Route PRN Reason Start Time Stop Time Status Last Admin Dose Admin Ondansetron HCl (Zofran Odt) 4 mg PRN Q4HRS PRN PO NAUSEA/VOMITING 09/09/21 19:45 09/09/21 19:42 I have reviewed the current psychotropics carefully including drug interactions. Risk benefit ratio favors no change other than as noted in my dictated progress note. Diagnosis: Problems: (1) Impulse control disorder, unspecified (2) Anxiety disorder, unspecified (3) Major depressive disorder, severe (4) Personality disorder, unspecified (5) Major depressive disorder, recurrent, severe with psychotic features ESE LEVI MD Sep 09, 2021 21:23
--- NOTE | 2021-09-10 03:00 | RAD ---
Exam: CT abdomen/pelvis without intravenous contrast Indication: Abdominal pain, constipation Comparison: None Technique: Helical CT imaging performed of the abdomen and pelvis without the use of intravenous cont rast. Sagittal and coronal reformats were obtained. One or more of the following individualized dose reduction techniques were utilized for this examinat ion: 1. Automated exposure control 2. Adjustment of the mA and/or kV according to patient size 3. Use of iterative reconstruction technique. Findings: Inherently limited evaluation without intravenous contrast. Lower chest: Heart is enlarged. There are changes of median sternotomy. Mild bibasilar opacities, lik nando atelectasis. Liver: The liver is normal in size. There is a 1.7 cm simple cyst in the liver. Gallbladder/Biliary Tree: Normal. Pancreas: Diffuse fatty atrophy of the pancreas. There is a 1.2 cm nodule in the pancreatic head (jenni ge [id number], series 2). Spleen: Normal. Adrenal Glands: Normal. Kidneys/Ureters/Bladder: Kidneys are normal in size. No nephrolithiasis or hydronephrosis. There is a 2 cm exophytic left renal lesion with greater than fluid density, Hounsfield units 33. Ureters and b ladder are normal. Reproductive Organs: Prostate gland is normal. Stomach, small bowel, and colon: Mild distal esophageal wall thickening. The stomach is normal. No sm all bowel obstruction. Normal appendix. Colon is normal. Vasculature: Abdominal aorta is normal in caliber. There is moderate calcified aortoiliac atheroscler osis. 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 Lymph Nodes: No lymphadenopathy. Peritoneum and retroperitoneum: No free fluid or free air. Bones: No acute osseous abnormality. Mild to moderate degenerative disc disease. Miscellaneous: None. IMPRESSION: 1. No acute abnormality in the abdomen and pelvis. 2. 2 cm left renal lesion with greater than fluid density, this could be palpated cysts or solid mas s. Recommend CT or MRI with renal mass protocol. 3. 1.2 cm nodule in the pancreatic head. This could be further evaluated with CT or MRI with pancreas protocol. 4. Mild distal esophageal wall thickening, correlate for esophagitis. 5. Cardiomegaly. Moderate calcified atherosclerosis. 2.5 cm right common iliac artery stent. Electronically signed by: Patricia Nguyen MD (09/10/2021 2:57 AM) [facility]
[2021-09-10 06:13] VITALS: BP 104/62
--- NOTE | 2021-09-10 07:01 | PDOC ---
Exam Note: Josef Note: This note is a late entry for 09/08/2021 covers elements not covered in my initial note. Subjective: The patient was seen individually on 09/08/2021, discussed and reviewed the chart with Susi MODI. He slept 4-1/2 hours previous night. The patient does appear somewhat helpless, puts himself on the floor, does come out for meals in his wheelchair. I met with him in his room. Review of Systems: Ambulation impaired in wheelchair. No CV, , pulmonary, eye, ENT system symptoms on review. Mental Status Exam: The patient is oriented reasonably. He was having his sandwich for supper, still appears somewhat depressed but improved. Speech coherent. Abstraction fair. Computation impaired. Language function intact. Attention span fair. Mood and affect remains somewhat depressed, but improved. No suicidal or homicidal ideation. Laboratory Data: Reviewed. Impression: Major depressive disorder with psychotic features. Anxiety disor heather unspecified. Plan: Continue current psychotropics mentioned in my initial note. Assessment: Vital Signs/I&O: Vital Signs Date Time Temp Pulse Resp B/P (MAP) Pulse Ox O2 Delivery O2 Flow Rate FiO2 09/10/21 06:13 97.1 119 20 104/62 (76) 93 09/09/21 16:03 Room Air I & O 09/09/21 09/09/21 09/10/21 14:59 22:59 06:59 Intake Total 240 ml 240 ml 0 ml Balance 240 ml 240 ml 0 ml Labs: Laboratory Tests Test 09/09/21 07:45 09/09/21 12:07 09/09/21 18:18 09/09/21 19:16 Glucose (Fingerstick) 134 mg/dL (70-99) H 137 mg/dL (70-99) H 130 mg/dL (70-99) H 160 mg/dL (70-99) H Test 09/09/21 19:30 09/09/21 20:44 Glucose (Fingerstick) 149 mg/dL (70-99) H White Blood Count 9.8 x10^3/uL (4.0-11.0) Red Blood Count 3.92 x10^6/uL (4.30-5.70) L Hemoglobin 11.9 g/dL (13.0-17.5) L Hematocrit 36.7 % (39.0-53.0) L Mean Corpuscular Volume 94 fL (79-100) Mean Corpuscular Hemoglobin 30 pg (25-35) Mean Corpuscular Hemoglobin Concent 32 g/dL (31-37) Red Cell Distribution Width 16.6 % (11.5-14.5) H Platelet Count 241 x10^3/uL (140-400) Neutrophils (%) (Auto) 85 % (31-73) H Lymphocytes (%) (Auto) 6 % (24-48) L Monocytes (%) (Auto) 8 % (0-9) Eosinophils (%) (Auto) 1 % (0-3) Basophils (%) (Auto) 0 % (0-3) Neutrophils # (Auto) 8.3 x10^3uL (1.8-7.7) H Lymphocytes # (Auto) 0.6 x10^3/uL (1.0-4.8) L Monocytes # (Auto) 0.8 x10^3/uL (0.0-1.1) Eosinophils # (Auto) 0.1 x10^3/uL (0.0-0.7) Basophils # (Auto) 0.0 x10^3/uL (0.0-0.2) Sodium Level 144 mmol/L (136-145) Potassium Level 4.2 mmol/L (3.5-5.1) Chloride Level 108 mmol/L (98-107) H Carbon Dioxide Level 21 mmol/L (21-32) Anion Gap 15 (6-14) H Blood Urea Nitrogen 39 mg/dL (8-26) H Creatinine 1.3 mg/dL (0.7-1.3) Estimated GFR (Cockcroft-Gault) 55.1 BUN/Creatinine Ratio 30 (6-20) H Glucose Level 141 mg/dL (70-99) H Calcium Level 8.9 mg/dL (8.5-10.1) Total Bilirubin 0.6 mg/dL (0.2-1.0) Aspartate Amino Transferase (AST) 50 U/L (15-37) H Alanine Aminotransferase (ALT) 38 U/L (16-63) Alkaline Phosphatase 94 U/L (46-116) Total Protein 6.4 g/dL (6.4-8.2) Albumin 2.7 g/dL (3.4-5.0) L Albumin/Globulin Ratio 0.7 (1.0-1.7) L Current Medications: Meds: Current Medications Medications (Trade) Dose Ordered Sig/Nicky Route PRN Reason Start Time Stop Time Status Last Admin Dose Admin Ondansetron HCl (Zofran Odt) 4 mg PRN Q4HRS PRN PO NAUSEA/VOMITING 09/09/21 19:45 09/09/21 19:42 I have reviewed the current psychotropics carefully including drug interactions. Risk benefit ratio favors no change other than as noted in my dictated progress note. Diagnosis: Problems: (1) Impulse control disorder, unspecified (2) Anxiety disorder, unspecified (3) Major depressive disorder, recurrent (4) Major depressive disorder, severe (5) Major depressive disorder, recurrent, severe with psychotic features ESE LEVI MD Sep 10, 2021 07:01
--- NOTE | 2021-09-10 07:16 | PDOC ---
Exam Note: Josef Note: This note is a late entry for 09/09/2021 covers elements not covered in my initial note. Subjective: The patient was seen individually on 09/09/2021, discussed and reviewed the chart with Kamran MODI. The patient continues to put himself on the floor. He is in the quiet room, urinated on the floor. His wound was redressed. He has got multiple soft mattresses on the floor but he had pushed himself off the mattresses as I met with him. Nevertheless he stated he was very comfortable. Review of Systems: Ambulation impaired in wheelchair. No CV, , pulmonary, eye, ENT system symptoms on review. He needs transfers with Shyam lift. Complains of chronic pain. Mental Status Exam: The patient is oriented reasonably. Speech coherent has some latency. Abstraction fair. Computation impaired. Language function intact. Attention span short. Mood and affect still somewhat dysphoric. No suicidal or homicidal ideation. Laboratory Data: Reviewed. Impression: Major depressive disorder with psychotic features. Anxiety disorder unspecified. Plan: Continue current psychotropics mentioned in my initial note. Assessment: Vital Signs/I&O: Vital Signs Date Time Temp Pulse Resp B/P (MAP) Pulse Ox O2 Delivery O2 Flow Rate FiO2 09/10/21 06:13 97.1 119 20 104/62 (76) 93 09/09/21 16:03 Room Air I & O 09/09/21 09/09/21 09/10/21 15:00 23:00 07:00 Intake Total 240 ml 240 ml 0 ml Balance 240 ml 240 ml 0 ml Labs: Laboratory Tests Test 09/09/21 07:45 09/09/21 12:07 09/09/21 18:18 09/09/21 19:16 Glucose (Fingerstick) 134 mg/dL (70-99) H 137 mg/dL (70-99) H 130 mg/dL (70-99) H 160 mg/dL (70-99) H Test 09/09/21 19:30 09/09/21 20:44 Glucose (Fingerstick) 149 mg/dL (70-99) H White Blood Count 9.8 x10^3/uL (4.0-11.0) Red Blood Count 3.92 x10^6/uL (4.30-5.70) L Hemoglobin 11.9 g/dL (13.0-17.5) L Hematocrit 36.7 % (39.0-53.0) L Mean Corpuscular Volume 94 fL (79-100) Mean Corpuscular Hemoglobin 30 pg (25-35) Mean Corpuscular Hemoglobin Concent 32 g/dL (31-37) Red Cell Distribution Width 16.6 % (11.5-14.5) H Platelet Count 241 x10^3/uL (140-400) Neutrophils (%) (Auto) 85 % (31-73) H Lymphocytes (%) (Auto) 6 % (24-48) L Monocytes (%) (Auto) 8 % (0-9) Eosinophils (%) (Auto) 1 % (0-3) Basophils (%) (Auto) 0 % (0-3) Neutrophils # (Auto) 8.3 x10^3uL (1.8-7.7) H Lymphocytes # (Auto) 0.6 x10^3/uL (1.0-4.8) L Monocytes # (Auto) 0.8 x10^3/uL (0.0-1.1) Eosinophils # (Auto) 0.1 x10^3/uL (0.0-0.7) Basophils # (Auto) 0.0 x10^3/uL (0.0-0.2) Sodium Level 144 mmol/L (136-145) Potassium Level 4.2 mmol/L (3.5-5.1) Chloride Level 108 mmol/L (98-107) H Carbon Dioxide Level 21 mmol/L (21-32) Anion Gap 15 (6-14) H Blood Urea Nitrogen 39 mg/dL (8-26) H Creatinine 1.3 mg/dL (0.7-1.3) Estimated GFR (Cockcroft-Gault) 55.1 BUN/Creatinine Ratio 30 (6-20) H Glucose Level 141 mg/dL (70-99) H Calcium Level 8.9 mg/dL (8.5-10.1) Total Bilirubin 0.6 mg/dL (0.2-1.0) Aspartate Amino Transferase (AST) 50 U/L (15-37) H Alanine Aminotransferase (ALT) 38 U/L (16-63) Alkaline Phosphatase 94 U/L (46-116) Total Protein 6.4 g/dL (6.4-8.2) Albumin 2.7 g/dL (3.4-5.0) L Albumin/Globulin Ratio 0.7 (1.0-1.7) L Current Medications: Meds: Current Medications Medications (Trade) Dose Ordered Sig/Nicky Route PRN Reason Start Time Stop Time Status Last Admin Dose Admin Ondansetron HCl (Zofran Odt) 4 mg PRN Q4HRS PRN PO NAUSEA/VOMITING 09/09/21 19:45 09/09/21 19:42 I have reviewed the current psychotropics carefully including drug interactions. Risk benefit ratio favors no change other than as noted in my dictated progress note. Diagnosis: Problems: (1) Impulse control disorder, unspecified (2) Anxiety disorder, unspecified (3) Major depressive disorder, recurrent (4) Major depressive disorder, severe (5) Major depressive disorder, recurrent, severe with psychotic features ESE LEVI MD Sep 10, 2021 07:16
[2021-09-10] MEDS: INSULIN LISPRO 300 UNITS/3 ML VIAL. SQ SCH ×3 (08:00→17:00)
[2021-09-10] MEDS: FUROSEMIDE 40 MG TABLET PO SCH (09:45)
[2021-09-10] MEDS: ASPIRIN CHEWABLE 81 MG TABLET. PO SCH (09:45)
[2021-09-10] MEDS: buPROPion XL 300 MG TAB.ER.24H. PO SCH (09:45)
[2021-09-10] MEDS: DOCUSATE SODIUM 100 MG CAPSULE PO SCH ×2 (09:45→20:09)
[2021-09-10] MEDS: DULoxetine HCL 60 MG CAPSULE.DR PO SCH (09:45)
[2021-09-10] MEDS: LINAGLIPTIN 5 MG TABLET PO SCH (09:45)
[2021-09-10] MEDS: CLOPIDOGREL BISULFATE 75 MG TABLET PO SCH (09:45)
[2021-09-10] MEDS: SENNOSIDES/DOCUSATE 8.6/50MG TABLET. PO SCH ×2 (09:46→20:09)
[2021-09-10] MEDS: lamoTRIgine 100 MG TABLET. PO SCH ×2 (09:46→20:09)
[2021-09-10] MEDS: POTASSIUM CHLORIDE 10 MEQ TABLET.ER. PO SCH (09:46)
[2021-09-10] MEDS: MULTIVITAMIN with MINERAL TABLET. PO SCH (09:46)
[2021-09-10] MEDS: CARVEDILOL 12.5 MG TABLET PO SCH ×2 (09:47→17:30)
[2021-09-10] MEDS: NEOMY/BACITR/POLYMYXIN OINT PACKET. TP SCH ×2 (09:47→20:09)
[2021-09-10] MEDS: NYSTATIN TOPICAL POWDER 15GM BOTTLE. TP SCH ×2 (09:48→20:11)
[2021-09-10] MEDS: DULoxetine HCL 30 MG CAPSULE.DR PO SCH (12:15)
[2021-09-10 15:39] VITALS: BP 109/65
[2021-09-10] MEDS: traZODone 50 MG TABLET. PO PRN (20:08)
[2021-09-10] MEDS: MIRTAZAPINE 30 MG TABLET PO SCH (20:09)
[2021-09-10] MEDS: ARIPiprazole 5 MG TABLET PO SCH (20:09)
[2021-09-10] MEDS: oxyCODONE/APAP 10/325 1 TAB TABLET PO PRN (20:09)
[2021-09-10] MEDS: traZODone 100 MG TABLET. PO SCH (20:09)
[2021-09-10] MEDS: ATORVASTATIN CALCIUM 20 MG TABLET PO SCH (20:09)
--- NOTE | 2021-09-10 22:10 | PDOC ---
Exam Note: Josef Note: Please also refer to the separate dictated note~for this date of service dictated separately.~Patient seen individually. Discussed the patient with Nursing staff reviewed the chart.~Reviewed interim history and current functioning. Reviewed vital signs,~Labs/ Radiology~and current medications noted below. Continue current treatment with the changes noted in the dictated addendum note Assessment: Vital Signs/I&O: Vital Signs Date Time Temp Pulse Resp B/P (MAP) Pulse Ox O2 Delivery O2 Flow Rate FiO2 09/10/21 17:30 104 109/65 09/10/21 15:39 97.2 20 97 09/09/21 16:03 Room Air I & O 09/09/21 09/09/21 09/10/21 14:59 22:59 06:59 Intake Total 240 ml 240 ml 0 ml Balance 240 ml 240 ml 0 ml Labs: Laboratory Tests Test 09/10/21 07:46 09/10/21 12:04 09/10/21 16:41 09/10/21 19:00 Glucose (Fingerstick) 127 mg/dL (70-99) H 137 mg/dL (70-99) H 149 mg/dL (70-99) H 120 mg/dL (70-99) H Current Medications: Meds: Laboratory Tests Test 09/10/21 07:46 09/10/21 12:04 09/10/21 16:41 09/10/21 19:00 Glucose (Fingerstick) 127 mg/dL 137 mg/dL 149 mg/dL 120 mg/dL Current Medications Medications (Trade) Dose Ordered Sig/Nicky Route PRN Reason Start Time Stop Time Status Last Admin Dose Admin Acetaminophen (Tylenol) 650 mg PRN Q6HRS PRN PO mild pain/temp >100.3 F 08/05/21 16:30 09/09/21 09:26 Aripiprazole (Abilify) 10 mg DAILY PO 08/06/21 09:00 08/21/21 10:13 DC 08/21/21 08:25 Aspirin (Aspirin Chewable) 81 mg DAILY PO 08/06/21 09:00 09/10/21 09:45 Bupropion HCl (Wellbutrin Xl) 150 mg DAILY PO 08/06/21 09:00 09/04/21 10:46 DC 09/04/21 08:23 Clopidogrel Bisulfate (Plavix) 75 mg DAILY PO 08/06/21 09:00 09/10/21 09:45 Docusate Sodium (Colace) 100 mg BID PO 08/05/21 21:00 09/10/21 20:09 Duloxetine HCl (Cymbalta) 30 mg AFTRNOON PO 08/06/21 13:00 09/10/21 12:15 Duloxetine HCl (Cymbalta) 60 mg DAILY PO 08/06/21 09:00 09/10/21 09:45 Furosemide (Lasix) 40 mg DAILY PO 08/06/21 09:00 09/10/21 09:45 Lamotrigine (LaMICtal) 150 mg QHS PO 08/05/21 21:00 08/14/21 10:06 DC 08/13/21 19:55 Linagliptin (Tradjenta) 5 mg DAILY PO 08/06/21 09:00 09/10/21 09:45 Al Hydroxide/Mg Hydroxide (Mylanta Plus Xs) 15 ml PRN AFTMEALHC PRN PO DYSPEPSIA 08/05/21 16:30 08/26/21 12:36 Magnesium Citrate (Citroma) 296 ml PRN 1X PRN PO 2nd choice constipation 08/05/21 16:30 08/12/21 07:19 DC 08/11/21 18:33 Mirtazapine (Remeron) 30 mg HS PO 08/05/21 21:00 09/10/21 20:09 Neomycin/ Polymyxin/ Bacitracin (Triple Antibiotic Ointment) 1 pkt BID TP 08/05/21 21:00 09/10/21 20:09 Nystatin (Nystop) 1 neelima BID TP 08/05/21 21:00 09/10/21 20:11 Olanzapine (ZyPREXA ZYDIS) 2.5 mg PRN Q2HRS PRN PO psychosis/agitation 08/05/21 16:30 09/07/21 01:14 Oxycodone/ Acetaminophen (Percocet 10/325) 1 tab PRN Q6HRS PRN PO MODERATE TO SEVERE PAIN 08/05/21 16:30 09/10/21 20:09 Potassium Chloride (Klor-Con) 30 meq DAILY PO 08/06/21 09:00 09/10/21 09:46 Trazodone HCl (Desyrel) 50 mg PRN QHS PRN PO INSOMNIA 08/05/21 16:30 09/10/21 20:08 Trazodone HCl (Desyrel) 100 mg HS PO 08/05/21 21:00 09/10/21 20:09 Trolamine Salicylate (Myoplex) 1 neelima PRN QID PRN TP muscle pain 08/05/21 16:30 UNV Atorvastatin Calcium (Lipitor) 80 mg QHS PO 08/05/21 21:00 09/10/21 20:09 Carvedilol (Coreg) 37.5 mg BIDWMEALS PO 08/05/21 17:00 09/10/21 17:30 Non-Formulary Medication (Insulin Lispro (Humalog)) 0-5 Units, low dose scale. TIDWMEALS SQ 08/05/21 17:00 UNV Multivitamins/ Calcium (Thera-M Plus) 1 tab DAILY PO 08/06/21 09:00 09/10/21 09:46 Multi-Ingredient Ointment (Analgesic [place]) 1 neelima PRN QID PRN TP MUSCLE PAIN 08/05/21 17:00 Insulin Human Lispro (HumaLOG) 0-5 UNITS TIDWMEALS SQ 08/05/21 17:00 08/10/21 13:08 Dextrose (Dextrose 50%-Water Syringe) 12.5 gm PRN Q15MIN PRN IV SEE COMMENTS 08/05/21 17:00 Magnesium Hydroxide (Milk Of Magnesia) 2,400 mg PRN QHS PRN PO CONSTIPATION 08/08/21 22:15 09/04/21 20:45 Senna/Docusate Sodium (Senna Plus) 1 tab PRN BID PRN PO 2nd choice CONSTIPATION 08/12/21 15:30 08/22/21 13:50 DC 08/20/21 20:29 Lamotrigine (LaMICtal) 200 mg QHS PO 08/14/21 21:00 08/19/21 17:54 DC 08/18/21 20:25 Lamotrigine (LaMICtal) 150 mg QHS PO 08/19/21 21:00 09/10/21 20:09 Lamotrigine (LaMICtal) 100 mg DAILY PO 08/20/21 09:00 08/28/21 09:00 DC 08/28/21 09:14 Aripiprazole (Abilify) 5 mg HS PO 08/22/21 21:00 09/10/21 20:09 Senna/Docusate Sodium (Senna Plus) 1 tab BID PO 08/22/21 21:00 09/10/21 20:09 Lamotrigine (LaMICtal) 150 mg DAILY PO 08/29/21 09:00 09/10/21 09:46 Bupropion HCl (Wellbutrin Xl) 300 mg DAILY PO 09/05/21 09:00 09/10/21 09:45 Ondansetron HCl (Zofran Odt) 4 mg PRN Q4HRS PRN PO NAUSEA/VOMITING 09/09/21 19:45 09/09/21 19:42 I have reviewed the current psychotropics carefully including drug interactions. Risk benefit ratio favors no change other than as noted in my dictated progress note. Diagnosis: Problems: (1) Impulse control disorder, unspecified (2) Anxiety disorder, unspecified (3) Major depressive disorder, severe (4) Major depressive disorder, recurrent, severe with psychotic features ESE LEVI MD Sep 10, 2021 22:10
[2021-09-11] MEDS ORDERED: LAMO150T3 PO (02:52)
[2021-09-11] MEDS ORDERED: ONDA4TAB12 PO (02:59)
[2021-09-11] MEDS ORDERED: SENN1TAB99 PO (03:05)
[2021-09-11] MEDS ORDERED: MAGN24003 PO (03:07)
[2021-09-11 05:53] VITALS: BP 104/63
[2021-09-11] MEDS: INSULIN LISPRO 300 UNITS/3 ML VIAL. SQ SCH (08:00)
[2021-09-11] MEDS: SENNOSIDES/DOCUSATE 8.6/50MG TABLET. PO SCH (10:20)
[2021-09-11] MEDS: DOCUSATE SODIUM 100 MG CAPSULE PO SCH (10:20)
[2021-09-11] MEDS: DULoxetine HCL 60 MG CAPSULE.DR PO SCH (10:20)
[2021-09-11] MEDS: MULTIVITAMIN with MINERAL TABLET. PO SCH (10:20)
[2021-09-11] MEDS: POTASSIUM CHLORIDE 10 MEQ TABLET.ER. PO SCH (10:20)
[2021-09-11] MEDS: LINAGLIPTIN 5 MG TABLET PO SCH (10:20)
[2021-09-11] MEDS: buPROPion XL 300 MG TAB.ER.24H. PO SCH (10:20)
[2021-09-11] MEDS: CLOPIDOGREL BISULFATE 75 MG TABLET PO SCH (10:20)
[2021-09-11] MEDS: ASPIRIN CHEWABLE 81 MG TABLET. PO SCH (10:21)
[2021-09-11] MEDS: lamoTRIgine 100 MG TABLET. PO SCH (10:21)
[2021-09-11] MEDS: NEOMY/BACITR/POLYMYXIN OINT PACKET. TP SCH (10:21)
[2021-09-11] MEDS: NYSTATIN TOPICAL POWDER 15GM BOTTLE. TP SCH (10:21)
--- NOTE | 2021-09-11 21:44 | PDOC ---
Exam Note: Josef Note: Please also refer to the separate dictated note~for this date of service dictated separately.~Patient seen individually. Discussed the patient with Nursing staff reviewed the chart.~Reviewed interim history and current functioning. Reviewed vital signs,~Labs/ Radiology~and current medications noted below. Continue current treatment with the changes noted in the dictated addendum note Assessment: Vital Signs/I&O: Vital Signs Date Time Temp Pulse Resp B/P (MAP) Pulse Ox O2 Delivery O2 Flow Rate FiO2 09/11/21 05:53 97.6 112 22 104/63 (77) 98 Room Air I & O 09/10/21 09/10/21 09/11/21 15:00 23:00 07:00 Intake Total 540 ml 120 ml Balance 540 ml 120 ml Labs: Laboratory Tests Test 09/11/21 07:25 Glucose (Fingerstick) 131 mg/dL (70-99) H Current Medications: Meds: Laboratory Tests Test 09/11/21 07:25 Glucose (Fingerstick) 131 mg/dL Current Medications Medications (Trade) Dose Ordered Sig/Nicky Route PRN Reason Start Time Stop Time Status Last Admin Dose Admin Acetaminophen (Tylenol) 650 mg PRN Q6HRS PRN PO mild pain/temp >100.3 F 08/05/21 16:30 09/11/21 11:37 DC 09/09/21 09:26 Aripiprazole (Abilify) 10 mg DAILY PO 08/06/21 09:00 08/21/21 10:13 DC 08/21/21 08:25 Aspirin (Aspirin Chewable) 81 mg DAILY PO 08/06/21 09:00 09/11/21 11:37 DC 09/11/21 10:21 Bupropion HCl (Wellbutrin Xl) 150 mg DAILY PO 08/06/21 09:00 09/04/21 10:46 DC 09/04/21 08:23 Clopidogrel Bisulfate (Plavix) 75 mg DAILY PO 08/06/21 09:00 09/11/21 11:37 DC 09/11/21 10:20 Docusate Sodium (Colace) 100 mg BID PO 08/05/21 21:00 09/11/21 11:37 DC 09/11/21 10:20 Duloxetine HCl (Cymbalta) 30 mg AFTRNOON PO 08/06/21 13:00 09/11/21 11:37 DC 09/10/21 12:15 Duloxetine HCl (Cymbalta) 60 mg DAILY PO 08/06/21 09:00 09/11/21 11:37 DC 09/11/21 10:20 Furosemide (Lasix) 40 mg DAILY PO 08/06/21 09:00 09/10/21 22:57 DC 09/10/21 09:45 Lamotrigine (LaMICtal) 150 mg QHS PO 08/05/21 21:00 08/14/21 10:06 DC 08/13/21 19:55 Linagliptin (Tradjenta) 5 mg DAILY PO 08/06/21 09:00 09/11/21 11:37 DC 09/11/21 10:20 Al Hydroxide/Mg Hydroxide (Mylanta Plus Xs) 15 ml PRN AFTMEALHC PRN PO DYSPEPSIA 08/05/21 16:30 09/11/21 11:37 DC 08/26/21 12:36 Magnesium Citrate (Citroma) 296 ml PRN 1X PRN PO 2nd choice constipation 08/05/21 16:30 08/12/21 07:19 DC 08/11/21 18:33 Mirtazapine (Remeron) 30 mg HS PO 08/05/21 21:00 09/11/21 11:37 DC 09/10/21 20:09 Neomycin/ Polymyxin/ Bacitracin (Triple Antibiotic Ointment) 1 pkt BID TP 08/05/21 21:00 09/11/21 11:37 DC 09/11/21 10:21 Nystatin (Nystop) 1 neelima BID TP 08/05/21 21:00 09/11/21 11:37 DC 09/11/21 10:21 Olanzapine (ZyPREXA ZYDIS) 2.5 mg PRN Q2HRS PRN PO psychosis/agitation 08/05/21 16:30 09/11/21 11:37 DC 09/07/21 01:14 Oxycodone/ Acetaminophen (Percocet 10/325) 1 tab PRN Q6HRS PRN PO MODERATE TO SEVERE PAIN 08/05/21 16:30 09/11/21 11:37 DC 09/10/21 20:09 Potassium Chloride (Klor-Con) 30 meq DAILY PO 08/06/21 09:00 09/11/21 11:37 DC 09/11/21 10:20 Trazodone HCl (Desyrel) 50 mg PRN QHS PRN PO INSOMNIA 08/05/21 16:30 09/11/21 11:37 DC 09/10/21 20:08 Trazodone HCl (Desyrel) 100 mg HS PO 08/05/21 21:00 09/11/21 11:37 DC 09/10/21 20:09 Trolamine Salicylate (Myoplex) 1 neelima PRN QID PRN TP muscle pain 08/05/21 16:30 UNV Atorvastatin Calcium (Lipitor) 80 mg QHS PO 08/05/21 21:00 09/11/21 11:38 DC 09/10/21 20:09 Carvedilol (Coreg) 37.5 mg BIDWMEALS PO 08/05/21 17:00 09/10/21 22:57 DC 09/10/21 17:30 Non-Formulary Medication (Insulin Lispro (Humalog)) 0-5 Units, low dose scale. TIDWMEALS SQ 08/05/21 17:00 UNV Multivitamins/ Calcium (Thera-M Plus) 1 tab DAILY PO 08/06/21 09:00 09/11/21 11:38 DC 09/11/21 10:20 Multi-Ingredient Ointment (Analgesic [place]) 1 neelima PRN QID PRN TP MUSCLE PAIN 08/05/21 17:00 09/11/21 11:38 DC Insulin Human Lispro (HumaLOG) 0-5 UNITS TIDWMEALS SQ 08/05/21 17:00 09/11/21 11:38 DC 08/10/21 13:08 Dextrose (Dextrose 50%-Water Syringe) 12.5 gm PRN Q15MIN PRN IV SEE COMMENTS 08/05/21 17:00 09/11/21 11:38 DC Magnesium Hydroxide (Milk Of Magnesia) 2,400 mg PRN QHS PRN PO CONSTIPATION 08/08/21 22:15 09/11/21 11:38 DC 09/04/21 20:45 Senna/Docusate Sodium (Senna Plus) 1 tab PRN BID PRN PO 2nd choice CONSTIPATION 08/12/21 15:30 08/22/21 13:50 DC 08/20/21 20:29 Lamotrigine (LaMICtal) 200 mg QHS PO 08/14/21 21:00 08/19/21 17:54 DC 08/18/21 20:25 Lamotrigine (LaMICtal) 150 mg QHS PO 08/19/21 21:00 09/11/21 11:38 DC 09/10/21 20:09 Lamotrigine (LaMICtal) 100 mg DAILY PO 08/20/21 09:00 08/28/21 09:00 DC 08/28/21 09:14 Aripiprazole (Abilify) 5 mg HS PO 08/22/21 21:00 09/11/21 11:38 DC 09/10/21 20:09 Senna/Docusate Sodium (Senna Plus) 1 tab BID PO 08/22/21 21:00 09/11/21 11:38 DC 09/11/21 10:20 Lamotrigine (LaMICtal) 150 mg DAILY PO 08/29/21 09:00 09/11/21 11:38 DC 09/11/21 10:21 Bupropion HCl (Wellbutrin Xl) 300 mg DAILY PO 09/05/21 09:00 09/11/21 11:38 DC 09/11/21 10:20 Ondansetron HCl (Zofran Odt) 4 mg PRN Q4HRS PRN PO NAUSEA/VOMITING 09/09/21 19:45 09/11/21 11:38 DC 09/09/21 19:42 I have reviewed the current psychotropics carefully including drug interactions. Risk benefit ratio favors no change other than as noted in my dictated progress note. Diagnosis: Problems: (1) Impulse control disorder, unspecified (2) Anxiety disorder, unspecified (3) Major depressive disorder, severe (4) Major depressive disorder, recurrent, severe with psychotic features ESE LEVI MD Sep 11, 2021 21:44
--- NOTE | 2021-09-11 22:54 | DS ---
DATE OF DISCHARGE: 09/11/2021 DISCHARGE SUMMARY/PSYCHIATRIC PROGRESS NOTE REASON FOR ADMISSION: Please refer to the admission history for details, but briefly the patient is a 66-year-old male referred back to us from [facility] on account of refusing to eat and to deliberately "____ his blood sugars." He was putting himself on the floor, being verbally aggressive towards staff, was depressed, anxious. He expressed suicidal ideation, texting his son, expressing plan to kill himself. He had failed outpatient psychiatric interventions, prior psychiatric hospitalization and behavior is deemed dangerous, unmanageable and referred for inpatient psychiatric stabilization. SIGNIFICANT FINDINGS AND CLINICAL COURSE: Following admission, the patient was seen daily individually by myself from a psychiatric standpoint, medical followup Dr. Gandhi/Dr. Hendrickson. The patient's hospitalization was prolonged inordinately on account of repeated COVID becoming positive on the unit and quarantine being initiated because of that for which discharge could not occur. Initially, he appears sad, depressed, anxious, irritable, minimized suicidal ideation. Adjustments were made in his psychotropics. He seemed to respond to a combination of Cymbalta 60 mg at 0900, 30 mg at 1300; trazodone 100 mg at bedtime, 50 mg at bedtime p.r.n. insomnia. Wellbutrin-XL 300 mg a day, Abilify 5 mg a day to augment the Cymbalta, Lamictal 150 mg twice a day as a mood stabilizer, Remeron 30 mg at bedtime, Zyprexa p.r.n. prior to discharge on 09/11. REVIEW OF SYSTEMS: Ambulation impaired, in wheelchair. No CV, , pulmonary, eye system symptoms on review. MENTAL STATUS EXAMINATION: Reasonably oriented. Speech is coherent, has some latency. Abstraction fair. Computation impaired. Language function intact. Attention span short. Mood and affect remains dysphoric, but improved, but denies suicidal ideation at discharge. FINAL DIAGNOSES: Major depressive disorder, recurrent; anxiety disorder, unspecified; impulse control disorder. Rest unchanged from admission. DISCHARGE MEDICATIONS: Please refer to the [facility]. DISCHARGE INSTRUCTIONS: [facility]patient psychiatric and [facility] at [facility]. SEB/ABIGAIL/WILL DR: SEB/luis TID: [id number]
--- NOTE | 2021-09-12 08:09 | PDOC ---
Exam Note: Josef Note: This note is a late entry for 09/10/2021 covers elements not covered in my initial note. Subjective: The patient was seen individually on 09/10/2021, discussed and reviewed the chart with Hadley MODI. The patient slept 3-1/4 hours previous night. Previous evening he was helpless. Oral intake is poor according to Isidra MODI the night nurse. He has been picking on his wound, had some coffee- ground emesis, will defer to Dr. Gandhi/Dr. Hendrickson for medical follow up. I met with him in his room in the evening at some length. His airbed had deflated and he was in a very uncomfortable position till it was switched on again at my behest by the nursing staff. He is anxious, restless, depressed but denies suicidal ideation. Review of Systems: Ambulation impaired in wheelchair. No CV, , pulmonary, eye, ENT system symptoms on review. He needs transfers with [facility]. Complains of chronic pain. Mental Status Exam: The patient is oriented to himself and situation. He is very pleasant with me, distractible. Speech coherent has some latency. Abstraction fair. Computation impaired. Language function intact. Attention span short. Mood and affect dysphoric, anxious. No suicidal or homicidal i deation. Laboratory Data: Reviewed. Impression: Major depressive disorder with psychotic features. Anxiety disorder unspecified. Plan: Continue current psychotropics mentioned in my initial note. Assessment: Vital Signs/I&O: Vital Signs Date Time Temp Pulse Resp B/P (MAP) Pulse Ox O2 Delivery O2 Flow Rate FiO2 09/11/21 05:53 97.6 112 22 104/63 (77) 98 Room Air I & O 09/11/21 09/11/21 09/12/21 15:00 23:00 07:00 Intake Total 240 ml Balance 240 ml Current Medications: I have reviewed the current psychotropics carefully including drug interactions. Risk benefit ratio favors no change other than as noted in my dictated progress note. Diagnosis: Problems: (1) Impulse control disorder, unspecified (2) Anxiety disorder, unspecified (3) Major depressive disorder, recurrent AMITA,MAN Patric Sep 12, 2021 08:09
== END 2021-09-11 11:15 | DRG 885 ==
LOC: GEROPSY 16:20
PROVIDERS: ADMIT Psychiatry & Neurology Psychiatry; ATTEND Psychiatry & Neurology Psychiatry
DX: F33.3 Major depressive disorder, recurrent, severe with psychotic symptoms (principal); N18.30 Chronic kidney disease, stage 3 unspecified; I13.0 Hypertensive heart and chronic kidney disease with heart failure and stage 1 through stage 4 chronic kidney disease, or unspecified chronic kidney disease; E11.22 Type 2 diabetes mellitus with diabetic chronic kidney disease; E66.9 Obesity, unspecified; F41.1 Generalized anxiety disorder; F60.9 Personality disorder, unspecified; F63.9 Impulse disorder, unspecified; G47.00 Insomnia, unspecified; I25.10 Atherosclerotic heart disease of native coronary artery without angina pectoris; I50.9 Heart failure, unspecified; L89.619 Pressure ulcer of right heel, unspecified stage; M17.0 Bilateral primary osteoarthritis of knee; Z79.899 Other long term (current) drug therapy; Z86.73 Personal history of transient ischemic attack (TIA), and cerebral infarction without residual deficits; Z91.81 History of falling
CPT/HCPCS: 36415; 73630; 74176; 80053; 80061; 81001; 82306; 82607; 82947; 83036; 83540; 83550; 83735; 84436; 84443; 84480; 85025; 85379; 86592; 93005; J1815; Q0162